=== PATIENT | female | born 1945 | race Caucasian/White ===

== ENCOUNTER 2023-04-06 13:36 | Outpatient (OUT) | payer MEDICARE, SELFPAY ==
--- NOTE | 2023-04-06 13:41 | MM_ITS ---
Patient: NAT REYNAGA Exam Date: 04/06/2023 : 1945 Gender:F Ordering : DR IMER ALVAREZ Admission #: [id number] Family : Order #: [id number] CLICK HERE TO VIEW EXAM RADIOLOGY REPORT PROCEDURE: MM TOMOSYNTHESIS SCREENING BI COMPARISON: MG MAMM SCREEN 3D RUPAL CAD, 03/27/2022. INDICATIONS: Screening mammogram Z12.31 Calculator Name NCI Breast Cancer Risk Assessment Tool 5 Year Breast Cancer Risk 1.60% Lifetime Breast Cancer Risk 3.10% Personal Breast Cancer No Personal Ovarian Cancer No Treatments None Family Cancers None LOCATION: [facility] BREAST COMPOSITION: Almost entirely fatty. FINDINGS: DIAGNOSTIC CATEGORY 1--NEGATIVE. RIGHT BREAST: No significant suspicious finding. No significant change has occurred. LEFT BREAST: No significant suspicious finding. No significant change has occurred. RECOMMENDATIONS: ROUTINE MAMMOGRAM AND CLINICAL EVALUATION IN 12 MONTHS. PLEASE NOTE: A NORMAL MAMMOGRAM DOES NOT EXCLUDE THE POSSIBILITY OF BREAST CANCER. A CLINICALLY SUSPICIOUS PALPABLE LUMP SHOULD BE BIOPSIED. Dictated by: Hiro Tran M.D. on 04/06/2023 at 15:37 Approved by: Hiro Tran M.D. on 04/06/2023 at 15:39
== END 2023-04-06 13:37 ==
LOC: MAMMO 13:36
PROVIDERS: PCP Internal Medicine; Visit Provider Internal Medicine
DX: Z12.31 Encounter for screening mammogram for malignant neoplasm of breast (principal)
CPT/HCPCS: 77063; 77067

== ENCOUNTER 2023-05-25 16:37 | Outpatient (OUT) | payer MEDICARE, SELFPAY ==
[2023-05-25 17:03] LABS: Bilirubin Urine NEGATIVE (NEGATIVE); Blood Urine TRACE-I (NEGATIVE); Clarity Urine CLEAR (CLEAR); Color Urine LT. YELLOW (YELLOW); Glucose Urine UA NEGATIVE (NEGATIVE); Ketones Urine NEGATIVE (NEGATIVE); Leukocyte Esterase Urine NEGATIVE (NEGATIVE); Nitrite Urine NEGATIVE (NEGATIVE); Protein Urine NEGATIVE (NEG/TRACE); Specific Gravity Urine 1.015 (1.005-1.025); Urobilinogen Urine 0.2 EU/dL (0.2-1.0); pH Urine 5.5 (5.0-9.0)
[2023-05-25 17:10] LABS: RBC Urine 0-2 #/HPF (0-2); WBC Urine NONE SEEN #/HPF (NONE SEEN)
[2023-05-25 17:11] LABS: Bacteria Urine TRACE #/HPF (NONE SEEN); Cast Seen? NONE SEEN #/LPF (NONE SEEN); Crystals Seen? None Seen #/HPF (None Seen); Mucus Urine NONE SEEN (NONE SEEN); Squamous Epithelial Cell Urine FEW #/LPF (NONE/RARE)
== END 2023-05-25 16:38 | disposition home or self-care (01) ==
LOC: LAB 16:37
PROVIDERS: PCP Internal Medicine
DX: R35.0 Frequency of micturition (principal)
CPT/HCPCS: 81001; 87086

== ENCOUNTER 2023-08-27 11:55 | Emergency (ER) | payer MEDICARE, SELFPAY ==
[2023-08-27 12:07] VITALS: BP 131/80; PULSE 56; RESP 16; TEMP 36.8; O2SAT 99; BMI 26.0
--- NOTE | 2023-08-27 12:12 | XR_ITS ---
The [address] [address] Patient Name: NAT REYNAGA MRN: [id number] date: 1945 Sex: F Assigned Patient Location: ED.MAIN Current Patient Location: ER Accession/Order Number: [id number] Exam Date: 08/27/2023 12:25 Report Date: 08/27/2023 12:45 At the request of: IMER OCHOA Procedure: XR wrist LT min 3V PROCEDURE: XR wrist LT min 3V HISTORY: fall wrist pain COMPARISON: None. FINDINGS: BONES:Nondisplaced fracture of the radial ulnar styloid process with extension into the articular surface. Unremarkable ulna and ulnar styloid process. Intact appearance of the carpal bones and radiocarpal joint. SOFT TISSUES:No visible soft tissue swelling. EFFUSION:None visible. OTHER: Negative. XR/XR wrist LT min 3V IMPRESSION: 1. Acute, nondisplaced fracture of the radial styloid process. Electronically authenticated by: JOSE ALLEN Date: 08/27/2023 12:45
--- NOTE | 2023-08-27 13:00 | PC.NURSE ---
pt has visible swelling noted to left wrist, pt c/o pain but does not give pain describing number associated.
[2023-08-27 13:14] VITALS: BP 136/88; PULSE 60; RESP 16; O2SAT 98
--- NOTE | 2023-08-27 13:27 | ED_ITS ---
Documented by User: SPIKE Dewitt 08/27/23 14:06 HPI - Extremity Injury (Upper) General Chief Complaint: Fall Stated Complaint: UPPER EXTREMITY INJURY TO LEFT WRIST Time Seen by Provider: 08/27/23 13:10 Source: patient and family Mode of arrival: walk-in Limitations: no limitations History of Present Illness HPI narrative: patient is a 78-year-old female presents the emergency department with her family member for the evaluation of left wrist pain after a fall. Patient has a history of brain injury/dementia and her daughter cares for her. Patient was attempting to walk to her daughter's home in between a car and the garage and fell, injuring her left wrist. Family member states that she watched the camera footage outside the home showing that the patient fell with an outstretched left wrist, possibly against the vehicle and possibly on the ground, she did not appear to have a head injury and definitely had no loss of consciousness. She is ambulating without difficulty. Family member has not noticed any evidence of head injury, patient is on Plavix, there have been no areas of bleeding. Patient has not complained of pain anywhere else. No medications given prior to arrival other than regular Tylenol. Patient is right-hand dominant. Related Data Previous Rx's Medication Instructions Recorded tramadol 50 mg tablet 50 mg PO Q4H PRN pain #15 tabs 08/27/23 Allergies Allergy/AdvReac Type Severity Reaction Status Date / Time codeine Allergy Unknown Verified 08/27/23 12:11 Sulfa (Sulfonamide Allergy Verified 08/27/23 12:11 Antibiotics) Review of Systems ROS Constitutional Denies: fever or chills Ears, nose, mouth, and throat Denies: dry mouth Cardiovascular Denies: chest pain Respiratory Denies: shortness of breath Gastrointestinal Denies: nausea or vomiting Musculoskeletal Reports: extremity pain; Denies: back pain or neck pain Neurological Denies: headache Hematologic/Lymphatic Reports: easy bruising and easy bleeding PFSH PFSH Social History Smoking status: Former smoker Exam Narrative Exam Narrative: Gen.: Awake, alert, in no distress; sitting comfortably in a bedside chair with left arm propped on a pillow Head: Normocephalic, atraumatic ENT: Moist mucous membranes; no evidence of head or facial injury, C-spine is nontender Respiratory: No respiratory distress, lungs clear bilaterally Cardio: Regular rate and rhythm Gastrointestinal: pelvis is stable, hips nontender Back: No bony tenderness of the T-spine or L-spine Extremities: left wrist is mildly edematous, limited flexion and extension at the left wrist, no obvious deformity. 2+ left radial pulse. Psych: Normal mood and affect Neuro: at mental baseline Skin: Warm, dry, intact Constitutional Vital Signs, click to edit/add: Last Vital Signs Temp 98.2 F 08/27/23 12:07 Pulse 60 08/27/23 13:14 Resp 16 08/27/23 13:14 BP 136/88 08/27/23 13:14 Pulse Ox 98 08/27/23 13:14 O2 Del Method Room Air 08/27/23 13:14 Course Vital Signs Vital signs: Vital Signs Temperature 98.2 F 08/27/23 12:07 Pulse Rate 56 L 08/27/23 12:07 Respiratory Rate 16 08/27/23 12:07 Blood Pressure 131/80 08/27/23 12:07 Pulse Oximetry 99 08/27/23 12:07 Oxygen Delivery Method Room Air 08/27/23 12:07 Temperature 98.2 F 08/27/23 12:07 Pulse Rate 60 08/27/23 13:14 Respiratory Rate 16 08/27/23 13:14 Blood Pressure 136/88 08/27/23 13:14 Pulse Oximetry 98 08/27/23 13:14 Oxygen Delivery Method Room Air 08/27/23 13:14 MDM - Extremity Injury (Upper) MDM Narrative Medical decision making narrative: x-rays with nondisplaced radial styloid fracture. Patient's family member requested that due to her functioning and need for care in the home, the patient be placed only in a Velcro wrist splint. She will follow closely with orthopedics, patient has a previous wrist fracture and family member states that she was treated conservatively with a Velcro wrist splint and did very well. She did not tolerate a cast/OCL splint. As the fracture is nondisplaced, this is appropriate and a Velcro wrist and was placed at her request. Patient was provided with copies of her x-rays as well as a dictated report. Follow-up with orthopedics and return to the Emergency Room if symptoms change or worsen. Prescription of tramadol was given for home if needed, although daughter states that typically the patient tolerates Tylenol without difficulty. She is neurovascularly intact at discharge. Medical Records Attestation: I reviewed the patient's medical records. Imaging Data XR wrist: Attestation: I have reviewed the pertinent imaging results. Radiologist's impression: Procedure: XR wrist LT min 3V PROCEDURE: XR wrist LT min 3V HISTORY: fall wrist pain COMPARISON: None. FINDINGS: BONES:Nondisplaced fracture of the radial ulnar styloid process with extension into the articular surface. Unremarkable ulna and ulnar styloid process. Intact appearance of the carpal bones and radiocarpal joint. SOFT TISSUES:No visible soft tissue swelling. EFFUSION:None visible. OTHER: Negative. IMPRESSION: 1. Acute, nondisplaced fracture of the radial styloid process. Electronically authenticated by: HIRO ALLEN Date: 08/27/2023 12:45 Discharge Plan Discharge Chief Complaint: Fall Clinical Impression: Closed fracture of radial styloid Patient Disposition: Home, Self-Care Time of Disposition Decision: 13:24 Condition: Good Prescriptions / Home Meds: New tramadol 50 mg tablet 50 mg PO Q4H PRN (Reason: pain) Qty: 15 0RF Rx Instructions: DX: M25.532 Instructions: Wrist Fracture in Adults (ED) Stand Alone Forms: Portal Instructions Referrals: IMER ALVAREZ [Primary Care Provider] - 1 week Hiro Ruiz MD [Physician] - 1 week Discharge Date/Time: 08/27/23 13:39 Documented by User: Imer Luna MD 08/27/23 16:14 HPI - Extremity Injury (Upper) General Chief Complaint: Fall Stated Complaint: UPPER EXTREMITY INJURY TO LEFT WRIST Time Seen by Provider: 08/27/23 13:10 Related Data Previous Rx's Medication Instructions Recorded tramadol 50 mg tablet 50 mg PO Q4H PRN pain #15 tabs 08/27/23 Allergies Allergy/AdvReac Type Severity Reaction Status Date / Time codeine Allergy Unknown Verified 08/27/23 12:11 Sulfa (Sulfonamide Allergy Verified 08/27/23 12:11 Antibiotics) PFSH PFS Social History Smoking status: Former smoker Exam Constitutional Vital Signs, click to edit/add: Last Vital Signs Temp 98.2 F 08/27/23 12:07 Pulse 60 08/27/23 13:14 Resp 16 08/27/23 13:14 BP 136/88 08/27/23 13:14 Pulse Ox 98 08/27/23 13:14 O2 Del Method Room Air 08/27/23 13:14 Course Vital Signs Vital signs: Vital Signs Temperature 98.2 F 08/27/23 12:07 Pulse Rate 56 L 08/27/23 12:07 Respiratory Rate 16 08/27/23 12:07 Blood Pressure 131/80 08/27/23 12:07 Pulse Oximetry 99 08/27/23 12:07 Oxygen Delivery Method Room Air 08/27/23 12:07 Temperature 98.2 F 08/27/23 12:07 Pulse Rate 60 08/27/23 13:14 Respiratory Rate 16 08/27/23 13:14 Blood Pressure 136/88 08/27/23 13:14 Pulse Oximetry 98 08/27/23 13:14 Oxygen Delivery Method Room Air 08/27/23 13:14 MDM - Extremity Injury (Upper) MDM Narrative Medical decision making narrative: x-rays with nondisplaced radial styloid fracture. Patient's family member requested that due to her functioning and need for care in the home, the patient be placed only in a Velcro wrist splint. She will follow closely with orthopedics, patient has a previous wrist fracture and family member states that she was treated conservatively with a Velcro wrist splint and did very well Patient would like to see Dr. Montes in the past, name and number are provided.. She did not tolerate a cast/OCL splint. As the fracture is nondisplaced, this is appropriate and a Velcro wrist and was placed at her reque st. Patient was provided with copies of her x-rays as well as a dictated report. Follow-up with orthopedics and return to the Emergency Room if symptoms change or worsen. Prescription of tramadol was given for home if needed, although daughter states that typically the patient tolerates Tylenol without difficulty. She is neurovascularly intact at discharge. I, Dr Luna, have reviewed the above progress note and course of action in the ER; agree with the above. I have personally seen and evaluated this patient, gone over history and physical, and discussed disposition and treatment plan with the patient. Discharge Plan Discharge Chief Complaint: Fall Clinical Impression: Closed fracture of radial styloid Patient Disposition: Home, Self-Care Time of Disposition Decision: 13:24 Condition: Good Prescriptions / Home Meds: New tramadol 50 mg tablet 50 mg PO Q4H PRN (Reason: pain) Qty: 15 0RF Rx Instructions: DX: M25.532 Instructions: Wrist Fracture in Adults (ED) Stand Alone Forms: Portal Instructions Referrals: IMER ALVAREZ [Primary Care Provider] - 1 week Hiro Ruiz MD [Physician] - 1 week Discharge Date/Time: 08/27/23 13:39
== END 2023-08-27 13:39 | disposition home or self-care (01) ==
PROVIDERS: Emergency Provider Emergency Medicine; PCP Internal Medicine
DX: S52.515A Nondisplaced fracture of left radial styloid process, initial encounter for closed fracture (principal); W19.XXXA Unspecified fall, initial encounter; F03.90 Unspecified dementia, unspecified severity, without behavioral disturbance, psychotic disturbance, mood disturbance, and anxiety; Z79.02 Long term (current) use of antithrombotics/antiplatelets; Z87.891 Personal history of nicotine dependence
CPT/HCPCS: 73110; 99283

== ENCOUNTER 2023-08-28 14:56 | Outpatient (OUT) | payer MEDICARE, SELFPAY ==
[2023-08-28 16:05] LABS: Free T4 0.81 ng/dL (0.76-1.46)
[2023-08-28 16:06] LABS: Free T3 1.61 pg/mL (2.18-3.98); Thyroid Stimulating Hormone 1.001 uIU/mL (0.358-3.740)
== END 2023-08-28 14:57 | disposition home or self-care (01) ==
LOC: LAB 14:56
PROVIDERS: PCP Internal Medicine
DX: E03.9 Hypothyroidism, unspecified (principal)
CPT/HCPCS: 36415; 84439; 84443; 84481

== ENCOUNTER 2024-02-22 18:01 | Inpatient (IN) | payer MEDICARE, SELFPAY ==
[2024-02-22] VITALS (19 sets, daily range): BP systolic 129–144; BP diastolic 59–71; PULSE 70–94; TEMP 36.3–36.7; O2SAT 92–99; BMI 32.1; BMI 33.2
--- NOTE | 2024-02-22 18:18 | ECG_ITS ---
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
--- OUTSIDE RECORDS SUMMARY | 2024-02-22 18:21 | XMS_ITS | CCD ---
Author Organization [facility] Care Team Providers Care Program Development Specialist Name Role Phone Jamal Alvarez Unavailable Unavailable Unavailable Ash Vance DO Primary Care Provider Ash Vance DO Primary Care Provider DO Jamal Alvarez Primary Care Provider DO Hermes Kennedy Attending Provider [phone] DIAB ., BRUCE Admitting Unavailable DIAB ., BRUCE Attending Unavailable DR JAMAL ALVAREZ Primary Care Unavailable DIAB ., BRUCE Consulting Unavailable ANTONIO, DR WILLAMS Admitting Unavailable DR JAMAL ALVAREZ Attending Unavailable QUINTIN LEROY Primary Care Unavail able DR JEANETH CHRISTIANSON V Consulting Unavailable DR JAMAL ALVAREZ Consulting Unavailable DR JAMAL ALVAREZ Admitting Unavailable DR JAMAL ALVAREZ Attending Unavailable QUINTIN LEROY Primary Care Unavail able DR JAMAL LAVAREZ Consulting Unavailable DO Jamal Alvarez Primary Care Provider MD Valdez Castro Attending Provider DO Jamal Alvarez Attending Provider Jamal Alvarez DO Primary Care Provider DO Jamal Alvarez Primary Care Provider DO Jamal Alvarez Attending Provider CORNELIUS Pearce Attending Provider JAMAL ALVAREZ Attending Unavailable JAMAL ALVAREZ Referring Unavailable IRVING DUVALL Attending Unavailable EMMA MELISSA Referring Unavailable JESUS ROBERSON Attending Unavailable JESUS ROBERSON Referring Unavailable JAMAL ALVAREZ Referring Unavailable Jamal Alvarez Primary Care Unavailable Moosa, Valdez F Admitting Unavailable Moosa, Valdez F Attending Unavailable Jamal Alvarez Primary Care Unavailable Jamal Alvarez Attending Unavailable Jamal Alvarez Admitting Unavailable Jamal Alvarez Primary Care Unavailable Jamal Alvarez Attending Unavailable Jamal Alvarez Admitting Unavailable Nallely Pearce Admitting Unavailable Nallely Pearce Attending Unavailable Jamal Alvarez Primary Care Unavailable Moosa, Valdez F Admitting Unavailable Moosa, Valdez F Attending Unavailable Jamal Alvarez Primary Care Unavailable UBALDO HDZ Attending Unavailable JAMAL ALVAREZ Primary Care Unavailabl e GLENNIE, DEE Referring Unavailable JAMAL ALVAREZ Primary Care Unavailabl e GLENNIE, DEE Referring Unavailable BUNTING, ASH RAY Primary Care Unavailable KAYCEE, DEE Referring Unavailable BUNTING, AHS RAY Primary Care Unavailable DO Jamal Alvarez Primary Care Provider [phone] DO Jamal Alvarez Attending Provider Allergies Allergy Classification Reported Allergen(s) Allergy Type Date of Onset Reaction(s) Facility (10 sources) Codeine; Translations: [codeine] Drug Allergy 3 Unknown Reaction [facility] (4 sources) Penicillins; Translations: [Penicillins] Allergy to drug (finding) 9 [facility] (7 sources) Propoxyphene; Translations: [propoxyphene] Drug Allergy 3 Other: See Comments [facility] (3 sources) Sulfamethoxazole ; Translations: [sulfa] Drug Allergy [facility] DO Work Phone: (10 sources) Latex; Translations: [LATEX] Propensity to adverse reactions [address] [facility] (1 source) Penicillins Propensity to adverse reactions [address] [facility] (10 sources) [place]; Translations: [STRAWBERRIES] Propensity to adverse reactions [address] [facility] (17 sources) Sulfonamides (Antibiotic); Translations: [SULFA (SULFONAMIDE ANTIBIOTICS)] Propensity to adverse reactions 9 Rash [facility] (10 sources) Propoxyphene N-Acetaminophen; Translations: [PROPOXYPHENE N-ACETAMINOPHEN] Drug Allergy 0 Rash [facility] (8 sources) Penicillins Propensity to adverse reactions 9 Rash [facility] (7 sources) strawberry allergenic extract Drug Allergy 3 Nausea [facility] (1 source) Penicillins Drug allergy (disorder) [facility] (1 source) Sulfonamides (Antibiotic) Drug allergy (disorder) [facility] (10 sources) Midazolam Drug Allergy 3 Mental Status Change [facility] (6 sources) opiates Propensity to adverse reactions 3 Confusion [facility] (4 sources) Morphinan opioid Drug Allergy 3 Mental Status Change, Unknown [facility] Medications Current Medications Medication Drug Class(es) Dates Sig (Normalized) Sig (Original) cholecalciferol 0.05 mg oral capsule (14 sources) Vitamin D Start: 10-17-2021 take 1 capsule by mouth once daily Cholecalciferol (Vitamin D3) (Vitamin D3) 50 mcg (2,000 unit) Capsule Active 50 MCG PO Daily October 17, 2021 1:00am Comment on above: Daily clopidogrel 75 mg oral tablet (19 sources) P2Y12 Platelet Inhibitor Start: 06-29-2009 take 75 mg by mouth once daily Clopidogrel Active 75 MG PO Daily October 17, 2021 1:00am Comment on above: Take one(1) tablet d aily. desmopressin acetate 0.2 mg oral tablet (1 source) Vasopressin Analog, Factor VIII Activator Start: 02-21-2024 take 0.2 mg by mouth once daily at bedtime Desmopressin Active 0.2 MG PO Daily at bedtime February 21, 2024 12:00am estradiol 0.1 mg/ml vaginal cream (14 sources) Estrogen Start: 12-26-2022 Estradiol Active 1 APPLICATOR VAGINAL Daily December 26, 2022 1:00am Start: 06-11-2020 End: 05-16-2024 estradiol (ESTRACE) 0.01 % ( 0.1 mg/gram) vaginal cream Use 1 g vaginally. 0 06/11/2020 05/16/2024 Active Start: 06-11-2020 Estradiol 0.1 MG/GM Vaginal Cream USE DIRECTED. Quantity: 0 Refills: 0 Ordered: 27-Oct-2020 DO Start : 11-Jun-2020 Active Comment on above: Use 1 g vaginally. ibandronic acid 150 mg oral tablet (14 sources) Bisphosphonate Start: 11-05-2019 take 1 tablet by mouth every 30 days Ibandronate (Boniva) 150 mg Tablet Active 150 MG PO Q30D October 17, 2021 1:00am on of each month Start: 11-05-2019 take 1 tablet by marilyn th every month Ibandronate Sodium 150 MG Oral Tablet TAKE 1 TABLET BY MOUTH ONCE A MONTH Quantity: 3 Refills: 0 Ordered: 09-Aug-2021 DO Start : 16-Feb-2021 Active Comment on above: Take 1 tablet by marilyn th. levothyroxine sodium 0.075 mg oral tablet (19 sources) l-Thyroxine Start: 1 take 75 ug by mouth once daily in the morning Levothyroxine Active 75 MCG PO Every morning October 17, 2021 1:00am Start: 05-23-2020 levothyroxine (SYNTHROID) 50 mcg tablet 50 mcg. 0 05/23/2020 Active Comment on above: 50 mcg. loperamide hydrochloride 2 mg oral capsule (12 sources) Opioid Agonist Start: 1 End: 4 take 2 mg by mouth once daily in the morning Loperamide Active 2 MG PO Every morning February 21, 2024 10:47am Comment on above: Every morning Nebulizer and Compressor For Neb (2 sources) Start: 4 End: 4 Nebulizer and Compressor For Neb 1 Each as needed for up to 1 day. Use as directed. 1 Each 0 02/15/2024 02/16/2024 Active Comment on above: 1 Each as needed for up to 1 day. Use as directed. 24 hr oxybutynin chloride 10 mg extended release oral tablet (19 sources) Cholinergic Muscarinic Antagonist Start: 1 take 1 tablet by mouth once daily at bedtime Oxybutynin Chloride (Ditropan Xl) 10 mg Tablet Extended Release 24hr Active 10 MG PO Daily at bedtime October 17, 2021 1:00am Start: 01-31-2021 take 1 tablet by marilyn th every twenty-four hours at bedtime Oxybutynin Chloride ER 10 MG Oral Tablet Extended Release 24 Hour TAKE 1 TABLET BY MOUTH AT BEDTIME Quantity: 90 Refills: 0 Ordered: 01-Aug-2021 DO Start : 31-Jan-2021 Active Start: 06-29-2009 OXYBUTYNIN CHL ORIDE 5 MG/5 ML SYRUP Take one(1) tablet two(2) times daily. 0 06/29/2009 Active Comment on above: Take one(1) tablet t wo(2) times daily. Completed/Discontinued Medications Medication Drug Class(es) Dates Sig (Normalized) Sig (Original) sensor 200 actuat albuterol 0.09 mg/actuat dry powder inhaler (9 sources) beta2-Adrenergic Agonist End: 12-28-2023 albuterol sulfate 90 mcg/actuation aebs Inhale as instructed. 0 12/28/2023 Discontinued Ventolin HFA 108 (90 Base) MCG/ACT Inhalation Aerosol Solution As directed. Quantity: 0 Refills: 0 Ordered: 21-Oct-2021 DO Active Comment on above: Inhale as instructed . albuterol 0.833 mg/ml / ipratropium bromide 0.167 mg/ml inhalation solution (9 sources) Anticholinergic, beta2-Adrenergic Agonist Start: 06-29-20 End: 12-28-19 24 take 3 mL by inhalation every six hours as needed ipratropium-albutero l (DUONEB) 0.5 mg-3 mg(2.5 mg base)/3 mL nebu Inhale 3 mL as instructed every 6 hours as needed. 90 Vial 5 06/29/2020 12/28/2023 Discontinued Start: 06-29-2020 Ipratropium-Al buterol 0.5-2.5 (3) MG/3ML Inhalation Solution As directed. Quantity: 0 Refills: 0 Ordered: 27-Oct-2020 DO Start : 29-Jun-2020 Active Comment on above: Inhale 3 mL as instr ucted every 6 hours as needed. Calcium (9 sources) Phosphate Binder, Calcium Start: 06-29-20 CALCIUM 500 MG TAB Take one(1) tablet twice daily. 0 06/29/2009 Active Comment on above: Take one(1) tablet t wice daily. calcium carbonate 1250 mg / cholecalciferol 125 unt oral tablet (7 sources) Vitamin D Start: 10-17-20 End: 01-10-20 take 1 tablet by mouth once daily Calcium Carbonate-Vitamin D3 Discontinued 1 TAB PO Daily October 17, 2021 1:00am January 09, 2023 11:55am cephalexin 500 mg oral capsule (7 sources) Cephalosporin Antibacterial Start: 10-25-20 End: 12-26-19 take 500 mg by mouth twice daily Cephalexin Discontinued 500 MG PO Twice daily 14 October 25, 2021 1:00am December 26, 2022 3:00pm diphenoxylate HCl/atropine (LOMOTIL ORAL) (6 sources) End: 12-28-19 diphenoxylate HCl/atropine (LOMOTIL ORAL) Take by mouth. 0 12/28/2023 Discontinued diphenoxylate HC l/atropine (LOMOTIL ORAL) Take by mouth. 0 Active Comment on above: Take by mouth. docusate sodium 100 mg oral capsule (6 sources) Start: 06-29-20 End: 12-28-19 docusate sodium(COLACE 100 MG CAP) Take one(1) tablet daily 0 06/29/2009 12/28/2023 Discontinued Comment on above: Take one(1) tablet d aily escitalopram 20 mg oral tablet (6 sources) Serotonin Reuptake Inhibitor Start: 06-29-20 End: 12-28-19 escitalopram oxalate(LEXAPRO 20 MG TAB) Take one(1) tablet daily. 0 06/29/2009 12/28/2023 Discontinued Comment on above: Take one(1) tablet d aily. fexofenadine hydrochloride 180 mg oral tablet (7 sources) Histamine-1 Receptor Antagonist Start: 10-17-20 End: 12-26-19 take 180 mg by mouth once daily Fexofenadine Discontinued 180 MG PO Daily October 17, 2021 1:00am December 26, 2022 3:01pm fluconazole 150 mg oral tablet (3 sources) Azole Antifungal Start: 07-17-20 take 1 tablet by mouth once daily Fluconazole 150 MG Oral Tablet TAKE 1 TABLET DAILY DIRECTED. Quantity: 0 Refills: 0 Ordered: 17-Jul-2021 DO Start : 17-Jul-2021 Active hydrOXYzine hydrochloride 25 mg oral tablet (10 sources) Antihistamine Start: 08-16-20 End: 02-21-20 take 25 mg by mouth every eight hours Hydroxyzine Hcl Discontinued 25 MG PO Q8H October 17, 2021 1:00am February 21, 2024 10:47am liothyronine sodium 0.005 mg oral tablet (11 sources) l-Triiodothyronine Start: 10-25-20 take 1 tablet by mouth every twelve hours liothyronine (CYTOMEL) 5 mcg tablet Take 1 tablet by mouth every 12 hours. 0 10/25/2023 Active Start: 12-26-2022 take 5 ug by mouth twice daily Liothyronine Active 5 MCG PO Twice daily December 26, 2022 1:00am Comment on above: Take 1 tablet by marilyn th every 12 hours. LORazepam 1 mg oral tablet (6 sources) Benzodiazepine Start: 06-29-20 End: 12-28-19 lorazepam(ATIVAN 1 MG TAB) Take one(1) tablet daily at hs. 0 06/29/2009 12/28/2023 Discontinued Comment on above: Take one(1) tablet d aily at hs. lovastatin 40 mg oral tablet (6 sources) HMG-CoA Reductase Inhibitor Start: 06-29-20 End: 12-28-19 lovastatin(MEVACOR 40 MG TAB) Take one(1) tablet daily at bedtime. 0 06/29/2009 12/28/2023 Discontinued Comment on above: Take one(1) tablet d aily at bedtime. Multi Vitamin TABS (3 sources) Multi Vitamin TA BS TAKE 1 TABLET DAILY. Quantity: 0 Refills: 0 Ordered: 21-Oct-2021 DO Active Multivitamin preparation (7 sources) Start: 10-17-20 End: 12-26-19 take 1 tablet by mouth once daily Multivitamin Discontinued 1 TAB PO Daily October 17, 2021 1:00am December 26, 2022 3:02pm Start: 10-17-2021 End: 12-26-2022 take 1 tablet by mouth once daily Multivitamin Discontinued 1 TAB PO Daily October 17, 2021 12:00am December 26, 2022 2:02pm MULTIVITAMIN TAB (9 sources) Start: 06-29-2009 MULTIVITAMIN T AB Take one(1) tablet daily. 0 06/29/2009 Active Comment on above: Take one(1) tablet d aily. omeprazole 40 mg delayed release oral capsule (14 sources) Proton Pump Inhibitor Start: 08-09-2021 End: 12-26-2022 take 40 mg by mouth once daily Omeprazole Discontinued 40 MG PO Daily October 17, 2021 1:00am December 26, 2022 3:02pm Comment on above: Take by mouth at bed time as needed. simvastatin 20 mg oral tablet (16 sources) HMG-CoA Reductase Inhibitor Start: 02-16-2021 End: 02-21-2024 take 20 mg by mouth once daily at bedtime Simvastatin Discontinued 20 MG PO Daily at bedtime October 17, 2021 1:00am February 21, 2024 10:48am Start: 05-23-2020 End: 12-28-2023 take 1 tablet by mouth once daily at bedtime simvastatin (ZOCOR) 40 mg tablet Take 40 mg by mouth daily at bedtime. 0 05/23/2020 12/28/2023 Discontinued Comment on above: Take 40 mg by mouth daily at bedtime. sodium chloride 30 mg/ml inhalation solution (2 sources) Start: 02-15-2024 sodium chloride (NEBUSAL) 3 % nebulizer solution Use 2 mL via nebulizer two times a day. 360 mL 3 02/15/2024 Active Comment on above: Use 2 mL via nebuliz er two times a day. thymol/chlorophyllin (CHLOROPHYLL ORAL) (6 sources) End: 12-28-2023 thymol/chlorophyllin (CHLOROPHYLL ORAL) Take by mouth. 0 12/28/2023 Discontinued thymol/chlorophy llin (CHLOROPHYLL ORAL) Take by mouth. 0 Active Comment on above: Take by mouth. tiZANidine 4 mg oral tablet (13 sources) Central alpha-2 Adrenergic Agonist Start: End: take 1 tablet by mouth twice daily Tizanidine (Zanaflex) 4 mg Tablet Discontinued 4 MG PO Twice daily October 17, 2021 1:00am February 21, 2024 10:48am Start: 04-11-2020 End: 12-28-2023 tiZANidine HCl 4 mg capsule Take 4 mg by mouth. 0 04/11/2020 12/28/2023 Discontinued Comment on above: Take 4 mg by mouth. traMADol hydrochloride 50 mg oral tablet (7 sources) Opioid Agonist Start: 10-25-2021 End: 12-26-2022 take 50 mg by mouth every six hours Tramadol Discontinued 50 MG PO Q6H 8 2 October 25, 2021 1:00am December 26, 2022 3:02pm Problems Active Problems Problem Classification Problem Date Documented Da te Episodic/Chronic Aspiration pneumonitis; food/vomitus (1 source) Aspiration pneumonitis; Translations: [Pneumonitis due to inhalation of food and vomit] 12-28-2023 Episodic Cardiac dysrhythmias (3 sources) Sinus bradycardia; Translations: [Other specified cardiac dysrhythmias] Episodic Chronic obstructive pulmonary disease and bronchiectasis (2 sources) Bronchiectasis; Translations: [Bronchiectasis, uncomplicated] 12-28-2023 Chronic Chronic obstructive pulmonary disease and bronchiectasis (2 sources) Bronchitis, not specified as acute or chronic; Translations: [Bronchitis, not specified as acute or chronic] 02-13-2024 Episodic Diabetes mellitus with complications (2 sources) Disorder of nervous system due to type 2 diabetes mellitus; 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] Chronic Disorders of lipid metabolism (1 source) Mixed hyperlipidemia; Translations: [Mixed hyperlipidemia] Chronic Esophageal disorders (2 sources) Gastroesophageal reflux disease; Translations: [Gastro-esophageal reflux disease without esophagitis] 02-21-2024 Chronic Intracranial injury (1 source) Traumatic brain injury with loss of consciousness; Translations: [Unspecified intracranial injury with loss of consciousness of unspecified duration, sequela] 12-28-2023 Episodic Menopausal disorders (1 source) Hormone replacement therapy; Translations: [HORMONE REPLACEMENT THERAPY] Onset: 3 Episodic Mycoses (2 sources) Onychomycosis due to dermatophyte ; Translations: [Tinea unguium] Episodic Other aftercare (1 source) Other oil heaterman (current) drug therapy; Translations: [OTH FOOTWEAR MACHINERY INSTRUCTOR CURRENT DRUG THERAPY] Onset: 3 Episodic Other gastrointestinal disorders (4 sources) Constipation, unspecified; Translations: [CONSTIPATION UNSPECIFIED] Onset: 3 Episodic Other gastrointestinal disorders (1 source) Dysphagia; Translations: [Dysphagia, unspecified] 02-21-2024 Episodic Other gastrointestinal disorders (1 source) Dysphagia, unspecified; Translations: [Dysphagia, unspecified] 02-21-2024 Episodic Other lower respiratory disease (2 sources) Interstitial lung disease; Translations: [Interstitial pulmonary disease, unspecified] 12-25-2023 Chronic Other lower respiratory disease (2 sources) Interstitial pulmonary disease, unspecified; Translations: [Interstitial pulmonary disease (HCC)] Onset: 4 Chronic Other lower respiratory disease (2 sources) Dyspnea; Translations: [Shortness of breath] 12-25-2023 Episodic Other lower respiratory disease (1 source) Shortness of breath; Translations: [Shortness of breath] Onset: 4 Episodic Other nervous system disorders (7 sources) Acute postoperative pain; Translations: [Other acute postprocedural pain] 10-25-2021 Episodic Other nutritional; endocrine; and metabolic disorders (3 sources) Obesity; Translations: [Obesity, unspecified] Chronic Other upper respiratory disease (2 sources) Feeling of lump in throat; Translations: [Globus sensation] 02-21-2024 Episodic Screening and history of mental health and substance abuse codes (4 sources) Ex-smoker; Translations: [Personal history of tobacco use] Onset: 3 Episodic Comment on above: Quit 1979; Thyroid disorders (2 sources) Hypothyroidism; Translations: [Hypothyroidism, unspecified] Chronic Unclassified (1 source) Acute cough; Translations: [Acute cough] Onset: 4 Past or Other Problems Problem Classification Problem Date Documented Da te Episodic/Chronic Genitourinary symptoms and ill-defined conditions (5 sources) Frequency of micturition; Translations: [Urgency of urination] Onset: 04-05-2022 Episodic Other lower respiratory disease (9 sources) Cough; Translations: [Cough] Onset: 06-29-2020 06-29-2020 Episodic Other screening for suspected conditions (not mental disorders or infectious disease) (4 sources) Encounter for screening mammogram for malignant neoplasm of breast; Translations: [ENC SCR MAMMO MALIG NEOPLASM BREAST] Onset: 03-27-2022 Episodic Results Test Name Value Interpretation Reference Range Facility XR chest 2V*on 02-13-2024 XR chest 2V* [facility] [place] [address] XRay Report Signed Patient: Karuna Reynaga MR#: [id number] : 1945 Acct:[id number] Age/Sex: 79 / F ADM Date: 02/13/24 [facility] Room: Type: [facility] Attending Dr: Nallely SHIELDS Copies to: CORNELIUS Eagle Ordering Provider: CORNELIUS Eagle Date of Service: 02/13/24 XR/XR chest 2V*: COUGH XR chest 2V* 02/13/2024 6:53 PM SIGNS AND SYMPTOMS: Productive cough PROTOCOL: Frontal and lateral radiographs of the chest COMPARISON: 11/21/2023 FINDINGS: The trachea is midline. The heart and mediastinal structures are within normal limits. Mild chronic-appearing interstitial changes are noted. The lung parenchyma is clear, otherwise. The bony thorax is intact. Degenerative changes are noted in the thoracic spine. Postoperative changes are partly visualized in the left humerus. XR/XR chest 2V* IMPRESSION: Mild chronic-appearing interstitial changes are noted. The lung parenchyma is clear, otherwise. Impression dictated by: Emma Muñoz M.D.02/13/2024 7:24 PM Dictation Location: [facility] [address] Transcribed By: [facility] 02/13/241923 Dictated By: Emma Muñoz II, MD 02/13/241921 Signed By: 02/13/241923 Normal [facility] Juany 01-22-2024 LOPEZ Telephone (DEVON) KARUNA REYNAGA ([id number]) 1945 F Date Time Provider Department 01/22/24 UBALDO HDZ During your visit today, we recorded the following information about you: John Veras 01/22/2024 2:49 PM Signed Imported external notification of equipment delivery from [employer], dated 01/16/2024. Please allow time delay for documents to appear in Epic (Scanned Documents Tab). Images can take up to 24 hours to appear in Epic. Allergies As of Date: 01/22/2024 Noted Allergy Reaction DARVOCET A500 (PROPOXYPHENE N-ROB*06/29/2020 2 - Rash LATEX 06/29/2009 2 - Rash MIDAZOLAM 01/09/2023 1 - Mental Status Change OPIOIDS - MORPHINE ANALOGUES 12/26/2022 1 - Mental Status Change 16 - Unknown Comments: Other Reaction(s): unknown PENICILLINS 06/29/2009 2 - Rash PROPOXYPHENE 08/21/2023 14 - Other: See Comments Comments: Other Reaction(s): unknown STRAWBERRIES 06/29/2009 2 - Rash SULFA (SULFONAMIDE ANTIBIOTICS) 06/29/2009 2 - Rash Date Reviewed: 12/28/2023 Reviewed by: Millie London MA - Fully Assessed Reason for Visit: Received Outside Medical Records [[id number]] Prescriptions as of 01/23/2024 - Cholecalciferol, Vitamin D3, 50 mcg (2,000 unit) cap Daily - estradiol (ESTRACE) 0.01 % (0.1 mg/gram) vaginal cream Use 1 g vaginally. - Ibandronate 150 mg tablet Take 1 tablet by mouth. - TRUEPLUS LANCETS 33 gauge USE TO TEST ONCE DAILY EVERY MORNING. - liothyronine (CYTOMEL) 5 mcg tablet Take 1 tablet by mouth every 12 hours. - loperamide (IMODIUM) 2 mg cap(s) Every morning - omeprazole (PRILOSEC) 40 mg capsule Take by mouth at bedtime as needed. - levothyroxine (SYNTHROID) 50 mcg tablet 50 mcg. - clopidogrel bisulfate(PLAVIX 75 MG TAB) Take one(1) tablet daily. - OXYBUTYNIN CHLORIDE 5 MG/5 ML SYRUP Take one(1) tablet two(2) times daily. - CALCIUM 500 MG TAB Take one(1) tablet twice daily. - MULTIVITAMIN TAB Take one(1) tablet daily. Problem List As Of Date 01/22/2024 Noted Resolved Cough [R05.9] 06/29/2020 Encounter Status:Closed by JOHN VERAS on 01/23/24 [facility] CNOVon 12-28-2023 CNOV Office Visit (PULMMN) KARUNA REYNAGA ([id number]) 1945 F Date Time Provider Department 12/28/23 1:30 PM UBALDO HDZ PULMMN During your visit today, we recorded the following information about you: Temperature Pulse Respiration Blood pressure 97.6 degrees 67/minute 16/minute 137/65 Weight 79.4 kg Ubaldo Hdz MD 2024 1:33 PM [facility] [place] Karuna Reynaga is a 78 year old female here for evaluation by the [facility] Interstitial Lung Disease Team. Consultation requested by self for an opinion regarding ILD and my final recommendations will be communicated back to the requesting physician by way of shared Medical record or letter via US mail. Referring diagnosis: Undetermined HISTORY OF PRESENT ILLNESS: Initially saw Dr. Alcala in 2019 for evaluation of ILD. She had a cough and dyspnea on exertion. She had dysphagia and there was concern for aspiration-related injury. She had a 10 pk yr history of smoking but quit in 1979. Her PFTs were not valid due to technique. Her CT from 2013 showed emphysematous changes and post-inflammatory changes in the right apex and this was unchanged on a repeat CT in 2019. There was minimal interstitial changes in the superior segment of the RLL. There was discussion of bronchoscopy and workup for aspiration but this was deferred. She was started on nebulizer therapy due to inability to use an inhaler. She did really well for a while. For the past 6 months her cough has gotten worse and it seems more productive. She normally has crackles in just one lung but now she has them on both sides. She is no longer using the nebulizer machine. She has been taking PPI and allergy medicine with no improvement. Past ILD History: Date of symptom onset: 2018 Date of Diagnosis: Pending/unconfirmed Diagnosis confirmed by: Provisional diagnosis Immediate relative with ILD: None Pulmonary hypertension: No suspicion Past ILD Therapies: Current ILD medications: No medication Past ILD medications: No medication CHIEF COMPLIANT: Patient presents with: New REVIEW OF SYSTEMS: All other ROS: negative As noted in HPI No past medical history on file. Allergic rhinitis due to pollen Asthma (CMS/HCC) Asthma (CMS/HCC) Brain injury (CMS/HCC) NEC Combined hyperlipidemia (CMS/HCC) Depressive disorder (CMS/HCC) Endometrial thickening on ultrasound Fall 08/2018 Fell and clean fracture of 2 bones in left forearm. Female stress incontinence Hallux valgus (acquired), left foot Hallux valgus (acquired), right foot Hypothyroidism (CMS/HCC) Intestinal disaccharidase deficiencies and disaccharide malabsorption Memory loss Memory loss Obesity (BMI 35.0-39.9 without comorbidity) Overactive bladder Senile osteoporosis (CMS/HCC) Transient cerebral ischemia, unspecified type Type 2 diabetes mellitus without complication (CMS/HCC) No past surgical history on file. 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 SOCIAL HISTORY Social History Tobacco Use Smoking status: Former Packs/day: 1.00 Years: 10.00 Additional pack years: 0.00 Total pack years: 10.00 Types: Cigarettes Quit date: 11/05/1979 Years since quittin.1 Smokeless tobacco: Never Alcohol Use: No Drug Use: No FAMILY HISTORY Problem Relation Age of Onset Thyroid Daughter hypothyroidism Coronary Artery Disease Brother Stroke Sister Stroke Mother Cancer Sister cervical ALLERGIES Allergen Reactions Darvocet A500 [Prop* Rash Latex Rash Penicillins Rash Strawberries Rash Sulfa (Sulfonamide * Rash CURRENT MEDICATIONS: Cholecalciferol, Vitamin D3, 50 mcg (2,000 unit) cap Daily estradiol (ESTRACE) 0.01 % (0.1 mg/gram) vaginal cream Use 1 g vaginally. Ibandronate 150 mg tablet Take 1 tablet by mouth. TRUEPLUS LANCETS 33 gauge USE TO TEST ONCE DAILY EVERY MORNING. liothyronine (CYTOMEL) 5 mcg tablet Take 1 tablet by mouth every 12 hours. loperamide (IMODIUM) 2 mg cap(s) Every morning omeprazole (PRILOSEC) 40 mg capsule Take by mouth at bedtime as needed. levothyroxine (SYNTHROID) 50 mcg tablet 50 mcg. clopidogrel bisulfate(PLAVIX 75 MG TAB) Take one(1) tablet daily. OXYBUTYNIN CHLORIDE 5 MG/5 ML SYRUP Take one(1) tablet two(2) times daily. CALCIUM 500 MG TAB Take one(1) tablet twice daily. MULTIVITAMIN TAB Take one(1) tablet daily. PHYSICAL EXAM: BP 137/65 Pulse 67 Temp (Src) 97.6 (Temporal) Resp 16 Wt 175 lb (79.4kg) SpO2 97% GENERAL APPEARANCE: Well appearing, alert, in no acute distr (more content not included)... Normal [facility] CT CHEST WO IVCONon 12-27-19 CT CHEST WO IVCON * * *Final Report* * * DATE OF EXAM: Dec 27 2023 1:09PM [facility] [place] 0541 - CT CHEST WO IVCON / PROCEDURE REASON: Interstitial pulmonary disease (HCC) * * * * Physician Interpretation * * * * RESULT: EXAMINATION: CHEST CT WITHOUT CONTRAST CLINICAL HISTORY: 78-year-old female. Assess for interstitial lung disease. Technique: Spiral CT acquisition of the chest from the thoracic inlet to the upper abdomen without contrast. Free breathing images were also obtained. MQ: [id number] CT Radiation dose: Integrated Dose-length product (DLP) for this visit = 258 mGy*cm CT Dose Reduction Employed: Automated exposure control (AEC) Comparison: Chest CT dated 04/23/2020 RESULT: Limitations: None. Lines, tubes, and devices: None. Lung parenchyma and airways: There is mosaic attenuation of the lung parenchyma. Scattered reticular opacities are present primarily in the upper lobes. There is also mild reticulation at the lung bases. Subpleural cystic change along the periphery of the right upper lobe, image 62 is suggestive of paraseptal emphysema. There is mild bronchiectasis in the left upper lobe, image 84. No honeycombing. No definite ground-glass opacities. No honeycombing. No suspicious pulmonary nodule. No focal consolidation. No pulmonary edema. The central airways are patent without suspicious endobronchial lesion. The free breathing images, there are suspected air trapping bilaterally. No evidence of excessive dynamic airway collapse. Pleural space: No pleural effusion, pleural thickening, or pneumothorax. Lower neck, lymph nodes, and mediastinum: The thyroid gland is not visualized and may be atrophied or absent. No supraclavicular or axillary lymphadenopathy. No enlarged mediastinal or hilar lymph nodes within the limitations of noncontrast exam. A lower right paratracheal lymph node, image 59 measuring 0.9 cm in short axis is stable in size. The esophagus is nondilated. Heart, pericardium, and thoracic vessels: Minimal atherosclerosis is present within the thoracic aorta which is normal in caliber measuring 2.9 cm in the mid ascending segment. The main pulmonary artery is borderline enlarged measuring 2.9 cm in diameter, finding associated with pulmonary hypertension. There is mild left-sided coronary artery atherosclerotic ossification, however, this exam is not optimized for coronary artery assessment. Heart size is normal. No pericardial effusion. Bones and soft tissues: Partially imaged metallic plate and screws transfixes the left humeral diaphysis. There is adjacent callus, suggesting a healed fracture in this region. There is a healed medial left clavicle fracture, unchanged. Multilevel degenerative changes are present throughout the imaged spine. No destructive lytic or blastic bone lesion. Upper abdomen: No abnormality identified within the imaged solid abdominal organs on this noncontrast exam. A calcified gallstone is noted in the gallbladder. Special Education Educational Assistant (topogram) images: No additional findings. IMPRESSION: 1. There are scattered reticular opacities bilaterally without a definite apical basilar gradient. There is mild bronchiectasis in the left upper lobe as well as mosaic attenuation with associated air trapping on the free breathing images. These findings are nonspecific although may be due to chronic hypersensitivity pneumonitis or possibly smoking-related interstitial lung disease (if the patient has a history of smoking) given findings of suspected paraseptal emphysema in the upper lobes. The imaging findings are not typical of UIP. 2. Borderline dilated main pulmonary artery, which may be due to pulmonary hypertension. 3. No suspicious pulmonary nodule or thoracic lymphadenopathy. 4. Cholelithiasis. Transcribe Date/Time: Dec 28 2023 9:11A Dictated by: FRANKIE WOODSON MD This examination was interpreted and the report reviewed and electronically signed by: FRANKIE WOODSON MD on Dec 28 2023 9:30AM EST Thank you for allowing us to participate in the care of your patient. Should there be any questions regarding this interpretation, please call [phone]. If you are unable to reach us at the number above, please feel free to contact [facility] at [phone]. [id number] CN Normal [facility] LUNG DIFFUSION CAPACITY (SHANKAR O)on 12-25-2023 [facility] SPIROMETRY WITH DILATOR IF O BSTRUCTEDon 12-25-2023 DLCO (ml/min/mmHg) 9.76 ml/min/mmHg [facility] DLCO/VA (ml/min/mmHg/L) 4.48 ml/min/mmHg/L [facility] [id number]% PRE (L/S) 1.32 L/S [facility] FEV1 PRE (L) 1.05 L [facility] FEV1/FVC PRE (%) 89 % [facility] FVC PRE (L) 1.19 L [facility] PEF PRE (L/S) 1.90 L/S [facility] VA (L) 2.18 L [facility] CNPNon 11-28-2023 [facility] Telephone (DEVON) KARUNA REYNAGA ([id number]) 1945 F Date Time Provider Department 11/28/23 BARON ALCALA During your visit today, we recorded the following information about you: Stephanie Lopez Shuhei 11/28/2023 9:25 AM Signed Admin spoke with pt who stated she was calling to ask questions: -Does Dr. Alcala do virtual visits? -What locations does Dr. Alcala see pt's at? -Pt stated she would like to take the next available with Dr. Alcala depending on availability Emmy Sarmiento 11/29/2023 9:07 AM Signed Patient's daughter called with concerns with her mom since the patient had a chest xray showing ILD and patient is having crackling noises in her chest. Please call daughter to let her know if patient can have a sooner appointment. Red Anderson RN 11/29/2023 11:08 AM Signed Patient is a former patient of Dr Alcala needs to be treated as a new patient because has not been seen by a provider in our office in 4yrs. Current appointment scheduled with Dr Cornejo needs to be canceled and rescheduled as a new in person visit with testing per our policy. TEAGAN Bonds Jodie C, RN 12/11/2023 7:23 AM Signed Addended by: RED ANDERSON on: 12/11/2023 07:23 AM Modules accepted: Orders Allergies As of Date: 11/28/2023 Noted Allergy Reaction DARVOCET A500 (PROPOXYPHENE N-ROB*06/29/2020 2 - Rash LATEX 06/29/2009 2 - Rash PENICILLINS 06/29/2009 2 - Rash STRAWBERRIES 06/29/2009 2 - Rash SULFA (SULFONAMIDE ANTIBIOTICS) 06/29/2009 2 - Rash Date Reviewed: 06/29/2020 Reviewed by: Jannie Baptiste (Rn), RN - Fully Assessed Reason for Visit: Patient Question [1477] Primary Visit Diagnosis:ILD (interstitial lung disease) (HCC) [J84.9] Other Visit Diagnoses:Shortness of breath [R06.02] Interstitial pulmonary disease (HCC) [J84.9] Order(s):SPIROMETRY WITH DILATOR IF OBSTRUCTED [6410957] Order #: [id number]: 1 FUTURE LUNG DIFFUSION CAPACITY (DLCO) [[id number]] Order #: [id number]: [address] CHEST WO IVCON [[id number]] Order #: [id number] FUTURE Prescriptions as of 12/11/2023 - levothyroxine (SYNTHROID) 50 mcg tablet 50 mcg. - simvastatin (ZOCOR) 40 mg tablet Take 40 mg by mouth daily at bedtime. - tiZANidine HCl 4 mg capsule Take 4 mg by mouth. - diphenoxylate HCl/atropine (LOMOTIL ORAL) Take by mouth. - albuterol sulfate 90 mcg/actuation aebs Inhale as instructed. - thymol/chlorophyllin (CHLOROPHYLL ORAL) Take by mouth. - ipratropium-albutero l (DUONEB) 0.5 mg-3 mg(2.5 mg base)/3 mL nebu Inhale 3 mL as instructed every 6 hours as needed. - clopidogrel bisulfate(PLAVIX 75 MG TAB) Take one(1) tablet daily. - lovastatin(MEVACOR 40 MG TAB) Take one(1) tablet daily at bedtime. - OXYBUTYNIN CHLORIDE 5 MG/5 ML SYRUP Take one(1) tablet two(2) times daily. - CALCIUM 500 MG TAB Take one(1) tablet twice daily. - escitalopram oxalate(LEXAPRO 20 MG TAB) Take one(1) tablet daily. - MULTIVITAMIN TAB Take one(1) tablet daily. - lorazepam(ATIVAN 1 MG TAB) Take one(1) tablet daily at hs. - docusate sodium(COLACE 100 MG CAP) Take one(1) tablet daily Problem List As Of Date 11/28/2023 Noted Resolved Cough [R05.9] 06/29/2020 Encounter Status:Closed by RED ANDERSON on 11/29/23 Normal [facility] XR chest 2V*on 11-21-2023 XR chest 2V* [facility] [place] [address] [place] [address] XRay Report Signed Patient: Karuna Reynaga MR#: [id number] : 1945 Acct:[id number] Age/Sex: 78 / F ADM Date: 11/21/23 Loc: XD Room: Type: [facility] Attending Dr: Jamal Alvarez DO Copies to: Jamal Alvarez DO Ordering Provider: Jamal Alvarez DO Date of Service: 11/21/23 XR/XR chest 2V*: cough Chest 2 views CLINICAL HISTORY: Productive cough. COMPARISON: None FINDINGS: Heart appears normal in size. Presumed chronic interstitial changes. No consolidation pneumothorax pleural effusion or free air. XR/XR chest 2V* IMPRESSION: PRESUMED CHRONIC INTERSTITIAL CHANGES. NO CONSOLIDATION TO SUGGEST PNEUMONIA. Impression dictated by: Frankie Jorge Jr., D.OMonica11/21/2023 7:04 PM Dictation Location: [place] [address] Transcribed By: BERTA 11/21/231903 Dictated By: Frankie Jorge Jr, 11/21/231903 Signed By: 11/21/231903 Normal [facility] DEXA BONE DENSITYon 10-26-20 23 DEXA BONE DENSITY CLINICAL HISTORY: osteoporosis. COMPARISON: 10/20/2021. TECHNIQUE: The lumbar spine and both hips were scanned. FINDINGS: The mean bone mineral density from L1 through L4 is 1.065, and the T-score is 0.2, which is the standard deviation above the standard reference value for young adult. Bone mineral density of the left femoral neck is 0.682, and the T-score is -1.5, which is the standard deviation below the standard reference value for young adult. Bone mineral density of the right femoral neck is 0.697, and the T-score is -1.4, which is the standard deviation below the standard reference value for young adult. These values meet WHO criteria for osteopenia. Compared to prior study, 2.3% increase in BMD of the lumbar spine and 1.0% decrease in BMD of the hips. 10 year probability (FRAX) of major osteoporotic fracture is not reported since treated for osteoporosis. IMPRESSION: OSTEOPENIA. ELECTRONICALLY SIGNED BY: Baron Montenegro MD Normal Not Available Free T4 (Free Thyroxine)on 1 12-17-2022 Free T4 [Mass/Vol] 0.74 ng/dL Normal 0.61-1.12 [facility] Comment on above: Performed By: #### T 3F, T4F, TSH3 #### [address] Thyroid Stimulating Hormoneo n 10-16-2023 TSH Qn 0.51 m[IU]/L Normal 0.45-5.33 [facility] Comment on above: Result Comment: PERF ORMED BY: [place] [address] PATHOLOGIST BOX LOADER EDMOND NORTH M.D. Performed By: #### T 3F, T4F, TSH3 #### [address] Thyrotropin [Units/volume] i n Serum or PlasmaOrdered By: Valdez Castro on 10-16-2023 TSH Qn 0.51 m[IU]/L 0.45-5.33 [facility] Thyroxine (T4) free [Mass/vo lume] in Serum or PlasmaOrdered By: Valdez Castro on 10-16-2023 Free T4 [Mass/Vol] 0.74 ng/dL 0.61-1.12 [facility] Triiodothyronine (T3) Freeon 10-16-2023 Triiodothyronine (T3) Free 3.08 pg/mL Normal 2.50-3.90 [facility] Comment on above: Result Comment: PERF ORMED BY: [place] [address] PATHOLOGIST BOX LOADER EDMOND NORTH M.D. Performed By: #### T 3F, T4F, TSH3 #### [address] Triiodothyronine (T3) Free [ Mass/volume] in Serum or PlasmaOrdered By: Valdez Castro on 10-16-2023 Free T3 [Mass/Vol] 3.08 pg/mL 2.50-3.90 [facility] Free T4 (Free Thyroxine)on 0 07-16-2023 Free T4 [Mass/Vol] 0.75 ng/dL Normal 0.61-1.12 [facility] Comment on above: Performed By: #### T 3F, T4F, TSH3 #### [place] [id number] [place] Thyroid Stimulating Hormoneo n 07-16-2023 TSH Qn 0.07 m[IU]/L Low 0.45-5.33 [facility] Comment on above: Result Comment: PERF ORMED BY: [place] [id number] PATHOLOGIST BOX LOADER EDMOND NORTH M.D. Performed By: #### T 3F, T4F, TSH3 #### [address] [address] [facility] Triiodothyronine (T3) Freeon 07-16-2023 Triiodothyronine (T3) Free 2.81 pg/mL Normal 2.50-3.90 [facility] Comment on above: Result Comment: PERF ORMED BY: [facility] [address] [place] [address] PATHOLOGIST BOX LOADER EDMOND NORTH M.D. Performed By: #### T 3F, T4F, TSH3 #### [address] Basophils Auto (Bld) [#/Vol] Ordered By: Hermes Kennedy on 12-26-2022 Basophils (Bld) [#/Vol] 0.0 10*3/uL 0.0-0.2 [facility] Basophils/100 WBC Auto (Bld) Ordered By: Hermes Kennedy on 12-26-2022 Basophils/100 WBC (Bld) 0.5 % . F [facility] Creatinine and Glomerular fi ltration rate.predicted panel (S/P/Bld)Ordered By: Hermes Kennedy on 12-26-2022 Creatinine [Mass/Vol] 0.61 mg/dL 0.44-1.03 [facility] Eosinophils Auto (Bld) [#/Vo l]Ordered By: Hermes Kennedy on 12-26-2022 Eosinophils (Bld) [#/Vol] 0.1 10*3/uL 0.0-0.45 [facility] Eosinophils/100 WBC Auto (Bl d)Ordered By: Hermes Kennedy on 12-26-2022 Eosinophils/100 WBC (Bld) 2.3 % . [facility] Erythrocyte distribution wid th Auto (RBC) [Ratio]Ordered By: Hermes Kennedy on 12-26-2022 Erythrocyte distribution width (RBC) [Ratio] 13.2 % 11.9-15.3 [facility] Estimated glomerular filtrat ion rate (GFR) non- AmericanOrdered By: Hermes Kennedy on 12-26-2022 GFR/1.73 sq M.predicted among non-blacks MDRD (S/P/Bld) [Vol rate/Area] > 60 mL/Min [facility] Hematocrit Auto (Bld) [Volum e fraction]Ordered By: Hermes Kennedy on 12-26-2022 Hematocrit (Bld) [Volume fraction] 38.3 % 34.0-46.4 [facility] Hemoglobin [Mass/volume] in BloodOrdered By: Hermes Kennedy on 12-26-2022 Hemoglobin (Bld) [Mass/Vol] 12.4 g/dL 11.8-15.4 [facility] Leukocytes [#/volume] correc rob for nucleated erythrocytes in Blood by Automated counOrdered By: Hermes Kennedy on 12-26-2022 WBC corrected for nucl RBC Auto (Bld) [#/Vol] 6.4 10*3/uL 3.8-11.6 [facility] Lymphocytes Auto (Bld) [#/Vo l]Ordered By: Hermes Kennedy on 12-26-2022 Lymphocytes (Bld) [#/Vol] 2.2 10*3/uL 1.00-4.8 [facility] Lymphocytes/100 WBC Auto (Bl d)Ordered By: Hermes Kennedy on 12-26-2022 Lymphocytes/100 WBC (Bld) 34.9 % . [facility] MCH Auto (RBC) [Entitic mass ]Ordered By: Hermes Kennedy on 12-26-2022 MCH (RBC) [Entitic mass] 29.5 pg 24.7-34.3 [facility] MCHC Auto (RBC) [Mass/Vol]Or dered By: Hermes Kennedy on 12-26-2022 MCHC (RBC) [Mass/Vol] 32.3 g/dL 32.0-35.0 [facility] MCV Auto (RBC) [Entitic vol] Ordered By: Hermes Kennedy on 12-26-2022 MCV (RBC) [Entitic vol] 91.2 fL 80-100 F [facility] Monocytes Auto (Bld) [#/Vol] Ordered By: Hermes Kennedy on 12-26-2022 Monocytes (Bld) [#/Vol] 0.5 10*3/uL 0.0-0.8 [facility] Monocytes/100 WBC Auto (Bld) Ordered By: Hermes Kennedy on 12-26-2022 Monocytes/100 WBC (Bld) 8.3 % . F [facility] Neutrophils Auto (Bld) [#/Vo l]Ordered By: Hermes Kennedy on 12-26-2022 Neutrophils (Bld) [#/Vol] 3.5 10*3/uL 1.8-7.7 [facility] Neutrophils/100 WBC Auto (Bl d)Ordered By: Hermes Kennedy on 12-26-2022 Neutrophils/100 WBC (Bld) 54.0 % . [facility] No Panel InformationOrdered By: Hermes Kennedy on 12-26-2022 Estimated GFR () > 60 mL/Min [facility] Comment on above: GFR estimated refere nce range: According to KDOQI guidelines, <60 ml/min/1.73m2 is sufficient to diagnose a patient with chronic kidney disease. Pharmacy Creatinine Clearance (Chem N/A [facility] Nucleated erythrocytes [Pres ence] in Blood by Automated countOrdered By: Hermes Kennedy on 12-26-2022 Nucleated RBC Auto Ql (Bld) 0.2 /100{WBC} 0-0.5 [facility] Platelet mean volume Auto (B ld) [Entitic vol]Ordered By: Hermes Kennedy on 12-26-2022 Platelet mean volume (Bld) [Entitic vol] 8.5 fL 6.3-10.7 [facility] Platelets Auto (Bld) [#/Vol] Ordered By: Hermes Kennedy on 12-26-2022 Platelets (Bld) [#/Vol] 218 10*3/uL 150-450 [facility] RBC Auto (Bld) [#/Vol]Ordere d By: Hermes Kennedy on 12-26-2022 RBC (Bld) [#/Vol] 4.20 10*6/uL 3.60-5.00 [facility] Serum or plasma anion gap de terminationOrdered By: Hermes Kennedy on 12-26-2022 Anion gap [Moles/Vol] 10.0 mmol/L 6.0-15.0 [facility] Serum or plasma calcium marce urement (mass/volume)Ordered By: Hermes Kennedy on 12-26-2022 Calcium [Mass/Vol] 9.1 mg/dL 8.2-10.2 [facility] Serum or plasma chloride william surement (moles/volume)Ordered By: Hermes Kennedy on 02-21-2023 Chloride [Moles/Vol] 104 mmol/L 95-114 [facility] Serum or plasma glucose marce urement (mass/volume)Ordered By: Hermes Kennedy on 12-26-2022 Glucose [Mass/Vol] 80 mg/dL 70-100 [facility] Comment on above: ADA recommended refe rence rangeRandom Glucose Reference Range is dependent on time and content of last meal. Glucose of more than 200 mg/dL in a nonstressed, ambulatory subject supports the diagnosis of Diabetes Mellitus. Serum or plasma potassium me asurement (moles/volume)Ordered By: Hermes Kennedy on 12-26-2022 Potassium [Moles/Vol] 4.3 mmol/L 3.5-5.1 [facility] Serum or plasma sodium measu rement (moles/volume)Ordered By: Hermes Kennedy on 12-26-2022 Sodium [Moles/Vol] 139 mmol/L 136-146 [facility] Serum or plasma total carbon dioxide measurement (moles/volume)Ordered By: Hermes Kennedy on 12-26-2022 CO2 [Moles/Vol] 29.3 mmol/L 22.0-30.0 [facility] Serum or plasma urea nitroge n measurement (mass/volume)Ordered By: Hermes Kennedy on 12-26-2022 Urea nitrogen [Mass/Vol] 21 mg/dL 9-23 [facility] WBC Auto (Bld) [#/Vol]Ordere d By: Hermes Kennedy on 12-26-2022 WBC (Bld) [#/Vol] 6.4 10*3/uL 3.8-11.6 [facility] CULTURE URINEon 04-05-2022 CULTURE URINE Culture Observations: NO GROWTH. Normal [facility] Comment on above: Performed By: #### U RCX #### [facility] [address] [place] [address] [address] Mojgan Daily UA RANDOM W/MICROSCOPICon BACTERIA NONE SEEN Normal NONE SEEN [facility] Comment on above: Performed By: #### U AMIC #### [facility] [address] [place] [id number] Mojgan Daily Bilirubin Ql (U) Negative Normal NEGATIVE [facility] Comment on above: Performed By: #### U AMIC #### [facility] [address] [place] [address] [address] Mojgan Daily CA OX CRYSTALS FEW Normal [facility] Comment on above: Performed By: #### U AMIC #### [facility] [address] [place] [address] [address] Mojgan Daily CAST NONE SEEN Normal NONE SEEN [facility] Comment on above: Performed By: #### U AMIC #### [facility] [address] [place] [address] [address] Mojgan Daily Clarity (U) CLEAR Normal CLEAR [facility] Comment on above: Performed By: #### U AMIC #### [facility] [address] [place] [address] [address] Mojgan Daily Color (U) LT. YELLOW Normal YELLOW [facility] Comment on above: Performed By: #### U AMIC #### [facility] [address] [place] [address] [address] Mojgan Daily Crystals LM Nom (Urine sed) SEEN Abnormal NONE SEEN [facility] Comment on above: Performed By: #### U AMIC #### [facility] [address] [place] [address] [address] Mojgan Daily Epithelial cells LM Ql (Urine sed) NONE SEEN Normal NONE SEEN /RARE [facility] Comment on above: Performed By: #### U AMIC #### [facility] [address] [place] [address] [address] Mojgan Daily Glucose Ql (U) Negative Normal NEGATIVE [facility] Comment on above: Performed By: #### U AMIC #### [facility] [address] [place] [address] [address] Mojgan Daily Hemoglobin Ql (U) Negative Normal NEGATIVE The [facility] Comment on above: Performed By: #### U AMIC #### [facility] [address] [place] [address] [address] Mojgan Daily Ketones Ql (U) Negative Normal NEGATIVE [facility] Comment on above: Performed By: #### U AMIC #### [facility] [address] [place] [address] [address] Mojgan Daily LEUKOCYTES SMALL Abnormal NEGATIVE [facility] Comment on above: Performed By: #### U AMIC #### [facility] [address] [place] [address] [address] Mojgan Daily MUCOUS NONE SEEN Normal NONE SEEN [facility] Comment on above: Performed By: #### U AMIC #### [facility] [address] [place] [address] [address] Mojgan Daily Nitrite Ql (U) Negative Normal NEGATIVE [facility] Comment on above: Performed By: #### U AMIC #### [facility] [address] [place] [address] [address] Mojgan Daily pH (U) 5.0 [pH] Normal 5-9 [facility] Comment on above: Performed By: #### U AMIC #### [facility] [address] [place] [address] [address] Mojgan Daily RBC NONE SEEN Abnormal 0-2 [facility] Comment on above: Performed By: #### U AMIC #### [facility] [address] [place] [address] Dr. Mojgan Daily SPEC GRAVITY 1.025 Normal 1.005-<=1.025 [facility] Comment on above: Performed By: #### U AMIC #### [facility] [address] [place] [address] Dr. Mojgan Daily UA PROTEIN Negative Normal NEGATIVE/ TRACE [facility] Comment on above: Performed By: #### U AMIC #### [facility] [address] [place] [address] [address] Mojgan Daily URIC ACID CRYSTALS RARE Normal The [facility] Comment on above: Performed By: #### U AMIC #### [facility] [address] [place] [address] Dr. Mojgan Daily Urobilinogen Qn (U) 0.2 {Amanuel'U}/dL Normal 0.2 - 1. 0 [facility] Comment on above: Performed By: #### U AMIC #### [facility] [address] [place], [place] [id number] Dr. Mojgan Daily WBC 2-5 Abnormal NONE SEEN [facility] Comment on above: Performed By: #### U [facility] #### [facility] [address] [place], [place] [id number] Dr. Mojgan Daily MG MAMM SCREEN 3D RUPAL CADon 03-27-2022 MG MAMM SCREEN 3D RUPAL CAD Patient: KARUNA REYNAGA Exam Date: 03/27/2022 : 1945 Gender:F Ordering : DR JAMAL ALVAREZ Admission #: [id number] Family : Order #: [id number] CLICK HERE TO VIEW EXAM RADIOLOGY REPORT PROCEDURE: MAMMOGRAM SCREENING 3D BILATERAL CAD COMPARISON: MG MAMM SCREEN RUPAL W CAD, 03/25/2021. MG MAMM SCREEN RUPAL W CAD, 01/13/2020. INDICATIONS: Screening mammography Calculator Name NCI Breast Cancer Risk Assessment Tool 5 Year Breast Cancer Risk 1.60% Lifetime Breast Cancer Risk 3.40% Personal Breast Cancer No Personal Ovarian Cancer No Treatments None Family Cancers None LOCATION: [facility] BREAST COMPOSITION: Almost entirely fatty. FINDINGS: DIAGNOSTIC CATEGORY 1--NEGATIVE. NO CHANGE FROM COMPARISON ASSESSMENT. Scattered benign-appearing calcifications are present. Scattered benign-appearing lymph nodes are present. RIGHT BREAST: No significant suspicious finding. LEFT BREAST: No significant suspicious finding. RECOMMENDATIONS: ROUTINE MAMMOGRAM AND CLINICAL EVALUATION IN 12 MONTHS. PLEASE NOTE: A NORMAL MAMMOGRAM DOES NOT EXCLUDE THE POSSIBILITY OF BREAST CANCER. A CLINICALLY SUSPICIOUS PALPABLE LUMP SHOULD BE BIOPSIED. Dictated by: Jeaneth Christianson MD on 03/27/2022 at 14:09 Approved by: Jeaneth Christianson MD on 03/27/2022 at 14:10 Normal [facility] Comprehensive metabolic 2000 panelon 02-03-2022 Albumin [Mass/Vol] 4.0 g/dL 3.9 - 4.9 g/dL [facility] ALP [Catalytic activity/Vol] 55 U/L 34 - 123 U/L [facility] ALT [Catalytic activity/Vol] 16 U/L 7 - 38 U/L [facility] Anion gap [Moles/Vol] 10 mmol/L 9 - 18 mmol/L [facility] AST [Catalytic activity/Vol] 16 U/L 13 - 35 U/L [facility] Bilirubin [Mass/Vol] 0.3 mg/dL 0.2 - 1 .3 mg/dL [facility] Calcium [Mass/Vol] 9.4 mg/dL 8.5 - 10. 2 mg/dL [facility] Chloride [Moles/Vol] 107 mmol/L High 97 - 10 5 mmol/L [facility] CO2 [Moles/Vol] 28 mmol/L 22 - 30 mmol/L [facility] Creatinine [Mass/Vol] 0.81 mg/dL 0.58 - 0.96 mg/dL [facility] Estimated Glomerular Filtration Rate 75 mL/min/1.73m >=60 mL/min/1.73m [facility] Glucose [Mass/Vol] 102 mg/dL High 74 - 99 mg/dL [facility] Potassium [Moles/Vol] 4.5 mmol/L 3.7 - 5.1 mmol/L [facility] Protein [Mass/Vol] 6.7 g/dL 6.3 - 8.0 g/dL [facility] Sodium [Moles/Vol] 145 mmol/L High 136 - 144 mmol/L [facility] Urea nitrogen [Mass/Vol] 22 mg/dL High 7 - 21 mg/d L [facility] Office Visit (Cardiology)on 10-21-2021 Follow-up visit Diagnoses/Problems Assessed Pre-operative cardiovascular examination (V72.81) (Z01.810) Sinus bradycardia (427.89) (R00.1) Class 1 obesity with body mass index (BMI) of 30.0 to 30.9 in adult (278.00,V85.30) (E66.9,Z68.30) Former smoker (V15.82) (Z87.891) Quit 1980 Orders Class 1 obesity with body mass index (BMI) of 30.0 to 30.9 in adult Healthy Weight Tips; Status:Complete - Retrospective Authorization; Done: [id number] Pre-operative cardiovascular examination IO EKG Electrocardiogram- 12 Lead; Status:Complete; Done: [id number] SocHx: Former smoker Tobacco Use Screening; Status:Complete; Done: [id number] Patient Instructions Follow up as needed only Patient may proceed with surgery Dr. Kennedy By signing my name below, I, Kalia Davenport LPN ,Scribe, attest that this documentation has been prepared under the direction and in the presence of Dr. Albert Walton DO. All medical record entries made by the Scribe were at my direction and personally dictated by me. I have reviewed the chart and agree that the record accurately reflects my personal performance of the history, physical exam, discussion and plan. Chief Complaint BARBIE REYNAGA is being seen for a consultation for pre-operative clearance. History of Present Illness Mrs. Reynaga is a 76-year-old female who is seen today at the request of Dr. Kennedy for preoperative clearance for a bladder stimulator. The patient has no cardiac history. She was already cleared for surgery by Dr. Alvarez who is her regular doctor. Apparently there was considered to be a problem with her EKG. EKG demonstrates sinus rhythm. There is some poor R wave progression but this is not clinically significant. She has had prior stress tests and echocardiograms done several years ago that were unremarkable. She has no anginal symptoms and no history of coronary disease and she is physically active and able to walk reasonably long distances without anginal symptoms. Past medical history and review of systems as per office record. Physical exam: HEENT: No carotid bruits are heard Neck: No lymphadenopathy Lungs: Clear Heart: Regular rate and rhythm without murmurs or extra sounds Abdomen: Soft nontender Extremities: No significant edema Neurologic: Intact and nonfocal Skin: No significant lesion Impression and plan: 1) 76-year-old female who is to undergo relatively minor surgical procedure and who has no cardiac history. Her EKG is unremarkable. There is no cardiac contraindication for her to proceed with her surgical procedure. A letter will be sent to Dr. Kennedy. 2) she is on chronic clopidogrel due to a prior TIA. No cardiac history or indication for this. Continued follow-up with Dr. Alvarez. Surgical History Problems History of Complete colonoscopy 01/30/2007 History of Percutaneous insertion of neurostimulator electrode into sacral nerve Current Meds Medication NameInstruction Clopidogrel Bisulfate 75 MG Oral TabletTAKE 1 TABLET DAILY. Estradiol 0.1 MG/GM Vaginal CreamUSE DIRECTED. Fluconazole 150 MG Oral TabletTAKE 1 TABLET DAILY DIRECTED. hydrOXYzine HCl - 25 MG Oral TabletTAKE 1 TABLET BY MOUTH EVERY EIGHT HOURS NEEDED Ibandronate Sodium 150 MG Oral TabletTAKE 1 TABLET BY MOUTH ONCE A MONTH Ipratropium-Albutero l 0.5-2.5 (3) MG/3ML Inhalation SolutionAs directed. Levothyroxine Sodium 75 MCG Oral TabletTAKE 1 TABLET DAILY DIRECTED. Multi Vitamin TABSTAKE 1 TABLET DAILY. Omeprazole 40 MG Oral Capsule Delayed ReleaseTAKE 1 CAPSULE BY MOUTH EVERY DAY 30 minutes before morning meal Oxybutynin Chloride ER 10 MG Oral Tablet Extended Release 24 HourTAKE 1 TABLET BY MOUTH AT BEDTIME Simvastatin 20 MG Oral TabletTAKE 1 TABLET BY MOUTH AT BEDTIME Ventolin HFA 108 (90 Base) MCG/ACT Inhalation Aerosol SolutionAs directed. Vitamin D3 50 MCG (2000 UT) Oral CapsuleTAKE 1 CAPSULE Daily Allergies Medication codeine Recorded By: Jaida Forbes; 10/21/2021 11:07:03 AM Penicillins Recorded By: Jaida Forbes; 10/21/2021 11:07:03 AM propoxyphene Recorded By: Jaida Forbes; 10/21/2021 11:07:03 AM sulfa Recorded By: Jaida Forbes; 10/21/2021 11:07:03 AM Social History Problems Former smoker (V15.82) (Z87.891) Quit 1979 No alcohol use No caffeine use No illicit drug use Review of Systems Constitutional: not feeling tired. Cardiovascular: chest pain, but no intermittent leg claudication and as noted in HPI. Respiratory: shortness of breath during exertion, but no cough and no shortness of breath. Gastrointestinal: no change in bowel habits and no blood in stools. Integumentary: no skin rashes. Neurological: no seizures and no frequent falls. All other systems have been reviewed and are negative for complaint. Vitals Vital Signs Recorded: [id number] 11:08AMRecorded: [id number] 11:07AM Lokiwdts619, LUE, Rtlanbx282, LUE, Sitting Kpfxdjieo73, LUE, Smuusnx78, LUE, Sitting Heart Rate58, Apical Height4 ft 10 in Iccktw527 lb BMI (more content not included)... Normal [facility] Tobacco Screening.on 021 Fall risk assessment a) No falls within the last year [facility] [employer] 250 DO Work Phone: Tobacco use status CP b) No M [facility] [employer] 250 DO Work Phone: XR Chest 2 Views*on 10-13-20 21 XR Chest 2 Views* CLINICAL HISTORY: Preop imaging. Abnormal breath sounds right lung COMPARISONS: April 09, 2020 FINDINGS: The heart, mediastinum and pulmonary vasculature are within normal limits. Stable of mild interstitial coarsening consistent with nonspecific fibrosis.. Bones unremarkable IMPRESSION: No active lung disease Report reported and signed by Kole Nino on 10/13/2021 1530 Normal [facility] Specialist Vital Signs Date Time Vital Sign Value Performing Clinician Facility 02-21-2024 10:45-0400 Body height 142.24 cm DO Jamal Alvarez Work Phone: [facility] 02-21-2024 10:45-0400 Body mass index (BMI) [Ratio] 33.8 kg/m2 DO Jamal Antonio Work Phone: [facility] 02-21-2024 10:45-0400 Body weight 68.49 kg DO Jamal Antonio Work Phone: [facility] 02-21-2024 10:45-0400 Diastolic blood pressure 79 mm[Hg] DO Jamal Antonio Work Phone: [facility] 02-21-2024 10:45-0400 Heart rate 65 /min DO Jamal Antonio Work Phone: [facility] 02-21-2024 10:45-0400 Systolic blood pressure 131 mm[Hg] DO Jamal Antonio Work Phone: [facility] 02-13-2024 18:46-0400 Body height 142.24 cm DO Jamal Antonio Work Phone: [facility] 02-13-2024 18:46-0400 Body mass index (BMI) [Ratio] 33.9 kg/m2 DO Jamal Antonio Work Phone: [facility] 02-13-2024 18:46-0400 Body temperature 97.1 [degF] DO Jamal Antonio Work Phone: [facility] 02-13-2024 18:46-0400 Body weight 68.6 kg DO Jamal Antonio Work Phone: [facility] 02-13-2024 18:46-0400 Diastolic blood pressure 80 mm[Hg] DO Jamal Alvarez Work Phone: [facility] 02-13-2024 18:46-0400 Heart rate 74 /min DO Jamal Alvarez Work Phone: [facility] 02-13-2024 18:46-0400 Respiratory rate 18 /min DO Jamal Alvarez Work Phone: [facility] 02-13-2024 18:46-0400 SaO2% (BldA) [Mass fraction] 94 % DO Jamal Alvarez Work Phone: [facility] 02-13-2024 18:46-0400 Systolic blood pressure 110 mm[Hg] DO Jamal Alvarez Work Phone: [facility] 12-28-2023 13:29-0500 Body temperature 97.59 [degF] Ubaldo Hdz MD Work Phone: [facility] 12-28-2023 13:29-0500 Body weight 79.38 kg Ubaldo Hdz MD Work Phone: [facility] 12-28-2023 13:29-0500 Diastolic blood pressure 65 mm[Hg] Ubaldo Hdz MD Work Phone: [facility] 12-28-2023 13:29-0500 Heart rate 67 /min Ubaldo Hdz MD Work Phone: [facility] 12-28-2023 13:29-0500 Respiratory rate 16 /min Ubaldo Hdz MD Work Phone: [facility] 12-28-2023 13:29-0500 SaO2% (BldA) [Mass fraction] 97 % Ubaldo Hdz MD Work Phone: [facility] 12-28-2023 13:29-0500 Systolic blood pressure 137 mm[Hg] Ubaldo Hdz MD Work Phone: [facility] 10-21-2021 11:08-0500 Diastolic blood pressure 70 mm[Hg] Jamal Alvarez Work Phone: [facility] 250 DO Work Phone: 10-21-2021 11:08-0500 Systolic blood pressure 132 mm[Hg] Jamal Alvarez Work Phone: [facility] 250 DO Work Phone: 10-21-2021 11:07-0500 Body height 147.32 cm Jamal Alvarez Work Phone: [facility] 250 DO Work Phone: 10-21-2021 11:07-0500 Body mass index (BMI) [Ratio] 30.31 kg/m2 Jamal Alvarez Work Phone: [facility] 250 DO Work Phone: 10-21-2021 11:07-0500 Body surface area Derived from formula 1.59 m2 Jamal Alvarez Work Phone: [facility] 250 DO Work Phone: 10-21-2021 11:07-0500 Body weight 65.77 kg Jamal Alvarez Work Phone: [facility] 250 DO Work Phone: 10-21-2021 11:07-0500 Diastolic blood pressure 70 mm[Hg] Jamal Alvarez Work Phone: [facility] 250 DO Work Phone: 10-21-2021 11:07-0500 Heart rate 58 /min Jamal Alvarez Work Phone: [facility] 250 DO Work Phone: 10-21-2021 11:07-0500 Systolic blood pressure 132 mm[Hg] Jamal Alvarez Work Phone: [facility] 250 DO Work Phone: Encounters Encounter Date Encounter Type Care Provider Facility Start: 02-21-2024 End: 02-21-2024 ambulatory DO Jamla Alvarez Work Phone: [facility] Work Phone: Start: 02-21-2024 End: 02-21-2024 Patient encounter procedure DO Jamal Alvarez Work Phone: [facility] Gastroenterology Work Phone: Start: 02-19-2024 Registered Recurring DO Shelby Alvarez Work Phone: [facility] Start: 02-15-2024 Orders Only Ubaldo Peres rn, MD Work Phone: Pulmonary Medicine Comment on above: Bronchiectasis witho ut complication (HCC) (Primary Dx) Start: 02-13-2024 End: 02-13-2024 ambulatory Nallely Pearce Facility:[facility] Start: 02-13-2024 End: 02-13-2024 ambulatory DO Jamal Alvarez Work Phone: [facility] Work Phone: Start: 02-13-2024 End: 02-13-2024 Patient encounter procedure DO Jamal Alvarez Work Phone: [facility] [place] Work Phone: Start: 02-13-2024 End: 02-13-2024 ambulatory IRVING DUVALL Not Available Start: 02-12-2024 Registered Recurring DO Shelby Alvarez Work Phone: [facility] Start: 01-23-2024 End: 01-23-2024 ambulatory Jamal Alvarez Facility:[facility] Start: 01-23-2024 End: 01-23-2024 ambulatory DO Jamal Alvarez Work Phone: [facility] Work Phone: Start: 01-23-2024 End: 01-23-2024 Patient encounter procedure DO Jamal Alvarez Work Phone: [facility] Work Phone: Start: 01-22-2024 Telephone encounter Ubaldo dawn MD Work Phone: Pulmonary Medicine Comment on above: Received Outside Med ical Records Start: 01-14-2024 Registered Recurring DO Shelby Alvarez Work Phone: [facility] Start: 12-28-2023 End: 12-28-2023 ambulatory UBALDO HDZ Facility:[facility] Start: 12-28-2023 End: 12-28-2023 Patient encounter procedure Ubaldo Hdz MD Work Phone: Pulmonary Medicine Comment on above: Bronchiectasis witho ut complication (HCC) (Primary Dx); Aspiration pneumonitis (HCC); Traumatic brain injury with loss of consciousness, sequela (HCC) Start: 12-27-2023 End: 12-27-2023 ambulatory DEEURBAN ROPERIE Facility:[facility] Start: 12-25-2023 End: 12-[facility] Comment on above: Spirometry Start: 12-25-2023 End: 12-25-2023 Patient encounter procedure Pulm Lab Nikhil Work Phone: [facility] Start: 12-05-2023 End: 12-05-2023 ambulatory JAMAL ALVAREZ Not Available Start: 11-21-2023 End: 11-21-2023 ambulatory Jamal Alvarez Facility:[facility] Start: 11-21-2023 End: 11-21-2023 ambulatory DO Jamal Alvarez Work Phone: [facility] Work Phone: Start: 11-21-2023 End: 11-21-2023 Patient encounter procedure DO Jamal Alvarez Work Phone: [facility] Work Phone: Start: 10-26-2023 End: 10-27-2023 ambulatory JAMAL ALVAREZ Not Available Start: 10-16-2023 End: 10-17-2023 ambulatory JESUS ROBERSON Not Available Start: 10-16-2023 End: 10-16-2023 ambulatory Jamal Alvarez Facility:[facility] Start: 10-16-2023 End: 10-16-2023 ambulatory DO Jamal Alvarez Work Phone: [facility] Work Phone: Start: 10-16-2023 End: 10-16-2023 Patient encounter procedure DO Jamal Alvarez Work Phone: [facility] [place] Work Phone: Start: 07-16-2023 End: 07-16-2023 ambulatory Valdez Castro Facility:[facility] Start: 02-10-2023 End: 02-10-2023 ambulatory BRUCE DIAB . Facility:[facility] Start: 12-26-2022 End: 12-26-2022 ambulatory DO Jamal Alvarez Work Phone: [facility] Work Phone: Start: 12-26-2022 End: 12-26-2022 Patient encounter procedure DO Jamal Alvarez Work Phone: [facility] [employer] Work Phone: Start: 07-26-2022 Orders Only Everton Cummings cortney Work Phone: Hematology/Oncology Comment on above: Dermatophytosis of n ail (Primary Dx); Well controlled type 2 diabetes mellitus with neurological manifestations (HCC); Unspecified hypothyroidism Dermatophytosis of n ail (Primary Dx) Start: 04-05-2022 End: 04-05-[address] JAMAL ALVAREZ Facility:[facility] Start: 03-27-2022 End: 03-28-[address] JAMAL ALVAREZ Facility:[facility] Start: 02-03-2022 Orders Only Joanne Aleah RN Nick tology/Oncology Comment on above: Hypothyroidism, adul t (Primary Dx); 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); Mixed hyperlipidemia Start: 10-21-2021 Office consultation new/estab patient 60 min Jamal Alvarez Work Phone: [facility] 250 DO Work Phone: Start: 10-21-2021 Office outpatient ne w 45 minutes [facility] Work Phone: Patient encounter status Jamal Alvarez Work Phone: [facility] 250 DO Work Phone: Procedures Date Procedure Procedure Detail Performing Clinician Start: 02-13-2024 Plain chest X-ray DO Noe Alvarez Work Phone: Start: 12-25-2023 Brncdilat rspse spmt ry pre&post-brncdilat admn Red Anderson RN Start: 11-21-2023 Plain chest X-ray DO Noe Alvarez Work Phone: Implantation of sacr al nerve stimulator Jamal Alvarez Work Phone: Total colonoscopy Jamal Alvarez Work Phone: Comment on above: 01/30/2007; Plan of Treatment Date Care Activity Detail Author Start: 07-28-2025 Diabetes Screening Diabetes Screenin g [facility] Start: 02-03-2025 DIABETES SCREEN DIABETES SCREEN [facility] Start: 11-05-2023 Advance Directive Discussion Advance Directive Discussion [facility] Start: 11-05-2023 Behavioral Health Screening Behavioral Health Screening [facility] Start: 11-05-2023 Depression Assessment Depression Ass essment [facility] Start: 07-06-2023 Covid-19 Vaccine () Covid-19 Vaccine () [facility] Start: 07-26-2022 End: 09-25-2022 CBC W Auto Differential panel - Blood CBC + DIFF Lab Routine Well controlled type 2 diabetes mellitus with neurological manifestations (HCC) Unspecified hypothyroidism Expected: 07/26/2022, Expires: 09/25/2022 [facility] Work Phone: Comment on above: Expected: 07/26/2022 , Expires: 09/25/2022 Start: 07-26-2022 End: 09-25-2022 Comprehensive metabolic 2000 panel - Serum or Plasma COMP METABOLIC PANEL Lab Routine Well controlled type 2 diabetes mellitus with neurological manifestations (HCC) Unspecified hypothyroidism Expected: 07/26/2022, Expires: 09/25/2022 [facility] Work Phone: Comment on above: Expected: 07/26/2022 , Expires: 09/25/2022 Start: 07-26-2022 End: 09-25-2022 Hepatic function 2000 panel - Serum or Plasma HEPATIC FUNCTION PNL Lab Routine Dermatophytosis of nail Expected: 07/26/2022, Expires: 09/25/2022 [facility] Work Phone: Comment on above: Expected: 07/26/2022 , Expires: 09/25/2022 Start: 07-26-2022 End: 09-25-2022 Lipid 1996 panel - Serum or Plasma LIPID PANEL BASIC Lab Routine Well controlled type 2 diabetes mellitus with neurological manifestations (HCC) Unspecified hypothyroidism Expected: 07/26/2022, Expires: 09/25/2022 [facility] Work Phone: Comment on above: Expected: 07/26/2022 , Expires: 09/25/2022 Start: 07-26-2022 End: 09-25-2022 Thyrotropin [Units/volume] in Serum or Plasma TSH BLD Lab Routine Well controlled type 2 diabetes mellitus with neurological manifestations (HCC) Unspecified hypothyroidism Expected: 07/26/2022, Expires: 09/25/2022 [facility] Work Phone: Comment on above: Expected: 07/26/2022 , Expires: 09/25/2022 Start: 07-06-2022 Influenza vaccination INFLUENZA (#1) [facility] Start: 02-03-2022 End: 04-05-2022 ALBUMIN/CREAT RATIO RND UR [facility] Work Phone: Comment on above: Expected: 02/03/2022 , Expires: 04/05/2022 Start: 02-03-2022 End: 04-05-2022 LIPID PANEL BASIC [facility] Work Phone: Comment on above: Expected: 02/03/2022 , Expires: 04/05/2022 Start: 02-03-2022 End: 04-05-2022 Thyrotropin [Units/volume] in Serum or Plasma [facility] Work Phone: Comment on above: Expected: 02/03/2022 , Expires: 04/05/2022 Start: 02-03-2022 End: 04-05-2022 Urinalysis complete panel - Urine [facility] Work Phone: Comment on above: Expected: 02/03/2022 , Expires: 04/05/2022 Start: 11-05-2021 ADVANCE DIRECTIVE DISCUSSION ADVANCE DIRECTIVE DISCUSSION [facility] Start: 11-05-2021 COVID-19 VACCINE (4 - Booster for Moderna series) COVID-19 VACCINE (4 - Booster for Moderna series) [facility] Start: 08-04-2021 Pneumococcal Vaccine : 65+ (2 of 2 - PCV) Pneumococcal Vaccine: 65+ (2 of 2 - PCV) [facility] Start: 2011 BONE DENSITY BONE DENSITY [facility] Start: 2011 PNEUMOCOCCAL: 65+ (1 - PCV) PNEUMOCOCCAL: 65+ (1 - PCV) [facility] Start: 2011 PNEUMOVAX AGE 65 AND OVER WITH 5YR LOOKBACK (#1) PNEUMOVAX AGE 65 AND OVER WITH 5YR LOOKBACK (#1) [facility] Start: 2006 RSV Vaccine (1 - 1-d ose 60+ series) RSV Vaccine (1 - 1-dose 60+ series) [facility] Start: 1996 SHINGRIX VACCINE (1 of 2) SHINGRIX VACCINE (1 of 2) [facility] Start: 1965 Urine microalbumin profile [facility] Start: 1964 HEPATITIS C SCREENING HEPATITIS C [facility] Start: 1964 Hepatitis C screening Hepatitis C Or bud [facility] Start: 1958 Adult depression screening assessment DEPRESSION SCREENING [facility] End: 01-26-2025 LUNG DIFFUSION CAPACITY (DLCO) LUNG DIFFUSION CAPACITY (DLCO) PFT Routine Bronchiectasis without complication (HCC) 1 Occurrences starting 12/28/2023 until 01/26/2025 [facility] Work Phone: Comment on above: 1 Occurrences starti ng 12/28/2023 until 01/26/2025 End: 01-26-2025 SPIROMETRY BASELINE ONLY SPIROMETRY BASELINE ONLY PFT Routine Bronchiectasis without complication (HCC) 1 Occurrences starting 12/28/2023 until 01/26/2025 [facility] Work Phone: Comment on above: 1 Occurrences starti ng 12/28/2023 until 01/26/2025 URINE MICROALBUMIN B/O URINE ABAD ROALBUMIN B/O Lab Routine Hypothyroidism, adult 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) Mixed hyperlipidemia Ordered: 02/03/2022 [facility] Work Phone: Comment on above: Ordered: 02/03/2022 XR Chest 2 Views [facility] Immun[facility] Immunization Date Immunization Notes Care Provider Darwin tyler 08-23-2023 influenza (aIIV4) vaccine, age 65+ yr, quadrivalent, PF (FLUAD QUAD) Ubaldo Hdz MD Work Phone: [facility] 11-10-2022 COVID-19 mRNA Bivale nt Booster (Moderna) DO Jamal Alvarez Work Phone: [facility] 08-17-2022 influenza, high dose seasonal, preservative-free Ubaldo Hdz MD Work Phone: [facility] 05-30-2022 zoster vaccine recombinant Ubaldo Hdz MD Work Phone: [facility] 02-28-2022 zoster vaccine recombinant Ubaldo Hdz MD Work Phone: [facility] 08-16-2021 influenza, high dose seasonal, preservative-free Jamal Alvarez Work Phone: [facility] 07-06-2021 Moderna COVID-19 Vac cine 100 MCG/0.5ML Intramuscular Suspension Jamal Alvarez Work Phone: [facility] 02-03-2021 Moderna COVID-19 Vac cine 100 MCG/0.5ML Intramuscular Suspension Jamal Alvarez Work Phone: [facility] 01-06-2021 Moderna COVID-19 Vac cine 100 MCG/0.5ML Intramuscular Suspension Jamal Alvarez Work Phone: [facility] 08-04-2020 pneumococcal polysaccharide vaccine, 23 valent Jamal Alvarez Work Phone: [facility] 07-15-2020 AS03 adjuvant Ubaldo Hdz MD Work Phone: [facility] 07-15-2020 Seasonal trivalent influenza vaccine, adjuvanted, preservative free Jamal Alvarez Work Phone: [facility] 09-10-2019 AS03 adjuvant Ubaldo Hdz MD Work Phone: [facility] System 09-10-2019 Seasonal trivalent influenza vaccine, adjuvanted, preservative free Jamal Alvarez Work Phone: [facility] 07-25-2018 AS03 adjuvant Ubaldo Hdz MD Work Phone: [facility] 07-25-2018 Seasonal trivalent influenza vaccine, adjuvanted, preservative free Jamal Alvarez Work Phone: [facility] 10-22-2017 influenza, injectabl e, quadrivalent, preservative free Jamal Alvarez Work Phone: [facility] 08-17-2016 influenza, high dose seasonal, preservative-free Jamal Alvarez Work Phone: [facility] Payers Date Payer Category Payer Medicare AETNA MEDICARE A ETNA MEDICARE PPO [id number] 2021-Present [phone] [address] [place] [address] PPO [id number] 2021 Medicare [id number] 1959 Medicare [id number] 1959 Private Health Insurance [id number] 1945 Unknown [id number] 93 1946 Unknown [id number] 93 1946 Unknown [id number] 93 1946 Unknown [id number] 259 1946 Unknown [id number] 259 1946 Unknown [id number] 259 1946 Unknown [id number] 259 1946 Unknown [id number] 259 Medicaid [id number] Medicare [id number] Medicare Medicare [id number] Private Health Insurance [facility] [id number] Private Health Insurance Aetna MCR PFFS M [id number] Self-pay Self Pay [id number] Unknown [id number] Unknown [id number] Unknown AETNA Unknown HCAP/HFA/FAP Active [id number] Social History Date Type Detail Facility Tobacco smoking stat [facility] Unknown if ever smoked [facility] Start: 1945 Sex Assigned At Female F [facility] Start: 06-29-2020 End: 12-28-2023 No caffeine use No caffeine use [facility] [employer] DO Work Phone: Comment on above: Quit 1979; Start: 06-29-2020 End: 01-09-2023 Tobacco smoking status ALIS Ex-smoker [facility] End: 11-05-1979 History of tobacco use Current smoker [facility] End: 11-05-1979 History of tobacco use Cigarette Smoker [facility] Start: 06-29-2020 End: 12-28-2023 Alcohol intake Current non-drinker of alcohol (finding) [facility] Start: 1945 Sex Assigned At Not on file [facility] Start: 06-29-2020 End: 12-28-2023 Tobacco use and exposure Smokeless tobacco non-user [facility] Start: 06-29-2020 End: 12-28-2023 Tobacco use panel [facility] National Score (1-100), lower number is lower risk Not on file [facility] Medical Equipment Procedure Code Equipment Code Equipment Origin al Text Equipment Identifier Dates Implantable incontinence-contro l electrical stimulation system [id number] FDA Start: 10-25-2021 [id number] FDA Start: 10-25-2021 USE TO TEST ONCE DAILY EVERY MORNING. Start: 10-14-2023 Comment on above: USE TO TEST ONCE PIERRE LY EVERY MORNING. Clinical Notes 10-20-2021 to 02-15-2024 Darrel Champagne RRT - 02/15/2024 5:00 PM EDTTelephone Encounter - John Veras - 01/22/2024 2:46 PM EDTPatient Ubaldo Beasley MD - 12/28/2023 1:30 PM EST Note Date & Type Note Facility 02-15-2024 Note HNO ID: [id number] Author: DARREL CHAMPAGNE RRT Service: ? Author Type: Registered Resp Therapist Type: Progress Notes Filed: 02/15/2024 17:02 Note Text: Faxed nebulizer rx to [facility] in [place] [phone], fax [phone] Darrel Champagne RRT [facility] 02-15-2024 History of Presen t illness Narrative Faxed nebulizer rx to [facility] in [place] ph [phone], fax [phone] Darrel Champagne RRT documented in this encounter [facility] 01-22-2024 Miscellaneous Notes Images from the original note were not included. Imported external notification of equipment delivery from [employer], dated 01/16/2024. Please allow time delay for documents to appear in Epic (Scanned Documents Tab). Images can take up to 24 hours to appear in Epic. documented in this encounter [facility] 12-28-2023 Note HNO ID: [id number] Author: UBALDO HDZ MD Service: ? Author Type: Physician Type: Progress Notes Filed: 2024 13:33 Note Text: [facility] [place] Karuna Reynaga is a 78 year old female here for evaluation by the [facility] Interstitial Lung Disease Team. Consultation requested by self for an opinion regarding ILD and my final recommendations will be communicated back to the requesting physician by way of shared Medical record or letter via US mail. Referring diagnosis: Undetermined HISTORY OF PRESENT ILLNESS: Initially saw Dr. Alcala in 2019 for evaluation of ILD. She had a cough and dyspnea on exertion. She had dysphagia and there was concern for aspiration-related injury. She had a 10 pk yr history of smoking but quit in 1979. Her PFTs were not valid due to technique. Her CT from 2013 showed emphysematous changes and post-inflammatory changes in the right apex and this was unchanged on a repeat CT in 2019. There was minimal interstitial changes in the superior segment of the RLL. There was discussion of bronchoscopy and workup for aspiration but this was deferred. She was started on nebulizer therapy due to inability to use an inhaler. She did really well for a while. For the past 6 months her cough has gotten worse and it seems more productive. She normally has crackles in just one lung but now she has them on both sides. She is no longer using the nebulizer machine. She has been taking PPI and allergy medicine with no improvement. Past ILD History: Date of symptom onset: 2018 Date of Diagnosis: Pending/unconfirmed Diagnosis confirmed by: Provisional diagnosis Immediate relative with ILD: None Pulmonary hypertension: No suspicion Past ILD Therapies: Current ILD medications: No medication Past ILD medications: No medication CHIEF COMPLIANT: Patient presents with: New REVIEW OF SYSTEMS: All other ROS: negative As noted in HPI No past medical history on file. Allergic rhinitis due to pollen Asthma (CMS/HCC) Asthma (CMS/HCC) Brain injury (CMS/HCC) NEC Combined hyperlipidemia (CMS/HCC) Depressive disorder (CMS/HCC) Endometrial thickening on ultrasound Fall 08/2018 Fell and clean fracture of 2 bones in left forearm. Female stress incontinence Hallux valgus (acquired), left foot Hallux valgus (acquired), right foot Hypothyroidism (CMS/HCC) Intestinal disaccharidase deficiencies and disaccharide malabsorption Memory loss Memory loss Obesity (BMI 35.0-39.9 without comorbidity) Overactive bladder Senile osteoporosis (CMS/HCC) Transient cerebral ischemia, unspecified type Type 2 diabetes mellitus without complication (CMS/HCC) No past surgical history on file. 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 SOCIAL HISTORY Social History Tobacco Use Smoking status: Former Packs/day: 1.00 Years: 10.00 Additional pack years: 0.00 Total pack years: 10.00 Types: Cigarettes Quit date: 11/05/1979 Years since quittin.1 Smokeless tobacco: Never Alcohol Use: No Drug Use: No FAMILY HISTORY Problem Relation Age of Onset Thyroid Daughter hypothyroidism Coronary Artery Disease Brother Stroke Sister Stroke Mother Cancer Sister cervical ALLERGIES Allergen Reactions Darvocet A500 [Prop* Rash Latex Rash Penicillins Rash Strawberries Rash Sulfa (Sulfonamide * Rash CURRENT MEDICATIONS: Cholecalciferol, Vitamin D3, 50 mcg (2,000 unit) cap Daily estradiol (ESTRACE) 0.01 % (0.1 mg/gram) vaginal cream Use 1 g vaginally. Ibandronate 150 mg tablet Take 1 tablet by mouth. TRUEPLUS LANCETS 33 gauge USE TO TEST ONCE DAILY EVERY MORNING. liothyronine (CYTOMEL) 5 mcg tablet Take 1 tablet by mouth every 12 hours. loperamide (IMODIUM) 2 mg cap(s) Every morning omeprazole (PRILOSEC) 40 mg capsule Take by mouth at bedtime as needed. levothyroxine (SYNTHROID) 50 mcg tablet 50 mcg. clopidogrel bisulfate(PLAVIX 75 MG TAB) Take one(1) tablet daily. OXYBUTYNIN CHLORIDE 5 MG/5 ML SYRUP Take one(1) tablet two(2) times daily. CALCIUM 500 MG TAB Take one(1) tablet twice daily. MULTIVITAMIN TAB Take one(1) tablet daily. PHYSICAL EXAM: BP 137/65 Pulse 67 Temp (Src) 97.6 (Temporal) Resp 16 Wt 175 lb (79.4kg) SpO2 97% GENERAL APPEARANCE: Well appearing, alert, in no acute distress, well-hydrated. INTEGUMENTARY: Skin color, texture, turgor normal, no rashes or lesions. No sclerodactyly. EYES: Anicteric sclera. Pupils are equally round and reactive to light. Extraocular movements are intact. ENT: Nares patent. Oropharynx clear. HEME/LYMPH: Supple neck. No adenopathy. Thy (more content not included)... [facility] 12-28-2023 Instructions Ubaldo Hdz MD - 12/28/2023 2:11 PM EST It was a pleasure to see you today. Thank you for allowing me to be involved in your care. Based on your exam, imaging, and other results the most likely diagnosis is scarring related to microaspiration and bronchiectasis. Based on your pulmonary functions tests you have moderate restriction of the lungs and moderate impairment of gas exchange in the lungs. My recommendations from this visit are: Start acapella therapy and martel coughing every morning Start VEST therapy every day (I will send a prescription to a [facility]) How to Use the Acapella Assure proper setting of the dial on the end of the Acapella. This is the end opposite the mouthpiece. Your health care provider will set the dial when you get your Acapella. Rotate the end toward the + (plus) to increase resistance. Rotate the end toward - (minus) to decrease resistance. Sit up with good posture to use the Acapella. Take in a fairly deep breath and hold it for about [address] Acapella mouthpiece in your mouth. Seal your lips tightly around the mouthpiece. Exhale as much as possible (but not to forcefully) through the mouthpiece. Keep your cheeks as firm as possible when you exhale. Try not to inhale through the device. Repeat this maneuver for 10 breaths. Try to resist coughing during this phase. After these 10 blows, perform 3 huffs, then a big cough to bring the sputum up and out. Try not to swallow the mucus. Huffing is not as forceful as a cough, but it can work better and be less tiring. Remember, a martel cough is like exhaling onto a mirror to steam it up. The Martel Coughing Technique: Sit up straight with chin tilted slightly up and mouth open. Take a slow deep breath to fill lungs about three quarters full. Hold breath for two or three seconds. Exhale forcefully, but slowly, in a continuous exhalation to move mucus from the smaller to the larger airways. Repeat this maneuver two more times and then follow with one strong cough to clear mucus from the larger airways. Do a cycle of four to five martel coughs as part of your airway clearance. How to Clean and Care for the Acapella (green or blue) Wash your hands. Clean the Acapella every day. Take the mouthpiece off the Acapella body. The mouthpiece and body need to be washed. Daily - Clean the mouthpiece and body of the Acapella daily with liquid dish detergent - Rinse with water. Disinfect Weekly - Clean the mouthpiece and body with alcohol - soak both parts in 70 percent isopropyl alcohol for 5 minutes. OR Clean mouthpiece and body with hydrogen peroxide - soak both parts in 3 percent hydrogen peroxide for 30 minutes. Note: The Acapella should not be placed in the automatic carbonizer, boiled or bleached. 4. Rinse in clean water. 5. Shake off excess water. 6. Drain dry the device. Place each piece downward or rest the unit on its side. 7. Replace the mouthpiece when the unit is completely dry and ready for use. documented in this encounter [facility] 12-28-2023 History of Presen t illness Narrative Images from the original note were not included. [facility] [place] Karuna Reynaga is a 78 year old female here for evaluation by the [facility] Interstitial Lung Disease Team. Consultation requested by self for an opinion regarding ILD and my final recommendations will be communicated back to the requesting physician by way of shared Medical record or letter via [place] mail. Referring diagnosis: Undetermined HISTORY OF PRESENT ILLNESS: Initially saw Dr. Alcala in 2019 for evaluation of ILD. She had a cough and dyspnea on exertion. She had dysphagia and there was concern for aspiration-related injury. She had a 10 pk yr history of smoking but quit in 1979. Her PFTs were not valid due to technique. Her CT from 2013 showed emphysematous changes and post-inflammatory changes in the right apex and this was unchanged on a repeat CT in 2019. There was minimal interstitial changes in the superior segment of the RLL. There was discussion of bronchoscopy and workup for aspiration but this was deferred. She was started on nebulizer therapy due to inability to use an inhaler. She did really well for a while. For the past 6 months her cough has gotten worse and it seems more productive. She normally has crackles in just one lung but now she has them on both sides. She is no longer using the nebulizer machine. She has been taking PPI and allergy medicine with no improvement. Past ILD History: Date of symptom onset: 2018 Date of Diagnosis: Pending/unconfirmed Diagnosis confirmed by: Provisional diagnosis Immediate relative with ILD: None Pulmonary hypertension: No suspicion Past ILD Therapies: Current ILD medications: No medication Past ILD medications: No medication CHIEF COMPLIANT: Patient presents with: New REVIEW OF SYSTEMS: All other ROS: negative As noted in HPI No past medical history on file. Allergic rhinitis due to pollen Asthma (CMS/HCC) Asthma (CMS/HCC) Brain injury (CMS/HCC) NEC Combined hyperlipidemia (CMS/HCC) Depressive disorder (CMS/HCC) Endometrial thickening on ultrasound Fall 08/2018 Fell and clean fracture of 2 bones in left forearm. Female stress incontinence Hallux valgus (acquired), left foot Hallux valgus (acquired), right foot Hypothyroidism (CMS/HCC) Intestinal disaccharidase deficiencies and disaccharide malabsorption Memory loss Memory loss Obesity (BMI 35.0-39.9 without comorbidity) Overactive bladder Senile osteoporosis (CMS/HCC) Transient cerebral ischemia, unspecified type Type 2 diabetes mellitus without complication (CMS/HCC) No past surgical history on file. 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 SOCIAL HISTORY Social History Tobacco Use Smoking status: Former Packs/day: 1.00 Years: 10.00 Additional pack years: 0.00 Total pack years: 10.00 Types: Cigarettes Quit date: 11/05/1979 Years since quittin.1 Smokeless tobacco: Never Alcohol Use: No Drug Use: No FAMILY HISTORY Problem Relation Age of Onset Thyroid Daughter hypothyroidism Coronary Artery Disease Brother Stroke Sister Stroke Mother Cancer Sister cervical ALLERGIES Allergen Reactions Darvocet A500 [Prop* Rash Latex Rash Penicillins Rash Strawberries Rash Sulfa (Sulfonamide * Rash CURRENT MEDICATIONS: Cholecalciferol, Vitamin D3, 50 mcg (2,000 unit) cap Daily estradiol (ESTRACE) 0.01 % (0.1 mg/gram) vaginal cream Use 1 g vaginally. Ibandronate 150 mg tablet Take 1 tablet by mouth. TRUEPLUS LANCETS 33 gauge USE TO TEST ONCE DAILY EVERY MORNING. liothyronine (CYTOMEL) 5 mcg tablet Take 1 tablet by mouth every 12 hours. loperamide (IMODIUM) 2 mg cap(s) Every morning omeprazole (PRILOSEC) 40 mg capsule Take by mouth at bedtime as needed. levothyroxine (SYNTHROID) 50 mcg tablet 50 mcg. clopidogrel bisulfate(PLAVIX 75 MG TAB) Take one(1) tablet daily. OXYBUTYNIN CHLORIDE 5 MG/5 ML SYRUP Take one(1) tablet two(2) times daily. CALCIUM 500 MG TAB Take one(1) tablet twice daily. MULTIVITAMIN TAB Take one(1) tablet daily. PHYSICAL EXAM: BP 137/65 Pulse 67 Temp (Src) 97.6 (Temporal) Resp 16 Wt 175 lb (79.4kg) SpO2 97% GENERAL APPEARANCE: Well appearing, alert, in no acute distress, well-hydrated. INTEGUMENTARY: Skin color, texture, turgor normal, no rashes or lesions. No sclerodactyly. EYES: Anicteric sclera. Pupils are equally round and reactive to light. Extraocular movements are intact. ENT: Nares patent. Oropharynx clear. HEME/LYMPH: Supple neck. No adenopathy. Thyroid symmetric, normal size, no bruits. RESPIRATORY: Bibasilar inspiratory rales CARDIOVASCULAR: No edema. RRR without murmur, gallop, or rubs. No ectopy. GI: Normal abdominal exam. Abdomen soft, non-tender. Bowel sounds normal. No masses, organomegaly. MUSCULOSKELETAL: No clubbing. No arthritis. No deformities or cyanosis. Gait normal. PSYCH: No signs of depression or anxiety. NEURO: Non-focal. Sensation grossly intact. DATA REVIEWED (independently reviewed by myself) Laboratory Data Laboratory data reviewed in [facility] Everywhere. Pulmonary Function Data PFT available: Yes. PFT results see below. Date FEV1/FVC FEV1 (L,%) FVC (L,%) DLCO, % TLC (L,%) Other 06/29/20 89 1.24/73.1 1.39/64.2 8.56/48.5 Poor technique 12/25/23 89 1.05/69 1.19/61 9.76/57 Poor technique Six minute walk Six minute walk available: No Radiology Is a CT scan available?: Standard CT available CT Chest 12/27/23 Mild emphysema in the upper lobes. Bronchiectasis and reticular changes in the dependent regions of both lower lobes. Mostly unchanged from previous CT in 2020. ASSESSMENT Karuna Reynaga is a 78 year old female with a history of recurrent microaspiration presenting for evaluation of worsening of cough over the past 6 months. Her imaging is consistent with bronchiectasis and mild pulmonary fibrosis in the dependent regions of the lungs consistent with recurrent microaspiration. I provided her with an acapella device and instructed her how to use it but her [id number] states that she will likely not be compliant with this due to her traumatic brain injury. I recommended nebulizer therapy as well but they do not think she will be able to be compliant with this. One option that she could be compliant with is daily vest percussion therapy so I am recommending that. It is difficult to determine what her pulmonary function truly is due to her inability to perform the test properly. PLAN Treating diagnosis: Chronic aspiration pneumonitis ILD medications at end of visit: No medication Provided acapella with instructions on how to use, along with martel coughing (family will try to help with this) She cannot correctly use nebulizer machine because of her traumatic brain injury Vest percussion therapy daily Return in 4 months with repeat pulmonary function testing ILD CHECKLIST Is the patient being treated with oxygen therapy?: No Is the patient being referred for transplantation?: No Ubaldo Hdz MD December 28, 2023 5:04 PM CC: documented in this encounter [facility] 12-27-2023 Note HNO ID: [id number] Author: DAMASO GUTHRIE RT(R) Service: ? Author Type: Technologist Type: Procedures Filed: 12/27/2023 13:10 Note Text: Radiology Service Progress Note PATIENT NAME: Karuna Reynaga DATE OF SERVICE: December 27, 2023 TIME: 1:09 PM PATIENT IDENTITY VERIFICATION COMPLETED USING TWO (2) IDENTIFIERS: Name and Date of confirmed by patient verbally. FALL SCREENING: Has the patient had 2 falls in the last year or 1 fall with injury or currently using an Ambulatory Assistive Device (Walker, Cane, Wheelchair, Crutches, etc.)? No PATIENT GENDER DATA: Female. status: : No status: NO. PATIENT RELEVANT IMPLANT DATA REVIEWED: Not Applicable PATIENT PRESENTS WITH AN IMPLANTABLE OR ATTACHED NUCLEAR UNIT OPERATOR: No RADIOLOGY DEPARTMENT: CT; Exam(s) Completed: Chest PERIPHERAL IV DATA: Not applicable SIGNED BY: RT Reginald(R) December 27, 2023 1:09 PM [facility] 12-25-2023 Note HNO ID: [id number] Author: YAMINI LAN RRT Service: ? Author Type: Registered Resp Therapist Type: Progress Notes Filed: 12/25/2023 15:11 Note Text: Pulmonary Function Test [facility] 12-25-2023 Note HNO ID: [id number] Author: YAMINI LAN RRT Service: ? Author Type: Registered Resp Therapist Type: Progress Notes Filed: 12/25/2023 15:00 Note Text: PULM FUNCTION SMARTBLOCK: Provider: Ubaldo Hdz MD Spirometry: 1 DLCO: 1 [facility] 12-25-2023 History of Presen t illness Narrative Pulmonary Function Test documented in this encounter [facility] 12-25-2023 History of Presen t illness Narrative PULM FUNCTION SMARTBLOCK: Provider: Ubaldo Hdz MD Spirometry: 1 DLCO: 1 documented in this encounter [facility] 02-20-2023 Evaluation note Authored February 21, 2024 11:21am 79-year-old female referred to the gastroenterology clinic for evaluation of heartburn. Patient patient was accompanied by her daughter who helped with history intake because patient has memory loss Patient was on Prilosec for many years for acid reflux. Prilosec was stopped a year ago. However it is unclear if patient have recurrent acid reflux because patient has memory loss. Patient reports intermittent dysphagia and recurrent cough. -Arrange for EGD to assess for Mendes's and to evaluate dysphagia then determine the need for PPI [facility] Work Phone: [phone] 648-177712-16-2021 NoteHISTORY: Bone density screening. COMPARISON: None available. PROCEDURE: Imaging of the lumbar spine and bilateral hips was obtained for bone density evaluation. FINDINGS: REGION BMD (g/cm??) YOUNG ADULT T-SCORE AGE-MATCHED Z-SCORE LEFT NECK 0.688 -1.5 0.7 RIGHT NECK 0.641 -1.9 0.2 LUMBAR 1.041 -0.1 2.4 The mean BMD and corresponding T-score listed above indicate: Osteopenia and places the patient at a mild to moderate increased risk for fracture. There may be a future risk of developing osteoporosis. Recommend follow-up exam in 1 year, sooner as clinically necessary. Comment: The T-score is the primary focus of the interpretation of a patient???s bone mineral density measurement. The T-score is the number of standard deviations and individual is above or below the mean value for a young female having normal bone mass. The WHO defines osteoporosis based on the T-score value: +1.0 to -0.9 : Normal bone mass -1.0 to -2.5 : Osteopenia and thus may be at future risk of fracture. -2.6 to -5.0 : Osteoporosis and at significantly increased risk of fracture. 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) Mixed hyperlipidemia [facility] Diagnosis Dermatophytosis of nail- Primary Well controlled type 2 diabetes mellitus with neurological manifestations (HCC) Type II or unspecified type diabetes mellitus with neurological manifestations, not stated as uncontrolled Unspecified hypothyroidism [facility] Diagnosis Dermatophytosis of nail- Primary [facility] note* Diagnosis ILD (interstitial lung disease) (HCC)- Primary Postinflammatory pulmonary fibrosis Shortness of breath [facility] Diagnosis Bronchiectasis without complication (HCC)- Primary Bronchiectasis without acute exacerbation Aspiration pneumonitis (HCC) Pneumonitis due to inhalation of food or vomitus Traumatic brain injury with loss of consciousness, sequela (HCC) [facility] Diagnosis Onset Date Resolution Status Bronchitis noneactive [facility] Work Phone: Evaluation note* Diagnosis Bronchiectasis without complication (HCC)- Primary Bronchiectasis without acute exacerbation [facility] Outpatient Procedure (Routine) - Authorized Specialty Diagnoses / Procedures Referred By Marie duff Referred To [facility] Diagnoses Bronchiectasis without complication (HCC) Procedures LUNG DIFFUSION CAPACITY (DLCO) DIFFUSING CAPACITY Ubaldo Hdz MD [address] [place] [address] [facility] [place] [address] [place] [id number] Referral ID Status Reason Start Date Expiration Date Visits Requested Visits Authorized [id number] Authorized Auto-Generat ed Referral 12/28/2023 01/26/2025 1 1 * Outpatient Procedure (Routine) - Authorized Specialty Diagnoses / Procedures Referred By Marie duff Referred To [facility] Diagnoses Bronchiectasis without complication (HCC) Procedures SPIROMETRY BASELINE ONLY SPMTRY W/VC EXPIRATORY MIRIAM W/WO MXML VOL VNTJ Ubaldo Hdz MD [address] [place] [address] [address] Referral ID Status Reason Start Date Expiration Date Visits Requested Visits Authorized [id number] Authorized Auto-Generat ed Referral 12/28/2023 01/26/2025 1 1 [facility] Family History Unknown Family Member Name Dates Details Family history of myocardial infarction: Brother(V17.3, Z82.49) Status:Active Relationship Condition Age at Onset Recorded Date/T everette Not Specified Alzheimer's disease Unknown Cerebrovascular accident (CVA) Unknown Diabetes mellitus Unknown father Diabetes mellitus Unknown brother Diabetes mellitus Unknown Heart disease Unknown sister Cerebrovascular accident (CVA) Unknown Summary Purpose Advance Directives Advance Directive Response Recorded Date/ Time Advance Directives Yes December 12:34pm Advance Directive Response Recorded Date/ Time Advance Directives Yes December 1:34pm Chief Complaint and Reason for Visit Chief Complaint Thickened Endometriu m, Presence of Interstim Chief Complaint E03.9 r05.1 Chief Complaint r05.1 dysphagia- vital stim Dysphagia Chief Complaint r05.1 Dysphagia dysphagia- vital stim Cough Chief Complaint r05.1 Dysphagia dysphagia- vital stim Cough Reason for Visit Bronchitis Chief Complaint Dysphagia Cough R06.00 dysphagia- vital stim Acid reflux Reason for Visit Bronchitis Dysphagia GERD (gastroesophageal reflux disease) Globus sensation Additional Source Comments Goals (unrecognized section and content) Goals may be documented in a n alternate sectionGoals may be documented in an alternate sectionGoals may be documented in an alternate sectionGoals may be documented in an alternate sectionGoals may be documented in an alternate sectionGoals may be documented in an alternate sectionGoals may be documented in an alternate sectionGoals may be documented in an alternate section INFORMATION SOURCE (unrecogn ized section and content) DATE CREATED AUTHOR 10/21/2021 [facility] dical Specialist DATE CREATED AUTHOR AUTHOR'S ORGANIZ ATION 10/22/2021 [employer] DATE CREATED AUTHOR AUTHOR'S ORGANIZ ATION 02/12/2023 [facility] DATE CREATED AUTHOR AUTHOR'S ORGANIZ ATION 02/14/2024 [facility] dical Specialists EPIC DATE CREATED AUTHOR AUTHOR'S ORGANIZ ATION 02/15/2024 [facility] DATE CREATED AUTHOR AUTHOR'S ORGANIZ ATION 02/17/2024 [facility] Source Comments (unrecognize d section and content) In the event this informatio n is protected by the Federal Confidentiality of Alcohol and Drug Abuse Patient Records regulations: The Federal rules restrict any use of the information to criminally investigate or prosecute any alcohol or drug abuse patient.[facility] the event this information is protected by the Federal Confidentiality of Alcohol and Drug Abuse Patient Records regulations: The Federal rules restrict any use of the information to criminally investigate or prosecute any alcohol or drug abuse patient.[facility] the event this information is protected by the Federal Confidentiality of Alcohol and Drug Abuse Patient Records regulations: The Federal rules restrict any use of the information to criminally investigate or prosecute any alcohol or drug abuse patient.[facility] the event this information is protected by the Federal Confidentiality of Alcohol and Drug Abuse Patient Records regulations: The Federal rules restrict any use of the information to criminally investigate or prosecute any alcohol or drug abuse patient.[facility] the event this information is protected by the Federal Confidentiality of Alcohol and Drug Abuse Patient Records regulations: The Federal rules restrict any use of the information to criminally investigate or prosecute any alcohol or drug abuse patient.[facility] System[facility] the event this information is protected by the Federal Confidentiality of Alcohol and Drug Abuse Patient Records regulations: The Federal rules restrict any use of the information to criminally investigate or prosecute any alcohol or drug abuse patient.[facility] System[facility] the event this information is protected by the Federal Confidentiality of Alcohol and Drug Abuse Patient Records regulations: The Federal rules restrict any use of the information to criminally investigate or prosecute any alcohol or drug abuse patient.[facility] System[facility] the event this information is protected by the Federal Confidentiality of Alcohol and Drug Abuse Patient Records regulations: The Federal rules restrict any use of the information to criminally investigate or prosecute any alcohol or drug abuse patient.[facility] System[facility] the event this information is protected by the Federal Confidentiality of Alcohol and Drug Abuse Patient Records regulations: The Federal rules restrict any use of the information to criminally investigate or prosecute any alcohol or drug abuse patient.[facility] Care Teams (unrecognized sec tion and content) Program Development Specialist Relationship Specialty Start Date End Date Ash Vance, DO [address] [place] [address] PCP General 05/25/09 Program Development Specialist Relationship Specialty Start Date End Date Ash Vance, DO [address] [place] [address] PCP - General 05/25/09 Program Development Specialist Relationship Specialty Start Date End Date Ash Vance, DO [address] [place] [address] PCP - General 05/25/09 Team Status: Inactive Member Role Status Dates Jamal Alvarez DO Primary Care Provider Active Hermes Kennedy DO Attending Provider Active Team Status: Active Member Role Status Dates Jamal Alvarez DO Primary Care Provider Active Team Status: Inactive Member Role Status Dates Jamal Alvarez DO Primary Care Provider Active Valdez Castro MD Attending Provider Active Team Status: Inactive Member Role Status Dates Jamal Alvarez DO Primary Care Provider Active Start: October 16, 2023 End: October 16, 2023 Valdez Castro MD Attending Provider Active S tart: October 16, 2023 End: October 16, 2023 Team Status: Inactive Member Role Status Dates Jamal Alvarez DO Primary Care Provide r, Attending Provider Active Start: November 21, 2023 End: November 21, 2023 Program Development Specialist Relationship Specialty Start Date End Date Jamal Alvarez DO [address] [address] PCP - General Internal Medicine 12/25/23 Program Development Specialist Relationship Specialty Start Date End Date AntonioJamal [address] [place] [address] PCP - General Internal Medicine 12/25/23 Program Development Specialist Relationship Specialty Start Date End Date AntonioJamalDO breezy [address] [place] [address] PCP - General Internal Medicine 12/25/23 Team Status: Active Member Role Status Dates Jamal Alvarez DO Primary Care Provide r, Attending Provider Active Start: January 14, 2024 Team Status: Inactive Member Role Status Dates Jamal Alvarez DO Primary Care Provide r, Attending Provider Active Start: January 23, 2024 End: January 23, 2024 Team Status: Active Member Role Status Dates Jamal Alvarez DO Primary Care Provide r, Attending Provider Active Start: February 12, 2024 Team Status: Inactive Member Role Status Dates Jamal Alvarez DO Primary Care Provider Active Start: February 13, 2024 End: February 13, 2024 CORNELIUS Torres Attending Provider Active S tart: February 13, 2024 End: February 13, 2024 Team Status: Active Member Role Status Dates Jamal Alvarez DO Primary Care Provider Active Start: February 13, 2024 CORNELIUS Torres Attending Provider Active S tart: February 13, 2024 Program Development Specialist Relationship Specialty Start Date End Date AntonioJamal DO [address] [place] [address] PCP - General Internal Medicine 12/25/23 Team Status: Active Member Role Status Dates Jamal Alvarez DO Primary Care Provide r, Attending Provider Active Start: February 19, 2024 Team Status: Inactive Member Role Status Dates Jamal Alvarez DO Primary Care Provider Active Start: February 21, 2024 End: February 21, 2024 Flex Ramos MD Attending Provider Active Start: February 21, 2024 End: February 21, 2024 Reason for Visit (unrecogniz ed section and content) Reason Comments Spirometry Specialty Diagnoses / Procedures Referred By Contac t Referred To Contact [facility] Diagnoses ILD (interstitial lung disease) (HCC) Shortness of breath Procedures SPIROMETRY WITH DILATOR IF OBSTRUCTED BRNCDILAT RSPSE SPMTRY PRE&POST-BRNCDILAT ADMN Dee Leal, PARTNER INTEGRATION PLANNER.AUTOMATION MANAGER [address] [place] [id number] [facility] [place] [address] [place] [phone] Referral ID Status Reason Start Date Expiration Date V isits Requested Visits Authorized [id number] Closed Auto-Generate d Referral 12/11/2023 01/09/2025 1 1 Specialty Diagnoses / Procedures Referred By Contac t Referred To Contact [facility] Diagnoses ILD (interstitial lung disease) (HCC) Shortness of breath Procedures LUNG DIFFUSION CAPACITY (DLCO) DIFFUSING CAPACITY Dee Leal, PARTNER INTEGRATION PLANNER.AUTOMATION MANAGER [address] [place] [id number] [place] [id number] Referral ID Status Reason Start Date Expiration Date V isits Requested Visits Authorized [id number] Closed Auto-Generate d Referral 12/11/2023 01/09/2025 1 1 Reason Comments New Reason Comments Received Outside Medical Records FOR RECORDS PERTAINING TO PATIENTS WHO ARE OR HAVE BEEN ENROLLED IN A CHEMICAL DEPENDENCY/SUBSTANCEABUSE PROGRAM, SOME INFORMATION MAY BE OMITTED. This clinical summary was aggregated from multiple sources. Caution should be exercised in using it in the provision of clinical care. This summary normalizes information from multiple sources, and as a consequence, information in this document may materially change the coding, format and clinical context of patient data. In addition, data may be omitted in some cases. CLINICAL DECISIONS SHOULD BE BASED ON THE PRIMARY CLINICAL RECORDS. [employer] [facility]. provides no warranty or guarantee of the accuracy or completeness of information in this document.
--- NOTE | 2024-02-22 18:22 | ED_ITS ---
HPI HPI - General Adult General Chief complaint: Shortness of Breath/Dyspnea Stated complaint: dx pneumonia, spasms, pain Time Seen by Provider: 02/22/24 18:08 Source: family Mode of arrival: walk-in Limitations: altered mental status Limitations comment: Daughter states patient is unable to answer questions appropriately due to brain injury in the past. Patient answering questions appropriately. 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 Lives with her daughter who is present at bedside. Daughter states her Chief concern is that she may be having electrolyte imbalance, patient developed upper respiratory symptoms on Sunday, was seen same day at [facility] with negative swabs, she did follow-up today with her family doctor and was diagnosed with pneumonia had an outpatient chest x-ray and took her first dose of Zithromax today. The patient herself at bedside has no complaints, daughter states she is short of breath with activity and coughs. The patient reports she is having no pain or discomfort. She appears in no distress. Daughter producing lab results from a screen shot without a date showing hyponatremia, who patient did have lab work ordered by her PCP that was performed today but results are not yet back on her patient portal/cell phone bedside. Daughter states the patient has complained of right hip pain in the past, also had outpatient x-ray showing arthritis and has noted spasms in her arms and legs as her main concern for the electrolyte imbalance, patient has no complaints or tenderness at this time. Onset (ago): day(s) (5) Treatments prior to arrival: Reports other (zithromax) Related Data Home Medications ?Medication ?Instructions ?Recorded ?Confirmed clopidogrel 75 mg tablet 75 mg PO DAILY 02/22/24 02/22/24 desmopressin 0.2 mg tablet 0.2 mg PO BEDTIME 02/22/24 02/22/24 ibandronate 150 mg tablet 150 mg PO .monthly 02/22/24 02/22/24 levothyroxine 50 mcg tablet 50 mcg PO DAILY 02/22/24 02/22/24 liothyronine 5 mcg tablet 5 mcg PO BID 02/22/24 02/22/24 oxybutynin chloride 5 mg 5 mg PO BEDTIME 04/19/24 04/19/24 tablet,extended release 24 hr simvastatin 20 mg tablet 20 mg PO DAILY 02/22/24 02/22/24 Allergies Allergy/AdvReac Type Severity Reaction Status Date / Time codeine Allergy Unknown Verified 08/27/23 12:11 Sulfa (Sulfonamide Allergy Verified 08/27/23 12:11 Antibiotics) Opioid HPI Opioid Management Most Recent Opioid Data: No Data to Display Review of Systems ROS Narrative Daughter on patient's symptoms, patient has no complaints Constitutional Denies: fever or chills Cardiovascular Denies: chest pain, palpitations or edema Respiratory Reports: shortness of breath and cough; Denies: wheezing, stridor or pain on inspiration Gastrointestinal Denies: abdominal pain or nausea Genitourinary Denies: painful urination Musculoskeletal Denies: back pain or neck pain Integumentary/Breast Denies: rash Neurological Denies: headache Psychiatric Denies: anxiety Endocrine Denies: excessive urination Allergic/Immunologic Denies: hives PFSH PFSH Social History Smoking status: Former smoker Exam Narrative Exam Narrative: Nurses notes and vital signs reviewed and patient is not hypoxic. General: The patient appears well and in no apparent distress. Patient is resting comfortably on cart. Skin: Warm, dry, no pallor noted. Head: Normocephalic, + bruise forehead midline at hair line. Neck: Supple, trachea mid-line, no tenderness, no lymphadenopathy Eye: Pupils are equal, round and reactive to light, EOMI Ears, Nose, Mouth, and Throat: TM are clear, normal light reflex, oral mucosa is moist,dentures present,no posterior oropharynx erythema or hypertrophy, uvula is mid-line Cardiovascular: Regular Rate and Rhythm Respiratory: Patient is in no distress, no accessory muscle use, lungs are clear to auscultation, no wheezing, rales or rhonchi. Chest Wall: no tenderness Back: non-tender, no CVA tenderness Musculoskeletal: normal ROM, no tenderness, no swelling GI: Normal bowel sounds, no tenderness to palpation, no masses appreciated. No rebound, guarding, or rigidity noted. Neurological: A&O to Person, place, daughter at bedside. Psychiatric: Cooperative Constitutional Vital Signs, click to edit/add: Last Vital Signs Temp 98.0 F 02/22/24 18:08 Pulse 71 02/22/24 18:08 Resp 16 02/22/24 18:08 BP 141/59 02/22/24 18:08 Pulse Ox 96 02/22/24 18:08 O2 Del Method Room Air 02/22/24 18:08 Course Vital Signs Vital signs: Vital Signs Temperature 98.0 F 02/22/24 18:08 Pulse Rate 71 02/22/24 18:08 Respiratory Rate 16 02/22/24 18:08 Blood Pressure 141/59 02/22/24 18:08 Pulse Oximetry 96 02/22/24 18:08 Oxygen Delivery Method Room Air 02/22/24 18:08 Temperature 98.0 F 02/22/24 18:08 Pulse Rate 71 02/22/24 18:08 Respiratory Rate 16 02/22/24 18:08 Blood Pressure 141/59 02/22/24 18:08 Pulse Oximetry 96 02/22/24 18:08 Oxygen Delivery Method Room Air 02/22/24 18:08 Medical Decision Making MDM Narrative Medical decision making narrative: [facility] contacted for chest x-ray report, images to get pushed to PACS for review, lab work will be checked, patient's daughter at bedside with [facility] autumn, not able to show me recent labs showing concern of hyponatremia, labs done today with no results noted in previous studies from a year ago. Pt Ambulated to the bathroom and appears in no distress. ecorted by RN. Vitals stable. Daughter denies fall, Discussed Bruise to head, daughters concern of increased confusion and possibility of unwitnessed fall as she lives in a house behind hers by herself..Daughter did not appreciate bruise to head until looking at her in bed with lighting.. I feel like it is spreading as we sit her. Pt denies hitting her head in ER or at home, RN noted bruise at triage, but pt/ family denied recent injury only reporting memory loss from prior head injury .....agreeable to CT Head. -Labs noting possible UTI, hyponatremia, outpatient chest x-ray was asked to be pushed to the PACS with concerning of interstitial pneumonia. Patient be given Rocephin 1 g IV. Patient does not appear septic. Likely more metabolic cause for her confusion from baseline per daughter. Case discussed with Kathrin the hospitalist, she is agreeable to admission, recommends MedSurg, with patient's hyponatremia, confusion will place inpatient. Medical Records Medical records reviewed: Yes I reviewed the patient's medical records Medical records narrative: Chest x-ray from 02/22/2024 [facility] imaging shows possible interstitial pneumonia, increased interstitial markings throughout both lungs greatest within the right upper lobe. Lingula and both posterior basilar regions. No pulmonary edema or effusions. No hilar lymphadenopathy. Right medial hemidiaphragm eventration noted.X-ray of the Left hip shows mild arthritis no acute fractures Lab Data Lab results reviewed: Yes I reviewed the patient's lab results Labs: Lab Results 02/22/24 02/22/24 Range/Units 18:25 18:38 WBC 8.0 (4.0-11.0) 10^3/uL RBC 4.09 L (4.20-5.40) 10^6/uL Hgb 12.5 (12.0-16.0) g/dL Hct 35.7 L (36.0-48.0) % MCV 87.3 (81.0-99.0) fL MCH 30.6 (26.7-34.0) pg MCHC 35.0 (29.9-35.2) g/dL RDW 11.9 (11.0-15.0) % Plt Count 300 (150-450) 10^3/uL MPV 9.3 L (9.5-13.5) fL Neut % (Auto) 57.0 (43.0-75.0) % Lymph % (Auto) 30.4 (20.5-60.0) % [place] % (Auto) 8.8 (1.7-12.0) % Eos % (Auto) 2.5 (0.9-7.0) % Baso % (Auto) 1.0 (0.2-2.0) % Neut # (Auto) 4.5 (1.4-6.5) 10^3/uL Lymph # (Auto) 2.4 (1.2-3.8) 10^3/uL [place] # (Auto) 0.7 (0.3-0.8) 10^3/uL Eos # (Auto) 0.2 (0.0-0.7) 10^3/uL Baso # (Auto) 0.1 (0.0-0.1) 10^3/uL Abs Immat Gran (auto) 0.02 (0.00-0.03) 10^3/uL Imm/Tot Granulo (auto) 0.3 (0.0-0.5) % PT 10.1 (9.0-11.6) sec INR 0.95 APTT 31.2 (22.3-36.2) sec Sodium 124 L* (136-145) mmol/L Potassium 4.5 (3.5-5.1) mmol/L Chloride 89 L (98-107) mmol/L Carbon Dioxide 27.1 (21.0-32.0) mmol/L Anion Gap 12.4 BUN 19.0 H (7.0-18.0) mg/dL Creatinine 0.73 (0.55-1.02) mg/dL Est GFR ( Amer) >60 (>=60) Est GFR (Non-Af Amer) >60 (>=60) BUN/Creatinine Ratio 26.0 Glucose 95 (74-106) mg/dL Calcium 8.8 (8.5-10.1) mg/dL Total Bilirubin 0.3 (0.2-1.0) mg/dL AST 19 (15-37) U/L ALT 21 (14-59) U/L Alkaline Phosphatase 57 (46-116) U/L Troponin I High Sens 4.5 (4.0-51.3) pg/mL NT-Pro-B Natriuret Pep 176.0 (<=1800.0) pg/mL Total Protein 6.9 (6.4-8.2) g/dL Albumin 3.3 L (3.4-5.0) g/dL Globulin 3.6 g/dL Albumin/Globulin Ratio 0.9 Urine Color Lt. yellow (YELLOW) Urine Clarity Clear (CLEAR) Urine pH 7.0 (5.0-9.0) Ur Specific [place] 1.015 (1.005-1.025) Urine Protein Negative (NEG/TRACE) mg/dL Urine Glucose (UA) Negative (NEGATIVE) mg/dL Urine Ketones Negative (NEGATIVE) mg/dL Urine Occult Blood Trace-i (NEGATIVE) Urine Nitrite Positive A (NEGATIVE) Urine Bilirubin Negative (NEGATIVE) Urine Urobilinogen 0.2 (0.2-1.0) EU/dL Ur Leukocyte Esterase Trace A (NEGATIVE) Urine RBC 0-2 (0-2) #/HPF Urine WBC 2-5 A (NONE SEEN) #/HPF Ur Squamous Epith Cells Rare (NONE/RARE) #/LPF Urine Crystals None seen (None Seen) #/HPF Urine Bacteria Moderate A (NONE SEEN) #/HPF Urine Casts None seen (NONE SEEN) #/LPF Urine Mucus None seen (NONE SEEN) Ur Culture Indicated? Yes Imaging Data CT scan - head: Radiologist's impression: ITS Impressions Head CT 02/22/24 18:50 IMPRESSION: 1. No acute intracranial abnormality demonstrated. 2. Marked bilateral anterior frontal lobe white matter hypoattenuation. Differential includes sequela of prior trauma, radiation, and atypical remote infarct. Correlate with patient history and consider MRI of the brain with and without contrast if this finding is unexpected or noncongruent with the patient's history. Electronically authenticated by: ISELA DICKEY Date: 02/22/2024 20:04 ECG Data Attestation: I personally reviewed and interpreted this ECG as follows: Interpretation: EKG interpretation: Emergency Department physician interpretation, normal sinus rhythm, mild artifact, normal axis. No st elevation Discharge Plan Discharge Chief Complaint: Shortness of Breath/Dyspnea Clinical Impression: UTI (urinary tract infection), Altered mental status, Pneumonia, Acute hyponatremia Patient Disposition: Admitted As Inpatient Time of Disposition Decision: 20:28 Condition: Good Prescriptions / Home Meds: No Action clopidogrel 75 mg tablet 75 mg PO DAILY desmopressin 0.2 mg tablet 0.2 mg PO BEDTIME ibandronate 150 mg tablet 150 mg PO .monthly levothyroxine 50 mcg tablet 50 mcg PO DAILY liothyronine 5 mcg tablet 5 mcg PO BID oxybutynin chloride 5 mg tablet extended release 24hr 5 mg PO BEDTIME simvastatin 20 mg tablet 20 mg PO DAILY Print Language: Maldivian Referrals: IMER ALVAREZ [Primary Care Provider] - 1 week
[2024-02-22 18:37] LABS: Bilirubin Urine NEGATIVE (NEGATIVE); Blood Urine TRACE-I (NEGATIVE); Clarity Urine CLEAR (CLEAR); Color Urine LT. YELLOW (YELLOW); Glucose Urine UA NEGATIVE (NEGATIVE); Ketones Urine NEGATIVE (NEGATIVE); Leukocyte Esterase Urine TRACE (NEGATIVE); Nitrite Urine POSITIVE (NEGATIVE); Protein Urine NEGATIVE (NEG/TRACE); Specific Gravity Urine 1.015 (1.005-1.025); Urine Microscopic Indicated YES; Urobilinogen Urine 0.2 EU/dL (0.2-1.0)
[2024-02-22 18:44] LABS: Bacteria Urine MODERATE #/HPF (NONE SEEN); Cast Seen? NONE SEEN #/LPF (NONE SEEN); Crystals Seen? None Seen #/HPF (None Seen); Mucus Urine NONE SEEN (NONE SEEN); RBC Urine 0-2 #/HPF (0-2); Squamous Epithelial Cell Urine RARE #/LPF (NONE/RARE); Urine Culture Indicated YES
[2024-02-22 18:48] LABS: Basophils Absolute Auto 0.1 10^3/uL (0.0-0.1); Eosinophils Absolute Auto 0.2 10^3/uL (0.0-0.7); Eosinophils Percent Auto 2.5 % (0.9-7.0); Hematocrit 35.7 % (36.0-48.0); Hemoglobin 12.5 g/dL (12.0-16.0); Immature Granulocytes Abs Auto 0.02 10^3/uL (0.00-0.03); Immature Granulocytes Pct Auto 0.3 % (0.0-0.5); Lymphocytes Absolute Auto 2.4 10^3/uL (1.2-3.8); Lymphocytes Percent Auto 30.4 % (20.5-60.0); Mean Corpuscular Hemoglobin 30.6 pg (26.7-34.0); Mean Corpuscular Volume 87.3 fL (81.0-99.0); Mean Platelet Volume 9.3 fL (9.5-13.5); Monocytes Absolute Auto 0.7 10^3/uL (0.3-0.8); Monocytes Percent Auto 8.8 % (1.7-12.0); Neutrophils Absolute Auto 4.5 10^3/uL (1.4-6.5); Platelet Count 300 10^3/uL (150-450); Red Blood Count 4.09 10^6/uL (4.20-5.40); Red Cell Distribution Width 11.9 % (11.0-15.0)
--- NOTE | 2024-02-22 18:50 | CT_ITS ---
The [address] [address] Patient Name: NAT REYNAGA MRN: [facility]:[id number] date: 1945 Sex: F Assigned Patient Location: ER Current Patient Location: Accession/Order Number: [id number] Exam Date: 02/22/2024 19:40 Report Date: 02/22/2024 20:04 At the request of: HARSHA ACSAS Procedure: CT head/brain wo con EXAM: CT head/brain wo con; [id number] REASON FOR EXAM: head injury/ confusion COMPARISON: None. TECHNIQUE: Axial CT images of the head obtained without contrast. Multiplanar reformats generated at the scanner. Dose reduction technique used: Automated exposure control and/or adjustment of the mA and/or kV according to patient size and/or use of iterative reconstruction technique. FINDINGS: Parenchyma: -Mild generalized cerebral volume loss. -No midline shift or mass effect. Basilar cisterns are patent. -No acute intracranial hemorrhage. -No loss of cortical ventura-white differentiation to indicate acute cortical infarct. -Marked subcortical white matter hypoattenuation in the bilateral anterior frontal lobes with mild associated encephalomalacia. -There are 2 punctate peripheral calcifications in the right frontal lobe (for example series 6 image 18). Extra-axial spaces: No extra-axial fluid collection or hemorrhage. Ventricles: Normal in size and symmetric. Paranasal sinuses: Visualized paranasal sinuses are clear. Mastoid air cells: Visualized mastoids are clear. Orbits: No acute abnormality. Osseous: No acute findings. Hyperostosis from talus interna. Soft tissues: No acute abnormality. CT/CT head/brain wo con IMPRESSION: 1. No acute intracranial abnormality demonstrated. 2. Marked bilateral anterior frontal lobe white matter hypoattenuation. Differential includes sequela of prior trauma, radiation, and atypical remote infarct. Correlate with patient history and consider MRI of the brain with and without contrast if this finding is unexpected or noncongruent with the patient's history. Electronically authenticated by: ISELA DICKEY Date: 02/22/2024 20:04
[2024-02-22 19:04] LABS: Alanine Aminotransferase 21 U/L (14-59); Albumin Globulin Ratio 0.9; Albumin Level 3.3 g/dL (3.4-5.0); Alkaline Phosphatase 57 U/L (46-116); Anion Gap 12.4; Aspartate Amino Transferase 19 U/L (15-37); Bilirubin Total 0.3 mg/dL (0.2-1.0); Calcium 8.8 mg/dL (8.5-10.1); Carbon Dioxide 27.1 mmol/L (21.0-32.0); Chloride 89 mmol/L (98-107); Estimated GFR (African America >60 (>=60); Estimated GFR (Non-African Ame >60 (>=60); Globulin 3.6 g/dL; Glucose 95 mg/dL (74-106); Potassium 4.5 mmol/L (3.5-5.1); Total Protein 6.9 g/dL (6.4-8.2); Troponin I High Sensitivity 4.5 pg/mL (4.0-51.3)
[2024-02-22 19:08] LABS: Sodium 124 mmol/L (136-145)
[2024-02-22 19:26] LABS: INR 0.95; Partial Thromboplastin Time 31.2 sec (22.3-36.2); Prothrombin Time 10.1 sec (9.0-11.6)
[2024-02-22 20:05] LABS: Adenovirus NOT DETECTED (NOT DETECTE); Bordetella parapertussis NOT DETECTED (NOT DETECTE); Coronavirus 229E NOT DETECTED (NOT DETECTE); Coronavirus HKU1 NOT DETECTED (NOT DETECTE); Coronavirus NL63 NOT DETECTED (NOT DETECTE); Coronavirus OC43 NOT DETECTED (NOT DETECTE); Human Metapneumovirus NOT DETECTED (NOT DETECTE); Human Rhinovirus/Enterovirus NOT DETECTED (NOT DETECTE); Influenza A NOT DETECTED (NOT DETECTE); Influenza B NOT DETECTED (NOT DETECTE); Mycoplasma pneumoniae NOT DETECTED (NOT DETECTE); Parainfluenza Virus 1 NOT DETECTED (NOT DETECTE); Parainfluenza Virus 2 NOT DETECTED (NOT DETECTE); Parainfluenza Virus 3 NOT DETECTED (NOT DETECTE); Parainfluenza Virus 4 NOT DETECTED (NOT DETECTE); Respiratory Syncytial Virus NOT DETECTED (NOT DETECTE); SARS-CoV-2 NOT DETECTED (NOT DETECTE)
[2024-02-22] MEDS: CEFTRIAXONE 1,000 MG in 0.9 % SODIUM CHLORIDE 50 ML 100 MG IV (20:22)
[2024-02-22] MEDS: 0.9 % SODIUM CHLORIDE 1,000 ML 500 ML IV (20:22)
--- NOTE | 2024-02-22 21:15 | PC.NURSE ---
Patient's daughter states that she is not able to go home, that she needs to be able to stay the night with her mother because her mother needs literal 24 hour constant supervision . I told her that she would be able to accompany her mother upstairs for the admission process and to verify information, but that she would need to go home for the night after that, and she again states that there is no way our hospital nursing staff can provide enough supervision for her mother to keep her safe. I told her that I would ask the housekeeper supervisor to come speak to her. Wire Splicer Rosenda CANDELARIA is updated about the situation and is going to speak to the patient's daughter.
--- OUTSIDE RECORDS SUMMARY | 2024-02-22 22:04 | XMS_ITS | CCD ---
Author Organization [facility] Care Team Providers Care Ground Operations [employer] Member Name Role Phone Jamal Alvarez Unavailable Unavailable Unavailable Ash Vance DO Primary Care Provider Ash Vance DO Primary Care Provider DO Jamal Alvarez Primary Care Provider DO Hermes Kennedy Attending Provider [phone] DIAB ., BRUCE Admitting Unavailable DIAB ., [...] LEROY Primary Care Unavail able DR JAMAL ALVAREZ Consulting Unavailable DO Jamal Alvarez Primary Care Provider [phone] MD Valdez Castro Attending Provider DO Jamal Alvarez Attending Provider [phone] Jamal Alvarez DO Primary Care Provider DO Jamal Alvarez Primary Care Provider [phone] DO Jamal Alvarez Attending Provider CORNELIUS Pearce Attending Provider JAMAL ALVAREZ Attending Unavailable JAMAL ALVAREZ Referring Unavailable IRIVNG DUVALL Attending Unavailable EMMA MELISSA Referring Unavailable [...] Care Unavailable KAYCEE, DEE Referring Unavailable BUNTING, ASH RAY Primary Care Unavailable DO Jamal Alvarez Primary Care Provider DO Jamal Alvarez Attending Provider [phone] Allergies Allergy Classification Reported Allergen(s) Allergy Type Date of Onset Reaction(s) Facility (10 sources) Codeine; Translations: [codeine] Drug Allergy [address] [facility] (4 sources) Penicillins; Translations: [Penicillins] Allergy to drug (finding) 9 [facility] Repository (7 sources) Propoxyphene; Translations: [propoxyphene] Drug Allergy 3 Other: See Comments [facility] (3 sources) Sulfamethoxazole ; Translations: [sulfa] Drug Allergy [facility] [address] DO Work Phone: (10 sources) Latex; Translations: [LATEX] Propensity to adverse reactions 9 [facility] (1 source) Penicillins Propensity to adverse reactions 9 [facility] (10 sources) [place]; Translations: [STRAWBERRIES] Propensity to adverse reactions 9 [facility] (17 sources) Sulfonamides (Antibiotic); Translations: [SULFA (SULFONAMIDE ANTIBIOTICS)] Propensity to adverse reactions 9 [facility] (10 sources) Propoxyphene N-Acetaminophen; Translations: [PROPOXYPHENE N-ACETAMINOPHEN] Drug Allergy 0 [facility] (8 sources) Penicillins Propensity to adverse reactions 9 [facility] (7 sources) strawberry allergenic extract Drug Allergy [address] [facility] (1 source) Penicillins Drug allergy (disorder) [facility] Repository (1 source) Sulfonamides (Antibiotic) Drug allergy (disorder) [facility] Repository (10 sources) Midazolam Drug Allergy [address] [facility] (6 sources) opiates Propensity to adverse reactions [address] 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 CURRENT DRUG THERAPY] Onset: 3 Episodic Other [...] XR chest 2V*on 02-13-2024 XR chest 2V* [place] [address] XRay Report Signed Patient: Karuna Reynaga MR#: [id number] 289 : 1945 Acct:[id number] Age/Sex: 79 / F ADM Date: 02/13/24 [facility]: Type[facility] Attending Dr: Nallely SHIELDS Copies to: [...] Emma Muñoz M.D.02/13/2024 7:24 PM Dictation Location: [facility] Transcribed By: [facility] 02/13/241923 Dictated By: Emma Muñoz II, MD 02/13/241921 Signed By: 02/13/241923 Normal [facility] Juany 01-22-2024 LOPEZ Telephone (DEVON) KARUNA REYNAGA ([id number]) 1945 F Date Time Provider Department 01/22/24 [...] Encounter Status:Closed by JOHN VERAS on 01/23/24 [facility] CNOVon 12-28-2023 CNOV Office Visit (PULMMN) KARUNA REYNAGA ([id number]) 1945 F Date Time Provider Department 12/28/23 1:30 PM UBALDO HDZ PULMMN During your visit today, we recorded the following information about you: Temperature Pulse Respiration Blood pressure 97.6 degrees 67/minute 16/minute 137/65 Weight 79.4 kg Ubaldo Hdz MD 2024 1:33 PM [facility] [place] Karuna Reynaga is a 78 year old female here for evaluation by the [facility] Interstitial Lung Disease Team. 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 SOCIAL HISTORY Social History Tobacco Use Smoking [...] acute distr (more content not included)... Normal [facility] CT CHEST WO IVCONon 12-27-19 CT CHEST WO IVCON * * *Final Report* * * DATE OF EXAM: Dec 27 2023 1:09PM [facility] 0541 - CT CHEST WO IVCON / [...] calcified gallstone is noted in the gallbladder. Wire Wheeler (topogram) images: No additional findings. IMPRESSION: 1. [...] any questions regarding this interpretation, please call [phone]. If you are unable to reach us at the number above, please feel free to contact [facility] eRadiology at [phone]. [id number] CN Normal [facility] LUNG DIFFUSION CAPACITY (SHANKAR O)on 12-25-2023 [facility] SPIROMETRY WITH DILATOR IF O BSTRUCTEDon 12-25-2023 DLCO (ml/min/mmHg) 9.76 ml/min/mmHg [facility] DLCO/VA (ml/min/mmHg/L) 4.48 ml/min/mmHg/L [facility] FEK06-58% PRE (L/S) 1.32 L/S [facility] FEV1 PRE (L) 1.05 L [facility] FEV1/FVC PRE (%) 89 % [facility] FVC PRE (L) 1.19 L [facility] PEF PRE (L/S) 1.90 L/S [facility] VA (L) 2.18 L [facility] CNPNon 11-28-2023 [facility]OPE[facility] Telephone (DEVON) KARUNA REYNAGA ([id number]) 1945 F Date Time Provider Department 11/28/23 [...] (HCC) [J84.9] Order(s):SPIROMETRY WITH DILATOR IF OBSTRUCTED [3190637] Order #: [id number]: 1 FUTURE LUNG DIFFUSION CAPACITY (DLCO) [4866203] Order #: [id number]: [address] CHEST WO IVCON [[id number]] Order #: [id number] FUTURE Prescriptions as of 12/11/2023 - levothyroxine [...] Status:Closed by RED ANDERSON on 11/29/23 Normal [facility] XR chest 2V*on 11-21-2023 XR chest 2V* [facility] [place] [address] [place] [address] XRay Report Signed Patient: Karuna Reynaga MR#: [id number] 289 : 1945 Acct:[id number] Age/Sex: 78 / F ADM Date: 11/21/23 Loc: XD Room: Type: [facility] Attending Dr: Jamal Alvarez DO Copies [...] Jorge Jr., D.OMonica11/21/2023 7:04 PM Dictation Location: [place] [address] Transcribed By: BERTA 11/21/231903 Dictated By: Frankie Jorge Jr, 11/21/231903 Signed By: 11/21/231903 Normal [facility] DEXA BONE DENSITYon 10-26-20 23 [...] T4 [Mass/Vol] 0.74 ng/dL Normal 0.61-1.12 [facility] Comment on above: Performed By: #### T 3F, T4F, TSH3 #### [address] Thyroid Stimulating Hormoneo n 10-16-2023 TSH Qn 0.51 m[IU]/L Normal 0.45-5.33 [facility] Comment on above: Result Comment: PERF ORMED BY: [place] [address] PATHOLOGIST DELIVERY ROOM SUPERVISOR EDMOND NORTH M.D. Performed By: #### T 3F, T4F, TSH3 #### [address] Thyrotropin [Units/volume] i n Serum or PlasmaOrdered By: Valdez Castro on 10-16-2023 TSH Qn 0.51 m[IU]/L 0.45-5.33 [facility] Thyroxine (T4) free [Mass/vo lume] in Serum or PlasmaOrdered By: Valdez Castro on 10-16-2023 Free T4 [Mass/Vol] 0.74 ng/dL 0.61-1.12 [facility] Triiodothyronine (T3) Freeon 10-16-2023 Triiodothyronine (T3) Free 3.08 pg/mL Normal 2.50-3.90 [facility] Comment on above: Result Comment: PERF ORMED BY: [place] [address] PATHOLOGIST DELIVERY ROOM SUPERVISOR EDMOND NORTH M.D. Performed By: #### T 3F, T4F, TSH3 #### [address] Triiodothyronine (T3) Free [ Mass/volume] in Serum or PlasmaOrdered By: Valdez Castro on 10-16-2023 Free T3 [Mass/Vol] 3.08 pg/mL 2.50-3.90 [facility] Free T4 (Free Thyroxine)on 0 07-16-2023 Free T4 [Mass/Vol] 0.75 ng/dL Normal 0.61-1.12 [facility] Comment on above: Performed By: #### T 3F, T4F, TSH3 #### [place] [id number] [place] Thyroid Stimulating Hormoneo n 07-16-2023 TSH Qn 0.07 m[IU]/L Low 0.45-5.33 [facility] Comment on above: Result Comment: PERF ORMED BY: [place] [id number] PATHOLOGIST DELIVERY ROOM SUPERVISOR EDMOND NORTH M.D. Performed By: #### T 3F, T4F, TSH3 #### [address] [address] [facility] Triiodothyronine (T3) Freeon 07-16-2023 Triiodothyronine (T3) Free 2.81 pg/mL Normal 2.50-3.90 [facility] Comment on above: Result Comment: PERF ORMED BY: [facility] [address] [place] [address] PATHOLOGIST DELIVERY ROOM SUPERVISOR EDMOND NORTH M.D. Performed By: #### T 3F, T4F, TSH3 #### [address] Basophils Auto (Bld) [#/Vol] Ordered By: Hermes Kennedy on 12-26-2022 Basophils (Bld) [#/Vol] 0.0 10*3/uL 0.0-0.2 [facility] Basophils/100 WBC Auto (Bld) Ordered By: Hermes Kennedy on 12-26-2022 Basophils/100 WBC (Bld) 0.5 % . [facility] Creatinine and Glomerular fi ltration rate.predicted panel (S/P/Bld)Ordered By: Hermes Kennedy on 12-26-2022 Creatinine [Mass/Vol] 0.61 mg/dL 0.44-1.03 [facility] Eosinophils Auto (Bld) [#/Vo l]Ordered By: Hermes Kennedy on 12-26-2022 Eosinophils (Bld) [#/Vol] 0.1 10*3/uL 0.0-0.45 [facility] Eosinophils/100 WBC Auto (Bl d)Ordered By: Hermes Kennedy on 12-26-2022 Eosinophils/100 WBC (Bld) 2.3 % . [facility] Erythrocyte distribution wid th Auto (RBC) [Ratio]Ordered By: Hermes Kennedy on 12-26-2022 Erythrocyte distribution width (RBC) [Ratio] 13.2 % 11.9-15.3 [facility] Estimated glomerular filtrat ion rate (GFR) non- AmericanOrdered By: Hermes Kennedy on 12-26-2022 GFR/1.73 sq M.predicted among non-blacks MDRD (S/P/Bld) [Vol rate/Area] > 60 mL/Min [facility] Hematocrit Auto (Bld) [Volum e fraction]Ordered By: Hermes Kennedy on 12-26-2022 Hematocrit (Bld) [Volume fraction] 38.3 % 34.0-46.4 [facility] Hemoglobin [Mass/volume] in BloodOrdered By: Hermes Kennedy on 12-26-2022 Hemoglobin (Bld) [Mass/Vol] 12.4 g/dL 11.8-15.4 [facility] Leukocytes [#/volume] correc rob for nucleated erythrocytes in Blood by Automated counOrdered By: Hermes Kennedy on 12-26-2022 WBC corrected for nucl RBC Auto (Bld) [#/Vol] 6.4 10*3/uL 3.8-11.6 [facility] Lymphocytes Auto (Bld) [#/Vo l]Ordered By: Hermes Kennedy on 12-26-2022 Lymphocytes (Bld) [#/Vol] 2.2 10*3/uL 1.00-4.8 [facility] Lymphocytes/100 WBC Auto (Bl d)Ordered By: Hermes Kennedy on 12-26-2022 Lymphocytes/100 WBC (Bld) 34.9 % . [facility] MCH Auto (RBC) [Entitic mass ]Ordered By: Hermes Kennedy on 12-26-2022 MCH (RBC) [Entitic mass] 29.5 pg 24.7-34.3 [facility] MCHC Auto (RBC) [Mass/Vol]Or dered By: Hermes Kennedy on 12-26-2022 MCHC (RBC) [Mass/Vol] 32.3 g/dL 32.0-35.0 [facility]ir [facility] MCV Auto (RBC) [Entitic vol] Ordered By: Hermes Kennedy on 12-26-2022 MCV (RBC) [Entitic vol] 91.2 fL 80-100 F [facility] Monocytes Auto (Bld) [#/Vol] Ordered By: Hermes Kennedy on 12-26-2022 Monocytes (Bld) [#/Vol] 0.5 10*3/uL 0.0-0.8 [facility] Monocytes/100 WBC Auto (Bld) Ordered By: Hermes Kennedy on 12-26-2022 Monocytes/100 WBC (Bld) 8.3 % . [facility] Neutrophils Auto (Bld) [#/Vo l]Ordered By: Hermes Kennedy on 12-26-2022 Neutrophils (Bld) [#/Vol] 3.5 10*3/uL 1.8-7.7 [facility] Neutrophils/100 WBC Auto (Bl d)Ordered By: Hermes Kennedy on 12-26-2022 Neutrophils/100 WBC (Bld) 54.0 % . [facility] No Panel InformationOrdered By: Hermes Kennedy on 12-26-2022 Estimated GFR () > 60 mL/Min [facility] Comment on above: GFR estimated refere nce range: According to KDOQI guidelines, <60 ml/min/1.73m2 is sufficient to diagnose a patient with chronic kidney disease. Pharmacy Creatinine Clearance (Chem N/A [facility] Nucleated erythrocytes [Pres ence] in Blood by Automated countOrdered By: Hermes Kennedy on 12-26-2022 Nucleated RBC Auto Ql (Bld) 0.2 /100{WBC} 0-0.5 [facility] Platelet mean volume Auto (B ld) [Entitic vol]Ordered By: Hermes Kennedy on 12-26-2022 Platelet mean volume (Bld) [Entitic vol] 8.5 fL 6.3-10.7 [facility] Platelets Auto (Bld) [#/Vol] Ordered By: Hermes Kennedy on 12-26-2022 Platelets (Bld) [#/Vol] 218 10*3/uL 150-450 [facility] RBC Auto (Bld) [#/Vol]Ordere d By: Hermes Kennedy on 12-26-2022 RBC (Bld) [#/Vol] 4.20 10*6/uL 3.60-5.00 [facility] Serum or plasma anion gap de terminationOrdered By: Hermes Kennedy on 12-26-2022 Anion gap [Moles/Vol] 10.0 mmol/L 6.0-15.0 [facility] Serum or plasma calcium marce urement (mass/volume)Ordered By: Hermes Kennedy on 12-26-2022 Calcium [Mass/Vol] 9.1 mg/dL 8.2-10.2 [facility] Serum or plasma chloride william surement (moles/volume)Ordered By: Hermes Kennedy on 02-21-2023 Chloride [Moles/Vol] 104 mmol/L 95-114 [facility] Serum or plasma glucose marce urement (mass/volume)Ordered By: Hermes Kennedy on 12-26-2022 Glucose [Mass/Vol] 80 mg/dL 70-100 [facility] Comment on above: ADA recommended refe rence rangeRandom Glucose Reference Range is dependent on time and content of last meal. Glucose of more than 200 mg/dL in a nonstressed, ambulatory subject supports the diagnosis of Diabetes Mellitus. Serum or plasma potassium me asurement (moles/volume)Ordered By: Hermes Kennedy on 12-26-2022 Potassium [Moles/Vol] 4.3 mmol/L 3.5-5.1 [facility] Serum or plasma sodium measu rement (moles/volume)Ordered By: Hermes Kennedy on 12-26-2022 Sodium [Moles/Vol] 139 mmol/L 136-146 [facility] Serum or plasma total carbon dioxide measurement (moles/volume)Ordered By: Hermes Kennedy on 12-26-2022 CO2 [Moles/Vol] 29.3 mmol/L 22.0-30.0 [facility] Serum or plasma urea nitroge n measurement (mass/volume)Ordered By: Hermes Kennedy on 12-26-2022 Urea nitrogen [Mass/Vol] 21 mg/dL 9-23 [facility] WBC Auto (Bld) [#/Vol]Ordere d By: Hermes Kennedy on 12-26-2022 WBC (Bld) [#/Vol] 6.4 10*3/uL 3.8-11.6 [facility] CULTURE URINEon 04-05-2022 CULTURE URINE Culture Observations: NO GROWTH. Normal [facility] Comment on above: Performed By: #### U RCX #### [facility] [address] [place] [address] [address] Mojgan Daily UA RANDOM W/MICROSCOPICon BACTERIA NONE SEEN Normal NONE SEEN [facility] Comment on above: Performed By: #### U AMIC #### [facility] [address] [place] [id number] Mojgan Daily Bilirubin Ql (U) Negative Normal NEGATIVE [facility] Comment on above: Performed By: #### U AMIC #### [facility] [address] [place] [address] [address] Mojgan Daily CA OX CRYSTALS FEW Normal [facility] Comment on above: Performed By: #### U AMIC #### [facility] [address] [place] [address] [address] Mojgan Daily CAST NONE SEEN Normal NONE SEEN [facility] Comment on above: Performed By: #### U AMIC #### [facility] [address] [place] [address] [address] Mojgan Daily Clarity (U) CLEAR Normal CLEAR [facility] Comment on above: Performed By: #### U AMIC #### [facility] [address] [place] [address] [address] Mojgan Daily Color (U) LT. YELLOW Normal YELLOW [facility] Comment on above: Performed By: #### U AMIC #### [facility] [address] [place] [address] [address] Mojgan Daily Crystals LM Nom (Urine sed) SEEN Abnormal NONE SEEN [facility] Comment on above: Performed By: #### U AMIC #### [facility] [address] [place] [address] [address] Mojgan Daily Epithelial cells LM Ql (Urine sed) NONE SEEN Normal NONE SEEN /RARE [facility] Comment on above: Performed By: #### U AMIC #### [facility] [address] [place] [address] [address] Mojgan Daily Glucose Ql (U) Negative Normal NEGATIVE [facility] Comment on above: Performed By: #### U AMIC #### [facility] [address] [place] [address] [address] Mojgan Daily Hemoglobin Ql (U) Negative Normal NEGATIVE [facility] Comment on above: Performed By: #### U AMIC #### [facility] [address] [place] [address] [address] Mojgan Daily Ketones Ql (U) Negative Normal NEGATIVE [facility] Comment on above: Performed By: #### U AMIC #### [facility] [address] [place] [address] [address] Mojgan Daily LEUKOCYTES SMALL Abnormal NEGATIVE [facility] Comment on above: Performed By: #### U AMIC #### [facility] [address] [place] [address] [address] Mojgan Daily MUCOUS NONE SEEN Normal NONE SEEN [facility] Comment on above: Performed By: #### U AMIC #### [facility] [address] [place] [address] [address] Mojgan Daily Nitrite Ql (U) Negative Normal NEGATIVE [facility] Comment on above: Performed By: #### U AMIC #### [facility] [address] [place] [address] [address] Mojgan Daily pH (U) 5.0 [pH] Normal 5-9 [facility] Comment on above: Performed By: #### U AMIC #### [facility] [address] [address] [address] Mojgan Daily RBC NONE SEEN Abnormal 0-2 [facility] Comment on above: Performed By: #### U AMIC #### [facility] [address] [place] [address] Dr. Mojgan Daily SPEC GRAVITY 1.025 Normal 1.005-<=1.025 [facility] Comment on above: Performed By: #### U AMIC #### [facility] [address] [place] [address] Dr. Mojgan Daily UA PROTEIN Negative Normal NEGATIVE/ TRACE [facility] Comment on above: Performed By: #### U AMIC #### [facility] [address] [place] [address] [address] Mojgan Daily URIC ACID CRYSTALS RARE Normal [facility] Comment on above: Performed By: #### U AMIC #### [facility] [address] [place] [address] Dr. Mojgan Daily Urobilinogen Qn (U) 0.2 {Amanuel'U}/dL Normal 0.2 - 1. 0 [facility] Comment on above: Performed By: #### U AMIC #### [facility] [address] [place], [place] [id number] Dr. Mojgan Daily WBC 2-5 Abnormal NONE SEEN [facility] Comment on above: Performed By: #### U [facility] #### [facility] [address] [place], [place] [id number] Dr. Mojgan Daily MG MAMM SCREEN 3D RUPAL CADon 03-27-2022 MG MAMM SCREEN 3D RUPAL CAD Patient: KARUNA REYNAGA Exam Date: 03/27/2022 : 1945 Gender:F Ordering : DR JAMAL ALVAREZ Admission #: [id number] Family : Order #: [id number] CLICK HERE TO VIEW EXAM RADIOLOGY REPORT [...] Family Cancers None LOCATION: [facility] BREAST COMPOSITION: Almost entirely fatty. FINDINGS: DIAGNOSTIC [...] 03/27/2022 at 14:10 Normal [facility] Comprehensive metabolic 2000 panelon 02-03-2022 Albumin [Mass/Vol] 4.0 g/dL 3.9 - 4.9 g/dL [facility] ALP [Catalytic activity/Vol] 55 U/L 34 - 123 U/L [facility] ALT [Catalytic activity/Vol] 16 U/L 7 - 38 U/L [facility] Anion gap [Moles/Vol] 10 mmol/L 9 - 18 mmol/L [facility] AST [Catalytic activity/Vol] 16 U/L 13 - 35 U/L [facility] Bilirubin [Mass/Vol] 0.3 mg/dL 0.2 - 1 .3 mg/dL [facility] Calcium [Mass/Vol] 9.4 mg/dL 8.5 - 10. 2 mg/dL [facility] Chloride [Moles/Vol] 107 mmol/L High 97 - 10 5 mmol/L [facility] CO2 [Moles/Vol] 28 mmol/L 22 - 30 mmol/L [facility] Creatinine [Mass/Vol] 0.81 mg/dL 0.58 - 0.96 mg/dL [facility] Estimated Glomerular Filtration Rate 75 mL/min/1.73m >=60 mL/min/1.73m [facility] Glucose [Mass/Vol] 102 mg/dL High 74 - 99 mg/dL [facility] Potassium [Moles/Vol] 4.5 mmol/L 3.7 - 5.1 mmol/L [facility] Protein [Mass/Vol] 6.7 g/dL 6.3 - 8.0 g/dL [facility] Sodium [Moles/Vol] 145 mmol/L High 136 - 144 mmol/L [facility] Urea nitrogen [Mass/Vol] 22 mg/dL High 7 - 21 mg/d L [facility] Office Visit (Cardiology)on 10-21-2021 Follow-up visit Diagnoses/Problems Assessed Pre-operative cardiovascular examination (V72.81) (Z01.810) Sinus bradycardia (427.89) (R00.1) Class 1 obesity with body mass index (BMI) of 30.0 to 30.9 in adult (278.00,V85.30) (E66.9,Z68.30) Former smoker (V15.82) (Z87.891) Quit 1980 Orders Class 1 obesity with body mass index (BMI) of 30.0 to 30.9 in adult Healthy Weight Tips; Status:Complete - Retrospective Authorization; Done: [id number] Pre-operative cardiovascular examination IO EKG Electrocardiogram- 12 Lead; Status:Complete; Done: [id number] SocHx: Former smoker Tobacco Use Screening; Status:Complete; Done: [id number] Patient Instructions Follow up as needed only [...] negative for complaint. Vitals Vital Signs Recorded: [id number] 11:08AMRecorded: [id number] 11:07AM Deplrhdi595, LUE, Grppnem436, LUE, Sitting Cslmmdvrv49, LUE, Vhbstpm57, LUE, Sitting Heart Rate58, Apical Height4 ft 10 in Mrjbij321 lb BMI (more content not included)... Normal incuBET Tobacco Screening.on 021 Fall risk assessment a) No falls within the last year [facility] Adly y 250 DO Work Phone: Tobacco use status CP b) No M [facility] Adly y 250 DO Work Phone: XR Chest [...] by Kole Nino on 10/13/2021 1530 Normal [facility] Specialist Vital Signs Date Time Vital Sign Value Performing Clinician Facility 02-21-2024 10:45-0400 Body height 142.24 cm DO Jamal Alvarez Work Phone: [facility] 02-21-2024 10:45-0400 Body mass index (BMI) [Ratio] 33.8 kg/m2 DO Jamal Antonio Work Phone: [facility] 02-21-2024 10:45-0400 Body weight 68.49 kg DO Jamal Antonio Work Phone: [facility] 02-21-2024 10:45-0400 Diastolic blood pressure 79 mm[Hg] DO Jamal Antonio Work Phone: [facility] 02-21-2024 10:45-0400 Heart rate 65 /min DO Jamal Antonio Work Phone: [facility] 02-21-2024 10:45-0400 Systolic blood pressure 131 mm[Hg] DO Jamal Antonio Work Phone: [facility] 02-13-2024 18:46-0400 Body height 142.24 cm DO Jamal Antonio Work Phone: [facility] 02-13-2024 18:46-0400 Body mass index (BMI) [Ratio] 33.9 kg/m2 DO Jamal Antonio Work Phone: [facility] 02-13-2024 18:46-0400 Body temperature 97.1 [degF] DO Jamal Antonio Work Phone: [facility] 02-13-2024 18:46-0400 Body weight 68.6 kg DO Jamal Antonio Work Phone: [facility] 02-13-2024 18:46-0400 Diastolic blood pressure 80 mm[Hg] DO Jamal Alvarez Work Phone: [facility] 02-13-2024 18:46-0400 Heart rate 74 /min DO Jamal Alvarez Work Phone: [facility] 02-13-2024 18:46-0400 Respiratory rate 18 /min DO Jamal Alvarez Work Phone: [facility] 02-13-2024 18:46-0400 SaO2% (BldA) [Mass fraction] 94 % DO Jamal Alvarez Work Phone: [facility] 02-13-2024 18:46-0400 Systolic blood pressure 110 mm[Hg] DO Jamal Alvarez Work Phone: [facility] 12-28-2023 13:29-0500 Body temperature 97.59 [degF] Ubaldo Hdz MD Work Phone: [facility] 12-28-2023 13:29-0500 Body weight 79.38 kg Ubaldo Hdz MD Work Phone: [facility] 12-28-2023 13:29-0500 Diastolic blood pressure 65 mm[Hg] Ubaldo Hdz MD Work Phone: [facility] 12-28-2023 13:29-0500 Heart rate 67 /min Ubaldo Hdz MD Work Phone: [facility] 12-28-2023 13:29-0500 Respiratory rate 16 /min Ubaldo Hdz MD Work Phone: [facility] 12-28-2023 13:29-0500 SaO2% (BldA) [Mass fraction] 97 % Ubaldo Hdz MD Work Phone: [facility] 12-28-2023 13:29-0500 Systolic blood pressure 137 mm[Hg] Ubaldo Hdz MD Work Phone: [facility] 10-21-2021 11:08-0500 Diastolic blood pressure 70 mm[Hg] Jamal Alvarez Work Phone: [facility] 250 DO Work Phone: 10-21-2021 11:08-0500 Systolic blood pressure 132 mm[Hg] Jamal Alvarez Work Phone: [facility] 250 DO Work Phone: 10-21-2021 11:07-0500 Body height 147.32 cm Jamal Alvarez Work Phone: [facility] 250 DO Work Phone: 10-21-2021 11:07-0500 Body mass index (BMI) [Ratio] 30.31 kg/m2 Jamal Alvarez Work Phone: [facility] 250 DO Work Phone: 10-21-2021 11:07-0500 Body surface area Derived from formula 1.59 m2 Jamal Alvarez Work Phone: [facility] 250 DO Work Phone: 10-21-2021 11:07-0500 Body weight 65.77 kg Jamal Alvarez Work Phone: [facility] 250 DO Work Phone: 10-21-2021 11:07-0500 Diastolic blood pressure 70 mm[Hg] Jamal Alvarez Work Phone: [facility] 250 DO Work Phone: 10-21-2021 11:07-0500 Heart rate 58 /min Jamal Alvarez Work Phone: [facility] 250 DO Work Phone: 10-21-2021 11:07-0500 Systolic blood pressure 132 mm[Hg] Jamal Alvarez Work Phone: [facility] [facility] DO Work Phone: Encounters Encounter Date Encounter Type Care Provider Facility Start: 02-21-2024 End: 02-21-2024 ambulatory DO Jamal Alvarez Work Phone: [facility] Work Phone: Start: 02-21-2024 End: 02-21-2024 Patient encounter procedure DO Jamal Alvarez Work Phone: [facility] Gastroenterology Work Phone: Start: 02-19-2024 Registered Recurring DO Shelby Alvarez Work Phone: [facility] Start: 02-15-2024 Orders Only Ubaldo Peres rn, MD Work Phone: Pulmonary Medicine Comment on above: Bronchiectasis witho ut complication (HCC) (Primary Dx) Start: 02-13-2024 End: 02-13-2024 ambulatory Nallely Pearce Facility:[facility] Start: 02-13-2024 End: 02-13-2024 ambulatory DO Jamal Alvarez Work Phone: [facility] Work Phone: Start: 02-13-2024 End: 02-13-2024 Patient encounter procedure DO Jamal Alvarez Work Phone: [facility] [place] Work Phone: Start: 02-13-2024 End: 02-13-2024 ambulatory IRVING DUVALL Not Available Start: 02-12-2024 Registered Recurring DO Shelby Alvarez Work Phone: [facility] Start: 01-23-2024 End: 01-23-2024 ambulatory Jamal Alvarez Facility:[facility] Start: 01-23-2024 End: 01-23-2024 ambulatory DO Jamal Alvarez Work Phone: [facility] Work Phone: Start: 01-23-2024 End: 01-23-2024 Patient encounter procedure DO Jamal Alvarez Work Phone: [facility] Work Phone: Start: 01-22-2024 Telephone encounter Ubaldo dawn MD Work Phone: Pulmonary Medicine Comment on above: Received Outside Med ical Records Start: 01-14-2024 Registered Recurring DO Shelby Alvarez Work Phone: [facility] Start: 12-28-2023 End: 12-28-2023 ambulatory UBALDO HDZ Facility:[facility] Start: 12-28-2023 End: 12-28-2023 Patient encounter procedure Ubaldo Hdz MD Work Phone: Pulmonary Medicine Comment on above: Bronchiectasis witho ut complication (HCC) (Primary Dx); Aspiration pneumonitis (HCC); Traumatic brain injury with loss of consciousness, sequela (HCC) Start: 12-27-2023 End: 12-27-2023 ambulatory DEEURBAN ROPERIE Facility:[facility] Start: 12-25-2023 End: 12-25-2023 [facility] Comment on above: Spirometry Start: 12-25-2023 End: 12-25-2023 Patient encounter procedure Pulm Lab Nikhil Work Phone: [facility] Start: 12-05-2023 End: 12-05-2023 ambulatory JAMAL ALVAREZ Not Available Start: 11-21-2023 End: 11-21-2023 ambulatory Jamal Alvarez Facility:[facility] Start: 11-21-2023 End: 11-21-2023 ambulatory DO Jamal Alvarez Work Phone: [facility] Work Phone: Start: 11-21-2023 End: 11-21-2023 Patient encounter procedure DO Jamal Alvarez Work Phone: [facility] Work Phone: Start: 10-26-2023 End: 10-27-2023 ambulatory JAMAL ALVAREZ Not Available Start: 10-16-2023 End: 10-17-2023 ambulatory JESUS ROBERSON Not Available Start: 10-16-2023 End: 10-16-2023 ambulatory Jamal Alvarez Facility:[facility] Start: 10-16-2023 End: 10-16-2023 ambulatory DO Jamal Alvarez Work Phone: [facility] Work Phone: Start: 10-16-2023 End: 10-16-2023 Patient encounter procedure DO Jamal Alvarez Work Phone: [facility] [place] Work Phone: Start: 07-16-2023 End: 07-16-2023 ambulatory Valdez Castro Facility:[facility] Start: 02-10-2023 End: 02-10-2023 ambulatory BRUCE DIAB . Facility:[facility] Start: 12-26-2022 End: 12-26-2022 ambulatory DO Jamal Alvarez Work Phone: [facility] Work Phone: Start: 12-26-2022 End: 12-26-2022 Patient encounter procedure DO Jamal Alvarez Work Phone: [facility] Work Phone: Start: 07-26-2022 Orders Only [...] patient 60 min Jamal Alvarez Work Phone: [facility] 250 DO Work Phone: Start: 10-21-2021 Office outpatient ne w 45 minutes [facility]al [facility] Work Phone: Patient encounter status Jamal Alvarez Work Phone: [facility] 250 DO Work Phone: Procedures Date Procedure [...] Start: 07-28-2025 Diabetes Screening Diabetes Screenin g [facility] Start: 02-03-2025 DIABETES SCREEN DIABETES SCREEN [facility] Start: 11-05-2023 Advance Directive Discussion Advance Directive Discussion [facility] Start: 11-05-2023 Behavioral Health Screening Behavioral Health Screening [facility] Start: 11-05-2023 Depression Assessment Depression Ass essment [facility] Start: 07-06-2023 Covid-19 Vaccine () Covid-19 Vaccine () [facility] Start: 07-26-2022 End: 09-25-2022 CBC W Auto Differential panel - Blood CBC + DIFF Lab Routine Well controlled type 2 diabetes mellitus with neurological manifestations (HCC) Unspecified hypothyroidism Expected: 07/26/2022, Expires: 09/25/2022 [facility] Work Phone: Comment on above: Expected: 07/26/2022 , Expires: 09/25/2022 Start: 07-26-2022 End: 09-25-2022 Comprehensive metabolic 2000 panel - Serum or Plasma COMP METABOLIC PANEL Lab Routine Well controlled type 2 diabetes mellitus with neurological manifestations (HCC) Unspecified hypothyroidism Expected: 07/26/2022, Expires: 09/25/2022 [facility] Work Phone: Comment on above: Expected: 07/26/2022 , Expires: 09/25/2022 Start: 07-26-2022 End: 09-25-2022 Hepatic function 2000 panel - Serum or Plasma HEPATIC FUNCTION PNL Lab Routine Dermatophytosis of nail Expected: 07/26/2022, Expires: 09/25/2022 [facility] Work Phone: Comment on above: Expected: 07/26/2022 , Expires: 09/25/2022 Start: 07-26-2022 End: 09-25-2022 Lipid 1996 panel - Serum or Plasma LIPID PANEL BASIC Lab Routine Well controlled type 2 diabetes mellitus with neurological manifestations (HCC) Unspecified hypothyroidism Expected: 07/26/2022, Expires: 09/25/2022 [facility] Work Phone: Comment on above: Expected: 07/26/2022 , Expires: 09/25/2022 Start: 07-26-2022 End: 09-25-2022 Thyrotropin [Units/volume] in Serum or Plasma TSH BLD Lab Routine Well controlled type 2 diabetes mellitus with neurological manifestations (HCC) Unspecified hypothyroidism Expected: 07/26/2022, Expires: 09/25/2022 [facility] Work Phone: Comment on above: Expected: 07/26/2022 , Expires: 09/25/2022 Start: 07-06-2022 Influenza vaccination INFLUENZA (#1) [facility] Start: 02-03-2022 End: 04-05-2022 ALBUMIN/CREAT RATIO RND UR [facility] Work Phone: Comment on above: Expected: 02/03/2022 , Expires: 04/05/2022 Start: 02-03-2022 End: 04-05-2022 LIPID PANEL BASIC [facility] Work Phone: Comment on above: Expected: 02/03/2022 , Expires: 04/05/2022 Start: 02-03-2022 End: 04-05-2022 Thyrotropin [Units/volume] in Serum or Plasma [facility] Work Phone: Comment on above: Expected: 02/03/2022 , Expires: 04/05/2022 Start: 02-03-2022 End: 04-05-2022 Urinalysis complete panel - Urine [facility] Work Phone: Comment on above: Expected: 02/03/2022 , Expires: 04/05/2022 Start: 11-05-2021 ADVANCE DIRECTIVE DISCUSSION ADVANCE DIRECTIVE DISCUSSION [facility] Start: 11-05-2021 COVID-19 VACCINE (4 - Booster for Moderna series) COVID-19 VACCINE (4 - Booster for Moderna series) [facility] Start: 08-04-2021 Pneumococcal Vaccine : 65+ (2 of 2 - PCV) Pneumococcal Vaccine: 65+ (2 of 2 - PCV) [facility] Start: 2011 BONE DENSITY BONE DENSITY [facility] Start: 2011 PNEUMOCOCCAL: 65+ (1 - PCV) PNEUMOCOCCAL: 65+ (1 - PCV) [facility] Start: 2011 PNEUMOVAX AGE 65 AND OVER WITH 5YR LOOKBACK (#1) PNEUMOVAX AGE 65 AND OVER WITH 5YR LOOKBACK (#1) [facility] Start: 2006 RSV Vaccine (1 - 1-d ose 60+ series) RSV Vaccine (1 - 1-dose 60+ series) [facility] Start: 1996 SHINGRIX VACCINE (1 of 2) SHINGRIX VACCINE (1 of 2) [facility] Start: 1965 Urine microalbumin profile [facility] Start: 1964 HEPATITIS C SCREENING HEPATITIS C [facility] Start: 1964 Hepatitis C screening Hepatitis C Al bud [facility] Start: 1958 Adult depression screening assessment DEPRESSION SCREENING [facility] End: 01-26-2025 LUNG DIFFUSION CAPACITY (DLCO) LUNG DIFFUSION CAPACITY (DLCO) PFT Routine Bronchiectasis without complication (HCC) 1 Occurrences starting 12/28/2023 until 01/26/2025 [facility] Work Phone: Comment on above: 1 Occurrences starti ng 12/28/2023 until 01/26/2025 End: 01-26-2025 SPIROMETRY BASELINE ONLY SPIROMETRY BASELINE ONLY PFT Routine Bronchiectasis without complication (HCC) 1 Occurrences starting 12/28/2023 until 01/26/2025 [facility] Work Phone: Comment on above: 1 Occurrences starti ng 12/28/2023 until 01/26/2025 URINE MICROALBUMIN B/O URINE ABAD ROALBUMIN B/O Lab Routine Hypothyroidism, adult 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) Mixed hyperlipidemia Ordered: 02/03/2022 [facility] Work Phone: Comment on above: Ordered: 02/03/2022 XR Chest 2 Views [facility] Immunizations Immunization Date Immunization Notes Care Provider Darwin tyler 08-23-2023 influenza (aIIV4) vaccine, age 65+ yr, quadrivalent, PF (FLUAD QUAD) Ubaldo Hdz MD Work Phone: [facility] 11-10-2022 COVID-19 mRNA Bivale nt Booster (Moderna) DO Jamal Alvarez Work Phone: [facility] 08-17-2022 influenza, high dose seasonal, preservative-free Ubaldo Hdz MD Work Phone: [facility] 05-30-2022 zoster vaccine recombinant Ubaldo Hdz MD Work Phone: [facility] 02-28-2022 zoster vaccine recombinant Ubaldo Hdz MD Work Phone: [facility] 08-16-2021 influenza, high dose seasonal, preservative-free Jamal Alvarez Work Phone: [facility] 07-06-2021 Moderna COVID-19 Vac cine 100 MCG/0.5ML Intramuscular Suspension Jamal Alvarez Work Phone: [facility] 02-03-2021 Moderna COVID-19 Vac cine 100 MCG/0.5ML Intramuscular Suspension Jamal Alvarez Work Phone: [facility] 01-06-2021 Moderna COVID-19 Vac cine 100 MCG/0.5ML Intramuscular Suspension Jamal Alvarez Work Phone: [facility] 08-04-2020 pneumococcal polysaccharide vaccine, 23 valent Jamal Alvarez Work Phone: [facility] 07-15-2020 AS03 adjuvant Ubaldo Hdz MD Work Phone: [facility] 07-15-2020 Seasonal trivalent influenza vaccine, adjuvanted, preservative free Jamal Alvarez Work Phone: [facility] 09-10-2019 AS03 adjuvant Ubaldo Hdz MD Work Phone: [facility] 09-10-2019 Seasonal trivalent influenza vaccine, adjuvanted, preservative free Jamal Alvarez Work Phone: [facility] 07-25-2018 AS03 adjuvant Ubaldo Hdz MD Work Phone: [facility] 07-25-2018 Seasonal trivalent influenza vaccine, adjuvanted, preservative free Jamal Alvarez Work Phone: [facility] 10-22-2017 influenza, injectabl e, quadrivalent, preservative free Jamal Alvarez Work Phone: [facility] 08-17-2016 influenza, high dose seasonal, preservative-free Jamal Alvarez Work Phone: [facility] Payers Date Payer Category Payer Medicare AETNA MEDICARE A ETNA MEDICARE PPO [id number] 2021-Present [phone] [address] [place] [address] PPO [id number] 2021 Medicare [id number] 1959 Medicare [id number] 1959 Private Health Insurance [id number] 1945 Unknown [id number] 93 1946 Unknown [id number] 93 1946 Unknown [id number] 93 1946 Unknown [id number] 259 1946 Unknown [id number] 259 1946 Unknown [id number] 259 1946 Unknown [id number] 259 1946 Unknown [id number] 259 Medicaid [id number] Medicare [id number] Medicare Medicare [id number] Private Health Insurance [facility] [id number] Private Health Insurance Aetna MCR PFFS M [id number] Self-pay Self Pay [id number] Unknown [id number] Unknown [id number] Unknown AETNA Unknown HCAP/HFA/FAP Active [id number] Social History Date Type Detail Facility Tobacco smoking stat [facility] Unknown if ever smoked [facility] Start: 1945 Sex Assigned At Female F [facility] Start: 06-29-2020 End: 12-28-2023 No caffeine use No caffeine use [facility] 250 DO Work Phone: Comment on above: Quit 1979; Start: 06-29-2020 End: 01-09-2023 Tobacco smoking status SDIS Ex-smoker [facility] End: 11-05-1979 History of tobacco use Current smoker [facility] End: 11-05-1979 History of tobacco use Cigarette Smoker [facility] Start: 06-29-2020 End: 12-28-2023 Alcohol intake Current non-drinker of alcohol (finding) [facility] Start: 1945 Sex Assigned At Not on file [facility] Start: 06-29-2020 End: 12-28-2023 Tobacco use and exposure Smokeless tobacco non-user [facility] Start: 06-29-2020 End: 12-28-2023 Tobacco use panel [facility] National Score (1-100), lower number is lower risk Not on file [facility] Medical Equipment Procedure Code Equipment Code Equipment Origin al Text Equipment Identifier Dates Implantable incontinence-contro l electrical stimulation system [id number] FDA Start: 10-25-2021 [id number] FDA Start: 10-25-2021 USE TO TEST [...] Type Note Facility 02-15-2024 Note HNO ID: [id number] Author: DARREL CHAMPAGNE RRT Service: ? Author Type: Registered Resp Therapist Type: Progress Notes Filed: 02/15/2024 17:02 Note Text: [facility] [place] [phone], fax [phone] Darrel Champagne RRT [facility] 02-15-2024 History of Presen t illness Narrative Faxed nebulizer rx to [facility] in [place] ph [phone], fax [phone] Darrel Champagne RRT documented in this encounter [facility] 01-22-2024 Miscellaneous Notes Images from the original note were not included. Imported external notification of equipment delivery from [employer], dated 01/16/2024. Please allow time delay for documents to appear in Epic (Scanned Documents Tab). Images can take up to 24 hours to appear in Epic. documented in this encounter [facility] 12-28-2023 Note HNO ID: [id number] Author: UBALDO HDZ MD Service: ? Author Type: Physician Type: Progress Notes Filed: 2024 13:33 Note Text: [facility] [place] Karuna Reynaga is a 78 year old female here for evaluation by the [facility] Interstitial Lung Disease Team. 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 SOCIAL HISTORY Social History Tobacco Use Smoking [...] No adenopathy. Thy (more content not included)... [facility] 12-28-2023 Instructions Ubaldo Hdz MD - [...] (I will send a prescription to a [facility]) How to Use the Acapella Assure proper [...] should not be placed in the automatic stamp mounter, boiled or bleached. 4. Rinse in clean water. 5. Shake off excess water. 6. Drain dry the device. Place each piece downward or rest the unit on its side. 7. Replace the mouthpiece when the unit is completely dry and ready for use. documented in this encounter [facility] 12-28-2023 History of Presen t illness Narrative Images from the original note were not included. [facility] [place] Karuna Reynaga is a 78 year old female here for evaluation by the [facility] Interstitial Lung Disease Team. 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 SOCIAL HISTORY Social History Tobacco Use Smoking [...] myself) Laboratory Data Laboratory data reviewed in [facility] Care Everywhere. Pulmonary Function Data PFT [...] unchanged from previous CT in 2020. ASSESSMENT aKruna Reynaga is a 78 year old female with a history of recurrent microaspiration presenting for evaluation of worsening of cough over the past 6 months. Her imaging is consistent with bronchiectasis and mild pulmonary fibrosis in the dependent regions of the lungs consistent with recurrent microaspiration. I provided her with an acapella device and instructed her how to use it but her [id number] states that she will likely not be [...] 5:04 PM CC: documented in this encounter [facility] 12-27-2023 Note HNO ID: [id number] Author: DAMASO GUTHRIE RT(R) Service: ? Author [...] PATIENT PRESENTS WITH AN IMPLANTABLE OR ATTACHED OSTOMY CARE NURSE: No RADIOLOGY DEPARTMENT: CT; Exam(s) Completed: Chest PERIPHERAL IV DATA: Not applicable SIGNED BY: RT Reginald(R) December 27, 2023 1:09 PM [facility] 12-25-2023 Note HNO ID: [id number] Author: YAMINI LAN RRT Service: ? Author Type: Registered Resp Therapist Type: Progress Notes Filed: 12/25/2023 15:11 Note Text: Pulmonary Function Test [facility] 12-25-2023 Note HNO ID: [id number] Author: YAMINI LAN RRT Service: ? Author Type: Registered Resp Therapist Type: Progress Notes Filed: 12/25/2023 15:00 Note Text: PULM FUNCTION SMARTBLOCK: Provider: Ubaldo Hdz MD Spirometry: 1 DLCO: 1 [facility] 12-25-2023 History of Presen t illness Narrative Pulmonary Function Test documented in this encounter [facility] 12-25-2023 History of Presen t illness Narrative PULM FUNCTION SMARTBLOCK: Provider: Ubaldo Hdz MD Spirometry: 1 DLCO: 1 documented in this encounter [facility] 02-20-2023 Evaluation note Authored February 21, 2024 [...] dysphagia then determine the need for PPI [facility] Work Phone: 1(226) 652-904212-16-2021 NoteHISTORY: Bone density screening. COMPARISON: None available. [...] signed by Gildardo Ernst on 10/20/2021 1621[facility] SpecialistEvaluation noteNo assessment information availableSouthern [facility]tr[facility]* Diagnosis Hypothyroidism, adult- Primary Other specified acquired hypothyroidism 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) Mixed hyperlipidemia [facility] Diagnosis Dermatophytosis of nail- Primary Well controlled type 2 diabetes mellitus with neurological manifestations (HCC) Type II or unspecified type diabetes mellitus with neurological manifestations, not stated as uncontrolled Unspecified hypothyroidism [facility] Diagnosis Dermatophytosis of nail- Primary [facility]* Diagnosis ILD (interstitial lung disease) (HCC)- Primary Postinflammatory pulmonary fibrosis Shortness of breath [facility]* Diagnosis Bronchiectasis without complication (HCC)- Primary Bronchiectasis without acute exacerbation Aspiration pneumonitis (HCC) Pneumonitis due to inhalation of food or vomitus Traumatic brain injury with loss of consciousness, sequela (HCC) [facility]* Diagnosis Onset Date Resolution Status Bronchitis noneactive [facility] Work Phone: Evaluation note* Diagnosis Bronchiectasis without complication (HCC)- Primary Bronchiectasis without acute exacerbation [facility] Outpatient Procedure (Routine) - Authorized Specialty Diagnoses / Procedures Referred By Marie duff Referred To [facility] Diagnoses Bronchiectasis without complication (HCC) Procedures LUNG DIFFUSION CAPACITY (DLCO) DIFFUSING CAPACITY Ubaldo Hdz MD [address] [place] [address] [facility] [place] [address] [place] [id number] Referral ID Status Reason Start Date Expiration Date Visits Requested Visits Authorized [id number] Authorized Auto-Generat ed Referral 12/28/2023 01/26/2025 1 1 * Outpatient Procedure (Routine) - Authorized Specialty Diagnoses / Procedures Referred By Marie duff Referred To [facility] Diagnoses Bronchiectasis without complication (HCC) Procedures SPIROMETRY BASELINE ONLY SPMTRY W/VC EXPIRATORY MIRIAM W/WO MXML VOL VNTJ Ubaldo Hdz MD [address] [place] [address] [address] Referral ID Status Reason Start Date Expiration Date Visits Requested Visits Authorized [id number] Authorized Auto-Generat ed Referral 12/28/2023 01/26/2025 1 1 [facility] Family History Unknown Family Member Name Dates [...] section and content) DATE CREATED AUTHOR 10/21/2021 [facility] dical Specialist DATE CREATED AUTHOR AUTHOR'S ORGANIZ ATION 10/22/2021 [employer] DATE CREATED AUTHOR AUTHOR'S ORGANIZ ATION 02/12/2023 [facility] DATE CREATED AUTHOR AUTHOR'S ORGANIZ ATION 02/14/2024 [facility] dical Specialists EPIC DATE CREATED AUTHOR AUTHOR'S ORGANIZ ATION 02/15/2024 [facility] DATE CREATED AUTHOR AUTHOR'S ORGANIZ ATION 02/17/2024 [facility] Source Comments (unrecognize d section and content) In the event this informatio n is protected by the Federal Confidentiality of Alcohol and Drug Abuse Patient Records regulations: The Federal rules restrict any use of the information to criminally investigate or prosecute any alcohol or drug abuse patient.[facility] Center[facility] the event this information is protected by the Federal Confidentiality of Alcohol and Drug Abuse Patient Records regulations: The Federal rules restrict any use of the information to criminally investigate or prosecute any alcohol or drug abuse patient.[facility] CenterIn the event this information is protected by the Federal Confidentiality of Alcohol and Drug Abuse Patient Records regulations: The Federal rules restrict any use of the information to criminally investigate or prosecute any alcohol or drug abuse patient.[facility] CenterIn the event this information is protected by the Federal Confidentiality of Alcohol and Drug Abuse Patient Records regulations: The Federal rules restrict any use of the information to criminally investigate or prosecute any alcohol or drug abuse patient.[facility] CenterIn the event this information is protected by the Federal Confidentiality of Alcohol and Drug Abuse Patient Records regulations: The Federal rules restrict any use of the information to criminally investigate or prosecute any alcohol or drug abuse patient.[facility] CenterIn the event this information is protected by the Federal Confidentiality of Alcohol and Drug Abuse Patient Records regulations: The Federal rules restrict any use of the information to criminally investigate or prosecute any alcohol or drug abuse patient.[facility] CenterIn the event this information is protected by the Federal Confidentiality of Alcohol and Drug Abuse Patient Records regulations: The Federal rules restrict any use of the information to criminally investigate or prosecute any alcohol or drug abuse patient.[facility] CenterIn the event this information is protected by the Federal Confidentiality of Alcohol and Drug Abuse Patient Records regulations: The Federal rules restrict any use of the information to criminally investigate or prosecute any alcohol or drug abuse patient.[facility] CenterIn the event this information is protected by the Federal Confidentiality of Alcohol and Drug Abuse Patient Records regulations: The Federal rules restrict any use of the information to criminally investigate or prosecute any alcohol or drug abuse patient.[facility] Care Teams (unrecognized sec tion and content) Ground Operations Crew Member Relationship Specialty Start Date End Date Ash Vance, DO [address] [place] [address] PCP General 05/25/09 Ground Operations Crew Member Relationship Specialty Start Date End Date Ash Vance, DO [address] [place] [address] PCP - General 05/25/09 Ground Operations Crew Member Relationship Specialty Start Date End Date Ash Vance, DO [address] [place] [address] PCP - General 05/25/09 Team Status: Inactive [...] November 21, 2023 End: November 21, 2023 Ground Operations Crew Member Relationship Specialty Start Date End Date Jamal Alvarez DO [address] [address] PCP - General Internal Medicine 12/25/23 Ground Operations Crew Member Relationship Specialty Start Date End Date AntonioJamal [address] [place] [address] PCP - General Internal Medicine 12/25/23 Ground Operations Crew Member Relationship Specialty Start Date End Date AntonioJamalDO breezy [address] [place] [address] PCP - General Internal Medicine 12/25/23 Team [...] Provider Active S tart: February 13, 2024 Ground Operations Crew Member Relationship Specialty Start Date End Date AntonioJamal DO [address] [place] [address] PCP - General Internal Medicine 12/25/23 Team [...] BRNCDILAT RSPSE SPMTRY PRE&POST-BRNCDILAT ADMN Dee Leal, CEMENTING BULK MATERIAL OPERATOR.BLUNGER [address] [place] [id number] Respiratory [place] [address] [place] [place] [id number] Referral ID Status Reason Start Date Expiration Date V isits Requested Visits Authorized [id number] Closed Auto-Generate d Referral 12/11/2023 01/09/2025 1 1 Specialty Diagnoses / Procedures Referred By Contac t Referred To Contact [facility] Diagnoses ILD (interstitial lung disease) (HCC) Shortness of breath Procedures LUNG DIFFUSION CAPACITY (DLCO) DIFFUSING CAPACITY Dee Leal, CEMENTING BULK MATERIAL OPERATOR.BLUNGER [address] [place] [id number] [place] [id number] Referral ID Status Reason Start Date Expiration Date V isits Requested Visits Authorized [id number] Closed Auto-Generate d Referral 12/11/2023 01/09/2025 1 [...] BE BASED ON THE PRIMARY CLINICAL RECORDS. [employer] [facility]. provides no warranty or guarantee of the accuracy or completeness of information in this document.
[2024-02-22 23:19] LABS: PROCALCITONIN <0.05 ng/mL (0.00-0.50)
[2024-02-22] MEDS: 0.9 % SODIUM CHLORIDE 1,000 ML 125 ML IV (23:39)
[2024-02-23] VITALS (7 sets, daily range): BP systolic 112–133; BP diastolic 62–74; PULSE 73–100; TEMP 36.4–37.2; O2SAT 92–98
[2024-02-23 04:38] LABS: Basophils Absolute Auto 0.1 10^3/uL (0.0-0.1); Basophils Percent Auto 0.7 % (0.2-2.0); Eosinophils Absolute Auto 0.1 10^3/uL (0.0-0.7); Eosinophils Percent Auto 1.1 % (0.9-7.0); Hematocrit 33.7 % (36.0-48.0); Hemoglobin 11.2 g/dL (12.0-16.0); Immature Granulocytes Abs Auto 0.02 10^3/uL (0.00-0.03); Immature Granulocytes Pct Auto 0.3 % (0.0-0.5); Lymphocytes Absolute Auto 1.8 10^3/uL (1.2-3.8); Lymphocytes Percent Auto 24.8 % (20.5-60.0); Mean Corpuscular HGB Conc 33.2 g/dL (29.9-35.2); Mean Corpuscular Hemoglobin 29.3 pg (26.7-34.0); Mean Corpuscular Volume 88.2 fL (81.0-99.0); Mean Platelet Volume 9.6 fL (9.5-13.5); Monocytes Absolute Auto 0.6 10^3/uL (0.3-0.8); Monocytes Percent Auto 7.5 % (1.7-12.0); Neutrophils Absolute Auto 4.8 10^3/uL (1.4-6.5); Neutrophils Percent Auto 65.6 % (43.0-75.0); Platelet Count 259 10^3/uL (150-450); Red Blood Count 3.82 10^6/uL (4.20-5.40); Red Cell Distribution Width 11.9 % (11.0-15.0); White Blood Count 7.4 10^3/uL (4.0-11.0)
[2024-02-23 04:55] LABS: Alanine Aminotransferase 15 U/L (14-59); Albumin Globulin Ratio 0.9; Albumin Level 2.8 g/dL (3.4-5.0); Alkaline Phosphatase 48 U/L (46-116); Anion Gap 11.4; Aspartate Amino Transferase 17 U/L (15-37); BUN Creatinine Ratio 25.9; Bilirubin Total 0.3 mg/dL (0.2-1.0); Calcium 8.2 mg/dL (8.5-10.1); Carbon Dioxide 25.8 mmol/L (21.0-32.0); Chloride 97 mmol/L (98-107); Estimated GFR (African America >60 (>=60); Estimated GFR (Non-African Ame >60 (>=60); Globulin 3.1 g/dL; Glucose 101 mg/dL (74-106); Potassium 4.2 mmol/L (3.5-5.1); Sodium 130 mmol/L (136-145); Total Protein 5.9 g/dL (6.4-8.2)
[2024-02-23] MEDS: 0.9 % SODIUM CHLORIDE 1,000 ML 125 ML IV (06:50)
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
--- NOTE | 2024-02-23 07:28 | XR_ITS ---
The [address] [address] Patient Name: NAT REYNAGA MRN: [id number] date: 1945 Sex: F Assigned Patient Location: [place] Current Patient Location: [place] Accession/Order Number: [id number] Exam Date: 02/23/2024 08:50 Report Date: 02/23/2024 09:29 At the request of: JOSE JOSEPH Procedure: XR chest 1V EXAM: XR chest 1V HISTORY: shortness of breath COMPARISON: 02/22/2024 FINDINGS/IMPRESSION: 1. Lungs are clear 2. No pneumothorax. No pleural effusion. 3. Heart size and mediastinal contours are normal 4. No acute osseous abnormality left humerus plate and screw fixation. 5. Upper abdominal bowel gas pattern is nonspecific. Diffuse idiopathic skeletal hyperostosis of the thoracic spine. Electronically authenticated by: JOSEF ARCINIEGA Date: 02/23/2024 09:29
[2024-02-23] MEDS: OMEPRAZOLE 40 MG CAPSULE.DR PO (08:54)
[2024-02-23] MEDS: CLOPIDOGREL BISULFATE 75 MG TABLET PO (08:54)
[2024-02-23] MEDS: ATORVASTATIN CALCIUM 10 MG TABLET PO (08:54)
[2024-02-23] MEDS: LIOTHYRONINE SODIUM 5 MCG TABLET PO ×2 (08:54→20:21)
[2024-02-23] MEDS: CALCIUM CARBONATE 600 MG/VITAMIN D3 400 IU TABLET 1 TAB PO (08:54)
[2024-02-23] MEDS: ENOXAPARIN SODIUM 30 MG/0.3 ML SYRINGE SUBQ (08:55)
[2024-02-23] MEDS: ACETAMINOPHEN 325 MG TABLET 650 MG PO (14:47)
[2024-02-23] MEDS: OXYBUTYNIN CHLORIDE 5 MG TAB XL PO (20:21)
[2024-02-23] MEDS: CEFTRIAXONE 1,000 MG in 0.9 % SODIUM CHLORIDE 50 ML 100 MG IV (20:23)
[2024-02-23] MEDS: AZITHROMYCIN 500 MG in 0.9 % SODIUM CHLORIDE 250 ML 250 MG IV (21:07)
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
[2024-02-23] MEDS: LORAZEPAM 2 MG/ML VIAL 0.5 MG IV (22:58)
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
[2024-02-24 06:47] LABS: Basophils Absolute Auto 0.1 10^3/uL (0.0-0.1); Basophils Percent Auto 0.9 % (0.2-2.0); Eosinophils Absolute Auto 0.2 10^3/uL (0.0-0.7); Eosinophils Percent Auto 2.1 % (0.9-7.0); Hematocrit 35.2 % (36.0-48.0); Hemoglobin 11.4 g/dL (12.0-16.0); Immature Granulocytes Abs Auto 0.02 10^3/uL (0.00-0.03); Immature Granulocytes Pct Auto 0.2 % (0.0-0.5); Lymphocytes Absolute Auto 2.5 10^3/uL (1.2-3.8); Mean Corpuscular HGB Conc 32.4 g/dL (29.9-35.2); Mean Corpuscular Hemoglobin 29.2 pg (26.7-34.0); Mean Platelet Volume 9.3 fL (9.5-13.5); Monocytes Absolute Auto 0.9 10^3/uL (0.3-0.8); Monocytes Percent Auto 10.1 % (1.7-12.0); Neutrophils Percent Auto 57.7 % (43.0-75.0); Platelet Count 273 10^3/uL (150-450); Red Blood Count 3.91 10^6/uL (4.20-5.40); Red Cell Distribution Width 12.4 % (11.0-15.0); White Blood Count 8.7 10^3/uL (4.0-11.0)
[2024-02-24 06:57] LABS: Alanine Aminotransferase 22 U/L (14-59); Albumin Globulin Ratio 0.8; Albumin Level 2.9 g/dL (3.4-5.0); Alkaline Phosphatase 50 U/L (46-116); Aspartate Amino Transferase 22 U/L (15-37); BUN Creatinine Ratio 20.6; Bilirubin Total 0.3 mg/dL (0.2-1.0); Calcium 8.3 mg/dL (8.5-10.1); Carbon Dioxide 27.1 mmol/L (21.0-32.0); Chloride 105 mmol/L (98-107); Estimated GFR (African America >60 (>=60); Estimated GFR (Non-African Ame >60 (>=60); Globulin 3.6 g/dL; Glucose 90 mg/dL (74-106); Potassium 4.1 mmol/L (3.5-5.1); Sodium 140 mmol/L (136-145); Total Protein 6.5 g/dL (6.4-8.2)
[2024-02-24 07:39] VITALS: BP 132/80; PULSE 79; TEMP 36.7; O2SAT 94
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
[2024-02-24] MEDS: ATORVASTATIN CALCIUM 10 MG TABLET PO (08:47)
[2024-02-24] MEDS: ENOXAPARIN SODIUM 30 MG/0.3 ML SYRINGE SUBQ (08:48)
[2024-02-24] MEDS: CALCIUM CARBONATE 600 MG/VITAMIN D3 400 IU TABLET 1 TAB PO (08:48)
[2024-02-24] MEDS: CLOPIDOGREL BISULFATE 75 MG TABLET PO (08:48)
[2024-02-24] MEDS: LIOTHYRONINE SODIUM 5 MCG TABLET PO (08:48)
[2024-02-24] MEDS: OMEPRAZOLE 40 MG CAPSULE.DR PO (08:49)
[2024-02-24] MEDS: LEVOFLOXACIN 500 MG TABLET PO (13:25)
--- NOTE | 2024-02-29 14:29 | CM.DCFOLLOWU ---
Person spoke with: Daughter How are you feeling? She is getting better everyday How is your pain? No pain Did you understand your discharge instructions? Yes Do you have any questions about your discharge instructions? No Were you given any prescriptions at discharge? Yes Were you able to get your prescriptions filled? Yes Do you understand how to take your medications as ordered? Yes Do you have any questions about your follow up appointment and do you plan to keep your follow up appointment? No she has already seen her PCP Is there anything else that you would like to discuss? No Questions/Comments/Concerns/Other:
== END 2024-02-24 16:09 | disposition home or self-care (01) | DRG 640 ==
LOC: ER 21:56 → MS 22:01
PROVIDERS: Personal Emergency Response Attendant; Registered Nurse; Admitting Provider Internal Medicine; Emergency Provider Emergency Medicine; PCP Internal Medicine; Visit Provider Family Medicine
DX: E87.1 Hypo-osmolality and hyponatremia (principal); J18.9 Pneumonia, unspecified organism; N30.00 Acute cystitis without hematuria; R41.82 Altered mental status, unspecified; K21.9 Gastro-esophageal reflux disease without esophagitis; M81.0 Age-related osteoporosis without current pathological fracture; E03.9 Hypothyroidism, unspecified; F06.8 Other specified mental disorders due to known physiological condition; Z87.820 Personal history of traumatic brain injury; Z79.899 Other long term (current) drug therapy; Z79.890 Hormone replacement therapy; B96.20 Unspecified Escherichia coli [E. coli] as the cause of diseases classified elsewhere
CPT/HCPCS: 0202U; 36415; 70450; 71045; 80053; 81001; 83880; 84145; 84484; 85025; 85610; 85730; 87040; 87086; 87150; 87186; 93005; 96361; 96365; 96366; 96367; 96375; 99285; J0456

== ENCOUNTER 2024-03-03 13:17 | Outpatient (OUT) | payer MEDICARE, SELFPAY | END 2024-03-03 13:18 | disposition home or self-care (01) | LOC: PST 13:17 | PROVIDERS: PCP Internal Medicine; Visit Provider Ophthalmology | DX: Z01.818 Encounter for other preprocedural examination (principal); H25.812 Combined forms of age-related cataract, left eye ==

== ENCOUNTER 2024-03-06 07:37 | Day surgery (SDC) | payer MEDICARE, SELFPAY ==
--- NOTE | 2024-03-06 07:37 | HP_ITS ---
PREOPERATIVE HISTORY AND PHYSICAL Date:? 03/05/2024 HISTORY:? The patient is a 79-year-old white female with complaints of declining vision out of her left eye.? The onset of this has been gradual over the last 2- 3 years.? It had been noted by her claims collector, but she had also noted having difficulty at distance, as well as near.? She no longer feels comfortable watching television, and feels that reading and working on adult coloring books has become more challenging because of the decline in her vision. PAST OCULAR HISTORY:? Denies. PAST MEDICAL HISTORY:? Asthma, traumatic brain injury, hyperlipidemia, depression, hypothyroidism, memory loss, osteoporosis, transient cerebral ischemia, type 2 diabetes.? Adenoidectomy, tonsillectomy SOCIAL HISTORY:? Denies tobacco, alcohol or recreational drug abuse. SYSTEMIC MEDICATIONS:? Include liothyronine, albuterol, loperamide, omeprazole, estradiol, clopidogrel, simvastatin, ibandronate, oxybutynin, desmopressin.? ALLERGIES TO MEDICATIONS:? Include codeine, propoxyphene, penicillin, sulfa, midazolam and latex. REVIEW OF SYSTEMS:? No pertinent positives, other than loss of short term memory. PHYSICAL EXAM: GENERAL:? In general, she is awake, alert and oriented x3, well developed, well nourished, in no acute distress.? HEART:? Regular rate and rhythm. LUNGS:? Clear bilaterally. ABDOMEN:? Soft, non-tender, non-distended. EXTREMITIES:? No pitting edema. OPHTHALMIC EXAM:? Revealed a visual acuity of 20/100 in the right and 20/100 in the left, both glaring to 20/400 bilaterally.? Pupils motility, muscle balance and confrontational visual galindo within normal limits bilaterally.? Pressures are measured at 16 bilaterally.? Slit lamp exam revealed blepharitis with a severe decrease in tear film bilaterally.? Conjunctiva, cornea, anterior chamber and iris were within normal limits bilaterally.? Lens status demonstrated 3+ nuclear sclerosis with vacuoles bilaterally. FUNDUS EXAM:? Revealed good view with good dilation bilaterally.? Optic discs, macula, vessels, periphery and vitreous were within normal limits bilaterally.? ASSESSMENT AND PLAN:? Visually significant cataract, left eye.? After the risks, benefits, and alternatives as well as expectations were delivered to the patient, she elected to go forward with cataract removal.? She understands those risks to include but not limited to infection, bleeding, loss of vision or loss of the eye itself.? Secondly, she understands that postoperatively she is likely to require spectacle correction for her best visual acuity.? Finally, a complete ophthalmic exam was performed and there was not determined to be any other source of vision decline other than that of cataract.? After understanding all risks as well as expectations, she elected to go forward with the procedure as listed above and will be doing so in the near future. YISSEL
--- NOTE | 2024-03-06 07:37 | OP_ITS ---
OPERATION DATE: ??03/06/2024 SURGEON:? Saul Abdalla M.D. PREOPERATIVE DIAGNOSIS:? Nuclear sclerotic cataract left eye. POSTOPERATIVE DIAGNOSIS:? Nuclear sclerotic cataract left eye. PROCEDURE:? Cataract extraction with intraocular lens placed for the left eye. ANESTHESIA:? Topical. ESTIMATED BLOOD LOSS:? Zero. COMPLICATIONS:? None. PROCEDURE:? The patient was brought to the Operating Room in supine position.? After proper identification, the left eye was prepped and draped in a sterile ophthalmic fashion.? A paracentesis was created at the 5 o'clock position.? Approximately 1 cc of unpreserved Xylocaine was injected into the anterior chamber followed by Amvisc Plus.? Using a 2.6 mm Keratome blade, a clear corneal incision was created at the 2 o'clock limbus.? A cystotome was then used to begin a curvilinear capsulorrhexis that was continued for 360 degrees with the Utrata forceps.? BSS on a 26 gauge cannula was injected beneath the anterior capsule to hydrodissect as well as hydrodelineate the lens.? After ensuring mobility, phacoemulsification was performed in a [id number]-type fashion.? After all nuclear material had been removed from the eye, IA was introduced and all residual cortical material was cleaned up.? Additional Amvisc Plus was injected into the posterior bag and a lens model MX60, 22.5 diopters was injected and dialed into position.? After ensuring centration, IA was re- introduced into the anterior chamber and all residual Amvisc Plus was removed from the eye.? BSS on a 30 gauge cannula was then injected into the stroma of both the clear corneal incision as well as paracentesis to hydrate the wounds.? Additional BSS was injected into the anterior chamber to pressurize the eye at approximately 20 to 22 mmHg by finger tension.? 0.1 cc of antibiotic was injected into the anterior chamber and Weck-Taya sponges were used to check the wounds to be watertight.? One drop of apraclonidine and one drop of prednisolone acetate were placed into the eye and a shield was placed over top. The patient was sent to the postoperative area in satisfactory condition to follow up the following day for postoperative care. YISSEL
--- OUTSIDE RECORDS SUMMARY | 2024-03-06 07:39 | XMS_ITS | CCD ---
Author Organization [facility] Care Team Providers Care Bank Representative Name Role Phone Jamal Alvarez Unavailable Unavailable Unavailable Ash Vance DO Primary Care Provider Ash Vance DO Primary Care Provider DO Jamal Alvarez Primary Care Provider [phone] DO Hermes Kennedy Attending Provider DIAB ., BRUCE Admitting Unavailable DIAB ., BRUCE Attending Unavailable DR JAMAL ALVAREZ Primary Care Unavailable DIAB ., BRUCE Consulting Unavailable ANTONIO, DR WILLAMS Admitting Unavailable DR JAMAL ALVAREZ Attending Unavailable QUINTIN LEROY Primary Care Unavail able DR JEANETH ECHOLS V Consulting Unavailable DR JAMAL ALVAREZ Consulting Unavailable ANTONIO, DR WILLAMS Admitting Unavailable DR JAMAL ALVAREZ Attending Unavailable QUINTIN LEROY Primary Care Unavail able DR JAMAL ALVAREZ Consulting Unavailable DO Jamal Alvarez Primary Care Provider [phone] MD Valdez Castro Attending Provider DO Jamal Alvarez Attending Provider Jamal Alvarez DO Primary Care Provider DO Jamal Alvarez Primary Care Provider DO Jamal Alvarez Attending Provider [phone] CORNELIUS Pearce Attending Provider [phone] DO Jamal Alvarez Primary Care Provider [phone] DO Jamal Alvarez Attending Provider TEAGAN Lockhart Attending Provider [phone] JAMAL ALVAREZ Attending Unavailable JAMAL ALVAREZ Referring Unavailable IRVING DUVALL Attending Unavailable EMMA MELISSA Referring Unavailable ALICE FROST Referring Unavailable JAMAL ALVAREZ Attending Unavailable JAMAL ALVAREZ Referring Unavailable JESUS ROBERSON Attending Unavailable JESUS ROBERSON Referring Unavailable JAMAL ALVAREZ Referring Unavailable Nallely Pearce Admitting Unavailable Nallely Pearce Attending Unavailable Jamal Alvarez Primary Care Unavailable Jamal Alvarez Primary Care Unavailable Moosa, Valdez F Admitting Unavailable Moosa, Valdez F Attending Unavailable Jamal Alvarez Primary Care Unavailable Moosa, Valdez F Admitting Unavailable Moosa, Valdez F Attending Unavailable Jamal Alvarez Primary Care Unavailable Jamal Alvarez Attending Unavailable Jamal Alvarez Admitting Unavailable Jamal Alvarez Attending Unavailable Jamal Alvarez Admitting Unavailable Jamal Alvarez Primary Care Unavailable Jose Luis Lockhart Admitting Unavailable Jose Luis Lockhart Attending Unavailable Jamal Alvarez Primary Care Unavailable Jamal Alvarez DO Primary Care Provider Ubaldo Dubose Attending Unavailable JAMAL ALVAREZ Primary Care Unavailabl e GLENNIE, DEE Referring Unavailable BUNTING, ASH RAY Primary Care Unavailable GLENNIE, DEE Referring Unavailable BUNTING, ASH RAY Primary Care Unavailable KAYCEE, DEE Referring Unavailable JAMAL ALVAREZ Primary Care Unavailabl e Ubaldo Dubose Attending Unavailable JAMAL ALVAREZ Primary Care Unavailabl e Allergies Allergy Classification Reported Allergen(s) Allergy Type Date of Onset Reaction(s) Facility (11 sources) Codeine; Translations: [codeine] Drug Allergy 3 Unknown Reaction [facility] (4 sources) Penicillins; Translations: [Penicillins] Allergy to drug (finding) 9 [facility] Repository (12 sources) Propoxyphene; Translations: [propoxyphene] Drug Allergy 3 Other: See Comments [facility] (3 sources) Sulfamethoxazole ; Translations: [sulfa] Drug Allergy [facility] y 250 DO Work Phone: (14 sources) Latex; Translations: [LATEX] Propensity to adverse reactions 9 [facility] (1 source) Penicillins Propensity to adverse reactions 9 [facility] (14 sources) [facility]; Translations: [STRAWBERRIES] Propensity to adverse reactions 9 [facility] (20 sources) Sulfonamides (Antibiotic); Translations: [SULFA (SULFONAMIDE ANTIBIOTICS)] Propensity to adverse reactions 9 [facility] (14 sources) Propoxyphene N-Acetaminophen; Translations: [PROPOXYPHENE N-ACETAMINOPHEN] Drug Allergy 0 [facility] (12 sources) Penicillins Propensity to adverse reactions 9 [facility] (8 sources) strawberry allergenic extract Drug Allergy 3 Nausea [facility] (1 source) Penicillins Drug allergy (disorder) [facility] Repository (1 source) Sulfonamides (Antibiotic) Drug allergy (disorder) [facility] Repository (16 sources) Midazolam; Translations: [MIDAZOLAM] Drug Allergy 3 Mental Status Change [facility] (7 sources) opiates Propensity to adverse reactions 3 Confusion [facility] (9 sources) Morphinan opioid; Translations: [OPIOIDS - MORPHINE ANALOGUES] Drug Allergy 3 Mental Status Change, Unknown [facility] Medications Current Medications Medication Drug Class(es) Dates Sig (Normalized) Sig (Original) Calcium (13 sources) Phosphate Binder, Calcium Start: 06-29-2009 CALCIUM 500 MG TAB Take one(1) tablet twice daily. 0 06/29/2009 Active Comment on above: Take one(1) tablet t wice daily. cholecalciferol 0.05 mg oral capsule (19 sources) Vitamin D Start: 10-17-2021 Cholecalciferol, Vitamin D3, 50 mcg (2,000 unit) cap Daily 0 10/17/2021 Active Comment on above: Daily clopidogrel 75 mg oral tablet (20 sources) P2Y12 Platelet Inhibitor Start: 06-29-2009 clopidogrel bisulfate(PLAVIX 75 MG TAB) Take one(1) tablet daily. 0 06/29/2009 Active Comment on above: Take one(1) tablet d aily. desmopressin acetate 0.2 mg oral tablet (2 sources) Vasopressin Analog, Factor VIII Activator Start: 02-21-2024 take 0.2 mg by mouth once daily at bedtime Desmopressin Active 0.2 MG PO Daily at bedtime February 21, 2024 12:00am estradiol 0.1 mg/ml vaginal cream (19 sources) Estrogen Start: 12-26-2022 Estradiol Active 1 [...] vaginally. ibandronic acid 150 mg oral tablet (19 sources) Bisphosphonate Start: 11-05-2019 Ibandronate 150 mg tablet Take 1 tablet by mouth. 0 11/05/2019 Active Start: 11-05-2019 take 1 tablet by marilyn th every month Ibandronate Sodium 150 MG Oral Tablet TAKE 1 TABLET BY MOUTH ONCE A MONTH Quantity: 3 Refills: 0 Ordered: 09-Aug-2021 DO Start : 16-Feb-2021 Active Comment on above: Take 1 tablet by marilyn th. liothyronine sodium 0.005 mg oral tablet (16 sources) l-Triiodothyroni ne Start: 10-25-2023 take 1 tablet by mouth every twelve hours liothyronine (CYTOMEL) 5 mcg tablet Take 1 tablet by mouth every 12 hours. 0 10/25/2023 Active Start: 12-26-2022 take 5 ug by mouth twice daily Liothyronine Active 5 MCG PO Twice daily December 26, 2022 1:00am Comment on above: Take 1 tablet by marilyn th every 12 hours. MULTIVITAMIN TAB (13 sources) Start: 9 MULTIVITAMIN TAB Take one(1) tablet daily. 0 06/29/2009 Active Comment on above: Take one(1) tablet d aily. Nebulizer and Compressor For Neb (2 sources) Start: End: Nebulizer and Compressor For Neb 1 Each as needed for up to 1 day. Use as directed. 1 Each 0 02/15/2024 02/16/2024 Active Comment on above: 1 Each as needed for up to 1 day. Use as directed. 24 hr oxybutynin chloride 5 mg extended release oral tablet (20 sources) Cholinergic Muscarinic Antagonist Start: take 5 mg by mouth once daily at bedtime Oxybutynin Chloride Active 5 MG PO Daily at bedtime February 22, 2024 12:00am Start: 10-17-2021 End: 02-22-2024 take 1 tablet by mouth once daily at bedtime Oxybutynin Chloride (Ditropan Xl) 10 mg Tablet Extended Release 24hr Discontinued 10 MG PO Daily at bedtime October 17, 2021 1:00am February 22, 2024 9:16am Start: 01-31-2021 take 1 tablet by marilyn th every twenty-four hours at bedtime Oxybutynin Chloride ER 10 MG Oral Tablet Extended Release 24 Hour TAKE 1 TABLET BY MOUTH AT BEDTIME Quantity: 90 Refills: 0 Ordered: 01-Aug-2021 DO Start : 31-Jan-2021 Active Start: 06-29-2009 End: 03-03-2024 OXYBUTYNIN CHLORIDE 5 MG/5 M L SYRUP Take one(1) tablet two(2) times daily. 0 06/29/2009 03/03/2024 Discontinued Comment on above: Take one(1) tablet t wo(2) times daily. sodium chloride 30 mg/ml inhalation solution (6 sources) Start: 02-15-2024 sodium chloride (NEBUSAL) 3 % nebulizer solution Use 2 mL via nebulizer two times a day. 360 mL 3 02/15/2024 Active Comment on above: Use 2 mL via nebuliz er two times a day. Completed/Discontinued Medications Medication Drug Class(es) Dates Sig [...] instr ucted every 6 hours as needed. calcium carbonate 1250 mg / cholecalciferol 125 unt oral tablet (8 sources) Vitamin D Start: 10-17-20 End: 01-10-20 take 1 tablet by mouth once daily Calcium Carbonate-Vitamin D3 Discontinued 1 TAB PO Daily October 17, 2021 1:00am January 09, 2023 11:55am cephalexin 500 mg oral capsule (8 sources) Cephalosporin Antibacterial Start: 10-25-20 End: 12-26-19 take 500 mg by mouth twice daily Cephalexin Discontinued 500 MG PO Twice daily 14 7 October 25, 2021 1:00am December 26, 2022 3:00pm diphenoxylate HCl/atropine (LOMOTIL ORAL) (6 sources) End: 12-28-19 24 diphenoxylate HCl/atropine (LOMOTIL ORAL) Take by mouth. 0 12/28/2023 Discontinued diphenoxylate HC l/atropine (LOMOTIL ORAL) Take by mouth. 0 Active Comment on above: Take by mouth. docusate sodium 100 mg oral capsule (6 sources) Start: 06-29-20 09 End: 12-28-19 24 docusate sodium(COLACE 100 MG CAP) Take one(1) tablet daily 0 06/29/2009 12/28/2023 Discontinued Comment on above: Take one(1) tablet d aily escitalopram 20 mg oral tablet (6 sources) Serotonin Reuptake Inhibitor Start: 06-29-20 End: 12-28-19 escitalopram oxalate(LEXAPRO 20 MG TAB) Take one(1) tablet daily. 0 06/29/2009 12/28/2023 Discontinued Comment on above: Take one(1) tablet d aily. fexofenadine hydrochloride 180 mg oral tablet (8 sources) Histamine-1 Receptor Antagonist Start: 10-17-20 End: [...] Active hydrOXYzine hydrochloride 25 mg oral tablet (11 sources) Antihistamine Start: 08-16-20 End: 02-21-20 take 25 mg by mouth every eight hours Hydroxyzine Hcl Discontinued 25 MG PO Q8H October 17, 2021 1:00am February 21, 2024 10:47am levothyroxine sodium 0.075 mg oral tablet (20 sources) l-Thyroxine Start: 05-10-20 End: 02-22-20 take 75 ug by mouth once daily in the morning Levothyroxine Discontinued 75 MCG PO Every morning October 17, 2021 1:00am February 22, 2024 9:14am Start: 05-23-2020 levothyroxine (SYNTHROID) 50 mcg tablet 50 mcg. 0 05/23/2020 Active Comment on above: 50 mcg. loperamide hydrochloride 2 mg oral capsule (18 sources) Opioid Agonist Start: 10-17-20 End: 03-03-20 loperamide (IMODIUM) 2 mg cap(s) Every morning 0 10/17/2021 03/03/2024 Discontinued Comment on above: Every morning LORazepam 1 mg oral tablet (6 sources) [...] 0 Ordered: 21-Oct-2021 DO Active Multivitamin preparation (8 sources) Start: 10-17-20 End: 12-26-19 take 1 tablet by mouth once daily Multivitamin Discontinued 1 TAB PO Daily October 17, 2021 1:00am December 26, 2022 3:02pm Start: 10-17-2021 End: 12-26-2022 take 1 tablet by mouth once daily Multivitamin Discontinued 1 TAB PO Daily October 17, 2021 12:00am December 26, 2022 2:02pm omeprazole 40 mg delayed release oral capsule (19 sources) Proton Pump Inhibitor Start: 08-09-2021 End: 03-03-2024 take 40 mg by mouth once daily Omeprazole Discontinued 40 MG PO Daily October 17, 2021 1:00am December 26, 2022 3:02pm Comment on above: Take by mouth at bed time as needed. simvastatin 20 mg oral tablet (17 sources) HMG-CoA Reductase Inhibitor Start: 02-16-2021 End: [...] 40 mg by mouth daily at bedtime. thymol/chlorophyllin (CHLOROPHYLL ORAL) (6 sources) End: 12-28-2023 thymol/chlorophyllin (CHLOROPHYLL ORAL) Take by mouth. 0 12/28/2023 Discontinued thymol/chlorophy llin (CHLOROPHYLL ORAL) Take by mouth. 0 Active Comment on above: Take by mouth. tiZANidine 4 mg oral tablet (14 sources) Central alpha-2 Adrenergic Agonist Start: End: [...] mouth. traMADol hydrochloride 50 mg oral tablet (8 sources) Opioid Agonist Start: 10-25-2021 End: 12-26-2022 take 50 mg by mouth every six hours Tramadol Discontinued 50 MG PO Q6H 8 2 October 25, 2021 1:00am December 26, 2022 3:02pm Problems Active Problems Problem Classification Problem Date Documented Da te Episodic/Chronic Aspiration pneumonitis; food/vomitus (2 sources) Aspiration pneumonitis; Translations: [Pneumonitis due to inhalation of food and vomit] 12-28-2023 Episodic Cardiac dysrhythmias (3 sources) Sinus bradycardia; Translations: [Other specified cardiac dysrhythmias] Episodic Chronic obstructive pulmonary disease and bronchiectasis (4 sources) Bronchiectasis; Translations: [Bronchiectasis, uncomplicated] 12-28-2023 Chronic Chronic obstructive pulmonary disease and bronchiectasis (3 sources) Bronchitis, not specified as acute or chronic; Translations: [Bronchitis, not specified as acute or chronic] 02-13-2024 Episodic Diabetes mellitus with complications (2 sources) Disorder of nervous system due to type 2 diabetes mellitus; 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] Chronic Disorders of lipid metabolism (1 source) Mixed hyperlipidemia; Translations: [Mixed hyperlipidemia] Chronic Esophageal disorders (4 sources) Gastroesophageal reflux disease; Translations: [Gastro-esophageal reflux disease without esophagitis] 02-21-2024 Chronic Intracranial injury (2 sources) Traumatic brain injury with loss of consciousness; Translations: [Unspecified intracranial injury with loss of consciousness of unspecified duration, sequela] 12-28-2023 Episodic Menopausal disorders (1 source) Hormone replacement therapy; Translations: [HORMONE REPLACEMENT THERAPY] Onset: 3 Episodic Mycoses (2 sources) Onychomycosis due to dermatophyte ; Translations: [Tinea unguium] Episodic Other aftercare (1 source) Other longterm (current) drug therapy; Translations: [OTH GLOVE BOARDER CURRENT DRUG THERAPY] Onset: 3 Episodic Other gastrointestinal disorders (4 sources) Constipation, unspecified; Translations: [CONSTIPATION UNSPECIFIED] Onset: 3 Episodic Other gastrointestinal disorders (2 sources) Dysphagia; Translations: [Dysphagia, unspecified] 02-21-2024 Episodic Other gastrointestinal disorders (2 sources) Dysphagia, unspecified; Translations: [Dysphagia, unspecified] 02-21-2024 Episodic [...] Onset: 4 Episodic Other nervous system disorders (8 sources) Acute postoperative pain; Translations: [Other acute postprocedural pain] 10-25-2021 Episodic Other nutritional; endocrine; and metabolic disorders (3 sources) Obesity; Translations: [Obesity, unspecified] Chronic Other upper respiratory disease (4 sources) Feeling of lump in throat; Translations: [...] Onset: 04-05-2022 Episodic Other lower respiratory disease (13 sources) Cough; Translations: [Cough] Onset: 06-29-2020 06-29-2020 Episodic Other screening for suspected conditions (not mental disorders or infectious disease) (4 sources) Encounter for screening mammogram for malignant neoplasm of breast; Translations: [ENC SCR MAMMO MALIG NEOPLASM BREAST] Onset: 03-27-2022 Episodic Results Test Name Value Interpretation Reference Range Facility [facility] KARUNA REYNAGA ([id number]) 1945 F Date Time Provider Department 02/26/24 UBALDO DUBOSE [facility] During your visit today, we recorded the following information about you: Eileen Lucas, RN 02/26/2024 4:05 PM Signed Received outside imaging reports via electronic fax. Uploaded to scanned documents for provider to review. John Madison 02/27/2024 8:44 AM Signed Imported external imaging report from [facility], dated 02/22/2024. Please allow time delay for documents to appear in velingo (Scanned Documents Tab). Images can take up to 24 hours to appear in Epic. John Madison 02/27/2024 8:59 AM Signed Imported external CT report from [facility], dated 02/25/2024. Please allow time delay for documents to appear in velingo (Scanned Documents Tab). Images can take up to 24 hours to appear in Epic. Allergies As of Date: 02/26/2024 Noted Allergy Reaction DARVOCET A500 (PROPOXYPHENE N-ROB*06/29/2020 [...] Outside Medical Records [[id number]] Prescriptions as of 02/27/2024 - sodium chloride (NEBUSAL) 3 % nebulizer solution Use 2 mL via nebulizer two times a day. - Cholecalciferol, Vitamin D3, 50 mcg (2,000 [...] tablet daily. Problem List As Of Date 02/26/2024 Noted Resolved Cough [R05.9] 06/29/2020 Encounter Status:Closed by EILEEN LUCAS on 02/26/24 [facility] Telephone ([facility]) KARUNA REYNAGA ([id number]) 1945 F Date Time Provider Department 02/26/24 UBALDO DUBOSE During your visit today, we recorded the following information about you: Kortney Linn PSS 02/26/2024 12:14 PM Signed Called patient to offer virtual appointment with Dr. Dubose on 03/03/2024 at 12:30pm. No answer, unable to leave voicemail. Kortney Linn PSS 02/26/2024 1:53 PM Signed Patient is scheduled on 03/03/2024 at 12:30pm. Allergies As of Date: 02/26/2024 Noted Allergy Reaction DARVOCET A500 (PROPOXYPHENE N-ROB*06/29/2020 [...] MA - Fully Assessed Reason for Visit: Appointment [186] Prescriptions as of 02/26/2024 - sodium chloride (NEBUSAL) 3 % nebulizer solution Use 2 mL via nebulizer two times a day. - Cholecalciferol, Vitamin D3, 50 mcg (2,000 [...] tablet daily. Problem List As Of Date 02/26/2024 Noted Resolved Cough [R05.9] 06/29/2020 Encounter Status:Closed by KORTNEY LINN on 02/26/24 Normal [facility] CT angio chest PE protocolon 02-25-2024 CT angio chest PE protocol [facility] [address] [place] [address] CT Scan Report Signed Patient: Karuna Reynaga MR#: [id number] 289 : 1945 Acct:[id number] Age/Sex: 79 / F ADM Date: 02/25/24 Loc: CT Room: Type: [facility] Attending Dr: Jose Luis Lockhart RN, MSN, ANP-C Copies to: JOSE LUIS LOCKHART RN, MSN Ordering Provider: JOSE LUIS LOCKHART RN, MSN Date of Service: 02/25/24 CT/CT angio chest PE protocol: J84.89, I26.99, J84.10 CTA Chest with PE protocol TECHNIQUE: Axial imaging with 2-D and 3-D reconstruction. 68cc of Isovue-[address] exam was performed using one or more the following dose reduction techniques: Automated exposure control, adjustment of the MA and/or Kv according to patient size, or use of the iterative reconstruction technique. History: Shortness of breath. Chest pain for 5 days. Reformed smoker. History of fibrosis and interstitial lung disease. History of prior pulmonary emboli. COMPARISON: None THYROID: Unremarkable TRACHEA AND BRONCHI: Patent ESOPHAGUS: Unremarkable. HEART: Within normal limits PERICARDIAL EFFUSION: None CORONARY ARTERY CALCIFICATION: None MEDIASTINUM: No adenopathy. No pneumoperitoneum. No mediastinal hematoma. PULMONARY CHARLOTTE: No hilar mass or adenopathy is seen. THORACIC AORTA Unremarkable PULMONARY EMBOLUS: None LUNG NODULE None LUNGS: Diffuse groundglass interstitial prominence. The basilar atelectasis/scarring . PLEURAL EFFUSION: None PNEUMOTHORAX: No pneumothorax seen. CHEST WALL: No abnormality AXILLA: Unremarkable BONY STRUCTURES Intact UPPER ABDOMEN: Cholelithiasis. CT/CT angio chest PE protocol IMPRESSION: No acute pulmonary embolus. Diffuse groundglass basilar parenchymal density which may be related to interstitial lung disease.. Basilar linear atelectasis/scarring . Impression dictated by: Jamal Bird M.D.02/25/2024 2:40 PM Dictation Location: [place] [address] Transcribed By: [facility] 02/25/24 1440 Dictated By: Jamal Bird DO 02/25/24 1429 Signed By: 02/25/24 1440 Normal [facility] Creatinine (Bld) [Mass/Vol]O rdered By: JOSE LUIS LOCKHART on 02-25-2024 Creatinine [Mass/Vol] 0.7 mg/dL 0.6-1.3 [facility] Comment on above: ER/ESD physician is notified/shown all ISTAT results.Critical values may be confirmed by laboratory testing ifdeemed necessary by ER attending doctor. ISTAT XRay CREon 02-25-2024 Creatinine [Mass/Vol] 0.7 mg/dL Normal 0.6-1.3 [facility] Comment on above: Result Comment: ER/E SD physician is notified/shown all ISTAT results. Critical values may be confirmed by laboratory testing if deemed necessary by ER attending doctor. Performed By: #### I SCRE #### [facility] [address] [place] [address] ISTAT GFR > 60.0 Normal [facility] Comment on above: Result Comment: PERF ORMED BY: [place] [address] PATHOLOGIST DRUM PULLER EDMOND NORTH M.D. Performed By: #### I SCRE #### [facility] [address] [place] [address] No Panel InformationOrdered By: JOSE LUIS LOCKHART on 02-25-2024 Bedside Estimated GFR (eGFR) > 60.0 [facility] XR CHEST 2 VIEWSon XR CHEST 2 VIEWS Comparison October 13, 2021 Increased interstitial markings throughout both lungs, greatest within right upper lobe, lingula and both posterior basilar regions. No pulm edema or pleural effusion. No mediastinal or hilar lymphadenopathy. Persistent right medial hemidiaphragm eventration IMPRESSION: Impression: Interstitial pneumonia. ELECTRONICALLY SIGNED BY: Frankie Plummer MD Normal Not Available XR HIP 2 OR 3 VW LEFTon 02-03 XR HIP 2 OR 3 VW LEFT Minimal superior h ip joint space loss. Small left pincer deformity. No CAM deformities. No fracture. Lumbosacral arthritis. IMPRESSION: Impression: mild hip arthritis, no fracture ELECTRONICALLY SIGNED BY: Frankie Plummer MD Normal Not Available XR chest 2V*on 02-13-2024 XR chest 2V* [facility] [address] [place] [address] XRay Report Signed Patient: Karuna Reynaga MR#: [id number] 289 : 1945 Acct:[id number] Age/Sex: 79 / F ADM Date: 02/13/24 Loc: XDUCLY Room: Type: [facility] Attending Dr: Nallely SHIELDS Copies to: [...] Emma Muñoz M.D.02/13/2024 7:24 PM Dictation Location: [place] [address] Transcribed By: [facility] 02/13/241923 Dictated By: Emma Muñoz II, MD 02/13/241921 Signed By: 02/13/241923 Normal [facility] CNPNon 01-22-2024 [facility] Telephone ([facility]) KARUNA REYNAGA ([id number]) 1945 F Date Time Provider Department 01/22/24 UBALDO DUBOSE During your visit today, we recorded the following information about you: John Madison 01/22/2024 2:49 PM Signed Imported external notification of equipment delivery from [employer], dated 01/16/2024. Please allow time delay for documents to appear in velingo (Scanned Documents Tab). Images can take up to 24 hours to appear in velingo. Allergies As of Date: 01/22/2024 Noted Allergy [...] Reason for Visit: Received Outside Medical Records [[id number]] Prescriptions as of 01/23/2024 - Cholecalciferol, Vitamin [...] Cough [R05.9] 06/29/2020 Encounter Status:Closed by JOHN MADISON on 01/23/24 Normal [facility] CNOVon 12-28-2023 CNOV Office Visit ([facility]) KARUNA REYNAGA ([id number]) 1945 F Date Time Provider Department 12/28/23 1:30 PM UBALDO DUBOSE During your visit today, we recorded the following information about you: Temperature Pulse Respiration Blood pressure 97.6 degrees 67/minute 16/minute 137/65 Weight 79.4 kg Ubaldo Dubose MD 2024 1:33 PM Addendum Respiratory Chauncey Karuna Reynaga is a 78 year old female here for evaluation by the [facility] Interstitial Lung Disease Team. Consultation requested by [...] acute distr (more content not included)... Normal [facility] CT CHEST WO IVCONon 12-27-19 CT CHEST WO IVCON * * *Final Report* * * DATE OF EXAM: Dec 27 2023 1:09PM [facility] 0541 - CT CHEST WO IVCON / [...] calcified gallstone is noted in the gallbladder. Eyeglass Lens Cutter (topogram) images: No additional findings. IMPRESSION: 1. [...] any questions regarding this interpretation, please call [phone]. If you are unable to reach us at the number above, please feel free to contact [facility] eRadiology at [phone]. [id number] CN Normal [facility] LUNG DIFFUSION CAPACITY (SHANKAR O)on 12-25-2023 [facility] SPIROMETRY WITH DILATOR IF O BSTRUCTEDon 12-25-2023 DLCO (ml/min/mmHg) 9.76 ml/min/mmHg [facility] DLCO/VA (ml/min/mmHg/L) 4.48 ml/min/mmHg/L [facility] NEB63-67% PRE (L/S) 1.32 L/S [facility] FEV1 PRE (L) 1.05 L [facility] FEV1/FVC PRE (%) 89 % [facility] FVC PRE (L) 1.19 L [facility] PEF PRE (L/S) 1.90 L/S [facility] VA (L) 2.18 L [facility] CNPNon 11-28-2023 CNPN Telephone (PULN) KARUNA REYNAGA ([id number]) 1945 F Date Time Provider Department 11/28/23 BARON ALCALA During your visit today, we recorded the following information about you: Rachelle Fulton 11/28/2023 9:25 AM Signed Admin spoke with pt who stated she was calling to ask questions: -Does Dr. Alcala do virtual visits? -What locations does Dr. Alcala see pt's at? -Pt stated she would like to take the next available with Dr. Alcala depending on availability Guillermina Emmy 11/29/2023 9:07 AM Signed Patient's daughter called with concerns with her mom since the patient had a chest xray showing ILD and patient is having crackling noises in her chest. Please call daughter to let her know if patient can have a sooner appointment. Red Anderson, RN 11/29/2023 11:08 AM Signed Patient is a former patient of Dr Alcala needs to be treated as a new patient because has not been seen by a provider in our office in 4yrs. Current appointment scheduled with Dr Cornejo needs to be canceled and rescheduled as a new in person visit with testing per our policy. TEAGAN Bonds Jodie C RN 12/11/2023 7:23 AM Signed Addended by: [...] (HCC) [J84.9] Order(s):SPIROMETRY WITH DILATOR IF OBSTRUCTED [9111076] Order #: [id number]: 1 FUTURE LUNG DIFFUSION CAPACITY (DLCO) [[id number]] Order #: [id number]: [address] CHEST WO IVCON [[id number]] Order #: [id number] FUTURE Prescriptions as of 12/11/2023 - levothyroxine [...] Status:Closed by RED ANDERSON on 11/29/23 Normal [facility] XR chest 2V*on 11-21-2023 XR chest 2V* [facility] Main [address] [address] XRay Report Signed Patient: Karuna Reynaga MR#: [id number] : 1945 Acct:[id number] Age/Sex: 78 / F ADM Date: 11/21/23 Loc: XD Room: Type: [facility] Attending Dr: Jamal Alvarez DO Copies [...] PNEUMONIA. Impression dictated by: Frankie Jorge Jr., D.O.11/21/2023 7:04 PM Dictation Location: [place] [address] Transcribed By: [facility] 11/21/231903 Dictated By: Frankie Jorge Jr, DO 11/21/231903 Signed By: 11/21/231903 Normal [facility] DEXA BONE DENSITYon 10-26-20 DEXA BONE DENSITY CLINICAL HISTORY: osteoporosis. COMPARISON: [...] Normal Not Available Free T4 (Free Thyroxine)on 12-17-2022 Free T4 [Mass/Vol] 0.74 ng/dL Normal 0.61-1.12 [facility] Comment on above: Performed By: #### T 3F, T4F, TSH3 #### [facility] [address] [place] [address] [place] Thyroid Stimulating Hormoneo n 10-16-2023 TSH Qn 0.51 m[IU]/L Normal 0.45-5.[address] [facility] Comment on above: Result Comment: PERF ORMED BY: [place] [address] PATHOLOGIST DRUM PULLER EDMOND NORTH M.D. Performed By: #### T 3F, T4F, TSH3 #### [place] [address] [place] Thyrotropin [Units/volume] i n Serum or PlasmaOrdered By: Valdez Castro on 10-16-2023 TSH Qn 0.51 m[IU]/L 0.45-5.33 [facility] Thyroxine (T4) free [Mass/vo lume] in Serum or PlasmaOrdered By: Valdez Castro on 10-16-2023 Free T4 [Mass/Vol] 0.74 ng/dL 0.61-1.12 [facility] Triiodothyronine (T3) Freeon 10-16-2023 Triiodothyronine (T3) Free 3.08 pg/mL Normal 2.50-3.90 [facility] Comment on above: Result Comment: PERF ORMED BY: [place] [address] PATHOLOGIST DRUM PULLER EDMOND NORTH M.D. Performed By: #### T 3F, T4F, TSH3 #### [place] [id number] [facility] Triiodothyronine (T3) Free [ Mass/volume] in Serum or PlasmaOrdered By: Valdez Castro on 10-16-2023 Free T3 [Mass/Vol] 3.08 pg/mL 2.50-3.90 [facility] Free T4 (Free Thyroxine)on 0 07-16-2023 Free T4 [Mass/Vol] 0.75 ng/dL Normal 0.61-1.12 [facility] Comment on above: Performed By: #### T 3F, T4F, TSH3 #### [facility] [address] Thyroid Stimulating Hormoneo n 07-16-2023 TSH Qn 0.07 m[IU]/L Low 0.45-5.[address] [facility] Comment on above: Result Comment: PERF ORMED BY: [place] [address] PATHOLOGIST DRUM PULLER EDMOND NORTH M.D. Performed By: #### T 3F, T4F, TSH3 #### [address] Triiodothyronine (T3) Freeon 07-16-2023 Triiodothyronine (T3) Free 2.81 pg/mL Normal 2.50-3.90 [facility] Comment on above: Result Comment: PERF ORMED BY: [place] [address] PATHOLOGIST DRUM PULLER EDMOND NORTH M.D. Performed By: #### T 3F, T4F, TSH3 #### [address] Basophils Auto (Bld) [#/Vol] Ordered By: Hermes Kennedy on 12-26-2022 Basophils (Bld) [#/Vol] 0.0 10*3/uL 0.0-0.2 [facility] Basophils/100 WBC Auto (Bld) Ordered By: Hermes Kennedy on 12-26-2022 Basophils/100 WBC (Bld) 0.5 % . [facility] Creatinine and Glomerular fi ltration rate.predicted panel (S/P/Bld)Ordered By: Hermes Kennedy on 12-26-2022 Creatinine [Mass/Vol] 0.61 mg/dL 0.44-1.03 [facility] Eosinophils Auto (Bld) [#/Vo l]Ordered By: Hermes Kennedy on 12-26-2022 Eosinophils (Bld) [#/Vol] 0.1 10*3/uL 0.0-0.45 [facility] Eosinophils/100 WBC Auto (Bl d)Ordered By: Hermes Kennedy on 12-26-2022 Eosinophils/100 WBC (Bld) 2.3 % . [facility] Erythrocyte distribution wid th Auto (RBC) [Ratio]Ordered By: Hermes Kennedy on 12-26-2022 Erythrocyte distribution width (RBC) [Ratio] 13.2 % 11.9-15.3 [facility] Estimated glomerular filtrat ion rate (GFR) non- AmericanOrdered By: Hermes Kennedy on 12-26-2022 GFR/1.73 sq M.predicted among non-blacks MDRD (S/P/Bld) [Vol rate/Area] > 60 mL/Min [facility] Hematocrit Auto (Bld) [Volum e fraction]Ordered By: Hermes Kennedy on 12-26-2022 Hematocrit (Bld) [Volume fraction] 38.3 % 34.0-46.4 [facility] Hemoglobin [Mass/volume] in BloodOrdered By: Hermes Kennedy on 12-26-2022 Hemoglobin (Bld) [Mass/Vol] 12.4 g/dL 11.8-15.4 [facility] Leukocytes [#/volume] correc rob for nucleated erythrocytes in Blood by Automated counOrdered By: Hermes Kennedy on 12-26-2022 WBC corrected for nucl RBC Auto (Bld) [#/Vol] 6.4 10*3/uL 3.8-11.6 [facility] Lymphocytes Auto (Bld) [#/Vo l]Ordered By: Hermes Kennedy on 12-26-2022 Lymphocytes (Bld) [#/Vol] 2.2 10*3/uL 1.00-4.8 [facility] Lymphocytes/100 WBC Auto (Bl d)Ordered By: Hermes Kennedy on 12-26-2022 Lymphocytes/100 WBC (Bld) 34.9 % . [facility] MCH Auto (RBC) [Entitic mass ]Ordered By: Hermes Kennedy on 12-26-2022 MCH (RBC) [Entitic mass] 29.5 pg 24.7-34.3 [facility] MCHC Auto (RBC) [Mass/Vol]Or dered By: Hermes Kennedy on 12-26-2022 MCHC (RBC) [Mass/Vol] 32.3 g/dL 32.0-35.0 [facility] MCV Auto (RBC) [Entitic vol] Ordered By: Hermes Kennedy on 12-26-2022 MCV (RBC) [Entitic vol] 91.2 fL 80-100 [facility] Monocytes Auto (Bld) [#/Vol] Ordered By: Hermes Kennedy on 12-26-2022 Monocytes (Bld) [#/Vol] 0.5 10*3/uL 0.0-0.8 [facility] Monocytes/100 WBC Auto (Bld) Ordered By: Hermes Kennedy on 12-26-2022 Monocytes/100 WBC (Bld) 8.3 % . [facility] Neutrophils Auto (Bld) [#/Vo l]Ordered By: Hermes Kennedy on 12-26-2022 Neutrophils (Bld) [#/Vol] 3.5 10*3/uL 1.8-7.7 [facility] Neutrophils/100 WBC Auto (Bl d)Ordered By: Hermes Kennedy on 12-26-2022 Neutrophils/100 WBC (Bld) 54.0 % . [facility] No Panel InformationOrdered By: Hermes Kenndey on 12-26-2022 Estimated GFR () > 60 mL/Min [facility] Comment on above: GFR estimated refere nce range: According to KDOQI guidelines, <60 ml/min/1.73m2 is sufficient to diagnose a patient with chronic kidney disease. Pharmacy Creatinine Clearance (Chem N/A [facility] Nucleated erythrocytes [Pres ence] in Blood by Automated countOrdered By: Hermes Kennedy on 12-26-2022 Nucleated RBC Auto Ql (Bld) 0.2 /100{WBC} 0-0.5 [facility] Platelet mean volume Auto (B ld) [Entitic vol]Ordered By: Hermes Kennedy on 12-26-2022 Platelet mean volume (Bld) [Entitic vol] 8.5 fL 6.3-10.7 [facility] Platelets Auto (Bld) [#/Vol] Ordered By: Hermes Kennedy on 12-26-2022 Platelets (Bld) [#/Vol] 218 10*3/uL 150-450 [facility] RBC Auto (Bld) [#/Vol]Ordere d By: Hermes Kennedy on 12-26-2022 RBC (Bld) [#/Vol] 4.20 10*6/uL 3.60-5.00 [facility] Serum or plasma anion gap de terminationOrdered By: Hermes Kennedy on 12-26-2022 Anion gap [Moles/Vol] 10.0 mmol/L 6.0-15.0 [facility] Serum or plasma calcium marce urement (mass/volume)Ordered By: Hermes Kennedy on 12-26-2022 Calcium [Mass/Vol] 9.1 mg/dL 8.2-10.2 [facility] Serum or plasma chloride william surement (moles/volume)Ordered By: Hermes Kennedy on 12-26-2022 Chloride [Moles/Vol] 104 mmol/L 95-114 [facility] Serum or plasma glucose marce urement (mass/volume)Ordered By: Hermes Kennedy on 12-26-2022 Glucose [Mass/Vol] 80 mg/dL 70-100 [facility] Comment on above: ADA recommended refe rence rangeRandom Glucose Reference Range is dependent on time and content of last meal. Glucose of more than 200 mg/dL in a nonstressed, ambulatory subject supports the diagnosis of Diabetes Mellitus. Serum or plasma potassium me asurement (moles/volume)Ordered By: Hermes Kennedy on 12-26-2022 Potassium [Moles/Vol] 4.3 mmol/L 3.5-5.1 [facility] Serum or plasma sodium measu rement (moles/volume)Ordered By: Hermes Kennedy on 12-26-2022 Sodium [Moles/Vol] 139 mmol/L 136-146 [facility] Serum or plasma total carbon dioxide measurement (moles/volume)Ordered By: Hermes Kennedy on 12-26-2022 CO2 [Moles/Vol] 29.3 mmol/L 22.0-30.0 [facility] Serum or plasma urea nitroge n measurement (mass/volume)Ordered By: Hermes Kennedy on 12-26-2022 Urea nitrogen [Mass/Vol] 21 mg/dL 9-23 [facility] WBC Auto (Bld) [#/Vol]Ordere d By: Hermes Dennyi on 12-26-2022 WBC (Bld) [#/Vol] 6.4 10*3/uL 3.8-11.6 [facility] CULTURE URINEon 04-05-2022 CULTURE URINE Culture Observations: NO GROWTH. Normal [facility] Comment on above: Performed By: #### U RCX #### [facility] [address] [place] [address] [address] Mojgan Daily UA RANDOM W/MICROSCOPICon BACTERIA NONE SEEN Normal NONE SEEN [facility] Comment on above: Performed By: #### U AMIC #### [facility] [address] [place] [address] Dr. Mojgan Daily Bilirubin Ql (U) Negative Normal NEGATIVE [facility] Comment on above: Performed By: #### U AMIC #### [facility] [address] [place] [address] Dr. Mojgan Daily CA OX CRYSTALS FEW Normal [facility] Comment on above: Performed By: #### U AMIC #### [facility] [address] [place] [address] Dr. Mojgan Daily CAST NONE SEEN Normal NONE SEEN [facility] Comment on above: Performed By: #### U AMIC #### [facility] [address] [place] [address] Dr. Mojgan Daily Clarity (U) CLEAR Normal CLEAR [facility] Comment on above: Performed By: #### U AMIC #### [facility] [address] [place] [address] [address] Mojgan Daily Color (U) LT. YELLOW Normal YELLOW [facility] Comment on above: Performed By: #### U AMIC #### [facility] [address] [place] [address] Dr. Mojgan Daily Crystals LM Nom (Urine sed) SEEN Abnormal NONE SEEN [facility] Comment on above: Performed By: #### U AMIC #### [facility] [address] [place] [address] Dr. Mojgan Daily Epithelial cells LM Ql (Urine sed) NONE SEEN Normal NONE SEEN /RARE [facility] Comment on above: Performed By: #### U AMIC #### [facility] [address] [place] [address] [address] Mojgan Daily Glucose Ql (U) Negative Normal NEGATIVE [facility] Comment on above: Performed By: #### U AMIC #### [facility] [address] [place] [address] [address] Mojgan Daily Hemoglobin Ql (U) Negative Normal NEGATIVE [facility] Comment on above: Performed By: #### U AMIC #### [facility] [address] [place] [address] [address] Mojgan Daily Ketones Ql (U) Negative Normal NEGATIVE [facility] Comment on above: Performed By: #### U AMIC #### [facility] [address] [place] [address] [address] Mojgan Daily LEUKOCYTES SMALL Abnormal NEGATIVE [facility] Comment on above: Performed By: #### U AMIC #### [facility] [address] [place] [address] [address] Mojgan Daily MUCOUS NONE SEEN Normal NONE SEEN [facility] Comment on above: Performed By: #### U AMIC #### [facility] [address] [place] [address] [address] Mojgan Daily Nitrite Ql (U) Negative Normal NEGATIVE [facility] Comment on above: Performed By: #### U AMIC #### [facility] [address] [place] [address] [address] Mojgan Daily pH (U) 5.0 [pH] Normal 5-9 [facility] Comment on above: Performed By: #### U AMIC #### [facility] [address] [place] [address] [address] Mojgan Daily RBC NONE SEEN Abnormal 0-2 [facility] Comment on above: Performed By: #### U AMIC #### [facility] [address] [place] [address] [address] Mojgan Daily SPEC GRAVITY 1.025 Normal 1.005-<=1.025 [facility] Comment on above: Performed By: #### U AMIC #### [facility] [address] [place] [address] [address] Mojgan Daily UA PROTEIN Negative Normal NEGATIVE/ TRACE [facility] Comment on above: Performed By: #### U AMIC #### [facility] [address] [place] [address] [address] Mojgan Daily URIC ACID CRYSTALS RARE Normal [facility] Comment on above: Performed By: #### U AMIC #### [facility] [address] [place] [address] [address] Mojgan Daily Urobilinogen Qn (U) 0.2 {Amanuel'U}/dL Normal 0.2 - 1. 0 [facility] Comment on above: Performed By: #### U AMIC #### [facility] [address] [place] [address] [address] Mojgan Daily WBC 2-5 Abnormal NONE SEEN [facility] Comment on above: Performed By: #### U AMIC #### [facility] [address] [place] [address] [address] Mojgan Daily MG MAMM SCREEN 3D RUPAL CADon 03-27-2022 MG MAMM SCREEN 3D RUPAL CAD Patient: KARUNA REYNAGA Exam Date: 03/27/2022 : 1945 Gender:F Ordering : DR JAMAL ALVAREZ Admission #: [id number] Family : Order #: [id number] CLICK HERE TO VIEW EXAM RADIOLOGY REPORT [...] Treatments None Family Cancers None LOCATION: [facility] BREAST COMPOSITION: Almost entirely fatty. FINDINGS: DIAGNOSTIC [...] LUMP SHOULD BE BIOPSIED. Dictated by: Jeaneth Echols MD on 03/27/2022 at 14:09 Approved by: Jeaneth Echols MD on 03/27/2022 at 14:10 Normal [facility] Comprehensive metabolic 2000 panelon 02-03-2022 Albumin [Mass/Vol] 4.0 g/dL 3.9 - 4.9 g/dL [facility] ALP [Catalytic activity/Vol] 55 U/L 34 - 123 U/L [facility] ALT [Catalytic activity/Vol] 16 U/L 7 - 38 U/L [facility] Anion gap [Moles/Vol] 10 mmol/L 9 - 18 mmol/L [facility] AST [Catalytic activity/Vol] 16 U/L 13 - 35 U/L [facility] Bilirubin [Mass/Vol] 0.3 mg/dL 0.2 - 1 .3 mg/dL [facility] Calcium [Mass/Vol] 9.4 mg/dL 8.5 - 10. 2 mg/dL [facility] Chloride [Moles/Vol] 107 mmol/L High 97 - 10 5 mmol/L [facility] CO2 [Moles/Vol] 28 mmol/L 22 - 30 mmol/L [facility] Creatinine [Mass/Vol] 0.81 mg/dL 0.58 - 0.96 mg/dL [facility] Estimated Glomerular Filtration Rate 75 mL/min/1.73m >=60 mL/min/1.73m [facility] Glucose [Mass/Vol] 102 mg/dL High 74 - 99 mg/dL [facility] Potassium [Moles/Vol] 4.5 mmol/L 3.7 - 5.1 mmol/L [facility] Protein [Mass/Vol] 6.7 g/dL 6.3 - 8.0 g/dL [facility] Sodium [Moles/Vol] 145 mmol/L High 136 - 144 mmol/L [facility] Urea nitrogen [Mass/Vol] 22 mg/dL High 7 - 21 mg/d L [facility] Office Visit (Cardiology)on 10-21-2021 Follow-up visit Diagnoses/Problems Assessed Pre-operative cardiovascular examination (V72.81) (Z01.810) Sinus bradycardia (427.89) (R00.1) Class 1 obesity with body mass index (BMI) of 30.0 to 30.9 in adult (278.00,V85.30) (E66.9,Z68.30) Former smoker (V15.82) (Z87.891) Quit 1980 Orders Class 1 obesity with body mass index (BMI) of 30.0 to 30.9 in adult Healthy Weight Tips; Status:Complete - Retrospective Authorization; Done: [id number] Pre-operative cardiovascular examination IO EKG Electrocardiogram- 12 Lead; Status:Complete; Done: [id number] SocHx: Former smoker Tobacco Use Screening; Status:Complete; Done: [id number] Patient Instructions Follow up as needed only [...] negative for complaint. Vitals Vital Signs Recorded: [id number] 11:08AMRecorded: 16Nle0490 11:07AM [id number], LUE, Wuhoigo616, LUE, Sitting Cekrgupek81, LUE, Afpbbxk80, LUE, Sitting Heart Rate58, Apical Height4 ft 10 in [id number] lb BMI (more content not included)... Normal [employer] Tobacco Screening.on 021 Fall risk assessment a) No falls within the last year [facility] [address] DO Work Phone: Tobacco use status [facility]PH[facility] b) No M [facility] DO Work Phone: XR Chest [...] by Kole Nino on 10/13/2021 1530 Normal [facility] [place] [facility] Vital Signs Date Time Vital Sign Value Performing Clinician Facility 02-21-2024 10:45-0400 Body height 142.24 cm DO Jamal Alvarez Work Phone: [facility] 02-21-2024 10:45-0400 Body mass index (BMI) [Ratio] 33.8 kg/m2 DO Jamal Alvarez Work Phone: [facility] 02-21-2024 10:45-0400 Body weight 68.49 kg DO Jamal Alvarez Work Phone: [facility] 02-21-2024 10:45-0400 Diastolic blood pressure 79 mm[Hg] DO Jamal Alvarez Work Phone: [facility] 02-21-2024 10:45-0400 Heart rate 65 /min DO Jamal Alvarez Work Phone: [facility] 02-21-2024 10:45-0400 Systolic blood pressure 131 mm[Hg] DO Jamal Alvarez Work Phone: [facility] 02-13-2024 18:46-0400 Body height 142.24 cm DO Jamal Alvarez Work Phone: [facility] 02-13-2024 18:46-0400 Body mass index (BMI) [Ratio] 33.9 kg/m2 DO Jamal Alvarez Work Phone: [facility] 02-13-2024 18:46-0400 Body temperature 97.1 [degF] DO Jamal Alvarez Work Phone: [facility] 02-13-2024 18:46-0400 Body weight 68.6 kg DO Jamal Alvarez Work Phone: [facility] 02-13-2024 18:46-0400 Diastolic blood pressure 80 mm[Hg] DO Jamal Alvarez Work Phone: [facility] 02-13-2024 18:46-0400 Heart rate 74 /min DO Jamal Alvarez Work Phone: [facility] 02-13-2024 18:46-0400 Respiratory rate 18 /min DO Jamal Alvarez Work Phone: [facility] 02-13-2024 18:46-0400 SaO2% (BldA) [Mass fraction] 94 % DO Jamal Alvarez Work Phone: [facility] 02-13-2024 18:46-0400 Systolic blood pressure 110 mm[Hg] DO Jamal Alvarez Work Phone: [facility] 12-28-2023 13:29-0500 Body temperature 97.59 [degF] Ubaldo Dubose MD Work Phone: [facility] 12-28-2023 13:29-0500 Body weight 79.38 kg Ubaldo Dubose MD Work Phone: [facility] 12-28-2023 13:29-0500 Diastolic blood pressure 65 mm[Hg] Ubaldo Dubose MD Work Phone: [facility] 12-28-2023 13:29-0500 Heart rate 67 /min Ubaldo Dubose MD Work Phone: [facility] 12-28-2023 13:29-0500 Respiratory rate 16 /min Ubaldo Dubose MD Work Phone: [facility] 12-28-2023 13:29-0500 SaO2% (BldA) [Mass fraction] 97 % Ubaldo Dubose MD Work Phone: [facility] 12-28-2023 13:29-0500 Systolic blood pressure 137 mm[Hg] Ubaldo Dubose MD Work Phone: [facility] 10-21-2021 11:08-0500 Diastolic blood pressure 70 mm[Hg] Jamal Alvarez Work Phone: [facility] 250 DO Work Phone: 10-21-2021 11:08-0500 Systolic blood pressure 132 mm[Hg] Jamal Alvarez Work Phone: [facility] [address] DO Work Phone: 10-21-2021 11:07-0500 Body height 147.32 cm Jamal Alvarez Work Phone: [facility] 250 DO Work Phone: 10-21-2021 11:07-0500 Body mass index (BMI) [Ratio] 30.31 kg/m2 Jamal Alvarez Work Phone: [facility] 250 DO Work Phone: 10-21-2021 11:07-0500 Body surface area Derived from formula 1.59 m2 Jamal Alvarez Work Phone: [facility] DO Work Phone: 10-21-2021 11:07-0500 Body weight 65.77 kg Jamal Alvarez Work Phone: [facility] 250 DO Work Phone: 10-21-2021 11:07-0500 Diastolic blood pressure 70 mm[Hg] Jamal Alvarez Work Phone: [facility] DO Work Phone: 10-21-2021 11:07-0500 Heart rate 58 /min Jamal Alvarez Work Phone: [facility] DO Work Phone: 10-21-2021 11:07-0500 Systolic blood pressure 132 mm[Hg] Jamal Alvarez Work Phone: [facility] DO Work Phone: Encounters Encounter Date Encounter Type Care Provider Facility Start: 03-03-2024 End: 03-03-2024 ambulatory Ubaldo Dubose Facility:[facility] Start: 03-03-2024 End: 03-03-2024 ambulatory [facility]ose [facility] Comment on above: Bronchiectasis witho ut complication (HCC) (Primary Dx); Aspiration pneumonitis (HCC); Traumatic brain injury with loss of consciousness, sequela (HCC) Start: 03-03-2024 End: 03-03-2024 Telemedicine consultation with patient Ubaldo Dubose MD [facility] Start: 02-26-2024 Telephone encounter Ubaldo dawn MD Work Phone: [facility] Comment on above: Appointment Received [facility] Start: 02-25-2024 End: 02-25-2024 ambulatory Jose Luis Lockhart Facility:[facility] Start: 02-25-2024 End: 02-25-2024 Patient encounter procedure DO Jamal Alvarez Work Phone: [facility] [place] Work Phone: Start: 02-25-2024 End: 02-25-2024 ambulatory DO Jamal Antonio Work Phone: [facility] Work Phone: Start: 02-22-2024 End: 02-23-2024 ambulatory ALICE Mckinley RUMADILIABRIGHT Not Available Start: 02-22-2024 End: 02-22-2024 ambulatory JAMAL ALVAREZ Not Available Start: 02-22-2024 Chart abstracting Yuridia Bourgeois [facility] Comment on above: Home nebulizer order Start: 02-21-2024 Registered Recurring DO Shelby Alvarez Work Phone: [facility] Start: 02-21-2024 End: 02-21-2024 ambulatory DO Jamal Antonio Work Phone: [facility] Work Phone: Start: 02-21-2024 End: 02-21-2024 Patient encounter procedure DO Jamal Mylesman Work Phone: [facility] Work Phone: Start: 02-19-2024 Registered Recurring DO Shelby Mylesman Work Phone: [place] [facility] Start: 02-15-2024 Orders Only Ubaldo Peres rn, MD Work Phone: Pulmonary Medicine Comment on above: Bronchiectasis witho ut complication (HCC) (Primary Dx) Start: 02-13-2024 End: 02-13-2024 ambulatory Nallely Pearce Facility:[facility] Start: 02-13-2024 End: 02-13-2024 ambulatory DO Jamal Alvarez Work Phone: [facility] Work Phone: Start: 02-13-2024 End: 02-13-2024 Patient encounter procedure DO Jamal Alvarez Work Phone: [facility] Work Phone: Start: 02-13-2024 End: 02-13-2024 ambulatory IRVING DUVALL Not Available Start: 02-12-2024 Registered Recurring DO Shelby Mylesman Work Phone: [facility] Start: 01-23-2024 End: 01-23-2024 ambulatory Jamal Alvarez Facility:[facility] Start: 01-23-2024 End: 01-23-2024 ambulatory DO Jamal Alvarez Work Phone: [facility] Work Phone: Start: 01-23-2024 End: 01-23-2024 Patient encounter procedure DO Jamal Alvarez Work Phone: [facility] Work Phone: Start: 01-22-2024 Telephone encounter Ubaldo dawn MD Work Phone: Pulmonary Medicine Comment on above: Received Outside Med ical Records Start: 01-14-2024 Registered Recurring DO Shelby baker Antonio Work Phone: [facility] Start: 12-28-2023 End: 12-28-2023 ambulatory Ubaldo Dubose Facility:[facility] Start: 12-28-2023 End: 12-28-2023 Patient encounter procedure Ubaldo Dubose MD Work Phone: Pulmonary Medicine Comment on above: Bronchiectasis witho ut complication (HCC) (Primary Dx); Aspiration pneumonitis (HCC); Traumatic brain injury with loss of consciousness, sequela (HCC) Start: 12-27-2023 End: 12-27-2023 ambulatory DEE LEAL Facility:[facility] Start: 12-25-2023 End: 12-25-2023 ambulatory DEE GLEMARIANN Pulmonary Lab Comment on above: Spirometry Start: 12-25-2023 End: 12-25-2023 Patient encounter procedure Pulm Lab Nikhil Work Phone: [facility] Start: 12-05-2023 End: 12-05-2023 ambulatory JAMAL Campbell ANTONIO Not Available Start: 11-21-2023 End: 11-21-2023 ambulatory Jamal Antonio Facility:[facility] Start: 11-21-2023 End: 11-21-2023 ambulatory DO Jamaltaya Alvarez Work Phone: [facility] Work Phone: Start: 11-21-2023 End: 11-21-2023 Patient encounter procedure DO Jamal Alvarez Work Phone: [facility] Work Phone: Start: 10-26-2023 End: 10-27-2023 ambulatory JAMAL ALVAREZ Not Available Start: 10-16-2023 End: 10-17-2023 ambulatory JESUS Noam ROBERSON Not Available Start: 10-16-2023 End: 10-16-2023 ambulatory Jamal Alvarez Facility:[facility] Start: 10-16-2023 End: 10-16-2023 ambulatory DO Jamal Alvarez Work Phone: [facility] Work Phone: Start: 10-16-2023 End: 10-16-2023 Patient encounter procedure DO Jamal Alvarez Work Phone: [facility] [place] Work Phone: Start: 07-16-2023 End: 07-16-2023 ambulatory Jamal Alvarez Facility:[facility] Start: 02-10-2023 End: 02-10-2023 ambulatory BRUCE GIRON . Facility:[facility] Start: 12-26-2022 End: 12-26-2022 ambulatory DO Jamaltaya Alvarez Work Phone: [facility] Work Phone: Start: 12-26-2022 End: 12-26-2022 Patient encounter procedure DO Jamaltaya Alvarez Work Phone: [facility] Work Phone: Start: 07-26-2022 Orders Only Everton Aranab cortney Work Phone: Hematology/Oncology Comment on above: Dermatophytosis of n ail (Primary Dx); Well controlled type 2 diabetes mellitus with neurological manifestations (HCC); Unspecified hypothyroidism Dermatophytosis of n ail (Primary Dx) Start: 04-05-2022 End: 04-05-[address] JAMAL ALVAREZ Facility:[facility] Start: 03-27-2022 End: 03-28-[address] JAMAL ALVAREZ Facility:[facility] Start: 02-03-2022 Orders Only Joanne Bullard RN Nick tology/Oncology Comment on above: Hypothyroidism, adul t (Primary Dx); 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); Mixed hyperlipidemia Start: 10-21-2021 Office consultation new/estab patient 60 min Jamal [facility]varez [facility] Work Phone: Start: 10-21-2021 Office outpatient ne w 45 minutes Jamal Alvarez [facility] Work Phone: Patient encounter status Jamal Alvarez Work Phone: [facility] Work Phone: Procedures Date Procedure Procedure Detail Performing Clinician Start: 02-25-2024 CT angiography of thorax DO Jamal Alvarez Work Phone: Start: 02-13-2024 Plain chest X-ray DO Noe Alvarez Work Phone: Start: 12-25-2023 Brncdilat rspse spmt ry pre&post-brncdilat admn Red Anderson RN Start: 11-21-2023 Plain chest X-ray DO Noe Alvarez Work Phone: Implantation of sacr al nerve stimulator Jamal Alvarez Work Phone: Total colonoscopy Jamal Alvarez Work Phone: Comment on above: 01/30/2007; Plan of Treatment Date Care Activity Detail Author Start: 02-19-2027 Diabetes Screening Diabetes Screengonzález brown [facility] Start: 07-28-2025 Diabetes Screening Diabetes Screengonzález g [facility] Start: 02-03-2025 DIABETES SCREEN DIABETES SCREEN [facility] Start: 05-05-2024 End: 05-05-2024 Patient encounter procedure 05/05/2024 3:30 PM EDT Office Visit Pulmonology [facility] [address] [place] [address] Ubaldo Dubose MD [address] [place] [address] Est pt scheduled per Dr. Dubose 4mo fu pft's Pulmonology [facility] Comment on above: Est pt scheduled per Dr. Dubose 4mo fu pft's Start: 04-30-2024 End: 04-30-2024 ambulatory Pulmonary Lab Comment on above: Est pt scheduled per Dr. Dubose 4mo fu pft's Start: 03-03-2024 End: 03-03-2024 Follow-up encounter 03/03/2024 12:30 PM EDT [facility] Pulmonology [facility] [address] [place] [address] Ubaldo Dubose MD [address] [place] [address] follow up Pulmonology [facility] Comment on above: follow up Start: 11-05-2023 Advance Directive Discussion Advance Directive Discussion [facility] Start: 11-05-2023 Behavioral Health Screening Behavioral Health Screening [facility] Start: 11-05-2023 Depression Assessment Depression Ass essment [facility] Start: 07-06-2023 Covid-19 Vaccine () Covid-19 Vaccine () [facility] Start: 07-26-2022 End: 09-25-2022 CBC W Auto Differential panel - Blood CBC + DIFF Lab Routine Well controlled type 2 diabetes mellitus with neurological manifestations (HCC) Unspecified hypothyroidism Expected: 07/26/2022, Expires: 09/25/2022 [facility] Work Phone: Comment on above: Expected: 07/26/2022 , Expires: 09/25/2022 Start: 07-26-2022 End: 09-25-2022 Comprehensive metabolic 2000 panel - Serum or Plasma COMP METABOLIC PANEL Lab Routine Well controlled type 2 diabetes mellitus with neurological manifestations (HCC) Unspecified hypothyroidism Expected: 07/26/2022, Expires: 09/25/2022 [facility] Work Phone: Comment on above: Expected: 07/26/2022 , Expires: 09/25/2022 Start: 07-26-2022 End: 09-25-2022 Hepatic function 2000 panel - Serum or Plasma HEPATIC FUNCTION PNL Lab Routine Dermatophytosis of nail Expected: 07/26/2022, Expires: 09/25/2022 [facility] Work Phone: Comment on above: Expected: 07/26/2022 , Expires: 09/25/2022 Start: 07-26-2022 End: 09-25-2022 Lipid 1996 panel - Serum or Plasma LIPID PANEL BASIC Lab Routine Well controlled type 2 diabetes mellitus with neurological manifestations (HCC) Unspecified hypothyroidism Expected: 07/26/2022, Expires: 09/25/2022 [facility] Work Phone: Comment on above: Expected: 07/26/2022 , Expires: 09/25/2022 Start: 07-26-2022 End: 09-25-2022 Thyrotropin [Units/volume] in Serum or Plasma TSH BLD Lab Routine Well controlled type 2 diabetes mellitus with neurological manifestations (HCC) Unspecified hypothyroidism Expected: 07/26/2022, Expires: 09/25/2022 [facility] Work Phone: Comment on above: Expected: 07/26/2022 , Expires: 09/25/2022 Start: 07-06-2022 Influenza vaccination INFLUENZA (#1) [facility] Start: 02-03-2022 End: 04-05-2022 ALBUMIN/CREAT RATIO RND UR [facility] Work Phone: Comment on above: Expected: 02/03/2022 , Expires: 04/05/2022 Start: 02-03-2022 End: 04-05-2022 LIPID PANEL BASIC [facility] Work Phone: Comment on above: Expected: 02/03/2022 , Expires: 04/05/2022 Start: 02-03-2022 End: 04-05-2022 Thyrotropin [Units/volume] in Serum or Plasma [facility] Work Phone: Comment on above: Expected: 02/03/2022 , Expires: 04/05/2022 Start: 02-03-2022 End: 04-05-2022 Urinalysis complete panel - Urine [facility] Work Phone: Comment on above: Expected: 02/03/2022 , Expires: 04/05/2022 Start: 11-05-2021 ADVANCE DIRECTIVE DISCUSSION ADVANCE DIRECTIVE DISCUSSION [facility] Start: 11-05-2021 COVID-19 VACCINE (4 - Booster for Moderna series) COVID-19 VACCINE (4 - Booster for Moderna series) [facility] Start: 08-04-2021 Pneumococcal Vaccine : 65+ (2 of 2 - PCV) Pneumococcal Vaccine: 65+ (2 of 2 - PCV) [facility] Start: 2011 BONE DENSITY BONE DENSITY [facility] Start: 2011 PNEUMOCOCCAL: 65+ (1 - PCV) PNEUMOCOCCAL: 65+ (1 - PCV) [facility] Start: 2011 PNEUMOVAX AGE 65 AND OVER WITH 5YR LOOKBACK (#1) PNEUMOVAX AGE 65 AND OVER WITH 5YR LOOKBACK (#1) [facility] Start: 2006 RSV Vaccine (1 - 1-d ose 60+ series) RSV Vaccine (1 - 1-dose 60+ series) [facility] Start: 1996 SHINGRIX VACCINE (1 of 2) SHINGRIX VACCINE (1 of 2) [facility] Start: 1965 Urine microalbumin profile [facility] Start: 1964 HEPATITIS C SCREENING HEPATITIS C [facility] Start: 1964 Hepatitis C screening Hepatitis C [facility] Start: 1958 Adult depression screening assessment DEPRESSION SCREENING [facility] End: 01-26-2025 LUNG DIFFUSION CAPACITY (DLCO) LUNG DIFFUSION CAPACITY (DLCO) PFT Routine Bronchiectasis without complication (HCC) 1 Occurrences starting 12/28/2023 until 01/26/2025 [facility] Work Phone: Comment on above: 1 Occurrences starti ng 12/28/2023 until 01/26/2025 End: 01-26-2025 SPIROMETRY BASELINE ONLY SPIROMETRY BASELINE ONLY PFT Routine Bronchiectasis without complication (HCC) 1 Occurrences starting 12/28/2023 until 01/26/2025 [facility] Work Phone: Comment on above: 1 Occurrences starti ng 12/28/2023 until 01/26/2025 URINE MICROALBUMIN B/O URINE ABAD ROALBUMIN B/O Lab Routine Hypothyroidism, adult 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) Mixed hyperlipidemia Ordered: 02/03/2022 [facility] Work Phone: Comment on above: Ordered: 02/03/2022 [facility]R [facility] Immunizations Immunization Date Immunization Notes Care Provider [facility] 08-23-2023 influenza (aIIV4) vaccine, age 65+ yr, quadrivalent, PF (FLUAD QUAD) Ubaldo Dubose MD Work Phone: [facility] 11-10-2022 COVID-19 mRNA Bivale nt Booster (Moderna) DO Jamal Alvarez Work Phone: [facility] 08-17-2022 influenza, high dose seasonal, preservative-free Ubaldo Dubose MD Work Phone: [facility] 05-30-2022 zoster vaccine recombinant Ubaldo Dubose MD Work Phone: [facility] 02-28-2022 zoster vaccine recombinant Ubaldo Dubose MD Work Phone: [facility] 08-16-2021 influenza, high dose seasonal, preservative-free Jamal Alvarez Work Phone: [facility] 07-06-2021 Moderna COVID-19 Vac cine 100 MCG/0.5ML Intramuscular Suspension Jamal Alvarez Work Phone: [facility] 02-03-2021 Moderna COVID-19 Vac cine 100 MCG/0.5ML Intramuscular Suspension Jamal Alvarez Work Phone: [facility] 01-06-2021 Moderna COVID-19 Vac cine 100 MCG/0.5ML Intramuscular Suspension Jamal Alvarez Work Phone: [facility] 08-04-2020 pneumococcal polysaccharide vaccine, 23 valent Jamal Alvarez Work Phone: [facility] 07-15-2020 AS03 adjuvant Ubaldo Dubose MD Work Phone: [facility] 07-15-2020 Seasonal trivalent influenza vaccine, adjuvanted, preservative free Jamal Alvarez Work Phone: [facility] 09-10-2019 AS03 adjuvant Ubaldo Dubose MD Work Phone: [facility] 09-10-2019 Seasonal trivalent influenza vaccine, adjuvanted, preservative free Jamal Alvarez Work Phone: [facility] 07-25-2018 AS03 adjuvant Ubaldo Dubose MD Work Phone: [facility] 07-25-2018 Seasonal trivalent influenza vaccine, adjuvanted, preservative free Jamal Alvarez Work Phone: [facility] 10-22-2017 influenza, injectabl e, quadrivalent, preservative free Jamal Alvarez Work Phone: [facility] 08-17-2016 influenza, high dose seasonal, preservative-free Jamal Alvarez Work Phone: [facility] Payers Date Payer Category Payer Medicare AETNA MEDICARE A ETNA MEDICARE PPO [id number] 2021-Present [phone] [address] [place] [address] PPO [id number] 2021 Medicare [id number] 1959 Medicare [id number] 1959 Private Health Insurance [id number] 1946 Unknown [id number] 93 1946 Unknown [id number] 93 1946 Unknown [id number] 93 1946 Unknown [id number] 259 1946 Unknown [id number] 259 1946 Unknown [id number] 259 1946 Unknown [id number] 259 1946 Unknown [id number] 259 1946 Unknown [id number] [id number] 259 1946 Unknown [id number] 259 1946 Unknown [id number] 259 Medicaid [id number] Medicare [id number] Medicare Medicare [id number] Private Health Insurance [id number] Private Health Insurance Aetna MCR PFFS M [id number] Self-pay Self Pay [id number] Unknown [id number] Unknown [id number] Unknown AETNA Unknown HCAP/HFA/FAP Active [id number] Social History Date Type Detail Facility Tobacco smoking stat [facility] Unknown if ever smoked [facility] Start: 1945 Sex Assigned At Female F [facility] Start: 06-29-2020 End: 12-28-2023 No caffeine use No caffeine use [facility] [address] DO Work Phone: Comment on above: Quit 1979; Start: 06-29-2020 End: 12-28-2023 Tobacco smoking status NHIS Ex-smoker [facility] End: 11-05-1979 History of tobacco use Current smoker [facility] End: 11-05-1979 History of tobacco use Cigarette Smoker [facility] Start: 06-29-2020 End: 12-28-2023 Alcohol intake Current non-drinker of alcohol (finding) [facility] Start: 1945 Sex Assigned At Not on file [facility] Start: 06-29-2020 End: 12-28-2023 Tobacco use and exposure Smokeless tobacco non-user [facility] Start: 06-29-2020 End: 12-28-2023 Tobacco use panel [facility] National Score (1-100), lower number is lower risk Not on file [facility] Medical Equipment Procedure Code Equipment Code Equipment Origin al Text Equipment Identifier Dates Implantable incontinence-contro l electrical stimulation system [id number] FDA Start: 10-25-2021 [id number] FDA Start: 10-25-2021 USE TO TEST ONCE DAILY EVERY MORNING. [id number] Start: 10-14-2023 Comment on above: USE TO TEST ONCE PIERRE LY EVERY MORNING. Clinical Notes 10-20-2021 to 03-03-2024 Ubaldo Dubose MD - 03/03/2024 12:30 PM EDTTelephone Encounter - Eileen Lucas RN - 02/26/2024 3:57 PM EDTTelephone Encounter - Eileen Lucas RN - 02/26/2024 3:57 PM EDT Note Date & Type Note Facility 03-03-2024 Note HNO ID: [id number] Author: UBALDO DUBOSE MD Service: ? Author Type: Physician Type: Progress Notes Filed: 03/03/2024 13:19 Note Text: VIRTUAL VISIT PROGRESS NOTE This is a virtual visit using [employer] Video Visit. It required patient-provider interaction for the medical decision making as documented below. I have communicated my name and active licensure. The patient's identity and physical location were verified at the time of this visit. Either the patient or their legal health and safety representative has been informed of the risks and benefits of -- and alternatives to -- treatment through a remote evaluation and consents to proceed with the evaluation remotely. Chief complaint: No chief complaint on file. History of Present Illness Initially seen by me in Dec 2023. Initially saw Dr. Alcala in 2019 for [...] PPI and allergy medicine with no improvement. At the first visit in Dec 2023, her PFTs showed evidence of moderate restriction and mild-moderately decreased DLCO. Her CT showed emphysema and bronchiectasis. Provided acapella and recommended vest therapy. Interval History She was unable to use the flutter device. I recommended nebulized hypertonic saline along with her vest therapy. She was in the hospital for pneumonia had a CT done which looked similar to previous except for some volume overload. She also had hyponatremia so it was likely that she was hypervolemic. Since discharge she has been doing much better. She is back to her normal volume status. She just received the hypertonic saline and has started using that. She has been using the vest. Review of Systems All other ROS: negative As noted in [...] (CMS/HCC) No past surgical history on file. Current Outpatient Medications Medication Sig sodium chloride (NEBUSAL) 3 % nebulizer solution Use 2 mL via nebulizer two times a day. Cholecalciferol, Vitamin D3, 50 mcg (2,000 unit) [...] daily. MULTIVITAMIN TAB Take one(1) tablet daily. No current facility-administered medications for this visit. ALLERGIES Allergen Reactions Darvocet A500 [Prop* Rash Latex Rash Midazolam Mental Status Change Opioids - Morphine * Mental Status Change, Unknown Other Reaction(s): unknown Penicillins Rash Propoxyphene Other: See Comments Other Reaction(s): unknown Strawberries Rash Sulfa (Sulfonamide * Rash FAMILY HISTORY Problem Relation Age of Onset Thyroid Daughter hypothyroidism Coronary Artery Disease Brother Stroke Sister Stroke Mother Cancer Sister cervical Social History Tobacco Use Smoking status: Former Packs/day: 1.00 Years: 10.00 Additional pack years: 0.00 Total pack years: 10.00 Types: Cigarettes Quit date: (more content not included)... [facility] 03-03-2024 History of Presen t illness Narrative VIRTUAL VISIT PROGRESS NOTE This is a virtual visit using [employer] Video Visit. It required patient-provider interaction for the medical decision making as documented below. I have communicated my name and active licensure. The patient's identity and physical location were verified at the time of this visit. Either the patient or their legal health and safety representative has been informed of the risks and benefits of -- and alternatives to -- treatment through a remote evaluation and consents to proceed with the evaluation remotely. Chief complaint: No chief complaint on file. History of Present Illness Initially seen by me in Dec 2023. Initially saw Dr. Alcala in 2019 for [...] PPI and allergy medicine with no improvement. At the first visit in Dec 2023, her PFTs showed evidence of moderate restriction and mild-moderately decreased DLCO. Her CT showed emphysema and bronchiectasis. Provided acapella and recommended vest therapy. Interval History She was unable to use the flutter device. I recommended nebulized hypertonic saline along with her vest therapy. She was in the hospital for pneumonia had a CT done which looked similar to previous except for some volume overload. She also had hyponatremia so it was likely that she was hypervolemic. Since discharge she has been doing much better. She is back to her normal volume status. She just received the hypertonic saline and has started using that. She has been using the vest. Review of Systems All other ROS: negative As noted in [...] (CMS/HCC) No past surgical history on file. Current Outpatient Medications Medication Sig sodium chloride (NEBUSAL) 3 % nebulizer solution Use 2 mL via nebulizer two times a day. Cholecalciferol, Vitamin D3, 50 mcg (2,000 unit) [...] daily. MULTIVITAMIN TAB Take one(1) tablet daily. No current facility-administered medications for this visit. ALLERGIES Allergen Reactions Darvocet A500 [Prop* Rash Latex Rash Midazolam Mental Status Change Opioids - Morphine * Mental Status Change, Unknown Other Reaction(s): unknown Penicillins Rash Propoxyphene Other: See Comments Other Reaction(s): unknown Strawberries Rash Sulfa (Sulfonamide * Rash FAMILY HISTORY Problem Relation Age of Onset Thyroid Daughter hypothyroidism Coronary Artery Disease Brother Stroke Sister Stroke Mother Cancer Sister cervical Social History Tobacco Use Smoking status: Former Packs/day: 1.00 Years: 10.00 Additional pack years: 0.00 Total pack years: 10.00 Types: Cigarettes Quit date: 11/05/1979 Years since quittin.3 Smokeless tobacco: Never Vaping Use Vaping Use: Never used Substance Use Topics Alcohol use: No Drug use: No Physical Exam General: Well developed, well nourished in no apparent distress. Speaking in full sentences No coughing during interview Facial skin and mucous membranes with normal coloring. Diagnostic Data Imaging and PFT results were reviewed and the results were confirmed by me Date FEV1/FVC FEV1 (L,%) FVC (L,%) DLCO, % TLC (L,%) Other 06/29/20 89 1.24/73.1 1.39/64.2 8.56/48.5 Poor technique 12/25/23 89 1.05/69 1.19/61 9.76/[address] Chest 02/25/24 Diffuse ground glass interstitial prominence. Bibasilar atelectasis/scarring. Impression/Recommendations Karuna Reynaga is a 79 year old female with bronchiectasis secondary to recurrent microaspiration presenting for follow-up. She recently had a hospitalization for volume overload but has recovered from that. She is currently doing well with her bronchiectasis treatments. 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 Uploaded to scanned documents for provider to review. [facility] 02-26-2024 Miscellaneous Notes Received outside imaging reports via electronic fax. Uploaded to scanned documents for provider to review. documented in this encounter [facility] 02-26-2024 Telephone encounter Note Patient is scheduled on 03/03/2024 at 12:30pm. [facility] 02-26-2024 Miscellaneous Notes Patient is scheduled on 03/03/2024 at 12:30pm. Called patient to offer virtual appointment with Dr. Dubose on 03/03/2024 at 12:30pm. No answer, unable to leave voicemail. documented in this encounter [facility] 02-26-2024 Telephone encounter Note Called patient to offer virtual appointment with Dr. Dubose on 03/03/2024 at 12:30pm. No answer, unable to leave voicemail. [facility] 02-22-2024 Note HNO ID: [id number] Author: YURIDIA BOURGEOIS RRT Service: ? Author Type: Registered Resp Therapist Type: Progress Notes Filed: 02/22/2024 13:48 Note Text: [facility] unable to provide nebulizer. Order and office notes faxed to [employer] [phone], ph [phone]. Yuridia Bourgeois RRT [facility] 02-22-2024 History of Presen t illness Narrative [facility] unable to provide nebulizer. Order and office notes faxed to [employer] [phone], ph [phone]. Yuridia Bourgeois BARTACKER documented in this encounter [facility] 02-21-2024 Evaluation note Authored February 21, 2024 11:21am [...] then determine the need for PPI [facility] Work Phone: 1(489) 570-576004-12-2024 NoteHNO ID: [id number] Author: DARREL CARRANZA RRT Service: ? Author Type: Registered Resp Therapist Type: Progress Notes Filed: 02/15/2024 17:02 Note Text: Faxed nebulizer rx to [facility] in [place] ph [phone], fax [phone] Darrel Carranza [facility] History of Present illness Narrative* Darrel Carranza RRT - 02/15/2024 5:00 PM EDT Faxed nebulizer rx to [facility] in [place] ph [phone], fax [phone] Darrel Carranza RRT [facility] Miscellaneous Notes* Telephone Encounter - John Madison - 01/22/2024 2:46 PM EDT Images from the original note were not included. Imported external notification of equipment delivery from [employer], dated 01/16/2024. Please allow time delay for documents to appear in velingo (Scanned Documents Tab). Images can take up to 24 hours to appear in velingo. documented in this encounterK[facility]-2024 NoteHNO ID: [id number] Author: UBALDO DUBOSE MD Service: ? Author Type: Physician Type: Progress Notes Filed: 2024 13:33 Note Text: Respiratory Chauncey Karuna Reynaga is a 78 year old female here for evaluation by the [facility] Interstitial Lung Disease Team. Consultation requested by [...] No adenopathy. Thy (more content not included)... [facility]02-23-2024 Instructions* Patient Instructions* Ubaldo Dubose MD - 12/28/2023 2:11 PM EST It [...] (I will send a prescription to a [employer] company) How to Use the Acapella Assure proper [...] through the mouthpiece. Keep your cheeks as firmas possible when you exhale. Try not to [...] - soak both parts in 3 percent hydrogenperoxide for 30 minutes. Note: The Acapella should not be placed in the automatic assembler latches and springs, boiled or bleached. 4. Rinse in clean water. 5. Shake off excess water. 6. Drain dry the device. Place each piece downward or rest the unit on its side. 7. Replace the mouthpiece when the unit is completely dry and ready for use. documented in this encounterK[facility]02-[facility]24 History of Present illness Narrative* Ubaldo Dubose MD - 12/28/2023 1:30 PM EST Images from the original note were not included. Respiratory Chauncey Karuna Reynaga is a 78 year old female here for evaluation by the [facility] Interstitial Lung Disease Team. Consultation requested by self for an opinion regarding ILD and my final recommendations will be communicated back to the requesting physician by way of shared Medical record or letter via US mail. Referring diagnosis: Undetermined HISTORY OF PRESENT ILLNESS: Initially saw Dr. Alcala in 2019 for evaluation of ILD. She had a coughand dyspnea on exertion. She had dysphagia and there was concern for aspiration-related injury. Shehad a 10 pk yr history of smoking [...] workup for aspiration but this was deferred. Shewas started on nebulizer therapy due to inability [...] myself) Laboratory Data Laboratory data reviewed in [facility] Everywhere. Pulmonary Function Data [...] and reticular changes in the dependent regions ofboth lower lobes. Mostly unchanged from previous CT in 2019. ASSESSMENT Karuna Reynaga is a 78 year old female with a history of recurrent microaspiration presenting for evaluation of worsening of cough over the past 6 months. Her imaging is consistent with bronchiectasis and mild pulmonary fibrosis in the dependent regions of the lungs consistent with recurrent microa spiration. I provided her with an acapella device and instructed her how to use it but her pxtfgrvj-pk-gde states that she will likely not be [...] patient being referred for transplantation?: No Ubaldo Dubose MD December 28, 2023 5:04 PM CC: documented in this encounterK[facility]02-22-2024 NoteHNO ID: [id number] Author: DAMASO GUTHRIE RT(Elías) Service: ? Author Type: Technologist Type: Procedures [...] PATIENT PRESENTS WITH AN IMPLANTABLE OR ATTACHED FRENCH COMBER: No RADIOLOGY DEPARTMENT: CT; Exam(s) Completed: Chest PERIPHERAL IV DATA: Not applicable SIGNED BY: Damaso Guthrie, RT(R) December 27, 2023 1:09 [facility]02-20-2024 NoteHNO ID: [id number] Author: YAMINI LAN RRT Service: ? Author Type: Registered Resp Therapist Type: Progress Notes Filed: 12/25/2023 15:11 Note Text: [facility]24 NoteHNO ID: [id number] Author: YAMINI LAN RRT Service: ? Author Type: Registered Resp Therapist Type: Progress Notes Filed: 12/25/2023 15:00 Note Text: PULM FUNCTION SMARTBLOCK: Provider: Ubaldo Dubose MD Spirometry: 1 [facility] History of Present illness Narrative * Yamini Lan RRT - 12/25/2023 3:10 PM EST Pulmonary Function Test documented in this encounterK[facility]24 History of Present illness Narrative* Yamini Lan RRT - 12/25/2023 2:58 PM EST PULM FUNCTION SMARTBLOCK: Provider: Ubaldo Dubose MD Spirometry: 1 DLCO: 1 documented in this encounterK[facility]04-18-2023 Evaluation note* Author [facility] Authored February 21, 2024 11: 21am 79-year-old female referred to the gastroenterology clinic [...] dysphagia then determine the need for PPI [facility] Work Phone: 1(101) 202-613312-16-2021 NoteHISTORY: Bone density screening. COMPARISON: None available. 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) Type II or unspecified type diabetes mellitus with neurological manifestations, not stated as uncontrolled Unspecified hypothyroidism [facility]* Diagnosis Dermatophytosis of nail- Primary [facility]* Diagnosis ILD (interstitial lung disease) ([facility])- Primary Postinflammatory pulmonary fibrosis Shortness of breath [facility]* Diagnosis Bronchiectasis without complication ([facility])- Primary Bronchiectasis without acute exacerbation Aspiration pneumonitis (HCC) Pneumonitis due to inhalation of food or vomitus Traumatic brain injury with loss of consciousness, sequela ([facility]) documented in this encounter [facility] note* Diagnosis Onset Date Resolution Status Bronchitis noneactive [facility] Work Phone: Evaluation note* Diagnosis Bronchiectasis without complication (HCC)- Primary Bronchiectasis without acute exacerbation documented in this encounter [facility] note* Diagnosis Bronchiectasis without complication (HCC)- Primary Bronchiectasis without acute exacerbation documented in this encounter [facility] note* Diagnosis Bronchiectasis without complication (HCC)- Primary Bronchiectasis without acute exacerbation Aspiration pneumonitis (HCC) Pneumonitis due to inhalation of food or vomitus Traumatic brain injury with loss of consciousness, sequela (HCC) [facility] Outpatient Procedure (Routine) - Authorized Specialty Diagnoses / Procedures Referred By Marie duff Referred To [facility] Diagnoses Bronchiectasis without complication (HCC) Procedures LUNG DIFFUSION CAPACITY (DLCO) DIFFUSING CAPACITY Ubaldo Dubose MD [address] [place] [address] [address] Referral ID Status Reason Start Date Expiration Date Visits Requested Visits Authorized [id number] Authorized Auto-Generat ed Referral 12/28/2023 01/26/2025 1 1 * Outpatient Procedure (Routine) - Authorized Specialty Diagnoses / Procedures Referred By Marie duff Referred To [facility] [place] Diagnoses Bronchiectasis without complication (HCC) Procedures SPIROMETRY BASELINE ONLY SPMTRY W/VC EXPIRATORY MIRIAM W/WO MXML VOL VNTJ Ubaldo Dubose MD [address] [place] [address] [address] Referral ID Status Reason Start Date Expiration Date Visits Requested Visits Authorized [id number] Authorized Auto-Generat ed Referral 12/28/2023 01/26/2025 1 1 [facility] Family History No Family History Records FoundUnknown Family Member Name Dates Details Family history of myocardial infarction: Brother(V17.3, Z82.49) Status:Active Relationship Condition Age at Onset Recorded Date/T everette Not Specified Alzheimer's disease Unknown Cerebrovascular accident (CVA) Unknown Diabetes mellitus Unknown father Diabetes mellitus Unknown brother Diabetes mellitus Unknown Heart disease Unknown sister Cerebrovascular accident (CVA) Unknown Summary Purpose Advance Directives No Advanced Directives Records Found Advance Directive Response Recorded Date/ Time Advance [...] Dysphagia GERD (gastroesophageal reflux disease) Globus sensation Chief Complaint Dysphagia Cough R06.00 Acid reflux dysphagia- vital stim J84.89/J84.10/I26.99 Reason for Visit Bronchitis Dysphagia GERD (gastroesophageal [...] section and content) DATE CREATED AUTHOR 10/21/2021 [facility] dical Specialist DATE CREATED AUTHOR AUTHOR'S ORGANIZ ATION 10/22/2021 [employer] DATE CREATED AUTHOR AUTHOR'S ORGANIZ ATION 02/12/2023 [facility] DATE CREATED AUTHOR AUTHOR'S ORGANIZ ATION 02/26/2024 [facility] dical Specialists EPIC DATE CREATED AUTHOR AUTHOR'S ORGANIZ ATION 02/26/2024 [facility] DATE CREATED AUTHOR AUTHOR'S ORGANIZ ATION 03/04/2024 [facility] Source Comments (unrecognize d section and content) In the event this informatio n is protected by the Federal Confidentiality of Alcohol and Drug Abuse Patient Records regulations: The Federal rules restrict any use of the information to criminally investigate or prosecute any alcohol or drug abuse patient.[facility] the event this information is protected by the Federal Confidentiality of Alcohol and Drug Abuse Patient Records regulations: The Federal rules restrict any use of the information to criminally investigate or prosecute any alcohol or drug abuse patient.[facility] the event this information is protected by the Federal Confidentiality of Alcohol and Drug Abuse Patient Records regulations: The Federal rules restrict any use of the information to criminally investigate or prosecute any alcohol or drug abuse patient.[facility] Township[facility] the event this information is protected by the Federal Confidentiality of Alcohol and Drug Abuse Patient Records regulations: The Federal rules restrict any use of the information to criminally investigate or prosecute any alcohol or drug abuse patient.[facility] Township[facility] the event this information is protected by the Federal Confidentiality of Alcohol and Drug Abuse Patient Records regulations: The Federal rules restrict any use of the information to criminally investigate or prosecute any alcohol or drug abuse patient.[facility] Township[facility] the event this information is protected by the Federal Confidentiality of Alcohol and Drug Abuse Patient Records regulations: The Federal rules restrict any use of the information to criminally investigate or prosecute any alcohol or drug abuse patient.[facility] Township[facility] the event this information is protected by the Federal Confidentiality of Alcohol and Drug Abuse Patient Records regulations: The Federal rules restrict any use of the information to criminally investigate or prosecute any alcohol or drug abuse patient.[facility] Township[facility] the event this information is protected by the Federal Confidentiality of Alcohol and Drug Abuse Patient Records regulations: The Federal rules restrict any use of the information to criminally investigate or prosecute any alcohol or drug abuse patient.[facility] Township[facility] the event this information is protected by the Federal Confidentiality of Alcohol and Drug Abuse Patient Records regulations: The Federal rules restrict any use of the information to criminally investigate or prosecute any alcohol or drug abuse patient.[facility] TownshipIn the event this information is protected by the Federal Confidentiality of Alcohol and Drug Abuse Patient Records regulations: The Federal rules restrict any use of the information to criminally investigate or prosecute any alcohol or drug abuse patient.[facility] TownshipIn the event this information is protected by the Federal Confidentiality of Alcohol and Drug Abuse Patient Records regulations: The Federal rules restrict any use of the information to criminally investigate or prosecute any alcohol or drug abuse patient.[facility] Township[facility] the event this information is protected by the Federal Confidentiality of Alcohol and Drug Abuse Patient Records regulations: The Federal rules restrict any use of the information to criminally investigate or prosecute any alcohol or drug abuse patient.[facility] TownshipIn the event this information is protected by the Federal Confidentiality of Alcohol and Drug Abuse Patient Records regulations: The Federal rules restrict any use of the information to criminally investigate or prosecute any alcohol or drug abuse patient.[facility] Care Teams (unrecognized sec tion and content) Bank Representative Relationship Specialty Start Date End Date Ash Vance, DO [address] [place] [address] [facility] General 05/25/09 Bank Representative Relationship Specialty Start Date End Date Ash Vance, DO [address] [place] [address] [facility] General 05/25/09 Bank Representative Relationship Specialty Start Date End Date Ash Vance, DO [address] [place] [address] [facility] General 05/25/09 Team Status: Inactive Member Role [...] November 21, 2023 End: November 21, 2023 Bank Representative Relationship Specialty Start Date End Date AntonioJamal DO [address] [place] [address] PCP - General Internal Medicine 12/25/23 Bank Representative Relationship Specialty Start Date End Date AntonioJamal DO [address] [place] [address] PCP - General Internal Medicine 12/25/23 Bank Representative Relationship Specialty Start Date End Date Jamal Alvarez DO [address] [place] [address] PCP - General Internal Medicine 12/25/23 Team [...] Provider Active S tart: February 13, 2024 Bank Representative Relationship Specialty Start Date End Date Jamal Alvarez DO [address] [place] [address] PCP - General Internal Medicine 12/25/23 Team Status: Active Member Role Status Dates Jamal Alvarez DO Primary Care Provide r, Attending Provider Active Start: February 19, 2024 Team Status: Inactive Member Role Status Dates Jamal Alvarez DO Primary Care Provider Active Start: February 21, 2024 End: February 21, 2024 Flex Ramos MD Attending Provider Active Start: February 21, 2024 End: February 21, 2024 Bank Representative Relationship Specialty Start Date End Date Jamal Alvarez DO [address] [facility] [address] [place] [address] PCP - General Internal Medicine 12/25/23 Team Status: Active Member Role Status Dates Jamal Alvarez DO Primary Care Provide r, Attending Provider Active Start: February 21, 2024 Team Status: Inactive Member Role Status Dates Jamal Alvarez DO Primary Care Provider Active Start: February 25, 2024 End: February 25, 2024 Jose Luis Lockhart RN MSN ANP-C Attending Provider Act darrin Start: February 25, 2024 End: February 25, 2024 Bank Representative Relationship Specialty Start Date End Date Jamal Alvarez DO [address] [facility] [address] [place] [address] PCP - General Internal Medicine 12/25/23 Bank Representative Relationship Specialty Start Date End Date Jamal Alvarez DO [address] [facility] [address] [place] [address] PCP - General Internal Medicine 12/25/23 Bank Representative Relationship Specialty Start Date End Date Jamal Alvarez DO [address] [facility] [address] [place] [address] PCP - General Internal Medicine 12/25/23 Reason for Visit (unrecogniz ed section and content) Reason Comments Spirometry Specialty Diagnoses / Procedures Referred By Contac t Referred To Contact [facility] Diagnoses ILD (interstitial lung disease) (HCC) Shortness of breath Procedures SPIROMETRY WITH DILATOR IF OBSTRUCTED BRNCDILAT RSPSE SPMTRY PRE&POST-BRNCDILAT ADMN Dee Leal, ROSELYN.BUSINESS MANAGEMENT SPECIALIST [address] [phone] Respiratory Chauncey [address] [place] [address] Referral ID Status Reason Start Date Expiration Date V isits Requested Visits Authorized [id number] Closed Auto-Generate d Referral 12/11/2023 01/09/2025 1 1 Specialty Diagnoses / Procedures Referred By Contac t Referred To Contact [facility] Diagnoses ILD (interstitial lung disease) (HCC) Shortness of breath Procedures LUNG DIFFUSION CAPACITY (DLCO) DIFFUSING CAPACITY Dee Leal, ROSELYN.BUSINESS MANAGEMENT SPECIALIST [address] [phone] [place] [id number] Referral ID Status Reason Start Date Expiration Date V isits Requested Visits Authorized [id number] Closed Auto-Generate d Referral 12/11/2023 01/09/2025 1 1 Reason Comments New Reason Comments Received Outside Medical Records Reason Comments Home nebulizer order Reason Comments Appointment Reason Comments Follow Up FOR RECORDS PERTAINING TO PATIENTS WHO ARE [...] BE BASED ON THE PRIMARY CLINICAL RECORDS. [employer] provides no warranty or guarantee of the accuracy or completeness of information in this document.
[2024-03-06 07:45] VITALS: BP 125/71; PULSE 71; TEMP 36.1; O2SAT 95
[2024-03-06] MEDS: TROPICAMIDE 1% OP SOL 300 DROP/15 ML BOTTLE OP ×4 (07:58→08:35)
[2024-03-06] MEDS: DIAZEPAM 5 MG TABLET PO (07:58)
[2024-03-06] MEDS: PHENYLEPHRINE HCL 2.5% OP SOL 40 DROP/2 ML BOTTLE OP ×4 (07:58→08:35)
[2024-03-06] MEDS: BESIFLOXACIN HCL 100 DROP DROPS.SUSP OP ×4 (07:59→08:35)
[2024-03-06] MEDS: PROPARACAINE HCL 0.5% 300 DROP/15 ML BOTTLE OP (08:50)
[2024-03-06 08:59] VITALS: BP 132/66; PULSE 63; O2SAT 100
[2024-03-06] MEDS: HYALURONATE SODIUM 16 MG/ML SYRINGE OP (09:02)
[2024-03-06] MEDS: LIDOCAINE 2% JELLY 10 ML TOPICAL (09:02)
[2024-03-06] MEDS: APRACLONIDINE HCL 0.5% SOL 100 DROP/5 ML BOTTLE OP (09:02)
[2024-03-06] MEDS: BETADINE POVIDONE-IODINE 5% OP SOL 30 ML BOTTLE OP (09:03)
[2024-03-06] MEDS: LIDOCAINE HCL 1% PF 20 MG/2 ML VIAL INJ (09:03)
[2024-03-06] MEDS: PREDNISOLONE ACETATE OP 1% SUSP 100 DROPS/5 ML 1 DROP OP (09:03)
[2024-03-06] MEDS: PHENYLEPHRINE/KETOROLAC 1-0.3% ML VIAL 4 ML IRR (09:03)
[2024-03-06] MEDS: TETRACAINE HCL 0.5% OP SOL 80 DROP/4 ML BOTTLE OP (09:04)
[2024-03-06 09:12] VITALS: BP 141/72; PULSE 62; O2SAT 100
== END 2024-03-06 09:35 | disposition home or self-care (01) ==
LOC: SURGOUT 07:38
PROVIDERS: PCP Internal Medicine; Visit Provider Ophthalmology
PROC: (CPT 66984; principal; 2024-03-06 08:40)
DX: H25.12 Age-related nuclear cataract, left eye (principal); J45.909 Unspecified asthma, uncomplicated; Z87.820 Personal history of traumatic brain injury; E78.5 Hyperlipidemia, unspecified; F32.A Depression, unspecified; E03.9 Hypothyroidism, unspecified; M81.0 Age-related osteoporosis without current pathological fracture; E11.9 Type 2 diabetes mellitus without complications
CPT/HCPCS: 66984; V2630

== ENCOUNTER 2024-03-07 15:25 | Outpatient (OUT) | payer MEDICARE, SELFPAY ==
[2024-03-07 15:44] LABS: Basophils Percent Auto 0.5 % (0.2-2.0); Eosinophils Absolute Auto 0.2 10^3/uL (0.0-0.7); Eosinophils Percent Auto 2.9 % (0.9-7.0); Hemoglobin 12.5 g/dL (12.0-16.0); Immature Granulocytes Abs Auto 0.02 10^3/uL (0.00-0.03); Immature Granulocytes Pct Auto 0.2 % (0.0-0.5); Lymphocytes Absolute Auto 2.4 10^3/uL (1.2-3.8); Lymphocytes Percent Auto 29.8 % (20.5-60.0); Mean Corpuscular HGB Conc 31.3 g/dL (29.9-35.2); Mean Corpuscular Hemoglobin 28.7 pg (26.7-34.0); Mean Corpuscular Volume 91.7 fL (81.0-99.0); Mean Platelet Volume 9.3 fL (9.5-13.5); Monocytes Absolute Auto 0.7 10^3/uL (0.3-0.8); Monocytes Percent Auto 8.1 % (1.7-12.0); Neutrophils Absolute Auto 4.7 10^3/uL (1.4-6.5); Neutrophils Percent Auto 58.5 % (43.0-75.0); Platelet Count 279 10^3/uL (150-450); Red Blood Count 4.36 10^6/uL (4.20-5.40); Red Cell Distribution Width 12.4 % (11.0-15.0)
[2024-03-07 16:45] LABS: Anion Gap 10.9; BUN Creatinine Ratio 31.7; Calcium 9.3 mg/dL (8.5-10.1); Carbon Dioxide 30.6 mmol/L (21.0-32.0); Chloride 104 mmol/L (98-107); Estimated GFR (African America >60 (>=60); Estimated GFR (Non-African Ame >60 (>=60); Glucose 87 mg/dL (74-106); Potassium 4.5 mmol/L (3.5-5.1); Sodium 141 mmol/L (136-145)
== END 2024-03-07 15:26 | disposition home or self-care (01) ==
LOC: LAB 15:26
PROVIDERS: PCP Internal Medicine; Visit Provider Nurse Practitioner Adult Health
DX: J84.89 Other specified interstitial pulmonary diseases (principal); E87.1 Hypo-osmolality and hyponatremia
CPT/HCPCS: 36415; 80048; 85025

== ENCOUNTER 2024-04-10 08:15 | Day surgery (SDC) | payer MEDICARE, SELFPAY ==
--- NOTE | 2024-04-09 | HP_ITS ---
PREOPERATIVE HISTORY AND PHYSICAL Date:? 04/09/2024 HISTORY:? The patient is a 79-year-old white female with complaints of declining vision out of her right eye.? The gradual onset of this has been over the last several years.? At this time, she states having difficulty seeing at a distance, such as a television or road signs.? Additionally, she states having difficulty near with her reading and working on the computer.? PAST OCULAR HISTORY / PAST MEDICAL HISTORY / SOCIAL HISTORY / MEDICATIONS / ALLERGIES TO MEDICATIONS / REVIEW OF SYSTEMS / PHYSICAL EXAM:? Unchanged from previously dictated. ASSESSMENT / PLAN:? Visually significant cataract right eye.? After risks, benefits, alternatives, as well as expectations were delivered to the patient, she elected to go forward with cataract removal.? She understands the risks include but not limited to infection, bleeding, loss of vision, loss of the eye itself.? Secondly, she understands that postoperatively she is likely required to require spectacle correction for her best visual acuity.? Finally, a complete ophthalmic exam was performed.? There is not determined to be any other source of visual decline other than that of the cataract. After understanding all the risks as well as expectations, she elected to go forward with cataract removal and will be doing so in the near future. YISSEL
--- NOTE | 2024-04-10 | OP_ITS ---
OP Note OPERATION DATE: ??04/10/2024 SURGEON:? Saul Abdalla M.D. PREOPERATIVE DIAGNOSIS:? Nuclear sclerotic cataract right eye. POSTOPERATIVE DIAGNOSIS:? Nuclear sclerotic cataract right eye. PROCEDURE NAME:? Cataract extraction with intraocular lens placement for the right eye. ANESTHESIA:? Topical. ESTIMATED BLOOD LOSS:? Zero. COMPLICATIONS:? None. PROCEDURE:? The patient was brought to the Operating Room in supine position.? After proper identification, the right eye was prepped and draped in a sterile ophthalmic fashion.? A paracentesis created at the 11 o'clock position.? Approximately 1 cc of unpreserved Xylocaine was injected into the anterior chamber followed by Amvisc Plus.? Using a 2.6 mm Keratome blade, a clear corneal incision was created at the 9 o'clock limbus.? A cystotome was then used to begin a curvilinear capsulorrhexis that was continued for 360 degrees with the Utrata forceps.? BSS on a 26 gauge cannula was injected beneath the anterior capsule to hydrodissect as well as hydrodelineate the lens.? After ensuring mobility, phacoemulsification was performed in a ftuuucl-hrs-epsyft-type fashion.? After all nuclear material had been removed from the eye, IA was introduced and all residual cortical material was cleaned up.? Additional Amvisc Plus was injected into the posterior bag and a lens model MX60, 19.0 diopters was injected and dialed into position.? After ensuring centration, IA was re- introduced into the anterior chamber and all residual Amvisc Plus removed from the eye.? BSS on a 30 gauge cannula was injected into the stroma of both the clear corneal incision as well as paracentesis to hydrate the wounds.? Additional BSS was injected into the anterior chamber to pressurize the eye at approximately 20 to 22 mmHg by finger tension.? 0.1 cc of antibiotic was used to wash out the anterior chamber maintaining the pressures above.? Weck-Taya sponges were used to check the wounds to be watertight.? One drop of apraclonidine and one drop of prednisolone acetate were placed into the eye and a shield was placed over top. The patient was sent to the postoperative area in satisfactory condition to follow up the following day for postoperative care. YISSEL
[2024-04-10 08:24] VITALS: BP 141/69; PULSE 66; TEMP 36.2; O2SAT 97
--- OUTSIDE RECORDS SUMMARY | 2024-04-10 08:25 | XMS_ITS | CCD ---
Author Organization [facility] Care Team Providers Care Patient Centered Care Specialist Name Role Phone Jamal Alvarez Unavailable Unavailable Unavailable Ash Vance DO Primary Care Provider Ash Vance DO Primary Care Provider [phone] DO Jamal Alvarez Primary Care Provider DO Hermes Kennedy Attending Provider DIAB ., BRUCE Admitting Unavailable MACK ., BRUCE Attending Unavailable DR JAMAL ALVAREZ [...] Care Provider DO Jamal Alvarez Attending Provider [phone] CORNELIUS Pearce Attending Provider [phone] DO Jamal Alvarez Primary Care Provider DO Jamal Alvarez Attending Provider TEAGAN Lockhart Attending Provider [phone] Nallely Pearce Admitting Unavailable Nallely Pearce Attending Unavailable Jamal Alvarez Primary Care Unavailable Jamal Alvarez Primary Care Unavailable Moosa, Valdez F Admitting Unavailable Moosa, Valdez F Attending Unavailable Jamal Alvarez Primary Care Unavailable Moosa, Valdez F Admitting Unavailable Moosa, Valdez F Attending Unavailable Jamal Alvarez Primary Care Unavailable Jamal Alvarez Attending Unavailable Jamal Alvarez Admitting Unavailable Jamal Alvarez Attending Unavailable Antonio, Jamal Admitting Unavailable Antonio, Jamal Primary Care Unavailable Jose Luis Lockhart Admitting Unavailable Jose Luis Lockhart Attending Unavailable Jamal Alvarez Primary Care Unavailable Jamal Alvarez DO Primary Care Provider Ubaldo Dubose Attending Unavailable JAMAL ALVAREZ Primary Care Unavailabl e PAZNNIE DEE Referring Unavailable BUNTING, ASH RAY Primary Care Unavailable PAZNNIEMCKAYDEE Referring Unavailable BUNTING, ASH RAY Primary Care Unavailable MCKAY LEALSSICA Referring Unavailable JAMAL ALVAREZ Primary Care Unavailabl e Ubaldo Dubose Attending Unavailable JAMAL ALVAREZ Primary Care Unavailabl e Jamal Alvarez DO Primary Care Provider [phone] JAMAL ALVAREZ Attending Unavailable JAMAL ALVAREZ Referring Unavailable IRVING DUVALL Attending Unavailable EMMA MELISSA Referring Unavailable ALICE FROST Referring Unavailable JAMAL ALVAREZ Attending Unavailable JAMAL ALVAREZ Referring Unavailable JAMAL ALVAREZ Attending Unavailable JAMAL ALVAREZ Referring Unavailable JESUS ROBERSON Attending Unavailable JESSU ROBERSON Referring Unavailable JAMAL ALVAREZ Referring Unavailable JUDIT LORA Attending Unavailable JAMAL ALVAREZ Primary Care Unavailable Allergies Allergy Classification Reported Allergen(s) Allergy Type Date of Onset Reaction(s) Facility (11 sources) Codeine; Translations: [codeine] Drug Allergy 12-26-19 23 Unknown Reaction [facility] (5 sources) Penicillins; Translations: [Penicillins] Allergy to drug (finding) 06-29-20 [facility] Repository (12 sources) Propoxyphene; Translations: [propoxyphene] Drug Allergy 08-21-20 Other: See Comments [facility] (3 sources) Sulfamethoxazole ; Translations: [sulfa] Drug Allergy -[facility] [facility] DO Work Phone: (16 sources) Latex; Translations: [LATEX] Propensity to adverse reactions 06-29-20 09 [facility] (1 source) Penicillins Propensity to adverse reactions 06-29-20 09 [facility] (14 sources) [place]; Translations: [STRAWBERRIES] Propensity to adverse reactions 06-29-20 09 [facility] (20 sources) Sulfonamides (Antibiotic); Translations: [SULFA (SULFONAMIDE ANTIBIOTICS)] Propensity to adverse reactions 06-29-20 09 [facility] (16 sources) Propoxyphene N-Acetaminophen; Translations: [PROPOXYPHENE N-ACETAMINOPHEN] Drug Allergy 06-29-20 [facility] (13 sources) Penicillins Propensity to adverse reactions 06-29-20 09 [facility] (8 sources) strawberry allergenic extract Drug Allergy 12-26-19 Nausea [facility] (1 source) Penicillins Drug allergy (disorder) [facility] Repository (1 source) Sulfonamides (Antibiotic) Drug allergy (disorder) [facility] Repository (18 sources) Midazolam; Translations: [MIDAZOLAM] Drug Allergy 01-10-20 Mental Status Change, Hallucinations [facility] (7 sources) opiates Propensity to adverse reactions 01-10-20 Confusion [facility] (11 sources) Morphinan opioid; Translations: [OPIOIDS - MORPHINE ANALOGUES] Drug Allergy 12-26-19 Mental Status Change, Unknown, Hallucinations [facility] Medications Current Medications Medication Drug Class(es) Dates Sig (Normalized) Sig (Original) [id number] 200 actuat albuterol 0.09 mg/actuat metered dose inhaler (10 sources) beta2-Adrenergic Agonist take 2 puff(s) by inhalation every four hours as needed albuterol 90 mcg/actuation inhaler 2 puffs Inhalation every 4 hrs as needed for 30 days Active End: 12-28-2023 albuterol sulfate 90 mcg/act uation aebs Inhale as instructed. 0 12/28/2023 Discontinued Ventolin HFA 108 (90 Base) MCG/ACT Inhalation Aerosol Solution As directed. Quantity: 0 Refills: 0 Ordered: 21-Oct-2021 DO Active Comment on above: Inhale as instructed . Calcium (13 sources) Phosphate Binder, Calcium Start: 06-29-20 09 CALCIUM 500 MG TAB Take one(1) tablet twice daily. 0 06/29/2009 Active Comment on above: Take one(1) tablet t wice daily. cholecalciferol 0.05 mg oral capsule (20 sources) Vitamin D Start: 10-17-20 21 Cholecalciferol, Vitamin D3, 50 mcg (2,000 unit) cap Daily 0 10/17/2021 Active Comment on above: Daily clopidogrel 75 mg oral tablet (20 sources) P2Y12 Platelet Inhibitor Start: 06-29-20 take 1 tablet by mouth once daily clopidogrel (Plavix) 75 mg tablet Take 1 tablet (75 mg) by mouth once daily. 05/10/2021 Active Comment on above: Take one(1) tablet d aily. desmopressin acetate 0.2 mg oral tablet (2 sources) Vasopressin Analog, Factor VIII Activator Start: 02-21-20 take 0.2 mg by mouth once daily at bedtime Desmopressin Active 0.2 MG PO Daily at bedtime February 21, 2024 12:00am estradiol 0.1 mg/ml vaginal cream (20 sources) Estrogen Start: 12-26-19 Estradiol Active 1 APPLICATOR VAGINAL Daily December 26, 2022 1:00am Start: 06-11-2020 End: 05-16-2024 estradiol (Estrace) 0.01 % ( 0.1 mg/gram) vaginal cream Insert 0.25 Applicatorfuls (1 g) into the vagina 2 times a week. 06/11/2020 05/16/2024 Active Start: 06-11-2020 End: 05-16-2024 estradiol (ESTRACE) 0.01 % ( 0.1 mg/gram) vaginal cream Use 1 g vaginally. 0 06/11/2020 05/16/2024 Active Start: 06-11-2020 Estradiol 0.1 MG/GM Vaginal Cream USE DIRECTED. Quantity: 0 Refills: 0 Ordered: 27-Oct-2020 DO Start : 11-Jun-2020 Active Comment on above: Use 1 g vaginally. furosemide 20 mg oral tablet (1 source) Loop Diuretic Start: 4 End: 5 take 0.5 tablet by mouth once daily furosemide (Lasix) 20 mg tablet Indications: Shortness of breath , Cough, unspecified type Take 0.5 tablets (10 mg) by mouth once daily. 45 tablet 3 03/10/2024 03/10/2025 Active hydrOXYzine hydrochloride 25 mg oral tablet (12 sources) Antihistamine Start: 1 take 1 tablet by mouth once hydrOXYzine HCL (Atarax) 25 mg tablet Take 1 tablet (25 mg) by mouth 1 time. 08/16/2021 Active Start: 08-16-2021 End: 02-21-2024 take 25 mg by mouth every eight hours Hydroxyzine Hcl Discontinued 25 MG PO Q8H October 17, 2021 1:00am February 21, 2024 10:47am ibandronic acid 150 mg oral tablet (20 sources) Bisphosphonate Start: 11-05-2019 take 1 tablet by mouth every 30 days ibandronate (Boniva) 150 mg tablet Take 1 tablet (150 mg) by mouth every 30 (thirty) days. 02/16/2021 Active Start: 11-05-2019 take 1 tablet by marilyn th every month Ibandronate Sodium 150 MG Oral Tablet TAKE 1 TABLET BY MOUTH ONCE A MONTH Quantity: 3 Refills: 0 Ordered: 09-Aug-2021 DO Start : 16-Feb-2021 Active Comment on above: Take 1 tablet by marilyn th. ketorolac tromethamine 5 mg/ml ophthalmic solution (1 source) Nonsteroidal Anti-inflammatory Drug, Cyclooxygenase Inhibitor Start: 02-13-20 24 End: 03-14-20 24 take 1 drop(s) into the eye(s) twice daily ketorolac (Acular) 0.5 % ophthalmic solution Administer 1 drop into affected eye(s) twice a day. 02/13/2024 03/14/2024 Active liothyronine sodium 0.005 mg oral tablet (17 sources) l-Triiodothyronine Start: 10-25-20 23 take 1 tablet by mouth every twelve hours liothyronine (CYTOMEL) 5 mcg tablet Take 1 tablet by mouth every 12 hours. 0 10/25/2023 Active Start: 12-26-2022 take 5 ug by mouth twice daily Liothyronine Active 5 MCG PO Twice daily December 26, 2022 1:00am Comment on above: Take 1 tablet by marilyn th every 12 hours. MULTIVITAMIN TAB (13 sources) Start: 06-29-20 MULTIVITAMIN TAB Take one(1) tablet daily. 0 06/29/2009 Active Comment on above: Take one(1) tablet d aily. Nebulizer and Compressor For Neb (2 sources) Start: 02-15-20 End: 02-16-20 Nebulizer and Compressor For Neb 1 Each as needed for up to 1 day. Use as directed. 1 Each 0 02/15/2024 02/16/2024 Active Comment on above: 1 Each as needed for up to 1 day. Use as directed. ofloxacin 3 mg/ml ophthalmic solution (1 source) Quinolone Antimicrobial Start: 02-13-20 take 1 drop(s) into the eye(s) five times daily ofloxacin (Ocuflox) 0.3 % ophthalmic solution Administer 1 drop into the right eye five times a day for 1 day Starting 1 day before surgery, continue after surgery as directed 02/13/2024 Active omeprazole 40 mg delayed release oral capsule (20 sources) Proton Pump Inhibitor Start: 08-09-20 End: 02-25-20 omeprazole (PriLOSEC) [address] capsule Take 1 capsule (40 mg) by mouth. 08/09/2021 02/24/2025 Active Comment on above: Take by mouth at bed time as needed. 24 hr oxybutynin chloride 5 mg extended release oral tablet (20 sources) Cholinergic Muscarinic Antagonist Start: 01-03-20 take 5 mg by mouth once daily [...] Take one(1) tablet t wo(2) times daily. simvastatin 20 mg oral tablet (18 sources) HMG-CoA Reductase Inhibitor Start: End: take 1 tablet by mouth once daily at bedtime simvastatin (Zocor) 20 mg tablet Take 1 tablet (20 mg) by mouth once daily at bedtime. 02/16/2021 Active Start: 05-23-2020 End: 12-28-2023 take 1 tablet by mouth once daily at bedtime simvastatin (ZOCOR) 40 mg tablet Take 40 mg by mouth daily at bedtime. 0 05/23/2020 12/28/2023 Discontinued Comment on above: Take 40 mg by mouth daily at bedtime. sodium chloride 30 mg/ml inhalation solution (7 sources) Start: 02-15-2024 sodium chloride (NEBUSAL) 3 % nebulizer solution Use 2 mL via nebulizer two times a day. 360 mL 3 02/15/2024 Active sodium chloride 3 % nebulizer solution INHALE CONTENTS OF 1 VIAL (2MLS) VIA NEBULIZATION 2 TIMES A DAY Active Comment on above: Use 2 mL via nebuliz er two times a day. Completed/Discontinued Medications Medication Drug Class(es) Dates Sig (Normalized) Sig (Original) albuterol 0.833 mg/ml / ipratropium bromide 0.167 mg/ml inhalation solution (9 sources) Anticholinergic, beta2-Adrenergic Agonist Start: 06-29-2020 End: 12-28-2023 take 3 mL by inhalation every six hours as needed ipratropium-albuter ol (DUONEB) 0.5 mg-3 mg(2.5 mg base)/3 mL [...] Cephalexin Discontinued 500 MG PO Twice daily 18 05October 25, 2021 1:00am December 26, 2022 3:00pm diphenoxylate HCl/atropine (LOMOTIL ORAL) (6 sources) End: 12-28-19 diphenoxylate HCl/atropine (LOMOTIL ORAL) Take by mouth. 0 12/28/2023 Discontinued diphenoxylate HC l/atropine (LOMOTIL ORAL) Take by mouth. 0 Active Comment on above: Take by mouth. docusate sodium 100 mg oral capsule (6 sources) Start: 06-29-20 End: 12-28-19 24 docusate sodium(COLACE 100 MG [...] Ordered: 17-Jul-2021 DO Start : 17-Jul-2021 Active levothyroxine sodium 0.075 mg oral tablet (20 [...] (6 sources) Benzodiazepine Start: 06-29-20 End: 12-28-19 24 lorazepam(ATIVAN 1 MG TAB) Take one(1) tablet [...] 17, 2021 12:00am December 26, 2022 2:02pm thymol/chlorophyllin (CHLOROPHYLL ORAL) (6 sources) End: 12-28-2023 [...] food and vomit] 12-28-2023 Episodic Cardiac dysrhythmias (4 sources) Sinus bradycardia; Translations: [Other specified cardiac dysrhythmias] Onset: 4 03-10-2024 Episodic Chronic obstructive pulmonary disease and bronchiectasis (8 sources) Bronchiectasis; Translations: [Bronchiectasis, uncomplicated] Onset: 4 12-28-2023 Chronic Chronic obstructive pulmonary disease and bronchiectasis (3 sources) Bronchitis, not specified as acute or chronic; Translations: [Bronchitis, not specified as acute or chronic] 02-13-2024 Episodic Diabetes mellitus with complications (2 sources) Disorder of nervous system due to type 2 diabetes mellitus; 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] Chronic Diabetes mellitus without complication (4 sources) Type 2 diabetes mellitus; Translations: [Type 2 diabetes mellitus without complications] Onset: 4 03-10-2024 Chronic Disorders of lipid metabolism (5 sources) Mixed hyperlipidemia; Translations: [Mixed hyperlipidemia] Onset: 4 Chronic Esophageal disorders (4 sources) Gastroesophageal reflux disease; Translations: [Gastro-esophageal reflux disease without esophagitis] 02-21-2024 Chronic Intracranial injury (7 sources) Traumatic brain injury with loss of consciousness; Translations: [Unspecified intracranial injury with loss of consciousness of unspecified duration, sequela] Onset: 4 12-28-2023 Episodic Menopausal disorders (1 source) Hormone replacement therapy; Translations: [HORMONE REPLACEMENT THERAPY] Onset: 3 Episodic Mycoses (2 sources) Onychomycosis due to dermatophyte ; Translations: [Tinea unguium] Episodic Other aftercare (3 sources) Other intermediate project manager (current) drug therapy; Translations: [OTH SEWER SEPARATION DESIGNER CURRENT DRUG THERAPY] Onset: 3 Episodic Other aftercare (1 source) Treatment changed; Translations: [Other intermediate project manager (current) drug therapy] 03-10-2024 Episodic Other circulatory disease (2 sources) Abnormal chest sounds; Translations: [Other specified symptoms and signs involving the circulatory and respiratory systems] Onset: 4 03-10-2024 Episodic Other circulatory disease (2 sources) Other specified symptoms and signs involving the circulatory and respiratory systems; Translations: [Other specified symptoms and signs involving the circulatory and respiratory systems] Onset: 4 Episodic Other gastrointestinal disorders (4 sources) Constipation, [...] Onset: 4 Chronic Other lower respiratory disease (15 sources) Cough; Translations: [Cough] Onset: 0 06-29-2020 Episodic Other lower respiratory disease (5 sources) Dyspnea; Translations: [Shortness of breath] Onset: 4 12-25-2023 Episodic Other lower respiratory disease (2 sources) Shortness of breath; Translations: [Shortness of breath] Onset: 4 Episodic Other nervous system disorders (8 sources) Acute postoperative pain; Translations: [Other acute postprocedural pain] 10-25-2021 Episodic Other nervous system disorders (3 sources) Dysphasia; Translations: [Dysphasia] Onset: 4 03-10-2024 Episodic Other nervous system disorders (1 source) Dysphasia; Translations: [Dysphasia] Onset: 4 Episodic Other nutritional; endocrine; and metabolic disorders (3 sources) Obesity; Translations: [Obesity, unspecified] Chronic Other nutritional; endocrine; and metabolic disorders (2 sources) Body mass index 30+ - obesity; Translations: [Body mass index (BMI) 32.0-32.9, adult] Onset: 4 03-10-2024 Chronic Other nutritional; endocrine; and metabolic disorders (2 sources) Body mass index (BMI) 32.0-32.9, adult; Translations: [Body mass index (BMI) 32.0-32.9, adult] Onset: 4 Chronic Other upper respiratory disease (4 sources) Feeling of lump in throat; Translations: [Globus sensation] 02-21-2024 Episodic Screening and history of mental health and substance abuse codes (8 sources) Ex-smoker; Translations: [Personal history of tobacco use] Onset: 3 03-10-2024 Episodic Comment on above: Quit 1979; Thyroid disorders (2 sources) Hypothyroidism; Translations: [Hypothyroidism, unspecified] Chronic Unclassified (1 source) Acute cough; Translations: [Acute cough] Onset: 4 Unclassified (1 source) Unspecified intracranial injury with loss of consciousness status unknown, sequela ([facility]-HCC); Translations: [Unspecified intracranial injury with loss of consciousness status unknown, sequela ([facility]-HCC)] Onset: 4 Unclassified (1 source) Cough, unspecified; Translations: [Cough, unspecified] Onset: Past or Other Problems Problem Classification Problem Date Documented Date Episodic/Chronic Genitourinary symptoms and ill-defined conditions (5 sources) Frequency of micturition; Translations: [Urgency of urination] Onset: 04-05-2022 Episodic Other screening for suspected conditions (not mental disorders or infectious disease) (4 sources) Encounter for screening mammogram for malignant neoplasm of breast; Translations: [ENC SCR MAMMO MALIG NEOPLASM BREAST] Onset: 03-27-2022 Episodic Unclassified (1 source) Onset: 03-10-2024 03-10-2024 Unclassified (1 source) Unspecified intracranial injury with loss of consciousness status unknown, sequela (CMS-HCC); Translations: [Unspecified intracranial injury with loss of consciousness status unknown, sequela (CMS-HCC)] Onset: 03-10-2024 Unclassified (1 source) Cough, unspecified; Translations: [Cough, unspecified] Onset: 03-10-2024 Results Test Name Value Interpretation Reference Range Facility ECG 12 [place] 03-10-2024 [facility] Work Phone: Normal sinus rhythm cannot exclude pattern of septal myocardial infarction no acute abnormalities [facility] Work Phone: Juany 02-26-2024 [facility] Telephone ([facility]) KRAUNA REYNAGA ([id number]) 1945 F Date Time Provider Department 02/26/24 [facility] today, we recorded the following information about you: Eileen Lucas, RN 02/26/2024 4:05 PM Signed Received outside imaging reports via electronic fax. Uploaded to scanned documents for provider to review. John Madison 02/27/2024 8:44 AM Signed Imported external imaging report from [facility], dated 02/22/2024. Please allow time delay for documents to appear in Epic (Scanned Documents Tab). Images can take up to 24 hours to appear in Epic. John Madison 02/27/2024 8:59 AM Signed Imported external CT report from [facility], dated 02/25/2024. Please allow time delay for [...] Encounter Status:Closed by E[facility] LUCAS [facility] KARU[facility] REYNA[facility] ([id number]) 1945 F Date Time Provider Department 02/26/24 UBALDO DUBOSE [facility] During your visit today, we recorded [...] Status:Closed by KORTNEY LINN on 02/26/24 Normal [facility] CT angio chest PE protocolon 02-25-2024 CT angio chest PE protocol [place] [address] CT Scan Report Signed Patient: Karuna Reynaga MR#: [id number] : 1945 Acct:[id number] Age/Sex: 79 / F ADM Date: 02/25/24 Loc: CT Room: Type: [facility] [address] Attending Dr: Jose Luis Lockhart RN, MSN, [...] Jamal Bird M.D.02/25/2024 2:40 PM Dictation Location: [place] [address] Transcribed By: [facility] 02/25/24 1440 Dictated By: Jamal Bird DO 02/25/24 1429 Signed By: 02/25/24 1440 Normal [facility] Creatinine (Bld) [Mass/Vol]O rdered By: JOSE LUIS LOCKHART on 02-25-2024 Creatinine [Mass/Vol] 0.7 mg/dL 0.6-1.3 [facility] Comment on above: ER/ESD physician is notified/shown all ISTAT results.Critical values may be confirmed by laboratory testing ifdeemed necessary by ER attending doctor. ISTAT XRay CREon 02-25-2024 Creatinine [Mass/Vol] 0.7 mg/dL Normal 0.6-1.3 [facility] Comment on above: Result Comment: ER/E [place] physician is notified/shown all ISTAT results. Critical values may be confirmed by laboratory testing if deemed necessary by ER attending doctor. Performed By: #### I SCRE #### [address] [place] [address] [place] ISTAT GFR > 60.0 Normal [facility] Comment on above: Result Comment: PERF ORMED BY: [place] [address] PATHOLOGIST RESIDENTIAL BUILDING INSPECTOR EDMOND NORTH M.D. Performed By: #### I SCRE #### [facility] [address] [place] [address] No Panel InformationOrdered By: JOSE LUIS LOCKHART on 02-25-2024 Bedside Estimated GFR (eGFR) > 60.0 [facility] XR CHEST 2 VIEWSon XR CHEST 2 [...] XR chest 2V*on 02-13-2024 XR chest 2V* [facility] [place] [address] [place] [address] XRay Report Signed Patient: Karuna Reynaga MR#: [id number] : 1945 Acct:[id number] Age/Sex: 79 / F ADM Date: 02/13/24 Loc: XDUCLY Room: Type: [facility] Attending Dr: Nallely SHIELDS Copies to: CORNELIUS [...] Emma Muñoz M.D.02/13/2024 7:24 PM Dictation Location: [id number]-13 Transcribed By: BERTA 02/13/241923 Dictated By: Emma Muñoz II, MD 02/13/241921 Signed By: 02/13/241923 Normal [facility] Juany 01-22-2024 CNPN Telephone ([facility]) KARUNA REYNAGA ([id number]) 1945 F Date Time Provider Department 01/22/24 UBALDO DUBOSE During your visit today, we recorded the following information about you: John Madison 01/22/2024 2:49 PM Signed Imported external notification of equipment delivery from [employer], dated 01/16/2024. Please allow time delay for documents to appear in Boxer (Scanned Documents Tab). Images can take up to 24 hours to appear in Boxer. Allergies As of Date: 01/22/2024 Noted Allergy [...] Encounter Status:Closed by JOHN MADISON on 01/23/24 [facility] Juan 12-28-2023 CNOV Office Visit (DEVON) KARUNA REYNAGA ([id number]) 1945 F Date Time Provider Department 12/28/23 1:30 PM UBALDO DUBOSE During your visit today, we recorded the following information about you: Temperature Pulse Respiration Blood pressure 97.6 degrees 67/minute 16/minute 137/65 Weight 79.4 kg Ubaldo Dubose MD 2024 1:33 PM Addend Respiratory [place] Karuna Reynaga is a 78 year old female here for evaluation by the [facility] Interstitial Lung Disease Team. 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 SOCIAL HISTORY Social History Tobacco Use Smoking [...] acute distr (more content not included)... Normal [facility] CT CHEST WO IVCONon 12-27-19 CT CHEST WO IVCON * * *Final Report* * * DATE OF EXAM: Dec 27 2023 1:09PM [facility] 0541 - CT CHEST WO IVCON [...] calcified gallstone is noted in the gallbladder. Business And Services Instructor (topogram) images: No additional findings. IMPRESSION: 1. [...] any questions regarding this interpretation, please call [phone]. If you are unable to reach us at the number above, please feel free to contact [facility] eRadiology at [phone]. [id number] CN Normal [facility] LUNG DIFFUSION CAPACITY (SHANKAR O)on 12-25-2023 [facility] SPIROMETRY WITH DILATOR IF O BSTRUCTEDon 12-25-2023 DLCO (ml/min/mmHg) 9.76 ml/min/mmHg [facility] DLCO/VA (ml/min/mmHg/L) 4.48 ml/min/mmHg/L [facility] BDQ77-26% PRE (L/S) 1.32 L/S [facility] FEV1 PRE (L) 1.05 L [facility] FEV1/FVC PRE (%) 89 % [facility] FVC PRE (L) 1.19 L [facility] PEF PRE (L/S) 1.90 L/S [facility] VA (L) 2.18 L [facility] CNPNon 11-28-2023 CNPN Telephone (PULMMN) KARUNA REYNAGA ([id number]) 1945 F Date Time Provider Department 11/28/23 [...] [1477] Primary Visit Diagnosis:ILD (interstitial lung disease) ([facility]) [J84.9] Other Visit Diagnoses:Shortness of breath [R06.02] Interstitial pulmonary disease (HCC) [J84.9] Order(s):SPIROMETRY WITH DILATOR IF OBSTRUCTED [6552287] Order #: [id number]: 1 FUTURE LUNG DIFFUSION CAPACITY (DLCO) [8183903] Order #: [id number]: [address] CHEST WO IVCON [[id number]] Order #: [id number] FUTURE Prescriptions as of 12/11/2023 - levothyroxine [...] Status:Closed by RED ANDERSON on 11/29/23 Normal [facility] XR chest 2V*on 11-21-2023 XR chest 2V* [facility] [address] [place] [address] XRay Report Signed Patient: Karuna Reynaga MR#: [id number] : 1945 Acct:[id number] Age/Sex: 78 / F ADM Date: 11/21/23 Loc: XD Room: Type: [facility] [address] Attending Dr: Jamal Alvarez DO Copies to: [...] Jorge Jr., D.O.11/21/2023 7:04 PM Dictation Location: [place] [address] Transcribed By: [facility] 11/21/231903 Dictated By: Frankie Jorge Jr, DO 11/21/231903 Signed By: 11/21/231903 Normal [facility] DEXA BONE DENSITYon 10-26-20 DEXA [...] T4 [Mass/Vol] 0.74 ng/dL Normal 0.61-1.12 [facility] Comment on above: Performed By: #### T 3F, T4F, TSH3 #### [address] Thyroid Stimulating Hormoneo n 10-16-2023 TSH Qn 0.51 m[IU]/L Normal 0.45-5.33 The [facility] Comment on above: Result Comment: PERF ORMED BY: [place] [address] PATHOLOGIST RESIDENTIAL BUILDING INSPECTOR EDMOND NORTH M.D. Performed By: #### T 3F, T4F, TSH3 #### [address] Thyrotropin [Units/volume] i n Serum or PlasmaOrdered By: Valdez Castro on 10-16-2023 TSH Qn 0.51 m[IU]/L 0.45-5.33 [facility] Thyroxine (T4) free [Mass/vo lume] in Serum or PlasmaOrdered By: Valdez Castro on 10-16-2023 Free T4 [Mass/Vol] 0.74 ng/dL 0.61-1.12 [facility] Triiodothyronine (T3) Freeon 10-16-2023 Triiodothyronine (T3) Free 3.08 pg/mL Normal 2.50-3.90 [facility] Comment on above: Result Comment: PERF ORMED BY: [place] [address] PATHOLOGIST RESIDENTIAL BUILDING INSPECTOR EDMOND NORTH M.D. Performed By: #### T 3F, T4F, TSH3 #### [address] Triiodothyronine (T3) Free [ Mass/volume] in Serum or PlasmaOrdered By: Valdez Castro on 10-16-2023 Free T3 [Mass/Vol] 3.08 pg/mL 2.50-3.90 [facility] Free T4 (Free Thyroxine)on 0 07-16-2023 Free T4 [Mass/Vol] 0.75 ng/dL Normal 0.61-1.12 The [facility] Comment on above: Performed By: #### T 3F, T4F, TSH3 #### [address] Thyroid Stimulating Hormoneo n 07-16-2023 TSH Qn 0.07 m[IU]/L Low 0.45-5.33 The [facility] Comment on above: Result Comment: PERF ORMED BY: [place] [address] PATHOLOGIST RESIDENTIAL BUILDING INSPECTOR EDMOND NORTH M.D. Performed By: #### T 3F, T4F, TSH3 #### [address] Triiodothyronine (T3) Freeon 07-16-2023 Triiodothyronine (T3) Free 2.81 pg/mL Normal 2.50-3.90 [facility] Comment on above: Result Comment: PERF ORMED BY: [place] [address] PATHOLOGIST RESIDENTIAL BUILDING INSPECTOR EDMOND NORTH M.D. Performed By: #### T 3F, T4F, TSH3 #### [address] Basophils Auto (Bld) [#/Vol] Ordered By: Hermes Kennedy on 12-26-2022 Basophils (Bld) [#/Vol] 0.0 10*3/uL 0.0-0.2 [facility] Basophils/100 WBC Auto (Bld) Ordered By: Hermes Kennedy on 12-26-2022 Basophils/100 WBC (Bld) 0.5 % . [facility] Creatinine and Glomerular fi ltration rate.predicted panel (S/P/Bld)Ordered By: Hermes Kennedy on 12-26-2022 Creatinine [Mass/Vol] 0.61 mg/dL 0.44-1.03 [facility] Eosinophils Auto (Bld) [#/Vo l]Ordered By: Hermes Kennedy on 12-26-2022 Eosinophils (Bld) [#/Vol] 0.1 10*3/uL 0.0-0.45 [facility] Eosinophils/100 WBC Auto (Bl d)Ordered By: Hermes Kennedy on 12-26-2022 Eosinophils/100 WBC (Bld) 2.3 % . [facility] Erythrocyte distribution wid th Auto (RBC) [Ratio]Ordered By: Hermes Kennedy on 12-26-2022 Erythrocyte distribution width (RBC) [Ratio] 13.2 % 11.9-15.3 [facility] Estimated glomerular filtrat ion rate (GFR) non- AmericanOrdered By: Hermes Kennedy on 12-26-2022 GFR/1.73 sq M.predicted among non-blacks MDRD (S/P/Bld) [Vol rate/Area] > 60 mL/Min [facility] Hematocrit Auto (Bld) [Volum e fraction]Ordered By: Hermes Kennedy on 12-26-2022 Hematocrit (Bld) [Volume fraction] 38.3 % 34.0-46.4 [facility] Hemoglobin [Mass/volume] in BloodOrdered By: Hermes Kennedy on 12-26-2022 Hemoglobin (Bld) [Mass/Vol] 12.4 g/dL 11.8-15.4 [facility] Leukocytes [#/volume] correc rob for nucleated erythrocytes in Blood by Automated counOrdered By: Hermes Kennedy on 12-26-2022 WBC corrected for nucl RBC Auto (Bld) [#/Vol] 6.4 10*3/uL 3.8-11.6 [facility] Lymphocytes Auto (Bld) [#/Vo l]Ordered By: Hermes Kennedy on 12-26-2022 Lymphocytes (Bld) [#/Vol] 2.2 10*3/uL 1.00-4.8 [facility] Lymphocytes/100 WBC Auto (Bl d)Ordered By: Hermes Kennedy on 12-26-2022 Lymphocytes/100 WBC (Bld) 34.9 % . [facility] MCH Auto (RBC) [Entitic mass ]Ordered By: Hermes Kennedy on 12-26-2022 MCH (RBC) [Entitic mass] 29.5 pg 24.7-34.3 [facility] MCHC Auto (RBC) [Mass/Vol]Or dered By: Hermes Kennedy on 12-26-2022 MCHC (RBC) [Mass/Vol] 32.3 g/dL 32.0-35.0 [facility] MCV Auto (RBC) [Entitic vol] Ordered By: Hermes Kennedy on 12-26-2022 MCV (RBC) [Entitic vol] 91.2 fL 80-100 [facility] Monocytes Auto (Bld) [#/Vol] Ordered By: Hermes Kennedy on 12-26-2022 Monocytes (Bld) [#/Vol] 0.5 10*3/uL 0.0-0.8 [facility] Monocytes/100 WBC Auto (Bld) Ordered By: Hermes Kennedy on 12-26-2022 Monocytes/100 WBC (Bld) 8.3 % . [facility] Neutrophils Auto (Bld) [#/Vo l]Ordered By: Hermes Kennedy on 12-26-2022 Neutrophils (Bld) [#/Vol] 3.5 10*3/uL 1.8-7.7 [facility] Neutrophils/100 WBC Auto (Bl d)Ordered By: Hermes Kennedy on 12-26-2022 Neutrophils/100 WBC (Bld) 54.0 % . [facility] No Panel InformationOrdered By: Hermes Kennedy on 12-26-2022 Estimated GFR () > 60 mL/Min [facility] Comment on above: GFR estimated refere nce range: According to KDOQI guidelines, <60 ml/min/1.73m2 is sufficient to diagnose a patient with chronic kidney disease. Pharmacy Creatinine Clearance (Chem N/A [facility] Nucleated erythrocytes [Pres ence] in Blood by Automated countOrdered By: Hermes Kennedy on 12-26-2022 Nucleated RBC Auto Ql (Bld) 0.2 /100{WBC} 0-0.5 [facility] Platelet mean volume Auto (B ld) [Entitic vol]Ordered By: Hermes Kennedy on 12-26-2022 Platelet mean volume (Bld) [Entitic vol] 8.5 fL 6.3-10.7 [facility] Platelets Auto (Bld) [#/Vol] Ordered By: Hermes Kennedy on 12-26-2022 Platelets (Bld) [#/Vol] 218 10*3/uL 150-450 [facility] RBC Auto (Bld) [#/Vol]Ordere d By: Hermes Kennedy on 12-26-2022 RBC (Bld) [#/Vol] 4.20 10*6/uL 3.60-5.00 [facility] Serum or plasma anion gap de terminationOrdered By: Hermes Kennedy on 12-26-2022 Anion gap [Moles/Vol] 10.0 mmol/L 6.0-15.0 [facility] Serum or plasma calcium marce urement (mass/volume)Ordered By: Hermes Kennedy on 12-26-2022 Calcium [Mass/Vol] 9.1 mg/dL 8.2-10.2 [facility] Serum or plasma chloride william surement (moles/volume)Ordered By: Hermes Kennedy on 12-26-2022 Chloride [Moles/Vol] 104 mmol/L 95-114 [facility] Serum or plasma glucose marce urement (mass/volume)Ordered By: Hermes Kennedy on 12-26-2022 Glucose [Mass/Vol] 80 mg/dL 70-100 [facility] Comment on above: ADA recommended refe rence rangeRandom Glucose Reference Range is dependent on time and content of last meal. Glucose of more than 200 mg/dL in a nonstressed, ambulatory subject supports the diagnosis of Diabetes Mellitus. Serum or plasma potassium me asurement (moles/volume)Ordered By: Hermes Kennedy on 12-26-2022 Potassium [Moles/Vol] 4.3 mmol/L 3.5-5.1 [facility] Serum or plasma sodium measu rement (moles/volume)Ordered By: Hermes Kennedy on 12-26-2022 Sodium [Moles/Vol] 139 mmol/L 136-146 [facility] Serum or plasma total carbon dioxide measurement (moles/volume)Ordered By: Hermes Kennedy on 12-26-2022 CO2 [Moles/Vol] 29.3 mmol/L 22.0-30.0 [facility] Serum or plasma urea nitroge n measurement (mass/volume)Ordered By: Hermes Kennedy on 12-26-2022 Urea nitrogen [Mass/Vol] 21 mg/dL 9-23 [facility] WBC Auto (Bld) [#/Vol]Ordere d By: Hermes Kennedy on 12-26-2022 WBC (Bld) [#/Vol] 6.4 10*3/uL 3.8-11.6 [facility] CULTURE URINEon 04-05-2022 CULTURE URINE Culture Observations: NO GROWTH. Normal [facility] Comment on above: Performed By: #### U RCX #### [facility] [address] [place] [address] Dr. Mojgan Daily UA RANDOM W/MICROSCOPICon BACTERIA NONE SEEN Normal NONE SEEN [facility] Comment on above: Performed By: #### U AMIC #### [facility] [address] [place] [address] [address] Mojgan Daily Bilirubin Ql (U) Negative Normal NEGATIVE The [facility] Comment on above: Performed By: #### U AMIC #### [facility] [address] [place] [address] [address] Mojgan Daily CA OX CRYSTALS FEW Normal The [facility] Comment on above: Performed By: #### U AMIC #### [facility] [address] [place] [address] [address] Mojgan Daily CAST NONE SEEN Normal NONE SEEN [facility] Comment on above: Performed By: #### U AMIC #### [facility] [address] [place] [address] [address] Mojgan Daily Clarity (U) CLEAR Normal CLEAR [facility] Comment on above: Performed By: #### U AMIC #### [facility] [address] [place] [address] [address] Mojgan Daily Color (U) LT. YELLOW Normal YELLOW [facility] Comment on above: Performed By: #### U AMIC #### [facility] [address] [place] [address] [address] Mojgan Daily Crystals LM Nom (Urine sed) SEEN Abnormal NONE SEEN [facility] Comment on above: Performed By: #### U AMIC #### [facility] [address] [place] [address] [address] Mojgan Daily Epithelial cells LM Ql (Urine sed) NONE SEEN Normal NONE SEEN /RARE [facility] Comment on above: Performed By: #### U AMIC #### [facility] [address] [place] [address] [address] Mojgan Daily Glucose Ql (U) Negative Normal NEGATIVE [facility] Comment on above: Performed By: #### U AMIC #### [facility] [address] [place] [address] [address] Mojgan Daily Hemoglobin Ql (U) Negative Normal NEGATIVE [facility] Comment on above: Performed By: #### U AMIC #### [facility] [address] [place] [address] [address] Mojgan Daily Ketones Ql (U) Negative Normal NEGATIVE [facility] Comment on above: Performed By: #### U AMIC #### [facility] [address] [place] [address] [address] Mojgan Daily LEUKOCYTES SMALL Abnormal NEGATIVE [facility] Comment on above: Performed By: #### U AMIC #### [facility] [address] [place] [address] [address] Mojgan Daily MUCOUS NONE SEEN Normal NONE SEEN [facility] Comment on above: Performed By: #### U AMIC #### [facility] [address] [place] [address] [address] Mojgan Daily Nitrite Ql (U) Negative Normal NEGATIVE [facility] Comment on above: Performed By: #### U AMIC #### [facility] [address] [place] [address] [address] Mojgan Daily pH (U) 5.0 [pH] Normal 5-9 [facility] Comment on above: Performed By: #### U AMIC #### [facility] [address] [place] [address] [address] Mojgan Daily RBC NONE SEEN Abnormal 0-2 [facility] Comment on above: Performed By: #### U AMIC #### [facility] [address] [place] [address] [address] Mojgan Daily SPEC GRAVITY 1.025 Normal 1.005-<=1.025 The [facility] Comment on above: Performed By: #### U AMIC #### [facility] [address] [place] [address] Dr. Mojgan Daily UA PROTEIN Negative Normal NEGATIVE/ TRACE [facility] Comment on above: Performed By: #### U AMIC #### [facility] [address] [place] [address] [address] Mojgan Daily URIC ACID CRYSTALS RARE Normal The [facility] Comment on above: Performed By: #### U AMIC #### [facility] [address] [place] [address] [address] Mojgan Daily Urobilinogen Qn (U) 0.2 {Amanuel'U}/dL Normal 0.2 - 1. 0 [facility] Comment on above: Performed By: #### U AMIC #### [facility] [address] [place] [address] Dr. Mojgan Daily WBC 2-5 Abnormal NONE SEEN [facility] Comment on above: Performed By: #### U AMIC #### [facility] [address] [place] [address] Dr. Mojgan Daily MG MAMM SCREEN 3D RUPAL CADon 03-27-2022 MG MAMM SCREEN 3D RUPAL CAD Patient: KARUNA REYNAGA Exam Date: 03/27/2022 : 1945 Gender:F Ordering : DR JAMAL ALVAREZ Admission #: [id number] Family : Order #: [id number] CLICK HERE TO VIEW EXAM RADIOLOGY REPORT [...] Treatments None Family Cancers None LOCATION: [facility] BREAST COMPOSITION: Almost entirely fatty. FINDINGS: DIAGNOSTIC [...] Echols MD on 03/27/2022 at 14:10 Normal [facility] Comprehensive metabolic 2000 panelon 02-03-2022 Albumin [Mass/Vol] 4.0 g/dL 3.9 - 4.9 g/dL [facility] ALP [Catalytic activity/Vol] 55 U/L 34 - 123 U/L [facility] ALT [Catalytic activity/Vol] 16 U/L 7 - 38 U/L [facility] Anion gap [Moles/Vol] 10 mmol/L 9 - 18 mmol/L [facility] AST [Catalytic activity/Vol] 16 U/L 13 - 35 U/L [facility] Bilirubin [Mass/Vol] 0.3 mg/dL 0.2 - 1 .3 mg/dL [facility] Calcium [Mass/Vol] 9.4 mg/dL 8.5 - 10. 2 mg/dL [facility] Chloride [Moles/Vol] 107 mmol/L High 97 - 10 5 mmol/L [facility] CO2 [Moles/Vol] 28 mmol/L 22 - 30 mmol/L [facility] Creatinine [Mass/Vol] 0.81 mg/dL 0.58 - 0.96 mg/dL [facility] Estimated Glomerular Filtration Rate 75 mL/min/1.73m >=60 mL/min/1.73m [facility] Glucose [Mass/Vol] 102 mg/dL High 74 - 99 mg/dL [facility] Potassium [Moles/Vol] 4.5 mmol/L 3.7 - 5.1 mmol/L [facility] Protein [Mass/Vol] 6.7 g/dL 6.3 - 8.0 g/dL [facility] Sodium [Moles/Vol] 145 mmol/L High 136 - 144 mmol/L [facility] Urea nitrogen [Mass/Vol] 22 mg/dL High 7 - 21 mg/d L [facility] Office Visit (Cardiology)on 10-21-2021 [...] Weight Tips; Status:Complete - Retrospective Authorization; Done: [id number] Pre-operative cardiovascular examination IO EKG Electrocardiogram- 12 Lead; Status:Complete; Done: [id number] SocHx: Former smoker Tobacco Use Screening; Status:Complete; Done: [id number] Patient Instructions Follow up as needed only Patient may proceed with surgery Dr. Kennedy By signing my name below, I, Jennifer Ball LPNibe, attest that this documentation has been prepared under the direction and in the presence of Dr. Albert Walton DO. All medical record entries made by the Scribe were at my direction and personally dictated by me. I have reviewed the chart and agree that the record accurately reflects my personal performance of the history, physical exam, discussion and plan. Chief Complaint EMILEE REYNAGA is being seen for a consultation [...] Aerosol SolutionAs directed. Vitamin D3 50 MCG (1999) Oral CapsuleTAKE 1 CAPSULE Daily Allergies Medication [...] negative for complaint. Vitals Vital Signs Recorded: 21Oct2021 11:08AMRecorded: [id number] 11:07AM Blhdbivs306, LUE, Grmsdpj387, LUE, Sitting Mvzwpcuhd86, LUE, Twwdtob66, LUE, Sitting Heart Rate58, Apical Height4 ft 10 in Jozwmm356 lb BMI (more content not included)... Normal apstrata Tobacco Screening.on 021 Fall risk assessment a) No falls within the last year [facility] [employer] y 250 DO Work Phone: Tobacco use status CPHS b) No M [facility] [employer] [place] y 250 DO Work Phone: XR Chest [...] by Kole Nino on 10/13/2021 1530 Normal [facility] [place] Vital Signs Date Time Vital Sign Value Performing Clinician Facility 03-10-2024 13:13 Body height 143.5 cm Judit Lora MD Work Phone: [facility] 03-10-2024 13:130400 Body mass index (BMI) [Ratio] 32.2 kg/m2 Judit Lora MD Work Phone: [facility] 03-10-2024 13:130400 Body weight 66.32 kg Judit Lora MD Work Phone: [facility] 03-10-2024 13:13-0400 Diastolic blood pressure 78 mm[Hg] Judit Lora MD Work Phone: [facility] 03-10-2024 13:13-0400 Heart rate 74 /min Jduit Lora MD Work Phone: [facility] 03-10-2024 13:13-0400 Systolic blood pressure 118 mm[Hg] Judit Lora MD Work Phone: [facility] 02-21-2024 10:45-0400 Body height 142.24 cm DO Jamal Alvarez Work Phone: [facility] 02-21-2024 10:45-0400 Body mass index (BMI) [Ratio] 33.8 kg/m2 DO Jamaltaya Alvarez Work Phone: [facility] 02-21-2024 10:45-0400 Body weight 68.49 kg DO Jamal Antonio Work Phone: [facility] 02-21-2024 10:45-0400 Diastolic blood pressure 79 mm[Hg] DO Jamal Antonio Work Phone: [facility] 02-21-2024 10:45-0400 Heart rate 65 /min DO Jamal Antonio Work Phone: [facility] 02-21-2024 10:45-0400 Systolic blood pressure 131 mm[Hg] DO Jamal Antonio Work Phone: [facility] 02-13-2024 18:46-0400 Body height 142.24 cm DO Jamal Antonio Work Phone: [facility] 02-13-2024 18:46-0400 Body mass index (BMI) [Ratio] 33.9 kg/m2 DO Jamal Alvarez Work Phone: [facility] 02-13-2024 18:46-0400 Body temperature 97.1 [degF] DO Jamal Alvarez Work Phone: [facility] 02-13-2024 18:46-0400 Body weight 68.6 kg DO Jamal Alvarez Work Phone: [facility] 02-13-2024 18:46-0400 Diastolic blood pressure 80 mm[Hg] DO Jamal Alvarez Work Phone: [facility] 02-13-2024 18:46-0400 Heart rate 74 /min DO Jamal Alvarez Work Phone: [facility] 02-13-2024 18:46-0400 Respiratory rate 18 /min DO Jamal Alvarez Work Phone: [facility] 02-13-2024 18:46-0400 SaO2% (BldA) [Mass fraction] 94 % DO Jamal Alvarez Work Phone: [facility] 02-13-2024 18:46-0400 Systolic blood pressure 110 mm[Hg] DO Jamal Alvarez Work Phone: [facility] 12-28-2023 13:29-0500 Body temperature 97.59 [degF] Ubaldo Dubose MD Work Phone: [facility] 12-28-2023 13:29-0500 Body weight 79.38 kg Ubaldo Dubose MD Work Phone: [facility] 12-28-2023 13:29-0500 Diastolic blood pressure 65 mm[Hg] Ubaldo Dubose MD Work Phone: [facility] 12-28-2023 13:29-0500 Heart rate 67 /min Ubaldo Dubose MD Work Phone: [facility] 12-28-2023 13:29-0500 Respiratory rate 16 /min Ubaldo Dubose MD Work Phone: [facility] 12-28-2023 13:29-0500 SaO2% (BldA) [Mass fraction] 97 % Ubaldo Dubose MD Work Phone: [facility] 12-28-2023 13:29-0500 Systolic blood pressure 137 mm[Hg] Ubaldo Dubose MD Work Phone: [facility] 10-21-2021 11:08-0500 Diastolic blood pressure 70 mm[Hg] Jamal Alvarez Work Phone: [facility] [employer] 250 DO Work Phone: 10-21-2021 11:08-0500 Systolic blood pressure 132 mm[Hg] Jamal Alvarez Work Phone: [facility] [employer] 250 DO Work Phone: 10-21-2021 11:07-0500 Body height 147.32 cm Jamal Alvarez Work Phone: [facility] 250 DO Work Phone: 10-21-2021 11:07-0500 Body mass index (BMI) [Ratio] 30.31 kg/m2 Jamal Alvarez Work Phone: [facility] [employer] 250 DO Work Phone: 10-21-2021 11:07-0500 Body surface area Derived from formula 1.59 m2 Jamal Alvarez Work Phone: [facility] 250 DO Work Phone: 10-21-2021 11:07-0500 Body weight 65.77 kg Jamal Alvarez Work Phone: [facility] 250 DO Work Phone: 10-21-2021 11:07-0500 Diastolic blood pressure 70 mm[Hg] Jamal Alvarez Work Phone: [facility] 250 DO Work Phone: 10-21-2021 11:07-0500 Heart rate 58 /min Jamal Alvarez Work Phone: [facility] 250 DO Work Phone: 10-21-2021 11:07-0500 Systolic blood pressure 132 mm[Hg] Jamal Alvarez Work Phone: [facility] 250 DO Work Phone: Encounters Encounter Date Encounter Type Care Provider Facility Start: 03-10-2024 End: 03-10-2024 ambulatory JAMAL ALVAREZ Not Available Start: 03-10-2024 End: 03-10-2024 ambulatory [facility] Start: 03-10-2024 End: 03-10-2024 Office consultation new/estab patient 60 min Judit Lora MD Work Phone: [facility] Comment on above: Shortness of breath; Hyperlipidemia, unspecified hyperlipidemia type; Traumatic brain injury, with unknown loss of consciousness status, sequela ([facility]-H[facility]); BMI 32.0-32.9,adult; Former smoker; History of traumatic brain injury; Cough, unspecified type; Diabetes mellitus type II, non insulin dependent (Multi); Dysphasia; Abnormal lung sounds; Bronchiectasis without complication (Multi); Medication course changed Start: 03-03-2024 End: 03-03-2024 ambulatory Ubaldo Dubose Facility:[facility] Start: 03-03-2024 End: 03-03-2024 ambulatory Ubaldo Dubose MD Work Phone: [facility] Comment on above: Bronchiectasis witho ut complication (HCC) (Primary Dx); Aspiration pneumonitis (HCC); Traumatic brain injury with loss of consciousness, sequela (HCC) Start: 03-03-2024 End: 03-03-2024 Telemedicine consultation with patient Uabldo Dubose MD Work Phone: [facility] Start: 02-26-2024 Telephone encounter Ubaldo dawn MD Work Phone: [facility] Comment on above: Appointment Received Outside Med ical Records Start: 02-25-2024 End: 02-25-2024 ambulatory Jose Luis Lockhart Facility:[facility] Start: 02-25-2024 End: 02-25-2024 Patient encounter procedure DO Jamaltaya Alvarez Work Phone: [facility] [address] [place] Work Phone: Start: 02-25-2024 End: 02-25-2024 ambulatory DO Jamal Alvarez Work Phone: [facility] Work Phone: Start: 02-22-2024 End: 02-23-2024 ambulatory ALICE FROST Not Available Start: 02-22-2024 End: 02-22-2024 ambulatory JAMAL ALVAREZ Not Available Start: 02-22-2024 Chart abstracting Yuridia Bourgeois [facility] Comment on above: Home nebulizer order Start: 02-21-2024 Registered Recurring DO Shelby Alvarez Work Phone: [facility] [facility] Start: 02-21-2024 End: 02-21-2024 ambulatory DO Jamaltaya Alvarez Work Phone: [facility] Work Phone: Start: 02-21-2024 End: 02-21-2024 Patient encounter procedure DO Jamal Alvarez Work Phone: [facility] Gastroenterology Work Phone: Start: 02-19-2024 Registered Recurring DO Shelby Alvarez Work Phone: [facility] [facility] Start: 02-15-2024 Orders Only Ubaldo Peres rn, MD Work Phone: Pulmonary Medicine Comment on above: Bronchiectasis witho ut complication (HCC) (Primary Dx) Start: 02-13-2024 End: 02-13-2024 ambulatory Nallely Pearce Facility:[facility] Start: 02-13-2024 End: 02-13-2024 ambulatory DO Jamal Alvarez Work Phone: [facility] Work Phone: Start: 02-13-2024 End: 02-13-2024 Patient encounter procedure DO Jamal Alvarez Work Phone: [facility] Urgent [facility] [place] Work Phone: Start: 02-13-2024 End: 02-13-2024 ambulatory IRVING DUVALL Not Available Start: 02-12-2024 Registered Recurring DO Shelby Alvarez Work Phone: [facility] Start: 01-23-2024 End: 01-23-2024 ambulatory Jamal Antonio Facility:[facility] Start: 01-23-2024 End: 01-23-2024 ambulatory DO Jamal Alvarez Work Phone: [facility] Work Phone: Start: 01-23-2024 End: 01-23-2024 Patient encounter procedure DO Jamal Alvarez Work Phone: [facility] Work Phone: Start: 01-22-2024 Telephone encounter Ubaldo dawn MD Work Phone: Pulmonary Medicine Comment on above: [facility] Start: 01-14-2024 Registered Recurring DO Shelby Alvarez Work Phone: [facility] Start: 12-28-2023 End: 12-28-2023 ambulatory Ubaldo Dubose Facility:[facility] Start: 12-28-2023 End: 12-28-2023 Patient encounter procedure Ubaldo Dubose MD Work Phone: Pulmonary Medicine Comment on above: Bronchiectasis witho ut complication (HCC) (Primary Dx); Aspiration pneumonitis (HCC); Traumatic brain injury with loss of consciousness, sequela (HCC) Start: 12-27-2023 End: 12-27-2023 ambulatory DEE LEAL Facility:[facility] Start: 12-25-2023 End: 12-25-2023 ambulatory DEE KAYCEE Pulmonary Lab Comment on above: Spirometry Start: 12-25-2023 End: 12-25-2023 Patient encounter procedure Pulm Lab Nikhil Work Phone: [facility] Start: 12-05-2023 End: 12-05-2023 ambulatory JAMAL ALVAREZ Not Available Start: 11-21-2023 End: 11-21-2023 ambulatory Jamal Alvarez Facility:[facility] Start: 11-21-2023 End: 11-21-2023 ambulatory DO Jamal Alvarez Work Phone: [facility] Work Phone: Start: 11-21-2023 End: 11-21-2023 Patient encounter procedure DO Jamal Alvarez Work Phone: [facility] Work Phone: Start: 10-26-2023 End: 10-27-2023 ambulatory JAMAL ALVAREZ Not Available Start: 10-16-2023 End: 10-17-2023 ambulatory JESUS ROBERSON Not Available Start: 10-16-2023 End: 10-16-2023 ambulatory Jamal Alvarez Facility:[facility] Start: 10-16-2023 End: 10-16-2023 ambulatory DO Jamal Alvarez Work Phone: [facility] Work Phone: Start: 10-16-2023 End: 10-16-2023 Patient encounter procedure DO Jamal Alvarez Work Phone: [facility] Work Phone: Start: 07-16-2023 End: 07-16-2023 ambulatory Jamal Alvarez Facility:[facility] Start: 02-10-2023 End: 02-10-2023 ambulatory BRUCE DIAB . Facility: Start: 12-26-2022 End: 12-26-2022 ambulatory DO Jamal Alvarez Work Phone: [facility] Work Phone: Start: 12-26-2022 End: 12-26-2022 Patient encounter procedure DO Jamal Alvarez Work Phone: [facility] Work Phone: Start: 07-26-2022 Orders Only Everton Gallego Zoila cortney Work Phone: Hematology/Oncology Comment on above: [...] patient 60 min Jamal Alvarez Work Phone: [facility] 250 DO Work Phone: Start: 10-21-2021 Office outpatient ne w 45 minutes Jamal Alvarez Work Phone: [facility] 600 DO Work Phone: Patient encounter status Jamal Alvarez Work Phone: [facility] 250 DO Work Phone: Procedures Date Procedure Procedure Detail Performing Clinician Start: 03-10-2024 ECG 12-LEAD JUDIT GARCAI Start: 03-10-2024 Ecg routine ecg w/le ast 12 lds w/i&r Judit Lora MD Work Phone: Start: 02-25-2024 CT angiography of thorax DO Jamal Alvarez Work Phone: Start: 02-22-2024 Thyrotropin [Units/v olume] in Serum or Plasma Judit Lora MD Work Phone: Start: 02-20-2024 Lipid 1996 panel - S sun or Plasma Judit Lora MD Work Phone: Start: 02-13-2024 Plain chest X-ray DO Mckay bass Antonio Work Phone: Start: 12-25-2023 Brncdilat rspse spmt ry pre&post-brncdilat admn Red Anderson RN Start: 11-21-2023 Plain chest X-ray DO Mckay kali Alvarez Work Phone: Implantation of sacr al nerve stimulator Jamal Alvarez Work Phone: Total colonoscopy Jamal Alvarez Work Phone: Comment on above: 01/30/2007; Plan of Treatment Date Care Activity Detail Author Start: 02-19-2027 Diabetes Screening Diabetes Screenin [facility] Start: 10-26-2025 Screening for osteoporosis Bone Density Scan [facility] Start: 07-28-2025 Diabetes Screening Diabetes Screenin [facility] Start: 02-21-2025 Thyroid stimulating hormone measurement TSH Level [facility] Start: 02-19-2025 Lipid panel Lipid Panel [facility] Start: 02-03-2025 DIABETES SCREEN DIABETES SCREEN [facility] Start: 06-12-2024 End: 06-12-2024 Patient encounter procedure 06/12/2024 2:45 PM EDT Office Visit [facility] [address] [facility] [address] [place] [address] Judit Lora MD [address] [facility] [address] [place], [place] [id number] [facility] Start: 05-05-2024 End: 05-05-2024 Patient encounter procedure 05/05/2024 3:30 PM EDT Office Visit Pulmonology [facility] [address] [address] Ubaldo Dubose MD [address] [place] [address] Est pt scheduled per Dr. Dubose 4mo fu pft's Pulmonology [facility] Comment on above: Est pt scheduled per Dr. Dubose 4mo fu pft's Start: 04-30-2024 End: 04-30-2024 ambulatory Pulmonary Lab Comment on above: Est pt scheduled per Dr. Dubose 4mo fu pft's Start: 04-16-2024 End: 04-16-2024 Patient encounter procedure 04/16/2024 12:30 PM EDT Appointment [facility] [address] [address] [facility] Start: 03-17-2024 End: 03-10-2025 Basic metabolic 2000 panel - Serum or Plasma Basic Metabolic Panel Lab Routine Shortness of breath Medication course changed Expected: 03/17/2024 (Approximate), Expires: 03/10/2025 [facility] Work Phone: Comment on above: Expected: 03/17/2024 (Approximate), Expires: 03/10/2025 Start: 03-10-2024 End: 03-10-2025 Natriuretic peptide B [Mass/volume] in Blood B-Type Natriuretic Peptide Lab Routine Shortness of breath Cough, unspecified type Abnormal lung sounds Expected: 03/10/2024 (Approximate), Expires: 03/10/2025 [facility] Work Phone: Comment on above: Expected: 03/10/2024 (Approximate), Expires: 03/10/2025 Start: 03-10-2024 End: 03-10-2026 US Heart Transthoracic Transthoracic Echo Complete Echocardiography Routine Shortness of breath Cough, unspecified type Abnormal lung sounds Expected: 03/10/2024 (Approximate), Expires: 03/10/2026 [facility] Service Area Work Phone: Comment on above: Expected: 03/10/2024 (Approximate), Expires: 03/10/2026 Start: 03-03-2024 End: 03-03-2024 Follow-up encounter 03/03/2024 12:30 PM EDT [facility] Pulmonology [facility] [address] [place] [address] Ubaldo Dubose MD [address] [place] [address] follow up Pulmonology [facility] Comment on above: follow up Start: 11-05-2023 Advance Directive Discussion Advance Directive Discussion [facility] Start: 11-05-2023 Behavioral Health Screening Behavioral Health Screening [facility] Start: 11-05-2023 Depression Assessment Depression Ass essment [facility] Start: 07-06-2023 COVID-19 Vaccine () COVID-19 Vaccine () [facility] Start: 07-06-2023 Covid-19 Vaccine () Covid-19 Vaccine () [facility] Start: 10-27-2022 Hemoglobin A1c measurement Diabetes: Hemoglobin A1C [facility] Start: 07-26-2022 End: 09-25-2022 CBC W Auto Differential panel - Blood CBC + DIFF Lab Routine Well controlled type 2 diabetes mellitus with neurological manifestations (HCC) Unspecified hypothyroidism Expected: 07/26/2022, Expires: 09/25/2022 [facility] Work Phone: Comment on above: Expected: 07/26/2022 , Expires: 09/25/2022 Start: 07-26-2022 End: 09-25-2022 Comprehensive metabolic 2000 panel - Serum or Plasma COMP METABOLIC PANEL Lab Routine Well controlled type 2 diabetes mellitus with neurological manifestations (HCC) Unspecified hypothyroidism Expected: 07/26/2022, Expires: 09/25/2022 [facility] Work Phone: Comment on above: Expected: 07/26/2022 , Expires: 09/25/2022 Start: 07-26-2022 End: 09-25-2022 Hepatic function 2000 panel - Serum or Plasma HEPATIC FUNCTION PNL Lab Routine Dermatophytosis of nail Expected: 07/26/2022, Expires: 09/25/2022 [facility] Work Phone: Comment on above: Expected: 07/26/2022 , Expires: 09/25/2022 Start: 07-26-2022 End: 09-25-2022 Lipid 1996 panel - Serum or Plasma LIPID PANEL BASIC Lab Routine Well controlled type 2 diabetes mellitus with neurological manifestations (HCC) Unspecified hypothyroidism Expected: 07/26/2022, Expires: 09/25/2022 [facility] Work Phone: Comment on above: Expected: 07/26/2022 , Expires: 09/25/2022 Start: 07-26-2022 End: 09-25-2022 Thyrotropin [Units/volume] in Serum or Plasma TSH BLD Lab Routine Well controlled type 2 diabetes mellitus with neurological manifestations (HCC) Unspecified hypothyroidism Expected: 07/26/2022, Expires: 09/25/2022 [facility] Work Phone: Comment on above: Expected: 07/26/2022 , Expires: 09/25/2022 Start: 07-06-2022 Influenza vaccination INFLUENZA (#1) [facility] Start: 02-03-2022 End: 04-05-2022 ALBUMIN/CREAT RATIO RND UR [facility] Work Phone: Comment on above: Expected: 02/03/2022 , Expires: 04/05/2022 Start: 02-03-2022 End: 04-05-2022 LIPID PANEL BASIC [facility] Work Phone: Comment on above: Expected: 02/03/2022 , Expires: 04/05/2022 Start: 02-03-2022 End: 04-05-2022 Thyrotropin [Units/volume] in Serum or Plasma [facility] Work Phone: Comment on above: Expected: 02/03/2022 , Expires: 04/05/2022 Start: 02-03-2022 End: 04-05-2022 Urinalysis complete panel - Urine [facility] Work Phone: Comment on above: Expected: 02/03/2022 , Expires: 04/05/2022 Start: 11-05-2021 ADVANCE DIRECTIVE DISCUSSION ADVANCE DIRECTIVE DISCUSSION [facility] Start: 11-05-2021 COVID-19 VACCINE (4 - Booster for Moderna series) COVID-19 VACCINE (4 - Booster for Moderna series) [facility] Start: 08-04-2021 Pneumococcal Vaccine : 65+ (2 of 2 - PCV) Pneumococcal Vaccine: 65+ (2 of 2 - PCV) [facility] Start: 2011 BONE DENSITY BONE DENSITY [facility] Start: 2011 PNEUMOCOCCAL: 65+ (1 - PCV) PNEUMOCOCCAL: 65+ (1 - PCV) [facility] Start: 2011 PNEUMOVAX AGE 65 AND OVER WITH 5YR LOOKBACK (#1) PNEUMOVAX AGE 65 AND OVER WITH 5YR LOOKBACK (#1) [facility] Start: 2006 RSV patient s and/or patients aged 60+ years (1 - 1-dose 60+ series) RSV patients and/or patients aged 60+ years (1 - 1-dose 60+ series) [facility] Start: 2006 RSV Vaccine (1 - 1-d ose 60+ series) RSV Vaccine (1 - 1-dose 60+ series) [facility] Start: 1996 SHINGRIX VACCINE (1 of 2) SHINGRIX VACCINE (1 of 2) [facility] Start: 1968 DTaP/Tdap/Td Vaccine s (1 - Tdap) DTaP/Tdap/Td Vaccines (1 - Tdap) [facility] Start: 1965 Urine microalbumin profile [facility] Start: 1965 Urine screening for protein Diabetes: Urine Protein Screening [facility] Start: 1964 HEPATITIS C SCREENING HEPATITIS C [facility] Start: 1964 Hepatitis C screening Hepatitis C [facility] Start: 1958 Adult depression screening assessment DEPRESSION SCREENING [facility] Start: 1956 Diabetic foot examination Diabetes: Foot Exam [facility] Start: 1956 Glaucoma screening Diabetes: R etinopathy Screening [facility] Start: 1946 Medicare Annual Wellness Visit Medicare Annual Wellness Visit (AWV) [facility] End: 01-26-2025 LUNG DIFFUSION CAPACITY (DLCO) LUNG DIFFUSION CAPACITY (DLCO) PFT Routine Bronchiectasis without complication (HCC) 1 Occurrences starting 12/28/2023 until 01/26/2025 [facility] Work Phone: Comment on above: 1 Occurrences starti ng 12/28/2023 until 01/26/2025 End: 01-26-2025 SPIROMETRY BASELINE ONLY SPIROMETRY BASELINE ONLY PFT Routine Bronchiectasis without complication (HCC) 1 Occurrences starting 12/28/2023 until 01/26/2025 [facility] Work Phone: Comment on above: 1 Occurrences starti ng 12/28/2023 until 01/26/2025 URINE MICROALBUMIN B/O URINE ABAD ROALBUMIN B/O Lab Routine Hypothyroidism, adult 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) Mixed hyperlipidemia Ordered: 02/03/2022 [facility] Work Phone: Comment on above: Ordered: 02/03/2022 XR Chest 2 Views [facility] Immunizations Immunization Date Immunization Notes Care Provider Darwin crawford 08-23-2023 influenza (aIIV4) vaccine, age 65+ yr, quadrivalent, PF (FLUAD QUAD) Ubaldo Dubose MD Work Phone: [facility] 11-10-2022 COVID-19 mRNA Bivale nt Booster (Moderna) DO Jamal Alvarez Work Phone: [facility] 08-17-2022 influenza, high dose seasonal, preservative-free Ubaldo Dubose MD Work Phone: [facility] 05-30-2022 zoster vaccine recombinant Ubaldo Dubose MD Work Phone: [facility] 02-28-2022 zoster vaccine recombinant Ubaldo Dubose MD Work Phone: [facility] 08-16-2021 influenza, high dose seasonal, preservative-free Jamal Alvarez Work Phone: [facility] 07-06-2021 Moderna COVID-19 Vac cine 100 MCG/0.5ML Intramuscular Suspension Jamal Alvarez Work Phone: [facility] 02-03-2021 Moderna COVID-19 Vac cine 100 MCG/0.5ML Intramuscular Suspension Jamal Mylesman Work Phone: [facility] 01-06-2021 Moderna COVID-19 Vac cine 100 MCG/0.5ML Intramuscular Suspension Jamal Adrian MylesAntonio Work Phone: [facility] 08-04-2020 pneumococcal polysaccharide vaccine, 23 valent Jamal Alvarez Work Phone: [facility] 07-15-2020 AS03 adjuvant Ubaldo Dubose MD Work Phone: [facility] 07-15-2020 Seasonal trivalent influenza vaccine, adjuvanted, preservative free Jamal Alvarez Work Phone: [facility] 09-10-2019 AS03 adjuvant Ubaldo Dubose MD Work Phone: [facility] 09-10-2019 Seasonal trivalent influenza vaccine, adjuvanted, preservative free Jamal Alvarez Work Phone: [facility] 07-25-2018 AS03 adjuvant Ubaldo Dubose MD Work Phone: [facility] 07-25-2018 Seasonal trivalent influenza vaccine, adjuvanted, preservative free Jamal Alvarez Work Phone: [facility] 10-22-2017 influenza, injectabl e, quadrivalent, preservative free Jamal Alvarez Work Phone: [facility] 08-17-2016 influenza, high dose seasonal, preservative-free Jamal Alvarez Work Phone: [facility] 11-20-2014 pneumococcal conjuga te vaccine, 13 valent Judit Lora MD Work Phone: [facility] Work Phone: Payers Date Payer Category Payer Medicare AETNA MEDICARE A ETNA MEDICARE PPO [id number] 2021-Present [phone] [address] [place] [address] PPO [id number] 2021 Medicare [id number] 1959 Medicare [id number] 1959 Private Health Insurance [id number] 1946 Unknown [id number] 93 1946 Unknown [id number] 93 1946 Unknown [id number] 93 1946 Unknown [id number] 259 1946 Unknown [id number] [id number] 259 1946 Unknown [id number] 2.16.840.1.250631.3.579.2.1 259 1946 Unknown [id number] [id number] 259 1946 Unknown [id number] 2.16.840.1.454264.3.579.2.1 259 1946 Unknown [id number] [id number] 259 1946 Unknown [id number] 2.16.840.1.909210.3.579.2.1 259 1946 Unknown [id number] 2.16.840.1.135849.3.579.2.1 259 1946 Unknown [id number] 2.16.840.1.591887.3.579.2.1 259 1946 Unknown [id number] 244 Medicaid [id number] Medicare [id number] Medicare Medicare [id number] Private Health Insurance [id number] Private Health Insurance Aetna MCR PFFS M [id number] Self-pay Self Pay [id number] Unknown [id number] Unknown [id number] Unknown AET[employer] Unknown HCAP/HFA/FAP Active [id number] Social History Date Type Detail Facility Tobacco smoking stat [facility] Unknown if ever smoked [facility] Start: 1945 Sex Assigned At Female F [facility] Start: 06-29-2020 End: 03-10-2024 No caffeine use No caffeine use [facility] 250 DO Work Phone: Comment on above: Quit 1979; Start: 06-29-2020 End: 03-10-2024 Tobacco smoking status NHIS Ex-smoker [facility] End: 11-05-1979 History of tobacco use Current smoker [facility] End: 11-05-1979 History of tobacco use Cigarette Smoker [facility] Start: 06-29-2020 End: 12-28-2023 Alcohol intake Current non-drinker of alcohol (finding) [facility] Start: 1945 Sex Assigned At Not on file [facility] Start: 06-29-2020 End: 03-10-2024 Tobacco use and exposure Smokeless tobacco non-user [facility] Start: 06-29-2020 End: 03-10-2024 Tobacco use panel [facility] National Score (1-100), lower number is lower risk Not on file [facility] Start: 03-10-2024 Alcoholic beverage intake Lifetime non-drinker (finding) [facility] Work Phone: Start: 02-29-2024 End: 03-10-2024 Exposure to SARS-CoV-2 (event) Not sure [facility] Medical Equipment Procedure Code Equipment Code Equipment Origin al Text Equipment Identifier Dates Implantable incontinence-contro l electrical stimulation system [id number] FDA Start: 10-25-2021 [id number] [facility] Start: 10-25-2021 USE TO TEST ONCE DAILY EVERY MORNING. [id number] Start: 10-14-2023 Comment on above: USE TO TEST ONCE PIERRE LY EVERY MORNING. Clinical Notes 10-20-2021 to 03-10-2024 Judit Lora MD - 03/10/2024 12:45 PM EDTPatient InstructionsSoUbaldo dawn MD - 03/03/2024 12:30 PM EDTTelephone Encounter - Eileen Lucas RN - 02/26/2024 3:57 PM EDT Note Date & Type Note Facility 03-10-2024 History of Presen t illness Narrative Referred by Dr. Multani ref. provider found for Establish Care (Sob, fatigue,weakness) History Of Present Illness: Emilee Reynaga is a 79 y.o. female presenting with her daughter who identifies herself as Nadira Reynaga. Patient is here and daughters request, because of worsening shortness of breath cough and fluid retention. Recently at pulmonology visit, the possibility of congestive heart failure was raised. Patient has history of traumatic brain injury. Daughter is the medical power of immigration attorney. Patient is a full code at this time. Primary is Jamal Alvarez. Patient has mild dysphagia. She apparently has microaspiration. There is also diagnosis of bronchiectasis. I have reviewed pulmonary notes. In the office patient appears very comfortable. She does not report a history of chest discomfort pressure tightness heaviness or palpitations. This information is through patient's daughter. Patient's daughter is noticing that there is a change in her symptomatology. Previously she would have a dry cough, now she has a moist cough. She sounds congested. She was apparently hospitalized with a diagnosis of pneumonia not too long ago, but really had fluid overload, hypotension natremia, and had a weight gain at that time. Had 1 mechanical fall last year Review of systems is negative or noncontributory except as noted above. Past Surgical History: She has a past surgical history that includes Other surgical history (10/21/2021); Other surgical history (10/21/2021); Cataract extraction (Left); Humerus surgery (Left); Tubal ligation; and Tracheal surgery. Social History: She reports that she has quit smoking. Her smoking use included cigarettes. She has never used smokeless tobacco. She reports that she does not drink alcohol and does not use drugs. Family History: Family History Problem Relation Name Age of Onset Diabetes type I Mother Stroke Mother Alzheimer's disease Mother Hypertension Father Stroke Sister Diabetes type I Brother Heart attack Brother Allergies: Midazolam, Opioids - morphine analogues, Latex, Penicillins, Propoxyphene n-acetaminophen, and Sulfa (sulfonamide antibiotics) Outpatient Medications: Current Outpatient Medications Medication Instructions albuterol 90 mcg/actuation inhaler 2 puffs Inhalation every 4 hrs as needed for 30 days cholecalciferol (Vitamin D-3) 50 mcg (2,000 unit) capsule 1 capsule, oral, Daily clopidogrel (Plavix) 75 mg tablet 1 tablet, oral, Daily estradiol (ESTRACE) 1 g, vaginal, 2 times weekly hydrOXYzine HCL (ATARAX) 25 mg, oral, Once ibandronate (Boniva) 150 mg tablet 1 tablet, oral, Every 30 days ketorolac (Acular) 0.5 % ophthalmic solution 1 drop, ophthalmic (eye), 2 times daily levothyroxine (SYNTHROID, LEVOXYL) 50 mcg, oral, Daily before breakfast liothyronine (CYTOMEL) 5 mcg, oral, 2 times daily ofloxacin (Ocuflox) 0.3 % ophthalmic solution Administer 1 drop into the right eye five times a day for 1 day Starting 1 day before surgery, continue after surgery as directed omeprazole (PRILOSEC) 40 mg, oral oxybutynin XL (DITROPAN-XL) 5 mg, oral, Nightly simvastatin (Zocor) 20 mg tablet 1 tablet, oral, Nightly sodium chloride 3 % nebulizer solution INHALE CONTENTS OF 1 VIAL (2MLS) VIA NEBULIZATION 2 TIMES A DAY TRUEplus Lancets [facility] USE TO TEST ONCE DAILY EVERY MORNING. Last Recorded Vitals: Vitals: 03/10/24 1313 BP: 118/78 BP Location: Right arm Patient Position: Sitting Pulse: 74 Weight: 66.3 kg (146 lb 3.2 oz) Height: 1.435 m (4' 8.5 ) Physical Exam: GENERAL APPEARANCE: Well developed, well nourished, in no acute distress. CHEST: Symmetric and non-tender. INTEGUMENT: Skin warm and dry, without gross excoriationis or lesions. HEENT: No gross abnormalities, no jugular venous distention no carotid bruit or scleral icterus NECK: Supple, no JVD, no bruit. Thyroid not palpable. Carotid upstrokes normal. NEURO/PSHCY: Alert , follows commands, no gross cranial nerve deficits, no gross motor weakness, has short-term memory impairment LUNGS: Fine crepitations throughout both posterior lung galindo suggestive of interstitial lung disease more than congestive heart failure. Could also be consistent with bronchiectasis, but the crepitations are much finer to the ER HEART: Rate and rhythm regular with no evident murmur; no gallop appreciated. There are no rubs, clicks or heaves. ABDOMEN: Soft, nontender, no masses or bruits. MUSCULOSKELETAL: No obvious deformity identified EXTREMITIES: Warm There is no edema noted. PERIPHERAL VASCULAR: Pulses present and equally palpable; 2+ throughout. Labs reviewed today : Reviewed hemoglobin A1c CBC lipid profile comprehensive profile July 2022. Reviewed chest x-ray report February 2024 unable to pull up the chest x-ray for review Basic metabolic profile 03/07/2024 sodium 141 potassium 4.5 GFR greater than 60, hemoglobin 12.5 hematocrit 40 platelets [id number] Assessment/Plan Diagnoses and all orders for this visit: Shortness of breath - Follow Up In Cardiology; Future - ECG 12 Lead - Transthoracic Echo Complete; Future - Basic Metabolic Panel; Future - furosemide (Lasix) 20 mg tablet; Take 0.5 tablets (10 mg) by mouth once daily. - B-Type Natriuretic Peptide; Future Hyperlipidemia, unspecified hyperlipidemia type Traumatic brain injury, with unknown loss of consciousness status, sequela ([facility]) BMI 32.0-32.9,adult Former smoker History of traumatic brain injury Cough, unspecified type - Transthoracic Echo Complete; Future - furosemide (Lasix) 20 mg tablet; Take 0.5 tablets (10 mg) by mouth once daily. - B-Type Natriuretic Peptide; Future Diabetes mellitus type II, non insulin dependent (Multi) Dysphasia Abnormal lung sounds - Transthoracic Echo Complete; Future - B-Type Natriuretic Peptide; Future Bronchiectasis without complication (Multi) Medication course changed - Basic Metabolic Panel; Future Neurostimulator in place Chest x-ray February 2024-increased interstitial markings throughout both lungs greatest within the right upper lobe lingula and both posterior basilar regions no pulmonary edema or pleural effusion persistent right medial hemidiaphragm event duration Chest CT February 2024-diffuse groundglass interstitial prominence basilar atelectasis/scarring [id number]-rdrt history of smoking quit 1979 PFTs not valid because of technique Clinical decision making: This patient has chronic lung disease. She is diagnosed to have bronchiectasis based on pulmonary notes . Apparently of late there has been some weight gain, moist cough and shortness of breath. EKG shows pattern of septal myocardial infarction which is unchanged compared to prior EKGs patient has traumatic brain injury and hence is not a great historian there is history of microaspiration which I confirmed on the basis of history, patient says that she has to chew her food very well otherwise she will choke. We will proceed with an echocardiogram, initiate Lasix 10 mg daily, basic metabolic profile in 1 week, and follow-up after testing. If she has cyclic systolic dysfunction, additional testing may be warranted, will discuss at that time. I was subsequently able to review a note from Dr. Walton from October 2021. Provider Attestation - Scribe documentation All medical record entries made by the Scribe were at my direction and personally dictated by me. I have reviewed the chart and agree that the record accurately reflects my personal performance of the history, physical exam, discussion and plan. documented in this encounter [facility] Work Phone: 03-10-2024 Instructions Raulito Draper MA - 03/10/2024 12:45 PM EDT Please bring all medicines, vitamins, and herbal supplements with you when you come to the office. Prescriptions will not be filled unless you are compliant with your follow up appointments or have a follow up appointment scheduled as per instruction of your physician. Refills should be requested at the time of your visit. documented in this encounter [facility] Work Phone: 03-03-2024 Note HNO ID: [id number] Author: UBALDO DUBOSE MD Service: ? Author Type: Physician Type: Progress Notes Filed: 03/03/2024 13:19 Note Text: VIRTUAL VISIT PROGRESS NOTE This is a virtual visit using Kyoger[employer] Video Visit. It required patient-provider interaction for the medical decision making as documented below. I have communicated my name and active licensure. The patient's identity and physical location were verified at the time of this visit. Either the patient or their legal premium representative has been informed of the risks [...] Cigarettes Quit date: (more content not included)... [facility] 03-03-2024 History of Presen t illness Narrative VIRTUAL VISIT PROGRESS NOTE This is a virtual visit using Ludia Zoom Video Visit. It required patient-provider interaction for the medical decision making as documented below. I have communicated my name and active licensure. The patient's identity and physical location were verified at the time of this visit. Either the patient or their legal premium representative has been informed of the risks [...] in 3 months Ubaldo Dubose MD Pager: [phone] March 02, 2024 12:06 PM documented in this encounter [facility] 02-26-2024 Telephone encounter Note Received outside imaging reports via electronic fax. Uploaded to scanned documents for provider to review. [facility] 02-26-2024 Miscellaneous Notes Received outside imaging reports via electronic fax. Uploaded to scanned documents for provider to review. documented in this encounter [facility] 02-26-2024 Telephone encounter Note Patient is scheduled on 03/03/2024 at 12:30pm. [facility] 02-26-2024 Miscellaneous Notes Patient is scheduled on 03/03/2024 at 12:30pm. Called patient to offer virtual appointment with Dr. Dubose on 03/03/2024 at 12:30pm. No answer, unable to leave voicemail. documented in this encounter [facility] 02-26-2024 Telephone encounter Note Called patient to offer virtual appointment with Dr. Dubose on 03/03/2024 at 12:30pm. No answer, unable to leave voicemail. [facility] 02-22-2024 Note HNO ID: [id number] Author: YURIDIA BOURGEOIS RRT Service: ? Author Type: Registered Resp Therapist Type: Progress Notes Filed: 02/22/2024 13:48 Note Text: [facility] unable to provide nebulizer. Order and office notes faxed to [employer] [phone], ph [phone]. Yuridia Bourgeois RRT [facility] 02-22-2024 History of Presen t illness Narrative Jail[facility] unable to provide nebulizer. Order and office notes faxed to [employer] [phone], ph [phone]. Yuridia Bourgeois CORE PASTER documented in this encounter [facility] 02-21-2024 Evaluation note Authored February 21, 2024 [...] dysphagia then determine the need for PPI [facility] Work Phone: 1(641) 571-445404-12-2024 NoteHNO ID: [id number] Author: DARREL CARRANZA RRT Service: ? Author Type: Registered Resp Therapist Type: Progress Notes Filed: 02/15/2024 17:02 Note Text: Faxed nebulizer rx to [facility] in [place] ph [phone], fax [phone] [facility]ranza [facility] History of Present illness Narrative* Darrel Carranza RRT - 02/15/2024 5:00 PM EDT Faxed nebulizer rx to [facility] in [place] ph [phone], fax [phone] Darrel Carranza RRT documented [facility] Miscellaneous Notes* Telephone Encounter - John Madison - 01/22/2024 2:46 PM EDT Images from the original note were not included. Imported external notification of equipment delivery from [employer], dated 01/16/2024. Please allow time delay for documents to appear in [employer]er (Scanned Documents Tab). Images can take up to 24 hours to appear in [employer]er. documented in this [facility]-2024 NoteHNO ID: [id number] Author: UBALDO DUBOSE MD Service: ? Author Type: Physician Type: Progress Notes Filed: 2024 13:33 Note Text: [facility] Karuna Reynaga is a 78 year old female here for evaluation by the [facility] Interstitial Lung Disease Team. 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 SOCIAL HISTORY Social History Tobacco Use Smoking [...] No adenopathy. Thy (more content not included)... [facility]02-23-2024 Instructions* Patient Instructions* Ubaldo Dubose MD - [...] (I will send a prescription to a [employer] company) How to Use the Acapella Assure [...] should not be placed in the automatic millwright helper, boiled or bleached. 4. Rinse in clean water. 5. Shake off excess water. 6. Drain dry the device. Place each piece downward or rest the unit on its side. 7. Replace the mouthpiece when the unit is completely dry and ready for use. documented in this [facility]24 History of Present illness Narrative* Ubaldo Dubose MD - 12/28/2023 1:30 PM EST Images from the original note were not included. [facility] Karuna Reynaga is a 78 year old female here for evaluation by the [facility] Interstitial Lung Disease Team. 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 SOCIAL HISTORY Social History Tobacco Use Smoking [...] myself) Laboratory Data Laboratory data reviewed in [facility] Everywhere. Pulmonary Function Data [...] her how to use it but her [id number]-oj-ysk states that she will likely not be [...] 2023 5:04 PM CC: documented in this [facility]02-[facility]-2024 NoteHNO ID: [id number] Author: DAMASO GUTHRIE RT(Elías) Service: ? Author [...] PATIENT PRESENTS WITH AN IMPLANTABLE OR ATTACHED ARCH SUPPORT TECHNICIAN: No RADIOLOGY DEPARTMENT: CT; Exam(s) Completed: Chest PERIPHERAL IV DATA: Not applicable SIGNED BY: Damaso Guthrie, RT(R) December 27, 2023 1:09 [facility]02-20-2024 NoteHNO ID: [id number] Author: YAMINI LAN RRT Service: ? Author Type: Registered Resp Therapist Type: Progress Notes Filed: 12/25/2023 15:11 Note Text: [facility]-2024 NoteHNO ID: [id number] Author: YAMINI LAN RRT Service: ? Author Type: Registered Resp Therapist Type: Progress Notes Filed: 12/25/2023 15:00 Note Text: PULM FUNCTION SMARTBLOCK: Provider: Ubaldo Dubose MD Spirometry: 1 [facility] History of Present illness Narrative * Yamini Lan RRT - 12/25/2023 3:10 PM EST Pulmonary Function Test documented in this encounter[facility]24 History of Present illness Narrative* Yamini Lan RRT - 12/25/2023 2:58 PM EST PULM FUNCTION SMARTBLOCK: Provider: Ubaldo Dubose MD Spirometry: 1 DLCO: 1 documented in this encounter[facility]04-18-2023 Evaluation note* Author [facility] Authored February 21, 2024 11: 21am 79-year-old [...] dysphagia then determine the need for PPI [facility] Work Phone: 1(484) 913-301112-16-2021 NoteHISTORY: Bone density screening. COMPARISON: None available. 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) Mixed hyperlipidemia [facility]* Diagnosis Dermatophytosis of nail- Primary Well controlled type 2 diabetes mellitus with neurological manifestations (HCC) Type II or unspecified type diabetes mellitus with neurological manifestations, not stated as uncontrolled Unspecified hypothyroidism [facility]* Diagnosis Dermatophytosis of nail- Primary [facility]* Diagnosis ILD (interstitial lung disease) ([facility] Primary Postinflammatory pulmonary fibrosis Shortness of breath [facility]* Diagnosis Bronchiectasis without complication ([facility])- Primary Bronchiectasis without acute exacerbation Aspiration pneumonitis (HCC) Pneumonitis due to inhalation of food or vomitus Traumatic brain injury with loss of consciousness, sequela (HCC) documented in this encounter [facility] [place] [facility]* Diagnosis Onset Date Resolution Status Bronchitis noneactive [facility] Work Phone: Evaluation note* Diagnosis Bronchiectasis without complication (HCC)- Primary Bronchiectasis without acute exacerbation documented in this encounter [facility] note* Diagnosis Bronchiectasis without complication (HCC)- Primary Bronchiectasis without acute exacerbation documented in this encounter [facility] note* Diagnosis Bronchiectasis without complication (HCC)- Primary Bronchiectasis without acute exacerbation Aspiration pneumonitis (HCC) Pneumonitis due to inhalation of food or vomitus Traumatic brain injury with loss of consciousness, sequela (HCC) documented in this encounter [facility] [place] [facility]* Diagnosis Shortness of breath Hyperlipidemia, unspecified hyperlipidemia type Traumatic brain injury, with unknown loss of consciousness status, sequela (CMS-HCC) BMI 32.0-32.9,adult Former smoker Personal history of tobacco use, presenting hazards to health History of traumatic brain injury Personal history of traumatic brain injury Cough, unspecified type Diabetes mellitus type II, non insulin dependent (Multi) Type II or unspecified type diabetes mellitus without mention of complication, not stated as uncontrolled Dysphasia Other speech disturbance Abnormal lung sounds Abnormal chest sounds Bronchiectasis without complication (Multi) Medication course changed documented in this encounter [facility] Work Phone: Reason for referral (narrative)* Outpatient Procedure (Routine) - Authorized Specialty Diagnoses / Procedures Referred By Contac t Referred To [facility] Diagnoses Bronchiectasis without complication (HCC) Procedures LUNG DIFFUSION CAPACITY (DLCO) DIFFUSING CAPACITY Ubaldo Dubose MD [address] [place] [address] [facility] [address] [place] [address] Referral ID Status Reason Start Date Expiration Date Visits Requested Visits Authorized [id number] Authorized Auto-Generat ed Referral 12/28/2023 01/26/2025 1 1 * Outpatient Procedure (Routine) - Authorized Specialty Diagnoses / Procedures Referred By Contac t Referred To [facility] Diagnoses Bronchiectasis without complication (HCC) Procedures SPIROMETRY BASELINE ONLY SPMTRY W/VC EXPIRATORY MIRIAM W/WO MXML VOL VNTJ Ubaldo Dubose MD [address] [place] [address] [facility] [address] [place] [address] Referral ID Status Reason Start Date Expiration Date Visits Requested Visits Authorized [id number] Authorized Auto-Generat ed Referral 12/28/2023 01/26/2025 1 1 [facility] Family History No Family History Records FoundUnknown [...] Dysphagia GERD (gastroesophageal reflux disease) Globus sensation Reason for Referral Specialty Diagnoses / Procedures Referred By Marie duff Referred To Contact Cardiology Diagnoses Shortness of breath Cough, unspecified type Abnormal lung sounds Procedures Transthoracic Echo Complete ME ECHO TTHRC R-T 2D W/WOM-MODE COMPL SPEC&COLR D Judit Lora MD [address] [facility] [address] [place] [address] Referral ID Status Reason Start Date Expiration Date Visits Requested Visits Authorized [id number] Pending Review Perform Procedure 03/10/2024 03/10/2025 1 1 Specialty Diagnoses / Procedures Referred By Contac t Referred To Contact Diagnoses Shortness of breath Procedures ECG 12 Lead Judit Lora MD [address] [place] [address] Referral ID Status Reason Start Date Expiration Date V isits Requested Visits Authorized [id number] Authorized 03/10/2024 03/10/2025 1 1 Specialty Diagnoses / Procedures Referred By Contac t Referred To Contact Cardiology Diagnoses Shortness of breath Procedures Follow Up In Cardiology Judit Lora MD [address] [place] [address] Judit Lora MD [address] [facility] [address] [place] [address] Referral ID Status Reason Start Date Expiration Date V isits Requested Visits Authorized [id number] Authorized 03/10/2024 03/10/2025 1 1 Additional Source Comments Goals (unrecognized section and [...] section and content) DATE CREATED AUTHOR 10/21/2021 [facility] dical Specialist DATE CREATED AUTHOR AUTHOR'S ORGANIZ ATION 10/22/2021 [employer] DATE CREATED AUTHOR AUTHOR'S ORGANIZ ATION 02/12/2023 [facility] DATE CREATED AUTHOR AUTHOR'S ORGANIZ ATION 02/26/2024 [facility] y[facility] DATE CREATED AUTHOR AUTHOR'S ORGANIZ ATION 03/04/2024 [facility] DATE CREATED AUTHOR AUTHOR'S ORGANIZ ATION 03/11/2024 [facility] dical Specialists [facility] DATE CREATED AUTHOR AUTHOR'S ORGANIZ ATION 03/26/2024 [facility] Comments (unrecognize d section and content) In the event this informatio n is protected by the Federal Confidentiality of Alcohol and Drug Abuse Patient Records regulations: The Federal rules restrict any use of the information to criminally investigate or prosecute any alcohol or drug abuse patient.[facility] CenterIn the event this information is protected by the Federal Confidentiality of Alcohol and Drug Abuse Patient Records regulations: The Federal rules restrict any use of the information to criminally investigate or prosecute any alcohol or drug abuse patient.[facility] CenterIn the event this information is protected by the Federal Confidentiality of Alcohol and Drug Abuse Patient Records regulations: The Federal rules restrict any use of the information to criminally investigate or prosecute any alcohol or drug abuse patient.[facility] CenterIn the event this information is protected by the Federal Confidentiality of Alcohol and Drug Abuse Patient Records regulations: The Federal rules restrict any use of the information to criminally investigate or prosecute any alcohol or drug abuse patient.[facility] CenterIn the event this information is protected by the Federal Confidentiality of Alcohol and Drug Abuse Patient Records regulations: The Federal rules restrict any use of the information to criminally investigate or prosecute any alcohol or drug abuse patient.[facility] CenterIn the event this information is protected by the Federal Confidentiality of Alcohol and Drug Abuse Patient Records regulations: The Federal rules restrict any use of the information to criminally investigate or prosecute any alcohol or drug abuse patient.[facility] CenterIn the event this information is protected by the Federal Confidentiality of Alcohol and Drug Abuse Patient Records regulations: The Federal rules restrict any use of the information to criminally investigate or prosecute any alcohol or drug abuse patient.[facility] CenterIn the event this information is protected by the Federal Confidentiality of Alcohol and Drug Abuse Patient Records regulations: The Federal rules restrict any use of the information to criminally investigate or prosecute any alcohol or drug abuse patient.[facility] CenterIn the event this information is protected by the Federal Confidentiality of Alcohol and Drug Abuse Patient Records regulations: The Federal rules restrict any use of the information to criminally investigate or prosecute any alcohol or drug abuse patient.[facility] CenterIn the event this information is protected by the Federal Confidentiality of Alcohol and Drug Abuse Patient Records regulations: The Federal rules restrict any use of the information to criminally investigate or prosecute any alcohol or drug abuse patient.[facility] CenterIn the event this information is protected by the Federal Confidentiality of Alcohol and Drug Abuse Patient Records regulations: The Federal rules restrict any use of the information to criminally investigate or prosecute any alcohol or drug abuse patient.[facility] CenterIn the event this information is protected by the Federal Confidentiality of Alcohol and Drug Abuse Patient Records regulations: The Federal rules restrict any use of the information to criminally investigate or prosecute any alcohol or drug abuse patient.[facility] CenterIn the event this information is protected by the Federal Confidentiality of Alcohol and Drug Abuse Patient Records regulations: The Federal rules restrict any use of the information to criminally investigate or prosecute any alcohol or drug abuse patient.[facility] Care Teams (unrecognized sec tion and content) Patient Centered Care Specialist Relationship Specialty Start Date End Date Ash Vance, DO [address] [phone] PCP - General 05/25/09 Patient Centered Care Specialist Relationship Specialty Start Date End Date Ash Vance, DO [address] [place] [address] PCP - General 05/25/09 Patient Centered Care Specialist Relationship Specialty Start Date End Date Ash Vance, DO [address] [place] [address] PCP General 05/25/09 Team Status: Inactive Member Role [...] October 16, 2023 End: October 16, 2023 Valedz Castro MD Attending Provider Active S tart: October 16, 2023 End: October 16, 2023 Team Status: Inactive Member Role Status Dates Jamal Alvarez DO Primary Care Provide r, Attending Provider Active Start: November 21, 2023 End: November 21, 2023 Patient Centered Care Specialist Relationship Specialty Start Date End Date Jamal Alvarez DO [address] [place] [address] PCP - General Internal Medicine 12/25/23 Patient Centered Care Specialist Relationship Specialty Start Date End Date Jamal Alvarez DO [address] [place] [address] PCP - General Internal Medicine 12/25/23 Patient Centered Care Specialist Relationship Specialty Start Date End Date Jamal Alvarez DO [address] [place] [address] PCP - General Internal Medicine 12/25/23 Team [...] Provider Active S tart: February 13, 2024 Patient Centered Care Specialist Relationship Specialty Start Date End Date Jamal Alvarez DO [address] [place] [address] PCP - General Internal Medicine 12/25/23 Team Status: Active Member Role Status Dates Jamal Alvarez DO Primary Care Provide r, Attending Provider Active Start: February 19, 2024 Team Status: Inactive Member Role Status Dates Jamal Alvarez DO Primary Care Provider Active Start: February 21, 2024 End: February 21, 2024 Flex Ramos MD Attending Provider Active Start: February 21, 2024 End: February 21, 2024 Patient Centered Care Specialist Relationship Specialty Start Date End Date Jamal Alvarez DO [address] [place] [address] PCP - General Internal Medicine 12/25/23 Team Status: Active Member Role Status Dates Jamal Alvarez DO Primary Care Provide r, Attending Provider Active Start: February 21, 2024 Team Status: Inactive Member Role Status Dates Jaaml Alvarez DO Primary Care Provider Active Start: February 25, 2024 End: February 25, 2024 Jose Luis Lockhart RN MSN ANP-C Attending Provider Act darrin Start: February 25, 2024 End: February 25, 2024 Patient Centered Care Specialist Relationship Specialty Start Date End Date Jamal Alvarez DO [address] [facility] [facility] [address] [place] [address] PCP - General Internal Medicine 12/25/23 Patient Centered Care Specialist Relationship Specialty Start Date End Date Jamal Alvarez DO [address] [place] [address] PCP - General Internal Medicine 12/25/23 Patient Centered Care Specialist Relationship Specialty Start Date End Date Jamal Alvarez DO [address] [place] [address] PCP - General Internal Medicine 12/25/23 Patient Centered Care Specialist Relationship Specialty Start Date End Date Jamal Alvarez [address] [place] [address] PCP - General 11/05/99 Reason for Visit (unrecogniz ed section and content) Reason Comments Spirometry Specialty Diagnoses / Procedures Referred By Contac t Referred To Contact [facility] Diagnoses ILD (interstitial lung disease) (HCC) Shortness of breath Procedures SPIROMETRY WITH DILATOR IF OBSTRUCTED BRNCDILAT RSPSE SPMTRY PRE&POST-BRNCDILAT ADMN Dee Leal, COURTESY CLERK.PAPER COATER [address] [address] Referral ID Status Reason Start Date Expiration Date V isits Requested Visits Authorized [id number] Closed Auto-Generate d Referral 12/11/2023 01/09/2025 1 1 Specialty Diagnoses / Procedures Referred By Contac t Referred To Contact [facility] Diagnoses ILD (interstitial lung disease) (HCC) Shortness of breath Procedures LUNG DIFFUSION CAPACITY (DLCO) DIFFUSING CAPACITY Dee Leal, COURTESY CLERK.PAPER COATER [address] [address] Referral ID Status Reason Start Date Expiration Date V isits Requested Visits Authorized [id number] Closed Auto-Generate d Referral 12/11/2023 01/09/2025 1 1 Reason Comments New Reason Comments Received Outside Medical Records Reason Comments Home nebulizer order Reason Comments Appointment Reason Comments Follow Up Reason Comments Establish Care Sob, fatigue,weaknes s Specialty Diagnoses / Procedures Referred By Contac t Referred To Contact Diagnoses Shortness of breath Procedures ECG 12 Lead Judit Lora MD [address] [facility] [address] [place] [address] Referral ID Status Reason Start Date Expiration Date V isits Requested Visits Authorized [id number] Authorized 03/10/2024 03/10/2025 1 1 FOR RECORDS PERTAINING TO PATIENTS WHO ARE [...] BE BASED ON THE PRIMARY CLINICAL RECORDS. [facility] provides no warranty or guarantee of the accuracy or completeness of information in this document.
[2024-04-10] MEDS: TROPICAMIDE 1% OP SOL 300 DROP/15 ML BOTTLE OP ×4 (08:27→08:58)
[2024-04-10] MEDS: DIAZEPAM 5 MG TABLET PO (08:27)
[2024-04-10] MEDS: CYCLOPENTOLATE HCL 1% OP SOL 40 DROP/2 ML BOTTLE OP ×4 (08:28→08:59)
[2024-04-10] MEDS: PHENYLEPHRINE HCL 2.5% OP SOL 40 DROP/2 ML BOTTLE OP ×4 (08:28→08:58)
[2024-04-10] MEDS: BESIFLOXACIN HCL 100 DROP DROPS.SUSP OP ×4 (08:29→08:59)
[2024-04-10] MEDS: PROPARACAINE HCL 0.5% 300 DROP/15 ML BOTTLE OP (09:17)
[2024-04-10 09:23] VITALS: BP 127/61; PULSE 70; O2SAT 97
[2024-04-10] MEDS: APRACLONIDINE HCL 0.5% SOL 100 DROP/5 ML BOTTLE OP (09:24)
[2024-04-10] MEDS: LIDOCAINE 2% JELLY 10 ML TOPICAL (09:25)
[2024-04-10] MEDS: LIDOCAINE HCL 1% PF 20 MG/2 ML VIAL INJ (09:25)
[2024-04-10] MEDS: PHENYLEPHRINE/KETOROLAC 1-0.3% ML VIAL 4 ML IRR (09:25)
[2024-04-10] MEDS: HYALURONATE SODIUM 16 MG/ML SYRINGE OP (09:25)
[2024-04-10] MEDS: BETADINE POVIDONE-IODINE 5% OP SOL 30 ML BOTTLE OP (09:26)
[2024-04-10] MEDS: PREDNISOLONE ACETATE OP 1% SUSP 100 DROPS/5 ML 1 DROP OP (09:26)
[2024-04-10] MEDS: TETRACAINE HCL 0.5% OP SOL 80 DROP/4 ML BOTTLE OP (09:26)
[2024-04-10 09:32] VITALS: BP 118/59; PULSE 67; O2SAT 97
== END 2024-04-10 09:55 | disposition home or self-care (01) ==
LOC: SURGOUT 08:16
PROVIDERS: PCP Internal Medicine; Visit Provider Ophthalmology
PROC: (CPT 66984; principal; 2024-04-10 09:10)
DX: H25.11 Age-related nuclear cataract, right eye (principal)
CPT/HCPCS: 66984; V2630

== ENCOUNTER 2024-04-11 13:32 | Outpatient (OUT) | payer MEDICARE, SELFPAY ==
--- NOTE | 2024-04-11 13:35 | MM_ITS ---
Patient Name: NAT REYNAGA MR#: [id number] : 1945 Exam Date: 04/11/2024 Ordering Doctor: DR DAYNE BOSE RADIOLOGY REPORT PROCEDURE: MM TOMOSYNTHESIS SCREENING BI COMPARISON: MM TOMOSYNTHESIS SCREENING BI, 04/06/2023. MG MAMM SCREEN 3D RUPAL CAD, 03/27/2022. MG MAMM SCREEN RUPAL W CAD, 03/25/2021. MG MAMM SCREEN RUPAL W CAD, 09/06/2015. INDICATIONS: Screening Calculator Name NCI Breast Cancer Risk Assessment Tool 5 Year Breast Cancer Risk 1.60% Lifetime Breast Cancer Risk 2.90% Personal Breast Cancer No Personal Ovarian Cancer No Treatments None Family Cancers None LOCATION: [facility] BREAST COMPOSITION: The breasts are almost entirely fatty. FINDINGS: DIAGNOSTIC CATEGORY 1--NEGATIVE. RIGHT BREAST: No significant suspicious finding. No significant change has occurred. LEFT BREAST: No significant suspicious finding. No significant change has occurred. RECOMMENDATIONS: ROUTINE MAMMOGRAM AND CLINICAL EVALUATION IN 12 MONTHS. PLEASE NOTE: A NORMAL MAMMOGRAM DOES NOT EXCLUDE THE POSSIBILITY OF BREAST CANCER. A CLINICALLY SUSPICIOUS PALPABLE LUMP SHOULD BE BIOPSIED. Dictated by: Hiro Tran M.D. on 04/11/2024 at 15:58 Approved by: Hiro Tran M.D. on 04/11/2024 at 16:00
--- OUTSIDE RECORDS SUMMARY | 2024-04-11 13:38 | XMS_ITS | CCD ---
Author Organization [facility] Care Team Providers Care Color Checker Roving Or Yarn Name Role Phone Jamal Alvarez Unavailable Unavailable [...] Attending Provider DO Jamal Alvarez Attending Provider [phone] Jamal Alvarez DO Primary Care Provider DO Jamal Alvarez Primary Care Provider DO Jamal Alvarez Attending Provider CORNELIUS Pearce Attending Provider DO Jamal Alvarez Primary Care Provider DO Jamal Alvarez Attending Provider TEAGAN Lockhart Attending Provider [phone] Nallely Pearce Admitting Unavailable Nallely Pearce Attending Unavailable Jamal Alvarez Primary Care Unavailable Jamal Alvarez Primary Care Unavailable Moosa, Valdez F Admitting Unavailable Moosa, Valdez F Attending Unavailable Jamal Alvarez Primary Care Unavailable Moosa, Valdez F Admitting Unavailable Moosa, Valdez F Attending Unavailable Jamal Alvarez Primary Care Unavailable Jamal Alvarez Attending Unavailable Jamal Alvarez Admitting Unavailable Jamal Alvarez Attending Unavailable Antoino, Jamal Admitting Unavailable Antonio, Jamal Primary Care [...] e Jamal Alvarez DO Primary Care Provider [phone] JAMAL ALVAREZ Attending Unavailable JAMAL ALVAREZ Referring [...] [codeine] Drug Allergy 12-26-19 23 Unknown Reaction [facility] (5 sources) Penicillins; Translations: [Penicillins] Allergy to drug (finding) 06-29-20 [facility] Repository (12 sources) Propoxyphene; Translations: [propoxyphene] Drug Allergy 08-21-20 Other: See Comments [facility] (3 sources) Sulfamethoxazole ; Translations: [sulfa] Drug Allergy -[facility] y [facility] DO Work Phone: (16 sources) Latex; Translations: [LATEX] Propensity to adverse reactions 06-29-20 09 [facility] (1 source) Penicillins Propensity to adverse reactions 06-29-20 09 [facility] (14 sources) Hurley; Translations: [STRAWBERRIES] Propensity to adverse reactions 06-29-20 09 [facility] (20 sources) Sulfonamides (Antibiotic); Translations: [SULFA (SULFONAMIDE ANTIBIOTICS)] Propensity to adverse reactions 06-29-20 09 [facility] (16 sources) Propoxyphene N-Acetaminophen; Translations: [PROPOXYPHENE N-ACETAMINOPHEN] Drug Allergy 06-29-20 [facility] (13 sources) Penicillins Propensity to adverse reactions 06-29-20 09 [facility] (8 sources) strawberry allergenic extract Drug Allergy 12-26-19 Nausea [facility] (1 source) Penicillins Drug allergy (disorder) [facility] Repository (1 source) Sulfonamides (Antibiotic) Drug allergy (disorder) [facility] Repository (18 sources) Midazolam; Translations: [MIDAZOLAM] Drug Allergy 01-10-20 Mental Status Change, Hallucinations [facility] (7 sources) opiates Propensity to adverse reactions 01-10-20 Confusion [facility] (11 sources) Morphinan opioid; Translations: [OPIOIDS - MORPHINE ANALOGUES] Drug Allergy 12-26-19 Mental Status Change, Unknown, Hallucinations [facility] Medications Current Medications Medication Drug Class(es) Dates Sig (Normalized) Sig (Original) [id number] 200 actuat albuterol 0.09 mg/actuat metered dose [...] unguium] Episodic Other aftercare (3 sources) 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; Translations: [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] Onset: 3 Episodic Other aftercare (1 source) Treatment changed; Translations: [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] 03-10-2024 Episodic Other circulatory [...] with loss of consciousness status unknown, sequela ([facility]); Translations: [Unspecified intracranial injury with loss of consciousness status unknown, sequela ([facility])] Onset: 4 Unclassified (1 source) Cough, unspecified; [...] Reference Range Facility ECG 12 Leadon 03-10-2024 [facility] Work Phone: Normal sinus rhythm cannot exclude pattern of septal myocardial infarction no acute abnormalities [facility] Work Phone: Juany 02-26-2024 [facility] Telephone ([facility]) KARUNA REYNAGA ([id number]) 1945 F Date Time Provider Department 02/26/24 [facility] During your visit today, we recorded the following information about you: Eileen Lucas, RN 02/26/2024 4:05 PM Signed Received outside imaging reports via electronic fax. Uploaded to scanned documents for provider to review. John Madison 02/27/2024 8:44 AM Signed Imported external imaging report from [facility], dated 02/22/2024. Please allow time delay for documents to appear in Epic (Scanned Documents Tab). Images can take up to 24 hours to appear in Epic. John Madison 02/27/2024 8:59 AM Signed Imported external CT report from [facility], dated 02/25/2024. Please allow time delay for [...] Encounter Status:Closed by [facility] LUCAS [facility] KARU[facility] REY[facility] ([id number]) 1945 F Date Time Provider Department 02/26/24 UBALDO DUBOSE [facility] During your visit today, we recorded the [...] Status:Closed by KORTNEY LINN on 02/26/24 Normal [facility] CT angio chest PE protocolon 02-25-2024 CT angio chest PE protocol [facility] [place] [address] CT Scan Report Signed Patient: Karuna Reynaga MR#: [id number] : 1945 Acct:[id number] Age/Sex: 79 / F ADM Date: 02/25/24 Loc: CT Room: Type: [facility] Attending Dr: Jose Luis Lockhart RN, MSN, [...] Jamal Bird M.D.02/25/2024 2:40 PM Dictation Location: [place] [address] Transcribed By: [facility] 02/25/24 1440 Dictated By: Jmaal Bird DO 02/25/24 1429 Signed By: 02/25/24 1440 Normal [facility] Creatinine (Bld) [Mass/Vol]O rdered By: JOSE LUIS LOCKHART on 02-25-2024 Creatinine [Mass/Vol] 0.7 mg/dL 0.6-1.3 [facility] Comment on above: ER/ESD physician is notified/shown all ISTAT results.Critical values may be confirmed by laboratory testing ifdeemed necessary by ER attending doctor. ISTAT XRay CREon 02-25-2024 Creatinine [Mass/Vol] 0.7 mg/dL Normal 0.6-1.3 [facility] Comment on above: Result Comment: ER/E SD physician is notified/shown all ISTAT results. Critical values may be confirmed by laboratory testing if deemed necessary by ER attending doctor. Performed By: #### I SCRE #### [address] [place] [address] [place] ISTAT GFR > 60.0 Normal [facility] Comment on above: Result Comment: PERF ORMED BY: [place] [address] PATHOLOGIST MANAGER PHOTO EDMOND NORTH M.D. Performed By: #### I SCRE #### [facility] [address] [place] [address] No Panel InformationOrdered By: JOSE LUIS LOCKHART on 02-25-2024 Bedside Estimated GFR (eGFR) > 60.0 [facility] XR CHEST 2 VIEWSon XR CHEST 2 [...] XR chest 2V*on 02-13-2024 XR chest 2V* [facility] [place] [address] [place] [address] XRay Report Signed Patient: Karuna Reynaga MR#: [id number] : 1945 Acct:[id number] Age/Sex: 79 / F ADM Date: 02/13/24 Loc: XDUCLY Room: Type: [facility] Attending Dr: Nallely SHIELDS Copies to: CORNELIUS [...] MD 02/13/241921 Signed By: 02/13/241923 Normal [facility] Juany 01-22-2024 CNPN Telephone (PULMMN) KARUNA REYNAGA ([id number]) 1945 F Date Time Provider Department 01/22/24 UBALDO DUBOSE During your visit today, we recorded the following information about you: John Madison 01/22/2024 2:49 PM Signed Imported external notification of equipment delivery from [employer], dated 01/16/2024. Please allow time delay for documents to appear in Flipora (Scanned Documents Tab). Images can take up to 24 hours to appear in Flipora. Allergies As of Date: 01/22/2024 Noted Allergy [...] Encounter Status:Closed by JOHN MADISON on 01/23/[address] [facility] Juan 12-28-2023 CNOV Office Visit (DEVON) KARUNA REYNAGA ([id number]) 1945 F Date Time Provider Department 12/28/23 1:30 PM UBALDO DUBOSE During your visit today, we recorded the following information about you: Temperature Pulse Respiration Blood pressure 97.6 degrees 67/minute 16/minute 137/65 Weight 79.4 kg Ubaldo Dubose MD 2024 1:33 PM Addend Respiratory Mallory Karuna Reynaga is a 78 year old female here for evaluation by the [facility] Interstitial Lung Disease Team. Consultation [...] acute distr (more content not included)... Normal [facility] CT CHEST WO IVCONon 12-27-19 CT CHEST WO IVCON * * *Final Report* * * DATE OF EXAM: Dec 27 2023 1:09PM [facility] 0541 - CT CHEST WO IVCON [...] calcified gallstone is noted in the gallbladder. Legal Researcher (topogram) images: No additional findings. IMPRESSION: 1. [...] any questions regarding this interpretation, please call [phone]. If you are unable to reach us at the number above, please feel free to contact [facility] eRadiology at [phone]. [id number] CN Normal [facility] LUNG DIFFUSION CAPACITY (SHANKAR O)on 12-25-2023 [facility] SPIROMETRY WITH DILATOR IF O BSTRUCTEDon 12-25-2023 DLCO (ml/min/mmHg) 9.76 ml/min/mmHg [facility] DLCO/VA (ml/min/mmHg/L) 4.48 ml/min/mmHg/L [facility] EGF85-04% PRE (L/S) 1.32 L/S [facility] FEV1 PRE (L) 1.05 L [facility] FEV1/FVC PRE (%) 89 % [facility] FVC PRE (L) 1.19 L [facility] PEF PRE (L/S) 1.90 L/S [facility] VA (L) 2.18 L [facility] CNPNon 11-28-2023 CNPN Telephone (PULMMN) KARUNA REYNAGA ([id number]) 1945 F Date Time Provider Department 11/28/23 [...] [1477] Primary Visit Diagnosis:ILD (interstitial lung disease) ([facility]) [J84.9] Other Visit Diagnoses:Shortness of breath [R06.02] Interstitial pulmonary disease (HCC) [J84.9] Order(s):SPIROMETRY WITH DILATOR IF OBSTRUCTED [6021909] Order #: [id number]: 1 FUTURE LUNG DIFFUSION CAPACITY (DLCO) [0617053] Order #: [id number]: [address] CHEST WO IVCON [3883670] Order #: [id number] FUTURE Prescriptions as of 12/11/2023 - levothyroxine [...] Status:Closed by RED ANDERSON on 11/29/23 Normal [facility] XR chest 2V*on 11-21-2023 XR chest 2V* [facility] [place] [address] [place] [address] XRay Report Signed Patient: Karuna Reynaga MR#: [id number] 289 : 1945 Acct:[id number] Age/Sex: 78 / F ADM Date: 11/21/23 Loc: XD Room: Type: [facility] Attending Dr: Jamal Alvarez DO Copies to: [...] Jorge Jr., D.O.11/21/2023 7:04 PM Dictation Location: [place] [address] Transcribed By: [facility] 11/21/231903 Dictated By: Frankie Jorge Jr, DO 11/21/231903 Signed By: 11/21/231903 Normal [facility] DEXA BONE DENSITYon 10-26-20 DEXA [...] T4 [Mass/Vol] 0.74 ng/dL Normal 0.61-1.12 [facility] Comment on above: Performed By: #### T 3F, T4F, TSH3 #### [address] Thyroid Stimulating Hormoneo n 10-16-2023 TSH Qn 0.51 m[IU]/L Normal 0.45-5.33 [facility] Comment on above: Result Comment: PERF ORMED BY: [place] [address] PATHOLOGIST MANAGER PHOTO EDMOND NORTH M.D. Performed By: #### T 3F, T4F, TSH3 #### [address] Thyrotropin [Units/volume] i n Serum or PlasmaOrdered By: Valdez Castro on 10-16-2023 TSH Qn 0.51 m[IU]/L 0.45-5.33 [facility] Thyroxine (T4) free [Mass/vo lume] in Serum or PlasmaOrdered By: Valdez Castro on 10-16-2023 Free T4 [Mass/Vol] 0.74 ng/dL 0.61-1.12 [facility] Triiodothyronine (T3) Freeon 10-16-2023 Triiodothyronine (T3) Free 3.08 pg/mL Normal 2.50-3.90 [facility] Comment on above: Result Comment: PERF ORMED BY: [place] [address] PATHOLOGIST MANAGER PHOTO EDMOND NORTH M.D. Performed By: #### T 3F, T4F, TSH3 #### [address] Triiodothyronine (T3) Free [ Mass/volume] in Serum or PlasmaOrdered By: Valdez Castro on 10-16-2023 Free T3 [Mass/Vol] 3.08 pg/mL 2.50-3.90 [facility] Free T4 (Free Thyroxine)on 0 07-16-2023 Free T4 [Mass/Vol] 0.75 ng/dL Normal 0.61-1.12 [facility] Comment on above: Performed By: #### T 3F, T4F, TSH3 #### [address] Thyroid Stimulating Hormoneo n 07-16-2023 TSH Qn 0.07 m[IU]/L Low 0.45-5.33 [facility] Comment on above: Result Comment: PERF ORMED BY: [place] [address] PATHOLOGIST MANAGER PHOTO EDMOND NORTH M.D. Performed By: #### T 3F, T4F, TSH3 #### [address] Triiodothyronine (T3) Freeon 07-16-2023 Triiodothyronine (T3) Free 2.81 pg/mL Normal 2.50-3.90 [facility] Comment on above: Result Comment: PERF ORMED BY: [place] [address] PATHOLOGIST MANAGER PHOTO EDMOND NORTH M.D. Performed By: #### T 3F, T4F, TSH3 #### [address] Basophils Auto (Bld) [#/Vol] Ordered By: Hermes Kennedy on 12-26-2022 Basophils (Bld) [#/Vol] 0.0 10*3/uL 0.0-0.2 [facility] Basophils/100 WBC Auto (Bld) Ordered By: Hermes Kennedy on 12-26-2022 Basophils/100 WBC (Bld) 0.5 % . [facility] Creatinine and Glomerular fi ltration rate.predicted panel (S/P/Bld)Ordered By: Hermes Kennedy on 12-26-2022 Creatinine [Mass/Vol] 0.61 mg/dL 0.44-1.03 [facility] Eosinophils Auto (Bld) [#/Vo l]Ordered By: Hermes Kennedy on 12-26-2022 Eosinophils (Bld) [#/Vol] 0.1 10*3/uL 0.0-0.45 [facility] Eosinophils/100 WBC Auto (Bl d)Ordered By: Hermes Kennedy on 12-26-2022 Eosinophils/100 WBC (Bld) 2.3 % . [facility] Erythrocyte distribution wid th Auto (RBC) [Ratio]Ordered By: Hermes Kennedy on 12-26-2022 Erythrocyte distribution width (RBC) [Ratio] 13.2 % 11.9-15.3 [facility] Estimated glomerular filtrat ion rate (GFR) non- AmericanOrdered By: Hermes Kennedy on 12-26-2022 GFR/1.73 sq M.predicted among non-blacks MDRD (S/P/Bld) [Vol rate/Area] > 60 mL/Min [facility] Hematocrit Auto (Bld) [Volum e fraction]Ordered By: Hermes Kennedy on 12-26-2022 Hematocrit (Bld) [Volume fraction] 38.3 % 34.0-46.4 [facility] Hemoglobin [Mass/volume] in BloodOrdered By: Hermes Kennedy on 12-26-2022 Hemoglobin (Bld) [Mass/Vol] 12.4 g/dL 11.8-15.4 [facility] Leukocytes [#/volume] correc rob for nucleated erythrocytes in Blood by Automated counOrdered By: Hermes Kennedy on 12-26-2022 WBC corrected for nucl RBC Auto (Bld) [#/Vol] 6.4 10*3/uL 3.8-11.6 [facility] Lymphocytes Auto (Bld) [#/Vo l]Ordered By: Hermes Kennedy on 12-26-2022 Lymphocytes (Bld) [#/Vol] 2.2 10*3/uL 1.00-4.8 [facility] Lymphocytes/100 WBC Auto (Bl d)Ordered By: Hermes Kennedy on 12-26-2022 Lymphocytes/100 WBC (Bld) 34.9 % . [facility] MCH Auto (RBC) [Entitic mass ]Ordered By: Hermes Kennedy on 12-26-2022 MCH (RBC) [Entitic mass] 29.5 pg 24.7-34.3 [facility] MCHC Auto (RBC) [Mass/Vol]Or dered By: Hermes Kennedy on 12-26-2022 MCHC (RBC) [Mass/Vol] 32.3 g/dL 32.0-35.0 Fir [facility] MCV Auto (RBC) [Entitic vol] Ordered By: Hermes Kennedy on 12-26-2022 MCV (RBC) [Entitic vol] 91.2 fL 80-100 [facility] Monocytes Auto (Bld) [#/Vol] Ordered By: Hermes Kennedy on 12-26-2022 Monocytes (Bld) [#/Vol] 0.5 10*3/uL 0.0-0.8 [facility] Monocytes/100 WBC Auto (Bld) Ordered By: Hermes Kennedy on 12-26-2022 Monocytes/100 WBC (Bld) 8.3 % . [facility] Neutrophils Auto (Bld) [#/Vo l]Ordered By: Hermes Kennedy on 12-26-2022 Neutrophils (Bld) [#/Vol] 3.5 10*3/uL 1.8-7.7 [facility] Neutrophils/100 WBC Auto (Bl d)Ordered By: Hermes Kennedy on 12-26-2022 Neutrophils/100 WBC (Bld) 54.0 % . [facility] No Panel InformationOrdered By: Hermes Kennedy on 12-26-2022 Estimated GFR () > 60 mL/Min [facility] Comment on above: GFR estimated refere nce range: According to KDOQI guidelines, <60 ml/min/1.73m2 is sufficient to diagnose a patient with chronic kidney disease. Pharmacy Creatinine Clearance (Chem N/A [facility] Nucleated erythrocytes [Pres ence] in Blood by Automated countOrdered By: Hermes Kennedy on 12-26-2022 Nucleated RBC Auto Ql (Bld) 0.2 /100{WBC} 0-0.5 [facility] Platelet mean volume Auto (B ld) [Entitic vol]Ordered By: Hermes Kennedy on 12-26-2022 Platelet mean volume (Bld) [Entitic vol] 8.5 fL 6.3-10.7 [facility] Platelets Auto (Bld) [#/Vol] Ordered By: Hermes Kennedy on 12-26-2022 Platelets (Bld) [#/Vol] 218 10*3/uL 150-450 [facility] RBC Auto (Bld) [#/Vol]Ordere d By: Hermes Kennedy on 12-26-2022 RBC (Bld) [#/Vol] 4.20 10*6/uL 3.60-5.00 [facility] Serum or plasma anion gap de terminationOrdered By: Hermes Kennedy on 12-26-2022 Anion gap [Moles/Vol] 10.0 mmol/L 6.0-15.0 [facility] Serum or plasma calcium marce urement (mass/volume)Ordered By: Hermes Kennedy on 12-26-2022 Calcium [Mass/Vol] 9.1 mg/dL 8.2-10.2 [facility] Serum or plasma chloride william surement (moles/volume)Ordered By: Hermes Kennedy on 12-26-2022 Chloride [Moles/Vol] 104 mmol/L 95-114 [facility] Serum or plasma glucose marce urement (mass/volume)Ordered By: Hermes Kennedy on 12-26-2022 Glucose [Mass/Vol] 80 mg/dL 70-100 [facility] Comment on above: ADA recommended refe rence rangeRandom Glucose Reference Range is dependent on time and content of last meal. Glucose of more than 200 mg/dL in a nonstressed, ambulatory subject supports the diagnosis of Diabetes Mellitus. Serum or plasma potassium me asurement (moles/volume)Ordered By: Hermes Kennedy on 12-26-2022 Potassium [Moles/Vol] 4.3 mmol/L 3.5-5.1 [facility] Serum or plasma sodium measu rement (moles/volume)Ordered By: Hermes Kennedy on 12-26-2022 Sodium [Moles/Vol] 139 mmol/L 136-146 [facility] Serum or plasma total carbon dioxide measurement (moles/volume)Ordered By: Hermes Kennedy on 12-26-2022 CO2 [Moles/Vol] 29.3 mmol/L 22.0-30.0 [facility] Serum or plasma urea nitroge n measurement (mass/volume)Ordered By: Hermes Kennedy on 12-26-2022 Urea nitrogen [Mass/Vol] 21 mg/dL 9-23 [facility] WBC Auto (Bld) [#/Vol]Ordere d By: Hermes Kennedy on 12-26-2022 WBC (Bld) [#/Vol] 6.4 10*3/uL 3.8-11.6 [facility] CULTURE URINEon 04-05-2022 CULTURE URINE Culture Observations: NO GROWTH. Normal [facility] Comment on above: Performed By: #### U RCX #### [facility] [address] [place] [address] Dr. Mojgan Daily UA RANDOM W/MICROSCOPICon BACTERIA NONE SEEN Normal NONE SEEN [facility] Comment on above: Performed By: #### U AMIC #### [facility] [address] [place] [address] [address] Mojgan Daily Bilirubin Ql (U) Negative Normal NEGATIVE [facility] Comment on above: Performed By: #### U AMIC #### [facility] [address] [place] [address] [address] Mojgan Daily CA OX CRYSTALS FEW Normal [facility] Comment on above: Performed By: #### U AMIC #### [facility] [address] [place] [address] [address] Mojgan Daily CAST NONE SEEN Normal NONE SEEN [facility] Comment on above: Performed By: #### U AMIC #### [facility] [address] [place] [address] [address] Mojgan Daily Clarity (U) CLEAR Normal CLEAR [facility] Comment on above: Performed By: #### U AMIC #### [facility] [address] [place] [address] [address] Mojgan Daily Color (U) LT. YELLOW Normal YELLOW [facility] Comment on above: Performed By: #### U AMIC #### [facility] [address] [place] [address] [address] Mojgan Daily Crystals LM Nom (Urine sed) SEEN Abnormal NONE SEEN [facility] Comment on above: Performed By: #### U AMIC #### [facility] [address] [place] [address] [address] Mojgan Daily Epithelial cells LM Ql (Urine sed) NONE SEEN Normal NONE SEEN /RARE [facility] Comment on above: Performed By: #### U AMIC #### [facility] [address] [place] [address] [address] Mojgan Daily Glucose Ql (U) Negative Normal NEGATIVE [facility] Comment on above: Performed By: #### U AMIC #### [facility] [address] [place] [address] [address] Mojgan Daily Hemoglobin Ql (U) Negative Normal NEGATIVE [facility] Comment on above: Performed By: #### U AMIC #### [facility] [address] [place] [address] [address] Mojgan Daily Ketones Ql (U) Negative Normal NEGATIVE [facility] Comment on above: Performed By: #### U AMIC #### [facility] [address] [place] [address] [address] Mojgan Daily LEUKOCYTES SMALL Abnormal NEGATIVE [facility] Comment on above: Performed By: #### U AMIC #### [facility] [address] [place] [address] [address] Mojgan Daily MUCOUS NONE SEEN Normal NONE SEEN [facility] Comment on above: Performed By: #### U AMIC #### [facility] [address] [place] [address] [address] Mojgan Daily Nitrite Ql (U) Negative Normal NEGATIVE [facility] Comment on above: Performed By: #### U AMIC #### [facility] [address] [place] [address] [address] Mojgan Daily pH (U) 5.0 [pH] Normal 5-9 [facility] Comment on above: Performed By: #### U AMIC #### [facility] [address] [place] [address] [address] Mojgan Daily RBC NONE SEEN Abnormal 0-2 [facility] Comment on above: Performed By: #### U AMIC #### [facility] [address] [place] [address] [address] Mojgan Daily SPEC GRAVITY 1.025 Normal 1.005-<=1.[address] [facility] Comment on above: Performed By: #### U AMIC #### [facility] [address] [place] [address] Dr. Mojgan Daily UA PROTEIN Negative Normal NEGATIVE/ TRACE [facility] Comment on above: Performed By: #### U AMIC #### [facility] [address] [place] [address] [address] Mojgan Daily URIC ACID CRYSTALS RARE Normal [facility] Comment on above: Performed By: #### U AMIC #### [facility] [address] [place] [address] [address] Mojgan Daily Urobilinogen Qn (U) 0.2 {Amanuel'U}/dL Normal 0.2 - 1. 0 [facility] Comment on above: Performed By: #### U AMIC #### [facility] [address] [place] [address] Dr. Mojgan Daily WBC 2-5 Abnormal NONE SEEN [facility] Comment on above: Performed By: #### U AMIC #### [facility] [address] [place] [address] Dr. Mojgan Daily MG MAMM SCREEN 3D RUPAL CADon 03-27-2022 MG MAMM SCREEN 3D RUPAL CAD Patient: KARUNA REYNAGA Exam Date: 03/27/2022 : 1945 Gender:F Ordering : DR JAMAL ALVAREZ Admission #: [id number] Family : Order #: [id number] CLICK HERE TO VIEW EXAM RADIOLOGY REPORT [...] Treatments None Family Cancers None LOCATION: [facility] BREAST COMPOSITION: Almost entirely fatty. FINDINGS: DIAGNOSTIC [...] MD on 03/27/2022 at 14:10 Normal [facility] Comprehensive metabolic 2000 panelon 02-03-2022 Albumin [Mass/Vol] 4.0 g/dL 3.9 - 4.9 g/dL [facility] ALP [Catalytic activity/Vol] 55 U/L 34 - 123 U/L [facility] ALT [Catalytic activity/Vol] 16 U/L 7 - 38 U/L [facility] Anion gap [Moles/Vol] 10 mmol/L 9 - 18 mmol/L [facility] AST [Catalytic activity/Vol] 16 U/L 13 - 35 U/L [facility] Bilirubin [Mass/Vol] 0.3 mg/dL 0.2 - 1 .3 mg/dL [facility] Calcium [Mass/Vol] 9.4 mg/dL 8.5 - 10. 2 mg/dL [facility] Chloride [Moles/Vol] 107 mmol/L High 97 - 10 5 mmol/L [facility] CO2 [Moles/Vol] 28 mmol/L 22 - 30 mmol/L [facility] Creatinine [Mass/Vol] 0.81 mg/dL 0.58 - 0.96 mg/dL [facility] Estimated Glomerular Filtration Rate 75 mL/min/1.73m >=60 mL/min/1.73m [facility] Glucose [Mass/Vol] 102 mg/dL High 74 - 99 mg/dL [facility] Potassium [Moles/Vol] 4.5 mmol/L 3.7 - 5.1 mmol/L [facility] Protein [Mass/Vol] 6.7 g/dL 6.3 - 8.0 g/dL [facility] Sodium [Moles/Vol] 145 mmol/L High 136 - 144 mmol/L [facility] Urea nitrogen [Mass/Vol] 22 mg/dL High 7 - 21 mg/d L [facility] Office Visit (Cardiology)on 10-21-2021 Follow-up [...] Weight Tips; Status:Complete - Retrospective Authorization; Done: [id number] Pre-operative cardiovascular examination IO EKG Electrocardiogram- 12 Lead; Status:Complete; Done: [id number] SocHx: Former smoker Tobacco Use Screening; Status:Complete; Done: [id number] Patient Instructions Follow up as needed only [...] complaint. Vitals Vital Signs Recorded: 21Oct2021 11:08AMRecorded: [id number] 11:07AM Teefohqf626, LUE, Pwbhqar113, LUE, Sitting [id number], LUE, Zzzbxct49, LUE, Sitting Heart Rate58, Apical Height4 ft 10 in Poruui206 lb BMI (more content not included)... Normal [employer] Tobacco Screening.on 021 Fall risk assessment a) No falls within the last year [facility] [employer] 250 DO Work Phone: Tobacco use status [facility] b) No [facility] [employer] 250 DO Work Phone: XR Chest [...] by Kole Nino on 10/13/2021 1530 Normal [facility] [employer] Vital Signs Date Time Vital Sign Value Performing Clinician Facility 03-10-2024 13:13 Body height 143.5 cm Judit Lora MD Work Phone: [facility] 03-10-2024 13:130400 Body mass index (BMI) [Ratio] 32.2 kg/m2 Judit Lora MD Work Phone: [facility] 03-10-2024 13:130400 Body weight 66.32 kg Judit Lora MD Work Phone: [facility] 03-10-2024 13:13-0400 Diastolic blood pressure 78 mm[Hg] Judit Lora MD Work Phone: [facility] 03-10-2024 13:13-0400 Heart rate 74 /min Judit Lora MD Work Phone: [facility] 03-10-2024 13:13-0400 Systolic blood pressure 118 mm[Hg] Judit Lora MD Work Phone: [facility] 02-21-2024 10:45-0400 Body height 142.24 cm DO Jamal Alvarez Work Phone: [facility] 02-21-2024 10:45-0400 Body mass index (BMI) [Ratio] 33.8 kg/m2 DO Jamaltaya Alvarez Work Phone: [facility] 02-21-2024 10:45-0400 Body weight 68.49 kg DO Jamal Antonio Work Phone: [facility] 02-21-2024 10:45-0400 Diastolic blood pressure 79 mm[Hg] DO Jamal Antonio Work Phone: [facility] 02-21-2024 10:45-0400 Heart rate 65 /min DO Jamal Antonio Work Phone: [facility] 02-21-2024 10:45-0400 Systolic blood pressure 131 mm[Hg] DO Jamal Antonio Work Phone: [facility] 02-13-2024 18:46-0400 Body height 142.24 cm DO Jamal Antonio Work Phone: [facility] 02-13-2024 18:46-0400 Body mass index (BMI) [Ratio] 33.9 kg/m2 DO Jamal Alvarez Work Phone: [facility] 02-13-2024 18:46-0400 Body temperature 97.1 [degF] DO Jamal Alvarez Work Phone: [facility] 02-13-2024 18:46-0400 Body weight 68.6 kg DO Jamal Alvarez Work Phone: [facility] 02-13-2024 18:46-0400 Diastolic blood pressure 80 mm[Hg] DO Jamal Alvarez Work Phone: [facility] 02-13-2024 18:46-0400 Heart rate 74 /min DO Jamal Alvarez Work Phone: [facility] 02-13-2024 18:46-0400 Respiratory rate 18 /min DO Jamal Alvarez Work Phone: [facility] 02-13-2024 18:46-0400 SaO2% (BldA) [Mass fraction] 94 % DO Jamal Alvarez Work Phone: [facility] 02-13-2024 18:46-0400 Systolic blood pressure 110 mm[Hg] DO Jamal Alvarez Work Phone: [facility] 12-28-2023 13:29-0500 Body temperature 97.59 [degF] Ubaldo Dubose MD Work Phone: [facility] 12-28-2023 13:29-0500 Body weight 79.38 kg Ubaldo Dubose MD Work Phone: [facility] 12-28-2023 13:29-0500 Diastolic blood pressure 65 mm[Hg] Ubaldo Dubose MD Work Phone: [facility] 12-28-2023 13:29-0500 Heart rate 67 /min Ubaldo Dubose MD Work Phone: [facility] 12-28-2023 13:29-0500 Respiratory rate 16 /min Ubaldo Dubose MD Work Phone: [facility] 12-28-2023 13:29-0500 SaO2% (BldA) [Mass fraction] 97 % Ubaldo Dubose MD Work Phone: [facility] 12-28-2023 13:29-0500 Systolic blood pressure 137 mm[Hg] Ubaldo Dubose MD Work Phone: [facility] 10-21-2021 11:08-0500 Diastolic blood pressure 70 mm[Hg] Jamal Alvarez Work Phone: [facility] [place] 250 DO Work Phone: 10-21-2021 11:08-0500 Systolic blood pressure 132 mm[Hg] Jamal Alvarez Work Phone: [facility] [place] 250 DO Work Phone: 10-21-2021 11:07-0500 Body height 147.32 cm Jamal Alvarez Work Phone: [facility] 250 DO Work Phone: 10-21-2021 11:07-0500 Body mass index (BMI) [Ratio] 30.31 kg/m2 Jamal Alvarez Work Phone: [facility] [place] 250 DO Work Phone: 10-21-2021 11:07-0500 Body surface area Derived from formula 1.59 m2 Jamal Alvarez Work Phone: [facility] 250 DO Work Phone: 10-21-2021 11:07-0500 Body weight 65.77 kg Jamal Alvarez Work Phone: [facility] 250 DO Work Phone: 10-21-2021 11:07-0500 Diastolic blood pressure 70 mm[Hg] Jamal Alvarez Work Phone: [facility] 250 DO Work Phone: 10-21-2021 11:07-0500 Heart rate 58 /min Jamal Alvarez Work Phone: [facility] 250 DO Work Phone: 10-21-2021 11:07-0500 Systolic blood pressure 132 mm[Hg] Jamal Alvarez Work Phone: [facility] 250 DO Work Phone: Encounters Encounter Date Encounter Type Care Provider Facility Start: 03-10-2024 End: 03-10-2024 ambulatory JAMAL ALVAREZ Not Available Start: 03-10-2024 End: 03-10-2024 ambulatory [facility] Ambulatory Start: 03-10-2024 End: 03-10-2024 Office consultation new/estab patient 60 min Judit Lora MD Work Phone: [facility] Comment on above: Shortness of breath; Hyperlipidemia, unspecified hyperlipidemia type; Traumatic brain injury, with unknown loss of consciousness status, sequela ([facility]-HCC); BMI 32.0-32.9,adult; Former smoker; History of traumatic brain injury; Cough, unspecified type; Diabetes mellitus type II, non insulin dependent (Multi); Dysphasia; Abnormal lung sounds; Bronchiectasis without complication (Multi); Medication course changed Start: 03-03-2024 End: 03-03-2024 ambulatory Ubaldo Dubose Facility:[facility] Start: 03-03-2024 End: 03-03-2024 ambulatory Ubaldo Dubose MD Work Phone: Pulmonology [facility] Comment on above: Bronchiectasis witho ut complication (HCC) (Primary Dx); Aspiration pneumonitis (HCC); Traumatic brain injury with loss of consciousness, sequela (HCC) Start: 03-03-2024 End: 03-03-2024 Telemedicine consultation with patient Ubaldo Dubose MD Work Phone: [facility] Start: 02-26-2024 Telephone encounter Ubaldo dawn MD Work Phone: [facility] Comment on above: Appointment Received Outside Med ical Records Start: 02-25-2024 End: 02-25-2024 ambulatory Jose Luis Lockhart Facility:[facility] Start: 02-25-2024 End: 02-25-2024 Patient encounter procedure DO Jamaltaya Alvarez Work Phone: [facility] [place] Work Phone: Start: 02-25-2024 End: 02-25-2024 ambulatory DO Jamal Alvarez Work Phone: [facility] Work Phone: Start: 02-22-2024 End: 02-23-2024 ambulatory ALICE FROST Not Available Start: 02-22-2024 End: 02-22-2024 ambulatory JAMAL ALVAREZ Not Available Start: 02-22-2024 Chart abstracting Yuridia Bourgeois [facility] Comment on above: Home nebulizer order Start: 02-21-2024 Registered Recurring DO Shelby Alvarez Work Phone: [facility] Start: 02-21-2024 End: 02-21-2024 ambulatory DO Jamaltaya Alvarez Work Phone: [facility] Work Phone: Start: 02-21-2024 End: 02-21-2024 Patient encounter procedure DO Jamal Alvarez Work Phone: [facility] Gastroenterology Work Phone: Start: 02-19-2024 Registered Recurring DO Shelby Alvarez Work Phone: [facility] Start: 02-15-2024 Orders Only Ubaldo Peres rn, MD Work Phone: Pulmonary Medicine Comment on above: Bronchiectasis witho ut complication (HCC) (Primary Dx) Start: 02-13-2024 End: 02-13-2024 ambulatory Nallely Pearce Facility:[facility] Start: 02-13-2024 End: 02-13-2024 ambulatory DO Jamal Alvarez Work Phone: [facility] Work Phone: Start: 02-13-2024 End: 02-13-2024 Patient encounter procedure DO Jamal Alvarez Work Phone: [facility] [place] Work Phone: Start: 02-13-2024 End: 02-13-2024 ambulatory IRVING DUVALL Not Available Start: 02-12-2024 Registered Recurring DO Shelby Alvarez Work Phone: [facility] Start: 01-23-2024 End: 01-23-2024 ambulatory Jamal Antonio Facility:[facility] Start: 01-23-2024 End: 01-23-2024 ambulatory DO Jamal Alvarez Work Phone: [facility] Work Phone: Start: 01-23-2024 End: 01-23-2024 Patient encounter procedure DO Jamal Alvarez Work Phone: [facility] Work Phone: Start: 01-22-2024 Telephone encounter Ubaldo dawn MD Work Phone: Pulmonary Medicine Comment on above: [facility] Start: 01-14-2024 Registered Recurring DO Shelby Alvarez Work Phone: [facility] Start: 12-28-2023 End: 12-28-2023 ambulatory Ubaldo Dubose Facility:[facility] Start: 12-28-2023 End: 12-28-2023 Patient encounter procedure Ubaldo Dubose MD Work Phone: Pulmonary Medicine Comment on above: Bronchiectasis witho ut complication (HCC) (Primary Dx); Aspiration pneumonitis (HCC); Traumatic brain injury with loss of consciousness, sequela (HCC) Start: 12-27-2023 End: 12-27-2023 ambulatory DEE LEAL Facility:[facility] Start: 12-25-2023 End: 12-25-2023 ambulatory DEE KAYCEE Pul[facility] Lab Comment on above: Spirometry Start: 12-25-2023 End: 12-25-2023 Patient encounter procedure Pulm Lab Nikhil Work Phone: [facility] Start: 12-05-2023 End: 12-05-2023 ambulatory JAMAL ALVAREZ Not Available Start: 11-21-2023 End: 11-21-2023 ambulatory Jamal Alvarez Facility:[facility] Start: 11-21-2023 End: 11-21-2023 ambulatory DO Jamal Alvarez Work Phone: [facility] Work Phone: Start: 11-21-2023 End: 11-21-2023 Patient encounter procedure DO Jamal Alvarez Work Phone: [facility]-XRay [facility] Work Phone: Start: 10-26-2023 End: 10-27-2023 ambulatory JAMAL ALVAREZ Not Available Start: 10-16-2023 End: 10-17-2023 ambulatory JESUS ROBERSON Not Available Start: 10-16-2023 End: 10-16-2023 ambulatory Jamal Alvarez Facility:[facility] Start: 10-16-2023 End: 10-16-2023 ambulatory DO Jamal Alvarez Work Phone: [facility] Work Phone: Start: 10-16-2023 End: 10-16-2023 Patient encounter procedure DO Jamal Alvarez Work Phone: [facility] [place] Work Phone: Start: 07-16-2023 End: 07-16-2023 ambulatory Jamal Alvarez Facility:[facility] Start: 02-10-2023 End: 02-10-2023 ambulatory BRUCE DIAB . Facility: Start: 12-26-2022 End: 12-26-2022 ambulatory DO Jamal Alvarez Work Phone: [facility] Work Phone: Start: 12-26-2022 End: 12-26-2022 Patient encounter procedure DO Jamal Alvarez Work Phone: [facility] Work Phone: Start: 07-26-2022 Orders Only [...] patient 60 min Jamal Alvarez Work Phone: [facility] 250 DO Work Phone: Start: 10-21-2021 Office outpatient ne w 45 minutes Jamal Alvarez Work Phone: [facility] 600 DO Work Phone: Patient encounter status Jamal Alvarez Work Phone: [facility] 250 DO Work Phone: Procedures Date Procedure Procedure Detail Performing Clinician Start: 03-10-2024 ECG 12-LEAD JUDIT GARCIA Start: 03-10-2024 Ecg routine ecg w/le ast [...] Author Start: 02-19-2027 Diabetes Screening Diabetes Screenin [facility] Start: 10-26-2025 Screening for osteoporosis Bone Density Scan [facility] Start: 07-28-2025 Diabetes Screening Diabetes Screenin [facility] Start: 02-21-2025 Thyroid stimulating hormone measurement TSH Level [facility] Start: 02-19-2025 Lipid panel Lipid Panel [facility] Start: 02-03-2025 DIABETES SCREEN DIABETES SCREEN [facility] Start: 06-12-2024 End: 06-12-2024 Patient encounter procedure 06/12/2024 2:45 PM EDT Office Visit [facility] [address] [facility] [address] [place] [address] Judit Lora MD [address] [facility] [address] [place], [place] [id number] [facility] Start: 05-05-2024 End: 05-05-2024 Patient encounter procedure 05/05/2024 3:30 PM EDT Office Visit Pulmonology [facility] [address] [address] Ubaldo Dubose MD [address] [place] [address] Est pt scheduled per Dr. Dubose 4mo fu pft's Pulmonology [facility] Comment on above: Est pt scheduled per Dr. Dubose 4mo fu pft's Start: 04-30-2024 End: 04-30-2024 ambulatory Pulmonary Lab Comment on above: Est pt scheduled per Dr. Dubose 4mo fu pft's Start: 04-16-2024 End: 04-16-2024 Patient encounter procedure 04/16/2024 12:30 PM EDT Appointment [facility] [address] [address] [facility] Start: 03-17-2024 End: 03-10-2025 Basic metabolic 2000 panel - Serum or Plasma Basic Metabolic Panel Lab Routine Shortness of breath Medication course changed Expected: 03/17/2024 (Approximate), Expires: 03/10/2025 [facility] Work Phone: Comment on above: Expected: 03/17/2024 (Approximate), Expires: 03/10/2025 Start: 03-10-2024 End: 03-10-2025 Natriuretic peptide B [Mass/volume] in Blood B-Type Natriuretic Peptide Lab Routine Shortness of breath Cough, unspecified type Abnormal lung sounds Expected: 03/10/2024 (Approximate), Expires: 03/10/2025 [facility] Work Phone: Comment on above: Expected: 03/10/2024 (Approximate), Expires: 03/10/2025 Start: 03-10-2024 End: 03-10-2026 US Heart Transthoracic Transthoracic Echo Complete Echocardiography Routine Shortness of breath Cough, unspecified type Abnormal lung sounds Expected: 03/10/2024 (Approximate), Expires: 03/10/2026 [facility] Work Phone: Comment on above: Expected: 03/10/2024 (Approximate), Expires: 03/10/2026 Start: 03-03-2024 End: 03-03-2024 Follow-up encounter 03/03/2024 12:30 PM EDT [facility] Pulmon[facility] [address] [place] [address] Ubaldo Dubose MD [address] [place] [address] follow up Pulmonology [facility] Comment on above: follow up Start: 11-05-2023 Advance Directive Discussion Advance Directive Discussion [facility] Start: 11-05-2023 Behavioral Health Screening Behavioral Health Screening [facility] Start: 11-05-2023 Depression Assessment Depression Ass essment [facility] Start: 07-06-2023 COVID-19 Vaccine () COVID-19 Vaccine () [facility] Start: 07-06-2023 Covid-19 Vaccine () Covid-19 Vaccine () [facility] Start: 10-27-2022 Hemoglobin A1c measurement Diabetes: Hemoglobin A1C [facility] Start: 07-26-2022 End: 09-25-2022 CBC W Auto Differential panel - Blood CBC + DIFF Lab Routine Well controlled type 2 diabetes mellitus with neurological manifestations (HCC) Unspecified hypothyroidism Expected: 07/26/2022, Expires: 09/25/2022 [facility] Work Phone: Comment on above: Expected: 07/26/2022 , Expires: 09/25/2022 Start: 07-26-2022 End: 09-25-2022 Comprehensive metabolic 2000 panel - Serum or Plasma COMP METABOLIC PANEL Lab Routine Well controlled type 2 diabetes mellitus with neurological manifestations (HCC) Unspecified hypothyroidism Expected: 07/26/2022, Expires: 09/25/2022 [facility] Work Phone: Comment on above: Expected: 07/26/2022 , Expires: 09/25/2022 Start: 07-26-2022 End: 09-25-2022 Hepatic function 2000 panel - Serum or Plasma HEPATIC FUNCTION PNL Lab Routine Dermatophytosis of nail Expected: 07/26/2022, Expires: 09/25/2022 [facility] Work Phone: Comment on above: Expected: 07/26/2022 , Expires: 09/25/2022 Start: 07-26-2022 End: 09-25-2022 Lipid 1996 panel - Serum or Plasma LIPID PANEL BASIC Lab Routine Well controlled type 2 diabetes mellitus with neurological manifestations (HCC) Unspecified hypothyroidism Expected: 07/26/2022, Expires: 09/25/2022 [facility] Work Phone: Comment on above: Expected: 07/26/2022 , Expires: 09/25/2022 Start: 07-26-2022 End: 09-25-2022 Thyrotropin [Units/volume] in Serum or Plasma TSH BLD Lab Routine Well controlled type 2 diabetes mellitus with neurological manifestations (HCC) Unspecified hypothyroidism Expected: 07/26/2022, Expires: 09/25/2022 [facility] Work Phone: Comment on above: Expected: 07/26/2022 , Expires: 09/25/2022 Start: 07-06-2022 Influenza vaccination INFLUENZA (#1) [facility] Start: 02-03-2022 End: 04-05-2022 ALBUMIN/CREAT RATIO RND UR [facility] Work Phone: Comment on above: Expected: 02/03/2022 , Expires: 04/05/2022 Start: 02-03-2022 End: 04-05-2022 LIPID PANEL BASIC [facility] Work Phone: Comment on above: Expected: 02/03/2022 , Expires: 04/05/2022 Start: 02-03-2022 End: 04-05-2022 Thyrotropin [Units/volume] in Serum or Plasma [facility] Work Phone: Comment on above: Expected: 02/03/2022 , Expires: 04/05/2022 Start: 02-03-2022 End: 04-05-2022 Urinalysis complete panel - Urine [facility] Work Phone: Comment on above: Expected: 02/03/2022 , Expires: 04/05/2022 Start: 11-05-2021 ADVANCE DIRECTIVE DISCUSSION ADVANCE DIRECTIVE DISCUSSION [facility] Start: 11-05-2021 COVID-19 VACCINE (4 - Booster for Moderna series) COVID-19 VACCINE (4 - Booster for Moderna series) [facility] Start: 08-04-2021 Pneumococcal Vaccine : 65+ (2 of 2 - PCV) Pneumococcal Vaccine: 65+ (2 of 2 - PCV) [facility] Start: 2011 BONE DENSITY BONE DENSITY [facility] Start: 2011 PNEUMOCOCCAL: 65+ (1 - PCV) PNEUMOCOCCAL: 65+ (1 - PCV) [facility] Start: 2011 PNEUMOVAX AGE 65 AND OVER WITH 5YR LOOKBACK (#1) PNEUMOVAX AGE 65 AND OVER WITH 5YR LOOKBACK (#1) [facility] Start: 2006 RSV patient s and/or patients aged 60+ years (1 - 1-dose 60+ series) RSV patients and/or patients aged 60+ years (1 - 1-dose 60+ series) [facility] Start: 2006 RSV Vaccine (1 - 1-d ose 60+ series) RSV Vaccine (1 - 1-dose 60+ series) [facility] Start: 1996 SHINGRIX VACCINE (1 of 2) SHINGRIX VACCINE (1 of 2) [facility] Start: 1968 DTaP/Tdap/Td Vaccine s (1 - Tdap) DTaP/Tdap/Td Vaccines (1 - Tdap) [facility] Start: 1965 Urine microalbumin profile [facility] Start: 1965 Urine screening for protein Diabetes: Urine Protein Screening [facility] Start: 1964 HEPATITIS C SCREENING HEPATITIS C [facility] Start: 1964 Hepatitis C screening Hepatitis C [facility] Start: 1958 Adult depression screening assessment DEPRESSION SCREENING [facility] Start: 1956 Diabetic foot examination Diabetes: Foot Exam [facility] Start: 1956 Glaucoma screening Diabetes: R etinopathy Screening [facility] Start: 1946 Medicare Annual Wellness Visit Medicare Annual Wellness Visit (AWV) [facility] End: 01-26-2025 LUNG DIFFUSION CAPACITY (DLCO) LUNG DIFFUSION CAPACITY (DLCO) PFT Routine Bronchiectasis without complication (HCC) 1 Occurrences starting 12/28/2023 until 01/26/2025 [facility] Work Phone: Comment on above: 1 Occurrences starti ng 12/28/2023 until 01/26/2025 End: 01-26-2025 SPIROMETRY BASELINE ONLY SPIROMETRY BASELINE ONLY PFT Routine Bronchiectasis without complication (HCC) 1 Occurrences starting 12/28/2023 until 01/26/2025 [facility] Work Phone: Comment on above: 1 Occurrences starti ng 12/28/2023 until 01/26/2025 URINE MICROALBUMIN B/O URINE ABAD ROALBUMIN B/O Lab Routine Hypothyroidism, adult 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) Mixed hyperlipidemia Ordered: 02/03/2022 [facility] Work Phone: Comment on above: Ordered: 02/03/2022 XR Chest 2 Views [facility] Immunizations Immunization Date Immunization Notes Care Provider Darwin crawford 08-23-2023 influenza (aIIV4) vaccine, age 65+ yr, quadrivalent, PF (FLUAD QUAD) Ubaldo Dubose MD Work Phone: [facility] 11-10-2022 COVID-19 mRNA Bivale nt Booster (Moderna) DO Jamal Alvarez Work Phone: [facility] 08-17-2022 influenza, high dose seasonal, preservative-free Ubaldo Dubose MD Work Phone: [facility] 05-30-2022 zoster vaccine recombinant Ubaldo Dubose MD Work Phone: [facility] 02-28-2022 zoster vaccine recombinant Ubaldo uDbose MD Work Phone: [facility] 08-16-2021 influenza, high dose seasonal, preservative-free Jamal Alvarez Work Phone: [facility] 07-06-2021 Moderna COVID-19 Vac cine 100 MCG/0.5ML Intramuscular Suspension Jamal Alvarez Work Phone: [facility] 02-03-2021 Moderna COVID-19 Vac cine 100 MCG/0.5ML Intramuscular Suspension Jamal Mylesman Work Phone: [facility] 01-06-2021 Moderna COVID-19 Vac cine 100 MCG/0.5ML Intramuscular Suspension Jamal Adrian MylesAntonio Work Phone: [facility] 08-04-2020 pneumococcal polysaccharide vaccine, 23 valent Jamal Alvarez Work Phone: [facility] 07-15-2020 AS03 adjuvant Ubaldo Dubose MD Work Phone: [facility] 07-15-2020 Seasonal trivalent influenza vaccine, adjuvanted, preservative free Jamal Alvarez Work Phone: [facility] 09-10-2019 AS03 adjuvant Ubaldo Dubose MD Work Phone: [facility] 09-10-2019 Seasonal trivalent influenza vaccine, adjuvanted, preservative free Jamal Alvarez Work Phone: [facility] 07-25-2018 AS03 adjuvant Ubaldo Dubose MD Work Phone: [facility] 07-25-2018 Seasonal trivalent influenza vaccine, adjuvanted, preservative free Jamal Alvarez Work Phone: [facility] 10-22-2017 influenza, injectabl e, quadrivalent, preservative free Jamal Alvarez Work Phone: [facility] 08-17-2016 influenza, high dose seasonal, preservative-free Jamal Alvarez Work Phone: [facility] 11-20-2014 pneumococcal conjuga te vaccine, 13 valent Judit Lora MD Work Phone: [facility] Work Phone: Payers Date Payer Category Payer Medicare AETNA MEDICARE A ETNA MEDICARE PPO [id number] 2021-Present [phone] [address] [place] [address] PPO [id number] 2021 Medicare [id number] 1959 Medicare [id number] 1959 Private Health Insurance [id number] 1945 Unknown [id number] 2.16.840.1.953750.3.579.2.5 93 1946 Unknown [id number] 2.16.840.1.221081.3.579.2.5 93 1946 Unknown [id number] 2.16.840.1.244803.3.579.2.5 93 1946 Unknown [id number] 2.16.840.1.576291.3.579.2.1 259 1946 Unknown [id number] 2.16.840.1.733860.3.579.2.1 259 1946 Unknown [id number] 2.16.840.1.619184.3.579.2.1 259 1946 Unknown [id number] 2.16.840.1.164084.3.579.2.1 259 1946 Unknown [id number] 2.16.840.1.426701.3.579.2.1 259 1946 Unknown [id number] 2.16.840.1.499570.3.579.2.1 259 1946 Unknown [id number] 2.16.840.1.945089.3.579.2.1 259 1946 Unknown [id number] 2.16.840.1.314930.3.579.2.1 259 1946 Unknown [id number] 2.16.840.1.744552.3.579.2.1 259 1946 Unknown [id number] 2.16.840.1.573889.3.579.2.1 244 Medicaid [id number] Medicare [id number] Medicare Medicare [id number] Private Health Insurance [id number] Private Health Insurance Aetna MCR PFFS M EBVPLKX [id number] Self-pay Self Pay [id number] Unknown [id number] Unknown [id number] Unknown AETNA Unknown HCAP/HFA/FAP Active [id number] Social History Date Type Detail Facility Tobacco smoking stat [facility] Unknown if ever smoked [facility] Start: 1945 Sex Assigned At Female [facility] Start: 06-29-2020 End: 03-10-2024 No caffeine use No caffeine use [facility] DO Work Phone: Comment on above: Quit 1979; Start: 06-29-2020 End: 03-10-2024 Tobacco smoking status NHIS Ex-smoker [facility] End: 11-05-1979 History of tobacco use Current smoker [facility] End: 11-05-1979 History of tobacco use Cigarette Smoker [facility] Start: 06-29-2020 End: 12-28-2023 Alcohol intake Current non-drinker of alcohol (finding) [facility] Start: 1945 Sex Assigned At Not on file [facility] Start: 06-29-2020 End: 03-10-2024 Tobacco use and exposure Smokeless tobacco non-user [facility] Start: 06-29-2020 End: 03-10-2024 Tobacco use panel [facility] National Score (1-100), lower number is lower risk Not on file [facility] Start: 03-10-2024 Alcoholic beverage intake Lifetime non-drinker (finding) [facility] Work Phone: Start: 02-29-2024 End: 03-10-2024 Exposure to SARS-CoV-2 (event) Not sure [facility] Medical Equipment Procedure Code Equipment Code Equipment Origin al Text Equipment Identifier Dates Implantable incontinence-contro l electrical stimulation system [id number] FDA Start: 10-25-2021 [id number] [facility] Start: 10-25-2021 USE TO TEST ONCE DAILY EVERY MORNING. [id number] Start: 10-14-2023 Comment on above: USE TO [...] injury. Daughter is the medical power of private equity associate. Patient is a full code at this [...] TIMES A DAY TRUEplus Lancets 33 gauge [facility] USE TO TEST ONCE DAILY EVERY MORNING. [...] than 60, hemoglobin 12.5 hematocrit 40 platelets [id number] Assessment/Plan Diagnoses and all orders for this [...] with unknown loss of consciousness status, sequela ([facility]) BMI 32.0-32.9,adult Former smoker History of traumatic [...] February 2024-diffuse groundglass interstitial prominence basilar atelectasis/scarring 34-ygox-rcfa history of smoking quit 1979 PFTs not [...] discussion and plan. documented in this encounter [facility] Work Phone: 03-10-2024 Instructions Raulito Draper [...] of your visit. documented in this encounter [facility] Work Phone: 03-03-2024 Note HNO ID: [id number] Author: UBALDO DUBOSE MD Service: ? Author Type: Physician Type: Progress Notes Filed: 03/03/2024 13:19 Note Text: VIRTUAL VISIT PROGRESS NOTE This is a virtual visit using T[employer] Video Visit. It required patient-provider interaction for the medical decision making as documented below. I have communicated my name and active licensure. The patient's identity and physical location were verified at the time of this visit. Either the patient or their legal branch customer service representative has been informed of the risks [...] Cigarettes Quit date: (more content not included)... [facility] 03-03-2024 History of Presen t illness Narrative VIRTUAL VISIT PROGRESS NOTE This is a virtual visit using [employer] Zoom Video Visit. It required patient-provider interaction for the medical decision making as documented below. I have communicated my name and active licensure. The patient's identity and physical location were verified at the time of this visit. Either the patient or their legal branch customer service representative has been informed of the risks [...] in 3 months Ubaldo Dubose MD Pager: [phone] March 02, 2024 12:06 PM documented in this encounter [facility] 02-26-2024 Telephone encounter Note Received outside imaging reports via electronic fax. Uploaded to scanned documents for provider to review. [facility] 02-26-2024 Miscellaneous Notes Received outside imaging reports via electronic fax. Uploaded to scanned documents for provider to review. documented in this encounter [facility] 02-26-2024 Telephone encounter Note Patient is scheduled on 03/03/2024 at 12:30pm. [facility] 02-26-2024 Miscellaneous Notes Patient is scheduled on 03/03/2024 at 12:30pm. Called patient to offer virtual appointment with Dr. Dubose on 03/03/2024 at 12:30pm. No answer, unable to leave voicemail. documented in this encounter [facility] 02-26-2024 Telephone encounter Note Called patient to offer virtual appointment with Dr. Dubose on 03/03/2024 at 12:30pm. No answer, unable to leave voicemail. [facility] 02-22-2024 Note HNO ID: [id number] Author: YURIDIA BOURGEOIS RRT Service: ? Author Type: Registered Resp Therapist Type: Progress Notes Filed: 02/22/2024 13:48 Note Text: [facility] unable to provide nebulizer. Order and office notes faxed to [facility] [employer] [phone], ph [phone]. Yuridia Bourgeois RRT [facility] 02-22-2024 History of Presen t illness Narrative [facility] unable to provide nebulizer. Order and office notes faxed to [employer] [phone], ph [phone]. Yuridia Bourgeois GAS COMBUSTION ENGINEER documented in this encounter [facility] 02-21-2024 Evaluation note Authored February [...] dysphagia then determine the need for PPI [facility] Work Phone: 1(194) 608-904804-12-2024 NoteHNO ID: [id number] Author: DARREL CARRANZA RRT Service: ? Author Type: Registered Resp Therapist Type: Progress Notes Filed: 02/15/2024 17:02 Note Text: Faxed nebulizer rx [facility] in [place] ph [phone], fax [phone] [facility] History of Present illness Narrative* Darrel Carranza RRT - 02/15/2024 5:00 PM EDT Faxed nebulizer rx to [facility] in [place] ph [phone], fax [phone] Darrel Carranza RRT documented in [facility] encounter[facility] Miscellaneous Notes* Telephone Encounter - John Madison - 01/22/2024 2:46 PM EDT Images from the original note were not included. Imported external notification of equipment delivery from [employer], dated 01/16/2024. Please allow time delay for documents to appear in [employer] (Scanned Documents Tab). Images can take up to 24 hours to appear in [employer]. documented in this encounter[facility]02-[facility]-2024 NoteHNO ID: [id number] Author: UBALDO DUBOSE MD Service: ? Author Type: Physician Type: Progress Notes Filed: 2024 13:33 Note Text: Respiratory Mallory Karuna Reynaga is a 78 year old female here for evaluation by the [facility] Interstitial Lung Disease Team. Consultation [...] No adenopathy. Thy (more content not included)... [facility]02-23-2024 Instructions* Patient Instructions* Ubaldo Dubose MD [...] (I will send a prescription to a [employer] company) How to Use the Acapella Assure [...] should not be placed in the automatic fish bait processing supervisor, boiled or bleached. 4. Rinse in clean water. 5. Shake off excess water. 6. Drain dry the device. Place each piece downward or rest the unit on its side. 7. Replace the mouthpiece when the unit is completely dry and ready for use. documented in this encounterAs[facility]02-23-2024 History of Present illness Narrative* Ubaldo Dubose MD - 12/28/2023 1:30 PM EST Images from the original note were not included. Respiratory Mallory Karuna Reynaga is a 78 year old female here for evaluation by the [facility] Interstitial Lung Disease Team. Consultation [...] myself) Laboratory Data Laboratory data reviewed in [facility] Everywhere. Pulmonary Function Data [...] her how to use it but her dskuotrx-pq-[id number] states that she will likely not be [...] 2023 5:04 PM CC: documented in this encounterAshtabula [facility]02-22-2024 NoteHNO ID: [id number] Author: DAMASO GUTHRIE RT(Elías) Service: ? Author [...] PATIENT PRESENTS WITH AN IMPLANTABLE OR ATTACHED DRAWING KILN OPERATOR: No RADIOLOGY DEPARTMENT: CT; Exam(s) Completed: Chest PERIPHERAL IV DATA: Not applicable SIGNED BY: Damaso Guthrie, RT(R) December 27, 2023 1:09 [facility]02-20-2024 NoteHNO ID: [id number] Author: YAMINI LAN RRT Service: ? Author Type: Registered Resp Therapist Type: Progress Notes Filed: 12/25/2023 15:11 Note Text: [facility]2024 NoteHNO ID: [id number] Author: YAMINI LAN RRT Service: ? Author Type: Registered Resp Therapist Type: Progress Notes Filed: 12/25/2023 15:00 Note Text: PULM FUNCTION SMARTBLOCK: Provider: Ubaldo Dubose MD Spirometry: 1 [facility] History of Present illness Narrative * Yamini Lan RRT - 12/25/2023 3:10 PM EST Pulmonary Function Test documented in this encounterAsht[facility]02-20-2024 History of Present illness Narrative* Yamini Lan RRT - 12/25/2023 2:58 PM EST PULM FUNCTION SMARTBLOCK: Provider: Ubaldo Dubose MD Spirometry: 1 DLCO: 1 documented in this encounterAshtabula [facility] Center04-18-2023 Evaluation note* Author Flex [facility] Authored February 21, 2024 11: 21am [...] determine the need for PPI [facility] Work Phone: 1(915) 857-777612-16-2021 NoteHISTORY: Bone density screening. COMPARISON: None available. 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) Mixed hyperlipidemia [facility] this encounter [facility]* Diagnosis Dermatophytosis of nail- Primary Well controlled type 2 diabetes mellitus with neurological manifestations (HCC) Type II or unspecified type diabetes mellitus with neurological manifestations, not stated as uncontrolled Unspecified hypothyroidism [facility]* Diagnosis Dermatophytosis of nail- Primary documented in this encounter [facility]* Diagnosis ILD (interstitial lung disease) ([facility])- Primary Postinflammatory pulmonary fibrosis Shortness of breath documented [facility] encounter [facility]* Diagnosis Bronchiectasis without complication ([facility])- Primary Bronchiectasis without acute exacerbation Aspiration pneumonitis (HCC) Pneumonitis due to inhalation of food or vomitus Traumatic brain injury with loss of consciousness, sequela (HCC) documented in this encounter [facility] [place] [facility]* Diagnosis Onset Date Resolution Status Bronchitis noneactive [facility] Work Phone: Evaluation note* Diagnosis Bronchiectasis without complication (HCC)- Primary Bronchiectasis without acute exacerbation documented in this encounter [facility] note* Diagnosis Bronchiectasis without complication (HCC)- Primary Bronchiectasis without acute exacerbation documented in this encounter [facility] note* Diagnosis Bronchiectasis without complication (HCC)- Primary Bronchiectasis without acute exacerbation Aspiration pneumonitis (HCC) Pneumonitis due to inhalation of food or vomitus Traumatic brain injury with loss of consciousness, sequela (HCC) documented in this encounter [facility] [place] [facility]* Diagnosis [...] Medication course changed documented in this encounter [facility] Work Phone: Reason for referral (narrative)* Outpatient Procedure (Routine) - Authorized Specialty Diagnoses / Procedures Referred By Contac t Referred To [facility] Diagnoses Bronchiectasis without complication (HCC) Procedures LUNG DIFFUSION CAPACITY (DLCO) DIFFUSING CAPACITY Ubaldo Dubose MD [address] [place] [address] Respiratory Mallory [address] [place] [address] Referral ID Status Reason Start Date Expiration Date Visits Requested Visits Authorized [id number] Authorized Auto-Generat ed Referral 12/28/2023 01/26/2025 1 1 * Outpatient Procedure (Routine) - Authorized Specialty Diagnoses / Procedures Referred By Contac t Referred To [facility] Diagnoses Bronchiectasis without complication (HCC) Procedures SPIROMETRY BASELINE ONLY SPMTRY W/VC EXPIRATORY MIRIAM W/WO MXML VOL VNTJ Ubaldo Dubose MD [address] [place] [address] Respiratory Mallory [address] [place] [address] Referral ID Status Reason Start Date Expiration Date Visits Requested Visits Authorized [id number] Authorized Auto-Generat ed Referral 12/28/2023 01/26/2025 1 1 [facility] Family History No Family History Records FoundUnknown [...] Abnormal lung sounds Procedures Transthoracic Echo Complete MA ECHO TTHRC R-T 2D W/WOM-MODE COMPL SPEC&COLR D Judit Lora MD [address] [facility] [address] [place] [address] Referral ID Status Reason Start Date Expiration Date Visits Requested Visits Authorized [id number] Pending Review Perform Procedure 03/10/2024 03/10/2025 1 1 Specialty Diagnoses / Procedures Referred By Contac t Referred To Contact Diagnoses Shortness of breath Procedures ECG 12 Lead Judit Lora MD [address] [place] [address] Referral ID Status Reason Start Date Expiration Date V isits Requested Visits Authorized [id number] Authorized 03/10/2024 03/10/2025 1 1 Specialty Diagnoses / Procedures Referred By Contac t Referred To Contact Cardiology Diagnoses Shortness of breath Procedures Follow Up In Cardiology Judit Lora MD [address] [place] [address] Judit Lora MD [address] [facility] [address] [place] [address] Referral ID Status Reason Start Date Expiration Date V isits Requested Visits Authorized [id number] Authorized 03/10/2024 03/10/2025 1 1 Additional Source [...] section and content) DATE CREATED AUTHOR 10/21/2021 [facility] dical Specialist DATE CREATED AUTHOR AUTHOR'S ORGANIZ ATION 10/22/2021 [facility] DATE CREATED AUTHOR AUTHOR'S ORGANIZ ATION 02/12/2023 [facility] DATE CREATED AUTHOR AUTHOR'S ORGANIZ ATION 02/26/2024 [facility] DATE CREATED AUTHOR AUTHOR'S ORGANIZ ATION 03/04/2024 [facility] DATE CREATED AUTHOR AUTHOR'S ORGANIZ ATION 03/11/2024 [facility] dical Specialists [facility] DATE CREATED AUTHOR AUTHOR'S ORGANIZ ATION 03/26/2024 [facility] Amb[facility] Source Comments (unrecognize d section and content) In the event this informatio n is protected by the Federal Confidentiality of Alcohol and Drug Abuse Patient Records regulations: The Federal rules restrict any use of the information to criminally investigate or prosecute any alcohol or drug abuse patient.[facility] CenterIn the event this information is protected by the Federal Confidentiality of Alcohol and Drug Abuse Patient Records regulations: The Federal rules restrict any use of the information to criminally investigate or prosecute any alcohol or drug abuse patient.[facility] CenterIn the event this information is protected by the Federal Confidentiality of Alcohol and Drug Abuse Patient Records regulations: The Federal rules restrict any use of the information to criminally investigate or prosecute any alcohol or drug abuse patient.[facility] CenterIn the event this information is protected by the Federal Confidentiality of Alcohol and Drug Abuse Patient Records regulations: The Federal rules restrict any use of the information to criminally investigate or prosecute any alcohol or drug abuse patient.[facility] CenterIn the event this information is protected by the Federal Confidentiality of Alcohol and Drug Abuse Patient Records regulations: The Federal rules restrict any use of the information to criminally investigate or prosecute any alcohol or drug abuse patient.[facility] CenterIn the event this information is protected by the Federal Confidentiality of Alcohol and Drug Abuse Patient Records regulations: The Federal rules restrict any use of the information to criminally investigate or prosecute any alcohol or drug abuse patient.[facility] CenterIn the event this information is protected by the Federal Confidentiality of Alcohol and Drug Abuse Patient Records regulations: The Federal rules restrict any use of the information to criminally investigate or prosecute any alcohol or drug abuse patient.[facility] CenterIn the event this information is protected by the Federal Confidentiality of Alcohol and Drug Abuse Patient Records regulations: The Federal rules restrict any use of the information to criminally investigate or prosecute any alcohol or drug abuse patient.[facility] CenterIn the event this information is protected by the Federal Confidentiality of Alcohol and Drug Abuse Patient Records regulations: The Federal rules restrict any use of the information to criminally investigate or prosecute any alcohol or drug abuse patient.[facility] CenterIn the event this information is protected by the Federal Confidentiality of Alcohol and Drug Abuse Patient Records regulations: The Federal rules restrict any use of the information to criminally investigate or prosecute any alcohol or drug abuse patient.[facility] CenterIn the event this information is protected by the Federal Confidentiality of Alcohol and Drug Abuse Patient Records regulations: The Federal rules restrict any use of the information to criminally investigate or prosecute any alcohol or drug abuse patient.[facility] CenterIn the event this information is protected by the Federal Confidentiality of Alcohol and Drug Abuse Patient Records regulations: The Federal rules restrict any use of the information to criminally investigate or prosecute any alcohol or drug abuse patient.[facility] CenterIn the event this information is protected by the Federal Confidentiality of Alcohol and Drug Abuse Patient Records regulations: The Federal rules restrict any use of the information to criminally investigate or prosecute any alcohol or drug abuse patient.[facility] Care Teams (unrecognized sec tion and content) Color Checker Roving Or Yarn Relationship Specialty Start Date End Date Ash Vance, DO [address] [id number] PCP - General 05/25/09 Color Checker Roving Or Yarn Relationship Specialty Start Date End Date Ash Vance, DO [address] [place] [address] PCP - General 05/25/09 Color Checker Roving Or Yarn Relationship Specialty Start Date End Date Ash Vance, DO [address] [place] [address] PCP General 05/25/09 Team Status: Inactive Member [...] November 21, 2023 End: November 21, 2023 Color Checker Roving Or Yarn Relationship Specialty Start Date End Date Jamal Alvarez DO [address] [place] [address] PCP - General Internal Medicine 12/25/23 Color Checker Roving Or Yarn Relationship Specialty Start Date End Date Jamal Alvarez DO [address] [place] [address] PCP - General Internal Medicine 12/25/23 Color Checker Roving Or Yarn Relationship Specialty Start Date End Date Jamal Alvarez DO [address] [place] [address] PCP - General Internal Medicine 12/25/23 Team [...] Provider Active S tart: February 13, 2024 Color Checker Roving Or Yarn Relationship Specialty Start Date End Date Jamal Alvarez DO [address] [place] [id number] PCP - General Internal Medicine 12/25/23 Team Status: Active Member Role Status Dates Jamal Alvarez DO Primary Care Provide r, Attending Provider Active Start: February 19, 2024 Team Status: Inactive Member Role Status Dates Jamal Alvarez DO Primary Care Provider Active Start: February 21, 2024 End: February 21, 2024 Flex Ramos MD Attending Provider Active Start: February 21, 2024 End: February 21, 2024 Color Checker Roving Or Yarn Relationship Specialty Start Date End Date Jamal Alvarez DO [address] [place] [id number] PCP - General Internal Medicine 12/25/23 Team [...] February 25, 2024 End: February 25, 2024 Color Checker Roving Or Yarn Relationship Specialty Start Date End Date Jamal Alvarez DO [address] [facility] [address] [place] [id number] PCP - General Internal Medicine 12/25/23 Color Checker Roving Or Yarn Relationship Specialty Start Date End Date Jamal Alvarez DO [address] [place] [id number] PCP - General Internal Medicine 12/25/23 Color Checker Roving Or Yarn Relationship Specialty Start Date End Date Jamal Alvarez DO [address] [place] [id number] PCP - General Internal Medicine 12/25/23 Color Checker Roving Or Yarn Relationship Specialty Start Date End Date Jamal Alvarez [address] [place] [address] PCP - General 11/05/99 Reason for Visit (unrecogniz ed section and content) Reason Comments Spirometry Specialty Diagnoses / Procedures Referred By Contac t Referred To Contact [facility] Diagnoses ILD (interstitial lung disease) (HCC) Shortness of breath Procedures SPIROMETRY WITH DILATOR IF OBSTRUCTED BRNCDILAT RSPSE SPMTRY PRE&POST-BRNCDILAT ADMN Dee Leal, TRACER LATHE SET UP OPERATOR.SILO PAINTER [address] [address] [address] Referral ID Status Reason Start Date Expiration Date V isits Requested Visits Authorized [id number] Closed Auto-Generate d Referral 12/11/2023 01/09/2025 1 1 Specialty Diagnoses / Procedures Referred By Contac t Referred To Contact [facility] Diagnoses ILD (interstitial lung disease) (HCC) Shortness of breath Procedures LUNG DIFFUSION CAPACITY (DLCO) DIFFUSING CAPACITY Dee Leal, TRACER LATHE SET UP OPERATOR.SILO PAINTER [address] [address] Referral ID Status Reason Start Date Expiration Date V isits Requested Visits Authorized [id number] Closed Auto-Generate d Referral 12/11/2023 01/09/2025 1 1 Reason Comments New Reason Comments Received Outside Medical Records Reason Comments Home nebulizer order Reason Comments Appointment Reason Comments Follow Up Reason Comments Establish Care Sob, fatigue,weaknes s Specialty Diagnoses / Procedures Referred By Contac t Referred To Contact Diagnoses Shortness of breath Procedures ECG 12 Lead Judit Lora MD [address] [facility] [address] [place] [address] Referral ID Status Reason Start Date Expiration Date V isits Requested Visits Authorized [id number] Authorized 03/10/2024 03/10/2025 1 1 FOR RECORDS [...] BE BASED ON THE PRIMARY CLINICAL RECORDS. [facility] provides no warranty or guarantee of the accuracy or completeness of information in this document.
== END 2024-04-11 13:33 | disposition home or self-care (01) ==
LOC: MAMMO 13:32
PROVIDERS: PCP Internal Medicine; Visit Provider Specialist
DX: Z12.31 Encounter for screening mammogram for malignant neoplasm of breast (principal)
CPT/HCPCS: 77063; 77067

== ENCOUNTER 2024-08-08 11:59 | Outpatient (OUT) | payer MEDICARE, SELFPAY ==
--- OUTSIDE RECORDS SUMMARY | 2024-08-08 12:09 | XMS_ITS | CCD ---
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 Role Phone Jamal Alvarez Unavailable Unavailable Unavailable Ash Vance DO Primary Care Provider Ash Vance DO Primary Care Provider DO Jamal Alvarez Primary Care Provider DO Hermes Kennedy Attending Provider DIAB ., BRUCE Admitting Unavailable DIAB ., BRUCE Attending Unavailable ANTONIO, DR WILLAMS Primary Care Unavailable DIAB ., BRUCE Consulting Unavailable ANTONIO, DR WILLAMS Admitting Unavailable ANTONIO, DR WILLAMS Attending Unavailable QUINITN LEROY Primary Care Unavail able WEST, DR JEANETH Mata Consulting Unavailable ANTONIO, DR WILLAMS Consulting Unavailable ANTONIO, DR WILLAMS Admitting Unavailable ANTONIO, DR WILLAMS Attending Unavailable QUINTIN LEROY Primary Care Unavail able ANTONIO, DR WILLAMS Consulting Unavailable DO Jamal Alvarez Primary Care Provider [phone] MD Vladez Castro Attending Provider DO Jamal Alvarez Attending Provider [phone] Jamal Alvarez DO Primary Care Provider DO Jamal Alvarez Primary Care Provider [phone] DO Jamal Alvarez Attending Provider [phone] CORNELIUS Pearce Attending Provider DO Jamal Alvarez Primary Care Provider [phone] DO Jamal Alvarez Attending Provider [phone] TEAGAN Lockhart Attending Provider [phone] Jamal Alvarez DO Primary Care Provider Jamal Alvarez DO Primary Care Provider [phone] MD Simone Navarro Emergency Provider [phone] DO Albert Palacio Admit Provider DO Albert Palacio Attending Provider [phone] MD Renan Murguia Attending Provider TEAGAN Fereman Other Provider Unavailable DO Vic Hess Other Provider MD Gilbert Torre Other Provider [phone] MD Malik Luu Other Provider MD Sukhwinder Luu Other Provider MD Oleg Milton Other Provider ROSELYN Navarro Other Provider MD Judit Lora Other Provider MD Joe Jorgeammwoodrow Ricci Other Provider MD Anthony Riddle Other Provider Chris [facility] Emilee Tineo Other Provider DO Andry Nugent Other Provider MD Flex Ramos Attending Provider DO Jamal Alvarez Primary Care Provider [phone] DO Jamal Alvarez Attending Provider MD Valdez Castro Attending Provider JAMAL ALVAREZ Attending Unavailable JAMAL ALVAREZ Referring Unavailable IRVING DUVALL Attending Unavailable EMMA MELISSA Referring Unavailable ALICE FROST Referring Unavailable JAMAL ALVAREZ Attending Unavailable JAMAL ALVAREZ Referring Unavailable JAMAL ALVAREZ Attending Unavailable JAMAL ALVAREZ Referring Unavailable JESUS ROBERSON Attending Unavailable JESUS ROBERSON Referring Unavailable JAMAL ALVAREZ Referring Unavailable JAMAL ALVAREZ Attending Unavailable GILBERT LOVETT Attending Unavailable Antonio, Jamal Primary Care Unavailable Moosa, Valdez F Attending Unavailable Moosa, Valdez F Admitting Unavailable Antonio, Jamal Primary Care Unavailable Moosa, Valdez F Admitting Unavailable Moosa, Valdez F Attending Unavailable Wilner Alvarezrey Attending Unavailable Antonio, Jamal Admitting Unavailable Antonio, Jamal Primary Care Unavailable Renan Murguia Attending Unavailable Albert Palacio Admitting Unavailable Shahnaz Freeman Consulting Unavailable Antonio, Jamal Primary Care Unavailable Vic Hess Consulting Unavailable Gilbert Torre Consulting Unavailable Malik Luu Consulting Unavail able Sukhwinder Luu Consulting Unavailable Oleg Milton Consulting Unavailab Adilene Vidal Consulting Unavailable Judit Lora Consulting Unavailable Mireille Jorge Consulting Unavailab Anthony Chahal Consulting Unavailable Emilee Perez Consulting Unavailable Andry Nugent Consulting Unavailable Antonio, Jamal Primary Care Unavailable Jamal Alvarez Attending Unavailable Antonio, Jamal Admitting Unavailable Antonio, Jamal Primary Care Unavailable Jamal Alvarez Attending Unavailable Antonio, Jamal Admitting Unavailable Jose Luis Lockhart Attending Unavailable Jose Luis Lockhart Admitting Unavailable Antonio, Jamal Primary Care Unavailable Asaad, Imad Attending Unavailable Asaad, Imad Admitting Unavailable Antonio, Jamal Primary Care Unavailable Nallely Pearce Attending Unavailable Nallely Pearce Admitting Unavailable Antonio, Jamal Primary Care Unavailable Moosa, Valdez F Attending Unavailable Moosa, Valdez F Admitting Unavailable Antonio, Jamal Primary Care Unavailable REECE LORAA Attending Unavailable JAMAL ALVAREZ A Primary Care Unavailable REECE LORAA Attending Unavailable DEMARCO JUDIT Referring Unavailable JAMAL ALVAREZ Primary Care Unavailable JAMAL ALVAREZ Primary Care UnavailUBALDO Tucker Attending Unavailable JAMAL ALVAREZ Primary Care Unavailabl e GLENNIE, DEE Referring Unavailable BUNTING, ASH RAY Primary Care Unavailable GLENNIE, DEE Referring Unavailable BUNTING, ASH RAY Primary Care Unavailable GLENNIE, DEE Referring Unavailable JAMAL ALVAREZ Primary Care Unavailabl e UBALDO DUBOSE Attending Unavailable JAMAL ALVAREZ Primary Care Unavailabl UBALDO Thorpe Referring Unavailable JAMAL ALVAREZ Primary Care UnavailUBALDO Tucker Referring Unavailable JAMAL ALVAREZ Primary Care UnavailUBALDO Tucker Attending Unavailable Allergies Allergy Classification Reported Allergen(s) Allergy Type Date of Onset Reaction(s) Facility Benzodiazepines (2 sources) Midazolam Drug Allergy 01-10-20 Mental Status Change [facility] Berries (1 source) Lookout Food Allergy 06-29-20 09 [facility] Latex (1 source) Latex Substance Allergy 06-29-20 09 [facility] Opioid Agonists (2 sources) Codeine Drug Allergy 08-21-20 Other: See Comments [facility] Penicillins (antibiotic) (1 source) Penicillins Drug Allergy 06-29-20 09 [facility] strawberry allergenic extract (1 source) strawberry allergenic extract Drug Allergy 04-13-20 Nausea [facility] Sulfonamides (antibiotic) (2 sources) Sulfonamides (Antibiotic) Drug Allergy 06-29-20 09 [facility] (15 sources) Codeine; Translations: [codeine] Drug Allergy 12-26-19 Unknown Reaction [facility] (5 sources) Penicillins; Translations: [Penicillins] Allergy to drug (finding) 06-29-20 09 [facility] 3 Repository (18 sources) Propoxyphene; Translations: [propoxyphene] Drug Allergy 08-21-20 Other: See Comments [facility] (3 sources) Sulfamethoxazol e; Translations: [sulfa] Drug Allergy [facility] y 250 DO Work Phone: (20 sources) Latex; Translations: [LATEX] Propensity to adverse reactions 06-29-20 [facility] (1 source) Penicillins Propensity to adverse reactions 06-29-20 [facility] (20 sources) Lookout; Translations: [STRAWBERRIES] Propensity to adverse reactions 06-29-20 [facility] (20 sources) Sulfonamides (Antibiotic); Translations: [SULFA (SULFONAMIDE ANTIBIOTICS)] Propensity to adverse reactions 06-29-20 [facility] (20 sources) Propoxyphene N-Acetaminophen ; Translations: [PROPOXYPHENE N-ACETAMINOPHEN ] Drug Allergy 06-29-20 Rash [facility] (20 sources) Penicillins Propensity to adverse reactions 06-29-20 Rash [facility] (12 sources) strawberry allergenic extract Drug Allergy 12-26-19 Nausea [facility] (1 source) Penicillins Drug allergy (disorder) [facility] Repository (1 source) Sulfonamides (Antibiotic) Drug allergy (disorder) [facility] Rep[facility] (20 sources) Midazolam; Translations: [MIDAZOLAM] Drug Allergy 01-10-20 Mental Status Change, Hallucinations [facility] (12 sources) opiates Propensity to adverse reactions 01-10-20 Confusion [facility] (18 sources) Morphinan opioid; Translations: [OPIOIDS - MORPHINE ANALOGUES] Drug Allergy 12-26-19 Mental Status Change, Unknown, Hallucinations [facility] Medications Current Medications Medication Drug Class(es) Dates Sig (Normalized) Sig (Original) albuterol 0.833 mg/ml / ipratropium bromide 0.167 mg/ml inhalation solution (13 sources) Anticholinergic, beta2-Adrenergic Agonist Start: 05-05-2024 take 3 mL by inhalation every four hours as needed ipratropium-albut fantasma (DUONEB) 0.5 mg-3 mg(2.5 mg base)/3 mL nebu Inhale 3 mL as instructed every 4 hours as needed for wheezing/shortnes s of breath. 360 mL 2 05/05/2024 Active Start: 06-29-2020 End: 12-28-2023 take 3 mL by inhalation every six hours as needed ipratropium-albuterol (DUONEB) 0.5 mg-3 mg(2.5 mg base)/3 mL nebu Inhale 3 mL as instructed every 6 hours as needed. 90 Vial 5 06/29/2020 12/28/2023 Discontinued Start: 06-29-2020 Ipratropium-Al buterol 0.5-2.5 (3) MG/3ML Inhalation Solution As directed. Quantity: 0 Refills: 0 Ordered: 27-Oct-2020 DO Start : 29-Jun-2020 Active Comment on above: Inhale 3 mL as instr ucted every 6 hours as needed. azithromycin 250 mg oral tablet (3 sources) Macrolide Antimicrobial Start: take 1 tablet by mouth once azithromycin (ZITHROMAX) 250 mg tablet Indications: Bronchiectasis without complication (HCC) Take 1 tablet by mouth every Sunday, Sunday, and Sunday. 30 tablet 1 05/05/2024 Active 24 hr buPROPion hydrochloride 150 mg extended release oral tablet (5 sources) Aminoketone Start: take 1 tablet by mouth once daily Bupropion Hcl (Wellbutrin Xl) 150 mg tablet extended release 24 hr Active 150 MG PO Daily April 13, 2024 12:00am Calcium (20 sources) Phosphate Binder, Calcium Start: CALCIUM 500 MG TAB Take one(1) tablet twice daily. 0 06/29/2009 Active Comment on above: Take one(1) tablet t wice daily. Carboxymethylcell-Glyce rin(Pf) (Refresh Relieva Pf) 0.5-1 % dropperette (5 sources) Start: Carboxymethylcell-Gly cerin(Pf) (Refresh Relieva Pf) 0.5-1 % dropperette Active 1 DROPS EYE-BOTH Three times daily April 13, 2024 12:00am cholecalciferol 0.05 mg oral capsule (20 sources) Vitamin D Start: Cholecalciferol, Vitamin D3, 50 mcg (2,000 unit) cap Daily 10/17/2021 Active Comment on above: Daily clopidogrel 75 mg oral tablet (20 sources) [id number] Platelet Inhibitor Start: clopidogrel bisulfate(PLAVIX 75 MG TAB) Take one(1) tablet daily. 0 06/29/2009 Active Comment on above: Take one(1) tablet d aily. fluconazole 150 mg oral tablet (4 sources) Azole Antifungal Start: End: take 1 tablet by mouth once fluconazole (DIFLUCAN) 150 mg tablet Indications: Yeast infection Take 1 tablet by mouth one time only for 1 dose. 1 tablet 0 05/05/2024 05/05/2024 Active Start: 07-17-2021 take 1 tablet by marilyn th once daily Fluconazole 150 MG Oral Tablet TAKE 1 TABLET DAILY DIRECTED. Quantity: 0 Refills: 0 Ordered: 17-Jul-2021 DO Start : 17-Jul-2021 Active furosemide 20 mg oral tablet (6 sources) Loop Diuretic Start: 04-13-2024 take 10 mg by mouth once daily Furosemide (Lasix) 20 mg tablet Active 10 MG PO Daily April 13, 2024 12:00am Start: 03-10-2024 End: 03-10-2025 take 0.5 tablet by mouth once daily furosemide (Lasix) 20 mg tablet Indications: Shortness of breath , Cough, unspecified type Take 0.5 tablets (10 mg) by mouth once daily. 45 tablet 3 03/10/2024 03/10/2025 Active ibandronic acid 150 mg oral tablet (20 sources) Bisphosphonate Start: 11-05-2019 Ibandronate 15 0 mg tablet Take 1 tablet by mouth. 11/05/2019 Active Start: 11-05-2019 take 1 tablet by marilyn th every month Ibandronate Sodium 150 MG Oral Tablet TAKE 1 TABLET BY MOUTH ONCE A MONTH Quantity: 3 Refills: 0 Ordered: 09-Aug-2021 DO Start : 16-Feb-2021 Active Comment on above: Take 1 tablet by marilyn th. ketorolac tromethamine 5 mg/ml ophthalmic solution (6 sources) Nonsteroidal Anti-inflammatory Drug, Cyclooxygenase Inhibitor Start: take 1 drop(s) into the eye(s) three times daily Ketorolac Active 1 DROPS EYE-RIGHT Three times daily April 13, 2024 12:00am Start: 02-13-2024 End: 03-14-2024 take 1 drop(s) into the eye(s) twice daily ketorolac (Acular) 0.5 % ophthalmic solution Administer 1 drop into affected eye(s) twice a day. 02/13/2024 03/14/2024 Active levETIRAcetam 250 mg oral tablet (4 sources) Start: 04-16-2024 take 250 mg by mouth twice daily Levetiracetam Active 250 MG PO Twice daily 180 90 April 16, 2024 12:00am liothyronine sodium 0.005 mg oral tablet (20 sources) l-Triiodo thyronine Start: 10-25-2023 take 1 tablet by mouth every twelve hours liothyronine (CYTOMEL) 5 mcg tablet Take 1 tablet by mouth every 12 hours. 10/25/2023 Active Start: 12-26-2022 take 5 ug by mouth twice daily Liothyronine Active 5 MCG PO Twice daily December 26, 2022 1:00am Comment on above: Take 1 tablet by marilyn th every 12 hours. loperamide hydrochloride 2 mg oral capsule (20 sources) Opioid Agonist Start: 10-17-20 End: 03-03-20 take 2 mg by mouth once daily in the morning Loperamide Active 2 MG PO Every morning February 21, 2024 10:47am Comment on above: Every morning MULTIVITAMIN TAB (20 sources) Start: 06-29-20 MULTIVITAMIN TAB Take one(1) [...] as directed. ofloxacin 3 mg/ml ophthalmic solution (6 sources) Quinolone Antimicrobial Start: 04-13-20 take 1 drop(s) into the eye(s) twice daily Ofloxacin Active 1 DROPS EYE-RIGHT Twice daily April 13, 2024 12:00am Start: 02-13-2024 take 1 drop(s) into the eye(s) five times daily ofloxacin (Ocuflox) 0.3 % ophthalmic solution Administer 1 drop into the right eye five times a day for 1 day Starting 1 day before surgery, continue after surgery as directed 02/13/2024 Active 24 hr oxybutynin chloride 5 mg extended release oral tablet (20 sources) Cholinergic Muscarinic Antagonist Start: 01-03-2024 Oxybutynin Chloride Active 5 MG PO .5pm February 22, 2024 12:00am Start: 10-17-2021 End: 02-22-2024 take 1 tablet by mouth once daily at bedtime Oxybutynin Chloride (Ditropan Xl) 10 mg Tablet Extended Release 24hr Discontinued 10 MG PO Daily at bedtime October 17, 2021 1:00am February 22, 2024 9:16am Start: 03-29-2021 take 1 tablet by marilyn th every [...] Take one(1) tablet t wo(2) times daily. prednisoLONE acetate 10 mg/ml ophthalmic suspension (5 sources) Corticosteroid Start: 04-13-20 take 1 drop(s) into the eye(s) three times daily Prednisolone Acetate (Pred Forte) 1 % drops,suspension Active 1 DROPS EYE-RIGHT Three times daily April 13, 2024 12:00am sodium chloride 30 mg/ml inhalation solution (14 sources) Start: 02-15-20 sodium chloride (NEBUSAL) 3 % nebulizer solution [...] actuat albuterol 0.09 mg/actuat dry powder inhaler (11 sources) beta2-Adrenergic Agonist End: 12-28-2023 albuterol sulfate 90 mcg/actuation aebs Inhale as instructed. 12/28/2023 Discontinued take 2 puff(s) by in halation every four hours as needed albuterol 90 mcg/actuation inhaler 2 puf fs Inhalation every 4 hrs as needed for 30 days Active Ventolin HFA 108 (90 Base) MCG/ACT Inhalation Aerosol Solution As directed. Quantity: 0 Refills: 0 Ordered: 21-Oct-2021 DO Active Comment on above: Inhale as instructed . calcium carbonate 1250 mg / cholecalciferol 125 unt oral tablet (13 sources) Vitamin D Start: 021 End: 023 take 1 tablet by mouth once daily Calcium Carbonate-Vitamin D3 Discontinued 1 TAB PO Daily October 17, 2021 1:00am January 09, 2023 11:55am cephalexin 500 mg oral capsule (13 sources) Cephalosporin Antibacterial Start: End: take 500 mg by mouth twice daily Cephalexin Discontinued 500 MG PO Twice daily 14 October 25, 2021 1:00am December 26, 2022 3:00pm desmopressin acetate 0.2 mg oral tablet (7 sources) Vasopressin Analog, Factor VIII Activator Start: End: take 0.2 mg by mouth once daily at bedtime Desmopressin Discontinued 0.2 MG PO Daily at bedtime February 21, 2024 12:00am April 13, 2024 5:20pm diphenoxylate HCl/atropine (LOMOTIL ORAL) (7 sources) End: diphenoxylate HCl/atropine (LOMOTIL ORAL) Take by mouth. 12/28/2023 Discontinued End: 12-28-2023 diphenoxylate HCl/atropine ( LOMOTIL ORAL) Take by mouth. 0 12/28/2023 Discontinued diphenoxylate HC l/atropine (LOMOTIL ORAL) Take by mouth. 0 Active Comment on above: Take by mouth. docusate sodium 100 mg oral capsule (7 sources) Start: 06-29-2009 End: 12-28-2023 docusate sodium(COLACE 100 MG CAP) Take one(1) tablet daily 0 06/29/2009 12/28/2023 Discontinued Comment on above: Take one(1) tablet d aily escitalopram 20 mg oral tablet (7 sources) Serotonin Reuptake Inhibitor Start: 06-29-2009 End: 12-28-2023 escitalopram oxalate(LEXAPRO 20 MG TAB) Take one(1) tablet daily. 0 06/29/2009 12/28/2023 Discontinued Comment on above: Take one(1) tablet d aily. estradiol 0.1 mg/ml vaginal cream (20 sources) Estrogen Start: 12-26-2022 End: 04-13-2024 Estradiol Discontinued 1 APPLICATOR VAGINAL Daily December 26, 2022 1:00am April 13, 2024 5:20pm Start: 06-11-2020 End: 05-16-2024 estradiol (ESTRACE) 0.01 % ( 0.1 mg/gram) vaginal cream Use 1 g vaginally. 06/11/2020 Active Start: 06-11-2020 End: 05-16-2024 estradiol (Estrace) 0.01 % ( 0.1 mg/gram) vaginal cream Insert 0.25 Applicatorfuls (1 g) into the vagina 2 times a week. 06/11/2020 05/16/2024 Active Start: 06-11-2020 Estradiol 0.1 MG/GM Vaginal Cream USE DIRECTED. Quantity: 0 Refills: 0 Ordered: 27-Oct-2020 DO Start : 11-Jun-2020 Active Comment on above: Use 1 g vaginally. fexofenadine hydrochloride 180 mg oral tablet (13 sources) Histamine-1 Receptor Antagonist Start: 10-17-20 End: 12-26-19 take 180 mg by mouth once daily Fexofenadine Discontinued 180 MG PO Daily October 17, 2021 1:00am December 26, 2022 3:01pm hydrOXYzine hydrochloride 25 mg oral tablet (17 sources) Antihistamine Start: 08-16-20 End: 02-21-20 take 25 mg by mouth every eight hours Hydroxyzine Hcl Discontinued 25 MG PO Q8H October 17, 2021 1:00am February 21, 2024 10:47am Start: 08-16-2021 take 1 tablet by mouth once hy drOXYzine HCL (Atarax) 25 mg tablet Take 1 tablet (25 mg) by mouth 1 time. 08/16/2021 Active levothyroxine sodium 0.075 mg oral tablet (20 sources) l-Thyroxine Start: 05-10-2021 End: 02-22-2024 take 75 ug by mouth once daily in the morning Levothyroxine Discontinued 75 MCG PO Every morning October 17, 2021 1:00am February 22, 2024 9:14am Start: 05-23-2020 levothyroxine (SYNTHROID) 50 mcg tablet 50 mcg. 05/23/2020 Active Comment on above: 50 mcg. LORazepam 1 mg oral tablet (7 sources) Benzodiazepine Start: 06-29-20 End: 12-28-19 lorazepam(ATIVAN 1 MG TAB) Take one(1) tablet daily at hs. 0 06/29/2009 12/28/2023 Discontinued Comment on above: Take one(1) tablet d aily at hs. lovastatin 40 mg oral tablet (7 sources) HMG-CoA Reductase Inhibitor Start: 06-29-20 End: 12-28-19 lovastatin(MEVACOR 40 MG TAB) Take one(1) tablet daily at bedtime. 0 06/29/2009 12/28/2023 Discontinued Comment on above: Take one(1) tablet d aily at bedtime. Multi Vitamin TABS (3 sources) Multi Vitamin TA BS TAKE 1 TABLET DAILY. Quantity: 0 Refills: 0 Ordered: 21-Oct-2021 DO Active Multivitamin preparation (13 sources) Start: 10-17-20 End: 12-26-19 take 1 [...] capsule (20 sources) Proton Pump Inhibitor Start: 08-09-2021 End: 02-24-2025 take 40 mg by mouth once daily Omeprazole Discontinued 40 MG PO Daily October 17, 2021 1:00am December 26, 2022 3:02pm Comment on above: Take by mouth at bed time as needed. simvastatin 20 mg oral tablet (20 sources) HMG-CoA Reductase Inhibitor Start: 02-16-2021 End: 02-21-2024 take 20 mg by mouth once daily at bedtime Simvastatin Discontinued 20 MG PO Daily at bedtime October 17, 2021 1:00am February 21, 2024 10:48am Start: 05-23-2020 End: 12-28-2023 take 1 tablet by mouth once daily at bedtime simvastatin (ZOCOR) 40 mg tablet Take 40 mg by mouth daily at bedtime. 05/23/2020 12/28/2023 Discontinued Comment on above: Take 40 mg by mouth daily at bedtime. thymol/chlorophyllin (CHLOROPHYLL ORAL) (7 sources) End: 12-28-2023 thymol/chlorophyllin (CHLOROPHYLL ORAL) Take by mouth. 12/28/2023 Discontinued End: 12-28-2023 thymol/chlorophyllin (CHLORO PHYLL ORAL) Take by mouth. 0 12/28/2023 Discontinued thymol/chlorophy llin (CHLOROPHYLL ORAL) Take by mouth. 0 Active Comment on above: Take by mouth. tiZANidine 4 mg oral tablet (20 sources) Central alpha-2 Adrenergic Agonist Start: End: take 1 tablet by mouth twice daily Tizanidine (Zanaflex) 4 mg Tablet Discontinued 4 MG PO Twice daily October 17, 2021 1:00am February 21, 2024 10:48am Start: 04-11-2020 End: 12-28-2023 tiZANidine HCl 4 mg capsule Take 4 mg by mouth. 04/11/2020 12/28/2023 Discontinued Comment on above: Take 4 mg by mouth. traMADol hydrochloride 50 mg oral tablet (13 sources) Opioid Agonist Start: 10-25-2021 End: 12-26-2022 take 50 mg by mouth every six hours Tramadol Discontinued 50 MG PO Q6H 8 2 October 25, 2021 1:00am December 26, 2022 3:02pm Problems Active Problems Problem Classification Problem Date Documented Da te Episodic/Chronic Acute myocardial infarction (9 sources) Myocardial infarction; Translations: [Non-ST elevation (NSTEMI) myocardial infarction] Onset: 4 04-14-2024 Chronic Administrative/social admission (2 sources) Person consulting for explanation of examination or test findings; Translations: [Person consulting for explanation of examination or test findings] Onset: Episodic Aspiration pneumonitis; food/vomitus (2 sources) Aspiration pneumonitis; Translations: [Pneumonitis due to inhalation of food and vomit] 12-28-2023 Episodic Cardiac dysrhythmias (4 sources) Sinus bradycardia; Translations: [Other specified cardiac dysrhythmias] Onset: 4 03-10-2024 Episodic Chronic obstructive pulmonary disease and bronchiectasis (12 sources) Bronchiectasis; Translations: [Bronchiectasis, uncomplicated] Onset: 4 12-28-2023 Chronic Chronic obstructive pulmonary disease and bronchiectasis (8 sources) Bronchitis, not specified as acute or chronic; Translations: [Bronchitis, not specified as acute or chronic] 02-13-2024 Episodic Coronary atherosclerosis and other heart disease (10 sources) Acute coronary syndrome; Translations: [Acute ischemic heart disease, unspecified] 04-13-2024 Chronic Diabetes mellitus with complications (2 sources) Disorder of nervous system due to type 2 diabetes mellitus; 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] Chronic Diabetes mellitus without complication (4 sources) Type 2 diabetes mellitus; Translations: [Type 2 diabetes mellitus without complications] Onset: 4 03-10-2024 Chronic Disorders of lipid metabolism (14 sources) Mixed hyperlipidemia; Translations: [Mixed hyperlipidemia] Onset: 4 Chronic Epilepsy; convulsions (2 sources) Seizure; Translations: [Unspecified convulsions] 04-22-2024 Episodic Esophageal disorders (14 sources) Gastroesophageal reflux disease; Translations: [Gastro-esophageal reflux disease without esophagitis] 02-21-2024 Chronic Menopausal disorders (1 source) Hormone replacement therapy; Translations: [HORMONE REPLACEMENT THERAPY] Onset: 3 Episodic Mycoses (3 sources) Onychomycosis due to dermatophyte ; Translations: [Tinea unguium] Episodic Other aftercare (1 source) Treatment changed; Translations: [Other snf (current) drug therapy] 03-10-2024 Episodic Other circulatory disease (2 sources) Abnormal chest sounds; Translations: [Other specified symptoms and signs involving the circulatory and respiratory systems] Onset: 4 03-10-2024 Episodic Other gastrointestinal disorders (4 sources) Constipation, unspecified; Translations: [CONSTIPATION UNSPECIFIED] Onset: 3 Episodic Other gastrointestinal disorders (7 sources) Dysphagia; Translations: [Dysphagia, unspecified] 02-21-2024 Episodic Other gastrointestinal disorders (7 sources) Dysphagia, unspecified; Translations: [Dysphagia, unspecified] 02-21-2024 Episodic Other gastrointestinal disorders (1 source) Dysphagia, oral phase; Translations: [Dysphagia, oral phase] Onset: 4 Episodic Other lower respiratory disease (3 sources) Interstitial lung disease; Translations: [Interstitial pulmonary disease, unspecified] 12-25-2023 Chronic Other lower respiratory disease (2 sources) Interstitial pulmonary disease, unspecified; Translations: [Interstitial pulmonary disease (HCC)] Onset: 4 Chronic Other nervous system disorders (13 sources) Acute postoperative pain; Translations: [Other acute [...] Onset: 4 Chronic Other upper respiratory disease (14 sources) Feeling of lump in throat; Translations: [Globus sensation] 02-21-2024 Episodic Pulmonary heart disease (2 sources) Pulmonary hypertension, unspecified; Translations: [Pulmonary hypertension, unspecified (Multi)] Onset: 4 Chronic Syncope (11 sources) Syncope; Translations: [Syncope and collapse] Onset: 4 04-13-2024 Episodic Thyroid disorders (2 sources) Hypothyroidism; Translations: [Hypothyroidism, unspecified] Chronic Unclassified (1 source) Acute cough; Translations: [Acute cough] Onset: 4 Unclassified (1 source) Unspecified intracranial injury with loss of consciousness status unknown, sequela ([facility]); Translations: [Unspecified intracranial injury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 by: Inocencio Mg M.D.04/16/2024 4:10 PM Dictation Location: [place] [address] Transcribed By: [facility] 04/16/24 1610 Dictated By: Inocencio Mg MD 04/16/24 1609 Signed By: 04/16/24 1610 Normal [facility] Neutrophils [#/volume] in Bl ood by Automated countOrdered By: Albert Palacio on 04-16-2024 Neutrophils (Bld) [#/Vol] 5.0 10*3/uL Normal 1.8-7.7 [facility] Comment on above: Order Comment: DRAW AT 0730 PER TEAGAN CASTRO. B 0450. TEAGAN CASTRO IS AWARE Performed By: #### C BC, BMP #### [address] No Panel InformationOrdered By: Albert Palacio on 04-16-2024 Estimated GFR (CKD-EPI) > 60.0 mL/Min [facility] Creatinine Clearance (Chem 40.49 [facility] Nucleated erythrocytes [Pres ence] in Blood by Automated countOrdered By: Albert Palacio on 04-16-2024 Nucleated RBC Auto Ql (Bld) 0.0 /100{WBC} 0-0.5 [facility] Platelet mean volume [Entiti c volume] in Blood by Automated countOrdered By: Albert Palacio on 04-16-2024 Platelet mean volume (Bld) [Entitic vol] 8.0 fL Normal 6.3-10.7 [facility] Comment on above: Order Comment: DRAW AT 0730 PER RN MATTHEW. SMB 0450. RN MATTHEW IS AWARE Performed By: #### C PENNY, BMP #### [facility] [address] [place] [address] Platelets [#/volume] in Bloo d by Automated countOrdered By: Albert Palacio on 04-16-2024 Platelets (Bld) [#/Vol] 222 10*3/uL Normal 150-450 [facility] Comment on above: Order Comment: DRAW AT 0730 PER RN MATTHEW. SMB 0450. RN MATTHEW IS AWARE Performed By: #### C BC, BMP #### [facility] [address] [place] [address] Potassium [Moles/volume] in Serum or PlasmaOrdered By: Albert Palacio on 04-16-2024 Potassium [Moles/Vol] 4.9 mmol/L Normal 3.5-5.1 [facility] Comment on above: Order Comment: DRAW AT 0730 PER RN MATTHEW. SMB 0450. RN MATTHEW IS AWARE Performed By: #### C BC, BMP #### [facility] [address] Serum or plasma anion gap de terminationOrdered By: Albert Palacio on 04-16-2024 Anion gap [Moles/Vol] 13.5 mmol/L Normal 6.0-15.0 [facility] Comment on above: Order Comment: DRAW AT 0730 PER RN MATTHEW. SMB 0450. RN MATTHEW IS AWARE Performed By: #### C BC, BMP #### [facility] [address] Sodium [Moles/volume] in Ser um or PlasmaOrdered By: Albert Palacio on 04-16-2024 Sodium [Moles/Vol] 138 mmol/L Normal 136-145 [facility] Comment on above: Order Comment: DRAW AT 0730 PER RN MATTHEW. SMB 0450. RN MATTHEW IS AWARE Performed By: #### C PENNY, BMP #### [facility] [address] Urea nitrogen [Mass/volume] in Serum or PlasmaOrdered By: Albert Palacio on 04-16-2024 Urea nitrogen [Mass/Vol] 31 mg/dL High 7-25 [facility] Comment on above: Order Comment: DRAW AT 0730 PER RN MATTHEW. SMB 0450. RN MATTHEW IS AWARE Performed By: #### C PENNY, BMP #### [facility] [address] Basic Metabolic Panelon 04-05 Anion gap [Moles/Vol] 9.9 mmol/L Normal 6.0-15.0 [facility] Comment on above: Performed By: #### B MP, CBC #### [place] [address] [place] Calcium [Mass/Vol] 8.6 mg/dL Normal 8.6-10.3 [facility] Comment on above: Performed By: #### B MP, CBC #### [place] [address] [place] Chloride [Moles/Vol] 107 mmol/L Normal 98-107 [facility] Comment on above: Performed By: #### B MP, CBC #### [place] [address] [place] CO2 [Moles/Vol] 26.4 mmol/L Normal 21.0-31.0 [facility] Comment on above: Performed By: #### B MP, CBC #### [facility] [address] [place] [address] [place] Creatinine [Mass/Vol] 0.81 mg/dL Normal 0.60-1.20 [facility] Comment on above: Performed By: #### B MP, CBC #### [address] Creatinine Clr Calc Pharmacy 47.30 Normal [facility] Comment on above: Result Comment: PERF ORMED BY: [place] [address] PATHOLOGIST SUPPLY AIDE EDMOND NORTH M.D. Performed By: #### B MP, CBC #### [place] [address] [place] GFR/1.73 sq M.predicted MDRD (S/P/Bld) [Vol rate/Area] mL/min/{1.73_m2} Normal [facility] Comment on above: Performed By: #### B MP, CBC #### [address] Glucose [Mass/Vol] 91 mg/dL Normal 70-100 [facility] Comment on above: Result Comment: [place] Glucose Reference Range is dependent on time and content of last meal. Glucose of more than 200 mg/dL in a nonstressed, ambulatory subject supports the diagnosis of Diabetes Mellitus. ADA recommended reference range Performed By: #### B MP, CBC #### [address] Potassium [Moles/Vol] 4.3 mmol/L Normal 3.5-5.1 [facility] Comment on above: Performed By: #### B MP, CBC #### [place] [address] [place] Sodium [Moles/Vol] 139 mmol/L Normal 136-145 [facility] Comment on above: Performed By: #### B MP, CBC #### [place] [address] [place] Urea nitrogen [Mass/Vol] 27 mg/dL High 7-25 [facility] Comment on above: Performed By: #### B MP, CBC #### [place] [address] [place] Complete Blood Count Auto Di ffon 04-15-2024 Basophils (Bld) [#/Vol] 0.0 10*3/uL Normal 0.0-0.2 [facility] Comment on above: Result Comment: PERF ORMED BY: [place] [address] PATHOLOGIST SUPPLY AIDE EDMOND NORTH M.D. Performed By: #### B MP, CBC #### [address] Basophils/100 WBC (Bld) 0.8 % Normal . [facility] Comment on above: Performed By: #### B MP, CBC #### [address] Eosinophils (Bld) [#/Vol] 0.4 10*3/uL Normal 0.0-0.45 [facility] Comment on above: Performed By: #### B MP, CBC #### [address] Eosinophils/100 WBC (Bld) 6.8 % Normal . [facility] Comment on above: Performed By: #### B MP, CBC #### [address] Erythrocyte distribution width (RBC) [Ratio] 13.1 % Normal 11.9-15.3 [facility] Comment on above: Performed By: #### B MP, CBC #### [address] Hematocrit (Bld) [Volume fraction] 38.1 % Normal 34.0-46.4 [facility] Comment on above: Performed By: #### B MP, CBC #### [address] Hemoglobin (Bld) [Mass/Vol] 12.5 g/dL Normal 11.8-15.4 [facility] Comment on above: Performed By: #### B MP, CBC #### [address] Lymphocytes (Bld) [#/Vol] 2.0 10*3/uL Normal 1.00-4.8 [facility] Comment on above: Performed By: #### B MP, CBC #### [address] Lymphocytes/100 WBC (Bld) 36.1 % Normal . [facility] Comment on above: Performed By: #### B MP, CBC #### [address] MCH (RBC) [Entitic mass] 29.3 pg Normal 24.7-34.3 [facility] Comment on above: Performed By: #### B MP, CBC #### [address] MCV (RBC) [Entitic vol] 89.5 fL Normal 80-100 [facility] Comment on above: Performed By: #### B MP, CBC #### [address] Mean Corpuscular HGB Conc 32.8 g/dL Normal 32.0-35.0 [facility] Comment on above: Performed By: #### B MP, CBC #### [place] [address] [place] Monocytes (Bld) [#/Vol] 0.6 10*3/uL Normal 0.0-0.8 [facility] Comment on above: Performed By: #### B MP, CBC #### [place] [address] [place] Monocytes/100 WBC (Bld) 9.8 % Normal . [facility] Comment on above: Performed By: #### B MP, CBC #### [address] Neutrophils (Bld) [#/Vol] 2.6 10*3/uL Normal 1.8-7.7 [facility] Comment on above: Performed By: #### B MP, CBC #### [address] Neutrophils/100 WBC (Bld) 46.5 % Normal . [facility] Comment on above: Performed By: #### B MP, CBC #### [address] NRBC% 0.2 /100{WBC} Normal 0-0.5 [facility] Comment on above: Performed By: #### B MP, CBC #### [address] Platelet mean volume (Bld) [Entitic vol] 8.0 fL Normal 6.3-10.7 [facility] Comment on above: Performed By: #### B MP, CBC #### [address] Platelets (Bld) [#/Vol] 193 10*3/uL Normal 150-450 [facility] Comment on above: Performed By: #### B MP, CBC #### [address] RBC (Bld) [#/Vol] 4.25 10*6/uL Normal 3.60-5.00 [facility] Comment on above: Performed By: #### B MP, CBC #### [address] WBC (Bld) [#/Vol] 5.6 10*3/uL Normal 3.8-11.6 [facility] Comment on above: Performed By: #### B MP, CBC #### [address] MR head/brain wo [facility] 04-15 MR head/brain wo [facility] [place] [address] MRI Report Signed Patient: Karuna Reynaga MR#: [id number] 289 : 1945 Acct:[id number] Age/Sex: 79 / F ADM Date: 04/13/24 Loc: Room: [address] [place] [address] Type: ADM IN Attending Dr: Renan Murguia MD Copies to: DO Renan Jurado MD Ordering Provider: Andry Nugent DO Date of Service: 04/15/24 MR/MR head/brain wo con: syncope, dysarthria EXAMINATION: MRI OF THE BRAIN WITHOUT CONTRAST CLINICAL HISTORY: Mental status and slurred speech. Syncopal episode. COMPARISON: CT 04/13/2024 TECHNIQUE: Multiecho, multiplanar imaging of the brain was performed without enhancement. There is generalized atrophy. The ventricles are normal in size and position. There is moderate periventricular and subcortical increased T2 and FLAIR signal and mild at the harsh. This is likely chronic microvascular disease. There is bilateral frontal lobe encephalomalacia. There are no additional areas of abnormal signal intensity within the supra- or infratentorial brain. No restricted diffusion is identified to suggest a recent ischemic event. There are no extra-axial collections or mass effect. The imaged paranasal sinuses and mastoid air cells are clear. MR/MR head/brain wo con IMPRESSION: ATROPHY AND CHRONIC ISCHEMIC CHANGES. NO ACUTE INTRACRANIAL FINDINGS. Impression dictated by: Elizabeth Hoskins M.D.04/15/2024 8:11 PM Dictation Location: [place] [address] Transcribed By: [facility] 04/15/242010 Dictated By: Elizabeth Hoskins MD 04/15/242006 Signed By: 04/15/242010 Normal [facility] Activated partial thrombopla stin time (aPTT) in platelet poor plasma by coagulation aOrdered By: Albert Palacio on 04-14-2024 aPTT Coag (PPP) [Time] 77.1 s High 25.1-36.5 [facility] Comment on above: A hematocrit value g reater than 55% may lead to inaccurate results in coagulation testing. Patients having hematocrit values >55% require a special collection tube for coagulation studies. Please contact the laboratory at [phone] for redraw instructions. Basic Metabolic Panelon 04-05 Anion gap [Moles/Vol] 10.1 mmol/L Normal 6.0-15.0 [facility] Comment on above: Performed By: #### T 4F, TSH3, T3F #### [address] Calcium [Mass/Vol] 8.8 mg/dL Normal 8.6-10.3 [facility] Comment on above: Performed By: #### T 4F, TSH3, T3F #### [facility] [address] [place] [address] [place] Chloride [Moles/Vol] 108 mmol/L High 98-107 [facility] Comment on above: Performed By: #### T 4F, TSH3, T3F #### [facility] [address] [place] [address] [place] CO2 [Moles/Vol] 25.6 mmol/L Normal 21.0-31.0 [facility] Comment on above: Performed By: #### T 4F, TSH3, T3F #### [facility] [address] [place] [address] [place] Creatinine [Mass/Vol] 0.70 mg/dL Normal 0.60-1.20 [facility] Comment on above: Performed By: #### T 4F, TSH3, T3F #### [facility] [address] [place] [address] [place] Creatinine Clr Calc Pharmacy 48.69 Normal [facility] Comment on above: Performed By: #### T 4F, TSH3, T3F #### [facility] [address] [place] [address] [place] GFR/1.73 sq M.predicted MDRD (S/P/Bld) [Vol rate/Area] mL/min/{1.73_m2} Normal [facility] Comment on above: Performed By: #### T 4F, TSH3, T3F #### [facility] [address] [place] [address] [place] Glucose [Mass/Vol] 102 mg/dL High 70-100 [facility] Comment on above: Result Comment: [place] Glucose Reference Range is dependent on time and content of last meal. Glucose of more than 200 mg/dL in a nonstressed, ambulatory subject supports the diagnosis of Diabetes Mellitus. ADA recommended reference range Performed By: #### T 4F, TSH3, T3F #### [facility] [address] [place] [address] [facility] Potassium [Moles/Vol] 3.7 mmol/L Normal 3.5-5.1 [facility] Comment on above: Performed By: #### T 4F, TSH3, T3F #### [facility] [address] [place] [address] [place] Sodium [Moles/Vol] 140 mmol/L Normal 136-145 [facility] Comment on above: Performed By: #### T 4F, TSH3, T3F #### [facility] [address] [place] [address] [facility] Urea nitrogen [Mass/Vol] 20 mg/dL Normal 7-25 [facility] Comment on above: Performed By: #### T 4F, TSH3, T3F #### [facility] [address] [place] [address] [facility] Bilirubin Test strip Ql (U)O rdered By: Ashley Dickerson on 04-14-2024 Bilirubin Ql (U) Negative Negative [facility] Cholesterol [Mass/volume] in Serum or PlasmaOrdered By: Albert Palacio on 04-14-2024 Cholesterol [Mass/Vol] 154 mg/dL Normal 140-200 [facility] Comment on above: Chol less than 200 m g/dl low riskChol 201-239 mg/dl borderline riskChol 240 mg/dl and greater high risk Result Comment: Chol less than 200 mg/dl low risk Chol 201-239 mg/dl borderline risk Chol 240 mg/dl and greater high risk Performed By: #### T 4F, TSH3, T3F #### [facility] [address] [place] [address] [facility] Cholesterol in LDL Calc [Mas s/Vol]Ordered By: Albert Palacio on 04-14-2024 Cholesterol in LDL [Mass/Vol] 82 mg/dL 0-100 [facility] Comment on above: LDL ATP III CLASSIFI CATIONLDL less than 100 mg/dL OptimalLDL 100-129 mg/dL Near or above optimalLDL 130-159 mg/dL Borderline highLDL 160-189 mg/dL HighLDL greater than 189 mg/dL Very high Cholesterol in VLDL Calc [Ma ss/Vol]Ordered By: Albert Palacio on 04-14-2024 Cholesterol in VLDL [Mass/Vol] 12 mg/dL [facility] Color of Urine by AutoOrdere d By: Ashley Dickerson on 04-14-2024 Color (U) Colorless Normal Yellow [facility] Comment on above: Order Comment: Name Collection Type:: Clean-Voided Midstream Performed By: #### T 4F, TSH, T3F #### [address] Complete Blood Count Auto Di ffon 04-14-2024 Basophils (Bld) [#/Vol] 0.0 10*3/uL Normal 0.0-0.2 [facility] Comment on above: Result Comment: PERF ORMED BY: [place] [address] PATHOLOGIST SUPPLY AIDE EDMOND NORTH M.D. Performed By: #### T 4F, , T3F #### [address] Basophils/100 WBC (Bld) 0.7 % Normal . [facility] Comment on above: Performed By: #### T 4F, , T3F #### [address] Eosinophils (Bld) [#/Vol] 0.4 10*3/uL Normal 0.0-0.45 [facility] Comment on above: Performed By: #### T 4F, , T3F #### [address] Eosinophils/100 WBC (Bld) 5.2 % Normal . [facility] Comment on above: Performed By: #### T 4F, TSH, T3F #### [address] Erythrocyte distribution width (RBC) [Ratio] 12.8 % Normal 11.9-15.3 [facility] Comment on above: Performed By: #### T 4F, TSH, T3F #### [address] Hematocrit (Bld) [Volume fraction] 37.4 % Normal 34.0-46.4 [facility] Comment on above: Performed By: #### T 4F, TSH, T3F #### [address] Hemoglobin (Bld) [Mass/Vol] 12.4 g/dL Normal 11.8-15.4 [facility] Comment on above: Performed By: #### T 4F, TSH3, T3F #### [address] Lymphocytes (Bld) [#/Vol] 2.3 10*3/uL Normal 1.00-4.8 [facility] Comment on above: Performed By: #### T 4F, TSH3, T3F #### [address] Lymphocytes/100 WBC (Bld) 32.0 % Normal . [facility] Comment on above: Performed By: #### T 4F, TSH3, T3F #### [address] MCH (RBC) [Entitic mass] 29.4 pg Normal 24.7-34.3 [facility] Comment on above: Performed By: #### T 4F, TSH3, T3F #### [address] MCV (RBC) [Entitic vol] 88.8 fL Normal 80-100 [facility] Comment on above: Performed By: #### T 4F, TSH3, T3F #### [address] Mean Corpuscular HGB Conc 33.1 g/dL Normal 32.0-35.0 [facility] Comment on above: Performed By: #### T 4F, TSH3, T3F #### [place] [address] [place] Monocytes (Bld) [#/Vol] 0.5 10*3/uL Normal 0.0-0.8 [facility] Comment on above: Performed By: #### T 4F, TSH3, T3F #### [place] [address] [place] Monocytes/100 WBC (Bld) 6.8 % Normal . [facility] Comment on above: Performed By: #### T 4F, TSH3, T3F #### [address] Neutrophils (Bld) [#/Vol] 3.9 10*3/uL Normal 1.8-7.7 [facility] Comment on above: Performed By: #### T 4F, TSH3, T3F #### [address] Neutrophils/100 WBC (Bld) 55.3 % Normal . [facility] Comment on above: Performed By: #### T 4F, TSH3, T3F #### [address] NRBC% 0.1 /100{WBC} Normal 0-0.5 [facility] Comment on above: Performed By: #### T 4F, TSH3, T3F #### [address] Platelet mean volume (Bld) [Entitic vol] 8.3 fL Normal 6.3-10.7 [facility] Comment on above: Performed By: #### T 4F, TSH3, T3F #### [address] Platelets (Bld) [#/Vol] 208 10*3/uL Normal 150-450 [facility] Comment on above: Performed By: #### T 4F, TSH3, T3F #### [address] RBC (Bld) [#/Vol] 4.22 10*6/uL Normal 3.60-5.00 [facility] Comment on above: Performed By: #### T 4F, TSH3, T3F #### [address] WBC (Bld) [#/Vol] 7.1 10*3/uL Normal 3.8-11.6 [facility] Comment on above: Performed By: #### T 4F, TSH3, T3F #### [place] [id number] [facility] echo transthoracicon [facility] echo transthoracic [facility] Main [place] [address] [place] [id number] Echocardiogram Signed Patient: Karuna Reynaga MR#: [id number] 289 : 1945 Acct:[id number] Age/Sex: 79 / F ADM Date: 04/13/24 Loc: Room: [address] [place] [address] Type: ADM IN Attending Dr: Renan Murguia MD Ordering Provider: Albert Palacio DO Date of Service: 04/13/2407/29/1913 [facility] transt[facility]: troponin elevation Copies to: MD Albert Booth DO BSA: 1.5 m2 BP: 122/75 mmHg HR: 65 Reason For Study: troponin elevation History: HLD. GERD. TIA. COPD. DM. Former Smoker. Interpretation Summary Ejection Fraction = 55-60%. The left ventricular wall motion is normal. The right ventricle is moderately dilated. The right ventricular systolic function is normal. Mild aortic regurgitation. There is trace tricuspid regurgitation. Right ventricular systolic pressure is consistent with mild pulmonary hypertension. Compared to previous study, RV is now moderately dilated with evidence of mild pulmonary hypertension. Procedure/Quality: A two-dimensional transthoracic echocardiogram with color flow, Doppler and injection of contrast agent Definity was performed. The study was technically good in quality. Left Ventricle: The left ventricular size is normal. The left ventricular thickness is normal. Ejection Fraction = 55-60%. The left ventricular wall motion is normal. Left Atrium: The left atrium appears normal in size. Right Atrium: The right atrium appears normal in size. Right Ventricle: The right ventricle is moderately dilated. The right ventricular systolic function is normal. Aortic Valve: The aortic valve is trileaflet. The aortic valve is normal in structure. No hemodynamically significant valvular aortic stenosis. Mild aortic regurgitation. Mitral Valve: The mitral valve is normal in structure. No significant mitral valve stenosis. There is no mitral regurgitation noted. Tricuspid Valve: The tricuspid valve is normal in structure. There is trace tricuspid regurgitation. Right ventricular systolic pressure is consistent with mild pulmonary hypertension. Pulmonic Valve: The pulmonic valve is not well visualized. No significant pulmonic regurgitation. Arteries: The aortic root is normal size. Pericardium/Pleura: No pericardial effusion seen. There is no pleural effusion. IVC/Hepatic Veins: The inferior vena cava is normal in size, with a normal collapsibility index. Measurements with Normals IVSd: 1.1 cm (0.7-1.1 cm)LVIDd: 3.0 cm (3.7-5.4 cm) LVPWd: 1.1 cm (0.7-1.1 cm)LVIDs: 1.9 cm (2.3-3.6 cm) LA dimension: 3.3 cm (2.3-4.0 cm)Ao root diam: 2.7 cm(2.0-3.6 cm) asc Aorta Diam: 3.1 cm(2.1-3.4cm) Doppler with Normals RVSP(TR): 38.7 mmHg (18-35mmHg) LV V1 max: 95.5 cm/sec (0.7-1.7m/s)MV E max haydee: 67.7 cm/sec(0.8-1.3m/s) MV A max haydee: 63.4 cm/sec(0.0-0.0m/s) MV E/A: 1.1 (<1.5) MMode/2D Measurements Calculations RVDd: 3.2 cm FS: 38.3 % Ao root area: LVOT diam: 2.0 cm TAPSE: 1.9 cm EDV(Teich): 5.9 cm2 LVOT area: 3.1 cm2 RV S Haydee: 36.3 ml 10.3 cm/sec ESV(Teich): 10.9 ml EF(Teich): 70.0 % __ LVLd ap4: 6.4 cm SV(MOD-sp4): LAV(MOD-sp4): LA A2 area: 12.0 cm2 EDV(MOD-sp4): 38.1 ml 25.5 ml 68.7 ml LAV(MOD-sp2): LA A4 area: 11.6 cm2 LVLs ap4: 5.2 cm 26.2 ml LA length (vol): ESV(MOD-sp4): 4.0 cm 30.6 ml LA vol: 29.3 ml EF(MOD-sp4): 55.5 % LA vol index: 19.2 ml/m2 Doppler Measurements Calculations MV dec time: MV V2 max: E/E' lat: 8.0 MV dec slope: 0.15 sec 75.3 cm/sec E/E' med: 10.7 MV max P.3 mmHg 442.0 cm/sec2 MV V2 mean: 47.9 cm/sec MV mean P.0 mmHg MV V2 VTI: 20.5 cm MVA(VTI): 3.0 cm2 __ Ao V2 max: AI max haydee: LV V1 max PG: TV max P.0 mmHg 108.6 cm/sec 346.7 cm/sec 3.7 mmHg Ao max PG: AI max P.1 mmHg LV V1 mean P.7 mmHg AI dec slope: 1.8 mmHg Ao mean PG: LV V1 mean: 2.9 mmHg 173.2 cm/sec2 61.9 cm/sec Ao V2 mean: AI P1/2t: 586.4 msec LV V1 VTI: 81.5 cm/sec 20.3 cm Ao V2 VTI: 25.6 cm WEST(I,D): 2.4 cm2 WEST(V,D): 2.7 cm2 __ TR max haydee: 298.6 cm/sec TR max P.7 mmHg RAP systole: 3.0 mmHg Transcribed By: JENS Performed At: 04/14/24 0939 Signed By: Praveena Garcia MD 04/14/24 1440 Normal [facility] Glucose [Mass/volume] in Uri ne by Test stripOrdered By: Ashley Dickerson on 04-14-2024 Glucose Test strip (U) [Mass/Vol] Normal mg/dL Normal [facility] Hemoglobin Test strip Ql (U) Ordered By: Ashley Dickerson on 04-14-2024 Hemoglobin Ql (U) Negative Negative [facility] Ketones [Presence] in Urine by Test stripOrdered By: Ashley Dickerson on 04-14-2024 Ketones Ql (U) Negative Normal Negative [facility] Comment on above: Order Comment: Name Collection Type:: Clean-Voided Midstream Performed By: #### T 4F, TSH3, T3F #### [facility] [address] [place] [id number] [facility] Leukocyte esterase [Presence ] in Urine by Test stripOrdered By: Ashley Dickerson on 04-14-2024 Leukocyte esterase Test strip Ql (U) Negative Normal Negative [facility] Comment on above: Order Comment: Name Collection Type:: Clean-Voided Midstream Performed By: #### T 4F, TSH3, T3F #### [facility] [address] Lipid Panelon 04-14-2024 LDL Cholesterol,Calculated 82 mg/dL Normal 0-100 [facility] Comment on above: Result Comment: LDL ATP III CLASSIFICATION LDL less than 100 mg/dL Optimal LDL 100-129 mg/dL Near or above optimal LDL 130-159 mg/dL Borderline high LDL 160-189 mg/dL High LDL greater than 189 mg/dL Very high Performed By: #### T 4F, TSH3, T3F #### [facility] [address] Triglyceride w/Reflex 64 mg/dL Normal 0-149 [facility] Comment on above: Result Comment: TRIG ATP III CLASSIFICATION TRIG less than 150 mg/dL Normal TRIG 150-199 mg/dL Borderline high TRIG 200-500 mg/dL High TRIG greater than 500 mg/dL Very high Standard traceable to the Center for Disease Conrtrol and Prevention (CDC) test method. Performed By: #### T 4F, TSH3, T3F #### [facility] [address] [address] [facility] VLDL CHOLESTEROL 12 mg/dL Normal [facility] Comment on above: Performed By: #### T 4F, TSH3, T3F #### [facility] [address] [place] [address] [facility] Magnesium [Mass/volume] in S sun or PlasmaOrdered By: Albert Palacio on 04-14-2024 Magnesium [Mass/Vol] 1.9 mg/dL Normal 1.9-2.7 [facility] Comment on above: Performed By: #### T 4F, TSH3, T3F #### [facility] [address] [address] [facility] Nitrite Test strip Ql (U)Ord ered By: Ashley Dickerson on 04-14-2024 Nitrite Ql (U) Negative Negative [facility] Partial Thromboplastin Timeo n 04-14-2024 aPTT Coag (Bld) [Time] 77.1 s High 25.1-36.5 [facility] Comment on above: Order Comment: List the anticoagulant: HEPARIN, UNFRACTIONATED Result Comment: A he matocrit value greater than 55% may lead to inaccurate results in coagulation testing. Patients having hematocrit values >55% require a special collection tube for coagulation studies. Please contact the laboratory at [phone] for redraw instructions. PERFORMED BY: [place] [address] PATHOLOGIST SUPPLY AIDE EDMOND NORTH M.D. Performed By: #### T 4F, T3F, TSH3 #### [place] [id number] [facility] aPTT Coag (Bld) [Time] 141.3 s Off scale high 25.1-36.5 [facility] Comment on above: Result Comment: Crit ical value result called at 0922 on 04/14/24 A hematocrit value greater than 55% may lead to inaccurate results in coagulation testing. Patients having hematocrit values >55% require a special collection tube for coagulation studies. Please contact the laboratory at [phone] for redraw instructions. PERFORMED BY: [address] [place] [address] PATHOLOGIST SUPPLY AIDE EDMOND NORTH M.D. Performed By: #### T 4F, TSH3, T3F #### [facility] [address] [place] [address] [facility] aPTT Coag (Bld) [Time] 50.2 s High 25.1-36.5 [facility] Comment on above: Result Comment: A he matocrit value greater than 55% may lead to inaccurate results in coagulation testing. Patients having hematocrit values >55% require a special collection tube for coagulation studies. Please contact the laboratory at [phone] for redraw instructions. PERFORMED BY: [address] [address] PATHOLOGIST SUPPLY AIDE EDMOND NORTH M.D. Performed By: #### T 4F, T3F, TSH3 #### [facility] [address] [place], [place] [id number] [facility] Protein Test strip (U) [Mass /Vol]Ordered By: Ashley Dickerson on 04-14-2024 Protein (U) [Mass/Vol] Negative Negative [facility] Serum or plasma high density lipoprotein (HDL) cholesterol measurementOrdered By: Albert Palacio on 04-14-2024 Cholesterol in HDL [Mass/Vol] 59 mg/dL Normal 23-92 [facility] Comment on above: HDL CHOL ATP-III CLA SSIFICATION Cardiovascular RiskHDL > or equal to 60 mg/dL LOWHDL < 40 mg/dL HIGH Result Comment: HDL CHOL ATP-III CLASSIFICATION Cardiovascular Risk HDL > or equal to 60 mg/dL LOW HDL < 40 mg/dL HIGH Performed By: #### T 4F, TSH3, T3F #### [facility] [address] [place], [place] [id number] [facility] Serum or plasma total choles terol/high density lipoprotein (HDL) cholesterol mass ratOrdered By: Albert Palacio on 04-14-2024 Cholesterol.total/Chol esterol in HDL [Mass ratio] 2.6 {ratio} Normal <5.0 [facility] Comment on above: Result Comment: PERF ORMED BY: [address] [address] PATHOLOGIST SUPPLY AIDE EDMOND NORTH M.D. Performed By: #### T 4F, TSH3, T3F #### [facility] [address] [place] [address] [facility] Specific gravity Test strip (U) [Rel density]Ordered By: Ashley Dickerson on 04-14-2024 Specific gravity (U) [Rel density] 1.011 1.001-1.030 [facility] Triglyceride [Mass/volume] i n Serum or PlasmaOrdered By: Albert Palacio on 04-14-2024 Triglyceride [Mass/Vol] 64 mg/dL 0-149 [facility] Comment on above: TRIG ATP III CLASSIF ICATIONTRIG less than 150 mg/dL NormalTRIG 150-199 mg/dL Borderline highTRIG 200-500 mg/dL High TRIG greater than 500 mg/dL Very highStandard traceable to the Center for Disease Conrtrol and Prevention (CDC) test method. Troponin I High Sensitivityo n 04-14-2024 Troponin I High Sensitivity 436.4 pg/mL Off scale high 0.0-15.0 [facility] Comment on above: Result Comment: Crit ical Result : Called to and read back by: BRET HARKINS at: 04/14/2024 06:14:01 by:SOUMYA PERFORMED BY: [place] [address] PATHOLOGIST SUPPLY AIDE EDMOND NORTH M.D. Performed By: #### T 4F, TSH3, T3F #### [facility] [address] Troponin I.cardiac [Mass/vol ume] in Serum or Plasma by Detection limit <= 0.01 ng/Ordered By: Albert Palacio on 04-14-2024 Troponin I.cardiac DL <= 0.01 ng/mL [Mass/Vol] 436.4 pg/mL High 0.0-15.0 [facility] Comment on above: Critical Result : Ca lled to and read back by: BRET HARKINS at: 04/14/2024 06:14:01 by:SOUMYA Urinalysison 04-14-2024 Bilirubin,Urine Negative Normal Negative [facility] Comment on above: Order Comment: Name Collection Type:: Clean-Voided Midstream Performed By: #### T 4F, TSH3, T3F #### [facility] [address] [place] [address] [place] Glucose Ql (U) Normal Normal Normal [facility] Comment on above: Order Comment: Name Collection Type:: Clean-Voided Midstream Performed By: #### T 4F, TSH3, T3F #### [facility] [address] [place], [place] [id number] [place] Nitrite,Urine Negative Normal Negative [facility] Comment on above: Order Comment: Name Collection Type:: Clean-Voided Midstream Performed By: #### T 4F, TSH3, T3F #### [facility] [address] [place], [place] [id number] [place] Occult Blood,Urine Negative Normal Negative [facility] Comment on above: Order Comment: Name Collection Type:: Clean-Voided Midstream Result Comment: PERF ORMED BY: [place] [address] PATHOLOGIST SUPPLY AIDE EDMOND NORTH M.D. Performed By: #### T 4F, TSH3, T3F #### [place] [address] [place] Protein,Urine Negative Normal Negative [facility] Comment on above: Order Comment: Name Collection Type:: Clean-Voided Midstream Performed By: #### T 4F, TSH3, T3F #### [place] [id number] [place] Specificy [place],Urine 1.011 Normal 1.001-1.030 [facility] Comment on above: Order Comment: Name Collection Type:: Clean-Voided Midstream Performed By: #### T 4F, TSH3, T3F #### [place] [address] [place] Urobilinogen,Urine Normal Normal Normal [facility] Comment on above: Order Comment: Name Collection Type:: Clean-Voided Midstream Performed By: #### T 4F, TSH3, T3F #### [place] [id number] [facility] Urine appearanceOrdered By: Ashley Dickerson on 04-14-2024 Appearance (U) Clear Normal Clear [facility] Comment on above: Order Comment: Name Collection Type:: Clean-Voided Midstream Performed By: #### T 4F, TSH3, T3F #### [place] [address] [place] Urobilinogen Test strip (U) [Mass/Vol]Ordered By: Ashley Dickerson on 04-14-2024 Urobilinogen (U) [Mass/Vol] Normal mg/dL Normal [facility] XR pre/post mri xrayon 04-14 XR pre/post mri xray [facility] [place] [address] [place] [address] XRay Report Signed Patient: Karuna Reynaga MR#: [id number] 289 : 1945 Acct:[id number] Age/Sex: 79 / F ADM Date: 04/13/24 Loc: Room: [address] [place] [address] Type: ADM IN Attending Dr: Renan Murguia MD Copies to: Renan Murguia MD Ordering Provider: Renan Murguia MD Date of Service: 04/14/24 XR/XR pre/post mri xray: pelvis including sacrum for IVC filter check Single view pelvis HISTORY: Assessment for removal of InterStim device. No residual metal identified. XR/XR pre/post mri xray IMPRESSION: No residual metal. Impression dictated by: Jamal Bird M.D.04/14/2024 8:55 PM Dictation Location: [place] [address] Transcribed By: [facility] 04/14/242054 Dictated By: Jamal Bird DO 04/14/242053 Signed By: 04/14/242054 Normal [facility] pH of Urine by Test stripOrd ered By: Ashley Dickerson on 04-14-2024 pH (U) 6.0 [pH] Normal 5.0-9.0 [facility] Comment on above: Order Comment: Name Collection Type:: Clean-Voided Midstream Performed By: #### T 4F, TSH3, T3F #### [address] Activated partial thrombopla stin time (aPTT) in platelet poor plasma by coagulation aOrdered By: Ashley Dickerson on 04-13-2024 aPTT Coag (PPP) [Time] 28.3 s 25.1-36.5 [facility] Comment on above: A hematocrit value g reater than 55% may lead to inaccurate results in coagulation testing. Patients having hematocrit values >55% require a special collection tube for coagulation studies. Please contact the laboratory at [phone] for redraw instructions. Alanine aminotransferase [En zymatic activity/volume] in Serum or PlasmaOrdered By: Ashley Dickerson on 04-13-2024 ALT [Catalytic activity/Vol] 19 U/L Normal 7-52 [facility] Comment on above: Performed By: #### T 4F, TSH3, T3F #### [facility] [address] [place] [address] [place] Albumin [Mass/volume] in Ser um or Plasma by Bromocresol green (BCG) dye binding methoOrdered By: Ashley Dickerson on 04-13-2024 Albumin BCG dye [Mass/Vol] 3.6 g/dL 3.5-5.7 [facility] Alkaline phosphatase [Enzyma tic activity/volume] in Serum or PlasmaOrdered By: Ashley Dickerson on 04-13-2024 ALP [Catalytic activity/Vol] 48 U/L Normal 34-104 [facility] Comment on above: Performed By: #### T 4F, TSH, T3F #### [facility] [address] [place] [address] [place] Aspartate aminotransferase [ Enzymatic activity/volume] in Serum or PlasmaOrdered By: Ashley Dickerson on 04-13-2024 AST [Catalytic activity/Vol] 19 U/L Normal 13-39 [facility] Comment on above: Performed By: #### T 4F, TSH3, T3F #### [facility] [address] [place] [address] [facility] Automated basophil %Ordered By: Ashley Dickerson on 04-13-2024 Basophils/100 WBC (Bld) 0.8 % Normal . [facility] Comment on above: Performed By: #### T 4F, TSH3, T3F #### [facility] [address] [place], [place] [id number] [place] Automated basophil countOrde red By: Ashley Dickerson on 04-13-2024 Basophils (Bld) [#/Vol] 0.1 10*3/uL Normal 0.0-0.2 [facility] Comment on above: Result Comment: PERF ORMED BY: [place] [address] PATHOLOGIST SUPPLY AIDE EDMOND NORTH M.D. Performed By: #### T 4F, TSH3, T3F #### [facility] [address] [place] [address] Automated blood monocyte cou ntOrdered By: Ashley Dickerson on 04-13-2024 Monocytes (Bld) [#/Vol] 0.5 10*3/uL Normal 0.0-0.8 [facility] Comment on above: Performed By: #### T 4F, TSH3, T3F #### [address] Automated eosinophil %Ordere d By: Ashley Germaine on 04-13-2024 Eosinophils/100 WBC (Bld) 4.3 % Normal . [facility] Comment on above: Performed By: #### T 4F, TSH3, T3F #### [address] Automated eosinophil countOr dered By: Ashley Dickerson on 04-13-2024 Eosinophils (Bld) [#/Vol] 0.3 10*3/uL Normal 0.0-0.45 [facility] Comment on above: Performed By: #### T 4F, TSH3, T3F #### [address] Automated monocyte %Ordered By: Ashley Dickerson on 04-13-2024 Monocytes/100 WBC (Bld) 7.4 % Normal . [facility] Comment on above: Performed By: #### T 4F, TSH3, T3F #### [address] Automated neutrophil %Ordere d By: Ashley Saffle on 04-13-2024 Neutrophils/100 WBC (Bld) 58.0 % Normal . [facility] Comment on above: Performed By: #### T 4F, TSH3, T3F #### [facility] [address] [place] [address] BNP ser/plasOrdered By: Howard Palacio on 04-13-2024 Natriuretic peptide B (Bld) [Mass/Vol] 12.0 pg/mL Normal 5-100 [facility] Comment on above: Order Comment: Comme nt add on to ER labs Result Comment: PERF ORMED BY: [place] [address] PATHOLOGIST SUPPLY AIDE EDMOND NORTH M.D. Performed By: #### T 4F, TSH3, T3F #### [facility] [address] [place] [address] Bilirubin.total [Mass/volume ] in Serum or PlasmaOrdered By: Ashley Dickerson on 04-13-2024 Bilirubin [Mass/Vol] 0.4 mg/dL Normal 0.3-1.0 [facility] Comment on above: Performed By: #### T 4F, TSH3, T3F #### [address] angio neckon 04-13-[address] [place] [address] CT Scan Report Signed Patient: Karuna Reynaga MR#: [id number] 289 : 1945 Acct:[id number] Age/Sex: 79 / F ADM Date: 04/13/24 Loc: ER Room: Type: PRE ER Attending Dr: Copies to: Ashley Dickerson APRN Ordering Provider: Ashley Dickerson APRN Date of Service: 04/13/24 CT/CT angio head: acute stroke/neuro deficits ([id number]) CT/CT angio neck: acute stroke/neuro deficits CTA Head and Neck TECHNIQUE: Axial imaging of the head and neck with 2-D and 3-D reconstruction. 90cc of Isovue-[id number]. The CT exam was performed using one or more the following dose reduction techniques: Automated exposure control, adjustment of the MA and/or Kv according to patient size, or use of the iterative reconstruction technique. Stenoses were measured using the NASCET criteria. COMPARISON: None HISTORY: Syncopal episode The visualized aortic arch and great vessels are unremarkable. Subclavian arteries are patent No carotid dissection, critical stenosis or occlusion identified. No vertebral dissection, occlusion or abrupt cut off identified. The carotid siphons and vertebral basilar systems are patent. No intracranial aneurysm, dissection, abrupt cut off or critical stenosis identified.. . CT/CT angio head IMPRESSION: No occlusion, critical stenosis or dissection of the extracranial or intracranial circulation. Impression dictated by: Jamal Bird M.D.04/13/2024 4:31 PM Dictation Location: [place] [address] Transcribed By: [facility] 04/13/24 1631 Dictated By: Jamal Bird DO 04/13/24 1626 Signed By: 04/13/24 1631 Normal [facility] CT head stroke alert wo tejal n 04-13-2024 CT head stroke alert wo [facility] [place] [address] [place] [address] CT Scan Report Signed Patient: Karuna Reynaga MR#: [id number] 289 : 1945 Acct:[id number] Age/Sex: 79 / F ADM Date: 04/13/24 Loc: ER Room: Type: PRE ER Attending Dr: Copies to: Ashley Dickerson APRN Ordering Provider: Ashley Dickerson APRN Date of Service: 04/13/24 CT/CT head stroke alert wo con: acute stroke/neuro deficits Unenhanced head CTstroke alert TECHNIQUE: Contiguous axial imaging of the head. The CT exam was performed using one or more the following dose reduction techniques: Automated exposure control, adjustment of the MA and/or Kv according to patient size, or use of the iterative reconstruction technique. COMPARISON: None HISTORY: Slurred speech. Altered mental status. Syncopal episode. VENTRICLES: Within normal limits ATROPHY: Diffuse atrophy BRAIN PARENCHYMA: Decreased density of the white matter is most consistent with chronic small vessel disease. Bilateral frontal regions of gliosis/encephalomalacia. HEMORRHAGE: None HERNIATION: No mass effect or herniation INFARCTION: No recent vascular distribution infarction is seen. EXTRA-AXIAL FLUID COLLECTIONS None MIDBRAIN: Unremarkable HARSH: Unremarkable MEDULLA: Unremarkable SINUSES: Unremarkable ORBITS: Grossly unremarkable MASTOIDS: Unremarkable BONY STRUCTURES Intact ADDITIONAL FINDINGS: CT/CT head stroke alert wo con IMPRESSION: No acute findings. 4:05 PM 04/13/24 Impression dictated by: Jamal Bird M.D.04/13/2024 4:11 PM Dictation Location: [place] [address] Transcribed By: [facility] 04/13/24 1611 Dictated By: Jamal Bird DO 04/13/24 1607 Signed By: 04/13/24 1611 Normal [facility] Calcium [Mass/volume] in Ser um or PlasmaOrdered By: Ashley Dickerson on 04-13-2024 Calcium [Mass/Vol] 8.7 mg/dL Normal 8.6-10.3 [facility] Comment on above: Performed By: #### T 4F, TSH3, T3F #### [facility] [address] Capillary blood glucose marce urement by glucometer (mass/volume)Ordered By: Ashley Dickerson on 04-13-2024 Glucose [Mass/Vol] 167 mg/dL Normal [facility] Comment on above: Random Glucose Refer ence Range is dependent on time and content of last meal. Glucose of more than 200 mg/dL in a nonstressed, ambulatory subject supports the diagnosis of Diabetes Mellitus. Result Comment: [place] Glucose Reference Range is dependent on time and content of last meal. Glucose of more than 200 mg/dL in a nonstressed, ambulatory subject supports the diagnosis of Diabetes Mellitus. Performed By: #### T 4F, T3F, TSH3 #### [facility] [address] [place] [address] [place] Carbon dioxide, total [Moles /volume] in Serum or PlasmaOrdered By: Ashley Dickerson on 04-13-2024 CO2 [Moles/Vol] 28.0 mmol/L Normal 21.0-31.0 [facility] Comment on above: Performed By: #### T 4F, TSH3, T3F #### [facility] [address] [place] [address] [place] Chloride [Moles/volume] in S sun or PlasmaOrdered By: Ashley Dickerson on 04-13-2024 Chloride [Moles/Vol] 105 mmol/L Normal 98-107 [facility] Comment on above: Performed By: #### T 4F, TSH3, T3F #### [address] Complete Blood Count Auto Di ffon 04-13-2024 Mean Corpuscular HGB Conc 32.8 g/dL Normal 32.0-35.0 [facility] Comment on above: Performed By: #### T 4F, TSH3, T3F #### [address] Monocytes/100 WBC (Bld) 18.47 % Normal 0.00-20.00 [facility] Comment on above: Performed By: #### T 4F, TSH3, T3F #### [address] NRBC% 0.1 /100{WBC} Normal 0-0.5 [facility] Comment on above: Performed By: #### T 4F, TSH3, T3F #### [facility] [address] [place] [address] Comprehensive Metabolic Pane geovanny 04-13-2024 Albumin [Mass/Vol] 3.6 g/dL Normal 3.5-5.7 [facility] Comment on above: Performed By: #### T 4F, TSH3, T3F #### [place] [address] [place] Creatinine Clr Calc Pharmacy 42.88 Normal [facility] Comment on above: Result Comment: PERF ORMED BY: [place] [address] PATHOLOGIST SUPPLY AIDE EDMOND NORTH M.D. Performed By: #### T 4F, TSH3, T3F #### [address] [address] GFR/1.73 sq M.predicted MDRD (S/P/Bld) [Vol rate/Area] mL/min/{1.73_m2} Normal [facility] Comment on above: Performed By: #### T 4F, TSH3, T3F #### [facility] [address] [place] [address] [place] Creatine Kinaseon 04-13-2024 CK [Catalytic activity/Vol] 51 U/L Normal 30-223 [facility] Comment on above: Performed By: #### T 4F, TSH3, T3F #### [facility] [address] [place] [address] [place] Creatine kinase [Enzymatic a ctivity/volume] in Serum or PlasmaOrdered By: Albert Palacio on 04-13-2024 CK [Catalytic activity/Vol] 56 U/L Normal 30-223 [facility] Comment on above: Performed By: #### T 4F, T3F, TSH3 #### [facility] [address] [place] [address] [place] Creatinine [Mass/volume] in Serum or PlasmaOrdered By: Ashley Dickerson on 04-13-2024 Creatinine [Mass/Vol] 0.92 mg/dL Normal 0.60-1.20 [facility] Comment on above: Performed By: #### T 4F, TSH3, T3F #### [place] [id number] [facility] ECG 12 lead ECGon 04-13-2024 [address] [place] [address] Electrocardiograph Report Signed Patient: Karuna Reynaga MR#: [id number] 289 : 1945 Acct:[id number] Age/Sex: 79 / F ADM Date: 04/13/24 Loc: Room: [address] [place] [address] Type: DIS IN Attending Dr: Renan Murguia MD Ordering Provider: Renan Murguia MD Date of Service: 04/13/2407/29/2214 ECG/ECG 12 lead ECG: routine Copies to: Test Reason : Blood Pressure : / mmHG Vent. Rate : 073 BPM Atrial Rate : 073 BPM P-R Int : 186 ms QRS Dur : 092 ms QT Int : 390 ms P-R-T Axes : 057 018 040 degrees QTc Int : 429 ms Normal sinus rhythm Incomplete right bundle branch block Borderline ECG No previous ECGs available Confirmed by NICHO IVY [facility], [place]ERT ([id number]) on 04/19/2024 2:11:00 PM Referred By: Electronically Signed By:GILBERT TORRE MD [facility] Transcribed By: MUS Signed By Gilbert Torre MD, [facility] 04/19/24 1411 Normal [facility] ECG [address] [facility] [place] [address] [place] [address] Electrocardiograph Report Signed Patient: Karuna Reynaga MR#: [id number] 289 : 1945 Acct:[id number] Age/Sex: 79 / F ADM Date: 04/13/24 Loc: Room: [address] [place] [address] Type: ADM IN Attending Dr: Albert Palacio DO Ordering Provider: Ashley Dickerson APRN Date of Service: 04/13/2407/29/1553 ECG/ECG 12 lead ECG: Syncope Copies to: Test Reason : Blood Pressure : 127/061 mmHG Vent. Rate : 073 BPM Atrial Rate : 073 BPM P-R Int : 156 ms QRS Dur : 088 ms QT Int : 386 ms P-R-T Axes : 066 116 014 degrees QTc Int : 425 ms Normal sinus rhythm Right axis deviation Possible Right ventricular hypertrophy Abnormal ECG When compared with ECG of 26-DEC-2022 13:42, Criteria for Anterior infarct are no longer present Confirmed by SIMONE NAVARRO MD ([id number]) on 04/14/2024 12:23:47 AM Referred By: Electronically Signed By:SIMONE NAVARRO MD Transcribed By: MUS Signed By Simone Navarro MD 04/14/24 0024 Normal [facility] Erythrocyte distribution wid th [Ratio] by Automated countOrdered By: Ashley Dickerson on 04-13-2024 Erythrocyte distribution width (RBC) [Ratio] 12.7 % Normal 11.9-15.3 [facility] Comment on above: Performed By: #### T 4F, TSH3, T3F #### [place] [address] [place] Erythrocytes [#/volume] in B lood by Automated countOrdered By: Ashley Dickerson on 04-13-2024 RBC (Bld) [#/Vol] 4.32 10*6/uL Normal 3.60-5.00 [facility] Comment on above: Performed By: #### T 4F, TSH3, T3F #### [facility] [address] [place] [address] [facility] Glucose Poct Glucometerson 0 04-13-2024 Commemt1 Glu2: Cleaned Meter Normal [facility] Comment on above: Result Comment: PERF ORMED BY: [facility] [address] [place] [address] PATHOLOGIST SUPPLY AIDE EDMOND NORTH M.D. Performed By: #### T 4F, T3F, TSH3 #### [place] [address] [place] Glucose [Mass/volume] in Ser um or PlasmaOrdered By: Ashley Dickerson on 04-13-2024 Glucose [Mass/Vol] 173 mg/dL High 70-100 [facility] Comment on above: ADA recommended refe rence rangeRandom Glucose Reference Range is dependent on time and content of last meal. Glucose of more than 200 mg/dL in a nonstressed, ambulatory subject supports the diagnosis of Diabetes Mellitus. Result Comment: [place] Glucose Reference Range is dependent on time and content of last meal. Glucose of more than 200 mg/dL in a nonstressed, ambulatory subject supports the diagnosis of Diabetes Mellitus. ADA recommended reference range Performed By: #### T 4F, TSH3, T3F #### [facility] [address] [place] [address] [place] Hematocrit [Volume Fraction] of Blood by Automated countOrdered By: Ashley Dickerson on 04-13-2024 Hematocrit (Bld) [Volume fraction] 38.7 % Normal 34.0-46.4 [facility] Comment on above: Performed By: #### T 4F, TSH3, T3F #### [place] [id number] [place] Hemoglobin [Mass/volume] in BloodOrdered By: Ashley Dickerson on 04-13-2024 Hemoglobin (Bld) [Mass/Vol] 12.7 g/dL Normal 11.8-15.4 [facility] Comment on above: Performed By: #### T 4F, TSH3, T3F #### [facility] [address] [place] [address] INR in Platelet poor plasma by Coagulation assayOrdered By: Ashley Dickerson on 04-13-2024 INR Coag (PPP) [Relative time] 1.1 {INR} Normal [facility] Comment on above: INR Therapeutic Rang e A) Pre- and Peroperative OAT started two weeks before surgery. NOT HIP SURGERY: 1.5 - 2.5 HIP SURGERY: 2 - 3B) Primary and secondary prevention of venous THROMBOSIS: 2 - 3C) Active venous thrombosis, pulmonary embolismand prevention of recurrent venous thrombosis: 2 - 3D) Prevention of arterial thromboembolismincluding patients with mechanical heart valves: 3 - 4.5 Result Comment: INR Therapeutic Range A) Pre- and Peroperative OAT started two weeks before surgery. NOT HIP SURGERY: 1.5 - 2.5 HIP SURGERY: 2 - 3 B) Primary and secondary prevention of venous THROMBOSIS: 2 - 3 C) Active venous thrombosis, pulmonary embolism and prevention of recurrent venous thrombosis: 2 - 3 D) Prevention of arterial thromboembolism including patients with mechanical heart valves: 3 - 4.5 Performed By: #### T 4F, TSH3, T3F #### [facility] [address] [place] [address] [place] ISTAT XRay CREon 04-13-2024 ISTAT GFR 51.432 Normal [facility] Comment on above: Result Comment: PERF ORMED BY: [place] [address] PATHOLOGIST SUPPLY AIDE EDMOND NORTH M.D. Performed By: #### T 4F, T3F, TSH3 #### [facility] [address] [place] [address] Leukocytes [#/volume] correc rob for nucleated erythrocytes in Blood by Automated counOrdered By: Ashley Dickerson on 04-13-2024 WBC corrected for nucl RBC Auto (Bld) [#/Vol] 6.3 10*3/uL 3.8-11.6 [facility] Leukocytes [#/volume] in Blo od by Automated countOrdered By: Ashley Dickerson on 04-13-2024 WBC (Bld) [#/Vol] 6.3 10*3/uL Normal 3.8-11.6 [facility] Comment on above: Performed By: #### T 4F, TSH3, T3F #### [facility] [address] Lymphocytes [#/volume] in Bl ood by Automated countOrdered By: Ashley Dickerson on 04-13-2024 Lymphocytes (Bld) [#/Vol] 1.8 10*3/uL Normal 1.00-4.8 [facility] Comment on above: Performed By: #### T 4F, TSH, T3F #### [facility] [address] [place] [address] Lymphocytes/100 leukocytes i n Blood by Automated countOrdered By: Ashley Dickerson on 04-13-2024 Lymphocytes/100 WBC (Bld) 29.5 % Normal . [facility] Comment on above: Performed By: #### T 4F, TSH, T3F #### [facility] [address] [place] [address] MCH [Entitic mass] by Automa rob countOrdered By: Ashley Dickerson on 04-13-2024 MCH (RBC) [Entitic mass] 29.4 pg Normal 24.7-34.3 [facility] Comment on above: Performed By: #### T 4F, TSH3, T3F #### [facility] [address] [place] [address] MCHC Auto (RBC) [Mass/Vol]Or dered By: Ashley Dickerson on 04-13-2024 MCHC (RBC) [Mass/Vol] 32.8 g/dL 32.0-35.0 [facility] MCV [Entitic volume] by Auto mated countOrdered By: Ashley Dickerson on 04-13-2024 MCV (RBC) [Entitic vol] 89.6 fL Normal 80-100 [facility] Comment on above: Performed By: #### T 4F, TSH3, T3F #### [facility] [address] [place] [address] [place] Monocyte distribution width [Entitic volume] in Blood by AutomatedOrdered By: Ashley Dickerson on 04-13-2024 Monocyte distribution width Auto (Bld) [Entitic vol] 18.47 % 0.00-20.00 [facility] Neutrophils [#/volume] in Bl ood by Automated countOrdered By: Ashley Dickerson on 04-13-2024 Neutrophils (Bld) [#/Vol] 3.6 10*3/uL Normal 1.8-7.7 [facility] Comment on above: Performed By: #### T 4F, , T3F #### [facility] [address] [place] [address] No Panel InformationOrdered By: Ashley Dickerson on 04-13-2024 Bedside Estimated GFR (eGFR) 51.432 [facility] Bedside Glucose Comment Glu2: cleaned meter [facility] Estimated GFR (CKD-EPI) > 60.0 mL/Min [facility] Creatinine Clearance (Chem 42.88 [facility] Nucleated erythrocytes [Pres ence] in Blood by Automated countOrdered By: Ashley Dickerson on 04-13-2024 Nucleated RBC Auto Ql (Bld) 0.1 /100{WBC} 0-0.5 [facility] Partial Thromboplastin Timeo n 04-13-2024 aPTT Coag (Bld) [Time] 28.3 s Normal 25.1-36.5 [facility] Comment on above: Result Comment: A he matocrit value greater than 55% may lead to inaccurate results in coagulation testing. Patients having hematocrit values >55% require a special collection tube for coagulation studies. Please contact the laboratory at [phone] for redraw instructions. PERFORMED BY: [place] [address] PATHOLOGIST SUPPLY AIDE EDMOND NORTH M.D. Performed By: #### T 4F, TSH, T3F #### [facility] [address] [place], [place] [id number] [facility] Platelet mean volume [Entiti c volume] in Blood by Automated countOrdered By: Ashley Dickerson on 04-13-2024 Platelet mean volume (Bld) [Entitic vol] 7.8 fL Normal 6.3-10.7 [facility] Comment on above: Performed By: #### T 4F, TSH3, T3F #### [facility] [address] [place] [address] [facility] Platelets [#/volume] in Bloo d by Automated countOrdered By: Ashley Dickerson on 04-13-2024 Platelets (Bld) [#/Vol] 221 10*3/uL Normal 150-450 [facility] Comment on above: Performed By: #### T 4F, TSH3, T3F #### [facility] [address] Potassium [Moles/volume] in Serum or PlasmaOrdered By: Ashley Dickerson on 04-13-2024 Potassium [Moles/Vol] 4.1 mmol/L Normal 3.5-5.1 [facility] Comment on above: Performed By: #### T 4F, TSH3, T3F #### [facility] [address] [place], [place] [address] [facility] Protein [Mass/volume] in Ser um or PlasmaOrdered By: Ashley Dickesron on 04-13-2024 Protein [Mass/Vol] 6.6 g/dL Normal 6.4-8.9 [facility] Comment on above: Performed By: #### T 4F, TSH3, T3F #### [facility] [address] [place], [place] [address] [facility] Prothrombin time (PT)Ordered By: sAhley Dickerson on 04-13-2024 PT Coag (PPP) [Time] 12.5 s Normal 9.0-12.9 [facility] Comment on above: A hematocrit value g reater than 55% may lead to inaccurate results in coagulation testing. Patients having hematocrit values >55% require a special collection tube for coagulation studies. Please contact the laboratory at [phone] for redraw instructions. Result Comment: A he matocrit value greater than 55% may lead to inaccurate results in coagulation testing. Patients having hematocrit values >55% require a special collection tube for coagulation studies. Please contact the laboratory at [phone] for redraw instructions. Performed By: #### T 4F, TSH3, T3F #### [address] Serum globulin measurement b y calculation (mass/volume)Ordered By: Ashley Dickerson on 04-13-2024 Globulin (S) [Mass/Vol] 3.0 g/dL [facility] Comment on above: Performed By: #### T 4F, TSH3, T3F #### [address] Serum or plasma albumin/glob ulin mass ratioOrdered By: Ashley Dickerson on 04-13-2024 Albumin/Globulin [Mass ratio] 1.2 {ratio} [facility] Comment on above: Performed By: #### T 4F, TSH3, T3F #### [address] Serum or plasma anion gap de terminationOrdered By: Ashley Dickerson on 04-13-2024 Anion gap [Moles/Vol] 9.1 mmol/L Normal 6.0-15.0 [facility] Comment on above: Performed By: #### T 4F, TSH3, T3F #### [address] Sodium [Moles/volume] in Ser um or PlasmaOrdered By: Ashley Dickerson on 04-13-2024 Sodium [Moles/Vol] 138 mmol/L Normal 136-145 [facility] Comment on above: Performed By: #### T 4F, TSH3, T3F #### [address] Troponin I High Sensitivityo n 04-13-2024 Troponin I High Sensitivity 454.0 pg/mL Off scale high 0.0-15.0 [facility] Comment on above: Result Comment: Crit ical Result : Called to and read back by: HUGH BRUMFIELD at: 04/13/2024 19:01:57 by:[id number] PERFORMED BY: [place] [address] PATHOLOGIST SUPPLY AIDE EDMOND NORTH M.D. Performed By: #### T 4F, T3F, TSH3 #### [facility] [address] [place], [place] [address] [facility] Troponin I High Sensitivity 482.4 pg/mL Off scale high 0.0-15.0 [facility] Comment on above: Result Comment: Crit ical Result : Called to and read back by: SOREN BURDEN at: 04/13/2024 17:12:51 by:[id number] PERFORMED BY: [place] [address] PATHOLOGIST SUPPLY AIDE EDMOND NORTH M.D. Performed By: #### T 4F, TSH3, T3F #### [address] [address] [facility] Troponin I.cardiac [Mass/vol ume] in Serum or Plasma by Detection limit <= 0.01 ng/Ordered By: Albert Palacio on 04-13-2024 Troponin I.cardiac DL <= 0.01 ng/mL [Mass/Vol] 454.0 pg/mL 0.0-15.0 [facility] Comment on above: Critical Result : Ca lled to and read back by: HUGH BRUMFIELD at: 04/13/2024 19:01:57 by:[id number] Urea nitrogen [Mass/volume] in Serum or PlasmaOrdered By: Ashley Dickerson on 04-13-2024 Urea nitrogen [Mass/Vol] 19 mg/dL Normal 7-25 [facility] Comment on above: Performed By: #### T 4F, TSH3, T3F #### [facility] [address] [place], [place] [address] [facility] Whole blood creatinine measu rementOrdered By: Ashley Dickerson on 04-13-2024 Creatinine [Mass/Vol] 1.1 mg/dL Normal 0.6-1.3 [facility] Comment on above: ER/ESD physician is notified/shown all ISTAT results.Critical values may be confirmed by laboratory testing ifdeemed necessary by ER attending doctor. Result Comment: ER/E SD physician is notified/shown all ISTAT results. Critical values may be confirmed by laboratory testing if deemed necessary by ER attending doctor. Performed By: #### T 4F, T3F, TSH3 #### [place] [id number] [facility] XR chest 1V portableon 04-13 XR chest 1V portable [facility] [place] [address] [place] [address] XRay Report Signed Patient: Karuna Reynaga MR#: [id number] 289 : 1945 Acct:[id number] Age/Sex: 79 / F ADM Date: 04/13/24 Loc: ER Room: Type: PRE ER Attending Dr: Copies to: Ashley Dickerson APRN Ordering Provider: Ashley Dickerson APRN Date of Service: 04/13/24 XR/XR chest 1V portable: Syncope Plain film chest Single view HISTORY: Syncopal episode COMPARISON: 02/13/24 FINDINGS: SUPPORT DEVICES: None POSTSURGICAL CHANGES: LEFT shoulder fixation HEART: Within normal limits PULMONARY [place]: Within normal limits MEDIASTINUM: Unremarkable LUNGS AND PLEURA: No acute lung process, pleural effusion or pneumothorax identified. Similar interstitial prominence. Similar mild RIGHT hemidiaphragm elevation BONY STRUCTURES: Intact ADDITIONAL FINDINGS None XR/XR chest 1V portable IMPRESSION: No acute process. Impression dictated by: Jamal Bird M.D.04/13/2024 4:26 PM Dictation Location: [place] [address] Transcribed By: [facility] 04/13/24 1626 Dictated By: Jamal Bird DO 04/13/24 1624 Signed By: 04/13/24 1626 Normal [facility] ECG 12 Leadon 03-10-2024 [facility] Work Phone: Normal sinus rhythm cannot exclude pattern of septal myocardial infarction no acute abnormalities [facility] Work Phone: CNPNon 02-26-2024 [facility] Telephone ([facility]) -- KARUNA REYNAGA ([id number]) 1945 F Date Time Provider Department 02/26/24 [...] Encounter Status:Closed by KORTNEY LINN on 02/26/24 [facility] Telephone ([facility]) -- KARUNA REYNAGA ([id number]) 1945 F Date Time Provider Department 02/26/24 UBALDO DUBOSE [facility] During your visit today, we recorded the following information about you: Eileen Lucas, TEAGAN 02/26/2024 4:05 PM Signed Received outside imaging reports via electronic fax. Uploaded to scanned documents for provider to review. John Madison 02/27/2024 8:44 AM Signed Imported external imaging report from [employer], dated 02/22/2024. Please allow time delay for documents to appear in Epic (Scanned Documents Tab). Images can take up to 24 hours to appear in Epic. John Madison 02/27/2024 8:59 AM Signed Imported external CT report from [facility], dated 02/25/2024. Please allow time delay for [...] Encounter Status:Closed by EILEEN LUCAS on 02/26/24 Normal [facility] CT angio chest PE protocolon 02-25-2024 CT angio chest PE protocol [facility] [place] [address] CT Scan Report Signed Patient: Karuna Reynaga MR#: [id number] 289 : 1945 Acct:[id number] Age/Sex: 79 / F ADM Date: 02/25/24 Loc: CT Room: Type: [facility] Attending Dr: Jose Luis Lockhart RN, [...] LUNGS: Diffuse groundglass interstitial prominence. The basilar atelectasis/scarring. PLEURAL EFFUSION: None PNEUMOTHORAX: No pneumothorax seen. CHEST WALL: No abnormality AXILLA: Unremarkable BONY STRUCTURES Intact UPPER ABDOMEN: Cholelithiasis. CT/CT angio chest PE protocol IMPRESSION: No acute pulmonary embolus. Diffuse groundglass basilar parenchymal density which may be related to interstitial lung disease.. Basilar linear atelectasis/scarring. Impression dictated by: Jamal Bird M.D.02/25/2024 2:40 PM Dictation Location: [place] [address] Transcribed By: [facility] 02/25/24 1440 Dictated By: Jamal Bird DO 02/25/24 1429 Signed By: 02/25/24 1440 Normal [facility] ISTAT XRay CREon 02-25-2024 ISTAT GFR > 60.0 Normal [facility] Comment on above: Result Comment: PERF ORMED BY: [place] [address] PATHOLOGIST SUPPLY AIDE EDMOND NORTH M.D. Performed By: #### T 4F, T3F, TSH3 #### [facility] [address] No Panel InformationOrdered By: JOSE LUIS LOCKHART on 02-25-2024 Bedside Estimated GFR (eGFR) > 60.0 [facility] Whole blood creatinine measu rementOrdered By: JOSE LUIS LOCKHART on 02-25-2024 Creatinine [Mass/Vol] 0.7 mg/dL Normal 0.6-1.3 [facility] Comment on above: ER/ESD physician is notified/shown all ISTAT results.Critical values may be confirmed by laboratory testing ifdeemed necessary by ER attending doctor. Result Comment: ER/E SD physician is notified/shown all ISTAT results. Critical values may be confirmed by laboratory testing if deemed necessary by ER attending doctor. Performed By: #### T 4F, T3F, TSH3 #### [facility] [address] XR CHEST 2 VIEWSon XR CHEST 2 [...] XR chest 2V*on 02-13-2024 XR chest 2V* [facility] [place] [address] [place] [address] XRay Report Signed Patient: Karuna Renyaga MR#: [id number] 289 : 1945 Acct:[id number] Age/Sex: 79 / F ADM Date: 02/13/24 [facility] Type: [facility] Attending Dr: Nallely SHIELDS Copies to: [...] Emma Muñoz M.D.02/13/2024 7:24 PM Dictation Location: [facility] Transcribed By: [facility] 02/13/241923 Dictated By: Emma Muñoz II, MD 02/13/241921 Signed By: 02/13/241923 Normal [facility] Juany 01-22-2024 [facility] Telephone ([facility]) -- KARUNA REYNAGA ([id number]) 1945 F Date Time Provider Department 01/22/24 UBALDO DUBOSE During your visit today, we recorded the following information about you: John Madison 01/22/2024 2:49 PM Signed Imported external notification of equipment delivery from [email or web address], dated 01/16/2024. Please allow time delay for [...] Encounter Status:Closed by JOHN MADISON on 01/23/24 [facility] CNOVon 12-28-2023 CNOV Office Visit ([facility] ) -- KARUNA REYNAGA ([id number]) 1945 F Date Time Provider Department 12/28/23 1:30 PM UBALDO DUBOSE [facility] During your visit today, we recorded the following information about you: Temperature Pulse Respiration Blood pressure 97.6 degrees 67/minute 16/minute 137/65 Weight 79.4 kg Ubaldo Dubose MD 2024 1:33 PM [facility] [place] Karuna Reynaga is a 78 year old female here for evaluation by the [facility] Interstitial Lung Disease Team. 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 SOCIAL HISTORY Social History Tobacco Use Smoking [...] acute distr (more content not included)... Normal [facility] CT Chest WO contraston 12-28 IMPRESSION: 1. There are scattered reticular opacities [...] any questions regarding this interpretation, please call [phone]. If you are unable to reach us at the number above, please feel free to contact [facility] eRadiology at [phone]. DIVISION OF RADIOLOGY * * *Final Report* * * DATE OF EXAM: Dec 27 2023 1:09PM [facility] 0541 - CT CHEST WO IVCON / [...] calcified gallstone is noted in the gallbladder. Supervisor Heat Treating (topogram) images: No additional findings. DIVISION OF RADIOLOGY Provider, Dee Zaida [facility] - 12/28/2023 * * *Final Report* * * DATE OF EXAM: Dec 27 2023 1:09PM [facility] 0541 - CT CHEST WO IVCON / [...] calcified gallstone is noted in the gallbladder. Supervisor Heat Treating (topogram) images: No additional findings. IMPRESSION IMPRESSION: 1. There are scattered reticular opacities [...] any questions regarding this interpretation, please call [phone]. If you are unable to reach us at the number above, please feel free to contact [facility] eRadiology at [phone]. [facility] CT Chest WO contrastOrdered By: Ccf Provider on 12-28-2023 [facility] [address] CHEST WO IVCONon 12-27-19 CT CHEST WO IVCON * * *Final Report* * * DATE OF EXAM: Dec 27 2023 1:09PM [facility] 0541 - CT CHEST WO IVCON / [...] calcified gallstone is noted in the gallbladder. Supervisor Heat Treating (topogram) images: No additional findings. IMPRESSION: 1. [...] any questions regarding this interpretation, please call [phone]. If you are unable to reach us at the number above, please feel free to contact [facility] eRadiology at [phone]. [id number] Normal [facility] CT Chest WO contraston 12-27 Radiology Study observation (narrative) [facility] LUNG DIFFUSION CAPACITY (SHANKAR O)on 12-25-2023 [facility] SPIROMETRY WITH DILATOR IF O BSTRUCTEDon 12-25-2023 DLCO (ml/min/mmHg) 9.76 ml/min/mmHg [facility] DLCO/VA (ml/min/mmHg/L) 4.48 ml/min/mmHg/L [facility] RBR57-06% PRE (L/S) 1.32 L/S [facility] FEV1 PRE (L) 1.05 L [facility] FEV1/FVC PRE (%) 89 % [facility] FVC PRE (L) 1.19 L [facility] PEF PRE (L/S) 1.90 L/S [facility] VA (L) 2.18 L [facility] CNPNon 11-28-2023 CNPN Telephone (PULMMN) -- KARUNA REYNAGA ([id number]) 1945 F Date Time Provider Department 11/28/23 [...] Fully Assessed Reason for Visit: Patient Question [9637] Primary Visit Diagnosis:ILD (interstitial lung disease) (HCC) [J84.9] Other Visit Diagnoses:Shortness of breath [R06.02] Interstitial pulmonary disease (HCC) [J84.9] Order(s):SPIROMETRY WITH DILATOR IF OBSTRUCTED [2374951] Order #: [id number]: 1 FUTURE LUNG DIFFUSION CAPACITY (DLCO) [5255802] Order #: [id number]: [address] CHEST WO IVCON [8645533] Order #: [id number] FUTURE Prescriptions as of 12/11/2023 - levothyroxine (SYNTHROID) 50 mcg tablet 50 mcg. - simvastatin (ZOCOR) 40 mg tablet Take 40 mg by mouth daily at bedtime. - tiZANidine HCl 4 mg capsule Take 4 mg by mouth. - diphenoxylate HCl/atropine (LOMOTIL ORAL) Take by mouth. - albuterol sulfate 90 mcg/actuation aebs Inhale as instructed. - thymol/chlorophyllin (CHLOROPHYLL ORAL) Take by mouth. - ipratropium-albuterol (DUONEB) 0.5 mg-3 mg(2.5 mg base)/3 mL [...] Status:Closed by RED ANDERSON on 11/29/23 Normal [facility] XR chest 2V*on 11-21-2023 XR chest 2V* [facility] [place] [address] [place], [place] [id number] XRay Report Signed Patient: Karuna Reynaga MR#: [id number] : 1945 Acct:[id number] Age/Sex: 78 / F ADM Date: 11/21/23 Loc: XD Room: Type: [facility] Attending Dr: Jamal Alvarez DO Copies [...] Jorge Jr., D.O.11/21/2023 7:04 PM Dictation Location: [place] [address] Transcribed By: [facility] 11/21/231903 Dictated By: Frankie Jorge Jr, DO 11/21/231903 Signed By: 11/21/231903 Normal [facility] DEXA BONE DENSITYon 10-26-20 DEXA [...] BY: Baron Montenegro MD Normal Not Available Thyrotropin [Units/volume] i n Serum or PlasmaOrdered By: Valdez Castro on 10-16-2023 TSH Qn 0.51 m[IU]/L Normal 0.45-5.33 [facility] Comment on above: Result Comment: PERF ORMED BY: [place] [address] PATHOLOGIST SUPPLY AIDE EDMOND NORTH M.D. Performed By: #### T 4F, TSH3, T3F #### [facility] [address] [place] [address] Thyroxine (T4) free [Mass/vo lume] in Serum or PlasmaOrdered By: Valdez Castro on 10-16-2023 Free T4 [Mass/Vol] 0.74 ng/dL Normal 0.61-1.12 [facility] Comment on above: Performed By: #### T 4F, TSH3, T3F #### [facility] [address] [place] [address] [place] Triiodothyronine (T3) Freeon 10-16-2023 Triiodothyronine (T3) Free 3.08 pg/mL Normal 2.50-3.90 [facility] Comment on above: Result Comment: PERF ORMED BY: [place] [address] PATHOLOGIST SUPPLY AIDE EDMOND NORTH M.D. Performed By: #### T 4F, TSH3, T3F #### [facility] [address] [place], [place] [address] [place] Triiodothyronine (T3) Free [ Mass/volume] in Serum or PlasmaOrdered By: Valdez Castro on 10-16-2023 Free T3 [Mass/Vol] 3.08 pg/mL 2.50-3.90 [facility] Free T4 (Free Thyroxine)on 0 07-16-2023 Free T4 [Mass/Vol] 0.75 ng/dL Normal 0.61-1.12 [facility] Comment on above: Performed By: #### T 4F, T3F, TSH3 #### [address] Thyroid Stimulating Hormoneo n 07-16-2023 TSH Qn 0.07 m[IU]/L Low 0.45-5.33 [facility] Comment on above: Result Comment: PERF ORMED BY: [place] [address] PATHOLOGIST SUPPLY AIDE EDMOND NORTH M.D. Performed By: #### T 4F, T3F, TSH3 #### [address] Triiodothyronine (T3) Freeon 07-16-2023 Triiodothyronine (T3) Free 2.81 pg/mL Normal 2.50-3.90 [facility] Comment on above: Result Comment: PERF ORMED BY: [place] [address] PATHOLOGIST SUPPLY AIDE EDMOND NORTH M.D. Performed By: #### T 4F, T3F, TSH3 #### [address] Basophils Auto (Bld) [#/Vol] Ordered By: Hermes Kennedy on 12-26-2022 Basophils (Bld) [#/Vol] 0.0 10*3/uL 0.0-0.2 [facility] Basophils/100 WBC Auto (Bld) Ordered By: Hermes Kennedy on 12-26-2022 Basophils/100 WBC (Bld) 0.5 % . [facility] Creatinine and Glomerular fi ltration rate.predicted panel (S/P/Bld)Ordered By: Hermes Kennedy on 12-26-2022 Creatinine [Mass/Vol] 0.61 mg/dL 0.44-1.03 [facility] Eosinophils Auto (Bld) [#/Vo l]Ordered By: Hermes Kennedy on 12-26-2022 Eosinophils (Bld) [#/Vol] 0.1 10*3/uL 0.0-0.45 [facility] Eosinophils/100 WBC Auto (Bl d)Ordered By: Hermes Kennedy on 12-26-2022 Eosinophils/100 WBC (Bld) 2.3 % . [facility] Erythrocyte distribution wid th Auto (RBC) [Ratio]Ordered By: Hermes Kennedy on 12-26-2022 Erythrocyte distribution width (RBC) [Ratio] 13.2 % 11.9-15.3 [facility] Estimated glomerular filtrat ion rate (GFR) non- AmericanOrdered By: Hermes Kennedy on 12-26-2022 GFR/1.73 sq M.predicted among non-blacks MDRD (S/P/Bld) [Vol rate/Area] > 60 mL/Min [facility] Hematocrit Auto (Bld) [Volum e fraction]Ordered By: Hermes Kennedy on 12-26-2022 Hematocrit (Bld) [Volume fraction] 38.3 % 34.0-46.4 [facility] Hemoglobin [Mass/volume] in BloodOrdered By: Hermes Kennedy on 12-26-2022 Hemoglobin (Bld) [Mass/Vol] 12.4 g/dL 11.8-15.4 [facility] Leukocytes [#/volume] correc rob for nucleated erythrocytes in Blood by Automated counOrdered By: Hermes Kennedy on 12-26-2022 WBC corrected for nucl RBC Auto (Bld) [#/Vol] 6.4 10*3/uL 3.8-11.6 [facility] Lymphocytes Auto (Bld) [#/Vo l]Ordered By: Hermes Kennedy on 12-26-2022 Lymphocytes (Bld) [#/Vol] 2.2 10*3/uL 1.00-4.8 [facility] Lymphocytes/100 WBC Auto (Bl d)Ordered By: Hermes Kennedy on 12-26-2022 Lymphocytes/100 WBC (Bld) 34.9 % . [facility] MCH Auto (RBC) [Entitic mass ]Ordered By: Hermes Kennedy on 12-26-2022 MCH (RBC) [Entitic mass] 29.5 pg 24.7-34.3 [facility] MCHC Auto (RBC) [Mass/Vol]Or dered By: Hermes Kenendy on 12-26-2022 MCHC (RBC) [Mass/Vol] 32.3 g/dL 32.0-35.0 [facility] MCV Auto (RBC) [Entitic vol] Ordered By: Hermes Kennedy on 12-26-2022 MCV (RBC) [Entitic vol] 91.2 fL 80-100 [facility] Monocytes Auto (Bld) [#/Vol] Ordered By: Hermes Kennedy on 12-26-2022 Monocytes (Bld) [#/Vol] 0.5 10*3/uL 0.0-0.8 [facility] Monocytes/100 WBC Auto (Bld) Ordered By: Hermes Kennedy on 12-26-2022 Monocytes/100 WBC (Bld) 8.3 % . [facility] Neutrophils Auto (Bld) [#/Vo l]Ordered By: Hermes Kennedy on 12-26-2022 Neutrophils (Bld) [#/Vol] 3.5 10*3/uL 1.8-7.7 [facility] Neutrophils/100 WBC Auto (Bl d)Ordered By: Hermes Kennedy on 12-26-2022 Neutrophils/100 WBC (Bld) 54.0 % . [facility] No Panel InformationOrdered By: Hermes Kennedy on 12-26-2022 Estimated GFR () > 60 mL/Min [facility] Comment on above: GFR estimated refere nce range: According to KDOQI guidelines, <60 ml/min/1.73m2 is sufficient to diagnose a patient with chronic kidney disease. Pharmacy Creatinine Clearance (Chem N/A [facility] Nucleated erythrocytes [Pres ence] in Blood by Automated countOrdered By: Hermes Kennedy on 12-26-2022 Nucleated RBC Auto Ql (Bld) 0.2 /100{WBC} 0-0.5 [facility] Platelet mean volume Auto (B ld) [Entitic vol]Ordered By: Hermes Kennedy on 12-26-2022 Platelet mean volume (Bld) [Entitic vol] 8.5 fL 6.3-10.7 [facility] Platelets Auto (Bld) [#/Vol] Ordered By: Hermes Kennedy on 02-21-2023 Platelets (Bld) [#/Vol] 218 10*3/uL 150-450 [facility] RBC Auto (Bld) [#/Vol]Ordere d By: Hermes Kennedy on 12-26-2022 RBC (Bld) [#/Vol] 4.20 10*6/uL 3.60-5.00 [facility] Serum or plasma anion gap de terminationOrdered By: Hermes Kennedy on 12-26-2022 Anion gap [Moles/Vol] 10.0 mmol/L 6.0-15.0 [facility] Serum or plasma calcium marce urement (mass/volume)Ordered By: Hermes Kennedy on 12-26-2022 Calcium [Mass/Vol] 9.1 mg/dL 8.2-10.2 [facility] Serum or plasma chloride william surement (moles/volume)Ordered By: Hermes Kennedy on 12-26-2022 Chloride [Moles/Vol] 104 mmol/L 95-114 [facility] Serum or plasma glucose marce urement (mass/volume)Ordered By: Hermes Kennedy on 12-26-2022 Glucose [Mass/Vol] 80 mg/dL 70-100 [facility] Comment on above: ADA recommended refe rence rangeRandom Glucose Reference Range is dependent on time and content of last meal. Glucose of more than 200 mg/dL in a nonstressed, ambulatory subject supports the diagnosis of Diabetes Mellitus. Serum or plasma potassium me asurement (moles/volume)Ordered By: Hermes Kennedy on 12-26-2022 Potassium [Moles/Vol] 4.3 mmol/L 3.5-5.1 [facility] Serum or plasma sodium measu rement (moles/volume)Ordered By: Hermes Kennedy on 12-26-2022 Sodium [Moles/Vol] 139 mmol/L 136-146 [facility] Serum or plasma total carbon dioxide measurement (moles/volume)Ordered By: Hermes Kennedy on 12-26-2022 CO2 [Moles/Vol] 29.3 mmol/L 22.0-30.0 [facility] Serum or plasma urea nitroge n measurement (mass/volume)Ordered By: Hermes Kennedy on 02-21-2023 Urea nitrogen [Mass/Vol] 21 mg/dL 07-28 [facility] WBC Auto (Bld) [#/Vol]Ordere d By: Hermes Kennedy on 12-26-2022 WBC (Bld) [#/Vol] 6.4 10*3/uL 3.8-11.6 [facility] CULTURE URINEon 04-05-2022 CULTURE URINE Culture Observations : NO GROWTH. Normal [facility] Comment on above: Performed By: #### U RCX #### [facility] [address] [place] [address] Dr. Mojgan Daily UA RANDOM W/MICROSCOPICon BACTERIA NONE SEEN Normal NONE SEEN [facility] Comment on above: Performed By: #### U AMIC #### [facility] [address] [place] [address] Dr. Mojgan Daily Bilirubin Ql (U) Negative Normal NEGATIVE [facility] Comment on above: Performed By: #### U AMIC #### [facility] [address] [place] [address] Dr. Mojgan Daily CA OX CRYSTALS FEW Normal [facility] Comment on above: Performed By: #### U AMIC #### [facility] [address] [place] [address] Dr. Mojgan Daily CAST NONE SEEN Normal NONE SEEN [facility] Comment on above: Performed By: #### U AMIC #### [facility] [address] [place] [address] Dr. Mojgan Daily Clarity (U) CLEAR Normal CLEAR [facility] Comment on above: Performed By: #### U AMIC #### [facility] [address] [place] [address] Dr. Mojgan Daily Color (U) LT. YELLOW Normal YELLOW [facility] Comment on above: Performed By: #### U AMIC #### [facility] [address] [place] [address] Dr. Mojgan Daily Crystals LM Nom (Urine sed) SEEN Abnormal NONE SEEN [facility] Comment on above: Performed By: #### U AMIC #### [facility] [address] [place] [address] Dr. Mojgan Daily Epithelial cells LM Ql (Urine sed) NONE SEEN Normal NONE SEEN /RARE [facility] Comment on above: Performed By: #### U AMIC #### [facility] [address] [place] [address] [address] Mojgan Daily Glucose Ql (U) Negative Normal NEGATIVE [facility] Comment on above: Performed By: #### U AMIC #### [facility] [address] [place] [address] Dr. Mojgan Daily Hemoglobin Ql (U) Negative Normal NEGATIVE [facility] Comment on above: Performed By: #### U AMIC #### [facility] [address] [place] [address] [address] Mojgan Daily Ketones Ql (U) Negative Normal NEGATIVE [facility] Comment on above: Performed By: #### U AMIC #### [facility] [address] [place] [address] Dr. Mojgan Daily LEUKOCYTES SMALL Abnormal NEGATIVE [facility] Comment on above: Performed By: #### U AMIC #### [facility] [address] [place] [address] Dr. Mojgan Daily MUCOUS NONE SEEN Normal NONE SEEN [facility] Comment on above: Performed By: #### U AMIC #### [facility] [address] [place] [address] Dr. Mojgan Daily Nitrite Ql (U) Negative Normal NEGATIVE [facility] Comment on above: Performed By: #### U AMIC #### [facility] [address] [place] [address] [address] Mojgan Daily pH (U) 5.0 [pH] Normal 5-9 [facility] Comment on above: Performed By: #### U AMIC #### [facility] [address] [place] [address] Dr. Mojgan Daily RBC NONE SEEN Abnormal 0-2 [facility] Comment on above: Performed By: #### U AMIC #### [facility] [address] [place] [address] Dr. Mojgan Daily SPEC GRAVITY 1.025 Normal 1.005-<=1.0 25 [facility] Comment on above: Performed By: #### U AMIC #### [facility] [address] [place] [address] [address] Mojgan Daily UA PROTEIN Negative Normal NEGATIVE/ TRACE [facility] Comment on above: Performed By: #### U AMIC #### [facility] [address] [place] [address] [address] Mojgan Daily URIC ACID CRYSTALS RARE Normal [facility] Comment on above: Performed By: #### U AMIC #### [facility] [address] [place] [address] [address] Mojgan Daily Urobilinogen Qn (U) 0.2 {Amanuel'U}/dL Normal 0.2 - 1. 0 [facility] Comment on above: Performed By: #### U AMIC #### [facility] [address] [place] [address] [address] Mojgan Daily WBC 2-5 Abnormal NONE SEEN [facility] Comment on above: Performed By: #### U AMIC #### [facility] [address] [place] [address] [address] Mojgan Daily MG MAMM SCREEN 3D RUPAL CADon 03-27-2022 MG MAMM SCREEN 3D RUPAL CAD Patient: KARUNA REYNAGA Exam Date: 03/27/2022 : 1945 Gender:F Ordering : DR JAMAL ALVAREZ Admission #: [id number] Family : Order #: [id number] CLICK HERE TO VIEW EXAM RADIOLOGY REPORT [...] Treatments None Family Cancers None LOCATION: [facility] BREAST COMPOSITION: Almost entirely fatty. FINDINGS: DIAGNOSTIC [...] Echols MD on 03/27/2022 at 14:10 Normal [facility] Comprehensive metabolic 2000 panelon 02-03-2022 Albumin [Mass/Vol] 4.0 g/dL 3.9 - 4.9 g/dL [facility] ALP [Catalytic activity/Vol] 55 U/L 34 - 123 U/L [facility] ALT [Catalytic activity/Vol] 16 U/L 7 - 38 U/L [facility] Anion gap [Moles/Vol] 10 mmol/L 9 - 18 mmol/L [facility] AST [Catalytic activity/Vol] 16 U/L 13 - 35 U/L [facility] Bilirubin [Mass/Vol] 0.3 mg/dL 0.2 - 1 .3 mg/dL [facility] Calcium [Mass/Vol] 9.4 mg/dL 8.5 - 10. 2 mg/dL [facility] Chloride [Moles/Vol] 107 mmol/L High 97 - 10 5 mmol/L [facility] CO2 [Moles/Vol] 28 mmol/L 22 - 30 mmol/L [facility] Creatinine [Mass/Vol] 0.81 mg/dL 0.58 - 0.96 mg/dL [facility] Estimated Glomerular Filtration Rate 75 mL/min/1.73m >=60 mL/min/1.73 m [facility] Glucose [Mass/Vol] 102 mg/dL High 74 - 99 mg/dL [facility] Potassium [Moles/Vol] 4.5 mmol/L 3.7 - 5.1 mmol/L [facility] Protein [Mass/Vol] 6.7 g/dL 6.3 - 8.0 g/dL [facility] Sodium [Moles/Vol] 145 mmol/L High 136 - 144 mmol/[facility] Urea nitrogen [Mass/Vol] 22 mg/dL High 7 - 21 mg/dL [facility] Office Visit (Cardiology)on 10-21-2021 Follow-up visit Diagnoses/Problems Assessed Pre-operative cardiovascular examination (V72.81) (Z01.810) Sinus bradycardia (427.89) (R00.1) Class 1 obesity with body mass index (BMI) of 30.0 to 30.9 in adult (278.00,V85.30) (E66.9,Z68.30) Former smoker (V15.82) (Z87.891) Quit 1980 Orders Class 1 obesity with body mass index (BMI) of 30.0 to 30.9 in adult Healthy Weight Tips; Status:Complete - Retrospective Authorization; Done: [id number] Pre-operative cardiovascular examination IO EKG Electrocardiogram- 12 Lead; Status:Complete; Done: [id number] SocHx: Former smoker Tobacco Use Screening; Status:Complete; Done: [id number] Patient Instructions Follow up as needed only [...] 1 TABLET BY MOUTH ONCE A MONTH Ipratropium-Albuterol 0.5-2.5 (3) MG/3ML Inhalation SolutionAs directed. Levothyroxine [...] AM Social History Problems Former smoker (V15.82) (Z87.821) Quit 1979 No alcohol use No caffeine [...] negative for complaint. Vitals Vital Signs Recorded: [id number] 11:08AMRecorded: 53Lmq2515 11:07AM Uthkbjtl417, LUE, Iteixwc687, LUE, Sitting Gzzdxqawa35, LUE, Fkddjhb80, LUE, Sitting Heart Rate58, Apical Height4 ft 10 in Iqgxzv341 lb BMI (more content not included)... Normal [employer] Tobacco Screening.on 021 Fall risk assessment a) No falls within the last year [facility] 250 DO Work Phone: Tobacco use status [facility] b) No [facility] 250 DO Work Phone: XR Chest 2 Views*on 10-13-20 21 XR Chest 2 Views* CLINICAL HISTORY: Pr eop imaging. Abnormal breath sounds right lung COMPARISONS: April 09, 2020 FINDINGS: The heart, mediastinum and pulmonary vasculature are within normal limits. Stable of mild interstitial coarsening consistent with nonspecific fibrosis.. Bones unremarkable IMPRESSION: No active lung disease Report reported and signed by Kole Nino on 10/13/2021 1530 Normal [facility] Risk Analyst Vital Signs Date Time Vital Sign Value Performing Clinician Facility 04-16-2024 16:24-0400 Diastolic blood pressure 66 mm[Hg] DO Jamal Alvarez Work Phone: [facility] 04-16-2024 16:24-0400 Heart rate 91 /min DO Jamal Alvarez Work Phone: [facility] 04-16-2024 16:24-0400 Systolic blood pressure 133 mm[Hg] DO Jamal Alvarez Work Phone: [facility] 04-16-2024 16:00-0400 Body temperature 97.5 [degF] DO Jamal Alvarez Work Phone: [facility] 04-16-2024 16:00-0400 Respiratory rate 16 /min DO Jamal Alvarez Work Phone: [facility] 04-16-2024 16:00-0400 SaO2% (BldA) [Mass fraction] 98 % DO Jamal Alvarez Work Phone: [facility] 04-16-2024 06:00-0400 Body weight 64.5 kg DO Jamal Alvarez Work Phone: [facility] 04-15-2024 14:38-0400 Body height 144.78 cm DO Jamal Alvarez Work Phone: [facility] 04-13-2024 20:50-0400 Diastolic blood pressure 88 mm[Hg] DO Jamal Alvarez Work Phone: [facility] 04-13-2024 20:50-0400 Heart rate 74 /min DO Jamal Alvarez Work Phone: [facility] 04-13-2024 20:50-0400 Respiratory rate 18 /min DO Jamal Alvarez Work Phone: [facility] 04-13-2024 20:50-0400 SaO2% (BldA) [Mass fraction] 92 % DO Jamal Alvarez Work Phone: [facility] 04-13-2024 20:50-0400 Systolic blood pressure 131 mm[Hg] DO Jamal Alvarez Work Phone: [facility] 04-13-2024 15:54-0400 Body height 149.86 cm DO Jamal Alvarez Work Phone: [facility] 04-13-2024 15:54-0400 Body temperature 97.9 [degF] DO Jamal Alvarez Work Phone: [facility] 04-13-2024 15:54-0400 Body weight 66.5 kg DO Jamal Alvarez Work Phone: [facility] 03-10-2024 13:13-0400 Body height 143.5 cm Judit Lora MD Work Phone: [facility] 03-10-2024 13:13-0400 Body mass index (BMI) [Ratio] 32.2 kg/m2 Judit Lora MD Work Phone: [facility] 03-10-2024 13:13-0400 Body weight 66.32 kg Judit Lora MD Work Phone: [facility] 03-10-2024 13:13-0400 Diastolic blood pressure 78 mm[Hg] Judit Lora MD Work Phone: [facility] 03-10-2024 13:13-0400 Heart rate 74 /min Judit Lora MD Work Phone: [facility] 03-10-2024 13:130400 Systolic blood pressure 118 mm[Hg] Judit Lora MD Work Phone: [facility] 02-22-2024 09:21-0400 Body height 142.24 cm DO Jamal Alvarez Work Phone: [facility] 02-22-2024 09:21-0400 Body weight 65.77 kg DO Jamal Alvarez Work Phone: [facility] 02-21-2024 10:45-0400 Body height 142.24 cm DO Jamal Alvarez Work Phone: [facility] 02-21-2024 10:45-0400 Body mass index (BMI) [Ratio] 33.8 kg/m2 DO Jamal Alvarez Work Phone: [facility] 02-21-2024 10:45-0400 Body weight 68.49 kg DO Jamal Alvarez Work Phone: [facility] 02-21-2024 10:45-0400 Diastolic blood pressure 79 mm[Hg] DO Jamal Alvarez Work Phone: [facility] 02-21-2024 10:45-0400 Heart rate 65 /min DO Jamal Alavrez Work Phone: [facility] 02-21-2024 10:45-0400 Systolic blood pressure 131 mm[Hg] DO Jamal Alvarez Work Phone: [facility] 02-13-2024 18:46-0400 Body height 142.24 cm DO Jamal Alvarez Work Phone: [facility] 02-13-2024 18:46-0400 Body mass index (BMI) [Ratio] 33.9 kg/m2 DO Jamal Alvarez Work Phone: [facility] 02-13-2024 18:46-0400 Body temperature 97.1 [degF] DO Jamal Alvarez Work Phone: [facility] 02-13-2024 18:46-0400 Body weight 68.6 kg DO Jamal Alvarez Work Phone: [facility] 02-13-2024 18:46-0400 Diastolic blood pressure 80 mm[Hg] DO Jamal Alvarez Work Phone: [facility] 02-13-2024 18:46-0400 Heart rate 74 /min DO Jamal Alvarez Work Phone: [facility] 02-13-2024 18:46-0400 Respiratory rate 18 /min DO Jamal Alvarez Work Phone: [facility] 02-13-2024 18:46-0400 SaO2% (BldA) [Mass fraction] 94 % DO Jamal Alvarez Work Phone: [facility] 02-13-2024 18:46-0400 Systolic blood pressure 110 mm[Hg] DO Jamal Alvarez Work Phone: [facility] 12-28-2023 13:29-0500 Body temperature 97.59 [degF] Ubaldo Dubose MD Work Phone: [facility] 12-28-2023 13:29-0500 Body weight 79.38 kg Ubaldo Dubose MD Work Phone: [facility] 12-28-2023 13:29-0500 Diastolic blood pressure 65 mm[Hg] Ubaldo Dubose MD Work Phone: [facility] 12-28-2023 13:29-0500 Heart rate 67 /min Ubaldo Dubose MD Work Phone: [facility] 12-28-2023 13:29-0500 Respiratory rate 16 /min Ubaldo Dubose MD Work Phone: [facility] 12-28-2023 13:29-0500 SaO2% (BldA) [Mass fraction] 97 % Ubaldo Dubose MD Work Phone: [facility] 12-28-2023 13:29-0500 Systolic blood pressure 137 mm[Hg] Ubaldo Dubose MD Work Phone: [facility] 10-21-2021 11:08-0500 Diastolic blood pressure 70 mm[Hg] Jamal Alvarez Work Phone: [facility] 250 DO Work Phone: 10-21-2021 11:08-0500 Systolic blood pressure 132 mm[Hg] Jamal Alvarez Work Phone: [facility] 250 DO Work Phone: 10-21-2021 11:07-0500 Body height 147.32 cm Jamal Alvarez Work Phone: [facility] 250 DO Work Phone: 10-21-2021 11:07-0500 Body mass index (BMI) [Ratio] 30.31 kg/m2 Jamal Alvarez Work Phone: [facility] 250 DO Work Phone: 10-21-2021 11:07-0500 Body surface area Derived from formula 1.59 m2 Jamal Alvarez Work Phone: [facility] 250 DO Work Phone: 10-21-2021 11:07-0500 Body weight 65.77 kg Jamal Mylesman Work Phone: [facility] 250 DO Work Phone: 10-21-2021 11:07-0500 Diastolic blood pressure 70 mm[Hg] Jamal Adrian MylesAntonio Work Phone: [facility] 250 DO Work Phone: 10-21-2021 11:07-0500 Heart rate 58 /min Jamal Campbell Antonio Work Phone: [facility] 250 DO Work Phone: 10-21-2021 11:07-0500 Systolic blood pressure 132 mm[Hg] Jamal Alvarez Work Phone: [facility] 250 DO Work Phone: Encounters Encounter Date Encounter Type Care Provider Facility Start: 07-30-2024 End: 08-01-2024 Telephone encounter Lisa William MD, PhD Work Phone: Neurology Comment on above: Orders Start: 06-12-2024 End: 06-12-2024 ambulatory [facility] Start: 06-05-2024 Telephone encounter Ubaldo dawn MD Work Phone: Pulmonary Medicine Comment on above: Certifcate of Medica l Necessity Start: 05-05-2024 End: 05-05-2024 ambulatory Ubaldo Dubose MD Work Phone: Pulmonology [facility] Comment on above: Bronchiectasis witho ut complication (HCC) (Primary Dx); Yeast infection Start: 05-05-2024 End: 05-05-2024 Telemedicine consultation with patient Ubaldo Dubose MD Work Phone: Pulmonology [facility] Start: 04-30-2024 End: 04-30-2024 ambulatory JAMAL ALVAREZ Pulmonary Lab Comment on above: Spirometry Start: 04-30-2024 End: 04-30-2024 Patient encounter procedure [facility] [place] Work Phone: Pulmonary Lab Start: 04-24-2024 End: 04-24-2024 ambulatory GILBERT LOVETT Not Available Start: 04-22-2024 End: 04-22-2024 ambulatory JAMAL ALVAREZ Not Available Start: 04-22-2024 End: 04-22-2024 Patient encounter procedure Flex Juarez MD Work Phone: Neurosurgery Comment on above: Convulsions, unspeci fied convulsion type (HCC) (Primary Dx) Start: 04-22-2024 End: 04-22-2024 ambulatory DO Jamal Alvarez Work Phone: [facility] Work Phone: Start: 04-21-2024 Telephone encounter Flex Juarez MD Work Phone: Neurology Comment on above: Future Appointment ( NEW PT, [place], ANY (STOJIC? - PT PREF [place])) Start: 04-16-2024 End: 04-16-2024 Non-patient / Non-visit DO Jamal Alvarez Work Phone: [facility] Cardiology Work Phone: Start: 04-13-2024 End: 04-16-2024 Evaluation and management of inpatient DO Jamal Alvarez Work Phone: [facility] [place] [facility] Work Phone: Start: 03-10-2024 End: 03-10-2024 ambulatory JAMAL ALVAREZ Not Available Start: 03-10-2024 End: 03-10-2024 ambulatory [facility] Start: 03-10-2024 End: 03-10-2024 Office consultation new/estab patient 60 min Judit Lora MD Work Phone: [facility] Comment on above: Shortness of breath; Hyperlipidemia, unspecified hyperlipidemia type; Traumatic brain injury, with unknown loss of consciousness status, sequela (CMS-HCC); BMI 32.0-32.9,adult; Former smoker; History of traumatic brain injury; Cough, unspecified type; Diabetes mellitus type II, non insulin dependent (Multi); Dysphasia; Abnormal lung sounds; Bronchiectasis without complication (Multi); Medication course changed Start: 03-03-2024 End: 03-03-2024 ambulatory [facility]baldo Dubose MD [facility] Comment on above: Bronchiectasis witho ut complication (HCC) (Primary Dx); Aspiration pneumonitis (HCC); Traumatic brain injury with loss of consciousness, sequela (HCC) Start: 03-03-2024 End: 03-03-2024 Telemedicine consultation with patient Ubaldo Dubose MD [facility] Start: 02-26-2024 Telephone encounter [facility]do dawn [facility] Comment on above: [facility]ment [facility] Start: 02-25-2024 End: 02-25-2024 Patient encounter procedure DO Jamal Alvarez Work Phone: [facility]CT Scan [facility] [place] Work Phone: Start: 02-25-2024 End: 02-25-2024 ambulatory DO Jamal Alvarez Work Phone: [facility] Work Phone: Start: 02-25-2024 End: 02-25-2024 ambulatory JAMAL ALVAREZ Not Available Start: 02-22-2024 Chart abstracting [facility] Medicine Comment on above: Home nebulizer order Start: 02-22-2024 End: 02-22-2024 ambulatory DO Jamal Alvarez Work Phone: [facility] Work Phone: Start: 02-22-2024 End: 02-22-2024 Departed Referred DO Jamal Alvarez Work Phone: [facility] Work Phone: Start: 02-21-2024 End: 02-21-2024 ambulatory DO Jamal Alvarez Work Phone: [facility] Work Phone: Start: 02-21-2024 End: 02-21-2024 Discharged Recurring DO Jamal Alvarez Work Phone: [facility] Start: 02-21-2024 Registered Recurring DO Shelby Alvarez Work Phone: [facility] Start: 02-21-2024 End: 02-21-2024 ambulatory DO Jamal Alvarez Work Phone: [facility] Work Phone: Start: 02-21-2024 End: 02-21-2024 Patient encounter procedure DO Jamal Alvarez Work Phone: [facility] Gastroenterology Work Phone: Start: 02-19-2024 Registered Recurring DO Shelby Alvarez Work Phone: [facility] Start: 02-15-2024 Orders Only Ubaldo Peres rn, MD Work Phone: Pulmonary Medicine Comment on above: Bronchiectasis witho ut complication (HCC) (Primary Dx) Start: 02-13-2024 End: 02-13-2024 ambulatory DO Jamal Alvarez Work Phone: [facility] Work Phone: Start: 02-13-2024 End: 02-13-2024 Patient encounter procedure DO Jamal Alvarez Work Phone: [facility] [place] Work Phone: Start: 02-13-2024 End: 02-13-2024 ambulatory IRVING DUVALL Not Available Start: 02-12-2024 Registered Recurring DO Shelby Alvarez Work Phone: [facility] Start: 01-23-2024 End: 01-23-2024 Patient encounter procedure DO Jamal Alvarez Work Phone: [facility] Work Phone: Start: 01-23-2024 End: 01-23-2024 ambulatory DO Jamal Alvarez Work Phone: [facility] Work Phone: Start: 01-22-2024 Telephone encounter Ubaldo dawn MD Work Phone: Pulmonary Medicine Comment on above: Received Outside Med ical Records Start: 01-14-2024 Registered Recurring DO Shelby baker Antonio Work Phone: [facility] Start: 12-28-2023 End: 12-28-2023 ambulatory JAMAL ALVAREZ Facility:[facility] Start: 12-28-2023 End: 12-28-2023 Patient encounter procedure Ubaldo Dubose MD Work Phone: Pulmonary Medicine Comment on above: Bronchiectasis witho ut complication (HCC) (Primary Dx); Aspiration pneumonitis (HCC); Traumatic brain injury with loss of consciousness, sequela (HCC) Start: 12-27-2023 End: 12-27-2023 ambulatory JAMAL ALVAREZ Facility:[facility] Start: 12-27-2023 End: 12-27-2023 Subsequent hospital visit by physician Arrival Time Radiology Work Phone: Radiology [facility] Comment on above: Interstitial pulmona ry disease (HCC) [J84.9] Start: 12-25-2023 End: 12-25-2023 ambulatory ASH RAY BUNTING Pulmonary Lab Comment on above: Spirometry Start: 12-25-2023 End: 12-25-2023 Patient encounter procedure [facility] [place] Work Phone: [facility] Start: 12-05-2023 End: 12-05-2023 ambulatory JAMAL ALVAREZ Not Available Start: 11-21-2023 End: 11-21-2023 Patient encounter procedure DO Jamal Alvarez Work Phone: [facility] Work Phone: Start: 11-21-2023 End: 11-21-2023 ambulatory DO Jamal Alvarez Work Phone: [facility] Work Phone: Start: 10-26-2023 End: 10-26-2023 ambulatory JAMAL ALVAREZ Not Available Start: 10-16-2023 End: 10-16-2023 ambulatory JESUS ROBERSON Not Available Start: 10-16-2023 End: 10-16-2023 Patient encounter procedure DO Jamal Alvarez Work Phone: [facility] [place] Work Phone: Start: 10-16-2023 End: 10-16-2023 ambulatory DO Jamal Alvarez Work Phone: [facility] Work Phone: Start: 07-16-2023 End: 07-16-2023 ambulatory Jamal Alvarez Facility:[facility] Start: 02-10-2023 End: 02-10-2023 ambulatory BRUCE GIRON . Facility:[facility] Start: 12-26-2022 End: 12-26-2022 ambulatory DO Jamal Alvarez Work Phone: [facility] Work Phone: Start: 12-26-2022 End: 12-26-2022 Patient encounter procedure DO Jamal Alvarez Work Phone: [facility] Work Phone: Start: 07-26-2022 Orders Only Everton Hymansamuel Cummings cortney Work Phone: Hematology/Oncology Comment on [...] patient 60 min Jamal Alvarez Work Phone: [facility] 250 DO Work Phone: Start: 10-21-2021 Office outpatient ne w 45 minutes Jamal Campbell Antonio [facility] Work Phone: Patient encounter status Jamal Mylesman Work Phone: [facility] 250 DO Work Phone: Procedures Date Procedure Procedure Detail Performing Clinician Start: 04-30-2024 Spmtry w/vc expirato ry miriam w/wo mxml vol vntj Ubaldo Dubose MD Work Phone: Start: 04-16-2024 Radionuclide myocard ial perfusion stress study DO Jamal Alvarez Work Phone: Start: 04-15-2024 MRI of head DO Jamal Alvarez Work Phone: Start: 04-14-2024 XR pre/post mri xray DO Jamal Antonio Work Phone: Start: 04-13-2024 CT angiography of head DO Jamal Alvarez Work Phone: Start: 04-13-2024 CT angiography of ne ck vessels DO Jamal Antonio Work Phone: Start: 04-13-2024 CT of head without contrast DO Jamal Alvarez Work Phone: Start: 04-13-2024 Plain chest X-ray DO Noe Alvarez Work Phone: Start: 03-10-2024 ECG 12-LEAD JUDIT MOH AN Start: 03-10-2024 Ecg routine ecg w/le ast 12 lds w/i&r Judit Lora MD Work Phone: Start: 02-25-2024 CT angiography of thorax DO Jamla Alvarez Work Phone: Start: 02-22-2024 Thyrotropin [Units/v olume] in Serum or Plasma Judit Lora MD Work Phone: Start: 02-20-2024 Lipid 1996 panel - S sun or Plasma Judit Lora MD Work Phone: Start: 02-13-2024 Plain chest X-ray DO Noe kali Alvarez Work Phone: Start: 12-27-2023 Ct thorax w/o contra st material Red Anderson RN Start: 12-25-2023 Brncdilat rspse spmt ry pre&post-brncdilat admn Red Anderson RN Start: 11-21-2023 Plain chest X-ray DO Noe kali Alvarez Work Phone: Implantation of sacr al nerve stimulator Jamal Alvarez Work Phone: Total colonoscopy Jamal Alvarez Work Phone: Comment on above: 01/30/2007; Plan of Treatment Date Care Activity Detail Author Start: 02-19-2027 Diabetes Screening Diabetes Screening [facility] Start: 10-26-2025 Screening for osteoporosis Bone Density Scan [facility] Start: 07-28-2025 Diabetes Screening Diabetes Screening [facility] Start: 02-21-2025 Thyroid stimulating hormone measurement TSH Level [facility] Start: 02-19-2025 Lipid panel Lipid Panel [facility] Start: 02-03-2025 DIABETES SCREEN DIABETES SCREEN [facility] Start: 10-08-2024 End: 10-08-2024 Patient encounter procedure 10/08/2024 2:00 PM [facility] Neurology [address] [place] [address] Lisa William MD, PhD [address] [place] [address] New Consult Neurology Comment on above: New Consult Start: 09-08-2024 End: 09-08-2024 ambulatory 09/08/2024 12:30 PM EST Distance [facility] Pulmonology [facility] [address] [place] [address] Ubaldo Dubose MD [address] [place], [place] [id number] MYC VV Pulmonology [facility] Comment on above: MYC VV Start: 07-06-2024 Covid-19 Vaccine () Covid-19 Vaccine () [facility] Start: 07-06-2024 Covid-19 Vaccine () Covid-19 Vaccine () [facility] Start: 07-06-2024 Influenza vaccination Influenza Vaccine (#1) [facility] Start: 06-12-2024 End: 06-12-2024 Patient encounter procedure 06/12/2024 2:45 PM EDT Office Visit [facility] [address] [facility] [address] [place] [address] Judit Lora MD [address] [facility] [address] [place] [address] [facility] Start: 05-05-2024 End: 05-05-2024 ambulatory 05/05/2024 3:30 PM EDT [facility] Pulmonology [facility] [address] [place] [address] Ubaldo Dubose MD [address] [place] [address] MYC VV Pulmonology [facility] Comment on above: MYC VV Start: 05-05-2024 End: 05-05-2024 Patient encounter procedure 05/05/2024 3:30 PM EDT Office Visit Pulmonology [facility] [address] [place] [address] Ubaldo Dubose MD [address] [place] [address] Est pt scheduled per Dr. Dubose 4mo fu pft's Pulmonology [facility] Comment on above: Est pt scheduled per Dr. Dubose 4mo fu pft's Start: 04-30-2024 End: 04-30-2024 ambulatory Pulmonary Lab Comment on above: Est pt scheduled per Dr. Dubose 4mo fu pft's [employer] Start: 04-16-2024 End: 04-16-2024 Patient encounter procedure 04/16/2024 12:30 PM EDT Appointment [facility] [address] [address] [facility] Start: 04-16-2024 End: 04-16-2024 [facility] Start: 04-15-2024 [facility] Start: 04-14-2024 End: 04-14-2024 [facility] Start: 04-14-2024 [facility] Start: 04-13-2024 Referral to neurologist [facility] Start: 04-13-2024 Referral to sales applications engineer [facility] Start: 04-13-2024 Hospital admission [facility] Start: 04-13-2024 [facility] Start: 04-13-2024 Telemedicine consultation with patient [facility] Start: 04-13-2024 [facility] Start: 03-17-2024 End: 03-10-2025 Basic metabolic 2000 panel - Serum or Plasma Basic Metabolic Panel Lab Routine Shortness of breath Medication course changed Expected: 03/17/2024 (Approximate), Expires: 03/10/2025 [facility] Work Phone: Comment on above: Expected: 03/17/2024 (Approximate), Expi res: 03/10/2025 Start: 03-13-2024 Esophagogastroduodenoscopy DH EGD (Not Applicable) [facility] Start: 03-10-2024 End: 03-10-2025 Natriuretic peptide B [Mass/volume] in Blood B-Type Natriuretic Peptide Lab Routine Shortness of breath Cough, unspecified type Abnormal lung sounds Expected: 03/10/2024 (Approximate), Expires: 03/10/2025 [facility] Work Phone: Comment on above: Expected: 03/10/2024 (Approximate), Expi res: 03/10/2025 Start: 03-10-2024 End: 03-10-2026 US Heart Transthoracic Transthoracic Echo Complete Echocardiography Routine Shortness of breath Cough, unspecified type Abnormal lung sounds Expected: 03/10/2024 (Approximate), Expires: 03/10/2026 [facility] Service Area Work Phone: Comment on above: Expected: 03/10/2024 (Approximate), Expi res: 03/10/2026 Start: 03-03-2024 End: 03-03-2024 Follow-up encounter 03/03/2024 12:30 PM EDT [facility] Pulmonology [facility] [address] [place] [address] Ubaldo Dubose MD [address] [place] [address] follow up Pulmonology [facility] Comment on above: follow up Start: 11-05-2023 Advance Directive Discussion Advance Directive Discussion [facility] Start: 11-05-2023 Behavioral Health Screening Behavioral Health Screening [facility] Start: 11-05-2023 Depression Assessment Depression Assessment [facility] Start: 07-06-2023 COVID-19 Vaccine () COVID-19 Vaccine () [facility] Start: 07-06-2023 Covid-19 Vaccine () Covid-19 Vaccine () [facility] Start: 10-27-2022 Hemoglobin A1c measurement Diabetes: Hemoglobin A1C [facility] Start: 07-26-2022 End: 09-25-2022 CBC W Auto Differential panel - Blood CBC + DIFF Lab Routine Well controlled type 2 diabetes mellitus with neurological manifestations (HCC) Unspecified hypothyroidism Expected: 07/26/2022, Expires: 09/25/2022 [facility] Work Phone: Comment on above: Expected: 07/26/2022, Expires: 2 Start: 07-26-2022 End: 09-25-2022 Comprehensive metabolic 2000 panel - Serum or Plasma COMP METABOLIC PANEL Lab Routine Well controlled type 2 diabetes mellitus with neurological manifestations (HCC) Unspecified hypothyroidism Expected: 07/26/2022, Expires: 09/25/2022 [facility] Work Phone: Comment on above: Expected: 07/26/2022, Expires: 2 Start: 07-26-2022 End: 09-25-2022 Hepatic function 2000 panel - Serum or Plasma HEPATIC FUNCTION PNL Lab Routine Dermatophytosis of nail Expected: 07/26/2022, Expires: 09/25/2022 [facility] Work Phone: Comment on above: Expected: 07/26/2022, Expires: 2 Start: 07-26-2022 End: 09-25-2022 Lipid 1996 panel - Serum or Plasma LIPID PANEL BASIC Lab Routine Well controlled type 2 diabetes mellitus with neurological manifestations (HCC) Unspecified hypothyroidism Expected: 07/26/2022, Expires: 09/25/2022 [facility] Work Phone: Comment on above: Expected: 07/26/2022, Expires: 2 Start: 07-26-2022 End: 09-25-2022 Thyrotropin [Units/volume] in Serum or Plasma TSH BLD Lab Routine Well controlled type 2 diabetes mellitus with neurological manifestations (HCC) Unspecified hypothyroidism Expected: 07/26/2022, Expires: 09/25/2022 [facility] Work Phone: Comment on above: Expected: 07/26/2022, Expires: 2 Start: 07-06-2022 Influenza vaccination INFLUENZA (#1) [facility] Start: 02-03-2022 End: 04-05-2022 ALBUMIN/CREAT RATIO RND UR [facility] Work Phone: Comment on above: Expected: 02/03/2022, Expires: 2 Start: 02-03-2022 End: 04-05-2022 LIPID PANEL BASIC [facility] Work Phone: Comment on above: Expected: 02/03/2022, Expires: 2 Start: 02-03-2022 End: 04-05-2022 Thyrotropin [Units/volume] in Serum or Plasma [facility] Work Phone: Comment on above: Expected: 02/03/2022, Expires: 2 Start: 02-03-2022 End: 04-05-2022 Urinalysis complete panel - Urine [facility] Work Phone: Comment on above: Expected: 02/03/2022, Expires: 2 Start: 11-05-2021 ADVANCE DIRECTIVE DISCUSSION ADVANCE DIRECTIVE DISCUSSION [facility] Start: 11-05-2021 COVID-19 VACCINE (4 - Booster for Moderna series) COVID-19 VACCINE (4 - Booster for Moderna series) [facility] Start: 08-04-2021 Pneumococcal Vaccine: 65+ (2 of 2 - PCV) Pneumococcal Vaccine: 65+ (2 of 2 - PCV) [facility] Start: 2021 RSV Vaccine (1 - 1-dose 75+ series) RSV Vaccine (1 - 1-dose 75+ series) [facility] Start: 2011 BONE DENSITY BONE DENSITY [facility] Start: 2011 PNEUMOCOCCAL: 65+ (1 - PCV) PNEUMOCOCCAL: 65+ (1 - PCV) [facility] Start: 2011 PNEUMOVAX AGE 65 AND OVER WITH 5YR LOOKBACK (#1) PNEUMOVAX AGE 65 AND OVER WITH 5YR LOOKBACK (#1) [facility] Start: 2006 RSV patients and/or patients aged 60+ years (1 - 1-dose 60+ series) RSV patients and/or patients aged 60+ years (1 - 1-dose 60+ series) [facility] Start: 2006 RSV Vaccine (1 - 1-dose 60+ series) RSV Vaccine (1 - 1-dose 60+ series) [facility] Start: 1996 SHINGRIX VACCINE (1 of 2) SHINGRIX VACCINE (1 of 2) [facility] Start: 1968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 Albert Palacio DO 04/13/24 19 03 Signed By: <Electronically signed by Albert Palacio DO> 04/13/24 [address] [facility] Work Phone: 1(271) 178-849405-06-2024 History of Present illness Narrative* Judit Lora MD - 03/10/2024 12:45 PM EDT Referred by No ref. provider found for Establish Care (Sob, [...] injury. Daughter is the medical power of state attorney. Patient toma full code at this time. Primary is [...] congested. She was apparently hospitalized with a diag nosis of pneumonia not too long ago, but really had fluid overload, hypotension natremia, and had aweight gain at that time. Had 1 mechanical [...] Opioids - morphine analogues, Latex, Penicillins, Propoxyphene n- acetaminophen, and Sulfa (sulfonamide antibiotics) Outpatient Medications: Current [...] into the right eye five times a dayfor 1 day Starting 1 day before surgery, continue after surgery as directed omeprazole (PRILOSEC) 40 mg, oral oxybutynin XL (DITROPAN-XL) 5 mg, oral, Nightly simvastatin (Zocor) 20 mg tablet 1 tablet, oral, Nightly sodium chloride 3 % nebulizer solution INHALE CONTENTS OF 1 VIAL (2MLS) VIA NEBULIZATION 2 TIMES A DAY TRUEplus Lancets 33 gauge misc USE TO TEST ONCE DAILY EVERY MORNING. [...] than 60, hemoglobin 12.5 hematocrit 40 platelets [id number] Assessment/Plan Diagnoses and all orders for this [...] unknown loss of consciousness status, sequela ([facility]) BMI 32.0-32.9,adult Former smoker History of traumatic [...] February 2024-diffuse groundglass interstitial prominence basilar atelectasis/scarring 12-kvjl-abwt history of smoking quit 1979 PFTs not [...] my direction and personally dictated by me. Peter reviewed the chart and agree that the record accurately reflects my personal performance of the history, physical exam, discussion and plan. [facility] Work Phone: 1(504) 968-842905-06-2024 Instructions* Patient Instructions* Raulito Draper MA - 03/10/2024 12:45 PM [...] time of your visit. documented in this encounterC[facility] Work Phone: 1(525) 814-994804-29-2024 History of Present illness Narrative* Ubaldo Dubose MD - 03/03/2024 12:30 PM EDT VIRTUAL VISIT PROGRESS NOTE This is a virtual visit using [employer] Zoom Video Visit. It required patient- provider interaction for the medical decision making as documented below. I have communicated my name and active licensure. The patient's identity and physical location wereverified at the time of this visit. Either the patient or their legal tax compliance representative has been informed of the risks and benefits of -- and alternatives to -- treatment through a remote evaluation andconsents to proceed with the evaluation remotely. Chief complaint: No chief complaint on file. History of Present Illness Initially seen by me in Dec 2023. Initially saw Dr. Alcala in 2019 for evaluation of ILD. She had acough and dyspnea on exertion. She had dysphagia and there was concern for aspiration-related injury. She had a 10 pk yr history of smoking but quit in 1979. Her PFTs were not valid due to technique.Her CT from 2013 showed emphysematous changes and [...] worse and it seems more productive. She normallyhas crackles in just one lung but now she has them on both sides. She is no longer using the nebulizer machine. She has been taking PPI and allergy medicine with no improvement. At the first visit in Dec 2023, her PFTs showed evidence of moderate restriction and mild-moderately decreased DLCO. Her CT showed emphysema and bronchiectasis. Provided acapella and recommended vesttherapy. Interval History She was unable to use [...] in 3 months Ubaldo Dubose MD Pager: [phone] March 02, 2024 12:06 PM documented in this encounterOhio[facility]04-29-2024 NoteHNO ID: [id number] Author: UBALDO DUBOSE MD Service: ? Author Type: Physician Type: Progress Notes Filed: 03/03/2024 13:19 Note Text: VIRTUAL VISIT PROGRESS NOTE This is a virtual visit using [employer] Zoom Video Visit. It required patient-provider interaction for the medical decision making as documented below. I have communicated my name and active licensure. The patient's identity and physical location were verified at the time of this visit. Either the patient or their legal tax compliance representative has been informed of the risks [...] Types: Cigarettes Quit date: (more content not included)...[facility] 02-26-2024 Telephone encounter Note* Telephone Encounter - Eileen Lucas RN - 02/26/2024 3:57 PM EDT Received outside imaging reports via electronic fax. Uploaded to scanned documents for provider to review. [facility]04-23-2024 Miscellaneous Notes* Telephone Encounter - Eileen Lucas RN - 02/26/2024 3:57 PM EDT Received outside imaging reports via electronic fax. Uploaded to scanned documents for provider to review. documented in this encounterOhiohealth [facility] City [facility]04-23-2024 Telephone encounter Note * Telephone Encounter - Kortney Linn PSS - 02/26/2024 1:53 PM EDT Patient is scheduled on 03/03/2024 at 12:30pm. [facility]04-23-2024 Miscellaneous Notes* Telephone Encounter - Kortney Linn PSS - 02/26/2024 1:53 PM EDT Patient is scheduled on 03/03/2024 at 12:30pm. * Telephone Encounter - Kortney Linn PSS - 02/26/2024 12:13 PM EDT Called patient to offer virtual appointment with Dr. Dubose on 03/03/2024 at 12:30pm. No answer, unable to leave voicemail. documented in this encounterOhiohealth [facility]04-23-2024 Telephone encounter Note * Telephone Encounter - Kortney Linn PSS - 02/26/2024 12:13 PM EDT Called patient to offer virtual appointment with Dr. Dubose on 03/03/2024 at 12:30pm. No answer, unable to leave voicemail. [facility]04-19-2024 NoteHNO ID: [id number] Author: YURIDIA BOURGEOIS RRT Service: ? Author Type: Registered Resp Therapist Type: Progress Notes Filed: 02/22/2024 13:48 Note Text: [facility] unable to provide nebulizer. Order and office notes faxed to [facility] [phone], ph [phone]. [facility]uridia Bourgeois RRTMorrow [facility] Hospital04-19-2024 History of Present illness Narrative* Yuridia Bourgeois RRT - 02/22/2024 1:47 PM EDT [facility] unable to provide nebulizer. Order and office notes faxed to [facility] [phone], ph [phone]. 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 Author Type: Registered Resp Therapist Type: Progress Notes Filed: 02/15/2024 17:02 Note Text: Faxed nebulizer rx to [facility] [place] in [place] ph [phone], fax [phone] Darrel Carranza RRTMorrow County Hospital04-12-2024 History of Present illness Narrative* Darrel Carranza RRT - 02/15/2024 5:00 PM EDT Faxed nebulizer rx to [facility] in [facility] ph [phone], fax [phone] Darrel Carranza RRT documented in this encounterOhiohealth Grove City [facility]03-19-2024 Miscellaneous Notes* Telephone Encounter - John Madison - 01/22/2024 2:46 PM EDT Images from the original note were not included. Imported external notification of equipment delivery from [email or web address], dated 01/16/2024. Please allow time delay for documents to appear in Epic (Scanned Documents Tab). Images can take up to 24 hours to appear in Epic. documented in this encounterOhiohealth Grove City [facility] Hospital02-23-2024 Instructions* Patient Instructions* Ubaldo Dubose MD [...] (I will send a prescription to a [facility]) How to Use the Acapella Assure proper [...] should not be placed in the automatic bisque grader, boiled or bleached. 4. Rinse in clean water. 5. Shake off excess water. 6. Drain dry the device. Place each piece downward or rest the unit on its side. 7. Replace the mouthpiece when the unit is completely dry and ready for use. documented in this encounterOhiohealth Grove City [facility]02-23-2024 History of Present illness Narrative* Ubaldo Dubose MD - 12/28/2023 1:30 PM EST Images from the original note were not included. [facility] [place] Karuna Reynaga is a 78 year old female here for evaluation by the [facility] Interstitial Lung Disease Team. 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 SOCIAL HISTORY Social History Tobacco Use Smoking [...] myself) Laboratory Data Laboratory data [facility] Everywhere. Pulmonary Function Data PFT available: Yes. PFT results see below. Date FEV1/FVC FEV1 (L,%) FVC (L,%) DLCO, % TLC (L,%) Other 06/29/20 89 1.24/73.1 1.39/64.2 8.56/48.5 Poor technique 2/20/24 89 1.05/69 1.19/61 9.76/57 Poor technique Six [...] her how to use it but her visduztn-vf-iac states that she will likely not be [...] 2023 5:04 PM CC: documented in this encounterOhiohealth Grove City [facility]02-23-2024 NoteHNO ID: [id number] Author: UBALDO DUBOSE MD Service: ? Author Type: Physician Type: Progress Notes Filed: 2024 13:33 Note Text: [facility] [place] Karuna Reynaga is a 78 year old female here for evaluation by the [facility] Interstitial Lung Disease [facility]. 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 SOCIAL HISTORY Social History Tobacco Use Smoking [...] No adenopathy. Thy (more content not included)... [facility]02-22-2024 NoteHNO ID: [id number] Author: DAMASO GUTHRIE RT(Elías) Service: ? Author [...] PATIENT PRESENTS WITH AN IMPLANTABLE OR ATTACHED HAND FABRIC CUTTER: No RADIOLOGY DEPARTMENT: CT; Exam(s) Completed: Chest PERIPHERAL IV DATA: Not applicable SIGNED BY: RT Reginald(R) December 27, 2023 1:09 [facility]02-22-2024 Procedure note* Dmaaso Guthrie RT(R) - 12/27/2023 12:45 PM EST Radiology Service Progress Note PATIENT NAME: Karuna Reynaga DATE OF SERVICE: December 27, 2023 TIME: 1:09 PM PATIENT IDENTITY VERIFICATION COMPLETED USING TWO (2) IDENTIFIERS: Name and Date of confirmedby patient verbally. FALL SCREENING: Has the patient had 2 falls in the last year or 1 fall with injury or currently using an Ambulatory Assistive Device (Walker, Cane, Wheelchair, Crutches, etc.)? No PATIENT GENDER DATA: Female. status: : No status: NO. PATIENT RELEVANT IMPLANT DATA REVIEWED: Not Applicable PATIENT PRESENTS WITH AN IMPLANTABLE OR ATTACHED HAND FABRIC CUTTER: No RADIOLOGY DEPARTMENT: CT; Exam(s) Completed: Chest PERIPHERAL IV DATA: Not applicable SIGNED BY: RT Reginald(R) December 27, 2023 1:09 PM [facility]02-22-2024 Procedure note* Damaso Guthrie RT(R) - 12/27/2023 12:45 PM EST Radiology Service Progress Note PATIENT NAME: Karuna Reynaga DATE OF SERVICE: December 27, 2023 TIME: 1:09 PM PATIENT IDENTITY VERIFICATION COMPLETED USING TWO (2) IDENTIFIERS: Name and Date of confirmedby patient verbally. FALL SCREENING: Has the patient had 2 falls in the last year or 1 fall with injury or currently using an Ambulatory Assistive Device (Walker, Cane, Wheelchair, Crutches, etc.)? No PATIENT GENDER DATA: Female. status: : No status: NO. PATIENT RELEVANT IMPLANT DATA REVIEWED: Not Applicable PATIENT PRESENTS WITH AN IMPLANTABLE OR ATTACHED HAND FABRIC CUTTER: No RADIOLOGY DEPARTMENT: CT; Exam(s) Completed: Chest PERIPHERAL IV DATA: Not applicable SIGNED BY: RT Reginald(R) December 27, 2023 1:09 PM documented in this encounterOhiohealth [facility] City [facility]02-20-2024 NoteHNO ID: [id number] Author: YAMINI LAN RRT Service: ? Author Type: Registered Resp Therapist Type: Progress Notes Filed: 12/25/2023 15:11 Note Text: [facility] History of Present illness Narrative* Yamini Lan RRT - 12/25/2023 3:10 PM EST Pulmonary Function Test documented in this encounterOhiohealth [facility] City [facility]02-20-2024 NoteHNO ID: [id number] Author: YAMINI LAN RRT Service: ? Author Type: Registered Resp Therapist Type: Progress Notes Filed: 12/25/2023 15:00 Note Text: PULM FUNCTION SMARTBLOCK: Provider: Ubaldo Dubose MD Spirometry: 1 DLCO[facility] History of Present illness Narrative * Yamini Lan RRT - 12/25/2023 2:58 PM EST PULM FUNCTION SMARTBLOCK: Provider: Ubaldo Dubose MD Spirometry: 1 DLCO: 1 documented in this encounterOhiohealth [facility]04-18-2023 Evaluation note* Author Flex Ramos [facility] Authored February 21, 2024 11: 21am 79-year-old [...] dysphagia then determine the need for PPI [facility] Work Phone: 1(531) 516-359112-16-2021 NoteHISTORY: Bone density screening. COMPARISON: None available. 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) Mixed hyperlipidemia documented in this encounter [facility] note* Diagnosis Dermatophytosis of nail- Primary Well controlled type 2 diabetes mellitus with neurological manifestations (HCC) Type II or unspecified type diabetes mellitus with neurological manifestations, not stated as uncontrolled Unspecified hypothyroidism [facility]* Diagnosis Dermatophytosis of nail- Primary documented in this encounter [facility] note* Diagnosis ILD (interstitial lung disease) (HCC)- Primary Postinflammatory pulmonary fibrosis Shortness of breath documented in this encounter [facility] note* Diagnosis Bronchiectasis without complication (HCC)- Primary Bronchiectasis without acute exacerbation Aspiration pneumonitis (HCC) Pneumonitis due to inhalation of food or vomitus Traumatic brain injury with loss of consciousness, sequela (HCC) documented in this encounter [facility]* Diagnosis Onset Date Resolution Status Bronchitis noneactive [facility] Work Phone: Evaluation note* Diagnosis Bronchiectasis without complication (HCC)- Primary Bronchiectasis without acute exacerbation documented in this encounter [facility] note* Diagnosis Bronchiectasis without complication (HCC)- Primary Bronchiectasis without acute exacerbation documented in this encounter [facility] note* Diagnosis Bronchiectasis without complication (HCC)- Primary Bronchiectasis without acute exacerbation Aspiration pneumonitis (HCC) Pneumonitis due to inhalation of food or vomitus Traumatic brain injury with loss of consciousness, sequela (HCC) documented in this encounter [facility] note* Diagnosis Shortness of breath Hyperlipidemia, unspecified hyperlipidemia type Traumatic brain injury, with unknown loss of consciousness status, sequela ([facility]) BMI 32.0-32.9,adult Former smoker Personal history of [...] Medication course changed documented in this encounter [facility] Work Phone: Evaluation note* Diagnosis Convulsions, unspecified convulsion type (HCC)- Primary documented in this encounter [facility]* Diagnosis Bronchiectasis without complication (HCC) Bronchiectasis without acute exacerbation documented in this encounter [facility]* Diagnosis Bronchiectasis without complication (HCC)- Primary Bronchiectasis without acute exacerbation documented in this encounter [facility]* Diagnosis Bronchiectasis without complication (HCC)- Primary Bronchiectasis without acute exacerbation Yeast infection Candidiasis of unspecified site documented in this encounter [facility]* Diagnosis Interstitial pulmonary disease (HCC) Postinflammatory pulmonary fibrosis documented in this encounter [facility]* Diagnosis Convulsions, unspecified convulsion type (HCC)- Primary documented in this encounter [facility] note Author [facility] April 16, 2024 6:05pm Note Date/Time April 16, 2024 6:05 pm [facility] [address] [place] [address] Cardiology Progress Note Signed Patient: Karuna Reynaga MR#: [id number] : 1945 Acct:[id number] Age/Sex: 79 / F Adm Date: 4 Loc: Room: [address] [place] [address] Type: ADM IN Attending Dr: Renan Murguia MD Copies to: ~ Date of Service: 04/16/2024 Subjective Principal diagnosis: Near syncopal episode; troponin elevation Interval history: Ms. Reynaga is a 79 year old female that was seen in cardiology consultation at the request of the hospitalist and in conjunction with second-year medical review specialist Dr. Hernandez for elevated troponin levels. Patient is seen and evaluated with the medical review specialist, I agree with her evaluation and note, case discussed with family members. 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 Patient had a syncopal episode on 04/13 witnessed by her daughters. Her family states she was staring offand eyes were open and she was completely unresponsive to stimuli. When the patient came to, she had some slurred speech. They state she had a prior syncopal episode years ago but since everything was normal on exam done by EMS they did not seek medical attention. Patient denies lightheadedness, palpitations, SOB, or chest pains. She was started on Lasix one month ago by her sales applications engineer, Dr. Lora, for possible heart failure. Her breathing has improved with the medication and she was scheduled to get an outpatient echocardiogram today. No known cardiac disease. Her initial troponin was elevated at 482 and trended down to 436. Her EKG does not show signs of ST-T changes. Patient was started on a heparin drip. Echocardiogram with eject fraction 55-60% and mild pulmonary hypertension. LV function is normal, cardiac troponins are flat, stable without chest discomfort clinically, ECG is nonischemic. Appears this is possible seizure episode at least clinically. I would recommend stopping heparin, proceeding with neurologic workup, no indication clinically at the moment for invasive assessment. We can proceed with noninvasive stress imaging during this hospitalization later Interim evaluation 04/15/2024: Patient stable without evidence of true ACS, chestpain, heart failure or arrhythmias. EEG report and neurology note reviewed. EEG negative for epileptiform activity, other than slowing in the frontal lobes from TBI. Will proceed with ischemic evaluation by means of Lexiscan stress imaging tomorrow, case discussed with patient and family members. Interim evaluation 04/16/2024: Patient is doing well, sitting in chair, dressed, ready for discharge. No evidence of heart failure, arrhythmia or ACS or chest discomfort. She does have fine crackles on exam that daughter is previously noted this likely represents some form of pulmonary fibrosis and not pulmonary edema. Stress perfusion imaging performed earlier today is completely normal. Patient's cleared from cardiology standpoint for discharge Exam Physical Exam Vital Signs: Temp Pulse Resp BP Pulse Ox O2 Del Method 97.5 F L 91 16 115/69 98 Room Air 04/16/24 16:00 04/16/24 16:24 04/16/24 16:00 04/16/24 16:24 04/16/24 16:00 04/16/24 16:00 Objective Labs 04/16/24 10:02 04/16/24 10:02 Labs: Laboratory Results - last 24 hr 04/16/24 10:02 Corrected WBC 7.5 Uncorrected WBC Count 7.5 RBC 4.70 Hgb 13.7 Hct 42.1 MCV 89.5 MCH 29.2 MCHC 32.7 RDW 13.0 Plt Count 222 MPV 8.0 Neut % (Auto) 66.9 Lymph % (Auto) 22.3 [place] % (Auto) 6.4 Eos % (Auto) 3.6 Baso % (Auto) 0.8 Nucleat RBC Rel Count 0.0 Neut # (Auto) 5.0 Lymph # (Auto) 1.7 [place] # (Auto) 0.5 Eos # (Auto) 0.3 Baso # (Auto) 0.1 PHA Creatinine Clear 40.49 Sodium 138 Potassium 4.9 Chloride 105 Carbon Dioxide 24.4 Anion Gap 13.5 BUN 31 H Creatinine 0.96 Est GFR (CKD-EPI) > 60.0 Glucose 112 H Calcium 9.6 A&P - Cardiology (1) NSTEMI (non-ST elevated myocardial infarction): Code(s): I21.4 - Non-ST elevation (NSTEMI) myocardial infarction (2) Syncope: Qualifiers: Syncope type: unspecified Qualified Code(s): R55 - Syncope and collapse Code(s): R55 - Syncope and collapse (3) Hyperlipidemia: Code(s): E78.5 - Hyperlipidemia, unspecified Plan Low suspicion for ACS or that her episode was secondary to cardiac etiology. Continue neurologic workup Documented By: Vic Hess DO 04/16/241803 Signed By: <Electronically signed by Vic Hess DO> 04/16/241804 [facility] Work Phone: Reason for referral (narrative)* Outpatient Procedure (Routine) - Authorized Specialty Diagnoses / Procedures Referred By Marie t Referred To [facility] [place] Diagnoses Bronchiectasis without complication (HCC) Procedures LUNG DIFFUSION CAPACITY (DLCO) DIFFUSING CAPACITY Ubaldo Dubose MD [address] [place] [address] [facility] [place] [place] [address] [place] [id number] Referral ID Status Reason Start Date Expiration Date Visits Requested Visits Authorized [id number] Authorized Auto-Generat ed Referral 12/28/2023 01/26/2025 1 1 * Outpatient Procedure (Routine) - Authorized Specialty Diagnoses / Procedures Referred By Contac t Referred To [facility] [place] Diagnoses Bronchiectasis without complication (HCC) Procedures SPIROMETRY BASELINE ONLY SPMTRY W/VC EXPIRATORY MIRIAM W/WO MXML VOL VNTJ Ubaldo Dubose MD [address] [place] [address] [facility] [place] [place] [address] [place] [address] Referral ID Status Reason Start Date Expiration Date Visits Requested Visits Authorized [id number] Authorized Auto-Generat ed Referral 12/28/2023 01/26/2025 1 1 [facility] for referral (narrative)* Outpatient Procedure (Routine) - Pending Review Specialty Diagnoses / Procedures Referred By Contac t Referred To [facility] Diagnoses Convulsions, unspecified convulsion type (HCC) Procedures EPIL EEG LONG EEG EXTENDED MONITORING 61-119 MINUTES ELECTROENCEPHALOGRAM REC COMA/SLEEP ONLY Charito Crow APRN.CNP [address] [place] [address] [address] Referral ID Status Reason Start Date Expiration Date Visits Requested Visits Authorized [id number] Pending Review Auto-Generat ed Referral 04/22/2024 04/22/2025 1 1 [facility] for referral (narrative)* Outpatient Procedure (Routine) - New Request Specialty Diagnoses / Procedures Referred By Contac t Referred To [facility] Diagnoses Convulsions, unspecified convulsion type (HCC) Procedures EPIL EEG LONG EPIL EEG LONG EEG EXTENDED MONITORING 61-119 MINUTES ELECTROENCEPHALOGRAM REC COMA/SLEEP ONLY Melvi García PA-C [address] [place] [address] [facility] [address] [place] [address] Referral ID Status Reason Start Date Expiration Date Visits Requested Visits Authorized [id number] New Request Auto-Generat ed Referral 07/30/2024 07/30/2025 1 1 [facility] Family History No Family History Records FoundUnknown Family Member Name Dates Details Family history of myocardial infarction: Brother(V17.3, Z82.49) Status:Active Relationship Condition Age at Onset Recorded Date/T everette Not Specified Alzheimer's disease Unknown Cerebrovascular accident (CVA) Unknown Diabetes mellitus Unknown father Diabetes mellitus Unknown brother Diabetes mellitus Unknown Heart disease Unknown sister Cerebrovascular accident (CVA) Unknown Relationship Condition Age at Onset Recorded Date/T everette mother Alzheimer's disease Unknown Cerebrovascular accident (CVA) Unknown [...] R06.00 Acid reflux dysphagia- vital stim J84.89/J84.10/I26.99 Syncope Reason for Visit Bronchitis Dysphagia GERD (gastroesophageal reflux disease) Globus sensation ACS (acute coronary syndrome) Syncope Chief Complaint Dysphagia Cough R06.00 Acid reflux dysphagia- vital stim J84.89/J84.10/I26.99 Syncope Syncope Reason for Visit Bronchitis Dysphagia GERD (gastroesophageal reflux disease) Globus sensation ACS (acute coronary syndrome) Hyperlipidemia NSTEMI (non-ST elevated myocardial infarction) Syncope Chief Complaint Dysphagia Cough R06.00 Acid reflux dysphagia- vital stim gerd,dysphagia,globus sensation J84.89/J84.10/I26.99 Syncope Syncope Reason for Visit Bronchitis Dysphagia GERD (gastroesophageal reflux disease) Globus sensation ACS (acute coronary syndrome) Hyperlipidemia NSTEMI (non-ST elevated myocardial infarction) Syncope Chief Complaint Cough R06.00 Acid reflux dysphagia- vital stim gerd,dysphagia,globus sensation J84.89/J84.10/I26.99 Syncope Syncope Reason for Visit Bronchitis Dysphagia GERD (gastroesophageal reflux disease) Globus sensation ACS (acute coronary syndrome) Hyperlipidemia NSTEMI (non-ST elevated myocardial infarction) Syncope Chief Complaint Cough R06.00 Acid reflux dysphagia- vital stim gerd,dysphagia,globus sensation J84.89/J84.10/I26.99 Syncope Syncope E03.9 Reason for Visit Bronchitis Dysphagia GERD (gastroesophageal reflux disease) Globus sensation ACS (acute coronary syndrome) Hyperlipidemia NSTEMI (non-ST elevated myocardial infarction) Syncope Reason for Referral Specialty Diagnoses / Procedures Referred By Marie t Referred To Contact Cardiology Diagnoses Shortness of breath Cough, unspecified type Abnormal lung sounds Procedures Transthoracic Echo Complete WI ECHO TTHRC R-T 2D W/WOM-MODE COMPL SPEC&COLR D Judit Lora MD [address] [place] [address] Referral ID Status Reason Start Date Expiration Date Visits Requested Visits Authorized [id number] Pending Review Perform Procedure 03/10/2024 03/10/2025 1 1 Specialty Diagnoses / Procedures Referred By Marie duff Referred To Contact Diagnoses Shortness of breath Procedures ECG 12 Lead Judit Lora MD [address] [place] [address] Referral ID Status Reason Start Date Expiration Date V isits Requested Visits Authorized [id number] Authorized 03/10/2024 03/10/2025 1 1 Specialty Diagnoses / Procedures Referred By Marie t Referred To Contact Cardiology Diagnoses Shortness of breath Procedures Follow Up In Cardiology Judit Lora MD [address] [place] [address] Judit Lora MD [address] [place] [address] Referral ID Status Reason Start Date Expiration Date V isits Requested Visits Authorized [id number] Authorized 03/10/2024 03/10/2025 1 1 Specialty Diagnoses / Procedures Referred By Marie t Referred To Contact CT IMAGING Diagnoses Interstitial pulmonary disease (HCC) Procedures CT CHEST WO IVCON DIAGNOSTIC COMPUTED TOMOGRAPHY THORAX W/O CNTRST ElvisDee, SHOT COAT TENDER.SHOT COAT TENDER [address] [place] [address] [facility] [address] [address] Referral ID Status Reason Start Date Expiration Date V isits Requested Visits Authorized [id number] Closed Auto-Generate d Referral 12/11/2023 01/09/2025 1 1 Additional Source Comments Goals (unrecognized [...] section and content) DATE CREATED AUTHOR 10/21/2021 [facility] dical Specialist DATE CREATED AUTHOR AUTHOR'S ORGANIZ ATION 10/22/2021 [employer] DATE CREATED AUTHOR AUTHOR'S ORGANIZ ATION 02/12/2023 [facility] DATE CREATED AUTHOR AUTHOR'S ORGANIZ ATION 04/26/2024 [facility] dical Specialists EPIC DATE CREATED AUTHOR AUTHOR'S ORGANIZ ATION 05/20/2024 [facility] DATE CREATED AUTHOR AUTHOR'S ORGANIZ ATION 06/15/2024 [facility] DATE CREATED AUTHOR AUTHOR'S ORGANIZ ATION 08/02/2024 [facility] Source Comments (unrecognize d section and content) In the event this informatio n is protected by the Federal Confidentiality of Alcohol and Drug Abuse Patient Records regulations: The Federal rules restrict any use of the information to criminally investigate or prosecute any alcohol or drug abuse patient.[facility] the event this information is protected by the Federal Confidentiality of Alcohol and Drug Abuse Patient Records regulations: The Federal rules restrict any use of the information to criminally investigate or prosecute any alcohol or drug abuse patient.[facility] the event this information is protected by the Federal Confidentiality of Alcohol and Drug Abuse Patient Records regulations: The Federal rules restrict any use of the information to criminally investigate or prosecute any alcohol or drug abuse patient.[facility] the event this information is protected by the Federal Confidentiality of Alcohol and Drug Abuse Patient Records regulations: The Federal rules restrict any use of the information to criminally investigate or prosecute any alcohol or drug abuse patient.[facility] the event this information is protected by the Federal Confidentiality of Alcohol and Drug Abuse Patient Records regulations: The Federal rules restrict any use of the information to criminally investigate or prosecute any alcohol or drug abuse patient.[facility] the event this information is protected by the Federal Confidentiality of Alcohol and Drug Abuse Patient Records regulations: The Federal rules restrict any use of the information to criminally investigate or prosecute any alcohol or drug abuse patient.[facility] the event this information is protected by the Federal Confidentiality of Alcohol and Drug Abuse Patient Records regulations: The Federal rules restrict any use of the information to criminally investigate or prosecute any alcohol or drug abuse patient.[facility] the event this information is protected by the Federal Confidentiality of Alcohol and Drug Abuse Patient Records regulations: The Federal rules restrict any use of the information to criminally investigate or prosecute any alcohol or drug abuse patient.[facility] the event this information is protected by the Federal Confidentiality of Alcohol and Drug Abuse Patient Records regulations: The Federal rules restrict any use of the information to criminally investigate or prosecute any alcohol or drug abuse patient.[facility] the event this information is protected by the Federal Confidentiality of Alcohol and Drug Abuse Patient Records regulations: The Federal rules restrict any use of the information to criminally investigate or prosecute any alcohol or drug abuse patient.[facility] the event this information is protected by the Federal Confidentiality of Alcohol and Drug Abuse Patient Records regulations: The Federal rules restrict any use of the information to criminally investigate or prosecute any alcohol or drug abuse patient.[facility] the event this information is protected by the Federal Confidentiality of Alcohol and Drug Abuse Patient Records regulations: The Federal rules restrict any use of the information to criminally investigate or prosecute any alcohol or drug abuse patient.[facility] the event this information is protected by the Federal Confidentiality of Alcohol and Drug Abuse Patient Records regulations: The Federal rules restrict any use of the information to criminally investigate or prosecute any alcohol or drug abuse patient.[facility] the event this information is protected by the Federal Confidentiality of Alcohol and Drug Abuse Patient Records regulations: The Federal rules restrict any use of the information to criminally investigate or prosecute any alcohol or drug abuse patient.[facility] the event this information is protected by the Federal Confidentiality of Alcohol and Drug Abuse Patient Records regulations: The Federal rules restrict any use of the information to criminally investigate or prosecute any alcohol or drug abuse patient.[facility] Hospital[facility] the event this information is protected by the Federal Confidentiality of Alcohol and Drug Abuse Patient Records regulations: The Federal rules restrict any use of the information to criminally investigate or prosecute any alcohol or drug abuse patient.[facility] Hospital[facility] the event this information is protected by the Federal Confidentiality of Alcohol and Drug Abuse Patient Records regulations: The Federal rules restrict any use of the information to criminally investigate or prosecute any alcohol or drug abuse patient.[facility] Hospital[facility] the event this information is protected by the Federal Confidentiality of Alcohol and Drug Abuse Patient Records regulations: The Federal rules restrict any use of the information to criminally investigate or prosecute any alcohol or drug abuse patient.[facility] Hospital[facility] the event this information is protected by the Federal Confidentiality of Alcohol and Drug Abuse Patient Records regulations: The Federal rules restrict any use of the information to criminally investigate or prosecute any alcohol or drug abuse patient.[facility] Hospital[facility] the event this information is protected by the Federal Confidentiality of Alcohol and Drug Abuse Patient Records regulations: The Federal rules restrict any use of the information to criminally investigate or prosecute any alcohol or drug abuse patient.[facility] Hospital[facility] the event this information is protected by the Federal Confidentiality of Alcohol and Drug Abuse Patient Records regulations: The Federal rules restrict any use of the information to criminally investigate or prosecute any alcohol or drug abuse patient.[facility] Care Teams (unrecognized sec tion and content) Roller Skate Assembler Relationship Specialty Start Date End Date Ash Vance, DO [address] [place] [address] PCP - General 05/25/09 Roller Skate Assembler Relationship Specialty Start Date End Date Ash Vance, DO [address] [place] [address] PCP - General 05/25/09 Roller Skate Assembler Relationship Specialty Start Date End Date sAh Vance, DO [address] [place] [address] PCP - General 05/25/09 Team Status: Inactive [...] November 21, 2023 End: November 21, 2023 Roller Skate Assembler Relationship Specialty Start Date End Date Jamal Alvarez DO [address] [place] [address] PCP - General Internal Medicine 12/25/23 Roller Skate Assembler Relationship Specialty Start Date End Date Jamal Alvarez DO [address] [place] [address] PCP - General Internal Medicine 12/25/23 Roller Skate Assembler Relationship Specialty Start Date End Date Jamal Alvarez DO [address] [place] [address] PCP - General Internal Medicine 12/25/23 Team [...] Provider Active S tart: February 13, 2024 Roller Skate Assembler Relationship Specialty Start Date End Date Jamal Alvarez DO [address] [place] [address] PCP - General Internal Medicine 12/25/23 Team Status: Active Member Role Status Dates Jamal Alvarez DO Primary Care Provide r, Attending Provider Active Start: February 19, 2024 Team Status: Inactive Member Role Status Dates Jamal Alvarez DO Primary Care Provider Active Start: February 21, 2024 End: February 21, 2024 Flex Ramos MD Attending Provider Active Start: February 21, 2024 End: February 21, 2024 Roller Skate Assembler Relationship Specialty Start Date End Date Jamal Alvarez DO [address] [place] [address] PCP - General Internal Medicine 12/25/23 Team [...] February 25, 2024 End: February 25, 2024 Roller Skate Assembler Relationship Specialty Start Date End Date Jamal Alvarez DO [address] [place] [address] PCP - General Internal Medicine 12/25/23 Roller Skate Assembler Relationship Specialty Start Date End Date Jamal Alvarez DO [address] [place] [address] PCP - General Internal Medicine 12/25/23 Roller Skate Assembler Relationship Specialty Start Date End Date Jamal Alvarez DO [address] [place] [address] PCP - General Internal Medicine 12/25/23 Roller Skate Assembler Relationship Specialty Start Date End Date Jamal Alvarez DO [address] [place] [address] PCP - General 11/05/99 Team Status: Active Member Role Status Dates Jamal Alvarez DO Primary Care Provider Active Start: April 13, 2024 Simone Navarro MD Emergency Provider Active Star t: April 13, 2024 Albert Palacio DO Admit Provider, Attending Provider Active Start: April 13, 2024 Team Status: Inactive Member Role Status Dates Jamal Alvarez DO Primary Care Provider Active Start: April 13, 2024 End: April 16, 2024 Simone Navarro MD Emergency Provider Active Star t: April 13, 2024 End: April 16, 2024 Albert Palacio DO Admit Provider Active Start: April 13, 2024 End: April 16, 2024 Renan Murguia MD Attending Provider Active St art: April 13, 2024 End: April 16, 2024 Shahnaz Freeman RN Other Provider Active Star t: April 13, 2024 End: April 16, 2024 Vic Hess DO Other Provider Active Start : April 13, 2024 End: April 16, 2024 Gilbert Torre MD Other Provider Active Start: April 13, 2024 End: April 16, 2024 Malik Luu MD Other Provider Active Start: April 13, 2024 End: April 16, 2024 Sukhwinder Luu MD Other Provider Active St art: April 13, 2024 End: April 16, 2024 Oleg Milton MD Other Provider Active Start: April 13, 2024 End: April 16, 2024 Adilene Navarro APRN Other Provider Active Start : April 13, 2024 End: April 16, 2024 Judit Lora MD Other Provider Active Start: J une 2023 End: April 16, 2024 Mireille Jorge MD Other Provider Active Start: April 13, 2024 End: April 16, 2024 Anthony Riddle MD Other Provider Active Start: J une 2023 End: April 16, 2024 Emilee Perez , [facility]- Other Provider Active Sta rt: April 13, 2024 End: April 16, 2024 Andry Nugent DO Other Provider Active Start: April 13, 2024 End: April 16, 2024 Team Status: Active Member Role Status Dates Jamal Alvarez DO Primary Care Provider Active Start: April 16, 2024 Simone Navarro MD Emergency Provider Active Star t: April 16, 2024 Albert Palacio DO Admit Provider Active Start: April 16, 2024 Renan Murguia MD Other Provider Active Start: April 16, 2024 Shahnaz Freeman RN Other Provider Active Star t: April 16, 2024 Vic Hess DO Other Provider Active Start : April 16, 2024 Gilbert Torre MD Other Provider Active Start: April 16, 2024 Malik Luu MD Other Provider Active Start: April 16, 2024 Sukhwinder Luu MD Other Provider Active St art: April 16, 2024 Oleg Milton MD Other Provider Active Start: April 16, 2024 Adilene Navarro APRN Other Provider Active Start : April 16, 2024 Judit Lora MD Other Provider Active Start: J une 2023 Mireille Jorge MD Other Provider Active Start: April 16, 2024 Anthony Riddle MD Other Provider Active Start: J une 2023 Emilee Perez , [facility] Other Provider Active Sta rt: April 16, 2024 Andry Nugent DO Other Provider Active Start: April 16, 2024 Inocencio Mg MD Attending Provider Activ e Start: April 16, 2024 Team Status: Inactive Member Role Status Dates Jamal Alvarez DO Primary Care Provider Active Start: February 22, 2024 End: February 22, 2024 Flex Ramos MD Attending Provider Active Start: February 22, 2024 End: February 22, 2024 Roller Skate Assembler Relationship Specialty Start Date End Date Jmaal Alvarez DO [address] [place] [address] PCP - General Internal Medicine 12/25/23 Team Status: Inactive Member Role Status Dates Jamal Alvarez DO Primary Care Provider Active Start: April 22, 2024 End: April 22, 2024 Valdez Castro MD Attending Provider Active S tart: April 22, 2024 End: April 22, 2024 Roller Skate Assembler Relationship Specialty Start Date End Date Jamal Alvarez DO [address] [place] [address] PCP - General Internal Medicine 12/25/23 Team Status: Inactive Member Role Status Dates Jamal Alvarez DO Primary Care Provide r, Attending Provider Active Start: February 21, 2024 End: February 21, 2024 Team Status: Inactive Member Role Status Dates Jamal Alvarez DO Primary Care Provider Active Start: April 13, 2024 End: April 16, 2024 Simone Navarro MD Emergency Provider Active Star t: April 13, 2024 End: April 16, 2024 Albert Palacio DO Admit Provider Active Start: April 13, 2024 End: April 16, 2024 Renan Murguia MD Attending Provider Active St art: April 13, 2024 End: April 16, 2024 Andry Nugent DO Other Provider Active Start: April 13, 2024 End: April 16, 2024 Shahnaz Freeman RN Other Provider Active Star t: April 13, 2024 End: April 16, 2024 Vic Hess DO Other Provider Active Start : April 13, 2024 End: April 16, 2024 Gilbert Torre MD Other Provider Active Start: April 13, 2024 End: April 16, 2024 Malik Luu MD Other Provider Active Start: April 13, 2024 End: April 16, 2024 Sukhwinder Luu MD Other Provider Active St art: April 13, 2024 End: April 16, 2024 Oleg Milton MD Other Provider Active Start: April 13, 2024 End: April 16, 2024 Adilene Navarro APRN Other Provider Active Start : April 13, 2024 End: April 16, 2024 Judit Lora MD Other Provider Active Start: J tim 2023 End: April 16, 2024 Mireille Jorge MD Other Provider Active Start: April 13, 2024 End: April 16, 2024 Anthony Riddle MD Other Provider Active Start: J une 2023 End: April 16, 2024 Emilee Perez [facility] Other Provider Active Sta rt: April 13, 2024 End: April 16, 2024 Team Status: Active Member Role Status Dates Jamal Alvarez DO Primary Care Provider Active Start: April 16, 2024 End: April 16, 2024 Simone Navarro MD Emergency Provider Active Star t: April 16, 2024 End: April 16, 2024 Albert Palacio DO Admit Provider Active Start: April 16, 2024 End: April 16, 2024 Renan Murguia MD Other Provider Active Start: April 16, 2024 End: April 16, 2024 Shahnaz Freeman RN Other Provider Active Star t: April 16, 2024 End: April 16, 2024 Vic Hess DO Other Provider Active Start : April 16, 2024 End: April 16, 2024 Gilbert Torre MD Other Provider Active Start: April 16, 2024 End: April 16, 2024 Malik Luu MD Other Provider Active Start: April 16, 2024 End: April 16, 2024 Sukhwinder Luu MD Other Provider Active St art: April 16, 2024 End: April 16, 2024 Oleg Milton MD Other Provider Active Start: April 16, 2024 End: April 16, 2024 Adilene Navarro APRN Other Provider Active Start : April 16, 2024 End: April 16, 2024 Judit Lora MD Other Provider Active Start: J 2023 End: April 16, 2024 Mireille Jorge MD Other Provider Active Start: April 16, 2024 End: April 16, 2024 Anthony Riddle MD Other Provider Active Start: J 2023 End: April 16, 2024 Emilee Perez [facility] Other Provider Active Sta rt: April 16, 2024 End: April 16, 2024 Andry Nugent DO Other Provider Active Start: April 16, 2024 End: April 16, 2024 Inocencio Mg MD Attending Provider Activ e Start: April 16, 2024 End: April 16, 2024 Roller Skate Assembler Relationship Specialty Start Date End Date Jamal Alvarez DO [address] [place] [address] PCP - General Internal Medicine 12/25/23 Roller Skate Assembler Relationship Specialty Start Date End Date Antonio Jamal YogeshDO [address] [place] [address] PCP - General Internal Medicine 12/25/23 Reason for Visit (unrecogniz ed section and content) Reason Comments Spirometry Specialty Diagnoses / Procedures Referred By Contac t Referred To Contact [facility] Diagnoses ILD (interstitial lung disease) (HCC) Shortness of breath Procedures SPIROMETRY WITH DILATOR IF OBSTRUCTED BRNCDILAT RSPSE SPMTRY PRE&POST-BRNCDILAT ADMN Dee Leal, SHOT COAT TENDER.SHOT COAT TENDER [address] [address] [address] [place] [address] Referral ID Status Reason Start Date Expiration Date V isits Requested Visits Authorized [id number] Closed Auto-Generate d Referral 12/11/2023 01/09/2025 1 1 Specialty Diagnoses / Procedures Referred By Contac t Referred To Contact [facility] Diagnoses ILD (interstitial lung disease) (HCC) Shortness of breath Procedures LUNG DIFFUSION CAPACITY (DLCO) DIFFUSING CAPACITY Dee Leal, SHOT COAT TENDER.SHOT COAT TENDER [address] [address] [address] [place] [address] Referral ID Status Reason Start Date Expiration Date V isits Requested Visits Authorized [id number] Closed Auto-Generate d Referral 12/11/2023 01/09/2025 1 1 Reason Comments New Reason Comments Received Outside Medical Records Reason Comments Home nebulizer order Reason Comments Appointment Reason Comments Follow Up Reason Comments Establish Care Sob, fatigue,weaknes s Specialty Diagnoses / Procedures Referred By Contac t Referred To Contact Diagnoses Shortness of breath Procedures ECG 12 Lead Judit Lora MD [address] [facility] [address] [place] [address] Referral ID Status Reason Start Date Expiration Date V isits Requested Visits Authorized [id number] Authorized 03/10/2024 03/10/2025 1 1 Reason Comments Future Appointment [place], [place], ANY ([facility]? - PT PREF [place]) Specialty Diagnoses / Procedures Referred By Contac t Referred To Contact [facility] Diagnoses Bronchiectasis without complication (HCC) Procedures SPIROMETRY BASELINE ONLY SPMTRY W/VC EXPIRATORY MIRIAM W/WO MXML VOL VNTJ Ubaldo Dubose MD [address] [place] [address] [address] [place] [address] [place] [address] Referral ID Status Reason Start Date Expiration Date V isits Requested Visits Authorized [id number] Closed Auto-Generate d Referral 12/28/2023 01/26/2025 1 1 Specialty Diagnoses / Procedures Referred By Contac t Referred To Contact [facility] Diagnoses Bronchiectasis without complication (HCC) Procedures LUNG DIFFUSION CAPACITY (DLCO) DIFFUSING CAPACITY Ubaldo Dubose MD [address] [place] [address] Res[facility] [place] [address] [place] [address] Referral ID Status Reason Start Date Expiration Date V isits Requested Visits Authorized [id number] Closed Auto-Generate d Referral 12/28/2023 01/26/2025 1 1 Reason Comments Cough Reason Comments Certifcate of Medical Necessity Reason Comments Radiology NM Specialty Diagnoses / Procedures Referred By Contac t Referred To Contact CT IMAGING Diagnoses Interstitial pulmonary disease (HCC) Procedures CT CHEST WO IVCON DIAGNOSTIC COMPUTED TOMOGRAPHY THORAX W/O CNTRST Dee Leal, SHOT COAT TENDER.SH[employer] TENDER [address] [address] [place] [address] Referral ID Status Reason Start Date Expiration Date V isits Requested Visits Authorized [id number] Closed Auto-Generate d Referral 12/11/2023 01/09/2025 1 1 Reason Comments Orders FOR RECORDS PERTAINING TO PATIENTS WHO ARE [...] BE BASED ON THE PRIMARY CLINICAL RECORDS. [facility] [employer] [facility]. provides no warranty or guarantee of the accuracy or completeness of information in this document.
[2024-08-08 12:34] LABS: Creatinine Urine Random <13.00 mg/dL (20.00-300.00); Microalbumin Urine Random <1.3 mg/dL (<=30.0)
[2024-08-08 12:36] LABS: Basophils Absolute Auto 0.1 10^3/uL (0.0-0.1); Basophils Percent Auto 0.8 % (0.2-2.0); Eosinophils Absolute Auto 0.3 10^3/uL (0.0-0.7); Eosinophils Percent Auto 4.2 % (0.9-7.0); Hematocrit 40.9 % (36.0-48.0); Immature Granulocytes Abs Auto 0.01 10^3/uL (0.00-0.03); Immature Granulocytes Pct Auto 0.1 % (0.0-0.5); Lymphocytes Absolute Auto 2.3 10^3/uL (1.2-3.8); Lymphocytes Percent Auto 32.7 % (20.5-60.0); Mean Corpuscular HGB Conc 31.8 g/dL (29.9-35.2); Mean Corpuscular Hemoglobin 29.5 pg (26.7-34.0); Mean Corpuscular Volume 92.7 fL (81.0-99.0); Mean Platelet Volume 10.2 fL (9.5-13.5); Monocytes Absolute Auto 0.4 10^3/uL (0.3-0.8); Monocytes Percent Auto 5.5 % (1.7-12.0); Neutrophils Percent Auto 56.7 % (43.0-75.0); Platelet Count 262 10^3/uL (150-450); Red Blood Count 4.41 10^6/uL (4.20-5.40); Red Cell Distribution Width 12.5 % (11.0-15.0); White Blood Count 7.1 10^3/uL (4.0-11.0)
[2024-08-08 13:20] LABS: Alanine Aminotransferase 18 U/L (14-59); Albumin Globulin Ratio 0.9; Albumin Level 3.5 g/dL (3.4-5.0); Alkaline Phosphatase 48 U/L (46-116); Anion Gap 10.4; Aspartate Amino Transferase 13 U/L (15-37); BUN Creatinine Ratio 25.3; Bilirubin Total 0.4 mg/dL (0.2-1.0); Calcium 9.2 mg/dL (8.5-10.1); Carbon Dioxide 29.5 mmol/L (21.0-32.0); Chloride 102 mmol/L (98-107); Chol HDL Ratio 2.2; Cholesterol 145 mg/dL (<=200); Estimated GFR (African America >60 (>=60 mL/min/1.73m^2); Estimated GFR (Non-African Ame >60 (>=60 mL/min/1.73m^2); Globulin 3.7 g/dL; Glucose 102 mg/dL (74-106); HDL Cholesterol 65 mg/dL (40-60); Potassium 3.9 mmol/L (3.5-5.1); Sodium 138 mmol/L (136-145); Total Protein 7.2 g/dL (6.4-8.2); Triglycerides 68 mg/dL (<=150); VLDL CHOLESTEROL 13.6 mg/dL
== END 2024-08-08 12:00 | disposition home or self-care (01) ==
PROVIDERS: PCP Internal Medicine; Visit Provider Internal Medicine
DX: J84.10 Pulmonary fibrosis, unspecified (principal); E11.42 Type 2 diabetes mellitus with diabetic polyneuropathy; F02.80 Dementia in other diseases classified elsewhere, unspecified severity, without behavioral disturbance, psychotic disturbance, mood disturbance, and anxiety; R45.86 Emotional lability; S06.9X9S Unspecified intracranial injury with loss of consciousness of unspecified duration, sequela
CPT/HCPCS: 36415; 80053; 80061; 82043; 82570; 85025

== ENCOUNTER 2024-08-24 18:00 | Outpatient (OUT) | payer MEDICARE, SELFPAY ==
--- OUTSIDE RECORDS SUMMARY | 2024-08-24 18:04 | XMS_ITS | CCD ---
Author Organization [facility] Care Team Providers Care Hand Quilter Name Role Phone Jamal Alvarez Unavailable Unavailable Unavailable Ash Hemphill DO Primary Care Provider Ash Hemphill DO Primary Care Provider DO Jamal Alvarez Primary Care Provider DO Hermes Kennedy Attending Provider DIAB ., BRUCE Admitting Unavailable DIAB ., BRUCE Attending Unavailable ANTONIO, DR WILLAMS Primary Care Unavailable DIAB ., BRUCE Consulting Unavailable ANTONIO, DR WILLAMS Admitting Unavailable ANTONIO, DR WILLAMS Attending Unavailable QUINTIN LEROY Primary Care Unavail able WEST, DR JEANETH Mata Consulting Unavailable ANTONIO, DR WILLAMS Consulting Unavailable ANTONIO, DR WILLAMS Admitting Unavailable ANTONIO, DR WILLAMS Attending Unavailable QUINTIN LEROY Primary Care Unavail able ANTONIO, DR WILLAMS Consulting Unavailable DO Jamal Alvarez Primary Care Provider MD Valdez Castro Attending Provider [phone] DO Jamal Alvarez Attending Provider Jamal Alvarez DO Primary Care Provider DO Jamal Alvarez Primary Care Provider [phone] DO Jamal Alvarez Attending Provider [phone] CORNELIUS Pearce Attending Provider [phone] DO Jamal Alvarez Primary Care Provider DO Jamal Alvarez Attending Provider [phone] TEAGAN Lockhart Attending Provider Jamal Alvarez DO Primary Care Provider Jamal Alvarez DO Primary Care Provider MD Simone Navarro Emergency Provider DO Albert Palacio Admit Provider DO Albert Palacio Attending Provider MD Renan Murguia Attending Provider TEAGAN Freeman Other Provider Unavailable DO Vic Hess Other Provider MD Gilbert Torre Other Provider [phone] MD Malik Luu Other Provider MD Sukhwinder Luu Other Provider MD Oleg Milton Other Provider ROSELYN Navarro Other Provider MD Judit Lora Other Provider MD Joe Jorgeammwoodrow Ricci Other Provider MD Anthony Riddle Other Provider Chris [facility] Emilee Tineo Other Provider DO Andry Nugent Other Provider MD Flex Ramos Attending Provider DO Jamal Alvarez Primary Care Provider DO Jamal Alvarez Attending Provider [phone] MD Valdez Castro Attending Provider JAMAL ALVAREZ Attending Unavailable JAMAL ALVAREZ Referring Unavailable IRVING DUVALL Attending Unavailable EMMA MELISSA Referring Unavailable ALICE FROST Referring Unavailable JAMAL ALVAREZ Attending Unavailable JAMAL ALVAREZ Referring Unavailable JAMAL ALVAREZ Attending Unavailable JAMAL ALVAREZ Referring Unavailable JESUS ROBERSON Attending Unavailable JESUS ROBERSON Referring Unavailable JAMAL ALVAREZ Referring Unavailable JAMAL ALVAREZ Attending Unavailable GILBERT LOVETT Attending Unavailable Antonio Jamal Primary Care Unavailable Moosa, Valdez F Attending Unavailable Moosa, Valdez F Admitting Unavailable Antonio, Jamal Primary Care Unavailable Moosa, Valdez F Admitting Unavailable Moosa, Valdez F Attending Unavailable Jamal Alvarez Attending Unavailable Antonio, Jamal [...] Perez Consulting Unavailable Andry Nugent Consulting Unavailable Jamal Alvarez Primary Care Unavailable Jamal Alvarez Attending Unavailable Antonio, Jamal Admitting Unavailable Antonio, Jamal Primary Care Unavailable Jamal Alvarez Attending Unavailable Antonio, Jamal Admitting Unavailable Jose Luis Lockhart Attending Unavailable Jose Luis Lockhart Admitting Unavailable Antonio Jamal Primary Care Unavailable Asaad, Imad Attending Unavailable Asaad, Imad Admitting Unavailable Antonio Jamal Primary Care Unavailable Nallely Pearec Attending Unavailable Portia Nallely Admitting Unavailable Antonio Jamal Primary Care Unavailable Moosa, Valdez F Attending Unavailable Moosa, Valdez F Admitting Unavailable Antonio Jamal Primary Care Unavailable REECE LORAA Attending Unavailable JAMAL ALVAREZ A Primary Care Unavailable REECE LORAA Attending Unavailable DEMARCO, JUDIT Referring Unavailable JAMAL ALVAREZ Primary Care Unavailable JAMAL ALVAREZ Primary Care UnavailUBALDO Tucker Attending Unavailable JAMAL ALVAREZ Primary Care Unavailabl e KAYCEE, DEE Referring Unavailable BUNTING, ASH RAY Primary Care Unavailable GLENNIE, DEE Referring Unavailable BUNTING, ASH RAY Primary Care Unavailable PAZNNIE, DEE Referring Unavailable JAMAL ALVAREZ Primary Care Unavailabl LISA Koroma Attending Unavailable JAMAL ALVAREZ Primary Care Unavailabl e UBALDO DUBOSE Attending Unavailable JAMAL ALVAREZ Primary Care Unavailabl UBALDO Thorpe Referring Unavailable JAMAL ALVAREZ Primary Care Unavailabl e UBALDO DUBOSE Referring Unavailable JAMAL ALVAREZ Primary Care Unavailabl e UBALDO DUBOSE Attending Unavailable Jamal Alvarez DO Primary Care Provider Irving Duvall DO Unavailable Ubaldo Dubose MD Unavailable Matthew IVY, Valdez Unavailable Rachel IVY, Flex Unavailable Judit Lora MD Unavailable Allergies Allergy Classification Reported Allergen(s) Allergy Type Date of Onset Reaction(s) Facility Benzodiazepines (2 sources) Midazolam Drug Allergy 01-10-20 23 Mental Status Change [facility] Berries (1 source) [place] Food Allergy 06-29-20 09 Rash [facility] Latex (1 source) Latex Substance Allergy 06-29-20 09 [facility] Opioid Agonists (2 sources) Codeine Drug Allergy 08-21-20 23 Other: See Comments [facility] Penicillins (antibiotic) (1 source) Penicillins Drug Allergy 06-29-20 09 [facility] strawberry allergenic extract (1 source) strawberry allergenic extract Drug Allergy 04-13-20 24 Nausea [facility] Sulfonamides (antibiotic) (2 sources) Sulfonamides (Antibiotic) Drug Allergy 06-29-20 09 Rash [facility] (16 sources) Codeine; Translations: [codeine] Drug Allergy 12-26-19 23 Unknown Reaction [facility] (5 sources) Penicillins; Translations: [Penicillins] Allergy to drug (finding) 06-29-20 09 [facility] 3 [facility] (20 sources) Propoxyphene; Translations: [propoxyphene] Drug Allergy 08-21-20 Other: See Comments [facility] (3 sources) Sulfamethoxazol e; Translations: [sulfa] Drug Allergy -[facility] y 250 DO Work Phone: (20 sources) Latex; Translations: [LATEX] Propensity to adverse reactions 06-29-20 [facility] (1 source) Penicillins Propensity to adverse reactions 06-29-20 [facility] (20 sources) [place]; Translations: [STRAWBERRIES] Propensity to adverse reactions 06-29-20 [facility] (20 sources) Sulfonamides (Antibiotic); Translations: [SULFA (SULFONAMIDE ANTIBIOTICS)] Propensity to adverse reactions 06-29-20 [facility] (20 sources) Propoxyphene N-Acetaminophen ; Translations: [PROPOXYPHENE N-ACETAMINOPHEN ] Drug Allergy 06-29-20 [facility] (20 sources) Penicillins Propensity to adverse reactions 06-29-20 [facility] (12 sources) strawberry allergenic extract Drug Allergy 12-26-19 Nausea [facility] (1 source) Penicillins Drug allergy (disorder) [facility] (1 source) Sulfonamides (Antibiotic) Drug allergy (disorder) [facility] (20 sources) Midazolam; Translations: [MIDAZOLAM] Drug Allergy 01-10-20 Mental Status Change, Hallucinations [facility] (12 sources) opiates Propensity to adverse reactions 01-10-20 Confusion [facility] (19 sources) Morphinan opioid; Translations: [OPIOIDS - MORPHINE ANALOGUES] Drug Allergy 12-26-19 Mental Status Change, Unknown, Hallucinations [facility] (1 source) Latex Propensity to adverse reactions 06-29-20 [facility] (1 source) Penicillins Drug Allergy 06-29-20 [facility] (1 source) Other Allergy to substance 08-21-20 [facility] Medications Current Medications Medication Drug Class(es) Dates Sig (Normalized) Sig (Original) [id number] 200 actuat albuterol 0.09 mg/actuat metered dose inhaler (12 sources) beta2-Adrenergic Agonist Start: 03-10-2024 take 2 puff(s) by inhalation every four hours as needed albuterol HFA (Ventolin HFA) 90 mcg/act inhaler Indications: Pulmonary fibrosis (CMS/HCC) 2 puffs Inhalation every 4 hrs as needed for 30 days 18 g 3 03/10/2024 Active End: 12-28-2023 albuterol sulfate 90 mcg/act uation aebs Inhale as instructed. 12/28/2023 Discontinued take [...] / ipratropium bromide 0.167 mg/ml inhalation solution (14 sources) Anticholinergic, beta2-Adrenergic Agonist Start: 4 take 3 mL by inhalation every four hours as needed ipratropium-albute rol (DUONEB) 0.5 mg-3 mg(2.5 mg base)/3 mL nebu Inhale 3 mL as instructed every 4 hours as needed for wheezing/shortness of breath. 360 mL 2 05/05/2024 Active [...] as needed. azithromycin 250 mg oral tablet (4 sources) Macrolide Antimicrobial Start: take 1 tablet [...] Start: 07-17-2021 take 1 tablet by marilyn once daily Fluconazole 150 MG Oral Tablet TAKE 1 TABLET DAILY DIRECTED. Quantity: 0 Refills: 0 Ordered: 17-Jul-2021 DO Start : 17-Jul-2021 Active furosemide 20 mg oral tablet (7 sources) Loop Diuretic Start: 03-10-2024 take 10 mg by mouth once daily [...] 1 tablet by mouth every 30 days in the morning ibandronate (Boniva) 150 MG tablet Indications: Senile osteoporosis (CMS/HCC) Take 1 tablet (150 mg) by mouth every 30 (thirty) days Take in morning with full glass of water on an empty stomach. No food, drink, meds, or lying down for 60 minutes after. 3 tablet 3 08/06/2024 Active Start: 11-05-2019 take 1 tablet by marilyn th every month Ibandronate Sodium 150 MG Oral Tablet TAKE 1 TABLET BY MOUTH ONCE A MONTH Quantity: 3 Refills: 0 Ordered: 09-Aug-2021 DO Start : 16-Feb-2021 Active Comment on above: Take 1 tablet by marilyn th. ketorolac tromethamine 5 mg/ml ophthalmic solution (7 sources) Nonsteroidal Anti-inflammatory Drug, Cyclooxygenase Inhibitor Start: 04-13-2024 ketorolac (Acular) 0.5 % ophthalmic solution Three times daily 04/13/2024 Active Start: 04-13-2024 take 1 drop(s) into the eye(s) three times daily Ketorolac Active 1 DROPS EYE-RIGHT Three times daily April 13, 2024 12:00am Start: 02-13-2024 End: 03-14-2024 take 1 drop(s) into the eye(s) twice daily ketorolac (Acular) 0.5 % ophthalmic solution Administer 1 drop into affected eye(s) twice a day. 02/13/2024 03/14/2024 Active lamoTRIgine 25 mg oral tablet (1 source) Mood Stabilizer, Anti-epileptic Agent Start: 08-13-2024 lamoTRIgine (LAMICTAL) 25 mg tablet take 1 qhs for 2 weeks, then 1 pill bid for two weeks, then 1 pill in AM, 2pill in PM for week, then 2 pills bid for 1 week, then 2 pill in AM, 3 pill in PM for week, then 3 pills bid and stay at that dose. 180 tablet 2 08/13/2024 Active levETIRAcetam 250 mg oral tablet (4 sources) Start: 04-16-2024 take 250 mg by mouth twice daily Levetiracetam Active 250 MG PO Twice daily 180 90 April 16, 2024 12:00am levoFLOXacin 500 mg oral tablet (1 source) Quinolone Antimicrobial Start: 02-24-2024 take 1 tablet by mouth once daily levoFLOXacin (Levaquin) 500 MG tablet Take 500 mg by mouth Daily 02/24/2024 Active liothyronine sodium 0.005 mg oral tablet (20 sources) l-Triiodothyronine Start: 10-25-2023 take 1 tablet by mouth [...] oral capsule (20 sources) Opioid Agonist Start: 10-17-2021 End: 03-03-2024 take 2 mg by mouth once daily in the morning Loperamide Active 2 MG PO Every morning February 21, 2024 10:47am LOPERAMIDE HCL P O Daily as needed. Active Comment on above: Every morning MULTIVITAMIN TAB [...] up to 1 day. Use as directed. nitrofurantoin, macrocrystals 25 mg / nitrofurantoin, monohydrate 75 mg oral capsule (1 source) Nitrofuran Antibacterial Start: 04-22-20 take 1 capsule by mouth in the morning nitrofurantoin, macrocrystal-monohyd rate, (Macrobid) 100 MG capsule Indications: Urinary tract infection without hematuria, site unspecified Take 1 capsule (100 mg) by mouth in the morning and 1 capsule (100 mg) before bedtime. 10 capsule 3 04/22/2024 Active ofloxacin 3 mg/ml ophthalmic solution (7 sources) Quinolone Antimicrobial Start: 04-13-20 take 1 drop(s) into the eye(s) twice daily Ofloxacin Active 1 DROPS EYE-RIGHT Twice daily April 13, 2024 12:00am Start: 02-13-2024 take 1 drop(s) into the eye(s) five times daily ofloxacin (Ocuflox) 0.3 % ophthalmic solution Administer 1 drop into the right eye 5 (five) times a day 02/13/2024 Active Start: 02-13-2024 take 1 drop(s) into the eye(s) five times daily ofloxacin (Ocuflox) 0.3 % ophthalmic solution Administer 1 drop into the right eye five times a day for 1 day Starting 1 day before surgery, continue after surgery as directed 02/13/2024 Active omeprazole 40 mg delayed release oral capsule (20 sources) Proton Pump Inhibitor Start: 08-09-2021 End: 02-24-2025 take 1 capsule by mouth before mealtime omeprazole (PriLOSEC) [address] capsule Indications: Gastroesophageal reflux disease without esophagitis Take 1 capsule (40 mg) by mouth in the morning. Take before meals. Do not crush or chew.. 30 capsule 02/25/2024 02/24/2025 Active Comment on above: Take by mouth at bedtime as needed. 24 hr oxybutynin chloride 5 mg extended release oral tablet (20 sources) Cholinergic Muscarinic Antagonist Start: 05-15-2024 take 1 tablet by mouth every twenty-four hours at bedtime oxybutynin XL (Ditropan-XL) 5 MG 24 hr tablet Indications: OAB (overactive bladder) Take 1 tablet (5 mg) by mouth at bedtime 30 tablet 3 05/15/2024 Active Start: 01-03-2024 Oxybutynin Chl oride Active 5 MG PO .5pm February 22, [...] daily. prednisoLONE acetate 10 mg/ml ophthalmic suspension (6 sources) Corticosteroid Start: 04-13-2024 prednisoLONE acetate (Pred-Forte) 1 % ophthalmic suspension Three times daily 04/13/2024 Active Start: 04-13-2024 take 1 drop(s) into the eye(s) three times daily Prednisolone Acetate (Pred Forte) 1 % drops,suspension Active 1 DROPS EYE-RIGHT Three times daily April 13, 2024 12:00am pregabalin 75 mg oral capsule (1 source) Start: 04-21-2024 take 1 capsule by mouth in the morning pregabalin (Lyrica) 75 MG capsule Indications: Seizure (CMS/HCC) Take 1 capsule (75 mg) by mouth in the morning and 1 capsule (75 mg) before bedtime. 60 capsule 2 04/21/2024 Active semaglutide (Ozempic) 4 MG/3ML solution pen-injector (1 source) Start: 04-22-2024 inject 1 mg by subcutaneous injection every week semaglutide (Ozempic) 4 MG/3ML solution pen-injector Indications: Type 2 diabetes mellitus with other specified complication, without long-term current use of insulin (CMS/HCC) Inject 1 mg under the skin 1 (one) time per week 3 mL 5 04/22/2024 Active simvastatin 20 mg oral tablet (20 sources) HMG-CoA Reductase Inhibitor Start: 05-15-2024 take 1 tablet by mouth at bedtime simvastatin (Zocor) 20 MG tablet Indications: Mixed hyperlipidemia (CMS/HCC) Take 1 tablet (20 mg) by mouth at bedtime 90 tablet 3 08/06/2024 Active Start: 02-16-2021 End: 02-21-2024 take 20 mg [...] bedtime. sodium chloride 30 mg/ml inhalation solution (16 sources) Start: 04-21-2024 sodium chloride 3 % nebulizer solution 04/21/2024 Active Start: 02-15-2024 sodium chlorid e (NEBUSAL) 3 % nebulizer solution Use 2 mL via nebulizer two times a day. 360 mL 3 02/15/2024 Active sodium chloride 3 % nebulizer solution INHALE CONTENTS OF 1 VIAL (2MLS) VIA NEBULIZATION 2 TIMES A DAY Active Comment on above: Use 2 mL via nebuliz er two times a day. Completed/Discontinued Medications Medication Drug Class(es) Dates Sig (Normalized) Sig (Original) calcium carbonate 1250 mg / cholecalciferol 125 unt oral tablet (13 sources) Vitamin D Start: 10-17-2021 End: 01-09-2023 take 1 tablet by mouth once daily Calcium Carbonate-Vitamin D3 Discontinued 1 TAB PO Daily October 17, 2021 1:00am January 09, 2023 11:55am cephalexin 500 mg oral capsule (13 sources) Cephalosporin Antibacterial Start: 10-25-2021 End: 12-26-2022 take 500 mg by mouth twice daily Cephalexin Discontinued 500 MG PO Twice daily 18 05October 25, 2021 1:00am December 26, 2022 3:00pm desmopressin acetate 0.2 mg oral tablet (7 sources) Vasopressin Analog, Factor VIII Activator Start: 02-21-2024 End: 04-13-2024 take 0.2 mg by mouth once daily at bedtime Desmopressin Discontinued 0.2 MG PO Daily at bedtime February 21, 2024 12:00am April 13, 2024 5:20pm diphenoxylate HCl/atropine (LOMOTIL ORAL) (7 sources) End: 12-28-2023 diphenoxylate HCl/atropine (LOMOTIL ORAL) Take by mouth. [...] December 26, 2022 2:02pm thymol/chlorophyllin (CHLOROPHYLL ORAL) (7 sources) End: 12-28-2023 thymol/chlorophyllin (CHLOROPHYLL ORAL) Take by mouth. 12/28/2023 Discontinued End: 12-28-2023 thymol/chlorophyllin (CHLORO PHYLL ORAL) Take by mouth. 0 12/28/2023 Discontinued thymol/chlorophy llin (CHLOROPHYLL ORAL) Take by mouth. 0 Active Comment on above: Take by mouth. tiZANidine 4 mg oral tablet (20 sources) Central alpha-2 Adrenergic Agonist Start: End: 4 take 1 tablet by mouth twice daily [...] explanation of examination or test findings] Onset: 4 Episodic Aspiration pneumonitis; food/vomitus (2 sources) Aspiration pneumonitis; Translations: [Pneumonitis due to inhalation of food and vomit] 12-28-2023 Episodic Asthma (1 source) Moderate asthma; Translations: [Unspecified asthma, uncomplicated] Onset: 3 08-20-2023 Chronic Cardiac dysrhythmias (4 sources) Sinus bradycardia; Translations: [Other specified cardiac dysrhythmias] Onset: 4 03-10-2024 Episodic Cataract (1 source) Bilateral age-related nuclear cataracts; Translations: [Age-related nuclear cataract, bilateral] Onset: 4 02-13-2024 Chronic Chronic obstructive pulmonary disease and bronchiectasis (12 sources) Bronchiectasis; Translations: [Bronchiectasis, uncomplicated] Onset: 4 12-28-2023 Chronic Chronic obstructive pulmonary disease and bronchiectasis (8 sources) Bronchitis, not specified as acute or chronic; Translations: [Bronchitis, not specified as acute or chronic] 02-13-2024 Episodic Coronary atherosclerosis and other heart disease (10 sources) Acute coronary syndrome; Translations: [Acute ischemic heart disease, unspecified] 04-13-2024 Chronic Delirium, dementia, and amnestic and other cognitive disorders (1 source) Dementia associated with another disease; Translations: [Dementia in other diseases classified elsewhere without behavioral disturbance] Onset: 3 08-20-2023 Chronic Diabetes mellitus with complications (3 sources) Disorder of nervous system due to type 2 diabetes mellitus; 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] Onset: 3 Chronic Diabetes mellitus without complication (4 sources) Type 2 diabetes mellitus; Translations: [Type 2 diabetes mellitus without complications] Onset: 4 03-10-2024 Chronic Disorders of lipid metabolism (15 sources) Mixed hyperlipidemia; Translations: [Mixed hyperlipidemia] Onset: 3 Chronic Epilepsy; convulsions (1 source) Epilepsy; Translations: [Localization-related (focal) (partial) symptomatic epilepsy and epileptic syndromes with complex partial seizures, intractable, without status epilepticus] 08-13-2024 Chronic Esophageal disorders (15 sources) Gastroesophageal reflux disease; Translations: [Gastro-esophageal reflux disease without esophagitis] Onset: 3 02-21-2024 Chronic Genitourinary symptoms and ill-defined conditions (1 source) Urinary incontinence; Translations: [Unspecified urinary incontinence] Onset: 3 08-20-2023 Chronic Menopausal disorders (1 source) Hormone replacement therapy; Translations: [HORMONE REPLACEMENT THERAPY] Onset: 3 Episodic Mycoses (3 sources) Onychomycosis due to dermatophyte ; Translations: [Tinea unguium] Episodic Osteoporosis (1 source) Osteoporosis; Translations: [Age-related osteoporosis without current pathological fracture] Onset: 3 08-20-2023 Chronic Other aftercare (1 source) Treatment changed; Translations: [Other nursing home (current) drug therapy] 03-10-2024 Episodic Other circulatory [...] Onset: 4 Chronic Other lower respiratory disease (1 source) Fibrosis of lung; Translations: [Pulmonary fibrosis, unspecified] Onset: 3 08-20-2023 Chronic Other lower respiratory disease (1 source) Nonspecific interstitial pneumonia; Translations: [Other specified interstitial pulmonary diseases] Onset: 4 02-25-2024 Chronic Other nervous system disorders (13 sources) [...] Onset: 4 Chronic Other upper respiratory disease (1 source) Vasomotor rhinitis; Translations: [Vasomotor rhinitis] Onset: 4 12-05-2023 Chronic Other upper respiratory disease (14 sources) Feeling of lump in throat; Translations: [Globus sensation] 02-21-2024 Episodic Pulmonary heart disease (2 sources) Pulmonary hypertension, unspecified; Translations: [Pulmonary hypertension, unspecified (Multi)] Onset: 4 Chronic Spondylosis; intervertebral disc disorders; other back problems (1 source) Disseminated idiopathic skeletal hyperostosis; Translations: [Ankylosing hyperostosis [[place]], site unspecified] Onset: 02-25-2024 Chronic Syncope (11 sources) Syncope; Translations: [Syncope and collapse] Onset: 4 04-13-2024 Episodic Thyroid disorders (3 sources) Hypothyroidism; Translations: [Hypothyroidism, unspecified] Onset: 3 Chronic Unclassified (1 source) Acute cough; Translations: [Acute cough] Onset: 4 Unclassified (1 source) Unspecified intracranial injury with loss of consciousness status unknown, sequela ([facility]); Translations: [Unspecified intracranial injury with loss of consciousness status unknown, sequela ([facility])] Onset: 4 Unclassified (1 source) Cough, unspecified; Translations: [Cough, unspecified] Onset: 4 Past or Other Problems Problem Classification Problem Date Documented Date Episodic/Chronic Epilepsy; convulsions (3 sources) Seizure; Translations: [Unspecified convulsions] Onset: 04-24-2024 04-22-2024 Episodic Genitourinary symptoms and ill-defined conditions (5 sources) Frequency of micturition; Translations: [Urgency of urination] Onset: 04-05-2022 Episodic Immunizations and screening for infectious disease (1 source) Needs influenza immunization; Translations: [Encounter for immunization] Onset: 08-23-2023 08-23-2023 Episodic Intracranial injury (8 sources) Traumatic brain injury with loss of consciousness; Translations: [Unspecified intracranial injury with loss of consciousness of unspecified duration, sequela] Onset: 03-10-2024 12-28-2023 Episodic Mood disorders (1 source) Mood disorders Onset: 02-22-2024 02-22-2024 Other aftercare (3 sources) Other nursing home (current) drug therapy; Translations: [[facility] CUR[facility]ERAPY] Onset: 02-12-2023 Episodic Other circulatory disease (2 sources) Other specified symptoms and signs involving the circulatory and respiratory systems; Translations: [Other specified symptoms and signs involving the circulatory and respiratory systems] Onset: 03-10-2024 Episodic Other circulatory disease (1 source) Pulmonary congestion ; Translations: [Other specified symptoms and signs involving the circulatory and respiratory systems] Onset: 12-05-2023 12-05-2023 Episodic Other lower respiratory disease (20 sources) Cough; Translations: [Cough] Onset: 06-29-2020 06-29-2020 Episodic Other lower respiratory disease (6 sources) Dyspnea; Translations: [Shortness of breath] Onset: 02-25-2024 12-25-2023 Episodic Other lower respiratory disease (2 sources) Shortness of breath; Translations: [Shortness of breath] Onset: 12-25-2023 Episodic Other lower respiratory disease (1 source) Chronic cough; Translations: [Chronic cough] Onset: 12-05-2023 12-05-2023 Episodic Other nervous system disorders (3 sources) [...] with loss of consciousness status unknown, sequela ([facility]); Translations: [Unspecified intracranial injury with loss of consciousness status unknown, sequela ([facility])] Onset: 03-10-2024 Unclassified (1 source) Cough, unspecified; Translations: [Cough, unspecified] Onset: 03-10-2024 Results Test Name Value Interpretation Reference Range Facility ALL CBC WITH AUTO DIFFon BASOPHILS ABSOLUTE AUTO 0.1 [facility] Basophils/100 WBC (Bld) 0.8 % 0.2 - 2.0 % [facility] Eosinophils/100 WBC (Bld) 4.2 % 0.9 - 7.0 % [facility] Erythrocyte distribution width (RBC) [Ratio] 12.5 % 11.0 - 15.0 % [facility] Hematocrit (Bld) [Volume fraction] 40.9 % 36.0 - 48.0 % [facility] Hemoglobin (Bld) [Mass/Vol] 13.0 g/dL 12.0 - 16.0 g/dL [facility] IMMATURE GRANULOCYTES ABS AUTO 0.01 [facility] Immature granulocytes/100 WBC (Bld) 0.1 % 0.0 - 0.5 % [facility] LYMPHOCYTES ABSOLUTE AUTO 2.3 [facility] Lymphocytes/100 WBC (Bld) 32.7 % 20.5 - 60.0 % [facility] MCH (RBC) [Entitic mass] 29.5 pg 26.7 - 34.0 pg [facility] MCHC (RBC) [Mass/Vol] 31.8 g/dL 29.9 - 35.2 g/dL [facility] MCV (RBC) [Entitic vol] 92.7 fL 81.0 - 99.0 fL [facility] MONOCYTES ABSOLUTE AUTO 0.4 [facility] Monocytes/100 WBC (Bld) 5.5 % 1.7 - 12.0 % [facility] NEUTROPHILS ABSOLUTE AUTO 4.0 [facility] Neutrophils/100 WBC (Bld) 56.7 % 43.0 - 75.0 % [facility] Platelet mean volume (Bld) [Entitic vol] 10.2 fL 9.5 - 13.5 fL [facility] TBH EO # 0.3 [facility] TB PLT 262 [facility] RBC 4.41 [facility] WBC 7.1 [facility] CLINISYNC [facility] CNPNon 07-30-2024 CNP Telephone (NEURAV) -- JUHIKARUNA Wylie ([id number]) 1945 F Date Time Provider Department 07/30/24 LISA WILLIAM During your visit today, we recorded the following information about you: Yanick Douglass 07/30/2024 1:42 PM Signed Nadira is calling Lisa William MD, PhD today to request the order for the EEG to be mailed to the home address. They need to get this done at a location closer to home. Patient has been identified by name and birthdate. Duration of symptoms: N/A Person calling: daughter: Nadira Call patient at: on cell [phone] (home) [phone] (cell) Was an appointment scheduled: No Closing statement: Results or non-symptom based questions: Thank you for calling [facility], your call will be returned within the next business day. Yanick Douglass Yaa Russell 07/30/2024 2:05 PM Signed Patient called back today, and indicated that she's going to have this done at [facility] and they need the order to specifically state how long you want them to do the test for, so please include a time frame on the order. Then fax over to [facility] at: [phone] Sowmya Gresham RN 07/30/2024 2:54 PM Signed 04/22/[address] Juarez ======= routed to REJI 1 to see if long EEG order can be placed or will visit with Dr. William need to be completed first. TEAGAN Landa Alena, PA-C 07/30/2024 3:00 PM Signed EEG long can be done first. Order placed. MelviCODY Recinos Kimberly L, RN 07/31/2024 1:49 PM Addendum Spoke with Karuna States that [facility] needs the order to specify what [...] 2:18 PM Addendum EEG order faxed to [facility] via [employer] request to fax report to [phone] send EEG tracings to [facility] Sowmya Gresham RN Allergies As of Date: [...] convulsion type (HCC) [R56.9] Order(s):EPIL EEG LONG [[id number]] Order #: [id number]: 1 FUTURE Prescriptions as of 08/01/2024 - [...] Encounter Status:Closed by SOWMYA GRESHAM on 08/01/24 [facility] Juany 06-05-2024 [facility]UL[facility] -- KARUNA REYNGAA ([id number]) 1945 F Date Time Provider Department 06/05/24 UBALDO DUBOSE During your visit today, we recorded the following information about you: John Madison 06/05/2024 4:52 PM Signed Fax received on 06/05/2024 from [employer], regarding CMN. Fax placed on provider desk for review/signature. Unsigned copy scanned into patient chart. John Madison 06/06/2024 7:47 AM Signed Admin faxed over certificate of medical necessity to [employer], signed by Dr. Ubaldo Dubose MD. Admin [...] Encounter Status:Closed by JOHN MADISON on 06/05/24 [facility] Consults (NEUSES) -- KARUNA REYNAGA ([id number]) 1945 F Date Time Provider Department 04/22/24 FLEX JUAREZ During your visit today, we recorded the following information about you: Charito Crow APRN.MANUFACTURING TECHNOLOGIST 04/22/2024 10:10 AM Signed [facility] Review of Records Patient: Karuna Reynaga Address: [address] [place] [address] Impression: Review of records for Karuna Reynaga, [...] ASMs PRIOR EVALUATIONS: CT Brain WO 04/15/2024 ([facility]) IMPRESSION: ATROPHY AND CHRONIC ISCHEMIC CHANGES. NO ACUTE INTRACRANIAL FINDINGS EEG Routine 04/15/2024 ([facility]) Routine EEG showed bifrontal slowing but no epileptiform discharges or seizures MRI Brain 04/15/2024 ([facility]) MRI brain April 15, 2024 without contrast shows bilateral frontal lobe encephalomalacia, some other generalized atrophy, no acute intracranial findings REJI Recommendations: - EEG long - Visit with epileptologist - Additional testing to be considered by epilepsy clinicians Signed: Charito Crow APRN.MANUFACTURING TECHNOLOGIST April 22, [address] Juarez for review and recommendations. Recommendations (as discussed with Dr. Juarez): - [...] Assessed Primary Visit Diagnosis:Convulsions, unspecified convulsion type (HCC) [R56.9] Order(s):EPIL EEG LONG [[id number]] Order #: [id number]: 1 FUTURE Prescriptions as of 04/22/2024 - [...] Status:Closed by CHARITO CROW on 04/22/[address] [facility] Thyrotropin [Units/volume] i n Serum or PlasmaOrdered By: Valdez Castro on 04-22-2024 TSH Qn 1.42 m[IU]/L Normal 0.45-5.33 [facility] Comment on above: Result Comment: PERF ORMED BY: [address] [place] [address] PATHOLOGIST BOILERMAKER HELPER EDMOND NORTH M.D. Performed By: #### T 4F, T3F, TSH3 #### [facility] [address] [place] [address] Thyroxine (T4) free [Mass/vo lume] in Serum or PlasmaOrdered By: Valdez Castro on 04-22-2024 Free T4 [Mass/Vol] 0.64 ng/dL Normal 0.61-1.12 [facility] Comment on above: Performed By: #### T 4F, T3F, TSH3 #### [facility] [address] [place] [address] Triiodothyronine (T3) Freeon 04-22-2024 Triiodothyronine (T3) Free 2.84 pg/mL Normal 2.50-3.90 [facility] Comment on above: Result Comment: PERF ORMED BY: [facility] [address] [facility] [place] [address] PATHOLOGIST BOILERMAKER HELPER EDMOND NORTH M.D. Performed By: #### T 4F, T3F, TSH3 #### [facility] [address] Triiodothyronine (T3) Free [ Mass/volume] in Serum or PlasmaOrdered By: Valdez Castro on 04-22-2024 Free T3 [Mass/Vol] 2.84 pg/mL 2.50-3.90 [facility] CNPNon 04-21-2024 BEAT[facility]ZN Telephone (NE50MN) -- KARUNA REYNAGA ([id number]) 1945 F Date Time Provider Department 04/21/24 FLEX JUAREZ NE50MN During your visit today, we recorded the following information about you: Gwen De Souza 04/21/2024 4:18 PM Signed [facility] Initial Intake Interview April 21, 2024 4:05 PM Caller: Nadira Relationship to pt: Daughter Patient name: Karuna Reynaga Age: [age] year old Address: [address] [place] [phone] (home) Insurance: Payor: [facility] MEDICARE / Plan: [facility] MEDICARE ADVANTAGE PPO / Product Type: PPO / Referred by: Self (word of mouth) Referring to: Any Reason for Evaluation: further evaluation and treatment Previously evaluated at: [place], [place] Tel: N/A Fax: N/A Age AND [...] or No Date Facility EEG Yes 04/2024 [place], [place]) Video EEG No MRI brain Yes 04/2024 [place], [place]) CT brain Yes 04/2024 [place], [place]) fMRI brain No PET No Ictal [...] has imaging been requested? No Signed: Gwen FarleyMeadeGwen Morrow 04/21/2024 4:20 PM Signed [facility] imaging/records received: April 21, 2024 -OFFICE NOTES -EEG -MRI BRAIN -CT BRAIN -CARE EVERYWHERE ([place], [place]) Gwen De Souza April 21, 2024 [...] by GWEN DE SOUZA on 04/21/[address] [facility] Automated basophil %Ordered By: Albert Palacio on 04-16-2024 Basophils/100 WBC (Bld) 0.8 % Normal . [facility] Comment on above: Order Comment: DRAW AT 0730 PER RN MATTHEW. SMB 0450. RN MATTHEW IS AWARE Performed By: #### C BC, BMP #### [facility] [address] Automated basophil countOrde red By: Albert Palacio on 04-16-2024 Basophils (Bld) [#/Vol] 0.1 10*3/uL Normal 0.0-0.2 [facility] Comment on above: Order Comment: DRAW AT 0730 PER RN MATTHEW. SMB 0450. RN MATTHEW IS AWARE Result Comment: PERF ORMED BY: [place] [address] PATHOLOGIST BOILERMAKER HELPER EDMOND NORTH M.D. Performed By: #### C BC, BMP #### [address] Automated blood monocyte cou ntOrdered By: Albert Palacio on 04-16-2024 Monocytes (Bld) [#/Vol] 0.5 10*3/uL Normal 0.0-0.8 [facility] Comment on above: Order Comment: DRAW AT 0730 PER RN MATTHEW. SMB 0450. RN MATTHEW IS AWARE Performed By: #### C BC, BMP #### [address] Automated eosinophil %Ordere d By: Albert Palacio on 04-16-2024 Eosinophils/100 WBC (Bld) 3.6 % Normal . [facility] Comment on above: Order Comment: DRAW AT 0730 PER RN MATTHEW. SMB 0450. RN MATTHEW IS AWARE Performed By: #### C BC, BMP #### [address] Automated eosinophil countOr dered By: Albert Palacio on 04-16-2024 Eosinophils (Bld) [#/Vol] 0.3 10*3/uL Normal 0.0-0.45 [facility] Comment on above: Order Comment: DRAW AT 0730 PER RN MATTHEW. SMB 0450. RN MATTHEW IS AWARE Performed By: #### C BC, BMP #### [address] Automated monocyte %Ordered By: Albert Palacio on 04-16-2024 Monocytes/100 WBC (Bld) 6.4 % Normal . [facility] Comment on above: Order Comment: DRAW AT 0730 PER RN MATTHEW. SMB 0450. RN MATTHEW IS AWARE Performed By: #### C BC, BMP #### [address] Automated neutrophil %Ordere d By: Albert Palacio on 04-16-2024 Neutrophils/100 WBC (Bld) 66.9 % Normal . [facility] Comment on above: Order Comment: DRAW AT 0730 PER RN MATTHEW. SMB 0450. RN MATTHEW IS AWARE Performed By: #### C BC, BMP #### [address] Basic Metabolic Panelon 04-05 Creatinine Clr Calc Pharmacy 40.49 Normal [facility] Comment on above: Order Comment: DRAW AT 0730 PER RN MATTHEW. SMB 0450. RN MATTHEW IS AWARE Result Comment: PERF ORMED BY: [place] [address] PATHOLOGIST BOILERMAKER HELPER EDMOND NORTH M.D. Performed By: #### C BC, BMP #### [address] GFR/1.73 sq M.predicted MDRD (S/P/Bld) [Vol rate/Area] mL/min/{1.73_m2} Normal [facility] Comment on above: Order Comment: DRAW AT 0730 PER RN MATTHEW. SMB 0450. RN MATTHEW IS AWARE Performed By: #### C BC, BMP #### [facility] [address] Calcium [Mass/volume] in Ser um or PlasmaOrdered By: Albert Palacio on 04-16-2024 Calcium [Mass/Vol] 9.6 mg/dL Normal 8.6-10.3 [facility] Comment on above: Order Comment: DRAW AT 0730 PER RN MATTHEW. SMB 0450. RN MATTHEW IS AWARE Performed By: #### C BC, BMP #### [address] Carbon dioxide, total [Moles /volume] in Serum or PlasmaOrdered By: Albert Palacio on 04-16-2024 CO2 [Moles/Vol] 24.4 mmol/L Normal 21.0-31.0 [facility] Comment on above: Order Comment: DRAW AT 0730 PER RN MATTHEW. SMB 0450. RN MATTHEW IS AWARE Performed By: #### C BC, BMP #### [address] Chloride [Moles/volume] in S sun or PlasmaOrdered By: Albert Palacio on 04-16-2024 Chloride [Moles/Vol] 105 mmol/L Normal 98-107 [facility] Comment on above: Order Comment: DRAW AT 0730 PER RN MATTHEW. SMB 0450. RN MATTHEW IS AWARE Performed By: #### C BC, BMP #### [address] Complete Blood Count Auto Di ffon 04-16-2024 Mean Corpuscular HGB Conc 32.7 g/dL Normal 32.0-35.0 [facility] Comment on above: Order Comment: DRAW AT 0730 PER RN MATTHEW. SMB 0450. RN MATTHEW IS AWARE Performed By: #### C BC, BMP #### [facility] [address] [place] [address] NRBC% 0.0 /100{WBC} Normal 0-0.5 [facility] Comment on above: Order Comment: DRAW AT 0730 PER RN MATTHEW. SMB 0450. RN MATTHEW IS AWARE Performed By: #### C BC, BMP #### [facility] [address] Creatinine [Mass/volume] in Serum or PlasmaOrdered By: Albert Palacio on 04-16-2024 Creatinine [Mass/Vol] 0.96 mg/dL Normal 0.60-1.20 [facility] Comment on above: Order Comment: DRAW AT 0730 PER RN MATTHEW. SMB 0450. RN MATTHEW IS AWARE Performed By: #### C BC, BMP #### [facility] [address] Erythrocyte distribution wid th [Ratio] by Automated countOrdered By: Albert Palacio on 04-16-2024 Erythrocyte distribution width (RBC) [Ratio] 13.0 % Normal 11.9-15.3 [facility] Comment on above: Order Comment: DRAW AT 0730 PER RN MATTHEW. SMB 0450. RN MATTHEW IS AWARE Performed By: #### C PENNY, BMP #### [address] Erythrocytes [#/volume] in B lood by Automated countOrdered By: Albert Palacio on 04-16-2024 RBC (Bld) [#/Vol] 4.70 10*6/uL Normal 3.60-5.00 [facility] Comment on above: Order Comment: DRAW AT 0730 PER RN MATTHEW. SMB 0450. RN MATTHEW IS AWARE Performed By: #### C PENNY, BMP #### [facility] [address] Glucose [Mass/volume] in Ser um or PlasmaOrdered By: Albert Palacio on 04-16-2024 Glucose [Mass/Vol] 112 mg/dL High 70-100 [facility] Comment on above: ADA recommended refe rence rangeRandom Glucose Reference Range is dependent on time and content of last meal. Glucose of more than 200 mg/dL in a nonstressed, ambulatory subject supports the diagnosis of Diabetes Mellitus. Order Comment: DRAW AT 0730 PER RN MATTHEW. SMB 0450. RN MATTHEW IS AWARE Result Comment: [place] om Glucose Reference Range is dependent on time and content of last meal. Glucose of more than 200 mg/dL in a nonstressed, ambulatory subject supports the diagnosis of Diabetes Mellitus. ADA recommended reference range Performed By: #### C BC, BMP #### [address] Hematocrit [Volume Fraction] of Blood by Automated countOrdered By: Albert Palacio on 04-16-2024 Hematocrit (Bld) [Volume fraction] 42.1 % Normal 34.0-46.4 [facility] Comment on above: Order Comment: DRAW AT 0730 PER RN MATTHEW. SMB 0450. RN MATTHEW IS AWARE Performed By: #### C PENNY, BMP #### [place] [address] [place] Hemoglobin [Mass/volume] in BloodOrdered By: Albert Palacio on 04-16-2024 Hemoglobin (Bld) [Mass/Vol] 13.7 g/dL Normal 11.8-15.4 [facility] Comment on above: Order Comment: DRAW AT 0730 PER RN MATTHEW. SMB 0450. RN MATTHEW IS AWARE Performed By: #### C PENNY, BMP #### [address] Leukocytes [#/volume] correc rob for nucleated erythrocytes in Blood by Automated counOrdered By: Albert Palacio on 04-16-2024 WBC corrected for nucl RBC Auto (Bld) [#/Vol] 7.5 10*3/uL 3.8-11.6 [facility] Leukocytes [#/volume] in Blo od by Automated countOrdered By: Albert Palacio on 04-16-2024 WBC (Bld) [#/Vol] 7.5 10*3/uL Normal 3.8-11.6 [facility] Comment on above: Order Comment: DRAW AT 0730 PER RN MATTHEW. SMB 0450. RN MATTHEW IS AWARE Performed By: #### C BC, BMP #### [place] [address] [place] Lymphocytes [#/volume] in Bl ood by Automated countOrdered By: Albert Palacio on 04-16-2024 Lymphocytes (Bld) [#/Vol] 1.7 10*3/uL Normal 1.00-4.8 [facility] Comment on above: Order Comment: DRAW AT 0730 PER RN MATTHEW. SMB 0450. RN MATTHEW IS AWARE Performed By: #### C BC, BMP #### [facility] [address] Lymphocytes/100 leukocytes i n Blood by Automated countOrdered By: Albert Palacio on 04-16-2024 Lymphocytes/100 WBC (Bld) 22.3 % Normal . [facility] Comment on above: Order Comment: DRAW AT 0730 PER RN MATTHEW. SMB 0450. RN MATTHEW IS AWARE Performed By: #### C BC, BMP #### [address] MCH [Entitic mass] by Automa rob countOrdered By: Albert Palacio on 04-16-2024 MCH (RBC) [Entitic mass] 29.2 pg Normal 24.7-34.3 [facility] Comment on above: Order Comment: DRAW AT 0730 PER RN MATTHEW. SMB 0450. RN MATTHEW IS AWARE Performed By: #### C BC, BMP #### [address] MCHC Auto (RBC) [Mass/Vol]Or dered By: Albert Palacio on 04-16-2024 MCHC (RBC) [Mass/Vol] 32.7 g/dL 32.0-35.0 [facility] MCV [Entitic volume] by Auto mated countOrdered By: Albert Palacio on 04-16-2024 MCV (RBC) [Entitic vol] 89.5 fL Normal 80-100 [facility] Comment on above: Order Comment: DRAW AT 0730 PER RN MATTHEW. SMB 0450. RN MATTHEW IS AWARE Performed By: #### C BC, BMP #### [place] [address] [place] NM chaitanya perf SPECT rest stron 04-16-2024 NM chaitanya perf SPECT rest str [facility] [place] [address] Nuclear Medicine Report Signed Patient: Karuna Reynaga MR#: [id number] : 1945 Acct:[id number] Age/Sex: 79 / F ADM Date: 04/13/24 Loc: Room: [address] [place] [address] Type: ADM IN Attending Dr: Renan Murguia MD Copies to: MD Inocencio Lanier MD W Scott Sheldon, DO Ordering Provider: Vic Hess DO Date of Service: 04/16/24 NM/NM chaitanya perf SPECT rest str: chest pain *DOSE ORDERED* NUCLEAR MYOCARDIAL PERFUSION DATE OF PROCEDURE: 04/16/2024 ATTENDING PLATE FILLER: Dr. Inocencio Mg REQUESTING PHYSICIAN: Dr. Hess [...] Inocencio Mg M.D.04/16/2024 4:10 PM Dictation Location: [place] [address] Transcribed By: [facility] 04/16/24 1610 Dictated By: Inocencio Mg MD 04/16/24 1609 Signed By: 04/16/24 1610 Normal [facility] Neutrophils [#/volume] in Bl ood by Automated countOrdered By: Albert Palacio on 04-16-2024 Neutrophils (Bld) [#/Vol] 5.0 10*3/uL Normal 1.8-7.7 [facility] Comment on above: Order Comment: DRAW AT 0730 PER RN MATTHEW. SMB 0450. RN MATTHEW IS AWARE Performed By: #### C PENNY, BMP #### [address] No Panel InformationOrdered By: Albert Palacio on 04-16-2024 Estimated GFR (CKD-EPI) > 60.0 mL/Min [facility]acy Creatinine Clearance (Chem 40.49 [facility] Nucleated erythrocytes [Pres ence] in Blood by Automated countOrdered By: Albert Palacio on 04-16-2024 Nucleated RBC Auto Ql (Bld) 0.0 /100{WBC} 0-0.5 [facility] Platelet mean volume [Entiti c volume] in Blood by Automated countOrdered By: Albert Palacio on 04-16-2024 Platelet mean volume (Bld) [Entitic vol] 8.0 fL Normal 6.3-10.7 [facility] Comment on above: Order Comment: DRAW AT 0730 PER RN MATTHEW. SMB 0450. RN MATTHEW IS AWARE Performed By: #### C PENNY, BMP #### [address] Platelets [#/volume] in Bloo d by Automated countOrdered By: Albert Palacio on 04-16-2024 Platelets (Bld) [#/Vol] 222 10*3/uL Normal 150-450 [facility] Comment on above: Order Comment: DRAW AT 0730 PER RN MATTHEW. SMB 0450. RN MATTHEW IS AWARE Performed By: #### C PENNY, BMP #### [address] Potassium [Moles/volume] in Serum or PlasmaOrdered By: Albert Palacio on 04-16-2024 Potassium [Moles/Vol] 4.9 mmol/L Normal 3.5-5.1 [facility] Comment on above: Order Comment: DRAW AT 0730 PER RN MATTHEW. SMB 0450. RN MATTHEW IS AWARE Performed By: #### C PENNY, BMP #### [address] Serum or plasma anion gap de terminationOrdered By: Albert Palacio on 04-16-2024 Anion gap [Moles/Vol] 13.5 mmol/L Normal 6.0-15.0 [facility] Comment on above: Order Comment: DRAW AT 0730 PER RN MATTHEW. SMB 0450. RN MATTHEW IS AWARE Performed By: #### C BC, BMP #### [facility] [address] [place] [address] [place] Sodium [Moles/volume] in Ser um or PlasmaOrdered By: Albert Palacio on 04-16-2024 Sodium [Moles/Vol] 138 mmol/L Normal 136-145 [facility] Comment on above: Order Comment: DRAW AT 0730 PER RN MATTHEW. SMB 0450. RN MATTHEW IS AWARE Performed By: #### C BC, BMP #### [address] Urea nitrogen [Mass/volume] in Serum or PlasmaOrdered By: Albert Palacio on 04-16-2024 Urea nitrogen [Mass/Vol] 31 mg/dL High 7-25 [facility] Comment on above: Order Comment: DRAW AT 0730 PER RN MATTHEW. SMB 0450. RN MATTHEW IS AWARE Performed By: #### C BC, BMP #### [address] Basic Metabolic Panelon 06 Anion gap [Moles/Vol] 9.9 mmol/L Normal 6.0-15.0 [facility] Comment on above: Performed By: #### B MP, CBC #### [place] [address] [place] Calcium [Mass/Vol] 8.6 mg/dL Normal 8.6-10.3 [facility] Comment on above: Performed By: #### B MP, CBC #### [place] [address] [place] Chloride [Moles/Vol] 107 mmol/L Normal 98-107 [facility] Comment on above: Performed By: #### B MP, CBC #### [address] [place] [address] [place] CO2 [Moles/Vol] 26.4 mmol/L Normal 21.0-31.0 [facility] Comment on above: Performed By: #### B MP, CBC #### [address] Creatinine [Mass/Vol] 0.81 mg/dL Normal 0.60-1.20 [facility] Comment on above: Performed By: #### B MP, CBC #### [address] Creatinine Clr Calc Pharmacy 47.30 Normal [facility] Comment on above: Result Comment: PERF ORMED BY: [place] [address] PATHOLOGIST BOILERMAKER HELPER EDMOND NORTH M.D. Performed By: #### B MP, CBC #### [address] GFR/1.73 sq M.predicted MDRD (S/P/Bld) [Vol rate/Area] mL/min/{1.73_m2} Normal [facility] Comment on above: Performed By: #### B MP, CBC #### [address] Glucose [Mass/Vol] 91 mg/dL Normal 70-100 [facility] Comment on above: Result Comment: [place] Glucose Reference Range is dependent on time and content of last meal. Glucose of more than 200 mg/dL in a nonstressed, ambulatory subject supports the diagnosis of Diabetes Mellitus. ADA recommended reference range Performed By: #### B MP, CBC #### [address] Potassium [Moles/Vol] 4.3 mmol/L Normal 3.5-5.1 [facility] Comment on above: Performed By: #### B MP, CBC #### [address] Sodium [Moles/Vol] 139 mmol/L Normal 136-145 [facility] Comment on above: Performed By: #### B MP, CBC #### [address] Urea nitrogen [Mass/Vol] 27 mg/dL High 7-25 [facility] Comment on above: Performed By: #### B MP, CBC #### [address] Complete Blood Count Auto Di ffon 04-15-2024 Basophils (Bld) [#/Vol] 0.0 10*3/uL Normal 0.0-0.2 [facility] Comment on above: Result Comment: PERF ORMED BY: [place] [address] PATHOLOGIST BOILERMAKER HELPER EDMOND NORTH M.D. Performed By: #### B MP, CBC #### [address] Basophils/100 WBC (Bld) 0.8 % Normal . [facility] Comment on above: Performed By: #### B MP, CBC #### [address] Eosinophils (Bld) [#/Vol] 0.4 10*3/uL Normal 0.0-0.45 [facility] Comment on above: Performed By: #### B MP, CBC #### [address] Eosinophils/100 WBC (Bld) 6.8 % Normal . [facility] Comment on above: Performed By: #### B MP, CBC #### [address] Erythrocyte distribution width (RBC) [Ratio] 13.1 % Normal 11.9-15.3 [facility] Comment on above: Performed By: #### B MP, CBC #### [address] Hematocrit (Bld) [Volume fraction] 38.1 % Normal 34.0-46.4 [facility] Comment on above: Performed By: #### B MP, CBC #### [address] Hemoglobin (Bld) [Mass/Vol] 12.5 g/dL Normal 11.8-15.4 [facility] Comment on above: Performed By: #### B MP, CBC #### [address] Lymphocytes (Bld) [#/Vol] 2.0 10*3/uL Normal 1.00-4.8 [facility] Comment on above: Performed By: #### B MP, CBC #### [address] Lymphocytes/100 WBC (Bld) 36.1 % Normal . [facility] Comment on above: Performed By: #### B MP, CBC #### [address] MCH (RBC) [Entitic mass] 29.3 pg Normal 24.7-34.3 [facility] Comment on above: Performed By: #### B MP, CBC #### [address] MCV (RBC) [Entitic vol] 89.5 fL Normal 80-100 [facility] Comment on above: Performed By: #### B MP, CBC #### [address] Mean Corpuscular HGB Conc 32.8 g/dL Normal 32.0-35.0 [facility] Comment on above: Performed By: #### B MP, CBC #### [address] Monocytes (Bld) [#/Vol] 0.6 10*3/uL Normal 0.0-0.8 [facility] Comment on above: Performed By: #### B MP, CBC #### [address] Monocytes/100 WBC (Bld) 9.8 % Normal . [facility] Comment on above: Performed By: #### B MP, CBC #### [address] Neutrophils (Bld) [#/Vol] 2.6 10*3/uL Normal 1.8-7.7 [facility] Comment on above: Performed By: #### B MP, CBC #### [address] Neutrophils/100 WBC (Bld) 46.5 % Normal . [facility] Comment on above: Performed By: #### B MP, CBC #### [address] NRBC% 0.2 /100{WBC} Normal 0-0.5 [facility] Comment on above: Performed By: #### B MP, CBC #### [address] Platelet mean volume (Bld) [Entitic vol] 8.0 fL Normal 6.3-10.7 [facility] Comment on above: Performed By: #### B MP, CBC #### [address] Platelets (Bld) [#/Vol] 193 10*3/uL Normal 150-450 [facility] Comment on above: Performed By: #### B MP, CBC #### [address] RBC (Bld) [#/Vol] 4.25 10*6/uL Normal 3.60-5.00 [facility] Comment on above: Performed By: #### B MP, CBC #### [address] WBC (Bld) [#/Vol] 5.6 10*3/uL Normal 3.8-11.6 [facility] Comment on above: Performed By: #### B MP, CBC #### [address] MR head/brain wo sheila 04-15 MR head/brain wo [facility] [place] [address] MRI Report Signed Patient: Karuna Reynaga MR#: [id number] 289 : 1945 Acct:[id number] Age/Sex: 79 / F ADM Date: 04/13/24 Loc: Room: [address] [place] [address] Type: ADM IN Attending Dr: Renan Murguia [...] Elizabeth Hoskins M.D.04/15/2024 8:11 PM Dictation Location: [place] [address] Transcribed By: [facility] 04/15/242010 Dictated By: Elizabeth Hoskins MD 04/15/242006 Signed By: 04/15/242010 Normal [facility] Activated partial thrombopla stin time (aPTT) in platelet poor plasma by coagulation aOrdered By: Albert Palacio on 04-14-2024 aPTT Coag (PPP) [Time] 77.1 s High 25.1-36.5 [facility] Comment on above: A hematocrit value g reater than 55% may lead to inaccurate results in coagulation testing. Patients having hematocrit values >55% require a special collection tube for coagulation studies. Please contact the laboratory at [phone] for redraw instructions. Basic Metabolic Panelon 04-05 Anion gap [Moles/Vol] 10.1 mmol/L Normal 6.0-15.0 Th e [facility] Comment on above: Performed By: #### T 4F, TSH, T3F #### [address] Calcium [Mass/Vol] 8.8 mg/dL Normal 8.6-10.3 [facility] Comment on above: Performed By: #### T 4F, TSH, T3F #### [address] Chloride [Moles/Vol] 108 mmol/L High 98-107 [facility] Comment on above: Performed By: #### T 4F, TSH, T3F #### [address] CO2 [Moles/Vol] 25.6 mmol/L Normal 21.0-31.0 [facility] Comment on above: Performed By: #### T 4F, TSH, T3F #### [address] Creatinine [Mass/Vol] 0.70 mg/dL Normal 0.60-1.20 [facility] Comment on above: Performed By: #### T , , T3F #### [address] Creatinine Clr Calc Pharmacy 48.69 Normal [facility] Comment on above: Performed By: #### T 4F, TSH, T3F #### [address] GFR/1.73 sq M.predicted MDRD (S/P/Bld) [Vol rate/Area] mL/min/{1.73_m2} Normal [facility] Comment on above: Performed By: #### T 4F, TSH, T3F #### [address] Glucose [Mass/Vol] 102 mg/dL High 70-100 [facility] Comment on above: Result Comment: [place] Glucose Reference Range is dependent on time and content of last meal. Glucose of more than 200 mg/dL in a nonstressed, ambulatory subject supports the diagnosis of Diabetes Mellitus. ADA recommended reference range Performed By: #### T 4F, TSH3, T3F #### [facility] [address] Potassium [Moles/Vol] 3.7 mmol/L Normal 3.5-5.1 [facility] Comment on above: Performed By: #### T 4F, TSH3, T3F #### [facility] [address] Sodium [Moles/Vol] 140 mmol/L Normal 136-145 [facility] Comment on above: Performed By: #### T 4F, TSH3, T3F #### [facility] [address] Urea nitrogen [Mass/Vol] 20 mg/dL Normal 7-25 [facility] Comment on above: Performed By: #### T 4F, TSH3, T3F #### [facility] [address] Bilirubin Test strip Ql (U)O rdered By: Ashley Dickerson on 04-14-2024 Bilirubin Ql (U) Negative Negative [facility] Cholesterol [Mass/volume] in Serum or PlasmaOrdered By: Albert Palacio on 04-14-2024 Cholesterol [Mass/Vol] 154 mg/dL Normal 140-200 [facility] Comment on above: Chol less than 200 m g/dl low riskChol 201-239 mg/dl borderline riskChol 240 mg/dl and greater high risk Result Comment: Chol less than 200 mg/dl low risk Chol 201-239 mg/dl borderline risk Chol 240 mg/dl and greater high risk Performed By: #### T 4F, TSH3, T3F #### [facility] [address] Cholesterol in LDL Calc [Mas s/Vol]Ordered By: Albert Palacio on 04-14-2024 Cholesterol in LDL [Mass/Vol] 82 mg/dL 0-100 [facility] Comment on above: LDL ATP III CLASSIFI CATIONLDL less than 100 mg/dL OptimalLDL 100-129 mg/dL Near or above optimalLDL 130-159 mg/dL Borderline highLDL 160-189 mg/dL HighLDL greater than 189 mg/dL Very high Cholesterol in VLDL Calc [Ma ss/Vol]Ordered By: Albert Palacio on 04-14-2024 Cholesterol in VLDL [Mass/Vol] 12 mg/dL [facility] Color of Urine by AutoOrdere d By: Ashley Dickerson on 04-14-2024 Color (U) Colorless Normal Yellow [facility] Comment on above: Order Comment: Name Collection Type:: Clean-Voided Midstream Performed By: #### T 4F, TSH3, T3F #### [facility] [address] Complete Blood Count Auto Di ffon 04-14-2024 Basophils (Bld) [#/Vol] 0.0 10*3/uL Normal 0.0-0.2 [facility] Comment on above: Result Comment: PERF ORMED BY: [place] [address] PATHOLOGIST [employer] HEL[employer] EDMOND NORTH M.D. Performed By: #### T 4F, TSH3, T3F #### [address] Basophils/100 WBC (Bld) 0.7 % Normal . [facility] Comment on above: Performed By: #### T 4F, TSH3, T3F #### [address] Eosinophils (Bld) [#/Vol] 0.4 10*3/uL Normal 0.0-0.45 [facility] Comment on above: Performed By: #### T 4F, TSH3, T3F #### [place] [address] [place] Eosinophils/100 WBC (Bld) 5.2 % Normal . [facility] Comment on above: Performed By: #### T 4F, TSH3, T3F #### [address] Erythrocyte distribution width (RBC) [Ratio] 12.8 % Normal 11.9-15.3 [facility] Comment on above: Performed By: #### T 4F, TSH3, T3F #### [address] Hematocrit (Bld) [Volume fraction] 37.4 % Normal 34.0-46.4 [facility] Comment on above: Performed By: #### T 4F, TSH3, T3F #### [address] Hemoglobin (Bld) [Mass/Vol] 12.4 g/dL Normal 11.8-15.4 [facility] Comment on above: Performed By: #### T 4F, TSH3, T3F #### [address] Lymphocytes (Bld) [#/Vol] 2.3 10*3/uL Normal 1.00-4.8 [facility] Comment on above: Performed By: #### T 4F, TSH3, T3F #### [address] Lymphocytes/100 WBC (Bld) 32.0 % Normal . [facility] Comment on above: Performed By: #### T 4F, TSH3, T3F #### [address] MCH (RBC) [Entitic mass] 29.4 pg Normal 24.7-34.3 [facility] Comment on above: Performed By: #### T 4F, TSH3, T3F #### [address] MCV (RBC) [Entitic vol] 88.8 fL Normal 80-100 [facility] Comment on above: Performed By: #### T 4F, TSH3, T3F #### [address] Mean Corpuscular HGB Conc 33.1 g/dL Normal 32.0-35.0 [facility] Comment on above: Performed By: #### T 4F, TSH3, T3F #### [address] Monocytes (Bld) [#/Vol] 0.5 10*3/uL Normal 0.0-0.8 [facility] Comment on above: Performed By: #### T 4F, TSH, T3F #### [address] Monocytes/100 WBC (Bld) 6.8 % Normal . [facility] Comment on above: Performed By: #### T 4F, TSH, T3F #### [address] Neutrophils (Bld) [#/Vol] 3.9 10*3/uL Normal 1.8-7.7 [facility] Comment on above: Performed By: #### T 4F, , T3F #### [address] Neutrophils/100 WBC (Bld) 55.3 % Normal . [facility] Comment on above: Performed By: #### T 4F, , T3F #### [address] NRBC% 0.1 /100{WBC} Normal 0-0.5 [facility] Comment on above: Performed By: #### T 4F, , T3F #### [address] Platelet mean volume (Bld) [Entitic vol] 8.3 fL Normal 6.3-10.7 [facility] Comment on above: Performed By: #### T 4F, TSH, T3F #### [place] [address] [place] Platelets (Bld) [#/Vol] 208 10*3/uL Normal 150-450 [facility] Comment on above: Performed By: #### T 4F, TSH, T3F #### [address] RBC (Bld) [#/Vol] 4.22 10*6/uL Normal 3.60-5.00 [facility] Comment on above: Performed By: #### T 4F, TSH, T3F #### [facility] [address] WBC (Bld) [#/Vol] 7.1 10*3/uL Normal 3.8-11.6 [facility] Comment on above: Performed By: #### T 4F, TSH3, T3F #### [facility] [address] [place] [id number] [facility] echo transthoracicon [facility] echo transthoracic [facility] [place] [address] [place] [address] Echocardiogram Signed Patient: Karuna Reynaga MR#: [id number] 289 : 1945 Acct:[id number] Age/Sex: 79 / F ADM Date: 04/13/24 Loc: Room: [address] [place] [address] Type: ADM IN Attending Dr: Renan Murguia MD Ordering Provider: Albert Palacio DO Date of Service: 04/13/2407/29/1913 [facility] echo transthoracic: troponin elevation Copies to: MD [...] mmHg RAP systole: 3.0 mmHg Transcribed By: SCV Performed At: 04/14/24 0900 Signed By: Praveena Garcia MD 04/14/24 1440 Normal [facility] Glucose [Mass/volume] in Uri ne by Test stripOrdered By: Ashley Dickerson on 04-14-2024 Glucose Test strip (U) [Mass/Vol] Normal mg/dL Normal [facility] Hemoglobin Test strip Ql (U) Ordered By: Ashley Dickerson on 04-14-2024 Hemoglobin Ql (U) Negative Negative [facility] Ketones [Presence] in Urine by Test stripOrdered By: Ashley Dickerson on 04-14-2024 Ketones Ql (U) Negative Normal Negative [facility] Comment on above: Order Comment: Name Collection Type:: Clean-Voided Midstream Performed By: #### T 4F, TSH3, T3F #### [facility] [address] Leukocyte esterase [Presence ] in Urine by Test stripOrdered By: Ashley Dickerson on 04-14-2024 Leukocyte esterase Test strip Ql (U) Negative Normal Negative [facility] Comment on above: Order Comment: Name Collection Type:: Clean-Voided Midstream Performed By: #### T 4F, TSH3, T3F #### [facility] [address] Lipid Panelon 04-14-2024 LDL Cholesterol,Calculated 82 mg/dL Normal 0-100 [facility] Comment on above: Result Comment: LDL ATP III CLASSIFICATION LDL less than 100 mg/dL Optimal LDL 100-129 mg/dL Near or above optimal LDL 130-159 mg/dL Borderline high LDL 160-189 mg/dL High LDL greater than 189 mg/dL Very high Performed By: #### T 4F, TSH3, T3F #### [facility] [address] [place] [address] [place] Triglyceride w/Reflex 64 mg/dL Normal 0-149 [facility] Comment on above: Result Comment: TRIG ATP III CLASSIFICATION TRIG less than 150 mg/dL Normal TRIG 150-199 mg/dL Borderline high TRIG 200-500 mg/dL High TRIG greater than 500 mg/dL Very high Standard traceable to the Center for Disease Conrtrol and Prevention (CDC) test method. Performed By: #### T 4F, TSH3, T3F #### [address] VLDL CHOLESTEROL 12 mg/dL Normal [facility] Comment on above: Performed By: #### T 4F, TSH3, T3F #### [facility] [address] [place] [id number] [facility] Magnesium [Mass/volume] in S sun or PlasmaOrdered By: Albert Palacio on 04-14-2024 Magnesium [Mass/Vol] 1.9 mg/dL Normal 1.9-2.7 [facility] Comment on above: Performed By: #### T 4F, TSH3, T3F #### [address] Nitrite Test strip Ql (U)Ord ered By: Ashley Dickerson on 04-14-2024 Nitrite Ql (U) Negative Negative [facility] Partial Thromboplastin Timeo n 04-14-2024 aPTT Coag (Bld) [Time] 77.1 s High 25.1-36.5 Th e [facility] Comment on above: Order Comment: List the anticoagulant: HEPARIN, UNFRACTIONATED Result Comment: A he matocrit value greater than 55% may lead to inaccurate results in coagulation testing. Patients having hematocrit values >55% require a special collection tube for coagulation studies. Please contact the laboratory at [phone] for redraw instructions. PERFORMED BY: [place] [address] PATHOLOGIST [employer] HELPER EDMOND NORTH M.D. Performed By: #### T 4F, T3F, TSH3 #### [place] [id number] [facility] aPTT Coag (Bld) [Time] 141.3 s Off scale high 25.1-36.5 [facility] Comment on above: Result Comment: Crit ical value result called at 0922 on 04/14/24 A hematocrit value greater than 55% may lead to inaccurate results in coagulation testing. Patients having hematocrit values >55% require a special collection tube for coagulation studies. Please contact the laboratory at [phone] for redraw instructions. PERFORMED BY: [address] [place] [address] PATHOLOGIST [employer] HELPER EDMOND NORTH M.D. Performed By: #### T 4F, TSH3, T3F #### [facility] [address] [place] [address] [facility] aPTT Coag (Bld) [Time] 50.2 s High 25.1-36.5 Th e [facility] Comment on above: Result Comment: A he matocrit value greater than 55% may lead to inaccurate results in coagulation testing. Patients having hematocrit values >55% require a special collection tube for coagulation studies. Please contact the laboratory at [phone] for redraw instructions. PERFORMED BY: [address] [place] [address] PATHOLOGIST [employer] HELPER EDMOND NORTH M.D. Performed By: #### T 4F, T3F, TSH3 #### [facility] [address] [place] [id number] [facility] Protein Test strip (U) [Mass /Vol]Ordered By: Ashley Dickerson on 04-14-2024 Protein (U) [Mass/Vol] Negative Negative [facility] Serum or plasma high density lipoprotein (HDL) cholesterol measurementOrdered By: Albert Palacio on 04-14-2024 Cholesterol in HDL [Mass/Vol] 59 mg/dL Normal 23-92 [facility] Comment on above: HDL CHOL ATP-III CLA SSIFICATION Cardiovascular RiskHDL > or equal to 60 mg/dL LOWHDL < 40 mg/dL HIGH Result Comment: HDL CHOL ATP-III CLASSIFICATION Cardiovascular Risk HDL > or equal to 60 mg/dL LOW HDL < 40 mg/dL HIGH Performed By: #### T 4F, TSH3, T3F #### [facility] [address] [place] [id number] [facility] Serum or plasma total choles terol/high density lipoprotein (HDL) cholesterol mass ratOrdered By: Albert Palacio on 04-14-2024 Cholesterol.total/Chol esterol in HDL [Mass ratio] 2.6 {ratio} Normal <5.0 [facility] Comment on above: Result Comment: PERF ORMED BY: [address] [id number] PATHOLOGIST BOILER[employer] HELPER EDMOND NORTH M.D. Performed By: #### T 4F, TSH3, T3F #### [place] [id number] [facility] Specific gravity Test strip (U) [Rel density]Ordered By: Ashlye Dickerson on 04-14-2024 Specific gravity (U) [Rel density] 1.011 1.001-1.030 [facility] Triglyceride [Mass/volume] i n Serum or PlasmaOrdered By: Albert Palacio on 04-14-2024 Triglyceride [Mass/Vol] 64 mg/dL 0-149 [facility] Comment on above: TRIG ATP III CLASSIF ICATIONTRIG less than 150 mg/dL NormalTRIG 150-199 mg/dL Borderline highTRIG 200-500 mg/dL High TRIG greater than 500 mg/dL Very highStandard traceable to the Center for Disease Conrtrol and Prevention (CDC) test method. Troponin I High Sensitivityo n 04-14-2024 Troponin I High Sensitivity 436.4 pg/mL Off scale high 0.0-15.0 [facility] Comment on above: Result Comment: Crit ical Result : Called to and read back by: BRET HARKINS at: 04/14/2024 06:14:01 by:SOUMYA PERFORMED BY: [place] [address] PATHOLOGIST [employer] HELPER EDMOND NORTH M.D. Performed By: #### T 4F, TSH3, T3F #### [place] [id number] [facility] Troponin I.cardiac [Mass/vol ume] in Serum or Plasma by Detection limit <= 0.01 ng/Ordered By: Albert Palacio on 04-14-2024 Troponin I.cardiac DL <= 0.01 ng/mL [Mass/Vol] 436.4 pg/mL High 0.0-15.0 [facility] Comment on above: Critical Result : Ca lled to and read back by: BRET HARKINS at: 04/14/2024 06:14:01 by:SOUMYA Urinalysison 04-14-2024 Bilirubin,Urine Negative Normal Negative [facility] Comment on above: Order Comment: Name Collection Type:: Clean-Voided Midstream Performed By: #### T 4F, TSH3, T3F #### [address] Glucose Ql (U) Normal Normal Normal [facility] Comment on above: Order Comment: Name Collection Type:: Clean-Voided Midstream Performed By: #### T 4F, TSH3, T3F #### [address] Nitrite,Urine Negative Normal Negative [facility] Comment on above: Order Comment: Name Collection Type:: Clean-Voided Midstream Performed By: #### T 4F, TSH3, T3F #### [address] Occult Blood,Urine Negative Normal Negative [facility] Comment on above: Order Comment: Name Collection Type:: Clean-Voided Midstream Result Comment: PERF ORMED BY: [place] [address] PATHOLOGIST BO[employer] HELPER EDMOND NORTH M.D. Performed By: #### T 4F, TSH3, T3F #### [address] Protein,Urine Negative Normal Negative [facility] Comment on above: Order Comment: Name Collection Type:: Clean-Voided Midstream Performed By: #### T 4F, TSH3, T3F #### [address] Specificy [place],Urine 1.011 Normal 1.001-1.030 [facility] Comment on above: Order Comment: Name Collection Type:: Clean-Voided Midstream Performed By: #### T 4F, TSH3, T3F #### [address] Urobilinogen,Urine Normal Normal Normal [facility] Comment on above: Order Comment: Name Collection Type:: Clean-Voided Midstream Performed By: #### T 4F, TSH3, T3F #### [place] [address] [place] Urine appearanceOrdered By: Ashley Dickerson on 04-14-2024 Appearance (U) Clear Normal Clear [facility] Comment on above: Order Comment: Name Collection Type:: Clean-Voided Midstream Performed By: #### T 4F, TSH3, T3F #### [address] Urobilinogen Test strip (U) [Mass/Vol]Ordered By: Ashley Dickerson on 04-14-2024 Urobilinogen (U) [Mass/Vol] Normal mg/dL Normal [facility] XR pre/post mri xrayon 04-14 XR pre/post mri xray [facility] Main [place] [address] [place] [address] XRay Report Signed Patient: Karuna Reynaga MR#: [id number] 289 : 1945 Acct:[id number] Age/Sex: 79 / F ADM Date: 04/13/24 Loc: Room: [address] [place] [address] Type: ADM IN Attending Dr: Renan Murguia [...] Jamal Bird M.D.04/14/2024 8:55 PM Dictation Location: [place] [address] Transcribed By: [facility] 04/14/242054 Dictated By: Jamal Bird DO 04/14/242053 Signed By: 04/14/242054 Catarina [facility] pH of Urine by Test stripOrd ered By: Ashley Dickerson on 04-14-2024 pH (U) 6.0 [pH] Normal 5.0-9.0 [facility] Comment on above: Order Comment: Name Collection Type:: Clean-Voided Midstream Performed By: #### T 4F, TSH3, T3F #### [facility] [address] [place] [address] [place] Activated partial thrombopla stin time (aPTT) in platelet poor plasma by coagulation aOrdered By: Ashley Dickerson on 04-13-2024 aPTT Coag (PPP) [Time] 28.3 s 25.1-36.5 [facility] Comment on above: A hematocrit value g reater than 55% may lead to inaccurate results in coagulation testing. Patients having hematocrit values >55% require a special collection tube for coagulation studies. Please contact the laboratory at [phone] for redraw instructions. Alanine aminotransferase [En zymatic activity/volume] in Serum or PlasmaOrdered By: Ashley Dickerson on 04-13-2024 ALT [Catalytic activity/Vol] 19 U/L Normal 7-52 [facility] Comment on above: Performed By: #### T 4F, TSH, T3F #### [place] [address] [place] Albumin [Mass/volume] in Ser um or Plasma by Bromocresol green (BCG) dye binding methoOrdered By: Ashley Dickerson on 04-13-2024 Albumin BCG dye [Mass/Vol] 3.6 g/dL 3.5-5.7 [facility] Alkaline phosphatase [Enzyma tic activity/volume] in Serum or PlasmaOrdered By: Ashley Dickerson on 04-13-2024 ALP [Catalytic activity/Vol] 48 U/L Normal 34-104 [facility] Comment on above: Performed By: #### T 4F, TSH, T3F #### [facility] [id number] [facility] Aspartate aminotransferase [ Enzymatic activity/volume] in Serum or PlasmaOrdered By: Ashley Dickerson on 04-13-2024 AST [Catalytic activity/Vol] 19 U/L Normal 13-39 [facility] Comment on above: Performed By: #### T 4F, TSH3, T3F #### [facility] [address] [place], [place] [id number] [place] Automated basophil %Ordered By: Ashley Dickerson on 04-13-2024 Basophils/100 WBC (Bld) 0.8 % Normal . [facility] Comment on above: Performed By: #### T 4F, TSH3, T3F #### [address] Automated basophil countOrde red By: Ashley Dickerson on 04-13-2024 Basophils (Bld) [#/Vol] 0.1 10*3/uL Normal 0.0-0.2 [facility] Comment on above: Result Comment: PERF ORMED BY: [place] [address] PATHOLOGIST [employer]IL[employer] HELPER EDMOND NORTH M.D. Performed By: #### T 4F, TSH, T3F #### [address] Automated blood monocyte cou ntOrdered By: Ashley Dickerson on 04-13-2024 Monocytes (Bld) [#/Vol] 0.5 10*3/uL Normal 0.0-0.8 [facility] Comment on above: Performed By: #### T 4F, TSH, T3F #### [address] Automated eosinophil %Ordere d By: Ashley Dickerson on 04-13-2024 Eosinophils/100 WBC (Bld) 4.3 % Normal . [facility] Comment on above: Performed By: #### T 4F, TSH, T3F #### [address] Automated eosinophil countOr dered By: Ashley Dickerson on 04-13-2024 Eosinophils (Bld) [#/Vol] 0.3 10*3/uL Normal 0.0-0.45 [facility] Comment on above: Performed By: #### T 4F, TSH3, T3F #### [address] Automated monocyte %Ordered By: Ashley Dickerson on 04-13-2024 Monocytes/100 WBC (Bld) 7.4 % Normal . [facility] Comment on above: Performed By: #### T 4F, TSH3, T3F #### [facility] [address] [place] [address] Automated neutrophil %Ordere d By: Ashley Dickerson on 04-13-2024 Neutrophils/100 WBC (Bld) 58.0 % Normal . [facility] Comment on above: Performed By: #### T 4F, TSH3, T3F #### [address] BNP ser/plasOrdered By: Howard Palacio on 04-13-2024 Natriuretic peptide B (Bld) [Mass/Vol] 12.0 pg/mL Normal 5-100 [facility] Comment on above: Order Comment: Comme nt add on to ER labs Result Comment: PERF ORMED BY: [place] [address] PATHOLOGIST [employer]ER[employer] HELPER EDMOND NORTH M.D. Performed By: #### T 4F, TSH3, T3F #### [address] Bilirubin.total [Mass/volume ] in Serum or PlasmaOrdered By: Ashley Dickerson on 04-13-2024 Bilirubin [Mass/Vol] 0.4 mg/dL Normal 0.3-1.0 [facility] Comment on above: Performed By: #### T 4F, TSH3, T3F #### [address] angio neckon 04-13-[address] [facility] [place] [address] CT Scan Report Signed Patient: Karuna Reynaga MR#: [id number] 289 : 1945 Acct:[id number] Age/Sex: 79 / F ADM Date: 04/13/24 Loc: ER Room: Type: PRE ER Attending Dr: Copies to: Ashley Dickerson APRN Ordering Provider: Ashley Dickerson APRN Date of Service: 04/13/24 CT/CT angio head: acute stroke/neuro deficits ([id number]) CT/CT angio neck: acute stroke/neuro deficits CTA [...] Jamal Bird M.D.04/13/2024 4:31 PM Dictation Location: [place] [address] Transcribed By: [facility] 04/13/24 1631 Dictated By: Jamal Bird DO 04/13/24 1626 Signed By: 04/13/24 1631 Normal [facility] CT head stroke alert dannielle rainey 04-13-2024 CT head stroke alert wo nicolle [facility] [place] [address] CT Scan Report Signed Patient: Karuna Reynaga MR#: [id number] 289 : 1945 Acct:[id number] Age/Sex: 79 / F ADM Date: 04/13/24 [...] Jamal Bird M.D.04/13/2024 4:11 PM Dictation Location: [place] [address] Transcribed By: BERTA 04/13/24 1611 Dictated By: Jamal Bird DO 04/13/24 1607 Signed By: 04/13/24 1611 Normal [facility] Calcium [Mass/volume] in Ser um or PlasmaOrdered By: Ashley Dickerson on 04-13-2024 Calcium [Mass/Vol] 8.7 mg/dL Normal 8.6-10.3 [facility] Comment on above: Performed By: #### T 4F, TSH3, T3F #### [address] Capillary blood glucose marce urement by glucometer (mass/volume)Ordered By: Ashley Dickerson on 04-13-2024 Glucose [Mass/Vol] 167 mg/dL Normal [facility] Comment on above: Random Glucose Refer ence Range is dependent on time and content of last meal. Glucose of more than 200 mg/dL in a nonstressed, ambulatory subject supports the diagnosis of Diabetes Mellitus. Result Comment: [place] om Glucose Reference Range is dependent on time and content of last meal. Glucose of more than 200 mg/dL in a nonstressed, ambulatory subject supports the diagnosis of Diabetes Mellitus. Performed By: #### T 4F, T3F, TSH3 #### [facility] [address] [place] [address] [place] Carbon dioxide, total [Moles /volume] in Serum or PlasmaOrdered By: Ashley Dickerson on 04-13-2024 CO2 [Moles/Vol] 28.0 mmol/L Normal 21.0-31.0 [facility] Comment on above: Performed By: #### T 4F, TSH3, T3F #### [address] Chloride [Moles/volume] in S sun or PlasmaOrdered By: Ashley Dickerson on 04-13-2024 Chloride [Moles/Vol] 105 mmol/L Normal 98-107 [facility] Comment on above: Performed By: #### T 4F, TSH3, T3F #### [address] Complete Blood Count Auto Di ffon 04-13-2024 Mean Corpuscular HGB Conc 32.8 g/dL Normal 32.0-35.0 [facility] Comment on above: Performed By: #### T 4F, TSH3, T3F #### [address] Monocytes/100 WBC (Bld) 18.47 % Normal 0.00-20.00 [facility] Comment on above: Performed By: #### T 4F, TSH3, T3F #### [address] NRBC% 0.1 /100{WBC} Normal 0-0.5 [facility] Comment on above: Performed By: #### T 4F, TSH3, T3F #### [address] Comprehensive Metabolic Pane geovanny 04-13-2024 Albumin [Mass/Vol] 3.6 g/dL Normal 3.5-5.7 [facility] Comment on above: Performed By: #### T 4F, TSH3, T3F #### [address] Creatinine Clr Calc Pharmacy 42.88 Normal [facility] Comment on above: Result Comment: PERF ORMED BY: [place] [address] PATHOLOGIST [employer] HELPER EDMOND NORTH M.D. Performed By: #### T 4F, TSH3, T3F #### [place] [address] [place] GFR/1.73 sq M.predicted MDRD (S/P/Bld) [Vol rate/Area] mL/min/{1.73_m2} Normal [facility] Comment on above: Performed By: #### T 4F, TSH3, T3F #### [place] [id number] [place] Creatine Kinaseon 04-13-2024 CK [Catalytic activity/Vol] 51 U/L Normal 30-223 [facility] Comment on above: Performed By: #### T 4F, TSH3, T3F #### [place] [id number] [facility] Creatine kinase [Enzymatic a ctivity/volume] in Serum or PlasmaOrdered By: Albert Palacio on 04-13-2024 CK [Catalytic activity/Vol] 56 U/L Normal 30-223 [facility] Comment on above: Performed By: #### T 4F, T3F, TSH3 #### [place] [address] [place] Creatinine [Mass/volume] in Serum or PlasmaOrdered By: Ashley Dickerson on 04-13-2024 Creatinine [Mass/Vol] 0.92 mg/dL Normal 0.60-1.20 [facility] Comment on above: Performed By: #### T 4F, TSH3, T3F #### [place] [id number] [place] ECG 12 lead ECGon 04-13-[address] [facility] [place] [address] [place] [address] Electrocardiograph Report Signed Patient: Karuna Reynaga MR#: [id number] 289 : 1945 Acct:[id number] Age/Sex: 79 / F ADM Date: 04/13/24 Loc: Room: [address] [place] [address] Type: DIS IN Attending Dr: Renan Murguia [...] previous ECGs available Confirmed by [facility] Bull[facility] ([id number]) on 04/19/2024 2:11:00 PM Referred By: Electronically Signed By:GILBERT TORRE MD [facility] Transcribed By: MUS Signed By Gilbert Torre MD, [facility] 04/19/24 1411 Normal [facility] ECG [address] [facility] [place] [address] Electrocardiograph Report Signed Patient: Karuna Reynaga MR#: [id number] 289 : 1945 Acct:[id number] Age/Sex: 79 / F ADM Date: 04/13/24 Loc: Room: [address] [place] [address] Type: ADM IN Attending Dr: Albert Palacio [...] Simone Navarro MD 04/14/24 0024 Normal [facility] Erythrocyte distribution wid th [Ratio] by Automated countOrdered By: Ashley Dickerson on 04-13-2024 Erythrocyte distribution width (RBC) [Ratio] 12.7 % Normal 11.9-15.3 [facility] Comment on above: Performed By: #### T 4F, TSH3, T3F #### [facility] [address] Erythrocytes [#/volume] in B lood by Automated countOrdered By: Ashley Dickesron on 04-13-2024 RBC (Bld) [#/Vol] 4.32 10*6/uL Normal 3.60-5.00 [facility] Comment on above: Performed By: #### T 4F, TSH3, T3F #### [facility] [address] Glucose Poct Glucometerson 0 04-13-2024 Commemt1 Glu2: Cleaned Meter Normal [facility] Comment on above: Result Comment: PERF ORMED BY: [place] [address] PATHOLOGIST BO[employer]ER[employer] HELPER EDMOND NORTH M.D. Performed By: #### T 4F, T3F, TSH3 #### [facility] [address] Glucose [Mass/volume] in Ser um or PlasmaOrdered By: Ashley Dickerson on 04-13-2024 Glucose [Mass/Vol] 173 mg/dL High 70-100 [facility] Comment on above: ADA recommended refe rence rangeRandom Glucose Reference Range is dependent on time and content of last meal. Glucose of more than 200 mg/dL in a nonstressed, ambulatory subject supports the diagnosis of Diabetes Mellitus. Result Comment: [place] om Glucose Reference Range is dependent on time and content of last meal. Glucose of more than 200 mg/dL in a nonstressed, ambulatory subject supports the diagnosis of Diabetes Mellitus. ADA recommended reference range Performed By: #### T 4F, TSH3, T3F #### [facility] [address] Hematocrit [Volume Fraction] of Blood by Automated countOrdered By: Ashley Dickerson on 04-13-2024 Hematocrit (Bld) [Volume fraction] 38.7 % Normal 34.0-46.4 [facility] Comment on above: Performed By: #### T 4F, TSH3, T3F #### [facility] [address] Hemoglobin [Mass/volume] in BloodOrdered By: Ashley Dickerson on 04-13-2024 Hemoglobin (Bld) [Mass/Vol] 12.7 g/dL Normal 11.8-15.4 [facility] Comment on above: Performed By: #### T 4F, TSH3, T3F #### [facility] [address] INR in Platelet poor plasma by Coagulation assayOrdered By: Ashley Dickerson on 04-13-2024 INR Coag (PPP) [Relative time] 1.1 {INR} Normal [facility] Comment on above: INR Therapeutic Rang e [...] T 4F, TSH3, T3F #### [facility] [address] [place] [address] [place] ISTAT XRay CREon 04-13-2024 ISTAT GFR 51.432 Normal [facility] Comment on above: Result Comment: PERF ORMED BY: [place] [address] PATHOLOGIST BOILER[employer] HELPER EDMOND NORTH M.D. Performed By: #### T 4F, T3F, TSH3 #### [facility] [address] [place] [address] Leukocytes [#/volume] correc rob for nucleated erythrocytes in Blood by Automated counOrdered By: Ashley Dickerson on 04-13-2024 WBC corrected for nucl RBC Auto (Bld) [#/Vol] 6.3 10*3/uL 3.8-11.6 [facility] Leukocytes [#/volume] in Blo od by Automated countOrdered By: Ashley Dickerson on 04-13-2024 WBC (Bld) [#/Vol] 6.3 10*3/uL Normal 3.8-11.6 [facility] Comment on above: Performed By: #### T 4F, TSH3, T3F #### [facility] [address] [place] [address] Lymphocytes [#/volume] in Bl ood by Automated countOrdered By: Ashley Dickerson on 04-13-2024 Lymphocytes (Bld) [#/Vol] 1.8 10*3/uL Normal 1.00-4.8 [facility] Comment on above: Performed By: #### T 4F, TSH3, T3F #### [facility] [address] [place] [address] Lymphocytes/100 leukocytes i n Blood by Automated countOrdered By: Ashley Dickerson on 04-13-2024 Lymphocytes/100 WBC (Bld) 29.5 % Normal . [facility] Comment on above: Performed By: #### T 4F, TSH3, T3F #### [facility] [address] [place] [address] MCH [Entitic mass] by Automa rob countOrdered By: Ashley Dickerson on 04-13-2024 MCH (RBC) [Entitic mass] 29.4 pg Normal 24.7-34.3 [facility] Comment on above: Performed By: #### T 4F, TSH3, T3F #### [facility] [address] [place] [address] MCHC Auto (RBC) [Mass/Vol]Or dered By: Ashley Dickerson on 04-13-2024 MCHC (RBC) [Mass/Vol] 32.8 g/dL 32.0-35.0 [facility] MCV [Entitic volume] by Auto mated countOrdered By: Ashley Dickerson on 04-13-2024 MCV (RBC) [Entitic vol] 89.6 fL Normal 80-100 [facility] Comment on above: Performed By: #### T 4F, TSH3, T3F #### [facility] [address] Monocyte distribution width [Entitic volume] in Blood by AutomatedOrdered By: Ashley Dickerson on 04-13-2024 Monocyte distribution width Auto (Bld) [Entitic vol] 18.47 % 0.00-20.00 [facility] Neutrophils [#/volume] in Bl ood by Automated countOrdered By: Ashley Dickerson on 04-13-2024 Neutrophils (Bld) [#/Vol] 3.6 10*3/uL Normal 1.8-7.7 [facility] Comment on above: Performed By: #### T 4F, TSH3, T3F #### [facility] [address] No Panel InformationOrdered By: Ashley Dickerson on 04-13-2024 Bedside Estimated GFR (eGFR) 51.432 [facility] Bedside Glucose Comment Glu2: cleaned meter [facility] Estimated GFR (CKD-EPI) > 60.0 mL/Min [facility] Pharmacy Creatinine Clearance (Chem 42.88 [facility] Nucleated erythrocytes [Pres ence] in Blood by Automated countOrdered By: Ashley Dickerson on 04-13-2024 Nucleated RBC Auto Ql (Bld) 0.1 /100{WBC} 0-0.5 [facility] Partial Thromboplastin Timeo n 04-13-2024 aPTT Coag (Bld) [Time] 28.3 s Normal 25.1-36.5 Th e [facility] Comment on above: Result Comment: A he matocrit value greater than 55% may lead to inaccurate results in coagulation testing. Patients having hematocrit values >55% require a special collection tube for coagulation studies. Please contact the laboratory at [phone] for redraw instructions. PERFORMED BY: [place] [address] PATHOLOGIST BOILERMAK[employer] HELPER EDMOND NORTH M.D. Performed By: #### T 4F, TSH3, T3F #### [place] [address] [place] Platelet mean volume [Entiti c volume] in Blood by Automated countOrdered By: Ashley Dickerson on 04-13-2024 Platelet mean volume (Bld) [Entitic vol] 7.8 fL Normal 6.3-10.7 [facility] Comment on above: Performed By: #### T 4F, TSH3, T3F #### [place] [address] [place] Platelets [#/volume] in Bloo d by Automated countOrdered By: Ashley Dickerson on 04-13-2024 Platelets (Bld) [#/Vol] 221 10*3/uL Normal 150-450 [facility] Comment on above: Performed By: #### T 4F, TSH3, T3F #### [place] [address] [place] Potassium [Moles/volume] in Serum or PlasmaOrdered By: Ashley Dickerson on 04-13-2024 Potassium [Moles/Vol] 4.1 mmol/L Normal 3.5-5.1 [facility] Comment on above: Performed By: #### T 4F, TSH3, T3F #### [facility] [address] [place] [address] [place] Protein [Mass/volume] in Ser um or PlasmaOrdered By: Ashley Dickerson on 04-13-2024 Protein [Mass/Vol] 6.6 g/dL Normal 6.4-8.9 [facility] Comment on above: Performed By: #### T 4F, TSH3, T3F #### [address] Prothrombin time (PT)Ordered By: Ashley Dickerson on 04-13-2024 PT Coag (PPP) [Time] 12.5 s Normal 9.0-12.9 [facility] Comment on above: A hematocrit value g reater than 55% may lead to inaccurate results in coagulation testing. Patients having hematocrit values >55% require a special collection tube for coagulation studies. Please contact the laboratory at [phone] for redraw instructions. Result Comment: A he matocrit value greater than 55% may lead to inaccurate results in coagulation testing. Patients having hematocrit values >55% require a special collection tube for coagulation studies. Please contact the laboratory at [phone] for redraw instructions. Performed By: #### T 4F, TSH3, T3F #### [facility] [address] [place] [address] Serum globulin measurement b y calculation (mass/volume)Ordered By: Ashley Dickerson on 04-13-2024 Globulin (S) [Mass/Vol] 3.0 g/dL [facility] Comment on above: Performed By: #### T 4F, TSH3, T3F #### [facility] [address] [place] [address] Serum or plasma albumin/glob ulin mass ratioOrdered By: Ashley Dickerson on 04-13-2024 Albumin/Globulin [Mass ratio] 1.2 {ratio} [facility] Comment on above: Performed By: #### T 4F, TSH3, T3F #### [facility] [address] [place] [address] Serum or plasma anion gap de terminationOrdered By: Ashley Dickerson on 04-13-2024 Anion gap [Moles/Vol] 9.1 mmol/L Normal 6.0-15.0 [facility] Comment on above: Performed By: #### T 4F, TSH3, T3F #### [facility] [address] [place] [address] Sodium [Moles/volume] in Ser um or PlasmaOrdered By: Ashley Dickerson on 04-13-2024 Sodium [Moles/Vol] 138 mmol/L Normal 136-145 [facility] Comment on above: Performed By: #### T 4F, TSH3, T3F #### [facility] [address] [place] [address] Troponin I High Sensitivityo n 04-13-2024 Troponin I High Sensitivity 454.0 pg/mL Off scale high 0.0-15.0 [facility] Comment on above: Result Comment: Crit ical Result : Called to and read back by: HUGH BRUMFIELD at: 04/13/2024 19:01:57 by:[id number] PERFORMED BY: [place] [address] PATHOLOGIST BOILER[employer] HELPER EDMOND NORTH M.D. Performed By: #### T 4F, T3F, TSH3 #### [facility] [address] [place] [address] Troponin I High Sensitivity 482.4 pg/mL Off scale high 0.0-15.0 [facility] Comment on above: Result Comment: Crit ical Result : Called to and read back by: SOREN BURDEN at: 04/13/2024 17:12:51 by:[id number] PERFORMED BY: [place] [address] PATHOLOGIST BOIL[employer] HELPER EDMOND NORTH M.D. Performed By: #### T 4F, TSH3, T3F #### [facility] [address] [place] [address] Troponin I.cardiac [Mass/vol ume] in Serum or Plasma by Detection limit <= 0.01 ng/Ordered By: Albert Palacio on 04-13-2024 Troponin I.cardiac DL <= 0.01 ng/mL [Mass/Vol] 454.0 pg/mL 0.0-15.0 [facility] Comment on above: Critical Result : Ca lled to and read back by: HUGH BRUMFIELD at: 04/13/2024 19:01:57 by:[id number] Urea nitrogen [Mass/volume] in Serum or PlasmaOrdered By: Ashley Dickerson on 04-13-2024 Urea nitrogen [Mass/Vol] 19 mg/dL Normal 7-25 [facility] Comment on above: Performed By: #### T 4F, TSH3, T3F #### [facility] [address] [place] [address] Whole blood creatinine measu rementOrdered By: Ashley Dickerson on 04-13-2024 Creatinine [Mass/Vol] 1.1 mg/dL Normal 0.6-1.3 [facility] Comment on above: ER/ESD physician is notified/shown all ISTAT results.Critical values may be confirmed by laboratory testing ifdeemed necessary by ER attending doctor. Result Comment: ER/E SD physician is notified/shown all ISTAT results. Critical values may be confirmed by laboratory testing if deemed necessary by ER attending doctor. Performed By: #### T 4F, T3F, TSH3 #### [address] XR chest 1V portableon 04-13 XR chest 1V portable [facility] [place] [address] [place] [address] XRay Report Signed Patient: Karuna Reynaga MR#: [id number] 289 : 1945 Acct:[id number] Age/Sex: 79 / F ADM Date: 04/13/24 [...] Jamal Bird M.D.04/13/2024 4:26 PM Dictation Location: [place] [address] Transcribed By: [facility] 04/13/24 162 Dictated By: Jamal Bird DO 04/13/241623 Signed By: 04/13/241625 Normal [facility] ECG 12 Leadon 03-10-2024 [facility] Work Phone: Normal sinus rhythm cannot exclude pattern of septal myocardial infarction no acute abnormalities [facility] Work Phone: Juany 02-26-2024 CNPN Telephone ([facility]) -- KARUNA REYNAGA ([id number]) 1945 F Date Time Provider Department 02/26/24 UBALDO DUBOSE [facility] During your visit today, we recorded the [...] Encounter Status:Closed by [facility] -- KARUNA REYNAGA ([id number]) 1945 F Date Time Provider Department 02/26/24 UBADLO DUBOSE [facility] During your visit today, we recorded the following information about you: Eileen Lucas, TEAGAN 02/26/2024 4:05 PM Signed Received outside imaging reports via electronic fax. Uploaded to scanned documents for provider to review. John [place] 02/27/2024 8:44 AM Signed Imported external imaging report from [facility] [employer], dated 02/22/2024. Please allow time delay for documents to appear in [facility] (Scanned Documents Tab). Images can take up to 24 hours to appear in [employer]. John [place] 02/27/2024 8:59 AM Signed Imported external CT report from [facility], dated 02/25/2024. Please allow time delay for documents to appear in [facility] (Scanned Documents Tab). Images can take up to 24 hours to appear in [facility]. Allergies As of Date: 02/26/2024 Noted Allergy [...] Status:Closed by EILEEN LUCAS on 02/26/[address] [facility] CT angio chest PE protocolon 02-25-2024 CT angio chest PE protocol [facility] [place] [address] [place] [address] CT Scan Report Signed Patient: Karuna Reynaga MR#: [id number] 289 : 1945 Acct:[id number] Age/Sex: 79 / F ADM Date: 02/25/24 Loc: CT Room: [facility] Attending Dr: Jose Luis Lockhart RN, [...] Jamal Bird M.D.02/25/2024 2:40 PM Dictation Location: [place] [address] Transcribed By: [facility] 02/25/24 1440 Dictated By: Jamal Bird DO 02/25/24 1429 Signed By: 02/25/24 1440 Normal [facility] [facility] ISTAT XRay CREon 02-25-2024 ISTAT GFR > 60.0 Normal [facility] Comment on above: Result Comment: PERF ORMED BY: [place] [address] PATHOLOGIST BOILERMAKER HELPER EDMOND NORTH M.D. Performed By: #### T 4F, T3F, TSH3 #### [address] No Panel InformationOrdered By: JOSE LUIS LOCKHART on 02-25-2024 Bedside Estimated GFR (eGFR) > 60.0 [facility] Whole blood creatinine measu rementOrdered By: JOSE LUIS LOCKHART on 02-25-2024 Creatinine [Mass/Vol] 0.7 mg/dL Normal 0.6-1.3 [facility] Comment on above: ER/ESD physician is notified/shown all ISTAT results.Critical values may be confirmed by laboratory testing ifdeemed necessary by ER attending doctor. Result Comment: ER/E SD physician is notified/shown all ISTAT results. Critical values may be confirmed by laboratory testing if deemed necessary by ER attending doctor. Performed By: #### T 4F, T3F, TSH3 #### [facility] [address] [place] [address] XR CHEST 2 VIEWSon XR CHEST 2 [...] XR chest 2V* [facility] [place] [id number] XRay Report Signed Patient: Karuna Reynaga MR#: [id number] 289 : 1945 Acct:[id number] Age/Sex: 79 / F ADM Date: 02/13/24 Loc: XDUCLY Room: [facility] Attending Dr: Nallely SHIELDS Copies to: [...] Emma Muñoz M.D.02/13/2024 7:24 PM Dictation Location: [facility]13 Transcribed By: [facility] 02/13/241923 Dictated By: Emma Muñoz II, MD 02/13/241921 Signed By: 02/13/241923 Catarina [facility] Juany 01-22-2024 LOPEZ Telephone (MARIONN) -- JUHIKARUNA ([id number]) 1945 F Date Time Provider Department 01/22/24 UBALDO DUBOSE During your visit today, we recorded the following information about you: John [place] 01/22/2024 2:49 PM Signed Imported external notification of equipment delivery from [employer], dated 01/16/2024. Please allow time delay for documents to appear in nVoq (Scanned Documents Tab). Images can take up to 24 hours to appear in nVoq. Allergies As of Date: 01/22/2024 Noted Allergy [...] Reason for Visit: Received Outside Medical Records [[id number]] Prescriptions as of 01/23/2024 - Cholecalciferol, Vitamin [...] Status:Closed by JOHN MADISON on 01/23/[address] [facility] CNOVon 12-28-2023 CNOV Office Visit (PULMMN ) -- JUHIKARUNA Wylie ([id number]) 1945 F Date Time Provider Department 12/28/23 1:30 PM UBALDO DUBOSE During your visit today, we recorded the following information about you: Temperature Pulse Respiration Blood pressure 97.6 degrees 67/minute 16/minute 137/65 Weight 79.4 kg Ubaldo Dubose MD 2024 1:33 PM Addendum Respiratory [place] Karuna E Juhi is a 78 year old female here for evaluation by the [facility] Interstitial Lung Disease Team. Consultation requested [...] (more content not included)... Normal [facility] CT Chest WO contraston 12-28 IMPRESSION: [...] any questions regarding this interpretation, please call [phone]. If you are unable to reach us at the number above, please feel free to contact [facility] at [phone]. DIVISION OF RADIOLOGY * * *Final Report* * * DATE OF EXAM: Dec 27 2023 1:09PM [facility] 0541 - CT CHEST WO [...] calcified gallstone is noted in the gallbladder. Motor Vehicle Examiner (topogram) images: No additional findings. DIVISION OF RADIOLOGY Provider, [facility] - 12/28/2023 * * *Final Report* * * DATE OF EXAM: Dec 27 2023 1:09PM [facility] 0541 - CT CHEST WO [...] calcified gallstone is noted in the gallbladder. Motor Vehicle Examiner (topogram) images: No additional findings. IMPRESSION IMPRESSION: [...] any questions regarding this interpretation, please call [phone]. If you are unable to reach us at the number above, please feel free to contact [facility] at [phone]. [facility] CT Chest WO contrastOrdered By: Ccf Provider on 12-28-[address] [facility] [address] CHEST WO IVCONon 12-27-19 CT CHEST WO IVCON * * *Final Report* * * DATE OF EXAM: Dec 27 2023 1:09PM [facility] 0541 - CT CHEST WO [...] calcified gallstone is noted in the gallbladder. Motor Vehicle Examiner (topogram) images: No additional findings. IMPRESSION: 1. [...] any questions regarding this interpretation, please call [phone]. If you are unable to reach us at the number above, please feel free to contact [facility] eRadiology at [phone]. [id number] Normal [facility] CT Chest WO contraston 12-27 Radiology Study observation (narrative) [facility] LUNG DIFFUSION CAPACITY (SHANKAR O)on 12-25-2023 [facility] SPIROMETRY WITH DILATOR IF O BSTRUCTEDon 12-25-2023 DLCO (ml/min/mmHg) 9.76 ml/min/mmHg [facility] DLCO/VA (ml/min/mmHg/L) 4.48 ml/min/mmHg/L [facility] CGC79-60% PRE (L/S) 1.32 L/S [facility] FEV1 PRE (L) 1.05 L [facility] FEV1/FVC PRE (%) 89 % [facility] FVC PRE (L) 1.19 L [facility] PEF PRE (L/S) 1.90 L/S [facility] VA (L) 2.18 L [facility] CNPNon 11-28-2023 BEATRIZN Telephone (DEVON) -- KARUNA REYNAGA ([id number]) 1945 F Date Time Provider Department 11/28/23 [...] [1477] Primary Visit Diagnosis:ILD (interstitial lung disease) ([facility]) [J84.9] Other Visit Diagnoses:Shortness of breath [R06.02] Interstitial pulmonary disease (HCC) [J84.9] Order(s):SPIROMETRY WITH DILATOR IF OBSTRUCTED [4463589] Order #: [id number]: 1 FUTURE LUNG DIFFUSION CAPACITY (DLCO) [6252603] Order #: [id number]: [address] CHEST WO IVCON [4115853] Order #: [id number] FUTURE Prescriptions as of 12/11/2023 - levothyroxine [...] RED ANDERSON on 11/29/[address] [facility] XR chest 2V*on 11-21-2023 XR chest 2V* [facility] [address] [place] [address] [place] [address] XRay Report Signed Patient: Karuna Reynaga MR#: [id number] : 1945 Acct:[id number] Age/Sex: 78 / F ADM Date: 11/21/23 Loc: XD Room: [facility] Attending Dr: Jamal Alvarez DO Copies [...] Jorge Jr., D.O.11/21/2023 7:04 PM Dictation Location: [place] [address] Transcribed By: [facility] 11/21/231903 Dictated By: Frankie Jorge Jr, DO 11/21/231903 Signed By: 11/21/231903 Normal [facility] DEXA BONE DENSITYon 10-26-20 [...] 10-16-2023 TSH Qn 0.51 m[IU]/L Normal 0.45-5.33 [facility] Comment on above: Result Comment: PERF ORMED BY: [place] [address] PATHOLOGIST BOILERMAKER HELPER EDMOND NORTH M.D. Performed By: #### T 4F, TSH3, T3F #### [facility] [address] [place] [address] Thyroxine (T4) free [Mass/vo lume] in Serum or PlasmaOrdered By: Valdez Castro on 10-16-2023 Free T4 [Mass/Vol] 0.74 ng/dL Normal 0.61-1.12 [facility] Comment on above: Performed By: #### T 4F, TSH3, T3F #### [facility] [address] [place] [address] [place] Triiodothyronine (T3) Freeon 10-16-2023 Triiodothyronine (T3) Free 3.08 pg/mL Normal 2.50-3.90 [facility] Comment on above: Result Comment: PERF ORMED BY: [place] [address] PATHOLOGIST BOILERMAKER HELPER EDMOND NORTH M.D. Performed By: #### T 4F, TSH3, T3F #### [facility] [address] [place] [id number] [facility] Triiodothyronine (T3) Free [ Mass/volume] in Serum or PlasmaOrdered By: Valdez Castro on 10-16-2023 Free T3 [Mass/Vol] 3.08 pg/mL 2.50-3.90 [facility] Free T4 (Free Thyroxine)on 0 07-16-2023 Free T4 [Mass/Vol] 0.75 ng/dL Normal 0.61-1.12 [facility] Comment on above: Performed By: #### T 4F, T3F, TSH3 #### [facility] [address] Thyroid Stimulating Hormoneo n 07-16-2023 TSH Qn 0.07 m[IU]/L Low 0.45-5.33 [facility] Comment on above: Result Comment: PERF ORMED BY: [place] [address] PATHOLOGIST BOILERMAKER HELPER EDMOND NORTH M.D. Performed By: #### T 4F, T3F, TSH3 #### [facility] [address] [place] [id number] [facility] Triiodothyronine (T3) Freeon 07-16-2023 Triiodothyronine (T3) Free 2.81 pg/mL Normal 2.50-3.90 [facility] Comment on above: Result Comment: PERF ORMED BY: [place] [address] PATHOLOGIST BOILERMAKER HELPER EDMOND NORTH M.D. Performed By: #### T 4F, T3F, TSH3 #### [facility] [address] [place] [id number] [place] Basophils Auto (Bld) [#/Vol] Ordered By: Hermes Kennedy on 12-26-2022 Basophils (Bld) [#/Vol] 0.0 10*3/uL 0.0-0.2 [facility] Basophils/100 WBC Auto (Bld) Ordered By: Hermes Kennedy on 12-26-2022 Basophils/100 WBC (Bld) 0.5 % . [facility] Creatinine and Glomerular fi ltration rate.predicted panel (S/P/Bld)Ordered By: Hermes Kennedy on 12-26-2022 Creatinine [Mass/Vol] 0.61 mg/dL 0.44-1.03 [facility] Eosinophils Auto (Bld) [#/Vo l]Ordered By: Hermes Kennedy on 12-26-2022 Eosinophils (Bld) [#/Vol] 0.1 10*3/uL 0.0-0.45 [facility] Eosinophils/100 WBC Auto (Bl d)Ordered By: Hermes Kennedy on 12-26-2022 Eosinophils/100 WBC (Bld) 2.3 % . [facility] Erythrocyte distribution wid th Auto (RBC) [Ratio]Ordered By: Hermes Kennedy on 12-26-2022 Erythrocyte distribution width (RBC) [Ratio] 13.2 % 11.9-15.3 [facility] Estimated glomerular filtrat ion rate (GFR) non- AmericanOrdered By: Hermes Kennedy on 12-26-2022 GFR/1.73 sq M.predicted among non-blacks MDRD (S/P/Bld) [Vol rate/Area] > 60 mL/Min [facility] Hematocrit Auto (Bld) [Volum e fraction]Ordered By: Hermes Kennedy on 12-26-2022 Hematocrit (Bld) [Volume fraction] 38.3 % 34.0-46.4 [facility] Hemoglobin [Mass/volume] in BloodOrdered By: Hermes Kennedy on 12-26-2022 Hemoglobin (Bld) [Mass/Vol] 12.4 g/dL 11.8-15.4 [facility] Leukocytes [#/volume] correc rob for nucleated erythrocytes in Blood by Automated counOrdered By: Hermes Kennedy on 12-26-2022 WBC corrected for nucl RBC Auto (Bld) [#/Vol] 6.4 10*3/uL 3.8-11.6 [facility] Lymphocytes Auto (Bld) [#/Vo l]Ordered By: Hermes Kennedy on 12-26-2022 Lymphocytes (Bld) [#/Vol] 2.2 10*3/uL 1.00-4.8 [facility] Lymphocytes/100 WBC Auto (Bl d)Ordered By: Hermes Kennedy on 12-26-2022 Lymphocytes/100 WBC (Bld) 34.9 % . [facility] MCH Auto (RBC) [Entitic mass ]Ordered By: Hermes Kennedy on 12-26-2022 MCH (RBC) [Entitic mass] 29.5 pg 24.7-34.3 [facility] MCHC Auto (RBC) [Mass/Vol]Or dered By: Hermes Kennedy on 12-26-2022 MCHC (RBC) [Mass/Vol] 32.3 g/dL 32.0-35.0 [facility] MCV Auto (RBC) [Entitic vol] Ordered By: Hermes Kennedy on 12-26-2022 MCV (RBC) [Entitic vol] 91.2 fL 80-100 [facility] Monocytes Auto (Bld) [#/Vol] Ordered By: Hermes Kennedy on 12-26-2022 Monocytes (Bld) [#/Vol] 0.5 10*3/uL 0.0-0.8 [facility] Monocytes/100 WBC Auto (Bld) Ordered By: Hermes Kennedy on 12-26-2022 Monocytes/100 WBC (Bld) 8.3 % . [facility] Neutrophils Auto (Bld) [#/Vo l]Ordered By: Hermes Kennedy on 12-26-2022 Neutrophils (Bld) [#/Vol] 3.5 10*3/uL 1.8-7.7 [facility] Neutrophils/100 WBC Auto (Bl d)Ordered By: Hermes Kennedy on 12-26-2022 Neutrophils/100 WBC (Bld) 54.0 % . [facility] No Panel InformationOrdered By: Hermes Kennedy on 12-26-2022 Estimated GFR () > 60 mL/Min [facility] Comment on above: GFR estimated refere nce range: According to KDOQI guidelines, <60 ml/min/1.73m2 is sufficient to diagnose a patient with chronic kidney disease. Pharmacy Creatinine Clearance (Chem N/A [facility] Nucleated erythrocytes [Pres ence] in Blood by Automated countOrdered By: Hermes Kennedy on 12-26-2022 Nucleated RBC Auto Ql (Bld) 0.2 /100{WBC} 0-0.5 [facility] Platelet mean volume Auto (B ld) [Entitic vol]Ordered By: Hermes Kennedy on 12-26-2022 Platelet mean volume (Bld) [Entitic vol] 8.5 fL 6.3-10.7 [facility] Platelets Auto (Bld) [#/Vol] Ordered By: Hermes Kennedy on 12-26-2022 Platelets (Bld) [#/Vol] 218 10*3/uL 150-450 [facility] RBC Auto (Bld) [#/Vol]Ordere d By: Hermes Kennedy on 12-26-2022 RBC (Bld) [#/Vol] 4.20 10*6/uL 3.60-5.00 [facility] Serum or plasma anion gap de terminationOrdered By: Hermes Kennedy on 12-26-2022 Anion gap [Moles/Vol] 10.0 mmol/L 6.0-15.0 [facility] Serum or plasma calcium marce urement (mass/volume)Ordered By: Hermes Kennedy on 12-26-2022 Calcium [Mass/Vol] 9.1 mg/dL 8.2-10.2 [facility] Serum or plasma chloride william surement (moles/volume)Ordered By: Hermes Kennedy on 12-26-2022 Chloride [Moles/Vol] 104 mmol/L 95-114 [facility] Serum or plasma glucose marce urement (mass/volume)Ordered By: Hermes Kennedy on 12-26-2022 Glucose [Mass/Vol] 80 mg/dL 70-100 [facility] Comment on above: ADA recommended refe rence rangeRandom Glucose Reference Range is dependent on time and content of last meal. Glucose of more than 200 mg/dL in a nonstressed, ambulatory subject supports the diagnosis of Diabetes Mellitus. Serum or plasma potassium me asurement (moles/volume)Ordered By: Hermes Kennedy on 12-26-2022 Potassium [Moles/Vol] 4.3 mmol/L 3.5-5.1 [facility] Serum or plasma sodium measu rement (moles/volume)Ordered By: Hermes Kennedy on 12-26-2022 Sodium [Moles/Vol] 139 mmol/L 136-146 [facility] Serum or plasma total carbon dioxide measurement (moles/volume)Ordered By: Hermes Kennedy on 12-26-2022 CO2 [Moles/Vol] 29.3 mmol/L 22.0-30.0 [facility] Serum or plasma urea nitroge n measurement (mass/volume)Ordered By: Hermes Kennedy on 12-26-2022 Urea nitrogen [Mass/Vol] 21 mg/dL 9-23 [facility] WBC Auto (Bld) [#/Vol]Ordere d By: Hermes Kennedy on 12-26-2022 WBC (Bld) [#/Vol] 6.4 10*3/uL 3.8-11.6 [facility] CULTURE URINEon 04-05-2022 CULTURE URINE Culture Observations : NO GROWTH. Normal [facility] Comment on above: Performed By: #### U RCX #### [facility] [address] [place] [address] Dr. Mojgan Daily UA RANDOM W/MICROSCOPICon BACTERIA NONE SEEN Normal NONE SEEN [facility] Comment on above: Performed By: #### U AMIC #### [facility] [address] [place] [address] Dr. Mojgan Daily Bilirubin Ql (U) Negative Normal NEGATIVE [facility] Comment on above: Performed By: #### U AMIC #### [facility] [address] [place] [address] Dr. Mojgan Daily CA OX CRYSTALS FEW Normal [facility] Comment on above: Performed By: #### U AMIC #### [facility] [address] [place] [address] Dr. Mojgan Daily CAST NONE SEEN Normal NONE SEEN [facility] Comment on above: Performed By: #### U AMIC #### [facility] [address] [place] [address] Dr. Mojgan Daily Clarity (U) CLEAR Normal CLEAR [facility] Comment on above: Performed By: #### U AMIC #### [facility] [address] [place] [address] Dr. Mojgan Daily Color (U) LT. YELLOW Normal YELLOW [facility] Comment on above: Performed By: #### U AMIC #### [facility] [address] [place] [address] [address] Mojgan Daily Crystals LM Nom (Urine sed) SEEN Abnormal NONE SEEN [facility] Comment on above: Performed By: #### U AMIC #### [facility] [address] [place] [address] [address] Mojgan Daily Epithelial cells LM Ql (Urine sed) NONE SEEN Normal NONE SEEN /RARE [facility] Comment on above: Performed By: #### U AMIC #### [facility] [address] [place] [address] [address] Mojgan Daily Glucose Ql (U) Negative Normal NEGATIVE [facility] Comment on above: Performed By: #### U AMIC #### [facility] [address] [place] [address] [address] Mojgan Daily Hemoglobin Ql (U) Negative Normal NEGATIVE [facility] Comment on above: Performed By: #### U AMIC #### [facility] [address] [place] [address] [address] Mojgan Daily Ketones Ql (U) Negative Normal NEGATIVE [facility] Comment on above: Performed By: #### U AMIC #### [facility] [address] [place] [address] [address] Mojgan Daily LEUKOCYTES SMALL Abnormal NEGATIVE [facility] Comment on above: Performed By: #### U AMIC #### [facility] [address] [place] [address] [address] Mojgan Daily MUCOUS NONE SEEN Normal NONE SEEN [facility] Comment on above: Performed By: #### U AMIC #### [facility] [address] [place] [address] [address] Mojgan Daily Nitrite Ql (U) Negative Normal NEGATIVE [facility] Comment on above: Performed By: #### U AMIC #### [facility] [address] [place] [address] [address] Mojgan Daily pH (U) 5.0 [pH] Normal 5-9 [facility] Comment on above: Performed By: #### U AMIC #### [facility] [address] [place] [address] [address] Mojgan Daily RBC NONE SEEN Abnormal 0-2 [facility] Comment on above: Performed By: #### U AMIC #### [facility] [address] [place] [address] [address] Mojgan Daily SPEC GRAVITY 1.025 Normal 1.005-<=1.0 25 [facility] Comment on above: Performed By: #### U AMIC #### [facility] [address] [place] [address] [address] Mojgan Daily UA PROTEIN Negative Normal NEGATIVE/ TRACE [facility] Comment on above: Performed By: #### U AMIC #### [facility] [address] [place] [address] [address] Mojgan Daily URIC ACID CRYSTALS RARE Normal [facility] Comment on above: Performed By: #### U AMIC #### [facility] [address] [place] [address] Dr. oMjgan Daily Urobilinogen Qn (U) 0.2 {Amanuel'U}/dL Normal 0.2 - 1. 0 [facility] Comment on above: Performed By: #### U AMIC #### [facility] [address] [place] [address] Dr. Mojgan Daily WBC 2-5 Abnormal NONE SEEN [facility] Comment on above: Performed By: #### U AMIC #### [facility] [address] [place] [address] Dr. Mojgan Daily MG MAMM SCREEN 3D RUPAL CADon 03-27-2022 MG MAMM SCREEN 3D RUPAL CAD Patient: KARUNA REYNAGA Exam Date: 03/27/2022 : 1945 Gender:F Ordering : DR JAMAL ALVAREZ Admission #: [id number] Family : Order #: [id number] CLICK HERE TO VIEW EXAM RADIOLOGY REPORT [...] Treatments None Family Cancers None LOCATION: [facility] BREAST COMPOSITION: Almost entirely fatty. [...] MD on 03/27/2022 at 14:10 Normal [facility] Comprehensive metabolic 2000 panelon 02-03-2022 Albumin [Mass/Vol] 4.0 g/dL 3.9 - 4.9 g/dL [facility] ALP [Catalytic activity/Vol] 55 U/L 34 - 123 U/L [facility] ALT [Catalytic activity/Vol] 16 U/L 7 - 38 U/L [facility] Anion gap [Moles/Vol] 10 mmol/L 9 - 18 mmol/L [facility] AST [Catalytic activity/Vol] 16 U/L 13 - 35 U/L [facility] Bilirubin [Mass/Vol] 0.3 mg/dL 0.2 - 1 .3 mg/dL [facility] Calcium [Mass/Vol] 9.4 mg/dL 8.5 - 10. 2 mg/dL [facility] Chloride [Moles/Vol] 107 mmol/L High 97 - 10 5 mmol/L [facility] CO2 [Moles/Vol] 28 mmol/L 22 - 30 mmol/L [facility] Creatinine [Mass/Vol] 0.81 mg/dL 0.58 - 0.96 mg/dL [facility] Estimated Glomerular Filtration Rate 75 mL/min/1.73m >=60 mL/min/1.73 [facility] Glucose [Mass/Vol] 102 mg/dL High 74 - 99 mg/dL [facility] Potassium [Moles/Vol] 4.5 mmol/L 3.7 - 5.1 mmol/L [facility] Protein [Mass/Vol] 6.7 g/dL 6.3 - 8.0 g/dL [facility] Sodium [Moles/Vol] 145 mmol/L High 136 - 144 mmol/L [facility] Urea nitrogen [Mass/Vol] 22 mg/dL High 7 - 21 mg/dL [facility] Office Visit (Cardiology)on 10-21-2021 Follow-up visit Diagnoses/Problems Assessed Pre-operative cardiovascular examination (V72.81) (Z01.810) Sinus bradycardia (427.89) (R00.1) Class 1 obesity with body mass index (BMI) of 30.0 to 30.9 in adult (278.00,V85.30) (E66.9,Z68.30) Former smoker (V15.82) (Z87.891) Quit 1980 Orders Class 1 obesity with body mass index (BMI) of 30.0 to 30.9 in adult Healthy Weight Tips; Status:Complete - Retrospective Authorization; Done: [id number] Pre-operative cardiovascular examination IO EKG Electrocardiogram- 12 Lead; Status:Complete; Done: [id number] SocHx: Former smoker Tobacco Use Screening; Status:Complete; Done: [id number] Patient Instructions Follow up as needed only Patient may proceed with surgery Dr. Kennedy By signing my name below, I, Kalia Davenport LPNScribe, attest that this documentation has been prepared [...] negative for complaint. Vitals Vital Signs Recorded: [id number] 11:08AMRecorded: 61Vkq1182 11:07AM Ydnhfjvu919, LUE, Viqkyqy636, LUE, Sitting Wrmqawvyc55, LUE, Dgoacpf90, LUE, Sitting Heart Rate58, Apical Height4 ft 10 in Dmxrqu222 lb BMI (more content not included)... Normal [employer] Tobacco Screening.on 021 Fall risk assessment a) No falls within the last year [facility] [employer] [place] 250 DO Work Phone: Tobacco use status CP b) No [facility] [employer] 250 DO Work Phone: XR Chest 2 [...] by Kole Nino on 10/13/2021 1530 Normal [facility] Specialist Vital Signs Date Time Vital Sign Value Performing Clinician Facility 04-16-2024 16:24-0400 Diastolic blood pressure 66 mm[Hg] DO Jamal Alvarez Work Phone: [facility] 04-16-2024 16:24-0400 Heart rate 91 /min DO Jamal Antonio Work Phone: [facility] 04-16-2024 16:24-0400 Systolic blood pressure 133 mm[Hg] DO Jamal Alvarez Work Phone: [facility] 04-16-2024 16:00-0400 Body temperature 97.5 [degF] DO Jamal Alvarez Work Phone: [facility] 04-16-2024 16:00-0400 Respiratory rate 16 /min DO Jamal lAvarez Work Phone: [facility] 04-16-2024 16:00-0400 SaO2% (BldA) [Mass fraction] 98 % DO Jamal Alvarez Work Phone: [facility] 04-16-2024 06:00-0400 Body weight 64.5 kg DO Jamal Alvarez Work Phone: [facility] 04-15-2024 14:38-0400 Body height 144.78 cm DO Jamal Alvarez Work Phone: [facility] 04-13-2024 20:50-0400 Diastolic blood pressure 88 mm[Hg] DO Jamal Alvarez Work Phone: [facility] 04-13-2024 20:50-0400 Heart rate 74 /min DO Jamal Alvarez Work Phone: [facility] 04-13-2024 20:50-0400 Respiratory rate 18 /min DO Jamal Alvarez Work Phone: [facility] 04-13-2024 20:50-0400 SaO2% (BldA) [Mass fraction] 92 % DO Jamal Alvarez Work Phone: [facility] 04-13-2024 20:50-0400 Systolic blood pressure 131 mm[Hg] DO Jamal Alvarez Work Phone: [facility] 04-13-2024 15:54-0400 Body height 149.86 cm DO Jamal Alvarez Work Phone: [facility] 04-13-2024 15:54-0400 Body temperature 97.9 [degF] DO Jamal Alvarez Work Phone: [facility] 04-13-2024 15:54-0400 Body weight 66.5 kg DO Jamal Alvarez Work Phone: [facility] 03-10-2024 13:13-0400 Body height 143.5 cm Judit Lora MD Work Phone: [facility] 03-10-2024 13:13-0400 Body mass index (BMI) [Ratio] 32.2 kg/m2 Judit Lora MD Work Phone: [facility] 03-10-2024 13:130400 Body weight 66.32 kg Judit Lora MD Work Phone: [facility] 03-10-2024 13:13-0400 Diastolic blood pressure 78 mm[Hg] Judit Lora MD Work Phone: [facility] 03-10-2024 13:13-0400 Heart rate 74 /min Judit Lora MD Work Phone: [facility] 03-10-2024 13:13-0400 Systolic blood pressure 118 mm[Hg] Judit Lora MD Work Phone: [facility] 02-22-2024 09:21-0400 Body height 142.24 cm DO Jamal Alvarez Work Phone: [facility] 02-22-2024 09:21-0400 Body weight 65.77 kg DO Jamal Alvarez Work Phone: [facility] 02-21-2024 10:45-0400 Body height 142.24 cm DO Jamal Alvarez Work Phone: [facility] 02-21-2024 10:45-0400 Body mass index (BMI) [Ratio] 33.8 kg/m2 DO Jamal Alvarez Work Phone: [facility] 02-21-2024 10:45-0400 Body weight 68.49 kg DO Jamal Alvarez Work Phone: [facility] 02-21-2024 10:45-0400 Diastolic blood pressure 79 mm[Hg] DO Jamal Antonio Work Phone: [facility] 02-21-2024 10:45-0400 Heart rate 65 /min DO Jamal Antonio Work Phone: [facility] 02-21-2024 10:45-0400 Systolic blood pressure 131 mm[Hg] DO Jamal Antonio Work Phone: [facility] 02-13-2024 18:46-0400 Body height 142.24 cm DO Jamal Alvarez Work Phone: [facility] 02-13-2024 18:46-0400 Body mass index (BMI) [Ratio] 33.9 kg/m2 DO Jamal Alvarez Work Phone: [facility] 02-13-2024 18:46-0400 Body temperature 97.1 [degF] DO Jamal Alvarez Work Phone: [facility] 02-13-2024 18:46-0400 Body weight 68.6 kg DO Jamal Alvarez Work Phone: [facility] 02-13-2024 18:46-0400 Diastolic blood pressure 80 mm[Hg] DO Jamal Alvarez Work Phone: [facility] 02-13-2024 18:46-0400 Heart rate 74 /min DO Jamal Alvarez Work Phone: [facility] 02-13-2024 18:46-0400 Respiratory rate 18 /min DO Jamal Alvarez Work Phone: [facility] 02-13-2024 18:46-0400 SaO2% (BldA) [Mass fraction] 94 % DO Jamal Antonio Work Phone: [facility] 02-13-2024 18:46-0400 Systolic blood pressure 110 mm[Hg] DO Jamal Antonoi Work Phone: [facility] 12-28-2023 13:29-0500 Body temperature 97.59 [degF] Ubaldo Dubose MD Work Phone: [facility] 12-28-2023 13:29-0500 Body weight 79.38 kg Ubaldo Dubose MD Work Phone: [facility] 12-28-2023 13:29-0500 Diastolic blood pressure 65 mm[Hg] Ubaldo Dubose MD Work Phone: [facility] 12-28-2023 13:29-0500 Heart rate 67 /min Ubaldo Dubose MD Work Phone: [facility] 12-28-2023 13:29-0500 Respiratory rate 16 /min Ubaldo Dubose MD Work Phone: [facility] 12-28-2023 13:29-0500 SaO2% (BldA) [Mass fraction] 97 % Ubaldo Dubose MD Work Phone: [facility] 12-28-2023 13:29-0500 Systolic blood pressure 137 mm[Hg] Ubaldo Dubose MD Work Phone: [facility] 10-21-2021 11:08-0500 Diastolic blood pressure 70 mm[Hg] Jamal Alvarez Work Phone: [facility] [employer] 250 DO Work Phone: 10-21-2021 11:08-0500 Systolic blood pressure 132 mm[Hg] Jamal Alvarez Work Phone: [facility] 250 DO Work Phone: 10-21-2021 11:07-0500 Body height 147.32 cm Jamal Alvarez Work Phone: [facility] 250 DO Work Phone: 10-21-2021 11:07-0500 Body mass index (BMI) [Ratio] 30.31 kg/m2 Jamal Alvarez Work Phone: [facility] [place] [facility] 250 DO Work Phone: 10-21-2021 11:07-0500 Body surface area Derived from formula 1.59 m2 Jamal Alvarez Work Phone: [facility] 250 DO Work Phone: 10-21-2021 11:07-0500 Body weight 65.77 kg Jamal Alvarez Work Phone: [facility] 250 DO Work Phone: 10-21-2021 11:07-0500 Diastolic blood pressure 70 mm[Hg] Jamal Alvarez Work Phone: [facility] [address] DO Work Phone: 10-21-2021 11:07-0500 Heart rate 58 /min Jamal Alvarez Work Phone: [facility] 250 DO Work Phone: 10-21-2021 11:07-0500 Systolic blood pressure 132 mm[Hg] Jamal Alvarez Work Phone: [facility] 250 DO Work Phone: Encounters Encounter Date Encounter Type Care Provider Facility Start: 08-13-2024 End: 08-13-2024 ambulatory JAMAL ALVAREZ Facility:[facility] Start: 08-13-2024 End: 08-13-2024 Patient encounter procedure Lisa William MD, PhD Work Phone: Neurology Comment on above: Focal epilepsy with impairment of consciousness, intractable (HCC) (Primary Dx) Start: 08-13-2024 End: 08-13-2024 Telemedicine consultation with patient Lisa William MD, PhD Work Phone: Neurology Start: 08-08-2024 End: 08-08-2024 Clinisync Result Encounter Jamal Alvarez DO Work Phone: [facility] Unsolicited Start: 08-08-2024 End: 08-08-2024 Clinisync Result Encounter Jamal Alvarez DO Work Phone: [facility] Unsolicited Start: 07-30-2024 End: 08-01-2024 Telephone encounter Lisa William MD, PhD Work Phone: Neurology Comment on above: Orders Start: 06-12-2024 End: 06-12-2024 ambulatory [facility] Start: 06-05-2024 Telephone encounter Ubaldo dawn MD Work Phone: Pulmonary Medicine Comment on above: Certifcate of Medica l Necessity Start: 05-05-2024 End: 05-05-2024 ambulatory Ubaldo Dubose MD Work Phone: [facility] Comment on above: Bronchiectasis witho ut complication (HCC) (Primary Dx); Yeast infection Start: 05-05-2024 End: 05-05-2024 Telemedicine consultation with patient Ubaldo Dubose MD Work Phone: [facility] Start: 04-30-2024 End: 04-30-2024 ambulatory JAMAL ALVAREZ Pulmonary Lab Comment on above: Spirometry Start: 04-30-2024 End: 04-30-2024 Patient encounter procedure [facility] [place] Work Phone: Pulmonary Lab Start: 04-24-2024 End: 04-24-2024 ambulatory GILBERT LOVETT Not Available Start: 04-22-2024 End: 04-22-2024 ambulatory JAMAL ALVAREZ Not Available Start: 04-22-2024 End: 04-22-2024 Patient encounter procedure Flex Juarez MD Work Phone: Neurosurgery Comment on above: Convulsions, unspeci fied convulsion type (HCC) (Primary Dx) Start: 04-22-2024 End: 04-22-2024 ambulatory DO Jamal Alvarez Work Phone: [facility] Work Phone: Start: 04-21-2024 Telephone encounter Flex Juarez MD Work Phone: Neurology Comment on above: Future Appointment ( NEW PT, [place], ANY (STOJIC? - PT PREF SUNIL/NIKHIL)) Start: 04-16-2024 End: 04-16-2024 Non-patient / Non-visit DO Jamal Alvarez Work Phone: [facility] Card[facility] Work Phone: Start: 04-13-2024 End: 04-16-2024 Evaluation and management of inpatient DO Jamal Alvarez Work Phone: [facility] [place] [facility] Work Phone: Start: 03-10-2024 End: 03-10-2024 ambulatory JAMALSHABBIR ALVAREZ Not Available Start: 03-10-2024 End: 03-10-2024 ambulatory [facility] Start: 03-10-2024 End: 03-10-2024 Office consultation new/estab patient 60 min Judit Lora MD Work Phone: [facility] Comment on above: Shortness of breath; Hyperlipidemia, unspecified hyperlipidemia type; Traumatic brain injury, with unknown loss of consciousness status, sequela ([facility]-HCC); BMI 32.0-32.9,adult; Former smoker; History of traumatic brain injury; Cough, unspecified type; Diabetes mellitus type II, non insulin dependent (Multi); Dysphasia; Abnormal lung sounds; Bronchiectasis without complication (Multi); Medication course changed Start: 03-03-2024 End: 03-03-2024 ambulatory Ubaldo Dubose MD Work Phone: [facility] Comment on above: Bronchiectasis witho ut complication (HCC) (Primary Dx); Aspiration pneumonitis (HCC); Traumatic brain injury with loss of consciousness, sequela (HCC) Start: 03-03-2024 End: 03-03-2024 Telemedicine consultation with patient Ubaldo Dubose MD Work Phone: [facility] Start: 02-26-2024 Telephone encounter Ubaldo dawn MD Work Phone: [facility] Comment on above: Appointment Received Outside Med ical Records Start: 02-25-2024 End: 02-25-2024 Patient encounter procedure DO Jamal Alvarez Work Phone: [facility]CT Scan [facility] [place] Work Phone: Start: 02-25-2024 End: 02-25-2024 ambulatory DO Jamal Alvarez Work Phone: [facility] Work Phone: Start: 02-25-2024 End: 02-25-2024 ambulatory JAMAL ALVAREZ Not Available Start: 02-22-2024 Chart abstracting Yuridia Bourgeois [facility] Comment on above: Home nebulizer order Start: 02-22-2024 End: 02-22-2024 ambulatory DO Jamal Alvarez Work Phone: [facility] Work Phone: Start: 02-22-2024 End: 02-22-2024 Departed Referred DO Jamal Alvarez Work Phone: [facility] Work Phone: Start: 02-21-2024 End: 02-21-2024 ambulatory DO Jamal Alvarez Work Phone: [facility] Work Phone: Start: 02-21-2024 End: 02-21-2024 Discharged Recurring DO Jamal Alvarez Work Phone: [facility] [facility] Start: 02-21-2024 Registered Recurring DO Shelby Alvarez Work Phone: [facility] [facility] Start: 02-21-2024 End: 02-21-2024 ambulatory DO Jamal Alvarez Work Phone: [facility] Work Phone: Start: 02-21-2024 End: 02-21-2024 Patient encounter procedure DO Jamal Alvarez Work Phone: [facility] Gastroenterology Work Phone: Start: 02-19-2024 Registered Recurring DO Shelby Alvarez Work Phone: [facility] Start: 02-15-2024 Orders Only Ubaldo Peres rn, MD Work Phone: Pulmonary Medicine Comment on above: Bronchiectasis witho ut complication (HCC) (Primary Dx) Start: 02-13-2024 End: 02-13-2024 ambulatory DO Jamal Alvarez Work Phone: [facility] Work Phone: Start: 02-13-2024 End: 02-13-2024 Patient encounter procedure DO Jamal Alvarez Work Phone: [facility] Physician [facility] [place] Work Phone: Start: 02-13-2024 End: 02-13-2024 ambulatory IRVING DUVALL Not Available Start: 02-12-2024 Registered Recurring DO Shelby Alvarez Work Phone: [facility] Start: 01-23-2024 End: 01-23-2024 Patient encounter procedure DO Jamal Alvarez Work Phone: [facility] Work Phone: Start: 01-23-2024 End: 01-23-2024 ambulatory DO Jamal Alvarez Work Phone: [facility] Work Phone: Start: 01-22-2024 Telephone encounter Ubaldo dawn MD Work Phone: Pulmonary Medicine Comment on above: Received Outside Med [facility] Records Start: 01-14-2024 Registered Recurring DO Shelby Alvarez Work Phone: [facility] Start: 12-28-2023 End: 12-28-2023 ambulatory JAMAL ALVAREZ Facility:[facility] Start: 12-28-2023 End: 12-28-2023 Patient encounter procedure Ubaldo Dubose MD Work Phone: Pulmonary Medicine Comment on above: Bronchiectasis witho ut complication (HCC) (Primary Dx); Aspiration pneumonitis (HCC); Traumatic brain injury with loss of consciousness, sequela (HCC) Start: 12-27-2023 End: 12-27-2023 ambulatory JAMAL ALVAREZ Facility:[facility] Start: 12-27-2023 End: 12-27-2023 Subsequent hospital visit by physician Arrival Time Radiology Work Phone: Radiology [facility] Comment on above: Interstitial pulmona ry disease (HCC) [J84.9] Start: 12-25-2023 End: 12-25-2023 ambulatory ASH HEMPHILL Pulmonary Lab Comment on above: Spirometry Start: 12-25-2023 End: 12-25-2023 Patient encounter procedure [facility] [place] Work Phone: [facility] Start: 12-05-2023 End: 12-05-2023 ambulatory JAMAL ALVAREZ Not Available Start: 11-21-2023 End: 11-21-2023 Patient encounter procedure DO Jamal Alvarez Work Phone: [facility]-XRay [facility] Work Phone: Start: 11-21-2023 End: 11-21-2023 ambulatory DO Jamal Alvarez Work Phone: [facility] Work Phone: Start: 10-26-2023 End: 10-26-2023 ambulatory JAMAL ALVAREZ Not Available Start: 10-16-2023 End: 10-16-2023 ambulatory JESUS ROBERSON Not Available Start: 10-16-2023 End: 10-16-2023 Patient encounter procedure DO Jamal Alvarez Work Phone: [facility]Lab [place] Work Phone: Start: 10-16-2023 End: 12-12-2023 ambulatory DO Jamal Alvarez Work Phone: [facility] Work Phone: Start: 07-16-2023 End: 07-16-2023 ambulatory Jamal Alvarez Facility:[facility] Start: 02-10-2023 End: 02-10-2023 ambulatory BRUCE MACK . Facility:[facility] Start: 12-26-2022 End: 12-26-2022 ambulatory DO Jamal Alvarez Work Phone: [facility] Work Phone: Start: 12-26-2022 End: 12-26-2022 Patient encounter procedure DO Jamal Avlarez Work Phone: [facility] Work Phone: Start: 07-26-2022 Orders Only Everton Cummings cortney Work Phone: Hematology/Oncology Comment on above: Dermatophytosis of n ail (Primary Dx); Well controlled type 2 diabetes mellitus with neurological manifestations (HCC); Unspecified hypothyroidism Dermatophytosis of n ail (Primary Dx) Start: 04-05-2022 End: 04-05-[address] JAMAL ALVAREZ Facility: Start: 03-27-2022 End: 03-28-[address] JAMAL ALVAREZ Facility: Start: 02-03-2022 Orders Only Joanne Bullard RN Nick tology/Oncology Comment on above: Hypothyroidism, adul t (Primary Dx); 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); Mixed hyperlipidemia Start: 10-21-2021 Office consultation new/estab patient 60 min Jamal Alvarez Work Phone: [facility] 250 DO Work Phone: Start: 10-21-2021 Office outpatient ne w 45 minutes Jamal Alvarez Work Phone: [facility] 600 DO Work Phone: Patient encounter status Jamal Alvarez Work Phone: [facility] 250 DO Work Phone: Procedures Date Procedure Procedure Detail Performing Clinician Start: 08-08-2024 ALL CBC WITH AUTO DIFF Jamal Alvarez DO Work Phone: Start: 04-30-2024 Spmtry w/vc expirato ry miriam w/wo mxml vol vntj Ubaldo Dubose MD Work Phone: Start: 04-16-2024 Radionuclide myocard ial perfusion stress study DO Jamal Alvarez Work Phone: Start: 04-15-2024 MRI of head DO Jamal Alvarez Work Phone: Start: 04-14-2024 XR pre/post mri xray DO Jamal Alvarez Work Phone: Start: 04-13-2024 CT angiography of head DO Jamal Alvarez Work Phone: Start: 04-13-2024 CT angiography of ne ck vessels DO Jamal Alvarez Work Phone: Start: 04-13-2024 CT of head without contrast DO Jamal Alvarez Work Phone: Start: 04-13-2024 Plain chest X-ray DO Noe Alvarez Work Phone: Start: 03-10-2024 ECG 12-LEAD JUDIT GARCIA Start: [...] X-ray DO Noe Alvarez Work Phone: Start: 12-27-2023 Ct thorax [...] Author Start: 02-19-2027 Diabetes Screening Diabetes Screening [facility] Start: 02-12-2026 Glaucoma screening Diabetes: Retinopathy Screening [facility] Start: 10-26-2025 Screening for osteoporosis Bone Density Scan [facility] Start: 07-28-2025 Diabetes Screening Diabetes Screening [facility] Start: 02-21-2025 Thyroid stimulating hormone measurement TSH Level [facility] Start: 02-21-2025 Urine screening for protein Diabetes: Urine Protein Screening [facility] Start: 02-19-2025 Lipid panel Lipid Panel [facility] Start: 02-03-2025 DIABETES SCREEN DIABETES SCREEN [facility] Start: 10-08-2024 End: 10-08-2024 Patient encounter procedure 10/08/2024 2:00 PM [facility] Neurology [address] [place] [id number] Lisa William MD, PhD [address] [place] [address] New Consult Neurology Comment on above: New Consult Start: 09-08-2024 End: 09-08-2024 ambulatory 09/08/2024 12:30 PM [facility] [address] [place] [address] Ubaldo Dubose MD [address] [place] [address] [facility] Pul[facility] Comment on above: MYC VV Start: 08-25-2024 End: 08-25-2024 Patient encounter procedure 08/25/2024 3:15 PM EDT Office Visit [facility] [address] [place] [phone] Jamal Alvarez DO [address] [place] [address] [facility] Start: 07-06-2024 Covid-19 Vaccine ( season) Covid-19 Vaccine ( season) [facility] Start: 07-06-2024 Covid-19 Vaccine () Covid-19 Vaccine () [facility] Start: 07-06-2024 Influenza vaccination Influenza Vaccine (#1) [facility] Start: 06-12-2024 End: 06-12-2024 Patient encounter procedure 06/12/2024 2:45 PM EDT Office Visit [facility] [address] [facility] [address] [place] [address] Judit Lora MD [address] [facility] [address] [place] [address] [facility] Start: 05-21-2024 Hemoglobin A1c measurement Diabetes: Hemoglobin A1C [facility] Start: 05-05-2024 End: 05-05-2024 ambulatory 05/05/2024 3:30 PM EDT [facility] Pulmonology [facility] [address] [place] [address] Ubaldo Dubose MD [address] [place] [address] [facility] Comment on above: MYC VV Start: 05-05-2024 End: 05-05-2024 Patient encounter procedure 05/05/2024 3:30 PM EDT Office Visit [facility] [address] [place] [address] Ubaldo Dbuose MD [address] [place] [address] Est pt scheduled per Dr. Dubose 4mo fu pft's [facility] Comment on above: Est pt scheduled per Dr. Dubose 4mo fu pft's Start: 04-30-2024 End: 04-30-2024 ambulatory Pulmonary Lab Comment on above: Est pt scheduled per Dr. Dubose 4mo fu pft's [employer] Start: 04-16-2024 End: 04-16-2024 Patient encounter procedure 04/16/2024 12:30 PM EDT Appointment [facility] [address] [phone] [facility] Start: 04-16-2024 End: 04-16-2024 [facility] Start: 04-15-2024 [facility] Start: 04-14-2024 End: 04-14-2024 [facility] Start: 04-14-2024 [facility] Start: 04-13-2024 Referral to neurologist [facility] Start: 04-13-2024 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 [facility] Start: 04-13-2024 Hospital admission [facility] Start: 04-13-2024 [facility] Start: 04-13-2024 Telemedicine consultation with patient [facility] Start: 04-13-2024 [facility] Start: 03-17-2024 End: 03-10-2025 Basic metabolic 2000 panel - Serum or Plasma Basic Metabolic Panel Lab Routine Shortness of breath Medication course changed Expected: 03/17/2024 (Approximate), Expires: 03/10/2025 [facility] Work Phone: Comment on above: Expected: 03/17/2024 (Approximate), Expi res: 03/10/2025 Start: 03-13-2024 Esophagogastroduodenoscopy DH EGD (Not Applicable) [facility] Start: 03-10-2024 End: 03-10-2025 Natriuretic peptide B [Mass/volume] in Blood B-Type Natriuretic Peptide Lab Routine Shortness of breath Cough, unspecified type Abnormal lung sounds Expected: 03/10/2024 (Approximate), Expires: 03/10/2025 [facility] Work Phone: Comment on above: Expected: 03/10/2024 (Approximate), Expi res: 03/10/2025 Start: 03-10-2024 End: 03-10-2026 US Heart Transthoracic Transthoracic Echo Complete Echocardiography Routine Shortness of breath Cough, unspecified type Abnormal lung sounds Expected: 03/10/2024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 García PA-C [facility] 07-30-2024 Telephone encounter Note 04/22/[address] Juarez ======= routed to REJI 1 to see if long EEG order can be placed or will visit with Dr. William need to be completed first. Sowmya Gresham RN [facility] 07-30-2024 Telephone encounter Note Patient called back today, and indicated that she's going to have this done at [facility] and they need the order to specifically state how long you want them to do the test for, so please include a time frame on the order. Then fax over to [facility] at: [phone] [facility] 07-30-2024 Telephone encounter Note Nadira is calling Lisa William MD, PhD today to request the order for the EEG to be mailed to the home address. They need to get this done at a location closer to home. Patient has been identified by name and birthdate. Duration of symptoms: N/A Person calling: daughter: Nadira Call patient at: on cell [phone] (home) [phone] (cell) Was an appointment scheduled: No Closing statement: Results or non-symptom based questions: Thank you for calling [facility], your call will be returned within the next business day. Yanick Douglass [facility] 06-05-2024 Telephone encounter Note Fax received on 06/05/2024 from [employer], regarding CMN. Fax placed on provider desk for review/signature. Unsigned copy scanned into patient chart. [facility] 06-05-2024 Miscellaneous Notes Fax received on 06/05/2024 from [employer], regarding CMN. Fax placed on provider desk for review/signature. Unsigned copy scanned into patient chart. documented in this encounter [facility] 05-05-2024 History of Presen t illness Narrative Images from the original note were not included. VIRTUAL VISIT PROGRESS NOTE This is a virtual visit using Check-Cap Zoom Video Visit. It required patient-provider interaction for the medical decision making as documented below. I have communicated my name and active licensure. The patient's identity and physical location were verified at the time of this visit. Either the patient or their legal pharmaceutical sales representative has been informed of the risks and benefits of -- and alternatives to -- treatment through a remote evaluation and consents to proceed with the evaluation remotely. Respiratory [place] Karuna Reynaga is a 79 year old female here for a follow up with the [facility] Interstitial Lung Disease Team for bronchiectasis [...] 35.0-39.9 without comorbidity) Overactive bladder Senile osteoporosis ([facility]) Transient cerebral ischemia, unspecified type Type 2 diabetes mellitus without complication ([facility]) No past surgical history on file. SOCIAL [...] myself) Laboratory Data Laboratory data reviewed in [facility] Everywhere. Pulmonary Function Data PFT available since [...] May 05, 2024) documented in this encounter [facility] 05-05-2024 Note HNO ID: [id number] Author: UBALDO DUBOSE MD Service: ? Author Type: Physician Type: Progress Notes Filed: 05/05/2024 16:40 Note Text: VIRTUAL VISIT PROGRESS NOTE This is a virtual visit using OpenDNSom Video Visit. It required patient-provider interaction for the medical decision making as documented below. I have communicated my name and active licensure. The patient's identity and physical location were verified at the time of this visit. Either the patient or their legal pharmaceutical sales representative has been informed of the risks and benefits of -- and alternatives to -- treatment through a remote evaluation and consents to proceed with the evaluation remotely. Respiratory [place] Karuna Reynaga is a 79 year old female here for a follow up with the [facility] Interstitial Lung Disease Team for bronchiectasis [...] mouth every 12 (more content not included)... [facility] 04-30-2024 Note HNO ID: [id number] Author: YAMINI LAN RRT Service: ? Author Type: Registered Resp Therapist Type: Progress Notes Filed: 04/30/2024 13:18 Note Text: PULM FUNCTION: Provider: Ubaldo Dubose MD Spirometry: 1 DLCO: [address] [facility] 04-30-2024 History of Presen t illness Narrative PULM FUNCTION: Provider: Ubaldo Dubose MD Spirometry: 1 DLCO: 1 documented in this encounter [facility] 04-22-2024 Note HNO ID: [id number] Author: CHARITO CROW APRN.MANUFACTURING TECHNOLOGIST Service: ? Author Type: Nurse Practitioner Type: Progress Notes Filed: 04/22/2024 10:10 Note Text: [facility] Review of Records Patient: Karuna Reynaga Address: [address] [place] [address] Impression: Review of records for Karuna Reynaga, [...] ASMs PRIOR EVALUATIONS: CT Brain WO 04/15/2024 ([facility]) IMPRESSION: ATROPHY AND CHRONIC ISCHEMIC CHANGES. NO ACUTE INTRACRANIAL FINDINGS EEG Routine 04/15/2024 ([facility]) Routine EEG showed bifrontal slowing but no epileptiform discharges or seizures MRI Brain 04/15/2024 ([facility]) MRI brain April 15, 2024 without contrast shows bilateral frontal lobe encephalomalacia, some other generalized atrophy, no acute intracranial findings REJI Recommendations: - EEG long - Visit with epileptologist - Additional testing to be considered by epilepsy clinicians Signed: Charito Crow APRN.MANUFACTURING TECHNOLOGIST April 22, [address] Juarez for review and recommendations. --------- Recommendations (as discussed with Dr. Juarez): - agree with reccomendations [facility] 04-22-2024 History of Presen t illness Narrative [facility] Review of Records Patient: Karuna Reynaga Address: [address] [place] [id number] Impression: Review of records for Karuna Reynaga, [...] ASMs PRIOR EVALUATIONS: CT Brain WO 04/15/2024 ([facility]) IMPRESSION: ATROPHY AND CHRONIC ISCHEMIC CHANGES. NO ACUTE INTRACRANIAL FINDINGS EEG Routine 04/15/2024 ([facility]) Routine EEG showed bifrontal slowing but no epileptiform discharges or seizures MRI Brain 04/15/2024 ([facility]) MRI brain April 15, 2024 without contrast shows bilateral frontal lobe encephalomalacia, some other generalized atrophy, no acute intracranial findings REJI Recommendations: - EEG long - Visit with epileptologist - Additional testing to be considered by epilepsy clinicians Signed: Charito Crow APRN.CNP April 22, [address] Juarez for review and recommendations. --------- MD Recommendations (as discussed with Dr. uJarez): - agree with reccomendations documented in this encounter [facility] 04-21-2024 Telephone encounter Note OSH imaging/records received: April 21, 2024 -OFFICE NOTES -EEG -MRI BRAIN -CT BRAIN -CARE EVERYWHERE ([place], [place]) Gwen De Souza April 21, 2024 4:19 PM [facility] 04-21-2024 Miscellaneous Notes OSH imaging/records received: April 21, 2024 -OFFICE NOTES -EEG -MRI BRAIN -CT BRAIN -CARE EVERYWHERE ([place], [place]) Gwen De Souza April 21, 2024 4:19 PM [facility] Initial Intake Interview April 21, 2024 4:05 PM Caller: Nadira Relationship to pt: Daughter Patient name: Karuna Reynaga Age: [age] year old Address: [address] [place] [address] (home) Insurance: Payor: [facility] MEDICARE / Plan: [facility] MEDICARE ADVANTAGE PPO / Product Type: PPO / Referred by: Self (word of mouth) Referring to: Any Reason for Evaluation: further evaluation and treatment Previously evaluated at: [facility] [place] [place] Tel: N/A Fax: N/A Age & [...] or No Date Facility EEG Yes 04/2024 [place], [place]) Video EEG No MRI brain Yes 04/2024 [place], [place]) CT brain Yes 04/2024 [place]) fMRI brain No PET No Ictal [...] Gwen De Souza documented in this encounter [facility] 04-21-2024 Telephone encounter Note [facility] Initial Intake Interview April 21, 2024 4:05 PM Caller: Nadira Relationship to pt: Daughter Patient name: Karuna Reynaga Age: [age] year old Address: [address] [place] [address] (home) Insurance: Payor: [facility] MEDICARE / Plan: [facility] MEDICARE ADVANTAGE PPO / Product Type: PPO / Referred by: Self (word of mouth) Referring to: Any Reason for Evaluation: further evaluation and treatment Previously evaluated at: [place], [place] Tel: N/A Fax: N/A Age & [...] or No Date Facility EEG Yes 04/2024 [place], [place]) Video EEG No MRI brain Yes 04/2024 [place], [place]) CT brain Yes 04/2024 [place]) fMRI brain No PET No Ictal [...] been requested? No Signed: Gwen De Souza [facility] 04-16-2024 Procedure note [facility] 04-16-2024 Progress note Note Date/Time April 16, 2024 1:04pm [facility] [address] [place] [address] Neurology Progress Note Signed Patient: Karuna Reynaga MR#: [id number] : 1945 Acct:[id number] Age/Sex: 79 / F Adm Date: 4 Loc: 4P Room: [address] [place] [address] Type: ADM IN Attending Dr: Renan Murguia [...] Recommendations: ST Recommendations ST Recommended Services at [facility] Discharge Assessment/Plan (1) Syncope: Qualifiers: Syncope type: [...] <Electronically signed by Andry Nugent DO> 04/16/24 5418 [facility] Work Phone: 1(671) 695-417106-11-2024 Progress note Author W Deshawn [facility] April 15, 2024 4:44pm Note Date/Time April 15, 2024 4:44 pm [facility] [address] [place] [address] Cardiology Progress Note Signed Patient: Karuna Reynaga MR#: [id number] : 1945 Acct:[id number] Age/Sex: 79 / F Adm Date: 4 Loc: Room: [address] [place] [address] Type: ADM IN Attending Dr: Renan Murguia MD Copies to: ~ Date of Service: 04/15/2024 Subjective Principal diagnosis: Near syncopal episode; troponin elevation Interval history: Ms. Reynaga is a 79 year old female that was seen in cardiology consultation at the request of the hospitalist and in conjunction with second-year medical claims specialist Dr. Hernandez for elevated troponin levels. Patient is seen and evaluated with the medical claims specialist, I agree with her evaluation and [...] on Lasix one month ago by her splicing machine operator automatic, Dr. Lora, for possible heart failure. Her [...] % (Auto) 46.5 Lymph % (Auto) 36.1 Stephens % (Auto) 9.8 Eos % (Auto) 6.8 Baso % (Auto) 0.8 Nucleat RBC Rel Count 0.2 Neut # (Auto) 2.6 Lymph # (Auto) 2.0 Stephens # (Auto) 0.6 Eos # (Auto) 0.4 [...] neurologic workup Documented By: Vic Hess DO 04/15/241642 Signed By: <Electronically signed by Vic Hess DO> 04/15/241643 [facility] Work Phone: 1(972) 796-121306-11-2024 Progress note Author Andry Nugent [facility] April 15, 2024 4:01pm Note Date/Time April 15, 2024 4:01 pm [facility] [address] [place] [address] Neurology Progress Note Signed Patient: Karuna Reynaga MR#: [id number] : 1945 Acct:[id number] Age/Sex: 79 / F Adm Date: 4 Loc: 4 Room: [address] [place] [address] Type: ADM IN Attending Dr: Renan Murguia [...] Recommendations: ST Recommendations ST Recommended Services at [facility] Discharge Assessment/Plan (1) Syncope: Qualifiers: Syncope type: unspecified Qualified Code(s): R55 - Syncope and collapse Plan CONSULT REASON: Syncope SUBJECTIVE: Doing about the same as yesterday. No recurrence of any syncopal event. Her daughter says that she is typically pretty tangential at baseline and talks about some fairly fsm-jau-dubf things, and sometimes does not even remember [...] follow Documented By: Andry Nugent DO 04/15/24 1556 Signed By: <Electronically signed by Andry Nugent DO> 04/15/24 1606 [facility] Work Phone: 1(342) 721-133606-11-2024 Progress note Author Renan Murguia [facility] April 15, 2024 1:13pm Note Date/Time April 15, 2024 1:14 pm [facility] [address] [place] [address] Hospitalist Progress Note Signed Patient: Karuna Reynaga MR#: [id number] : 1945 Acct:[id number] Age/Sex: 79 / F Adm Date: 4 Loc: Room: [address] [place] [address] Type: ADM IN Attending Dr: Renan Murguia [...] 04/14/24 09:00 04/15/24 09:10 Pantoprazole 40 Mg Tablet.Dr PO 04/14/25 08:59 40 mg BID MIRYAM [...] As above Documented By: Renan Murguia MD 04/15/24 1312 Signed By: <Electronically signed by Renan Murguia MD> 04/15/24 1313 [facility] Work Phone: 1(618) 397-565206-10-2024 Consult note Author Andry Nugent [facility] April 14, 2024 5:14pm Note Date/Time April 14, 2024 1:15 pm [facility] [address] [place] [address] Neurology Consult Note Signed Patient: Karuna Reynaga MR#: [id number] : 1945 Acct:[id number] Age/Sex: 79 / F Adm Date: 4 Loc: Room: [address] [place] [address] Type: ADM IN Attending Dr: Renan Murguia MD Copies to: DO Renan Jurado MD Jeffrey A Garman, DO~ HPI Consult Date: 04/14/24 Shuttle Bus Driver: Andry Nugent DO [facility] Medical History (Updated 04/14/24 @ 17:14 [...] Jamal Bird M.D.04/13/2024 4:26 PM Dictation Location: [facility]- Head CT 04/13/24 15:53 IMPRESSION: No acute findings. 4:05 PM 04/13/24 Impression dictated by: Jamal Bird M.D.04/13/2024 4:11 PM Dictation Location: [facility]- Head CTA 04/13/24 15:53 IMPRESSION: No occlusion, critical stenosis or dissection of the extracranial orintracranial circulation. Impression dictated by: Jamal Bird M.D.04/13/2024 4:31 PM Dictation Location: [place] [address] Therapy Recommendations Therapy Recommendations: ST Recommendations ST Recommended Services at [facility] Discharge Assessment/Plan (1) Syncope: Qualifiers: Syncope type: [...] follow Documented By: Andry Nugent DO 04/14/24 1957 Signed By: <Electronically signed by Andry Nugent DO> 04/14/24 8284 [facility] Work Phone: [phone]) 745-327906-10-2024 Consult note Author W Deshawn [facility] April 14, 2024 4:31pm Note Date/Time April 14, 2024 3:25 pm [facility] [address] [place] [address] Cardiology Consult Note Signed Patient: Karuna Reynaga MR#: [id number] : 1945 Acct:[id number] Age/Sex: 79 / F Adm Date: 4 Loc: Room: [address] [place] [address] Type: ADM IN Attending Dr: Renan Murguia MD Copies to: MD Jamal Lanier DO Samantha Mason, DO, RES Vic Hess DO~ Cardiology HPI History of Present Illness Consult Date: 04/14/24 Reason for Consult: NSTEMI HPI: Ms. Reynaga is a 79 year old female that was seen in cardiology consultation at the request of the hospitalist and in conjunction with second-year medical claims specialist Dr. Hernandez for elevated troponin levels. Patient is seen and evaluated with the medical claims specialist, I agree with her evaluation and [...] on Lasix one month ago by her splicing machine operator automatic, Dr. Lora, for possible heart failure. Her [...] negative unless noted below or in HPI [facility] Medical History (Updated 04/14/24 @ 15:22 [...] Lymph # (Auto) 1.8 2.3 (1.00-4.8) x10E3/uL Stephens # (Auto) 0.5 0.5 (0.0-0.8) x10E3/uL Eos [...] ml @ 999 mls/hr IV .Q1H1M ONE Rx#:[id number] Oral 240 / 240 Output: Urine 150 [...] DO> 04/14/24 1631 <Electronically signed by DO JAUN Hernandez> 04/14/24 1525 [facility] Work Phone: [phone]) 848-688806-10-2024 Progress note Author Renan Murguia [facility] April 14, 2024 1:29pm Note Date/Time April 14, 2024 1:29 pm [facility] [address] [place] [address] Hospitalist Progress Note Signed Patient: Karuna Reynaga MR#: [id number] : 1945 Acct:[id number] Age/Sex: 79 / F Adm Date: 4 Loc: Room: [address] [place] [address] Type: ADM IN Attending Dr: Renan Murguia [...] Dose Route Start Last Admin Trade Name Ionq PRN Reason Stop Dose Admin Bupropion HCl [...] 04/14/24 09:00 04/14/24 11:51 Pantoprazole 40 Mg Tablet.Dr PO 04/14/25 08:59 Not Given BID MIRYAM [...] As above Documented By: Renan Murguia MD 04/14/24 1327 Signed By: <Electronically signed by Renan Murguia MD> 04/14/24 1329 [facility] Work Phone: 1(722) 371-489506-10-2024 History and physical note Author Albert Palacio [facility] April 13, 2024 11:03pm Note Date/Time April 13, 2024 7:12p m [facility] [address] [place] [address] Hospitalist H&P Signed Patient: Karuna Reynaga MR#: [id number] : 1945 Acct:[id number] Age/Sex: 79 / F Adm Date: 4 Loc: Room: [address] [place] [address] Type: ADM IN Attending Dr: Albert Palacio DO Copies to: DO Albert Ayers DO~ HPI DATE OF EXAMINATION: 04/13/24 CHIEF COMPLAINT: [...] episode and possible NSTEMI. Arrival to the MedSur floor the patient is alert and pleasant [...] although there are fewprior EKGs to compare. [facility] Medical History (Updated 04/13/24 @ 17:47 [...] % (Auto) 29.5 % (.) 04/13/24 15:55 Stephens % (Auto) 7.4 % (.) 04/13/24 15:55 Eos % (Auto) 4.3 % (.) 04/13/24 15:55 Baso % (Auto) 0.8 % (.) 04/13/24 15:55 Nucleat RBC Rel Count 0.1 /100 WBC (0-0.5) 04/13/24 15:55 Neut # (Auto) 3.6 x10E3/uL (1.8-7.7) 04/13/24 15:55 Lymph # (Auto) 1.8 x10E3/uL (1.00-4.8) 04/13/24 15:55 Stephens # (Auto) 0.5 x10E3/uL (0.0-0.8) 04/13/24 15:55 [...] <Electronically signed by Albert Palacio DO> 04/13/24 6530 [facility] Work Phone: [phone]) 647-628705-06-2024 History of Present illness Narrative* Judit Lora MD - 03/10/2024 12:45 PM EDT Referred by Dr. Multani ref. provider found [...] injury. Daughter is the medical power of insurance defense attorney. Patient toma full code at this [...] TIMES A DAY TRUEplus Lancets 33 gauge [facility] USE TO TEST ONCE DAILY EVERY MORNING. [...] than 60, hemoglobin 12.5 hematocrit 40 platelets [id number] Assessment/Plan Diagnoses and all orders for this [...] with unknown loss of consciousness status, sequela ([facility]) BMI 32.0-32.9,adult Former smoker History of traumatic [...] February 2024-diffuse groundglass interstitial prominence basilar atelectasis/scarring 80-kqli-qbga history of smoking quit 1979 PFTs not [...] my direction and personally dictated by me. Ihave reviewed the chart and agree that the record accurately reflects my personal performance of the history, physical exam, discussion and plan. [facility] Work Phone: 1([phone]) 787-904705-06-2024 Instructions* Patient Instructions* Raulito Draper MA - [...] time of your visit. documented [facility] Work Phone: 1(547) 449-217104-29-2024 History of Present illness Narrative* Ubaldo Dubose MD - 03/03/2024 12:30 PM EDT VIRTUAL VISIT PROGRESS NOTE This is a virtual visit using OpenDNSom Video Visit. It required patient- provider interaction for the medical decision making as documented below. I have communicated my name and active licensure. The patient's identity and physical location wereverified at the time of this visit. Either the patient or their legal pharmaceutical sales representative has been informed of the risks [...] 35.0-39.9 without comorbidity) Overactive bladder Senile osteoporosis ([facility]) Transient cerebral ischemia, unspecified type Type 2 diabetes mellitus without complication ([facility]) No past surgical history on file. Current [...] in 3 months Ubaldo Dubose MD Pager: [phone] March 02, 2024 12:06 PM [facility] NoteHNO ID: [id number] Author: UBALDO DUBOSE MD Service: ? Author Type: Physician Type: Progress Notes Filed: 03/03/2024 13:19 Note Text: VIRTUAL VISIT PROGRESS NOTE This is a virtual visit using Hello Inct Zoom Video Visit. It required patient-provider interaction for the medical decision making as documented below. I have communicated my name and active licensure. The patient's identity and physical location were verified at the time of this visit. Either the patient or their legal pharmaceutical sales representative has been informed of the risks [...] type Type 2 diabetes mellitus without complication ([facility]) No past surgical history on file. Current [...] Types: Cigarettes Quit date: (more content not included)...[facility] 02-26-2024 Telephone encounter Note* Telephone Encounter - Eileen Lucas RN - 02/26/2024 3:57 PM EDT Received outside imaging reports via electronic fax. Uploaded to scanned documents for provider to review. [facility]04-23-2024 Miscellaneous Notes* Telephone Encounter - Eileen Lucas RN - 02/26/2024 3:57 PM EDT Received outside imaging reports via electronic fax. Uploaded to scanned documents for provider to review. documented in this encounterBar[facility]24 Telephone encounter Note * Telephone Encounter - Kortney Linn PSS - 02/26/2024 1:53 PM EDT Patient is scheduled on 03/03/2024 at 12:30pm. [facility]04-23-2024 Miscellaneous Notes* Telephone Encounter - Kortney Linn PSS - 02/26/2024 1:53 PM EDT Patient is scheduled on 03/03/2024 at 12:30pm. * Telephone Encounter - Kortney Linn PSS - 02/26/2024 12:13 PM EDT Called patient to offer virtual appointment with Dr. Dubose on 03/03/2024 at 12:30pm. No answer, unable to leave voicemail. documented in this encounterBarber[facility]04-[facility]24 Telephone encounter Note * Telephone Encounter - Kortney Linn PSS - 02/26/2024 12:13 PM EDT Called patient to offer virtual appointment with Dr. Dubose on 03/03/2024 at 12:30pm. No answer, unable to leave voicemail. [facility]04-19-2024 NoteHNO ID: [id number] Author: YURIDIA BOURGEOIS RRT Service: ? Author Type: Registered Resp Therapist Type: Progress Notes Filed: 02/22/2024 13:48 Note Text: [facility] unable to provide nebulizer. Order and office notes faxed to [employer] [phone], ph [phone]. Yuridia Bourgeois [facility]RT[facility] History of Present illness Narrative* Yuridia Bourgeois RRT - 02/22/2024 1:47 PM EDT [facility] unable to provide nebulizer. Order and office notes faxed to [employer] [phone], ph [phone]. Yuridia Bourgeois PERFORMANCE TEST ARCHITECT documented in this encounterBarberton [facility] Hospital04-18-2024 Evaluation note* Author Flex [facility] Authored February 21, 2024 11: 21am 79-year-old [...] dysphagia then determine the need for PPI [facility] Work Phone: 1([phone]) 221-795904-12-2024 NoteHNO ID: [id number] Author: DARREL CARRANZA RRT Service: ? Author Type: Registered Resp Therapist Type: Progress Notes Filed: 02/15/2024 17:02 Note Text: Faxed nebulizer rx to [facility] in [place] ph [phone], fax [phone] [address] [facility] [facility] History of Present illness Narrative* Darrel Carranza RRT - 02/15/2024 5:00 PM EDT Faxed nebulizer rx to [facility] in [place] ph [phone], fax [phone] Darrel Carranza RRT documented in this encounterBarberton [facility] Hospital03-19-2024 Miscellaneous Notes* Telephone Encounter - John Madison - 01/22/2024 2:46 PM EDT Images from the original note were not included. Imported external notification of equipment delivery from [employer], dated 01/16/2024. Please allow time delay for documents to appear in nVoq (Scanned Documents Tab). Images can take up to 24 hours to appear in Epic. documented [facility] Instructions* Patient Instructions* Ubaldo Dubose MD [...] (I will send a prescription to a [employer] company) How to Use the Acapella Assure [...] should not be placed in the automatic quality intern, boiled or bleached. 4. Rinse in clean water. 5. Shake off excess water. 6. Drain dry the device. Place each piece downward or rest the unit on its side. 7. Replace the mouthpiece when the unit is completely dry and ready for use. documented in this encounter[facility] History of Present illness Narrative* Ubaldo Dubose MD - 12/28/2023 1:30 PM EST Images from the original note were not included. Respiratory [place] Karuna Reynaga is a 78 year old female here for evaluation by the [facility] Interstitial Lung Disease Team. Consultation requested [...] myself) Laboratory Data Laboratory data reviewed in [facility] Everywhere. Pulmonary Function Data [...] her how to use it but her dzkrwelq-jc-ehd states that she will likely not be [...] 2023 5:04 PM CC: documented in this encounterBarberton [facility] Hospital02-23-2024 NoteHNO ID: [id number] Author: UBALDO DUBOSE MD Service: ? Author Type: Physician Type: Progress Notes Filed: 2024 13:33 Note Text: Respiratory [place] Karuna Reynaga is a 78 year old female here for evaluation by the [facility] Interstitial Lung Disease Team. Consultation requested [...] Thy (more content not included)... [facility]02-22-2024 NoteHNO ID: [id number] Author: DAMASO GUTHRIE RT(R) Service: ? Author [...] PATIENT PRESENTS WITH AN IMPLANTABLE OR ATTACHED IRONER OR PRESSER: No RADIOLOGY DEPARTMENT: CT; Exam(s) Completed: Chest PERIPHERAL IV DATA: Not applicable SIGNED BY: RT Reginald(R) December 27, 2023 1:09 [facility]02-22-2024 Procedure note* Damaso Guthrie RT(R) - [...] PATIENT PRESENTS WITH AN IMPLANTABLE OR ATTACHED IRONER OR PRESSER: No RADIOLOGY DEPARTMENT: CT; Exam(s) Completed: Chest PERIPHERAL IV DATA: Not applicable SIGNED BY: RT Reginald(R) December 27, 2023 1:09 PM [facility]02-22-[facility] Procedure note* Damaso Guthrie RT(R) - [...] PATIENT PRESENTS WITH AN IMPLANTABLE OR ATTACHED IRONER OR PRESSER: No RADIOLOGY DEPARTMENT: CT; Exam(s) Completed: Chest PERIPHERAL IV DATA: Not applicable SIGNED BY: RT Reginald(R) December 27, 2023 1:09 PM documented in this encounterBarberton [facility]02-20-2024 NoteHNO ID: [id number] Author: YAMINI LAN RRT Service: ? Author Type: Registered Resp Therapist Type: Progress Notes Filed: 12/25/2023 15:11 Note Text: Pulmonary Function [facility] History of Present illness Narrative* Yamini Lan RRT - 12/25/2023 3:10 PM EST Pulmonary Function Test documented in this encounterBarberton [facility] Hospital02-20-2024 NoteHNO ID: [id number] Author: YAMINI LAN RRT Service: ? Author Type: Registered Resp Therapist Type: Progress Notes Filed: 12/25/2023 15:00 Note Text: PULM FUNCTION SMARTBLOCK: Provider: Ubaldo Dubose MD Spirometry: 1 DLCO: [facility] History of Present illness Narrative * Yamini Lan RRT - 12/25/2023 2:58 PM EST PULM FUNCTION SMARTBLOCK: Provider: Ubaldo Dubose MD Spirometry: 1 DLCO: 1 documented in this encounterBarberton [facility] Hospital04-18-2023 Evaluation note* Author Flex [facility] Authored February 21, 2024 11: 21am 79-year-old [...] dysphagia then determine the need for PPI [facility] Work Phone: [phone] NoteHISTORY: Bone density screening. COMPARISON: None available. 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) Mixed hyperlipidemia documented in this encounter [facility]* Diagnosis Dermatophytosis of nail- Primary Well controlled type 2 diabetes mellitus with neurological manifestations (HCC) Type II or unspecified type diabetes mellitus with neurological manifestations, not stated as uncontrolled Unspecified hypothyroidism documented in this encounter [facility]* Diagnosis Dermatophytosis of nail- Primary documented in this encounter [facility]* Diagnosis ILD (interstitial lung disease) (HCC)- Primary Postinflammatory pulmonary fibrosis Shortness of breath documented in this encounter [facility]* Diagnosis Bronchiectasis without complication (HCC)- Primary Bronchiectasis without acute exacerbation Aspiration pneumonitis (HCC) Pneumonitis due to inhalation of food or vomitus Traumatic brain injury with loss of consciousness, sequela (HCC) documented in this encounter [facility]* Diagnosis Onset Date Resolution Status Bronchitis noneactive [facility] Work Phone: Evaluation note* Diagnosis Bronchiectasis without complication (HCC)- Primary Bronchiectasis without acute exacerbation documented in this encounter [facility]* Diagnosis Bronchiectasis without complication (HCC)- Primary Bronchiectasis without acute exacerbation [facility]* Diagnosis Bronchiectasis without complication (HCC)- Primary Bronchiectasis without acute exacerbation Aspiration pneumonitis (HCC) Pneumonitis due to inhalation of food or vomitus Traumatic brain injury with loss of consciousness, sequela (HCC) documented in this encounter [facility]* Diagnosis Shortness of breath Hyperlipidemia, unspecified [...] Medication course changed documented in this encounter [facility] Work Phone: Evaluation note* Diagnosis Convulsions, unspecified convulsion type (HCC)- Primary documented in this encounter [facility]* Diagnosis Bronchiectasis without complication (HCC) Bronchiectasis without acute exacerbation documented [facility]* Diagnosis Bronchiectasis without complication (HCC)- Primary Bronchiectasis without acute exacerbation documented [facility] this encounter [facility]* Diagnosis Bronchiectasis without complication (HCC)- Primary Bronchiectasis without acute exacerbation Yeast infection Candidiasis of unspecified site documented in this encounter [facility] note* Diagnosis Interstitial pulmonary disease (HCC) Postinflammatory pulmonary fibrosis documented in this encounter [facility] note* Diagnosis Convulsions, unspecified convulsion type (HCC)- Primary documented in this encounter [facility]* Diagnosis Focal epilepsy with impairment of consciousness, intractable (HCC)- Primary Localization-related (focal) (partial) 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, with intractable epilepsy documented in this encounter [facility] Author Vic Hess [facility] April 16, 2024 6:05pm Note Date/Time April 16, 2024 6:05 pm [facility] [address] [place] [address] Cardiology Progress Note Signed Patient: Karuna Reynaga MR#: [id number] : 1945 Acct:[id number] Age/Sex: 79 / F Adm Date: 4 Loc: 4 Room: 9D8884-5 Type: ADM IN Attending Dr: Renan Murguia MD Copies to: ~ Date of Service: 04/16/2024 Subjective Principal diagnosis: Near syncopal episode; troponin elevation Interval history: Ms. Reynaga is a 79 year old female that was seen in cardiology consultation at the request of the hospitalist and in conjunction with second-year medical claims specialist Dr. Hernandez for elevated troponin levels. Patient is seen and evaluated with the medical claims specialist, I agree with her evaluation and [...] on Lasix one month ago by her splicing machine operator automatic, Dr. Lora, for possible heart failure. Her [...] % (Auto) 66.9 Lymph % (Auto) 22.3 Stephens % (Auto) 6.4 Eos % (Auto) 3.6 Baso % (Auto) 0.8 Nucleat RBC Rel Count 0.0 Neut # (Auto) 5.0 Lymph # (Auto) 1.7 Stephens # (Auto) 0.5 Eos # (Auto) 0.3 [...] <Electronically signed by Vic Hess DO> 04/16/241804 [facility] Work Phone: Reason for referral (narrative)* Outpatient Procedure (Routine) - Authorized Specialty Diagnoses / Procedures Referred By Contac t Referred To Contact [facility] Diagnoses Bronchiectasis without complication (HCC) Procedures LUNG DIFFUSION CAPACITY (DLCO) DIFFUSING CAPACITY Ubaldo Dubose MD [address] [place] [address] [address] Referral ID Status Reason Start Date Expiration Date Visits Requested Visits Authorized [id number] Authorized Auto-Generat ed Referral 12/28/2023 01/26/2025 1 1 * Outpatient Procedure (Routine) - Authorized Specialty Diagnoses / Procedures Referred By Carlitoac t Referred To Contact [facility] Diagnoses Bronchiectasis without complication (HCC) Procedures SPIROMETRY BASELINE ONLY SPMTRY W/VC EXPIRATORY MIRIAM W/WO MXML VOL VNTJ Ubaldo Dubose MD [address] [place] [address] [address] Referral ID Status Reason Start Date Expiration Date Visits Requested Visits Authorized [id number] Authorized Auto-Generat ed Referral 12/28/2023 01/26/2025 1 1 [facility] for referral (narrative)* Outpatient Procedure (Routine) - Pending Review Specialty Diagnoses / Procedures Referred By Contac t Referred To Contact [facility] Diagnoses Convulsions, unspecified convulsion type (HCC) Procedures EPIL EEG LONG EEG EXTENDED MONITORING 61-119 MINUTES ELECTROENCEPHALOGRAM REC COMA/SLEEP ONLY Charito Crow, RN HEART.MANUFACTURING TECHNOLOGIST [address] [place] [address] [place] [address] Referral ID Status Reason Start Date Expiration Date Visits Requested Visits Authorized [id number] Pending Review Auto-Generat ed Referral 04/22/2024 04/22/2025 1 1 [facility] ([facility]ative)* Outpatient Procedure (Routine) - New Request Specialty Diagnoses / Procedures Referred By Marie t Referred To Contact [facility] Diagnoses Convulsions, unspecified convulsion type (HCC) Procedures EPIL EEG LONG EPIL EEG LONG EEG EXTENDED MONITORING 61-119 MINUTES ELECTROENCEPHALOGRAM REC COMA/SLEEP ONLY Melvi García PA-C [address] [facility] [address] [place] [address] [place] [address] Referral ID Status Reason Start Date Expiration Date Visits Requested Visits Authorized [id number] New Request Auto-Generat ed Referral 07/30/2024 07/30/2025 1 1 T [facility] Family History Unknown Family Member Name Dates [...] Referral Specialty Diagnoses / Procedures Referred By Contac t Referred To Contact Cardiology Diagnoses Shortness of breath Cough, unspecified type Abnormal lung sounds Procedures Transthoracic Echo Complete MS ECHO TTHRC R-T 2D W/WOM-MODE COMPL SPEC&COLR D Judit Lora MD [address] [facility] [address] [place] [address] Referral ID Status Reason Start Date Expiration Date Visits Requested Visits Authorized [id number] Pending Review Perform Procedure 03/10/2024 03/10/2025 1 1 Specialty Diagnoses / Procedures Referred By Contac t Referred To Contact Diagnoses Shortness of breath Procedures ECG 12 Lead Judit Lora MD [address] [address] Referral ID Status Reason Start Date Expiration Date V isits Requested Visits Authorized [id number] Authorized 03/10/2024 03/10/2025 1 1 Specialty Diagnoses / Procedures Referred By Contac t Referred To Contact Cardiology Diagnoses Shortness of breath Procedures Follow Up In Cardiology Judit Lora MD [address] [facility] [address] [place] [address] Judit Lora MD [address] [address] Referral ID Status Reason Start Date Expiration Date V isits Requested Visits Authorized [id number] Authorized 03/10/2024 03/10/2025 1 1 Specialty Diagnoses / Procedures Referred By Contac t Referred To Contact CT IMAGING Diagnoses Interstitial pulmonary disease (HCC) Procedures CT CHEST WO IVCON DIAGNOSTIC COMPUTED TOMOGRAPHY THORAX W/O NICHOLERST Dee Leal, RN HEART.MANUFACTURING TECHNOLOGIST [address] [place] [address] [place] [address] Referral ID Status Reason Start Date Expiration Date V isits Requested Visits Authorized [id number] Closed Auto-Generate d Referral 12/11/2023 01/09/2025 1 [...] section and content) DATE CREATED AUTHOR 10/21/2021 [facility] dical Specialist DATE CREATED AUTHOR AUTHOR'S ORGANIZ ATION 10/22/2021 [facility] DATE CREATED AUTHOR AUTHOR'S ORGANIZ ATION 02/12/2023 [facility] DATE CREATED AUTHOR AUTHOR'S ORGANIZ ATION 04/26/2024 [facility] dical Specialists EPIC DATE CREATED AUTHOR AUTHOR'S ORGANIZ ATION 05/20/2024 [facility] ysician Group DATE CREATED AUTHOR AUTHOR'S ORGANIZ ATION [facility] DATE CREATED AUTHOR AUTHOR'S ORGANIZ ATION 08/15/[address] [facility] Source Comments (unrecognize d section and content) In the event this informatio n is protected by the Federal Confidentiality of Alcohol and Drug Abuse Patient Records regulations: The Federal rules restrict any use of the information to criminally investigate or prosecute any alcohol or drug abuse patient.[facility] HospitalIn the event this information is protected by the Federal Confidentiality of Alcohol and Drug Abuse Patient Records regulations: The Federal rules restrict any use of the information to criminally investigate or prosecute any alcohol or drug abuse patient.[facility] HospitalIn the event this information is protected by the Federal Confidentiality of Alcohol and Drug Abuse Patient Records regulations: The Federal rules restrict any use of the information to criminally investigate or prosecute any alcohol or drug abuse patient.[facility] HospitalIn the event this information is protected by the Federal Confidentiality of Alcohol and Drug Abuse Patient Records regulations: The Federal rules restrict any use of the information to criminally investigate or prosecute any alcohol or drug abuse patient.[facility] HospitalIn the event this information is protected by the Federal Confidentiality of Alcohol and Drug Abuse Patient Records regulations: The Federal rules restrict any use of the information to criminally investigate or prosecute any alcohol or drug abuse patient.[facility] HospitalIn the event this information is protected by the Federal Confidentiality of Alcohol and Drug Abuse Patient Records regulations: The Federal rules restrict any use of the information to criminally investigate or prosecute any alcohol or drug abuse patient.[facility] HospitalIn the event this information is protected by the Federal Confidentiality of Alcohol and Drug Abuse Patient Records regulations: The Federal rules restrict any use of the information to criminally investigate or prosecute any alcohol or drug abuse patient.[facility] HospitalIn the event this information is protected by the Federal Confidentiality of Alcohol and Drug Abuse Patient Records regulations: The Federal rules restrict any use of the information to criminally investigate or prosecute any alcohol or drug abuse patient.[facility] HospitalIn the event this information is protected by the Federal Confidentiality of Alcohol and Drug Abuse Patient Records regulations: The Federal rules restrict any use of the information to criminally investigate or prosecute any alcohol or drug abuse patient.[facility] HospitalIn the event this information is protected by the Federal Confidentiality of Alcohol and Drug Abuse Patient Records regulations: The Federal rules restrict any use of the information to criminally investigate or prosecute any alcohol or drug abuse patient.[facility] HospitalIn the event this information is protected by the Federal Confidentiality of Alcohol and Drug Abuse Patient Records regulations: The Federal rules restrict any use of the information to criminally investigate or prosecute any alcohol or drug abuse patient.[facility] HospitalIn the event this information is protected by the Federal Confidentiality of Alcohol and Drug Abuse Patient Records regulations: The Federal rules restrict any use of the information to criminally investigate or prosecute any alcohol or drug abuse patient.[facility] HospitalIn the event this information is protected by the Federal Confidentiality of Alcohol and Drug Abuse Patient Records regulations: The Federal rules restrict any use of the information to criminally investigate or prosecute any alcohol or drug abuse patient.[facility] HospitalIn the event this information is protected by the Federal Confidentiality of Alcohol and Drug Abuse Patient Records regulations: The Federal rules restrict any use of the information to criminally investigate or prosecute any alcohol or drug abuse patient.[facility] HospitalIn the event this information is protected by the Federal Confidentiality of Alcohol and Drug Abuse Patient Records regulations: The Federal rules restrict any use of the information to criminally investigate or prosecute any alcohol or drug abuse patient.[facility] HospitalIn the event this information is protected by the Federal Confidentiality of Alcohol and Drug Abuse Patient Records regulations: The Federal rules restrict any use of the information to criminally investigate or prosecute any alcohol or drug abuse patient.[facility] HospitalIn the event this information is protected by the Federal Confidentiality of Alcohol and Drug Abuse Patient Records regulations: The Federal rules restrict any use of the information to criminally investigate or prosecute any alcohol or drug abuse patient.[facility] HospitalIn the event this information is protected by the Federal Confidentiality of Alcohol and Drug Abuse Patient Records regulations: The Federal rules restrict any use of the information to criminally investigate or prosecute any alcohol or drug abuse patient.[facility] HospitalIn the event this information is protected by the Federal Confidentiality of Alcohol and Drug Abuse Patient Records regulations: The Federal rules restrict any use of the information to criminally investigate or prosecute any alcohol or drug abuse patient.[facility] HospitalIn the event this information is protected by the Federal Confidentiality of Alcohol and Drug Abuse Patient Records regulations: The Federal rules restrict any use of the information to criminally investigate or prosecute any alcohol or drug abuse patient.[facility] HospitalIn the event this information is protected by the Federal Confidentiality of Alcohol and Drug Abuse Patient Records regulations: The Federal rules restrict any use of the information to criminally investigate or prosecute any alcohol or drug abuse patient.[facility] HospitalIn the event this information is protected by the Federal Confidentiality of Alcohol and Drug Abuse Patient Records regulations: The Federal rules restrict any use of the information to criminally investigate or prosecute any alcohol or drug abuse patient.[facility] Care Teams (unrecognized sec tion and content) Hand Quilter Relationship Specialty Start Date End Date Ash Hemphill, DO [address] [place] [address] PCP - General 05/25/09 Hand Quilter Relationship Specialty Start Date End Date Ash Hemphill, DO [address] [place] [address] PCP - General 05/25/09 Hand Quilter Relationship Specialty Start Date End Date Ash Hemphill, DO [address] [place] [address] PCP - General 05/25/09 Team Status: Inactive [...] November 21, 2023 End: November 21, 2023 Hand Quilter Relationship Specialty Start Date End Date Jamal Alvarez DO [address] [facility] [place] [address] PCP - General Internal Medicine 12/25/23 Hand Quilter Relationship Specialty Start Date End Date Jamal Alvarez DO [address] [place] [address] PCP - General Internal Medicine 12/25/23 Hand Quilter Relationship Specialty Start Date End Date Jamal Alvarez DO [address] [place] [address] PCP - General Internal Medicine 12/25/23 Team [...] Provider Active S tart: February 13, 2024 Hand Quilter Relationship Specialty Start Date End Date Jamal Alvarez DO [address] [place] [address] PCP - General Internal Medicine 12/25/23 Team Status: Active Member Role Status Dates Jamal Alvarez DO Primary Care Provide r, Attending Provider Active Start: February 19, 2024 Team Status: Inactive Member Role Status Dates Jamal Alvarez DO Primary Care Provider Active Start: February 21, 2024 End: February 21, 2024 Flex Ramos MD Attending Provider Active Start: February 21, 2024 End: February 21, 2024 Hand Quilter Relationship Specialty Start Date End Date Jamal Alvarez DO [address] [place] [address] PCP - General Internal Medicine 12/25/23 Team Status: Active Member Role Status Dates Jamal Alvaerz DO Primary Care Provide r, Attending Provider Active Start: February 21, 2024 Team Status: Inactive Member Role Status Dates Jaaml Alvarez DO Primary Care Provider Active Start: February 25, 2024 End: February 25, 2024 Jose Luis Lockhart , TEAGAN MSN ANP-C Attending Provider Act darrin Start: February 25, 2024 End: February 25, 2024 Hand Quilter Relationship Specialty Start Date End Date Jamal Alvarez DO [address] [facility] [address] [place] [address] PCP - General Internal Medicine 12/25/23 Hand Quilter Relationship Specialty Start Date End Date Jamal Alvarez DO [address] [facility] [address] [place] [address] PCP - General Internal Medicine 12/25/23 Hand Quilter Relationship Specialty Start Date End Date Jamal Alvarez DO [address] [facility] [address] [place] [address] PCP - General Internal Medicine 12/25/23 Hand Quilter Relationship Specialty Start Date End Date Jamal Alvarez DO [address] [facility] [address] [place] [address] PCP - General 11/05/99 Team Status: Active [...] 2023 End: April 16, 2024 Emilee Perez [facility] Other Provider Active Sta rt: April 13, [...] Other Provider Active Start: April 16, 2024 Suhkwinder Luu MD Other Provider Active St art: April 16, 2024 Oleg Milton MD Other Provider Active Start: April 16, 2024 Adilene Navarro , RN HEART Other Provider Active Start : April 16, 2024 Judit Lora MD Other Provider Active Start: J une 2023 Mireille Jorge MD Other Provider Active Start: April 16, 2024 Anthony Riddle MD Other Provider Active Start: J une 2023 Emilee Perez , PAN RECLAIM PROCESSOR- Other Provider Active Sta rt: April 16, [...] February 22, 2024 End: February 22, 2024 Hand Quilter Relationship Specialty Start Date End Date Jamal Alvarez DO [address] [place] [address] PCP - General Internal Medicine 12/25/23 Team Status: Inactive Member Role Status Dates Jamal Alvarez DO Primary Care Provider Active Start: April 22, 2024 End: April 22, 2024 Valdez Castro MD Attending Provider Active S tart: April 22, 2024 End: April 22, 2024 Hand Quilter Relationship Specialty Start Date End Date Jamal Alvarez DO [address] [place] [address] PCP - General Internal Medicine 12/25/23 Team [...] 2023 End: April 16, 2024 Emilee Perez [facility] [facility]- Other Provider Active Sta rt: April 13, [...] 16, 2024 End: April 16, 2024 Vic eHss DO Other Provider Active Start : April [...] End: April 16, 2024 Emilee Perez , [facility]- Other Provider Active Sta rt: April 16, 2024 End: April 16, 2024 Andry Nugent DO Other Provider Active Start: April 16, 2024 End: April 16, 2024 Inocencio Mg MD Attending Provider Activ e Start: April 16, 2024 End: April 16, 2024 Hand Quilter Relationship Specialty Start Date End Date Jamal Alvarez DO [address] [place] [address] PCP - General Internal Medicine 12/25/23 Hand Quilter Relationship Specialty Start Date End Date Jamal Alvarez DO [address] [place] [address] PCP - General Internal Medicine 12/25/23 Hand Quilter Relationship Specialty Start Date End Date Jamal Alvarez DO [address] [facility] [address] [place] [address] PCP - General Internal Medicine 03/13/23 Irving Duvall DO [address] [place] [address] Referring Physician Ophthalmology 02/22/24 Ubaldo Dubose MD [address] [place] [address] Referring Physician Pulmonary Disease 02/22/24 Valdez Castro MD [address] [facility] [address] [place] [address] Referring Physician Pediatric Pulmonology 02/22/24 Flex Ramos MD [address] [place] [address] [address] [place] [address] Referring Physician Gastroenterology 02/22/24 Judit Lora MD [address] [facility], [address] [place] [address] Referring Physician Cardiology 02/22/24 Reason for Visit (unrecogniz ed section and content) Reason Comments Spirometry Specialty Diagnoses / Procedures Referred By Contac t Referred To Contact [facility] Diagnoses ILD (interstitial lung disease) (HCC) Shortness of breath Procedures SPIROMETRY WITH DILATOR IF OBSTRUCTED BRNCDILAT RSPSE SPMTRY PRE&POST-BRNCDILAT ADMN Dee Leal, RN HEART.MANUFACTURING TECHNOLOGIST [address] [facility] [address] [place] [address] Respiratory [place] [address] [place] [address] Referral ID Status Reason Start Date Expiration Date V isits Requested Visits Authorized [id number] Closed Auto-Generate d Referral 12/11/2023 01/09/2025 1 1 Specialty Diagnoses / Procedures Referred By Contac t Referred To Contact [facility] Diagnoses ILD (interstitial lung disease) (HCC) Shortness of breath Procedures LUNG DIFFUSION CAPACITY (DLCO) DIFFUSING CAPACITY Dee Leal APRN.MANUFACTURING TECHNOLOGIST [address] [facility] [address] [place] [address] Respiratory [place] [address] [place] [address] Referral ID Status Reason Start Date Expiration Date V isits Requested Visits Authorized [id number] Closed Auto-Generate d Referral 12/11/2023 01/09/2025 1 1 Reason Comments New Reason Comments Received Outside Medical Records Reason Comments Home nebulizer order Reason Comments Appointment Reason Comments Follow Up Reason Comments Establish Care Sob, fatigue,weaknes s Specialty Diagnoses / Procedures Referred By Contac t Referred To Contact Diagnoses Shortness of breath Procedures ECG 12 Lead Judit Lora MD [address] [facility] [address] [place] [address] Referral ID Status Reason Start Date Expiration Date V isits Requested Visits Authorized [id number] Authorized 03/10/2024 03/10/2025 1 1 Reason Comments Future Appointment [place], [place], ANY ([facility]? - PT PREF [place]) Specialty Diagnoses / Procedures Referred By Contac t Referred To Contact [facility] Diagnoses Bronchiectasis without complication (HCC) Procedures SPIROMETRY BASELINE ONLY SPMTRY W/VC EXPIRATORY MIRIAM W/WO MXML VOL VNTJ Ubaldo Dubose MD [address] [place] [address] [address] Referral ID Status Reason Start Date Expiration Date V isits Requested Visits Authorized [id number] Closed Auto-Generate d Referral 12/28/2023 01/26/2025 1 1 Specialty Diagnoses / Procedures Referred By Contac t Referred To Contact [facility] Diagnoses Bronchiectasis without complication (HCC) Procedures LUNG DIFFUSION CAPACITY (DLCO) DIFFUSING CAPACITY Ubaldo Dubose MD [address] [place] [address] Respiratory [place] [address] [place] [address] Referral ID Status Reason Start Date Expiration Date V isits Requested Visits Authorized [id number] Closed Auto-Generate d Referral 12/28/2023 01/26/2025 1 1 Reason Comments Cough Reason Comments Certifcate of Medical Necessity Reason Comments Radiology NM Specialty Diagnoses / Procedures Referred By Contac t Referred To Contact CT IMAGING Diagnoses Interstitial pulmonary disease (HCC) Procedures CT CHEST WO IVCON DIAGNOSTIC COMPUTED TOMOGRAPHY THORAX W/O CNTRST Dee Leal, RN HEART.MANUFACTURING TECHNOLOGIST [address] [place] [id number] [place] [address] Referral ID Status Reason Start Date Expiration Date V isits Requested Visits Authorized [id number] Closed Auto-Generate d Referral 12/11/2023 01/09/2025 1 1 Reason Comments Orders Reason Comments New Patient Epilepsy FOR RECORDS PERTAINING TO PATIENTS WHO ARE [...] BE BASED ON THE PRIMARY CLINICAL RECORDS. [employer] [facility]. provides no warranty or guarantee of the accuracy or completeness of information in this document.
[2024-08-24 18:25] LABS: Estimated Average Glucose 114 mg/dL; Glycohemoglobin A1C 5.6 % (4.5-6.2)
== END 2024-08-24 18:01 | disposition home or self-care (01) ==
LOC: LAB 18:01
PROVIDERS: PCP Internal Medicine; Visit Provider Internal Medicine
DX: E11.42 Type 2 diabetes mellitus with diabetic polyneuropathy (principal)
CPT/HCPCS: 36415; 83036

== ENCOUNTER 2025-02-25 16:08 | Outpatient (REF) | payer MEDICARE, SELFPAY ==
[2025-02-25 16:42] LABS: Bilirubin Urine NEGATIVE (NEGATIVE); Blood Urine NEGATIVE (NEGATIVE); Clarity Urine CLEAR (CLEAR); Color Urine LT. YELLOW (YELLOW); Glucose Urine UA NEGATIVE (NEGATIVE); Ketones Urine NEGATIVE (NEGATIVE); Leukocyte Esterase Urine NEGATIVE (NEGATIVE); Nitrite Urine NEGATIVE (NEGATIVE); Protein Urine NEGATIVE (NEG/TRACE); Specific Gravity Urine <=1.005 (1.005-1.025); Urobilinogen Urine 0.2 EU/dL (0.2-1.0)
[2025-02-25 16:49] LABS: Urine Microscopic Indicated NO
== END 2025-02-25 16:09 | disposition home or self-care (01) ==
LOC: LAB 16:08
PROVIDERS: PCP Internal Medicine; Visit Provider Internal Medicine
DX: R41.0 Disorientation, unspecified (principal)
CPT/HCPCS: 81003; 87086

== ENCOUNTER 2025-05-03 22:18 | Emergency (ER) | payer MEDICARE, SELFPAY ==
--- OUTSIDE RECORDS SUMMARY | 2020-04-09 13:30 | XMS_ITS | Continuity of Care Document ---
Author Organization [facility] Address [address] [place] [address] Phone Care Team Providers Care Aids Nurse Name Role Phone Brent Hermes RAMIREZ DO Unavailable Unavailable Procedures Procedure Date Covid Testing [facility] Results Test Name Date and Time Measure Units Reference Range Abnormal Flag Status Comments Panel Description: SARS-CoV-2, JAYRO Final SARS-CoV- 2, JAYRO 020 01:31:00 Not Detected Not Detected Final Testing was per formed using the Aptima SARS-CoV-2 assay.This test was developed and its performance characteristics determinedby [employer]. This test has not been FDA cleared orapproved. This test has been authorized by FDA under an Emergency UseAuthorization (EUA). This test is only authorized for the duration oftime the declaration that circumstances exist justifying theauthorization of the emergency use of in vitro diagnostic tests fordetection of SARS-CoV-2 virus and/or diagnosis of COVID-19 infectionunder section 564(b)(1) of the Act, 21 U.S.C. 360bbb-3(b)(1), unlessthe authorization is terminated or revoked sooner.When diagnostic testing is negative, the possibility of a falsenegative result should be considered in the context of a patient'srecent exposures and the presence of clinical signs and symptomsconsistent with COVID-19. An individual without symptoms of COVID-19and who is not shedding SARS-CoV-2 virus would expect to have anegative (not detected) result in this assay.Performed by:[employer] (=Ag) Panel Description: SARS-CoV-2 Antibody, IgM [facility] SARS-CoV- 2 Antibody, IgM 020 05:18:00 Negative Negative Final This sample do es not contain detectable SARS-CoV-2 IgM antibodies.This negative result does not rule out SARS-CoV-2 infection.Correlation with epidemiologic risk factors and other clinical andlaboratory findings is recommended. Serologic results should not beused as the sole basis to diagnose or exclude recent [id number].P erformed by:Jann Luis (=G) Panel Description: SARS-CoV-2 Antibody, IgG Fin al SARS-CoV- 2 Antibody, IgG 020 05:16:00 Negative Negative Final This sample do es not contain detectable SARS-CoV-2 IgG antibodies.This negative result does not rule out SARS-CoV-2 infection.Correlation with epidemiologic risk factors and other clinical andlaboratory findings is recommended. Serologic results should not beused as the sole basis to diagnose or exclude recent [id number] his assay was performed using the [employer] SARS-CoV-2 IgG assay.Performed by:Jann Luis (=G) Advance Directives Directive Yes / No Effective Date File Name No Information Encounters Encounter Description Practice Location Reason(s) For Visit Diagnoses Date Provider Providers Copied on Encounter [facility], [address], [place], [id number], [place] tel:[phone] COVID [facility] Encounter for screening for other viral diseases Brent Mcfarlane. [address], [place], [id number], [place]. tel:[phone] Family History Family Member Type Diagnosis Age At Onset No Information Payers Payer name Insurance type Covered constitution party ID Authoriza tion(s) No Information Social History Type Description Quantity Date Captured Comments Alcohol Use Details Unknown Caffeine Use Details Unknown Tobacco Use Status No Information Smoking Status No Information Sex Male Sexual Orientation Straight or heterosexual Gender Identity Male Chief Complaint And Reason For Visit No Information Reason For Referral Reason For Referral No Information History Of Present Illness Encounter Date Complaint History Of Prese nt Illness No Information Functional Status Date Functional Assessmen t No Information Instructions Date Instruction Additional Infor mation No Information Assessments Type Assessment Date assessment Encounter for screening for othe r viral diseases Patient Care Teams Name Effective Dates (start - stop) Status Members No Information
--- OUTSIDE RECORDS SUMMARY | 2025-05-03 22:24 | XMS_ITS | Encounter Summary ---
Author Organization [facility] Address [address] [place] [address] Care Team Providers Care Olive Brine Tester Name Role Phone Jamal Jay Adrian DO Primary Care Provider [phone] Saul Abdalla DO Unavailable Ubaldo Dubose MD Unavailable Valdez Castro MD Unavailable [phone] Flex Ramos MD Unavailable Judit Lora MD Unavailable Encounter Details Date Type Department Care Team (Late st Contact Info) Description 02/25/2024 External Result Encounter [facility] External Department Unsolicited Courtney Montes, SIGNALS OFFICER [address] [facility] [address] [place] [address] Social History Tobacco Use Types Packs/Day Years Used Date Smoking Tobacco: Former Cigarettes Q uit: 11/05/1979 Passive Smoke Exposure: Past Smokeless Tobacco: Never Alcohol Use Standard Drinks/Week Comments Never 0 (1 standard drink = 0.6 oz pur e alcohol) caffeine: 1-2 cups per day tea AUDIT-C Answer Date Recorded Q1: How often do you have a drink containing alcohol? Never 02/25/2024 Q2: How many drinks containi ng alcohol do you have on a typical day when you are drinking? Patient does not drink Q3: How often do you have si x or more drinks on one occasion? Never 02/25/2024 PHQ-2 Answer Date Recorded Patient Health Questionnaire-2 Score 0 02/22/2024 Comments Unknown Sex and Gender Information Value Date Recorded Sex Assigned at Not on file Legal Sex Female 6:36 PM EDT Gender Identity Not on file Sexual Orientation Not on file documented as of this encounter Functional Status * Audit-C Score Answer Date of Assessment Author 0 02/25/2024 11:21 AM EDT Fernando Meehan MA * Question Answer Date of Assessment Author Q1: How often do you have a drink containing alcohol? Never 02/25/2024 11:21 AM EDT Elvira Meehan M A Q2: How many drinks containing alcohol do you have on a typical day when you are drinking? Patient does not drink 02/25/2024 11:21 AM EDT Elvira Meehan MA Q3: How often do you have six or more drinks on one occasion? Never 02/25/2024 11:21 AM EDT Elvira Meehan M A documented as of this encounter Plan of Treatment Upcoming Encounters Date Type Department Care Team (Late st Contact Info) Description 06/25/2025 2:00 PM EDT Office Visit [facility] [address] [place] [address] Jamal Jay, DO [address] [place] [address] 09/10/2025 3:00 PM EST Office Visit [facility] [address] [place] [address] Jamal Jay, [address] [place] [address] documented as of this encounter Procedures Procedure Name Priority Date/Time Associated Diagnosis Comments CT CHEST ANGIO W AND WO IV CONTRAST 02/25/2024 2:29 PM EDT documented in this encounter Results * CT chest angio w and wo IV contrast (02/25/2024 2:29 PM EDT) Anatomical Region Laterality Modality Body Computed Tomogra phy 02/25/2024 2:29 PM EDT Impressions 02/25/2024 2:42 PM EDT No acute pulmonary embolus. Diffuse groundglass basilar parenchymal density which may be related to interstitial lung disease.. Basilar linear atelectasis/scarring. Impression dictated by: Jamal Bird M.D.02/25/2024 2:40 PM Dictation Location: [facility]01 Transcribed By: PWS 02/25/24 1440 Dictated By: Jamal Bird DO 02/25/24 1429 Signed By: <Electronically signed by Jamal Bird DO in OV> 02/25/24 1440 Narrative 02/25/2024 2:42 PM EDT [facility] [place] [address] [place] [address] CT Scan Report Signed Patient: Karuna Garcia MR#: [id number] : 1945 Acct:[id number] Age/Sex: 79 / F ADM Date: 02/25/24 Loc: CT Room: Type: [facility] Attending Dr: Courtney Montes RN, MSN, ANP-C Copies to: COURTNEY MONTES RN, MSN Ordering Provider: COURTNEY MONTES RN, MSN Date of Service: 02/25/24 CT/CT [...] ABDOMEN: Cholelithiasis. CT/CT angio chest PE protocol Procedure Note Radiology, Radiologist, - 02/25/2024 [facility] [place] [address] [place] [address] CT Scan Report Signed Patient: Karuna Garcia EMR#: [id number] : 6Acct:[id number] Age/Sex: 79 / FADM Date: 02/25/24 Loc: CT Room:Type: [facility] Attending Dr: Courtney Montes RN, MSN, ANP-C Copies to: COURTNEY MONTES RN, MSN Ordering Provider: COURTNEY MONTES RN, MSN Date of Service: 02/25/24 CT/CT angio chest PE protocol: J84.89, I26.99,J84.10 CTA Chest with PE protocol TECHNIQUE: Axial imaging with 2-D and 3-D reconstruction. 68cc ofIsovue-[address] exam was performed using one or more the following dose reductiontechniques: Automated exposure control, adjustment of the MA and/or Kv according to patient size, or useof the iterative reconstruction technique. History: Shortness of breath. Chest pain for 5 days. Reformed smoker.History of fibrosis and interstitial lung disease. History of prior pulmonary emboli. COMPARISON: None THYROID: Unremarkable TRACHEA AND BRONCHI: Patent ESOPHAGUS: Unremarkable. HEART: Within normal limits PERICARDIAL EFFUSION: None CORONARY ARTERY CALCIFICATION: None MEDIASTINUM: No adenopathy. No pneumoperitoneum. No mediastinalhematoma. PULMONARY CHARLOTTE: No hilar mass or adenopathy is seen. THORACIC AORTA Unremarkable PULMONARY EMBOLUS: None LUNG NODULE None LUNGS: Diffuse groundglass interstitial prominence. The basilaratelectasis/scarring. PLEURAL EFFUSION: None PNEUMOTHORAX: No pneumothorax seen. CHEST WALL: No abnormality AXILLA: Unremarkable BONY STRUCTURES Intact UPPER ABDOMEN: Cholelithiasis. CT/CT angio chest PE protocol IMPRESSION: No acute pulmonary embolus. Diffuse groundglass basilar parenchymaldensity which may be related to interstitial lung disease.. Basilar linearatelectasis/scarring. Impression dictated by: Jamal Bird M.D.02/25/2024 2:40 PM Dictation Location: [place] [address] Transcribed By: [facility] 02/25/24 1440 Dictated By: Jamal Bird DO 02/25/24 1429 Signed By: <Electronically signed by Jamal Bird DO in OV> 02/25/24 1440 us Courtney Montes SIGNALS OFFICER IMG CT PROCEDURES Final Resu lt documented in this encounter Visit Diagnoses Not on filedocumented in this encounter Additional Health Concerns Assessment Noted Time PHQ-9 Depression Total Score: 3 02/22/20 24 2:00 PM EDT documented as of this encounter Care Teams Olive Brine Tester Relationship Specialty Start Date End Date Jamal Jay DO [address] [place] [address] PCP - General Internal Medicine 03/13/23 Saul Abdalla DO [address] [place] [address] Referring Physician Ophthalmology 02/22/24 Ubaldo Dubose MD [address] [place] [address] Referring Physician Pulmonary Disease 02/22/24 Valdez Castro MD [address] [place] [address] Referring Physician Pediatric Pulmonology 02/22/24 Flex Ramos MD [address] [place] [address] Referring Physician Gastroenterology 02/22/24 Judit Lora MD [address] [facility], [address] [place] [address] Referring Physician Cardiology 02/22/24 documented as of this encounter
--- OUTSIDE RECORDS SUMMARY | 2025-05-03 22:24 | XMS_ITS | Encounter Summary ---
Author Organization [facility] Address [address] [place] [address] Care Team Providers Care Manager Product Marketing Name Role Phone Jamal Jay Adrian DO Primary Care Provider [phone] Saul Abdalla DO Unavailable Ubaldo Dubose MD Unavailable Valdez Castro MD Unavailable [phone] Flex Ramos MD Unavailable Judit Lora MD Unavailable Reason for Visit * Reason Onset Date Comments On-Call. 05/03/2025 Encounter Details Date Type Department Care Team (Late st Contact Info) Description 05/03/2025 Telephone [facility] [address] [facility] [address] [place] [address] Susanna Kapadia, [address] [facility] [address] [place] [address] On-Call. Social History Tobacco Use Types Packs/Day Years Used Date Smoking Tobacco: Former Cigarettes Q uit: 11/05/1979 Passive Smoke Exposure: Past Smokeless Tobacco: Never Alcohol Use Standard Drinks/Week Comments Never 0 (1 standard drink = 0.6 oz pur e alcohol) caffeine: 1-2 cups per day tea AUDIT-C Answer Date Recorded Q1: How often do you have a drink containing alcohol? Never 04/22/2024 Q2: How many drinks containi ng alcohol do you have on a typical day when you are drinking? Patient does not drink Q3: How often do you have si x or more drinks on one occasion? Never 04/22/2024 PHQ-2 Answer Date Recorded Patient Health Questionnaire-2 Score 0 02/22/2024 Comments Unknown Sex and Gender Information Value Date Recorded Sex Assigned at Not on file Legal Sex Female 6:36 PM EDT Gender Identity Not on file Sexual Orientation Not on file documented as of this encounter Miscellaneous Notes * Telephone Encounter - Sujatha Botello - 05/03/2025 8:44 PM EDT Daughter Nadira called OA concerning Pt is having a change in hearing loss, confusion, fatigued andtired. All started within the last couple of days. Pt has EGD scheduled for tomorrow and has been off her Plavix for 5 days to prepare for procedure. Nadira is concerned about blood clots d/t her mother's symptoms. Or maybe the heat is affecting her. She is wondering if she should start Plavix again or take her to ER. Would like On-call advice. Sent secure chat to On-Call Dr. Kapadia. documented in this encounter Plan of Treatment Upcoming Encounters Date Type Department Care Team (Late st Contact Info) Description 06/25/2025 2:00 PM EDT Office Visit [facility] [address] [place] [address] Jamal Jay, [address] [place] [address] 09/10/2025 3:00 PM EST Office Visit [facility] [address] [place] [address] Jamal Jay DO [address] [place] [address] documented as of this encounter Visit Diagnoses Not on filedocumented in this encounter Additional Health Concerns Assessment Noted Time PHQ-9 Depression Total Score: 3 02/22/20 24 2:00 PM EDT documented as of this encounter Care Teams Manager Product Marketing Relationship Specialty Start Date End Date Jamal Jay DO [address] [place] [address] PCP - General Internal Medicine 03/13/23 Saul Abdalla DO [address] [place] [address] Referring Physician Ophthalmology 02/22/24 Ubaldo Dubose MD [address] [place] [address] Referring Physician Pulmonary Disease 02/22/24 Valdez Castro MD [address] [place] [address] Referring Physician Pediatric Pulmonology 02/22/24 Flex Ramos MD [address] [place] [address] Referring Physician Gastroenterology 02/22/24 Judit Lora MD [address] [facility], [address] [place] [address] Referring Physician Cardiology 02/22/24 documented as of this encounter
--- OUTSIDE RECORDS SUMMARY | 2025-05-03 22:24 | XMS_ITS | Encounter Summary ---
Author Organization [facility] Address [address] [place] [address] Care Team Providers Care Inorganic Chemical Technician Name Role Phone Jamal Jay DO Primary Care Provider + Source Comments In the event this information is protected by the Federal Confidentiality of Alcohol and Drug AbusePatient Records regulations: The Federal rules restrict any use of the information to criminally investigate or prosecute any alcohol or drug abuse patient.[facility] Encounter Details Date Type Department Care Team (Late st Contact Info) Description 02/26/2024 Patient Msg Orthopaedic Surgery [facility] [address] [place], [place] [id number] Provider, Ccf Please call to schedule appointment Social History Tobacco Use Types Packs/Day Years Used Date Smoking Tobacco: Former Cigarettes 1 10 0 11/05/1969 - 11/05/1979 Smokeless Tobacco: Never Alcohol Use Standard Drinks/Week Comments No 0 (1 standard drink = 0.6 oz pur e alcohol) Area Deprivation Index Answer Date Ruel rded National Score (1-100), lower number is lower ri sk 73 12/28/2023 State Score (1-10), lower number is lower risk 6 12/28/2023 Data from: https://www.neighborhoodatlas.medicine.[facility].edu/. Last address used for calculation [address] [place] [address] 12/28/2023 Comments No Sex and Gender Information Value Date Recorded Sex Assigned at Not on file Legal Sex Female 9:56 AM EST Gender Identity Not on file Sexual Orientation Not on file documented as of this encounter Plan of Treatment Upcoming Encounters Date Type Department Care Team (Latest Contact Info) Description 06/24/2025 3:00 PM EDT [facility] Neurology [address] [place] [address] Sohail William MD, PhD [address] [place] [address] 6 months follow up-Focal epilepsy documented as of this encounter Visit Diagnoses Not on filedocumented in this encounter Care Teams Inorganic Chemical Technician Relationship Specialty Start Date End Date Jamal Jay DO [address] [facility] [address] [place] [address] PCP - General Internal Medicine 12/25/23 documented as of this encounter
--- OUTSIDE RECORDS SUMMARY | 2025-05-03 22:24 | XMS_ITS | Encounter Summary ---
Author Organization [facility] Address [address] [place] [address] Care Team Providers Care Sole Ruffer Name Role Phone Jamal Jay DO Primary Care Provider [phone] Saul Abdalla DO Unavailable [phone] Ubaldo Dubose MD Unavailable Valdez Castro MD Unavailable [phone] Flex Ramos MD Unavailable Judit Lora MD Unavailable Encounter Details Date Type Department Care Team (Late st Contact Info) Description 04/09/2023 Abstract [facility] [address] [facility] [address] [place] [address] Jamal Jay DO [address] [facility] [address] [place], [place] [phone] Social History Tobacco Use Types Packs/Day Years Used Date Smoking Tobacco: Never Assessed Comments Unknown Sex and Gender Information Value Date Recorded Sex Assigned at Not on file Legal Sex Female 6:36 PM EDT Gender Identity Not on file Sexual Orientation Not on file documented as of this encounter Plan of Treatment Upcoming Encounters Date Type Department Care Team (Late st Contact Info) Description 06/25/2025 2:00 PM EDT Office Visit [facility] [address] [facility] [address] [place] [address] Jamal Jay DO [address] [place] [address] 09/10/2025 3:00 PM EST Office Visit [facility] [address] [place] [address] Jamal Jay DO [address] [place] [address] documented as of this encounter Visit Diagnoses Not on filedocumented in this encounter Care Teams Sole Ruffer Relationship Specialty Start Date End Date Jamal Jay DO [address] [place] [address] PCP - General Internal Medicine 03/13/23 Saul Abdalla DO [address] [place] [address] [address] [place] [address] Referring Physician Ophthalmology 02/22/24 Ubaldo Dubose MD [address] [place] [address] Referring Physician Pulmonary Disease 02/22/24 Valdez Castro MD [address] [place] [address] Referring Physician Pediatric Pulmonology 02/22/24 Flex Ramos MD [address] [place], [place] [address] Referring Physician Gastroenterology 02/22/24 Judit Lora MD [address] [facility] [address], [address] [place] [address] Referring Physician Cardiology 02/22/24 documented as of this encounter
--- OUTSIDE RECORDS SUMMARY | 2025-05-03 22:24 | XMS_ITS | Encounter Summary ---
Author Organization [facility] Address [address] [facility] [place] [address] Care Team Providers Care Automotive Sales Specialist Name Role Phone Jamal Jay Adrian DO Primary Care Provider Saul Abdalla DO Unavailable [phone] Ubaldo Dubose MD Unavailable Valdez Castro MD Unavailable [phone] Flex Ramos MD Unavailable Judit Lora MD Unavailable Encounter Details Date Type Department Care Team (Late st Contact Info) Description 08/28/2023 Orders Only [facility] [address] [facility] [address] [place] [address] A, Unknown Practice [address] [place], [place] [phone] Social History Tobacco Use Types Packs/Day Years Used Date Smoking Tobacco: Former Cigarettes Q uit: 11/05/1979 Smokeless Tobacco: Never Alcohol Use Standard Drinks/Week Comments Never 0 (1 standard drink = 0.6 oz pur e alcohol) caffeine: 1-2 cups per day tea Comments Unknown Sex and Gender Information Value Date Recorded Sex Assigned at Not on file Legal Sex Female 6:36 PM EDT Gender Identity Not on file Sexual Orientation Not on file documented as of this encounter Plan of Treatment Upcoming Encounters Date Type Department Care Team (Late st Contact Info) Description 06/25/2025 2:00 PM EDT Office Visit [facility] [address] [place] [address] Jamal Jay, [address] [facility] [facility] [address] [address] [place] [address] 09/10/2025 3:00 PM EST Office Visit [facility] [address] [place] [address] Jamal Jay, DO [address] [place] [address] documented as of this encounter Procedures Procedure Name Priority Date/Time Associated Diagnosis Comments XR WRIST 3+ VIEWS LEFT Routine 09/11/2023 1:01 PM EST documented in this encounter Results * XR wrist 3+ views left (09/11/2023 1:01 PM EST) Anatomical Region Laterality Modality Upper Extremities, Wrist Left Radiogr aphic Imaging us Unknown Practice A IMG XR PROCEDURES Final Resul t documented in this encounter Visit Diagnoses Not on filedocumented in this encounter Care Teams Automotive Sales Specialist Relationship Specialty Start Date End Date Jamal Jay DO [address] [place] [address] PCP - General Internal Medicine 03/13/23 Saul Abdalla DO [address] [facility] [address] [place] [address] Referring Physician Ophthalmology 02/22/24 Ubaldo Dubose MD [address] [place] [address] Referring Physician Pulmonary Disease 02/22/24 Valdez Castro MD [address] [facility] [address] [place] [address] Referring Physician Pediatric Pulmonology 02/22/24 Flex Ramos MD [address] [place] [address] Referring Physician Gastroenterology 02/22/24 Judit Lora MD 703 [facility] 2, [address] [address] Referring Physician Cardiology 02/22/24 documented as of this encounter
--- OUTSIDE RECORDS SUMMARY | 2025-05-03 22:24 | XMS_ITS | Encounter Summary ---
Author Organization [facility] Address [address] [facility] [place] [address] Care Team Providers Care Wool Shearing Supervisor Name Role Phone Jamal Jay DO Primary Care Provider [phone] Saul Abdalla DO Unavailable Ubaldo Dubose MD Unavailable Valdez Castro MD Unavailable [phone] Flex Ramos MD Unavailable Judit Lora MD Unavailable Encounter Details Date Type Department Care Team (Late st Contact Info) Description 04/27/2023 Orders Only [facility] IM [address] [place] [address] Provider, MD Cindy [address] [place] [address] Social History Tobacco Use Types Packs/Day Years [...] IM [address] [place] [address] Jamal Jay DO [address] [place] [address] 09/10/2025 3:00 PM EST Office Visit [facility] [address] [place] [phone] Jamal Jay DO [address] [place] [address] documented as of this encounter Procedures Procedure Name Priority Date/Time Associated Diagnosis Comments DIABETES EYE EXAM Routine 04/26/2023 9:44 AM EDT documented in this encounter Results * Diabetes Eye Exam (04/26/2023 9:44 AM EDT) us Historical Provider [facility] Edited Result - Final documented in this encounter Visit Diagnoses Not on filedocumented in this encounter Care Teams Wool Shearing Supervisor Relationship Specialty Start Date End Date Jamal Jay DO [address] [facility] [address] [facility] [address] [place] [address] PCP - General Internal Medicine 03/13/23 Saul Abdalla DO [address] [place] [address] [address] [place] [address] Referring Physician Ophthalmology 02/22/24 Ubaldo Dubose MD [address] [place] [address] Referring Physician Pulmonary Disease 02/22/24 Valdez Castro MD [address] [place] [address] Referring Physician Pediatric Pulmonology 02/22/24 Flex Ramos MD [address] [place] [address] Referring Physician Gastroenterology 02/22/24 Judit Lora MD [address] [facility] 2, [place] [address] Referring Physician Cardiology 02/22/24 documented as of this encounter
--- OUTSIDE RECORDS SUMMARY | 2025-05-03 22:24 | XMS_ITS | Encounter Summary ---
Author Organization [facility] Address [address] [facility] [place] [address] Care Team Providers Care Animal Hospital Clerk Name Role Phone Jamal Jay Adrian DO Primary Care Provider Saul Abdalla DO Unavailable Ubaldo Dubose MD Unavailable Valdez Castro MD Unavailable [phone] Flex Ramos MD Unavailable Judit Lora MD Unavailable Encounter Details Date Type Department Care Team (Late st Contact Info) Description 01/23/2024 Orders Only [facility] [address] [facility] [email or web address] [address] [place] [address] A, Unknown Practice [address] [place], [place] [address] Social History Tobacco Use Types Packs/Day Years [...] IM [address] [place] [address] Jamal Jay, [address] [place] [address] 09/10/2025 3:00 PM EST Office Visit [facility] IM [address] [place] [phone] Jamal Jay, DO [address] [facility] [address] [place] [address] documented as of this encounter Procedures Procedure Name Priority Date/Time Associated Diagnosis Comments XR SWALLOW FUNCTION STUDY Routine 01/23/2024 4:21 PM EDT documented in this encounter Results * XR SWALLOW FUNCTION STUDY (01/23/2024 4:21 PM EDT) Anatomical Region Laterality Modality Radiographic Kelly ging us Unknown Practice A IMG XR PROCEDURES Final Resul t documented in this encounter Visit Diagnoses Not on filedocumented in this encounter Care Teams Animal Hospital Clerk Relationship Specialty Start Date End Date Jamal Jay DO [address] [place] [address] PCP - General Internal Medicine 03/13/23 Saul Abdalla DO [address] [facility] [address] [place] [address] Referring Physician Ophthalmology 02/22/24 Ubaldo Dubose MD [address] [place] [address] Referring Physician Pulmonary Disease 02/22/24 Valdez Castro MD [address] [facility] [address] [place] [address] Referring Physician Pediatric Pulmonology 02/22/24 Flex Ramos MD [address] [facility] [address] [place] [address] Referring Physician Gastroenterology 02/22/24 Judit Lora MD [address]03 [facility] 2, [place] [id number] Referring Physician Cardiology 02/22/24 documented as of this encounter
--- OUTSIDE RECORDS SUMMARY | 2025-05-03 22:24 | XMS_ITS | Encounter Summary ---
Author Organization [facility] Address [address] [place] [address] Care Team Providers Care Oxygraph Operator Name Role Phone NaunKostas villa Lopez DO Primary Care Provider [phone] Jamal Jay DO Primary Care Provider + Source Comments In the event this information is protected by the Federal Confidentiality of Alcohol and Drug AbusePatient Records regulations: The Federal rules restrict any use of the information to criminally investigate or prosecute any alcohol or drug abuse patient.[facility] Encounter Details Date Type Department Care Team (Late st Contact Info) Description 02/06/2022 Patient Msg Pulmonary Medicine [address] [place] [address] Provider, Ccf Dr. Sherman Social History Tobacco Use Types Packs/Day Years Used Date Smoking Tobacco: Former Cigarettes 1 10 0 11/05/1969 - 11/05/1979 Smokeless Tobacco: Never Alcohol Use Standard Drinks/Week Comments No 0 (1 standard drink = 0.6 oz pur e alcohol) Area Deprivation Index Answer Date Ruel rded National Score (1-100), lower number is lower ri sk Not on file 10/13/2020 State Score (1-10), lower number is lower risk N ot on file 10/13/2020 Data from: https://www.neighborhoodatlas.medicine.[facility].edu/. Last address used for calculation Not on file 10/13/2020 Comments No Sex and Gender Information Value Date Recorded Sex Assigned at Not on file Legal Sex Female 9:56 AM EST Gender Identity Not on file Sexual Orientation Not on file documented as of this encounter Plan of Treatment Upcoming Encounters Date Type Department Care Team (Latest Contact Info) Description 06/24/2025 3:00 PM EDT [facility] Neurology [address] [place] [address] Sohail William MD, PhD [address] [place] [address] 6 months follow up-Focal epilepsy documented as of this encounter Visit Diagnoses Not on filedocumented in this encounter Care Teams Oxygraph Operator Relationship Specialty Start Date End Date Kostas Vance DO [address] [facility] [place] [address] PCP - General 05/25/09 12/24/23 Jamal Jay DO [address] [address] PCP - General Internal Medicine 12/25/23 documented as of this encounter
--- OUTSIDE RECORDS SUMMARY | 2025-05-03 22:24 | XMS_ITS | Encounter Summary ---
Author Organization [facility] Address [address] [facility] [place] [address] Care Team Providers Care Practice Manager Name Role Phone Misty Jamal A DO Primary Care Provider Saul Abdalla DO Unavailable Ubaldo Dubose MD Unavailable Valdez Castro MD Unavailable [phone] Flex Ramso MD Unavailable Judit Lora MD Unavailable Encounter Details Date Type Department Care Team (Late st Contact Info) Description 02/25/2024 Orders Only [facility] [address] [facility] [address] [place] [phone] Anil Kwok PA [address] [facility] [address] [place] [address] DISH (diffuse idiopathic skeletal hyperostosis) (Primary Dx) Social History Tobacco Use Types Packs/Day Years [...] [address] [place] [address] Jamal Jay DO [address] [place] [address] 09/10/2025 3:00 PM EST Office Visit [facility] [address] [place] [address] Jamal Jay DO [address] [place] [address] documented as of this encounter Procedures Procedure Name Priority Date/Time Associated Diagnosis Comments XR CHEST 1 VIEW Routine 02/22/2024 10:[address] HEAD FOR BRAINLAB W/O CONTRAST Routine 02/22/2024 9:58 AM EDT documented in this encounter Results * XR chest 1 view (02/22/2024 10:05 AM EDT) Anatomical Region Laterality Modality Chest Radiographic Kelly ging Unknown Practice A IMG XR PROCEDURES Final Resul t * CT HEAD FOR BRAINLAB W/O CONTRAST (02/22/2024 9:58 AM EDT) Anatomical Region Laterality Modality Radiographic Kelly ging us Anil LALA IMG XR PROCEDURES Final Resul t documented in this encounter Visit Diagnoses Diagnosis DISH (diffuse idiopathic skeletal hyperostosis)- Primary Ankylosing vertebral hyperostosis documented in this encounter Additional Health Concerns Assessment Noted Time PHQ-9 Depression Total Score: 3 02/22/20 24 2:00 PM EDT documented as of this encounter Care Teams Practice Manager Relationship Specialty Start Date End Date Jamal Jay DO [address] [place] [address] PCP - General Internal Medicine 03/13/23 Saul Abdalla DO [address] [facility] [address] [place] [address] Referring Physician Ophthalmology 02/22/24 Ubaldo Dubose MD [address] [place] [address] Referring Physician Pulmonary Disease 02/22/24 Valdez Castro MD [address] [place] [address] Referring Physician Pediatric Pulmonology 02/22/24 Flex Ramos MD [address] [place] [address] Referring Physician Gastroenterology 02/22/24 Judit Lora MD 703 [facility] 2, [facility] [address] [place] [phone] Referring Physician Cardiology 02/22/24 documented as of this encounter
--- OUTSIDE RECORDS SUMMARY | 2025-05-03 22:24 | XMS_ITS | Encounter Summary ---
Author Organization [facility] Address [address] [place] [address] Care Team Providers Care Hospital Educator Name Role Phone MistyImer DO Primary Care Provider [phone] Saul Abdalla DO Unavailable [phone] Ubaldo Dubose MD Unavailable [phone] Valdez Castro MD Unavailable [phone] Flex Ramos MD Unavailable Judit Lora MD Unavailable Encounter Details Date Type Department Care Team (Late st Contact Info) Description 04/11/2024 Clinisync Result Encounter [facility] External Department Unsolicited Provider, Generic External Data Social History Tobacco Use Types Packs/Day Years Used Date Smoking Tobacco: Former Cigarettes Q uit: 11/05/1979 Passive Smoke Exposure: Past Smokeless Tobacco: Never Alcohol Use Standard Drinks/Week Comments Never 0 (1 standard drink = 0.6 oz pur e alcohol) caffeine: 1-2 cups per day tea AUDIT-C Answer Date Recorded Q1: How often do you have a drink containing alcohol? Never 03/10/2024 Q2: How many drinks containi ng alcohol do you have on a typical day when you are drinking? Patient does not drink Q3: How often do you have si x or more drinks on one occasion? Never 03/10/2024 PHQ-2 Answer Date Recorded Patient Health Questionnaire-2 [...] [address] [place] [address] Imer Jay, DO [address] [place] [address] 09/10/2025 3:00 PM EST Office Visit [facility] [address] [place] [address] Imer Jay, DO [address] [place] [address] documented as of this encounter Procedures Procedure Name Priority Date/Time Associated Diagnosis Comments MM TOMOSYNTHESIS SCREENING BI 04/11/2024 4:00 PM EDT documented in this encounter Results * MM TOMOSYNTHESIS SCREENING BI (04/11/2024 4:00 PM EDT) Anatomical Region Laterality Modality Other 04/11/2024 4:00 PM EDT Narrative 04/11/2024 4:01 PM EDT The [place] [id number] Mammography Report Signed Patient: KARUNA REYNAGA MR#: [id number] : 1945 Acct:[id number] Age/Sex: 79 / F ADM Date: 04/11/24 Loc: MAMMO Attending Dr: DAYNE BOSE Ordering Physician: DAYNE BOSE Results: Date of Service: 04/11/24 Follow Up: Procedure(s): MM tomosynthesis screening BI Accession Number(s): [id number] cc: IMER JAY ; DAYNE BOSE Patient Name: KARUNA REYNAGA MR#: [id number] : 1945 Exam Date: 04/11/2024 Ordering Doctor: DR DAYNE BOSE RADIOLOGY REPORT PROCEDURE: MM TOMOSYNTHESIS SCREENING BI COMPARISON: MM TOMOSYNTHESIS SCREENING BI, 04/06/2023. MG MAMM SCREEN 3D RUPAL CAD, 03/27/2022. MG MAMM SCREEN RUPAL W CAD, 03/25/2021. MG MAMM SCREEN RUPAL W CAD, 09/06/2015. INDICATIONS: Screening Calculator Name NCI Breast Cancer Risk Assessment Tool 5 Year Breast Cancer Risk 1.60% Lifetime Breast Cancer Risk 2.90% Personal Breast Cancer No Personal Ovarian Cancer No Treatments None Family Cancers None LOCATION: The [facility] [place] [facility] BREAST COMPOSITION: The breasts are almost entirely fatty. FINDINGS: DIAGNOSTIC CATEGORY 1--NEGATIVE. RIGHT BREAST: No significant suspicious finding. No significant change has occurred. LEFT BREAST: No significant suspicious finding. No significant change has occurred. RECOMMENDATIONS: ROUTINE MAMMOGRAM AND CLINICAL EVALUATION IN 12 MONTHS. PLEASE NOTE: A NORMAL MAMMOGRAM DOES NOT EXCLUDE THE POSSIBILITY OF BREAST CANCER. A CLINICALLY SUSPICIOUS PALPABLE LUMP SHOULD BE BIOPSIED. Dictated by: Hiro Tran M.D. on 04/11/2024 at 15:58 Approved by: Hiro Tran M.D. on 04/11/2024 at 16:00 Dictated By: Hiro Tran M.D. Signed By: 04/11/24 1601 DD/ 1600 TD/TT: Retail Center Receptionist: Procedure Note Radiology, Radiologist, - 04/11/2024 [place] [address] Mammography Report Signed Patient: KARUNA REYNAGA EMR#: [id number] : 1945cct:[id number] Age/Sex: 79 / FADM Date: 04/11/24 Loc: MAMMO Attending Dr: DAYNE BOSE Ordering Physician: Sara BOSEults: Date of Service: 04/11/24Follow Up: Procedure(s): MM tomosynthesis screening BI Accession Number(s): [id number] cc: IMER JAY ; DAYNE BOSE Patient Name: KARUNA REYNAGA MR#: [id number] : 1945 Exam Date: 04/11/2024 Ordering Doctor: DR DAYNE BOSE RADIOLOGY REPORT PROCEDURE: MM TOMOSYNTHESIS SCREENING BI COMPARISON: MM TOMOSYNTHESIS SCREENING BI, 04/06/2023. MG MAMM [id number] RUPAL CAD, 03/27/2022. MG MAMM SCREEN RUPAL W CAD, 03/25/2021. MG MAMM SCREENBIL W CAD, 09/06/2015. INDICATIONS: Screening Calculator Name NCI Breast Cancer Risk Assessment Tool 5 Year Breast Cancer Risk 1.60% Lifetime Breast Cancer Risk 2.90% Personal Breast Cancer No Personal Ovarian Cancer No Treatments None Family Cancers None LOCATION: The [facility] [place] [facility] BREAST COMPOSITION: The breasts are almost entirely fatty. FINDINGS: DIAGNOSTIC CATEGORY 1--NEGATIVE. RIGHT BREAST: No significant suspicious finding. No significant changehas occurred. LEFT BREAST: No significant suspicious finding. No significant changehas occurred. RECOMMENDATIONS: ROUTINE MAMMOGRAM AND CLINICAL EVALUATION IN 12 MONTHS. PLEASE NOTE: A NORMAL MAMMOGRAM DOES NOT EXCLUDE THE POSSIBILITY OFBREAST CANCER. A CLINICALLY SUSPICIOUS PALPABLE LUMP SHOULD BE BIOPSIED. Dictated by: Hiro Tran M.D. on 04/11/2024 at 15:58 Approved by: Hiro Tran M.D. on 04/11/2024 at 16:00 Dictated By: Hiro Tran M.D. Signed By:04/11/24 1601 DD/ 1600 TD/TT: Retail Center Receptionist: us Generic External Data Provider [facility] Final Result documented in this encounter Visit Diagnoses Not on filedocumented in this encounter Additional Health Concerns Assessment Noted Time PHQ-9 Depression Total Score: 3 02/22/20 24 2:00 PM EDT documented as of this encounter Care Teams Hospital Educator Relationship Specialty Start Date End Date Imer Jay DO [address] [place] [address] PCP - General Internal Medicine 03/13/23 Saul Abdalla DO [address] [place] [address] Ave [address] [place] [address] Referring Physician Ophthalmology 02/22/24 Ubaldo Dubose MD [address] [place] [address] Referring Physician Pulmonary Disease 02/22/24 Valdez Castro MD [address] [place] [address] Referring Physician Pediatric Pulmonology 02/22/24 Flex Ramos MD [address] [place], [place] [address] Referring Physician Gastroenterology 02/22/24 Judit Lora MD 703 [facility] 2, [address] [place] [address] Referring Physician Cardiology 02/22/24 documented as of this encounter
--- OUTSIDE RECORDS SUMMARY | 2025-05-03 22:24 | XMS_ITS | Encounter Summary ---
Author Organization [facility] Address [address] [facility] [place] [address] Care Team Providers Care Credit Reporting Clerk Name Role Phone Jamal Jay Adrian DO Primary Care Provider [phone] Saul Abdalla DO Unavailable Ublado Dubose MD Unavailable [phone] Valdez Castro MD Unavailable [phone] Flex Ramos MD Unavailable Judit Lora MD Unavailable Encounter Details Date Type Department Care Team (Late st Contact Info) Description 02/26/2024 Orders Only [facility] [address] [facility] [address] [place] [phone] Dee Watson MD [address] [place] [address] Social History Tobacco Use Types Packs/Day Years [...] [address] [place] [address] Jamal Jay DO [address] [place] [address] 09/10/2025 3:00 PM EST Office Visit [facility] [address] [place] [phone] Jamal Jay DO [address] [place] [address] documented as of this encounter Procedures Procedure Name Priority Date/Time Associated Diagnosis Comments SCANNED LABS Routine 02/24/2024 1:37 PM EDT XR CHEST 1 VIEW Routine 02/22/2024 10:01 AM EDT documented in this encounter Results * SCANNED LABS (02/24/2024 1:37 PM EDT) us Unknown Practice A LAB CHG PERFORMABLES Final Re sult * XR chest 1 view (02/22/2024 10:01 AM EDT) Anatomical Region Laterality Modality Chest Radiographic Kelly ging us Dee Watson MD IMG XR PROCEDURES Final Result documented in this encounter Visit Diagnoses Not on filedocumented in this encounter Additional Health Concerns Assessment Noted Time PHQ-9 Depression Total Score: 3 02/22/20 24 2:00 PM EDT documented as of this encounter Care Teams Credit Reporting Clerk Relationship Specialty Start Date End Date Jamal Jay DO [address] [place] [address] PCP - General Internal Medicine 03/13/23 Saul Abdalla DO [address] [place] [address] Referring Physician Ophthalmology 02/22/24 bUaldo Dubose MD [address] [place] [address] Referring Physician Pulmonary Disease 02/22/24 Valdez Castro MD [address] [place] [address] [address] [place] [address] Referring Physician Pediatric Pulmonology 02/22/24 Flex Ramos MD [address] [place] [address] [address] [place] [address] Referring Physician Gastroenterology 02/22/24 Judit Lora MD 703 [facility] 2, [address] [place] [address] Referring Physician Cardiology 02/22/24 documented as of this encounter
--- OUTSIDE RECORDS SUMMARY | 2025-05-03 22:24 | XMS_ITS | Encounter Summary ---
Author Organization [facility] Address [address] [facility] [place] [address] Care Team Providers Care Renderer Name Role Phone Misty Jamal A DO Primary Care Provider Saul Abdalla DO Unavailable [phone] Ubaldo Dubose MD Unavailable [phone] Valdez Castro MD Unavailable [phone] Flex Ramos MD Unavailable Judit Lora MD Unavailable Encounter Details Date Type Department Care Team (Late st Contact Info) Description 08/25/2024 Orders Only [facility] [address] [facility] [address] [place] [address] A, Unknown Practice [address] [place], [place] [phone] Social History Tobacco Use Types Packs/Day Years [...] 06/25/2025 2:00 PM EDT Office Visit [facility] IM [address] [place] [address] Jamal Jay DO [address] [place] [address] 09/10/2025 3:00 PM EST Office Visit [facility] IM [address] [place] [address] Jamal Jay DO [address] [place] [address] documented as of this encounter Procedures Procedure Name Priority Date/Time Associated Diagnosis Comments HEMOGLOBIN A1C Routine 08/24/2024 11:50 AM EDT documented in this encounter Results * Hemoglobin A1c (08/24/2024 11:50 AM EDT) Blood Venous blood specimen / Unknown us Unknown Practice A LAB BLOOD ORDERABLES Final Re sult documented in this encounter Visit Diagnoses Not on filedocumented in this encounter Additional Health Concerns Assessment Noted Time PHQ-9 Depression Total Score: 3 02/22/20 24 2:00 PM EDT documented as of this encounter Care Teams Renderer Relationship Specialty Start Date End Date Jamal Jay DO [address] [place] [address] PCP - General Internal Medicine 03/13/23 Saul Abdalla DO [address] [place] [address] Referring Physician Ophthalmology 02/22/24 Ubaldo Dubose MD [address] [place] [address] Referring Physician Pulmonary Disease 02/22/24 Valdez Castro MD [address] [place] [address] Referring Physician Pediatric Pulmonology 02/22/24 Flex Ramos MD [address] [place] [address] [address] [place] [address] Referring Physician Gastroenterology 02/22/24 Judit Lora MD 703 [facility] 2, [address] [place] [address] Referring Physician Cardiology 02/22/24 documented as of this encounter
--- OUTSIDE RECORDS SUMMARY | 2025-05-03 22:24 | XMS_ITS | Encounter Summary ---
Author Organization [facility] Address [address] [place] [address] Care Team Providers Care Tube Operator Name Role Phone MistyJamal ortiz Primary Care Provider + Source Comments In the event this information is protected by the Federal Confidentiality of Alcohol and Drug AbusePatient Records regulations: The Federal rules restrict any use of the information to criminally investigate or prosecute any alcohol or drug abuse patient.[facility] Encounter Details Date Type Department Care Team (Late st Contact Info) Description 02/25/2024 Patient Msg Pulmonology [facility] [address] [place] [address] Ubaldo Dubose MD [address] [place], [place] [phone] Appointment Request Social History Tobacco Use Types Packs/Day Years [...] is lower risk 6 12/28/2023 Data from: https://www.neighborhoodatlas.medicine.[facility].edu/. Last address used for calculation [address] [place] [address] [address] 12/28/2023 Comments No Sex and Gender Information Value Date Recorded Sex Assigned at Not on file Legal Sex Female 9:56 AM EST Gender Identity Not on file Sexual Orientation Not on file documented as of this encounter Plan of Treatment Upcoming Encounters Date Type Department Care Team (Latest Contact Info) Description 06/24/2025 3:00 PM EDT [facility] Neurology [address] [place] [phone] Sohail William MD, PhD [address] [place] [address] 6 months follow up-Focal epilepsy documented as of this encounter Visit Diagnoses Not on filedocumented in this encounter Care Teams Tube Operator Relationship Specialty Start Date End Date Jamal Jay DO [address] [place] [address] PCP - General Internal Medicine 12/25/23 documented as of this encounter
--- OUTSIDE RECORDS SUMMARY | 2025-05-03 22:24 | XMS_ITS | Encounter Summary ---
Author Organization [facility] Address [address] [facility] [place] [address] Care Team Providers Care Linux Kernel Engineer Name Role Phone Misty Jamal A DO Primary Care Provider [phone] Saul Abdalla DO Unavailable Ubaldo Dubose MD Unavailable [phone] Valdez Castro MD Unavailable [phone] Flex Ramos MD Unavailable Judit Lora MD Unavailable Encounter Details Date Type Department Care Team (Late st Contact Info) Description 04/22/2024 Orders Only [facility] [address] [facility] [address] [place] [address] A, Unknown Practice [address] [place], [place] [address] Social History Tobacco Use Types Packs/Day Years [...] Score Answer Date of Assessment Author 0 04/22/2024 2:52 PM EDT Aylin Coleman MA * Question Answer Date of Assessment Author Q1: How often do you have a drink containing alcohol? Never 04/22/2024 2:52 PM EDT Aylin Coleman MA Q2: How many drinks containing alcohol do you have on a typical day when you are drinking? Patient does not drink 04/22/2024 2:52 PM EDT Aylin Coleman MA Q3: How often do you have six or more drinks on one occasion? Never 04/22/2024 2:52 PM EDT Aylin Coleman MA documented as of this encounter Plan of Treatment Upcoming Encounters Date Type Department Care Team (Late st Contact Info) Description 06/25/2025 2:00 PM EDT Office Visit [facility] [address] [place] [address] Jamal Jay DO [address] [place] [address] 09/10/2025 3:00 PM EST Office Visit [facility] IM [address] [place] [address] Jamal Jay DO [address] [place] [address] documented as of this encounter Procedures Procedure Name Priority Date/Time Associated Diagnosis Comments TRANSTHORACIC ECHO (TTE) COMPLETE Routine 04/22/2024 3:40 PM EDT MRA HEAD/BRAIN WO Routine 04/22/2024 3:3 9 PM EDT ECG 12-LEAD Routine 04/22/2024 3:[address] ANGIO HEAD NECK Routine 04/22/2024 3: [address] HEAD WO IV CONTRAST Routine 3:35 PM EDT documented in this encounter Results * Transthoracic echo (TTE) complete (04/22/2024 3:40 PM EDT) Anatomical Region Laterality Modality Heart Ultrasound us Unknown Practice A CV ECHO PROCEDURES Final Resu lt * MRA HEAD/BRAIN WO (04/22/2024 3:39 PM EDT) Anatomical Region Laterality Modality Radiographic Kelly ging us Unknown Practice A IMG XR PROCEDURES Final Resul t * ECG 12 lead (04/22/2024 3:38 PM EDT) us Unknown Practice A ECG ORDERABLES Final Result * CT angiogram head and neck (04/22/2024 3:37 PM EDT) Anatomical Region Laterality Modality Head, Neck Computed Tomogra phy us Unknown Practice A IMG CT PROCEDURES Final Resul t * CT head wo IV contrast (04/22/2024 3:35 PM EDT) Anatomical Region Laterality Modality Head, Neck Computed Tomogra phy us Unknown Practice A IMG CT PROCEDURES Final Resul t documented in this encounter Visit Diagnoses Not on filedocumented in this encounter Additional Health Concerns Assessment Noted Time PHQ-9 Depression Total Score: 3 02/22/20 24 2:00 PM EDT documented as of this encounter Care Teams Linux Kernel Engineer Relationship Specialty Start Date End Date Jamal Jay DO [address] [place] [address] PCP - General Internal Medicine 03/13/23 Saul Abdalla DO [address] [facility] [address] [place] [address] Referring Physician Ophthalmology 02/22/24 Ubaldo Dubose MD [address] [place] [address] Referring Physician Pulmonary Disease 02/22/24 Valdez Castro MD [address] [place] [address] Referring Physician Pediatric Pulmonology 02/22/24 Flex Ramos MD [address] [place] [address] Referring Physician Gastroenterology 02/22/24 Judit Lora MD 3 [facility] 2, [address] [address] Referring Physician Cardiology 02/22/24 documented as of this encounter
--- OUTSIDE RECORDS SUMMARY | 2025-05-03 22:24 | XMS_ITS | Encounter Summary ---
Author Organization [facility] Address [address] [place] [address] Care Team Providers Care Wine Pasteurizer Name Role Phone MistyJamal DO Primary Care Provider [phone] Saul Abdalla DO Unavailable Ubaldo Dubose MD Unavailable Valdez Castro MD Unavailable [phone] Flex Ramos MD Unavailable Judit Lora MD Unavailable Encounter Details Date Type Department Care Team (Late st Contact Info) Description 02/22/2024 Clinisync Result Encounter [facility] External Department Unsolicited Anil Kwok PA [address] [facility] [address] [place] [address] Social History Tobacco Use Types Packs/Day Years [...] 11:21 AM EDT Elvira Meehan M A * Over the past 2 weeks, how often have you been bothered by any of the following problems? Question Answer Date of Assessment Author Little interest or pleasure in doing things Not at all 02/22/2024 2:00 PM EDT Licha Welch LPN Feeling down, depressed, or hopeless Not at all 02/22/2024 2:00 PM EDT Licha Welch LPN Patient Health Questionnaire -2 Score 0 02/22/2024 2:00 PM EDT Licha Welch LPN * Question Answer Date of Assessment Author Trouble falling or staying asleep, or sleeping too much Not at all 02/22/2024 2:00 PM EDT Licha Welch LPN Feeling tired or having little energy Nearly every day 02/22/2024 2:00 PM EDT Licha Welch LPN Poor appetite or overeating Not at all 02/22/2024 2: 00 PM EDT Licha Welch LPN Feeling bad about yourself - or that you are a failure or have let yourself or your family down Not at all 02/22/2024 2:00 PM EDT Licha Welch LPN Trouble concentrating on things, such as reading the newspaper or watching television Not at all 02/22/2024 2:00 PM EDT Licha Welch LPN Moving or speaking so slowly that other people could have noticed? Or the opposite - being so fidgety or restless that you have been moving around a lot more than usual. Not at all 02/22/2024 2:00 PM EDT Licha Welch LPN Thoughts that you would be better off or hurting yourself in some way Not at all 02/22/2024 2:00 PM EDT Licha Welch LP N Patient Health Questionnaire-9 Score 3 02/22/2024 2:00 PM EDT Licha Welch L PN documented as of this encounter Plan of Treatment Upcoming Encounters Date Type Department Care Team (Late st Contact Info) Description 06/25/2025 2:00 PM EDT Office Visit [facility] IM [address] [place] [phone] Jamal Jay, DO [address] [place] [address] 09/10/2025 3:00 PM EST Office Visit [facility] [address] [place] [address] Jamal Jay, DO [address] [place] [address] documented as of this encounter Procedures Procedure Name Priority Date/Time Associated Diagnosis Comments BLOOD CULTURE 2 Routine 02/22/2024 11:11 PM EDT BLOOD CULTURE 1 Routine 02/22/2024 11:00 PM EDT ECG 12-LEAD 02/22/2024 6:40 PM EDT TBH CULTURE URINE Routine 02/22/2024 6:2 5 PM EDT documented in this encounter Results * BLOOD CULTURE 2 (02/22/2024 11:11 PM EDT) BLOOD CULTURE 2 Blood Culture 2 NG5D NO GROWTH AT 5 DAYS.^NO GROWTH AT 5 DAYS. [facility] 02/22/2024 11:1 1 PM EDT 02/22/2024 11:15 PM EDT Narrative [facility] - 02/28/2024 5:23 PM EDT Generic External Data Provider LAB BLOOD ORDERAB LES Final Result Performing Organization Address [facility] de Phone Number [facility] * BLOOD CULTURE 1 (02/22/2024 11:00 PM EDT) BLOOD CULTURE 1 Blood Culture 1 NG5D NO GROWTH AT 5 DAYS.^NO GROWTH AT 5 DAYS. [facility] 02/22/2024 11:0 0 PM EDT 02/22/2024 11:16 PM EDT Narrative [facility] - 02/28/2024 5:23 PM EDT Generic External Data Provider LAB BLOOD ORDERAB LES Final Result Performing Organization Address [facility] Phone Number [facility] * ECG 12-LEAD (02/22/2024 6:40 PM EDT) Anatomical Region Laterality Modality Other 02/22/2024 6:40 PM EDT Narrative 02/24/2024 7:25 [place] [address] Electrocardiograph Report Signed Patient: KARUNA REYNAGA MR#: [id number] : 1945 Acct:[id number] Age/Sex: 79 / F ADM Date: 02/22/24 Loc: MS 216-[address]: Dee Watson D.O. Ordering Physician: Anil Kwok Date of Service: 02/22/24 Procedure(s): ECG 12 lead Accession Number(s): [id number] cc: [facility] Test Date: 2024-02-22 Pat Name: KARUNA REYNAGA Department: Room: - Gender: Female Tin Pot Operator: : 1945 Requested By: Order Number: [id number] Reading MD: NEWTON MELENDEZ Measurements Intervals [place] Rate: 77 P: 18 ND: 164 QRS: 73 QRSD: 100 T: 16 QT: 376 QTc: 407 Interpretive Statements 1100 Sinus rhythm 2420 RSR (QR) in lead V1/V2, consistent with right ventricular conduction delay 8102 Low QRS voltage in chest leads 0102 ARTIFACT PRESENT 9130 borderline ECG Compared to ECG 08/27/2018 22:16:11 No significant changes Electronically Signed On 02-24-2024 7:25:01 EDT by NEWTON MELENDEZ Dictated By: Newton Melendez D.O. Signed By: 02/24/24724 DD/ 184 TD/TT: Brazer Helper Induction: Procedure Note Radiology, Radiologist, MD - 02/24/2024 [place] [address] Electrocardiograph Report Signed Patient: KARUNA REYNAGA EMR#: [id number] : 1945cct:[id number] Age/Sex: 79 / FADM Date: 02/22/24 Loc: MS 216-[address]: Dee Watson D.O. Ordering Physician: Anil Kwok Date of Service: 02/22/24 Procedure(s): ECG 12 lead Accession Number(s): [id number] cc: [facility] Test Date: 2024-02-22 Pat Name: KARUNA REYNAGA Department: Room: - Gender: Female Tin Pot Operator: : 1945 Requested By: Order Number: [id number] Reading MD: NEWTON MELENDEZ Measurements Intervals [place]enton Rate: 77 P: 18 ND: 164 QRS: 73 QRSD: 100 T: 16 QT: 376 QTc: 407 Interpretive Statements 1100 Sinus rhythm 2420 RSR (QR) in lead V1/V2, consistent with right ventricular conduction delay 8102 Low QRS voltage in chest leads 0102 ARTIFACT PRESENT 9130 borderline ECG Compared to ECG 08/27/2018 22:16:11 No significant changes Electronically Signed On 02-24-2024 7:25:01 EDT by NEWTON MELENDEZ Dictated By: Newton Melendez D.O. Signed By:02/24/24 0725 DD/ 184 TD/TT: Brazer Helper Induction: us Anil LALA [facility] Final Resul t * (ABNORMAL) TB CULTURE URINE (02/22/2024 6:25 PM EDT) TB CULTURE URINE O:ESCCOL Isolated TBH TBH CULTURE URINE Urine Culture [place] Count TBH TBH CULTURE URINE >100,000 CFU/ml TB TB CULTURE URINE Organism: 1.1 Antibiotic Interpretation ABAD Status TB TBH CULTURE URINE Amikacin S <=2 F(S) TBH TBH CULTURE URINE Ampicillin S 8 F(S) TBH TBH CULTURE URINE Ampicillin/Sulbact am S <=2 F(S) TBH TBH CULTURE URINE Cefazolin S <=4 F(S) TBH TBH CULTURE URINE Ceftazidime S <=1 F(S) TBH TBH CULTURE URINE Ceftriaxone S <=1 F(S) TBH TBH CULTURE URINE Ciprofloxacin S <=0.25 F(S) TBH TBH CULTURE URINE Ertapenem S <=0.5 F(S) TBH TBH CULTURE URINE Gentamicin S <=1 F(S) TBH TBH CULTURE URINE Imipenem S <=0.25 F(S) TBH TBH CULTURE URINE Levofloxacin S <=0.12 F(S) TBH TBH CULTURE URINE Nitrofurantoin S <=16 F(S) TBH TBH CULTURE URINE Tobramycin S <=1 F(S) TBH TBH CULTURE URINE Trimethoprim/Sulfa methoxazole S <=20 F(S) TBH TBH CULTURE URINE Piperacillin/Tazob actam S <=4 F(S) TBH 02/22/2024 6:25 PM EDT 02/22/2024 6:28 PM EDT Narrative [facility] - 02/25/2024 7:51 AM EDT us Anil [facility] Final [facility] documented in this encounter Visit Diagnoses Not on filedocumented in this encounter Additional Health Concerns Assessment Noted Time PHQ-9 Depression Total Score: 3 02/22/20 24 2:00 PM EDT documented as of this encounter Care Teams Wine Pasteurizer Relationship Specialty Start Date End Date aJmal Jay DO [address] [place] [address] PCP - General Internal Medicine 03/13/23 Saul Abdalla DO [address] [place] [address] Referring Physician Ophthalmology 02/22/24 Ubaldo Dubose MD [address] [place] [address] Referring Physician Pulmonary Disease 02/22/24 Valdez Castro MD [address] [place] [address] Referring Physician Pediatric Pulmonology 02/22/24 Flex Ramos MD [address] [place] [address] Referring Physician Gastroenterology 02/22/24 Judit Lora MD [address] [facility] 2, [address] [place] [address] Referring Physician Cardiology 02/22/24 documented as of this encounter
--- OUTSIDE RECORDS SUMMARY | 2025-05-03 22:24 | XMS_ITS | Encounter Summary ---
Author Organization [facility] Address [address] [facility] [place] [address] Care Team Providers Care Route Sales Delivery Drivers Supervisor Name Role Phone Misty Jamal Adrian DO Primary Care Provider Saul Abdalla DO Unavailable Ubaldo Dubose MD Unavailable Valdez Castro MD Unavailable [phone] Flex Ramos MD Unavailable Judit Lora MD Unavailable Encounter Details Date Type Department Care Team (Late st Contact Info) Description 04/14/2024 Orders Only [facility] [address] [facility] [address] [place] [address] A, Unknown Practice [address] [place], [place] [address] Social History Tobacco Use Types Packs/Day Years [...] 06/25/2025 2:00 PM EDT Office Visit [facility] IM [address] [place] [address] Jamal Jay DO [address] [place] [address] 09/10/2025 3:00 PM EST Office Visit [facility] IM [address] [place] [address] Jamal Jay DO [address] [place] [address] documented as of this encounter Procedures Procedure Name Priority Date/Time Associated Diagnosis Comments MAMMOGRAM* Routine 04/14/2024 8:50 AM EDT documented in this encounter Results * MAMMOGRAM* (04/14/2024 8:50 AM EDT) Anatomical Region Laterality Modality Radiographic Eklly ging us Unknown Practice A IMG XR PROCEDURES Final Resul t documented in this encounter Visit Diagnoses Not on filedocumented in this encounter Additional Health Concerns Assessment Noted Time PHQ-9 Depression Total Score: 3 02/22/20 24 2:00 PM EDT documented as of this encounter Care Teams Route Sales Delivery Drivers Supervisor Relationship Specialty Start Date End Date Jamal Jay DO [address] [place] [address] PCP - General Internal Medicine 03/13/23 Saul Abdalla DO [address] [place] [address] Referring Physician Ophthalmology 02/22/24 Ubaldo Dubose MD [address] [place] [address] Referring Physician Pulmonary Disease 02/22/24 Valdez Castro MD [address] [place] [address] [address] [place] [address] Referring Physician Pediatric Pulmonology 02/22/24 Flex Ramos MD [address] [place] [address] [address] [place] [address] Referring Physician Gastroenterology 02/22/24 Judit Lora MD [address] [facility] [address], [address] [place] [address] Referring Physician Cardiology 02/22/24 documented as of this encounter
--- OUTSIDE RECORDS SUMMARY | 2025-05-03 22:24 | XMS_ITS | Encounter Summary ---
Author Organization [facility] Address [address] [place] [address] Care Team Providers Care Pbx Repairer Name Role Phone Jamal Jay DO Primary Care Provider Saul Abdalla DO Unavailable [phone] Ubaldo Dubose MD Unavailable [phone] Valdez Castro MD Unavailable [phone] Flex Ramos MD Unavailable Judit Lora MD Unavailable Reason for Visit * Reason Comments Med Refill Encounter Details Date Type Department Care Team (Late st Contact Info) Description 05/21/2023 Refill [facility] [address] [facility] [address] [place] [phone] Jamal Jay DO [address] [facility] [address] [place] [address] Senile osteoporosis Social History Tobacco Use Types Packs/Day Years Used Date Smoking Tobacco: Never Assessed Comments Unknown Sex and Gender Information Value Date Recorded Sex Assigned at Not on file Legal Sex Female 6:36 PM EDT Gender Identity Not on file Sexual Orientation Not on file documented as of this encounter Miscellaneous Notes * Telephone Encounter - Digna Sharma LPN - 05/22/2023 7:49 AM EDT Approving, but needs appt for additional refills. documented in this encounter Plan of Treatment Upcoming Encounters Date Type Department Care Team (Late st Contact Info) Description 06/25/2025 2:00 PM EDT Office Visit [facility] IM [address] [place] [address] Jamal Jay, [address] [place] [address] 09/10/2025 3:00 PM EST Office Visit [facility] IM [address] [place] [address] Jamal Jay DO [address] [place] [address] documented as of this encounter Visit Diagnoses Diagnosis Senile osteoporosis Senile osteoporosis documented in this encounter Care Teams Pbx Repairer Relationship Specialty Start Date End Date Jamal Jay DO [address] [place] [address] PCP - General Internal Medicine 03/13/23 Saul Abdalla DO [address] [place] [address] Referring Physician Ophthalmology 02/22/24 Ubaldo Dubose MD [address] [place] [address] Referring Physician Pulmonary Disease 02/22/24 Valdez Castro MD [address] [facility] [address] [place] [address] Referring Physician Pediatric Pulmonology 02/22/24 Flex Ramos MD [address] [facility] [address] [place] [address] Referring Physician Gastroenterology 02/22/24 Judit Lora MD [address] [facility] 2, [facility] [address] [place] [address] Referring Physician Cardiology 02/22/24 documented as of this encounter
--- OUTSIDE RECORDS SUMMARY | 2025-05-03 22:24 | XMS_ITS | Encounter Summary ---
Author Organization [facility] Address [address] [place] [address] Care Team Providers Care Optical Store Manager Name Role Phone Jamal Jay Primary Care Provider + Source Comments In the event this information is protected by the Federal Confidentiality of Alcohol and Drug AbusePatient Records regulations: The Federal rules restrict any use of the information to criminally investigate or prosecute any alcohol or drug abuse patient.[facility] Encounter Details Date Type Department Care Team (Late st Contact Info) Description 12/29/2023 Get Medical Advice Pulmonary Medicine [address] [address] Ubaldo Dubose MD [address] [place] [address] Fyi, update on flutter device Social History Tobacco Use Types Packs/Day Years [...] risk 6 12/28/2023 Data from: https://www.neighborhoodatlas.medicine.[facility].edu/. Last address used for calculation [address] [place] [address] [address] 12/28/2023 Comments No Sex and Gender Information Value Date Recorded Sex Assigned at Not on file Legal Sex Female 9:56 AM EST Gender Identity Not on file Sexual Orientation Not on file documented as of this encounter Plan of Treatment Upcoming Encounters Date Type Department Care Team (Latest Contact Info) Description 06/24/2025 3:00 PM EDT [facility] Neurology [address] [place] [phone] Sohail William MD, PhD [address] [place] [address] 6 months follow up-Focal epilepsy documented as of this encounter Visit Diagnoses Not on filedocumented in this encounter Care Teams Optical Store Manager Relationship Specialty Start Date End Date Jamal Jay DO [address] [place] [address] PCP - General Internal Medicine 12/25/23 documented as of this encounter
--- OUTSIDE RECORDS SUMMARY | 2025-05-03 22:24 | XMS_ITS | Encounter Summary ---
Author Organization [facility] Address [address] [place] [address] Care Team Providers Care Insurance Administrator Name Role Phone Jamal Jay DO Primary Care Provider [phone] Saul Abdalla DO Unavailable Ubaldo Dubose MD Unavailable [phone] Valdez Castro MD Unavailable [phone] Flex Ramos MD Unavailable Judit Lora MD Unavailable Encounter Details Date Type Department Care Team (Late st Contact Info) Description 12/27/2023 Clinisync Result Encounter [facility] External Department Unsolicited [...] Office Visit [facility] [address] [facility] [address] [place] [phone] Jamal Jay DO [address] [facility] [address] [place] [address] 09/10/2025 3:00 PM EST Office Visit [facility] [address] [place] [address] MistyJamal, DO [address] [place] [address] documented as of this encounter Procedures Procedure Name Priority Date/Time Associated Diagnosis Comments CT CHEST WO IV CONTRAST 12/27/2023 1:09 PM EST documented in this encounter Results * CT chest wo IV contrast (12/27/2023 1:09 PM EST) Anatomical Region Laterality Modality Body, Chest Computed Tomogra phy 12/27/2023 1:09 PM EST Narrative 12/28/2023 9:32 AM EST * * *Final Report* * * DATE OF EXAM: Dec 27 2023 1:09PM [facility] 0541 - CT CHEST WO [...] calcified gallstone is noted in the gallbladder. Cloud Systems Architect (topogram) images: No additional findings. IMPRESSION: 1. [...] Date/Time: Dec 28 2023 9:11A Dictated by: NERI WOODSON MD This examination was interpreted and the report reviewed and electronically signed by: NERI WOODSON MD on Dec 28 2023 9:30AM EST Thank you for allowing us to participate in the care of your patient. Should there be any questions regarding this interpretation, please call [phone]. If you are unable to reach us at the number above, please feel free to contact [facility] at [phone]. [id number]^[email or web address]^ACN Procedure Note Radiology, Radiologist, - 12/28/2023 * * *Final Report* * * DATE OF EXAM: Dec 27 2023 1:09PM [facility] 0541 - CT CHEST WO [...] Pleural space: No pleural effusion, pleural thickening, orpneumothorax. Lower neck, lymph nodes, and mediastinum: The [...] calcified gallstone is noted in the gallbladder. Cloud Systems Architect (topogram) images: No additional findings. IMPRESSION: 1. [...] Date/Time: Dec 28 2023 9:11A Dictated by: NERI WOODSON MD This examination was interpreted and the report reviewed and electronically signed by: NERI WOODSON MD on Dec 28 2023 9:30AM EST Thank you for allowing us to participate in the care of your patient. Should there be any questions regarding this interpretation, please call [phone]. If you are unable to reach us at the number above, please feel free to contact [facility] at [phone]. [id number]^[email or web address]^ACN us Generic External Data Provider IMG CT PROCEDURES Final Result documented in this encounter Visit Diagnoses Not on filedocumented in this encounter Care Teams Insurance Administrator Relationship Specialty Start Date End Date Jamal Jay DO [address] [place] [address] PCP - General Internal Medicine 03/13/23 Saul Abdalla DO [address] [place] [address] Referring Physician Ophthalmology 02/22/24 Ubaldo Dubose MD [address] [place] [address] Referring Physician Pulmonary Disease 02/22/24 Valdez Castro MD [address] [place] [address] Referring Physician Pediatric Pulmonology 02/22/24 Flex Ramos MD [address] [place], [place] [address] Referring Physician Gastroenterology 02/22/24 Judit Lora MD [address] [facility] 2, [address] [place] [address] Referring Physician Cardiology 02/22/24 documented as of this encounter
--- OUTSIDE RECORDS SUMMARY | 2025-05-03 22:24 | XMS_ITS | Encounter Summary ---
Author Organization [facility] Address [address] [place] [address] Care Team Providers Care Electrical Accessories I Assembler Name Role Phone NaunKostas villa Lopez DO Primary Care Provider [phone] Jamal Jay DO Primary Care Provider + Source Comments In the event this information is protected by the Federal Confidentiality of Alcohol and Drug AbusePatient Records regulations: The Federal rules restrict any use of the information to criminally investigate or prosecute any alcohol or drug abuse patient.[facility] Encounter Details Date Type Department Care Team (Late st Contact Info) Description 12/11/2023 Patient Msg Respiratory [place] [address] [place] [address] Provider, [facility]cf Appointment with Social History Tobacco Use Types Packs/Day Years [...] N ot on file 10/13/2020 Data from: https://www.neighborhoodatlas.medicine.[facility].edu/. Last address used for calculation Not on file 10/13/2020 Comments No Sex and Gender Information Value Date Recorded Sex Assigned at Not on file Legal Sex Female 9:56 AM EST Gender Identity Not on file Sexual Orientation Not on file documented as of this encounter Plan of Treatment Upcoming Encounters Date Type Department Care Team (Latest Contact Info) Description 06/24/2025 3:00 PM EDT [facility] Neurology [address] [place] [phone] Sohail William MD, PhD [address] [place] [address] 6 months follow up-Focal epilepsy documented as of this encounter Visit Diagnoses Not on filedocumented in this encounter Care Teams Electrical Accessories I Assembler Relationship Specialty Start Date End Date Kostas Vance DO [address] [facility] [place] [address] PCP - General 05/25/09 12/24/23 Jamal Jay DO [address] [address] PCP - General Internal Medicine 12/25/23 documented as of this encounter
--- OUTSIDE RECORDS SUMMARY | 2025-05-03 22:24 | XMS_ITS | Encounter Summary ---
Author Organization [facility] Address [address] [place] [address] Care Team Providers Care Casting Machine Operator Automatic Name Role Phone Jamal Jay Primary Care Provider + Source Comments In the event this information is protected by the Federal Confidentiality of Alcohol and Drug AbusePatient Records regulations: The Federal rules restrict any use of the information to criminally investigate or prosecute any alcohol or drug abuse patient.[facility] Encounter Details Date Type Department Care Team (Late st Contact Info) Description 02/13/2024 Get Medical Advice Pulmonary Medicine [address] [address] Ubaldo Dubose MD [address] [place] [address] Questions regarding moist cough post appt Social History Tobacco Use Types Packs/Day Years [...] is lower risk 6 12/28/2023 Data from: https://www.neighborhoodatlas.medicine.[facility].edu/. Last address used for calculation [address] [place] [address] [address] 12/28/2023 Comments No Sex and Gender Information Value Date Recorded Sex Assigned at Not on file Legal Sex Female 9:56 AM EST Gender Identity Not on file Sexual Orientation Not on file documented as of this encounter Plan of Treatment Upcoming Encounters Date Type Department Care Team (Latest Contact Info) Description 06/24/2025 3:00 PM EDT [facility] Neurology [address] [place] [phone] Sohail William MD, PhD [address] [place] [address] 6 months follow up-Focal epilepsy documented as of this encounter Visit Diagnoses Not on filedocumented in this encounter Care Teams Casting Machine Operator Automatic Relationship Specialty Start Date End Date Jamal Jay DO [address] [place] [address] PCP - General Internal Medicine 12/25/23 documented as of this encounter
[2025-05-03 22:25] VITALS: BP 142/95; PULSE 69; TEMP 36.8; O2SAT 95; BMI 27.7
--- OUTSIDE RECORDS SUMMARY | 2025-05-03 22:25 | XMS_ITS | Clinical Summary ---
Author Organization [facility] Address [address] [place] [address] Care Team Providers Care Social Psychologist Name Role Phone Jamal Jay DO Primary Care Provider + Allergies Active Allergy Reactions Criticality Noted Date Comments Propoxyphene N-Acetaminophen Rash 06/29/2020 Latex Rash 06/29/2009 Midazolam Mental Status Change 01/09/2023 Opioids - Morphine Analogues Mental Status Change,Unknown 12/26/2022 Other Reaction(s): unknown Penicillins Rash 06/29/2009 Propoxyphene Other: See Comments 08/21/2023 Other Reaction(s): unknown Strawberries Rash 06/29/2009 Sulfa (Sulfonamide Antibiotics) Rash 06/29/2009 Medications clopidogrel bisulfate(PLAVIX 75 MG TAB) Take one(1) tablet daily. 0 9 Active CALCIUM 500 MG TAB Take one(1) tablet twice daily. 0 9 Active MULTIVITAMIN TAB Take one(1) tablet daily. 0 9 Active levothyroxine (SYNTHROID) 50 mcg tablet 50 mcg. 0 Active Cholecalciferol, Vitamin D3, 50 mcg (2,000 unit) cap Daily 1 Active estradiol (ESTRACE) 0.01 % (0.1 mg/gram) vaginal cream Use 1 g vaginally. 0 Active Ibandronate 150 mg tablet Take 1 tablet by mouth. 0 Active TRUEPLUS LANCETS 33 gauge USE TO TEST ONCE DAILY EVERY MORNING. 3 Active liothyronine (CYTOMEL) 5 mcg tablet Take 1 tablet by mouth every 12 hours. 3 Active sodium chloride (NEBUSAL) 3 % nebulizer solution Use 2 mL via nebulizer two times a day. 360 mL 3 4 Active lamoTRIgine (LAMICTAL) 25 mg tablet take 1 qhs for 2 weeks, then 1 pill bid for two weeks, then 1 pill in AM, 2pill in PM for week, then 2 pills bid for 1 week, then 2 pill in AM, 3 pill in PM for week, then 3 pills bid and stay at that dose. 180 tablet 2 4 Active azithromycin (ZITHROMAX) 250 mg tabletIndications :Bronchiectasis without complication (HCC) Take 1 tablet by mouth every Sunday, Sunday, and Sunday. 30 tablet 1 5 Active ipratropium-albut fantasma (DUONEB) 0.5 mg-3 mg(2.5 mg base)/3 mL nebu Inhale contents of 1 vial via nebulizer as instructed every 4 hours as needed for wheezing/short ness of breath. 360 mL 5 Active cannabidiol (EPIDIOLEX) 100 mg/mL oral liquid Take 2 mL by mouth two times a day for 180 days. 360 mL 1 5 09/20/20 25 Active Active Problems Problem Noted Date Diagnosed Date Cough 06/29/2020 Encounters Date Type Department Care Team Description 03/24/2025 Telephone Pulmonary Medicine [address] [address] Ubaldo Dubose MD Received Outside Medical Records 03/24/2025 Refill Neurology [address] [place] [address] Sohail William MD, PhD Refill Request 03/20/2025 Refill Neurology [address] [place] [address] Sohail William MD, PhD 03/18/2025 Abstract Pulmonary Medicine [address] [address] Ubaldo Dubose MD 03/17/2025 Refill Pulmonology [facility] [address] [place] [address] Ubaldo Dubose MD Refill Request 03/17/2025 Refill Pulmonology [facility] [address] [place] [address] Ubaldo Dubose MD Refill Request 03/16/2025 Get Medical Advice Pulmonology [facility] [address] [place] [address] Ubaldo Dubose MD Smart vest from Last 3 Months Immunizations Immunization Administration Dates Next Due AS03 adjuvant 07/15/2020,09/10/2019,07/25/2018 influenza (HD-IIV3) vaccine, age 65+ yr, high dose, trivalent, PF (FLUZONE HIGH-DOSE) 08/17/2022,08/16/2021,08/17/2016 influenza (IIV4) vaccine, ag e 6 mo - 64 yr, quadrivalent, PF (AFLURIA, FLUARIX, FLULAVAL, FLUZONE) 10/22/2017 influenza (aIIV3) vaccine, a ge 65+ yr, trivalent, PF (FLUAD) 07/15/2020,09/10/2019,07/25/2018 influenza (aIIV4) vaccine, a ge 65+ yr, quadrivalent, PF (FLUAD QUAD) 08/23/2023 pneumococcal polysaccharide (PPV23) vaccine, 23 valent (PNEUMOVAX 23) 08/04/2020 zoster (RZV) vaccine, recomb inant (SHINGRIX) 05/30/2022,02/28/2022 Family History Medical History Relation Comments Coronary Artery Disease Brother Thyroid Daughter hypothyroidism Stroke Mother Cancer Sister cervical Stroke Sister Relation Status Comments Brother Daughter Mother Sister Social History Tobacco Use Types Packs/Day Years Used Date Smoking Tobacco: Former Cigarettes 1 10 0 11/05/1969 - 11/05/1979 Smokeless Tobacco: Never Tobacco Cessation:Counseling Given: Not Answered Alcohol Use Standard Drinks/Week Comments No 0 (1 standard drink = 0.6 oz pur e alcohol) Area Deprivation Index Answer Date Ruel rded National Score (1-100), lower number is lower ri sk 73 12/28/2023 State Score (1-10), lower number is lower risk 6 12/28/2023 Data from: https://www.neighborhoodatlas.medicine.[facility].edu/. Last address used for calculation [address] 12/28/2023 Comments No Sex and Gender Information Value Date Recorded Sex Assigned at Not on file Legal Sex Female 9:56 AM EST Gender Identity Not on file Sexual Orientation Not on file Last Filed Vital Signs Vital Sign Reading Time Taken Comments Blood Pressure 137/65 12/28/2023 1:29 PM EST Pulse 67 12/28/2023 1:29 PM EST Temperature 36.4 C (97.6 F) 12/28/2023 1:29 PM EST Respiratory Rate 16 12/28/2023 1:29 PM EST Oxygen Saturation 97% 12/28/2023 1:29 PM EST Inhaled Oxygen Concentration - - Weight 79.4 kg (175 lb) 12/28/2023 1:29 PM EST Height 146.5 cm (4' 9.68 ) 06/29/2009 11:16 AM E DT Body Mass Index - - Plan of Treatment Upcoming Encounters Date Type Department Care Team (Latest Contact Info) Description 06/24/2025 3:00 PM EDT [facility] Neurology [address] [place] [address] Sohail William MD, PhD [address] [place] [address] 6 months follow up-Focal epilepsy Health Maintenance Due Date Last Done Comments Anxiety Screening 1963 Depression Screening 1963 DTaP,Tdap,Td Vaccine (1 - Tdap) 1965 RSV Vaccine (1 - 1-dose 75+ series) 2021 Covid-19 Vaccine (5 - 2023-2 5 season) 2024 11/10/2022, 07/06/2021, 02/03/2021, Additional history exists Advance Directive Discussion 11/05/2024 Medicare Advantage Annual Wellness Visit 11/05/2024 Diabetes Screening 08/24/2027 08/24/2024, 0 02/20/2024, 07/28/2022, Additional history exists Pneumococcal Vaccine: 50+ Completed 08/04/2020, Shingrix Vaccine Completed 05/30/2022, 02/28/2022 Mammogram Screening Discontinued 10/18/2022, 03/27/2022, 03/25/2021, Additional history exists Cologuard (FIT-DNA) Discontinued 11/21/2022, 9 Colorectal Cancer Screening Discontinued Bone Density Screening Completed , 10/20/2021, 12/24/2018 Influenza Vaccine Completed 08/25/2024, , 08/17/2022, Additional history exists CT Colonography Discontinued Colonoscopy Discontinued Fecal Occult Blood Discontinued Sigmoidoscopy Discontinued Procedures Procedure Name Priority Date/Time Associated Diagnosis Comments EXTERNAL IMAGING 03/24/2025 1:[address] OUTSIDE CD DICOM IMPORT 03/14/2025 COMPREHENSIVE METABOLIC PANEL Routine 07/28/2022 11:07 AM EDT Well controlled type 2 diabetes mellitus with neurological manifestations (HCC) Unspecified hypothyroidism from Last 3 Months or Most Recently Relevant to Health Maintenance Results * EXTERNAL IMAGING (03/24/2025 1:44 PM EDT) Anatomical Region Laterality Modality Other External Provider PA-C RADIOLOGY Final Res ult * CT-CT angio chest PE protocol IMPORT (03/14/2025) Anatomical Region Laterality Modality Other 03/14/2025 Narrative 03/25/2025 2:57 AM EDT Images were obtained outside of [facility] Procedure Note Provider, [facility] [place] - 03/25/2025 Images were obtained outside of [facility] us Ccf Provider RADIOLOGY Final Result * (ABNORMAL) COMP METABOLIC PANEL (07/28/2022 11:07 AM EDT) Protein, Total 6.9 6.3 - 8.0 g/dL 07/28/2022 11:37 AM EDT [facility] Albumin 4.2 3.9 - 4.9 g/dL 07/28/2022 11:37 AM EDT [facility] Calcium, Total 9.7 8.5 - 10.2 mg/dL 07/28/2022 11:37 AM [facility] Bilirubin, Total 0.3 0.2 - 1.3 mg/dL 07/28/2022 11:37 AM [facility] Alkaline Phosphatase 54 34 - 123 U/L 07/28/2022 11:37 AM [facility] AST 12(L) 13 - 35 U/L 07/28/2022 11:37 AM T [facility] ALT 10 7 - 38 U/L 07/28/2022 11:37 AM [facility] Glucose 95 74 - 99 mg/dL 07/28/2022 11:37 AM [facility] Comment: The [place] [employer] (ADA) provides guidance for cutoff values for fasting glucose and random glucose. The ADA defines fasting as no caloric intake for at least 8 hours. Fasting plasma glucose results between 100 to 125 mg/dL indicate increased risk for diabetes (prediabetes). Fasting plasma glucose results greater than or equal to 126 mg/dL meet the criteria for diagnosis of diabetes. In the absence of unequivocal hyperglycemia, results should be confirmed by repeat testing. In a patient with classic symptoms of hyperglycemia or hyperglycemic crisis, random plasma glucose results greater than or equal to 200 mg/dL meet the criteria for diagnosis of diabetes. Reference: Standards of Medical Care in Diabetes 2016, [place] [employer]. Diabetes Care. 2016.39(Suppl 1). BUN 22(H) 7 - 21 mg/dL 07/28/2022 11:37 AM [facility] Creatinine 0.74 0.58 - 0.96 mg/dL 07/28/2022 11:37 AM [facility] Sodium 140 136 - 144 mmol/L 07/28/2022 11:37 AM [facility] Potassium 4.4 3.7 - 5.1 mmol/L 07/28/2022 11:37 AM [facility] Chloride 102 97 - 105 mmol/L 07/28/2022 11:37 AM EDT [facility] CO2 29 22 - 30 mmol/L 07/28/2022 11:37 AM EDT [facility] Anion Gap 9 9 - 18 mmol/L 07/28/2022 11:37 AM EDT [facility] Estimated Glomerular Filtration Rate 84 >=60 mL/min/1.7 3m 07/28/2022 11:37 AM EDT [facility] Comment:Estimated Glomerular Filtration Rate (eGFR) is calculated using the 2020 CKD-EPI creatinine equation. This equation utilizes serum creatinine, sex, and age as parameters. The creatinine assay has traceable calibration to isotope dilution- mass spectrometry. Refer to KDIGO guidelines for clinical interpretation. In patients with unstable renal function, e.g. those with acute kidney injury, the eGFR may not accurately reflect actual GFR. Blood BLOOD SPECIMEN / Unknown Venipuncture / Unknown 07/28/2022 11:07 AM EDT 07/28/2022 11:07 AM EDT Baron Sherman DO LABORATORY Final Result [facility] [address] [place] [address] from Last 3 Months or Most Recently Relevant to Health Maintenance Insurance [address] [place] [address] [facility] MEDICARE ADVANTAGE PPO Care Teams Social Psychologist Relationship Specialty Start Date End Date Jamal Jay DO [address] [place] [address] PCP - General Internal Medicine 12/25/23
--- OUTSIDE RECORDS SUMMARY | 2025-05-03 22:25 | XMS_ITS | Encounter Summary ---
Author Organization [facility] Address [address] [place] [address] Phone Care Team Providers Care Stoker Installation Mechanic Name Role Phone Jamal Jay DO Primary Care Provider [phone] Encounter Details Date Type Department Care Team (Late st Contact Info) Description 04/14/2024 Scanned Document [facility] [address] [place] [phone] Scanning, Generic Provider Social History Tobacco Use Types Packs/Day Years Used Date Smoking Tobacco: Former Cigarettes Smokeless Tobacco: Never Alcohol Use Standard Drinks/Week Comments Never 0 (1 standard drink = 0.6 oz pur e alcohol) Comments Unknown Sex and Gender Information Value Date Recorded Sex Assigned at Not on file Legal Sex Female 9:21 PM EST Gender Identity Not on file Sexual Orientation Not on file documented as of this encounter Plan of Treatment Not on file documented as of this encounter Visit Diagnoses Not on filedocumented in this encounter Additional Health Concerns Assessment Noted Time A fall risk assessment has been complete d for the patient 03/10/2024 1:13 PM EDT documented as of this encounter Care Teams Stoker Installation Mechanic Relationship Specialty Start Date End Date Jamal Jay DO [address] [place] [address] PCP - General 11/05/99 documented as of this encounter
--- OUTSIDE RECORDS SUMMARY | 2025-05-03 22:25 | XMS_ITS | Clinical Summary ---
Author Organization [facility] Address [address] [place] [address] Care Team Providers Care Fleet Director Name Role Phone Jamal Jay DO Primary Care Provider Saul Abdalla DO Unavailable [phone] Ubaldo Dubose MD Unavailable [phone] Valdez Castro MD Unavailable [phone] Flex Ramos MD Unavailable Judit Lora MD Unavailable Allergies Active Allergy Reactions Criticality Noted Date Comments Codeine 08/21/2023 Other Reaction(s): unknown Latex Rash Low 06/29/2009 Midazolam Hallucinations 01/09/2023 Other Reaction(s): Confusion, Mental Status Change Other Rash Low 08/21/2023 Penicillins Rash Low 06/29/2009 Other Reaction(s): unknown Propoxyphene 08/21/2023 Other Reaction(s): unknown Sulfa Antibiotics Rash Low 06/29/2009 Other Reaction(s): unknown Medications levothyroxine (Synthroid, Levoxyl) 50 MCG tablet Take 50 mcg by mouth in the morning. Take before meals. Active LOPERAMIDE HCL PO Daily as needed. Active liothyronine (Cytomel) 5 MCG tablet Take 5 mcg by mouth in the morning and 5 mcg before bedtime. Active sodium chloride 3 % nebulizer solution 04/21/20 24 Active clopidogrel (Plavix) 75 MG tabletIndications :Brain injury with open intracranial wound and no loss of consciousness, subsequent encounter Take 1 tablet (75 mg) by mouth Daily 90 tablet 3 06/12/20 24 Active ibandronate (Boniva) 150 MG tabletIndications :Senile osteoporosis Take 1 tablet (150 mg) by mouth every 30 (thirty) days Take in morning with full glass of water on an empty stomach. No food, drink, meds, or lying down for 60 minutes after. 3 tablet 3 08/06/20 24 Active simvastatin (Zocor) 20 MG tabletIndications :Mixed hyperlipidemia Take 1 tablet (20 mg) by mouth at bedtime 90 tablet 3 08/06/20 24 Active TRUEplus Lancets 33G miscIndications:T ype II or unspecified type diabetes mellitus with neurological manifestations, not stated as uncontrolled(250. 60) ([facility]) USE TO TEST ONCE DAILY EVERY MORNING. 100 each 3 08/14/20 24 Active azithromycin (Zithromax) 250 MG tablet Take 250 mg by mouth Daily Active estradiol (Estrace) 0.1 MG/GM vaginal creamIndications: Atrophic vaginitis Insert 1 g into the vagina 2 (two) times a week 42.5 g 3 09/01/20 24 Active semaglutide (Ozempic, 1 MG/DOSE,) 4 MG/3ML solution pen-injectorIndic ations:Type 2 diabetes mellitus with other specified complication, without long-term current use of insulin ([facility]) INJECT 1 MG SUBCUTANEOUSLY ONCE A WEEK 9 mL 3 09/26/20 24 Active glucose blood (True Metrix Blood Glucose Test) test stripIndications: Type 2 diabetes mellitus with peripheral neuropathy ([facility]) USE TO TEST BLOOD GLUCOSE ONCE DAILY DIRECTED 100 strip 3 12/09/19 25 Active furosemide (Lasix) 20 MG tabletIndications :Edema, unspecified type Take 0.5 tablets (10 mg) by mouth Daily 90 tablet 1 03/05/20 25 Active Epidiolex 100 MG/ML solution Take 2 mL by mouth two times a day. 01/17/20 25 Active ipratropium-albut fantasma (Duo-Neb) 0.5-2.5 mg/3 mL nebulizer solution Take 3 mL by nebulization every 6 (six) hours if needed for wheezing or shortness of breath Active omeprazole (PriLOSEC) [address] capsuleIndication s:Gastroesophagea l reflux disease without esophagitis Take 1 capsule (40 mg) by mouth in the morning. Take before meals. Do not crush or chew. 90 capsule 3 04/02/20 25 026 Active oxybutynin XL (Ditropan-XL) 5 MG 24 hr tabletIndications :OAB (overactive bladder) Take 1 tablet (5 mg) by mouth at bedtime 90 tablet 3 04/02/20 25 Active nitrofurantoin, macrocrystal-mono hydrate, (Macrobid) 100 MG capsuleIndication s:Urinary tract infection without hematuria, site unspecified Take 1 capsule (100 mg) by mouth every other day And PRN as needed 60 capsule 3 04/21/20 25 Active nitrofurantoin, macrocrystal-mono hydrate, (Macrobid) 100 MG capsuleIndication s:Recurrent UTI Take 1 capsule (100 mg) by mouth every other day And twice a day for 5 days as directed 90 capsule 1 04/23/20 25 Active albuterol HFA 90 mcg/act inhalerIndication s:Pulmonary fibrosis (HCC) Inhale 2 puffs every 4 (four) hours if needed for wheezing or shortness of breath 18 g 3 04/30/20 25 Active nitrofurantoin, macrocrystal-mono hydrate, (Macrobid) 100 MG capsuleIndication s:Urinary tract infection without hematuria, site unspecified Take 1 capsule (100 mg) by mouth in the morning and 1 capsule (100 mg) before bedtime. 10 capsule 3 04/22/20 24 025 Disconti nued(Reo rder) nitrofurantoin, macrocrystal-mono hydrate, (Macrobid) 100 MG capsuleIndication s:Recurrent UTI Take 1 capsule (100 mg) by mouth every other day 90 capsule 1 03/05/20 25 025 Disconti nued(Reo rder) albuterol HFA 90 mcg/act inhalerIndication s:Pulmonary fibrosis (HCC) INHALE 2 PUFFS BY MOUTH EVERY 4 HOURS NEEDED 8.5 g 03/17/20 25 025 Disconti nued(Reo rder) Active Problems Problem Noted Date Diagnosed Date Ankylosing spondylitis lumbar region 04/08/2025 Bronchiectasis with acute lower respiratory infe ction 08/25/2024 Recurrent UTI 08/25/2024 Seizure 04/24/2024 Traumatic brain injury with loss of consciousnes s 04/24/2024 DISH (diffuse idiopathic skeletal hyperostosis) 02/25/2024 Age-related nuclear cataract of both eyes 2023 Combined hyperlipidemia 08/20/2023 Dementia associated with oth er underlying disease without behavioral disturbance 08/20/2023 Type 2 diabetes mellitus with peripheral neuropa thy 08/20/2023 Gastroesophageal reflux disease without esophagi tis 08/20/2023 Hypothyroidism 08/20/2023 Osteoporosis 08/20/2023 Urinary incontinence 08/20/2023 Resolved Problems Problem Noted Date Diagnosed Date Resolved Date NSIP (nonspecific interstitial pneumonia) 02/25/2024 08/25/2024 Shortness of breath 02/25/2024 08/25/20 Chronic cough 12/05/2023 08/25/2024 Chest congestion 12/05/2023 08/25/2024 Chronic vasomotor rhinitis 12/05/2023 1 Need for immunization against influenza 08/23/2023 08/25/2024 Moderate asthma without complication 08/20/2023 08/25/2024 Pulmonary fibrosis 08/20/2023 Encounters Date Type Department Care Team Description 05/03/2025 Telephone [facility] [address] [place] [address] Susanna Kapadia, DO On-Call. 04/30/2025 Refill [facility] [address] [place] [address] Jamal Jay, DO Pulmonary fibrosis (HCC) 04/23/2025 Telephone [facility] [address] [place] [address] Ermias Khan MA 04/21/2025 Refill [facility] [address] [place] [address] Aixa Ferrell LPN Urinary tract infection without hematuria, site unspecified 04/08/2025 Results Follow-Up [facility] [address] [place] [phone] Jamal Jay DO Ankylosing spondylitis lumbar region (HCC) (Primary Dx) 04/07/2025 2:00 PM EDT Ancillary Procedure [facility] [address] [facility] [place] [address] Coccyx pain; Pain in sacrum 04/07/2025 Travel 04/06/2025 Telephone [facility] [address] [place] [phone] [place] Kh[place], [place] Tailbone Pain 04/02/2025 Refill [facility] [address] [place] [address] Jamal Jay DO OAB (overactive bladder) 04/02/2025 Refill [facility] [address] [place] [address] Jose Luis Montes, MARIAN Gastroesophageal reflux disease without esophagitis 03/25/2025 2:30 PM EDT Office Visit [facility] [address] [place] [phone] Jamal Jay DO Bronchiectasis with acute lower respiratory infection (HCC) (Primary Dx); Pneumonia due to human metapneumovirus; Hilar adenopathy; Severe persistent reactive airway disease with acute exacerbation (HCC); Pulmonary hypertension, unspecified (HCC); Chronic reflux esophagitis; Traumatic brain injury with loss of consciousness, subsequent encounter; 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 (HCC); Type 2 diabetes mellitus with peripheral neuropathy (HCC); Hypothyroidism, unspecified type ; Medication management 03/25/2025 Bamboo flowsheet [facility] [address] [place] [phone] Jamal Jay DO 03/25/2025 Travel 03/17/2025 Patient Outreach [facility] [place] [employer] [facility] [place] [phone] Cathy Isaacs LPN 03/17/2025 Refill [facility] [address] [place] [address] Jamal Jay DO Pulmonary fibrosis (HCC) 03/17/2025 Telephone [facility] [address] [place] [address] PortolaAixa jansen, SHAAN patient refuses Home Health PT 03/05/2025 3:00 PM EDT Office Visit [facility] [address] [place] [address] Jamal Jay DO Bronchiectasis without complication (HCC) (Primary Dx); Edema, unspecified type; Recurrent UTI; Seizure (HCC); Traumatic brain injury with loss of consciousness, subsequent encounter; DISH (diffuse idiopathic skeletal hyperostosis); Hypothyroidism, unspecified type ; Combined hyperlipidemia ; Medicare annual wellness visit, subsequent; Advance care planning; Type 2 diabetes mellitus with peripheral neuropathy (HCC) 03/05/2025 Travel 03/02/2025 Results Follow-Up [facility] [address] [place] [address] Aixa Ferrell LPN 02/25/2025 External Result Encounter [facility] External Department Unsolicited Jamal Jay DO 02/25/2025 Clinisync Result Encounter [facility] External Department Unsolicited Jamal Jay, 02/25/2025 Telephone [facility] [address] [place] [address] Ermias Khan, [place] 02/06/2025 External Result Encounter [facility] External Department Unsolicited Jose Luis Montes NP 02/06/2025 External Result Encounter [facility] External Department Unsolicited Jamal Jay, 02/06/2025 External Result Encounter [facility] External Department Unsolicited Jamal Jay, 02/06/2025 External Result Encounter [facility] External Department Unsolicited Jamal Jay, from Last 3 Months Immunizations Immunization Administration Dates Next Due Influenza, Seasonal, Quadrivalent, Adjuvanted Influenza, trivalent, adjuvanted 08/25/2024 Pneumococcal Conjugate PCV 13 11/20/2014 Pneumococcal Polysaccharide PPSV23 08/04/2020 Zoster, Recombinant 05/30/2022,02/28/2022 Family History Medical History Relation Name Comments heart concerns Brother Heart disease Father Schizophrenia Mother Stroke Sister Relation Name Status Comments Brother Daughter 1 Alive Daughter 2 Alive Father Mother Sister Son Alive Social History Tobacco Use Types Packs/Day Years Used Date Smoking Tobacco: Former Cigarettes Q uit: 11/05/1979 Passive Smoke Exposure: Past Smokeless Tobacco: Never Tobacco Cessation:Counseling Given: Not Answered Alcohol Use Standard Drinks/Week Comments Never 0 [...] Sign Reading Time Taken Comments Blood Pressure 108/58 03/25/2025 2:50 PM EDT Pulse 68 03/25/2025 2:50 PM EDT Temperature - - Respiratory Rate - - Oxygen Saturation 98% 03/25/2025 2:50 PM EDT Inhaled Oxygen Concentration - - Weight 58.4 kg (128 lb 11.2 oz) 03/25/2025 2:50 PM EDT Height 144.8 cm (4' 9 ) 03/25/2025 2:50 PM EDT Body Mass Index 27.85 03/25/2025 2:50 PM EDT Plan of Treatment Upcoming Encounters Date Type Department Care Team (Late st Contact Info) Description 06/25/2025 2:00 PM EDT Office Visit [facility] [address] [place] [address] Jamal Jay DO [address] [place] [address] 09/10/2025 3:00 PM EST Office Visit [facility] [address] [place] [phone] Jamal Jay DO [address] [place] [address] Health Maintenance Due Date Last Done Comments Diabetes: Hemoglobin A1C 05/08/2025 025, 08/24/2024, 02/20/2024, Additional history exists Diabetes: Urine Protein Screening 02/06/2026 02/06/2025, 02/19/2023, 02/03/2022, Additional history exists Diabetes: Retinopathy Screening 02/12/2026 02/13/2024, 02/13/2024, 02/13/2024, Additional history exists Medicare Annual Wellness (AWV) 03/05/2026 03/05/2025 Pneumococcal Vaccine: 65+ Years Completed , 11/20/2014 Influenza Vaccine Completed 08/25/2024, 08/23/2023 Procedures Procedure Name Priority Date/Time Associated Diagnosis Comments XR SACRUM COCCYX 2+ VIEWS Routine 04/07/2025 4:50 PM EDT Coccyx pain Pain in sacrum [facility] UA (CLEAN/CATCH) MICROSCOPIC IF INDICATE Routine 02/25/2025 3:30 PM EDT [place] [facility] Routine 02/25/2025 3:30 PM EDT CULTURE, URINE, ROUTINE Routine 02/25/2025 3:30 PM EDT HEMOGLOBIN A1C WITH EAG Routine 02/06/2025 2:10 PM EDT MICROALBUMIN / CREATININE URINE RATIO Routine 02/06/2025 2:10 PM EDT LIPID PANEL Routine 02/06/2025 2:10 PM EDT COMPREHENSIVE METABOLIC PANEL Routine 02/06/2025 2:10 PM EDT CBC WITH AUTO DIFFERENTIAL Routine 02/06/2025 2:10 PM EDT COLOR FUNDUS PHOTOGRAPHY - OU - BOTH EYES Routine 03/22/2022 12:00 PM EDT from Last 3 Months or Most Recently Relevant to Health Maintenance Results * XR sacrum coccyx 2+ views (04/07/2025 4:50 PM EDT) Anatomical Region Laterality Modality Sacrum, Coccyx Radiographic Kelly ging Specimen from uterine cervix / Unknown 04/07/2025 6:07 PM EDT Narrative 04/07/2025 6:07 PM EDT Exam: XR SACRUM COCCYX 2+ VIEWS Reason for exam: Sacral pain, no injury Prior comparative studies: None Findings: Sacral ala are symmetric. No fracture is visualized. There is advanced degenerative change in the lower lumbar spine and lumbosacral region. There may be intervertebral ankylosis at the L3-4 level. Moderate degenerative change of both hips is present. IMPRESSION: 1. No acute abnormality or definite fracture identified. 2. Advanced degenerative change of the lumbar spine and moderate degenerative change of the hips. 3. Possible intervertebral ankylosis in the lumbar spine. Either prior procedure or inflammatory axial arthropathy ( etc.) could produce this appearance. Dictated on: 04/07/2025 3:55 PM This report has been electronically signed and approved by the interpreting radiologist. Procedure Note Seth Latham MD - 04/07/2025 Exam: XR SACRUM COCCYX 2+ VIEWS Reason for exam: Sacral pain, no injury Prior comparative studies: None Findings: Sacral ala are symmetric. No fracture is visualized. There isadvanced degenerative change in the lower lumbar spine and lumbosacralregion. There may be intervertebral ankylosis at the L3-4 level. Moderatedegenerative change of both hips is present. IMPRESSION: 1. No acute abnormality or definite fracture identified. 2. Advanced degenerative change of the lumbar spine and moderatedegenerative change of the hips. 3. Possible intervertebral ankylosis in the lumbar spine. Either priorprocedure or inflammatory axial arthropathy ( etc.) could produce thisappearance. Dictated on: 04/07/2025 3:55 PM This report has been electronically signed and approved by theinterpreting radiologist. us Jamal Jay DO IMG XR PROCEDURES Final Resu lt * [place] [place] [facility] (02/25/2025 3:30 PM EDT) [place] [place] [place] [facility] Urine Culture - [facility] 10,000 colonies/ml mixed [facility] URINE CULTURE - [facility] bacterial skin contaminants [facility] URINE CULTURE - [facility] 2 Days [facility] URINE CULTURE - [facility]INE [facility] - [facility] [place] [facility] Testing performed at [facility] [place]INE [place]URE [place] [facility] [address] [place] [address] TB 02/25/2025 3:30 PM EDT 02/25/2025 4:09 PM EDT Narrative CLINISYNC - 03/01/2025 4:57 PM EDT Jamal Jay DO LAB BLOOD ORDERABLES Final R esult [facility] TB * (ABNORMAL) [facility] UA (CLEAN/CATCH) MICROSCOPIC IF INDICATE (02/25/2025 3:30 PM EDT) COLOR URINE LT. YELLOW YELLOW TBH CLARITY URINE CLEAR CLEAR [facility] SPECIFIC GRAVITY URINE <=1.005(A) 1.005 - 1.025 [facility] PH URINE 6.0 5.0 - 9.0 [facility] PROTEIN URINE NEGATIVE NEG/TRACE mg/dL [facility] GLUCOSE URINE UA NEGATIVE NEGATIVE mg/dL [facility] BILIRUBIN URINE NEGATIVE NEGATIVE TBH KETONES URINE NEGATIVE NEGATIVE mg/dL [facility] BLOOD URINE NEGATIVE NEGATIVE TBH NITRITE URINE NEGATIVE NEGATIVE [facility] UROBILINOGEN URINE 0.2 0.2 - 1.0 EU/dL [facility] LEUKOCYTE ESTERASE URINE NEGATIVE NEGATIVE TB[facility] URINE MICROSCOPIC INDICATED NO [facility] 02/25/2025 3:30 PM EDT 02/25/2025 4:09 PM EDT Narrative CLINISYNC - 02/25/2025 4:49 PM EDT us Jamal Jay DO CLINISYNC Final Result Performing Organization Address City/[facility] Co de Phone Number CLINISYNC [facility] * Urine culture (02/25/2025 3:30 PM EDT) Pathologist [facility] NOTE 10,000 colonies/ml mixed bacterial skin contaminants 2 Days 02/28/2025 10:30 AM EDT [facility] Urine Urine specimen obtained by clean catch procedure / Unknown 02/25/2025 3:30 PM EDT 02/26/2025 2:15 PM EDT us Jamal Jay DO LAB MICROBIOLOGY - GENERAL O RDERABLES Final Result Performing Organization Address [facility] [[email or web address]] de Phone Number [address] [address], [address] [address] * (ABNORMAL) Hemoglobin a1c with eag (02/06/2025 2:10 PM EDT) [facility] HEMOGLOBIN A1C 6.0(H) 4.3 - 5.6 % 02/07/2025 8:19 AM EDT [facility] Comment: Increased risk for diabetes: 5.7 - 6.4 diabetes: >6.4 glycemic control for adults with diabetes: <7.0 ESTIMATED AVERAGE GLUCOSE 126 mg/dL 02/07/2025 8:19 AM EDT [facility] Blood (Blood) 02/06/2025 2:1 0 PM EDT 02/06/2025 2:10 PM EDT us Jose Luis Montes STEMMING MACHINE OPERATOR LAB BLOOD ORDERABLES Final R esult Performing Organization Address City/[facility] Co de Phone Number [address] [address], [facility] [address] [place] [address] * CBC auto differential (02/06/2025 2:10 PM EDT) WBC 6.3 3.8 - 11.6 10*3/uL 02/06/2025 8:51 PM EDT [facility] UNCORRECTED WHITE BLOOD COUNT 6.3 3.8 - 11.6 10*3/uL 02/06/2025 8:51 PM EDT [facility] RBC 4.48 3.60 - 5.00 10*6/uL 02/06/2025 8:51 PM EDT [facility] HEMOGLOBIN 13.4 11.8 - 15.4 g/dL 02/06/2025 8:51 PM EDT [facility] HEMATOCRIT 40.2 34.0 - 46.4 % 02/06/2025 8:51 PM EDT [facility] MCV 89.7 80 - 100 fL 02/06/2025 8:51 PM EDT [facility] MCH 29.9 24.7 - 34.3 pg 02/06/2025 8:51 PM EDT [facility] MCHC 33.4 32.0 - 35.0 g/dL 02/06/2025 8:51 PM EDT [facility] RED CELL DISTRIBUTION WIDTH, RDW 13.2 11.9 - 15.3 % 02/06/2025 8:51 PM EDT [facility] PLATELET COUNT 264 150 - 450 10*3/uL 02/06/2025 8:51 PM EDT [facility] MEAN PLATELET VOLUME, MPV 8.6 6.3 - 10.7 fL 02/06/2025 8:51 PM EDT [facility] NEUTROPHILS, % 60.7 . % 02/06/2025 8:51 PM EDT [facility] LYMPHOCYTES, % 29.1 . % 02/06/2025 8:51 PM EDT [facility] MONOCYTE/MACROPHA GE, % 4.9 . % 02/06/2025 8:51 PM EDT [facility] EOSINOPHILS, % 4.4 . % 02/06/2025 8:51 PM EDT [facility] BASOPHILS, % 0.9 . % 02/06/2025 8:51 PM EDT [facility] NRBC 0.1 0 - 0.5 /100{WBC} 02/06/2025 8:51 PM EDT [facility] NEUTROPHILS 3.8 1.8 - 7.7 10*3/uL 02/06/2025 8:51 PM EDT [facility] LYMPHOCYTES 1.8 1.00 - 4.8 10*3/uL 02/06/2025 8:51 PM EDT [facility] MONOCYTES 0.3 0.0 - 0.8 10*3/uL 02/06/2025 8:51 PM EDT [facility] EOSINOPHILS 0.3 0.0 - 0.45 10*3/uL 02/06/2025 8:51 PM EDT [facility] BASOPHILS 0.1 0.0 - 0.2 10*3/uL 02/06/2025 8:51 PM EDT [facility] Blood (Blood) 02/06/2025 2:1 0 PM EDT 02/06/2025 2:10 PM EDT Jamal Jay DO LAB BLOOD ORDERABLES Final R esult Performing Organization Address [facility] [[email or web address]] de Phone Number [facility] [address] [place] [address], [facility] [address] [place] [address] * Microalbumin / creatinine urine ratio (02/06/2025 2:10 PM EDT) MICROALBUMIN, URINE <0.7 0.0 - 1.8 mg/dL 02/06/2025 9:21 PM EDT [facility] CREATININE, URINE (RANDOM) 52.00 mg/dL 02/06/2025 9:21 PM EDT [facility] Comment:No reference range e stablished MICROALBUMIN/CR EATININE RATIO Test not performed 0.0 - 30.0 02/06/2025 9:21 PM EDT [facility] Other 02/06/2025 2:10 PM EDT 02/06/2025 2:10 PM EDT us Jamal Jay DO LAB URINE ORDERABLES Final R esult Performing Organization Address City/[facility] Co de Phone Number [facility] [address] [place] [address], [facility] [address] [place] [address] * Lipid panel (02/06/2025 2:10 PM EDT) CHOLESTEROL 175 140 - 200 mg/dL 02/06/2025 8:57 PM EDT [facility] Comment: Chol less than 200 mg/dl low risk Chol 201-239 mg/dl borderline risk Chol 240 mg/dl and greater high risk HDL CHOLESTEROL 72 23 - 92 mg/dL 02/06/2025 8:57 PM EDT [facility] Comment: HDL CHOL ATP-III CLASSIFICATION Cardiovascular Risk HDL > or equal to 60 mg/dL LOW HDL < 40 mg/dL HIGH TRIGLYCERIDE W/REFLEX 94 0 - 149 mg/dL 02/06/2025 8:57 PM EDT [facility] Comment: TRIG ATP III CLASSIFICATION TRIG less than 150 mg/dL Normal TRIG 150-199 mg/dL Borderline high TRIG 200-500 mg/dL High TRIG greater than 500 mg/dL Very high Standard traceable to the Center for Disease Conrtrol and Prevention (CDC) test method. LDL CHOLESTEROL,CALCULA KARUNA 84 0 - 100 mg/dL 02/06/2025 8:57 PM EDT [facility] Comment: LDL ATP III CLASSIFICATION LDL less than 100 mg/dL Optimal LDL 100-129 mg/dL Near or above optimal LDL 130-159 mg/dL Borderline high LDL 160-189 mg/dL High LDL greater than 189 mg/dL Very high VLDL CHOLESTEROL 18 mg/dL 02/07/20 25 8:57 PM EDT [facility] CHOL/HDL RATIO 2.4 <5.0 02/06/2025 8:57 PM EDT [facility] Other Topography unknown / Unknown 02/06/2025 2:10 PM EDT 02/06/2025 2:10 PM EDT Jamal Jay DO LAB BLOOD ORDERABLES Final R esult [facility] [address] [place] [address], [facility] [address] [place] [address] * Comprehensive metabolic panel (02/06/2025 2:10 PM EDT) Glucose 96 70 - 100 mg/dL 02/06/2025 8:57 PM EDT [facility] Comment: Random Glucose Reference Range is dependent on time and content of last meal. Glucose of more than 200 mg/dL in a nonstressed, ambulatory subject supports the diagnosis of Diabetes Mellitus. ADA recommended reference range BUN 17 7 - 25 mg/dL 02/06/2025 8:57 PM EDT [facility] CREATININE 0.67 0.60 - 1.20 mg/dL 02/06/2025 8:57 PM EDT [facility] ESTIMATED GFR >60.0 mL/Min 02/06/2025 8:57 PM EDT [facility] Sodium 140 136 - 145 mmol/L 02/06/2025 8:57 PM EDT [facility] Potassium, Bld 4.3 3.5 - 5.1 mmol/L 02/06/2025 8:57 PM EDT [facility] Chloride 103 98 - 107 mmol/L 02/06/2025 8:57 PM EDT [facility] Carbon Dioxide 30.4 21.0 - 31.0 mmol/L 02/06/2025 8:57 PM EDT [facility] Anion Gap 10.9 6.0 - 15.0 meq/L 02/06/2025 8:57 PM EDT [facility] Calcium 9.3 8.6 - 10.3 mg/dL 02/06/2025 8:57 PM EDT [facility] TOTAL PROTEIN 7.1 6.4 - 8.9 g/dL 02/06/2025 8:57 PM EDT [facility] ALBUMIN LEVEL 4.2 3.5 - 5.7 g/dL 02/06/2025 8:57 PM EDT [facility] GLOBULIN 2.9 g/dL 02/06/2025 8:57 PM EDT [facility] ALBUMIN/GLOBULIN RATIO 1.4 02/06/2025 8:57 PM EDT [facility] BILIRUBIN,TOTAL 0.4 0.3 - 1.0 mg/dL 02/06/2025 8:57 PM EDT [facility] ASPARTATE AMINO TRANSFERASE 16 13 - 39 U/L 02/06/2025 8:57 PM EDT [facility] ALANINE AMINOTRANSFERASE 15 7 - 52 U/L 02/06/2025 8:57 PM EDT [facility] ALKALINE PHOSPHATASE 64 34 - 104 U/L 02/06/2025 8:57 PM EDT [facility] Other Topography unknown / Unknown 02/06/2025 2:10 PM EDT 02/06/2025 2:10 PM EDT Jamal Jay DO LAB BLOOD ORDERABLES Final R esult [facility] [address] [place] [address], [facility] [address] [place] [address] * Color Fundus Photography - OU - Both Eyes (03/22/2022 12:00 PM EDT) Anatomical Region Laterality Modality Head Fundus Photograp hy 03/22/2022 12:0 0 PM EDT Narrative 03/21/2022 12:00 PM EDT PERFORMED AT [facility] LOCATION:[id number] no retinopathy Procedure Note CONVERSION, GENERIC - 03/21/2023 PERFORMED AT [facility] LOCATION:[id number] no retinopathy Jamal Jay DO OPHTH PHOTOGRAPHY Final Resu lt from Last 3 Months or Most Recently Relevant to Health Maintenance Insurance [employer] MEDICARE Care Teams Fleet Director Relationship Specialty Start Date End Date Jamal Jay DO [address] [place] [address] PCP - General Internal Medicine 03/13/23 Saul Abdalla DO [address] [place] [address] Referring Physician Ophthalmology 02/22/24 Ubaldo Dubose MD [address] [place], [place] [address] Referring Physician Pulmonary Disease 02/22/24 Vladez Castro MD [address] [place] [address] Referring Physician Pediatric Pulmonology 02/22/24 Flex Ramos MD [address] [place] [address] Referring Physician Gastroenterology 02/22/24 Judit Lora MD 703 [facility] 2, [address] [place] [address] Referring Physician Cardiology 02/22/24
--- OUTSIDE RECORDS SUMMARY | 2025-05-03 22:25 | XMS_ITS | Encounter Summary ---
Author Organization [facility] Address [address] [place] [address] Phone Care Team Providers Care Linux Admin Engineer Name Role Phone Jamal Jay Adrian RAMIREZ Primary Care Provider + [phone] Reason for Visit * Reason Comments Med Refill Encounter Details Date Type Department Care Team ([facility] st Contact Info) Description 01/06/2025 Refill [facility] [address] [facility] [address] [place] [address] Judit Lora MD 917 [facility] [address] [place] [address] Shortness of breath; Cough, unspecified type Social History Tobacco Use Types Packs/Day Years [...] encounter Miscellaneous Notes * Telephone Encounter - Judit Lora MD - 01/07/2025 3:18 PM EST Medication refused due to failing protocol. Requested Prescriptions Pending Prescriptions Disp Refills furosemide (Lasix) 20 mg tablet [Pharmacy Med Name: Furosemide Oral Tablet 20 MG] 45 tablet 0 Sig: TAKE 1/2 TABLET BY MOUTH EVERY DAY Diuretics Protocol Failed - 01/07/2025 3:18 PM Failed - Normal serum potassium in past 12 months No results found for: POTASSIUM , POCT POTASSIUM Failed - Normal serum sodium in past 12 months No results found for: SODIUM , POCT SODIUM Failed - Normal serum creatinine in past 12 months No results found for: CREATININE , POCT CREATININE Failed - Weight on record in past 6 months Failed - Blood pressure on record BP Readings from Last 3 Encounters: 06/12/24 120/70 03/10/24 118/78 10/21/21 132/70 Passed - No active on record Passed - No test in the past 12 months or most recent test was negative Passed - Visit with relevant provider in past 12 months or upcoming 90 days Recent Visits Date Type Provider Dept 06/12/24 Office Visit Judit Lora MD Do [id number] Card1 03/10/24 Office Visit Judit Lora MD Do [id number] Card1 Showing recent visits within past 365 days and meeting all other requirements Future Appointments No visits were found meeting these conditions. Showing future appointments within next 90 days and meeting all other requirements Passed - Medication not refilled in past 45 days (1.5 months) No matching medication orders between 11/23/2024 3:18 PM and 01/07/2025 3:18 PM documented in this encounter Plan of Treatment Not on file documented as of this encounter Visit Diagnoses Diagnosis Shortness of breath Cough, unspecified type documented in this encounter Additional Health Concerns Assessment Noted Time A fall risk assessment has been complete d for the patient 03/10/2024 1:13 PM EDT documented as of this encounter Care Teams Linux Admin Engineer Relationship Specialty Start Date End Date Jamal Jay DO [address] [address] PCP - General 11/05/99 documented as of this encounter
--- OUTSIDE RECORDS SUMMARY | 2025-05-03 22:25 | XMS_ITS | Encounter Summary ---
Author Organization [facility] Address [address] [place] [address] Care Team Providers Care Adult Education Instructor Name Role Phone MistyJamal DO Primary Care Provider Saul Abdalla DO Unavailable Ubaldo Dubose MD Unavailable [phone] Valdez Castro MD Unavailable [phone] Flex Ramos MD Unavailable Judit Lora MD Unavailable Encounter Details Date Type Department Care Team (Late st Contact Info) Description 04/23/2025 Telephone [facility] [address] [facility] [address] [place] [phone] [place], [place] Social History Tobacco Use Types Packs/Day Years [...] encounter Miscellaneous Notes * Telephone Encounter - Ermias Khan MA - 04/23/2025 1:59 PM EDT Alisha called requesting clarification for the patient's Macrobid. I called Nadira and she said thepatient takes 1 capsule every other day, but then she takes 2 capsules twice a day for 5 days when she gets agitated or has increased incontinence. Nadira said if it is written that way it should be fine. Rx sent. documented in this encounter Plan of Treatment Upcoming Encounters Date Type Department Care Team (Late st Contact Info) Description 06/25/2025 2:00 PM EDT Office Visit [facility] [address] [place] [phone] Jamal Jay DO [address] [place] [address] 09/10/2025 3:00 PM EST Office Visit [facility] [address] [place] [phone] Jamal Jay DO [address] [place] [address] documented as of this encounter Visit Diagnoses Diagnosis Recurrent UTI Urinary tract infection, site not specified documented in this encounter Additional Health Concerns Assessment Noted Time PHQ-9 Depression Total Score: 3 02/22/20 24 2:00 PM EDT documented as of this encounter Care Teams Adult Education Instructor Relationship Specialty Start Date End Date Jamal Jay DO [address] [place] [address] PCP - General Internal Medicine 03/13/23 Saul Abdalla DO [address] [place] [address] Referring Physician Ophthalmology 02/22/24 Ubaldo Dubose MD [address] [place] [address] Referring Physician Pulmonary Disease 02/22/24 Valdez Castro MD [address] [place] [address] Referring Physician Pediatric Pulmonology 02/22/24 Flex Ramos MD [address] [place] [address] Referring Physician Gastroenterology 02/22/24 Judit Lora MD 703 [facility] 2, [address] [place] [address] Referring Physician Cardiology 02/22/24 documented as of this encounter
--- OUTSIDE RECORDS SUMMARY | 2025-05-03 22:25 | XMS_ITS | Encounter Summary ---
Author Organization [facility] Address [address] [place] [address] Care Team Providers Care Web Services Manager Name Role Phone Misty Jamal A DO Primary Care Provider [phone] Saul Abdalla DO Unavailable Ubaldo Dubose MD Unavailable [phone] Valdez Castro MD Unavailable [phone] Flex Ramos MD Unavailable Judit Lora MD Unavailable Reason for Visit * Reason Onset Date Comments Med Refill 04/21/2025 Encounter Details Date Type Department Care Team (Late st Contact Info) Description 04/21/2025 Refill [facility] IM [address] [facility] [address] [place] [phone] Aixa Ferrell LPN Urinary tract infection without hematuria, site unspecified Social History Tobacco Use Types Packs/Day Years [...] 06/25/2025 2:00 PM EDT Office Visit [facility] IM [address] [place] [phone] Jamal Jay DO [address] [place] [address] 09/10/2025 3:00 PM EST Office Visit [facility] IM [address] [place] [phone] Jamal Jay DO [address] [place] [address] documented as of this encounter Visit Diagnoses Diagnosis Urinary tract infection without hematuria, site unspecified documented in this encounter Additional Health Concerns Assessment Noted Time PHQ-9 Depression Total Score: 3 02/22/20 24 2:00 PM EDT documented as of this encounter Care Teams Web Services Manager Relationship Specialty Start Date End Date Jamal Jay DO [address] [place] [address] PCP - General Internal Medicine 03/13/23 Saul Abdalla DO [address] [place] [address] Referring Physician Ophthalmology 02/22/24 Ubaldo Duboes MD [address] [place], [place] [address] Referring Physician Pulmonary Disease 02/22/24 Valdez Castro MD [address] [place] [address] Referring Physician Pediatric Pulmonology 02/22/24 Flex Ramos MD [address] [place] [address] Referring Physician Gastroenterology 02/22/24 Judit Lora MD 703 [facility] 2, [facility] [address] [place] [address] Referring Physician Cardiology 02/22/24 documented as of this encounter
--- OUTSIDE RECORDS SUMMARY | 2025-05-03 22:25 | XMS_ITS | Encounter Summary ---
Author Organization [facility] Address [address] [place] [address] Phone Care Team Providers Care Telecommunication Systems Designer Name Role Phone Jamal Jay DO Primary Care Provider [phone] Encounter Details Date Type Department Care Team (Late st Contact Info) Description 04/16/2024 Scanned Document [facility] [address] [place] [phone] Scanning, Generic Provider Social History Tobacco Use [...] documented as of this encounter Care Teams Telecommunication Systems Designer Relationship Specialty Start Date End Date Jamal Jay DO [address] [place] [address] PCP - General 11/05/99 documented as of this encounter
--- OUTSIDE RECORDS SUMMARY | 2025-05-03 22:25 | XMS_ITS | Encounter Summary ---
Author Organization [facility] Address [address] [place] [address] Care Team Providers Care Principal Biostatistician Name Role Phone Jamal Jay DO Primary Care Provider [phone] Saul Abdalla DO Unavailable Ubaldo Dubose MD Unavailable [phone] Valdez Castro MD Unavailable [phone] Flex Ramos MD Unavailable Judit Lora MD Unavailable Reason for Visit * Reason Onset Date Comments Med Refill 04/30/2025 Encounter Details Date Type Department Care Team (Late st Contact Info) Description 04/30/2025 Refill [facility] [address] [facility] [address] [place] [address] Jamal Jay DO [address] [facility] [address] [place] [address] Pulmonary fibrosis (HCC) Social History Tobacco Use Types Packs/Day Years [...] 06/25/2025 2:00 PM EDT Office Visit [facility] IM [address] [place] [phone] Jamal Jay DO [address] [place] [address] 09/10/2025 3:00 PM EST Office Visit [facility] IM [address] [place] [phone] Jamal Jay DO [address] [place] [address] documented as of this encounter Visit Diagnoses Diagnosis Pulmonary fibrosis (HCC) Postinflammatory pulmonary fibrosis documented in this encounter Additional Health Concerns Assessment Noted Time PHQ-9 Depression Total Score: 3 02/22/20 24 2:00 PM EDT documented as of this encounter Care Teams Principal Biostatistician Relationship Specialty Start Date End Date Jamal Jay DO [address] [place] [address] PCP - General Internal Medicine 03/13/23 Saul Abdalla DO [address] [facility] [address] [place] [address] Referring Physician Ophthalmology 02/22/24 Ubaldo Dubose MD [address] [place] [address] Referring Physician Pulmonary Disease 02/22/24 Valdez Castro MD [address] [place] [address] Referring Physician Pediatric Pulmonology 02/22/24 Flex Ramos MD [address] [place] [address] Referring Physician Gastroenterology 02/22/24 Judit Lora MD 703 [facility] 2, [address] [address] Referring Physician Cardiology 02/22/24 documented as of this encounter
--- OUTSIDE RECORDS SUMMARY | 2025-05-03 22:25 | XMS_ITS | Encounter Summary ---
Author Organization [facility] Address [address] [place] [address] Care Team Providers Care Aerospace Project Engineer Name Role Phone MistyJamal ortiz Primary Care Provider + Source Comments In the event this information is protected by the Federal Confidentiality of Alcohol and Drug AbusePatient Records regulations: The Federal rules restrict any use of the information to criminally investigate or prosecute any alcohol or drug abuse patient.[facility] Encounter Details Date Type Department Care Team (Late st Contact Info) Description 03/16/2025 Get Medical Advice Pulmonology [facility] [address] [place] [address] Ubaldo Dubose MD [address] [place], [place] [phone] Smart Mister Bellt Social History Tobacco Use Types Packs/Day Years [...] is lower risk 6 12/28/2023 Data from: https://www.neighborhoodatlas.medicine.[facility].edu/. Last address used for calculation [address] [place] [address] [address] 12/28/2023 Comments No Sex and Gender Information Value Date Recorded Sex Assigned at Not on file Legal Sex Female 9:56 AM EST Gender Identity Not on file Sexual Orientation Not on file documented as of this encounter Plan of Treatment Upcoming Encounters Date Type Department Care Team (Latest Contact Info) Description 06/24/2025 3:00 PM EDT [facility] Neurology [address] [place] [phone] Sohail William MD, PhD [address] [place] [address] 6 months follow up-Focal epilepsy documented as of this encounter Visit Diagnoses Not on filedocumented in this encounter Care Teams Aerospace Project Engineer Relationship Specialty Start Date End Date Jamal Jay DO [address] [place] [address] PCP - General Internal Medicine 12/25/23 documented as of this encounter
--- OUTSIDE RECORDS SUMMARY | 2025-05-03 22:25 | XMS_ITS | Encounter Summary ---
Author Organization [facility] Address [address] [place] [address] Phone Care Team Providers Care Hr Assistant Name Role Phone Jamal Jay Primary Care Provider + [phone] Encounter Details Date Type Department Care Team (Late st Contact Info) Description 04/13/2024 Scanned Document [facility] [address] [place] [phone] Scanning, Generic Provider Social History Tobacco Use [...] on file documented as of this encounter Procedures Procedure Name Priority Date/Time Associated Diagnosis Comments OUTSIDE IMAGING SCAN 04/13/2024 ECHOCARDIOGRAM 04/13/2024 documented in this encounter Results * Echocardiogram (04/13/2024) Narrative 04/13/2024 Ordered by an unspecified provider. us Generic Provider Scanning CV ECHO PROCEDURES Fin al Result * OUTSIDE IMAGING SCAN (04/13/2024) Anatomical Region Laterality Modality Other Narrative 04/13/2024 Ordered by an unspecified provider. us Generic Provider Scanning OUTSIDE SCAN Final Result documented in this encounter Visit Diagnoses Not on filedocumented in this encounter Additional Health Concerns Assessment Noted Time A fall risk assessment has been complete d for the patient 03/10/2024 1:13 PM EDT documented as of this encounter Care Teams Hr Assistant Relationship Specialty Start Date End Date Jamal Jay DO [address] [place] [address] PCP - General 11/05/99 documented as of this encounter
--- OUTSIDE RECORDS SUMMARY | 2025-05-03 22:25 | XMS_ITS | Encounter Summary ---
Author Organization [facility] Address [address] [place] [address] Care Team Providers Care Grounds Person Name Role Phone MistyJamal ortiz Primary Care Provider + Source Comments In the event this information is protected by the Federal Confidentiality of Alcohol and Drug AbusePatient Records regulations: The Federal rules restrict any use of the information to criminally investigate or prosecute any alcohol or drug abuse patient.[facility] Encounter Details Date Type Department Care Team (Late st Contact Info) Description 12/24/2024 Patient Msg Neurology [address] [place] [address] [place] [address] [place], [place] [phone] contact Social History Tobacco Use Types Packs/Day Years [...] is lower risk 6 12/28/2023 Data from: https://www.neighborhoodatlas.medicine.[facility].edu/. Last address used for calculation [address] [place] [address] [address] 12/28/2023 Comments No Sex and Gender Information Value Date Recorded Sex Assigned at Not on file Legal Sex Female 9:56 AM EST Gender Identity Not on file Sexual Orientation Not on file documented as of this encounter Plan of Treatment Upcoming Encounters Date Type Department Care Team (Latest Contact Info) Description 06/24/2025 3:[address] PM [address] [facility] Neurology [address] [place] [phone] Sohail William MD, PhD [address] [place] [address] 6 months follow up-Focal epilepsy documented as of this encounter Visit Diagnoses Not on filedocumented in this encounter Care Teams Grounds Person Relationship Specialty Start Date End Date Jamal Jay DO [address] [place] [address] PCP - General Internal Medicine 12/25/23 documented as of this encounter
--- OUTSIDE RECORDS SUMMARY | 2025-05-03 22:25 | XMS_ITS | Encounter Summary ---
Author Organization [facility] Address [address] [place] [address] Care Team Providers Care Road Crossing Guard Name Role Phone MistyJamal ortiz Primary Care Provider + Source Comments In the event this information is protected by the Federal Confidentiality of Alcohol and Drug AbusePatient Records regulations: The Federal rules restrict any use of the information to criminally investigate or prosecute any alcohol or drug abuse patient.[facility] Encounter Details Date Type Department Care Team (Late st Contact Info) Description 12/15/2024 Patient Msg Pulmonology [facility] [address] [place] [address] Ubaldo Dubose MD [address] [place], [place] [phone] Appointment Request Social History Tobacco Use Types [...] is lower risk 6 12/28/2023 Data from: https://www.neighborhoodatlas.medicine.[facility].edu/. Last address used for calculation [address] [place] [address] [address] 12/28/2023 Comments No Sex and Gender Information Value Date Recorded Sex Assigned at Not on file Legal Sex Female 9:56 AM EST Gender Identity Not on file Sexual Orientation Not on file documented as of this encounter Plan of Treatment Upcoming Encounters Date Type Department Care Team (Latest Contact Info) Description 06/24/2025 3:00 PM EDT [facility] Neurology [address] [place] [phone] Sohail William MD, PhD [address] [place] [address] 6 months follow up-Focal epilepsy documented as of this encounter Visit Diagnoses Not on filedocumented in this encounter Care Teams Road Crossing Guard Relationship Specialty Start Date End Date Jamal Jay DO [address] [place] [address] PCP - General Internal Medicine 12/25/23 documented as of this encounter
--- OUTSIDE RECORDS SUMMARY | 2025-05-03 22:25 | XMS_ITS | Encounter Summary ---
Author Organization [facility] Address [address] [place] [address] Care Team Providers Care Senior Publications Specialist Name Role Phone Misty Jamal Zuñiga DO Primary Care Provider + Source Comments In the event this information is protected by the Federal Confidentiality of Alcohol and Drug AbusePatient Records regulations: The Federal rules restrict any use of the information to criminally investigate or prosecute any alcohol or drug abuse patient.[facility] Encounter Details Date Type Department Care Team (Late st Contact Info) Description 08/14/2024 Patient Msg Neurosurgery [address] [place] [address] Provider, [facility] Letter from Dr. William Social History Tobacco Use Types Packs/Day Years [...] is lower risk 6 12/28/2023 Data from: https://www.neighborhoodatlas.medicine.[facility].edu/. Last address used for calculation [address] [place] [address] 12/28/2023 Comments No Sex and Gender Information Value Date Recorded Sex Assigned at Not on file Legal Sex Female 9:56 AM EST Gender Identity Not on file Sexual Orientation Not on file documented as of this encounter Plan of Treatment Upcoming Encounters Date Type Department Care Team (Latest Contact Info) Description 06/24/2025 3:00 PM EDT [facility] Neurology [address] [place] [address] Sohail William MD, PhD [address] [place] [address] 6 months follow up-Focal epilepsy documented as of this encounter Visit Diagnoses Not on filedocumented in this encounter Care Teams Senior Publications Specialist Relationship Specialty Start Date End Date Jamal Jay DO [address] [place] [address] PCP - General Internal Medicine 12/25/23 documented as of this encounter
--- OUTSIDE RECORDS SUMMARY | 2025-05-03 22:25 | XMS_ITS | Encounter Summary ---
Author Organization [facility] Address [address] [place] [address] Phone Care Team Providers Care Statistical Machine Servicer Name Role Phone Jamal Jay DO Primary Care Provider [phone] Encounter Details Date Type Department Care Team (Late st Contact Info) Description 10/17/2021 Orders Only [facility] LE[facility] [address] [place] [address] Conversion, Onbase Social History Tobacco Use Types Packs/Day Years Used Date Smoking Tobacco: Never Assessed Comments Unknown Sex and Gender Information Value Date Recorded Sex Assigned at Not on file Legal Sex Female 9:21 PM EST Gender Identity Not on file Sexual Orientation Not on file documented as of this encounter Plan of Treatment Scheduled Orders Name Type Priority Associated Diagnoses Orde r Schedule OUTSIDE LAB SCAN Lab Ordered: 10/17/2021 OUTSIDE LAB SCAN Lab Ordered: 10/17/2021 documented as of this encounter Visit Diagnoses Not on filedocumented in this encounter Care Teams Statistical Machine Servicer Relationship Specialty Start Date End Date Jamal Jay DO [address] [place] [address] PCP - General 11/05/99 documented as of this encounter
--- OUTSIDE RECORDS SUMMARY | 2025-05-03 22:25 | XMS_ITS | Clinical Summary ---
Author Organization [facility] Address [address] [place] [address] Phone Care Team Providers Care Frame Wirer Name Role Phone Misty, Jamal Campbell DO Primary Care Provider Allergies Active Allergy Reactions Criticality Noted Date Comments Latex Rash Low 06/29/2009 Midazolam Hallucinations 01/09/2023 Other Reaction(s): Confusion, Mental Status Change Opioids - Morphine Analogues Hallucinations,Unknown 12/26/2022 Other Reaction(s): unknown Penicillins Rash Low 06/29/2009 Other Reaction(s): unknown Propoxyphene N-Acetaminophen Rash Low 06/29/2020 Sulfa (Sulfonamide Antibiotics) Rash Low 06/29/2009 Other Reaction(s): unknown Medications simvastatin (Zocor) 20 mg tablet Take 1 tablet (20 mg) by mouth once daily at bedtime. 02/17/20 21 Active albuterol 90 mcg/actuation inhaler 2 puffs Inhalation every 4 hrs as needed for 30 days Active ibandronate (Boniva) 150 mg tablet Take 1 tablet (150 mg) by mouth every 30 (thirty) days. 02/17/20 21 Active TRUEplus Lancets 33 gauge misc USE TO TEST ONCE DAILY EVERY MORNING. 02/26/20 24 Active sodium chloride 3 % nebulizer solution INHALE CONTENTS OF 1 VIAL (2MLS) VIA NEBULIZATION 2 TIMES A DAY Active ofloxacin (Ocuflox) 0.3 % ophthalmic solution Administer 1 drop into the right eye five times a day for 1 day Starting 1 day before surgery, continue after surgery as directed 02/13/20 24 Active clopidogrel (Plavix) 75 mg tablet Take 1 tablet (75 mg) by mouth once daily. 05/10/20 Active omeprazole (PriLOSEC) [address] capsule Take 1 capsule (40 mg) by mouth. 08/09/20 Active levothyroxine (Synthroid, Levoxyl) 50 mcg tablet Take 1 tablet (50 mcg) by mouth once daily in the morning. Take before meals. Active liothyronine (Cytomel) 5 mcg tablet Take 1 tablet (5 mcg) by mouth twice a day. Active oxybutynin XL (Ditropan-XL) 5 mg 24 hr tablet Take 1 tablet (5 mg) by mouth once daily at bedtime. 01/03/20 24 Active estradiol (Estrace) 0.01 % (0.1 mg/gram) vaginal cream Insert 0.25 Applicatorfuls (1 g) into the vagina 2 times a week. 06/11/20 Active cholecalciferol (Vitamin D-3) 50 mcg (2,000 unit) capsule Take 1 capsule (50 mcg) by mouth once daily. Active furosemide (Lasix) 20 mg tabletIndicatio ns:Shortness of breath,Cough, unspecified type Take 0.5 tablets (10 mg) by mouth once daily. 45 tablet 3 03/10/20 24 Active Ozempic 1 mg/dose (4 mg/3 mL) pen injector Inject 1 mg under the skin 1 (one) time per week. 04/22/20 24 Active azithromycin (Zithromax) 250 mg tablet Take 1 tablet (250 mg) by mouth once a day on Sunday, Sunday, and Sunday. 05/05/20 Active Active Problems Problem Noted Date Diagnosed Date Encounter to discuss test results 06/12/2024 Pulmonary hypertension (Multi) 06/12/2024 Sinus bradycardia 03/10/2024 BMI 32.0-32.9,adult 03/10/2024 Former smoker 03/10/2024 Hyperlipidemia 03/10/2024 History of traumatic brain injury 03/10/2024 Cough 03/10/2024 Diabetes mellitus type II, non insulin dependent (Multi) 03/10/2024 Dysphasia 03/10/2024 Abnormal lung sounds 03/10/2024 Bronchiectasis 03/10/2024 Shortness of breath 02/25/2024 Resolved Problems Problem Noted Date Diagnosed Date Resolved Date Pulmonary hyperinflation 06/12/202406/2024 Encounters Date Type Department Care Team Description 03/01/2025 Refill [place] [id number] [facility] [address] [place] [phone] Judit Lora MD Shortness of breath; Cough, unspecified type 02/25/2025 Refill [facility] [address] [facility] [address] [place] [phone] Judit Lora MD Shortness of breath; Cough, unspecified type from Last 3 Months Immunizations Immunization Administration Dates Next Due AS03 Adjuvant 07/15/2020,09/10/2019,07/25/2018 Flu vaccine, trivalent, pres ervative free, HIGH-DOSE, age 65y+ (Fluzone) 08/17/2022,08/16/2021,08/17/2016 Influenza, Seasonal, Quadriv alent, Adjuvanted 08/23/2023 Influenza, trivalent, adjuvanted 07/15/2020,04/2019,07/25/2018 Moderna COVID-19 vaccine, bi valent, blue cap/ventura label *Check age/dose* 11/10/2022 Pneumococcal conjugate vacci ne, 13-valent (PREVNAR 13) 11/20/2014 Pneumococcal polysaccharide vaccine, 23-valent, age 2 years and older (PNEUMOVAX 23) 08/04/2020 Family History Medical History Relation Name Comments Diabetes type I Brother Heart attack Brother Hypertension Father Alzheimer's disease Mother Diabetes type I Mother Stroke Mother Stroke Sister Relation Name Status Comments Brother Father Mother Sister Social History Tobacco Use Types Packs/Day Years Used Date Smoking Tobacco: Former Cigarettes Smokeless Tobacco: Never Tobacco Cessation:Counseling Given: Not [...] Sign Reading Time Taken Comments Blood Pressure 120/70 06/12/2024 2:51 PM EDT Pulse 84 06/12/2024 2:51 PM EDT Temperature - - Respiratory Rate - - Oxygen Saturation - - Inhaled Oxygen Concentration - - Weight 64.2 kg (141 lb 9.6 oz) 06/12/2024 2:51 P M EDT Height 144.8 cm (4' 9 ) 06/12/2024 2:51 PM EDT Body Mass Index 30.64 06/12/2024 2:51 PM EDT Plan of Treatment Health Maintenance Due Date Last Done Comments Medicare Annual Wellness Visit (AWV) 1945 Diabetes: Retinopathy Screening 1956 Hepatitis C Screening 1964 DTaP/Tdap/Td Vaccines (1 - Tdap) 1968 RSV High Risk: (Elderly (60+) or Population) (1 - 1-dose 75+ series) 2021 Diabetes: Hemoglobin A1C 10/27/2022 07/28/2022 Diabetes: Urine Protein Screening 02/20/2024 02/19/2023 COVID-19 Vaccine ( season) 2024 11/10/2022, 07/06/2021, 02/03/2021, Additional history exists Lipid Panel 02/19/2025 02/20/2024 TSH Level 02/21/2025 02/22/2024, 02/20/2024 Influenza Vaccine (Season Ended) 2025 08/23/2023, 08/17/2022, 08/16/2021, Additional history exists Bone Density Scan 10/26/2025 10/26/2023, 10/20/2021 Pneumococcal Vaccine Completed 08/04/2020, 11/20/19 15 Zoster Vaccines Completed 05/30/2022, 02/28/2022 HIB Vaccines Aged Out No longer eligi ble based on patient's age to complete this topic HPV Vaccines (No Doses Required) Completed Hepatitis A Vaccines Aged Out No long er eligible based on patient's age to complete this topic Hepatitis B Vaccines Aged Out No long er eligible based on patient's age to complete this topic IPV Vaccines Aged Out No longer eligi ble based on patient's age to complete this topic Meningococcal Vaccine Aged Out No geovanny agata eligible based on patient's age to complete this topic Rotavirus Vaccines Aged Out No longer eligible based on patient's age to complete this topic Insurance DUAL COMPLETE DUAL COMPLETE Care Teams Frame Wirer Relationship Specialty Start Date End Date Jamal Jay DO [address] [facility] [address] [place] [address] PCP - General 11/05/99
--- OUTSIDE RECORDS SUMMARY | 2025-05-03 22:25 | XMS_ITS | Encounter Summary ---
Author Organization [facility] Address [address] [place] [id number] Care Team Providers Care Electrotype Finisher Name Role Phone MistyJamal ortiz Primary Care Provider + Source Comments In the event this information is protected by the Federal Confidentiality of Alcohol and Drug AbusePatient Records regulations: The Federal rules restrict any use of the information to criminally investigate or prosecute any alcohol or drug abuse patient.[facility] Reason for Visit * Reason Onset Date Comments Refill Request 03/17/2025 Encounter Details Date Type Department Care Team (Late st Contact Info) Description 03/17/2025 Refill Pulmonology [facility] [address] [place] [address] Ubaldo Dubose MD [address] [place] [address] Refill Request Social History Tobacco Use Types Packs/Day Years Used Date Smoking Tobacco: Former Cigarettes 1 10 0 11/05/1969 - 11/05/1979 Smokeless Tobacco: Never Alcohol Use Standard Drinks/Week Comments No 0 (1 standard drink = 0.6 oz pur e alcohol) Area Deprivation Index Answer Date Ruel rded National Score (1-100), lower number is lower ri 73 12/28/2023 State Score (1-10), lower number is lower risk 6 12/28/2023 Data from: https://www.neighborhoodatlas.medicine.[facility].edu/. Last address used for calculation [address] [place] [address] [address] 12/28/2023 Comments No Sex and Gender Information Value Date Recorded Sex Assigned at Not on file Legal Sex Female 9:56 AM EST Gender Identity Not on file Sexual Orientation Not on file documented as of this encounter Plan of Treatment Upcoming Encounters Date Type Department Care Team (Latest Contact Info) Description 06/24/2025 3:00 PM EDT [facility] [address] [place] [phone] Sohail William MD, PhD [address] [place] [address] 6 months follow up-Focal epilepsy documented as of this encounter Visit Diagnoses Diagnosis Bronchiectasis without complication (HCC) Bronchiectasis without acute exacerbation documented in this encounter Care Teams Electrotype Finisher Relationship Specialty Start Date End Date Jamal Jay DO [address] [place] [address] PCP - General Internal Medicine 12/25/23 documented as of this encounter
--- OUTSIDE RECORDS SUMMARY | 2025-05-03 22:26 | XMS_ITS | CCD ---
Author Organization [facility] ion Partnership [facility] Care Team Providers Care Facility Administrator Name Role Phone Jamal Alvarez Unavailable Unavailable Unavailable Kostas Vance DO Primary Care Provider Kostas Vance DO Primary Care Provider DO Jamal [...] Unavailable DO Jamal Alvarez Primary Care Provider [phone] MD Valdez Castro Attending Provider DO Jamal Alvarez Attending Provider Jamal Alvarez DO Primary Care Provider DO Jamal Alvarez Primary Care Provider DO Jamal Alvarez Attending Provider CORNELIUS Pearce Attending Provider DO Jamal Alvarez Primary Care Provider DO Jamal Alvarez Attending Provider TEAGAN Lockhart Attending Provider Jamal Alvarez DO Primary Care Provider Jamal Alvarez DO Primary Care Provider MD Simone Navarro Emergency Provider DO Albert Palacio Admit Provider DO Albert Palacio Attending Provider [phone] MD Renan Murguia Attending Provider TEAGAN Freeman Other Provider Unavailable DO Vic Hess Other Provider MD Gilbert Torre Other Provider MD Malik Luu Other Provider MD Sukhwinder Luu Other Provider [phone] MD Oleg Milton Other Provider ROSELYN Navarro Other Provider MD Judit Lora Other Provider MD Mireille Jorge Other Provider MD Anthony Riddle Other Provider Chris [facility] Emilee Tineo Other Provider [phone] DO Andry Nugent Other Provider MD Flex Ramos Attending Provider DO Jamal Alvarez Primary Care Provider [phone] DO Jamal Alvarez Attending Provider MD Vladez Castro Attending Provider Jamal Alvarez DO Primary Care Provider [phone] Saul Abdalla DO Unavailable Ubaldo Dubose MD Unavailable Valdez Castro MD Unavailable Flex Ramos MD Unavailable Judit Lroa MD Unavailable Jamal Alvarez DO Primary Care Provider Valdez Castro MD Attending Provider [phone] JUDIT LORA Attending Unavailable JAMAL ALVAREZ Primary Care Unavailable JUDIT LORA Attending Unavailable JUDIT LORA Referring Unavailable JAMAL ALVAREZ Primary Care Unavailable Judit Lora MD Unavailable Jamal Alvarez DO Primary Care Provider Valdez Castro MD Attending Provider Jamal Alvarez DO Attending Provider Valdez Castro MD Other Provider [phone] Rachel IVY, Imad Unavailable Jamal Alvarez DO Primary Care Provider Valdez Castro Attending Unavailable Jamal Alvarez Primary Care Unavailable Moosa, Valdez F Admitting Unavailable Moarmando Valdez F Attending Unavailable Jamal Alvarez Primary Care Unavailable Moarmando, Valdez F Admitting Unavailable Jamal Alvarez Primary Care Unavailable Jamal Alvarez Attending Unavailable Jamal Alvarez Admitting Unavailable Moosa, Valdez F Consulting Unavailable Albert Palacio Admitting Unavailable Shahnaz Freeman Consulting Unavailable Renan Murguia Attending Unavailable Jamal Alvarez Primary Care Unavailable Vic Hess Consulting Unavailable Gilbert Torre Consulting Unavailable Malik Luu Consulting Unavail able Sukhwinder Luu Consulting Unavailable Oleg Milton Consulting Unavailab Adilene Vidal Consulting Unavailable Judit Lora Consulting Unavailable Mireille Jorge Consulting Unavailab Anthony Chahal Consulting Unavailable Emilee Perez Consulting Unavailable Andry Nugent Consulting Unavailable Matias Valdez Admitting Unavailable Renan Murguia Attending Unavailable Jamal Alvarez Primary Care Unavailable Jamal Alvarez Attending Unavailable Jamal Alvarez Admitting Unavailable Alessio IVY, Loraine Mckinley Emergency Provider Matias Valdez DO Admit Provider [phone] Matias Valdez DO Attending Provider Renan Murguia MD Attending Provider UBALDO DUBOSE Referring Unavailable JAMAL ALVAREZ Primary [facility] Unavailabl e LISA WILLIAM Attending Unavailable SELF Referring Unavailable JAMAL ALVAREZ Primary Care Unavailabl e LISA WILLIAM Attending Unavailable JAMAL ALVAREZ Primary Care Unavailabl e UBALDO DUBOSE Attending Unavailable JAMAL ALVAREZ Primary Care Unavailabl UBALDO Thorpe Referring Unavailable JAMAL ALVAREZ Primary [facility] UnavailJAMAL Chamorro Attending Unavailable JAMAL ALVAREZ Attending Unavailable JAMAL ALVAREZ Referring Unavailable JAMAL ALVAREZ Attending Unavailable GILBERT LOVETT Attending Unavailable JAMAL ALVAREZ Referring Unavailable JOSE LUIS LOCKHART Attending Unavailable Allergies Allergy Classification Reported Allergen(s) Allergy Type Date of Onset Reaction(s) Facility Benzodiazepines (2 sources) Midazolam Drug Allergy 01-10-20 23 Mental Status Change [facility] Berries (1 source) [place] Food Allergy 06-29-20 09 [facility] Latex (1 source) Latex Substance Allergy 06-29-20 09 [facility] Opioid Agonists (2 sources) Codeine Drug Allergy 08-21-20 23 Other: See Comments [facility] Penicillins (antibiotic) (1 source) Penicillins Drug Allergy 06-29-20 09 [facility] strawberry allergenic extract (1 source) strawberry allergenic extract Drug Allergy 04-13-20 24 Nausea [facility] Sulfonamides (antibiotic) (2 sources) Sulfonamides (Antibiotic) Drug Allergy 06-29-20 09 [facility] (20 sources) Codeine; Translations: [codeine] Drug Allergy 12-26-19 23 Unknown Reaction [facility] (6 sources) Penicillins; Translations: [Penicillins] Allergy to drug (finding) 06-29-20 09 [facility] 3 Repository (20 sources) Propoxyphene; Translations: [propoxyphene] Drug Allergy 08-21-20 23 Other: See Comments [facility] (3 sources) Sulfamethoxazol e; Translations: [sulfa] Drug Allergy [facility] DO Work Phone: (20 sources) Latex; Translations: [LATEX] Propensity to adverse reactions 06-29-20 [facility] (1 source) Penicillins Propensity to adverse reactions 06-29-20 [facility] (20 sources) [place]; Translations: [STRAWBERRIES] Propensity to adverse reactions 06-29-20 [facility] (20 sources) Sulfonamides (Antibiotic); Translations: [SULFA (SULFONAMIDE ANTIBIOTICS)] Propensity to adverse reactions 06-29-20 [facility] (20 sources) Propoxyphene N-Acetaminophen ; Translations: [PROPOXYPHENE N-ACETAMINOPHEN ] Drug Allergy 06-29-20 [facility] (20 sources) Penicillins Propensity to adverse reactions 06-29-20 [facility] (17 sources) strawberry allergenic extract Drug Allergy 12-26-19 Nausea [facility] (1 source) Penicillins Drug allergy (disorder) [facility] (1 source) Sulfonamides (Antibiotic) Drug allergy (disorder) [facility] (20 sources) Midazolam; Translations: [MIDAZOLAM] Drug Allergy 01-10-20 Mental Status Change, Hallucinations [facility] (17 sources) opiates Propensity to adverse reactions 01-10-20 Confusion [facility] (20 sources) Morphinan opioid; Translations: [OPIOIDS - MORPHINE ANALOGUES] Drug Allergy 12-26-19 Mental Status Change, Unknown, Hallucinations [facility] (16 sources) Latex Propensity to adverse reactions 06-29-20 [facility] (16 sources) Penicillins Drug Allergy 06-29-20 [facility] (16 sources) Other Allergy to substance 08-21-20 [facility] (3 sources) Penicillins Propensity to adverse reactions 06-29-20 [facility] Medications Current Medications Medication Drug Class(es) Dates Sig (Normalized) Sig (Original) [id number] 200 actuat albuterol 0.09 mg/actuat metered dose inhaler (20 sources) beta2-Adrenergic Agonist Start: 03-17-2025 take 2 puff(s) by mouth every four hours as needed albuterol HFA 90 mcg/act inhaler Indications: Pulmonary fibrosis (CMS/HCC) INHALE 2 PUFFS BY MOUTH EVERY 4 HOURS NEEDED 8.5 g 03/17/2025 Active Start: 03-10-2024 take 2 puff(s) by in halation every four hours as needed albuterol HFA [...] / ipratropium bromide 0.167 mg/ml inhalation solution (20 sources) Anticholinergic, beta2-Adrenergic Agonist Start: take 1 dose by inhalation every four hours as needed for wheezing ipratropium-albute rol (DUONEB) 0.5 mg-3 mg(2.5 mg base)/3 mL nebu Inhale contents of 1 vial via nebulizer as instructed every 4 hours as needed for wheezing/shortness of breath. 360 mL 03/18/2025 Active Start: 05-05-2024 End: 03-18-2025 take 3 mL by inhalation every four hours as needed ipratropium-albuterol (DUONEB) 0.5 mg-3 mg(2.5 mg base)/3 mL nebu Inhale 3 mL as instructed every 4 hours as needed for wheezing/shortness of breath. 360 mL 2 05/05/2024 03/18/2025 Discontinued Start: 06-29-2020 End: 12-28-2023 take 3 mL by inhalation every six hours as needed ipratropium-albuterol (DUONEB) 0.5 mg-3 mg(2.5 mg base)/3 mL nebu Inhale 3 mL as instructed every 6 hours as needed. 90 Vial 5 06/29/2020 12/28/2023 Discontinued Start: 06-29-2020 Ipratropium-Al buterol 0.5-2.5 (3) MG/3ML Inhalation Solution As directed. Quantity: 0 Refills: 0 Ordered: 27-Oct-2020 DO Start : 29-Jun-2020 Active ipratropium-albu terol (Duo-Neb) 0.5-2.5 mg/3 mL nebulizer solution Take 3 mL by nebulization every 6 (six) hours if needed for wheezing or shortness of breath Active Comment on above: Inhale 3 mL as instr ucted every 6 hours as needed. azithromycin 250 mg oral tablet (20 sources) Macrolide Antimicrobial Start: 03-14-2025 Azithromycin 250 mg tablet Active 250 MG PO March 14, 2025 12:00am Start: 09-01-2024 End: 12-12-2024 take 1 tablet by mouth once azithromycin (ZITHROMAX) 2 50 mg tablet Indications: Bronchiectasis without complication (HCC) Take 1 tablet by mouth every Sunday, Sunday, and Sunday. 30 tablet 1 12/12/2024 Active Start: 05-05-2024 End: 08-30-2024 take 1 tablet by mouth once azithromycin (ZITHROMAX) 2 50 mg tablet Indications: Bronchiectasis without complication (HCC) Take 1 tablet by mouth every Sunday, Sunday, and Sunday. 30 tablet 1 05/05/2024 08/30/2024 Discontinued Calcium (20 sources) Phosphate Binder, Calcium Start: 06-29-2009 CALCIUM 500 MG TAB Take one(1) tablet twice daily. 0 06/29/2009 Active Comment on above: Take one(1) tablet t wice daily. cannabidiol 100 mg/ml oral solution (10 sources) Start: 12-24-2024 End: 03-20-2025 take 2 mL by mouth twice daily Epidiolex 100 MG/ML solution Take 2 mL by mouth two times a day. 01/16/2025 Active cefpodoxime 200 mg oral tablet (1 source) Cephalosporin Antibacterial Start: 03-15-2025 take 1 tablet by mouth twice daily at mealtime Cefpodoxime 200 mg tablet Active 200 MG PO Twice daily 08 09March 15, 2025 12:00am must administer with a meal/food; start 03/16/25 evening cholecalciferol 0.05 mg oral capsule (20 sources) Vitamin D Start: 10-17-2021 Cholecalciferol, Vitamin D3, 50 mcg (2,000 unit) cap Daily 10/17/2021 Active Comment on above: Daily clopidogrel 75 mg oral tablet (20 sources) [id number] Platelet Inhibitor Start: 06-29-2009 take 1 tablet by mouth once daily clopidogrel (Plavix) 75 MG tablet Indications: 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 estradiol 0.1 mg/ml vaginal cream (20 sources) Estrogen Start: 09-01-2024 estradiol (Estrace) 0.1 MG/GM vaginal cream Indications: Atrophic vaginitis Insert 1 g into the vagina 2 (two) times a week 42.5 g 3 09/01/2024 Active Start: 12-26-2022 End: 04-13-2024 Estradiol 0.01 % (0.1 mg/gra m) cream Discontinued 1 APPLICATOR VAGINAL Daily December 26, [...] Comment on above: Use 1 g vaginally. fluconazole 150 mg oral tablet (4 sources) Azole Antifungal Start: 05-05-2024 End: 05-05-2024 take 1 tablet by mouth once fluconazole [...] 17-Jul-2021 Active furosemide 20 mg oral tablet (20 sources) Loop Diuretic Start: 03-10-2024 End: 03-10-2025 take 0.5 tablet by mouth once daily furosemide (Lasix) 20 MG tablet Indications: Edema, unspecified type Take 0.5 tablets (10 mg) by mouth Daily 90 tablet 1 03/05/2025 Active Start: 03-10-2024 End: 03-05-2025 take 10 mg by mouth once daily Furosemide (Lasix) 20 m g tablet Active 10 MG PO Daily April 13, 2024 12:00am ibandronic acid 150 mg oral tablet (20 [...] on above: Take 1 tablet by marilyn . lamoTRIgine 25 mg oral tablet (20 sources) Mood Stabilizer, Anti-epileptic Agent Start: 08-13-2024 End: 03-05-2025 lamoTRIgine (LAMICTAL) 25 mg tablet take 1 qhs for 2 weeks, then 1 pill bid for two weeks, then 1 pill in AM, 2pill in PM for week, then 2 pills bid for 1 week, then 2 pill in AM, 3 pill in PM for week, then 3 pills bid and stay at that dose. 180 tablet 2 08/13/2024 Active liothyronine sodium 0.005 mg oral tablet (20 sources) l-Triiodothyroni ne Start: 10-25-2023 take 1 tablet by mouth every twelve hours liothyronine (CYTOMEL) 5 mcg tablet Take 1 tablet by mouth every 12 hours. 10/25/2023 Active Start: 12-26-2022 take 1 tablet by marilyn once daily in the morning Liothyronine 5 mcg tablet Active 5 MCG PO Every morning December 26, 2022 1:00am Start: 12-26-2022 take 1 tablet by marilyn th twice daily Liothyronine 5 mcg tablet Active 5 MCG PO Twice daily December 26, 2022 1:00am Comment on above: Take 1 tablet by marilyn th every 12 hours. loperamide hydrochloride 2 mg oral capsule (20 sources) Opioid Agonist Start: 10-17-2021 End: 03-03-2024 take 1 capsule by mouth once daily in the morning as needed Loperamide 2 mg capsule Active 2 MG PO Every morning as needed for loose stool February 21, 2024 10:47am LOPERAMIDE HCL P O Daily as needed. Active Comment on above: Every morning MULTIVITAMIN TAB (20 sources) Start: MULTIVITAMIN TAB Take one(1) tablet daily. 0 [...] / nitrofurantoin, monohydrate 75 mg oral capsule (20 sources) Nitrofuran Antibacterial Start: End: take 1 capsule by mouth every other day nitrofurantoin, macrocrystal-monohydrat e, (Macrobid) 100 MG capsule Indications: Recurrent UTI Take 1 capsule (100 mg) by mouth every other day 90 capsule 1 03/05/2025 Active omeprazole 40 mg delayed release oral capsule (20 sources) Proton Pump Inhibitor Start: 025 End: 026 take 1 capsule by mouth before mealtime omeprazole (PriLOSEC) [address] capsule Indications: Gastroesophageal reflux disease without esophagitis Take 1 capsule (40 mg) by mouth in the morning. Take before meals. Do not crush or chew. 90 capsule 3 04/02/2025 04/02/2026 Active Start: 08-09-2021 End: 02-24-2025 take 1 capsule by mouth before mealtime omeprazole (PriLOSEC) [address] capsule Indications: Gastroesophageal reflux disease without esophagitis Take 1 capsule (40 mg) by mouth in the morning. Take before meals. Do not crush or chew.. 30 capsule 11 02/25/2024 Active Comment on above: Take by mouth at bed time as needed. 24 hr oxybutynin chloride 5 mg extended release oral tablet (20 sources) Cholinergic Muscarinic Antagonist Start: take 1 tablet by mouth every twenty-four hours at bedtime oxybutynin XL (Ditropan-XL) 5 MG 24 hr tablet Indications: OAB (overactive bladder) Take 1 tablet (5 mg) by mouth at bedtime 90 tablet 3 04/02/2025 Active Start: 02-22-2024 End: 08-25-2024 take 1 tablet by mouth every twenty-four hours at bedtime oxybutynin XL (Ditropan-XL) 5 MG 24 hr tablet Indications: OAB (overactive bladder) TAKE 1 TABLET BY MOUTH AT BEDTIME 30 tablet 05/15/2024 Active Start: 01-03-2024 take 1 tablet by marilyn th once daily at bedtime Oxybutynin Chloride 5 mg tablet extended release 24hr Active 5 MG PO Daily at bedtime [...] Take one(1) tablet t wo(2) times daily. semaglutide (Ozempic) 4 MG/3ML solution pen-injector (4 sources) Start: 04-22-20 inject 1 mg by subcutaneous injection every week semaglutide (Ozempic) 4 MG/3ML solution pen-injector Indications: Type 2 diabetes mellitus with other specified complication, without long-term current use of insulin (CMS/HCC) Inject 1 mg under the skin 1 (one) time per week 3 mL 5 04/22/2024 Active semaglutide (Ozempic, 1 MG/DOSE,) 4 MG/3ML solution pen-injector (12 sources) Start: 09-26-20 inject 1 mg by subcutaneous injection every week semaglutide (Ozempic, 1 MG/DOSE,) 4 MG/3ML solution pen-injector Indications: Type 2 diabetes mellitus with other specified complication, without long-term current use of insulin INJECT 1 MG SUBCUTANEOUSLY ONCE A WEEK 9 mL 3 09/26/2024 Active simvastatin 20 mg oral tablet (20 sources) HMG-CoA Reductase Inhibitor Start: 05-15-20 End: 08-25-20 take 1 tablet by mouth at bedtime simvastatin (Zocor) 20 MG tablet Indications: Mixed hyperlipidemia (CMS/HCC) Take 1 tablet (20 mg) by mouth at bedtime 90 tablet 3 08/06/2024 Active Start: 02-16-2021 End: 02-21-2024 take 1 tablet by mouth once daily at bedtime Simvastatin 20 mg tablet Discontinued 20 MG PO Daily at bedtime October 17, 2021 1:00am February 21, 2024 10:48am Start: 05-23-2020 End: 12-28-2023 take 1 tablet by mouth once daily at bedtime simvastatin (ZOCOR) 40 mg tablet Take 40 mg by mouth daily at bedtime. 05/23/2020 12/28/2023 Discontinued Comment on above: Take 40 mg by mouth daily at bedtime. sodium chloride 30 mg/ml inhalation solution (20 sources) Start: 04-21-2024 sodium chloride 3 % [...] Drug Class(es) Dates Sig (Normalized) Sig (Original) 24 hr buPROPion hydrochloride 150 mg extended release oral tablet (10 sources) Aminoketone Start: 04-13-2024 End: 03-14-2025 take 1 tablet by mouth once daily Bupropion Hcl (Wellbutrin Xl) 150 mg tablet extended release 24 hr Discontinued 150 MG PO Daily April 13, 2024 12:00am March 14, 2025 1:41am calcium carbonate 1250 mg / cholecalciferol 125 unt oral tablet (18 sources) Vitamin D Start: 10-17-2021 End: 01-09-2023 take 1 tablet by mouth once daily as needed Calcium Carbonate-Vitamin D3 500 mg-3.125 mcg (125 unit) Tablet Discontinued 1 TAB PO Daily as needed for low milk intake October 17, 2021 1:00am January 09, 2023 11:55am Carboxymethylcell-Glyc lindsay(Pf) (Refresh Relieva Pf) 0.5-1 % dropperette (10 sources) Start: 04-13-2024 End: 03-14-2025 Carboxymethylcell- Glycerin(Pf) (Refresh Relieva Pf) 0.5-1 % dropperette Discontinued 1 DROPS EYE-BOTH Three times daily April 13, 2024 12:00am March 14, 2025 1:42am Start: 04-13-2024 Carboxymethylc ell-Glycerin(Pf) (Refresh Relieva Pf) 0.5-1 % dropperette Active 1 DROPS EYE-BOTH Three times daily April 12, 2024 11:00pm Start: 04-13-2024 Carboxymethylc ell-Glycerin(Pf) (Refresh Relieva Pf) 0.5-1 % dropperette Active 1 DROPS EYE-BOTH Three times daily April 13, 2024 12:00am cephalexin 500 mg oral capsule (18 sources) Cephalosporin Antibacterial Start: 10-25-2021 End: 12-26-2022 take 1 capsule by mouth twice daily Cephalexin 500 mg capsule Discontinued 500 MG PO Twice daily 14 October 25, 2021 1:00am December 26, 2022 3:00pm desmopressin acetate 0.2 mg oral tablet (12 sources) Vasopressin Analog, Factor VIII Activator Start: 02-21-2024 End: 04-13-2024 take 1 tablet by mouth once daily at bedtime Desmopressin 0.2 mg tablet Discontinued 0.2 MG PO Daily at bedtime [...] 100 mg oral capsule (7 sources) Start: 06-29-20 End: 12-28-19 24 docusate sodium(COLACE 100 MG CAP) Take one(1) tablet daily 0 06/29/2009 12/28/2023 Discontinued Comment on above: Take one(1) tablet d aily escitalopram 20 mg oral tablet (7 sources) Serotonin Reuptake Inhibitor Start: 06-29-20 End: 12-28-19 escitalopram oxalate(LEXAPRO 20 MG TAB) Take one(1) tablet daily. 0 06/29/2009 12/28/2023 Discontinued Comment on above: Take one(1) tablet d aily. fexofenadine hydrochloride 180 mg oral tablet (18 sources) Histamine-1 Receptor Antagonist Start: 10-17-20 End: 12-26-19 take 1 tablet by mouth once daily Fexofenadine 180 mg Tablet Discontinued 180 MG PO Daily October 17, 2021 1:00am December 26, 2022 3:01pm hydrOXYzine hydrochloride 25 mg oral tablet (20 sources) Antihistamine Start: 08-16-20 End: 02-21-20 take 1 tablet by mouth every eight hours as needed Hydroxyzine Hcl 25 mg tablet Discontinued 25 MG PO Q8H as needed for Agitation October 17, 2021 1:00am February 21, 2024 10:47am Start: 08-16-2021 take 1 tablet by mouth once hy drOXYzine HCL (Atarax) 25 mg tablet Take 1 tablet (25 mg) by mouth 1 time. 08/16/2021 Active ketorolac tromethamine 5 mg/ml ophthalmic solution (15 sources) Nonsteroidal Anti-inflammatory Drug, Cyclooxygenase Inhibitor Start: 04-13-2024 End: 08-25-2024 ketorolac (Acular) 0.5 % ophthalmic solution Three times daily 04/13/2024 08/25/2024 Discontinued (Therapy completed) Start: 04-13-2024 End: 03-14-2025 take 1 drop(s) into the eye(s) three times daily Ketorolac 0.5 % drops Discontinued 1 DROPS EYE-RIGHT Three times daily April 13, 2024 12:00am March 14, 2025 1:42am Start: 04-13-2024 take 1 drop(s) into the eye(s) three times daily Ketorolac Active 1 DROPS EYE-RIGHT Three times daily April 13, 2024 12:00am Start: 02-13-2024 End: 03-14-2024 take 1 drop(s) into the eye(s) twice daily ketorolac (Acular) 0.5 % ophthalmic solution Administer 1 drop into affected eye(s) twice a day. 02/13/2024 03/14/2024 Active levETIRAcetam 250 mg oral tablet (9 sources) Start: 04-16-2024 End: 03-14-2025 take 1 tablet by mouth twice daily Levetiracetam 250 mg Tablet Discontinued 250 MG PO Twice daily 180 90 April 16, 2024 12:00am March 14, 2025 1:42am levoFLOXacin 500 mg oral tablet (4 sources) Quinolone Antimicrobial Start: 02-24-2024 End: 08-25-2024 take 1 tablet by mouth once daily levoFLOXacin (Levaquin) 500 MG tablet Take 500 mg by mouth Daily 02/24/2024 08/25/2024 Discontinued (Therapy completed) levothyroxine sodium 0.075 mg oral tablet (20 sources) l-Thyroxine Start: 05-10-2021 End: 02-22-2024 take 1 tablet by mouth once daily in the morning Levothyroxine 75 mcg tablet Discontinued 75 MCG PO Every morning October 17, 2021 1:00am February 22, 2024 9:14am Start: 05-23-2020 take 1 tablet by marilyn th once daily in the morning Levothyroxine 50 mcg tablet Active 50 MCG PO Every morning February 22, 2024 12:00am daily except for sunday Comment on above: 50 mcg. LORazepam 1 mg oral tablet (7 sources) Benzodiazepine Start: 06-29-20 09 End: 12-28-19 24 lorazepam(ATIVAN 1 MG TAB) Take one(1) tablet daily at hs. 0 06/29/2009 12/28/2023 Discontinued Comment on above: Take one(1) tablet d aily at hs. lovastatin 40 mg oral tablet (7 sources) HMG-CoA Reductase Inhibitor Start: 06-29-20 End: 12-28-19 24 lovastatin(MEVACOR 40 MG TAB) Take one(1) tablet [...] 17, 2021 12:00am December 26, 2022 2:02pm Multivitamin Tablet (5 sources) Start: 10-17-2021 End: 12-26-2022 take 1 tablet by mouth once daily Multivitamin Tablet Discontinued 1 TAB PO Daily October 17, 2021 1:00am December 26, 2022 3:02pm Start: 10-17-2021 End: 12-26-2022 take 1 tablet by mouth once daily Multivitamin Tablet Discontinued 1 TAB PO Daily October 17, 2021 12:00am December 26, 2022 2:02pm ofloxacin 3 mg/ml ophthalmic solution (15 sources) Quinolone Antimicrobial Start: 04-13-2024 End: 03-14-2025 take 0.3 drop(s) into the eye(s) twice daily Ofloxacin 0.3 % drops Discontinued 1 DROPS EYE-RIGHT Twice daily April 13, 2024 12:00am March 14, 2025 1:43am Start: 04-13-2024 take 1 drop(s) into the eye(s) twice daily Ofloxacin Active 1 DROPS EYE-RIGHT Twice daily April 13, 2024 12:00am Start: 02-13-2024 End: 08-25-2024 take 1 drop(s) into the eye(s) five times daily ofloxacin (Ocuflox) 0.3 % ophthalmic solution Administer 1 drop into the right eye 5 (five) times a day 02/13/2024 08/25/2024 Discontinued (Therapy completed) Start: 02-13-2024 take 1 drop(s) into the eye(s) five times daily ofloxacin (Ocuflox) 0.3 % ophthalmic solution Administer 1 drop into the right eye five times a day for 1 day Starting 1 day before surgery, continue after surgery as directed 02/13/2024 Active prednisoLONE acetate 10 mg/ml ophthalmic suspension (14 sources) Corticosteroid Start: 04-13-2024 End: 08-25-2024 prednisoLONE acetate (Pred-Forte) 1 % ophthalmic suspension Three times daily 04/13/2024 08/25/2024 Discontinued Start: 04-13-2024 End: 03-14-2025 take 1 drop(s) into the eye(s) three times daily Prednisolone Acetate (Pred Forte) 1 % drops,suspension Discontinued 1 DROPS EYE-RIGHT Three times daily April 13, 2024 12:00am March 14, 2025 1:44am pregabalin 75 mg oral capsule (10 sources) Start: 04-21-2024 End: 03-05-2025 take 1 capsule by mouth in the morning pregabalin (Lyrica) 75 MG capsule Indications: Seizure (CMS/HCC) Take 1 capsule (75 mg) by mouth in the morning and 1 capsule (75 mg) before bedtime. 60 capsule 2 04/21/2024 03/05/2025 Discontinued (Therapy completed) thymol/chlorophyllin (CHLOROPHYLL ORAL) (7 sources) End: 12-28-2023 thymol/chlorophyllin (CHLOROPHYLL ORAL) Take by mouth. 12/28/2023 Discontinued End: 12-28-2023 thymol/chlorophyllin (CHLORO PHYLL ORAL) Take by mouth. 0 12/28/2023 Discontinued thymol/chlorophy llin (CHLOROPHYLL ORAL) Take by mouth. 0 Active Comment on above: Take by mouth. tiZANidine 4 mg oral tablet (20 sources) Central alpha-2 Adrenergic Agonist Start: 1 End: 4 take 1 tablet by mouth twice daily as needed for muscle spasms Tizanidine (Zanaflex) 4 mg Tablet Discontinued 4 MG PO Twice daily as needed for muscle spasms October 17, 2021 1:00am February 21, 2024 10:48am Start: 04-11-2020 End: 12-28-2023 tiZANidine HCl 4 mg capsule Take 4 mg by mouth. 04/11/2020 12/28/2023 Discontinued Comment on above: Take 4 mg by mouth. traMADol hydrochloride 50 mg oral tablet (18 sources) Opioid Agonist Start: 1 End: 3 take 1 tablet by mouth every six hours as needed for pain Tramadol 50 mg tablet Discontinued 50 MG PO Q6H as needed for pain 8 2 October 25, 2021 1:00am December 26, 2022 3:02pm Problems Active Problems Problem Classification Problem Date Documented Da te Episodic/Chronic Acute myocardial infarction (14 sources) Myocardial infarction; Translations: [Non-ST elevation (NSTEMI) myocardial infarction] Onset: 4 04-14-2024 Chronic Aspiration pneumonitis; food/vomitus (2 sources) Aspiration pneumonitis; Translations: [Pneumonitis due to inhalation of food and vomit] 12-28-2023 Episodic Cardiac dysrhythmias (4 sources) Sinus bradycardia; Translations: [Other specified cardiac dysrhythmias] Onset: 4 03-10-2024 Episodic Cataract (16 sources) Bilateral age-related nuclear cataracts; Translations: [Age-related nuclear cataract, bilateral] Onset: 4 02-13-2024 Chronic Chronic obstructive pulmonary disease and bronchiectasis (20 sources) Bronchiectasis; Translations: [Bronchiectasis, uncomplicated] Onset: 4 12-28-2023 Chronic Chronic obstructive pulmonary disease and bronchiectasis (8 sources) Bronchitis, not specified as acute or chronic; Translations: [Bronchitis, not specified as acute or chronic] 02-13-2024 Episodic Coronary atherosclerosis and other heart disease (15 sources) Acute coronary syndrome; Translations: [Acute ischemic heart disease, unspecified] 04-13-2024 Chronic Delirium, dementia, and amnestic and other cognitive disorders (20 sources) Dementia associated with another disease; Translations: [Dementia in other diseases classified elsewhere without behavioral disturbance] Onset: 3 08-20-2023 Chronic Diabetes mellitus with complications (20 sources) Disorder of nervous system due to type 2 diabetes mellitus; 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] Onset: 3 Chronic Diabetes mellitus without complication (4 sources) Type 2 diabetes mellitus; Translations: [Type 2 diabetes mellitus without complications] Onset: 4 03-10-2024 Chronic Disorders of lipid metabolism (20 sources) Mixed hyperlipidemia; Translations: [Mixed hyperlipidemia] Onset: 3 Chronic Epilepsy; convulsions (2 sources) Epilepsy; Translations: [Localization-related (focal) (partial) symptomatic epilepsy and epileptic syndromes with complex partial seizures, intractable, without status epilepticus] 08-13-2024 Chronic Esophageal disorders (20 sources) Gastroesophageal reflux disease; Translations: [Gastro-esophageal reflux disease without esophagitis] Onset: 3 02-21-2024 Chronic Genitourinary symptoms and ill-defined conditions (18 sources) Urinary incontinence; Translations: [Unspecified urinary incontinence] Onset: 3 08-20-2023 Chronic Lymphadenitis (2 sources) Hilar lymphadenopathy ; Translations: [Localized enlarged lymph nodes] 03-25-2025 Episodic Malaise and fatigue (5 sources) Weakness; Translations: [Asthenia] Onset: 5 03-14-2025 Episodic Menopausal disorders (1 source) Hormone replacement therapy; Translations: [HORMONE REPLACEMENT THERAPY] Onset: 3 Episodic Mycoses (3 sources) Onychomycosis due to dermatophyte ; Translations: [Tinea unguium] Episodic Osteoporosis (18 sources) Osteoporosis; Translations: [Age-related osteoporosis without current pathological fracture] Onset: 3 08-20-2023 Chronic Other aftercare (1 source) Treatment changed; Translations: [Other nursing home (current) drug therapy] 03-10-2024 Episodic Other aftercare (4 sources) Patient encounter status; Translations: [Other terminal system operator (current) drug therapy] 08-25-2024 Episodic Other circulatory disease (2 sources) Abnormal chest sounds; Translations: [Other specified symptoms and signs involving the circulatory and respiratory systems] Onset: 4 03-10-2024 Episodic Other gastrointestinal disorders (4 sources) Constipation, unspecified; Translations: [CONSTIPATION UNSPECIFIED] Onset: 3 Episodic Other gastrointestinal disorders (12 sources) Dysphagia; Translations: [Dysphagia, unspecified] 02-21-2024 Episodic Comment on above: mild Other gastrointestinal disorders (7 sources) Dysphagia, unspecified; Translations: [Dysphagia, unspecified] 02-21-2024 Episodic Other lower respiratory disease (3 sources) Interstitial lung disease; Translations: [Interstitial pulmonary disease, unspecified] 12-25-2023 Chronic Other nervous system disorders (18 sources) Acute postoperative pain; Translations: [Other acute [...] (BMI) 32.0-32.9, adult] Onset: 4 Chronic Other screening for suspected conditions (not mental disorders or infectious disease) (9 sources) Encounter for screening mammogram for malignant neoplasm of breast; Translations: [Other specified abnormal findings of blood chemistry] Onset: 2 Episodic Other upper respiratory disease (16 sources) Vasomotor rhinitis; Translations: [Vasomotor rhinitis] Onset: 4 Resolved: 4 12-05-2023 Chronic Other upper respiratory disease (19 sources) Feeling of lump in throat; Translations: [Globus sensation] 02-21-2024 Episodic Peripheral and visceral atherosclerosis (2 sources) Atherosclerosis of aorta; Translations: [Atherosclerosis of aorta] 08-25-2024 Chronic Pneumonia (except that caused by tuberculosis or sexually transmitted disease) (12 sources) Human metapneumovirus pneumonia; Translations: [Pneumonia, unspecified organism] Onset: 5 03-14-2025 Episodic Pulmonary heart disease (4 sources) Pulmonary hypertension, unspecified; Translations: [Pulmonary hypertension] Onset: 4 Chronic Residual codes; unclassified (2 sources) Edema; Translations: [Edema, unspecified] 03-05-2025 Episodic Residual codes; unclassified (2 sources) Acute confusion; Translations: [Disorientation, unspecified] 03-14-2025 Episodic Residual codes; unclassified (2 sources) Disorientation, unspecified; Translations: [Delirium due to conditions classified elsewhere] 03-14-2025 Episodic Respiratory failure; insufficiency; arrest (adult) (5 sources) Acute respiratory failure with hypoxia; Translations: [Acute respiratory failure] Onset: 5 03-14-2025 Episodic Rheumatoid arthritis and related disease (2 sources) Ankylosing spondylitis; Translations: [Ankylosing spondylitis lumbar region] Onset: 5 04-08-2025 Chronic Spondylosis; intervertebral disc disorders; other back problems (18 sources) Disseminated idiopathic skeletal hyperostosis; Translations: [Ankylosing hyperostosis [[place]], site unspecified] Onset: 4 02-25-2024 Chronic Thyroid disorders (20 sources) Hypothyroidism; Translations: [Hypothyroidism, unspecified] Onset: 3 Chronic Unclassified (1 source) Unspecified intracranial injury with loss of consciousness status unknown, sequela ([facility]); Translations: [Unspecified intracranial injury with loss of consciousness status unknown, sequela ([facility])] Onset: 4 Unclassified (1 source) Cough, unspecified; Translations: [Cough, unspecified] Onset: 4 Unclassified (1 source) A [facility] screening has identified you as FRAIL or AT RISK FOR FRAILTY. This puts you at a higher risk for infection, illness, falls, and other injuries. Here are four ways to help you reduce your risk of frailty: 1. IDENTIFY EARLY SIGNS OF FRAILTY Discuss contributing factors and concerns with your doctor 2. BE ACTIVE Walking and light strengthening exercises will help reduce weakness 3. EAT WELL Aim for three healthy meals a day that are high in protein 4. THINK POSITIVE Keep your mind active by being sociable and continuing to learn References: Stay Strong: Four Ways to Beat the Frailty Risk [email or web address]-ioq-asbpibvckk/sta q-oysboq-sgpr-ways-to- dtdu-bsr-doi ilty-risk 03-15-2025 Past or Other Problems Problem Classification Problem Date Documented Date Episodic/Chronic Administrative/social admission (2 sources) Person consulting for explanation of examination or test findings; Translations: [Person consulting for explanation of examination or test findings] Onset: 06-12-2024 Episodic Asthma (20 sources) Moderate asthma; Translations: [Unspecified asthma, uncomplicated] Onset: 08-20-2023 Resolved: 08-25-2024 08-20-2023 Chronic Epilepsy; convulsions (20 sources) Seizure; Translations: [Unspecified convulsions] Onset: 04-24-2024 04-22-2024 Episodic Genitourinary symptoms and ill-defined conditions (5 sources) Frequency of micturition; Translations: [Urgency of urination] Onset: 04-05-2022 Episodic Immunizations and screening for infectious disease (18 sources) Needs influenza immunization; Translations: [Encounter for immunization] Onset: 08-23-2023 Resolved: 08-25-2024 08-23-2023 Episodic Intracranial injury (20 sources) Traumatic brain injury with loss of consciousness; Translations: [Unspecified intracranial injury with loss of consciousness of unspecified duration, sequela] Onset: 03-10-2024 12-28-2023 Episodic Mood disorders (16 sources) Mood disorders Onset: 02-22-2024 02-22-2024 Other aftercare (3 sources) Other nursing home (current) drug therapy; Translations: [OTH [facility] CURRENT DRUG THERAPY] Onset: 02-12-2023 Episodic Other circulatory disease (16 sources) Pulmonary congestion ; Translations: [Other specified symptoms and signs involving the circulatory and respiratory systems] Onset: 12-05-2023 Resolved: 08-25-2024 12-05-2023 Episodic Other circulatory disease (2 sources) Other specified symptoms and signs involving the circulatory and respiratory systems; Translations: [Other specified symptoms and signs involving the circulatory and respiratory systems] Onset: 03-10-2024 Episodic Other lower respiratory disease (16 sources) Fibrosis of lung; Translations: [Pulmonary fibrosis, unspecified] Onset: 08-20-2023 Resolved: 08-25-2024 08-20-2023 Chronic Other lower respiratory disease (16 sources) Nonspecific interstitial pneumonia; Translations: [Other specified interstitial pulmonary diseases] Onset: 02-25-2024 Resolved: 08-25-2024 02-25-2024 Chronic Other lower respiratory disease (20 sources) Cough; Translations: [Cough] Onset: 06-29-2020 06-29-2020 Episodic Other lower respiratory disease (20 sources) Dyspnea; Translations: [Shortness of breath] Onset: 02-25-2024 Resolved: 08-25-2024 12-25-2023 Episodic Other lower respiratory disease (16 sources) Chronic cough; Translations: [Chronic cough] Onset: 12-05-2023 Resolved: 08-25-2024 12-05-2023 Episodic Other lower respiratory disease (1 source) Shortness of breath; Translations: [Shortness of breath] Onset: 03-10-2024 Episodic Other nervous system disorders (3 sources) Dysphasia; Translations: [Dysphasia] Onset: 03-10-2024 03-10-2024 Episodic Other nervous system disorders (1 source) Dysphasia; Translations: [Dysphasia] Onset: 03-10-2024 Episodic Screening and history of mental health and substance abuse codes (8 sources) Ex-smoker; Translations: [Personal history of tobacco use] Onset: 02-12-2023 03-10-2024 Episodic Comment on above: Quit 1980; Syncope (16 sources) Syncope; Translations: [Syncope and collapse] Onset: 04-13-2024 04-13-2024 Episodic Unclassified (1 source) Onset: 03-10-2024 03-10-2024 Unclassified (1 source) Unspecified intracranial injury with loss of consciousness status unknown, sequela ([facility]); Translations: [Unspecified intracranial injury with loss of consciousness status unknown, sequela ([facility])] Onset: 03-10-2024 Unclassified (1 source) Cough, unspecified; Translations: [Cough, unspecified] Onset: 03-10-2024 Urinary tract infections (18 sources) Recurrent urinary tract infection; Translations: [Urinary tract infection, site not specified] Onset: 08-25-2024 08-25-2024 Episodic Results Test Name Value Interpretation Reference Range Facility XR SACRUM COCCYX 2+ VIEWSon 04-07-2025 XR SACRUM COCCYX 2+ VIEWS Exam: XR SACRUM COCCYX 2+ VIEWS Reason [...] signed and approved by the interpreting radiologist. Normal Not Available Juany 03-24-2025 [facility] Telephone ([facility]) -- KARUNA REYNAGA ([id number]) 1945 F Date Time Provider Department 03/24/25 UBALDO DUBOSE During your visit today, we recorded the following information about you: John Madison 03/24/2025 2:13 PM Signed Uploaded external CT report from [facility], dated 03/13/2025. Please allow time delay for documents to appear in [facility] (Scanned Documents Tab). Images can take up to 24 hours to appear in Epic. Allergies As of Date: 03/24/2025 Noted Allergy Reaction DARVOCET A500 (PROPOXYPHENE N-ROB*06/29/2020 [...] ANTIBIOTICS) 06/29/2009 2 - Rash Date Reviewed: 12/24/2024 Reviewed by: Lisa William MD, PhD - Fully Assessed Reason for Visit: Received Outside Medical Records [[id number]] Prescriptions as of 03/24/2025 - cannabidiol (EPIDIOLEX) 100 mg/mL oral liquid Take 2 mL by mouth two times a day for 180 days. - ipratropium-albuterol (DUONEB) 0.5 mg-3 mg(2.5 mg base)/3 mL nebu Inhale contents of 1 vial via nebulizer as instructed every 4 hours as needed for wheezing/shortness of breath. - azithromycin (ZITHROMAX) 250 mg tablet Take 1 tablet by mouth every Sunday, Sunday, and Sunday. - lamoTRIgine (LAMICTAL) 25 mg tablet take 1 qhs for 2 weeks, then 1 pill bid for two weeks, then 1 pill in AM, 2pill in PM for week, then 2 pills bid for 1 week, then 2 pill in AM, 3 pill in PM for week, then 3 pills bid and stay at that dose. - sodium chloride (NEBUSAL) 3 % nebulizer [...] tablet daily. Problem List As Of Date 03/24/2025 Noted Resolved Cough [R05.9] 06/29/2020 Encounter Status:Closed by JOHN MADISON on 03/24/25 Normal [facility] Basophils Auto (Bld) [#/Vol] Ordered By: Magda Navarro on 03-14-2025 Basophils (Bld) [#/Vol] Automated basophil count 0.0-0.2 [facility] Basophils/100 WBC Auto (Bld) Ordered By: Magda Navarro on 03-14-2025 Basophils/100 WBC (Bld) Automated basophil % . [facility] Blood Cultureon 03-14-2025 Bacteria identified Cx Nom (Bld) NO GROWTH 5 DAYS PERFORMED BY: [place] [address] PATHOLOGIST MACHINE SPECIALIST ROZ MAE M.D. Normal [facility] Comment on above: Performed By: #### C MP, PTT, CBC, PT, HS TROP, CK #### [facility] [address] [place] [id number] [facility] Bacteria identified Cx Nom (Bld) NO GROWTH 5 DAYS PERFORMED BY: [place] [address] PATHOLOGIST MACHINE SPECIALIST ROZ MAE M.D. Normal [facility] Comment on above: Performed By: #### C MP, PTT, CBC, PT, HS TROP, CK #### [facility] [address] [place] [id number] [facility] CT angio chest PE protocolon 03-14-2025 CT angio chest PE protocol [facility] Main [place] [id number] Scan Report Signed Patient: Karuna Reynaga MR#: [id number] : 1945 Acct:[id number] Age/Sex: 80 / F ADM Date: 03/14/25 Loc: Room: [address] [place] [address] Type: ADM IN Attending Dr: Renan Murguia MD Copies to: MD Loraine Lanier MD Ordering Provider: Loraine Mccallum MD Date of Service: 03/13/25 CT/CT angio chest PE protocol: r/o pe, tachy, elevated trop CT angio chest PE protocol 03/13/2025 11:58 PM SIGN AND SYMPTOMS: r/o pe, tachy, elevated trop CONTRAST: 70 mL of intravenous Isovue-370 TECHNIQUE: Multidetector CT axial slices of the chest were obtained with IV contrast. Multiplanar reformats were performed and viewed on a separate workstation and reviewed to further define anatomy and possible pathology. CT was performed with one or more of the following dose reduction techniques: Automated exposure control, adjustment of the mA and/or kV according to patient size, or use of iterative reconstruction technique. COMPARISON: None. FINDINGS: Lower neck: The thyroid tissue is atrophic or previously removed. Vessels: Atherosclerotic changes are noted in the thoracic aorta and coronary arteries. There is no evidence of pulmonary embolism. Mediastinum and Barbara: There is mild soft tissue prominence in the right hilum which may represent reactive lymphadenopathy. Malignancy is not excluded however. This is worse when compared to the prior exam with the largest lymph node measuring 1 cm in short axis. Heart: Normal size. No pericardial effusion. Airways: Within normal limits Lungs: Worsening airspace opacity is noted in the right perihilar region Pleura: Within normal limits. Chest Wall: Within normal limits. Upper Abdomen: There is a stone within the gallbladder lumen. Bones: Degenerative changes are noted in the thoracic spine and cervical spine. Postsurgical changes are noted along the left humerus. CT/CT angio chest PE protocol IMPRESSION: There is no pulmonary embolism. Right perihilar airspace opacity is noted predominantly affecting the right upper lobe. This may be infectious in nature. Mildly prominent right hilar lymph nodes are noted, slightly larger compared to the prior exam. These may be reactive in nature. Impression dictated by: Jose Muñoz M.D. 03/14/2025 8:40 AM Dictation Location: [facility]17 Transcribed By: [facility] 03/14/25 0840 Dictated By: Jose Muñoz II, MD 03/14/25829 Signed By: 03/14/25 0840 Normal [facility] Complete Blood Count Auto Di ffon 03-14-2025 Basophils (Bld) [#/Vol] 0.0 10*3/uL Normal 0.0-0.2 [facility] Comment on above: Order Comment: PER R N PARDEEP AND FAMILY REQUEST PT IS AGGRESSIVE Result Comment: PERF ORMED BY: [place] [address] PATHOLOGIST MACHINE SPECIALIST ROZ MAE M.D. Performed By: #### C MP, PTT, CBC, PT, HS TROP, CK #### [address] Basophils/100 WBC (Bld) 0.7 % Normal . [facility] Comment on above: Order Comment: PER R N PARDEEP AND FAMILY REQUEST PT IS AGGRESSIVE Performed By: #### C MP, PTT, CBC, PT, HS TROP, CK #### [place] [address] [place] Eosinophils (Bld) [#/Vol] 0.1 10*3/uL Normal 0.0-0.45 [facility] Comment on above: Order Comment: PER R N PARDEEP AND FAMILY REQUEST PT IS AGGRESSIVE Performed By: #### C MP, PTT, CBC, PT, HS TROP, CK #### [address] Eosinophils/100 WBC (Bld) 1.0 % Normal . [facility] Comment on above: Order Comment: PER R N PARDEEP AND FAMILY REQUEST PT IS AGGRESSIVE Performed By: #### C MP, PTT, CBC, PT, HS TROP, CK #### [address] Erythrocyte distribution width (RBC) [Ratio] 13.6 % Normal 11.9-15.3 [facility] Comment on above: Order Comment: PER R N PARDEEP AND FAMILY REQUEST PT IS AGGRESSIVE Performed By: #### C MP, PTT, CBC, PT, HS TROP, CK #### [address] Hematocrit (Bld) [Volume fraction] 38.5 % Normal 34.0-46.4 [facility] Comment on above: Order Comment: PER R N PARDEEP AND FAMILY REQUEST PT IS AGGRESSIVE Performed By: #### C MP, PTT, CBC, PT, HS TROP, CK #### [address] Hemoglobin (Bld) [Mass/Vol] 12.7 g/dL Normal 11.8-15.4 [facility] Comment on above: Order Comment: PER R N PARDEEP AND FAMILY REQUEST PT IS AGGRESSIVE Performed By: #### C MP, PTT, CBC, PT, HS TROP, CK #### [address] Lymphocytes (Bld) [#/Vol] 1.2 10*3/uL Normal 1.00-4.8 [facility] Comment on above: Order Comment: PER R N PARDEEP AND FAMILY REQUEST PT IS AGGRESSIVE Performed By: #### C MP, PTT, CBC, PT, HS TROP, CK #### [address] Lymphocytes/100 WBC (Bld) 16.8 % Normal . [facility] Comment on above: Order Comment: PER R N PARDEEP AND FAMILY REQUEST PT IS AGGRESSIVE Performed By: #### C MP, PTT, CBC, PT, HS TROP, CK #### [address] MCH (RBC) [Entitic mass] 29.7 pg Normal 24.7-34.3 [facility] Comment on above: Order Comment: PER R N PARDEEP AND FAMILY REQUEST PT IS AGGRESSIVE Performed By: #### C MP, PTT, CBC, PT, HS TROP, CK #### [address] MCV (RBC) [Entitic vol] 90.2 fL Normal 80-100 [facility] Comment on above: Order Comment: PER R N PARDEEP AND FAMILY REQUEST PT IS AGGRESSIVE Performed By: #### C MP, PTT, CBC, PT, HS TROP, CK #### [address] Mean Corpuscular HGB Conc 32.9 g/dL Normal 32.0-35.0 [facility] Comment on above: Order Comment: PER R N PARDEEP AND FAMILY REQUEST PT IS AGGRESSIVE Performed By: #### C MP, PTT, CBC, PT, HS TROP, CK #### [address] Monocytes (Bld) [#/Vol] 0.6 10*3/uL Normal 0.0-0.8 [facility] Comment on above: Order Comment: PER R N PARDEEP AND FAMILY REQUEST PT IS AGGRESSIVE Performed By: #### C MP, PTT, CBC, PT, HS TROP, CK #### [address] Monocytes/100 WBC (Bld) 24.48 % High 0.00-20.00 [facility] Comment on above: Order Comment: PER R N PARDEEP AND FAMILY REQUEST PT IS AGGRESSIVE Result Comment: For adults in ED, MDW > 20.0 may be associated with a higher risk of sepsis during the first 12 hrs of hospital admission Performed By: #### C MP, PTT, CBC, PT, HS TROP, CK #### [address] Monocytes/100 WBC (Bld) 8.7 % Normal . [facility] Comment on above: Order Comment: PER R N PARDEEP AND FAMILY REQUEST PT IS AGGRESSIVE Performed By: #### C MP, PTT, CBC, PT, HS TROP, CK #### [address] Neutrophils (Bld) [#/Vol] 5.0 10*3/uL Normal 1.8-7.7 [facility] Comment on above: Order Comment: PER R N PARDEEP AND FAMILY REQUEST PT IS AGGRESSIVE Performed By: #### C MP, PTT, CBC, PT, HS TROP, CK #### [address] Neutrophils/100 WBC (Bld) 72.8 % Normal . [facility] Comment on above: Order Comment: PER R N PARDEEP AND FAMILY REQUEST PT IS AGGRESSIVE Performed By: #### C MP, PTT, CBC, PT, HS TROP, CK #### [address] NRBC% 0.1 /100{WBC} Normal 0-0.5 [facility] Comment on above: Order Comment: PER R N PARDEEP AND FAMILY REQUEST PT IS AGGRESSIVE Performed By: #### C MP, PTT, CBC, PT, HS TROP, CK #### [address] Platelet mean volume (Bld) [Entitic vol] 8.3 fL Normal 6.3-10.7 [facility] Comment on above: Order Comment: PER R N PARDEEP AND FAMILY REQUEST PT IS AGGRESSIVE Performed By: #### C MP, PTT, CBC, PT, HS TROP, CK #### [address] Platelets (Bld) [#/Vol] 169 10*3/uL Normal 150-450 [facility] Comment on above: Order Comment: PER R N PARDEEP AND FAMILY REQUEST PT IS AGGRESSIVE Performed By: #### C MP, PTT, CBC, PT, HS TROP, CK #### [address] RBC (Bld) [#/Vol] 4.27 10*6/uL Normal 3.60-5.00 [facility] Comment on above: Order Comment: PER R N PARDEEP AND FAMILY REQUEST PT IS AGGRESSIVE Performed By: #### C MP, PTT, CBC, PT, HS TROP, CK #### [address] WBC (Bld) [#/Vol] 6.9 10*3/uL Normal 3.8-11.6 [facility] Comment on above: Order Comment: PER R N PARDEEP AND FAMILY REQUEST PT IS AGGRESSIVE Performed By: #### C MP, PTT, CBC, PT, HS TROP, CK #### [facility] [address] [place] [address] ECG 12 lead ECGon 03-14-2025 ECG 12 lead ECG [place] [address] Electrocardiograph Report Signed Patient: Karuna Reynaga MR#: [id number] 289 : 1945 Acct:[id number] Age/Sex: 80 / F ADM Date: 03/14/25 Loc: Room: [address] [place] [address] Type: ADM IN Attending Dr: Renan Murguia MD Ordering Provider: Loraine Mccallum MD Date of Service: 03/13/2507/30/2143 ECG/ECG 12 lead ECG: Upper Respiratory Infection Copies to: Test Reason : Blood Pressure : 139/58 mmHG Vent. Rate : 101 BPM Atrial Rate : 101 BPM P-R Int : 170 ms QRS Dur : 92 ms QT Int : 348 ms P-R-T Axes : 56 97 43 degrees QTcB Int : 451 ms Sinus tachycardia Rightward axis Confirmed by Alessio IVY, Loraine ([id number]) on 03/14/2025 9:20:47 AM Referred By: Electronically Signed By: Loraine Mccallum MD Transcribed By: MUS Signed By Loraine Mccallum MD 03/05 0920 Normal [facility] ECH echo limitedon ECH echo limited [place] [address] Echocardiogram Signed Patient: Karuna Reynaga MR#: [id number] : 1945 Acct:[id number] Age/Sex: 80 / F ADM Date: 03/14/25 Loc: Room: [address] [place] [address] Type: ADM IN Attending Dr: Renan Murguia MD Ordering Provider: Praveena Garcia MD Date of Service: 03/14/2508/29/1323 ECH/ECH echo limited: Assess EF and wall motion Copies to: Praveena Garcia MD Karuna Wylie PM Patient Location: : 1945 Gender: Female (MM/DD/YYYY) Age: 80 Years Ordering Physician: Praveena Garcia Height: 56.69 in Weight: 130.752 lb Performed By: Nkechi Allison RDCS BSA: 1.50 m2 BP: 106 / 71 mmHg HR: 94 bpm Reason For Study: Assess EF and wall motion History: : HLD. GERD. TIA. COPD. DM. Former Smoker. + + Interpretation Summary Ejection Fraction = 60-65%. The left ventricular size and thickness are normal. The left ventricular wall motion is normal. A variety of Doppler measurements indicate impaired left ventricular relaxation, which is associated with grade I/IV or mild diastolic dysfunction. Limited views were obtained. Procedure/Quality: A limited two-dimensional transthoracic echocardiogram with injection of contrast agent Definity was performed. Left Ventricle: The left ventricular size and thickness are normal. Ejection Fraction = 60-65%. A variety of Doppler measurements indicate impaired left ventricular relaxation, which is associated with grade I/IV or mild diastolic dysfunction. The left ventricular wall motion is normal. Right Atrium: The right atrium appears normal in size. Right Ventricle: The right ventricle is normal in size and function. Aortic Valve: The aortic valve is mildly sclerotic. No hemodynamically significant valvular aortic stenosis. No aortic regurgitation is present. Tricuspid Valve: The tricuspid valve is normal in structure. Arteries: The aortic root is normal size. Pericardium/Pleura: No pericardial effusion seen. IVC/Hepatic Veins: The inferior vena cava is normal in size, with a normal collapsibility index. MMode/2D Measurements Calculations IVSd (0.7-1.1 cm): 0.59 cm LVIDd (3.7-5.4 cm): 4.3 cm LVPWd (0.7-1.1 cm): 0.61 cm LVIDs (2.3-3.6 cm): 2.49 cm LA dimension (2.3-4.0 cm): 3.0 Ao root diam (2.0-3.2 cm): 2.6 cm cm FS: 42.6 % Ao root area: 5.4 cm2 EDV(Teich): 84.6 ml LVOT diam: 2.03 cm ESV(Teich): 22.1 ml LVOT area: 3.2 cm2 EF(Teich): 73.9 % LAV(MOD-sp2): 26.8 ml LAV(MOD-sp4): 37.0 ml LA A2 area: 12.6 cm2 LA A4 area: 15.5 cm2 LA length (vol): 5.0 cm LA vol: 32.9 ml LA vol index: 22.0 ml/m2 Doppler Measurements Calculations MV E max haydee: 76.4 cm/sec Ao V2 max: 167.4 cm/sec MV A max haydee: 96.0 cm/sec Ao max P.2 mmHg MV dec time: 0.16 sec Ao mean P.2 mmHg MV dec slope: 474.1 cm/sec?? Ao V2 mean: 117.4 cm/sec E/E' lat: 6.1 Ao V2 VTI: 30.7 cm E/E' med: 10.5 WEST(I,D): 1.82 cm2 WEST(V,D): 2.04 cm2 RAP systole: 3.0 mmHg LV V1 max: 105.1 cm/sec LV V1 max P.4 mmHg LV V1 mean: 74.2 cm/sec LV V1 mean P.45 mmHg LV V1 VTI: 17.2 cm + + + + + -+ + : Electronically : : signed by: Praveena : : : : Radha : : : : on: 03/14/2025, : : : : 2:49 PM : + -+ + Transcribed By: SCAdolfo Performed At: 03/14/25 1328 Signed By: Praveena Garcia MD 03/14/25 0239 Normal [facility] Eosinophils Auto (Bld) [#/Vo l]Ordered By: Magda Navarro on 03-14-2025 Eosinophils (Bld) [#/Vol] Automated eosinophil count 0.0-0.45 [facility] Eosinophils/100 WBC Auto (Bl d)Ordered By: Magda Navarro on 03-14-2025 Eosinophils/100 WBC (Bld) Automated eosinophil % . [facility] Erythrocyte distribution wid th Auto (RBC) [Ratio]Ordered By: Magda Navarro on 03-14-2025 Erythrocyte distribution width (RBC) [Ratio] Erythrocyte distribution width [Ratio] by Automated count 11.9-15.3 [facility] Hematocrit Auto (Bld) [Volum e fraction]Ordered By: Magda Navarro on 03-14-2025 Hematocrit (Bld) [Volume fraction] Hematocrit [Volume Fraction] of Blood by Automated count 34.0-46.4 [facility] Hemoglobin [Mass/volume] in BloodOrdered By: Magda Navarro on 03-14-2025 Hemoglobin (Bld) [Mass/Vol] Hemoglobin [Mass/volume] in Blood 11.8-15.4 [facility] Lactate [Moles/volume] in Se rum or PlasmaOrdered By: Loraine Mccallum on 03-14-2025 Lactate [Moles/Vol] Lactate [Moles/volum e] in Serum or Plasma 0.5-1.9 [facility] Comment on above: Lactic Acid referenc e range has been updated to 0.5 1.9 mmol/L and the critical range of 2.0 or greater. Lactic Acidon 03-14-2025 Lactate [Moles/Vol] 1.3 mmol/L Normal 0.5-1.9 [facility] Comment on above: Result Comment: Lact ic Acid reference range has been updated to 0.5 ? 1.9 mmol/L and the critical range of 2.0 or greater. PERFORMED BY: [place] [address] PATHOLOGIST MACHINE SPECIALIST ROZ MAE M.D. Performed By: #### C MP, PTT, CBC, PT, HS TROP, CK #### [place] [id number] [facility] Leukocytes [#/volume] correc rob for nucleated erythrocytes in Blood by Automated counOrdered By: Magda Navarro on 03-14-2025 WBC corrected for nucl RBC Auto (Bld) [#/Vol] Leukocytes [#/volume] corrected for nucleated erythrocytes in Blood by Automated coun 3.8-11.6 [facility] Lymphocytes Auto (Bld) [#/Vo l]Ordered By: Magda Navarro on 03-14-2025 Lymphocytes (Bld) [#/Vol] Lymphocytes [#/volume] in Blood by Automated count 1.00-4.8 [facility] Lymphocytes/100 WBC Auto (Bl d)Ordered By: Magda Navarro on 03-14-2025 Lymphocytes/100 WBC (Bld) Lymphocytes/100 leukocytes in Blood by Automated count . [facility] MCH Auto (RBC) [Entitic mass ]Ordered By: Magda Navarro on 03-14-2025 MCH (RBC) [Entitic mass] MCH [Entitic mass] by Automated count 24.7-34.3 [facility] MCHC Auto (RBC) [Mass/Vol]Or dered By: Magda Navarro on 03-14-2025 MCHC (RBC) [Mass/Vol] MCHC [Mass/volume] by Automated count 32.0-35.0 [facility] MCV Auto (RBC) [Entitic vol] Ordered By: Magda Navarro on 03-14-2025 MCV (RBC) [Entitic vol] MCV [Entitic volume] by Automated count 80-100 [facility] Magnesiumon 03-14-2025 Magnesium [Mass/Vol] 1.9 mg/dL Normal 1.9-2.7 [facility] Comment on above: Order Comment: PER R N PARDEEP AND FAMILY REQUEST PT IS AGGRESSIVE Result Comment: PERF ORMED BY: [facility] [address] [place] [address] PATHOLOGIST MACHINE SPECIALIST ROZ MAE M.D. Performed By: #### C MP, PTT, CBC, PT, HS TROP, CK #### [facility] [address] Magnesium [Mass/volume] in S sun or PlasmaOrdered By: Magda Navarro on 03-14-2025 Magnesium [Mass/Vol] Magnesium [Mass/vol ume] in Serum or Plasma 1.9-2.7 [facility] Monocyte distribution width [Entitic volume] in Blood by AutomatedOrdered By: Magda Navarro on 03-14-2025 Monocyte distribution width Auto (Bld) [Entitic vol] Monocyte distribution width [Entitic volume] in Blood by Automated High 0.00-20.00 [facility] Comment on above: For adults in ED, MD W > 20.0 may be associated with a higher risk of sepsis during the first 12 hrs of hospital admission Monocytes Auto (Bld) [#/Vol] Ordered By: Magda Navarro on 03-14-2025 Monocytes (Bld) [#/Vol] Automated blood monocyte count 0.0-0.8 [facility] Monocytes/100 WBC Auto (Bld) Ordered By: Magda Navarro on 03-14-2025 Monocytes/100 WBC (Bld) Automated monocyte % . [facility] Neutrophils Auto (Bld) [#/Vo l]Ordered By: Magda Navarro on 03-14-2025 Neutrophils (Bld) [#/Vol] Neutrophils [#/volume] in Blood by Automated count 1.8-7.7 [facility] Neutrophils/100 WBC Auto (Bl d)Ordered By: Magda Navarro on 03-14-2025 Neutrophils/100 WBC (Bld) Automated neutrophil % . [facility] Nucleated erythrocytes [Pres ence] in Blood by Automated countOrdered By: Magda Navarro on 03-14-2025 Nucleated RBC Auto Ql (Bld) Nucleated erythrocytes [Presence] in Blood by Automated count 0-0.5 [facility] Platelet mean volume Auto (B ld) [Entitic vol]Ordered By: Magda Navarro on 03-14-2025 Platelet mean volume (Bld) [Entitic vol] Platelet mean volume [Entitic volume] in Blood by Automated count 6.3-10.7 [facility] Platelets Auto (Bld) [#/Vol] Ordered By: Magda Navarro on 03-14-2025 Platelets (Bld) [#/Vol] Platelets [#/volume] in Blood by Automated count 150-450 [facility] RBC Auto (Bld) [#/Vol]Ordere d By: Magda Navarro on 03-14-2025 RBC (Bld) [#/Vol] Erythrocytes [#/volu me] in Blood by Automated count 3.60-5.00 [facility] Troponin I High Sensitivityo n 03-14-2025 Troponin I High Sensitivity 397 Off scale high 0-15 [facility] Comment on above: Order Comment: PER R N PARDEEP AND FAMILY REQUEST PT IS AGGRESSIVE Result Comment: Crit ical Result : Called to and read back by: MAGDA BANUELOS/Yemi at: 03/14/2025 12:01:03 by:[id number] The Troponin units of report have been changed to meet the Chest Pain Accreditation requirement, element EC5.M1l2. Troponin units are changed from pg/ml to ng/L. Also, the decimal is removed and results are in whole numbers. PERFORMED BY: [place] [address] PATHOLOGIST MACHINE SPECIALIST ROZ MAE M.D. Performed By: #### C MP, PTT, CBC, PT, HS TROP, CK #### [address] Troponin I High Sensitivity 403 Off scale high 0-15 [facility] Comment on above: Result Comment: Crit ical Result : Called to and read back by: BEVERLY GOMEZ at: 03/14/2025 01:01:41 by:[id number] The Troponin units of report have been changed to meet the Chest Pain Accreditation requirement, element EC5.M1l2. Troponin units are changed from pg/ml to ng/L. Also, the decimal is removed and results are in whole numbers. PERFORMED BY: [place] [address] PATHOLOGIST MACHINE SPECIALIST ROZ MAE M.D. Performed By: #### C MP, PTT, CBC, PT, HS TROP, CK #### [facility] [address] Troponin I.cardiac [Mass/vol ume] in Serum or Plasma by Detection limit <= 0.01 ng/Ordered By: Magda Navarro on 03-14-2025 Troponin I.cardiac DL <= 0.01 ng/mL [Mass/Vol] Troponin I.cardiac [Mass/volume] in Serum or Plasma by Detection limit <= 0.01 ng/ Critically high [address] [place] [address] Comment on above: Critical Result : Ca lled to and read back by: MAGDA BANUELOS/3T at: 03/14/2025 12:01:03 by:[id number] Troponin units of report have been changed to meet the Chest Pain Accreditation requirement, element EC5.M1l2. Troponin units are changed from pg/ml to ng/L. Also, the decimal is removed and results are in whole numbers. Troponin I.cardiac [Mass/vol ume] in Serum or Plasma by Detection limit <= 0.01 ng/Ordered By: Loraine Mccallum on 03-14-2025 Troponin I.cardiac DL <= 0.01 ng/mL [Mass/Vol] Troponin I.cardiac [Mass/volume] in Serum or Plasma by Detection limit <= 0.01 ng/ Critically high [address] [place] [address] Comment on above: Critical Result : Ca lled to and read back by: BEVERLY GOMEZ at: 03/14/2025 01:01:41 by:[id number] Troponin units of report have been changed to meet the Chest Pain Accreditation requirement, element EC5.M1l2. Troponin units are changed from pg/ml to ng/L. Also, the decimal is removed and results are in whole numbers. WBC Auto (Bld) [#/Vol]Ordere d By: Magda Navarro on 03-14-2025 WBC (Bld) [#/Vol] Leukocytes [#/volume ] in Blood by Automated count 3.8-11.6 [facility] Appearance of UrineOrdered B y: Loraine Mccallum on 03-13-2025 Appearance (U) Urine appearance Clear [facility] B-Type Natriuretic Peptideon 03-13-2025 Natriuretic peptide B (Bld) [Mass/Vol] 28.0 pg/mL Normal 5-100 [facility] Comment on above: Result Comment: PERF ORMED BY: [place] [address] PATHOLOGIST MACHINE SPECIALIST ROZ MAE M.D. Performed By: #### C MP, PTT, CBC, PT, HS TROP, CK #### [place] [address] [place] Bacteria [Presence] in Urine by AutomatedOrdered By: Loraine Mccallum on 03-13-2025 Bacteria Auto Ql (U) Bacteria [Presence] in Urine by Automated None Seen [facility] Basic Metabolic Panelon Anion gap [Moles/Vol] 11.2 mmol/L Normal 6.0-15.0 [facility] Comment on above: Performed By: #### C MP, PTT, CBC, PT, HS TROP, CK #### [place] [address] [place] Calcium [Mass/Vol] 9.6 mg/dL Normal 8.6-10.3 [facility] Comment on above: Performed By: #### C MP, PTT, CBC, PT, HS TROP, CK #### [place] [address] [place] Chloride [Moles/Vol] 102 mmol/L Normal 98-107 [facility] Comment on above: Performed By: #### C MP, PTT, CBC, PT, HS TROP, CK #### [place] [address] [place] CO2 [Moles/Vol] 28.5 mmol/L Normal 21.0-31.0 [facility] Comment on above: Performed By: #### C MP, PTT, CBC, PT, HS TROP, CK #### [address] Creatinine [Mass/Vol] 0.74 mg/dL Normal 0.60-1.20 [facility] Comment on above: Performed By: #### C MP, PTT, CBC, PT, HS TROP, CK #### [address] Creatinine Clr Calc Pharmacy 46.20 Normal [facility] Comment on above: Result Comment: PERF ORMED BY: [place] [address] PATHOLOGIST MACHINE SPECIALIST ROZ MAE M.D. Performed By: #### C MP, PTT, CBC, PT, HS TROP, CK #### [address] GFR/1.73 sq M.predicted MDRD (S/P/Bld) [Vol rate/Area] mL/min/{1.73_m2} Normal [facility] Comment on above: Performed By: #### C MP, PTT, CBC, PT, HS TROP, CK #### [address] Glucose [Mass/Vol] 116 mg/dL High 70-100 [facility] Comment on above: Result Comment: [place] Glucose Reference Range is dependent on time and content of last meal. Glucose of more than 200 mg/dL in a nonstressed, ambulatory subject supports the diagnosis of Diabetes Mellitus. ADA recommended reference range Performed By: #### C MP, PTT, CBC, PT, HS TROP, CK #### [address] Potassium [Moles/Vol] 3.7 mmol/L Normal 3.5-5.1 [facility] Comment on above: Performed By: #### C MP, PTT, CBC, PT, HS TROP, CK #### [address] Sodium [Moles/Vol] 138 mmol/L Normal 136-145 [facility] Comment on above: Performed By: #### C MP, PTT, CBC, PT, HS TROP, CK #### [address] Urea nitrogen [Mass/Vol] 26 mg/dL High 7-25 [facility] Comment on above: Performed By: #### C MP, PTT, CBC, PT, HS TROP, CK #### [address] Basophils Auto (Bld) [#/Vol] Ordered By: Loraine Mccallum on 03-13-2025 Basophils (Bld) [#/Vol] Automated basophil count 0.0-0.2 [facility] Basophils/100 WBC Auto (Bld) Ordered By: Loraine Mccallum on 03-13-2025 Basophils/100 WBC (Bld) Automated basophil % . [facility] Bilirubin Test strip Ql (U)O rdered By: Loraine Mccallum on 03-13-2025 Bilirubin Ql (U) Bilirubin.total [Pre sence] in Urine by Test strip Negative [facility] BioFire Not Detectedon 03-13 BioFire Not Detected Not detected Normal Not Detecte [facility] Comment on above: Result Comment: This is a duplicate RP2.1 COVID (PCR) result to be used for statistical tracking purpose only. PERFORMED BY: [place] [address] PATHOLOGIST MACHINE SPECIALIST ROZ MAE M.D. Performed By: #### C MP, PTT, CBC, PT, HS TROP, CK #### [address] COVID-19 Detected/Not Detect edOrdered By: Loraine Mccallum on 03-13-2025 SARS-CoV-2 (COVID-19) RNA JAYRO+non-probe Ql (Nph) Not detected Not Detecte [facility] Comment on above: This is a duplicate RP2.1 COVID (PCR) result to be used for statistical tracking purpose only. CT head/brain wo conon 03-13 CT head/brain wo con [facility] [place] [address] [place] [address] CT Scan Report Signed Patient: Karuna Reynaga MR#: [id number] 289 : 1945 Acct:[id number] Age/Sex: 80 / F ADM Date: 03/13/25 Loc: ER Room: Type: PRE ER Attending Dr: Copies to: Loraine Mccallum MD Ordering Provider: Loraine Mccallum MD Date of Service: 03/13/25 CT/CT head/brain wo con: increased confusion from baseline CT head/brain wo con 03/13/2025 9:54 PM SIGNS AND SYMPTOMS: increased confusion from baseline TECHNIQUE:Multi-detector CT axial slices of the brain were obtained without IV contrast. CT was performed with one or more of the following dose reduction techniques: Automated exposure control, adjustment of the mA and/or kV according to patient size, or use of iterative reconstruction technique. COMPARISON: 04/15/2024 FINDINGS: There is no shift of the midline structures, acute intracranial bleeding, mass effects, or evidence of acute ischemia. Gliosis and encephalomalacia is noted in the bilateral frontal lobes similar to the prior exam. Periventricular white matter hypoattenuation is also noted along with mild age-related cortical atrophy. Atherosclerotic changes are noted in the intracranial segments of the internal carotid arteries. The ventricular system is normal in size. The brainstem and the cerebellum are unremarkable. The visualized intraorbital contents, the visualized paranasal sinuses, and the infratemporal soft tissues show no acute abnormality. The osseous structures in the skull base and the calvarium show no abnormality. CT/CT head/brain wo con IMPRESSION: No acute intracranial pathology. Chronic changes are redemonstrated similar to that seen on the prior exam. Impression dictated by: Jose Muñoz M.D. 03/13/2025 10:19 PM Dictation Location: [place] [address] Transcribed By: [facility] 03/13/252218 Dictated By: Jose Muñoz II, MD 03/13/252212 Signed By: 03/13/252218 Normal [facility] Calcium [Mass/volume] in Ser um or PlasmaOrdered By: Loraine Mccallum on 03-13-2025 Calcium [Mass/Vol] Calcium [Mass/volume ] in Serum or Plasma 8.6-10.3 [facility] Carbon dioxide, total [Moles /volume] in Serum or PlasmaOrdered By: Loraine Mccallum on 03-13-2025 CO2 [Moles/Vol] Carbon dioxide, tota l [Moles/volume] in Serum or Plasma 21.0-31.0 [facility] Chloride [Moles/volume] in S sun or PlasmaOrdered By: Loraine Mccallum on 03-13-2025 Chloride [Moles/Vol] Chloride [Moles/vol ume] in Serum or Plasma 98-107 [facility] Color Auto (U)Ordered By: Josh Mccallum on 03-13-2025 Color (U) Color of Urine by Auto [facility] Complete Blood Count Auto Di ffon 03-13-2025 Basophils (Bld) [#/Vol] 0.0 10*3/uL Normal 0.0-0.2 [facility] Comment on above: Result Comment: PERF ORMED BY: [place] [address] PATHOLOGIST MACHINE SPECIALIST ROZ MAE M.D. Performed By: #### C MP, PTT, CBC, PT, HS TROP, CK #### [facility] [address] Basophils/100 WBC (Bld) 0.7 % Normal . [facility] Comment on above: Performed By: #### C MP, PTT, CBC, PT, HS TROP, CK #### [facility] [address] [place] [address] [place] Eosinophils (Bld) [#/Vol] 0.1 10*3/uL Normal 0.0-0.45 [facility] Comment on above: Performed By: #### C MP, PTT, CBC, PT, HS TROP, CK #### [facility] [address] [place] [address] [place] Eosinophils/100 WBC (Bld) 1.1 % Normal . [facility] Comment on above: Performed By: #### C MP, PTT, CBC, PT, HS TROP, CK #### [address] Erythrocyte distribution width (RBC) [Ratio] 13.6 % Normal 11.9-15.3 [facility] Comment on above: Performed By: #### C MP, PTT, CBC, PT, HS TROP, CK #### [address] Hematocrit (Bld) [Volume fraction] 40.5 % Normal 34.0-46.4 [facility] Comment on above: Performed By: #### C MP, PTT, CBC, PT, HS TROP, CK #### [address] Hemoglobin (Bld) [Mass/Vol] 13.5 g/dL Normal 11.8-15.4 [facility] Comment on above: Performed By: #### C MP, PTT, CBC, PT, HS TROP, CK #### [address] Lymphocytes (Bld) [#/Vol] 1.3 10*3/uL Normal 1.00-4.8 [facility] Comment on above: Performed By: #### C MP, PTT, CBC, PT, HS TROP, CK #### [address] Lymphocytes/100 WBC (Bld) 23.1 % Normal . [facility] Comment on above: Performed By: #### C MP, PTT, CBC, PT, HS TROP, CK #### [address] MCH (RBC) [Entitic mass] 29.9 pg Normal 24.7-34.3 [facility] Comment on above: Performed By: #### C MP, PTT, CBC, PT, HS TROP, CK #### [address] MCV (RBC) [Entitic vol] 89.5 fL Normal 80-100 [facility] Comment on above: Performed By: #### C MP, PTT, CBC, PT, HS TROP, CK #### [facility] [address] Mean Corpuscular HGB Conc 33.5 g/dL Normal 32.0-35.0 [facility] Comment on above: Performed By: #### C MP, PTT, CBC, PT, HS TROP, CK #### [facility] [address] [place] [address] [place] Monocytes (Bld) [#/Vol] 0.5 10*3/uL Normal 0.0-0.8 [facility] Comment on above: Performed By: #### C MP, PTT, CBC, PT, HS TROP, CK #### [address] Monocytes/100 WBC (Bld) 22.62 % High 0.00-20.00 [facility] Comment on above: Result Comment: For adults in ED, MDW > 20.0 may be associated with a higher risk of sepsis during the first 12 hrs of hospital admission Performed By: #### C MP, PTT, CBC, PT, HS TROP, CK #### [address] Monocytes/100 WBC (Bld) 9.3 % Normal . [facility] Comment on above: Performed By: #### C MP, PTT, CBC, PT, HS TROP, CK #### [address] Neutrophils (Bld) [#/Vol] 3.7 10*3/uL Normal 1.8-7.7 [facility] Comment on above: Performed By: #### C MP, PTT, CBC, PT, HS TROP, CK #### [facility] [address] [place] [address] [place] Neutrophils/100 WBC (Bld) 65.8 % Normal . [facility] Comment on above: Performed By: #### C MP, PTT, CBC, PT, HS TROP, CK #### [address] NRBC% 0.1 /100{WBC} Normal 0-0.5 [facility] Comment on above: Performed By: #### C MP, PTT, CBC, PT, HS TROP, CK #### [address] Platelet mean volume (Bld) [Entitic vol] 8.2 fL Normal 6.3-10.7 [facility] Comment on above: Performed By: #### C MP, PTT, CBC, PT, HS TROP, CK #### [address] Platelets (Bld) [#/Vol] 206 10*3/uL Normal 150-450 [facility] Comment on above: Performed By: #### C MP, PTT, CBC, PT, HS TROP, CK #### [address] RBC (Bld) [#/Vol] 4.52 10*6/uL Normal 3.60-5.00 [facility] Comment on above: Performed By: #### C MP, PTT, CBC, PT, HS TROP, CK #### [address] WBC (Bld) [#/Vol] 5.6 10*3/uL Normal 3.8-11.6 [facility] Comment on above: Performed By: #### C MP, PTT, CBC, PT, HS TROP, CK #### [address] Creatinine [Mass/volume] in Serum or PlasmaOrdered By: Loraine Mccallum on 03-13-2025 Creatinine [Mass/Vol] Creatinine [Mass/v olume] in Serum or Plasma 0.60-1.20 [facility] Crystals [Presence] in Urine by AutomatedOrdered By: Loraine Mccallum on 03-13-2025 Crystals Auto Ql (U) Crystals [Presence] in Urine by Automated [facility] D-Dimer High Sensitivityon 0 03-13-2025 D-Dimer High Sensitivity <200 Normal 0-243 [facility] Comment on above: Result Comment: The reference range for D-dimer is <243 ng/mL D-dimer units. D-dimer results must be used in conjunction with a clinical pretest probability (PTP) assessment model for deep vein thrombosis (DVT) and pulmonary embolism (PE). Results <230 ng/mL d-dimer units can be used as a negative predictor in patients with low or moderate probability for DVT/PE. Results above the exclusion threshold of 230 ng/ml D-dimer units for DVT/PE may indicate the need for further diagnostic testing. D-Dimer can be increased in hospitalized patients due to co-morbid conditions. A hematocrit value greater than 55% may lead to inaccurate results in coagulation testing. Patients having hematocrit values >55% require a special collection tube for coagulation studies. Please contact the laboratory at [phone] for redraw instructions. PERFORMED BY: [place] [address] PATHOLOGIST MACHINE SPECIALIST ROZ MAE M.D. Performed By: #### D DIMER #### [address] Dipstick and Microscopicon 0 03-13-2025 Appearance (U) Clear Normal Clear [facility] Comment on above: Order Comment: Name Collection Type:: Clean-Voided Midstream Performed By: #### C UU, ADDONUAPLUS ####[address] Bacteria,Urine None Seen Normal None Seen [facility] Comment on above: Order Comment: Name Collection Type:: Clean-Voided Midstream Performed By: #### C UU, ADDONUAPLUS ####[address] Bilirubin,Urine Negative Normal Negative [facility] Comment on above: Order Comment: Name Collection Type:: Clean-Voided Midstream Performed By: #### C UU, ADDONUAPLUS ####[address] Color (U) Yellow Normal Yellow [facility] Comment on above: Order Comment: Name Collection Type:: Clean-Voided Midstream Performed By: #### C UU, ADDONUAPLUS ####[address] [place] [address] [facility] Glucose Ql (U) Normal Normal Normal [facility] Comment on above: Order Comment: Name Collection Type:: Clean-Voided Midstream Performed By: #### C UU, ADDONUAPLUS ####[address] [address] [facility] Hyaline Casts,Urine None Normal 0-8 [facility] Comment on above: Order Comment: Name Collection Type:: Clean-Voided Midstream Performed By: #### C UU, ADDONUAPLUS ####[address] [address] [facility] Ketones Ql (U) Negative Normal Negative [facility] Comment on above: Order Comment: Name Collection Type:: Clean-Voided Midstream Performed By: #### C UU, ADDONUAPLUS ####[address] [address] [facility] Leukocyte esterase Test strip Ql (U) Negative Normal Negative [facility] Comment on above: Order Comment: Name Collection Type:: Clean-Voided Midstream Performed By: #### C UU, ADDONUAPLUS ####[address] [address] [place] Mucus,Urine Rare Normal [facility] Comment on above: Order Comment: Name Collection Type:: Clean-Voided Midstream Result Comment: PERF ORMED BY: [facility] [address] [place] [id number] PATHOLOGIST MACHINE SPECIALIST ROZ MAE M.D. Performed By: #### C UU, ADDONUAPLUS ####[address] [address] [facility] Nitrite,Urine Negative Normal Negative [facility] Comment on above: Order Comment: Name Collection Type:: Clean-Voided Midstream Performed By: #### C UU, ADDONUAPLUS ####[address] [address] [facility] Occult Blood,Urine Trace High Negative [facility] Comment on above: Order Comment: Name Collection Type:: Clean-Voided Midstream Result Comment: PERF ORMED BY: [facility] [address] [place] [address] PATHOLOGIST MACHINE SPECIALIST ROZ MAE M.D. Performed By: #### C UU, ADDONUAPLUS ####[place] [id number] [facility] Othe Crystals,Urine 2+ Normal [facility] Comment on above: Order Comment: Name Collection Type:: Clean-Voided Midstream Performed By: #### C UU, ADDONUAPLUS ####[place] [id number] [facility] pH (U) 5.5 [pH] Normal 5.0-9.0 [facility] Comment on above: Order Comment: Name Collection Type:: Clean-Voided Midstream Performed By: #### C UU, ADDONUAPLUS ####[address] Protein (U) [Mass/Vol] 30 mg/dL High Negative Th e [facility] Comment on above: Order Comment: Name Collection Type:: Clean-Voided Midstream Performed By: #### C UU, ADDONUAPLUS ####[address] RBC,Urine 5-9 High 0-4 [facility] Comment on above: Order Comment: Name Collection Type:: Clean-Voided Midstream Performed By: #### C UU, ADDONUAPLUS ####[place] [id number] [facility] Specificy [place],Urine 1.032 High 1.001-1.03 0 [facility] Comment on above: Order Comment: Name Collection Type:: Clean-Voided Midstream Performed By: #### C UU, ADDONUAPLUS ####[address] Squamous Epithelial Cell,Urine 1-2 Normal 0-2 [facility] Comment on above: Order Comment: Name Collection Type:: Clean-Voided Midstream Performed By: #### C UU, ADDONUAPLUS ####[facility] [id number] [place] [id number] [facility] Urobilinogen,Urine Normal Normal Normal [facility] Comment on above: Order Comment: Name Collection Type:: Clean-Voided Midstream Performed By: #### C UU, ADDONUAPLUS ####[facility] [address] [place] [address] [facility] WBC,Urine 1-2 Normal 0-4 [facility] Comment on above: Order Comment: Name Collection Type:: Clean-Voided Midstream Performed By: #### C UU, ADDONUAPLUS ####[place] [id number] [place] [id number] [facility] ECG 12 lead ECGon 03-13-2025 ECG 12 lead ECG [facility] [place] [address] [place] [address] Electrocardiograph Report Signed Patient: Karuna Reynaga MR#: [id number] : 1945 Acct:[id number] Age/Sex: 80 / F ADM Date: 03/13/25 Loc: ER Room: Type: PRE ER Attending Dr: Ordering Provider: Ed Canales PA-C Date of Service: 03/13/2507/30/1715 ECG/ECG 12 lead ECG: Upper Respiratory Infection Copies to: Test Reason : Blood Pressure : 122/62 mmHG Vent. Rate : 86 BPM Atrial Rate : 86 BPM P-R Int : 158 ms QRS Dur : 82 ms QT Int : 358 ms P-R-T Axes : 57 53 48 degrees QTcB Int : 428 ms Normal sinus rhythm Confirmed by Loraine Mccallum MD ([id number]) on 03/13/2025 9:36:55 PM Referred By: Electronically Signed By: Loraine Mccallum MD Transcribed By: MUS Signed By Loraine Mccallum MD 07/30 Normal [facility] Eosinophils Auto (Bld) [#/Vo l]Ordered By: Loraine Mccallum on 03-13-2025 Eosinophils (Bld) [#/Vol] Automated eosinophil count 0.0-0.45 [facility] Eosinophils/100 WBC Auto (Bl d)Ordered By: Loraine Mccallum on 03-13-2025 Eosinophils/100 WBC (Bld) Automated eosinophil % . [facility] Epithelial cells.squamous [# /area] in Urine sediment by Automated countOrdered By: Loraine Mccallum on 03-13-2025 Epithelial cells.squamous Auto (Urine sed) [#/Area] Epithelial cells.squamous [#/area] in Urine sediment by Automated count 0-2 [facility] Erythrocyte distribution wid th Auto (RBC) [Ratio]Ordered By: Loraine Mccallum on 03-13-2025 Erythrocyte distribution width (RBC) [Ratio] Erythrocyte distribution width [Ratio] by Automated count 11.9-15.3 [facility] Erythrocytes [#/area] in Uri ne sediment by Automated countOrdered By: Loraine Mccallum on 03-13-2025 RBC Auto (Urine sed) [#/Area] Erythrocytes [#/area] in Urine sediment by Automated count High 0-4 [facility] Fibrin D-dimer [Presence] in Platelet poor plasma by Latex agglutinationOrdered By: Loraine Mccallum on 03-13-2025 Fibrin D-dimer LA Ql (PPP) Fibrin D-dimer [Presence] in Platelet poor plasma by Latex agglutination 0-243 [facility] Comment on above: The reference range for D-dimer is <243 ng/mL D-dimer units.D-dimer results must be used in conjunction with a clinicalpretest probability (PTP) assessment model for deep veinthrombosis (DVT) and pulmonary embolism (PE). Results <230ng/mL d-dimer units can be used as a negative predictor inpatients with low or moderate probability for DVT/PE.Results above the exclusion threshold of 230 ng/ml D-dimerunits for DVT/PE may indicate the need for furtherdiagnostic testing.D-Dimer can be increased in hospitalized patients due toco-morbid conditions.A hematocrit value greater than 55% may lead to inaccurate results in coagulation testing. Patients having hematocrit values >55% require a special collection tube for coagulation studies. Please contact the laboratory at [phone] for redraw instructions. Glucose [Mass/volume] in Ser um or PlasmaOrdered By: Loraine Mccallum on 03-13-2025 Glucose [Mass/Vol] Glucose [Mass/volume ] in Serum or Plasma High 70-100 [facility] Comment on above: ADA recommended refe rence rangeRandom Glucose Reference Range is dependent on time and content of last meal. Glucose of more than 200 mg/dL in a nonstressed, ambulatory subject supports the diagnosis of Diabetes Mellitus. Glucose [Mass/volume] in Uri ne by Test stripOrdered By: Loraine Mccallum on 03-13-2025 Glucose Test strip (U) [Mass/Vol] Glucose [Mass/volume] in Urine by Test strip Normal [facility] Hematocrit Auto (Bld) [Volum e fraction]Ordered By: Loraine Mccallum on 03-13-2025 Hematocrit (Bld) [Volume fraction] Hematocrit [Volume Fraction] of Blood by Automated count 34.0-46.4 [facility] Hemoglobin Test strip Ql (U) Ordered By: Loraine Mccallum on 03-13-2025 Hemoglobin Ql (U) Hemoglobin [Presence ] in Urine by Test strip High Negative [facility] Hemoglobin [Mass/volume] in BloodOrdered By: Loraine Mccallum on 03-13-2025 Hemoglobin (Bld) [Mass/Vol] Hemoglobin [Mass/volume] in Blood 11.8-15.4 [facility] Hyaline casts [#/area] in Ur ine sediment by Automated countOrdered By: Loraine Mccallum on 03-13-2025 Hyaline casts Auto (Urine sed) [#/Area] Hyaline casts [#/area] in Urine sediment by Automated count 0-8 [facility] Ketones Test strip Ql (U)Ord ered By: Loraine Mccallum on 03-13-2025 Ketones Ql (U) Ketones [Presence] i n Urine by Test strip Negative [facility] Leukocyte esterase [Presence ] in Urine by Test stripOrdered By: Loraine Mccallum on 03-13-2025 Leukocyte esterase Test strip Ql (U) Leukocyte esterase [Presence] in Urine by Test strip Negative [facility] Leukocytes [#/area] in Urine sediment by Automated countOrdered By: Loraine Mccallum on 03-13-2025 WBC Auto (Urine sed) [#/Area] Leukocytes [#/area] in Urine sediment by Automated count 0-4 [facility] Leukocytes [#/volume] correc rob for nucleated erythrocytes in Blood by Automated counOrdered By: Loraine Mccallum on 03-13-2025 WBC corrected for nucl RBC Auto (Bld) [#/Vol] Leukocytes [#/volume] corrected for nucleated erythrocytes in Blood by Automated coun 3.8-11.6 [facility] Lymphocytes Auto (Bld) [#/Vo l]Ordered By: Loraine Mccallum on 03-13-2025 Lymphocytes (Bld) [#/Vol] Lymphocytes [#/volume] in Blood by Automated count 1.00-4.8 [facility] Lymphocytes/100 WBC Auto (Bl d)Ordered By: Loraine Mccallum on 03-13-2025 Lymphocytes/100 WBC (Bld) Lymphocytes/100 leukocytes in Blood by Automated count . [facility] MCH Auto (RBC) [Entitic mass ]Ordered By: Loraine Mccallum on 03-13-2025 MCH (RBC) [Entitic mass] MCH [Entitic mass] by Automated count 24.7-34.3 [facility] MCHC Auto (RBC) [Mass/Vol]Or dered By: Loraine Mccallum on 03-13-2025 MCHC (RBC) [Mass/Vol] MCHC [Mass/volume] by Automated count 32.0-35.0 [facility] MCV Auto (RBC) [Entitic vol] Ordered By: Loraine Mccallum on 03-13-2025 MCV (RBC) [Entitic vol] MCV [Entitic volume] by Automated count 80-100 [facility] Monocyte distribution width [Entitic volume] in Blood by AutomatedOrdered By: Loraine Mccallum on 03-13-2025 Monocyte distribution width Auto (Bld) [Entitic vol] Monocyte distribution width [Entitic volume] in Blood by Automated High 0.00-20.00 [facility] Comment on above: For adults in ED, MD W > 20.0 may be associated with a higher risk of sepsis during the first 12 hrs of hospital admission Monocytes Auto (Bld) [#/Vol] Ordered By: Loraine Mccallum on 03-13-2025 Monocytes (Bld) [#/Vol] Automated blood monocyte count 0.0-0.8 [facility] Monocytes/100 WBC Auto (Bld) Ordered By: Loraine Mccallum on 03-13-2025 Monocytes/100 WBC (Bld) Automated monocyte % . [facility] Mucus [Presence] in Urine by AutomatedOrdered By: Loraine Mccallum on 03-13-2025 Mucus Auto Ql (U) Mucus [Presence] in Urine by Automated [facility] Natriuretic peptide B [Mass/ Vol]Ordered By: Loraine Mccallum on 03-13-2025 Natriuretic peptide B (Bld) [Mass/Vol] BNP ser/plas 5-100 [facility] Neutrophils Auto (Bld) [#/Vo l]Ordered By: Loraine Mccallum on 03-13-2025 Neutrophils (Bld) [#/Vol] Neutrophils [#/volume] in Blood by Automated count 1.8-7.7 [facility] Neutrophils/100 WBC Auto (Bl d)Ordered By: Loraine Mccallum on 03-13-2025 Neutrophils/100 WBC (Bld) Automated neutrophil % . [facility] Nitrite Test strip Ql (U)Ord ered By: Loraine Mccallum on 03-13-2025 Nitrite Ql (U) Nitrite [Presence] i n Urine by Test strip Negative [facility] No Panel InformationOrdered By: Loraine Mccallum on 03-13-2025 Estimated GFR (CKD-EPI) > 60.0 mL/Min [facility] Creatinine Clearance (Chem 46.20 [facility] Nucleated erythrocytes [Pres ence] in Blood by Automated countOrdered By: Loraine Mccallum on 03-13-2025 Nucleated RBC Auto Ql (Bld) Nucleated erythrocytes [Presence] in Blood by Automated count 0-0.5 [facility] Platelet mean volume Auto (B ld) [Entitic vol]Ordered By: Loraine Mccallum on 03-13-2025 Platelet mean volume (Bld) [Entitic vol] Platelet mean volume [Entitic volume] in Blood by Automated count 6.3-10.7 [facility] Platelets Auto (Bld) [#/Vol] Ordered By: Loraine Mccallum on 03-13-2025 Platelets (Bld) [#/Vol] Platelets [#/volume] in Blood by Automated count 150-450 [facility] Potassium [Moles/volume] in Serum or PlasmaOrdered By: Loraine Mccallum on 03-13-2025 Potassium [Moles/Vol] Potassium [Moles/v olume] in Serum or Plasma 3.5-5.1 [facility] Protein Test strip (U) [Mass /Vol]Ordered By: Loraine Mccallum on 03-13-2025 Protein (U) [Mass/Vol] Protein [Mass/vol ume] in Urine by Test strip High Negative [facility] RBC Auto (Bld) [#/Vol]Ordere d By: Loraine Mccallum on 03-13-2025 RBC (Bld) [#/Vol] Erythrocytes [#/volu me] in Blood by Automated count 3.60-5.00 [facility] Respiratory (Upper) Panel, P CRon 03-13-2025 Respiratory (Upper) Panel, PCR Adenovirus Not detected Bordetella parapertussis Not detected Chlamydia pneumoniae Not detected Coronavirus 229E Not detected Coronavirus HKU1 Not detected Coronavirus NL63 Not detected Coronavirus OC43 Not detected Influenza A Not detected Influenza B Not detected Human Metapneumovirus Detected Mycoplasma pneumoniae Not detected Parainfluenza Virus 1 Not detected Parainfluenza Virus 2 Not detected Parainfluenza Virus 3 Not detected Parainfluenza Virus 4 Not detected Bordetella pertussis-ptxP Not detected Human Rhino/Enterovirus Not detected Resp. Syncytial Virus Not detected COVID-19 Detected/Not Detected Not detected Blank Space -- FLUA TEST INCLUDES Influenza A tests for the following clinically FLUA TEST INCLUDES significant subtypes: FLUA TEST INCLUDES - Influenza A FLUA TEST INCLUDES - Influenza A H1 FLUA TEST INCLUDES - Influenza A H1 2009 FLUA TEST INCLUDES - Influenza A H3 Blank Space -- PERFORMED BY: [facility] [address] [facility] [place] [address] PATHOLOGIST MACHINE SPECIALIST ROZ MAE M.D. Normal [facility] Comment on above: Performed By: #### C MP, PTT, CBC, PT, HS TROP, CK #### [facility] [address] Respiratory pathogens DNA an d RNA panel - Nasopharynx by JAYRO with non-probe detectionOrdered By: Loraine Mccallum on 03-13-2025 Respiratory pathogens DNA and RNA panel JAYRO+non-probe (Nph) Respiratory pathogens DNA and RNA panel - Nasopharynx by JAYRO with non-probe detection [facility] Serum or plasma anion gap de terminationOrdered By: Loraine Mccallum on 03-13-2025 Anion gap [Moles/Vol] Serum or plasma an ion gap determination 6.0-15.0 [facility] Sodium [Moles/volume] in Ser um or PlasmaOrdered By: Loraine Mccallum on 03-13-2025 Sodium [Moles/Vol] Sodium [Moles/volume ] in Serum or Plasma 136-145 [facility] Specific gravity Test strip (U) [Rel density]Ordered By: Loraine Mccallum on 03-13-2025 Specific gravity (U) [Rel density] Specific gravity of Urine by Test strip High 1.001-1.03 0 [facility] Troponin I High Sensitivityo n 03-13-2025 Troponin I High Sensitivity 437 Off scale high 0-15 [facility] Comment on above: Result Comment: Crit ical Result : Called to and read back by: ULI LOPES at: 03/13/2025 23:56:50 by:[id number] The Troponin units of report have been changed to meet the Chest Pain Accreditation requirement, element EC5.M1l2. Troponin units are changed from pg/ml to ng/L. Also, the decimal is removed and results are in whole numbers. PERFORMED BY: [address] [place] [address] PATHOLOGIST MACHINE SPECIALIST ROZ MAE M.D. Performed By: #### C MP, PTT, CBC, PT, HS TROP, CK #### [address] Urea nitrogen [Mass/volume] in Serum or PlasmaOrdered By: Loraine Mccallum on 03-13-2025 Urea nitrogen [Mass/Vol] Urea nitrogen [Mass/volume] in Serum or Plasma High 7-25 [facility] Urine Cultureon 03-13-2025 Bacteria identified Cx Nom (U) >100,000 colonies/ml mixed bacterial skin contaminants 2 Days PERFORMED BY: [place] [address] PATHOLOGIST MACHINE SPECIALIST ROZ MAE M.D. Normal [facility] Comment on above: Performed By: #### C UU, ADDONUAPLUS ####[facility] [id number] Urobilinogen Test strip (U) [Mass/Vol]Ordered By: Loraine Mccallum on 03-13-2025 Urobilinogen (U) [Mass/Vol] Urobilinogen [Mass/volume] in Urine by Test strip Normal [facility] WBC Auto (Bld) [#/Vol]Ordere d By: Loraine Mccallum on 03-13-2025 WBC (Bld) [#/Vol] Leukocytes [#/volume ] in Blood by Automated count 3.8-11.6 [facility] X-ray reportOrdered By: Jose Muñoz on 03-13-2025 Study report [place] [address] XRay Report Signed Patient: Karuna Reynaga MR#: [id number] : 1945 Acct:[id number] Age/Sex: 80 / F ADM Date: 5 Loc: ER Room: Type: PRE ER Attending Dr: Copies to: Ed Canales PA-C [facility], PROVIDER~ Ordering Provider: Ed Canales PA-C Date of Service: 03/13/25 XR/XR chest 2V*: Upper Respiratory Infection XR chest 2V* 03/13/2025 5:16 PM SIGNS AND SYMPTOMS: Cough, fever PROTOCOL: Frontal and lateral radiograph of the chest COMPARISON: 04/13/2024 FINDINGS: The trachea is midline. The heart and mediastinal structures are within normal limits. Chronic-appearing interstitial changes are noted. This is similar to the prior exam. The lung parenchyma is clear, otherwise. The bony thorax is intact. There is evidence of prior hardware fixation of the left humerus. Degenerative changes are noted throughout the thoracic spine. XR/XR chest 2V* IMPRESSION: No acute cardiopulmonary pathology. Impression dictated by: Jose Muñoz M.D. 03/13/2025 7:19 PM Dictation Location: RADIO--17 Transcribed By: BERTA 03/13/251918 Dictated By: Jose Muñoz II, MD 03/13/251917 Signed By: 03/13/251918 [facility] Work Phone: XR chest 2V*on 03-13-2025 XR chest 2V* [facility] [place] [address] [place] [address] XRay Report Signed Patient: Karuna Reynaga MR#: [id number] : 1945 Acct:[id number] Age/Sex: 80 / F ADM Date: 03/13/25 Loc: ER Room: Type: PRE ER Attending Dr: Copies to: Ed Canales PA-C [facility], PROVIDER Ordering Provider: Ed Canales PA-C Date of Service: 03/13/25 XR/XR chest 2V*: Upper Respiratory Infection XR chest 2V* 03/13/2025 5:16 PM SIGNS AND SYMPTOMS: Cough, fever PROTOCOL: Frontal and lateral radiograph of the chest COMPARISON: 04/13/2024 FINDINGS: The trachea is midline. The heart and mediastinal structures are within normal limits. Chronic- appearing interstitial changes are noted. This is similar to the prior exam. The lung parenchyma is clear, otherwise. The bony thorax is intact. There is evidence of prior hardware fixation of the left humerus. Degenerative changes are noted throughout the thoracic spine. XR/XR chest 2V* IMPRESSION: No acute cardiopulmonary pathology. Impression dictated by: Jose Muñoz M.D. 03/13/2025 7:19 PM Dictation Location: [facility] Transcribed By: BERTA 03/13/251918 Dictated By: Jose Muñoz II, MD 03/13/251917 Signed By: 03/13/251918 Normal [facility] pH Test strip (U)Ordered By: Loraine Mccallum on 03-13-2025 pH (U) pH of Urine by Test strip 5.0-9.0 [facility] Urine Cultureon 02-25-2025 Bacteria identified Cx Nom (U) 10,000 colonies/ml mixed bacterial skin contaminants 2 Days PERFORMED BY: [place] [address] PATHOLOGIST MACHINE SPECIALIST ROZ MAE M.D. Normal [facility] Comment on above: Performed By: #### C UU ####[place] [id number] [address] Urine cultureOrdered By: Shahzad Alvarez on 02-25-2025 Bacteria identified Cx Nom (U) Urine culture [facility] Hemoglobin a1c with eagon Glucose [Mass/Vol] 126 mg/dL [facility] HbA1c (Bld) [Mass fraction] 6 % High 4.3 - 5.6 % [facility] Comment on above: Increased risk for d iabetes: 5.7 - 6.4 diabetes: >6.4 glycemic control for adults with diabetes: <7.0 Interpretation and review of laboratory results Abnormal [facility] A1C with Estimated Average G luon 02-06-2025 Glucose [Mass/Vol] 126 mg/dL Normal [facility] Comment on above: Result Comment: PERF ORMED BY: [place] [address] PATHOLOGIST MACHINE SPECIALIST ROZ MAE M.D. Performed By: #### C MP, PTT, CBC, PT, HS TROP, CK #### [place] [id number] [facility] HbA1c (Bld) [Mass fraction] 6.0 % High 4.3-5.6 [facility] Comment on above: Result Comment: Incr eased risk for diabetes: 5.7 - 6.4 diabetes: >6.4 glycemic control for adults with diabetes: <7.0 Performed By: #### C MP, PTT, CBC, PT, HS TROP, CK #### [address] Alanine aminotransferase [En zymatic activity/volume] in Serum or PlasmaOrdered By: Jamal Alvarez on 02-06-2025 ALT [Catalytic activity/Vol] Alanine aminotransferase [Enzymatic activity/volume] in Serum or Plasma 7-52 [facility] Albumin [Mass/volume] in Ser um or Plasma by Bromocresol green (BCG) dye binding methoOrdered By: Jamal Alvarez on 02-06-2025 Albumin BCG dye [Mass/Vol] Albumin [Mass/volume] in Serum or Plasma by Bromocresol green (BCG) dye binding metho 3.5-5.7 [facility] Alkaline phosphatase [Enzyma tic activity/volume] in Serum or PlasmaOrdered By: Jamal Alvarez on 02-06-2025 ALP [Catalytic activity/Vol] Alkaline phosphatase [Enzymatic activity/volume] in Serum or Plasma 34-104 [facility] Aspartate aminotransferase [ Enzymatic activity/volume] in Serum or PlasmaOrdered By: Jamal Alvarez on 02-06-2025 AST [Catalytic activity/Vol] Aspartate aminotransferase [Enzymatic activity/volume] in Serum or Plasma 13-39 [facility] Basophils Auto (Bld) [#/Vol] Ordered By: Jamal Alvarez on 02-06-2025 Basophils (Bld) [#/Vol] Automated basophil count 0.0-0.2 [facility] Basophils/100 WBC Auto (Bld) Ordered By: Jamal Alvarez on 02-06-2025 Basophils/100 WBC (Bld) Automated basophil % . [facility] Bilirubin.total [Mass/volume ] in Serum or PlasmaOrdered By: Jamal Alvarez on 02-06-2025 Bilirubin [Mass/Vol] Bilirubin.total [Mass/volume] in Serum or Plasma 0.3-1.0 [facility] Blood estimated average gluc ose determination by estimation from glycated hemoglobinOrdered By: JOSE LUIS LOCKHART on 02-06-2025 Average glucose Estimated from glycated hemoglobin (Bld) [Mass/Vol] Glucose mean value [Mass/volume] in Blood Estimated from glycated hemoglobin [facility] CBC W Auto Differential pane l (Bld)on 02-06-2025 Basophils (Bld) [#/Vol] 0.1 10*3/uL 0.0 - 0.2 10*3/uL [facility] Basophils/100 WBC Manual cnt (Syn fld) 0.9 % . [facility] Eosinophils (Bld) [#/Vol] 0.3 10*3/uL 0.0 - 0.45 10*3/uL [facility] Eosinophils/100 WBC Manual cnt (Syn fld) 4.4 % . [facility] Erythrocyte distribution width (RBC) [Ratio] 13.2 % 11.9 - 15.3 % [facility] Hematocrit (Bld) [Volume fraction] 40.2 % 34.0 - 46.4 % [facility] Hemoglobin (Bld) [Mass/Vol] 13.4 g/dL 11.8 - 15.4 g/dL [facility] Lymphocytes (Bld) [#/Vol] 1.8 10*3/uL 1.00 - 4.8 10*3/uL [facility] Lymphocytes/100 WBC Manual cnt (Syn fld) 29.1 % . [facility] MCH (RBC) [Entitic mass] 29.9 pg 24.7 - 34.3 pg [facility] MCHC (RBC) [Mass/Vol] 33.4 g/dL 32.0 - 35.0 g/dL [facility] MCV (RBC) [Entitic vol] 89.7 fL 80 - 100 fL [facility] Monocytes (Bld) [#/Vol] 0.3 10*3/uL 0.0 - 0.8 10*3/uL [facility] Monocytes+Macrophages/ 100 WBC Manual cnt (Syn fld) 4.9 % . [facility] Neutrophils (Bld) [#/Vol] 3.8 10*3/uL 1.8 - 7.7 10*3/uL [facility] Neutrophils/100 WBC Manual cnt (Syn fld) 60.7 % . [facility] NRBC 0.1 /100{WBC} 0 - 0.5 /100{WBC} [facility] Platelet mean volume (Bld) [Entitic vol] 8.6 fL 6.3 - 10.7 fL [facility] Platelets (Bld) [#/Vol] 264 10*3/uL 150 - 450 10*3/uL [facility] RBC LM.HPF (Urine sed) [#/Area] 4.48 10*6/uL 3.60 - 5.00 10*6/uL [facility] WBC (Bld) [#/Vol] 6.3 10*3/uL 3.8 - 11.6 10*3/uL [facility] WBC LM.HPF (Urine sed) [#/Area] 6.3 10*3/uL 3.8 - 11.6 10*3/uL [facility] Calcium [Mass/volume] in Ser um or PlasmaOrdered By: Jamal Alvarez on 02-06-2025 Calcium [Mass/Vol] Calcium [Mass/volume ] in Serum or Plasma 8.6-10.3 [facility] Carbon dioxide, total [Moles /volume] in Serum or PlasmaOrdered By: Jamal Alvarez on 02-06-2025 CO2 [Moles/Vol] Carbon dioxide, tota l [Moles/volume] in Serum or Plasma 21.0-31.0 [facility] Chloride [Moles/volume] in S sun or PlasmaOrdered By: Jamal Alvarez on 02-06-2025 Chloride [Moles/Vol] Chloride [Moles/vol ume] in Serum or Plasma 98-107 [facility] Cholesterol [Mass/volume] in Serum or PlasmaOrdered By: Jamal Alvarez on 02-06-2025 Cholesterol [Mass/Vol] Cholesterol [Mass /volume] in Serum or Plasma 140-200 [facility] Comment on above: Chol less than 200 m g/dl low riskChol 201-239 mg/dl borderline riskChol 240 mg/dl and greater high risk Cholesterol in HDL [Mass/vol ume] in Serum or PlasmaOrdered By: Jamal Alvarez on 02-06-2025 Cholesterol in HDL [Mass/Vol] Serum or plasma high density lipoprotein (HDL) cholesterol measurement 23-92 [facility] Comment on above: HDL CHOL ATP-III CLA SSIFICATION Cardiovascular RiskHDL > or equal to 60 mg/dL LOWHDL < 40 mg/dL HIGH Cholesterol in LDL Calc [Mas s/Vol]Ordered By: Jamal Alvarez on 02-06-2025 Cholesterol in LDL [Mass/Vol] Cholesterol in LDL [Mass/volume] in Serum or Plasma by calculation 0-100 [facility] Comment on above: LDL ATP III CLASSIFI CATIONLDL less than 100 mg/dL OptimalLDL 100-129 mg/dL Near or above optimalLDL 130-159 mg/dL Borderline highLDL 160-189 mg/dL HighLDL greater than 189 mg/dL Very high Cholesterol in VLDL Calc [Ma ss/Vol]Ordered By: Jamal Alvarez on 02-06-2025 Cholesterol in VLDL [Mass/Vol] Cholesterol in VLDL [Mass/volume] in Serum or Plasma by calculation [facility] Complete Blood Count Auto Di ffon 02-06-2025 Basophils (Bld) [#/Vol] 0.1 10*3/uL Normal 0.0-0.2 [facility] Comment on above: Result Comment: PERF ORMED BY: [facility] [address] [place] [address] PATHOLOGIST MACHINE SPECIALIST ROZ MAE M.D. Performed By: #### U RMACRERAT, LIPID, CBC, CMP ####[address] Basophils/100 WBC (Bld) 0.9 % Normal . [facility] Comment on above: Performed By: #### U RMACRERAT, LIPID, CBC, CMP ####[address] Eosinophils (Bld) [#/Vol] 0.3 10*3/uL Normal 0.0-0.45 [facility] Comment on above: Performed By: #### U RMACRERAT, LIPID, CBC, CMP ####[address] Eosinophils/100 WBC (Bld) 4.4 % Normal . [facility] Comment on above: Performed By: #### U RMACRERAT, LIPID, CBC, CMP ####[address] Erythrocyte distribution width (RBC) [Ratio] 13.2 % Normal 11.9-15.3 [facility] Comment on above: Performed By: #### U RMACRERAT, LIPID, CBC, CMP ####[place] [id number] [facility] Hematocrit (Bld) [Volume fraction] 40.2 % Normal 34.0-46.4 [facility] Comment on above: Performed By: #### U RMACRERAT, LIPID, CBC, CMP ####[address] Hemoglobin (Bld) [Mass/Vol] 13.4 g/dL Normal 11.8-15.4 [facility] Comment on above: Performed By: #### U RMACRERAT, LIPID, CBC, CMP ####[address] Lymphocytes (Bld) [#/Vol] 1.8 10*3/uL Normal 1.00-4.8 [facility] Comment on above: Performed By: #### U RMACRERAT, LIPID, CBC, CMP ####[address] Lymphocytes/100 WBC (Bld) 29.1 % Normal . [facility] Comment on above: Performed By: #### U RMACRERAT, LIPID, CBC, CMP ####[address] MCH (RBC) [Entitic mass] 29.9 pg Normal 24.7-34.3 [facility] Comment on above: Performed By: #### U RMACRERAT, LIPID, CBC, CMP ####[address] MCV (RBC) [Entitic vol] 89.7 fL Normal 80-100 [facility] Comment on above: Performed By: #### U RMACRERAT, LIPID, CBC, CMP ####[address] Mean Corpuscular HGB Conc 33.4 g/dL Normal 32.0-35.0 [facility] Comment on above: Performed By: #### U RMACRERAT, LIPID, CBC, CMP ####[address] Monocytes (Bld) [#/Vol] 0.3 10*3/uL Normal 0.0-0.8 [facility] Comment on above: Performed By: #### U RMACRERAT, LIPID, CBC, CMP ####[address] Monocytes/100 WBC (Bld) 4.9 % Normal . [facility] Comment on above: Performed By: #### U RMACRERAT, LIPID, CBC, CMP ####[address] Neutrophils (Bld) [#/Vol] 3.8 10*3/uL Normal 1.8-7.7 [facility] Comment on above: Performed By: #### U RMACRERAT, LIPID, CBC, CMP ####[address] Neutrophils/100 WBC (Bld) 60.7 % Normal . [facility] Comment on above: Performed By: #### U RMACRERAT, LIPID, CBC, CMP ####[address] NRBC% 0.1 /100{WBC} Normal 0-0.5 [facility] Comment on above: Performed By: #### U RMACRERAT, LIPID, CBC, CMP ####[address] Platelet mean volume (Bld) [Entitic vol] 8.6 fL Normal 6.3-10.7 [facility] Comment on above: Performed By: #### U RMACRERAT, LIPID, CBC, CMP ####[address] Platelets (Bld) [#/Vol] 264 10*3/uL Normal 150-450 [facility] Comment on above: Performed By: #### U RMACRERAT, LIPID, CBC, CMP ####[address] RBC (Bld) [#/Vol] 4.48 10*6/uL Normal 3.60-5.00 [facility] Comment on above: Performed By: #### U RMACRERAT, LIPID, CBC, CMP ####[address] WBC (Bld) [#/Vol] 6.3 10*3/uL Normal 3.8-11.6 [facility] Comment on above: Performed By: #### U RMACRERAT, LIPID, CBC, CMP ####[address] Comprehensive Metabolic Pane geovanny 02-06-2025 Albumin [Mass/Vol] 4.2 g/dL Normal 3.5-5.7 [facility] Comment on above: Performed By: #### U RMACRERAT, LIPID, CBC, CMP ####[address] Albumin/Globulin [Mass ratio] 1.4 {ratio} Normal [facility] Comment on above: Performed By: #### U RMACRERAT, LIPID, CBC, CMP ####[address] ALP [Catalytic activity/Vol] 64 U/L Normal 34-104 [facility] Comment on above: Performed By: #### U RMACRERAT, LIPID, CBC, CMP ####[address] ALT [Catalytic activity/Vol] 15 U/L Normal 7-52 [facility] Comment on above: Performed By: #### U RMACRERAT, LIPID, CBC, CMP ####[address] Anion gap [Moles/Vol] 10.9 mmol/L Normal 6.0-15.0 [facility] Comment on above: Performed By: #### U RMACRERAT, LIPID, CBC, CMP ####[address] AST [Catalytic activity/Vol] 16 U/L Normal 13-39 [facility] Comment on above: Performed By: #### U RMACRERAT, LIPID, CBC, CMP ####[address] Bilirubin [Mass/Vol] 0.4 mg/dL Normal 0.3-1.0 [facility] Comment on above: Performed By: #### U RMACRERAT, LIPID, CBC, CMP ####[address] Calcium [Mass/Vol] 9.3 mg/dL Normal 8.6-10.3 [facility] Comment on above: Performed By: #### U RMACRERAT, LIPID, CBC, CMP ####[address] Chloride [Moles/Vol] 103 mmol/L Normal 98-107 [facility] Comment on above: Performed By: #### U RMACRERAT, LIPID, CBC, CMP ####[address] CO2 [Moles/Vol] 30.4 mmol/L Normal 21.0-31.0 [facility] Comment on above: Performed By: #### U RMACRERAT, LIPID, CBC, CMP ####[address] Creatinine [Mass/Vol] 0.67 mg/dL Normal 0.60-1.20 [facility] Comment on above: Performed By: #### U RMACRERAT, LIPID, CBC, CMP ####[address] GFR/1.73 sq M.predicted MDRD (S/P/Bld) [Vol rate/Area] mL/min/{1.73_m2} Normal [facility] Comment on above: Performed By: #### U RMACRERAT, LIPID, CBC, CMP ####[address] Globulin (S) [Mass/Vol] 2.9 g/dL Normal [facility] Comment on above: Performed By: #### U RMACRERAT, LIPID, CBC, CMP ####[address] Glucose [Mass/Vol] 96 mg/dL Normal 70-100 [facility] Comment on above: Result Comment: [facility] Glucose Reference Range is dependent on time and content of last meal. Glucose of more than 200 mg/dL in a nonstressed, ambulatory subject supports the diagnosis of Diabetes Mellitus. ADA recommended reference range Performed By: #### U RMACRERAT, LIPID, CBC, CMP ####[address] Potassium [Moles/Vol] 4.3 mmol/L Normal 3.5-5.1 [facility] Comment on above: Performed By: #### U RMACRERAT, LIPID, CBC, CMP ####[address] Protein [Mass/Vol] 7.1 g/dL Normal 6.4-8.9 [facility] Comment on above: Performed By: #### U RMACRERAT, LIPID, CBC, CMP ####[address] Sodium [Moles/Vol] 140 mmol/L Normal 136-145 [facility] Comment on above: Performed By: #### U RMACRERAT, LIPID, CBC, CMP ####[address] Urea nitrogen [Mass/Vol] 17 mg/dL Normal 7-25 [facility] Comment on above: Performed By: #### U RMACRERAT, LIPID, CBC, CMP ####[address] Comprehensive metabolic pane geovanny 02-06-2025 Albumin [Mass/Vol] 4.2 g/dL 3.5 - 5.7 g/dL [facility] Albumin/Globulin [Mass ratio] 1.4 {ratio} [facility] ALP [Catalytic activity/Vol] 64 U/L 34 - 104 U/L [facility] ALT [Catalytic activity/Vol] 15 U/L 7 - 52 U/L [facility] Anion gap [Moles/Vol] 10.9 mmol/L 6.0 - 15.0 meq/L [facility] AST [Catalytic activity/Vol] 16 U/L 13 - 39 U/L [facility] Bilirubin [Mass/Vol] 0.4 mg/dL 0.3 - 1 .0 mg/dL [facility] Calcium [Mass/Vol] 9.3 mg/dL 8.6 - 10. 3 mg/dL [facility] Chloride [Moles/Vol] 103 mmol/L 98 - 10 7 mmol/L [facility] CO2 [Moles/Vol] 30.4 mmol/L 21.0 - 31.0 mmol/L [facility] Creatinine (U) [Mass/Vol] 0.67 mg/dL 0.60 - 1.20 mg/dL [facility] ESTIMATED GFR mL/Min [facility] Globulin (S) [Mass/Vol] 2.9 g/dL [facility] Glucose [Mass/Vol] 96 mg/dL 70 - 100 mg/dL [facility] Comment on above: Random Glucose Refer ence Range is dependent on time and content of last meal. Glucose of more than 200 mg/dL in a nonstressed, ambulatory subject supports the diagnosis of Diabetes Mellitus. ADA recommended reference range Potassium [Moles/Vol] 4.3 mmol/L 3.5 - 5.1 mmol/L [facility] Protein [Mass/Vol] 7.1 g/dL 6.4 - 8.9 g/dL [facility] Sodium [Moles/Vol] 140 mmol/L 136 - 145 mmol/L [facility] Urea nitrogen [Mass/Vol] 17 mg/dL 7 - 25 mg/dL [facility] Creatinine [Mass/volume] in Serum or PlasmaOrdered By: Jamal Alvarez on 02-06-2025 Creatinine [Mass/Vol] Creatinine [Mass/v olume] in Serum or Plasma 0.60-1.20 [facility] Creatinine [Mass/volume] in UrineOrdered By: Jamal Alvarez on 02-06-2025 Creatinine (U) [Mass/Vol] Creatinine [Mass/volume] in Urine [facility] Comment on above: No reference range e stablished Eosinophils Auto (Bld) [#/Vo l]Ordered By: Jamal Alvarez on 02-06-2025 Eosinophils (Bld) [#/Vol] Automated eosinophil count 0.0-0.45 [facility] Eosinophils/100 WBC Auto (Bl d)Ordered By: Jamal Alvarez on 02-06-2025 Eosinophils/100 WBC (Bld) Automated eosinophil % . [facility] Erythrocyte distribution wid th Auto (RBC) [Ratio]Ordered By: Jamal Alvarez on 02-06-2025 Erythrocyte distribution width (RBC) [Ratio] Erythrocyte distribution width [Ratio] by Automated count 11.9-15.3 [facility] Free T4 (Free Thyroxine)on 0 02-06-2025 Free T4 [Mass/Vol] 0.84 ng/dL Normal 0.61-1.12 [facility] Comment on above: Performed By: #### T 4F, TSH3 ####[facility] [id number] [place] [id number] [facility] Globulin Calc (S) [Mass/Vol] Ordered By: Jamal Alvarez on 02-06-2025 Globulin (S) [Mass/Vol] Serum globulin measurement by calculation (mass/volume) [facility] Glucose [Mass/volume] in Ser um or PlasmaOrdered By: Jamal Alvarez on 02-06-2025 Glucose [Mass/Vol] Glucose [Mass/volume ] in Serum or Plasma 70-100 [facility] Comment on above: ADA recommended refe rence rangeRandom Glucose Reference Range is dependent on time and content of last meal. Glucose of more than 200 mg/dL in a nonstressed, ambulatory subject supports the diagnosis of Diabetes Mellitus. Hematocrit Auto (Bld) [Volum e fraction]Ordered By: Jamal Alvarez on 02-06-2025 Hematocrit (Bld) [Volume fraction] Hematocrit [Volume Fraction] of Blood by Automated count 34.0-46.4 [facility] Hemoglobin A1c/Hemoglobin.to maty in BloodOrdered By: JOSE LUIS LOCKHART on 02-06-2025 HbA1c (Bld) [Mass fraction] Hemoglobin A1c percentage High 4.3-5.6 [facility] Comment on above: Increased risk for d iabetes: 5.7 - 6.4diabetes: >6.4glycemic control for adults with diabetes: <7.0 Hemoglobin [Mass/volume] in BloodOrdered By: Jamal Alvarez on 02-06-2025 Hemoglobin (Bld) [Mass/Vol] Hemoglobin [Mass/volume] in Blood 11.8-15.4 [facility] Leukocytes [#/volume] correc rob for nucleated erythrocytes in Blood by Automated counOrdered By: Jamal Alvarez on 02-06-2025 WBC corrected for nucl RBC Auto (Bld) [#/Vol] Leukocytes [#/volume] corrected for nucleated erythrocytes in Blood by Automated coun 3.8-11.6 [facility] Lipid 1996 panelon Cholesterol [Mass/Vol] 175 mg/dL 140 - 200 mg/dL [facility] Comment on above: Chol less than 200 m g/dl low risk Chol 201-239 mg/dl borderline risk Chol 240 mg/dl and greater high risk Cholesterol in HDL [Mass/Vol] 72 mg/dL 23 - 92 mg/dL [facility] Comment on above: HDL CHOL ATP-III CLA SSIFICATION Cardiovascular Risk HDL > or equal to 60 mg/dL LOW HDL < 40 mg/dL HIGH Cholesterol.total/Chol esterol in HDL [Mass ratio] 2.4 {ratio} NINF - 5.0 [facility] LDL CHOLESTEROL,CALCULATED 84 mg/dL 0 - 100 mg/dL [facility] Comment on above: LDL ATP III CLASSIFI CATION LDL less than 100 mg/dL Optimal LDL 100-129 mg/dL Near or above optimal LDL 130-159 mg/dL Borderline high LDL 160-189 mg/dL High LDL greater than 189 mg/dL Very high Magnesium [Mass/Vol] 18 mg/dL [facility] TRIGLYCERIDE W/REFLEX 94 mg/dL 0 - 14 9 mg/dL [facility] Comment on above: TRIG ATP III CLASSIF ICATION TRIG less than 150 mg/dL Normal TRIG 150-199 mg/dL Borderline high TRIG 200-500 mg/dL High TRIG greater than 500 mg/dL Very high Standard traceable to the Center for Disease Conrtrol and Prevention (CDC) test method. Lipid Panelon 02-06-2025 Cholesterol [Mass/Vol] 175 mg/dL Normal 140-200 [facility] Comment on above: Result Comment: Chol less than 200 mg/dl low risk Chol 201-239 mg/dl borderline risk Chol 240 mg/dl and greater high risk Performed By: #### U RMACRERAT, LIPID, CBC, CMP ####[facility] [id number] [place] [address] [facility] Cholesterol in HDL [Mass/Vol] 72 mg/dL Normal 23-92 [facility] Comment on above: Result Comment: HDL CHOL ATP-III CLASSIFICATION Cardiovascular Risk HDL > or equal to 60 mg/dL LOW HDL < 40 mg/dL HIGH Performed By: #### U RMACRERAT, LIPID, CBC, CMP ####[address] Cholesterol.total/Chol esterol in HDL [Mass ratio] 2.4 {ratio} Normal <5.0 [facility] Comment on above: Result Comment: PERF ORMED BY: [facility] [address] [place] [address] PATHOLOGIST MACHINE SPECIALIST ROZ MAE M.D. Performed By: #### U RMACRERAT, LIPID, CBC, CMP ####[address] LDL Cholesterol,Calculated 84 mg/dL Normal 0-100 [facility] Comment on above: Result Comment: LDL ATP III CLASSIFICATION LDL less than 100 mg/dL Optimal LDL 100-129 mg/dL Near or above optimal LDL 130-159 mg/dL Borderline high LDL 160-189 mg/dL High LDL greater than 189 mg/dL Very high Performed By: #### U RMACRERAT, LIPID, CBC, CMP ####[address] Triglyceride w/Reflex 94 mg/dL Normal 0-149 [facility] Comment on above: Result Comment: TRIG ATP III CLASSIFICATION TRIG less than 150 mg/dL Normal TRIG 150-199 mg/dL Borderline high TRIG 200-500 mg/dL High TRIG greater than 500 mg/dL Very high Standard traceable to the Center for Disease Conrtrol and Prevention (CDC) test method. Performed By: #### U RMACRERAT, LIPID, CBC, CMP ####[address] VLDL CHOLESTEROL 18 mg/dL Normal [facility] Comment on above: Performed By: #### U RMACRERAT, LIPID, CBC, CMP ####[address] Lymphocytes Auto (Bld) [#/Vo l]Ordered By: Jamal Alvarez on 02-06-2025 Lymphocytes (Bld) [#/Vol] Lymphocytes [#/volume] in Blood by Automated count 1.00-4.8 [facility] Lymphocytes/100 WBC Auto (Bl d)Ordered By: Jamal Alvarez on 02-06-2025 Lymphocytes/100 WBC (Bld) Lymphocytes/100 leukocytes in Blood by Automated count . [facility] MCH Auto (RBC) [Entitic mass ]Ordered By: Jamal Alvarez on 02-06-2025 MCH (RBC) [Entitic mass] MCH [Entitic mass] by Automated count 24.7-34.3 [facility] MCHC Auto (RBC) [Mass/Vol]Or dered By: Jamal Alvarez on 02-06-2025 MCHC (RBC) [Mass/Vol] MCHC [Mass/volume] by Automated count 32.0-35.0 [facility] MCV Auto (RBC) [Entitic vol] Ordered By: Jamal Alvarez on 02-06-2025 MCV (RBC) [Entitic vol] MCV [Entitic volume] by Automated count 80-100 [facility] MicroAlb Creat Ratio,Uon Albumin DL <= 20 mg/L (U) [Mass/Vol] mg/dL Normal 0.0-1.8 [facility] Comment on above: Performed By: #### U RMACRERAT, LIPID, CBC, CMP ####[place] [id number] [address] Creatinine, Urine (Random) 52.00 mg/dL Normal [facility] Comment on above: Result Comment: No r eference range established Performed By: #### U RMACRERAT, LIPID, CBC, CMP ####[place] [id number] [place] [id number] [facility] Microalbumin/Creatinin e Ratio Not performed Normal 0.0-30.0 [facility] Comment on above: Result Comment: PERF ORMED BY: [facility] [address] [place] [address] PATHOLOGIST MACHINE SPECIALIST ROZ MEA M.D. Performed By: #### U RMACRERAT, LIPID, CBC, CMP ####[facility] [id number] [place] [id number] [facility] Microalbumin [Mass/volume] i n UrineOrdered By: Jamal Alvarez on 02-06-2025 Albumin DL <= 20 mg/L (U) [Mass/Vol] Microalbumin [Mass/volume] in Urine 0.0-1.8 [facility] Microalbumin/Creatinine rati o panel (U)on 02-06-2025 Albumin [Mass/Vol] mg/dL 0.0 - 1.8 mg/dL [facility] Creatinine spec 2 (U) [Mass/Vol] 52 mg/dL [facility] Comment on above: No reference range e stablished MICROALBUMIN/CREATININ E RATIO Not performed 0.0 - 30.0 [facility] Monocytes Auto (Bld) [#/Vol] Ordered By: Jamal Alvarez on 02-06-2025 Monocytes (Bld) [#/Vol] Automated blood monocyte count 0.0-0.8 [facility] Monocytes/100 WBC Auto (Bld) Ordered By: Jamal Alvarez on 02-06-2025 Monocytes/100 WBC (Bld) Automated monocyte % . [facility] Neutrophils Auto (Bld) [#/Vo l]Ordered By: Jamal Alvarez on 02-06-2025 Neutrophils (Bld) [#/Vol] Neutrophils [#/volume] in Blood by Automated count 1.8-7.7 [facility] Neutrophils/100 WBC Auto (Bl d)Ordered By: Jamal Alvarez on 02-06-2025 Neutrophils/100 WBC (Bld) Automated neutrophil % . [facility] No Panel Informationon 02-06 [facility] No Panel InformationOrdered By: Jamal Alvarez on 02-06-2025 Estimated GFR (CKD-EPI) > 60.0 mL/Min [facility] Creatinine Clearance (Chem N/A [facility] Nucleated erythrocytes [Pres ence] in Blood by Automated countOrdered By: Jamal Alvarez on 02-06-2025 Nucleated RBC Auto Ql (Bld) Nucleated erythrocytes [Presence] in Blood by Automated count 0-0.5 [facility] Platelet mean volume Auto (B ld) [Entitic vol]Ordered By: Jamal Alvarez on 02-06-2025 Platelet mean volume (Bld) [Entitic vol] Platelet mean volume [Entitic volume] in Blood by Automated count 6.3-10.7 [facility] Platelets Auto (Bld) [#/Vol] Ordered By: Jamal Alvarez on 02-06-2025 Platelets (Bld) [#/Vol] Platelets [#/volume] in Blood by Automated count 150-450 [facility] Potassium [Moles/volume] in Serum or PlasmaOrdered By: Jamal Alvarez on 02-06-2025 Potassium [Moles/Vol] Potassium [Moles/v olume] in Serum or Plasma 3.5-5.1 [facility] Protein [Mass/volume] in Ser um or PlasmaOrdered By: Jamal Alvarez on 02-06-2025 Protein [Mass/Vol] Protein [Mass/volume ] in Serum or Plasma 6.4-8.9 [facility] RBC Auto (Bld) [#/Vol]Ordere d By: Jamal Alvarez on 02-06-2025 RBC (Bld) [#/Vol] Erythrocytes [#/volu me] in Blood by Automated count 3.60-5.00 [facility] Serum or plasma albumin/glob ulin mass ratioOrdered By: Jamal Alvarez on 02-06-2025 Albumin/Globulin [Mass ratio] Serum or plasma albumin/globulin mass ratio [facility] Serum or plasma anion gap de terminationOrdered By: Jamal Alvarez on 02-06-2025 Anion gap [Moles/Vol] Serum or plasma an ion gap determination 6.0-15.0 [facility] Serum or plasma total choles terol/high density lipoprotein (HDL) cholesterol mass ratOrdered By: Jamal Alvarez on 02-06-2025 Cholesterol.total/Chol esterol in HDL [Mass ratio] Serum or plasma total cholesterol/high density lipoprotein (HDL) cholesterol mass rat <5.0 [facility] Sodium [Moles/volume] in Ser um or PlasmaOrdered By: Jamal Alvarez on 02-06-2025 Sodium [Moles/Vol] Sodium [Moles/volume ] in Serum or Plasma 136-145 [facility] Thyroid Stimulating Hormoneo n 02-06-2025 TSH Qn 1.05 m[IU]/L Normal 0.45-5.33 [facility] Comment on above: Result Comment: PERF ORMED BY: [facility] [address] [place] [address] PATHOLOGIST MACHINE SPECIALIST ROZ MAE M.D. Performed By: #### T 4F, TSH3 ####[facility] [id number] [address] Thyrotropin [Units/volume] i n Serum or PlasmaOrdered By: Valdez Castro on 02-06-2025 TSH Qn Thyrotropin [Units/v olume] in Serum or Plasma 0.45-5.33 [facility] Thyroxine (T4) free [Mass/vo lume] in Serum or PlasmaOrdered By: Valdez Castro on 02-06-2025 Free T4 [Mass/Vol] Thyroxine (T4) free [Mass/volume] in Serum or Plasma 0.61-1.12 [facility] Triglyceride [Mass/volume] i n Serum or PlasmaOrdered By: Jamal Alvarez on 02-06-2025 Triglyceride [Mass/Vol] Triglyceride [Mass/volume] in Serum or Plasma 0-149 [facility] Comment on above: TRIG ATP III CLASSIF ICATIONTRIG less than 150 mg/dL NormalTRIG 150-199 mg/dL Borderline highTRIG 200-500 mg/dL High TRIG greater than 500 mg/dL Very highStandard traceable to the Center for Disease Conrtrol and Prevention (CDC) test method. Triiodothyronine (T3) Freeon 02-06-2025 Triiodothyronine (T3) Free 2.78 pg/mL Normal 2.50-3.90 [facility] Comment on above: Result Comment: PERF ORMED BY: [place] [address] PATHOLOGIST MACHINE SPECIALIST ROZ MAE M.D. Performed By: #### C MP, PTT, CBC, PT, HS TROP, CK #### [facility] [address] [place] [address] [facility] Triiodothyronine (T3) Free [ Mass/volume] in Serum or PlasmaOrdered By: Valdez Castro on 02-06-2025 Free T3 [Mass/Vol] Triiodothyronine (T3 ) Free [Mass/volume] in Serum or Plasma 2.50-3.90 [facility] Urea nitrogen [Mass/volume] in Serum or PlasmaOrdered By: Jamal Alvarez on 02-06-2025 Urea nitrogen [Mass/Vol] Urea nitrogen [Mass/volume] in Serum or Plasma 05-29 [facility] Urine microalbumin/creatinin e mass ratioOrdered By: Jamal Alvarez on 02-06-2025 Albumin/Creatinine DL <= 20 mg/L (U) [Mass ratio] Urine microalbumin/creatinine mass ratio [facility] Comment on above: Test not performed WBC Auto (Bld) [#/Vol]Ordere d By: Jamal Alvarez on 02-06-2025 WBC (Bld) [#/Vol] Leukocytes [#/volume ] in Blood by Automated count 3.8-11.6 [facility] CNPNon 01-12-2025 CNPN Telephone (NEADFV) -- KARUNA REYNAGA ([id number]) 1945 F Date Time Provider Department 01/12/25 LISA WILLIAM NEADFV During your visit today, we recorded the following information about you: Jyoti Silva 01/12/2025 2:27 PM Signed [facility] pharmacy phoned to follow with prior auth for cannabidiol (EPIDIOLEX) 100 mg/mL oral liquid please call and advise [facility] pharmacy ph# [phone] Jennifer Chandler RN 01/13/2025 10:42 AM Signed Urgent PA initiated in [facility] calderon [id number]. TEAGAN Acevedo Jennifer RN 01/13/2025 11:08 AM Signed Additional information submitted in CMM. Jennifer Chandler RN Daniela Givens 01/13/2025 4:14 PM Signed Please call Gayatri at [phone] at [facility] for additional information. She stated this will auto deny at 6am tomorrow. Jennifer Chandler RN 01/13/2025 5:04 PM Signed Returned call ref [id number]. They wanted to know if pt has intractable seizures. Confirmed. They will issue a determination tomorrow. TEAGAN Acevedo Jennifer, RN 01/15/2025 4:11 PM Signed Jennifer Chandler RN 01/15/2025 4:13 PM Signed Jennifer Chandler RN 01/15/2025 4:23 PM Signed Call to [facility] pharmacy, spoke with PharmD. Med was processed and plan paid, pt portion will be $33/month. Pt will need to call to set up delivery. Call to patient, no answer, voicemail message left. TEAGAN Acevedo Jennifer, RN 01/16/2025 10:38 AM Signed Call to patients daughter, advised her of the approval. Given the number to call [facility]. Jennifer Chandler RN Allergies As of Date: 01/12/2025 Noted Allergy Reaction DARVOCET A500 (PROPOXYPHENE N-ROB*06/29/2020 [...] ANTIBIOTICS) 06/29/2009 2 - Rash Date Reviewed: 12/24/2024 Reviewed by: Lisa William MD, PhD - Fully Assessed Reason for Visit: Medication Question [6458] Prescriptions as of 01/16/2025 - cannabidiol (EPIDIOLEX) 100 mg/mL oral liquid Take 2 mL by mouth two times a day. - azithromycin (ZITHROMAX) 250 mg tablet Take 1 tablet by mouth every Sunday, Sunday, and Sunday. - lamoTRIgine (LAMICTAL) 25 mg tablet take 1 qhs for 2 weeks, then 1 pill bid for two weeks, then 1 pill in AM, 2pill in PM for week, then 2 pills bid for 1 week, then 2 pill in AM, 3 pill in PM for week, then 3 pills bid and stay at that dose. - ipratropium-albuterol (DUONEB) 0.5 mg-3 mg(2.5 mg [...] tablet daily. Problem List As Of Date 01/12/2025 Noted Resolved Cough [R05.9] 06/29/2020 Encounter Status:Closed by JENNIFER CHANDLER on 01/13/25 Normal [facility] Free T4 (Free Thyroxine)on 0 11-20-2024 Free T4 [Mass/Vol] 0.88 ng/dL Normal 0.61-1.12 [facility] Comment on above: Performed By: #### T 3F, TSH3, T4F ####[facility] [place] [address] [facility] Thyroid Stimulating Hormoneo n 11-20-2024 TSH Qn 0.18 m[IU]/L Low 0.45-5.33 [facility] Comment on above: Result Comment: PERF ORMED BY: [place] [address] PATHOLOGIST MACHINE SPECIALIST ROZ MAE M.D. Performed By: #### C MP, PTT, CBC, PT, HS TROP, CK #### [facility] [address] Thyrotropin [Units/volume] i n Serum or PlasmaOrdered By: Valdez Castro on 11-20-2024 TSH Qn Thyrotropin [Units/v olume] in Serum or Plasma Low 0.45-5.33 [facility] Thyroxine (T4) free [Mass/vo lume] in Serum or PlasmaOrdered By: Valdez Castro on 11-20-2024 Free T4 [Mass/Vol] Thyroxine (T4) free [Mass/volume] in Serum or Plasma 0.61-1.12 [facility] Triiodothyronine (T3) Freeon 11-20-2024 Triiodothyronine (T3) Free 2.69 pg/mL Normal 2.50-3.90 [facility] Comment on above: Result Comment: PERF ORMED BY: [place] [address] PATHOLOGIST MACHINE SPECIALIST ROZ MAE M.D. Performed By: #### T 3F, TSH3, T4F ####[facility] [id number] Triiodothyronine (T3) Free [ Mass/volume] in Serum or PlasmaOrdered By: Valdez Castro on 11-20-2024 Free T3 [Mass/Vol] Triiodothyronine (T3 ) Free [Mass/volume] in Serum or Plasma 2.50-3.90 [facility] Juany 09-08-2024 LOPEZ Telephone (MARIONN) -- KARUNA REYNAGA ([id number]) 1945 F Date Time Provider Department 09/08/24 UBALDO DUBOSE During your visit today, we recorded the following information about you: Everardo Madisonamauri 09/08/2024 1:16 PM Signed Karuna Reynaga's daughter Nadira called regarding her VV that was scheduled for today. They ran behind at one of her other appointments, and missed the visit. Her daughter is requesting her to be rescheduled, but don't want to wait a long time for a new appointment. Allergies As of Date: 09/08/2024 Noted Allergy Reaction DARVOCET A500 (PROPOXYPHENE N-ROB*06/29/2020 [...] ANTIBIOTICS) 06/29/2009 2 - Rash Date Reviewed: 08/13/2024 Reviewed by: Lisa William MD, PhD - Fully Assessed Reason for Visit: Missed VV [Other] Prescriptions as of 09/08/2024 - azithromycin (ZITHROMAX) 250 mg tablet Take 1 tablet by mouth every Sunday, Sunday, and Sunday. - lamoTRIgine (LAMICTAL) 25 mg tablet take 1 qhs for 2 weeks, then 1 pill bid for two weeks, then 1 pill in AM, 2pill in PM for week, then 2 pills bid for 1 week, then 2 pill in AM, 3 pill in PM for week, then 3 pills bid and stay at that dose. - ipratropium-albuterol (DUONEB) 0.5 mg-3 mg(2.5 mg [...] tablet daily. Problem List As Of Date 09/08/2024 Noted Resolved Cough [R05.9] 06/29/2020 Encounter Status:Closed by JOHN MADISON on 09/08/24 Normal [facility] MLR HEMOGLOBIN A1Con 024 Glucose [Mass/Vol] 114 mg/dL [facility] HbA1c (Bld) [Mass fraction] 5.6 % 4.5 - 6.2 % [facility] Comment on above: ADA RECOMMENDED LIMI T 4.0 - 6.0 ADA THERAPEUTIC TARGET < 7.0 ACTION SUGGESTED > 7.0 [facility] ALL CBC WITH AUTO DIFFon BASOPHILS ABSOLUTE AUTO 0.1 [facility] Basophils/100 WBC (Bld) 0.8 % 0.2 - 2.0 % [facility] Eosinophils/100 WBC (Bld) 4.2 % 0.9 - 7.0 % [facility] Erythrocyte distribution width (RBC) [Ratio] 12.5 % 11.0 - 15.0 % [facility] Hematocrit (Bld) [Volume fraction] 40.9 % 36.0 - 48.0 % [facility] Hemoglobin (Bld) [Mass/Vol] 13.0 g/dL 12.0 - 16.0 g/dL [facility] IMMATURE GRANULOCYTES ABS AUTO 0.01 [facility] Immature granulocytes/100 WBC (Bld) 0.1 % 0.0 - 0.5 % [facility] LYMPHOCYTES ABSOLUTE AUTO 2.3 [facility] Lymphocytes/100 WBC (Bld) 32.7 % 20.5 - 60.0 % [facility] MCH (RBC) [Entitic mass] 29.5 pg 26.7 - 34.0 pg [facility] MCHC (RBC) [Mass/Vol] 31.8 g/dL 29.9 - 35.2 g/dL [facility] MCV (RBC) [Entitic vol] 92.7 fL 81.0 - 99.0 fL [facility] MONOCYTES ABSOLUTE AUTO 0.4 [facility] Monocytes/100 WBC (Bld) 5.5 % 1.7 - 12.0 % [facility] NEUTROPHILS ABSOLUTE AUTO 4.0 [facility] Neutrophils/100 WBC (Bld) 56.7 % 43.0 - 75.0 % [facility] Platelet mean volume (Bld) [Entitic vol] 10.2 fL 9.5 - 13.5 fL [facility] TBH EO # 0.3 [facility] TBH PLT 262 [facility] TB RBC 4.41 [facility] WBC 7.1 [facility]ISYNC [facility] CNPNon 07-30-2024 [facility] Telephone (NEURAV) -- KARUNA REYNAGA ([id number]) 1945 F Date Time Provider Department 07/30/24 [...] daughter: Nadira Call patient at: on cell [phone] (home) [phone] (cell) Was an appointment scheduled: No Closing statement: Results or non-symptom based questions: Thank you for calling [facility], your call will be returned within the next business day. Yanick Douglass Yaa Russell 07/30/2024 2:05 PM Signed Patient called back today, and indicated that she's going to have this done at [facility] and they need the order to specifically state how long you want them to do the test for, so please include a time frame on the order. Then fax over to [facility] at: [phone] Sowmya Gresham RN 07/30/2024 2:54 PM Signed [...] PM Addendum Spoke with Karuna States that [facility] needs the order to specify what is [...] 2:18 PM Addendum EEG order faxed to [facility] via [facility] request to fax report to [phone] send EEG tracings to [facility] Sowmya Gresham [...] convulsion type (HCC) [R56.9] Order(s):EPIL EEG LONG [[id number]] Order #: [id number]: 1 FUTURE Prescriptions as of 08/01/2024 - [...] Encounter Status:Closed by SOWMYA GRESHAM on 08/01/24 [facility] Juany 06-05-2024 [facility] KARUNA REY[facility]GA ([id number]) 1945 F Date Time Provider Department 06/05/24 UBALDO DUBOSE During your visit today, we recorded the following information about you: John Madison 06/05/2024 4:52 PM Signed Fax received on 06/05/2024 from [employer], regarding CMN. Fax placed on provider desk for review/signature. Unsigned copy scanned into patient chart. John Madison 06/06/2024 7:47 AM Signed Admin faxed over certificate of medical necessity to [employer], signed by Dr. Ubaldo Dubose MD. Admin [...] Encounter Status:Closed by JOHN MADISON on 06/05/24 [facility] CNCONon 04-22-2024 CNCON Consults (REBELSES) -- KARUNA REYNAGA ([id number]) 1945 F Date Time Provider Department 04/22/24 FLEX JUAREZ During your visit today, we recorded the following information about you: Charito Crow APRN.ASPHALT SURFACE HEATER OPERATOR 04/22/2024 10:10 AM Signed [facility] Review of Records Patient: Karuna Reynaga Address: [address] [place] [address] Impression: Review of records for Karuna Reynaga, [...] ASMs PRIOR EVALUATIONS: CT Brain WO 04/15/2024 ([facility]) IMPRESSION: ATROPHY AND CHRONIC ISCHEMIC CHANGES. NO ACUTE INTRACRANIAL FINDINGS EEG Routine 04/15/2024 ([facility]) Routine EEG showed bifrontal slowing but no epileptiform discharges or seizures MRI Brain 04/15/2024 ([facility]) MRI brain April 15, 2024 without contrast shows bilateral frontal lobe encephalomalacia, some other generalized atrophy, no acute intracranial findings REJI Recommendations: - EEG long - Visit with epileptologist - Additional testing to be considered by epilepsy clinicians Signed: Charito Crow APRN.ASPHALT SURFACE HEATER OPERATOR April 22, [address] Juarez [...] Visit Diagnosis:Convulsions, unspecified convulsion type (HCC) [R56.9] Order(s):[facility] ADDIS GALLO [[id number]] Order #: [id number]: 1 FUTURE Prescriptions as of 04/22/2024 - [...] Status:Closed by CHARITO CROW on 04/22/24 Normal [facility] Thyrotropin [Units/volume] i n Serum or PlasmaOrdered By: Valdez Castro on 04-22-2024 TSH Qn 1.42 m[IU]/L Normal 0.45-5.33 [facility] Comment on above: Result Comment: PERF ORMED BY: [place] [address] PATHOLOGIST MACHINE SPECIALIST EDMOND NORTH M.D. Performed By: #### C MP, PTT, CBC, PT, HS TROP, CK #### [address] Thyroxine (T4) free [Mass/vo lume] in Serum or PlasmaOrdered By: Valdez Castro on 04-22-2024 Free T4 [Mass/Vol] 0.64 ng/dL Normal 0.61-1.12 [facility] Comment on above: Performed By: #### C MP, PTT, CBC, PT, HS TROP, CK #### [place] [address] [place] Triiodothyronine (T3) Freeon 04-22-2024 Triiodothyronine (T3) Free 2.84 pg/mL Normal 2.50-3.90 [facility] Comment on above: Result Comment: PERF ORMED BY: [place] [address] PATHOLOGIST MACHINE SPECIALIST EDMOND NORTH M.D. Performed By: #### C MP, PTT, CBC, PT, HS TROP, CK #### [address] Triiodothyronine (T3) Free [ Mass/volume] in Serum or PlasmaOrdered By: Valdez Castro on 04-22-2024 Free T3 [Mass/Vol] 2.84 pg/mL 2.50-3.90 [facility] Juany 04-21-2024 BEATRIZN Telephone (NE50MN) -- JUHIKARUNA ([id number]) 1945 F Date Time Provider Department 04/21/24 FLEX JUAREZ NE50MN During your visit today, we recorded the following information about you: Gwen De Souza 04/21/2024 4:18 PM Signed [facility] Initial Intake Interview April 21, 2024 4:05 PM Caller: Nadira Relationship to pt: Daughter Patient name: Karuna Wylie Juhi Age: [age] year old Address: [address] [place], [place] [id number] (home) Insurance: Payor: [facility] MEDICARE / Plan: [facility] MEDICARE ADVANTAGE PPO / Product Type: PPO / Referred by: Self (word of mouth) Referring to: Any Reason for Evaluation: further evaluation and treatment Previously evaluated at: [place], [place] Tel: N/A Fax: N/A Age AND [...] or No Date Facility EEG Yes 04/2024 [place], [place]) Video EEG No MRI brain Yes 04/2024 [place], [place]) CT brain Yes 04/2024 [place], [place]) fMRI brain No PET No Ictal [...] -EEG -MRI BRAIN -CT BRAIN -CARE EVERYWHERE ([place], [place]) Gwen De Souza April 21, 2024 [...] - Rash Date Reviewed: 03/03/2024 Reviewed by: Uabldo Dubose MD - Fully Assessed Reason for [...] by GWEN DE SOUZA on 04/21/24 Normal [facility] Automated basophil %Ordered By: Albert Palacio on 04-16-2024 Basophils/100 WBC (Bld) 0.8 % Normal . [facility] Comment on above: Order Comment: DRAW AT 0730 PER TEAGAN CASTRO. GAVINB 0450. TEAGAN CASTRO IS AWARE Performed By: #### C MP, PTT, CBC, PT, HS TROP, CK #### [facility] [address] Automated basophil countOrde red By: Albert Palacio on 04-16-2024 Basophils (Bld) [#/Vol] 0.1 10*3/uL Normal 0.0-0.2 [facility] Comment on above: Order Comment: DRAW AT 0730 PER TEAGAN CASTRO. SMB 0450. TEAGAN CASTRO IS AWARE Result Comment: PERF ORMED BY: [place] [address] PATHOLOGIST MACHINE SPECIALIST EDMOND NORTH M.D. Performed By: #### C MP, PTT, CBC, PT, HS TROP, CK #### [facility] [address] Automated blood monocyte cou ntOrdered By: Albert Palacio on 04-16-2024 Monocytes (Bld) [#/Vol] 0.5 10*3/uL Normal 0.0-0.8 [facility] Comment on above: Order Comment: DRAW AT 0730 PER RN MATTHEW. SMB 0450. RN MATTHEW IS AWARE Performed By: #### C MP, PTT, CBC, PT, HS TROP, CK #### [address] Automated eosinophil %Ordere d By: Albert Palacio on 04-16-2024 Eosinophils/100 WBC (Bld) 3.6 % Normal . [facility] Comment on above: Order Comment: DRAW AT 0730 PER RN MATTHEW. SMB 0450. RN MATTHEW IS AWARE Performed By: #### C MP, PTT, CBC, PT, HS TROP, CK #### [address] Automated eosinophil countOr dered By: Albert Palacio on 04-16-2024 Eosinophils (Bld) [#/Vol] 0.3 10*3/uL Normal 0.0-0.45 [facility] Comment on above: Order Comment: DRAW AT 0730 PER RN MATTHEW. SMB 0450. RN MATTHEW IS AWARE Performed By: #### C MP, PTT, CBC, PT, HS TROP, CK #### [address] Automated monocyte %Ordered By: Albert Palacio on 04-16-2024 Monocytes/100 WBC (Bld) 6.4 % Normal . [facility] Comment on above: Order Comment: DRAW AT 0730 PER RN MATTHEW. SMB 0450. RN MATTHEW IS AWARE Performed By: #### C MP, PTT, CBC, PT, HS TROP, CK #### [facility] [address] [place] [address] [place] Automated neutrophil %Ordere d By: Albert Palacio on 04-16-2024 Neutrophils/100 WBC (Bld) 66.9 % Normal . [facility] Comment on above: Order Comment: DRAW AT 0730 PER RN MATTHEW. SMB 0450. RN MATTHEW IS AWARE Performed By: #### C MP, PTT, CBC, PT, HS TROP, CK #### [address] Basic Metabolic Panelon 04-05 Creatinine Clr Calc Pharmacy 40.49 Normal [facility] Comment on above: Order Comment: DRAW AT 0730 PER RN MATTHEW. SMB 0450. RN MATTHEW IS AWARE Result Comment: PERF ORMED BY: [place] [address] PATHOLOGIST MACHINE SPECIALIST EDMOND NORTH M.D. Performed By: #### C MP, PTT, CBC, PT, HS TROP, CK #### [place] [address] [place] GFR/1.73 sq M.predicted MDRD (S/P/Bld) [Vol rate/Area] mL/min/{1.73_m2} Normal [facility] Comment on above: Order Comment: DRAW AT 0730 PER RN MATTHEW. SMB 0450. RN MATTHEW IS AWARE Performed By: #### C MP, PTT, CBC, PT, HS TROP, CK #### [place] [address] [place] Calcium [Mass/volume] in Ser um or PlasmaOrdered By: Albert Palacio on 04-16-2024 Calcium [Mass/Vol] 9.6 mg/dL Normal 8.6-10.3 [facility] Comment on above: Order Comment: DRAW AT 0730 PER RN MATTHEW. SMB 0450. RN MATTHEW IS AWARE Performed By: #### C MP, PTT, CBC, PT, HS TROP, CK #### [facility] [address] [place] [id number] [place] Carbon dioxide, total [Moles /volume] in Serum or PlasmaOrdered By: Albert Palacio on 04-16-2024 CO2 [Moles/Vol] 24.4 mmol/L Normal 21.0-31.0 [facility] Comment on above: Order Comment: DRAW AT 0730 PER RN MATTHEW. SMB 0450. RN MATTHEW IS AWARE Performed By: #### C MP, PTT, CBC, PT, HS TROP, CK #### [facility] [address] Chloride [Moles/volume] in S sun or PlasmaOrdered By: Albert Palacio on 04-16-2024 Chloride [Moles/Vol] 105 mmol/L Normal 98-107 [facility] Comment on above: Order Comment: DRAW AT 0730 PER RN MATTHEW. SMB 0450. RN MATTHEW IS AWARE Performed By: #### C MP, PTT, CBC, PT, HS TROP, CK #### [address] Complete Blood Count Auto Di ffon 04-16-2024 Mean Corpuscular HGB Conc 32.7 g/dL Normal 32.0-35.0 [facility] Comment on above: Order Comment: DRAW AT 0730 PER RN MATTHEW. SMB 0450. RN MATTHEW IS AWARE Performed By: #### C MP, PTT, CBC, PT, HS TROP, CK #### [address] NRBC% 0.0 /100{WBC} Normal 0-0.5 [facility] Comment on above: Order Comment: DRAW AT 0730 PER RN MATTHEW. SMB 0450. RN MATTHEW IS AWARE Performed By: #### C MP, PTT, CBC, PT, HS TROP, CK #### [address] Creatinine [Mass/volume] in Serum or PlasmaOrdered By: Albert Palacio on 04-16-2024 Creatinine [Mass/Vol] 0.96 mg/dL Normal 0.60-1.20 [facility] Comment on above: Order Comment: DRAW AT 0730 PER RN MATTHEW. SMB 0450. RN MATTHEW IS AWARE Performed By: #### C MP, PTT, CBC, PT, HS TROP, CK #### [address] [place] [address] [place] Erythrocyte distribution wid th [Ratio] by Automated countOrdered By: Albert Palacio on 04-16-2024 Erythrocyte distribution width (RBC) [Ratio] 13.0 % Normal 11.9-15.3 [facility] Comment on above: Order Comment: DRAW AT 0730 PER RN MATTHEW. SMB 0450. RN MATTHEW IS AWARE Performed By: #### C MP, PTT, CBC, PT, HS TROP, CK #### [facility] [address] Erythrocytes [#/volume] in B lood by Automated countOrdered By: Albert Palacio on 04-16-2024 RBC (Bld) [#/Vol] 4.70 10*6/uL Normal 3.60-5.00 [facility] Comment on above: Order Comment: DRAW AT 0730 PER TEAGAN RIOSSA. SMB 0450. RN MATTHEW IS AWARE Performed By: #### C MP, PTT, CBC, PT, HS TROP, CK #### [facility] [address] [place] [address] [place] Glucose [Mass/volume] in Ser um or PlasmaOrdered By: Albert Palacio on 04-16-2024 Glucose [Mass/Vol] 112 mg/dL High 70-100 [facility] Comment on above: ADA recommended refe rence rangeRandom Glucose Reference Range is dependent on time and content of last meal. Glucose of more than 200 mg/dL in a nonstressed, ambulatory subject supports the diagnosis of Diabetes Mellitus. Order Comment: DRAW AT 0730 PER TEAGAN CASTRO. SMB 0450. RN MATTHEW IS AWARE Result Comment: [place] om Glucose Reference Range is dependent on time and content of last meal. Glucose of more than 200 mg/dL in a nonstressed, ambulatory subject supports the diagnosis of Diabetes Mellitus. ADA recommended reference range Performed By: #### C MP, PTT, CBC, PT, HS TROP, CK #### [facility] [address] Hematocrit [Volume Fraction] of Blood by Automated countOrdered By: Albert Palacio on 04-16-2024 Hematocrit (Bld) [Volume fraction] 42.1 % Normal 34.0-46.4 [facility] Comment on above: Order Comment: DRAW AT 0730 PER RN MATTHEW. SMB 0450. RN MATTHEW IS AWARE Performed By: #### C MP, PTT, CBC, PT, HS TROP, CK #### [facility] [address] [place] [address] [place] Hemoglobin [Mass/volume] in BloodOrdered By: Albert Palacio on 04-16-2024 Hemoglobin (Bld) [Mass/Vol] 13.7 g/dL Normal 11.8-15.4 [facility] Comment on above: Order Comment: DRAW AT 0730 PER RN MATTHEW. SMB 0450. RN MATTHEW IS AWARE Performed By: #### C MP, PTT, CBC, PT, HS TROP, CK #### [facility] [address] Leukocytes [#/volume] correc rob for nucleated erythrocytes in Blood by Automated counOrdered By: Albert Palacio on 04-16-2024 WBC corrected for nucl RBC Auto (Bld) [#/Vol] 7.5 10*3/uL 3.8-11.6 [facility] Leukocytes [#/volume] in Blo od by Automated countOrdered By: Albert Palacio on 04-16-2024 WBC (Bld) [#/Vol] 7.5 10*3/uL Normal 3.8-11.6 [facility] Comment on above: Order Comment: DRAW AT 0730 PER RN MATTHEW. SMB 0450. RN MATTHEW IS AWARE Performed By: #### C MP, PTT, CBC, PT, HS TROP, CK #### [facility] [address] [place] [address] [place] Lymphocytes [#/volume] in Bl ood by Automated countOrdered By: Albert Palacio on 04-16-2024 Lymphocytes (Bld) [#/Vol] 1.7 10*3/uL Normal 1.00-4.8 [facility] Comment on above: Order Comment: DRAW AT 0730 PER RN MATTHEW. SMB 0450. RN MATTHEW IS AWARE Performed By: #### C MP, PTT, CBC, PT, HS TROP, CK #### [facility] [address] [place] [address] [place] Lymphocytes/100 leukocytes i n Blood by Automated countOrdered By: Albert Palacio on 04-16-2024 Lymphocytes/100 WBC (Bld) 22.3 % Normal . [facility] Comment on above: Order Comment: DRAW AT 0730 PER RN MATTHEW. SMB 0450. RN MATTHEW IS AWARE Performed By: #### C MP, PTT, CBC, PT, HS TROP, CK #### [facility] [address] MCH [Entitic mass] by Automa rob countOrdered By: Albert Palacio on 04-16-2024 MCH (RBC) [Entitic mass] 29.2 pg Normal 24.7-34.3 [facility] Comment on above: Order Comment: DRAW AT 0730 PER RN MATTHEW. SMB 0450. RN MATTHEW IS AWARE Performed By: #### C MP, PTT, CBC, PT, HS TROP, CK #### [address] MCHC Auto (RBC) [Mass/Vol]Or dered By: Albert Palacio on 04-16-2024 MCHC (RBC) [Mass/Vol] 32.7 g/dL 32.0-35.0 [facility] MCV [Entitic volume] by Auto mated countOrdered By: Albert Palacio on 04-16-2024 MCV (RBC) [Entitic vol] 89.5 fL Normal 80-100 [facility] Comment on above: Order Comment: DRAW AT 0730 PER RN MATTHEW. SMB 0450. RN MATTHEW IS AWARE Performed By: #### C MP, PTT, CBC, PT, HS TROP, CK #### [facility] [address] [place] [address] NM chaitanya perf SPECT rest stron 04-16-2024 NM chaitanya perf SPECT rest str [facility] Main [place] [address] [place] [address] Nuclear Medicine Report Signed Patient: Karuna Reyanga MR#: [id number] 289 : 1945 Acct:[id number] Age/Sex: 79 / F ADM Date: 04/13/24 Loc: Room: 6Y8683-2 Type: ADM IN Attending Dr: Renan Murguia MD Copies to: MD Inocencio Lanier MD W Scott Sheldon, DO Ordering Provider: Vic Hess DO Date of Service: 04/16/24 NM/NM chaitanya perf SPECT rest str: chest pain *DOSE ORDERED* NUCLEAR MYOCARDIAL PERFUSION DATE OF PROCEDURE: 04/16/2024 ATTENDING HEAD OF SALES: Dr. Inocencio Mg REQUESTING PHYSICIAN: Dr. Hess [...] Inocencio Mg M.D.04/16/2024 4:10 PM Dictation Location: [place] [address] Transcribed By: [facility] 04/16/24 1610 Dictated By: Inocencio Mg MD 04/16/24 1609 Signed By: 04/16/24 1610 Normal [facility] Neutrophils [#/volume] in Bl ood by Automated countOrdered By: Albert Palacio on 04-16-2024 Neutrophils (Bld) [#/Vol] 5.0 10*3/uL Normal 1.8-7.7 [facility] Comment on above: Order Comment: DRAW AT 0730 PER TEAGAN CASTRO. SMB 0450. RN MATTHEW IS AWARE Performed By: #### C MP, PTT, CBC, PT, HS TROP, CK #### [address] No Panel InformationOrdered By: Albert Palacio on 04-16-2024 Estimated GFR (CKD-EPI) > 60.0 mL/Min [facility] Creatinine Clearance (Chem 40.49 [facility] Nucleated erythrocytes [Pres ence] in Blood by Automated countOrdered By: Albert Palacio on 04-16-2024 Nucleated RBC Auto Ql (Bld) 0.0 /100{WBC} 0-0.5 [facility] Platelet mean volume [Entiti c volume] in Blood by Automated countOrdered By: Albert Palacio on 04-16-2024 Platelet mean volume (Bld) [Entitic vol] 8.0 fL Normal 6.3-10.7 [facility] Comment on above: Order Comment: DRAW AT 0730 PER RN MATTHEW. SMB 0450. RN MATTHEW IS AWARE Performed By: #### C MP, PTT, CBC, PT, HS TROP, CK #### [address] Platelets [#/volume] in Bloo d by Automated countOrdered By: Albert Palacio on 04-16-2024 Platelets (Bld) [#/Vol] 222 10*3/uL Normal 150-450 [facility] Comment on above: Order Comment: DRAW AT 0730 PER RN MATTHEW. SMB 0450. RN MATTHEW IS AWARE Performed By: #### C MP, PTT, CBC, PT, HS TROP, CK #### [address] Potassium [Moles/volume] in Serum or PlasmaOrdered By: Albert Palacio on 04-16-2024 Potassium [Moles/Vol] 4.9 mmol/L Normal 3.5-5.1 [facility] Comment on above: Order Comment: DRAW AT 0730 PER RN MATTHEW. SMB 0450. RN MATTHEW IS AWARE Performed By: #### C MP, PTT, CBC, PT, HS TROP, CK #### [address] Serum or plasma anion gap de terminationOrdered By: Albert Palacio on 04-16-2024 Anion gap [Moles/Vol] 13.5 mmol/L Normal 6.0-15.0 [facility] Comment on above: Order Comment: DRAW AT 0730 PER RN AMTTHEW. SMB 0450. RN MATTHEW IS AWARE Performed By: #### C MP, PTT, CBC, PT, HS TROP, CK #### [facility] [address] Sodium [Moles/volume] in Ser um or PlasmaOrdered By: Albert Palacio on 04-16-2024 Sodium [Moles/Vol] 138 mmol/L Normal 136-145 [facility] Comment on above: Order Comment: DRAW AT 0730 PER RN MATTHEW. SMB 0450. RN MATTHEW IS AWARE Performed By: #### C MP, PTT, CBC, PT, HS TROP, CK #### [facility] [address] Urea nitrogen [Mass/volume] in Serum or PlasmaOrdered By: Albert Palacio on 04-16-2024 Urea nitrogen [Mass/Vol] 31 mg/dL High 7-25 [facility] Comment on above: Order Comment: DRAW AT 0730 PER RN MATTHEW. SMB 0450. RN MATTHEW IS AWARE Performed By: #### C MP, PTT, CBC, PT, HS TROP, CK #### [address] Basic Metabolic Panelon 04-05 Anion gap [Moles/Vol] 9.9 mmol/L Normal 6.0-15.0 [facility] Comment on above: Performed By: #### C MP, PTT, CBC, PT, HS TROP, CK #### [facility] [address] [place] [address] [place] Calcium [Mass/Vol] 8.6 mg/dL Normal 8.6-10.3 [facility] Comment on above: Performed By: #### C MP, PTT, CBC, PT, HS TROP, CK #### [place] [address] [place] Chloride [Moles/Vol] 107 mmol/L Normal 98-107 [facility] Comment on above: Performed By: #### C MP, PTT, CBC, PT, HS TROP, CK #### [address] CO2 [Moles/Vol] 26.4 mmol/L Normal 21.0-31.0 [facility] Comment on above: Performed By: #### C MP, PTT, CBC, PT, HS TROP, CK #### [address] Creatinine [Mass/Vol] 0.81 mg/dL Normal 0.60-1.20 [facility] Comment on above: Performed By: #### C MP, PTT, CBC, PT, HS TROP, CK #### [address] Creatinine Clr Calc Pharmacy 47.30 Normal [facility] Comment on above: Result Comment: PERF ORMED BY: [place] [address] PATHOLOGIST MACHINE SPECIALIST EDMOND NORTH M.D. Performed By: #### C MP, PTT, CBC, PT, HS TROP, CK #### [address] GFR/1.73 sq M.predicted MDRD (S/P/Bld) [Vol rate/Area] mL/min/{1.73_m2} Normal [facility] Comment on above: Performed By: #### C MP, PTT, CBC, PT, HS TROP, CK #### [address] Glucose [Mass/Vol] 91 mg/dL Normal 70-100 [facility] Comment on above: Result Comment: [place] Glucose Reference Range is dependent on time and content of last meal. Glucose of more than 200 mg/dL in a nonstressed, ambulatory subject supports the diagnosis of Diabetes Mellitus. ADA recommended reference range Performed By: #### C MP, PTT, CBC, PT, HS TROP, CK #### [address] Potassium [Moles/Vol] 4.3 mmol/L Normal 3.5-5.1 [facility] Comment on above: Performed By: #### C MP, PTT, CBC, PT, HS TROP, CK #### [address] Sodium [Moles/Vol] 139 mmol/L Normal 136-145 [facility] Comment on above: Performed By: #### C MP, PTT, CBC, PT, HS TROP, CK #### [address] Urea nitrogen [Mass/Vol] 27 mg/dL High 7-25 [facility] Comment on above: Performed By: #### C MP, PTT, CBC, PT, HS TROP, CK #### [address] Complete Blood Count Auto Di ffon 04-15-2024 Basophils (Bld) [#/Vol] 0.0 10*3/uL Normal 0.0-0.2 [facility] Comment on above: Result Comment: PERF ORMED BY: [place] [address] PATHOLOGIST MACHINE SPECIALIST EDMOND NORTH M.D. Performed By: #### C MP, PTT, CBC, PT, HS TROP, CK #### [address] Basophils/100 WBC (Bld) 0.8 % Normal . [facility] Comment on above: Performed By: #### C MP, PTT, CBC, PT, HS TROP, CK #### [address] Eosinophils (Bld) [#/Vol] 0.4 10*3/uL Normal 0.0-0.45 [facility] Comment on above: Performed By: #### C MP, PTT, CBC, PT, HS TROP, CK #### [address] Eosinophils/100 WBC (Bld) 6.8 % Normal . [facility] Comment on above: Performed By: #### C MP, PTT, CBC, PT, HS TROP, CK #### [address] Erythrocyte distribution width (RBC) [Ratio] 13.1 % Normal 11.9-15.3 [facility] Comment on above: Performed By: #### C MP, PTT, CBC, PT, HS TROP, CK #### [address] Hematocrit (Bld) [Volume fraction] 38.1 % Normal 34.0-46.4 [facility] Comment on above: Performed By: #### C MP, PTT, CBC, PT, HS TROP, CK #### [address] Hemoglobin (Bld) [Mass/Vol] 12.5 g/dL Normal 11.8-15.4 [facility] Comment on above: Performed By: #### C MP, PTT, CBC, PT, HS TROP, CK #### [address] Lymphocytes (Bld) [#/Vol] 2.0 10*3/uL Normal 1.00-4.8 [facility] Comment on above: Performed By: #### C MP, PTT, CBC, PT, HS TROP, CK #### [address] Lymphocytes/100 WBC (Bld) 36.1 % Normal . [facility] Comment on above: Performed By: #### C MP, PTT, CBC, PT, HS TROP, CK #### [address] MCH (RBC) [Entitic mass] 29.3 pg Normal 24.7-34.3 [facility] Comment on above: Performed By: #### C MP, PTT, CBC, PT, HS TROP, CK #### [address] MCV (RBC) [Entitic vol] 89.5 fL Normal 80-100 [facility] Comment on above: Performed By: #### C MP, PTT, CBC, PT, HS TROP, CK #### [address] Mean Corpuscular HGB Conc 32.8 g/dL Normal 32.0-35.0 [facility] Comment on above: Performed By: #### C MP, PTT, CBC, PT, HS TROP, CK #### [address] Monocytes (Bld) [#/Vol] 0.6 10*3/uL Normal 0.0-0.8 [facility] Comment on above: Performed By: #### C MP, PTT, CBC, PT, HS TROP, CK #### [address] Monocytes/100 WBC (Bld) 9.8 % Normal . [facility] Comment on above: Performed By: #### C MP, PTT, CBC, PT, HS TROP, CK #### [address] Neutrophils (Bld) [#/Vol] 2.6 10*3/uL Normal 1.8-7.7 [facility] Comment on above: Performed By: #### C MP, PTT, CBC, PT, HS TROP, CK #### [address] Neutrophils/100 WBC (Bld) 46.5 % Normal . [facility] Comment on above: Performed By: #### C MP, PTT, CBC, PT, HS TROP, CK #### [address] NRBC% 0.2 /100{WBC} Normal 0-0.5 [facility] Comment on above: Performed By: #### C MP, PTT, CBC, PT, HS TROP, CK #### [address] Platelet mean volume (Bld) [Entitic vol] 8.0 fL Normal 6.3-10.7 [facility] Comment on above: Performed By: #### C MP, PTT, CBC, PT, HS TROP, CK #### [facility] [address] Platelets (Bld) [#/Vol] 193 10*3/uL Normal 150-450 [facility] Comment on above: Performed By: #### C MP, PTT, CBC, PT, HS TROP, CK #### [facility] [address] RBC (Bld) [#/Vol] 4.25 10*6/uL Normal 3.60-5.00 [facility] Comment on above: Performed By: #### C MP, PTT, CBC, PT, HS TROP, CK #### [address] WBC (Bld) [#/Vol] 5.6 10*3/uL Normal 3.8-11.6 [facility] Comment on above: Performed By: #### C MP, PTT, CBC, PT, HS TROP, CK #### [address] MR head/brain wo conon 04-15 MR head/brain wo con [facility] Main [place] [address] [place] [address] MRI Report Signed Patient: Karuna Reynaga MR#: [id number] 289 : 1945 Acct:[id number] Age/Sex: 79 / F ADM Date: 04/13/24 Loc: Room: [address] [place] [address] Type: ADM IN Attending Dr: Renan Murguia [...] Elizabeth Hoskins M.D.04/15/2024 8:11 PM Dictation Location: [place] [address] Transcribed By: [facility] 04/15/242010 Dictated By: Elizabeth Hoskins MD 04/15/242006 Signed By: 04/15/242010 Normal [facility] Activated partial thrombopla stin time (aPTT) in platelet poor plasma by coagulation aOrdered By: Albert Palacio on 04-14-2024 aPTT Coag (PPP) [Time] 77.1 s High 25.1-36.5 [facility] Comment on above: A hematocrit value g reater than 55% may lead to inaccurate results in coagulation testing. Patients having hematocrit values >55% require a special collection tube for coagulation studies. Please contact the laboratory at [phone] for redraw instructions. Basic Metabolic Panelon 04-05 Anion gap [Moles/Vol] 10.1 mmol/L Normal 6.0-15.0 [facility] Comment on above: Performed By: #### C MP, PTT, CBC, PT, HS TROP, CK #### [facility] [address] [place] [id number] [facility] Calcium [Mass/Vol] 8.8 mg/dL Normal 8.6-10.3 [facility] Comment on above: Performed By: #### C MP, PTT, CBC, PT, HS TROP, CK #### [facility] [address] [place] [id number] [place] Chloride [Moles/Vol] 108 mmol/L High 98-107 [facility] Comment on above: Performed By: #### C MP, PTT, CBC, PT, HS TROP, CK #### [facility] [address] [place] [address] [place] CO2 [Moles/Vol] 25.6 mmol/L Normal 21.0-31.0 [facility] Comment on above: Performed By: #### C MP, PTT, CBC, PT, HS TROP, CK #### [facility] [address] [place] [address] [place] Creatinine [Mass/Vol] 0.70 mg/dL Normal 0.60-1.20 [facility] Comment on above: Performed By: #### C MP, PTT, CBC, PT, HS TROP, CK #### [facility] [address] [place] [address] [place] Creatinine Clr Calc Pharmacy 48.69 Normal [facility] Comment on above: Performed By: #### C MP, PTT, CBC, PT, HS TROP, CK #### [facility] [address] [place] [address] [place] GFR/1.73 sq M.predicted MDRD (S/P/Bld) [Vol rate/Area] mL/min/{1.73_m2} Normal [facility] Comment on above: Performed By: #### C MP, PTT, CBC, PT, HS TROP, CK #### [facility] [address] [place] [address] [place] Glucose [Mass/Vol] 102 mg/dL High 70-100 [facility] Comment on above: Result Comment: [place] Glucose Reference Range is dependent on time and content of last meal. Glucose of more than 200 mg/dL in a nonstressed, ambulatory subject supports the diagnosis of Diabetes Mellitus. ADA recommended reference range Performed By: #### C MP, PTT, CBC, PT, HS TROP, CK #### [facility] [address] [place] [address] [place] Potassium [Moles/Vol] 3.7 mmol/L Normal 3.5-5.1 [facility] Comment on above: Performed By: #### C MP, PTT, CBC, PT, HS TROP, CK #### [facility] [address] [place] [address] [place] Sodium [Moles/Vol] 140 mmol/L Normal 136-145 [facility] Comment on above: Performed By: #### C MP, PTT, CBC, PT, HS TROP, CK #### [facility] [address] Urea nitrogen [Mass/Vol] 20 mg/dL Normal 7-25 [facility] Comment on above: Performed By: #### C MP, PTT, CBC, PT, HS TROP, CK #### [facility] [address] Bilirubin Test strip Ql (U)O rdered By: Ashley Dickerson on 04-14-2024 Bilirubin Ql (U) Negative Negative [facility] Cholesterol [Mass/volume] in Serum or PlasmaOrdered By: Albert Palacio on 04-14-2024 Cholesterol [Mass/Vol] 154 mg/dL Normal 140-200 [facility] Comment on above: Chol less than 200 m g/dl low riskChol 201-239 mg/dl borderline riskChol 240 mg/dl and greater high risk Result Comment: Chol less than 200 mg/dl low risk Chol 201-239 mg/dl borderline risk Chol 240 mg/dl and greater high risk Performed By: #### C MP, PTT, CBC, PT, HS TROP, CK #### [facility] [address] Cholesterol in LDL Calc [Mas s/Vol]Ordered By: Albert Palacio on 04-14-2024 Cholesterol in LDL [Mass/Vol] 82 mg/dL 0-100 [facility] Comment on above: LDL ATP III CLASSIFI CATIONLDL less than 100 mg/dL OptimalLDL 100-129 mg/dL Near or above optimalLDL 130-159 mg/dL Borderline highLDL 160-189 mg/dL HighLDL greater than 189 mg/dL Very high Cholesterol in VLDL Calc [Ma ss/Vol]Ordered By: Albert Palacio on 04-14-2024 Cholesterol in VLDL [Mass/Vol] 12 mg/dL [facility] Color of Urine by AutoOrdere d By: Ashley Dickerson on 04-14-2024 Color (U) Colorless Normal Yellow [facility] Comment on above: Order Comment: Name Collection Type:: Clean-Voided Midstream Performed By: #### C MP, PTT, CBC, PT, HS TROP, CK #### [address] Complete Blood Count Auto Di ffon 04-14-2024 Basophils (Bld) [#/Vol] 0.0 10*3/uL Normal 0.0-0.2 [facility] Comment on above: Result Comment: PERF ORMED BY: [place] [address] PATHOLOGIST MACHINE SPECIALIST EDMOND NORTH M.D. Performed By: #### C MP, PTT, CBC, PT, HS TROP, CK #### [address] Basophils/100 WBC (Bld) 0.7 % Normal . [facility] Comment on above: Performed By: #### C MP, PTT, CBC, PT, HS TROP, CK #### [address] Eosinophils (Bld) [#/Vol] 0.4 10*3/uL Normal 0.0-0.45 [facility] Comment on above: Performed By: #### C MP, PTT, CBC, PT, HS TROP, CK #### [address] Eosinophils/100 WBC (Bld) 5.2 % Normal . [facility] Comment on above: Performed By: #### C MP, PTT, CBC, PT, HS TROP, CK #### [address] Erythrocyte distribution width (RBC) [Ratio] 12.8 % Normal 11.9-15.3 [facility] Comment on above: Performed By: #### C MP, PTT, CBC, PT, HS TROP, CK #### [address] Hematocrit (Bld) [Volume fraction] 37.4 % Normal 34.0-46.4 [facility] Comment on above: Performed By: #### C MP, PTT, CBC, PT, HS TROP, CK #### [address] Hemoglobin (Bld) [Mass/Vol] 12.4 g/dL Normal 11.8-15.4 [facility] Comment on above: Performed By: #### C MP, PTT, CBC, PT, HS TROP, CK #### [address] Lymphocytes (Bld) [#/Vol] 2.3 10*3/uL Normal 1.00-4.8 [facility] Comment on above: Performed By: #### C MP, PTT, CBC, PT, HS TROP, CK #### [address] Lymphocytes/100 WBC (Bld) 32.0 % Normal . [facility] Comment on above: Performed By: #### C MP, PTT, CBC, PT, HS TROP, CK #### [address] MCH (RBC) [Entitic mass] 29.4 pg Normal 24.7-34.3 [facility] Comment on above: Performed By: #### C MP, PTT, CBC, PT, HS TROP, CK #### [address] MCV (RBC) [Entitic vol] 88.8 fL Normal 80-100 [facility] Comment on above: Performed By: #### C MP, PTT, CBC, PT, HS TROP, CK #### [address] Mean Corpuscular HGB Conc 33.1 g/dL Normal 32.0-35.0 [facility] Comment on above: Performed By: #### C MP, PTT, CBC, PT, HS TROP, CK #### [address] Monocytes (Bld) [#/Vol] 0.5 10*3/uL Normal 0.0-0.8 [facility] Comment on above: Performed By: #### C MP, PTT, CBC, PT, HS TROP, CK #### [address] Monocytes/100 WBC (Bld) 6.8 % Normal . [facility] Comment on above: Performed By: #### C MP, PTT, CBC, PT, HS TROP, CK #### [address] Neutrophils (Bld) [#/Vol] 3.9 10*3/uL Normal 1.8-7.7 [facility] Comment on above: Performed By: #### C MP, PTT, CBC, PT, HS TROP, CK #### [address] Neutrophils/100 WBC (Bld) 55.3 % Normal . [facility] Comment on above: Performed By: #### C MP, PTT, CBC, PT, HS TROP, CK #### [address] NRBC% 0.1 /100{WBC} Normal 0-0.5 [facility] Comment on above: Performed By: #### C MP, PTT, CBC, PT, HS TROP, CK #### [address] Platelet mean volume (Bld) [Entitic vol] 8.3 fL Normal 6.3-10.7 [facility] Comment on above: Performed By: #### C MP, PTT, CBC, PT, HS TROP, CK #### [place] [address] [place] Platelets (Bld) [#/Vol] 208 10*3/uL Normal 150-450 [facility] Comment on above: Performed By: #### C MP, PTT, CBC, PT, HS TROP, CK #### [address] RBC (Bld) [#/Vol] 4.22 10*6/uL Normal 3.60-5.00 [facility] Comment on above: Performed By: #### C MP, PTT, CBC, PT, HS TROP, CK #### [place] [address] [place] WBC (Bld) [#/Vol] 7.1 10*3/uL Normal 3.8-11.6 [facility] Comment on above: Performed By: #### C MP, PTT, CBC, PT, HS TROP, CK #### [facility] [address] [place] [id number] [facility] echo transthoracicon [facility] echo transthoracic [facility] Main [place] [address] [place] [address] Echocardiogram Signed Patient: Karuna Reynaga MR#: [id number] 289 : 1945 Acct:[id number] Age/Sex: 79 / F ADM Date: 04/13/24 Loc: Room: [address] [place] [address] Type: ADM IN Attending Dr: Renan Murguia MD Ordering Provider: Albert Palacio DO Date of Service: 04/13/2407/29/1913 [facility] echo transthoracic: troponin elevation Copies to: MD [...] mmHg Transcribed By: SCV Performed At: 04/14/24 9490 Signed By: Praveena Garcia MD 04/14/24 7122 Normal [facility] Glucose [Mass/volume] in Uri ne by Test stripOrdered By: Ashley Dickerson on 04-14-2024 Glucose Test strip (U) [Mass/Vol] Normal mg/dL Normal [facility] Hemoglobin Test strip Ql (U) Ordered By: Ashley Dickerson on 04-14-2024 Hemoglobin Ql (U) Negative Negative [facility] Ketones [Presence] in Urine by Test stripOrdered By: Ashley Dickerson on 04-14-2024 Ketones Ql (U) Negative Normal Negative [facility] Comment on above: Order Comment: Name Collection Type:: Clean-Voided Midstream Performed By: #### C MP, PTT, CBC, PT, HS TROP, CK #### [facility] [address] Leukocyte esterase [Presence ] in Urine by Test stripOrdered By: Ashley Dickerson on 04-14-2024 Leukocyte esterase Test strip Ql (U) Negative Normal Negative [facility] Comment on above: Order Comment: Name Collection Type:: Clean-Voided Midstream Performed By: #### C MP, PTT, CBC, PT, HS TROP, CK #### [facility] [address] Lipid Panelon 04-14-2024 LDL Cholesterol,Calculated 82 mg/dL Normal 0-100 [facility] Comment on above: Result Comment: LDL ATP III CLASSIFICATION LDL less than 100 mg/dL Optimal LDL 100-129 mg/dL Near or above optimal LDL 130-159 mg/dL Borderline high LDL 160-189 mg/dL High LDL greater than 189 mg/dL Very high Performed By: #### C MP, PTT, CBC, PT, HS TROP, CK #### [facility] [address] [place] [id number] [place] Triglyceride w/Reflex 64 mg/dL Normal 0-149 [facility] Comment on above: Result Comment: TRIG ATP III CLASSIFICATION TRIG less than 150 mg/dL Normal TRIG 150-199 mg/dL Borderline high TRIG 200-500 mg/dL High TRIG greater than 500 mg/dL Very high Standard traceable to the Center for Disease Conrtrol and Prevention (CDC) test method. Performed By: #### C MP, PTT, CBC, PT, HS TROP, CK #### [facility] [address] VLDL CHOLESTEROL 12 mg/dL Normal [facility] Comment on above: Performed By: #### C MP, PTT, CBC, PT, HS TROP, CK #### [facility] [address] Magnesium [Mass/volume] in S sun or PlasmaOrdered By: Albert Palacio on 04-14-2024 Magnesium [Mass/Vol] 1.9 mg/dL Normal 1.9-2.7 [facility] Comment on above: Performed By: #### C MP, PTT, CBC, PT, HS TROP, CK #### [address] Nitrite Test strip Ql (U)Ord ered By: Ashley Dickerson on 04-14-2024 Nitrite Ql (U) Negative Negative [facility] Partial Thromboplastin Timeo n 04-14-2024 aPTT Coag (Bld) [Time] 77.1 s High 25.1-36.5 [facility] Comment on above: Order Comment: List the anticoagulant: HEPARIN, UNFRACTIONATED Result Comment: A he matocrit value greater than 55% may lead to inaccurate results in coagulation testing. Patients having hematocrit values >55% require a special collection tube for coagulation studies. Please contact the laboratory at [phone] for redraw instructions. PERFORMED BY: [place] [address] PATHOLOGIST MACHINE SPECIALIST EDMOND NORTH M.D. Performed By: #### C MP, PTT, CBC, PT, HS TROP, CK #### [address] aPTT Coag (Bld) [Time] 141.3 s Off scale high 25.1-36.5 [facility] Comment on above: Result Comment: Crit ical value result called at 0922 on 04/14/24 A hematocrit value greater than 55% may lead to inaccurate results in coagulation testing. Patients having hematocrit values >55% require a special collection tube for coagulation studies. Please contact the laboratory at [phone] for redraw instructions. PERFORMED BY: [place] [address] PATHOLOGIST MACHINE SPECIALIST EDMOND NORTH M.D. Performed By: #### C MP, PTT, CBC, PT, HS TROP, CK #### [address] aPTT Coag (Bld) [Time] 50.2 s High 25.1-36.5 [facility] Comment on above: Result Comment: A he matocrit value greater than 55% may lead to inaccurate results in coagulation testing. Patients having hematocrit values >55% require a special collection tube for coagulation studies. Please contact the laboratory at [phone] for redraw instructions. PERFORMED BY: [place] [address] PATHOLOGIST MACHINE SPECIALIST EDMOND NORTH M.D. Performed By: #### C MP, PTT, CBC, PT, HS TROP, CK #### [place] [id number] [facility] Protein Test strip (U) [Mass /Vol]Ordered By: Ashley Dickerson on 04-14-2024 Protein (U) [Mass/Vol] Negative Negative [facility] Serum or plasma high density lipoprotein (HDL) cholesterol measurementOrdered By: Albert Palacio on 04-14-2024 Cholesterol in HDL [Mass/Vol] 59 mg/dL Normal 23-92 [facility] Comment on above: HDL CHOL ATP-III CLA SSIFICATION Cardiovascular RiskHDL > or equal to 60 mg/dL LOWHDL < 40 mg/dL HIGH Result Comment: HDL CHOL ATP-III CLASSIFICATION Cardiovascular Risk HDL > or equal to 60 mg/dL LOW HDL < 40 mg/dL HIGH Performed By: #### C MP, PTT, CBC, PT, HS TROP, CK #### [place] [id number] [facility] Serum or plasma total choles terol/high density lipoprotein (HDL) cholesterol mass ratOrdered By: Albert Palacio on 04-14-2024 Cholesterol.total/Chol esterol in HDL [Mass ratio] 2.6 {ratio} Normal <5.0 [facility] Comment on above: Result Comment: PERF ORMED BY: [place] [address] PATHOLOGIST MACHINE SPECIALIST EDMOND NORTH M.D. Performed By: #### C MP, PTT, CBC, PT, HS TROP, CK #### [facility] [address] [place] [address] [facility] Specific gravity Test strip (U) [Rel density]Ordered By: Ashley Dickerson on 04-14-2024 Specific gravity (U) [Rel density] 1.011 1.001-1.03 0 [facility] Triglyceride [Mass/volume] i n Serum or PlasmaOrdered By: Albert Palacio on 04-14-2024 Triglyceride [Mass/Vol] 64 mg/dL 0-149 [facility] Comment on above: TRIG ATP III CLASSIF ICATIONTRIG less than 150 mg/dL NormalTRIG 150-199 mg/dL Borderline highTRIG 200-500 mg/dL High TRIG greater than 500 mg/dL Very highStandard traceable to the Center for Disease Conrtrol and Prevention (CDC) test method. Troponin I High Sensitivityo n 04-14-2024 Troponin I High Sensitivity 436.4 pg/mL Off scale high 0.0-15.0 [facility] Comment on above: Result Comment: Crit ical Result : Called to and read back by: BRET HARKINS at: 04/14/2024 06:14:01 by:SOUMYA PERFORMED BY: [facility] [address] [facility] [place] [address] PATHOLOGIST MACHINE SPECIALIST EDMOND NORTH M.D. Performed By: #### C MP, PTT, CBC, PT, HS TROP, CK #### [facility] [address] [place] [id number] [facility] Troponin I.cardiac [Mass/vol ume] in Serum or Plasma by Detection limit <= 0.01 ng/Ordered By: Albert Palacio on 04-14-2024 Troponin I.cardiac DL <= 0.01 ng/mL [Mass/Vol] 436.4 pg/mL High 0.0-15.0 [facility] Comment on above: Critical Result : Ca lled to and read back by: BRET HARKINS at: 04/14/2024 06:14:01 by:SOUMYA Urinalysison 04-14-2024 Bilirubin,Urine Negative Normal Negative [facility] Comment on above: Order Comment: Name Collection Type:: Clean-Voided Midstream Performed By: #### C MP, PTT, CBC, PT, HS TROP, CK #### [address] Glucose Ql (U) Normal Normal Normal [facility] Comment on above: Order Comment: Name Collection Type:: Clean-Voided Midstream Performed By: #### C MP, PTT, CBC, PT, HS TROP, CK #### [place] [address] [place] Nitrite,Urine Negative Normal Negative [facility] Comment on above: Order Comment: Name Collection Type:: Clean-Voided Midstream Performed By: #### C MP, PTT, CBC, PT, HS TROP, CK #### [address] Occult Blood,Urine Negative Normal Negative [facility] Comment on above: Order Comment: Name Collection Type:: Clean-Voided Midstream Result Comment: PERF ORMED BY: [place] [address] PATHOLOGIST MACHINE SPECIALIST EDMOND NORTH M.D. Performed By: #### C MP, PTT, CBC, PT, HS TROP, CK #### [address] Protein,Urine Negative Normal Negative [facility] Comment on above: Order Comment: Name Collection Type:: Clean-Voided Midstream Performed By: #### C MP, PTT, CBC, PT, HS TROP, CK #### [place] [address] [place] Specificy [place],Urine 1.011 Normal 1.001-1.03 0 [facility] Comment on above: Order Comment: Name Collection Type:: Clean-Voided Midstream Performed By: #### C MP, PTT, CBC, PT, HS TROP, CK #### [facility] [address] Urobilinogen,Urine Normal Normal Normal [facility] Comment on above: Order Comment: Name Collection Type:: Clean-Voided Midstream Performed By: #### C MP, PTT, CBC, PT, HS TROP, CK #### [facility] [address] Urine appearanceOrdered By: Ashley Dickerson on 04-14-2024 Appearance (U) Clear Normal Clear [facility] Comment on above: Order Comment: Name Collection Type:: Clean-Voided Midstream Performed By: #### C MP, PTT, CBC, PT, HS TROP, CK #### [address] Urobilinogen Test strip (U) [Mass/Vol]Ordered By: Ashley Dickerson on 04-14-2024 Urobilinogen (U) [Mass/Vol] Normal mg/dL Normal [facility] XR pre/post mri xrayon 04-14 XR pre/post mri xray [facility] Main [place] [address] [place] [address] XRay Report Signed Patient: Karuna Reynaga MR#: [id number] 289 : 1945 Acct:[id number] Age/Sex: 79 / F ADM Date: 04/13/24 Loc: Room: [address] [place] [address] Type: ADM IN Attending Dr: Renan Murguia [...] Jamal Bird M.D.04/14/2024 8:55 PM Dictation Location: [place] [address] Transcribed By: [facility] 04/14/242054 Dictated By: Jamal Bird DO 04/14/242053 Signed By: 04/14/242054 Normal [facility] pH of Urine by Test stripOrd ered By: Ashley Dickerson on 04-14-2024 pH (U) 6.0 [pH] Normal 5.0-9.0 [facility] Comment on above: Order Comment: Name Collection Type:: Clean-Voided Midstream Performed By: #### C MP, PTT, CBC, PT, HS TROP, CK #### [facility] [address] Activated partial thrombopla stin time (aPTT) in platelet poor plasma by coagulation aOrdered By: Ashley Dickerson on 04-13-2024 aPTT Coag (PPP) [Time] 28.3 s 25.1-36.5 [facility] Comment on above: A hematocrit value g reater than 55% may lead to inaccurate results in coagulation testing. Patients having hematocrit values >55% require a special collection tube for coagulation studies. Please contact the laboratory at [phone] for redraw instructions. Alanine aminotransferase [En zymatic activity/volume] in Serum or PlasmaOrdered By: Ashley Dickerson on 04-13-2024 ALT [Catalytic activity/Vol] 19 U/L Normal 7-52 [facility] Comment on above: Performed By: #### C MP, PTT, CBC, PT, HS TROP, CK #### [facility] [address] [place] [id number] [place] Albumin [Mass/volume] in Ser um or Plasma by Bromocresol green (BCG) dye binding methoOrdered By: Ashley Dickerson on 04-13-2024 Albumin BCG dye [Mass/Vol] 3.6 g/dL 3.5-5.7 [facility] Alkaline phosphatase [Enzyma tic activity/volume] in Serum or PlasmaOrdered By: Ashley Dickerson on 04-13-2024 ALP [Catalytic activity/Vol] 48 U/L Normal 34-104 [facility] Comment on above: Performed By: #### C MP, PTT, CBC, PT, HS TROP, CK #### [facility] [address] [place] [id number] [place] Aspartate aminotransferase [ Enzymatic activity/volume] in Serum or PlasmaOrdered By: Ashley Dickerson on 04-13-2024 AST [Catalytic activity/Vol] 19 U/L Normal 13-39 [facility] Comment on above: Performed By: #### C MP, PTT, CBC, PT, HS TROP, CK #### [address] Automated basophil %Ordered By: Ashley Dickerson on 04-13-2024 Basophils/100 WBC (Bld) 0.8 % Normal . [facility] Comment on above: Performed By: #### C MP, PTT, CBC, PT, HS TROP, CK #### [address] Automated basophil countOrde red By: Ashley Dickerson on 04-13-2024 Basophils (Bld) [#/Vol] 0.1 10*3/uL Normal 0.0-0.2 [facility] Comment on above: Result Comment: PERF ORMED BY: [place] [address] PATHOLOGIST MACHINE SPECIALIST EDMOND NORTH M.D. Performed By: #### C MP, PTT, CBC, PT, HS TROP, CK #### [address] Automated blood monocyte cou ntOrdered By: Ashley Dickerson on 04-13-2024 Monocytes (Bld) [#/Vol] 0.5 10*3/uL Normal 0.0-0.8 [facility] Comment on above: Performed By: #### C MP, PTT, CBC, PT, HS TROP, CK #### [address] Automated eosinophil %Ordere d By: Ashley Dickerson on 04-13-2024 Eosinophils/100 WBC (Bld) 4.3 % Normal . [facility] Comment on above: Performed By: #### C MP, PTT, CBC, PT, HS TROP, CK #### [address] Automated eosinophil countOr dered By: Ashley Dickerson on 04-13-2024 Eosinophils (Bld) [#/Vol] 0.3 10*3/uL Normal 0.0-0.45 [facility] Comment on above: Performed By: #### C MP, PTT, CBC, PT, HS TROP, CK #### [address] Automated monocyte %Ordered By: Ashley Dickerson on 04-13-2024 Monocytes/100 WBC (Bld) 7.4 % Normal . [facility] Comment on above: Performed By: #### C MP, PTT, CBC, PT, HS TROP, CK #### [address] Automated neutrophil %Ordere d By: Ashley Dickerson on 04-13-2024 Neutrophils/100 WBC (Bld) 58.0 % Normal . [facility] Comment on above: Performed By: #### C MP, PTT, CBC, PT, HS TROP, CK #### [address] BNP ser/plasOrdered By: Howard Palacio on 04-13-2024 Natriuretic peptide B (Bld) [Mass/Vol] 12.0 pg/mL Normal 5-100 [facility] Comment on above: Order Comment: Comme nt add on to ER labs Result Comment: PERF ORMED BY: [place] [address] PATHOLOGIST MACHINE SPECIALIST EDMOND NORTH M.D. Performed By: #### C MP, PTT, CBC, PT, HS TROP, CK #### [address] Bilirubin.total [Mass/volume ] in Serum or PlasmaOrdered By: Ashley Dickerson on 04-13-2024 Bilirubin [Mass/Vol] 0.4 mg/dL Normal 0.3-1.0 [facility] Comment on above: Performed By: #### C MP, PTT, CBC, PT, HS TROP, CK #### [address] angio neckon 04-13-2024 CT angio neck [facility] Main [place] [address] [place] [address] CT Scan Report Signed Patient: Karuna Reynaga MR#: [id number] 289 : 1945 Acct:[id number] Age/Sex: 79 / F ADM Date: 04/13/24 Loc: ER Room: Type: PRE ER Attending Dr: Copies to: Ashley Dickerson APRN Ordering Provider: Ashley Dickerson APRN Date of Service: 04/13/24 CT/CT angio head: acute stroke/neuro deficits ([id number]) CT/CT angio neck: acute stroke/neuro deficits CTA [...] Jamal Bird M.D.04/13/2024 4:31 PM Dictation Location: [place] [address] Transcribed By: [facility] 04/13/24 1631 Dictated By: Jamal Bird DO 04/13/24 1626 Signed By: 04/13/24 1631 Normal [facility] CT head stroke alert wo nicolleo n 04-13-2024 CT head stroke alert wo [facility] Main [place] [address] [place] [address] [address] [address] Scan Report Signed Patient: Karuna Reynaga MR#: [id number] 289 : 1945 Acct:[id number] Age/Sex: 79 / F ADM Date: 04/13/24 [...] Jamal Bird M.D.04/13/2024 4:11 PM Dictation Location: [place] [address] Transcribed By: [facility] 04/13/24 1611 Dictated By: Jamal Bird DO 04/13/24 1607 Signed By: 04/13/24 1611 Normal [facility] Calcium [Mass/volume] in Ser um or PlasmaOrdered By: Ashley Dickerson on 04-13-2024 Calcium [Mass/Vol] 8.7 mg/dL Normal 8.6-10.3 [facility] Comment on above: Performed By: #### C MP, PTT, CBC, PT, HS TROP, CK #### [facility] [address] [place] [address] Capillary blood glucose marce urement by glucometer (mass/volume)Ordered By: Ashley Dickerson on 04-13-2024 Glucose [Mass/Vol] 167 mg/dL Normal [facility] Comment on above: Random Glucose Refer ence Range is dependent on time and content of last meal. Glucose of more than 200 mg/dL in a nonstressed, ambulatory subject supports the diagnosis of Diabetes Mellitus. Result Comment: [place] Glucose Reference Range is dependent on time and content of last meal. Glucose of more than 200 mg/dL in a nonstressed, ambulatory subject supports the diagnosis of Diabetes Mellitus. Performed By: #### C MP, PTT, CBC, PT, HS TROP, CK #### [address] Carbon dioxide, total [Moles /volume] in Serum or PlasmaOrdered By: Ashley Dickerson on 04-13-2024 CO2 [Moles/Vol] 28.0 mmol/L Normal 21.0-31.0 [facility] Comment on above: Performed By: #### C MP, PTT, CBC, PT, HS TROP, CK #### [address] Chloride [Moles/volume] in S sun or PlasmaOrdered By: Ashley Dickerson on 04-13-2024 Chloride [Moles/Vol] 105 mmol/L Normal 98-107 [facility] Comment on above: Performed By: #### C MP, PTT, CBC, PT, HS TROP, CK #### [address] Complete Blood Count Auto Di ffon 04-13-2024 Mean Corpuscular HGB Conc 32.8 g/dL Normal 32.0-35.0 [facility] Comment on above: Performed By: #### C MP, PTT, CBC, PT, HS TROP, CK #### [place] [address] [place] Monocytes/100 WBC (Bld) 18.47 % Normal 0.00-20.00 [facility] Comment on above: Performed By: #### C MP, PTT, CBC, PT, HS TROP, CK #### [place] [address] [place] NRBC% 0.1 /100{WBC} Normal 0-0.5 [facility] Comment on above: Performed By: #### C MP, PTT, CBC, PT, HS TROP, CK #### [address] Comprehensive Metabolic Pane geovanny 04-13-2024 Albumin [Mass/Vol] 3.6 g/dL Normal 3.5-5.7 [facility] Comment on above: Performed By: #### C MP, PTT, CBC, PT, HS TROP, CK #### [address] Creatinine Clr Calc Pharmacy 42.88 Normal [facility] Comment on above: Result Comment: PERF ORMED BY: [place] [address] PATHOLOGIST MACHINE SPECIALIST EDMOND NORTH M.D. Performed By: #### C MP, PTT, CBC, PT, HS TROP, CK #### [address] GFR/1.73 sq M.predicted MDRD (S/P/Bld) [Vol rate/Area] mL/min/{1.73_m2} Normal [facility] Comment on above: Performed By: #### C MP, PTT, CBC, PT, HS TROP, CK #### [address] Creatine Kinaseon 04-13-2024 CK [Catalytic activity/Vol] 51 U/L Normal 30-223 [facility] Comment on above: Performed By: #### C MP, PTT, CBC, PT, HS TROP, CK #### [address] Creatine kinase [Enzymatic a ctivity/volume] in Serum or PlasmaOrdered By: Albert Palacio on 04-13-2024 CK [Catalytic activity/Vol] 56 U/L Normal 30-223 [facility] Comment on above: Performed By: #### C MP, PTT, CBC, PT, HS TROP, CK #### [address] Creatinine [Mass/volume] in Serum or PlasmaOrdered By: Ashley Dickerson on 04-13-2024 Creatinine [Mass/Vol] 0.92 mg/dL Normal 0.60-1.20 [facility] Comment on above: Performed By: #### C MP, PTT, CBC, PT, HS TROP, CK #### [address] [address] [facility] ECG 12 lead ECGon 04-13-2024 ECG 12 lead ECG [facility] Main [place] [id number] Electrocardiograph Report Signed Patient: Karuna Reynaga MR#: [id number] 289 : 1945 Acct:[id number] Age/Sex: 79 / F ADM Date: 04/13/24 Loc: Room: [address] [place] [address] Type: DIS IN Attending Dr: Renan Murguia [...] previous ECGs available Confirmed by NICHO IVY [facility] [place] ([id number]) on 04/19/2024 2:11:00 PM Referred By: Electronically Signed By:GILBERT TORRE MD [facility] Transcribed By: MUS Signed By Gilbert Torre MD, [facility] 04/19/24 1411 Normal [facility] ECG 12 lead ECG [facility] Main [address] [address] Electrocardiograph Report Signed Patient: Karuna Reynaga MR#: [id number] 289 : 1945 Acct:[id number] Age/Sex: 79 / F ADM Date: 04/13/24 Loc: Room: [address] [place] [address] Type: ADM IN Attending Dr: Albert Palacio [...] Simone Navarro MD 04/14/24 0024 Normal [facility] Erythrocyte distribution wid th [Ratio] by Automated countOrdered By: Ashley Dickerson on 04-13-2024 Erythrocyte distribution width (RBC) [Ratio] 12.7 % Normal 11.9-15.3 [facility] Comment on above: Performed By: #### C MP, PTT, CBC, PT, HS TROP, CK #### [facility] [address] [place] [address] Erythrocytes [#/volume] in B lood by Automated countOrdered By: Ashley Dickerson on 04-13-2024 RBC (Bld) [#/Vol] 4.32 10*6/uL Normal 3.60-5.00 [facility] Comment on above: Performed By: #### C MP, PTT, CBC, PT, HS TROP, CK #### [facility] [address] [place] [address] Glucose Poct Glucometerson 0 04-13-2024 Commemt1 Glu2: Cleaned Meter Normal [facility] Comment on above: Result Comment: PERF ORMED BY: [place] [address] PATHOLOGIST MACHINE SPECIALIST EDMOND NORTH M.D. Performed By: #### C MP, PTT, CBC, PT, HS TROP, CK #### [facility] [address] [place] [id number] [place] Glucose [Mass/volume] in Ser um or PlasmaOrdered By: Ashley Dickerson on 04-13-2024 Glucose [Mass/Vol] 173 mg/dL High 70-100 [facility] Comment on above: ADA recommended refe rence rangeRandom Glucose Reference Range is dependent on time and content of last meal. Glucose of more than 200 mg/dL in a nonstressed, ambulatory subject supports the diagnosis of Diabetes Mellitus. Result Comment: [place] om Glucose Reference Range is dependent on time and content of last meal. Glucose of more than 200 mg/dL in a nonstressed, ambulatory subject supports the diagnosis of Diabetes Mellitus. ADA recommended reference range Performed By: #### C MP, PTT, CBC, PT, HS TROP, CK #### [facility] [address] Hematocrit [Volume Fraction] of Blood by Automated countOrdered By: Ashley Dickerson on 04-13-2024 Hematocrit (Bld) [Volume fraction] 38.7 % Normal 34.0-46.4 [facility] Comment on above: Performed By: #### C MP, PTT, CBC, PT, HS TROP, CK #### [facility] [address] Hemoglobin [Mass/volume] in BloodOrdered By: Ashley Dickerson on 04-13-2024 Hemoglobin (Bld) [Mass/Vol] 12.7 g/dL Normal 11.8-15.4 [facility] Comment on above: Performed By: #### C MP, PTT, CBC, PT, HS TROP, CK #### [facility] [address] [place] [address] [place] INR in Platelet poor plasma by Coagulation assayOrdered By: Ashley Dickerson on 04-13-2024 INR Coag (PPP) [Relative time] 1.1 {INR} Normal [facility] Comment on above: INR Therapeutic [...] valves: 3 - 4.5 Performed By: #### C MP, PTT, CBC, PT, HS TROP, CK #### [facility] [address] [place] [address] [place] ISTAT XRay CREon 04-13-2024 ISTAT GFR 51.432 Normal [facility] Comment on above: Result Comment: PERF ORMED BY: [place] [address] PATHOLOGIST MACHINE SPECIALIST EDMOND NORTH M.D. Performed By: #### C MP, PTT, CBC, PT, HS TROP, CK #### [address] Leukocytes [#/volume] correc rob for nucleated erythrocytes in Blood by Automated counOrdered By: Ashley Dickerson on 04-13-2024 WBC corrected for nucl RBC Auto (Bld) [#/Vol] 6.3 10*3/uL 3.8-11.6 [facility] Leukocytes [#/volume] in Blo od by Automated countOrdered By: Ashley Dickerson on 04-13-2024 WBC (Bld) [#/Vol] 6.3 10*3/uL Normal 3.8-11.6 [facility] Comment on above: Performed By: #### C MP, PTT, CBC, PT, HS TROP, CK #### [facility] [address] [place] [address] [place] Lymphocytes [#/volume] in Bl ood by Automated countOrdered By: Ashley Dickerson on 04-13-2024 Lymphocytes (Bld) [#/Vol] 1.8 10*3/uL Normal 1.00-4.8 [facility] Comment on above: Performed By: #### C MP, PTT, CBC, PT, HS TROP, CK #### [address] Lymphocytes/100 leukocytes i n Blood by Automated countOrdered By: Ashley Dickerson on 04-13-2024 Lymphocytes/100 WBC (Bld) 29.5 % Normal . [facility] Comment on above: Performed By: #### C MP, PTT, CBC, PT, HS TROP, CK #### [facility] [address] MCH [Entitic mass] by Automa rob countOrdered By: Ashley Dickerson on 04-13-2024 MCH (RBC) [Entitic mass] 29.4 pg Normal 24.7-34.3 [facility] Comment on above: Performed By: #### C MP, PTT, CBC, PT, HS TROP, CK #### [address] MCHC Auto (RBC) [Mass/Vol]Or dered By: Ashley Dickerson on 04-13-2024 MCHC (RBC) [Mass/Vol] 32.8 g/dL 32.0-35.0 [facility] MCV [Entitic volume] by Auto mated countOrdered By: Ashley Dickerson on 04-13-2024 MCV (RBC) [Entitic vol] 89.6 fL Normal 80-100 [facility] Comment on above: Performed By: #### C MP, PTT, CBC, PT, HS TROP, CK #### [facility] [address] [place] [address] Monocyte distribution width [Entitic volume] in Blood by AutomatedOrdered By: Ashley Dickerson on 04-13-2024 Monocyte distribution width Auto (Bld) [Entitic vol] 18.47 % 0.00-20.00 [facility] Neutrophils [#/volume] in Bl ood by Automated countOrdered By: Ashley Dickerson on 04-13-2024 Neutrophils (Bld) [#/Vol] 3.6 10*3/uL Normal 1.8-7.7 [facility] Comment on above: Performed By: #### C MP, PTT, CBC, PT, HS TROP, CK #### [facility] [address] [place] [address] No Panel InformationOrdered By: Ashley Dickerson on 04-13-2024 Bedside Estimated GFR (eGFR) 51.432 [facility] Bedside Glucose Comment Glu2: cleaned meter [facility] Estimated GFR (CKD-EPI) > 60.0 mL/Min [facility] Creatinine Clearance (Chem 42.88 [facility] Nucleated erythrocytes [Pres ence] in Blood by Automated countOrdered By: Ashley Dickerson on 04-13-2024 Nucleated RBC Auto Ql (Bld) 0.1 /100{WBC} 0-0.5 [facility] Partial Thromboplastin Timeo n 04-13-2024 aPTT Coag (Bld) [Time] 28.3 s Normal 25.1-36.5 [facility] Comment on above: Result Comment: A he matocrit value greater than 55% may lead to inaccurate results in coagulation testing. Patients having hematocrit values >55% require a special collection tube for coagulation studies. Please contact the laboratory at [phone] for redraw instructions. PERFORMED BY: [place] [address] PATHOLOGIST MACHINE SPECIALIST EDMOND NORTH M.D. Performed By: #### C MP, PTT, CBC, PT, HS TROP, CK #### [facility] [address] [place] [address] Platelet mean volume [Entiti c volume] in Blood by Automated countOrdered By: Ashley Dickerson on 04-13-2024 Platelet mean volume (Bld) [Entitic vol] 7.8 fL Normal 6.3-10.7 [facility] Comment on above: Performed By: #### C MP, PTT, CBC, PT, HS TROP, CK #### [address] Platelets [#/volume] in Bloo d by Automated countOrdered By: Ashley Dickerson on 04-13-2024 Platelets (Bld) [#/Vol] 221 10*3/uL Normal 150-450 [facility] Comment on above: Performed By: #### C MP, PTT, CBC, PT, HS TROP, CK #### [facility] [address] Potassium [Moles/volume] in Serum or PlasmaOrdered By: Ashley Dickerson on 04-13-2024 Potassium [Moles/Vol] 4.1 mmol/L Normal 3.5-5.1 [facility] Comment on above: Performed By: #### C MP, PTT, CBC, PT, HS TROP, CK #### [facility] [address] Protein [Mass/volume] in Ser um or PlasmaOrdered By: Ashley Dickerson on 04-13-2024 Protein [Mass/Vol] 6.6 g/dL Normal 6.4-8.9 [facility] Comment on above: Performed By: #### C MP, PTT, CBC, PT, HS TROP, CK #### [address] Prothrombin time (PT)Ordered By: Ashley Dickerson on 04-13-2024 PT Coag (PPP) [Time] 12.5 s Normal 9.0-12.9 [facility] Comment on above: A hematocrit value g reater than 55% may lead to inaccurate results in coagulation testing. Patients having hematocrit values >55% require a special collection tube for coagulation studies. Please contact the laboratory at [phone] for redraw instructions. Result Comment: A he matocrit value greater than 55% may lead to inaccurate results in coagulation testing. Patients having hematocrit values >55% require a special collection tube for coagulation studies. Please contact the laboratory at [phone] for redraw instructions. Performed By: #### C MP, PTT, CBC, PT, HS TROP, CK #### [address] Serum globulin measurement b y calculation (mass/volume)Ordered By: Ashley Dickerson on 06-09-2024 Globulin (S) [Mass/Vol] 3.0 g/dL Normal [facility] Comment on above: Performed By: #### C MP, PTT, CBC, PT, HS TROP, CK #### [address] Serum or plasma albumin/glob ulin mass ratioOrdered By: Ashley Dickerson on 04-13-2024 Albumin/Globulin [Mass ratio] 1.2 {ratio} [facility] Comment on above: Performed By: #### C MP, PTT, CBC, PT, HS TROP, CK #### [address] Serum or plasma anion gap de terminationOrdered By: Ashley Dickerson on 04-13-2024 Anion gap [Moles/Vol] 9.1 mmol/L Normal 6.0-15.0 [facility] Comment on above: Performed By: #### C MP, PTT, CBC, PT, HS TROP, CK #### [address] Sodium [Moles/volume] in Ser um or PlasmaOrdered By: Ashley Dickerson on 04-13-2024 Sodium [Moles/Vol] 138 mmol/L Normal 136-145 [facility] Comment on above: Performed By: #### C MP, PTT, CBC, PT, HS TROP, CK #### [address] Troponin I High Sensitivityo n 04-13-2024 Troponin I High Sensitivity 454.0 pg/mL Off scale high 0.0-15.0 [facility] Comment on above: Result Comment: Crit ical Result : Called to and read back by: HUGH BRUMFIELD at: 04/13/2024 19:01:57 by:[id number] PERFORMED BY: [place] [address] PATHOLOGIST MACHINE SPECIALIST EDMOND NORTH M.D. Performed By: #### C MP, PTT, CBC, PT, HS TROP, CK #### [address] Troponin I High Sensitivity 482.4 pg/mL Off scale high 0.0-15.0 [facility] Comment on above: Result Comment: Crit ical Result : Called to and read back by: SOREN BURDEN at: 04/13/2024 17:12:51 by:[id number] PERFORMED BY: [place] [address] PATHOLOGIST MACHINE SPECIALIST EDMOND NORTH M.D. Performed By: #### C MP, PTT, CBC, PT, HS TROP, CK #### [address] Troponin I.cardiac [Mass/vol ume] in Serum or Plasma by Detection limit <= 0.01 ng/Ordered By: Albert Palacio on 04-13-2024 Troponin I.cardiac DL <= 0.01 ng/mL [Mass/Vol] 454.0 pg/mL 0.0-15.0 [facility] Comment on above: Critical Result : Ca lled to and read back by: HUGH BRUMFIELD at: 04/13/2024 19:01:57 by:[id number] Urea nitrogen [Mass/volume] in Serum or PlasmaOrdered By: Ashley Dickerson on 04-13-2024 Urea nitrogen [Mass/Vol] 19 mg/dL Normal 7-25 [facility] Comment on above: Performed By: #### C MP, PTT, CBC, PT, HS TROP, CK #### [facility] [address] [place] [address] Whole blood creatinine measu rementOrdered By: Ashley Dickerson on 04-13-2024 Creatinine [Mass/Vol] 1.1 mg/dL Normal 0.6-1.3 [facility] Comment on above: ER/ESD physician is notified/shown all ISTAT results.Critical values may be confirmed by laboratory testing ifdeemed necessary by ER attending doctor. Result Comment: ER/E SD physician is notified/shown all ISTAT results. Critical values may be confirmed by laboratory testing if deemed necessary by ER attending doctor. Performed By: #### C MP, PTT, CBC, PT, HS TROP, CK #### [facility] [address] [place] [address] [facility] XR chest 1V portableon 04-13 XR chest 1V portable [facility] Main [place] [address] [place] [id number] XRay Report Signed Patient: Karuna Reynaga MR#: [id number] 289 : 1945 Acct:[id number] Age/Sex: 79 / F ADM Date: 04/13/24 Loc: ER Room: Type: PRE ER Attending Dr: Copies to: Ashley Dickerson APRN Ordering Provider: Ashley Dickerson APRN Date of Service: 04/13/24 XR/XR chest 1V portable: Syncope Plain film chest Single view HISTORY: Syncopal episode COMPARISON: 02/13/24 FINDINGS: SUPPORT DEVICES: None POSTSURGICAL CHANGES: LEFT shoulder fixation HEART: Within normal limits PULMONARY BARBARA: Within normal limits MEDIASTINUM: Unremarkable LUNGS AND PLEURA: No acute lung process, pleural effusion or pneumothorax identified. Similar interstitial prominence. Similar mild RIGHT hemidiaphragm elevation BONY STRUCTURES: Intact ADDITIONAL FINDINGS None XR/XR chest 1V portable IMPRESSION: No acute process. Impression dictated by: Jamal Bird M.D.04/13/2024 4:26 PM Dictation Location: [place] [address] Transcribed By: [facility] 04/13/24 1626 Dictated By: Jamal Bird DO 04/13/24 1624 Signed By: 04/13/24 1626 Normal [facility] ECG 12 [place] 03-10-2024 [facility] Work Phone: Normal sinus rhythm cannot exclude pattern of septal myocardial infarction no acute abnormalities [facility] Work Phone: Creatinine (Bld) [Mass/Vol]O rdered By: JOSE LUIS LOCKHART on 02-25-2024 Creatinine [Mass/Vol] 0.7 mg/dL 0.6-1.3 [facility] Comment on above: ER/ESD physician is notified/shown all ISTAT results.Critical values may be confirmed by laboratory testing ifdeemed necessary by ER attending doctor. No Panel InformationOrdered By: JOSE LUIS LOCKHART on 02-25-2024 Bedside Estimated GFR (eGFR) > 60.0 [facility] CT Chest WO contraston 12-28 IMPRESSION: 1. [...] any questions regarding this interpretation, please call [phone]. If you are unable to reach us at the number above, please feel free to contact [facility] at [phone]. DIVISION OF RADIOLOGY * * *Final Report* * * DATE OF EXAM: Dec 27 2023 1:09PM [facility] 0541 - CT CHEST WO [...] calcified gallstone is noted in the gallbladder. Neuro Intensivist Physician (topogram) images: No additional findings. DIVISION OF RADIOLOGY Provider, [facility] - 12/28/2023 * * *Final Report* * * DATE OF EXAM: Dec 27 2023 1:09PM [facility] 0541 - CT CHEST WO [...] calcified gallstone is noted in the gallbladder. Neuro Intensivist Physician (topogram) images: No additional findings. IMPRESSION IMPRESSION: [...] any questions regarding this interpretation, please call [phone]. If you are unable to reach us at the number above, please feel free to contact [facility] at [phone]. [facility] CT Chest WO contrastOrdered By: [facility] Provider on 12-28-[address] [facility] [address] Chest WO contraston 12-27 Radiology Study observation (narrative) [facility] LUNG DIFFUSION CAPACITY (SHANKAR O)on 12-25-2023 [facility] SPIROMETRY WITH DILATOR IF O BSTRUCTEDon 12-25-2023 DLCO (ml/min/mmHg) 9.76 ml/min/mmHg [facility] DLCO/VA (ml/min/mmHg/L) 4.48 ml/min/mmHg/L [facility] RRR38-89% PRE (L/S) 1.32 L/S [facility] FEV1 PRE (L) 1.05 L [facility] FEV1/FVC PRE (%) 89 % [facility] FVC PRE (L) 1.19 L [facility] PEF PRE (L/S) 1.90 L/S [facility] VA (L) 2.18 L [facility] Thyrotropin [Units/volume] i n Serum or PlasmaOrdered By: Valdez Castro on 10-16-2023 TSH Qn 0.51 m[IU]/L 0.45-5.33 [facility] Thyroxine (T4) free [Mass/vo lume] in Serum or PlasmaOrdered By: Valdez Castro on 10-16-2023 Free T4 [Mass/Vol] 0.74 ng/dL 0.61-1.12 [facility] Triiodothyronine (T3) Free [ Mass/volume] in Serum or PlasmaOrdered By: Valdez Castro on 10-16-2023 Free T3 [Mass/Vol] 3.08 pg/mL 2.50-3.90 [facility] Basophils Auto (Bld) [#/Vol] Ordered By: Hermes Kennedy on 12-26-2022 Basophils (Bld) [#/Vol] 0.0 10*3/uL 0.0-0.2 [facility] Basophils/100 WBC Auto (Bld) Ordered By: Hermes Kennedy on 12-26-2022 Basophils/100 WBC (Bld) 0.5 % . [facility] Creatinine and Glomerular fi ltration rate.predicted panel (S/P/Bld)Ordered By: Hermes Kennedy on 12-26-2022 Creatinine [Mass/Vol] 0.61 mg/dL 0.44-1.03 [facility] Eosinophils Auto (Bld) [#/Vo l]Ordered [...] 12-26-2022 MCHC (RBC) [Mass/Vol] 32.3 g/dL 32.0-35.0 [facility] MCV Auto (RBC) [Entitic vol] Ordered By: Hermes Kennedy on 12-26-2022 MCV (RBC) [Entitic vol] 91.2 fL 80-100 [facility] Monocytes Auto (Bld) [#/Vol] Ordered By: Hermes Kennedy on 12-26-2022 Monocytes (Bld) [#/Vol] 0.5 10*3/uL 0.0-0.8 [facility] Monocytes/100 WBC Auto (Bld) Ordered By: Hermes Kennedy on 12-26-2022 Monocytes/100 WBC (Bld) 8.3 % . [facility] Neutrophils Auto (Bld) [#/Vo l]Ordered [...] 12-26-2022 RBC (Bld) [#/Vol] 4.20 10*6/uL 3.60-5.00 [facility] Serum or plasma anion gap de terminationOrdered By: Hermes Kennedy on 12-26-2022 Anion gap [Moles/Vol] 10.0 mmol/L 6.0-15.0 [facility] Serum or plasma calcium marce urement (mass/volume)Ordered By: Hermes Kennedy on 12-26-2022 Calcium [Mass/Vol] 9.1 mg/dL 8.2-10.2 [facility] Serum or plasma chloride william surement (moles/volume)Ordered By: Hermes Kennedy on 12-26-2022 Chloride [Moles/Vol] 104 mmol/L 95-114 [facility] Serum or plasma glucose marce urement (mass/volume)Ordered By: Hermes Kennedy on 12-26-2022 Glucose [Mass/Vol] 80 mg/dL 70-100 [facility] Comment on above: ADA recommended refe rence rangeRandom Glucose Reference Range is dependent on time and content of last meal. Glucose of more than 200 mg/dL in a nonstressed, ambulatory subject supports the diagnosis of Diabetes Mellitus. Serum or plasma potassium me asurement (moles/volume)Ordered By: Hermes Kennedy on 12-26-2022 Potassium [Moles/Vol] 4.3 mmol/L 3.5-5.1 [facility] Serum or plasma sodium measu rement (moles/volume)Ordered By: Hermes Kennedy on 12-26-2022 Sodium [Moles/Vol] 139 mmol/L 136-146 [facility] Serum or plasma total carbon dioxide measurement (moles/volume)Ordered By: Hermes Kennedy on 12-26-2022 CO2 [Moles/Vol] 29.3 mmol/L 22.0-30.0 [facility] Serum or plasma urea nitroge n measurement (mass/volume)Ordered By: Hermes Kennedy on 12-26-2022 Urea nitrogen [Mass/Vol] 21 mg/dL 9-23 [facility] WBC Auto (Bld) [#/Vol]Ordere d By: Hermes Kennedy on 12-26-2022 WBC (Bld) [#/Vol] 6.4 10*3/uL 3.8-11.6 [facility] CULTURE URINEon 04-05-2022 CULTURE URINE Culture Observations : NO GROWTH. Normal [facility] Comment on above: Performed By: #### U RCX #### [facility] [address] [place] [address] [address] Mojgan Daily UA RANDOM W/MICROSCOPICon BACTERIA NONE SEEN Normal NONE SEEN [facility] Comment on above: Performed By: #### U AMIC #### [facility] [address] [address] [address] Mojgan Daily Bilirubin Ql (U) Negative Normal NEGATIVE [facility] Comment on above: Performed By: #### U AMIC #### [facility] [address] [place] [address] [address] Mojgan Daily CA OX CRYSTALS FEW Normal [facility] Comment on above: Performed By: #### U AMIC #### [facility] [address] [address] [address] Mojgan Daily CAST NONE SEEN Normal NONE SEEN [facility] Comment on above: Performed By: #### U AMIC #### [facility] [address] [address] [address] Mojgan Daily Clarity (U) CLEAR Normal CLEAR [facility] Comment on above: Performed By: #### U AMIC #### [facility] [address] [address] [address] Mojgan Daily Color (U) LT. YELLOW Normal YELLOW [facility] Comment on above: Performed By: #### U AMIC #### [facility] [address] [address] [address] Mojgan Daily Crystals LM Nom (Urine sed) SEEN Abnormal NONE SEEN [facility] Comment on above: Performed By: #### U AMIC #### [facility] [address] [address] [address] Mojgan Daily Epithelial cells LM Ql (Urine sed) NONE SEEN Normal NONE SEEN /RARE [facility] Comment on above: Performed By: #### U AMIC #### [facility] [address] [address] [address] Mojgan Daily Glucose Ql (U) Negative Normal NEGATIVE [facility] Comment on above: Performed By: #### U AMIC #### [facility] [address] [place] [address] Dr. Mojgan Daily Hemoglobin Ql (U) Negative Normal NEGATIVE [facility] Comment on above: Performed By: #### U AMIC #### [facility] [address] [address] [address] Mojgan Daily Ketones Ql (U) Negative Normal NEGATIVE [facility] Comment on above: Performed By: #### U AMIC #### [facility] [address] [place] [address] Dr. Mojgan Daily LEUKOCYTES SMALL Abnormal NEGATIVE [facility] Comment on above: Performed By: #### U AMIC #### [facility] [address] [place] [address] Dr. Mojgan Daily MUCOUS NONE SEEN Normal NONE SEEN [facility] Comment on above: Performed By: #### U AMIC #### [facility] [address] [place] [address] Dr. Mojgan Daily Nitrite Ql (U) Negative Normal NEGATIVE [facility] Comment on above: Performed By: #### U AMIC #### [facility] [address] [place] [address] Dr. Mojgan Daily pH (U) 5.0 [pH] Normal 5-9 [facility] Comment on above: Performed By: #### U AMIC #### [facility] [address] [place] [address] Dr. Mojgan Daily RBC NONE SEEN Abnormal 0-2 [facility] Comment on above: Performed By: #### U AMIC #### [facility] [address] [place] [address] Dr. Mojgan Daily SPEC GRAVITY 1.025 Normal 1.005-<=1. 025 [facility] Comment on above: Performed By: #### U AMIC #### [facility] [address] [place] [address] Dr. Mojgan Daily UA PROTEIN Negative Normal NEGATIVE/ TRACE [facility] Comment on above: Performed By: #### U AMIC #### [facility] [address] [place] [address] Dr. Mojgan Daily URIC ACID CRYSTALS RARE Normal [facility] Comment on above: Performed By: #### U AMIC #### [facility] [address] [place] [address] Dr. Mojgan Daily Urobilinogen Qn (U) 0.2 {Amanuel'U}/dL Normal 0.2 - 1. 0 [facility] Comment on above: Performed By: #### U AMIC #### [facility] [address] [place], [place] [address] Dr. Mojgan Daily WBC 2-5 Abnormal NONE SEEN [facility] Comment on above: Performed By: #### U AMIC #### [facility] [address] [place], [place] [address] Dr. Mojgan Daily MG MAMM SCREEN 3D RUPAL CADon 03-27-2022 MG MAMM SCREEN 3D RUPAL CAD Patient: KARUNA REYNAGA Exam Date: 03/27/2022 : 1945 Gender:F Ordering : DR JAMAL ALVAREZ Admission #: [id number] Family : Order #: [id number] CLICK HERE TO VIEW EXAM RADIOLOGY REPORT [...] Treatments None Family Cancers None LOCATION: [facility] BREAST COMPOSITION: Almost entirely fatty. [...] MD on 03/27/2022 at 14:10 Normal [facility] Comprehensive metabolic 2000 panelon 02-03-2022 Albumin [Mass/Vol] 4.0 g/dL 3.9 - 4.9 g/dL [facility] ALP [Catalytic activity/Vol] 55 U/L 34 - 123 U/L [facility] ALT [Catalytic activity/Vol] 16 U/L 7 - 38 U/L [facility] Anion gap [Moles/Vol] 10 mmol/L 9 - 18 mmol/L [facility] AST [Catalytic activity/Vol] 16 U/L 13 - 35 U/L [facility] Bilirubin [Mass/Vol] 0.3 mg/dL 0.2 - 1 .3 mg/dL [facility] Calcium [Mass/Vol] 9.4 mg/dL 8.5 - 10. 2 mg/dL [facility] Chloride [Moles/Vol] 107 mmol/L High 97 - 10 5 mmol/L [facility] CO2 [Moles/Vol] 28 mmol/L 22 - 30 mmol/L [facility] Creatinine [Mass/Vol] 0.81 mg/dL 0.58 - 0.96 mg/dL [facility] Estimated Glomerular Filtration Rate 75 mL/min/1.73m >=60 mL/min/1.7 3m [facility] Glucose [Mass/Vol] 102 mg/dL High 74 - 99 mg/dL [facility] Potassium [Moles/Vol] 4.5 mmol/L 3.7 - 5.1 mmol/L [facility] Protein [Mass/Vol] 6.7 g/dL 6.3 - 8.0 g/dL [facility] Sodium [Moles/Vol] 145 mmol/L High 136 - 144 mmol/L [facility] Urea nitrogen [Mass/Vol] 22 mg/dL High 7 - 21 mg/dL [facility] Office Visit (Cardiology)on 10-21-2021 Follow-up visit Diagnoses/Problems Assessed Pre-operative cardiovascular examination (V72.81) (Z01.810) Sinus bradycardia (427.89) (R00.1) Class 1 obesity with body mass index (BMI) of 30.0 to 30.9 in adult (278.00,V85.30) (E66.9,Z68.30) Former smoker (V15.82) (Z87.891) Quit 1980 Orders Class 1 obesity with body mass index (BMI) of 30.0 to 30.9 in adult Healthy Weight Tips; Status:Complete - Retrospective Authorization; Done: [id number] Pre-operative cardiovascular examination IO EKG Electrocardiogram- 12 Lead; Status:Complete; Done: [id number] SocHx: Former smoker Tobacco Use Screening; Status:Complete; Done: [id number] Patient Instructions Follow up as needed only Patient may proceed with surgery Dr. Kennedy By signing my name below, I, Katherine Ball LPN, attest that this documentation has been prepared under the direction and in the presence of Dr. Albert Walton DO. All medical record entries made by the Jenniferibe were at my direction and personally dictated [...] Aerosol SolutionAs directed. Vitamin D3 50 MCG (1999 [place]) Oral CapsuleTAKE 1 CAPSULE Daily Allergies Medication codeine Recorded By: Jaida Forbes; 10/21/2021 11:07:03 AM Penicillins Recorded By: Jaida Frobes; 10/21/2021 11:07:03 AM propoxyphene Recorded By: Jaida [...] negative for complaint. Vitals Vital Signs Recorded: [id number] 11:08AMRecorded: [id number] 11:07AM [id number], LUE, Bdpldqb201, LUE, Sitting Ygezugmdj58, LUE, Qkidihj39, LUE, Sitting Heart Rate58, Apical Height4 ft 10 in Lyjqos388 lb BMI (more content not included)... Normal [employer] Tobacco Screening.on 021 Fall risk assessment a) No falls within the last year [facility] [email or web address] 250 DO Work Phone: Tobacco use status [facility] b) No [facility]-Sandu kathryn 250 DO Work Phone: XR Chest 2 Views*on 10-13-20 XR Chest 2 Views* CLINICAL HISTORY: Pr eop imaging. Abnormal breath sounds right lung COMPARISONS: April 09, 2020 FINDINGS: The heart, mediastinum and pulmonary vasculature are within normal limits. Stable of mild interstitial coarsening consistent with nonspecific fibrosis.. Bones unremarkable IMPRESSION: No active lung disease Report reported and signed by Kole Nino on 10/13/2021 1530 Normal [facility] [employer] Vital Signs Date Time Vital Sign Value Performing Clinician Facility 03-25-2025 14:50-0400 Body height 144.8 cm Jamal Alvarez DO Work Phone: [facility] 03-25-2025 14:50-0400 Body mass index (BMI) [Ratio] 27.85 kg/m2 Jamal Alvarez DO Work Phone: [facility] 03-25-2025 14:50-0400 Body weight 58.38 kg Jamal Alvarez DO Work Phone: [facility] 03-25-2025 14:50-0400 Heart rate 68 /min Jamal Alvarez DO Work Phone: [facility] 03-25-2025 14:50-0400 SaO2% (BldA) [Mass fraction] 98 % Jamal Alvarez DO Work Phone: [facility] 03-15-2025 11:24-0400 Heart rate 80 /min Jamal Alvarez DO Work Phone: [facility] 03-15-2025 11:24-0400 Respiratory rate 18 /min Jamal Alvarez DO Work Phone: [facility] 03-15-2025 08:00-0400 Body temperature 97.8 [degF] Jamal Alvarez DO Work Phone: [facility] 03-15-2025 08:00-0400 Diastolic blood pressure 62 mm[Hg] Jamaltaya Alvarez DO Work Phone: [facility] 03-15-2025 08:00-0400 SaO2% (BldA) [Mass fraction] 95 % Jamaltaya Alvarez DO Work Phone: [facility] 03-15-2025 08:00-0400 Systolic blood pressure 96 mm[Hg] Jamaltaya Alvarez DO Work Phone: [facility] 03-15-2025 06:00-0400 Body weight 60.1 kg Jamaltaya Alvarez DO Work Phone: [facility] 03-14-2025 03:38-0400 Body height 144.78 cm Jamaltaya Alvarez DO Work Phone: [facility] 03-14-2025 03:10-0400 Body temperature 98.4 [degF] Jamal Antonio DO Work Phone: [facility] 03-14-2025 03:10-0400 Diastolic blood pressure 56 mm[Hg] Jamal Alvarez DO Work Phone: [facility] 03-14-2025 03:10-0400 Heart rate 83 /min Jamal Antonio DO Work Phone: [facility] 03-14-2025 03:10-0400 Inhaled oxygen flow rate 2 L/min Jamal Antonio DO Work Phone: [facility] 03-14-2025 03:10-0400 Respiratory rate 20 /min Jamal Antonio DO Work Phone: [facility] 03-14-2025 03:10-0400 SaO2% (BldA) [Mass fraction] 96 % Jamaltaya Alvarez DO Work Phone: [facility] 03-14-2025 03:10-0400 Systolic blood pressure 110 mm[Hg] Jamal Alvarez DO Work Phone: [facility] 03-13-2025 17:22-0400 Body height 144.78 cm Jamal Alvarez DO Work Phone: [facility] 03-13-2025 17:22-0400 Body weight 60.05 kg Jamal Alvarez DO Work Phone: [facility] 03-05-2025 15:03-0400 Body mass index (BMI) [Ratio] 28.26 kg/m2 Jamal Alvarez DO Work Phone: [facility] 03-05-2025 15:03-0400 Body weight 59.24 kg Jamal Alvarez DO Work Phone: [facility] 03-05-2025 15:03-0400 SaO2% (BldA) [Mass fraction] 97 % Jamal Alvarez DO Work Phone: [facility] 08-25-2024 16:13-0400 Body height 144.8 cm Jose Luis Lockhart PERSONAL CARE ATTENDANT Work Phone: [facility] 08-25-2024 16:13-0400 Body mass index (BMI) [Ratio] 29.21 kg/m2 Jose Luis Lockhart PERSONAL CARE ATTENDANT Work Phone: [facility] 08-25-2024 16:13-0400 Body weight 61.24 kg Jose Luis Lockhart PERSONAL CARE ATTENDANT Work Phone: [facility] 08-25-2024 16:13-0400 Diastolic blood pressure 70 mm[Hg] Jose Luis Lockhart PERSONAL CARE ATTENDANT Work Phone: [facility] 08-25-2024 16:13-0400 Heart rate 68 /min Jose Luis Lockhart PERSONAL CARE ATTENDANT Work Phone: [facility] 08-25-2024 16:13-0400 SaO2% (BldA) [Mass fraction] 99 % Jose Luis Lockhart PERSONAL CARE ATTENDANT Work Phone: [facility] 08-25-2024 16:13-0400 Systolic blood pressure 130 mm[Hg] Jose Luis Lockhart PERSONAL CARE ATTENDANT Work Phone: [facility] 04-16-2024 16:24-0400 Diastolic blood pressure 66 mm[Hg] DO Jamal Alvarez Work Phone: [facility] 04-16-2024 16:24-0400 Heart rate 91 /min DO Jamal Alvarez Work Phone: [facility] 04-16-2024 16:24-0400 Systolic blood pressure 133 mm[Hg] DO Jamal Alvarez Work Phone: [facility] 04-16-2024 16:00-0400 Body temperature 97.5 [degF] DO Jamal Alvarez Work Phone: [facility] 04-16-2024 16:00-0400 Respiratory rate 16 /min DO Jamal Alvarez Work Phone: [facility] 04-16-2024 16:00-0400 SaO2% (BldA) [Mass fraction] 98 % DO Jamal Alvarez Work Phone: [facility] 04-16-2024 06:00-0400 Body weight 64.5 kg DO Jamal Alvarez Work Phone: [facility] 04-15-2024 14:38-0400 Body height 144.78 cm DO Jamal Alvarez Work Phone: [facility] 04-13-2024 20:50-0400 Diastolic blood pressure 88 mm[Hg] DO Jamal Alvarez Work Phone: [facility] 04-13-2024 20:50-0400 Heart rate 74 /min DO Jamal Alvarez Work Phone: [facility] 04-13-2024 20:50-0400 Respiratory rate 18 /min DO Jamal Alvarez Work Phone: [facility] 04-13-2024 20:50-0400 SaO2% (BldA) [Mass fraction] 92 % DO Jamal Alvarez Work Phone: [facility] 04-13-2024 20:50-0400 Systolic blood pressure 131 mm[Hg] DO Jamal Alvarez Work Phone: [facility] 04-13-2024 15:54-0400 Body height 149.86 cm DO Jamal Alvarez Work Phone: [facility] 04-13-2024 15:54-0400 Body temperature 97.9 [degF] DO Jamal Alvarez Work Phone: [facility] 04-13-2024 15:54-0400 Body weight 66.5 kg DO Jamal Alvarez Work Phone: [facility] 03-10-2024 13:13-0400 Body height 143.5 cm Judit Lora MD Work Phone: [facility] 03-10-2024 13:13-0400 Body mass index (BMI) [Ratio] 32.2 kg/m2 Judit Lora MD Work Phone: [facility] 03-10-2024 13:130400 Body weight 66.32 kg Judit Lora MD Work Phone: [facility] 03-10-2024 13:13-0400 Diastolic blood pressure 78 mm[Hg] Judit Lora MD Work Phone: [facility] 03-10-2024 13:13-0400 Heart rate 74 /min Judit Lora MD Work Phone: [facility] 03-10-2024 13:13-0400 Systolic blood pressure 118 mm[Hg] Judit Lora MD Work Phone: [facility] 02-22-2024 09:21-0400 Body height 142.24 cm DO Jamal Alvarez Work Phone: [facility] 02-22-2024 09:21-0400 Body weight 65.77 kg DO Jamal Alvarez Work Phone: [facility] 02-21-2024 10:45-0400 Body height 142.24 cm DO Jamal Alvarez Work Phone: [facility] 02-21-2024 10:45-0400 Body mass index (BMI) [Ratio] 33.8 kg/m2 DO Jamal Alvarez Work Phone: [facility] 02-21-2024 10:45-0400 Body weight 68.49 kg DO Jamal Alvarez Work Phone: [facility] 02-21-2024 10:45-0400 Diastolic blood pressure 79 mm[Hg] DO Jamaltaya Alvarez Work Phone: [facility] 02-21-2024 10:45-0400 Heart rate 65 /min DO Jamal Alvarez Work Phone: [facility] 02-21-2024 10:45-0400 Systolic blood pressure 131 mm[Hg] DO Jamaltaya Alvarez [facility] [...] 02-13-2024 18:46-0400 Heart rate 74 /min DO Jamaltaya Alvarez [facility] [...] 97.59 [degF] Ubaldo Dubose MD Work Phone: [facility] 12-28-2023 13:29-0500 Body weight 79.38 kg Ubaldo Dubose MD Work Phone: [facility] 12-28-2023 13:29-0500 Diastolic blood pressure 65 mm[Hg] Ubaldo Dubose MD Work Phone: [facility] 12-28-2023 13:29-0500 Heart rate 67 /min Ubaldo Dubose MD Work Phone: [facility] 12-28-2023 13:29-0500 Respiratory rate 16 /min Ubaldo Dubose MD Work Phone: [facility] 12-28-2023 13:29-0500 SaO2% (BldA) [Mass fraction] 97 % Ubaldo Dubose MD Work Phone: [facility] 12-28-2023 13:29-0500 Systolic blood pressure 137 mm[Hg] Ubaldo Dubose MD Work Phone: [facility] 10-21-2021 11:08-0500 Diastolic blood pressure 70 mm[Hg] Jamal Alvarez Work Phone: [facility] DO Work Phone: 10-21-2021 11:08-0500 Systolic blood pressure 132 mm[Hg] Jamal Alvarez Work Phone: [facility] DO Work Phone: 10-21-2021 11:07-0500 Body height 147.32 cm Jamal Alvarez Work Phone: [facility] DO Work Phone: 10-21-2021 11:07-0500 Body mass index (BMI) [Ratio] 30.31 kg/m2 Jamal Mylesman Work Phone: [facility] DO Work Phone: 10-21-2021 11:07-0500 Body surface area Derived from formula 1.59 m2 Jamal Alvarez Work Phone: [facility] DO Work Phone: 10-21-2021 11:07-0500 Body weight 65.77 kg Jamal Alvarez Work Phone: [facility] DO Work Phone: 10-21-2021 11:07-0500 Diastolic blood pressure 70 mm[Hg] Jamal Alvarez Work Phone: [facility] DO Work Phone: 10-21-2021 11:07-0500 Heart rate 58 /min Jamal Alvarez Work Phone: [facility] DO Work Phone: 10-21-2021 11:07-0500 Systolic blood pressure 132 mm[Hg] Jamal Alvarez Work Phone: [facility] DO Work Phone: Encounters Encounter Date Encounter Type Care Provider Facility Start: 04-08-2025 End: 04-08-2025 Follow-up encounter Jamal Alvarez DO Work Phone: [facility] Comment on above: Ankylosing spondylit is lumbar region (CMS/HCC) (Primary Dx) Start: 04-07-2025 End: 04-07-2025 ambulatory JAMAL ALVAREZ Not Available Start: 03-25-2025 End: 03-25-2025 ambulatory JAMAL ALVAREZ Not Available Start: 03-25-2025 End: 03-25-2025 Transitional care manage srvc 14 day discharge Jamal Alvarez DO Work Phone: [facility] Comment on above: Bronchiectasis with acute lower respiratory infection (CMS/HCC) (Primary Dx); Pneumonia due to human metapneumovirus; Hilar adenopathy; Severe persistent reactive airway disease with acute exacerbation (CMS/HCC); Pulmonary hypertension, unspecified (CMS/HCC); Chronic reflux esophagitis; Traumatic brain injury with loss of consciousness, subsequent encounter; 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 (CMS/HCC); 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); Hypothyroidism, unspecified type (CMS/HCC) Start: 03-25-2025 End: 03-25-2025 Bamboo flowsheet Jamal Alvarez DO Work Phone: [facility] Start: 03-25-2025 End: 03-25-2025 Bamboo flowsheet Jamal Alvarez DO Work Phone: [facility] Start: 03-20-2025 End: 03-20-2025 Refill Lisa William MD, PhD Work Phone: Neurology Start: 03-18-2025 End: 03-18-2025 Chart abstracting Ubaldo Dubose MD Work Phone: Pulmonary Medicine Start: 03-17-2025 End: 03-18-2025 Refill Ubaldo Dubose MD Work Phone: Pulmonology [facility] Comment on above: Refill Request Start: 03-14-2025 Non-patient / Non-visit Shelby Alvarez DO Work Phone: [facility] Work Phone: Start: 03-14-2025 End: 03-15-2025 Evaluation and management of inpatient Matias Garibay Valdez Facility:[facility] Start: 03-05-2025 End: 03-05-2025 Office outpatient visit 25 minutes Jamal Alvarez DO Work Phone: [facility] Comment on above: Bronchiectasis witho ut complication ([facility]) (Primary Dx); Edema, unspecified type; Recurrent UTI; Seizure ([facility]); Traumatic brain injury with loss of consciousness, subsequent encounter; DISH (diffuse idiopathic skeletal hyperostosis); Hypothyroidism, unspecified type ([facility]); Combined hyperlipidemia ([facility]); Medicare annual wellness visit, subsequent; Advance care planning Start: 03-05-2025 End: 03-05-2025 Patient encounter procedure Jamal Alvarez DO Work Phone: [facility] Start: 03-05-2025 End: 03-05-2025 ambulatory JAMAL ALVAREZ Not Available Start: 02-25-2025 End: 02-25-2025 ambulatory Jamal Alvarez DO Work Phone: [facility] Work Phone: Start: 02-25-2025 End: 02-25-2025 Departed Referred Jamal Alvarez DO Work Phone: [facility] Start: 02-25-2025 End: 02-25-2025 Clinisync Result Encounter Jamal Alvarez DO Work Phone: [facility] Unsolicited Start: 02-25-2025 End: 02-27-2025 Clinisync Result Encounter Jamal Alvarez DO Work Phone: [facility] Unsolicited Start: 02-25-2025 End: 02-27-2025 External Result Encounter Jamal Alvarez DO Work Phone: [facility] Unsolicited Start: 02-06-2025 End: 02-06-2025 Patient encounter procedure Jamal Alvarez DO Work Phone: [facility] [place] Work Phone: Start: 02-06-2025 End: 02-06-2025 ambulatory Jamal Alvarez DO Work Phone: [facility] Work Phone: Start: 02-06-2025 End: 02-07-2025 External Result Encounter Jamal Campbell Antonio DO Work Phone: [facility] Unsolicited Start: 02-06-2025 End: 02-07-2025 External Result Encounter Jamal Campbell Antonio DO Work Phone: [facility] Unsolicited Start: 01-12-2025 End: 01-13-2025 Telephone encounter Lisa William MD, PhD Work Phone: Neurology Comment on above: Medication Question Start: 12-24-2024 End: 12-24-2024 ambulatory LISA WILLIAM Facility:[facility] Start: 12-24-2024 End: 12-24-2024 Patient encounter procedure Lisa William MD, PhD Work Phone: Neurology Comment on above: Focal epilepsy with impairment of consciousness, intractable (HCC) (Primary Dx) Start: 12-24-2024 End: 12-24-2024 Telemedicine consultation with patient Lisa William MD, PhD Work Phone: Neurology Start: 12-11-2024 End: 12-12-2024 Refill Ubaldo Dubose MD Work Phone: Pulmonology [facility] Comment on above: Refill Request Start: 11-20-2024 End: 11-20-2024 Patient encounter procedure Jamal Antonio DO Work Phone: [facility] [place] Work Phone: Start: 11-20-2024 End: 11-20-2024 ambulatory Jamal Antonio DO Work Phone: [facility] Work Phone: Start: 09-08-2024 End: 09-08-2024 Telephone encounter Ubaldo Dubose MD Work Phone: Pulmonary Medicine Comment on above: Missed VV Start: 08-30-2024 End: 09-01-2024 Refill Ubaldo Dubose MD Work Phone: Pulmonology [facility] Comment on above: Refill Request Start: 08-25-2024 End: 08-25-2024 ambulatory JAMAL ALVAREZ Not Available Start: 08-25-2024 End: 08-25-2024 Office outpatient visit 25 minutes Jose Luis Lockhart NP Work Phone: [facility] Comment on above: Recurrent UTI (Prima ry Dx); Bronchiectasis without complication (CMS/HCC); Atherosclerosis of aorta (CMS/HCC); Combined hyperlipidemia (CMS/HCC); 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 (CMS/HCC); Need for immunization against influenza; 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); Gastroesophageal reflux disease without esophagitis; Hypothyroidism, unspecified type (CMS/HCC); Moderate asthma without complication, unspecified whether persistent (CMS/HCC); Osteoporosis, unspecified osteoporosis type, unspecified pathological fracture presence (CMS/HCC); Urinary incontinence, unspecified type; Seizure (CMS/HCC); Traumatic brain injury with loss of consciousness, subsequent encounter; Medication management Start: 08-24-2024 End: 08-24-2024 Clinisync Result Encounter Jamal Alvarez DO Work Phone: [facility] Unsolicited Start: 08-24-2024 End: 08-24-2024 Clinisync Result Encounter Jamal Alvarez DO Work Phone: [facility] Unsolicited Start: 08-22-2024 End: 08-27-2024 ambulatory Lisa William MD, PhD Work Phone: Neurology Start: 08-22-2024 End: 08-27-2024 Patient encounter procedure Lisa William MD, PhD Work Phone: Neurology Comment on above: New med Lamictal eff ects Start: 08-13-2024 End: 08-13-2024 ambulatory LISA WILLIAM Facility:[facility] Start: 08-13-2024 End: 08-13-2024 Patient encounter procedure Lisa William MD, PhD Work Phone: Neurology Comment on above: Focal epilepsy with impairment of consciousness, intractable (HCC) (Primary Dx) Start: 08-13-2024 End: 08-13-2024 Telemedicine consultation with patient Lisa William MD, PhD Work Phone: Neurology Start: 08-08-2024 End: 08-08-2024 Clinisync Result Encounter Jamal Avlarez DO Work Phone: [facility] Unsolicited Start: 08-08-2024 End: 08-08-2024 Clinisync Result Encounter Jamal Alvarez DO Work Phone: [facility] Unsolicited Start: 07-30-2024 End: 08-01-2024 Telephone encounter Lisa William MD, PhD Work Phone: Neurology Comment on above: Orders Start: 06-12-2024 End: 06-12-2024 ambulatory [facility] Ambulatory Start: 06-05-2024 Telephone encounter Ubaldo dawn MD Work Phone: Pulmonary Medicine Comment on above: Certifcate of Medica l Necessity Start: 05-05-2024 End: 05-05-2024 ambulatory Ubaldo Dubose MD Work Phone: Pulmonology [facility] Comment on above: Bronchiectasis witho ut complication (HCC) (Primary Dx); Yeast infection Start: 05-05-2024 End: 05-05-2024 Telemedicine consultation with patient Ubaldo Dubose MD Work Phone: Pulmonology [facility] Start: 04-30-2024 End: 04-30-2024 ambulatory UBALDO DUBOSE Pulmonary Lab Comment on above: Spirometry Start: 04-30-2024 End: 04-30-2024 Patient encounter procedure [facility] Work Phone: Pulmonary Lab Start: 04-24-2024 End: 04-24-2024 ambulatory GILBERT LOVETT Not Available Start: 04-22-2024 End: 04-22-2024 ambulatory JAMAL ALVAREZ Not Available Start: 04-22-2024 End: 04-22-2024 Patient encounter procedure Flex Juarez MD Work Phone: Neurosurgery Comment on above: Convulsions, unspeci fied convulsion type (HCC) (Primary Dx) Start: 04-22-2024 End: 04-22-2024 ambulatory DO Jamal Alvarez Work Phone: [facility] Work Phone: Start: 04-21-2024 Telephone encounter Flex Juarez MD Work Phone: Neurology Comment on above: Future Appointment ( NEW PT, [place], ANY ([place]OJ[place]? - PT PREF [place])) Start: 04-16-2024 End: 04-16-2024 Non-patient / Non-visit DO Jamal Alvarez Work Phone: [facility] Work Phone: Start: 04-13-2024 End: 04-16-2024 Evaluation and management of inpatient DO Jamal Alvarez Work Phone: [facility] [place] [facility] Work Phone: Start: 03-10-2024 End: 03-10-2024 ambulatory [facility] Ambulatory Start: 03-10-2024 End: 03-10-2024 Office consultation new/estab patient 60 min Judit Lora MD Work Phone: [facility] Comment on above: Shortness of breath; Hyperlipidemia, unspecified hyperlipidemia type; Traumatic brain injury, with unknown loss of consciousness status, sequela ([facility]-HCC); BMI 32.0-32.9,adult; Former smoker; History of traumatic brain injury; Cough, unspecified type; Diabetes mellitus type II, non insulin dependent (Multi); Dysphasia; Abnormal lung sounds; Bronchiectasis without complication (Multi); Medication course changed Start: 03-03-2024 End: 03-03-2024 ambulatory Ubaldo Dubose MD Work Phone: Pulmonology [facility] Comment on above: Bronchiectasis witho ut complication (HCC) (Primary Dx); Aspiration pneumonitis (HCC); Traumatic brain injury with loss of consciousness, sequela (HCC) Start: 03-03-2024 End: 03-03-2024 Telemedicine consultation with patient Ubaldo Dubose MD Work Phone: Pulmonology [facility] Start: 02-26-2024 Telephone encounter Ubaldo dawn MD Work Phone: Pulmonology [facility] Comment on above: Appointment Received Outside Med ical Records Start: 02-25-2024 End: 02-25-2024 ambulatory DO Jamal Alvarez Work Phone: [facility] Work Phone: Start: 02-25-2024 End: 02-25-2024 Patient encounter procedure DO Jamal Alvarez Work Phone: [facility]-CT Scan Main [place] Work Phone: Start: 02-22-2024 Chart abstracting Yuridia Bourgeois FINISHED GOODS STOCK CLERK [facility] Comment on above: Home nebulizer order Start: 02-22-2024 End: 02-22-2024 ambulatory DO Jamal Alvarez Work Phone: [facility] Work Phone: Start: 02-22-2024 End: 02-22-2024 Departed Referred DO Jamal Alvarez Work Phone: [facility] Work Phone: Start: 02-21-2024 End: 02-21-2024 ambulatory DO Jamal Alvarez Work Phone: [facility] Work Phone: Start: 02-21-2024 End: 02-21-2024 Discharged Recurring DO Jamal Alvarez Work Phone: [facility] [facility] Start: 02-21-2024 Registered Recurring DO Shelby Alvarez Work Phone: [facility] [facility] Start: 02-21-2024 End: 02-21-2024 ambulatory DO Jamal Alvarez Work Phone: [facility] Work Phone: Start: 02-21-2024 End: 02-21-2024 Patient encounter procedure DO Jamal Alvarez Work Phone: [facility] Work Phone: Start: 02-19-2024 Registered Recurring DO Shelby Alvarez Work Phone: [facility] Start: 02-15-2024 Orders Only Ubaldo Peres rn, MD Work Phone: Pulmonary Medicine Comment on above: Bronchiectasis witho ut complication (HCC) (Primary Dx) Start: 02-13-2024 End: 02-13-2024 ambulatory DO Jamal Alvarez Work Phone: [facility] Work Phone: Start: 02-13-2024 End: 02-13-2024 Patient encounter procedure DO Jamal Alvarez Work Phone: [facility] [place] Work Phone: Start: 02-12-2024 Registered Recurring DO Shelby Alvarez Work Phone: [facility] Start: 01-23-2024 End: 01-23-2024 ambulatory DO Jamal Alvarez Work Phone: [facility] Work Phone: Start: 01-23-2024 End: 01-23-2024 Patient encounter procedure DO Jamal Alvarez Work Phone: [facility] Work Phone: Start: 01-22-2024 Telephone encounter Ubaldo dawn MD Work Phone: Pulmonary Medicine Comment on above: Received Outside Med [facility] Records Start: 01-14-2024 Registered Recurring DO Shelby Alvarez Work Phone: [facility] Start: 12-28-2023 End: 12-28-2023 Patient encounter procedure Ubaldo Dubose MD Work Phone: Pulmonary Medicine Comment on above: Bronchiectasis witho ut complication (HCC) (Primary Dx); Aspiration pneumonitis (HCC); Traumatic brain injury with loss of consciousness, sequela (HCC) Start: 12-27-2023 End: 12-27-2023 Subsequent hospital visit by physician Arrival Time Radiology Work Phone: Radiology [facility] Comment on above: Interstitial pulmona ry disease (HCC) [J84.9] Start: 12-25-2023 End: 12-25-2023 ambulatory [facility] Work Phone: Pulmonary Lab Comment on above: Spirometry Start: 12-25-2023 End: 12-25-2023 Patient encounter procedure [facility] Work Phone: [facility] [place] [facility] Start: 11-21-2023 End: 11-21-2023 ambulatory DO Jamal Alvarez Work Phone: [facility] Work Phone: Start: 11-21-2023 End: 11-21-2023 Patient encounter procedure DO Jamal Alvarez Work Phone: [facility] Work Phone: Start: 10-16-2023 End: 10-16-2023 ambulatory DO Jamal Alvarez Work Phone: [facility] Work Phone: Start: 10-16-2023 End: 10-16-2023 Patient encounter procedure DO Jamal Alvarez Work Phone: [facility] [place] Work Phone: Start: 02-10-2023 End: 02-10-2023 ambulatory [facility] . Facility: Start: 12-26-2022 End: 12-26-2022 ambulatory DO Jamal Alvarez Work Phone: [facility] Work Phone: Start: 12-26-2022 End: 12-26-2022 Patient encounter procedure DO Jamal Alvarez Work Phone: [id number] Work Phone: Start: 07-26-2022 Orders Only [place] Arananaa cortney Work Phone: Hematology/Oncology Comment on above: [...] 60 min Jamal Alvarez Work Phone: [facility] 250 DO Work Phone: Start: 10-21-2021 Office outpatient ne w 45 minutes [facility] Work Phone: Patient encounter status [facility] Work Phone: Procedures Date Procedure Procedure Detail Performing Clinician Start: 03-13-2025 CT angiography of thorax Jamal Alvarez DO Work Phone: Start: 03-13-2025 CT of head without contrast Jamal Alvarez DO Work Phone: Start: 03-13-2025 Plain chest X-ray Eze Alvarez DO Work Phone: Start: 05-09-2025 Respiratory Panel (PCR) Jamal Alvarez DO Work Phone: Start: 02-25-2025 Culture bacterial quanttative colony count urine Jamal Alvarez DO Work Phone: Start: 02-25-2025 URINE CULTURE - [facility] kali Alvarez DO Work Phone: Start: 02-25-2025 Urine culture Jamal cope DO Work Phone: Start: 02-06-2025 Complete blood count with white cell differential, automated Jamal Alvarez DO Work Phone: Start: 02-06-2025 Comprehensive metabo lic panel Jamal Alvarez DO Work Phone: Start: 02-06-2025 Lipid panel Jamal Alvarez DO Work Phone: Start: 02-06-2025 Urine albumin quantitative Jamal Alvarez DO Work Phone: Start: 08-24-2024 MLR HEMOGLOBIN A1C Wilner Alvarez DO Work Phone: Start: 08-08-2024 ALL CBC WITH AUTO DIFF [...] 12-27-2023 Ct thorax w/o contra st material Leilani Anderson RN Start: 12-25-2023 Brncdilat rspse spmt ry pre&post-brncdilat admn Leilani Anderson RN Start: 11-21-2023 Plain chest X-ray DO Noe bass Antonio Work Phone: Implantation of sacr al nerve stimulator Jamal Alvarez Work Phone: Total colonoscopy Jamal Alvarez Work Phone: Comment on above: 01/30/2007; Plan of Treatment Date Care Activity Detail Author Start: 08-24-2027 Diabetes Screening Diabetes Screening [facility] Start: 02-19-2027 Diabetes Screening Diabetes Screening [facility] Start: 03-05-2026 Medicare Annual Wellness (AWV) Medicare Annual Wellness (AWV) [facility] Start: 02-12-2026 Glaucoma screening Diabetes: Retinopathy Screening [facility] Start: 02-06-2026 Urine screening for protein Diabetes: Urine Protein Screening [facility] Start: 10-26-2025 Screening for osteoporosis Bone Density Scan [facility] Start: 09-10-2025 End: 09-10-2025 Patient encounter procedure 09/10/2025 3:00 PM EST Office Visit [facility] [address] [place] [phone] Jamal Alvarez, DO [address] [place] [address] [facility] Start: 07-28-2025 Diabetes Screening Diabetes Screening [facility] Start: 06-25-2025 End: 06-25-2025 Patient encounter procedure 06/25/2025 2:00 PM EDT Office Visit [facility] [address] [place] [phone] Jamal Alvarez, DO [address] [place] [address] [facility] Start: 06-24-2025 End: 06-24-2025 Follow-up encounter 06/24/2025 3:00 PM EDT [facility] [address] [place] [phone] Lisa William MD, PhD [address] [place] [address] 6 months follow up-Focal epilepsy Neurology Comment on above: 6 months follow up-Focal epilepsy Start: 05-08-2025 Hemoglobin A1c measurement Diabetes: Hemoglobin A1C [facility] Start: 03-15-2025 [facility] Start: 03-14-2025 Bacteria identified in Blood by Culture Blood Culture [facility] Start: 03-14-2025 Microbial culture of sputum [facility] Start: 03-14-2025 Physical therapy procedure [facility] Start: 03-14-2025 Referral to icer air conditioning [facility] Start: 03-14-2025 Referral to occupational therapist [facility] Start: 03-14-2025 End: 03-14-2025 [facility] Start: 03-14-2025 Hospital admission [facility] Start: 03-14-2025 [facility] Start: 03-13-2025 CT angiography of thorax CT angio chest PE protocol [facility] Start: 03-13-2025 CT Chest [facility] Start: 03-13-2025 End: 03-13-2025 Urine culture [facility] Start: 03-13-2025 Bacteria identified in Urine by Culture Urine Culture [facility] Start: 03-05-2025 End: 03-05-2025 Patient encounter procedure 03/05/2025 3:00 PM EDT Office Visit [facility] [address] [place] [phone] Jamal Alvarez, DO [address] [place] [address] [facility] Start: 02-25-2025 Urine culture [facility] Start: 02-25-2025 Bacteria identified in Urine by Culture [facility] Work Phone: Start: 02-23-2025 End: 02-23-2025 Patient encounter procedure 02/23/2025 3:15 PM EDT Office Visit [facility] [address] [place] [phone] Jamal Alvarez, DO [address] [place] [address] [facility] Start: 02-23-2025 End: 08-25-2025 CBC panel - Blood by Automated count CBC Lab Routine Medication management Expected: 02/23/2025, Expires: 08/25/2025 [facility] Comment on above: Expected: 02/23/2025, Expires: Start: 02-23-2025 End: 08-25-2025 Comprehensive metabolic 2000 panel - Serum or Plasma Comprehensive metabolic panel Lab Routine 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) Expected: 02/23/2025, Expires: 08/25/2025 [facility] Work Phone: Comment on above: Expected: 02/23/2025, Expires: Start: 02-23-2025 End: 08-25-2025 Hemoglobin a1c with eag Hemoglobin a1c with eag Lab Routine 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) Expected: 02/23/2025, Expires: 08/25/2025 [facility] Comment on above: Expected: 02/23/2025, Expires: Start: 02-23-2025 End: 08-25-2025 Lipid 1996 panel - Serum or Plasma Lipid panel Lab Routine Combined hyperlipidemia (CMS/HCC) Expected: 02/23/2025, Expires: 08/25/2025 [facility] Comment on above: Expected: 02/23/2025, Expires: Start: 02-23-2025 End: 08-25-2025 Thyrotropin [Units/volume] in Serum or Plasma TSH Lab Routine Hypothyroidism, unspecified type (CMS/HCC) Expected: 02/23/2025, Expires: 08/25/2025 [facility] Comment on above: Expected: 02/23/2025, Expires: Start: 02-21-2025 Medicare Annual Wellness (AWV) Medicare Annual Wellness (AWV) [facility] Start: 02-21-2025 Thyroid stimulating hormone measurement TSH Level [facility] Start: 02-21-2025 Urine screening for protein Diabetes: Urine Protein Screening [facility] Start: 02-19-2025 Lipid panel Lipid Panel [facility] Start: 02-06-2025 [facility] Start: 02-03-2025 DIABETES SCREEN DIABETES SCREEN [facility] Start: 12-24-2024 End: 12-24-2024 Follow-up encounter 12/24/2024 3:00 PM [facility] [address] Neurology [address] [place] [address] Lisa William MD, PhD [address] [place] [address] Epilepsi follow up Neurology Comment on above: Epilepsi follow up Start: 11-24-2024 Hemoglobin A1c measurement Diabetes: Hemoglobin A1C [facility] Start: 11-14-2024 End: 11-14-2024 Patient encounter procedure 11/14/2024 11:40 AM EST [facility]rology [address] [place] [address] Lisa William MD, PhD [address] [place] [address] 3 month virtual visit Neurology Comment on above: 3 month virtual visit Start: 11-05-2024 Advance Directive Discussion Advance Directive Discussion [facility] Start: 10-08-2024 End: 10-08-2024 Patient encounter procedure 10/08/2024 2:00 PM EST [facility]rology [address] [place] [address] Lisa William MD, PhD [address] [place] [address] New Consult Neurology Comment on above: New Consult Start: 09-08-2024 End: 09-08-2024 ambulatory 09/08/2024 12:30 PM EST [facility] Pulmonology [facility] [address] [place] [address] Ubaldo Dubose MD [address] [place] [address] MYC VV Pulmonology [facility] Comment on above: MYC VV Start: 08-25-2024 End: 08-25-2024 Patient encounter procedure [facility] Comment on above: Pulmonary hypertension, unspecified (CMS /HCC); Atherosclerosis of aorta (CMS/HCC) Start: 07-06-2024 Covid-19 Vaccine () Covid-19 Vaccine () [facility] Start: 07-06-2024 Covid-19 Vaccine () Covid-19 Vaccine () [facility] Start: 09-01-2024 Influenza vaccination Influenza Vaccine (#1) [facility] Start: 06-12-2024 End: 06-12-2024 Patient encounter procedure 06/12/2024 2:45 PM EDT Office Visit [facility] [address] [facility] [address] [place] [address] Judit Lora MD [address] [facility] [address] [place] [address] [facility] Start: 05-21-2024 Hemoglobin A1c measurement Diabetes: Hemoglobin A1C [facility] Start: 05-05-2024 End: 05-05-2024 ambulatory 05/05/2024 3:30 PM EDT [facility] Pulmonology [facility] [address] [place] [address] Ubaldo Dubose MD [address] [place], [place] [id number] MYC VV [facility] Comment on above: MYC VV Start: 05-05-2024 End: 05-05-2024 Patient encounter procedure 05/05/2024 3:30 PM EDT Office Visit Pulmonology [facility] [address] [place] [address] Ubaldo Dubose MD [address] [place] [address] Est pt scheduled per Dr. Gracy Morenomo fu pft's Pulmonology [facility] Comment on above: Est pt scheduled per Dr. Gracy Morenomo fu pft's Start: 04-30-2024 End: 04-30-2024 ambulatory Pulmonary Lab Comment on above: Est pt scheduled per Dr. Gracy Morenomo fu pft's [facility] Start: 04-16-2024 End: 04-16-2024 Patient encounter procedure 04/16/2024 12:30 PM EDT Appointment [facility] [address] [facility] [address] [place] [address] [facility] Start: 04-16-2024 End: 04-16-2024 [facility] Start: 04-15-2024 [facility] Start: 04-14-2024 End: 04-14-2024 [facility] Start: 04-14-2024 [facility] Start: 04-13-2024 Referral to neurologist [facility] Start: 04-13-2024 Referral to icer air conditioning [facility] Start: 04-13-2024 Hospital admission [facility] Start: 04-13-2024 [facility] Start: 04-13-2024 Telemedicine consultation with patient [facility] Start: 04-13-2024 [facility] Start: 03-17-2024 End: 03-10-2025 Basic metabolic 2000 panel - Serum or Plasma Basic Metabolic Panel Lab Routine Shortness of breath Medication course changed Expected: 03/17/2024 (Approximate), Expires: 03/10/2025 [facility] Work Phone: Comment on above: Expected: 03/17/2024 (Approximate), Expi res: 03/10/2025 Start: 03-13-2024 Esophagogastroduodenoscopy DH EGD (Not Applicable) [facility] Start: 03-10-2024 End: 03-10-2025 Natriuretic peptide B [Mass/volume] in Blood B-Type Natriuretic Peptide Lab Routine Shortness of breath Cough, unspecified type Abnormal lung sounds Expected: 03/10/2024 (Approximate), Expires: 03/10/2025 [facility] Work Phone: Comment on above: Expected: 03/10/2024 (Approximate), Expi res: 03/10/2025 Start: 03-10-2024 End: 03-10-2026 US Heart Transthoracic Transthoracic Echo Complete Echocardiography Routine Shortness of breath Cough, unspecified type Abnormal lung sounds Expected: 03/10/2024 (Approximate), Expires: 03/10/2026 [facility] Work Phone: Comment on above: Expected: 03/10/2024 (Approximate), Expi res: 03/10/2026 Start: 03-03-2024 End: 03-03-2024 Follow-up encounter 03/03/2024 12:30 PM EDT [facility]mon[facility] [address] [place] [address] Ubaldo Dubose MD [address] [place] [address] follow up Pulmonology [facility] Comment on above: follow up Start: 02-20-2024 Urine screening for protein Diabetes: Urine Protein Screening [facility] Start: 11-05-2023 Advance Directive Discussion Advance Directive Discussion [facility] Start: 11-05-2023 Behavioral Health Screening Behavioral Health Screening [facility] Start: 11-05-2023 Depression Assessment Depression Assessment [facility] Start: 07-06-2023 COVID-19 Vaccine () COVID-19 Vaccine () [facility] Start: 07-06-2023 Covid-19 Vaccine () Covid-19 Vaccine () [facility] Start: 10-27-2022 Hemoglobin A1c measurement Diabetes: Hemoglobin A1C [facility] Start: 07-26-2022 End: 09-25-2022 CBC W Auto Differential panel - Blood CBC + DIFF Lab Routine Well controlled type 2 diabetes mellitus with neurological manifestations (HCC) Unspecified hypothyroidism Expected: 07/26/2022, Expires: 09/25/2022 [facility] Work Phone: Comment on above: Expected: 07/26/2022, Expires: 2 Start: 07-26-2022 End: 09-25-2022 Comprehensive metabolic 2000 panel - Serum or Plasma COMP METABOLIC PANEL Lab Routine Well controlled type 2 diabetes mellitus with neurological manifestations (HCC) Unspecified hypothyroidism Expected: 07/26/2022, Expires: 09/25/2022 [facility] Work Phone: Comment on above: Expected: 07/26/2022, Expires: 2 Start: 07-26-2022 End: 09-25-2022 Hepatic function 2000 panel - Serum or Plasma HEPATIC FUNCTION PNL Lab Routine Dermatophytosis of nail Expected: 07/26/2022, Expires: 09/25/2022 [facility] Work Phone: Comment on above: Expected: 07/26/2022, Expires: 2 Start: 07-26-2022 End: 09-25-2022 Lipid 1996 panel - Serum or Plasma LIPID PANEL BASIC Lab Routine Well controlled type 2 diabetes mellitus with neurological manifestations (HCC) Unspecified hypothyroidism Expected: 07/26/2022, Expires: 09/25/2022 [facility] Work Phone: Comment on above: Expected: 07/26/2022, Expires: 2 Start: 07-26-2022 End: 09-25-2022 Thyrotropin [Units/volume] in Serum or Plasma TSH BLD Lab Routine Well controlled type 2 diabetes mellitus with neurological manifestations (HCC) Unspecified hypothyroidism Expected: 07/26/2022, Expires: 09/25/2022 [facility] Work Phone: Comment on above: Expected: 07/26/2022, Expires: 2 Start: 07-06-2022 Influenza vaccination INFLUENZA (#1) [facility] Start: 02-03-2022 End: 04-05-2022 ALBUMIN/CREAT RATIO RND UR [facility] Work Phone: Comment on above: Expected: 02/03/2022, Expires: 2 Start: 02-03-2022 End: 04-05-2022 LIPID PANEL BASIC [facility] Work Phone: Comment on above: Expected: 02/03/2022, Expires: 2 Start: 02-03-2022 End: 04-05-2022 Thyrotropin [Units/volume] in Serum or Plasma [facility] Work Phone: Comment on above: Expected: 02/03/2022, Expires: 2 Start: 02-03-2022 End: 04-05-2022 Urinalysis complete panel - Urine [facility] Work Phone: Comment on above: Expected: 02/03/2022, Expires: 2 Start: 11-05-2021 ADVANCE DIRECTIVE DISCUSSION ADVANCE DIRECTIVE DISCUSSION [facility] Start: 11-05-2021 COVID-19 VACCINE (4 - Booster for Moderna series) COVID-19 VACCINE (4 - Booster for Moderna series) [facility] Start: 08-04-2021 Pneumococcal Vaccine: 65+ (2 of 2 - PCV) Pneumococcal Vaccine: 65+ (2 of 2 - PCV) [facility] Start: 2021 RSV Vaccine (1 - 1-dose 75+ series) RSV Vaccine (1 - 1-dose 75+ series) [facility] Start: 2011 BONE DENSITY BONE DENSITY [facility] Start: 2011 PNEUMOCOCCAL: 65+ (1 - PCV) PNEUMOCOCCAL: 65+ (1 - PCV) [facility] Start: 2011 PNEUMOVAX AGE 65 AND OVER WITH 5YR LOOKBACK (#1) PNEUMOVAX AGE 65 AND OVER WITH 5YR LOOKBACK (#1) [facility] Start: 2006 RSV patients and/or patients aged 60+ years (1 - 1-dose 60+ series) RSV patients and/or patients aged 60+ years (1 - 1-dose 60+ series) [facility] Start: 2006 RSV Vaccine (1 - 1-dose 60+ series) RSV Vaccine (1 - 1-dose 60+ series) [facility] Start: 1996 SHINGRIX VACCINE (1 of 2) SHINGRIX VACCINE (1 of 2) [facility] Start: 1968 DTaP/Tdap/Td Vaccines (1 - Tdap) DTaP/Tdap/Td Vaccines (1 - Tdap) [facility] Start: 1965 Urine microalbumin profile [facility] Start: 1965 Urine screening for protein Diabetes: Urine Protein Screening [facility] Start: 1964 Anxiety Screening Anxiety Screening [facility] Start: 1964 Depression Screening Depression Screening [facility] Start: 1964 HEPATITIS C SCREENING HEPATITIS C SCREENING [facility] Start: 1964 Hepatitis C screening Hepatitis C Screening [facility] Start: 1958 Adult depression screening assessment DEPRESSION SCREENING [facility] Start: 1956 Diabetic foot examination Diabetes: Foot Exam [facility] Start: 1956 Glaucoma screening Diabetes: Retinopathy Screening [facility] Start: 1946 Medicare Annual Wellness (AWV) Medicare Annual Wellness (AWV) [facility] Start: 1946 Medicare Annual Wellness Visit Medicare Annual Wellness Visit (AWV) [facility] End: 04-22-2025 EPIL EEG LONG EPIL EEG LONG NEUROLOGY Routine Convulsions, unspecified convulsion type (HCC) 1 Occurrences starting 04/22/2024 until 04/22/2025 [facility] Work Phone: Comment on above: 1 Occurrences starting 04/22/2024 until 04/22/2025 End: 07-30-2025 EPIL EEG LONG EPIL EEG LONG NEUROLOGY Routine Convulsions, unspecified convulsion type (HCC) 1 Occurrences starting 07/31/2024 until 07/30/2025 [facility] Work Phone: Comment on above: 1 Occurrences starting 07/31/2024 until 07/30/2025 Glucose measurement estimated from glycated hemoglobin [facility] Hemoglobin A1c/Hemog lobin.total in Blood [facility] End: 01-26-2025 LUNG DIFFUSION CAPACITY (DLCO) LUNG DIFFUSION CAPACITY (DLCO) PFT Routine Bronchiectasis without complication (HCC) 1 Occurrences starting 12/28/2023 until 01/26/2025 [facility] Work Phone: Comment on above: 1 Occurrences starting 12/28/2023 until 01/26/2025 LUNG DIFFUSION CAPACITY (DLCO) L RAMÓN DIFFUSION CAPACITY (DLCO) PFT Routine Bronchiectasis without complication (HCC) 04/30/2024 12:59 PM EDT [facility] Work Phone: Patient Education [facility] Work Phone: Patient referral [facility] Work Phone: End: 01-26-2025 SPIROMETRY BASELINE ONLY SPIROMETRY BASELINE ONLY PFT Routine Bronchiectasis without complication (HCC) 1 Occurrences starting 12/28/2023 until 01/26/2025 [facility] Work Phone: Comment on above: 1 Occurrences starting 12/28/2023 until 01/26/2025 SPIROMETRY BASELINE ONLY SPIROME TRY BASELINE ONLY PFT Routine Bronchiectasis without complication (HCC) 04/30/2024 12:59 PM EDT [facility] Work Phone: URINE CULTURE - [facility] URINE CULTU RE - [facility] Lab Routine 02/25/2025 3:30 PM EDT [facility] Work Phone: URINE MICROALBUMIN B/O URINE ABAD ROALBUMIN B/O Lab Routine Hypothyroidism, adult 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) Mixed hyperlipidemia Ordered: 02/03/2022 [facility] Work Phone: Comment on above: Ordered: 02/03/2022 XR Chest 2 Views [facility] Immunizations Immunization Date Immunization Notes Care Provider Fa [facility] 08-25-2024 Seasonal trivalent influenza vaccine, adjuvanted, preservative free Jose Luis Lockhart PERSONAL CARE ATTENDANT Work Phone: [facility] 08-23-2023 influenza (aIIV4) vaccine, age 65+ yr, quadrivalent, PF (FLUAD QUAD) Ubaldo Dubose MD Work Phone: [facility] 08-23-2023 influenza virus vacc ine, unspecified formulation Ubaldo Dubose MD Work Phone: [facility] 11-10-2022 COVID-19 mRNA Bivale nt Booster (Moderna) DO Jamal Alvarez Work Phone: [facility] 08-17-2022 influenza, high dose seasonal, preservative-free Ubaldo Dubose MD Work Phone: [facility] 05-30-2022 zoster vaccine recombinant Ubaldo Dubose MD Work Phone: [facility] 02-28-2022 zoster vaccine recombinant Ubaldo Dubose MD Work Phone: [facility] 08-16-2021 influenza, high dose seasonal, preservative-free Jamal Alvarez Work Phone: [facility] 07-06-2021 Moderna COVID-19 Vac cine 100 MCG/0.5ML Intramuscular Suspension Jamal Adrian MylesAntonio Work Phone: [facility] 02-03-2021 Moderna COVID-19 Vac cine 100 MCG/0.5ML Intramuscular Suspension Jamal Adrian Antonio Work Phone: [facility] 01-06-2021 Moderna COVID-19 Vac cine 100 MCG/0.5ML Intramuscular Suspension Jamal Adrian Antonio Work Phone: [facility] 08-04-2020 pneumococcal polysaccharide vaccine, 23 valent Jamal Alvarez Work Phone: [facility] 07-15-2020 AS03 adjuvant Ubaldo Dubose MD Work Phone: [facility] 07-15-2020 Seasonal trivalent influenza vaccine, adjuvanted, preservative free Jamal Alvarez Work Phone: [facility] 09-10-2019 AS03 adjuvant Ubaldo Dubose MD Work Phone: [facility] 09-10-2019 Seasonal trivalent influenza vaccine, adjuvanted, preservative free Jamal Alvarez Work Phone: [facility] 07-25-2018 AS03 adjuvant Ubaldo Dubose MD Work Phone: [facility] 07-25-2018 Seasonal trivalent influenza vaccine, adjuvanted, preservative free Jamal Alvarez Work Phone: [facility] 10-22-2017 influenza, injectabl e, quadrivalent, preservative free Jamal Alvarez Work Phone: [facility] 08-17-2016 influenza, high dose seasonal, preservative-free Jamal Alvarez Work Phone: [facility] 11-20-2014 pneumococcal conjuga te vaccine, 13 valent Judit Lora MD Work Phone: [facility] Work Phone: Payers Date Payer Category Payer Medicare (Managed Care) 1.2. [id number] 2021 Medicare [employer] MEDICARE A ETNA MEDICARE PPO [id number] 2021-Present [phone] [address] [place] [address] PPO [id number] 2021 Medicare [id number] 1959 Medicare [id number] 1959 Private Health Insurance [id number] 1946 Unknown [id number] 93 1946 Unknown [id number] 93 1946 Unknown [id number] 93 1946 Unknown [id number] 1946 Unknown [id number] 244 1946 Unknown [id number] 259 1946 Unknown [id number] 259 1946 Unknown [id number] 259 1946 Unknown [id number] 1945 Unknown [id number] 1945 Unknown [id number] Medicaid [id number] Medicare [id number] Medicare Medicare [id number] Private Health Insurance [id number] [id number] Private Health Insurance Aetna MCR PFFS M [id number] Self-pay Self Pay [id number] Unknown [id number] Unknown [id number] Unknown AETNA Unknown HCAP/HFA/FAP Active [id number] Social History Date Type Detail Facility Tobacco smoking stat [facility] Unknown if ever smoked [facility] Start: 1945 Sex Assigned At Female F [facility] Start: 06-29-2020 End: 02-22-2024 No caffeine use No caffeine use [facility] [address] DO Work Phone: Comment on above: Quit 1979; Start: 06-29-2020 End: 02-22-2024 Tobacco smoking status NHIS Ex-smoker [facility] Start: 11-05-1969 End: 11-05-1979 History of tobacco use Current smoker [facility] Start: 11-05-1969 End: 11-05-1979 History of tobacco use Cigarette Smoker [facility] Start: 06-29-2020 End: 08-13-2024 Alcohol intake Current non-drinker of alcohol (finding) [facility] Start: 1945 Sex Assigned At Not on file [facility] Start: 06-29-2020 End: 02-22-2024 Tobacco use and exposure Smokeless tobacco non-user [facility] Start: 06-29-2020 End: 02-22-2024 Tobacco use panel [facility] National Score (1-10 0), lower number is lower risk Not on file [facility] Start: 03-10-2024 End: 03-25-2025 Alcoholic beverage intake Lifetime non-drinker (finding) [facility] Work Phone: Start: 02-29-2024 End: 03-10-2024 Exposure to SARS-CoV-2 (event) Not sure [facility] History of tobacco use Passive smoker [facility] How often to you hav e a drink containing alcohol? Never [facility] Start: 08-13-2023 Alcohol Comment caffeine: 1-2 cups per day tea [facility] Start: 11-21-2024 End: 03-15-2025 Sex Female (finding) [facility] Start: 03-15-2025 SDOH Follow up SDOH Follow up [facility] Work Phone: Medical Equipment Procedure Code Equipment Code Equipment Origin al Text Equipment Identifier Dates Implantable incontinence-contro l electrical stimulation system [id number] FDA Start: 10-25-2021 [id number] FDA Start: 10-25-2021 [id number], [id number], [id number], [id number], [id number] Start: 08-07-2023 Comment on above: USE TO TEST ONCE PIERRE LY EVERY MORNING. Goals Date Patient Goal Desired Activity /State Functional Status Date Assessment Result Facility 03-14-2025 Functional status Patient at Baseline [facility] Work Phone: 04-16-2024 Functional status Patient at Baseline [facility] Work Phone: Mental Status Date Assessment Result Facility 03-14-2025 Cognitive function Cognitive Sta tus Patient at Baseline [facility] Work Phone: 04-16-2024 Cognitive function Cognitive Sta tus Patient at Baseline [facility] Work Phone: Clinical Notes 10-20-2021 to 04-08-2025 Result Encounter Note - Jamal Alvarez DO - 04/08/2025 8:04 AM EDTResult Encounter Note - Jamal Alvarez DO - 04/08/2025 8:04 AM EDTTelephone Encounter - Jyoti Silva - 03/20/2025 1:34 PM EDT Note Date & Type Note Facility 04-08-2025 Progress note Formatting of t his note might be different from the original. Call xray with no frx or tumor seen, jsut advanced DJD. Can make ref to pain mgt if needed. [facility] 04-08-2025 Miscellaneous Notes Call xray with no frx or tumor seen, jsut advanced DJD. Can make ref to pain mgt if needed. documented in this encounter [facility] 03-20-2025 Telephone encounter Note The following approved medication requests have been transmitted electronically. Requested Prescriptions Signed Prescriptions Disp Refills cannabidiol (EPIDIOLEX) 100 mg/mL oral liquid 120 mL 1 Sig: Take 2 mL by mouth two times a day. Authorizing Provider: KAE LUTZ PA-C [facility] 03-20-2025 Miscellaneous Notes The following approved medication requests have been transmitted electronically. Requested Prescriptions Signed Prescriptions Disp Refills cannabidiol (EPIDIOLEX) 100 mg/mL oral liquid 120 mL 1 Sig: Take 2 mL by mouth two times a day. Authorizing Provider: KAE LUTZ PA-C [facility] 12/24/24 [facility] Patient pharmacy requesting refills as follows: Requested Prescriptions Pending Prescriptions Disp Refills cannabidiol (EPIDIOLEX) 100 mg/mL oral liquid 120 mL 1 Sig: Take 2 mL by mouth two times a day. Please review and advise. Jyoti Silva documented in this encounter [facility] 03-20-2025 Telephone encounter Note [facility] 12/24/24 [facility] Patient pharmacy requesting refills as follows: Requested Prescriptions Pending Prescriptions Disp Refills cannabidiol (EPIDIOLEX) 100 mg/mL oral liquid 120 mL 1 Sig: Take 2 mL by mouth two times a day. Please review and advise. Jyoti Silva [facility] 03-18-2025 Note HNO ID: [id number] Author: UBALDO DUBOSE MD Service: ? Author Type: Physician Type: Progress Notes Filed: 03/18/2025 11:20 Note Text: Received message from daughter that Ms. Reynaga was recently diagnosed with pneumonia and is unable to clear her secretions due to a weak cough. She has been using an afflo vest but it is no longer working with her anatomy with straps over shoulder which effects compliance. Patient requires vest therapy due to bronchiectasis as seen on patient's most recent CT scan. Patient tried acapella and nebulized medications but both were unsuccessful in mobilizing secretions. In addition, patient has had a daily productive cough for at least 6 months. I think she would benefit from a smart vest to help mobilize secretions. Ubaldo Dubose MD March 18, 2025 11:18 AM [facility] 03-18-2025 History of Presen t illness Narrative Received message from daughter that Ms. Reynaga was recently diagnosed with pneumonia and is unable to clear her secretions due to a weak cough. She has been using an afflo vest but it is no longer working with her anatomy with straps over shoulder which effects compliance. Patient requires vest therapy due to bronchiectasis as seen on patient's most recent CT scan. Patient tried acapella and nebulized medications but both were unsuccessful in mobilizing secretions. In addition, patient has had a daily productive cough for at least 6 months. I think she would benefit from a smart vest to help mobilize secretions. Ubaldo Dubose MD March 18, 2025 11:18 AM documented in this encounter [facility] 03-15-2025 Discharge summary Note Date/Time March 15, 2025 3:38p m [facility] [address] [place] [address] Discharge Summary Signed Patient: Karuna Reynaga MR#: [id number] : 1945 Acct:[id number] Age/Sex: 80 / F Adm Date: 5 Loc: Room: [address] [place] [address]: Renan Murguia MD Copies to: MD Jamal Lanier,DO~ Providers Date of Discharge: 03/15/25 Discharging Provider: Renan Murguia Primary Care Provider: Jamal Alvarez Consults: 03/14/25 02:00 Consult to Cardiology Routine Comment: Consulting Provider: [facility] - Cardiology Reason For Exam: elevated troponin Has Provider Been Notified: Yes Date of Notification: 03/14/25 Time of Notification: 04:39 Consult to Occupational Therapy Routine Comment: Physician Instructions: Consult to OT for:: Evaluation and Treat Consult to Physical Therapy Routine Comment: Physician Instructions: Consult to PT for:: Evaluation and Treat Discharge Diagnosis Final Diagnosis Final Discharge Diagnosis: Acute bronchiectasis exacerbation due to human metapneumovirus, with possible superimposed bacterial infection Non-STEMI type II in the setting of the above Chronic problems Bronchiectasis Interstitial lung disease Nephrolithiasis Osteopenia Mild dementia IBS Dyslipidemia History of TBI 2003 Diabetes Hypothyroidism Frequent UTI Summary Hospital Course Hospital course: Patient is a pleasant 80-year-old female, with history of bronchiectasis, on chronic therapy with azithromycin. She presents to the Emergency Department on the March 14, complaining of fever productive cough and weakness. Evaluation including CT chest showed findings consistent with acute bronchitis, possible pneumonia. She tested positive for human metapneumovirus infection. She was admitted to the hospital where she continues treatment with azithromycin, ceftriaxone was added. No complications occurred. She briefly needed physical oxygen supplementation but then she was weaned off to room air. Cardiology service was consulted due to abnormal cardiac troponin, but this was considered to be a demand supply mild ischemic event. She was discharged home in stable condition on March 15. She will continue 5 more days of oral cefpodoxime to complete a total 7-day course of cephalosporin. Time Spent with Patient Time spent providing/coordinating discharge services (# min): 40 Discharge Plan Discharge Plan Patient Disposition: Home Health [facility] Activity: No Activity Restriction Diet: Regular Additional Instructions: Home Health to manage care: - Full code - PT eval and treat - Routine vital signs - Medication management and education - Instructions: Cefpodoxime, RSV in adults - Discharge instructions, Know your Meds Prescriptions: New cefpodoxime 200 mg tablet 200 mg PO BID 5 Days Qty: 10 0RF Rx Instructions: must administer with a meal/food; start 03/16/25 evening Continued levothyroxine 50 mcg tablet 50 mcg PO QAM Rx Instructions: daily except for sunday oxybutynin chloride 5 mg tablet extended release 24hr 5 mg PO QHS omeprazole 40 mg capsule,delayed release(DR/EC) 40 mg PO QAM furosemide [Lasix] 20 mg tablet 10 mg PO DAILY clopidogrel 75 mg tablet 75 mg PO QHS Patient Comments: TAKE 1 TABLET BY MOUTH EVERY DAY ibandronate [Boniva] 150 mg Tablet 150 mg PO Q30D Rx Instructions: on the first of every month cholecalciferol (vitamin D3) [Vitamin D3] 50 mcg (2,000 unit) Capsule 50 mcg PO QHS loperamide 2 mg capsule 2 mg PO QAM PRN (Reason: loose stool) liothyronine 5 mcg tablet 5 mcg PO QAM azithromycin 250 mg tablet 250 mg PO MOWEFR nitrofurantoin monohyd/m-cryst 100 mg capsule 100 mg PO .bxgf-qroeo-wku simvastatin 20 mg tablet 20 mg PO QHS Other Ambulatory Orders: Initiate Home Health (Routine) Timeframe: 1 Day Location: Determined by Patient Ordered By: Renan Murguia Follow Up: Jamal Alvarez DO [Primary Care Provider] - (Call office on Sunday to schedulefollow-up with your Primary Care Provider within 3-5 days of discharge. ) Continuity of Care Document Health Concerns: A [facility] screening has identified you as FRAIL or AT RISK FOR FRAILTY. This puts you at a higher risk for infection, illness, falls,and other injuries. Here are four ways to help you reduce your risk of frailty: 1. IDENTIFY EARLY SIGNS OF FRAILTY ? Discuss contributing factors and concerns with your doctor 2. BE ACTIVE ? Walking and light strengthening exercises will help reduce weakness 3. EAT WELL ? Aim for three healthy meals a day that are high in protein 4. THINK POSITIVE ? Keep your mind active by being sociable and continuing to learn References: Stay Strong: Four Ways to Beat the Frailty Risk https://www[facility].org/health/bvazlfkf-sww-k revention/htuy-dcqjbr-hdcw- xfqo-dt-krac-kee-ycgmtly-pkqx Exam Physical Exam Vital Signs: Temp Pulse Resp BP Pulse Ox O2 Del Method O2 Flow Rate 97.8 F 80 18 96/62 L 95 Room Air 2 03/15/25 08:00 03/15/25 11:24 03/15/25 11:24 03/15/25 08:00 03/15/25 08:00 03/15/25 08:00 03/14/25 08:00 Diagnostic Studies Completed and Pending Studies Pending studies at discharge: 03/13/25 23:11 Urine Culture Stat 03/13/25 23:57 ECG 12 lead ECG Stat 03/14/25 00:09 Blood Culture Stat 03/14/25 02:00 Sputum Culture Routine Preliminary micro results at discharge 03/13/25 23:11 Urine Culture - Preliminary Clean Void Midstream <9,000 colonies/ml mixed bacterial skin contaminants 1 Day 03/14/25 00:09 Blood Culture - Preliminary Blood No Growth 1 Day 03/14/25 00:02 Blood Culture - Preliminary Blood - Left Antecubital No Growth 1 Day Documented By: Renan Murguia MD 03/15/25 1343 Signed By: <Electronically signed by Renan Murguia MD> 03/15/25 3227 [facility] Work Phone: 1(957) 880-286705-11-2025 Progress note Author Renan Murguia [facility] Note Date/Time March 15, 2025 1:54p m [facility] [address] [place] [address] Hospitalist Progress Note Signed Patient: Karuna Reynaga MR#: [id number] : 1945 Acct:[id number] Age/Sex: 80 / F Adm Date: 5 Loc: 3T Room: [address] [place] [address] Type: ADM IN Attending Dr: Renan Murguia MD Copies to: ~ Date of Service: 03/15/2025 Subjective Subjective Narrative: Patient is sitting in the chair. She has no complaints. On examination minimal rhonchi bilaterally. No rales or wheezes. Point of ultrasound of the heart is unremarkable. Central venous pressure measured in bilateral jugular veins approximately 5 cm of water. No signs of heart failure. Abdomen soft benign Neurological nonfocal Exam Physical Exam Vital Signs: Temp Pulse Resp BP Pulse Ox O2 Del Method O2 Flow Rate 97.8 F 80 18 96/62 L 95 Room Air 2 03/15/25 08:00 03/15/25 11:24 03/15/25 11:24 03/15/25 08:00 03/15/25 08:00 03/15/25 08:00 03/14/25 08:00 Objective Lab Results 03/14/25 10:35 03/13/25 22:38 Microbiology Results Microbiology 03/13/25 23:11 Clean Void Midstream Urine Culture - Preliminary <9,000 colonies/ml mixed bacterial skin contaminants 1 Day 03/14/25 00:09 Blood Blood Culture - Preliminary No Growth 1 Day 03/14/25 00:02 Blood - Left Antecubital Blood Culture - Preliminary No Growth 1 Day Meds Allergies and Active Meds Allergies codeine Allergy (Verified 03/13/25 17:15) Unknown Reaction strawberry Allergy (Verified 03/13/25 17:15) Nausea midazolam (From Versed) Adverse Reaction (Verified 03/13/25 17:15) Confusion Sulfa (Sulfonamide Antibiotics) Adverse Reaction (Verified 03/13/25 17:15) Rash opiates Adverse Reaction (Uncoded 01/09/23 10:55) Confusion Active Meds: Active Medications Generic Name Dose Route Start Last Admin Trade Name Gustavo PRN Reason Stop Dose Admin Acetaminophen 1,000 mg 03/14/25 02:00 03/14/25 20:45 Acetaminophen 500 Mg Tablet PO 03/14/26 01:59 1,000 mg Q6HR PRN Administration Pain Scale 1 - 3 or fever Albuterol 2.5 mg 03/14/25 02:32 03/15/25 01:23 Albuterol Neb 2.5 Mg/3 Ml Vial.Neb INHALATION 03/14/26 02:31 2.5 mg Q2H PRN Administration Shortness Of Breath Albuterol/Ipratropium 3 ml 03/14/25 08:00 03/15/25 11:22 Ipratropium/Albuterol 0.5-3 Mg 3 Ml Ampul.Neb INHALATION 03/14/26 07:59 3 ml QID.RESP MIRYAM Administration Atorvastatin Calcium 10 mg 03/14/25 21:00 03/14/25 20:44 Atorvastatin 10 Mg Tablet PO 03/14/26 20:59 10 mg QPM MIRYAM Administration Azithromycin 500 mg 03/15/25 09:00 03/15/25 10:33 Azithromycin 250 Mg Tablet PO 500 mg DAILY MIRYAM Administration Clopidogrel Bisulfate 75 mg 03/14/25 22:00 03/14/25 21:22 Clopidogrel Bisulfate 75 Mg Tablet PO 03/14/26 21:59 Not Given QHS MIRYAM Guaifenesin 1,200 mg 03/14/25 21:00 03/15/25 10:33 Guaifenesin 600 Mg Tab.Er.12h PO 03/14/26 20:59 Not Given BID MIRYAM Ceftriaxone Sodium 1 gm in 50 mls @ 100 mls/hr 03/15/25 00:30 03/15/25 00:35 Rocephin IV 100 mls/hr Q24H MIRYAM Administration Levothyroxine Sodium 50 mcg 03/14/25 06:30 03/14/25 06:33 Levothyroxine 50 Mcg Tablet PO 03/14/26 06:29 50 mcg [id number] MIRYAM Administration Liothyronine Sodium 5 mcg 03/14/25 16:30 03/15/25 10:33 Liothyronine 5 Mcg Tablet PO 03/14/26 16:29 5 mcg QAM MIRYAM Administration Loperamide HCl 2 mg 03/14/25 02:06 Loperamide 2 Mg Capsule PO 03/14/26 02:05 QAM PRN loose stool Melatonin 5 mg 03/14/25 02:00 Melatonin 5 Mg Tablet PO 03/14/26 01:59 QHS PRN Insomnia Ondansetron HCl 4 mg 03/14/25 02:00 Ondansetron 4 Mg/2 Ml Vial IV-PUSH 03/14/26 01:59 Q6H PRN Nausea And Vomiting Oxybutynin Chloride 5 mg 03/14/25 21:00 03/14/25 20:44 Oxybutynin Chloride 5 Mg Tab.Er.24 PO 03/14/26 20:59 5 mg QPM MIRYAM Administration Pantoprazole Sodium 40 mg 03/14/25 09:00 03/15/25 10:33 Pantoprazole 40 Mg Tablet. PO 03/14/26 08:59 40 mg BID MIRYAM Administration Rivaroxaban 10 mg 03/15/25 09:00 03/15/25 10:37 Rivaroxaban 10 Mg Tablet PO 03/15/26 08:59 Not Given DAILY MIRYAM Sodium Chloride 0 ml 03/13/25 17:14 Sodium Chloride 0.9 % 10 Ml Syringe IV-PUSH 03/13/26 17:13 PRN PRN Flush A&P - Hospitalist Assessment/Plan (1) Community acquired pneumonia: Plan . Patient is stable to be discharged home. No evidence of heart failure. Appreciate input from cardiology. Documented By: Renan Murguia MD 03/15/25 1335 Signed By: <Electronically signed by Renan Murguia MD> 03/15/25 5800 [facility] Work Phone: [phone]) 101-136505-11-2025 [place] [address] Discharge Summary Signed Patient: Karuna Reynaga MR#: [id number] : 1945 Acct:[id number] Age/Sex: 80 / F Adm Date: 5 Loc: Room: [address] [place] [address]: Renan Murguia MD Copies to: MD Jamal Lanier,DO~ Providers Date of Discharge: 03/15/25 Discharging Provider: Renan Murguia Primary Care Provider: Jamal Alvarez Consults: 03/14/25 02:00 Consult to Cardiology Routine Comment: Consulting Provider: [facility] - Cardiology Reason For Exam: elevated troponin Has Provider Been Notified: Yes Date of Notification: 03/14/25 Time of Notification: 04:39 Consult to Occupational Therapy Routine Comment: Physician Instructions: Consult to OT for:: Evaluation and Treat Consult to Physical Therapy Routine Comment: Physician Instructions: Consult to PT for:: Evaluation and Treat Discharge Diagnosis Final Diagnosis Final Discharge Diagnosis: Acute bronchiectasis exacerbation due to human metapneumovirus, with possible superimposed bacterial infection Non-STEMI type II in the setting of the above Chronic problems Bronchiectasis Interstitial lung disease Nephrolithiasis Osteopenia Mild dementia IBS Dyslipidemia History of TBI 2003 Diabetes Hypothyroidism Frequent UTI Summary Hospital Course Hospital course: Patient is a pleasant 80-year-old female, with history of bronchiectasis, on chronic therapy with azithromycin. She presents to the Emergency Department on the March 14, complaining of fever productivecough and weakness. Evaluation including CT chest showed findings consistent with acute bronchitis,possible pneumonia. She tested positive for human metapneumovirus infection. She was admitted to the hospital where she continues treatment with azithromycin, ceftriaxone was added. No complications occurred. She briefly needed physical oxygen supplementation but then she wasweaned off to room air. Cardiology service was consulted due to abnormal cardiac troponin, but thiswas considered to be a demand supply mild ischemic event. She was discharged home in stable condition on March 15. She will continue 5 more days of oral cefpodoxime to complete a total 7-day course of cephalosporin. Time Spent with Patient Time spent providing/coordinating discharge services (# min): 40 Discharge Plan Discharge Plan Patient Disposition: Home Health [facility] Activity: No Activity Restriction Diet: Regular Additional Instructions: Home Health to manage care: - Full code - PT eval and treat - Routine vital signs - Medication management and education - Instructions: Cefpodoxime, RSV in adults - Discharge instructions, Know your Meds Prescriptions: New cefpodoxime 200 mg tablet 200 mg PO BID 5 Days Qty: 10 0RF Rx Instructions: must administer with a meal/food; start 03/16/25 evening Continued levothyroxine 50 mcg tablet 50 mcg PO QAM Rx Instructions: daily except for sunday oxybutynin chloride 5 mg tablet extended release 24hr 5 mg PO QHS omeprazole 40 mg capsule,delayed release(DR/EC) 40 mg PO QAM furosemide [Lasix] 20 mg tablet 10 mg PO DAILY clopidogrel 75 mg tablet 75 mg PO QHS Patient Comments: TAKE 1 TABLET BY MOUTH EVERY DAY ibandronate [Boniva] 150 mg Tablet 150 mg PO Q30D Rx Instructions: on the first of every month cholecalciferol (vitamin D3) [Vitamin D3] 50 mcg (2,000 unit) Capsule 50 mcg PO QHS loperamide 2 mg capsule 2 mg PO QAM PRN (Reason: loose stool) liothyronine 5 mcg tablet 5 mcg PO QAM azithromycin 250 mg tablet 250 mg PO MOWEFR nitrofurantoin monohyd/m-cryst 100 mg capsule 100 mg PO .bukr-mquiq-zll simvastatin 20 mg tablet 20 mg PO QHS Other Ambulatory Orders: Initiate Home Health (Routine) Timeframe: 1 Day Location: Determined by Patient Ordered By: Renan Murguia Follow Up: Jamal Alvarez DO [Primary Care Provider] - (Call office on Sunday to schedulefollow-up with your Primary Care Provider within 3-5 days of discharge. ) Continuity of Care Document Health Concerns: A [facility] screening has identified you as FRAIL or AT RISK FOR FRAILTY. This puts you at a higher risk for infection, illness, falls,and other injuries. Here are four ways to help you reduce your risk of frailty: 1. IDENTIFY EARLY SIGNS OF FRAILTY ? Discuss contributing factors and concerns with your doctor 2. BE ACTIVE ? Walking and light strengthening exercises will help reduce weakness 3. EAT WELL ? Aim for three healthy meals a day that are high in protein 4. THINKPOSITIVE ? Keep your mind active by being sociable and continuing to learn References: Stay Strong:Four Ways to Beat the Frailty Risk https://www.[facility].org/health/molkwemq-plr-xsbzwjntdc/st yt-tjplcv-gwwk- qfvw-fz-ztrh-ihp-lixtadq-wkcx Exam Physical Exam Vital Signs: Temp Pulse Resp BP Pulse Ox O2 Del Method O2 Flow Rate 97.8 F 80 18 96/62 L 95 Room Air 2 03/15/25 08:00 03/15/25 11:24 03/15/25 11:24 03/15/25 08:00 03/15/25 08:00 03/15/25 08:00 03/14/25 08:00 Diagnostic Studies Completed and Pending Studies Pending studies at discharge: 03/13/25 23:11 Urine Culture Stat 03/13/25 23:57 ECG 12 lead ECG Stat 03/14/25 00:09 Blood Culture Stat 03/14/25 02:00 Sputum Culture Routine Preliminary micro results at discharge 03/13/25 23:11 Urine Culture - Preliminary Clean Void Midstream <9,000 colonies/ml mixed bacterial skin contaminants 1 Day 03/14/25 00:09 Blood Culture - Preliminary Blood No Growth 1 Day 03/14/25 00:02 Blood Culture - Preliminary Blood - Left Antecubital No Growth 1 Day Documented By: Renan Murguia MD 03/15/25 1343 Signed By: 03/15/25 1538 [facility]05-11-2025 [place] [address] Hospitalist Progress Note Signed Patient: Karuna Reynaga MR#: [id number] : 1945 Acct:[id number] Age/Sex: 80 / F Adm Date: 5 Loc: Room: [address] [place] [address] Type: ADM IN Attending Dr: Renan Murguia MD Copies to: ~ Date of Service: 03/15/2025 Subjective Subjective Narrative: Patient is sitting in the chair. She has no complaints. On examination minimal rhonchi bilaterally. No rales or wheezes. Point of ultrasound of the heart is unremarkable. Central venous pressure measured in bilateral jugular veins approximately 5 cm of water. No signs of heart failure. Abdomen soft benign Neurological nonfocal Exam Physical Exam Vital Signs: Temp Pulse Resp BP Pulse Ox O2 Del Method O2 Flow Rate 97.8 F 80 18 96/62 L 95 Room Air 2 03/15/25 08:00 03/15/25 11:24 03/15/25 11:24 03/15/25 08:00 03/15/25 08:00 03/15/25 08:00 03/14/25 08:00 Objective Lab Results 03/14/25 10:35 03/13/25 22:38 Microbiology Results Microbiology 03/13/25 23:11 Clean Void Midstream Urine Culture - Preliminary <9,000 colonies/ml mixed bacterial skin contaminants 1 Day 03/14/25 00:09 Blood Blood Culture - Preliminary No Growth 1 Day 03/14/25 00:02 Blood - Left Antecubital Blood Culture - Preliminary No Growth 1 Day Meds Allergies and Active Meds Allergies codeine Allergy (Verified 03/13/25 17:15) Unknown Reaction strawberry Allergy (Verified 03/13/25 17:15) Nausea midazolam (From Versed) Adverse Reaction (Verified 03/13/25 17:15) Confusion Sulfa (Sulfonamide Antibiotics) Adverse Reaction (Verified 03/13/25 17:15) Rash opiates Adverse Reaction (Uncoded 01/09/23 10:55) Confusion Active Meds: Active Medications Generic Name Dose Route Start Last Admin Trade Name Freq PRN Reason Stop Dose Admin Acetaminophen 1,000 mg 03/14/25 02:00 03/14/25 20:45 Acetaminophen 500 Mg Tablet PO 03/14/26 01:59 1,000 mg Q6HR PRN Administration Pain Scale 1 - 3 or fever Albuterol 2.5 mg 03/14/25 02:32 03/15/25 01:23 Albuterol Neb 2.5 Mg/3 Ml Vial.Neb INHALATION 03/14/26 02:31 2.5 mg Q2H PRN Administration Shortness Of Breath Albuterol/Ipratropium 3 ml 03/14/25 08:00 03/15/25 11:22 Ipratropium/Albuterol 0.5-3 Mg 3 Ml Ampul.Neb INHALATION 03/14/26 07:59 3 ml QID.RESP MIRYAM Administration Atorvastatin Calcium 10 mg 03/14/25 21:00 03/14/25 20:44 Atorvastatin 10 Mg Tablet PO 03/14/26 20:59 10 mg QPM MIRYAM Administration Azithromycin 500 mg 03/15/25 09:00 03/15/25 10:33 Azithromycin 250 Mg Tablet PO 500 mg DAILY MIRYAM Administration Clopidogrel Bisulfate 75 mg 03/14/25 22:00 03/14/25 21:22 Clopidogrel Bisulfate 75 Mg Tablet PO 03/14/26 21:59 Not Given QHS MIRYAM Guaifenesin 1,200 mg 03/14/25 21:00 03/15/25 10:33 Guaifenesin 600 Mg Tab.Er.12h PO 03/14/26 20:59 Not Given BID MIRYAM Ceftriaxone Sodium 1 gm in 50 mls @ 100 mls/hr 03/15/25 00:30 03/15/25 00:35 Rocephin IV 100 mls/hr Q24H MIRYAM Administration Levothyroxine Sodium 50 mcg 03/14/25 06:30 03/14/25 06:33 Levothyroxine 50 Mcg Tablet PO 03/14/26 06:29 50 mcg [id number] MIRYAM Administration Liothyronine Sodium 5 mcg 03/14/25 16:30 03/15/25 10:33 Liothyronine 5 Mcg Tablet PO 03/14/26 16:29 5 mcg QAM MIRYAM Administration Loperamide HCl 2 mg 03/14/25 02:06 Loperamide 2 Mg Capsule PO 03/14/26 02:05 QAM PRN loose stool Melatonin 5 mg 03/14/25 02:00 Melatonin 5 Mg Tablet PO 03/14/26 01:59 QHS PRN Insomnia Ondansetron HCl 4 mg 03/14/25 02:00 Ondansetron 4 Mg/2 Ml Vial IV-PUSH 03/14/26 01:59 Q6H PRN Nausea And Vomiting Oxybutynin Chloride 5 mg 03/14/25 21:00 03/14/25 20:44 Oxybutynin Chloride 5 Mg Tab.Er.24 PO 03/14/26 20:59 5 mg QPM MIRYAM Administration Pantoprazole Sodium 40 mg 03/14/25 09:00 03/15/25 10:33 Pantoprazole 40 Mg Tablet. PO 03/14/26 08:59 40 mg BID MIRYAM Administration Rivaroxaban 10 mg 03/15/25 09:00 03/15/25 10:37 Rivaroxaban 10 Mg Tablet PO 03/15/26 08:59 Not Given DAILY MIRYAM Sodium Chloride 0 ml 03/13/25 17:14 Sodium Chloride 0.9 % 10 Ml Syringe IV-PUSH 03/13/26 17:13 PRN PRN Flush A&P - Hospitalist Assessment/Plan (1) Community acquired pneumonia: Plan . Patient is stable to be discharged home. No evidence of heart failure. Appreciate input from cardiology. Documented By: Renan Murguia MD 03/15/25 9205 Signed By: 03/15/25 1354 [facility]05-10-2025 Consult note Author Praveena Garcia [facility] Note Date/Time March 14, 2025 3:10p m [facility] [address] [place] [address] Cardiology Consult Note Signed Patient: Karuna Reynaga MR#: [id number] : 1945 Acct:[id number] Age/Sex: 80 / F Adm Date: 5 Loc: 3T Room: [address] [place] [address] Type: ADM IN Attending Dr: Renan Murguia MD Copies to: MD Jamal Lanier DO Linda Njoroge, MD~ Cardiology HPI History of Present Illness Consult Date: 03/14/25 Reason for Consult: Elevated troponin HPI: Ms. 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 Labs on presentation were significant for elevated troponin for 37--4 3--397. EKG showed sinus tachycardia with no ischemic changes. Notably she had a similar presentation last year and she underwent Lexiscan stress MPI which was negative for ischemia. Echo at the time showed normal [id number]% with moderately dilated RV and mild pulmonary hypertension. Repeat limited echo today shows normal LV function 60-65% with normal wall motion. Shedenies any chest pain, palpitations, lightheadedness, dizziness, BLE edema, orthopnea or PND. Review of Systems Review of Systems All other systems reviewed & are negative unless noted below or in HPI [facility] Medical History Idiopathic interstitial pulmonary disease Osteopenia Osteoarthritis Eczema [...] Medications and Allergies Allergies codeine Allergy (Verified 03/13/25 17:15) Unknown Reaction strawberry Allergy (Verified 03/13/25 17:15) Nausea midazolam (From Versed) Adverse Reaction (Verified 03/13/25 17:15) Confusion Sulfa (Sulfonamide Antibiotics) Adverse Reaction (Verified 03/13/25 17:15) Rash opiates Adverse Reaction (Uncoded 01/09/23 10:55) Confusion Home Medications cholecalciferol (vitamin D3) 50 mcg (2,000 unit) capsule (Vitamin D3) 50 mcg PO QHS 10/17/21 [History Confirmed 03/14/25] clopidogrel 75 mg tablet 75 mg PO QHS 10/17/21 [History Confirmed 03/14/25] ibandronate 150 mg tablet (Boniva) 150 mg PO Q30D 10/17/21 [History Confirmed 03/14/25] liothyronine 5 mcg tablet 5 mcg PO QAM 12/26/22 [History Confirmed 03/14/25] loperamide 2 mg capsule 2 mg PO QAM PRN loose stool 02/21/24 [History Confirmed 03/14/25] levothyroxine 50 mcg tablet 50 mcg PO QAM 02/22/24 [History Confirmed 03/14/25] oxybutynin chloride 5 mg tablet,extended release 24 hr 5 mg PO QHS 02/22/24 [History Confirmed 03/14/25] furosemide 20 mg tablet (Lasix) 10 mg PO DAILY 04/13/24 [History Confirmed 03/14/25] omeprazole 40 mg capsule,delayed release 40 mg PO QAM 04/13/24 [History Confirmed 03/14/25] azithromycin 250 mg tablet 250 mg PO MOWEFR 03/14/25 [History Confirmed 03/14/25] nitrofurantoin monohydrate/macrocrystals 100 mg capsule 100 mg PO .[id number] 03/14/25 [History Confirmed 03/14/25] simvastatin 20 mg tablet 20 mg PO QHS 03/14/25 [History Confirmed 03/14/25] Exam Physical Exam Vital Signs: Temp Pulse Resp BP Pulse Ox O2 Del Method O2 Flow Rate 98.0 F 20 L 94 H 106/71 95 Room Air 2 03/14/25 11:05 03/14/25 12:27 03/14/25 12:27 03/14/25 11:03/14/25 11:03/14/25 11:03/14/25 04:00 Narrative: GEN: Awake and alert. No acute distress. Neck: No JVD. Lungs: Coarse rhonchi R.L Heart: Regular rate and rhythm. Normal S1 and S2. No murmurs or rubs appreciated. Abdomen: Soft, nontender, nondistended, bowel sounds present. Extremities: No BLE edema. Neuro: No focal deficits. Results - Cardiology Labs 03/14/25 10:35 03/13/25 22:38 Lab results: Cardiac Enzymes 03/13/25 Range/Units 22:38 B-Natriuretic Peptide 28.0 (5-100) pg/mL CBC 03/13/25 03/14/25 Range/Units 22:38 10:35 RBC 4.52 4.27 (3.60-5.00) x10E6/uL Hgb 13.5 12.7 (11.8-15.4) g/dL Hct 40.5 38.5 (34.0-46.4) % Plt Count 206 169 (150-450) x10E3/uL Neut # (Auto) 3.7 5.0 (1.8-7.7) x10E3/uL Lymph # (Auto) 1.3 1.2 (1.00-4.8) x10E3/uL [place] # (Auto) 0.5 0.6 (0.0-0.8) x10E3/uL Eos # (Auto) 0.1 0.1 (0.0-0.45) x10E3/uL Baso # (Auto) 0.0 0.0 (0.0-0.2) x10E3/uL Comprehensive Metabolic Panel 03/13/25 Range/Units 22:38 Sodium 138 (136-145) mmol/L Potassium 3.7 (3.5-5.1) mmol/L Chloride 102 (98-107) mmol/L Carbon Dioxide 28.5 (21.0-31.0) mmol/L BUN 26 H (7-25) mg/dL Creatinine 0.74 (0.60-1.20) mg/dL Glucose 116 H (70-100) mg/dL Calcium 9.6 (8.6-10.3) mg/dL Intake and Output 03/13/25 03/14/25 03/14/25 23:59 07:59 15:59 Intake Total 400 / 400 Balance 400 / 400 Intake: IV 300 / 300 Azithromycin 500Mg-*Ns* 500 mg 250 / 250 In 250 ml @ 250 mls/hr IV ONCE ONE Rx#:[id number] cefTRIAXone 1GM-*NS* 1 gm In 50 50 / 50 ml @ 100 mls/hr IV ONCE ONE Rx #:[id number] Oral 100 / 100 Other: # Voids 1 Weight 60.05 kg 59.3 kg Date of Last Bowel Movement 03/13/25 03/13/25 Patient Weight 03/14/25 23:59 Weight 59.3 kg A&P - Cardiology (1) Elevated troponin: Code(s): R79.89 - Other specified abnormal findings of blood chemistry (2) Acute hypoxic respiratory failure: Code(s): J96.01 - Acute respiratory failure with hypoxia (3) Community acquired pneumonia: Code(s): J18.9 - Pneumonia, unspecified organism (4) Weakness: Code(s): R53.1 - Weakness (5) Human metapneumovirus pneumonia: Code(s): J12.3 - Human metapneumovirus pneumonia Plan Assessment: Type II MA in the setting of community acquired pneumonia Acute hypoxic respiratory failure secondary to CAP and human metapneumovirus HLD Hypothyroidism DM II GERD Hx of TBI with short term memory loss Echo 04/13/2024: LVEF 55-60% with normal wall motion. RV moderately dilated. Mild pulmonary hypertension Lexiscan stress MPI 04/16/2024: Normal perfusion. EF 68% EKG today sinus tachycardia with no ischemic changes Recommendations: - No history of angina. EKG shows no ischemia. Stress MPI 04/2024 negative for ischemia - Elevated troponin is 2/2 hypoxic respiratory failure. No concern for ACS - Repeat ECHO shows preserved LVEF with normal wall motion - No further ischemic work up recommended - Cardiology will sign off. Please call with questions. Documented By: Praveena Garcia MD 03/14/25 1502 Signed By: <Electronically signed by Praveena Garcia MD> 03/14/25 5664 [facility] Work Phone: 1(789) 395-564605-10-2025 Consult [place] [id number] Cardiology Consult Note Signed Patient: Karuna Reynaga MR#: [id number] : 1945 Acct:[id number] Age/Sex: 80 / F Adm Date: 5 Loc: Room: [address] [place] [address] Type: ADM IN Attending Dr: Renan Murguia MD Copies to: MD Jamal Lanier DO Linda Njoroge, MD~ Cardiology HPI History of Present Illness Consult Date: 03/14/25 Reason for Consult: Elevated troponin HPI: Ms. Reynaga is a 80 year old female with past medical history significant for interstitial lung disease, hyperlipidemia, GERD, traumatic brain injury with short-term memory loss, COPD, DM 2, hypothyroidism who presented with cough fever and weakness and was found to have community-acquired pneumoniaand human metapneumovirus. Labs on presentation were significant for elevated troponin for 37--4 3--397. EKG showed sinus tachycardia with no ischemic changes. Notably she had a similar presentation last year and she underwent Lexiscan stress MPI which was negative for ischemia. Echo at the time showed normal FLHS09-22% with moderately dilated RV and mild pulmonary hypertension. Repeat limited echo today shows normal LV function 60-65% with normal wall motion. Shedenies any chest pain, palpitations, lightheadedness, dizziness, BLE edema, orthopnea or PND. Review of Systems Review of Systems All other systems reviewed & are negative unless noted below or in HPI [facility] Medical History Idiopathic interstitial pulmonary disease Osteopenia Osteoarthritis Eczema [...] Medications and Allergies Allergies codeine Allergy (Verified 03/13/25 17:15) Unknown Reaction strawberry Allergy (Verified 03/13/25 17:15) Nausea midazolam (From Versed) Adverse Reaction (Verified 03/13/25 17:15) Confusion Sulfa (Sulfonamide Antibiotics) Adverse Reaction (Verified 03/13/25 17:15) Rash opiates Adverse Reaction (Uncoded 01/09/23 10:55) Confusion Home Medications cholecalciferol (vitamin D3) 50 mcg (2,000 unit) capsule (Vitamin D3) 50 mcg PO QHS 10/17/21 [History Confirmed 03/14/25] clopidogrel 75 mg tablet 75 mg PO QHS 10/17/21 [History Confirmed 03/14/25] ibandronate 150 mg tablet (Boniva) 150 mg PO Q30D 10/17/21 [History Confirmed 03/14/25] liothyronine 5 mcg tablet 5 mcg PO QAM 12/26/22 [History Confirmed 03/14/25] loperamide 2 mg capsule 2 mg PO QAM PRN loose stool 02/21/24 [History Confirmed 03/14/25] levothyroxine 50 mcg tablet 50 mcg PO QAM 02/22/24 [History Confirmed 03/14/25] oxybutynin chloride 5 mg tablet,extended release 24 hr 5 mg PO QHS 02/22/24 [History Confirmed 03/14/25] furosemide 20 mg tablet (Lasix) 10 mg PO DAILY 04/13/24 [History Confirmed 03/14/25] omeprazole 40 mg capsule,delayed release 40 mg PO QAM 04/13/24 [History Confirmed 03/14/25] azithromycin 250 mg tablet 250 mg PO MOWEFR 03/14/25 [History Confirmed 03/14/25] nitrofurantoin monohydrate/macrocrystals 100 mg capsule 100 mg PO .[id number]-guo 03/14/25 [HistoryConfirmed 03/14/25] simvastatin 20 mg tablet 20 mg PO QHS 03/14/25 [History Confirmed 03/14/25] Exam Physical Exam Vital Signs: Temp Pulse Resp BP Pulse Ox O2 Del Method O2 Flow Rate 98.0 F 20 L 94 H 106/71 95 Room Air 2 03/14/25 11:03/14/25 12:27 03/14/25 12:27 03/14/25 11:03/14/25 11:03/14/25 11:03/14/25 04:00 Narrative: GEN: Awake and alert. No acute distress. Neck: No JVD. Lungs: Coarse rhonchi R.L Heart: Regular rate and rhythm. Normal S1 and S2. No murmurs or rubs appreciated. Abdomen: Soft, nontender, nondistended, bowel sounds present. Extremities: No BLE edema. Neuro: No focal deficits. Results - Cardiology Labs 03/14/25 10:35 03/13/25 22:38 Lab results: Cardiac Enzymes 03/13/25 Range/Units 22:38 B-Natriuretic Peptide 28.0 (5-100) pg/mL CBC 03/13/25 03/14/25 Range/Units 22:38 10:35 RBC 4.52 4.27 (3.60-5.00) x10E6/uL Hgb 13.5 12.7 (11.8-15.4) g/dL Hct 40.5 38.5 (34.0-46.4) % Plt Count 206 169 (150-450) x10E3/uL Neut # (Auto) 3.7 5.0 (1.8-7.7) x10E3/uL Lymph # (Auto) 1.3 1.2 (1.00-4.8) x10E3/uL [place] # (Auto) 0.5 0.6 (0.0-0.8) x10E3/uL Eos # (Auto) 0.1 0.1 (0.0-0.45) x10E3/uL Baso # (Auto) 0.0 0.0 (0.0-0.2) x10E3/uL Comprehensive Metabolic Panel 03/13/25 Range/Units 22:38 Sodium 138 (136-145) mmol/L Potassium 3.7 (3.5-5.1) mmol/L Chloride 102 (98-107) mmol/L Carbon Dioxide 28.5 (21.0-31.0) mmol/L BUN 26 H (7-25) mg/dL Creatinine 0.74 (0.60-1.20) mg/dL Glucose 116 H (70-100) mg/dL Calcium 9.6 (8.6-10.3) mg/dL Intake and Output 03/13/25 03/14/25 03/14/25 23:59 07:59 15:59 Intake Total 400 / 400 Balance 400 / 400 Intake: IV 300 / 300 Azithromycin 500Mg-*Ns* 500 mg 250 / 250 In 250 ml @ 250 mls/hr IV ONCE ONE Rx#:[id number] cefTRIAXone 1GM-*NS* 1 gm In 50 50 / 50 ml @ 100 mls/hr IV ONCE ONE Rx #:[id number] Oral 100 / 100 Other: # Voids 1 Weight 60.05 kg 59.3 kg Date of Last Bowel Movement 03/13/25 03/13/25 Patient Weight 03/14/25 23:59 Weight 59.3 kg A&P - Cardiology (1) Elevated troponin: Code(s): R79.89 - Other specified abnormal findings of blood chemistry (2) Acute hypoxic respiratory failure: Code(s): J96.01 - Acute respiratory failure with hypoxia (3) Community acquired pneumonia: Code(s): J18.9 - Pneumonia, unspecified organism (4) Weakness: Code(s): R53.1 - Weakness (5) Human metapneumovirus pneumonia: Code(s): J12.3 - Human metapneumovirus pneumonia Plan Assessment: Type II MA in the setting of community acquired pneumonia Acute hypoxic respiratory failure secondary to CAP and human metapneumovirus HLD Hypothyroidism DM II GERD Hx of TBI with short term memory loss Echo 04/13/2024: LVEF 55-60% with normal wall motion. RV moderately dilated. Mild pulmonary hypertension Lexiscan stress MPI 04/16/2024: Normal perfusion. EF 68% EKG today sinus tachycardia with no ischemic changes Recommendations: - No history of angina. EKG shows no ischemia. Stress MPI 04/2024 negative for ischemia - Elevated troponin is 2/2 hypoxic respiratory failure. No concern for ACS - Repeat ECHO shows preserved LVEF with normal wall motion - No further ischemic work up recommended - Cardiology will sign off. Please call with questions. Documented By: Praveena Garcia MD 03/14/25 1502 Signed By: 03/14/25 1510 [facility]05-10-2025 Progress note Author Renan Murguia [facility] Note Date/Time March 14, 2025 1:01p m [facility] [address] [place] [address] Hospitalist Progress Note Signed Patient: Karuna Reynaga MR#: [id number] : 1945 Acct:[id number] Age/Sex: 80 / F Adm Date: Loc: Room: [address] [place] [address] Type: ADM IN Attending Dr: Renan Murguia MD Copies to: ~ Date of Service: 03/14/2025 Subjective Subjective Narrative: Attending note: I saw the patient personally on the day of encounter. I reviewed the relevant history, and performed the calderon elements of the physical examination. I reviewedthe relevant laboratory workup, radiological studies and the current treatment plan. I formulated the plan of care and confirmed it with the resident/student/PERSONAL CARE ATTENDANT. Patient seen sitting in chair at bedside with daughter Nadira present, who helpsprovide patient history. Patient states she is grateful for our care, but is otherwise only oriented to person, but not place or time. 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 Patient continues to have a cough. Denies fevers,chills, chest pain, abdominal pain, nausea, vomiting, diarrhea, constipation or any other acute symptoms at this time. Exam Physical Exam Vital Signs: Temp Pulse Resp BP Pulse Ox O2 Del Method O2 Flow Rate 98.0 F 78 20 106/67 98 Room Air 2 03/14/25 08:00 03/14/25 09:16 03/14/25 09:16 03/14/25 08:00 03/14/25 08:00 03/14/25 08:00 03/14/25 04:00 Narrative: CONSTITUTIONAL: No apparent distress. Alert, oriented to person only. HEAD: Nasal cannula in place with 2 L of oxygen. Normocephalic, atraumatic. EYES: EOMI. Pupils equal and reactive. Conjunctiva normal. ENT: External auditory canals wnl. No rhinorrhea. No pharyngeal exudates or erythema. NECK: No meningismus. No adenopathy. LUNGS: Lung sounds diminished throughout anterior and posterior listening galindo. Symmetric chest rise. No wheezes, rales or rhonchi. CARDIOVASCULAR: Regular rate and rhythm. No murmurs. Symmetric palpable radial and dorsalis pedis pulses. ABDOMEN: Soft, non-tender, non-distended. Normal bowel sounds. Extremities: No clubbing, cyanosis, or edema. SKIN: Intact. No rash. No trauma. NEUROLOGIC: Cranial nerves grossly intact. No focal neurologic signs. PSYCHIATRIC: Normal affect. Pleasantly demented. Objective Lab Results 03/14/25 10:35 03/13/25 22:38 Microbiology Results Microbiology 03/13/25 22:53 Nasopharyngeal Respiratory Panel (PCR) - Final Meds Allergies and Active Meds Allergies codeine Allergy (Verified 03/13/25 17:15) Unknown Reaction strawberry Allergy (Verified 03/13/25 17:15) Nausea midazolam (From Versed) Adverse Reaction (Verified 03/13/25 17:15) Confusion Sulfa (Sulfonamide Antibiotics) Adverse Reaction (Verified 03/13/25 17:15) Rash opiates Adverse Reaction (Uncoded 01/09/23 10:55) Confusion Active Meds: Active Medications Generic Name Dose Route Start Last Admin Trade Name Freq PRN Reason Stop Dose Admin Acetaminophen 1,000 mg 03/14/25 02:00 Acetaminophen 500 Mg Tablet PO 03/14/26 01:59 Q6HR PRN Pain Scale 1 - 3 or fever Albuterol 2.5 mg 03/14/25 02:32 Albuterol Neb 2.5 Mg/3 Ml Vial.Neb INHALATION 03/14/26 02:31 Q2H PRN Shortness Of Breath Albuterol/Ipratropium 3 ml 03/14/25 08:00 03/14/25 09:05 Ipratropium/Albuterol 0.5-3 Mg 3 Ml Ampul.Neb INHALATION 03/14/26 07:59 3 ml QID.RESP MIRYAM Administration Atorvastatin Calcium 10 mg 03/14/25 22:00 Atorvastatin 10 Mg Tablet PO 03/14/26 21:59 QHS MIRYAM Azithromycin 500 mg 03/15/25 09:00 Azithromycin 250 Mg Tablet PO DAILY MIRYAM Clopidogrel Bisulfate 75 mg 03/14/25 22:00 Clopidogrel Bisulfate 75 Mg Tablet PO 03/14/26 21:59 QHS MIRYAM Guaifenesin 20 ml 03/14/25 02:00 Guaifenesin Syrup 10 Ml Udc PO 03/14/26 01:59 Q6H PRN Cough Lactated Ringer's 1,000 mls @ 50 mls/hr 03/14/25 02:00 03/14/25 03:50 Lactated Ringers IV 03/14/25 17:32 75 mls/hr .Q20H MIRYAM Administration Ceftriaxone Sodium 1 gm in 50 mls @ 100 mls/hr 03/15/25 00:30 Rocephin IV Q24H MIRYAM Levothyroxine Sodium 50 mcg 03/14/25 06:30 03/14/25 06:33 Levothyroxine 50 Mcg Tablet PO 03/14/26 06:29 50 mcg [id number]@0630 MIRYAM Administration Liothyronine Sodium 5 mcg 03/14/25 09:00 Liothyronine 5 Mcg Tablet PO 03/14/26 08:59 QAM MIRYAM Loperamide HCl 2 mg 03/14/25 02:06 Loperamide 2 Mg Capsule PO 03/14/26 02:05 QAM PRN loose stool Melatonin 5 mg 03/14/25 02:00 Melatonin 5 Mg Tablet PO 03/14/26 01:59 QHS PRN Insomnia Ondansetron HCl 4 mg 03/14/25 02:00 Ondansetron 4 Mg/2 Ml Vial IV-PUSH 03/14/26 01:59 Q6H PRN Nausea And Vomiting Oxybutynin Chloride 5 mg 03/14/25 22:00 Oxybutynin Chloride 5 Mg Tab.Er.24 PO 03/14/26 21:59 QHS MIRYAM Pantoprazole Sodium 40 mg 03/14/25 09:00 03/14/25 09:28 Pantoprazole 40 Mg Tablet.Dr PO 03/14/26 08:59 40 mg BID MIRYAM Administration Rivaroxaban 10 mg 03/15/25 09:00 Rivaroxaban 10 Mg Tablet PO 03/15/26 08:59 DAILY MIRYAM Sodium Chloride 0 ml 03/13/25 17:14 Sodium Chloride 0.9 % 10 Ml Syringe IV-PUSH 03/13/26 17:13 PRN PRN Flush A&P - Hospitalist Assessment/Plan (1) Community acquired pneumonia: Plan 1. Community acquired pneumonia complicating Human metapneumovirus infection, patient with chronic bronchiectasis ? Continue oxygen as needed ? Continue azithromycin oral, ceftriaxone day 2 ? DuoNebs 4 times daily, albuterol as needed, Robitussin as needed ? Acetaminophen, Zofran as needed #2 weakness?likely due to pneumonia ? Consult PT/OT #3 Non-STEMI type II - Consult cardiology ?Echocardiogram - No c/o chest pain, no EKG changes Chronic conditions Hypothyroidism?levothyroxine, liothyronine Chronic bronchiectasis Chronic UTIs?hold Macrobid Overactive bladder?oxybutynin HLD?simvastatin TIA?clopidogrel DVT PPx?Xarelto Diet order?regular CODE STATUS?full code Documented By: Renan Murguia MD 03/14/25 1101 Signed By: <Electronically signed by Renan Murguia MD> 03/14/25 1301 <Electronically signed by DO JAUN Hawkins> 03/14/25 [facility] Work Phone: 1(233) 561-118405-10-2025 [place] [address] Hospitalist Progress Note Signed Patient: Karuna Reynaga MR#: [id number] : 1945 Acct:[id number] Age/Sex: 80 / F Adm Date: 5 Loc: Room: [address] [place] [address] Type: ADM IN Attending Dr: Renan Murguia MD Copies to: ~ Date of Service: 03/14/2025 Subjective Subjective Narrative: Attending note: I saw the patient personally on the day of encounter. I reviewed the relevant history, and performed the calderon elements of the physical examination. I reviewedthe relevant laboratory workup, radiological studies and the current treatment plan. I formulated the plan of care and confirmed it with the re sident/student/PERSONAL CARE ATTENDANT. Patient seen sitting in chair at bedside with daughter Nadira present, who helpsprovide patient history. Patient states she is grateful for our care, but is otherwise only oriented to person, but notplace or time. 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 Patient continues to have a cough. Denies fevers,chills, chest pain, abdominal pain, nausea, vomiting, diarrhea, constipation or any other acute symptoms at this time. Exam Physical Exam Vital Signs: Temp Pulse Resp BP Pulse Ox O2 Del Method O2 Flow Rate 98.0 F 78 20 106/67 98 Room Air 2 03/14/25 08:00 03/14/25 09:16 03/14/25 09:16 03/14/25 08:00 03/14/25 08:00 03/14/25 08:00 03/14/25 04:00 Narrative: CONSTITUTIONAL: No apparent distress. Alert, oriented to person only. HEAD: Nasal cannula in place with 2 L of oxygen. Normocephalic, atraumatic. EYES: EOMI. Pupils equal and reactive. Conjunctiva normal. ENT: External auditory canals wnl. No rhinorrhea. No pharyngeal exudates or erythema. NECK: No meningismus. No adenopathy. LUNGS: Lung sounds diminished throughout anterior and posterior listening galindo. Symmetric chest rise. No wheezes, rales or rhonchi. CARDIOVASCULAR: Regular rate and rhythm. No murmurs. Symmetric palpable radial and dorsalis pedis pulses. ABDOMEN: Soft, non-tender, non-distended. Normal bowel sounds. Extremities: No clubbing, cyanosis, or edema. SKIN: Intact. No rash. No trauma. NEUROLOGIC: Cranial nerves grossly intact. No focal neurologic signs. PSYCHIATRIC: Normal affect. Pleasantly demented. Objective Lab Results 03/14/25 10:35 03/13/25 22:38 Microbiology Results Microbiology 03/13/25 22:53 Nasopharyngeal Respiratory Panel (PCR) - Final Meds Allergies and Active Meds Allergies codeine Allergy (Verified 03/13/25 17:15) Unknown Reaction strawberry Allergy (Verified 03/13/25 17:15) Nausea midazolam (From Versed) Adverse Reaction (Verified 03/13/25 17:15) Confusion Sulfa (Sulfonamide Antibiotics) Adverse Reaction (Verified 03/13/25 17:15) Rash opiates Adverse Reaction (Uncoded 01/09/23 10:55) Confusion Active Meds: Active Medications Generic Name Dose Route Start Last Admin Trade Name Freq PRN Reason Stop Dose Admin Acetaminophen 1,000 mg 03/14/25 02:00 Acetaminophen 500 Mg Tablet PO 03/14/26 01:59 Q6HR PRN Pain Scale 1 - 3 or fever Albuterol 2.5 mg 03/14/25 02:32 Albuterol Neb 2.5 Mg/3 Ml Vial.Neb INHALATION 03/14/26 02:31 Q2H PRN Shortness Of Breath Albuterol/Ipratropium 3 ml 03/14/25 08:00 03/14/25 09:05 Ipratropium/Albuterol 0.5-3 Mg 3 Ml Ampul.Neb INHALATION 03/14/26 07:59 3 ml QID.RESP MIRYAM Administration Atorvastatin Calcium 10 mg 03/14/25 22:00 Atorvastatin 10 Mg Tablet PO 03/14/26 21:59 QHS MIRYAM Azithromycin 500 mg 03/15/25 09:00 Azithromycin 250 Mg Tablet PO DAILY MIRYAM Clopidogrel Bisulfate 75 mg 03/14/25 22:00 Clopidogrel Bisulfate 75 Mg Tablet PO 03/14/26 21:59 QHS MIRYAM Guaifenesin 20 ml 03/14/25 02:00 Guaifenesin Syrup 10 Ml Udc PO 03/14/26 01:59 Q6H PRN Cough Lactated Ringer's 1,000 mls @ 50 mls/hr 03/14/25 02:00 03/14/25 03:50 Lactated Ringers IV 03/14/25 17:32 75 mls/hr .Q20H MIRYAM Administration Ceftriaxone Sodium 1 gm in 50 mls @ 100 mls/hr 03/15/25 00:30 Rocephin IV Q24H MIRYAM Levothyroxine Sodium 50 mcg 03/14/25 06:30 03/14/25 06:33 Levothyroxine 50 Mcg Tablet PO 03/14/26 06:29 50 mcg [id number] MIRYAM Administration Liothyronine Sodium 5 mcg 03/14/25 09:00 Liothyronine 5 Mcg Tablet PO 03/14/26 08:59 QAM MIRYAM Loperamide HCl 2 mg 03/14/25 02:06 Loperamide 2 Mg Capsule PO 03/14/26 02:05 QAM PRN loose stool Melatonin 5 mg 03/14/25 02:00 Melatonin 5 Mg Tablet PO 03/14/26 01:59 QHS PRN Insomnia Ondansetron HCl 4 mg 03/14/25 02:00 Ondansetron 4 Mg/2 Ml Vial IV-PUSH 03/14/26 01:59 Q6H PRN Nausea And Vomiting Oxybutynin Chloride 5 mg 03/14/25 22:00 Oxybutynin Chloride 5 Mg Tab.Er.24 PO 03/14/26 21:59 QHS MIRYAM Pantoprazole Sodium 40 mg 03/14/25 09:00 03/14/25 09:28 Pantoprazole 40 Mg Tablet.Dr PO 03/14/26 08:59 40 mg BID MIRYAM Administration Rivaroxaban 10 mg 03/15/25 09:00 Rivaroxaban 10 Mg Tablet PO 03/15/26 08:59 DAILY MIRYAM Sodium Chloride 0 ml 03/13/25 17:14 Sodium Chloride 0.9 % 10 Ml Syringe IV-PUSH 03/13/26 17:13 PRN PRN Flush A&P - Hospitalist Assessment/Plan (1) Community acquired pneumonia: Plan 1. Community acquired pneumonia complicating Human metapneumovirus infection, patient with chronic bronchiectasis ? Continue oxygen as needed ? Continue azithromycin oral, ceftriaxone day 2 ? DuoNebs 4 times daily, albuterol as needed, Robitussin as needed ? Acetaminophen, Zofran as needed #2 weakness?likely due to pneumonia ? Consult PT/OT #3 Non-STEMI type II - Consult cardiology ?Echocardiogram - No c/o chest pain, no EKG changes Chronic conditions Hypothyroidism?levothyroxine, liothyronine Chronic bronchiectasis Chronic UTIs?hold Macrobid Overactive bladder?oxybutynin HLD?simvastatin TIA?clopidogrel DVT PPx?Xarelto Diet order?regular CODE STATUS?full code Documented By: Renan Murguia MD 03/14/25 1101 Signed By: 03/14/25 1301 03/14/25 1213 [facility]05-10-2025 Radiology Diagnostic study note [facility] Main [place] [address] [place] [address] CT Scan Report Signed Patient: Karuna Reynaga MR#: [id number] : 1945 Acct:[id number] Age/Sex: 80 / F ADM Date: 5 Loc: Room: [address] [place] [address] Type: ADM IN Attending Dr: Renan Murguia MD Copies to: MD Loraine Lanier MD~ Ordering Provider: Loraine Mccallum MD Date of Service: 03/13/25 CT/CT angio chest PE protocol: r/o pe, tachy, elevated trop CT angio chest PE protocol 03/13/2025 11:58 PM SIGN AND SYMPTOMS: ^r/o pe, tachy, elevated trop CONTRAST: 70 mL of intravenous Isovue-370 TECHNIQUE: Multidetector CT axial slices of the chest were obtained with IV contrast. Multiplanar reformats were performed and viewed on a separate workstation and reviewed to further define anatomy and possible pathology. CT was performed with one or more of the following dose reduction techniques: Automated exposure control, adjustment of the mA and/or kV according to patient size, or use of iterative reconstruction technique. COMPARISON: None. FINDINGS: Lower neck: The thyroid tissue is atrophic or previously removed. Vessels: Atherosclerotic changes are noted in the thoracic aorta and coronary arteries. There is noevidence of pulmonary embolism. Mediastinum and Barbara: There is mild soft tissue prominence in the right hilum which may represent reactive lymphadenopathy. Malignancy is not excluded however. This is worse when compared to the prior exam with the largest lymph node measuring 1 cm in short axis. Heart: Normal size. No pericardial effusion. Airways: Within normal limits Lungs: Worsening airspace opacity is noted in the right perihilar region Pleura: Within normal limits. Chest Wall: Within normal limits. Upper Abdomen: There is a stone within the gallbladder lumen. Bones: Degenerative changes are noted in the thoracic spine and cervical spine. Postsurgical changes are noted along the left humerus. CT/CT angio chest PE protocol IMPRESSION: There is no pulmonary embolism. Right perihilar airspace opacity is noted predominantly affecting the right upper lobe. This may beinfectious in nature. Mildly prominent right hilar lymph nodes are noted, slightly larger compared to the prior exam. These may be reactive in nature. Impression dictated by: Jose Muñoz M.D. 03/14/2025 8:40 AM Dictation Location: DigitalChalk--Chalkboard Transcribed By: BERTA 03/14/25 0840 Dictated By: Jose Muñoz II, MD 03/14/25 0830 Signed By: 03/14/25 0840 [facility] Work Phone: [phone]) 130-152705-10-2025 History and physical note Author Magda Navarro [facility] Note Date/Time March 14, 2025 4:16a m [facility] [address] [place] [address] Hospitalist H&P Signed Patient: Karuna Reynaga MR#: [id number] : 1945 Acct:[id number] Age/Sex: 80 / F Adm Date: 5 Loc: Room: [address] [place] [address] Type: ADM IN Attending Dr: Matias Valdez DO Copies to: DO Magad Ayers APRN Shawn J Warner, ~ HPI DATE OF EXAMINATION: 03/14/25 CHIEF COMPLAINT: cough, fever, weakness HISTORY OF PRESENT ILLNESS: Ms. Reynaga is a 80-year-old female with a PMH of TBI, TIA, dysphagia, GERD, hypothyroidism, chronic bronchiectasis on 3 times a week azithromycin, chronic UTIs on 3 times a week Macrobid prophylactically, diabetes?diet controlled the presented to the emergency room tonight for complaints of cough, fever, weakness. Patient is resting on cart with eyes closed, easily awakens, alert toself. Daughter, Nadira, at bedside to help provide history. Patient denies pain, shortness of breath. Currently on room air, SpO2 92%, heart rate slightlytachycardic at 102. Daughter reports that patient had a couple of episodes of vomiting and diarrhea earlier in the week, states she woke up projectile vomiting, she believes it was from the lactate that she took because they tried a different brand. Over the last couple of days she has noticed the patient hashad an increasingly moist cough, today she had a fever of 101.4 degrees. She also states that she was very weak and unsteady on her feet. EKG sinus rhythm, repeat EKG sinus tachycardia. CT of the head showed no acute intracranial pathology, chronic changes are redemonstrated?gliosis and encephalomalacia noted in bilateral frontal lobes chest x-ray shows no acute cardiopulmonary pathology. CTA of the chest was negative for PE, groundglass opacities- likely infectious process. CBC is unremarkable. D-dimer less than 200. BMP is unremarkable. Troponin 437, repeat 403. UA with clear, yellow urine with 30 of protein, trace of occult blood, negative for infection. Respiratory panel was positive for human metapneumovirus. She was given a gram of Tylenol, 1 g of ceftriaxone, azithromycin, 325 of aspirin. She will be admitted as inpatient to the [facility] telemetry floor. Review of Systems Review of Systems Unobtainable due to mental condition [facility] Medical History Idiopathic interstitial pulmonary disease Osteopenia Osteoarthritis Eczema [...] Medications and Allergies Allergies codeine Allergy (Verified 03/13/25 17:15) Unknown Reaction strawberry Allergy (Verified 03/13/25 17:15) Nausea midazolam (From Versed) Adverse Reaction (Verified 03/13/25 17:15) Confusion Sulfa (Sulfonamide Antibiotics) Adverse Reaction (Verified 03/13/25 17:15) Rash opiates Adverse Reaction (Uncoded 01/09/23 10:55) Confusion Home Medications cholecalciferol (vitamin D3) 50 mcg (2,000 unit) capsule (Vitamin D3) 50 mcg PO QHS 10/17/21 [History Confirmed 03/14/25] clopidogrel 75 mg tablet 75 mg PO QHS 10/17/21 [History Confirmed 03/14/25] ibandronate 150 mg tablet (Boniva) 150 mg PO Q30D 10/17/21 [History Confirmed 03/14/25] liothyronine 5 mcg tablet 5 mcg PO QAM 12/26/22 [History Confirmed 03/14/25] loperamide 2 mg capsule 2 mg PO QAM PRN loose stool 02/21/24 [History Confirmed 03/14/25] levothyroxine 50 mcg tablet 50 mcg PO QAM 02/22/24 [History Confirmed 03/14/25] oxybutynin chloride 5 mg tablet,extended release 24 hr 5 mg PO QHS 02/22/24 [History Confirmed 03/14/25] furosemide 20 mg tablet (Lasix) 10 mg PO DAILY 04/13/24 [History Confirmed 03/14/25] omeprazole 40 mg capsule,delayed release 40 mg PO QAM 04/13/24 [History Confirmed 03/14/25] azithromycin 250 mg tablet 250 mg PO MOWEFR 03/14/25 [History Confirmed 03/14/25] nitrofurantoin monohydrate/macrocrystals 100 mg capsule 100 mg PO .[id number] 03/14/25 [History Confirmed 03/14/25] simvastatin 20 mg tablet 20 mg PO QHS 03/14/25 [History Confirmed 03/14/25] Exam Physical Exam Vital Signs: Temp Pulse Resp BP Pulse Ox O2 Del Method O2 Flow Rate 100.8 F H 94 22 101/51 L 97 Nasal Cannula 2 03/13/25 22:45 03/14/25 02:00 03/14/25 02:00 03/14/25 02:00 03/14/25 02:00 03/14/25 02:00 03/14/25 02:00 Narrative: CONST- Appears well -developed and well nourished. HEAD - Normocephalic and atraumatic EENT-Sclera nonicteric, conjunctive are non-erythemic, moist oral mucosa, pharynx clear NECK-Supple, no cervical lymphadenopathy CARDIAC-tachycardic, regular rhythm, S1 & S2. PULM-diminished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 (ZITHROMAX) 250 mg tablet Take 1 tablet by mouth every Sunday, Sunday, and Sunday. lamoTRIgine (LAMICTAL) 25 mg tablet take 1 qhs for 2 weeks, then 1 pill bid for two weeks, then 1 pill in AM, 2pill in PM for week, then 2 pills bid for 1 week, then 2 pill in AM, 3 pill in PM for week, then 3 pills bid and stay at that dose. ipratropium-albuterol (DUONEB) 0.5 mg-3 mg(2.5 mg base)/3 mL nebu Inhale 3 mL as instructed every 4hours as needed for wheezing/shortness of breath. sodium [...] Date Stroke (HCC) Traumatic brain injury (HCC) No past surgical history on file. FAMILY HISTORY Problem Relation Age of Onset Thyroid Daughter hypothyroidism Coronary Artery Disease Brother Stroke Sister Stroke Mother Cancer Sister cervical SOCIAL HISTORY: -Lives in [place], [place] Social History Tobacco Use Smoking status: Former Current packs/day: 0.00 Average packs/day: 1 pack/day for 10.0 years (10.0 ttl pk-yrs) Types: Cigarettes Start date: 11/05/1969 Quit date: 11/05/1979 Years since quittin.1 Smokeless tobacco: Never Vaping Use Vaping status: Never Used Substance Use Topics Alcohol use: No Drug use: No Review of Systems All other systems reviewed and are negative. VITAL SIGNS: There were no vitals taken for this visit. General Examination: General Exam Neurological Exam Mental Status Alert, fully oriented, attentive, with normal cognition, memory, speech and affect. Cranial Nerves Extraocular movements normal. No nystagmus, no ptosis, and pupils equal. Face symmetrical. Tongue normal. 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 She has had difficulty tolerating ASM, wanted to explore epidiolex but is not indicated and wouldnot be able to afford. We discussed options of treatment and I would favor trial of lamotrigine Lon discussed and will provide letter to explore medical CBD in accordance with [place] Law. They again had difficulty tolerating lamotrigine, would like to try epidiolex. I discussed difficulty with approval, cost and r/b/a and they want to try. There are other options. The patient's compliance with therapy has been: Excellent PLAN: Data reviewed as above including: electronic medical record Testing Ordered none Education Patient was advised to not drive until released by a physician. Patient was given my clinic contact information. Medical Management Medication changes were discussed. epidiolex as ordered, await prior auth The possibility of serious and adverse reactions were discussed in detail as well as proper use of medication. I discussed that not taking this medication as directed could worsen seizures and can bedangerous. I discussed the risks, benefits and alternatives of the medical plan with the patient. Questions were answered. The patient agreed with the plan as discussed. FOLLOW-UP: Return in about 6 months (around 06/23/2025). I spent a total of 30 minutes on the date of the service which included: preparing to see the patient [id number] patient care completing clinical documentation obtaining and/or reviewing separately obtained history counseling and educating the patient/family/caregiver performing a medically appropriate examination ordering medications, tests, or procedures independently interpreting results (not separately reported) Lisa William MD, PhD cc: Primary Care Physician: Jamal Alvarez, [address] [facility] [address] [facility] [id number] Referring: SELF Phone: N/A Fax: Patient: Ms. Karuna Reynaga [id number] [facility] [address] [facility] [id number] documented in this encounterOhio [facility]02-07-2025 Telephone encounter Note * Telephone Encounter - John Madison - 12/12/2024 7:41 AM EST Prescription Refill Information The last office visit in the department: VV on 05/05/2024 Does the patient have a future office visit with this provider/department: No Requested Prescriptions Pending Prescriptions Disp Refills azithromycin (ZITHROMAX) 250 mg tablet [Pharmacy Med Name: Azithromycin Oral Tablet 250 MG] 30 tablet 0 Sig: Take 1 tablet by mouth every Sunday, Sunday, and Sunday. John Madison December 12, 2024 7:41 AM [facility]02-07-2025 Miscellaneous Notes* Telephone Encounter - John Madison - 12/12/2024 7:41 AM EST Prescription Refill Information The last office visit in the department: VV on 05/05/2024 Does the patient have a future office visit with this provider/department: No Requested Prescriptions Pending Prescriptions Disp Refills azithromycin (ZITHROMAX) 250 mg tablet [Pharmacy Med Name: Azithromycin Oral Tablet 250 MG] 30 tablet 0 Sig: Take 1 tablet by mouth every Sunday, Sunday, and Sunday. John Madison December 12, 2024 7:41 AM documented in this encounterOhio [facility] Hospital11-04-2024 Telephone encounter Note * Telephone Encounter - John Madison - 09/08/2024 1:14 PM EST Karuna Reynaga's daughter Nadira called regarding her VV that was scheduled for today. They ran behind at one of her other appointments, and missed the visit. Her daughter is requesting her to be rescheduled, but don't want to wait a long time for a new appointment. [facility]11-04-2024 Miscellaneous Notes* Telephone Encounter - John Madison - 09/08/2024 1:14 PM EST Karuna Reynaga's daughter Nadira called regarding her VV that was scheduled for today. They ran behind at one of her other appointments, and missed the visit. Her daughter is requesting her to be rescheduled, but don't want to wait a long time for a new appointment. documented in this encounterOhio [facility] Hospital10-21-2024 History of Present illness Narrative* Jose Luis Lockhart PERSONAL CARE ATTENDANT - 08/25/2024 3:15 PM EDT Images from the original note were not included. Karuna Reynaga is a 79 y.o. female presents with chief complaint of 6 mos ov rev lab (Pt here for 6 month visit and review of labs.) HPI: HPI I have reviewed and reconciled the history and medication list with the patient today. Here for routine office visit and review of chronic problems. HISTORIES: PAST MEDICAL HISTORY: Past Medical History: Diagnosis Date Allergic rhinitis due to pollen Asthma (CMS/HCC) [...] Type 2 diabetes mellitus without complication (CMS/HCC) SURGICAL HISTORY: Past Surgical History: Procedure Laterality Date ADENOIDECTOMY COLOGUARD 01/10/2019 negative COLONOSCOPY 01/30/2007 EGD 01/30/2007 HUMERUS FRACTURE SURGERY Left HYSTEROSCOPY W/ POLYPECTOMY 01/09/2023 D & C polypectomy, Interstim explant INTERSTIM PNE 2014 INTERSTIM PNE 10/25/2021 Complete interstim implantation TONSILLECTOMY SOCIAL HISTORY: Social History Tobacco Use Smoking status: Former Current packs/day: 0.00 Types: Cigarettes Quit date: 11/05/1979 Years since quittin.8 Passive exposure: Past Smokeless tobacco: Never Substance Use Topics Alcohol use: Never Comment: caffeine: 1-2 cups per day tea Drug use: Never Depression: Not at risk (02/22/2024) PHQ-2 PHQ-2 Score: 0 FAMILY HISTORY: Family History Problem Relation Name Age of Onset Schizophrenia Mother Heart disease Father Stroke Sister Other (heart concerns) Brother MEDICATIONS: Current Outpatient Medications Medication Instructions albuterol HFA (Ventolin HFA) 90 mcg/act inhaler 2 puffs Inhalation every 4 hrs as needed for 30 days azithromycin (ZITHROMAX) 250 mg, Daily clopidogrel (PLAVIX) 75 mg, Oral, Daily furosemide (LASIX) 10 mg, Daily glucose blood (True Metrix Blood Glucose Test) test strip USE TO TEST BLOOD GLUCOSE ONCE DAILY DIRECTED ibandronate (BONIVA) 150 mg, Oral, Every 30 days, Take in morning with full glass of water on an empty stomach. No food, drink, meds, or lying down for 60 minutes after. lamoTRIgine (LAMICTAL) 25 mg, Daily levothyroxine (SYNTHROID, LEVOXYL) 50 mcg, Daily before breakfast liothyronine (CYTOMEL) 5 mcg, 2 times daily LOPERAMIDE HCL PO Daily PRN nitrofurantoin (macrocrystal-monohydrate) (MACROBID) 100 mg, Oral, 2 times daily omeprazole (PRILOSEC) 40 mg, Oral, Daily before breakfast, Do not crush or chew. oxybutynin XL (DITROPAN-XL) 5 mg, Oral, Nightly pregabalin (LYRICA) 75 mg, Oral, 2 times daily semaglutide (OZEMPIC) 1 mg, Subcutaneous, Weekly simvastatin (ZOCOR) 20 mg, Oral, Nightly sodium chloride 3 % nebulizer solution TRUEplus Lancets 33G [facility] USE TO TEST ONCE DAILY EVERY MORNING. ALLERGIES: Allergies Allergen Reactions Codeine Other Reaction(s): unknown Midazolam Hallucinations Other Reaction(s): Confusion, Mental Status Change Propoxyphene Other Reaction(s): unknown Latex Rash Other Rash Penicillins Rash Other Reaction(s): unknown Sulfa Antibiotics Rash Other Reaction(s): unknown REVIEW OF SYMPTOMS: Review of Systems Constitutional: Negative for chills, diaphoresis, fatigue and fever. HENT: Negative for ear pain, hearing loss, sinus pressure, sore throat and trouble swallowing. Eyes: Negative for pain and discharge. Respiratory: Negative for cough and shortness of breath. Cardiovascular: Negative for chest pain, palpitations and leg swelling. Gastrointestinal: Negative for abdominal pain, blood in stool, constipation and diarrhea. Genitourinary: Negative for difficulty urinating. Incontinent if at home by herself. Musculoskeletal: Negative for arthralgias and gait problem. Skin: Negative for rash. Neurological: Negative for dizziness, light-headedness and headaches. Psychiatric/Behavioral: Negative for sleep disturbance. PHYSICAL EXAM: Visit Vitals BP 130/70 Pulse 68 Ht 4' 9 Wt 135 lb SpO2 99% BMI 29.21 kg/m Smoking Status Former BSA 1.57 m BP Readings from Last 3 Encounters: 08/25/24 130/70 04/24/24 122/74 04/22/24 108/72 Wt Readings from Last 3 Encounters: 08/25/24 135 lb 04/22/24 143 lb 03/10/24 144 lb Physical Exam Constitutional: General: She is not in acute distress. Appearance: Normal appearance. HENT: Head: Normocephalic. Mouth/Throat: Mouth: Mucous membranes are moist. Eyes: Extraocular Movements: Extraocular movements intact. Neck: Vascular: No carotid bruit. Cardiovascular: Rate and Rhythm: Normal rate and regular rhythm. Heart sounds: Normal heart sounds. No murmur heard. Pulmonary: Effort: Pulmonary effort is normal. No respiratory distress. Breath sounds: Normal breath sounds. No wheezing, rhonchi or rales. Abdominal: General: Bowel sounds are normal. Palpations: Abdomen is soft. Tenderness: There is no abdominal tenderness. Musculoskeletal: General: Normal range of motion. Cervical back: Normal range of motion. Skin: General: Skin is warm and dry. Neurological: Mental Status: She is alert and oriented to person, place, and time. Psychiatric: Mood and Affect: Mood normal. Thought Content: Thought content normal. Judgment: Judgment normal. 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 (CMS/HCC) Need for immunization against influenza - Flu vaccine, trivalent, adjuvanted, preservative free 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) - Comprehensive metabolic panel; Future - Hemoglobin a1c with eag; Future Gastroesophageal reflux disease without esophagitis Hypothyroidism, unspecified type (CMS/HCC) - TSH; Future Moderate asthma without complication, unspecified whether persistent (CMS/HCC) Osteoporosis, unspecified osteoporosis type, unspecified pathological fracture presence (CMS/HCC) Urinary incontinence, unspecified type Seizure (CMS/HCC) Traumatic brain injury with loss of consciousness, subsequent encounter Medication management - CBC; Future Dictated, but not read Patient presents today for routine six month office visit and review chronic problems. Overall she s doing well according to her daughter. She is following with Dr. Lisa Calixto, who is a neurologist at the [facility] [place] for her partial seizures. She was on Lyrica and he added Lamictal 25 mg once a day. She was on 50 but her daughter cut it in half because she was starting to wear underwear on her head. She held the Lyrica. They re going to see if the Lamictal will be enough to prevent seizure activity. She also follows with Dr. Chávez for her lung issues and he has her on PRN Zithromax. Since that time she has not had any exacerbations of lung issues. She was diagnosed with bronchiectasis. She also has frequent urinary tract infections. The daughter has spoke with Dr. Alvarez in the past about putting her on prophylactic Macrobid every other day. We will place her on this every third day. She should take a probiotic. I also suggested she take d-mannose, which is over the counter. Lab results are reviewed with the patient. CBC was within normal limits. We are in for micro albumin is negative. Hemoglobin A1c is normal at 5.6. Electrolytes are within normal limits. GFR is greater than 60. Liver functions are within normal limits. LDL cholesterol is at goal on 20 mg of simvastatin. No other changes in any of her medications. Should we turn here in six months or sooner if needed. At that time she ll need a Medicare wellness examination Dr. Alvarez was present in office suite today and is supervising patient care and available for consult. I'm following his plan of care for the above problems. Previous notes and plan were reviewed and followed. Jose Luis Lockhart, MSN, PLEATING MACHINE OPERATOR-ASPHALT SURFACE HEATER OPERATOR documented in this encounterFulton State [id number] Telephone encounter Note* Telephone Encounter - Sowmya Gresham RN - 08/25/2024 11:39 AM EDT 08/13/[address] William started on the LTG titration Sowmya Gresham RN [facility]10-21-2024 Miscellaneous Notes* Telephone Encounter - Sowmya Gresham RN - 08/25/2024 11:39 AM EDT 08/13/[address] William started on the LTG titration Sowmya Gresham RN documented in this encounterOhio [facility] Hospital10-[facility]-2024 Instructions* Patient Instructions* Lisa William MD, PhD - 08/13/2024 4:55 [...] need an alternate medicine. documented in this encounterOhio Valley Hospital10-09-2024 NoteHNO ID: [id number] Author: LISA WILLIAM MD, PhD Service: ? Author Type: Physician Type: Progress Notes Filed: 12/24/2024 15:02 Note Text: [facility] [place] [facility] Patient Name: Karuna GAMINO Date of : 1945 INITIAL EPILEPSY CLINIC NOTE 08/13/2024 2:00 PM CHIEF COMPLAINT: New Patient and Epilepsy Self referred. HISTORY OF PRESENT ILLNESS Ms. Reynaga is a 79 year old female seen in [facility] for initial consultation. We had a visit using: Tripeese I received consent from the patient to perform the visit using this platform. I have communicated my name and active licensure. The patient's identity and physical location were verified at the time of this visit. 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 CT Brain WO 04/15/2024 ([facility]) IMPRESSION: ATROPHY AND CHRONIC ISCHEMIC CHANGES. NO ACUTE INTRACRANIAL FINDINGS ? EEG Routine 04/15/2024 ([facility]) Routine EEG showed bifrontal slowing but no epileptiform discharges or seizures ? MRI Brain 04/15/2024 ([facility]) MRI brain April 15, 2024 without contrast shows bilateral frontal lobe encephalomalacia, some other generalized atrophy, no acute intracranial findings Other caregivers: Primary Care Provider: Jamal A Antonio, DO Current Outpatient Medications Medication Sig azithromycin (ZITHROMAX) 250 mg tablet Take 1 tablet by mouth every Sunday, Sunday, and Sunday. lamoTRIgine (LAMICTAL) 25 mg tablet take 1 qhs for 2 weeks, then 1 pill bid for two weeks, then 1 pill in AM, 2pill in PM for week, then 2 pills bid for 1 week, then 2 pill in AM, 3 pill in PM for week, then 3 pills bid and stay at that dose. ipratropium-albuterol (DUONEB) 0.5 mg-3 mg(2.5 mg base)/3 [...] History reviewed. No pertinent surgical history. FAMILY HIS (more content not included)...[facility]10-09-2024 History of Present illness Narrative* Lisa William MD, PhD - 08/13/2024 2:07 PM EDT [facility] [place] [facility] Patient Name: Karuna GAMINO Date of : 1945 INITIAL EPILEPSY CLINIC NOTE 08/13/2024 2:00 PM CHIEF COMPLAINT: New Patient and Epilepsy Self referred. HISTORY OF PRESENT ILLNESS Ms. Reynaga is a 79 year old female seen in [facility] for initial consultation. We had a visit using: Tripeese I received consent from the patient to perform the visit using this platform. I have communicated my name and active licensure. The patient's identity and physical location wereverified at the time of this visit. 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 NO ACUTE INTRACRANIAL FINDINGS EEG Routine 04/15/2024 ([facility]) Routine EEG showed bifrontal slowing but no epileptiform discharges or seizures MRI Brain 04/15/2024 ([facility]) MRI brain April 15, 2024 without contrast shows bilateral frontal lobe encephalomalacia, some othergeneralized atrophy, no acute intracranial findings Other caregivers: Primary Care Provider: Jamal Alvarez, DO Current Outpatient Medications Medication Sig azithromycin (ZITHROMAX) 250 mg tablet Take 1 tablet by mouth every Sunday, Sunday, and Sunday. ipratropium-albuterol (DUONEB) 0.5 mg-3 mg(2.5 mg base)/3 mL nebu Inhale 3 mL as instructed every 4hours as needed for wheezing/shortness of breath. sodium [...] Cancer Sister cervical SOCIAL HISTORY: -Lives in [place], [place] -Patient lives alone? Social History Tobacco [...] PhD cc: Primary Care Physician: Jamal Alvarez, DO [address] [facility] [address] [facility] [address] Referring: Patient: Ms. Karuna Reynaga [address] [facility] [address] [facility] [address] documented in this encounterOhio Valley Hospital09-26-2024 Telephone encounter Note * Telephone Encounter - Sowmya Gresham RN - 07/31/2024 3:06 PM EDT EEG order faxed to [facility] via [employer] request to fax report to [phone] send EEG tracings to [facility] Sowmya Gresham RN [facility]09-26-2024 Miscellaneous Notes* Telephone Encounter - Sowmya Gresham RN - 07/31/2024 3:06 PM EDT EEG order faxed to [facility] via [employer] request to fax report to [phone] send EEG tracings to [facility] Sowmya Gresham RN * Telephone Encounter - Melvi García PA-C - 07/31/2024 2:03 PM EDT So the long EEG is 2.5 hours long roughly and it is performed the same way as an hour long EEG so Iwrote the time length requested in the comments. What else are they looking for? Melvi García PA-C * Telephone Encounter - Sowmya Gresham RN - 07/31/2024 10:33 AM EDT Spoke with Karuna States that [facility] needs the order to specify what is wanted they only do the hour and 3 days, if different it needs to be requested in the order routed for review Sowmya Gresham RN * Telephone Encounter - Melvi García PA-C - 07/30/2024 2:59 PM EDT EEG long can be done first. Order placed. Melvi García PA-C * Telephone Encounter - Sowmya Gresham RN - 07/30/2024 2:52 PM EDT 04/22/[address] Juarez ======= routed to REJI 1 to see if long EEG order can be placed or will visit with Dr. William need to be completed first. Sowmya Gresham RN * Telephone Encounter - Yaa Russell - 07/30/2024 2:03 PM EDT Patient called back today, and indicated that she's going to have this done at [facility] and they need the order to specifically state how long you want them to do the test for, so please include a time frame on the order. Then fax over to [facility] at: [phone] * Telephone Encounter - Yanick Douglass - 07/30/2024 1:40 PM EDT Nadira is calling Lias William MD, PhD today to request the order for the EEG to be mailed to the home address. They need to get this done at a location closer to home. Patient has been identified by name and birthdate. Duration of symptoms: N/A Person calling: daughter: Nadira Call patient at: on cell [phone] (home) [phone] (cell) Was an appointment scheduled: No Closing statement: Results or non-symptom based questions: Thank you for calling [facility], your call will be returned within the next business day. Yanick Douglass documented in this encounterOhio Valley Hospital09-26-2024 Telephone encounter Note * Telephone Encounter - Melvi García PA-C - 07/31/2024 2:03 PM EDT So the long EEG is 2.5 hours long roughly and it is performed the same way as an hour long EEG so Iwrote the time length requested in the comments. What else are they looking for? Melvi García PA-C [facility]09-26-2024 Telephone encounter Note* Telephone Encounter - Sowmya Gresham RN - 07/31/2024 10:33 AM EDT Spoke with Karuna States that [facility] needs the order to specify what is wanted they only do the hour and 3 days, if different it needs to be requested in the order routed for review Sowmya Gresham RN [facility]09-25-2024 Telephone encounter Note* Telephone Encounter - Melvi García PA-C - 07/30/2024 2:59 PM EDT EEG long can be done first. Order placed. Melvi García PA-C [facility]09-25-2024 Telephone encounter Note* Telephone Encounter - Sowmya Gresham RN - 07/30/2024 2:52 PM EDT 04/22/[address] Juarez ======= routed to REJI 1 to see if long EEG order can be placed or will visit with Dr. William need to be completed first. Sowmya Gresham RN [facility]09-25-2024 Telephone encounter Note* Telephone Encounter - Yaa Russell - 07/30/2024 2:03 PM EDT Patient called back today, and indicated that she's going to have this done at [facility] and they need the order to specifically state how long you want them to do the test for, so please include a time frame on the order. Then fax over to [facility] at: [phone] [facility]09-25-2024 Telephone encounter Note* Telephone Encounter - Yanick Douglass - 07/30/2024 1:40 PM EDT Nadira is calling Lisa William MD, PhD today to request the order for the EEG to be mailed to the home address. They need to get this done at a location closer to home. Patient has been identified by name and birthdate. Duration of symptoms: N/A Person calling: daughter: Nadira Call patient at: on cell [phone] (home) [phone] (cell) Was an appointment scheduled: No Closing statement: Results or non-symptom based questions: Thank you for calling [facility], your call will be returned within the next business day. Yanick Douglass [facility]08-01-2024 Telephone encounter Note* Telephone Encounter - John Madison - 06/05/2024 4:51 PM EDT Fax received on 06/05/2024 from [employer], regarding CMN. Fax placed on provider desk for review/signature. Unsigned copy scanned into patient chart. [facility]08-01-2024 Miscellaneous Notes* Telephone Encounter - John Madison - 06/05/2024 4:51 PM EDT Fax received on 06/05/2024 from [employer], regarding CMN. Fax placed on provider desk for review/signature. Unsigned copy scanned into patient chart. documented in this encounterOhio Valley Hospital07-01-2024 History of Present illness Narrative* Ubaldo Dubose MD - 05/05/2024 3:30 PM EDT Images from the original note were not included. VIRTUAL VISIT PROGRESS NOTE This is a virtual visit using Score[employer]om Video Visit. It required patient- provider interaction for the medical decision making as documented below. I have communicated my name and active licensure. The patient's identity and physical location wereverified at the time of this visit. Either the patient or their legal life assurance representative has been informed of the risks and benefits of -- and alternatives to -- treatment through a remote evaluation andconsents to proceed with the evaluation remotely. [facility] [place] Karuna Reynaga is a 79 year old female here for a follow up with the [facility] InterstitialL[facility] Disease Team for bronchiectasis secondary to chronic microaspiration. CHIEF COMPLAINT: Patient presents with: Cough HISTORY OF PRESENT ILLNESS: Initially seen by me in Dec 2023. Initially saw Dr. Sherman in 2019 for evaluation of ILD. She [...] and bronchiectasis. Provided acapella and recommended vesttherapy. At the last virtual visit in February [...] been using the 3% saline but that didnot seem like it was working. She started [...] today, May 05, 2024) documented in this encounterOhio Valley Hospital07-01-2024 NoteHNO ID: [id number] Author: UBALDO DUBOSE MD Service: ? Author Type: Physician Type: Progress Notes Filed: 05/05/2024 16:40 Note Text: VIRTUAL VISIT PROGRESS NOTE This is a virtual visit using Scoreloopom Video Visit. It required patient-provider interaction for the medical decision making as documented below. I have communicated my name and active licensure. The patient's identity and physical location were verified at the time of this visit. Either the patient or their legal life assurance representative has been informed of the risks and benefits of -- and alternatives to -- treatment through a remote evaluation and consents to proceed with the evaluation remotely. [facility] [place] Karuna Reynaga is a 79 year old female here for a follow up with the [facility] Interstitial Lung Disease Team for bronchiectasis secondary to chronic microaspiration. CHIEF COMPLAINT: Patient presents with: Cough HISTORY OF PRESENT ILLNESS: Initially seen by me in Dec 2023. Initially saw Dr. Sherman in 2019 for evaluation of ILD. She [...] by mouth every 12 (more content not included)...[facility]06-26-2024 NoteHNO ID: [id number] Author: YAMINI LAN, FINISHED GOODS STOCK CLERK Service: ? Author Type: Registered Resp Therapist Type: Progress Notes Filed: 04/30/2024 13:18 Note Text: PULM FUNCTION: Provider: Ubaldo Dubose MD Spirometry: 1 DLCO[facility] History of Present illness Narrative * Yamini Lan RRT - 04/30/2024 1:17 PM EDT PULM FUNCTION: Provider: Ubaldo Dubose MD Spirometry: 1 DLCO: 1 documented in this encounterOhio Valley Hospital06-18-2024 NoteHNO ID: [id number] Author: CHARITO CROW APRN.ASPHALT SURFACE HEATER OPERATOR Service: ? Author Type: Nurse Practitioner Type: Progress Notes Filed: 04/22/2024 10:10 Note Text: [facility] Review of Records Patient: Karuna Reynaga Address: [address] [place] [address] Impression: Review of records for Karuna Reynaga, [...] ASMs PRIOR EVALUATIONS: CT Brain WO 04/15/2024 ([facility]) IMPRESSION: ATROPHY AND CHRONIC ISCHEMIC CHANGES. NO ACUTE INTRACRANIAL FINDINGS EEG Routine 04/15/2024 ([facility]) Routine EEG showed bifrontal slowing but no epileptiform discharges or seizures MRI Brain 04/15/2024 ([facility]) MRI brain April 15, 2024 without contrast shows bilateral frontal lobe encephalomalacia, some other generalized atrophy, no acute intracranial findings REJI Recommendations: - EEG long - Visit with epileptologist - Additional testing to be considered by epilepsy clinicians Signed: Charito Crow APRN.BEATRIZ April 22, [address] Juarez for review and recommendations. MD Recommendations (as discussed with Dr. Juarez): - agree with reccomendationsUniversity [facility] History of Present illness Narrative* Charito Crow APRN.ASPHALT SURFACE HEATER OPERATOR - 04/22/2024 8:15 AM EDT [facility] Review of Records Patient: Karuna Reynaga Address: [address] [place], [place] [id number] Impression: Review of records for Karuna Reynaga, a 79 year old female, being referred by herself to any epileptologist for further evaluation and treatment. Patient has previously diagnosed seizure like events. EEG from 04/15/2024 reported bifrontal slowing and no epileptiform discharges. MRI from 04/15/2024 reported bilateral frontal lobe encephalomalacia. Patient has trialed 1 AEDs. Summar y: Onset: a few years ago Recent Seizure [...] ASMs PRIOR EVALUATIONS: CT Brain WO 04/15/2024 ([facility]) IMPRESSION: ATROPHY AND CHRONIC ISCHEMIC CHANGES. NO ACUTE INTRACRANIAL FINDINGS EEG Routine 04/15/2024 ([facility]) Routine EEG showed bifrontal slowing but no epileptiform discharges or seizures MRI Brain 04/15/2024 ([facility]) MRI brain April 15, 2024 without contrast shows bilateral frontal lobe encephalomalacia, some othergeneralized atrophy, no acute intracranial findings REJI Recommendations: - EEG long - Visit with epileptologist - Additional testing to be considered by epilepsy clinicians Signed: Charito Crow APRN.ASPHALT SURFACE HEATER OPERATOR April 22, [address] Juarez for review and recommendations. Recommendations (as discussed with Dr. Juarez): - agree with reccomendations documented in this encounterOhio Valley Hospital06-17-2024 Telephone encounter Note * Telephone Encounter - Gwen De Souza - 04/21/2024 4:18 PM EDT OSH imaging/records received: April 21, 2024 -OFFICE NOTES -EEG -MRI BRAIN -CT BRAIN -CARE EVERYWHERE ([place], [place]) Gwen De Souza April 21, 2024 4:19 PM [facility]06-17-2024 Miscellaneous Notes* Telephone Encounter - Gwen De Souza - 04/21/2024 4:18 PM EDT OSH imaging/records received: April 21, 2024 -OFFICE NOTES -EEG -MRI BRAIN -CT BRAIN -CARE EVERYWHERE ([place], [place]) Gwen De Souza April 21, 2024 4:19 PM * Telephone Encounter - Gwen De Souza - 04/21/2024 4:04 PM EDT [facility] Initial Intake Interview April 21, 2024 4:05 PM Caller: Nadira Relationship to pt: Daughter Patient name: Karuna Reynaga Age: [age] year old Address: [address] [place] [id number] (home) Insurance: Payor: [facility] MEDICARE / Plan: [employer] [facility] [facility] MEDICARE ADVANTAGE PPO / Product Type: PPO / Referred by: Self (word of mouth) Referring to: Any Reason for Evaluation: further evaluation and treatment Previously evaluated at: [place], [place] Tel: N/A Fax: N/A Age & [...] or No Date Facility EEG Yes 04/2024 [place], [place]) Video EEG No MRI brain Yes 04/2024 [place], [place]) CT brain Yes 04/2024 [place], [place]) fMRI brain No PET No Ictal [...] Signed: Gwen De Souza documented in this encounterOhio Valley Hospital06-17-2024 Telephone encounter Note * Telephone Encounter - Gwen De Souza - 04/21/2024 4:04 PM EDT [facility] Initial Intake Interview April 21, 2024 4:05 PM Caller: Nadira Relationship to pt: Daughter Patient name: Karuna Reynaga Age: [age] year old Address: [address] [place] [address] (home) Insurance: Payor: [facility] MEDICARE / Plan: [facility] [facility] MEDICARE ADVANTAGE PPO / Product Type: PPO / Referred by: Self (word of mouth) Referring to: Any Reason for Evaluation: further evaluation and treatment Previously evaluated at: [place], [place] Tel: N/A Fax: N/A Age & [...] or No Date Facility EEG Yes 04/2024 [place], [place]) Video EEG No MRI brain Yes 04/2024 [place], [place]) CT brain Yes 04/2024 [place], [place]) fMRI brain No PET No Ictal [...] been requested? No Signed: Gwen De Souza [facility]06-12-2024 [facility] Progress note Author Andry Nugent [facility] April 16, 2024 5:40pm Note Date/Time April 16, 2024 1:04 pm [facility] [address] [place] [address] Neurology Progress Note Signed Patient: Karuna Reynaga MR#: [id number] : 1945 Acct:[id number] Age/Sex: 79 / F Adm Date: 4 Loc: 4 Room: [address] [place] [address] Type: ADM IN Attending Dr: Renan Murguia [...] Recommendations: ST Recommendations ST Recommended Services at [facility] Discharge Assessment/Plan (1) Syncope: Qualifiers: Syncope [...] <Electronically signed by Andry Nugent DO> 04/16/24 [address] [facility] Work Phone: 1(292) 536-891906-11-2024 Progress note Author W Deshawn [facility] April 15, 2024 4:44pm Note Date/Time April 15, 2024 4:44 pm [facility] [address] [place] [address] Cardiology Progress Note Signed Patient: Karuna Reynaga MR#: [id number] : 1945 Acct:[id number] Age/Sex: 79 / F Adm Date: 4 Loc: Room: [address] [place] [address] Type: ADM IN Attending Dr: Renan Murguia MD Copies to: ~ Date of Service: 04/15/2024 Subjective Principal diagnosis: Near syncopal episode; troponin elevation Interval history: Ms. Reynaga is a 79 year old female that was seen in cardiology consultation at the request of the hospitalist and in conjunction with second-year bilingual medical assistant Dr. Hernandez for elevated troponin levels. Patient is seen and evaluated with the bilingual medical assistant, I agree with her evaluation and note, [...] on Lasix one month ago by her icer air conditioning, Dr. Lora, for possible heart failure. Her [...] % (Auto) 46.5 Lymph % (Auto) 36.1 [place] % (Auto) 9.8 Eos % (Auto) 6.8 Baso % (Auto) 0.8 Nucleat RBC Rel Count 0.2 Neut # (Auto) 2.6 Lymph # (Auto) 2.0 [place] # (Auto) 0.6 Eos # (Auto) 0.4 [...] <Electronically signed by Vic Hess DO> 04/15/241643 [facility] Work Phone: 1(701) 931-787306-11-2024 Progress note Author Andry Nugent [facility] April 15, 2024 4:01pm Note Date/Time April 15, 2024 4:01 pm [facility] [address] [place] [address] Neurology Progress Note Signed Patient: Karuna Reynaga MR#: [id number] : 1945 Acct:[id number] Age/Sex: 79 / F Adm Date: 4 Loc: Room: [address] [place] [address] Type: ADM IN Attending Dr: Renan Murguia [...] Recommendations: ST Recommendations ST Recommended Services at [facility] Discharge Assessment/Plan (1) Syncope: Qualifiers: Syncope type: unspecified Qualified Code(s): R55 - Syncope and collapse Plan CONSULT REASON: Syncope SUBJECTIVE: Doing about the same as yesterday. No recurrence of any syncopal event. Her daughter says that she is typically pretty tangential at baseline and talks about some fairly [id number] things, and sometimes does not even remember [...] <Electronically signed by Andry Nugent DO> 04/15/24 [address] [facility] Work Phone: 1(369) 162-606406-11-2024 Progress note Author Renan Murguia [facility] April 15, 2024 1:13pm Note Date/Time April 15, 2024 1:14 pm [facility] [address] [place] [address] Hospitalist Progress Note Signed Patient: Karuna Reynaga MR#: [id number] : 1945 Acct:[id number] Age/Sex: 79 / F Adm Date: 4 Loc: Room: [address] [place] [address] Type: ADM IN Attending Dr: Renan Murguia [...] signed by Renan Murguia MD> 04/15/24 [address] [facility] Work Phone: 1(959) 582-174706-10-2024 Consult note Author Andry Nugent [facility] April 14, 2024 5:14pm Note Date/Time April 14, 2024 1:15 pm [facility] [address] [place] [address] Neurology Consult Note Signed Patient: Karuna Reynaga MR#: [id number] : 1945 Acct:[id number] Age/Sex: 79 / F Adm Date: 4 Loc: Room: [address] [place] [address] Type: ADM IN Attending Dr: Renan Murguia MD Copies to: DO Renan Jurado MD Jeffrey A Garman, DO~ HPI Consult Date: 04/14/24 Plant Attendant Or Assistant Operator: Andry Nugent DO [facility] Medical History (Updated 04/14/24 @ 17:14 by [...] Jamal Bird M.D.04/13/2024 4:26 PM Dictation Location: [place] [address] 04/13/24 15:53 IMPRESSION: No acute findings. 4:05 PM 04/13/24 Impression dictated by: Jamal Bird M.D.04/13/2024 4:11 PM Dictation Location: [place] [address] Head CTA 04/13/24 15:53 IMPRESSION: No occlusion, critical stenosis or dissection of the extracranial orintracranial circulation. Impression dictated by: Jamal Bird M.D.04/13/2024 4:31 PM Dictation Location: [place] [address] Therapy Recommendations Therapy Recommendations: ST Recommendations ST Recommended Services at [facility] Discharge Assessment/Plan (1) Syncope: Qualifiers: Syncope [...] follow Documented By: Andry Nugent DO 04/14/24 6763 Signed By: <Electronically signed by Andry Nugent DO> 04/14/24 6561 [facility] Work Phone: 1(809) 871-673006-10-2024 Consult note Author Vic Hess [facility] April 14, 2024 4:31pm Note Date/Time April 14, 2024 3:25 pm [facility] [address] [place] [address] Cardiology Consult Note Signed Patient: Karuna Reynaga MR#: [id number] : 1945 Acct:[id number] Age/Sex: 79 / F Adm Date: 4 Loc: Room: [address] [place] [address] Type: ADM IN Attending Dr: Renan Murguia MD Copies to: Renan MD Jamal Murguia DO Samantha Mason, DO, RES Vic Hess DO~ Cardiology HPI History of Present Illness Consult Date: 04/14/24 Reason for Consult: NSTEMI HPI: Ms. Reynaga is a 79 year old female that was seen in cardiology consultation at the request of the hospitalist and in conjunction with second-year bilingual medical assistant Dr. Hernandez for elevated troponin levels. Patient is seen and evaluated with the bilingual medical assistant, I agree with her evaluation and note, [...] on Lasix one month ago by her icer air conditioning, Dr. Lora, for possible heart failure. Her [...] negative unless noted below or in HPI [facility] Medical History (Updated 04/14/24 @ 15:22 by [...] Lymph # (Auto) 1.8 2.3 (1.00-4.8) x10E3/uL [place] # (Auto) 0.5 0.5 (0.0-0.8) x10E3/uL Eos [...] ml @ 999 mls/hr IV .Q1H1M ONE Rx#:[id number] Oral 240 / 240 Output: Urine 150 [...] signed by DO JAUN Hernandez> 04/14/24 1525 [facility] Work Phone: 1(149) 705-690906-10-2024 Progress note Author Renan Murguia [facility] April 14, 2024 1:29pm Note Date/Time April 14, 2024 1:29 pm [facility] [address] [place] [address] Hospitalist Progress Note Signed Patient: Karuna Reynaga MR#: [id number] : 1945 Acct:[id number] Age/Sex: 79 / F Adm Date: 4 Loc: 4P Room: [address] [place] [address] Type: ADM IN Attending Dr: Renan Murguia [...] above Documented By: Renan Murguia MD 04/14/24 5324 Signed By: <Electronically signed by Renan Murguia MD> 04/14/24 5917 [facility] Work Phone: 1([phone]) 765-602806-10-2024 History and physical note Author Albert Palacio [facility] April 13, 2024 11:03pm Note Date/Time April 13, 2024 7:12p m [facility] [address] [place] [address] Hospitalist H&P Signed Patient: Karuna Reynaga MR#: [id number] : 1945 Acct:[id number] Age/Sex: 79 / F Adm Date: 4 Loc: Room: [address] [place] [address] Type: ADM IN Attending Dr: Albert Palacio [...] episode and possible NSTEMI. Arrival to the MedSurg floor the patient is alert and pleasant [...] although there are fewprior EKGs to compare. [facility] Medical History (Updated 04/13/24 @ 17:47 by [...] % (Auto) 29.5 % (.) 04/13/24 15:55 Renville % (Auto) 7.4 % (.) 04/13/24 15:55 Eos % (Auto) 4.3 % (.) 04/13/24 15:55 Baso % (Auto) 0.8 % (.) 04/13/24 15:55 Nucleat RBC Rel Count 0.1 /100 WBC (0-0.5) 04/13/24 15:55 Neut # (Auto) 3.6 x10E3/uL (1.8-7.7) 04/13/24 15:55 Lymph # (Auto) 1.8 x10E3/uL (1.00-4.8) 04/13/24 15:55 Renville # (Auto) 0.5 x10E3/uL (0.0-0.8) 04/13/24 15:55 [...] stay (# of days): 4 Documented By: Ablert Palacio DO 04/13/24 19 03 Signed By: <Electronically signed by Albert Palacio DO> 04/13/24 2305 [facility] Work Phone: 1([phone]) 875-840305-06-2024 History of Present illness Narrative* Judit Lora [...] injury. Daughter is the medical power of trust and estates attorney. Patient toma full code at this [...] A DAY TRUEplus Lancets [facility] USE TO TEST ONCE DAILY EVERY [...] than 60, hemoglobin 12.5 hematocrit 40 platelets [id number] Assessment/Plan Diagnoses and all orders for this [...] with unknown loss of consciousness status, sequela ([facility] BMI 32.0-32.9,adult Former smoker History of traumatic [...] February 2024-diffuse groundglass interstitial prominence basilar atelectasis/scarring 10-zekp-vfkx history of smoking quit 1979 PFTs not [...] exam, discussion and plan. [facility] Work Phone: 1(999) 455-725805-06-2024 Instructions* Patient Instructions* Raulito Draper MA - [...] time of your visit. [facility] Work Phone: [phone]) 340-584004-29-2024 History of Present illness Narrative* Ubaldo Dubose MD - 03/03/2024 12:30 PM EDT VIRTUAL VISIT PROGRESS NOTE This is a virtual visit using [employer] Video Visit. It required patient- provider interaction for the medical decision making as documented below. I have communicated my name and active licensure. The patient's identity and physical location wereverified at the time of this visit. Either the patient or their legal life assurance representative has been informed of the risks and benefits of -- and alternatives to -- treatment through a remote evaluation andconsents to proceed with the evaluation remotely. Chief complaint: No chief complaint on file. History of Present Illness Initially seen by me in Dec 2023. Initially saw Dr. Sherman in 2019 for evaluation of ILD. She [...] in 3 months Ubaldo Dubose MD Pager: [phone] March 02, 2024 12:06 PM [facility] Telephone encounter Note * Telephone Encounter - Eileen Lucas RN - 02/26/2024 3:57 PM EDT Received outside imaging reports via electronic fax. Uploaded to scanned documents for provider to review. [facility]04-[facility] Miscellaneous Notes* Telephone Encounter - Eileen Lucas RN - 02/26/2024 3:57 PM EDT Received outside imaging reports via electronic fax. Uploaded to scanned documents for provider to review. documented in this [facility]04-23-2024 Telephone encounter Note * Telephone Encounter - Brandon Farris PSS - 02/26/2024 1:53 PM EDT Patient is scheduled on 03/03/2024 at 12:30pm. [facility] Miscellaneous Notes* Telephone Encounter - Brandon Farris PSS - 02/26/2024 1:53 PM EDT Patient is scheduled on 03/03/2024 at 12:30pm. * Telephone Encounter - Brandon Farris PSS - 02/26/2024 12:13 PM EDT Called patient to offer virtual appointment with Dr. Dubose on 03/03/2024 at 12:30pm. No answer, unable to leave voicemail. documented in this [facility]04-[facility] Telephone encounter Note * Telephone Encounter - Brandon Farris PSS - 02/26/2024 12:13 PM EDT Called patient to offer virtual appointment with Dr. Dubose on 03/03/2024 at 12:30pm. No answer, unable to leave voicemail. [facility] History of Present illness Narrative* Yuridia Bourgeois RRT - 02/22/2024 1:47 PM EDT [facility] unable to provide nebulizer. Order and office notes faxed to [employer] [phone], . Yuridia Bourgeois FINISHED GOODS STOCK CLERK documented in this encounterOhio [facility]04-18-2024 Evaluation note* Author Flex Ramos [facility] Authored February 21, 2024 11: [...] then determine the need for PPI [facility] Work Phone: 1([phone]) 484-309804-12-2024 History of Present illness Narrative* Darrel Carranza RRT - 02/15/2024 5:00 PM EDT Faxed nebulizer rx to [facility] in [place] [phone], fax [phone] Darrel Carranza RRT documented in this encounterOhio [facility]03-19-2024 Miscellaneous Notes* Telephone Encounter - John Madison - 01/22/2024 2:46 PM EDT Images from the original note were not included. Imported external notification of equipment delivery from [employer] dated 01/16/2024. Please allow time delay for documents to appear in Epic (Scanned Documents Tab). Images can take up to 24 hours to appear in Epic. documented in this encounterOhio [facility] Hospital02-23-2024 Instructions* Patient Instructions* Ubaldo Dubose [...] (I will send a prescription to a [employer] company) How to Use the Acapella Assure [...] should not be placed in the automatic bath steward/stewardess, boiled or bleached. 4. Rinse in clean water. 5. Shake off excess water. 6. Drain dry the device. Place each piece downward or rest the unit on its side. 7. Replace the mouthpiece when the unit is completely dry and ready for use. documented in this encounterOhio [facility] Hospital02-[facility]24 History of Present illness Narrative* Ubaldo Dubose MD - 12/28/2023 1:30 PM EST Images from the original note were not included. [facility] [place] Karuna Reynaga is a 78 year old female here for evaluation by the [facility] Interstitial Lung Disease Team. Consultation requested by self for an opinion regarding ILD and my final recommendations will be communicated back to the requesting physician by way of shared Medical record or letter via US mail. Referring diagnosis: Undetermined HISTORY OF PRESENT ILLNESS: Initially saw Dr. Sherman in 2019 for evaluation of ILD. 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 SOCIAL HISTORY Social History Tobacco Use Smoking [...] her how to use it but her qbumfogu-cq-tli states that she will likely not be [...] 2023 5:04 PM CC: documented in this encounterOhio [facility] Hospital02-22-2024 Procedure note* Edgar Bryson, RT(R) - 12/27/2023 12:45 PM EST Radiology Service Progress Note PATIENT NAME: Karuan Reynaga DATE OF SERVICE: December 27, 2023 [...] PATIENT PRESENTS WITH AN IMPLANTABLE OR ATTACHED DIGITAL MEDIA ASSOCIATE: No RADIOLOGY DEPARTMENT: CT; Exam(s) Completed: Chest PERIPHERAL IV DATA: Not applicable SIGNED BY: RT Reginald(R) December 27, 2023 1:09 PM [facility]02-22-[facility] Procedure note* Edgar Bryson RT(R) - 12/27/2023 12:45 PM EST Radiology [...] PATIENT PRESENTS WITH AN IMPLANTABLE OR ATTACHED DIGITAL MEDIA ASSOCIATE: No RADIOLOGY DEPARTMENT: CT; Exam(s) Completed: Chest PERIPHERAL IV DATA: Not applicable SIGNED BY: RT Reginald(R) December 27, 2023 1:09 PM documented in this encounterOhio Valley Hospital02-20-2024 History of Present illness Narrative* Yamini Lan RRT - 12/25/2023 3:10 PM EST Pulmonary Function Test documented in this encounterOhio Valley Hospital02-20-2024 History of Present illness Narrative* Yamini Lan RRT - 12/25/2023 2:58 PM EST PULM FUNCTION SMARTBLOCK: Provider: Ubaldo Dubose MD Spirometry: 1 DLCO: 1 documented in this encounterOhio Valley Hospital04-18-2023 Evaluation note* Author Flex Rachel [facility] Authored February 21, 2024 11: [...] dysphagia then determine the need for PPI [facility] Work Phone: [phone]) 857-215812-16-2021 NoteHISTORY: Bone density screening. COMPARISON: None available. [...] and signed by Gildardo Ernst on 10/20/2021 1621[place] Medical SpecialistConsult note Author Praveena Garcia [facility] Note Date/Time March 14, 2025 3:10p m [facility] [address] [place] [address] Cardiology Consult Note Signed Patient: Karuna Reynaga MR#: [id number] : 1945 Acct:[id number] Age/Sex: 80 / F Adm Date: 5 Loc: Room: [address] [place] [address] Type: ADM IN Attending Dr: Renan Murguia MD Copies to: MD Jamal Lanier DO Linda Njoroge, MD~ Cardiology HPI History of Present Illness Consult Date: 03/14/25 Reason for Consult: Elevated troponin HPI: Ms. 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 Labs on presentation were significant for elevated troponin for 37--4 3--397. EKG showed sinus tachycardia with no ischemic changes. Notably she had a similar presentation last year and she underwent Lexiscan stress MPI which was negative for ischemia. Echo at the time showed normal LEVG07-64% with moderately dilated RV and mild pulmonary hypertension. Repeat limited echo today shows normal LV function 60-65% with normal wall motion. Shedenies any chest pain, palpitations, lightheadedness, dizziness, BLE edema, orthopnea or PND. Review of Systems Review of Systems All other systems reviewed & are negative unless noted below or in HPI [facility] Medical History Idiopathic interstitial pulmonary disease Osteopenia Osteoarthritis Eczema [...] Medications and Allergies Allergies codeine Allergy (Verified 03/13/25 17:15) Unknown Reaction strawberry Allergy (Verified 03/13/25 17:15) Nausea midazolam (From Versed) Adverse Reaction (Verified 03/13/25 17:15) Confusion Sulfa (Sulfonamide Antibiotics) Adverse Reaction (Verified 03/13/25 17:15) Rash opiates Adverse Reaction (Uncoded 01/09/23 10:55) Confusion Home Medications cholecalciferol (vitamin D3) 50 mcg (2,000 unit) capsule (Vitamin D3) 50 mcg PO QHS 10/17/21 [History Confirmed 03/14/25] clopidogrel 75 mg tablet 75 mg PO QHS 10/17/21 [History Confirmed 03/14/25] ibandronate 150 mg tablet (Boniva) 150 mg PO Q30D 10/17/21 [History Confirmed 03/14/25] liothyronine 5 mcg tablet 5 mcg PO QAM 12/26/22 [History Confirmed 03/14/25] loperamide 2 mg capsule 2 mg PO QAM PRN loose stool 02/21/24 [History Confirmed 03/14/25] levothyroxine 50 mcg tablet 50 mcg PO QAM 02/22/24 [History Confirmed 03/14/25] oxybutynin chloride 5 mg tablet,extended release 24 hr 5 mg PO QHS 02/22/24 [History Confirmed 03/14/25] furosemide 20 mg tablet (Lasix) 10 mg PO DAILY 04/13/24 [History Confirmed 03/14/25] omeprazole 40 mg capsule,delayed release 40 mg PO QAM 04/13/24 [History Confirmed 03/14/25] azithromycin 250 mg tablet 250 mg PO MOWEFR 03/14/25 [History Confirmed 03/14/25] nitrofurantoin monohydrate/macrocrystals 100 mg capsule 100 mg PO .moml-ukntz-pcm 03/14/25 [History Confirmed 03/14/25] simvastatin 20 mg tablet 20 mg PO QHS 03/14/25 [History Confirmed 03/14/25] Exam Physical Exam Vital Signs: Temp Pulse Resp BP Pulse Ox O2 Del Method O2 Flow Rate 98.0 F 20 L 94 H 106/71 95 Room Air 2 03/14/25 11:05 03/14/25 12:27 03/14/25 12:27 03/14/25 11:03/14/25 11:03/14/25 11:03/14/25 04:00 Narrative: GEN: Awake and alert. No acute distress. Neck: No JVD. Lungs: Coarse rhonchi R.L Heart: Regular rate and rhythm. Normal S1 and S2. No murmurs or rubs appreciated. Abdomen: Soft, nontender, nondistended, bowel sounds present. Extremities: No BLE edema. Neuro: No focal deficits. Results - Cardiology Labs 03/14/25 10:35 03/13/25 22:38 Lab results: Cardiac Enzymes 03/13/25 Range/Units 22:38 B-Natriuretic Peptide 28.0 (5-100) pg/mL CBC 03/13/25 03/14/25 Range/Units 22:38 10:35 RBC 4.52 4.27 (3.60-5.00) x10E6/uL Hgb 13.5 12.7 (11.8-15.4) g/dL Hct 40.5 38.5 (34.0-46.4) % Plt Count 206 169 (150-450) x10E3/uL Neut # (Auto) 3.7 5.0 (1.8-7.7) x10E3/uL Lymph # (Auto) 1.3 1.2 (1.00-4.8) x10E3/uL [place] # (Auto) 0.5 0.6 (0.0-0.8) x10E3/uL Eos # (Auto) 0.1 0.1 (0.0-0.45) x10E3/uL Baso # (Auto) 0.0 0.0 (0.0-0.2) x10E3/uL Comprehensive Metabolic Panel 03/13/25 Range/Units 22:38 Sodium 138 (136-145) mmol/L Potassium 3.7 (3.5-5.1) mmol/L Chloride 102 (98-107) mmol/L Carbon Dioxide 28.5 (21.0-31.0) mmol/L BUN 26 H (7-25) mg/dL Creatinine 0.74 (0.60-1.20) mg/dL Glucose 116 H (70-100) mg/dL Calcium 9.6 (8.6-10.3) mg/dL Intake and Output 03/13/25 03/14/25 03/14/25 23:59 07:59 15:59 Intake Total 400 / 400 Balance 400 / 400 Intake: IV 300 / 300 Azithromycin 500Mg-*Ns* 500 mg 250 / 250 In 250 ml @ 250 mls/hr IV ONCE ONE Rx#:[id number] cefTRIAXone 1GM-*NS* 1 gm In 50 50 / 50 ml @ 100 mls/hr IV ONCE ONE Rx #:[id number] Oral 100 / 100 Other: # Voids 1 Weight 60.05 kg 59.3 kg Date of Last Bowel Movement 03/13/25 03/13/25 Patient Weight 03/14/25 23:59 Weight 59.3 kg A&P - Cardiology (1) Elevated troponin: Code(s): R79.89 - Other specified abnormal findings of blood chemistry (2) Acute hypoxic respiratory failure: Code(s): J96.01 - Acute respiratory failure with hypoxia (3) Community acquired pneumonia: Code(s): J18.9 - Pneumonia, unspecified organism (4) Weakness: Code(s): R53.1 - Weakness (5) Human metapneumovirus pneumonia: Code(s): J12.3 - Human metapneumovirus pneumonia Plan Assessment: Type II MA in the setting of community acquired pneumonia Acute hypoxic respiratory failure secondary to CAP and human metapneumovirus HLD Hypothyroidism DM II GERD Hx of TBI with short term memory loss Echo 04/13/2024: LVEF 55-60% with normal wall motion. RV moderately dilated. Mild pulmonary hypertension Lexiscan stress MPI 04/16/2024: Normal perfusion. EF 68% EKG today sinus tachycardia with no ischemic changes Recommendations: - No history of angina. EKG shows no ischemia. Stress MPI 04/2024 negative for ischemia - Elevated troponin is 2/2 hypoxic respiratory failure. No concern for ACS - Repeat ECHO shows preserved LVEF with normal wall motion - No further ischemic work up recommended - Cardiology will sign off. Please call with questions. Documented By: Praveena Garcia MD 03/14/25 1501 Signed By: <Electronically signed by Praveena Garcia MD> 03/14/25 1510 [facility] Work Phone: Discharge summary Author Renan Murguia [facility] Note Date/Time March 15, 2025 3:38p m [facility] [address] [place], [place] [id number] Discharge Summary Signed Patient: Karuna Reynaga MR#: [id number] : 1945 Acct:[id number] Age/Sex: 80 / F Adm Date: 5 Loc: Room: [address] [place] [address]: Renan Murguia MD Copies to: MD Jamal Lanier,DO~ Providers Date of Discharge: 03/15/25 Discharging Provider: Renan Murguia Primary Care Provider: Jamal Alvarez Consults: 03/14/25 02:00 Consult to Cardiology Routine Comment: Consulting Provider: [facility] - Cardiology Reason For Exam: elevated troponin Has Provider Been Notified: Yes Date of Notification: 03/14/25 Time of Notification: 04:39 Consult to Occupational Therapy Routine Comment: Physician Instructions: Consult to OT for:: Evaluation and Treat Consult to Physical Therapy Routine Comment: Physician Instructions: Consult to PT for:: Evaluation and Treat Discharge Diagnosis Final Diagnosis Final Discharge Diagnosis: Acute bronchiectasis exacerbation due to human metapneumovirus, with possible superimposed bacterial infection Non-STEMI type II in the setting of the above Chronic problems Bronchiectasis Interstitial lung disease Nephrolithiasis Osteopenia Mild dementia IBS Dyslipidemia History of TBI 2002 Diabetes Hypothyroidism Frequent UTI Summary Hospital Course Hospital course: Patient is a pleasant 80-year-old female, with history of bronchiectasis, on chronic therapy with azithromycin. She presents to the Emergency Department on the March 14, complaining of fever productive cough and weakness. Evaluation including CT chest showed findings consistent with acute bronchitis, possible pneumonia. She tested positive for human metapneumovirus infection. She was admitted to the hospital where she continues treatment with azithromycin, ceftriaxone was added. No complications occurred. She briefly needed physical oxygen supplementation but then she was weaned off to room air. Cardiology service was consulted due to abnormal cardiac troponin, but this was considered to be a demand supply mild ischemic event. She was discharged home in stable condition on March 15. She will continue 5 more days of oral cefpodoxime to complete a total 7-day course of cephalosporin. Time Spent with Patient Time spent providing/coordinating discharge services (# min): 40 Discharge Plan Discharge Plan Patient Disposition: Home Health [facility] Activity: No Activity Restriction Diet: Regular Additional Instructions: Home Health to manage care: - Full code - PT eval and treat - Routine vital signs - Medication management and education - Instructions: Cefpodoxime, RSV in adults - Discharge instructions, Know your Meds Prescriptions: New cefpodoxime 200 mg tablet 200 mg PO BID 5 Days Qty: 10 0RF Rx Instructions: must administer with a meal/food; start 03/16/25 evening Continued levothyroxine 50 mcg tablet 50 mcg PO QAM Rx Instructions: daily except for sunday oxybutynin chloride 5 mg tablet extended release 24hr 5 mg PO QHS omeprazole 40 mg capsule,delayed release(DR/EC) 40 mg PO QAM furosemide [Lasix] 20 mg tablet 10 mg PO DAILY clopidogrel 75 mg tablet 75 mg PO QHS Patient Comments: TAKE 1 TABLET BY MOUTH EVERY DAY ibandronate [Boniva] 150 mg Tablet 150 mg PO Q30D Rx Instructions: on the first of every month cholecalciferol (vitamin D3) [Vitamin D3] 50 mcg (2,000 unit) Capsule 50 mcg PO QHS loperamide 2 mg capsule 2 mg PO QAM PRN (Reason: loose stool) liothyronine 5 mcg tablet 5 mcg PO QAM azithromycin 250 mg tablet 250 mg PO MOWEFR nitrofurantoin monohyd/m-cryst 100 mg capsule 100 mg PO .vpuy-serlc-mts simvastatin 20 mg tablet 20 mg PO QHS Other Ambulatory Orders: Initiate Home Health (Routine) Timeframe: 1 Day Location: Determined by Patient Ordered By: Renan Murguia Follow Up: Jamal Alvarez DO [Primary Care Provider] - (Call office on Sunday to schedulefollow-up with your Primary Care Provider within 3-5 days of discharge. ) Continuity of Care Document Health Concerns: A [facility] screening has identified you as FRAIL or AT RISK FOR FRAILTY. This puts you at a higher risk for infection, illness, falls,and other injuries. Here are four ways to help you reduce your risk of frailty: 1. IDENTIFY EARLY SIGNS OF FRAILTY ? Discuss contributing factors and concerns with your doctor 2. BE ACTIVE ? Walking and light strengthening exercises will help reduce weakness 3. EAT WELL ? Aim for three healthy meals a day that are high in protein 4. THINK POSITIVE ? Keep your mind active by being sociable and continuing to learn References: Stay Strong: Four Ways to Beat the Frailty Risk https://www.[facility].org/health/ddbkwobi-vnx-fagvmqhwqj/serv-rwnlgh-dfuh- ncho-jr-ileh-lvp-opwjivl-idia Exam Physical Exam Vital Signs: Temp Pulse Resp BP Pulse Ox O2 Del Method O2 Flow Rate 97.8 F 80 18 96/62 L 95 Room Air 2 03/15/25 08:00 03/15/25 11:24 03/15/25 11:24 03/15/25 08:00 03/15/25 08:00 03/15/25 08:00 03/14/25 08:00 Diagnostic Studies Completed and Pending Studies Pending studies at discharge: 03/13/25 23:11 Urine Culture Stat 03/13/25 23:57 ECG 12 lead ECG Stat 03/14/25 00:09 Blood Culture Stat 03/14/25 02:00 Sputum Culture Routine Preliminary micro results at discharge 03/13/25 23:11 Urine Culture - Preliminary Clean Void Midstream <9,000 colonies/ml mixed bacterial skin contaminants 1 Day 03/14/25 00:09 Blood Culture - Preliminary Blood No Growth 1 Day 03/14/25 00:02 Blood Culture - Preliminary Blood - Left Antecubital No Growth 1 Day Documented By: Renan Murguia MD 03/15/25 1343 Signed By: <Electronically signed by Renan Murguia MD> 03/15/25 1533 [facility] Work Phone: Evaluation noteNo assessment information available [facility] Diagnosis Hypothyroidism, adult- Primary Other specified acquired hypothyroidism 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) Mixed hyperlipidemia [facility]* Diagnosis Dermatophytosis of nail- Primary Well controlled type 2 diabetes mellitus with neurological manifestations (HCC) Type II or unspecified type diabetes mellitus with neurological manifestations, not stated as uncontrolled Unspecified hypothyroidism [facility]* Diagnosis Dermatophytosis of nail- Primary [facility]* Diagnosis ILD (interstitial lung disease) (HCC)- Primary Postinflammatory pulmonary fibrosis Shortness of breath documented in this encounter [facility] [facility] [place] note* Diagnosis Bronchiectasis without complication (HCC)- Primary Bronchiectasis without acute exacerbation Aspiration pneumonitis (HCC) Pneumonitis due to inhalation of food or vomitus Traumatic brain injury with loss of consciousness, sequela (HCC) documented in this encounter [facility] [place] note* Diagnosis Onset Date Resolution Status Bronchitis noneactive [facility] Work Phone: Evaluation note* Diagnosis Bronchiectasis without complication (HCC)- Primary Bronchiectasis without acute exacerbation documented in this encounter [facility] [place] note* Diagnosis Bronchiectasis without complication (HCC)- Primary Bronchiectasis without acute exacerbation documented in this encounter [facility] [place] note* Diagnosis Bronchiectasis without complication (HCC)- Primary Bronchiectasis without acute exacerbation Aspiration pneumonitis (HCC) Pneumonitis due to inhalation of food or vomitus Traumatic brain injury with loss of consciousness, sequela (HCC) documented in this encounter [facility] [place] note* Diagnosis Shortness of breath Hyperlipidemia, unspecified hyperlipidemia type Traumatic brain injury, with unknown loss of consciousness status, sequela ([facility]-HCC) BMI 32.0-32.9,adult Former smoker Personal history of [...] Medication course changed documented in this encounter [facility] Work Phone: Evaluation note* Diagnosis Convulsions, unspecified convulsion type (HCC)- Primary documented in this encounter [facility] [place] note* Diagnosis Bronchiectasis without complication (HCC) Bronchiectasis without acute exacerbation documented in this encounter [facility] [place] note* Diagnosis Bronchiectasis without complication (HCC)- Primary Bronchiectasis without acute exacerbation documented in this encounter [facility] [place] note* Diagnosis Bronchiectasis without complication (HCC)- Primary Bronchiectasis without acute exacerbation Yeast infection Candidiasis of unspecified site documented in this encounter [facility] [place] note* Diagnosis Interstitial pulmonary disease (HCC) Postinflammatory pulmonary fibrosis [facility] Diagnosis Convulsions, unspecified convulsion type (HCC)- Primary [facility] Diagnosis Focal epilepsy with impairment of consciousness, intractable (HCC)- Primary Localization-related (focal) (partial) 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, with intractable epilepsy [facility] Diagnosis Recurrent UTI- Primary Urinary tract infection, site not specified Bronchiectasis without complication (CMS/HCC) Atherosclerosis of aorta (CMS/HCC) Atherosclerosis of aorta Combined hyperlipidemia (CMS/HCC) Other and unspecified hyperlipidemia 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 (CMS/HCC) Need for immunization against influenza Need for prophylactic vaccination and inoculation against influenza Type 2 diabetes mellitus with peripheral neuropathy ([facility]/HCC) Gastroesophageal reflux disease without esophagitis Esophageal reflux Hypothyroidism, unspecified type (CMS/HCC) Moderate asthma without complication, unspecified whether persistent ([facility]) Osteoporosis, unspecified osteoporosis type, unspecified pathological fracture presence ([facility]) Urinary incontinence, unspecified type Seizure ([facility]/HCC) Other convulsions Traumatic brain injury with loss of consciousness, subsequent encounter Medication management documented in this encounter [facility]* Diagnosis Bronchiectasis without complication (HCC) Bronchiectasis without acute exacerbation [facility] Diagnosis Focal epilepsy with impairment of consciousness, intractable (HCC)- Primary Localization-related (focal) (partial) 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, with intractable epilepsy [facility]* Diagnosis Bronchiectasis without complication (CMS/HCC)- Primary Edema, unspecified type Recurrent UTI Urinary tract infection, site not specified Seizure ([facility]/HCC) Other convulsions Traumatic brain injury with loss of consciousness, subsequent encounter DISH (diffuse idiopathic skeletal hyperostosis) Ankylosing vertebral hyperostosis Hypothyroidism, unspecified type (CMS/HCC) Combined hyperlipidemia ([facility]/HCC) Other and unspecified hyperlipidemia Medicare annual wellness visit, subsequent Advance care planning Other specified counseling documented in this encounter [facility] note* Diagnosis Onset Date Resolution Status Admit Date Acute confusion acute March 14, 2025 1:57am Acute hypoxic respiratory failure ac helena March 14, 2025 1:57am Community acquired pneumonia acute March 14, 2025 1:57am Elevated troponin acute March 1:57am Human metapneumovirus pneumonia acut e March 14, 2025 1:57am Weakness acute March 14, 2025 1:57am [facility] Work Phone: Evaluation note* Diagnosis Bronchiectasis with acute lower respiratory infection (CMS/HCC)- Primary Pneumonia due to human metapneumovirus Hilar adenopathy Enlargement of lymph nodes Severe persistent reactive airway disease with acute exacerbation (CMS/HCC) Pulmonary hypertension, unspecified (CMS/HCC) Chronic reflux esophagitis Traumatic brain injury with loss of consciousness, subsequent encounter 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 (CMS/HCC) 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) Hypothyroidism, unspecified type (CMS/HCC) documented [facility]* Diagnosis Ankylosing spondylitis lumbar region (CMS/HCC)- Primary [facility] Author Magda Navarro [facility] Note Date/Time March 14, 2025 4:16a m [facility] [address] [place] [address] Hospitalist H&P Signed Patient: Karuna Reynaga MR#: [id number] : 1945 Acct:[id number] Age/Sex: 80 / F Adm Date: 5 Loc: Room: [address] [place] [address] Type: ADM IN Attending Dr: Matias Valdez DO Copies to: DO Magda Ayers APRN Shawn J Warner, ~ HPI DATE OF EXAMINATION: 03/14/25 CHIEF COMPLAINT: cough, fever, weakness HISTORY OF PRESENT ILLNESS: Ms. Reynaga is a 80-year-old female with a PMH of TBI, TIA, dysphagia, GERD, hypothyroidism, chronic bronchiectasis on 3 times a week azithromycin, chronic UTIs on 3 times a week Macrobid prophylactically, diabetes?diet controlled the presented to the emergency room tonight for complaints of cough, fever, weakness. Patient is resting on cart with eyes closed, easily awakens, alert toself. Daughter, Nadira, at bedside to help provide history. Patient denies pain, shortness of breath. Currently on room air, SpO2 92%, heart rate slightlytachycardic at 102. Daughter reports that patient had a couple of episodes of vomiting and diarrhea earlier in the week, states she woke up projectile vomiting, she believes it was from the lactate that she took because they tried a different brand. Over the last couple of days she has noticed the patient hashad an increasingly moist cough, today she had a fever of 101.4 degrees. She also states that she was very weak and unsteady on her feet. EKG sinus rhythm, repeat EKG sinus tachycardia. CT of the head showed no acute intracranial pathology, chronic changes are redemonstrated?gliosis and encephalomalacia noted in bilateral frontal lobes chest x-ray shows no acute cardiopulmonary pathology. CTA of the chest was negative for PE, groundglass opacities- likely infectious process. CBC is unremarkable. D-dimer less than 200. BMP is unremarkable. Troponin 437, repeat 403. UA with clear, yellow urine with 30 of protein, trace of occult blood, negative for infection. Respiratory panel was positive for human metapneumovirus. She was given a gram of Tylenol, 1 g of ceftriaxone, azithromycin, 325 of aspirin. She will be admitted as inpatient to the [facility] telemetry floor. Review of Systems Review of Systems Unobtainable due to mental condition [facility] Medical History Idiopathic interstitial pulmonary disease Osteopenia Osteoarthritis Eczema [...] Medications and Allergies Allergies codeine Allergy (Verified 03/13/25 17:15) Unknown Reaction strawberry Allergy (Verified 03/13/25 17:15) Nausea midazolam (From Versed) Adverse Reaction (Verified 03/13/25 17:15) Confusion Sulfa (Sulfonamide Antibiotics) Adverse Reaction (Verified 03/13/25 17:15) Rash opiates Adverse Reaction (Uncoded 01/09/23 10:55) Confusion Home Medications cholecalciferol (vitamin D3) 50 mcg (2,000 unit) capsule (Vitamin D3) 50 mcg PO QHS 10/17/21 [History Confirmed 03/14/25] clopidogrel 75 mg tablet 75 mg PO QHS 10/17/21 [History Confirmed 03/14/25] ibandronate 150 mg tablet (Boniva) 150 mg PO Q30D 10/17/21 [History Confirmed 03/14/25] liothyronine 5 mcg tablet 5 mcg PO QAM 12/26/22 [History Confirmed 03/14/25] loperamide 2 mg capsule 2 mg PO QAM PRN loose stool 02/21/24 [History Confirmed 03/14/25] levothyroxine 50 mcg tablet 50 mcg PO QAM 02/22/24 [History Confirmed 03/14/25] oxybutynin chloride 5 mg tablet,extended release 24 hr 5 mg PO QHS 02/22/24 [History Confirmed 03/14/25] furosemide 20 mg tablet (Lasix) 10 mg PO DAILY 04/13/24 [History Confirmed 03/14/25] omeprazole 40 mg capsule,delayed release 40 mg PO QAM 04/13/24 [History Confirmed 03/14/25] azithromycin 250 mg tablet 250 mg PO MOWEFR 03/14/25 [History Confirmed 03/14/25] nitrofurantoin monohydrate/macrocrystals 100 mg capsule 100 mg PO .[id number]-det 03/14/25 [History Confirmed 03/14/25] simvastatin 20 mg tablet 20 mg PO QHS 03/14/25 [History Confirmed 03/14/25] Exam Physical Exam Vital Signs: Temp Pulse Resp BP Pulse Ox O2 Del Method O2 Flow Rate 100.8 F H 94 22 101/51 L 97 Nasal Cannula 2 03/13/25 22:45 03/14/25 02:00 03/14/25 02:00 03/14/25 02:00 03/14/25 02:00 03/14/25 02:00 03/14/25 02:00 Narrative: CONST- Appears well -developed and well nourished. HEAD - Normocephalic and atraumatic EENT-Sclera nonicteric, conjunctive are non-erythemic, moist oral mucosa, pharynx clear NECK-Supple, no cervical lymphadenopathy CARDIAC-tachycardic, regular rhythm, S1 & S2. PULM-diminished without wheeze or rhonchi, RA, no accessory muscle use, moist, nonproductive cough noted ABD - Soft. Bowel sounds are normal. No distention. No tenderness EXTREM-no edema BLE calves, nontender SKIN- W/D good turgor MS- MAEX4 spontaneously with equal with equal strength?generalized weakness NEURO- A&Ox1 speech clear and tongue midline, equal facial symmetry, no focal motor deficits PSYCH-Mood, affect, and behavior appropriate Results - Hospitalist H&P Lab Results Labs: Laboratory Last Values Corrected WBC 5.6 X10E3/uL (3.8-11.6) 03/13/25 22:38 Uncorrected WBC Count 5.6 x10E3/uL (3.8-11.6) 03/13/25 22:38 RBC 4.52 x10E6/uL (3.60-5.00) 03/13/25 22:38 Hgb 13.5 g/dL (11.8-15.4) 03/13/25 22:38 Hct 40.5 % (34.0-46.4) 03/13/25 22:38 MCV 89.5 fl (80-100) 03/13/25 22:38 MCH 29.9 pg (24.7-34.3) 03/13/25 22:38 MCHC 33.5 g/dL (32.0-35.0) 03/13/25 22:38 RDW 13.6 % (11.9-15.3) 03/13/25 22:38 Plt Count 206 x10E3/uL (150-450) 03/13/25 22:38 MPV 8.2 fl (6.3-10.7) 03/13/25 22:38 Neut % (Auto) 65.8 % (.) 03/13/25 22:38 Lymph % (Auto) 23.1 % (.) 03/13/25 22:38 Renville % (Auto) 9.3 % (.) 03/13/25 22:38 Eos % (Auto) 1.1 % (.) 03/13/25 22:38 Baso % (Auto) 0.7 % (.) 03/13/25 22:38 Nucleat RBC Rel Count 0.1 /100 WBC (0-0.5) 03/13/25 22:38 Neut # (Auto) 3.7 x10E3/uL (1.8-7.7) 03/13/25 22:38 Lymph # (Auto) 1.3 x10E3/uL (1.00-4.8) 03/13/25 22:38 Renville # (Auto) 0.5 x10E3/uL (0.0-0.8) 03/13/25 22:38 Eos # (Auto) 0.1 x10E3/uL (0.0-0.45) 03/13/25 22:38 Baso # (Auto) 0.0 x10E3/uL (0.0-0.2) 03/13/25 22:38 Monocyte Dist Width 22.62 % (0.00-20.00) H 03/13/25 22:38 D-Dimer Quant (PE/DVT) < 200 ng/mL (0-243) 03/13/25 22:38 PHA Creatinine Clear 46.20 03/13/25 22:38 Sodium 138 mmol/L (136-145) 03/13/25 22:38 Potassium 3.7 mmol/L (3.5-5.1) 03/13/25 22:38 Chloride 102 mmol/L (98-107) 03/13/25 22:38 Carbon Dioxide 28.5 mmol/L (21.0-31.0) 03/13/25 22:38 Anion Gap 11.2 mEq/L (6.0-15.0) 03/13/25 22:38 BUN 26 mg/dL (7-25) H 03/13/25 22:38 Creatinine 0.74 mg/dL (0.60-1.20) 03/13/25 22:38 Est GFR (CKD-EPI) > 60.0 mL/Min 03/13/25 22:38 Glucose 116 mg/dL (70-100) H 03/13/25 22:38 Lactic Acid 1.3 mmol/L (0.5-1.9) 03/14/25 00:02 Calcium 9.6 mg/dL (8.6-10.3) 03/13/25 22:38 Troponin I High Sens 403 ng/L (0-15) H* 03/14/25 00:09 B-Natriuretic Peptide 28.0 pg/mL (5-100) 03/13/25 22:38 Urine Color Yellow (Yellow) 03/13/25 23:11 Urine Appearance Clear (Clear) 03/13/25 23:11 Urine pH 5.5 (5.0-9.0) 03/13/25 23:11 Ur Specific Granger 1.032 (1.001-1.030) H 03/13/25 23:11 Urine Protein 30 mg/dL (Negative) H 03/13/25 23:11 Urine Glucose (UA) Normal mg/dL (Normal) 03/13/25 23:11 Urine Ketones Negative (Negative) 03/13/25 23:11 Urine Occult Blood Trace (Negative) H 03/13/25 23:11 Urine Nitrite Negative (Negative) 03/13/25 23:11 Urine Bilirubin Negative (Negative) 03/13/25 23:11 Urine Urobilinogen Normal mg/dL (Normal) 03/13/25 23:11 Ur Leukocyte Esterase Negative (Negative) 03/13/25 23:11 Urine RBC 5-9 /HPF (0-4) H 03/13/25 23:11 Urine WBC 1-2 /HPF (0-4) 03/13/25 23:11 Ur Squamous Epith Cells 1-2 /HPF (0-2) 03/13/25 23:11 Other Crystals 2+ /HPF 03/13/25 23:11 Urine Bacteria None seen /HPF (None Seen) 03/13/25 23:11 Hyaline Casts None /LPF (0-8) 03/13/25 23:11 Urine Mucus Rare /LPF 03/13/25 23:11 COVID-19 Clin Com Not detected (Not Detecte) 03/13/25 22:53 Microbiology Results Micro: Microbiology - Results from entire visit 03/13/25 22:53 Nasopharyngeal Respiratory Panel (PCR) - Final Assessment & Plan Assessment/Plan (1) Human metapneumovirus pneumonia: (2) Community acquired pneumonia: (3) Acute hypoxic respiratory failure: (4) Weakness: (5) Elevated troponin: Plan Community acquired pneumonia Human metapneumovirus pneumonia Acute hypoxic respiratory failure likely due to pneumonia ? Continue oxygen as needed, keep SpO2 greater than 90% ? Continue azithromycin oral, ceftriaxone?pharmacy to dose ? DuoNebs 4 times daily, albuterol as needed, Robitussin as needed ? Acetaminophen, Zofran as needed Weakness?likely due to pneumonia ? Consult PT/OT Elevated troponin-437--> 403, have been elevated in the past - Consult cardiology - No c/o chest pain, no EKG changes Chronic conditions Hypothyroidism?levothyroxine, liothyronine Chronic bronchiectasis Chronic UTIs?hold Macrobid Overactive bladder?oxybutynin HLD?simvastatin TIA?clopidogrel DVT PPx?heparin Diet order?regular CODE STATUS?full code I reviewed the history, formulated the plan of care and confirmed the Nurse Practitioner's assessment and plan after discussion with her about the case. - Matias Valdez DO IP vs OBS Justification Based on differential dx, clinical care plan, and risk of adverse events, if untreated, in my clinical judgement this patient requires an acute care setting as: INPATIENT because of an expectation of an over 2 midnight stay. Estimated length of stay (# of days): 3 Documented By: Magda Navarro APRN 03/14/25 0207 Signed By: <Electronically signed by ROSELYN Navarro> 03/14/25 0239 <Electronically signed by Matias Valdez DO> 03/14/25 0416 [facility] Work Phone: Progress note Author W Deshawn [facility] April 16, 2024 6:05pm Note Date/Time April 16, 2024 6:05 pm [facility] [address] [place] [address] Cardiology Progress Note Signed Patient: Karuna Reynaga MR#: [id number] : 1945 Acct:[id number] Age/Sex: 79 / F Adm Date: 4 Loc: Room: [address] [place] [address] Type: ADM IN Attending Dr: Renan Murguia MD Copies to: ~ Date of Service: 04/16/2024 Subjective Principal diagnosis: Near syncopal episode; troponin elevation Interval history: Ms. Reynaga is a 79 year old female that was seen in cardiology consultation at the request of the hospitalist and in conjunction with second-year bilingual medical assistant Dr. Hernandez for elevated troponin levels. Patient is seen and evaluated with the bilingual medical assistant, I agree with her evaluation and note, [...] on Lasix one month ago by her icer air conditioning, Dr. Lora, for possible heart failure. Her [...] % (Auto) 66.9 Lymph % (Auto) 22.3 Renville % (Auto) 6.4 Eos % (Auto) 3.6 Baso % (Auto) 0.8 Nucleat RBC Rel Count 0.0 Neut # (Auto) 5.0 Lymph # (Auto) 1.7 Renville # (Auto) 0.5 Eos # (Auto) 0.3 [...] <Electronically signed by Vic Hess DO> 04/16/241804 [facility] Work Phone: Progress note Author Renan Murguia [facility] Note Date/Time March 14, 2025 1:01p m [facility] [address] [place] [address] Hospitalist Progress Note Signed Patient: Karuna Reynaga MR#: [id number] : 1945 Acct:[id number] Age/Sex: 80 / F Adm Date: Loc: Room: [address] [place] [address] Type: ADM IN Attending Dr: Renan Murguia MD Copies to: ~ Date of Service: 03/14/2025 Subjective Subjective Narrative: Attending note: I saw the patient personally on the day of encounter. I reviewed the relevant history, and performed the calderon elements of the physical examination. I reviewedthe relevant laboratory workup, radiological studies and the current treatment plan. I formulated the plan of care and confirmed it with the resident/student/PERSONAL CARE ATTENDANT. Patient seen sitting in chair at bedside with daughter Nadira present, who helpsprovide patient history. Patient states she is grateful for our care, but is otherwise only oriented to person, but not place or time. 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 Patient continues to have a cough. Denies fevers,chills, chest pain, abdominal pain, nausea, vomiting, diarrhea, constipation or any other acute symptoms at this time. Exam Physical Exam Vital Signs: Temp Pulse Resp BP Pulse Ox O2 Del Method O2 Flow Rate 98.0 F 78 20 106/67 98 Room Air 2 03/14/25 08:00 03/14/25 09:16 03/14/25 09:16 03/14/25 08:00 03/14/25 08:00 03/14/25 08:00 03/14/25 04:00 Narrative: CONSTITUTIONAL: No apparent distress. Alert, oriented to person only. HEAD: Nasal cannula in place with 2 L of oxygen. Normocephalic, atraumatic. EYES: EOMI. Pupils equal and reactive. Conjunctiva normal. ENT: External auditory canals wnl. No rhinorrhea. No pharyngeal exudates or erythema. NECK: No meningismus. No adenopathy. LUNGS: Lung sounds diminished throughout anterior and posterior listening galindo. Symmetric chest rise. No wheezes, rales or rhonchi. CARDIOVASCULAR: Regular rate and rhythm. No murmurs. Symmetric palpable radial and dorsalis pedis pulses. ABDOMEN: Soft, non-tender, non-distended. Normal bowel sounds. Extremities: No clubbing, cyanosis, or edema. SKIN: Intact. No rash. No trauma. NEUROLOGIC: Cranial nerves grossly intact. No focal neurologic signs. PSYCHIATRIC: Normal affect. Pleasantly demented. Objective Lab Results 03/14/25 10:35 03/13/25 22:38 Microbiology Results Microbiology 03/13/25 22:53 Nasopharyngeal Respiratory Panel (PCR) - Final Meds Allergies and Active Meds Allergies codeine Allergy (Verified 03/13/25 17:15) Unknown Reaction strawberry Allergy (Verified 03/13/25 17:15) Nausea midazolam (From Versed) Adverse Reaction (Verified 03/13/25 17:15) Confusion Sulfa (Sulfonamide Antibiotics) Adverse Reaction (Verified 03/13/25 17:15) Rash opiates Adverse Reaction (Uncoded 01/09/23 10:55) Confusion Active Meds: Active Medications Generic Name Dose Route Start Last Admin Trade Name Freq PRN Reason Stop Dose Admin Acetaminophen 1,000 mg 03/14/25 02:00 Acetaminophen 500 Mg Tablet PO 03/14/26 01:59 Q6HR PRN Pain Scale 1 - 3 or fever Albuterol 2.5 mg 03/14/25 02:32 Albuterol Neb 2.5 Mg/3 Ml Vial.Neb INHALATION 03/14/26 02:31 Q2H PRN Shortness Of Breath Albuterol/Ipratropium 3 ml 03/14/25 08:00 03/14/25 09:05 Ipratropium/Albuterol 0.5-3 Mg 3 Ml Ampul.Neb INHALATION 03/14/26 07:59 3 ml QID.RESP MIRYAM Administration Atorvastatin Calcium 10 mg 03/14/25 22:00 Atorvastatin 10 Mg Tablet PO 03/14/26 21:59 QHS MIRYAM Azithromycin 500 mg 03/15/25 09:00 Azithromycin 250 Mg Tablet PO DAILY MIRYAM Clopidogrel Bisulfate 75 mg 03/14/25 22:00 Clopidogrel Bisulfate 75 Mg Tablet PO 03/14/26 21:59 QHS MIRYAM Guaifenesin 20 ml 03/14/25 02:00 Guaifenesin Syrup 10 Ml Udc PO 03/14/26 01:59 Q6H PRN Cough Lactated Ringer's 1,000 mls @ 50 mls/hr 03/14/25 02:00 03/14/25 03:50 Lactated Ringers IV 03/14/25 17:32 75 mls/hr .Q20H MIRYAM Administration Ceftriaxone Sodium 1 gm in 50 mls @ 100 mls/hr 03/15/25 00:30 Rocephin IV Q24H MIRYAM Levothyroxine Sodium 50 mcg 03/14/25 06:30 03/14/25 06:33 Levothyroxine 50 Mcg Tablet PO 03/14/26 06:29 50 mcg [id number] MIRYAM Administration Liothyronine Sodium 5 mcg 03/14/25 09:00 Liothyronine 5 Mcg Tablet PO 03/14/26 08:59 QAM MIRYAM Loperamide HCl 2 mg 03/14/25 02:06 Loperamide 2 Mg Capsule PO 03/14/26 02:05 QAM PRN loose stool Melatonin 5 mg 03/14/25 02:00 Melatonin 5 Mg Tablet PO 03/14/26 01:59 QHS PRN Insomnia Ondansetron HCl 4 mg 03/14/25 02:00 Ondansetron 4 Mg/2 Ml Vial IV-PUSH 03/14/26 01:59 Q6H PRN Nausea And Vomiting Oxybutynin Chloride 5 mg 03/14/25 22:00 Oxybutynin Chloride 5 Mg Tab.Er.24 PO 03/14/26 21:59 QHS MIRYAM Pantoprazole Sodium 40 mg 03/14/25 09:00 03/14/25 09:28 Pantoprazole 40 Mg Tablet.Dr PO 03/14/26 08:59 40 mg BID MIRYAM Administration Rivaroxaban 10 mg 03/15/25 09:00 Rivaroxaban 10 Mg Tablet PO 03/15/26 08:59 DAILY MIRYAM Sodium Chloride 0 ml 03/13/25 17:14 Sodium Chloride 0.9 % 10 Ml Syringe IV-PUSH 03/13/26 17:13 PRN PRN Flush A&P - Hospitalist Assessment/Plan (1) Community acquired pneumonia: Plan 1. Community acquired pneumonia complicating Human metapneumovirus infection, patient with chronic bronchiectasis ? Continue oxygen as needed ? Continue azithromycin oral, ceftriaxone day 2 ? DuoNebs 4 times daily, albuterol as needed, Robitussin as needed ? Acetaminophen, Zofran as needed #2 weakness?likely due to pneumonia ? Consult PT/OT #3 Non-STEMI type II - Consult cardiology ?Echocardiogram - No c/o chest pain, no EKG changes Chronic conditions Hypothyroidism?levothyroxine, liothyronine Chronic bronchiectasis Chronic UTIs?hold Macrobid Overactive bladder?oxybutynin HLD?simvastatin TIA?clopidogrel DVT PPx?Xarelto Diet order?regular CODE STATUS?full code Documented By: Renan Murguia MD 03/14/25 1101 Signed By: <Electronically signed by Renan Murguia MD> 03/14/25 1301 <Electronically signed by DO JAUN Hawkins> 03/14/25 1213 [facility] Work Phone: Progress note Author Renan Murguia [facility] Note Date/Time March 15, 2025 1:54p m [facility] [address] [place] [address] Hospitalist Progress Note Signed Patient: Karuna Reynaga MR#: [id number] : 1945 Acct:[id number] Age/Sex: 80 / F Adm Date: 5 Loc: 3T Room: [address] [place] [address] Type: ADM IN Attending Dr: Renan Murguia MD Copies to: ~ Date of Service: 03/15/2025 Subjective Subjective Narrative: Patient is sitting in the chair. She has no complaints. On examination minimal rhonchi bilaterally. No rales or wheezes. Point of ultrasound of the heart is unremarkable. Central venous pressure measured in bilateral jugular veins approximately 5 cm of water. No signs of heart failure. Abdomen soft benign Neurological nonfocal Exam Physical Exam Vital Signs: Temp Pulse Resp BP Pulse Ox O2 Del Method O2 Flow Rate 97.8 F 80 18 96/62 L 95 Room Air 2 03/15/25 08:00 03/15/25 11:24 03/15/25 11:24 03/15/25 08:00 03/15/25 08:00 03/15/25 08:00 03/14/25 08:00 Objective Lab Results 03/14/25 10:35 03/13/25 22:38 Microbiology Results Microbiology 03/13/25 23:11 Clean Void Midstream Urine Culture - Preliminary <9,000 colonies/ml mixed bacterial skin contaminants 1 Day 03/14/25 00:09 Blood Blood Culture - Preliminary No Growth 1 Day 03/14/25 00:02 Blood - Left Antecubital Blood Culture - Preliminary No Growth 1 Day Meds Allergies and Active Meds Allergies codeine Allergy (Verified 03/13/25 17:15) Unknown Reaction strawberry Allergy (Verified 03/13/25 17:15) Nausea midazolam (From Versed) Adverse Reaction (Verified 03/13/25 17:15) Confusion Sulfa (Sulfonamide Antibiotics) Adverse Reaction (Verified 03/13/25 17:15) Rash opiates Adverse Reaction (Uncoded 01/09/23 10:55) Confusion Active Meds: Active Medications Generic Name Dose Route Start Last Admin Trade Name Freq PRN Reason Stop Dose Admin Acetaminophen 1,000 mg 03/14/25 02:00 03/14/25 20:45 Acetaminophen 500 Mg Tablet PO 03/14/26 01:59 1,000 mg Q6HR PRN Administration Pain Scale 1 - 3 or fever Albuterol 2.5 mg 03/14/25 02:32 03/15/25 01:23 Albuterol Neb 2.5 Mg/3 Ml Vial.Neb INHALATION 03/14/26 02:31 2.5 mg Q2H PRN Administration Shortness Of Breath Albuterol/Ipratropium 3 ml 03/14/25 08:00 03/15/25 11:22 Ipratropium/Albuterol 0.5-3 Mg 3 Ml Ampul.Neb INHALATION 03/14/26 07:59 3 ml QID.RESP MIRYAM Administration Atorvastatin Calcium 10 mg 03/14/25 21:00 03/14/25 20:44 Atorvastatin 10 Mg Tablet PO 03/14/26 20:59 10 mg QPM MIRYAM Administration Azithromycin 500 mg 03/15/25 09:00 03/15/25 10:33 Azithromycin 250 Mg Tablet PO 500 mg DAILY MIRYAM Administration Clopidogrel Bisulfate 75 mg 03/14/25 22:00 03/14/25 21:22 Clopidogrel Bisulfate 75 Mg Tablet PO 03/14/26 21:59 Not Given QHS MIRYAM Guaifenesin 1,200 mg 03/14/25 21:00 03/15/25 10:33 Guaifenesin 600 Mg Tab.Er.12h PO 03/14/26 20:59 Not Given BID MIRYAM Ceftriaxone Sodium 1 gm in 50 mls @ 100 mls/hr 03/15/25 00:30 03/15/25 00:35 Rocephin IV 100 mls/hr Q24H MIRYAM Administration Levothyroxine Sodium 50 mcg 03/14/25 06:30 03/14/25 06:33 Levothyroxine 50 Mcg Tablet PO 03/14/26 06:29 50 mcg [id number]@0630 MIRYAM Administration Liothyronine Sodium 5 mcg 03/14/25 16:30 03/15/25 10:33 Liothyronine 5 Mcg Tablet PO 03/14/26 16:29 5 mcg QAM MIRYAM Administration Loperamide HCl 2 mg 03/14/25 02:06 Loperamide 2 Mg Capsule PO 03/14/26 02:05 QAM PRN loose stool Melatonin 5 mg 03/14/25 02:00 Melatonin 5 Mg Tablet PO 03/14/26 01:59 QHS PRN Insomnia Ondansetron HCl 4 mg 03/14/25 02:00 Ondansetron 4 Mg/2 Ml Vial IV-PUSH 03/14/26 01:59 Q6H PRN Nausea And Vomiting Oxybutynin Chloride 5 mg 03/14/25 21:00 03/14/25 20:44 Oxybutynin Chloride 5 Mg Tab.Er.24 PO 03/14/26 20:59 5 mg QPM MIRYAM Administration Pantoprazole Sodium 40 mg 03/14/25 09:00 03/15/25 10:33 Pantoprazole 40 Mg Tablet.Dr PO 03/14/26 08:59 40 mg BID MIRYAM Administration Rivaroxaban 10 mg 03/15/25 09:00 03/15/25 10:37 Rivaroxaban 10 Mg Tablet PO 03/15/26 08:59 Not Given DAILY MIRYAM Sodium Chloride 0 ml 03/13/25 17:14 Sodium Chloride 0.9 % 10 Ml Syringe IV-PUSH 03/13/26 17:13 PRN PRN Flush A&P - Hospitalist Assessment/Plan (1) Community acquired pneumonia: Plan . Patient is stable to be discharged home. No evidence of heart failure. Appreciate input from cardiology. Documented By: Renan Murguia MD 03/15/25 [id number] Signed By: <Electronically signed by Renan Murguia MD> 03/15/25 [address] [facility] Work Phone: Reason for referral (narrative)* Outpatient Procedure (Routine) - Authorized Specialty Diagnoses / Procedures Referred By Contac t Referred To [facility] Diagnoses Bronchiectasis without complication (HCC) Procedures LUNG DIFFUSION CAPACITY (DLCO) DIFFUSING CAPACITY Ubaldo Dubose MD [address] [place] [address] [address] Referral ID Status Reason Start Date Expiration Date Visits Requested Visits Authorized [id number] Authorized Auto-Generat ed Referral 12/28/2023 01/26/2025 1 1 * Outpatient Procedure (Routine) - Authorized Specialty Diagnoses / Procedures Referred By Contac t Referred To [facility] Diagnoses Bronchiectasis without complication (HCC) Procedures SPIROMETRY BASELINE ONLY SPMTRY W/VC EXPIRATORY MIRIAM W/WO MXML VOL VNTJ Ubaldo Dubose MD [address] [place] [address] [address] Referral ID Status Reason Start Date Expiration Date Visits Requested Visits Authorized [id number] Authorized Auto-Generat ed Referral 12/28/2023 01/26/2025 1 1 [facility] for referral (narrative)* Outpatient Procedure (Routine) - Pending Review Specialty Diagnoses / Procedures Referred By Contac t Referred To Contact [facility] Diagnoses Convulsions, unspecified convulsion type (HCC) Procedures EPIL EEG LONG EEG EXTENDED MONITORING 61-119 MINUTES ELECTROENCEPHALOGRAM REC COMA/SLEEP ONLY Charito Crow APRN.CNP [id number] [place] [address] Referral ID Status Reason Start Date Expiration Date Visits Requested Visits Authorized [id number] Pending Review Auto-Generat ed Referral 04/22/2024 04/22/2025 1 1 [facility] for referral (narrative)* Outpatient Procedure (Routine) - New Request Specialty Diagnoses / Procedures Referred By Contac t Referred To Contact [facility] Diagnoses Convulsions, unspecified convulsion type (HCC) Procedures EPIL EEG LONG EPIL EEG LONG EEG EXTENDED MONITORING 61-119 MINUTES ELECTROENCEPHALOGRAM REC COMA/SLEEP ONLY Melvi García PA-C [address] [address] [facility] [address] [place], [place] [id number] Referral ID Status Reason Start Date Expiration Date Visits Requested Visits Authorized [id number] New Request Auto-Generat ed Referral 07/30/2024 07/30/2025 1 1 [facility] Family History Unknown Family Member Name [...] (non-ST elevated myocardial infarction) Syncope Chief Complaint Admit Date patient has orders November 20, 2024 2 :40pm Chief Complaint Admit Date patient has orders November 20, 2024 2 :40pm See order February 06, 2025 2:09 pm Chief Complaint Admit Date See order February 06, 2025 2:09 pm Unknown February 25, 2025 3:3 0pm Chief Complaint Admit Date See order February 06, 2025 2:09 pm Unknown February 25, 2025 3:3 0pm cough, sob, chest pain March 14, 2025 1: 57am Reason for Visit Admit Date Acute confusion March 14, 2025 1:57a m Acute hypoxic respiratory failure March 142024 1:57am Community acquired pneumonia March 14, 025 1:57am Elevated troponin March 14, 2025 1:57a m Human metapneumovirus pneumonia March 1:57am Weakness March 14, 2025 1:57a m Chief Complaint Admit Date See order February 06, 2025 2:09 pm Unknown February 25, 2025 3:3 0pm cough, sob, chest pain March 14, 2025 1: 57am cough, sob, chest pain March 14, 2025 3: 02pm Reason for Referral Specialty Diagnoses / Procedures Referred By Marie duff Referred To Contact Cardiology Diagnoses Shortness of breath Cough, unspecified type Abnormal lung sounds Procedures Transthoracic Echo Complete UT ECHO TTHRC R-T 2D W/WOM-MODE COMPL SPEC&COLR D Judit Lora MD [address] [address] Referral ID Status Reason Start Date Expiration Date Visits Requested Visits Authorized [id number] Pending Review Perform Procedure 03/10/2024 03/10/2025 1 1 Specialty Diagnoses / Procedures Referred By Marie duff Referred To Contact Diagnoses Shortness of breath Procedures ECG 12 Lead Judit Lora MD 254 [facility] [address] [place] [address] Referral ID Status Reason Start Date Expiration Date V isits Requested Visits Authorized [id number] Authorized 03/10/2024 03/10/2025 1 1 Specialty Diagnoses / Procedures Referred By Contac t Referred To Contact Cardiology Diagnoses Shortness of breath Procedures Follow Up In Cardiology Judit Lora MD 254 [facility] [address] [place] [address] Judit Lora MD [address] [place] [address] Referral ID Status Reason Start Date Expiration Date V isits Requested Visits Authorized [id number] Authorized 03/10/2024 03/10/2025 1 1 Specialty Diagnoses / Procedures Referred By Contac t Referred To Contact CT IMAGING Diagnoses Interstitial pulmonary disease (HCC) Procedures CT CHEST WO IVCON DIAGNOSTIC COMPUTED TOMOGRAPHY THORAX W/O CNTRST Dee Leal, ROSELYN.ASPHALT SURFACE HEATER OPERATOR [address] [place] [address] [place] [address] Referral ID Status Reason Start Date Expiration Date V isits Requested Visits Authorized [id number] Closed Auto-Generate d Referral 12/11/2023 01/09/2025 1 [...] section and content) DATE CREATED AUTHOR 10/21/2021 [facility] dical Specialist DATE CREATED AUTHOR AUTHOR'S ORGANIZ ATION 10/22/2021 [employer] DATE CREATED AUTHOR AUTHOR'S ORGANIZ ATION 02/12/2023 [facility] DATE CREATED AUTHOR AUTHOR'S ORGANIZ ATION 01/09/2025 [facility] DATE CREATED AUTHOR AUTHOR'S ORGANIZ ATION 01/19/2025 [facility] DATE CREATED AUTHOR AUTHOR'S ORGANIZ ATION 03/19/2025 [facility] DATE CREATED AUTHOR AUTHOR'S ORGANIZ ATION 03/26/2025 [facility] DATE CREATED AUTHOR AUTHOR'S ORGANIZ ATION 04/12/2025 [facility] dical Specialists EPIC Source Comments (unrecognize d section and content) In the event this informatio n is protected by the Federal Confidentiality of Alcohol and Drug Abuse Patient Records regulations: The Federal rules restrict any use of the information to criminally investigate or prosecute any alcohol or drug abuse patient.[facility] the event this information is protected by the Federal Confidentiality of Alcohol and Drug Abuse Patient Records regulations: The Federal rules restrict any use of the information to criminally investigate or prosecute any alcohol or drug abuse patient.[facility] the event this information is protected by the Federal Confidentiality of Alcohol and Drug Abuse Patient Records regulations: The Federal rules restrict any use of the information to criminally investigate or prosecute any alcohol or drug abuse patient.[facility] Hospital[facility] the event this information is protected by the Federal Confidentiality of Alcohol and Drug Abuse Patient Records regulations: The Federal rules restrict any use of the information to criminally investigate or prosecute any alcohol or drug abuse patient.[facility] Hospital[facility] the event this information is protected by the Federal Confidentiality of Alcohol and Drug Abuse Patient Records regulations: The Federal rules restrict any use of the information to criminally investigate or prosecute any alcohol or drug abuse patient.[facility] HospitalIn the event this information is protected by the Federal Confidentiality of Alcohol and Drug Abuse Patient Records regulations: The Federal rules restrict any use of the information to criminally investigate or prosecute any alcohol or drug abuse patient.[facility] HospitalIn the event this information is protected by the Federal Confidentiality of Alcohol and Drug Abuse Patient Records regulations: The Federal rules restrict any use of the information to criminally investigate or prosecute any alcohol or drug abuse patient.[facility] Hospital[facility] the event this information is protected by the Federal Confidentiality of Alcohol and Drug Abuse Patient Records regulations: The Federal rules restrict any use of the information to criminally investigate or prosecute any alcohol or drug abuse patient.[facility] Hospital[facility] the event this information is protected by the Federal Confidentiality of Alcohol and Drug Abuse Patient Records regulations: The Federal rules restrict any use of the information to criminally investigate or prosecute any alcohol or drug abuse patient.[facility] Hospital[facility] the event this information is protected by the Federal Confidentiality of Alcohol and Drug Abuse Patient Records regulations: The Federal rules restrict any use of the information to criminally investigate or prosecute any alcohol or drug abuse patient.[facility] Hospital[facility] the event this information is protected by the Federal Confidentiality of Alcohol and Drug Abuse Patient Records regulations: The Federal rules restrict any use of the information to criminally investigate or prosecute any alcohol or drug abuse patient.[facility] Hospital[facility] the event this information is protected by the Federal Confidentiality of Alcohol and Drug Abuse Patient Records regulations: The Federal rules restrict any use of the information to criminally investigate or prosecute any alcohol or drug abuse patient.[facility] Hospital[facility] the event this information is protected by the Federal Confidentiality of Alcohol and Drug Abuse Patient Records regulations: The Federal rules restrict any use of the information to criminally investigate or prosecute any alcohol or drug abuse patient.[facility] Hospital[facility] the event this information is protected by the Federal Confidentiality of Alcohol and Drug Abuse Patient Records regulations: The Federal rules restrict any use of the information to criminally investigate or prosecute any alcohol or drug abuse patient.[facility] HospitalIn the event this information is protected by the Federal Confidentiality of Alcohol and Drug Abuse Patient Records regulations: The Federal rules restrict any use of the information to criminally investigate or prosecute any alcohol or drug abuse patient.[facility] Hospital[facility] the event this information is protected by the Federal Confidentiality of Alcohol and Drug Abuse Patient Records regulations: The Federal rules restrict any use of the information to criminally investigate or prosecute any alcohol or drug abuse patient.[facility] Hospital[facility] the event this information is protected by the Federal Confidentiality of Alcohol and Drug Abuse Patient Records regulations: The Federal rules restrict any use of the information to criminally investigate or prosecute any alcohol or drug abuse patient.[facility] Hospital[facility] the event this information is protected by the Federal Confidentiality of Alcohol and Drug Abuse Patient Records regulations: The Federal rules restrict any use of the information to criminally investigate or prosecute any alcohol or drug abuse patient.[facility] HospitalIn the event this information is protected by the Federal Confidentiality of Alcohol and Drug Abuse Patient Records regulations: The Federal rules restrict any use of the information to criminally investigate or prosecute any alcohol or drug abuse patient.[facility] HospitalIn the event this information is protected by the Federal Confidentiality of Alcohol and Drug Abuse Patient Records regulations: The Federal rules restrict any use of the information to criminally investigate or prosecute any alcohol or drug abuse patient.[facility] HospitalIn the event this information is protected by the Federal Confidentiality of Alcohol and Drug Abuse Patient Records regulations: The Federal rules restrict any use of the information to criminally investigate or prosecute any alcohol or drug abuse patient.[facility] HospitalIn the event this information is protected by the Federal Confidentiality of Alcohol and Drug Abuse Patient Records regulations: The Federal rules restrict any use of the information to criminally investigate or prosecute any alcohol or drug abuse patient.[facility] HospitalIn the event this information is protected by the Federal Confidentiality of Alcohol and Drug Abuse Patient Records regulations: The Federal rules restrict any use of the information to criminally investigate or prosecute any alcohol or drug abuse patient.[facility] HospitalIn the event this information is protected by the Federal Confidentiality of Alcohol and Drug Abuse Patient Records regulations: The Federal rules restrict any use of the information to criminally investigate or prosecute any alcohol or drug abuse patient.[facility] HospitalIn the event this information is protected by the Federal Confidentiality of Alcohol and Drug Abuse Patient Records regulations: The Federal rules restrict any use of the information to criminally investigate or prosecute any alcohol or drug abuse patient.[facility] HospitalIn the event this information is protected by the Federal Confidentiality of Alcohol and Drug Abuse Patient Records regulations: The Federal rules restrict any use of the information to criminally investigate or prosecute any alcohol or drug abuse patient.[facility] HospitalIn the event this information is protected by the Federal Confidentiality of Alcohol and Drug Abuse Patient Records regulations: The Federal rules restrict any use of the information to criminally investigate or prosecute any alcohol or drug abuse patient.[facility] HospitalIn the event this information is protected by the Federal Confidentiality of Alcohol and Drug Abuse Patient Records regulations: The Federal rules restrict any use of the information to criminally investigate or prosecute any alcohol or drug abuse patient.[facility] HospitalIn the event this information is protected by the Federal Confidentiality of Alcohol and Drug Abuse Patient Records regulations: The Federal rules restrict any use of the information to criminally investigate or prosecute any alcohol or drug abuse patient.[facility] HospitalIn the event this information is protected by the Federal Confidentiality of Alcohol and Drug Abuse Patient Records regulations: The Federal rules restrict any use of the information to criminally investigate or prosecute any alcohol or drug abuse patient.[facility] HospitalIn the event this information is protected by the Federal Confidentiality of Alcohol and Drug Abuse Patient Records regulations: The Federal rules restrict any use of the information to criminally investigate or prosecute any alcohol or drug abuse patient.[facility] Care Teams (unrecognized sec tion and content) Facility Administrator Relationship Specialty Start Date End Date Kostas Vance, DO [address] [place] [address] PCP General 05/25/09 Facility Administrator Relationship Specialty Start Date End Date Kostas Vance, DO [address] [place] [address] PCP [facility] 05/25/09 Facility Administrator Relationship Specialty Start Date End Date Kostas Vance, DO [address] [place] [address] PCP [facility] 05/25/09 Team Status: Inactive Member Role Status [...] November 21, 2023 End: November 21, 2023 Facility Administrator Relationship Specialty Start Date End Date Jamal Alvarez DO [address] [place] [address] PCP - General Internal Medicine 12/25/23 Facility Administrator Relationship Specialty Start Date End Date AntonioJamal [address] [place] [address] PCP - General Internal Medicine 12/25/23 Facility Administrator Relationship Specialty Start Date End Date AntonioJamalbreezy [address] [place] [address] PCP - General Internal Medicine 12/25/23 Team [...] Provider Active S tart: February 13, 2024 Facility Administrator Relationship Specialty Start Date End Date Jamal Alvarez DO [address] [place] [address] PCP - General Internal Medicine 12/25/23 Team Status: Active Member Role Status Dates Jamal Alvarez DO Primary Care Provide r, Attending Provider Active Start: February 19, 2024 Team Status: Inactive Member Role Status Dates Jamal Alvarez DO Primary Care Provider Active Start: February 21, 2024 End: February 21, 2024 Flex Ramos MD Attending Provider Active Start: February 21, 2024 End: February 21, 2024 Facility Administrator Relationship Specialty Start Date End Date Jamal Alvarez DO [address] [facility] [address] [place] [address] PCP - General Internal Medicine 12/25/23 Team Status: Active Member Role Status Dates Jamal Alvarez DO Primary Care Provide r, Attending Provider Active Start: February 21, 2024 Team Status: Inactive Member Role Status Dates Jamal Alvarez DO Primary Care Provider Active Start: February 25, 2024 End: February 25, 2024 Jose Luis Lcokhart , TEAGAN MSN ANP-C Attending Provider Act darrin Start: February 25, 2024 End: February 25, 2024 Facility Administrator Relationship Specialty Start Date End Date Jamal Alvarez DO [address] [facility] [address] [place] [address] PCP - General Internal Medicine 12/25/23 Facility Administrator Relationship Specialty Start Date End Date Jamal Alvarez DO [address] [facility] [address] [place] [address] PCP - General Internal Medicine 12/25/23 Facility Administrator Relationship Specialty Start Date End Date Jamal Alvarez DO [address] [facility] [address] [place] [address] PCP - General Internal Medicine 12/25/23 Facility Administrator Relationship Specialty Start Date End Date Jamal Alvarez DO [address] [place] [address] PCP - General 11/05/99 Team Status: Active [...] 2023 End: April 16, 2024 Emilee Perez [facility]- Other Provider Active Sta rt: April [...] Start: J une 2023 Emilee Perez , [facility] Other Provider Active Sta rt: April 16, [...] February 22, 2024 End: February 22, 2024 Facility Administrator Relationship Specialty Start Date End Date Jamal Alvarez DO [address] [facility] [address] [place] [address] PCP - General Internal Medicine 12/25/23 Team Status: Inactive Member Role Status Dates Jamal Alvarez DO Primary Care Provider Active Start: April 22, 2024 End: April 22, 2024 Valdez Castro MD Attending Provider Active S tart: April 22, 2024 End: April 22, 2024 Facility Administrator Relationship Specialty Start Date End Date Jamal Alvarez DO [address] [facility] [address] [place] [address] PCP - General Internal Medicine 12/25/23 Team [...] J une 2023 End: April 16, 2024 Emiele Perez , [facility]- Other Provider Active Sta rt: April [...] 2024 End: April 16, 2024 Adilene Navarro , PLEATING MACHINE OPERATOR Other Provider Active Start : April 16, 2024 End: April 16, 2024 Judit Lora MD Other Provider Active Start: J une 2023 End: April 16, 2024 Mireille Jorge MD Other Provider Active Start: April 16, 2024 End: April 16, 2024 Anthony Riddle MD Other Provider Active Start: J une 2023 End: April 16, 2024 Emilee Perez [facility] Other Provider Active Sta rt: April 16, 2024 End: April 16, 2024 Andry Nugent DO Other Provider Active Start: April 16, 2024 End: April 16, 2024 Inocencio Mg MD Attending Provider Activ e Start: April 16, 2024 End: April 16, 2024 Facility Administrator Relationship Specialty Start Date End Date Jamal Alvarez DO [address] [place] [address] PCP - General Internal Medicine 12/25/23 Facility Administrator Relationship Specialty Start Date End Date Jamal Alvarez DO [address] [place] [address] PCP - General Internal Medicine 12/25/23 Facility Administrator Relationship Specialty Start Date End Date Jamal Alvarez DO [address] [place] [address] PCP - General Internal Medicine 03/13/23 Saul Abdalla, DO [address] [place] [address] [address] [place] [address] Referring Physician Ophthalmology 02/22/24 Ubaldo Dubose MD [address] [place] [address] Referring Physician Pulmonary Disease 02/22/24 Valdez Castro MD [address] [facility] [address] [place] [address] Referring Physician Pediatric Pulmonology 02/22/24 Flex Ramos MD [address] [place] [id number] Referring Physician Gastroenterology 02/22/24 Judit Lora MD [facility] [facility] [address] [place] [address] Referring Physician Cardiology 02/22/24 Facility Administrator Relationship Specialty Start Date End Date Jamal Alvarez DO [address] [place] [address] PCP - General Internal Medicine 03/13/23 Saul Abdalla DO [address] [place] [address] Referring Physician Ophthalmology 02/22/24 Ubaldo Dubose MD [address] [place] [address] Referring Physician Pulmonary Disease 02/22/24 Valdez Castro MD [address] [facility] [address] [place] [address] Referring Physician Pediatric Pulmonology 02/22/24 Flex Ramos MD [address] [place] [phone] Referring Physician Gastroenterology 02/22/24 Judit Lora MD [address] [place] [address] [address] [place] [address] Referring Physician Cardiology 02/22/24 Facility Administrator Relationship Specialty Start Date End Date Jamal Alvarez DO [address] [facility] [address] [place] [address] PCP - General Internal Medicine 03/13/23 Saul Abdalla DO [address] [place] [address] Referring Physician Ophthalmology 02/22/24 Ubaldo Dubose MD [address] [place] [address] Referring Physician Pulmonary Disease 02/22/24 Valdez Castro MD [address] [facility] [address] [place] [address] Referring Physician Pediatric Pulmonology 02/22/24 Flex Ramos MD 703 [facility] [address] [place] [phone] Referring Physician Gastroenterology 02/22/24 Judit Lora MD [address] [facility] [address] [place] [address] Referring Physician Cardiology 02/22/24 Team Status: Inactive Member Role Status Dates Jamal Alvarez DO Primary Care Provider Active Start: November 20, 2024 End: November 20, 2024 Valdez Castro MD Attending Provider Active S tart: November 20, 2024 End: November 20, 2024 Facility Administrator Relationship Specialty Start Date End Date Jamal Alvarez DO [address] [facility] [address] [place] [address] PCP - General Internal Medicine 12/25/23 Facility Administrator Relationship Specialty Start Date End Date Jamal Alvarez DO [address] [facility] [address] [place] [address] PCP - General Internal Medicine 03/13/23 Saul Abdalla DO [address] [place] [address] [address] [place] [address] Referring Physician Ophthalmology 02/22/24 Ubaldo Dubose MD [address] [place] [address] Referring Physician Pulmonary Disease 02/22/24 Valdez Castro MD [address] [facility] [address] [place], [place] [id number] Referring Physician Pediatric Pulmonology 02/22/24 Flex Ramos MD 703 [facility] [address] [place] [phone] Referring Physician Gastroenterology 02/22/24 Judit Lora MD [address] [place] [address] [address], [address] [place] [address] Referring Physician Cardiology 02/22/24 Facility Administrator Relationship Specialty Start Date End Date Jamal Alvarez DO [address] [place] [address] PCP - General Internal Medicine 03/13/23 Saul Abdalla DO [address] [place] [address] [address] [place] [address] Referring Physician Ophthalmology 02/22/24 Ubaldo Dubose MD [address] [place] [address] Referring Physician Pulmonary Disease 02/22/24 Valdez Castro MD [address] [facility] [address] [place] [address] Referring Physician Pediatric Pulmonology 02/22/24 Flex Ramos MD [address] [phone] Referring Physician Gastroenterology 02/22/24 Judit Lora MD [address] [place] [address] 2, [address] [place] [address] Referring Physician Cardiology 02/22/24 Team Status: Inactive Member Role Status Dates Jamal Alvarez DO Primary Care Provide r, Attending Provider Active Start: February 06, 2025 End: February 06, 2025 Valdez Castro MD Other Provider Active Start : February 06, 2025 End: February 06, 2025 Facility Administrator Relationship Specialty Start Date End Date Jamal Alvarez DO [address] [place] [address] PCP - General Internal Medicine 03/13/23 Saul Abdalla DO [address] [place] [address] [address] [place] [address] Referring Physician Ophthalmology 02/22/24 Ubaldo Dubose MD [address] [place] [address] Referring Physician Pulmonary Disease 02/22/24 Valdez Castro MD [address] [facility] [address] [place] [address] Referring Physician Pediatric Pulmonology 02/22/24 Flex Ramos MD 703 [facility] [address] [place] [phone] Referring Physician Gastroenterology 02/22/24 Judit Lora MD [facility]03 [facility], [address] [place] [address] Referring Physician Cardiology 02/22/24 Facility Administrator Relationship Specialty Start Date End Date Jamal Alvarez DO [address] [place] [address] PCP - General Internal Medicine 03/13/23 Saul Abdalla, DO [address] [place] [address] Referring Physician Ophthalmology 02/22/24 Ubaldo Dubose MD [address] [place] [address] Referring Physician Pulmonary Disease 02/22/24 Valdez Castro MD [address] [place], [place] [id number] Referring Physician Pediatric Pulmonology 02/22/24 Flex Ramos MD [address] [place] [address] Referring Physician Gastroenterology 02/22/24 Judit Lora MD 703 [facility] 2, [address] [place], [place] [phone] Referring Physician Cardiology 02/22/24 Facility Administrator Relationship Specialty Start Date End Date Jamal Alvarez DO [address] [facility] [address] [place] [address] PCP - General Internal Medicine 03/13/23 Saul Abdalla DO [address] [place] [address] Referring Physician Ophthalmology 02/22/24 Ubaldo Dubose MD [address] [place] [address] Referring Physician Pulmonary Disease 02/22/24 Valdez Castro MD [address] [place] [address] Dr [address] [place] [address] Referring Physician Pediatric Pulmonology 02/22/24 Flex Ramos MD [address] [place] [address] Dr [address] [place] [address] Referring Physician Gastroenterology 02/22/24 Judit Lora MD 703 [facility] 2, [address] [place] [address] Referring Physician Cardiology 02/22/24 Team Status: Inactive Member Role Status Dates Jamal Alvarez DO Attending Provider Active St art: February 25, 2025 End: February 25, 2025 Facility Administrator Relationship Specialty Start Date End Date Jamal Alvarez DO [address] [facility] [address] [place] [address] PCP - General Internal Medicine 03/13/23 Saul Abdalla DO [address] [place] [address] [address] [place] [address] Referring Physician Ophthalmology 02/22/24 Ubaldo Dubose MD [address] [place] [address] Referring Physician Pulmonary Disease 02/22/24 Valdez Castro MD [address] [place] [address] Dr [address] [place] [address] Referring Physician Pediatric Pulmonology 02/22/24 Flex Ramos MD [address] [place] [address] [address] [place] [address] Referring Physician Gastroenterology 02/22/24 Judit Lora MD 703 [facility] [address], [address] [place] [address] Referring Physician Cardiology 02/22/24 Team Status: Active Member Role Status Dates Jamal Alvarez DO Primary Care Provider Active Start: March 14, 2025 Loraine Mccallum MD Emergency Provider Active Start: March 14, 2025 Matias Valdez DO Admit Provider, Attending Provider Active Start: March 14, 2025 Team Status: Inactive Member Role Status Dates Jamal Alvarez DO Primary Care Provider Active Start: March 14, 2025 End: March 15, 2025 Loraine Mccallum MD Emergency Provider Active Start: March 14, 2025 End: March 15, 2025 Matias Valdez DO Admit Provider Active Start: March 14, 2025 End: March 15, 2025 Renan Murguia MD Attending Provider Active St art: March 14, 2025 End: March 15, 2025 Team Status: Active Member Role Status Dates Jamal Alvarez DO Primary Care Provider Active Start: March 14, 2025 Loraine Mccallum MD Emergency Provider Active Start: March 14, 2025 Matias Valdez DO Admit Provider Active Start: March 14, 2025 Renan Murguia MD Other Provider Active Start: March 14, 2025 Praveena Garcia MD Attending Provider Active Sta rt: March 14, 2025 Facility Administrator Relationship Specialty Start Date End Date Jamal Alvarez DO [address] [facility] [address] [place] [address] PCP - General Internal Medicine 03/13/23 Saul Abdalla DO [address] [facility] [address] [place] [address] Referring Physician Ophthalmology 02/22/24 Ubaldo Dubose MD [address] [place] [address] Referring Physician Pulmonary Disease 02/22/24 Valdez Castro MD [address] [place], [place] [phone] Referring Physician Pediatric Pulmonology 02/22/24 Flex Ramos MD [address] [place] [address] [address] [place], [place] [phone] Referring Physician Gastroenterology 02/22/24 Judit Lora MD 703 [facility] 2, [address] [place] [address] Referring Physician Cardiology 02/22/24 Facility Administrator Relationship Specialty Start Date End Date Jamal Alvarez DO [address] [place] [address] PCP - General Internal Medicine 03/13/23 Saul Abdalla DO [address] [place] [address] Referring Physician Ophthalmology 02/22/24 Ubaldo Dubose MD [address] [place] [address] Referring Physician Pulmonary Disease 02/22/24 Valdez Castro MD [address] [place] [address] Dr [address] [place] [address] Referring Physician Pediatric Pulmonology 02/22/24 Flex Ramos MD [address] [place] [address] Dr [address] [place] [address] Referring Physician Gastroenterology 02/22/24 Judit Lora MD 703 [facility] 2, [address] [place] [address] Referring Physician Cardiology 02/22/24 Facility Administrator Relationship Specialty Start Date End Date Antonio Jamal CampbellDO [address] [place] [address] PCP - General Internal Medicine 03/13/23 Saul Abdalla DO [address] [place] [address] Referring Physician Ophthalmology 02/22/24 Ubaldo Dubose MD [address] [place] [address] Referring Physician Pulmonary Disease 02/22/24 Valdez Castro MD [address] [place], [place] [phone] Referring Physician Pediatric Pulmonology 02/22/24 Flex Ramos MD [address] [place], [place] [phone] Referring Physician Gastroenterology 02/22/24 Judit Lora MD 703 [facility] 2, [address] [place] [address] Referring Physician Cardiology 02/22/24 Reason for Visit (unrecogniz ed section and content) Reason Comments Spirometry Specialty Diagnoses / Procedures Referred By Contac t Referred To Contact [facility] Diagnoses ILD (interstitial lung disease) (HCC) Shortness of breath Procedures SPIROMETRY WITH DILATOR IF OBSTRUCTED BRNCDILAT RSPSE SPMTRY PRE&POST-BRNCDILAT ADMN Dee Leal APRN.ASPHALT SURFACE HEATER OPERATOR [address] [address] [facility] [place] [address] [place] [id number] Referral ID Status Reason Start Date Expiration Date V isits Requested Visits Authorized [id number] Closed Auto-Generate d Referral 12/11/2023 01/09/2025 1 1 Specialty Diagnoses / Procedures Referred By Contac t Referred To Contact [facility] Diagnoses ILD (interstitial lung disease) (HCC) Shortness of breath Procedures LUNG DIFFUSION CAPACITY (DLCO) DIFFUSING CAPACITY Dee Leal APRN.ASPHALT SURFACE HEATER OPERATOR [address] [address] Referral ID Status Reason Start Date Expiration Date V isits Requested Visits Authorized [id number] Closed Auto-Generate d Referral 12/11/2023 01/09/2025 1 1 Reason Comments New Reason Comments Received Outside Medical Records Reason Comments Home nebulizer order Reason Comments Appointment Reason Comments Follow Up Reason Comments Establish Care Sob, fatigue,weaknes s Specialty Diagnoses / Procedures Referred By Contac t Referred To Contact Diagnoses Shortness of breath Procedures ECG 12 Lead Judit Lora MD [address] [place] [address] [address] [place] [address] Referral ID Status Reason Start Date Expiration Date V isits Requested Visits Authorized [id number] Authorized 03/10/2024 03/10/2025 1 1 Reason Comments Future Appointment NEW PT, [place], ANY (STO JI? - PT PREF [place]) Specialty Diagnoses / Procedures Referred By Contac t Referred To Contact [facility] Diagnoses Bronchiectasis without complication (HCC) Procedures SPIROMETRY BASELINE ONLY SPMTRY W/VC EXPIRATORY MIRIAM W/WO MXML VOL VNTUbaldo Bentley MD [address] [place] [address] [facility] [place] [address] [place] [id number] Referral ID Status Reason Start Date Expiration Date V isits Requested Visits Authorized [id number] Closed Auto-Generate d Referral 12/28/2023 01/26/2025 1 1 Specialty Diagnoses / Procedures Referred By Contac t Referred To Contact [facility] Diagnoses Bronchiectasis without complication (HCC) Procedures LUNG DIFFUSION CAPACITY (DLCO) DIFFUSING CAPACITY Ubaldo Dubose MD [address] [place] [phone] [facility] [place] [address] [facility] [place] [phone] Referral ID Status Reason Start Date Expiration Date V isits Requested Visits Authorized [id number] Closed Auto-Generate d Referral 12/28/2023 01/26/2025 1 1 Reason Comments Cough Reason Comments Certifcate of Medical Necessity Reason Comments Radiology [place] Specialty Diagnoses / Procedures Referred By Contac t Referred To Contact CT IMAGING Diagnoses Interstitial pulmonary disease (HCC) Procedures CT CHEST WO IVCON DIAGNOSTIC COMPUTED TOMOGRAPHY THORAX W/O CNTRST Dee Leal, ROSELYN.ASPHALT SURFACE HEATER OPERATOR [address] [facility] [address] [place] [phone] [facility] [place] [address] Referral ID Status Reason Start Date Expiration Date V isits Requested Visits Authorized [id number] Closed Auto-Generate d Referral 12/11/2023 01/09/2025 1 1 Reason Comments Orders Reason Comments New Patient Epilepsy Reason Comments 6 mos ov rev lab Pt here for 6 month visit and review of labs. Reason Onset Date Comments Refill Request 08/30/2024 Reason Comments Missed VV Reason Comments Refill Request Reason Comments Follow Up Epilepsy Reason Comments Medication Question Reason Comments 6 month follow up Pt is being seen camille reese for her 6 month follow up and managment of her chronic conditions. Pt had lab work done in preparations for todays visit, results and recommendations will be reviewed with them. Reason Comments Hospital Follow-up Pt is being seen camille reese to follow up on her stay at [facility] for acute bronchiectasis exacerbation due to human metapneumovirus from 03/14-03/15. FOR RECORDS PERTAINING TO PATIENTS WHO ARE [...] BE BASED ON THE PRIMARY CLINICAL RECORDS. [facility] [facility]. provides no warranty or guarantee of the accuracy or completeness of information in this document.
--- NOTE | 2025-05-03 22:40 | ED.GENADUL1 ---
HPI HPI - General Adult General Chief complaint: Ear Stated complaint: sudden hearing loss Time Seen by Provider: 05/03/25 22:28 Source: patient Mode of arrival: walk-in Limitations: no limitations History of Present Illness HPI narrative: patient has no complaint. past TIA. She takes plavix but this has been on hold for 5 days because she is scheduled for EGD in the AM. Tonight family felt her hearing was worse and that she was not hearing well. They are concerned she had another TIA. Patient is awake and in no distress. She states she feels fine. No headache or nausea . No focal weakness. She has been outdoors in her yard. Family also concerned maybe she was exposed to too much heat. Patient denies feeling weak or ill past history of TBI and dementia per family Related Data Home Medications ?Medication ?Instructions ?Recorded ?Confirmed calcium phosphate,dibasic 77 1 tab PO DAILY 02/22/24 03/06/24 mg-vitamin D3 400 unit tablet clopidogrel 75 mg tablet 75 mg PO DAILY 02/22/24 03/06/24 ibandronate 150 mg tablet 150 mg PO .monthly 02/22/24 03/06/24 levothyroxine 50 mcg tablet 50 mcg PO DAILY 02/22/24 03/06/24 liothyronine 5 mcg tablet 5 mcg PO BID 02/22/24 03/06/24 omeprazole 40 mg capsule,delayed 40 mg PO DAILY 02/22/24 03/06/24 release oxybutynin chloride 5 mg 5 mg PO BEDTIME 02/22/24 03/06/24 tablet,extended release 24 hr simvastatin 20 mg tablet 20 mg PO DAILY 02/22/24 03/06/24 sodium chloride 3 % for 2 ml inhalation BID PRN secretions 02/23/24 03/06/24 nebulization Allergies Allergy/AdvReac Type Severity Reaction Status Date / Time codeine Allergy Unknown Unknown Verified 05/03/25 22:29 Penicillins Allergy Unknown Unknown Verified 05/03/25 22:29 Sulfa (Sulfonamide Allergy Unknown Verified 05/03/25 22:29 Antibiotics) acetaminophen (From AdvReac Unknown Unknown Verified 05/03/25 22:29 Darvocet-N) propoxyphene (From AdvReac Unknown Unknown Verified 05/03/25 22:29 Darvocet-N) Opioid HPI Opioid Management Most Recent Opioid Data: Last Pain Scale 0 02/23/24, 16:40 Last ORT Total Score 0 02/22/24, 22:05 Last ORT Risk Category Low Risk 02/22/24, 22:05 Review of Systems ROS Status of ROS 10 or more systems reviewed and unremarkable except as noted in history and below [facility] Medical History (Updated 05/04/25 @ 00:21 by Jameson Roca MD) Diabetes ?E11.9 - Type 2 diabetes mellitus without complications (ICD-10) High cholesterol ?E78.00 - Pure hypercholesterolemia, unspecified (ICD-10) Fracture, humerus ?S42.309A - Unspecified fracture of shaft of humerus, unspecified arm, initial encounter for closed fracture (ICD-10) Osteoporosis ?M81.0 - Age-related osteoporosis without current pathological fracture (ICD-10) GERD (gastroesophageal reflux disease) ?K21.9 - Gastro-esophageal reflux disease without esophagitis (ICD-10) 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 - Other specified mental disorders due to known physiological condition (ICD-10) ?S06.9X0S - Unspecified intracranial injury without loss of consciousness, sequela (ICD-10) Hypothyroidism (acquired) ?E03.9 - Hypothyroidism, unspecified (ICD-10) Surgical History (Updated 04/07/24 @ 11:03 by Lillian Ramirez) History of cataract extraction with lens replacement H/O: section ?Z98.891 - History of uterine scar from previous surgery (ICD-10) H/O tubal ligation ?Z98.51 - Tubal ligation status (ICD-10) Family History (Updated 03/03/24 @ 10:11 by Lillian Patel) Other Alzheimer disease Family history of diabetes mellitus Family history of myocardial infarction Family history of stroke Social History (Updated 03/03/24 @ 09:57 by Lillian Patel) Within the past year, how often did you have a drink containing alcohol: never Score interpretation: A score less than 3 is consistent with normal alcohol consumption. Smoking status: Former smoker Non-prescribed substance use: denies use Highest level of school completed/degree received: high school graduate Exam Constitutional Vital Signs, click to edit/add: Last Vital Signs Temp 98.2 F 05/03/25 22:25 Pulse 69 05/03/25 22:25 Resp 20 05/03/25 22:25 BP 142/95 H 05/03/25 22:25 Pulse Ox 95 05/03/25 22:25 O2 Del Method Room Air 05/03/25 22:25 Common normals: no apparent distress, average body habitus, healthy appearing, alert and well nourished [facility] Common normals: normocephalic and head/scalp atraumatic Other: TMs clear and canals clear Eye Common normals: EOMs intact bilaterally Respiratory Common normals: normal respiratory effort, no retractions, no use of accessory muscles and clear to auscultation bilaterally Cardio Common normals: regular rate, regular rhythm, S1 normal heart sound and S2 normal heart sound GI Common normals: Normal to inspection, nondistended, normoactive bowel sounds present and soft to palpation Extremity Common normals: normal to inspection and full ROM Neuro Common normals: CN's II-XII intact bilaterally, moves all extremities and no focal motor deficits Psych Appearance: grossly normal Course Vital Signs Vital signs: Vital Signs Temperature 98.2 F 05/03/25 22:25 Pulse Rate 69 05/03/25 22:25 Respiratory Rate 20 05/03/25 22:25 Blood Pressure 142/95 H 05/03/25 22:25 Pulse Oximetry 95 05/03/25 22:25 Oxygen Delivery Method Room Air 05/03/25 22:25 Temperature 98.2 F 05/03/25 22:25 Pulse Rate 69 05/03/25 22:25 Respiratory Rate 20 05/03/25 22:25 Blood Pressure 142/95 H 05/03/25 22:25 Pulse Oximetry 95 05/03/25 22:25 Oxygen Delivery Method Room Air 05/03/25 22:25 Medical Decision Making [facility] Narrative Medical decision making narrative: patient brought in by family for complaint of decreased hearing. Patient denies any problem with her hearing. She has past history of TBI and dementia. Exam unremarkable including normal TMs and canals. Past history of TIA and family concerned the decreased hearing may be TIA as she is currently off of Plavix for EGD tomorrow. Exam neg. Lab acceptable. CT brain with finding of no acute infarction but does demonstrate bilat mastoid effusions. Patient given dose of Keflex as augmentin not available in small capsule form. Discharged home with prescription for Augmentin 500 tid 10d Lab Data Labs: Lab Results 05/03/25 05/03/25 Range/Units 22:47 23:08 WBC 6.9 (4.0-11.0) 10^3/uL RBC 4.27 (4.20-5.40) 10^6/uL Hgb 12.7 (12.0-16.0) g/dL Hct 39.8 (36.0-48.0) % MCV 93.2 (81.0-99.0) fL MCH 29.7 (26.7-34.0) pg MCHC 31.9 (29.9-35.2) g/dL RDW 13.1 (11.0-15.0) % Plt Count 250 (150-450) 10^3/uL MPV 10.0 (9.5-13.5) fL Neut % (Auto) 55.7 (43.0-75.0) % Lymph % (Auto) 31.3 (20.5-60.0) % [place] % (Auto) 7.4 (1.7-12.0) % Eos % (Auto) 4.5 (0.9-7.0) % Baso % (Auto) 1.0 (0.2-2.0) % Neut # (Auto) 3.8 (1.4-6.5) 10^3/uL Lymph # (Auto) 2.2 (1.2-3.8) 10^3/uL [place] # (Auto) 0.5 (0.3-0.8) 10^3/uL Eos # (Auto) 0.3 (0.0-0.7) 10^3/uL Baso # (Auto) 0.1 (0.0-0.1) 10^3/uL Abs Immat Gran (auto) 0.01 (0.00-0.03) 10^3/uL Imm/Tot Granulo (auto) 0.1 (0.0-0.5) % Sodium 142 (136-145) mmol/L Potassium 3.9 (3.5-5.1) mmol/L Chloride 103 (98-107) mmol/L Carbon Dioxide 33.3 H (21.0-32.0) mmol/L Anion Gap 9.6 BUN 20.0 H (7.0-18.0) mg/dL Creatinine 0.72 (0.55-1.02) mg/dL Est GFR ( Amer) >60 (>=60 mL/min/1.73m^2) Est GFR (Non-Af Amer) >60 (>=60 mL/min/1.73m^2) BUN/Creatinine Ratio 27.8 Glucose 143 H (74-106) mg/dL Calcium 9.8 (8.5-10.1) mg/dL Urine Color Yellow (YELLOW) Urine Clarity Sl cloudy (CLEAR) Urine pH 6.5 (5.0-9.0) Ur Specific [place] 1.020 (1.005-1.025) Urine Protein Negative (NEG/TRACE) mg/dL Urine Glucose (UA) Negative (NEGATIVE) mg/dL Urine Ketones Negative (NEGATIVE) mg/dL Urine Occult Blood Negative (NEGATIVE) Urine Nitrite Negative (NEGATIVE) Urine Bilirubin Negative (NEGATIVE) Urine Urobilinogen 0.2 (0.2-1.0) EU/dL Ur Leukocyte Esterase Negative (NEGATIVE) Urine RBC None seen (0-2) #/HPF Urine WBC 0-2 A (NONE SEEN) #/HPF Ur Squamous Epith Cells Few A (NONE/RARE) #/LPF Urine Crystals Seen A (None Seen) #/HPF Amorphous Sediment Moderate Urine Bacteria Trace A (NONE SEEN) #/HPF Urine Casts None seen (NONE SEEN) #/LPF Urine Mucus None seen (NONE SEEN) Ur Culture Indicated? No Discharge Plan Discharge Chief Complaint: Ear Clinical Impression: Acute mastoiditis of both sides Patient Disposition: Home, Self-Care Prescriptions / Home Meds: No Action clopidogrel 75 mg tablet 75 mg PO DAILY ibandronate 150 mg tablet 150 mg PO .monthly levothyroxine 50 mcg tablet 50 mcg PO DAILY Patient Comments: pt takes it everyday EXCEPT Sunday liothyronine 5 mcg tablet 5 mcg PO BID oxybutynin chloride 5 mg tablet extended release 24hr 5 mg PO BEDTIME simvastatin 20 mg tablet 20 mg PO DAILY omeprazole 40 mg capsule,delayed release(DR/EC) 40 mg PO DAILY calcium phos,dibas-vitamin D3 77-400 mg-unit tablet 1 tab PO DAILY sodium chloride 3 % solution for nebulization 2 ml INHALATION BID PRN (Reason: secretions) Print Language: Northern Irish Instructions: Mastoiditis (ED) Additional Instructions: follow up with your doctor in 2-3 days Referrals: IMER ALVAREZ [Primary Care Provider, [facility]] - 1 week
[2025-05-03 22:56] LABS: Basophils Absolute Auto 0.1 10^3/uL (0.0-0.1); Eosinophils Absolute Auto 0.3 10^3/uL (0.0-0.7); Eosinophils Percent Auto 4.5 % (0.9-7.0); Hematocrit 39.8 % (36.0-48.0); Hemoglobin 12.7 g/dL (12.0-16.0); Immature Granulocytes Abs Auto 0.01 10^3/uL (0.00-0.03); Immature Granulocytes Pct Auto 0.1 % (0.0-0.5); Lymphocytes Absolute Auto 2.2 10^3/uL (1.2-3.8); Lymphocytes Percent Auto 31.3 % (20.5-60.0); Mean Corpuscular HGB Conc 31.9 g/dL (29.9-35.2); Mean Corpuscular Hemoglobin 29.7 pg (26.7-34.0); Mean Corpuscular Volume 93.2 fL (81.0-99.0); Monocytes Absolute Auto 0.5 10^3/uL (0.3-0.8); Monocytes Percent Auto 7.4 % (1.7-12.0); Neutrophils Absolute Auto 3.8 10^3/uL (1.4-6.5); Neutrophils Percent Auto 55.7 % (43.0-75.0); Platelet Count 250 10^3/uL (150-450); Red Blood Count 4.27 10^6/uL (4.20-5.40); Red Cell Distribution Width 13.1 % (11.0-15.0); White Blood Count 6.9 10^3/uL (4.0-11.0)
[2025-05-03 23:07] LABS: Anion Gap 9.6; BUN Creatinine Ratio 27.8; Calcium 9.8 mg/dL (8.5-10.1); Carbon Dioxide 33.3 mmol/L (21.0-32.0); Chloride 103 mmol/L (98-107); Estimated GFR (African America >60 (>=60 mL/min/1.73m^2); Estimated GFR (Non-African Ame >60 (>=60 mL/min/1.73m^2); Glucose 143 mg/dL (74-106); Potassium 3.9 mmol/L (3.5-5.1); Sodium 142 mmol/L (136-145)
[2025-05-03 23:17] LABS: Bilirubin Urine NEGATIVE (NEGATIVE); Blood Urine NEGATIVE (NEGATIVE); Clarity Urine SL CLOUDY (CLEAR); Color Urine YELLOW (YELLOW); Glucose Urine UA NEGATIVE (NEGATIVE); Ketones Urine NEGATIVE (NEGATIVE); Leukocyte Esterase Urine NEGATIVE (NEGATIVE); Nitrite Urine NEGATIVE (NEGATIVE); Protein Urine NEGATIVE (NEG/TRACE); Urobilinogen Urine 0.2 EU/dL (0.2-1.0); pH Urine 6.5 (5.0-9.0)
[2025-05-03 23:41] LABS: Amorphous Sediment Urine MODERATE; Bacteria Urine TRACE #/HPF (NONE SEEN); Cast Seen? NONE SEEN #/LPF (NONE SEEN); Crystals Seen? Seen #/HPF (None Seen); Mucus Urine NONE SEEN (NONE SEEN); RBC Urine NONE SEEN #/HPF (0-2); Squamous Epithelial Cell Urine FEW #/LPF (NONE/RARE); Urine Culture Indicated NO; WBC Urine 0-2 #/HPF (NONE SEEN)
[2025-05-04] MEDS: CEPHALEXIN 500 MG CAPSULE PO (00:25)
== END 2025-05-04 00:30 | disposition home or self-care (01) ==
PROVIDERS: Emergency Provider Internal Medicine; PCP Internal Medicine
DX: H70.003 Acute mastoiditis without complications, bilateral (principal); Z86.73 Personal history of transient ischemic attack (TIA), and cerebral infarction without residual deficits; Z79.02 Long term (current) use of antithrombotics/antiplatelets; F03.90 Unspecified dementia, unspecified severity, without behavioral disturbance, psychotic disturbance, mood disturbance, and anxiety; Z87.820 Personal history of traumatic brain injury; Z98.51 Tubal ligation status; Z87.891 Personal history of nicotine dependence
CPT/HCPCS: 36415; 70450; 80048; 81001; 85025; 99285

== ENCOUNTER 2025-07-16 21:56 | Emergency (ER) | payer MEDICARE, SELFPAY ==
[2025-07-16 21:59] VITALS: BP 123/70; PULSE 71; TEMP 36.8; O2SAT 98; BMI 32.3
--- OUTSIDE RECORDS SUMMARY | 2025-07-16 22:04 | XMS_ITS | CCD ---
Author Organization [facility] Care Team Providers Care Camper Assembler Name Role Phone Jamal Alvarez Unavailable Unavailable Unavailable Kostas Vance DO Primary Care Provider Kostas Vance DO Primary Care Provider DO Jamal Alvarez Primary Care Provider [phone] DO Hermes Kennedy Attending Provider [phone] DIAB ., BRUCE Admitting Unavailable MACK ., BRUCE Attending Unavailable DR JAMAL ALVAREZ Primary Care Unavailable DIAB ., BRUCE Consulting Unavailable ANTONIO, DR WILLAMS Admitting Unavailable ANTONIO, DR WILLAMS Attending Unavailable QUINTIN LEROY Primary Care Unavail able DR JEANETH ECHOLS V Consulting Unavailable ANTONIO, DR WILLAMS Consulting Unavailable ANTONIO, DR WILLAMS Admitting Unavailable DR JAMAL ALVAREZ Attending Unavailable QUINTIN LEROY Primary Care Unavail able DR JAMAL ALVAREZ Consulting Unavailable DO Jamal Alvarez Primary Care Provider [phone] MD Valdez Castro Attending Provider DO Jamal Alvarez Attending Provider [phone] Jamal Alvarez DO Primary Care Provider DO Jamal Alvarez Primary Care Provider DO Jamal Alvarez Attending Provider CORNELIUS Pearce Attending Provider DO Jamal Alvarez Primary Care Provider DO Jamal Alvarez Attending Provider TEAGAN Lockhart Attending Provider Jamal Alvarez DO Primary Care Provider Jamal Alvarez DO Primary Care Provider MD Ciro Navarro Emergency Provider DO Albert Palacio Admit Provider DO Albert Palacio Attending Provider MD Renan Murguia Attending Provider TEAGAN Freeman Other Provider Unavailable DO Vic Hess Other Provider MD Gilbert Cruz Other Provider MD Malik Luu Other Provider MD Sukhwinder Luu Other Provider MD Oleg Milton Other Provider ROSELYN Navarro Other Provider MD Judit Lora Other Provider MD Joe Jorgeammwoodrow Ricci Other Provider MD Anthony Riddle Other Provider Chris [facility] Emilee Tineo Other Provider DO Andry Nugent Other Provider MD Flex Ramos Attending Provider DO Jamal Alvarez Primary Care Provider DO Jamal Alvarez Attending Provider MD Valdez Castro Attending Provider Jamal Alvarez DO Primary Care Provider [phone] Saul Abdalla DO Unavailable Ubaldo Dubose MD Unavailable [phone] Valdez Castro MD Unavailable Flex Ramos MD Unavailable Judit Lora MD Unavailable Jamal Alvarez DO Primary Care Provider [phone] Valdez Castro MD Attending Provider JUDIT LORA Attending Unavailable JAMAL ALVAREZ Primary Care Unavailable JUDIT LORA Attending Unavailable JUDIT LORA Referring Unavailable JAMAL ALVAREZ Primary Care Unavailable Judit Lora MD Unavailable Jamal Alvarez DO Primary Care Provider Valdez Castro MD Attending Provider Jamal Alvarez DO Attending Provider [phone] Valdez Castro MD Other Provider Rachel IVY, Imad Unavailable Jamal Alvarez DO Primary Care Provider Loraine Mccallum MD Emergency Provider [phone] Matias Valdez DO Admit Provider [phone] Matias Valdez DO Attending Provider [phone] Renan Murguia MD Attending Provider Renan Murguia MD Other Provider [phone] Praveena Garcia MD Attending Provider [phone] Rachel IVY, Imroni Attending Provider [phone] Rachel IVY, Imroni Other Provider Jamal Alvarez DO Attending Provider Jamal Alvarez DO Primary Care Provider [phone] Vimal Burton MD Primary Care Provider Jamal Alvarez DO Attending Provider [phone] Jamal Alvarez Primary Care Unavailable Asaad, Imad Admitting Unavailable Asaad, Imad Attending Unavailable Matias Valdez Admitting Unavailable Renan Murguia Attending Unavailable Jamal Alvarez Primary Care Unavailable Asaad, Imad Admitting Unavailable Asaad, Imad Attending Unavailable Jamal Alvarez Primary Care Unavailable Jamal Alvarez Admitting Unavailable Jamal Alvarez Attending Unavailable Jamal Alvarez Admitting Unavailable Jamal Alvarez Primary Care Unavailable Jamal Alvarez Attending Unavailable Jamal Alvarez Attending Unavailable Moarmando, Valdez F Consulting Unavailable Jamal Alvarez Admitting Unavailable Jamal Alvarez Primary Care Unavailable Moosa, Valdez F Admitting Unavailable Moosa, Valdez F Attending Unavailable Jamal Alvarez Primary Care Unavailable Jamal Alvarez DO Primary Care Provider Vimal Burton MD Primary Care Provider [phone] Richy ANIMATED CARTOONS PAINTERJose Luis John Unavailable JAMAL ALVAREZ Attending Unavailable JAMAL ALVAREZ Attending Unavailable JAMAL ALVAREZ Referring Unavailable PATRICIA BARRY Attending Unavailable DEE JACKSON Attending Unavailable JAMAL ALVAREZ Referring Unavailable JOSE LUIS LOCKHART Attending Unavailable JOSE LUIS LOCKHART Referring Unavailable RICHYJOSE LUIS SANDY Attending Unavailable RICHYJOSE LUIS SANDY Referring Unavailable Richy Jose Luis DEMPSEY Unavailable JAMAL ALVAREZ Primary Care UnavailKWAKU HoffmanI Attending Unavailable JAMAL ALVAREZ Primary Care UnavailQUINTIN Aguilar Attending Unavailable SELF Referring Unavailable JAMAL ALVAREZ Primary Care UnavailLISA Nielsen Attending Unavailable JAMAL ALVAREZ Primary Care UnavailLISA Nielsen Attending Unavailable VIMAL BURTON Primary [facility] Unavailable KWAKU AGUILARI Referring Unavailable VIMAL BURTON Primary Care Unavailable HUMBLE SIMEON Attending Unavailable ANASTASIA KRAUS Attending Unavailable VIMAL BURTON Primary [facility] Unavailable SELF Referring Unavailable VIMAL BURTON Primary Care Unavailable LISA WILLIAM Attending Unavailable Allergies Allergy Classification Reported Allergen(s) Allergy Type Date of Onset Reaction(s) Facility Benzodiazepines (2 sources) Midazolam Drug Allergy 01-10-20 Mental Status Change [facility] Berries (1 source) [place] Food Allergy 06-29-20 Rash [facility] Latex (1 source) Latex Substance Allergy 06-29-20 [facility] Opioid Agonists (2 sources) Codeine Drug Allergy 08-21-20 Other: See Comments [facility] Penicillins (antibiotic) (1 source) Penicillins Drug Allergy 06-29-20 [facility] strawberry allergenic extract (1 source) strawberry allergenic extract Drug Allergy 04-13-20 Nausea [facility] Sulfonamides (antibiotic) (2 sources) Sulfonamides (Antibiotic) Drug Allergy 06-29-20 09 [facility] (20 sources) Codeine; Translations: [codeine] Drug Allergy 12-26-19 Unknown Reaction [facility] (6 sources) Penicillins; Translations: [Penicillins] Allergy to drug (finding) 06-29-20 [place] [id number] Repository (20 sources) Propoxyphene; Translations: [propoxyphene] Drug Allergy 08-21-20 Other: See Comments [facility] (3 sources) Sulfamethoxazole; Translations: [sulfa] Drug Allergy [facility] [place] [address] DO Work Phone: (20 sources) Latex; Translations: [LATEX] Propensity to adverse reactions 06-29-20 [facility] (1 source) Penicillins Propensity to adverse reactions 06-29-20 09 [facility] (20 sources) [place]; Translations: [STRAWBERRIES] Propensity to adverse reactions 06-29-20 09 [facility] (20 sources) Sulfonamides (Antibiotic); Translations: [SULFA (SULFONAMIDE ANTIBIOTICS)] Propensity to adverse reactions 06-29-20 09 [facility] (20 sources) Propoxyphene N-Acetaminophen; Translations: [PROPOXYPHENE N-ACETAMINOPHEN] Drug Allergy 06-29-20 [facility] (20 sources) Penicillins Propensity to adverse reactions 06-29-20 09 [facility] (20 sources) strawberry allergenic extract Drug Allergy 12-26-19 Nausea [facility] (1 source) Penicillins Drug allergy (disorder) [facility] Repository (1 source) Sulfonamides (Antibiotic) Drug allergy (disorder) [facility] Repository (20 sources) Midazolam; Translations: [MIDAZOLAM] Drug Allergy 01-10-20 Mental Status Change, Hallucinations [facility] (20 sources) opiates Propensity to adverse reactions 01-10-20 Confusion [facility] (20 sources) Morphinan opioid; Translations: [OPIOIDS - MORPHINE ANALOGUES] Drug Allergy 12-26-19 Mental Status Change, Unknown, Hallucinations [facility] (20 sources) Latex Propensity to adverse reactions 06-29-20 Rash [facility] (20 sources) Penicillins Drug Allergy 06-29-20 Rash [facility] (20 sources) Other Allergy to substance 08-21-20 Rash [facility] (11 sources) Penicillins Propensity to adverse reactions 06-29-20 Rash [facility] (3 sources) diphenhydrAMINE Drug Allergy 04-17-20 Unresponsive [facility] (3 sources) Metoclopramide Drug Allergy 04-17-20 Agitated [facility] Medications Current Medications Medication Drug Class(es) Dates Sig (Normalized) Sig (Original) [id number] 200 actuat albuterol 0.09 mg/actuat metered dose inhaler (20 sources) beta2-Adrenergic Agonist Start: 04-30-2025 take 2 puff(s) by inhalation every four hours as needed albuterol HFA (PROVENTIL HFA, VENTOLIN HFA) 90 mcg/actuation inhaler Inhale 2 puffs as instructed every 4 hours as needed. 04/30/2025 Active Start: 04-30-2025 take 2 puff(s) by in halation every four hours for wheezing albuterol HFA 90 mcg/act inhaler Indications: Pulmonary fibrosis (HCC) Inhale 2 puffs every 4 (four) hours if needed for wheezing or shortness of breath 18 g 3 04/30/2025 Active Start: 03-17-2025 take 2 puff(s) by mo uth every four hours as needed albuterol HFA [...] oral tablet (20 sources) Macrolide Antimicrobial Start: 06-01-20 take 1 tablet by mouth once azithromycin (ZITHROMAX) 250 mg tablet Indications: Bronchiectasis without complication (HCC) Take 1 tablet by mouth every Sunday, Sunday, and Sunday. 30 tablet 1 06/01/2025 Active Start: 06-01-2025 take 1 tablet by marilyn th every other day azithromycin (Zithromax) 250 MG tablet Take 250 mg by mouth every other day Sunday, Sunday, Sunday06/01/2025 Active Start: 05-05-2024 End: 05-29-2025 take 1 tablet by mouth once azithromycin (ZITHROMAX) 2 50 mg tablet Indications: Bronchiectasis without complication (HCC) Take 1 tablet by mouth every Sunday, Sunday, and Sunday. 30 tablet 1 12/12/2024 05/29/2025 Discontinued brexpiprazole 0.25 mg oral tablet (2 sources) Atypical Antipsychotic Start: 06-25-2025 take 2 tablets by mouth once daily Brexpiprazole (Rexulti) 0.25 MG tablet Indications: Agitation Take 0.5 mg by mouth Daily 20 tablet 06/25/2025 Active Calcium (20 sources) Phosphate Binder, Calcium Start: 06-29-2009 CALCIUM 500 MG TAB Take one(1) tablet twice daily. 0 06/29/2009 Active Comment on above: Take one(1) tablet t wice daily. cannabidiol 100 mg/ml oral solution (20 sources) Start: 09-18-2025 cannabidiol (EPIDIOLEX) 100 mg/mL oral liquid 2 ml by mouth two times daily Patient should start on September 18, 2025. 360 mL 1 09/18/2025 Active Start: 09-18-2025 cannabidiol (E PIDIOLEX) 100 mg/mL oral liquid 2 ml by mouth two times daily Patient should start on September 18, 2025. 360 mL 1 09/18/2025 Active Start: 09-18-2025 cannabidiol (E PIDIOLEX) 100 mg/mL oral liquid 2 ml by mouth two times daily Patient should start on September 18, 2025. 360 mL 1 09/18/2025 Active Start: 09-18-2025 cannabidiol (E PIDIOLEX) 100 mg/mL oral liquid 2 ml by mouth two times daily Patient should start on September 18, 2025. 360 mL 1 09/18/2025 Active Start: 09-18-2025 cannabidiol (E PIDIOLEX) 100 mg/mL oral liquid 2 ml by mouth two times daily Patient should start on September 18, 2025. 360 mL 1 09/18/2025 Active Start: 12-24-2024 End: 09-20-2025 take 2 mL by mouth twice daily Epidiolex 100 MG/ML rasheed ution Take 2 mL by mouth two times a day. 01/16/2025 Active cholecalciferol 0.05 mg oral capsule (20 sources) Vitamin D Start: 10-17-2021 Cholecalcifero l, Vitamin D3, 50 mcg (2,000 unit) cap Daily 10/17/2021 Active Comment on above: Daily clopidogrel 75 mg oral tablet (20 sources) [id number] Platelet Inhibitor Start: 06-29-2009 clopidogrel bisulfate(PLAVIX 75 MG TAB) Take one(1) tablet daily. 0 06/29/2009 Active Comment on above: Take one(1) tablet d aily. estradiol 0.1 mg/ml vaginal cream (20 sources) Estrogen Start: 09-01-2024 estradiol (Est race) 0.1 MG/GM vaginal cream Indications: Atrophic vaginitis [...] Ordered: 17-Jul-2021 DO Start : 17-Jul-2021 Active fluticasone propionate 0.05 mg/actuat metered dose nasal spray (15 sources) Corticosteroid Start: 05-20-2025 End: 05-20-2026 take 2 spray(s) nasal route twice daily fluticasone (FLONASE) 50 mcg/actuation nasal spray Use 2 sprays in each nostril two times a day. 05/20/2025 05/20/2026 Active Start: 05-20-2025 End: 05-20-2026 take 2 spray(s) nasal route once daily fluticasone (Flonase) 50 MCG/ACT nasal spray Indications: OME (otitis media with effusion), right Administer 2 sprays into each nostril Daily Shake gently. Before first use, prime pump. After use, clean tip and replace cap. 48 g 3 05/20/2025 05/20/2026 Active Start: 05-20-2025 fluticasone (F lonase) 50 MCG/ACT nasal spray Indications: OME (otitis media with effusion), right 2 sprays on the right side 2 times daily. Shake gently. Before first use, prime pump. After use, clean tip and replace cap. 48 g 3 05/20/2025 Active furosemide 20 mg oral tablet (20 sources) Loop Diuretic Start: 03-10-2024 End: 03-05-2025 take 10 mg by mouth once daily furosemide (LASIX) 20 mg tablet Take 10 mg by mouth once daily. 03/10/2024 Active Start: 03-10-2024 End: 03-10-2025 take 0.5 tablet by mouth once daily furosemide (Lasix) 20 MG tablet Indications: Edema, unspecified type Take 0.5 tablets (10 mg) by mouth Daily 90 tablet 1 03/05/2025 Active ibandronic acid 150 mg oral tablet [...] th. liothyronine sodium 0.005 mg oral tablet (20 sources) l-Triiodothyroni ne Start: 10-25-2023 take 1 tablet by mouth every twelve hours liothyronine (CYTOMEL) 5 mcg tablet Take 1 tablet by mouth every 12 hours. 10/25/2023 Active Start: 12-26-2022 take 1 tablet by marilyn th once daily in the morning Start: 12-26-2022 take 1 tablet by marilyn th twice daily Liothyronine 5 mcg tablet Active 5 MCG PO Twice daily December 26, 2022 1:00am Comment on above: Take 1 tablet by marilyn th every 12 hours. loperamide hydrochloride 2 mg oral capsule (20 sources) Opioid Agonist Start: 10-17-2021 End: 03-03-2024 take 1 capsule by mouth once daily in the morning as needed LOPERAMIDE HCL P O Daily as needed Active LOPERAMIDE HCL P O Daily as needed. Active Comment on above: Every morning MULTIVITAMIN TAB (20 sources) Start: 06-29-2009 MULTIVITAMIN TAB Take one(1) tablet daily. 0 06/29/2009 Active Comment on above: Take one(1) tablet d aily. Nebulizer and Compressor For Neb (2 sources) Start: 02-15-2024 End: 02-16-2024 Nebulizer and Compressor For Neb 1 Each as needed for up to 1 day. Use as directed. 1 Each 0 02/15/2024 02/16/2024 Active Comment on above: 1 Each as needed for up to 1 day. Use as directed. nitrofurantoin, macrocrystals 25 mg / nitrofurantoin, monohydrate 75 mg oral capsule (20 sources) Nitrofuran Antibacterial Start: 04-21-2025 nitrofurantoin monohydrate and macrocrystal (MACROBID) 100 mg capsule Take 100 mg by mouth every 48 hours. 04/21/2025 Active Start: 03-14-2025 End: 05-27-2025 take 1 capsule by mouth every other day as needed nitrofurantoin, macrocrystal-monohydrate , (Macrobid) 100 MG capsule Indications: Urinary tract infection without hematuria, site unspecified Take 1 capsule (100 mg) by mouth every other day And PRN as needed 60 capsule 3 04/21/2025 Active Start: 04-22-2024 End: 03-05-2025 take 1 capsule by mouth every other day nitrofurantoin, macrocrystal-monohydrate , (Macrobid) 100 MG capsule Indications: Recurrent UTI Take 1 capsule (100 mg) by mouth every other day 90 capsule 1 03/05/2025 Active omeprazole 40 mg delayed release oral capsule (20 sources) Proton Pump Inhibitor Start: 08-09-2021 End: 04-02-2026 omeprazole (PRILOSEC) 40 mg capsule Take 40 mg by mouth. 08/09/2021 04/02/2026 Active Comment on above: Take by mouth at bed time as needed. 24 hr oxybutynin chloride 5 mg extended release oral tablet (20 sources) Cholinergic Muscarinic Antagonist Start: 04-02-2025 take 1 tablet by mouth every twenty-four [...] AT BEDTIME 30 tablet 05/15/2024 Active Start: 11-05-2023 take 1 tablet by mouth once da emerson oxybutynin XL (DITROPAN XL) 5 mg 24 hr tablet Take 5 mg by mouth once daily. 11/05/2023 Active Start: 10-17-2021 End: 02-22-2024 take 1 tablet [...] Take one(1) tablet t wo(2) times daily. OZEMPIC 1 mg/dose (4 mg/3 mL) pen (6 sources) inject 1 mg by subcutaneous injection every week OZEMPIC 1 mg/dose (4 mg/3 mL) pen Inject 1 mg subcutaneously one time a week. Active Semaglutide (3 sources) Start: 04-17-20 inject 1 mg by subcutaneous injection every week Start: 04-17-2025 inject 1 mg by subcu taneous injection every week Semaglutide (Ozempic) 1 mg/dose (4 mg/3 mL) pen injector Active 1 MG SUBCUT every week April 17, 2025 12:00am Complies with drug therapy semaglutide (Ozempic) 4 MG/3ML solution pen-injector (4 sources) Start: 04-22-2024 inject 1 mg by subcutaneous injection every week semaglutide (Ozempic) 4 MG/3ML solution pen-injector Indications: Type 2 diabetes mellitus with other specified complication, without long-term current use of insulin ([facility]) Inject 1 mg under the skin 1 (one) time per week 3 mL 5 04/22/2024 Active semaglutide (Ozempic, 1 MG/DOSE,) 4 MG/3ML solution pen-injector (20 sources) Start: 09-26-2024 inject 1 mg by subcutaneous injection every week semaglutide (Ozempic, 1 MG/DOSE,) 4 MG/3ML solution pen-injector Indications: Type 2 diabetes mellitus with other specified complication, without long-term current use of insulin (HCC) INJECT 1 MG SUBCUTANEOUSLY ONCE A WEEK 9 mL 3 09/26/2024 Active Start: 09-26-2024 inject 1 mg by subcu taneous injection every week semaglutide (Ozempic, 1 MG/DOSE,) 4 MG/3ML solution pen-injector Indications: Type 2 diabetes mellitus with other specified complication, without long-term current use of insulin INJECT 1 MG SUBCUTANEOUSLY ONCE A WEEK 9 mL 3 09/26/2024 Active simvastatin 20 mg oral tablet (20 sources) HMG-CoA Reductase Inhibitor Start: 05-15-2024 End: 08-25-2024 take 1 tablet by mouth at bedtime simvastatin (Zocor) 20 MG tablet Indications: Mixed hyperlipidemia Take 1 tablet (20 mg) by [...] hydrochloride 150 mg extended release oral tablet (13 sources) Aminoketone Start: 04-13-2024 End: 03-14-2025 take 1 tablet by mouth once daily Bupropion Hcl (Wellbutrin Xl) 150 mg tablet extended release 24 hr Discontinued 150 MG PO Daily April 13, 2024 12:00am March 14, 2025 1:41am calcium carbonate 1250 mg / cholecalciferol 125 unt oral tablet (20 sources) Vitamin D Start: 10-17-2021 End: 01-09-2023 [...] Three times daily April 13, 2024 12:00am carboxymethylcellulose sodium 5 mg/ml / glycerin 9 mg/ml ophthalmic solution (3 sources) Non-Standardized Chemical Allergen Start: 04-13-2024 End: 03-14-2025 Carboxymethylcell-Glycerin(P f) (Refresh Relieva Pf) 0.5-1 % dropperette Discontinued 1 DROPS EYE-BOTH Three times daily April 13, 2024 12:00am March 14, 2025 1:42am cefpodoxime 200 mg oral tablet (4 sources) Cephalosporin Antibacterial Start: 03-15-2025 End: 04-17-2025 jay e 1 tab let by [facility] lylai ce johnny ly at [facility] Cefpodoxime 200 mg tablet Discontinued 200 MG PO Twice daily 10 March 15, 2025 12:00am April 17, 2025 12:04pm must administer with a meal/food; start 03/16/25 evening cephalexin 500 mg oral capsule (20 sources) Cephalosporin Antibacterial Start: 10-25-2021 End: 12-26-2022 jay e 1 cap sul e by [facility] twi ce johnny ly Cephalexin 500 mg capsule Discontinued 500 MG PO Twice daily 14 October 25, 2021 1:00am December 26, 2022 3:00pm cetirizine hydrochloride 10 mg oral tablet (6 sources) Histamine-1 Receptor Antagonist End: 05-27-2025 cetirizine (ZyrTEC) 10 MG tablet Take by mouth 05/27/2025 Discontinued desmopressin acetate 0.2 mg oral tablet (15 sources) Vasopressin Analog, Factor VIII Activator Start: 02-21-2024 End: 04-13-2024 jay e 1 tab let by [facility] onc e johnny ly at bed roger e Desmopressin 0.2 mg tablet Discontinued 0.2 MG [...] capsule (7 sources) Start: 06-29-20 End: 12-28-19 docusate sodium(COLACE [...] aily. fexofenadine hydrochloride 180 mg oral tablet (20 sources) Histamine-1 Receptor Antagonist Start: 10-17-20 End: [...] Active ketorolac tromethamine 5 mg/ml ophthalmic solution (18 sources) Nonsteroidal Anti-inflammatory Drug, Cyclooxygenase Inhibitor Start: 04-13-2024 End: 08-25-2024 ketorolac (Acular) 0.5 % ophthalmic solution Three times daily 04/13/2024 08/25/2024 Discontinued (Therapy completed) Start: 04-13-2024 End: 03-14-2025 take 1 drop(s) into the eye(s) three times daily Ketorolac 0.5 % drops Discontinued 1 DROPS EYE-RIGHT Three times daily April 13, 2024 12:00am March 14, 2025 1:42am Start: 04-13-2024 End: 03-14-2025 take 1 drop(s) [...] 03/14/2024 Active lamoTRIgine 25 mg oral tablet (20 sources) Mood Stabilizer, Anti-epileptic Agent Start: 08-13-2024 End: 06-24-2025 lamoTRIgine (LAMICTAL) 25 mg tablet take 1 qhs for 2 weeks, then 1 pill bid for two weeks, then 1 pill in AM, 2pill in PM for week, then 2 pills bid for 1 week, then 2 pill in AM, 3 pill in PM for week, then 3 pills bid and stay at that dose. 180 tablet 2 08/13/2024 06/24/2025 Discontinued levETIRAcetam 250 mg oral tablet (12 sources) Start: 04-16-2024 End: 03-14-2025 take 1 [...] 12:00am December 26, 2022 2:02pm Multivitamin Tablet (8 sources) Start: 10-17-2021 End: 12-26-2022 take 1 tablet by mouth once daily Multivitamin Tablet Discontinued 1 TAB PO Daily October 17, 2021 1:00am December 26, 2022 3:02pm Start: 10-17-2021 End: 12-26-2022 take 1 tablet by mouth once daily Multivitamin Tablet Discontinued 1 TAB PO Daily October 17, 2021 12:00am December 26, 2022 2:02pm ofloxacin 3 mg/ml ophthalmic solution (18 sources) Quinolone Antimicrobial Start: 04-13-2024 End: 03-14-2025 take 0.3 drop(s) into the eye(s) twice daily Ofloxacin 0.3 % drops Discontinued 1 DROPS EYE-RIGHT Twice daily April 13, 2024 12:00am March 14, 2025 1:43am Start: 04-13-2024 End: 03-14-2025 take 0.3 drop(s) [...] Active prednisoLONE acetate 10 mg/ml ophthalmic suspension (17 sources) Corticosteroid Start: 04-13-2024 End: 08-25-2024 prednisoLONE acetate (Pred-Forte) 1 % ophthalmic suspension Three times daily 04/13/2024 08/25/2024 Discontinued Start: 04-13-2024 End: 03-14-2025 take 1 drop(s) into the eye(s) three times daily Prednisolone Acetate (Pred Forte) 1 % drops,suspension Discontinued 1 DROPS EYE-RIGHT Three times daily April 13, 2024 12:00am March 14, 2025 1:44am Start: 04-13-2024 End: 03-14-2025 take 1 drop(s) [...] mouth. traMADol hydrochloride 50 mg oral tablet (20 sources) Opioid Agonist Start: 1 End: 3 take 1 tablet by mouth every six hours as needed for pain Tramadol 50 mg tablet Discontinued 50 MG PO Q6H as needed for pain 8 2 October 25, 2021 1:00am December 26, 2022 3:02pm Problems Active Problems Problem Classification Problem Date Documented Da te Episodic/Chronic Abdominal pain (4 sources) Generalized abdominal pain; Translations: [Generalized abdominal pain] 05-28-2025 Episodic Acquired foot deformities (9 sources) Acquired hallux valgus; Translations: [Hallux valgus (acquired), unspecified foot] Onset: 5 05-19-2025 Chronic Acute myocardial infarction (20 sources) Myocardial infarction; Translations: [Non-ST elevation (NSTEMI) myocardial infarction] Onset: 5 04-14-2024 Chronic Aspiration pneumonitis; food/vomitus (2 sources) Aspiration pneumonitis; Translations: [Pneumonitis due to inhalation of food and vomit] 12-28-2023 Episodic Biliary tract disease (1 source) Biliary calculus; Translations: [Calculus of gallbladder without cholecystitis without obstruction] 06-17-2025 Episodic Cataract (20 sources) Bilateral age-related nuclear cataracts; Translations: [Age-related nuclear cataract, bilateral] Onset: 4 02-13-2024 Chronic Chronic obstructive pulmonary disease and bronchiectasis (20 sources) Bronchiectasis; Translations: [Bronchiectasis, uncomplicated] Onset: 4 12-28-2023 Chronic Chronic obstructive pulmonary disease and bronchiectasis (8 sources) Bronchitis, not specified as acute or chronic; Translations: [Bronchitis, not specified as acute or chronic] 02-13-2024 Episodic Coronary atherosclerosis and other heart disease (20 sources) Acute coronary syndrome; Translations: [Acute ischemic heart disease, unspecified] Onset: 5 04-13-2024 Chronic Delirium, dementia, and amnestic and [...] Onset: 3 Chronic Diabetes mellitus without complication (9 sources) Type 2 diabetes mellitus; Translations: [Type 2 diabetes mellitus without complications] Onset: 4 03-10-2024 Chronic Diabetes mellitus without complication (5 sources) Prediabetes; Translations: [Prediabetes] Onset: 5 06-25-2025 Episodic Disorders of lipid metabolism (20 sources) Mixed hyperlipidemia; Translations: [Mixed hyperlipidemia] Onset: 3 Chronic Diverticulosis and diverticulitis (4 sources) Diverticular disease; Translations: [Diverticulosis of intestine, part unspecified, without perforation or abscess without bleeding] 05-28-2025 Chronic Epilepsy; convulsions (10 sources) Epilepsy; Translations: [Localization-related (focal) (partial) symptomatic epilepsy and epileptic syndromes with complex partial seizures, intractable, without status epilepticus] Onset: 4 08-13-2024 Chronic Esophageal disorders (20 sources) Gastroesophageal reflux disease; Translations: [Gastro-esophageal reflux disease without esophagitis] Onset: 3 02-21-2024 Chronic Genitourinary symptoms and ill-defined conditions (20 sources) Urinary incontinence; Translations: [Unspecified urinary incontinence] Onset: 3 08-20-2023 Chronic Intestinal obstruction without hernia (4 sources) Intestinal obstruction; Translations: [Other intestinal obstruction unspecified as to partial versus complete obstruction] 05-28-2025 Episodic Lymphadenitis (2 sources) Hilar lymphadenopathy ; Translations: [Localized enlarged lymph nodes] 03-25-2025 Episodic Malaise and fatigue (16 sources) Asthenia; Translations: [Weakness] Onset: 5 03-14-2025 Episodic Menopausal disorders (1 source) Hormone replacement therapy; Translations: [HORMONE REPLACEMENT THERAPY] Onset: Episodic Mycoses (3 sources) Onychomycosis due to dermatophyte ; Translations: [Tinea unguium] Episodic Nausea and vomiting (4 sources) Nausea and vomiting; Translations: [Nausea with vomiting, unspecified] 05-28-2025 Episodic Osteoporosis (20 sources) Osteoporosis; Translations: [Age-related osteoporosis without current pathological fracture] Onset: 3 08-20-2023 Chronic Other acquired deformities (2 sources) Plain X-ray spine abnormal; Translations: [Deforming dorsopathy, unspecified] 06-25-2025 Episodic Other aftercare (1 source) Treatment changed; Translations: [Other terminal carman (current) drug therapy] 03-10-2024 Episodic Other aftercare (1 source) Long-term current use of drug therapy; Translations: [joint terminal attack controller (current) use of antithrombotics/antipl atelets] Onset: 5 07-13-2025 Episodic Other connective tissue disease (2 sources) Other symptoms and signs involving the musculoskeletal system; Translations: [Other musculoskeletal symptoms referable to limbs] 06-25-2025 Episodic Other diseases of bladder and urethra (4 sources) Overactive bladder; Translations: [Overactive bladder] Onset: 5 05-27-2025 Chronic Other ear and sense organ disorders (5 sources) Hearing loss; Translations: [Unspecified hearing loss, unspecified ear] Onset: 5 05-19-2025 Chronic Other ear and sense organ disorders (2 sources) Hearing finding; Translations: [Other specified hearing loss, bilateral] 05-22-2025 Chronic Other gastrointestinal disorders (4 sources) Constipation, unspecified; Translations: [CONSTIPATION UNSPECIFIED] Onset: 3 Episodic Other gastrointestinal disorders (20 sources) Dysphagia; Translations: [Dysphagia, unspecified] Onset: 5 02-21-2024 Episodic Comment on above: mild Other gastrointestinal disorders (8 sources) Dysphagia, unspecified; Translations: [Dysphagia, unspecified] Onset: 5 02-21-2024 Episodic Other gastrointestinal disorders (4 sources) Diarrhea; Translations: [Diarrhea, unspecified] 05-28-2025 Episodic Other lower respiratory disease (4 sources) Interstitial lung disease; Translations: [Interstitial pulmonary disease, unspecified] Onset: 5 12-25-2023 Chronic Other nervous system disorders (4 sources) Polyneuropathy associated with another disorder; Translations: [Polyneuropathy in diseases classified elsewhere] Onset: 5 05-27-2025 Chronic Other nervous system disorders (20 sources) Acute postoperative pain; Translations: [Other acute postprocedural pain] Onset: 5 10-25-2021 Episodic Other nutritional; endocrine; and metabolic disorders (3 sources) Obesity; Translations: [Obesity, unspecified] Chronic Other nutritional; endocrine; and metabolic disorders (7 sources) Body mass index 30+ - obesity; Translations: [Body mass index (BMI) 32.0-32.9, adult] Onset: 4 03-10-2024 Chronic Other nutritional; endocrine; and metabolic disorders (2 sources) Body mass index (BMI) 32.0-32.9, adult; Translations: [Body mass index (BMI) 32.0-32.9, adult] Onset: 4 Chronic Other nutritional; endocrine; and metabolic disorders (5 sources) Obesity caused by energy imbalance; Translations: [Other obesity due to excess calories] Onset: 5 05-19-2025 Chronic Other screening for suspected conditions (not mental disorders or infectious disease) (5 sources) Endometrium thickened; Translations: [Abnormal findings on diagnostic imaging of other specified body structures] Onset: 5 05-19-2025 Chronic Other screening for suspected conditions (not mental disorders or infectious disease) (20 sources) Encounter for screening mammogram for malignant neoplasm of breast; Translations: [Raised cardiac enzyme or marker] Onset: 2 Episodic Other upper respiratory disease (20 sources) Vasomotor rhinitis; Translations: [Vasomotor rhinitis] Onset: 4 Resolved: 4 12-05-2023 Chronic Other upper respiratory disease (20 sources) Feeling of lump in throat; Translations: [Globus sensation] Onset: 5 02-21-2024 Episodic Otitis media and related conditions (10 sources) Otitis media; Translations: [Unspecified nonsuppurative otitis media, right ear] Onset: 5 05-20-2025 Episodic Peripheral and visceral atherosclerosis (2 sources) Atherosclerosis of aorta; Translations: [Atherosclerosis of aorta] 08-25-2024 Chronic Pneumonia (except that caused by tuberculosis or sexually transmitted disease) (20 sources) Community acquired pneumonia; Translations: [Pneumonia, unspecified organism] Onset: 5 03-14-2025 Episodic Pulmonary heart disease (16 sources) Pulmonary hypertension, unspecified; Translations: [Pulmonary hypertension] Onset: 4 Chronic Residual codes; unclassified (5 sources) Restlessness; Translations: [Restlessness and agitation] Onset: 5 05-19-2025 Chronic Residual codes; unclassified (2 sources) Restlessness and agitation; Translations: [Restlessness and agitation] 06-25-2025 Chronic Residual codes; unclassified (2 sources) Edema; Translations: [Edema, unspecified] 03-05-2025 Episodic Residual codes; unclassified (13 sources) Acute confusion; Translations: [Disorientation, unspecified] Onset: 5 03-14-2025 Episodic Residual codes; unclassified (2 sources) Disorientation, unspecified; Translations: [Delirium due to conditions classified elsewhere] 03-14-2025 Episodic Residual codes; unclassified (1 source) Pain, unspecified; Translations: [Pain, unspecified] Onset: 5 Episodic Residual codes; unclassified (5 sources) Altered mental status; Translations: [Altered mental status, unspecified] Onset: 5 05-19-2025 Episodic Residual codes; unclassified (10 sources) Device in situ; Translations: [Presence of neurostimulator] Onset: 5 05-19-2025 Episodic Respiratory failure; insufficiency; arrest (adult) (16 sources) Acute respiratory failure; Translations: [Acute respiratory failure with hypoxia] Onset: 5 03-14-2025 Episodic Rheumatoid arthritis and related disease (12 sources) Ankylosing spondylitis; Translations: [Ankylosing spondylitis lumbar region] Onset: 5 04-08-2025 Chronic Spondylosis; intervertebral disc disorders; other back problems (20 sources) Disseminated idiopathic skeletal hyperostosis; Translations: [Ankylosing hyperostosis [[place]], site unspecified] Onset: 4 02-25-2024 Chronic Spondylosis; intervertebral disc disorders; other back problems (4 sources) Chronic thoracic back pain; Translations: [Pain in thoracic spine] 06-25-2025 Episodic Syncope (20 sources) Syncope; Translations: [Syncope and collapse] Onset: 5 04-13-2024 Episodic Thyroid disorders (20 sources) Hypothyroidism; Translations: [Hypothyroidism, unspecified] Onset: 3 Chronic Transient cerebral ischemia (1 source) Transient cerebral ischemia; Translations: [Transient cerebral ischemic attack, unspecified] Onset: 2 07-13-2025 Chronic Unclassified (1 source) Unspecified intracranial injury with loss of consciousness status unknown, sequela (CMS-HCC); Translations: [Unspecified intracranial injury with loss of consciousness status unknown, sequela (CMS-HCC)] Onset: 4 Unclassified (1 source) Cough, unspecified; Translations: [Cough, unspecified] Onset: 4 Unclassified (4 sources) A [facility] screening has identified you as [...] Four Ways to Beat the Frailty Risk [email or web address] 03-15-2025 Unclassified (3 sources) Call office on Sunday to schedule follow-up with your Primary Care Provider within 3-5 days of discharge. Unclassified (4 sources) Autogenerated Problem Onset: 06-30-2025 Unclassified (1 source) Establish Care Onset: Past or Other Problems Problem Classification Problem Date Documented Date Episodic/Chronic Administrative/social admission (2 sources) Person consulting for explanation of examination or test findings; Translations: [Person consulting for explanation of examination or test findings] Onset: 06-12-2024 Episodic Asthma (20 sources) Moderate asthma; Translations: [Unspecified asthma, uncomplicated] Onset: 08-20-2023 Resolved: 08-25-2024 08-20-2023 Chronic Cardiac dysrhythmias (13 sources) Sinus bradycardia; Translations: [Other specified cardiac dysrhythmias] Onset: 03-10-2024 03-10-2024 Episodic Epilepsy; convulsions (20 sources) Seizure; Translations: [Unspecified convulsions] Onset: 04-24-2024 04-22-2024 Episodic Genitourinary symptoms and ill-defined conditions (5 sources) Frequency of micturition; Translations: [Urgency of urination] Onset: 04-05-2022 Episodic Immunizations and screening for infectious disease (20 sources) Needs influenza immunization; Translations: [Encounter for immunization] Onset: 08-23-2023 Resolved: 08-25-2024 08-23-2023 Episodic Intracranial injury (20 sources) Traumatic brain injury with loss of consciousness; Translations: [Unspecified intracranial injury with loss of consciousness of unspecified duration, sequela] Onset: 11-23-2002 12-28-2023 Episodic Mood disorders (20 sources) Mood disorders Onset: 02-22-2024 02-22-2024 Other aftercare (3 sources) Other snf (current) drug therapy; Translations: [OTH SOLE MOLDER CURRENT DRUG THERAPY] Onset: 02-12-2023 Episodic Other aftercare (9 sources) Patient encounter status; Translations: [Other snf (current) drug therapy] Onset: 06-12-2024 08-25-2024 Episodic Other circulatory disease (7 sources) Abnormal chest sounds; Translations: [Other specified symptoms and signs involving the circulatory and respiratory systems] Onset: 03-10-2024 03-10-2024 Episodic Other circulatory disease (20 sources) Pulmonary congestion ; Translations: [Other specified symptoms and signs involving the circulatory and respiratory systems] Onset: 12-05-2023 Resolved: 08-25-2024 12-05-2023 Episodic Other circulatory disease (2 sources) Other specified symptoms and signs involving the circulatory and respiratory systems; Translations: [Other specified symptoms and signs involving the circulatory and respiratory systems] Onset: 03-10-2024 Episodic Other lower respiratory disease (20 sources) Fibrosis of lung; Translations: [Pulmonary fibrosis, unspecified] Onset: 08-20-2023 Resolved: 08-25-2024 08-20-2023 Chronic Other lower respiratory disease (20 sources) Nonspecific interstitial pneumonia; Translations: [Other specified interstitial pulmonary diseases] Onset: 02-25-2024 Resolved: 08-25-2024 02-25-2024 Chronic Other lower respiratory disease (20 sources) Cough; Translations: [Cough] Onset: 06-29-2020 06-29-2020 Episodic Other lower respiratory disease (20 sources) Dyspnea; Translations: [Shortness of breath] Onset: 02-25-2024 Resolved: 08-25-2024 12-25-2023 Episodic Other lower respiratory disease (20 sources) Chronic cough; Translations: [Chronic cough] Onset: 12-05-2023 Resolved: 08-25-2024 12-05-2023 Episodic Other lower respiratory disease (1 source) Shortness of breath; Translations: [Shortness of breath] Onset: 03-10-2024 Episodic Other nervous system disorders (8 sources) Dysphasia; Translations: [Dysphasia] Onset: 03-10-2024 03-10-2024 Episodic Other nervous system disorders (1 source) Dysphasia; Translations: [Dysphasia] Onset: 03-10-2024 Episodic Screening and history of mental health and substance abuse codes (17 sources) Ex-smoker; Translations: [Personal history of tobacco use] Onset: 02-12-2023 03-10-2024 Episodic Comment on above: Quit 1979; Unclassified (1 source) Onset: 03-10-2024 03-10-2024 Unclassified (1 source) Unspecified intracranial injury with loss of consciousness status unknown, sequela ([place]); Translations: [Unspecified intracranial injury with loss of consciousness status unknown, sequela ([place])] Onset: 03-10-2024 Unclassified (1 source) Cough, unspecified; Translations: [Cough, unspecified] Onset: 03-10-2024 Unclassified (2 sources) Acute bilateral mastoiditis 05-22-2025 Unclassified (2 sources) Hearing finding 05-22-2025 Urinary tract infections (20 sources) Recurrent urinary tract infection; Translations: [Urinary tract infection, site not specified] Onset: 08-25-2024 08-25-2024 Episodic Results Test Name Value Interpretation Reference Range Facility [facility] 07-13-2025 [facility] Telephone (GENSAV) -- KARUNA REYNAGA ([id number]) 1945 F Date Time Provider Department 07/13/25 CYNTHIA AGUILAR During your visit today, we recorded the following information about you: Susanna Ashley RN 07/13/2025 2:04 PM Signed Patient's daughter calling. Patient scheduled for [facility] on 07/24/25. Patient is experiencing more frequent discomfort. Asking if any sooner OR times are available? Please call Nadira @ [phone] ok to leave , (there is a 30 sec delay before the beep ) [phone] Allergies As of Date: 07/13/2025 Noted Allergy Reaction DARVOCET A500 (PROPOXYPHENE N-ROB*06/29/2020 [...] ANTIBIOTICS) 06/29/2009 2 - Rash Date Reviewed: 07/10/2025 Reviewed by: Maribell Wilson RN - Fully Assessed Reason for Visit: Patient Question [4207] Appointment [[id number]] Prescriptions as of 07/13/2025 - cannabidiol (EPIDIOLEX) 100 mg/mL oral liquid 2 ml by mouth two times daily Patient should start on September 18, 2025. - OZEMPIC 1 mg/dose (4 mg/3 mL) pen Inject 1 mg subcutaneously one time a week. - omeprazole (PRILOSEC) 40 mg capsule Take 40 mg by mouth. - albuterol HFA (PROVENTIL HFA, VENTOLIN HFA) 90 mcg/actuation inhaler Inhale 2 puffs as instructed every 4 hours as needed. - fluticasone (FLONASE) 50 mcg/actuation nasal spray Use 2 sprays in each nostril two times a day. - fexofenadine (KELSEY) 180 mg tablet Take 180 mg by mouth once daily. - furosemide (LASIX) 20 mg tablet Take 10 mg by mouth once daily. - nitrofurantoin monohydrate and macrocrystal (MACROBID) 100 mg capsule Take 100 mg by mouth every 48 hours. - simvastatin (ZOCOR) 20 mg tablet Take 20 mg by mouth daily at bedtime. - oxybutynin XL (DITROPAN XL) 5 mg 24 hr tablet Take 5 mg by mouth once daily. - azithromycin (ZITHROMAX) 250 mg tablet Take [...] tablet daily. Problem List As Of Date 07/13/2025 Noted Resolved Cough [R05.9] 06/29/2020 Encounter Status:Closed by SUSANNA ASHLEY on 07/13/25 [facility] CNOVon 07-10-2025 CNOV Office Visit (OTOLMN ) -- KARUNA REYNAGA ([id number]) 1945 F Date Time Provider Department 07/10/25 4:00 PM HUMBLE SIMEON OTOLMN During your visit today, we recorded the following information about you: Humble Simeon MD 07/12/2025 3:03 PM Signed SECTION OF OTOLOGY, NEUROTOLOGY AND LATERAL SKULL BASE SURGERY Head and Neck [place], [facility] Quintin Sloan PA-C Chief Complaint: Concern for bilateral effusion HPI: Karuna Reynaga The patient is a 80-year-old female with a history of Alzheimer's dementia, accompanied by her daughter, presenting with concerns of fluid in the ears. The patient has a history of mastoiditis in both ears, diagnosed via CT scan, which showed fluid accumulation. This condition was associated with hearing loss, pain behind the ears, and balance issues. The patient was treated with Augmentin. The fluid persisted for a couple of months but has reportedly resolved over the past few weeks. Her daughter notes that the patient's hearing has returned to baseline, and her balance has improved, though it remains slightly off, possibly due to deconditioning from a period of illness and weakness. The patient has a history of TBI and Alzheimer's dementia, which affects her ability to provide a reliable history. She also has seasonal allergies and has been using Flonase and Kelsey, which her daughter believes have helped with the fluid in her ears. She was evaluated by Quintin who identified fluid in her right ear. Past Medical History: She has a past medical history of Stroke ([facility]) and Traumatic brain injury (HCC). Past Surgical History: She has no past surgical history on file. Social History: She reports that she quit smoking about 45 years ago. Her smoking use included cigarettes. She started smoking about 55 years ago. She has a 10 pack-year smoking history. She has never used smokeless tobacco. She reports that she does not drink alcohol and does not use drugs. Physical Exam: A comprehensive ear, nose, throat/head and neck exam was performed. Pertinent findings include: General: No acute distress. HEENT: Left tympanic membrane with possible fluid, right tympanic membrane with thin area, no clear fluid visualized. Ears: Right ear - Pinna normal EAC clear TM intact; Middle ear difficult to evaluate; possible effusion. Left ear - Pinna normal EAC clear, TM intact; middle ear difficult to evaluate; possible effusion. Neuro - Cranial Nerves: CN V - intact Right CN 7 - HB 1 Left CN 7 - HB 1 No dysphonia or dysarthria Shoulder and/or SCM strength normal Constitutional: Well appearing, typically developed, no acute distress Eyes: extra-ocular muscles intact, sclera white, pupils grossly symmetric Lymphatic: no visible cervical lymphadenopathy Respiratory: unlabored breathing with no grossly audible stridor or wheezing Skin: no obvious skin lesions of visible skin of face, neck Procedure Note: Diagnostic myringotomy Indication: Chronic bilateral otitis media. Performed by : Humble Simeon MD Assisted by: Maribell Wilson RN After verbal consent obtained and risks/benefits discussed including bleeding, infection, pain, hearing loss, persistent perforation of ear drum, and need for further procedures, patient would like to proceed with a DIAGNOSTIC myringotomy. The patient was placed in the supine position and prepared for myringotomy. The tympanic membrane was anesthetized with phenol. Using a myringotomy knife, a cut was made in the TM without complication. No fluid was visualized. A tube was NOT placed. The patient tolerated the procedure well with no complications. Labs Tests (Today) Diagnostic Myringotomy: No fluid identified bilaterally Imaging (05/03) CT Brain: Bilateral mastoiditis Audiogram (personally reviewed and interpreted): A screenshot of the audiogram from 07/10/25 is included if available electronically at the time of the visit. Right sided tympanogram is of lower volume and flatter than left side. Left side: Type A. Imaging (personally reviewed and interpreted): No recent imaging of ears available for review. Assessment: Chronic otitis media with effusion (bilateral). Resolved. Quintin previously noticed fluid on the right ear. Today, it was difficult to tell whether or not fluid persisted or not. Tympanogram was somewhat flat, but appeared to demonstrate an aerated middle ear. Interestingly, the left ear was more concerning to me for possible effusion. I recommended diagnostic myringotomy with possible tube placement. This was performed and no fluid was identified in either ear. --Keep ears dry. --Return to clinic PRN. Humble Simeon III, MD Recording using Triloq software for draft documentation of the visit was discussed with the patient/authorized technical support representative; all questions welcomed (more content not included)... Normal [facility] CNOV Office Visit (CDISMN ) -- KARUNA REYNAGA ([id number]) 1945 F Date Time Provider Department 07/10/25 3:00 PM [facility] During your visit today, we recorded the following information about you: Anastasia Kraus, BARBI 07/10/2025 3:52 PM Signed [facility] Head and Neck Department Section of Audiology TYMPANOMETRY ONLY Name: Karuna Reynaga [facility]#: [id number] Date of Service: 07/10/2025 Date of : 1945 Age: [age] year old Referred by: Humble Simeon MD Referred for: Evaluation of suspected change in hearing, tinnitus, or balance. Referral documented: In an order in [facility] (procedures tab) Karuna Reynaga was seen for unscheduled tympanometry at the request of Humble Simeon MD. Note patient is scheduled for an extended 60 minute audiogram on 07/14/2025 due to need for extended appointment in the context of cognitive concerns. This appointment type could not be accommodated today in the 20 minutes prior to her scheduled consult with Dr. Simeon. Description of procedure: This test is an objective evaluation of middle ear function. CPT code: 14551 RIGHT EAR: Normal ME function. LEFT EAR: Normal ME function. RECOMMENDATIONS *Continue medical follow up with Humble Simeon MD. *Return for audiogram (60 minutes) on 07/14/2025 if medically indicated. Fransisco Colon, [facility] [employer] [place] Abbrev- iation Definition Degree of hearing sensitivity dB range WNL within normal limits WNL 0 - 20 SNHL sensorineural hearing loss Mild 20-40 CHL conductive hearing loss Moderate 40-55 MHL mixed hearing loss Moderately-Severe 55-70 WRS word recognition score Severe 70-90 ME middle ear Profound 90 + TM tympanic membrane Allergies As of Date: 07/10/2025 Noted Allergy Reaction DARVOCET A500 (PROPOXYPHENE N-ROB*06/29/2020 [...] ANTIBIOTICS) 06/29/2009 2 - Rash Date Reviewed: 06/09/2025 Reviewed by: Alexa Jimenez MA - Fully Assessed Primary Visit Diagnosis:Dysfunction of both eustachian tubes [H69.93] Order(s):HEARING TEST/AUDIOGRAM [[id number]] Order #: [id number]: 1 Prescriptions as of 07/10/2025 - cannabidiol (EPIDIOLEX) 100 mg/mL oral liquid 2 ml by mouth two times daily Patient should start on September 18, 2025. - OZEMPIC 1 mg/dose (4 mg/3 mL) pen Inject 1 mg subcutaneously one time a week. - omeprazole (PRILOSEC) 40 mg capsule Take 40 mg by mouth. - albuterol HFA (PROVENTIL HFA, VENTOLIN HFA) 90 mcg/actuation inhaler Inhale 2 puffs as instructed every 4 hours as needed. - fluticasone (FLONASE) 50 mcg/actuation nasal spray Use 2 sprays in each nostril two times a day. - fexofenadine (KELSEY) 180 mg tablet Take 180 mg by mouth once daily. - furosemide (LASIX) 20 mg tablet Take 10 mg by mouth once daily. - nitrofurantoin monohydrate and macrocrystal (MACROBID) 100 mg capsule Take 100 mg by mouth every 48 hours. - simvastatin (ZOCOR) 20 mg tablet Take 20 mg by mouth daily at bedtime. - oxybutynin XL (DITROPAN XL) 5 mg 24 hr tablet Take 5 mg by mouth once daily. - azithromycin (ZITHROMAX) 250 mg tablet Take [...] tablet daily. Problem List As Of Date 07/10/2025 Noted Resolved Cough [R05.9] 06/29/2020 Encounter Status:Closed by ANASTASIA KRAUS on 07/10/25 Normal [facility] HEARING TEST/AUDIOGRAMon [facility] XR LUMBAR SPINE 2-3 VIEWSon 06-25-2025 XR LUMBAR SPINE 2-3 VIEWS EXAMINATION: XR LUMBAR SPINE 2-3 VIEWS TECHNIQUE: 3 views of the lumbar spine. HISTORY: Low back pain COMPARISONS: CT abdomen pelvis May 29, 2025 FINDINGS: Slight straightening of the lumbar lordosis. Stable chronic compression deformity of L1. Lumbar vertebral body heights are otherwise maintained. Osseous fusion of the vertebral bodies of L3 and L4. Multilevel degenerative endplate spurring. Facet arthropathy of the lower lumbar spine. No acute fracture. No spondylolysis or spondylolisthesis. IMPRESSION: No acute osseous abnormality. Degenerative changes of the lumbar spine. ELECTRONICALLY SIGNED BY: Vimal Ernst DO Normal Not Available XR THORACIC SPINE 2 VIEWSon 06-25-2025 XR THORACIC SPINE 2 VIEWS EXAM: XR THORACIC SPINE 2 VIEWS HISTORY: back pain TECHNIQUE: 3 views of the thoracic spine obtained. COMPARISON: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 [employer] MAE M.D. Performed By: #### G LUYADIEL #### Point of Care testing , Leukocytes [#/volume] correc rob for nucleated erythrocytes in Blood by Automated counOrdered By: Magda Navarro on 03-14-2025 WBC corrected for nucl RBC Auto (Bld) [#/Vol] Leukocytes [#/volume] corrected for nucleated erythrocytes in Blood by Automated coun 3.8-11.6 [facility] WBC corrected for nucl RBC Auto (Bld) [#/Vol] 6.9 10*3/uL 3.8-11. [facility] Leukocytes [#/volume] in Blo od by Automated countOrdered By: Magda Navarro on 03-14-2025 WBC (Bld) [#/Vol] 6.9 10*3/uL Normal 3.8-11.6 [facility] Comment on above: Order Comment: PER R N PARDEEP AND FAMILY REQUEST PT IS AGGRESSIVE Performed By: #### C BC, HS TROP #### [facility] [address] Lymphocytes Auto (Bld) [#/Vo l]Ordered By: Magda Navarro on 03-14-2025 Lymphocytes (Bld) [#/Vol] Lymphocytes [#/volume] in Blood by Automated count 1.00-4.8 [facility] Lymphocytes [#/volume] in Bl ood by Automated countOrdered By: Magda Navarro on 03-14-2025 Lymphocytes (Bld) [#/Vol] 1.2 10*3/uL Normal 1.00-4.8 [facility] Comment on above: Order Comment: PER R N PARDEEP AND FAMILY REQUEST PT IS AGGRESSIVE Performed By: #### C BC, HS TROP #### [address] Lymphocytes/100 WBC Auto (Bl d)Ordered By: Magda Navarro on 03-14-2025 Lymphocytes/100 WBC (Bld) Lymphocytes/100 leukocytes in Blood by Automated count . [facility] Lymphocytes/100 leukocytes i n Blood by Automated countOrdered By: Magda Navarro on 03-14-2025 Lymphocytes/100 WBC (Bld) 16.8 % Normal . [facility] Comment on above: Order Comment: PER R N PARDEEP AND FAMILY REQUEST PT IS AGGRESSIVE Performed By: #### C BC, HS TROP #### [address] MCH Auto (RBC) [Entitic mass ]Ordered By: Magda Navarro on 03-14-2025 MCH (RBC) [Entitic mass] MCH [Entitic mass] by Automated count 24.7-34.3 [facility] MCH [Entitic mass] by Automa rob countOrdered By: Magda Navarro on 03-14-2025 MCH (RBC) [Entitic mass] 29.7 pg Normal 24.7-34.3 [facility] Comment on above: Order Comment: PER R N PARDEEP AND FAMILY REQUEST PT IS AGGRESSIVE Performed By: #### C BC, HS TROP #### [address] MCHC Auto (RBC) [Mass/Vol]Or dered By: Magda Navarro on 03-14-2025 MCHC (RBC) [Mass/Vol] MCHC [Mass/volume] by Automated count 32.0-35.0 [facility] MCHC (RBC) [Mass/Vol] 32.9 g/dL 32.0-35.0 [facility] MCV Auto (RBC) [Entitic vol] Ordered By: Magda Navarro on 03-14-2025 MCV (RBC) [Entitic vol] MCV [Entitic vol ume] by Automated count 80-100 [facility] MCV [Entitic volume] by Auto mated countOrdered By: Magda Navarro on 03-14-2025 MCV (RBC) [Entitic vol] 90.2 fL Normal 80-100 [facility] Comment on above: Order Comment: PER R N PARDEEP AND FAMILY REQUEST PT IS AGGRESSIVE Performed By: #### C BC, HS TROP #### [facility] [address] Magnesium [Mass/volume] in S sun or PlasmaOrdered By: Magda Navarro on 03-14-2025 Magnesium [Mass/Vol] Magnesium [Mass/vol ume] in Serum or Plasma 1.9-2.7 [facility] Magnesium [Mass/Vol] 1.9 mg/dL Normal 1.9-2.[address] [facility] Comment on above: Order Comment: PER R N PARDEEP AND FAMILY REQUEST PT IS AGGRESSIVE Result Comment: PERF ORMED BY: [facility] [address] [facility] [place] [address] PATHOLOGIST [employer] MAE M.D. Performed By: #### M G #### [facility] [address] Monocyte distribution width [Entitic volume] in Blood by AutomatedOrdered By: Magda Navarro on 03-14-2025 Monocyte distribution width Auto (Bld) [Entitic vol] Monocyte distribution width [Entitic volume] in Blood by Automated High 0.00-20.00 [facility] Comment on above: For adults in ED, MD W > 20.0 may be associated with a higher risk of sepsis during the first 12 hrs of hospital admission Monocyte distribution width Auto (Bld) [Entitic vol] 24.48 % High 0.00-20.00 [facility] Comment on above: For adults in ED, MD W > 20.0 may be associated with a higher risk of sepsis during the first 12 hrs of hospital admission Monocytes Auto (Bld) [#/Vol] Ordered By: Magda Navarro on 03-14-2025 Monocytes (Bld) [#/Vol] Automated blood monocyte count 0.0-0.8 [facility] Monocytes [#/volume] in Bloo d by Automated countOrdered By: Magda Navarro on 03-14-2025 Monocytes (Bld) [#/Vol] 0.6 10*3/uL Normal 0.0-0.8 [facility] Comment on above: Order Comment: PER R N PARDEEP AND FAMILY REQUEST PT IS AGGRESSIVE Performed By: #### C BC, HS TROP #### [facility] [address] Monocytes/100 WBC Auto (Bld) Ordered By: Magda Navarro on 03-14-2025 Monocytes/100 WBC (Bld) Automated monocyte % . [facility] Monocytes/100 leukocytes in Blood by Automated countOrdered By: Magda Navarro on 03-14-2025 Monocytes/100 WBC (Bld) 8.7 % Normal . [facility] Comment on above: Order Comment: PER R N PARDEEP AND FAMILY REQUEST PT IS AGGRESSIVE Performed By: #### C BC, HS TROP #### [facility] [address] [place] [address] [place] Neutrophils Auto (Bld) [#/Vo l]Ordered By: Magda Navarro on 03-14-2025 Neutrophils (Bld) [#/Vol] Neutrophils [#/volume] in Blood by Automated count 1.8-7.7 [facility] Neutrophils [#/volume] in Bl ood by Automated countOrdered By: Magda Navarro on 03-14-2025 Neutrophils (Bld) [#/Vol] 5.0 10*3/uL Normal 1.8-7.7 [facility] Comment on above: Order Comment: PER R N PARDEEP AND FAMILY REQUEST PT IS AGGRESSIVE Performed By: #### C BC, HS TROP #### [facility] [address] [place] [address] [place] Neutrophils/100 WBC Auto (Bl d)Ordered By: Magda Navarro on 03-14-2025 Neutrophils/100 WBC (Bld) Automated neutrophil % . [facility] Neutrophils/100 leukocytes i n Blood by Automated countOrdered By: Magda Navarro on 03-14-2025 Neutrophils/100 WBC (Bld) 72.8 % Normal . [facility] Comment on above: Order Comment: PER R N PARDEEP AND FAMILY REQUEST PT IS AGGRESSIVE Performed By: #### C BC, HS TROP #### [facility] [address] Nucleated erythrocytes [Pres ence] in Blood by Automated countOrdered By: Magda Navarro on 03-14-2025 Nucleated RBC Auto Ql (Bld) Nucleated erythrocytes [Presence] in Blood by Automated count 0-0.5 [facility] Nucleated RBC Auto Ql (Bld) 0.1 /100{WBC} 0-0.5 [facility] Platelet mean volume Auto (B ld) [Entitic vol]Ordered By: Magda Navarro on 03-14-2025 Platelet mean volume (Bld) [Entitic vol] Platelet mean volume [Entitic volume] in Blood by Automated count 6.3-10.7 [facility] Platelet mean volume [Entiti c volume] in Blood by Automated countOrdered By: Magda Navarro on 03-14-2025 Platelet mean volume (Bld) [Entitic vol] 8.3 fL Normal 6.3-10.7 [facility] Comment on above: Order Comment: PER R N PARDEEP AND FAMILY REQUEST PT IS AGGRESSIVE Performed By: #### C BC, HS TROP #### [facility] [address] [place] [address] [place] Platelets Auto (Bld) [#/Vol] Ordered By: Magda Navarro on 03-14-2025 Platelets (Bld) [#/Vol] Platelets [#/vol ume] in Blood by Automated count 150-450 [facility] Platelets [#/volume] in Bloo d by Automated countOrdered By: Magda Navarro on 03-14-2025 Platelets (Bld) [#/Vol] 169 10*3/uL Normal 150-450 [facility] Comment on above: Order Comment: PER R N PARDEEP AND FAMILY REQUEST PT IS AGGRESSIVE Performed By: #### C BC, HS TROP #### [address] RBC Auto (Bld) [#/Vol]Ordere d By: Magda Navarro on 03-14-2025 RBC (Bld) [#/Vol] Erythrocytes [#/volu me] in Blood by Automated count 3.60-5.00 [facility] Troponin I High Sensitivityo n 03-14-2025 Troponin I High Sensitivity 397 Off scale high 0-15 [facility] Comment on above: Order Comment: PER R N PARDEEP AND FAMILY REQUEST PT IS AGGRESSIVE Result Comment: Crit ical Result : Called to and read back by: MAGDA BANUELOS/Yemi at: 03/14/2025 12:01:03 by:[id number] The Troponin units of report have been changed to meet the Chest Pain Accreditation requirement, element EC5.M1l2. Troponin units are changed from pg/ml to ng/L. Also, the decimal is removed and results are in whole numbers. PERFORMED BY: [place] [address] PATHOLOGIST [employer] MAE M.D. Performed By: #### C BC, HS TROP #### [address] Troponin I High Sensitivity 403 Off scale high 0-15 [facility] Comment on above: Result Comment: Crit ical Result : Called to and read back by: BEVERLY GOMEZ at: 03/14/2025 01:01:41 by:[id number] The Troponin units of report have been changed to meet the Chest Pain Accreditation requirement, element EC5.M1l2. Troponin units are changed from pg/ml to ng/L. Also, the decimal is removed and results are in whole numbers. PERFORMED BY: [place] [address] PATHOLOGIST [employer] MAE M.D. Performed By: #### H S TROP #### [facility] [address] Troponin I.cardiac [Mass/vol ume] in Serum or Plasma by Detection limit <= 0.01 ng/Ordered By: Magda Navarro on 03-14-2025 Troponin I.cardiac DL <= 0.01 ng/mL [Mass/Vol] Troponin I.cardiac [Mass/volume] in Serum or Plasma by Detection limit <= 0.01 ng/ Critically high [address] Comment on above: Critical Result : Ca lled to and read back by: MAGDA BANUELOS/Yemi at: 03/14/2025 12:01:03 by:[id number] Troponin units of report have been changed [...] Detection limit <= 0.01 ng/ Critically high [address] [place] [address] Comment on above: Critical Result : Ca lled to and read back by: BEVERLY GOMEZ at: 03/14/2025 01:01:41 by:[id number] Troponin units of report have been changed to meet the Chest Pain Accreditation requirement, element EC5.M1l2. Troponin units are changed from pg/ml to ng/L. Also, the decimal is removed and results are in whole numbers. Troponin I.cardiac [Mass/vol ume] in Serum or Plasma by Detection limit <= 0.01 ng/mLOrdered By: Magda Navarro on 03-14-2025 Troponin I.cardiac DL <= 0.01 ng/mL [Mass/Vol] 397 ng/L Critically high [address] [place] [address] Comment on above: Critical Result : Ca lled to and read back by: MAGDA BANUELOS/Yemi at: 03/14/2025 12:01:03 by:[id number] Troponin units of report have been changed to meet the Chest Pain Accreditation requirement, element EC5.M1l2. Troponin units are changed from pg/ml to ng/L. Also, the decimal is removed and results are in whole numbers. WBC Auto (Bld) [#/Vol]Ordere d By: Magda Navarro on 03-14-2025 WBC (Bld) [#/Vol] Leukocytes [#/volume ] in Blood by Automated count 3.8-11.6 [facility] Appearance of UrineOrdered B y: Loraine Mccallum on 03-13-2025 Appearance (U) Urine appearance Clear [facility] Appearance (U) Clear Normal Clear [facility] Comment on above: Order Comment: Name Collection Type:: Clean-Voided Midstream Performed By: #### G BALJEET #### Point of Care testing , BNP ser/plasOrdered By: Mague Mccallum on 03-13-2025 Natriuretic peptide B (Bld) [Mass/Vol] 28.0 pg/mL Normal 5-100 [facility] Comment on above: Result Comment: PERF ORMED BY: [place] [address] PATHOLOGIST [employer] MAE M.D. Performed By: #### M G #### [facility] [address] [place] [address] [facility] Bacteria [Presence] in Urine by AutomatedOrdered By: Loraine Mccallum on 03-13-2025 Bacteria Auto Ql (U) Bacteria [Presence] in Urine by Automated None Seen [facility] Bacteria Auto Ql (U) None seen [HPF] None Seen [facility] Basic Metabolic Panelon Creatinine Clr Calc Pharmacy 46.20 Normal [facility] Comment on above: Result Comment: PERF ORMED BY: [place] [address] PATHOLOGIST [employer] MAE M.D. Performed By: #### M G #### [facility] [address] [place] [address] [place] GFR/1.73 sq M.predicted MDRD (S/P/Bld) [Vol rate/Area] mL/min/{1.73_m2} Normal [facility] Comment on above: Performed By: #### M G #### [address] Basophils Auto (Bld) [#/Vol] Ordered By: Loraine Mccallum on 03-13-2025 Basophils (Bld) [#/Vol] Automated basophil count 0.0-0.2 [facility] Basophils/100 WBC Auto (Bld) Ordered By: Loraine Mccallum on 03-13-2025 Basophils/100 WBC (Bld) Automated basophil % . [facility] Bilirubin Test strip Ql (U)O rdered By: Loraine Mccallum on 03-13-2025 Bilirubin Ql (U) Bilirubin.total [Pre sence] in Urine by Test strip Negative [facility] Bilirubin Ql (U) Negative Negative [facility] BioFire Not Detectedon 03-13 BioFire Not Detected Not detected Normal Not Detecte [facility] Comment on above: Result Comment: This is a duplicate RP2.1 COVID (PCR) result to be used for statistical tracking purpose only. PERFORMED BY: [place] [address] PATHOLOGIST [employer] MAE M.D. Performed By: #### R WIL PANEL UPP., BIOFIRECOVNOTDE #### [address] COVID-19 Detected/Not Detect edOrdered By: Loraine Mccallum on 03-13-2025 SARS-CoV-2 (COVID-19) RNA JAYRO+non-probe Ql (Nph) Not detected Not Detecte [facility] Comment on above: This is a duplicate RP2.1 COVID (PCR) result to be used for statistical tracking purpose only. CT head/brain wo conon 03-13 CT head/brain wo con [facility] Main [place] [address] [place] [address] CT Scan Report Signed Patient: Karuna Reynaga MR#: [id number] : 1945 Acct:[id number] Age/Sex: 80 / F ADM Date: 03/13/25 [...] Muñoz M.D. 03/13/2025 10:19 PM Dictation Location: [place] [address] Transcribed By: [facility] 03/13/252218 Dictated By: Jose Muñoz II, MD 03/13/252212 Signed By: 03/13/252218 Normal [facility] Calcium [Mass/volume] in Ser um or PlasmaOrdered By: Loraine Mccallum on 03-13-2025 Calcium [Mass/Vol] Calcium [Mass/volume ] in Serum or Plasma 8.6-10.3 [facility] Calcium [Mass/Vol] 9.6 mg/dL Normal 8.6-10.3 [facility] Comment on above: Performed By: #### M G #### [facility] [address] [place] [address] [place] Carbon dioxide, total [Moles /volume] in Serum or PlasmaOrdered By: Loraine Mccallum on 03-13-2025 CO2 [Moles/Vol] Carbon dioxide, tota l [Moles/volume] in Serum or Plasma 21.0-31.0 [facility] CO2 [Moles/Vol] 28.5 mmol/L Normal 21.0-31.0 [facility] Comment on above: Performed By: #### M G #### [place] [address] [place] Chloride [Moles/volume] in S sun or PlasmaOrdered By: Loraine Mccallum on 03-13-2025 Chloride [Moles/Vol] Chloride [Moles/vol ume] in Serum or Plasma 98-107 [facility] Chloride [Moles/Vol] 102 mmol/L Normal 98-[address] [facility] Comment on above: Performed By: #### M G #### [facility] [address] [place] [address] [place] Color Auto (U)Ordered By: Josh Mccallum on 03-13-2025 Color (U) Color of Urine by Auto Yellow [facility] Color of Urine by AutoOrdere d By: Loraine Mccallum on 03-13-2025 Color (U) Yellow Normal Yellow [facility] Comment on above: Order Comment: Name Collection Type:: Clean-Voided Midstream Performed By: #### G LUYADIEL #### Point of Care testing , Complete Blood Count Auto Di ffon 03-13-2025 Basophils (Bld) [#/Vol] 0.0 10*3/uL Normal 0.0-0.2 [facility] Comment on above: Result Comment: PERF ORMED BY: [place] [address] PATHOLOGIST [employer] MAE M.D. Performed By: #### M G #### [place] [address] [place] Basophils/100 WBC (Bld) 0.7 % Normal . [facility] Comment on above: Performed By: #### M G #### [address] Eosinophils (Bld) [#/Vol] 0.1 10*3/uL Normal 0.0-0.45 [facility] Comment on above: Performed By: #### M G #### [address] Eosinophils/100 WBC (Bld) 1.1 % Normal . [facility] Comment on above: Performed By: #### M G #### [address] Erythrocyte distribution width (RBC) [Ratio] 13.6 % Normal 11.9-15.3 [facility] Comment on above: Performed By: #### M G #### [address] Hematocrit (Bld) [Volume fraction] 40.5 % Normal 34.0-46.4 [facility] Comment on above: Performed By: #### M G #### [address] Hemoglobin (Bld) [Mass/Vol] 13.5 g/dL Normal 11.8-15.4 [facility] Comment on above: Performed By: #### M G #### [address] Lymphocytes (Bld) [#/Vol] 1.3 10*3/uL Normal 1.00-4.8 [facility] Comment on above: Performed By: #### M G #### [address] Lymphocytes/100 WBC (Bld) 23.1 % Normal . [facility] Comment on above: Performed By: #### M G #### [address] MCH (RBC) [Entitic mass] 29.9 pg Normal 24.7-34.3 [facility] Comment on above: Performed By: #### M G #### [address] MCV (RBC) [Entitic vol] 89.5 fL Normal 80-100 [facility] Comment on above: Performed By: #### M G #### [address] Mean Corpuscular HGB Conc 33.5 g/dL Normal 32.0-35.0 [facility] Comment on above: Performed By: #### M G #### [address] Monocytes (Bld) [#/Vol] 0.5 10*3/uL Normal 0.0-0.8 [facility] Comment on above: Performed By: #### M G #### [address] Monocytes/100 WBC (Bld) 22.62 % High 0.00-20.00 [facility] Comment on above: Result Comment: For adults in ED, MDW > 20.0 may be associated with a higher risk of sepsis during the first 12 hrs of hospital admission Performed By: #### M G #### [address] Monocytes/100 WBC (Bld) 9.3 % Normal . [facility] Comment on above: Performed By: #### M G #### [place] [address] [place] Neutrophils (Bld) [#/Vol] 3.7 10*3/uL Normal 1.8-7.7 [facility] Comment on above: Performed By: #### M G #### [address] Neutrophils/100 WBC (Bld) 65.8 % Normal . [facility] Comment on above: Performed By: #### M G #### [place] [address] [place] NRBC% 0.1 /100{WBC} Normal 0-0.5 [facility] Comment on above: Performed By: #### M G #### [facility] [address] [id number] [place] Platelet mean volume (Bld) [Entitic vol] 8.2 fL Normal 6.3-10.7 [facility] Comment on above: Performed By: #### M G #### [facility] [address] [place] [id number] [place] Platelets (Bld) [#/Vol] 206 10*3/uL Normal 150-450 [facility] Comment on above: Performed By: #### M G #### [facility] [address] [place] [id number] [place] RBC (Bld) [#/Vol] 4.52 10*6/uL Normal 3.60-5.00 [facility] Comment on above: Performed By: #### M G #### [facility] [address] [place] [id number] [place] WBC (Bld) [#/Vol] 5.6 10*3/uL Normal 3.8-11.6 [facility] Comment on above: Performed By: #### M G #### [address] Creatinine [Mass/volume] in Serum or PlasmaOrdered By: Loraine Mccallum on 03-13-2025 Creatinine [Mass/Vol] Creatinine [Mass/v olume] in Serum or Plasma 0.60-1.20 [facility] Creatinine [Mass/Vol] 0.74 mg/dL Normal 0.60-1.20 [facility] Comment on above: Performed By: #### M G #### [address] Crystals [Presence] in Urine by AutomatedOrdered By: Loraine Mccallum on 03-13-2025 Crystals Auto Ql (U) Crystals [Presence] in Urine by Automated [facility] Crystals Auto Ql (U) 2+ [HPF] [facility] D-Dimer High Sensitivityon 0 03-13-2025 D-Dimer High Sensitivity <200 Normal 0-243 [facility] Comment on above: [...] coagulation studies. Please contact the laboratory at [phone] for redraw instructions. PERFORMED BY: [place] [address] PATHOLOGIST [employer] MAE M.D. Performed By: #### D DIMER #### [address] Dipstick and Microscopicon 0 03-13-2025 Bacteria,Urine None Seen Normal None Seen [facility] Comment on above: Order Comment: Name Collection Type:: Clean-Voided Midstream Performed By: #### G LULS #### Point of Care testing , Bilirubin,Urine Negative Normal Negative [facility] Comment on above: Order Comment: Name Collection Type:: Clean-Voided Midstream Performed By: #### G LULS #### Point of Care testing , Glucose Ql (U) Normal Normal Normal [facility] Comment on above: Order Comment: Name Collection Type:: Clean-Voided Midstream Performed By: #### G LULS #### Point of Care testing , Hyaline Casts,Urine None Normal 0-8 [facility] Comment on above: Order Comment: Name Collection Type:: Clean-Voided Midstream Performed By: #### G LULS #### Point of Care testing , Mucus,Urine Rare Normal [facility] Comment on above: Order Comment: Name Collection Type:: Clean-Voided Midstream Result Comment: PERF ORMED BY: [address] [address] PATHOLOGIST [employer] MAE M.D. Performed By: #### G LULS #### Point of Care testing , Nitrite,Urine Negative Normal Negative [facility] Comment on above: Order Comment: Name Collection Type:: Clean-Voided Midstream Performed By: #### G LULS #### Point of Care testing , Occult Blood,Urine Trace High Negative [facility] Comment on above: Order Comment: Name Collection Type:: Clean-Voided Midstream Result Comment: PERF ORMED BY: [facility] [address] [place] [address] PATHOLOGIST PARTS PICKER ROZ MAE M.D. Performed By: #### G LULS #### Point of Care testing , Othe Crystals,Urine 2+ Normal [facility] Comment on above: Order Comment: Name Collection Type:: Clean-Voided Midstream Performed By: #### G LULS #### Point of Care testing , RBC,Urine 5-9 High 0-4 [facility] Comment on above: Order Comment: Name Collection Type:: Clean-Voided Midstream Performed By: #### G LULS #### Point of Care testing , Specificy [place],Urine 1.032 High 1.00 1-1.03 0 [facility] Comment on above: Order Comment: Name Collection Type:: Clean-Voided Midstream Performed By: #### G LULS #### Point of Care testing , Squamous Epithelial Cell,Urine 1-2 Normal 0-2 [facility] Comment on above: Order Comment: Name Collection Type:: Clean-Voided Midstream Performed By: #### G LULS #### Point of Care testing , Urobilinogen,Urine Normal Normal Normal [facility] Comment on above: Order Comment: Name Collection Type:: Clean-Voided Midstream Performed By: #### G LULS #### Point of Care testing , WBC,Urine 1-2 Normal 0-4 [facility] Comment on above: Order Comment: Name Collection Type:: Clean-Voided Midstream Performed By: #### G LULS #### Point of Care testing , ECG 12 lead ECGon 03-13-2025 ECG 12 lead ECG [facility] [place] [address] Electrocardiograph Report Signed Patient: Karuna Reynaga MR#: [id number] : 1945 Acct:[id number] Age/Sex: 80 / F ADM Date: 03/13/25 [...] sinus rhythm Confirmed by Loraine Mccallum MD ([id number]) on 03/13/2025 9:36:55 PM Referred By: Electronically Signed By: Loraine Mccallum MD Transcribed By: MUS Signed By Loraine Mccallum MD 07/30 Normal [facility] Eosinophils Auto (Bld) [#/Vo l]Ordered By: Loraine Mccallum on 03-13-2025 Eosinophils (Bld) [#/Vol] Automated eosinophil count 0.0-0.45 [facility] Eosinophils/100 WBC Auto (Bl d)Ordered By: Loraine Mccallum on 03-13-2025 Eosinophils/100 WBC (Bld) Automated eosinophil % . [facility] Epithelial cells.squamous [# /area] in Urine sediment by Automated countOrdered By: Loraine Mccallum on 03-13-2025 Epithelial cells.squamous Auto (Urine sed) [#/Area] Epithelial cells.squamous [#/area] in Urine sediment by Automated count 0-2 [facility] Epithelial cells.squamous Auto (Urine sed) [#/Area] 1-2 [HPF] 0-2 [facility] Erythrocyte distribution wid th Auto (RBC) [Ratio]Ordered By: Loraine Mccallum on 03-13-2025 Erythrocyte distribution width (RBC) [Ratio] Erythrocyte distribution width [Ratio] by Automated count 11.9-15.3 [facility] Erythrocytes [#/area] in Uri ne sediment by Automated countOrdered By: Loraine Mccallum on 03-13-2025 RBC Auto (Urine sed) [#/Area] Erythrocytes [#/area] in Urine sediment by Automated count High 0-4 [facility] RBC Auto (Urine sed) [#/Area] 5-9 [HPF] High 0-4 [facility] Fibrin D-dimer [Presence] in Platelet poor plasma by Latex agglutinationOrdered By: Loraine Mccallum on 03-13-2025 Fibrin D-dimer LA Ql (PPP) Fibrin D-dimer [Presence] in Platelet poor plasma by Latex agglutination 0-243 [facility] Comment on above: The reference [...] coagulation studies. Please contact the laboratory at [phone] for redraw instructions. Fibrin D-dimer LA Ql (PPP) < 200 ng/mL 0-243 [facility] Comment on above: The reference [...] coagulation studies. Please contact the laboratory at [phone] for redraw instructions. Glucose [Mass/volume] in Ser um or PlasmaOrdered By: Loraine Mccallum on 03-13-2025 Glucose [Mass/Vol] Glucose [Mass/volume ] in Serum or Plasma [facility] 70-100 [facility] Comment on above: ADA recommended refe rence rangeRandom Glucose Reference Range is dependent on time and content of last meal. Glucose of more than 200 mg/dL in a nonstressed, ambulatory subject supports the diagnosis of Diabetes Mellitus. Glucose [Mass/Vol] 116 mg/dL [facility] 70-100 [facility] Comment on above: ADA recommended refe rence rangeRandom Glucose Reference Range is dependent on time and content of last meal. Glucose of more than 200 mg/dL in a nonstressed, ambulatory subject supports the diagnosis of Diabetes Mellitus. Result Comment: [place] om Glucose Reference Range is dependent on time and content of last meal. Glucose of more than 200 mg/dL in a nonstressed, ambulatory subject supports the diagnosis of Diabetes Mellitus. ADA recommended reference range Performed By: #### M G #### [address] Glucose [Mass/volume] in Uri ne by Test stripOrdered By: Loraine Mccallum on 03-13-2025 Glucose Test strip (U) [Mass/Vol] Glucose [Mass/volume] in Urine by Test strip Normal [facility] Glucose Test strip (U) [Mass/Vol] Normal mg/dL Normal [facility] Hematocrit Auto (Bld) [Volum e fraction]Ordered By: Loraine Mccallum on 03-13-2025 Hematocrit (Bld) [Volume fraction] Hematocrit [Volume Fraction] of Blood by Automated count 34.0-46.4 [facility] Hemoglobin Test strip Ql (U) Ordered By: Loraine Mccallum on 03-13-2025 Hemoglobin Ql (U) Hemoglobin [Presence ] in Urine by Test strip High Negative [facility] Hemoglobin Ql (U) Trace High Negative [facility] Hemoglobin [Mass/volume] in BloodOrdered By: Loraine Mccallum on 03-13-2025 Hemoglobin (Bld) [Mass/Vol] Hemoglobin [Mass/volume] in Blood 11.8-15.4 [facility] Hyaline casts [#/area] in Ur ine sediment by Automated countOrdered By: Loraine Mccallum on 03-13-2025 Hyaline casts Auto (Urine sed) [#/Area] Hyaline casts [#/area] in Urine sediment by Automated count 0-8 [facility] Hyaline casts Auto (Urine sed) [#/Area] None [LPF] 0-8 [facility] Ketones Test strip Ql (U)Ord ered By: Loraine Mccallum on 03-13-2025 Ketones Ql (U) Ketones [Presence] i n Urine by Test strip Negative [facility] Ketones [Presence] in Urine by Test stripOrdered By: Loraine Mccallum on 03-13-2025 Ketones Ql (U) Negative Normal Negative [facility] Comment on above: Order Comment: Name Collection Type:: Clean-Voided Midstream Performed By: #### G LULS #### Point of Care testing , Leukocyte esterase [Presence ] in Urine by Test stripOrdered By: Loraine Mccallum on 03-13-2025 Leukocyte esterase Test strip Ql (U) Leukocyte esterase [Presence] in Urine by Test strip Negative [facility] Leukocyte esterase Test strip Ql (U) Negative Normal Negative [facility] Comment on above: Order Comment: Name Collection Type:: Clean-Voided Midstream Performed By: #### G LULS #### Point of Care testing , Leukocytes [#/area] in Urine sediment by Automated countOrdered By: Loraine Mccallum on 03-13-2025 WBC Auto (Urine sed) [#/Area] Leukocytes [#/area] in Urine sediment by Automated count 0-4 [facility] WBC Auto (Urine sed) [#/Area] 1-2 [HPF] 0-4 [facility] Leukocytes [#/volume] correc rob for nucleated erythrocytes in Blood by Automated counOrdered By: Loraine Mccallum on 03-13-2025 WBC corrected for nucl RBC Auto (Bld) [#/Vol] Leukocytes [#/volume] corrected for nucleated erythrocytes in Blood by Automated coun 3.8-11.6 [facility] Lymphocytes Auto (Bld) [#/Vo l]Ordered By: Loraine Mccallum on 03-13-2025 Lymphocytes (Bld) [#/Vol] Lymphocytes [#/volume] in Blood by Automated count 1.00-4.8 [facility] Lymphocytes/100 WBC Auto (Bl d)Ordered By: Loraine Mccallum on 03-13-2025 Lymphocytes/100 WBC (Bld) Lymphocytes/100 leukocytes in Blood by Automated count . [facility] MCH Auto (RBC) [Entitic mass ]Ordered By: Loraine Mccallum on 03-13-2025 MCH (RBC) [Entitic mass] MCH [Entitic mass] by Automated count 24.7-34.3 [facility] MCHC Auto (RBC) [Mass/Vol]Or dered By: Loraine Mccallum on 03-13-2025 MCHC (RBC) [Mass/Vol] MCHC [Mass/volume] by Automated count 32.0-35.0 [facility] MCV Auto (RBC) [Entitic vol] Ordered By: Loraine Mccallum on 03-13-2025 MCV (RBC) [Entitic vol] MCV [Entitic vol ume] by Automated count 80-100 [facility] Monocyte distribution width [Entitic volume] in Blood by AutomatedOrdered By: Loraine Mccallum on 03-13-2025 Monocyte distribution width Auto (Bld) [Entitic vol] Monocyte distribution width [Entitic volume] in Blood by Automated High 0.00-20.00 [facility] Comment on above: For adults in ED, MD W > 20.0 may be associated with a higher risk of sepsis during the first 12 hrs of hospital admission Monocytes Auto (Bld) [#/Vol] Ordered By: Loraine Mccallum on 03-13-2025 Monocytes (Bld) [#/Vol] Automated blood monocyte count 0.0-0.8 [facility] Monocytes/100 WBC Auto (Bld) Ordered By: Loraine Mccallum on 03-13-2025 Monocytes/100 WBC (Bld) Automated monocyte % . [facility] Mucus [Presence] in Urine by AutomatedOrdered By: Loraine Mccallum on 03-13-2025 Mucus Auto Ql (U) Mucus [Presence] in Urine by Automated [facility] Mucus Auto Ql (U) Rare [LPF] [facility] Natriuretic peptide B [Mass/ Vol]Ordered By: Loraine Mccallum on 03-13-2025 Natriuretic peptide B (Bld) [Mass/Vol] BNP ser/plas 5-100 [facility] Neutrophils Auto (Bld) [#/Vo l]Ordered By: Loraine Mccallum on 03-13-2025 Neutrophils (Bld) [#/Vol] Neutrophils [#/volume] in Blood by Automated count 1.8-7.7 [facility] Neutrophils/100 WBC Auto (Bl d)Ordered By: Loraine Mccallum on 03-13-2025 Neutrophils/100 WBC (Bld) Automated neutrophil % . [facility] Nitrite Test strip Ql (U)Ord ered By: Loraine Mccallum on 03-13-2025 Nitrite Ql (U) Nitrite [Presence] i n Urine by Test strip Negative [facility] Nitrite Ql (U) Negative Negative [facility] No Panel InformationOrdered By: Loraine Mccallum on 03-13-2025 Estimated GFR (CKD-EPI) > 60.0 mL/Min [facility] Creatinine Clearance (Chem 46.20 [facility] Nucleated erythrocytes [Pres ence] in Blood by Automated countOrdered By: Loraine Mccallum on 03-13-2025 Nucleated RBC Auto Ql (Bld) Nucleated erythrocytes [Presence] in Blood by Automated count 0-0.5 [facility] Platelet mean volume Auto (B ld) [Entitic vol]Ordered By: Loraine Mccallum on 03-13-2025 Platelet mean volume (Bld) [Entitic vol] Platelet mean volume [Entitic volume] in Blood by Automated count 6.3-10.7 [facility] Platelets Auto (Bld) [#/Vol] Ordered By: Loraine Mccallum on 03-13-2025 Platelets (Bld) [#/Vol] Platelets [#/vol ume] in Blood by Automated count 150-450 [facility] Potassium [Moles/volume] in Serum or PlasmaOrdered By: Loraine Mccallum on 03-13-2025 Potassium [Moles/Vol] Potassium [Moles/v olume] in Serum or Plasma 3.5-5.1 [facility] Potassium [Moles/Vol] 3.7 mmol/L Normal 3.5-5.1 [facility] Comment on above: Performed By: #### M G #### [facility] [address] Protein Test strip (U) [Mass /Vol]Ordered By: Loraine Mccallum on 03-13-2025 Protein (U) [Mass/Vol] Protein [Mass/vol ume] in Urine by Test strip High Negative [facility] Protein [Mass/volume] in Uri ne by Test stripOrdered By: Loraine Mccallum on 03-13-2025 Protein (U) [Mass/Vol] 30 mg/dL High Negative [facility] Comment on above: Order Comment: Name Collection Type:: Clean-Voided Midstream Performed By: #### G BALJEET #### Point of Care testing , RBC Auto (Bld) [#/Vol]Ordere d By: Loraine Mccallum on 03-13-2025 RBC (Bld) [#/Vol] Erythrocytes [#/volu me] in Blood by Automated count 3.60-5.00 [facility] Respiratory (Upper) Panel, P CRon [...] A H3 Blank Space -- PERFORMED BY: [place] [address] PATHOLOGIST PART[employer] PICKER ROZ MAE M.D. Normal [facility] Comment on above: Performed By: #### R WIL PANEL UPP., BIOFIRECOVNOTDE #### [address] Respiratory pathogens DNA an d RNA panel - Nasopharynx by JAYRO with non-probe detectionOrdered By: Loraine Mccallum on 03-13-2025 Respiratory pathogens DNA and RNA panel JAYRO+non-probe (Nph) Respiratory pathogens DNA and RNA panel - Nasopharynx by JAYRO with non-probe detection [facility] Respiratory pathogens DNA and RNA panel JAYRO+non-probe (Nph) [facility] Serum or plasma anion gap de terminationOrdered By: Loraine Mccallum on 03-13-2025 Anion gap [Moles/Vol] Serum or plasma an ion gap determination 6.0-15.0 [facility] Anion gap [Moles/Vol] 11.2 mmol/L Normal 6.0-15.0 [facility] Comment on above: Performed By: #### M G #### [address] Sodium [Moles/volume] in Ser um or PlasmaOrdered By: Loraine Mccallum on 03-13-2025 Sodium [Moles/Vol] Sodium [Moles/volume ] in Serum or Plasma 136-145 [facility] Sodium [Moles/Vol] 138 mmol/L Normal 136-145 [facility] Comment on above: Performed By: #### M G #### [address] Specific gravity Test strip (U) [Rel density]Ordered By: Loraine Mccallum on 03-13-2025 Specific gravity (U) [Rel density] Specific gravity of Urine by Test strip High 1.001-1.03 0 [facility] Specific gravity (U) [Rel density] 1.032 High 1.001-1.03 0 [facility] Troponin I High Sensitivityo n 03-13-2025 Troponin I High Sensitivity 437 Off scale high 0-15 [facility] Comment on above: Result Comment: Aravind ical Result : Called to and read back by: ULI LOPES at: 03/13/2025 23:56:50 by:[id number] The Troponin units of report have been changed to meet the Chest Pain Accreditation requirement, element EC5.M1l2. Troponin units are changed from pg/ml to ng/L. Also, the decimal is removed and results are in whole numbers. PERFORMED BY: [place] [address] PATHOLOGIST [employer] PICKER ROZ MAE M.D. Performed By: #### M G #### [facility] [address] [place] [address] Urea nitrogen [Mass/volume] in Serum or PlasmaOrdered By: Loraine Mccallum on 03-13-2025 Urea nitrogen [Mass/Vol] Urea nitrogen [Mass/volume] in Serum or Plasma High 7-25 [facility] Urea nitrogen [Mass/Vol] 26 mg/dL [facility] -25 [facility] Comment on above: Performed By: #### M G #### [facility] [address] [place] [address] Urine Cultureon 03-13-2025 Bacteria identified Cx Nom (U) >100,000 colonies/ml mixed bacterial skin contaminants 2 Days PERFORMED BY: [place] [address] PATHOLOGIST [employer] PICKER ROZ MAE M.D. Normal [facility] Comment on above: Performed By: #### M G #### [facility] [address] [place] [address] Urine cultureOrdered By: Brandon Mccallum on 03-13-2025 Bacteria identified Cx Nom (U) 2 Days [facility] Urobilinogen Test strip (U) [Mass/Vol]Ordered By: Loraine Mccallum on 03-13-2025 Urobilinogen (U) [Mass/Vol] Urobilinogen [Mass/volume] in Urine by Test strip Normal [facility] Urobilinogen (U) [Mass/Vol] Normal mg/dL Normal [facility] WBC Auto (Bld) [#/Vol]Ordere d By: Loraine Mccallum on 03-13-2025 WBC (Bld) [#/Vol] Leukocytes [#/volume ] in Blood by Automated count 3.8-11.6 [facility] X-ray reportOrdered By: Jose Muñoz on 03-13-2025 Study report [facility] [place] [address] XRay Report Signed Patient: Karuna Reynaga MR#: [id number] : 1945 Acct:[id number] Age/Sex: 80 / F ADM Date: 5 [...] Muñoz M.D. 03/13/2025 7:19 PM Dictation Location: [place] [address] Transcribed By: [facility] 03/13/251918 Dictated By: Jose Muñoz II, MD 03/13/251917 Signed By: 03/13/251918 [facility] Work Phone: XR chest 2V*on 03-13-2025 XR chest 2V* [facility] Main [place] [address] [place] [address] XRay Report Signed Patient: Karuna Reynaga MR#: [id number] : 1945 Acct:[id number] Age/Sex: 80 / F ADM Date: 03/13/25 Loc: ER Room: Type: PRE ER Attending Dr: Copies to: Ed Canales PA-C TEMP, PROVIDER Ordering Provider: Ed Canales PA-C Date [...] Muñoz M.D. 03/13/2025 7:19 PM Dictation Location: [place] [address] Transcribed By: [facility] 03/13/251918 Dictated By: Jose Muñoz II, MD 03/13/251917 Signed By: 03/13/251918 Normal [facility] pH Test strip (U)Ordered By: Loraine Mccallum on 03-13-2025 pH (U) pH of Urine by Test strip 5.0-9.0 [facility] pH of Urine by Test stripOrd ered By: Loraine Mccallum on 03-13-2025 pH (U) 5.5 [pH] Normal 5.0-9.0 [facility] Comment on above: Order Comment: Name Collection Type:: Clean-Voided Midstream Performed By: #### G LULS #### Point of Care testing , Urine Cultureon 02-25-2025 Bacteria identified Cx Nom (U) 10,000 colonies/ml mixed bacterial skin contaminants 2 Days PERFORMED BY: [place] [address] PATHOLOGIST [employer] P[employer] ROZ MAE M.D. Normal [facility] Comment on above: Performed By: #### M G #### [address] Urine cultureOrdered By: Shahzad Alvarez on 02-25-2025 Bacteria identified Cx Nom (U) Urine culture [facility] Bacteria identified Cx Nom (U) 2 Days [facility] Hemoglobin a1c with eagon Glucose [Mass/Vol] 126 mg/dL [facility] HbA1c (Bld) [Mass fraction] 6 % High 4.3 - 5.6 % [facility] Comment on above: Increased risk for d iabetes: 5.7 - 6.4 diabetes: >6.4 glycemic control for adults with diabetes: <7.0 Interpretation and review of laboratory results Abnormal [facility] A1C with Estimated Average G luon 02-06-2025 Glucose [Mass/Vol] 126 mg/dL Normal [facility] Comment on above: Result Comment: PERF ORMED BY: [place] [address] PATHOLOGIST [employer] P[employer]ER ROZ MAE M.D. Performed By: #### M G #### [place] [address] [place] Alanine aminotransferase [En zymatic activity/volume] in Serum or PlasmaOrdered By: Jamal Alvarez on 02-06-2025 ALT [Catalytic activity/Vol] Alanine aminotransferase [Enzymatic activity/volume] in Serum or Plasma [facility] ALT [Catalytic activity/Vol] 15 U/L Normal [facility] Comment on above: Performed By: #### C BC, HS TROP #### [place] [address] [place] Albumin [Mass/volume] in Ser um or Plasma by Bromocresol green (BCG) dye binding methoOrdered By: Jamal Alvarez on 02-06-2025 Albumin BCG dye [Mass/Vol] Albumin [Mass/volume] in Serum or Plasma by Bromocresol green (BCG) dye binding metho 3.5-5.7 [facility] Albumin BCG dye [Mass/Vol] 4.2 g/dL 3.5-5.7 [facility] Alkaline phosphatase [Enzyma tic activity/volume] in Serum or PlasmaOrdered By: Jamal Alvarez on 02-06-2025 ALP [Catalytic activity/Vol] Alkaline phosphatase [Enzymatic activity/volume] in Serum or Plasma 34-104 [facility] ALP [Catalytic activity/Vol] 64 U/L Normal 34-104 [facility] Comment on above: Performed By: #### C BC, HS TROP #### [address] Aspartate aminotransferase [ Enzymatic activity/volume] in Serum or PlasmaOrdered By: Jamal Alvaerz on 02-06-2025 AST [Catalytic activity/Vol] Aspartate aminotransferase [Enzymatic activity/volume] in Serum or Plasma 13-39 [facility] AST [Catalytic activity/Vol] 16 U/L Normal 13-39 [facility] Comment on above: Performed By: #### C BC, HS TROP #### [address] Basophils Auto (Bld) [#/Vol] Ordered By: Jamal Alvarez on 02-06-2025 Basophils (Bld) [#/Vol] Automated basophil count 0.0-0.2 [facility] Basophils [#/volume] in Bloo d by Automated countOrdered By: Jamal Alvarez on 02-06-2025 Basophils (Bld) [#/Vol] 0.1 10*3/uL Normal 0.0-0.2 [facility] Comment on above: Result Comment: PERF ORMED BY: [place] [address] PATHOLOGIST [employer] P[employer]ER ROZ MAE M.D. Performed By: #### C BC, HS TROP #### [address] Basophils/100 WBC Auto (Bld) Ordered By: Jamal Alvarez on 02-06-2025 Basophils/100 WBC (Bld) Automated basophil % . [facility] Basophils/100 leukocytes in Blood by Automated countOrdered By: Jamal Alvarez on 02-06-2025 Basophils/100 WBC (Bld) 0.9 % Normal . [facility] Comment on above: Performed By: #### C BC, HS TROP #### [facility] [address] Bilirubin.total [Mass/volume ] in Serum or PlasmaOrdered By: Jamal Alvarez on 02-06-2025 Bilirubin [Mass/Vol] Bilirubin.total [Mass/volume] in Serum or Plasma 0.3-1.0 [facility] Bilirubin [Mass/Vol] 0.4 mg/dL Normal 0.3-1.[address] [facility] Comment on above: Performed By: #### C BC, HS TROP #### [facility] [address] Blood estimated average gluc ose determination by estimation from glycated hemoglobinOrdered By: JOSE LUIS LOCKHART on 02-06-2025 Average glucose Estimated from glycated hemoglobin (Bld) [Mass/Vol] Glucose mean value [Mass/volume] in Blood Estimated from glycated hemoglobin [facility] Average glucose Estimated from glycated hemoglobin (Bld) [Mass/Vol] 126 mg/dL [facility] CBC W Auto Differential pane l (Bld)on 02-06-2025 Basophils (Bld) [#/Vol] 0.1 10*3/uL 0.0 - 0.2 10*3/uL [facility] Basophils/100 WBC Manual cnt (Syn fld) 0.9 % . [facility] Eosinophils (Bld) [#/Vol] 0.3 10*3/uL 0.0 - 0.45 10*3/uL [facility] Eosinophils/100 WBC Manual cnt (Syn fld) 4.4 % . [facility] Erythrocyte distribution width (RBC) [Ratio] 13.2 % 11.9 - 15.3 % [facility] Hematocrit (Bld) [Volume fraction] 40.2 % 34.0 - 46.4 % [facility] Hemoglobin (Bld) [Mass/Vol] 13.4 g/dL 11.8 - 15.4 g/dL [facility] Lymphocytes (Bld) [#/Vol] 1.8 10*3/uL 1.00 - 4.8 10*3/uL [facility] Lymph[facility] WBC Manual cnt (Syn fld) 29.1 % . [facility] MCH (RBC) [Entitic mass] 29.9 pg 24.7 - 34.3 pg [facility] MCHC (RBC) [Mass/Vol] 33.4 g/dL 32.0 - 35.0 g/dL [facility] MCV (RBC) [Entitic vol] 89.7 fL 80 - 100 fL [facility] Monocytes (Bld) [#/Vol] 0.3 10*3/uL 0.0 - 0.8 10*3/uL [facility] Monocytes+Macrophages/1 00 WBC Manual cnt (Syn fld) 4.9 % . [facility] Neutrophils (Bld) [#/Vol] 3.8 10*3/uL 1.8 - 7.7 10*3/uL [facility] Neutrophils/100 WBC Manual cnt (Syn fld) 60.7 % . [facility] NRBC 0.1 /100{WBC} 0 - 0.5 /100{WBC} [facility] Platelet mean volume (Bld) [Entitic vol] 8.6 fL 6.3 - 10.7 fL [facility] Platelets (Bld) [#/Vol] 264 10*3/uL 150 - 450 10*3/uL [facility] RBC LM.HPF (Urine sed) [#/Area] 4.48 10*6/uL 3.60 - 5.00 10*6/uL [facility] WBC (Bld) [#/Vol] 6.3 10*3/uL 3.8 - 11.6 10*3/uL [facility] WBC LM.HPF (Urine sed) [#/Area] 6.3 10*3/uL 3.8 - 11.6 10*3/uL [facility] Calcium [Mass/volume] in Ser um or PlasmaOrdered By: Jamal Alvarez on 02-06-2025 Calcium [Mass/Vol] Calcium [Mass/volume ] in Serum or Plasma 8.6-10.3 [facility] Calcium [Mass/Vol] 9.3 mg/dL Normal 8.6-10.3 [facility] Comment on above: Performed By: #### C BC, HS TROP #### [facility] [address] [place] [address] [place] Carbon dioxide, total [Moles /volume] in Serum or PlasmaOrdered By: Jamal Alvarez on 02-06-2025 CO2 [Moles/Vol] Carbon dioxide, tota l [Moles/volume] in Serum or Plasma 21.0-31.0 [facility] CO2 [Moles/Vol] 30.4 mmol/L Normal 21.0-31.0 [facility] Comment on above: Performed By: #### C BC, HS TROP #### [address] Chloride [Moles/volume] in S sun or PlasmaOrdered By: Jamal Alvarez on 02-06-2025 Chloride [Moles/Vol] Chloride [Moles/vol ume] in Serum or Plasma 98-107 [facility] Chloride [Moles/Vol] 103 mmol/L Normal 98-[address] [facility] Comment on above: Performed By: #### C BC, HS TROP #### [facility] [address] [place] [address] [place] Cholesterol [Mass/volume] in Serum or PlasmaOrdered By: Jamal Alvarez on 02-06-2025 Cholesterol [Mass/Vol] Cholesterol [Mass /volume] in Serum or Plasma 140-200 [facility] Comment on above: Chol less than 200 m g/dl low riskChol 201-239 mg/dl borderline riskChol 240 mg/dl and greater high risk Cholesterol [Mass/Vol] 175 mg/dL Normal 140-200 [facility] Comment on above: Chol less than 200 m g/dl low riskChol 201-239 mg/dl borderline riskChol 240 mg/dl and greater high risk Result Comment: Chol less than 200 mg/dl low risk Chol 201-239 mg/dl borderline risk Chol 240 mg/dl and greater high risk Performed By: #### C BC, HS TROP #### [facility] [address] [place] [address] [place] Cholesterol in HDL [Mass/vol ume] in Serum or PlasmaOrdered By: Jamal Alvarez on 02-06-2025 Cholesterol in HDL [Mass/Vol] Serum or plasma high density lipoprotein (HDL) cholesterol measurement [facility] Comment on above: HDL CHOL ATP-III CLA SSIFICATION Cardiovascular RiskHDL > or equal to 60 mg/dL LOWHDL < 40 mg/dL HIGH Cholesterol in HDL [Mass/Vol] 72 mg/dL Normal [facility] Comment on above: HDL CHOL ATP-III CLA SSIFICATION Cardiovascular RiskHDL > or equal to 60 mg/dL LOWHDL < 40 mg/dL HIGH Result Comment: HDL CHOL ATP-III CLASSIFICATION Cardiovascular Risk HDL > or equal to 60 mg/dL LOW HDL < 40 mg/dL HIGH Performed By: #### C BC, HS TROP #### [address] [address] [facility] Cholesterol in LDL Calc [Mas s/Vol]Ordered By: Jamal Alvarez on 02-06-2025 Cholesterol in LDL [Mass/Vol] Cholesterol in LDL [Mass/volume] in Serum or Plasma by calculation 0 [facility] Comment on above: LDL ATP III CLASSIFI CATIONLDL less than 100 mg/dL OptimalLDL 100-129 mg/dL Near or above optimalLDL 130-159 mg/dL Borderline highLDL 160-189 mg/dL HighLDL greater than 189 mg/dL Very high Cholesterol in LDL [Mass/Vol] 84 mg/dL 0-100 [facility] Comment on above: LDL ATP III CLASSIFI CATIONLDL less than 100 mg/dL OptimalLDL 100-129 mg/dL Near or above optimalLDL 130-159 mg/dL Borderline highLDL 160-189 mg/dL HighLDL greater than 189 mg/dL Very high Cholesterol in VLDL Calc [Ma ss/Vol]Ordered By: Jamal Alvarez on 02-06-2025 Cholesterol in VLDL [Mass/Vol] Cholesterol in VLDL [Mass/volume] in Serum or Plasma by calculation [facility] Cholesterol in VLDL [Mass/Vol] 18 mg/dL [facility] Complete Blood Count Auto Di ffon 02-06-2025 Mean Corpuscular HGB Conc 33.4 g/dL Normal 32.0-35.0 [facility] Comment on above: Performed By: #### C BC, HS TROP #### [facility] [address] NRBC% 0.1 /100{WBC} Normal 0-0.5 [facility] Comment on above: Performed By: #### C BC, HS TROP #### [facility] [address] Comprehensive Metabolic Pane [facility] 02-06-2025 Albumin [Mass/Vol] 4.2 g/dL Normal 3.5-5.7 [facility] Comment on above: Performed By: #### C BC, HS TROP #### [facility] [address] GFR/1.73 sq M.predicted MDRD (S/P/Bld) [Vol rate/Area] mL/min/{1.73_m2} Normal [facility] Comment on above: Performed By: #### C BC, HS TROP #### [facility] [address] Comprehensive metabolic pane [facility] 02-06-2025 Albumin [Mass/Vol] 4.2 g/dL 3.5 - 5.7 g/dL [facility] Albumin/Globulin [Mass ratio] 1.4 {ratio} [facility] ALP [Catalytic activity/Vol] 64 U/L 34 - 104 U/L [facility] ALT [Catalytic activity/Vol] 15 U/L 7 - 52 U/L [facility] Anion gap [Moles/Vol] 10.9 mmol/L 6.0 - 15.0 meq/L [facility] AST [Catalytic activity/Vol] 16 U/L 13 - 39 U/L [facility] Bilirubin [Mass/Vol] 0.4 mg/dL 0.3 - 1 .0 mg/dL [facility] Calcium [Mass/Vol] 9.3 mg/dL 8.6 - 10. 3 mg/dL [facility] Chloride [Moles/Vol] 103 mmol/L 98 - 10 7 mmol/L [facility] CO2 [Moles/Vol] 30.4 mmol/L 21.0 - 31.0 mmol/L [facility] Creatinine (U) [Mass/Vol] 0.67 mg/dL 0.60 - 1.20 mg/dL [facility] ESTIMATED GFR mL/Min [facility] Globulin (S) [Mass/Vol] 2.9 g/dL N [facility] Glucose [Mass/Vol] 96 mg/dL 70 - 100 mg/dL [facility] Comment on above: Random Glucose Refer ence Range is dependent on time and content of last meal. Glucose of more than 200 mg/dL in a nonstressed, ambulatory subject supports the diagnosis of Diabetes Mellitus. ADA recommended reference range Potassium [Moles/Vol] 4.3 mmol/L 3.5 - 5.1 mmol/L [facility] Protein [Mass/Vol] 7.1 g/dL 6.4 - 8.9 g/dL [facility] Sodium [Moles/Vol] 140 mmol/L 136 - 145 mmol/L [facility] Urea nitrogen [Mass/Vol] 17 mg/dL 7 - 25 mg/dL [facility] Creatinine [Mass/volume] in Serum or PlasmaOrdered By: Jamal Alvarez on 02-06-2025 Creatinine [Mass/Vol] Creatinine [Mass/v olume] in Serum or Plasma 0.60-1.20 [facility] Creatinine [Mass/Vol] 0.67 mg/dL Normal 0.60-1.20 [facility] Comment on above: Performed By: #### C , HS TROP #### [address] Creatinine [Mass/volume] in UrineOrdered By: Jamal Alvarez on 02-06-2025 Creatinine (U) [Mass/Vol] Creatinine [Mass/volume] in Urine [facility] Comment on above: No reference range e stablished Creatinine (U) [Mass/Vol] 52.00 mg/dL [facility] Comment on above: No reference range e stablished Eosinophils Auto (Bld) [#/Vo l]Ordered By: Jamal Alvarez on 02-06-2025 Eosinophils (Bld) [#/Vol] Automated eosinophil count 0.0-0.45 [facility] Eosinophils [#/volume] in Bl ood by Automated countOrdered By: Jamal Alvarez on 02-06-2025 Eosinophils (Bld) [#/Vol] 0.3 10*3/uL Normal 0.0-0.45 [facility] Comment on above: Performed By: #### C BC, HS TROP #### [facility] [address] Eosinophils/100 WBC Auto (Bl d)Ordered By: Jamal Alvarez on 02-06-2025 Eosinophils/100 WBC (Bld) Automated eosinophil % . [facility] Eosinophils/100 leukocytes i n Blood by Automated countOrdered By: Jamal Alvarez on 02-06-2025 Eosinophils/100 WBC (Bld) 4.4 % Normal . [facility] Comment on above: Performed By: #### C BC, HS TROP #### [facility] [address] Erythrocyte distribution wid th Auto (RBC) [Ratio]Ordered By: Jamal Alvarez on 02-06-2025 Erythrocyte distribution width (RBC) [Ratio] Erythrocyte distribution width [Ratio] by Automated count 11.9-15.3 [facility] Erythrocyte distribution wid th [Ratio] by Automated countOrdered By: Jamal Alvarez on 02-06-2025 Erythrocyte distribution width (RBC) [Ratio] 13.2 % Normal 11.9-15.3 [facility] Comment on above: Performed By: #### C BC, HS TROP #### [address] Erythrocytes [#/volume] in B lood by Automated countOrdered By: Jamal Alvarez on 02-06-2025 RBC (Bld) [#/Vol] 4.48 10*6/uL Normal 3.60-5.00 [facility] Comment on above: Performed By: #### C BC, HS TROP #### [address] Globulin Calc (S) [Mass/Vol] Ordered By: Jamal Alvarez on 02-06-2025 Globulin (S) [Mass/Vol] Serum globulin m easurement by calculation (mass/volume) [facility] Glucose [Mass/volume] in Ser um or PlasmaOrdered By: Jamal Alvarez on 02-06-2025 Glucose [Mass/Vol] Glucose [Mass/volume ] in Serum or Plasma 70-100 [facility] Comment on above: ADA recommended refe rence rangeRandom Glucose Reference Range is dependent on time and content of last meal. Glucose of more than 200 mg/dL in a nonstressed, ambulatory subject supports the diagnosis of Diabetes Mellitus. Glucose [Mass/Vol] 96 mg/dL Normal 70-100 [facility] Comment on above: ADA recommended refe rence rangeRandom Glucose Reference Range is dependent on time and content of last meal. Glucose of more than 200 mg/dL in a nonstressed, ambulatory subject supports the diagnosis of Diabetes Mellitus. Result Comment: [place] om Glucose Reference Range is dependent on time and content of last meal. Glucose of more than 200 mg/dL in a nonstressed, ambulatory subject supports the diagnosis of Diabetes Mellitus. ADA recommended reference range Performed By: #### C BC, HS TROP #### [facility] [address] Hematocrit Auto (Bld) [Volum e fraction]Ordered By: Jamal Alvarez on 02-06-2025 Hematocrit (Bld) [Volume fraction] Hematocrit [Volume Fraction] of Blood by Automated count 34.0-46.4 [facility] Hematocrit [Volume Fraction] of Blood by Automated countOrdered By: Jamal Alvarez on 02-06-2025 Hematocrit (Bld) [Volume fraction] 40.2 % Normal 34.0-46.4 [facility] Comment on above: Performed By: #### C BC, HS TROP #### [facility] [address] [place] [address] [place] Hemoglobin A1c/Hemoglobin.to maty in BloodOrdered By: JOSE LUIS LOCKHART on 02-06-2025 HbA1c (Bld) [Mass fraction] Hemoglobin A1c percentage High 4.3-5.6 [facility] Comment on above: Increased risk for d iabetes: 5.7 - 6.4diabetes: >6.4glycemic control for adults with diabetes: <7.0 HbA1c (Bld) [Mass fraction] 6.0 % High 4.3-5.6 [facility] Comment on above: Increased risk for d iabetes: 5.7 - 6.4diabetes: >6.4glycemic control for adults with diabetes: <7.0 Result Comment: Incr eased risk for diabetes: 5.7 - 6.4 diabetes: >6.4 glycemic control for adults with diabetes: <7.0 Performed By: #### M G #### [facility] [address] Hemoglobin [Mass/volume] in BloodOrdered By: Jamal Alvarez on 02-06-2025 Hemoglobin (Bld) [Mass/Vol] Hemoglobin [Mass/volume] in Blood 11.8-15.4 [facility] Hemoglobin (Bld) [Mass/Vol] 13.4 g/dL Normal 11.8-15.4 [facility] Comment on above: Performed By: #### C PENNY, HS TROP #### [address] Leukocytes [#/volume] correc rob for nucleated erythrocytes in Blood by Automated counOrdered By: Jamal Alvarez on 02-06-2025 WBC corrected for nucl RBC Auto (Bld) [#/Vol] Leukocytes [#/volume] corrected for nucleated erythrocytes in Blood by Automated coun 3.8-11.6 [facility] WBC corrected for nucl RBC Auto (Bld) [#/Vol] 6.3 10*3/uL 3.8-11.6 [facility] Leukocytes [#/volume] in Blo od by Automated countOrdered By: Jamal Alvarez on 02-06-2025 WBC (Bld) [#/Vol] 6.3 10*3/uL Normal 3.8-11.6 [facility] Comment on above: Performed By: #### C BC, HS TROP #### [address] Lipid 1996 panelon Cholesterol [Mass/Vol] 175 mg/dL 140 - 200 mg/dL [facility] Comment on above: Chol less than 200 m g/dl low risk Chol 201-239 mg/dl borderline risk Chol 240 mg/dl and greater high risk Cholesterol in HDL [Mass/Vol] 72 mg/dL 23 - 92 mg/dL [facility] Comment on above: HDL CHOL ATP-III CLA SSIFICATION Cardiovascular Risk HDL > or equal to 60 mg/dL LOW HDL < 40 mg/dL HIGH Cholesterol.total/[place] sterol in HDL [Mass ratio] 2.4 {ratio} NINF - 5.0 [facility] LDL CHOLESTEROL,CALCULATED 84 mg/dL 0 - 100 mg/dL [facility] Comment on above: LDL ATP III CLASSIFI CATION LDL less than 100 mg/dL Optimal LDL 100-129 mg/dL Near or above optimal LDL 130-159 mg/dL Borderline high LDL 160-189 mg/dL High LDL greater than 189 mg/dL Very high Magnesium [Mass/Vol] 18 mg/dL [facility] TRIGLYCERIDE W/REFLEX 94 mg/dL 0 - 14 9 mg/dL [facility] Comment on above: TRIG ATP III CLASSIF ICATION TRIG less than 150 mg/dL Normal TRIG 150-199 mg/dL Borderline high TRIG 200-500 mg/dL High TRIG greater than 500 mg/dL Very high Standard traceable to the Center for Disease Conrtrol and Prevention (CDC) test method. Lipid Panelon 02-06-2025 LDL Cholesterol,Calculated 84 mg/dL Normal 0-100 [facility] Comment on above: Result Comment: LDL ATP III CLASSIFICATION LDL less than 100 mg/dL Optimal LDL 100-129 mg/dL Near or above optimal LDL 130-159 mg/dL Borderline high LDL 160-189 mg/dL High LDL greater than 189 mg/dL Very high Performed By: #### C BC, HS TROP #### [facility] [address] Triglyceride w/Reflex 94 mg/dL Normal 0-149 [facility] Comment on above: Result Comment: TRIG ATP III CLASSIFICATION TRIG less than 150 mg/dL Normal TRIG 150-199 mg/dL Borderline high TRIG 200-500 mg/dL High TRIG greater than 500 mg/dL Very high Standard traceable to the Center for Disease Conrtrol and Prevention (CDC) test method. Performed By: #### C BC, HS TROP #### [facility] [address] VLDL CHOLESTEROL 18 mg/dL Normal [facility] Comment on above: Performed By: #### C BC, HS TROP #### [facility] [address] [place] [address] [place] Lymphocytes Auto (Bld) [#/Vo l]Ordered By: Jamal Alvarez on 02-06-2025 Lymphocytes (Bld) [#/Vol] Lymphocytes [#/volume] in Blood by Automated count 1.00-4.8 [facility] Lymphocytes [#/volume] in Bl ood by Automated countOrdered By: Jamal Alvarez on 02-06-2025 Lymphocytes (Bld) [#/Vol] 1.8 10*3/uL Normal 1.00-4.8 [facility] Comment on above: Performed By: #### C BC, HS TROP #### [facility] [address] Lymphocytes/100 WBC Auto (Bl d)Ordered By: Jamal Alvarez on 02-06-2025 Lymphocytes/100 WBC (Bld) Lymphocytes/100 leukocytes in Blood by Automated count . [facility] Lymphocytes/100 leukocytes i n Blood by Automated countOrdered By: Jamal Alvarez on 02-06-2025 Lymphocytes/100 WBC (Bld) 29.1 % Normal . [facility] Comment on above: Performed By: #### C BC, HS TROP #### [facility] [address] [place] [address] MCH Auto (RBC) [Entitic mass ]Ordered By: Jamal Alvarez on 02-06-2025 MCH (RBC) [Entitic mass] MCH [Entitic mass] by Automated count 24.7-34.3 [facility] MCH [Entitic mass] by Automa rob countOrdered By: Jamal Alvarez on 02-06-2025 MCH (RBC) [Entitic mass] 29.9 pg Normal 24.7-34.3 [facility] Comment on above: Performed By: #### C BC, HS TROP #### [facility] [address] MCHC Auto (RBC) [Mass/Vol]Or dered By: Jamal Alvarez on 02-06-2025 MCHC (RBC) [Mass/Vol] MCHC [Mass/volume] by Automated count 32.0-35.0 [facility] MCHC (RBC) [Mass/Vol] 33.4 g/dL 32.0-35.0 [facility] MCV Auto (RBC) [Entitic vol] Ordered By: Jamal Alvarez on 02-06-2025 MCV (RBC) [Entitic vol] MCV [Entitic vol ume] by Automated count 80-100 [facility] MCV [Entitic volume] by Auto mated countOrdered By: Jamal Alvarez on 02-06-2025 MCV (RBC) [Entitic vol] 89.7 fL Normal 80-100 [facility] Comment on above: Performed By: #### C BC, HS TROP #### [facility] [address] MicroAlb Creat Ratio,Uon Creatinine, Urine (Random) 52.00 mg/dL Normal [facility] Comment on above: Result Comment: No r eference range established Performed By: #### C BC, HS TROP #### [facility] [address] Microalbumin/Creatinine Ratio Not performed Normal 0.0-30.0 [facility] Comment on above: Result Comment: PERF ORMED BY: [place] [address] PATHOLOGIST [employer] MAE M.D. Performed By: #### C BC, HS TROP #### [facility] [address] Microalbumin [Mass/volume] i n UrineOrdered By: Jamal Alvarez on 02-06-2025 Albumin DL <= 20 mg/L (U) [Mass/Vol] Microalbumin [Mass/volume] in Urine 0.0-1.8 [facility] Albumin DL <= 20 mg/L (U) [Mass/Vol] mg/dL Normal 0.0-1.8 [facility] Comment on above: Performed By: #### C BC, HS TROP #### [facility] [address] [place] [address] [place] Microalbumin/Creatinine rati o panel (U)on 02-06-2025 Albumin [Mass/Vol] mg/dL 0.0 - 1.8 mg/dL [facility] Creatinine spec 2 (U) [Mass/Vol] 52 mg/dL [facility] Comment on above: No reference range e stablished MICROALBUMIN/CREATININE RATIO Not performed 0.0 - 30.0 [facility] Monocytes Auto (Bld) [#/Vol] Ordered By: Jamal Alvarez on 02-06-2025 Monocytes (Bld) [#/Vol] Automated blood monocyte count 0.0-0.8 [facility] Monocytes [#/volume] in Bloo d by Automated countOrdered By: Jamal Alvarez on 02-06-2025 Monocytes (Bld) [#/Vol] 0.3 10*3/uL Normal 0.0-0.8 [facility] Comment on above: Performed By: #### C BC, HS TROP #### [facility] [address] [place] [address] [place] Monocytes/100 WBC Auto (Bld) Ordered By: Jamal Alvarez on 02-06-2025 Monocytes/100 WBC (Bld) Automated monocyte % . [facility] Monocytes/100 leukocytes in Blood by Automated countOrdered By: Jamal Alvarez on 02-06-2025 Monocytes/100 WBC (Bld) 4.9 % Normal . [facility] Comment on above: Performed By: #### C BC, HS TROP #### [facility] [address] [place] [address] [place] Neutrophils Auto (Bld) [#/Vo l]Ordered By: Jamal Alvarez on 02-06-2025 Neutrophils (Bld) [#/Vol] Neutrophils [#/volume] in Blood by Automated count 1.8-7.7 [facility] Neutrophils [#/volume] in Bl ood by Automated countOrdered By: Jamal Alvarez on 02-06-2025 Neutrophils (Bld) [#/Vol] 3.8 10*3/uL Normal 1.8-7.7 [facility] Comment on above: Performed By: #### C BC, HS TROP #### [facility] [address] [place] [address] [place] Neutrophils/100 WBC Auto (Bl d)Ordered By: Jamal Alvarez on 02-06-2025 Neutrophils/100 WBC (Bld) Automated neutrophil % . [facility] Neutrophils/100 leukocytes i n Blood by Automated countOrdered By: Jamal Alvarez on 02-06-2025 Neutrophils/100 WBC (Bld) 60.7 % Normal . [facility] Comment on above: Performed By: #### C BC, HS TROP #### [facility] [address] No Panel Informationon 02-06 [facility] No Panel InformationOrdered By: Jamal Alvarez on 02-06-2025 Estimated GFR (CKD-EPI) > 60.0 mL/Min [facility] Creatinine Clearance (Chem N/A [facility] Nucleated erythrocytes [Pres ence] in Blood by Automated countOrdered By: Jamal Alvarez on 02-06-2025 Nucleated RBC Auto Ql (Bld) Nucleated erythrocytes [Presence] in Blood by Automated count 0-0.5 [facility] Nucleated RBC Auto Ql (Bld) 0.1 /100{WBC} 0-0.5 [facility] Platelet mean volume Auto (B ld) [Entitic vol]Ordered By: Jamal Alvarez on 02-06-2025 Platelet mean volume (Bld) [Entitic vol] Platelet mean volume [Entitic volume] in Blood by Automated count 6.3-10.7 [facility] Platelet mean volume [Entiti c volume] in Blood by Automated countOrdered By: Jamal Alvarez on 02-06-2025 Platelet mean volume (Bld) [Entitic vol] 8.6 fL Normal 6.3-10.7 [facility] Comment on above: Performed By: #### C BC, HS TROP #### [facility] [address] [place] [address] [place] Platelets Auto (Bld) [#/Vol] Ordered By: Jamal Alvarez on 02-06-2025 Platelets (Bld) [#/Vol] Platelets [#/vol ume] in Blood by Automated count 150-450 [facility] Platelets [#/volume] in Bloo d by Automated countOrdered By: Jamal Alvarez on 02-06-2025 Platelets (Bld) [#/Vol] 264 10*3/uL Normal 150-450 [facility] Comment on above: Performed By: #### C BC, HS TROP #### [facility] [address] Potassium [Moles/volume] in Serum or PlasmaOrdered By: Jamal Alvarez on 02-06-2025 Potassium [Moles/Vol] Potassium [Moles/v olume] in Serum or Plasma 3.5-5.1 [facility] Potassium [Moles/Vol] 4.3 mmol/L Normal 3.5-5.1 [facility] Comment on above: Performed By: #### C BC, HS TROP #### [facility] [address] Protein [Mass/volume] in Ser um or PlasmaOrdered By: Jamal Alvarez on 02-06-2025 Protein [Mass/Vol] Protein [Mass/volume ] in Serum or Plasma 6.4-8.9 [facility] Protein [Mass/Vol] 7.1 g/dL Normal 6.4-8.9 [facility] Comment on above: Performed By: #### C BC, HS TROP #### [facility] [address] RBC Auto (Bld) [#/Vol]Ordere d By: Jamal Alvarez on 02-06-2025 RBC (Bld) [#/Vol] Erythrocytes [#/volu me] in Blood by Automated count 3.60-5.00 [facility] Serum globulin measurement b y calculation (mass/volume)Ordered By: Jamal Alvarez on 02-06-2025 Globulin (S) [Mass/Vol] 2.9 g/dL Normal [facility] Comment on above: Performed By: #### C BC, HS TROP #### [facility] [address] Serum or plasma albumin/glob ulin mass ratioOrdered By: Jamal Alvarez on 02-06-2025 Albumin/Globulin [Mass ratio] Serum or plasma albumin/globulin mass ratio [facility] Albumin/Globulin [Mass ratio] 1.4 {ratio} Normal [facility] Comment on above: Performed By: #### C BC, HS TROP #### [facility] [address] Serum or plasma anion gap de terminationOrdered By: Jamal Alvarez on 02-06-2025 Anion gap [Moles/Vol] Serum or plasma an ion gap determination 6.0-15.0 [facility] Anion gap [Moles/Vol] 10.9 mmol/L Normal 6.0-15.0 [facility] Comment on above: Performed By: #### C BC, HS TROP #### [facility] [address] [place] [address] Serum or plasma total choles terol/high density lipoprotein (HDL) cholesterol mass ratOrdered By: Jamal Alvarez on 02-06-2025 Cholesterol.total/[place] sterol in HDL [Mass ratio] Serum or plasma total cholesterol/high density lipoprotein (HDL) cholesterol mass rat <5.0 [facility] Cholesterol.total/[place] sterol in HDL [Mass ratio] 2.4 {ratio} Normal <5.0 [facility] Comment on above: Result Comment: PERF ORMED BY: [place] [address] PATHOLOGIST [employer] MAE M.D. Performed By: #### C BC, HS TROP #### [address] Sodium [Moles/volume] in Ser um or PlasmaOrdered By: Jamal Alvarez on 02-06-2025 Sodium [Moles/Vol] Sodium [Moles/volume ] in Serum or Plasma 136-145 [facility] Sodium [Moles/Vol] 140 mmol/L Normal 136-145 [facility] Comment on above: Performed By: #### C BC, HS TROP #### [address] Thyrotropin [Units/volume] i n Serum or PlasmaOrdered By: Valdez Castro on 02-06-2025 TSH Qn Thyrotropin [Units/v olume] in Serum or Plasma 0.45-5.33 [facility] TSH Qn 1.05 m[IU]/L Normal 0.45-5.33 [facility] Comment on above: Result Comment: PERF ORMED BY: [place] [address] PATHOLOGIST [employer] MAE M.D. Performed By: #### T 4F, TSH3 #### [facility] [address] Thyroxine (T4) free [Mass/vo lume] in Serum or PlasmaOrdered By: Valdez Castro on 02-06-2025 Free T4 [Mass/Vol] Thyroxine (T4) free [Mass/volume] in Serum or Plasma 0.61-1.12 [facility] Free T4 [Mass/Vol] 0.84 ng/dL Normal 0.61-1.12 [facility] Comment on above: Performed By: #### T 4F, TSH3 #### [facility] [address] [place] [address] Triglyceride [Mass/volume] i n Serum or PlasmaOrdered By: Jamal Alvarez on 02-06-2025 Triglyceride [Mass/Vol] Triglyceride [Ma ss/volume] in Serum or Plasma 0-149 [facility] Comment on above: TRIG ATP III CLASSIF ICATIONTRIG less than 150 mg/dL NormalTRIG 150-199 mg/dL Borderline highTRIG 200-500 mg/dL High TRIG greater than 500 mg/dL Very highStandard traceable to the Center for Disease Conrtrol and Prevention (CDC) test method. Triglyceride [Mass/Vol] 94 mg/dL 0-149 [facility] Comment on above: TRIG ATP III CLASSIF ICATIONTRIG less than 150 mg/dL NormalTRIG 150-199 mg/dL Borderline highTRIG 200-500 mg/dL High TRIG greater than 500 mg/dL Very highStandard traceable to the Center for Disease Conrtrol and Prevention (CDC) test method. Triiodothyronine (T3) Freeon 02-06-2025 Triiodothyronine (T3) Free 2.78 pg/mL Normal 2.50-3.90 [facility] Comment on above: Result Comment: PERF ORMED BY: [address] [place] [address] PATHOLOGIST PARTS PICKER ROZ MAE M.D. Performed By: #### C BC, HS TROP #### [address] Triiodothyronine (T3) Free [ Mass/volume] in Serum or PlasmaOrdered By: Valdez Castro on 02-06-2025 Free T3 [Mass/Vol] Triiodothyronine (T3 ) Free [Mass/volume] in Serum or Plasma 2.50-3.90 [facility] Free T3 [Mass/Vol] 2.78 pg/mL 2.50-3.90 [facility] Urea nitrogen [Mass/volume] in Serum or PlasmaOrdered By: Jamal Alvarez on 02-06-2025 Urea nitrogen [Mass/Vol] Urea nitrogen [Mass/volume] in Serum or Plasma 7- [facility] Urea nitrogen [Mass/Vol] 17 mg/dL Normal -25 [facility] Comment on above: Performed By: #### C BC, HS TROP #### [facility] [address] [place] [address] Urine microalbumin/creatinin e mass ratioOrdered By: Jamal Alvarez on 02-06-2025 Albumin/Creatinine DL <= 20 mg/L (U) [Mass ratio] Urine microalbumin/creatinine mass ratio [facility] Comment on above: Test not performed Albumin/Creatinine DL <= 20 mg/L (U) [Mass ratio] TNP [facility] Comment on above: Test not performed WBC Auto (Bld) [#/Vol]Ordere d By: Jamal Alvarez on 02-06-2025 WBC (Bld) [#/Vol] Leukocytes [#/volume ] in Blood by Automated count 3.8-11.6 [facility] Juany 01-12-2025 LOPEZ Telephone (NEADFV) -- KARUNA REYNAGA ([id number]) 1945 F Date Time Provider Department 01/12/25 LISA WILLIAM During your visit today, we recorded the following information about you: Jyoti Silva 01/12/2025 2:27 PM Signed [facility] specialty pharmacy phoned to follow with prior auth for cannabidiol (EPIDIOLEX) 100 mg/mL oral liquid please call and advise [facility] specialty pharmacy # [phone] Jennifer Chandler RN 01/13/2025 10:42 AM Signed Urgent PA initiated in CM calderon [id number]. TEAGAN Acevedo Jennifer, RN 01/13/2025 11:08 AM Signed Additional information submitted in [facility]. TEAGAN Acevedo Lori 01/13/2025 4:14 PM Signed Please call Artavia at [phone] at [facility] for additional information. She stated this will auto deny at 6am tomorrow. Jennifer Chandler RN 01/13/2025 5:04 PM Signed Returned call ref [id number]. They wanted to know if pt has intractable seizures. Confirmed. They will issue a determination tomorrow. TEAGAN Acevedo Jennifer, RN 01/15/2025 4:11 PM Signed Jennifer Chandler RN 01/15/2025 4:13 PM Signed Jennifer Chandler RN 01/15/2025 4:23 PM Signed Call to [facility] pharmacy, spoke with PharmD. Med was processed and plan paid, pt portion will be $33/month. Pt will need to call to set up delivery. Call to patient, no answer, voicemail message left. TEAGAN Acevedo Jennifer, RN 01/16/2025 10:38 AM Signed Call to patients daughter, advised her of the approval. Given the number to call [facility]. Jennifer Chandler RN Allergies As of Date: [...] Fully Assessed Reason for Visit: Medication Question [1478] Prescriptions as of 01/16/2025 - cannabidiol (EPIDIOLEX) [...] Encounter Status:Closed by JENNIFER CHANDLER on 01/13/25 [facility] Free T4 (Free Thyroxine)on 0 11-20-2024 Free T4 [Mass/Vol] 0.88 ng/dL Normal 0.61-1.12 [facility] Comment on above: Performed By: #### G LULS #### Point of Care testing , Thyroid Stimulating Hormoneo n 11-20-2024 TSH Qn 0.18 m[IU]/L Low 0.45-5.33 [facility] Comment on above: Result Comment: PERF ORMED BY: [place] [address] [place] [address] PATHOLOGIST PARTS PICKER ROZ MAE M.D. Performed By: #### G LULS #### Point of Care testing , Thyrotropin [Units/volume] i n Serum or PlasmaOrdered By: Valdez Castro on 11-20-2024 TSH Qn Thyrotropin [Units/v olume] in Serum or Plasma Low 0.45-5.33 [facility] Thyroxine (T4) free [Mass/vo lume] in Serum or PlasmaOrdered By: Valdez Castro on 11-20-2024 Free T4 [Mass/Vol] Thyroxine (T4) free [Mass/volume] in Serum or Plasma 0.61-1.12 [facility] Triiodothyronine (T3) Freeon 11-20-2024 Triiodothyronine (T3) Free 2.69 pg/mL Normal 2.50-3.90 [facility] Comment on above: Result Comment: PERF ORMED BY: [place] [address] [place] [address] PATHOLOGIST PARTS PICKER ROZ MAE M.D. Performed By: #### G LULS #### Point of Care testing , Triiodothyronine (T3) Free [ Mass/volume] in Serum or PlasmaOrdered By: Valdez Castro on 11-20-2024 Free T3 [Mass/Vol] Triiodothyronine (T3 ) Free [Mass/volume] in Serum or Plasma 2.50-3.90 [facility] [place] 09-08-2024 CNPN Telephone (PULMMN) -- PHYLICIAKARUNA Bowman Dejan ([id number]) 1945 F Date Time Provider Department 09/08/24 UBALDO DUBOSE During your visit today, we recorded the following information about you: John Madison 09/08/2024 1:16 PM Signed Karuna Reynaga's daughter [...] tablet by mouth every Sunday, Sunday, and Cesario. - lamoTRIgine (LAMICTAL) 25 mg tablet take [...] Status:Closed by JOHN MADISON on 09/08/24 Normal [facility] MLR HEMOGLOBIN A1Con 024 Glucose [Mass/Vol] 114 mg/dL [facility] HbA1c (Bld) [Mass fraction] 5.6 % 4.5 - 6.2 % [facility] Comment on above: ADA RECOMMENDED LIMI T 4.0 - 6.0 ADA THERAPEUTIC TARGET < 7.0 ACTION SUGGESTED > 7.0 [facility] ALL CBC WITH AUTO DIFFon BASOPHILS ABSOLUTE AUTO 0.1 N [facility] Basophils/100 WBC (Bld) 0.8 % 0.2 - 2.0 % [facility] Eosinophils/100 WBC (Bld) 4.2 % 0.9 - 7.0 % [facility] Erythrocyte distribution width (RBC) [Ratio] 12.5 % 11.0 - 15.0 % [facility] Hematocrit (Bld) [Volume fraction] 40.9 % 36.0 - 48.0 % [facility] Hemoglobin (Bld) [Mass/Vol] 13.0 g/dL 12.0 - 16.0 g/dL [facility] IMMATURE GRANULOCYTES ABS AUTO 0.01 [facility] Immature granulocytes/100 WBC (Bld) 0.1 % 0.0 - 0.5 % [facility] LYMPHOCYTES ABSOLUTE AUTO 2.3 [facility] Lymphocytes/100 WBC (Bld) 32.7 % 20.5 - 60.0 % [facility] MCH (RBC) [Entitic mass] 29.5 pg 26.7 - 34.0 pg [facility] MCHC (RBC) [Mass/Vol] 31.8 g/dL 29.9 - 35.2 g/dL [facility] MCV (RBC) [Entitic vol] 92.7 fL 81.0 - 99.0 fL [facility] MONOCYTES ABSOLUTE AUTO 0.4 N [facility] Monocytes/100 WBC (Bld) 5.5 % 1.7 - 12.0 % [facility] NEUTROPHILS ABSOLUTE AUTO 4.0 [facility] Neutrophils/100 WBC (Bld) 56.7 % 43.0 - 75.0 % [facility] Platelet mean volume (Bld) [Entitic vol] 10.2 fL 9.5 - 13.5 fL [facility] TBH EO # 0.3 [facility] TB PLT [address] RBC 4.[address] [facility] WBC 7.1 [facility] CNPNon 07-30-2024 CNP Telephone (NEURAV) -- KARUNA REYNAGA ([id number]) 1945 F Date Time Provider Department 07/30/24 LISA WILLIAM NEURKARLA During your visit today, we recorded the [...] daughter: Nadira Call patient at: on cell [phone] (home) [phone] (cell) Was an appointment scheduled: No Closing statement: Results or non-symptom based questions: Thank you for calling [facility], your call will be returned within the next business day. Yanick CharlesYaa Garcia 07/30/2024 2:05 PM Signed Patient called back today, and indicated that she's going to have this done at [facility] and they need the order to specifically state how long you want them to do the test for, so please include a time frame on the order. Then fax over to [facility] at: [phone] Sowmya Gresham RN 07/30/2024 2:54 PM Signed [...] PM Addendum Spoke with Karuna States that [facility] needs the order to specify what [...] 2:18 PM Addendum EEG order faxed to [facility] via [employer] request to fax report to [phone] send EEG tracings to F Sowmya Gresham [...] convulsion type (HCC) [R56.9] Order(s):EPIL EEG LONG [[id number]] Order #: [id number]: 1 FUTURE Prescriptions as of 08/01/2024 - [...] Encounter Status:Closed by SOWMYA GRESHAM on 08/01/24 Normal [facility] Thyrotropin [Units/volume] i n Serum or PlasmaOrdered By: Valdez Castro on 04-22-2024 TSH Qn 1.42 m[IU]/L 0.45-5.33 [facility] Thyroxine (T4) free [Mass/vo lume] in Serum or PlasmaOrdered By: Valdez Castro on 04-22-2024 Free T4 [Mass/Vol] 0.64 ng/dL 0.61-1.12 [facility] Triiodothyronine (T3) Free [ Mass/volume] in Serum or PlasmaOrdered By: Valdez Castro on 04-22-2024 Free T3 [Mass/Vol] 2.84 pg/mL 2.50-3.90 [facility] Basophils Auto (Bld) [#/Vol] Ordered By: Albert Palacio on 04-16-2024 Basophils (Bld) [#/Vol] 0.1 10*3/uL 0.0-0.2 [facility] Basophils/100 WBC Auto (Bld) Ordered By: Albert Palacio on 04-16-2024 Basophils/100 WBC (Bld) 0.8 % . [facility] Calcium [Mass/volume] in Ser um or PlasmaOrdered By: Albert Palacio on 04-16-2024 Calcium [Mass/Vol] 9.6 mg/dL 8.6-10.3 [facility] Carbon dioxide, total [Moles /volume] in Serum or PlasmaOrdered By: Albert Palacio on 04-16-2024 CO2 [Moles/Vol] 24.4 mmol/L 21.0-31.0 [facility] Chloride [Moles/volume] in S sun or PlasmaOrdered By: Albert Palacio on 04-16-2024 Chloride [Moles/Vol] 105 mmol/L 98-[address] [facility] Creatinine [Mass/volume] in Serum or PlasmaOrdered By: Albert Palacio on 04-16-2024 Creatinine [Mass/Vol] 0.96 mg/dL 0.60-1.20 [facility] Eosinophils Auto (Bld) [#/Vo l]Ordered By: Albert Palacio on 04-16-2024 Eosinophils (Bld) [#/Vol] 0.3 10*3/uL 0.0-0.45 [facility] Eosinophils/100 WBC Auto (Bl d)Ordered By: Albert Palacio on 04-16-2024 Eosinophils/100 WBC (Bld) 3.6 % . [facility] Erythrocyte distribution wid th Auto (RBC) [Ratio]Ordered By: Albert Palacio on 04-16-2024 Erythrocyte distribution width (RBC) [Ratio] 13.0 % 11.9-15.3 [facility] Glucose [Mass/volume] in Ser um or PlasmaOrdered By: lAbert Palacio on 04-16-2024 Glucose [Mass/Vol] 112 mg/dL High 70-100 [facility] Comment on above: ADA recommended refe rence rangeRandom Glucose Reference Range is dependent on time and content of last meal. Glucose of more than 200 mg/dL in a nonstressed, ambulatory subject supports the diagnosis of Diabetes Mellitus. Hematocrit Auto (Bld) [Volum e fraction]Ordered By: Albert Palacio on 04-16-2024 Hematocrit (Bld) [Volume fraction] 42.1 % 34.0-46.4 [facility] Hemoglobin [Mass/volume] in BloodOrdered By: Albert Palacio on 04-16-2024 Hemoglobin (Bld) [Mass/Vol] 13.7 g/dL 11.8-15.4 [facility] Leukocytes [#/volume] correc rob for nucleated erythrocytes in Blood by Automated counOrdered By: Albert Palacio on 04-16-2024 WBC corrected for nucl RBC Auto (Bld) [#/Vol] 7.5 10*3/uL 3.8-11.6 [facility] Lymphocytes Auto (Bld) [#/Vo l]Ordered By: Albert Palacio on 04-16-2024 Lymphocytes (Bld) [#/Vol] 1.7 10*3/uL 1.00-4.8 [facility] Lymphocytes/100 WBC Auto (Bl d)Ordered By: Albert Palacio on 04-16-2024 Lymphocytes/100 WBC (Bld) 22.3 % . [facility] MCH Auto (RBC) [Entitic mass ]Ordered By: Albert Palacio on 04-16-2024 MCH (RBC) [Entitic mass] 29.2 pg 24.7-34.3 [facility] MCHC Auto (RBC) [Mass/Vol]Or dered By: Albert Palacio on 04-16-2024 MCHC (RBC) [Mass/Vol] 32.7 g/dL 32.0-35.0 [facility] MCV Auto (RBC) [Entitic vol] Ordered By: Ablert Palacio on 04-16-2024 MCV (RBC) [Entitic vol] 89.5 fL 80-100 [facility] Monocytes Auto (Bld) [#/Vol] Ordered By: Albert Palacio on 04-16-2024 Monocytes (Bld) [#/Vol] 0.5 10*3/uL 0.0-0.8 [facility] Monocytes/100 WBC Auto (Bld) Ordered By: Albert Palacio on 04-16-2024 Monocytes/100 WBC (Bld) 6.4 % . [facility] Neutrophils Auto (Bld) [#/Vo l]Ordered By: Albert Palacio on 04-16-2024 Neutrophils (Bld) [#/Vol] 5.0 10*3/uL 1.8-7.7 [facility] Neutrophils/100 WBC Auto (Bl d)Ordered By: Albert Palacio on 04-16-2024 Neutrophils/100 WBC (Bld) 66.9 % . [facility] No Panel InformationOrdered By: Albert Palacio on 04-16-2024 Estimated GFR (CKD-EPI) > 60.0 mL/Min [facility] Creatinine Clearance (Chem 40.49 [facility] Nucleated erythrocytes [Pres ence] in Blood by Automated countOrdered By: Albert Palacio on 04-16-2024 Nucleated RBC Auto Ql (Bld) 0.0 /100{WBC} 0-0.5 [facility] Platelet mean volume Auto (B ld) [Entitic vol]Ordered By: Albert Palacio on 04-16-2024 Platelet mean volume (Bld) [Entitic vol] 8.0 fL 6.3-10.7 [facility] Platelets Auto (Bld) [#/Vol] Ordered By: Albert Palacio on 04-16-2024 Platelets (Bld) [#/Vol] 222 10*3/uL 150-450 [facility] Potassium [Moles/volume] in Serum or PlasmaOrdered By: Albert Palacio on 04-16-2024 Potassium [Moles/Vol] 4.9 mmol/L 3.5-5.1 [facility] RBC Auto (Bld) [#/Vol]Ordere d By: Albert Palacio on 04-16-2024 RBC (Bld) [#/Vol] 4.70 10*6/uL 3.60-5.00 [facility] Serum or plasma anion gap de terminationOrdered By: Albert Palacio on 04-16-2024 Anion gap [Moles/Vol] 13.5 mmol/L 6.0-15.0 [facility] Sodium [Moles/volume] in Ser um or PlasmaOrdered By: Albert Palacio on 04-16-2024 Sodium [Moles/Vol] 138 mmol/L 136-145 [facility] Urea nitrogen [Mass/volume] in Serum or PlasmaOrdered By: Albert Palacio on 04-16-2024 Urea nitrogen [Mass/Vol] 31 mg/dL High 7-25 [facility] WBC Auto (Bld) [#/Vol]Ordere d By: Albert Palacio on 04-16-2024 WBC (Bld) [#/Vol] 7.5 10*3/uL 3.8-11.6 [facility] Activated partial thrombopla stin time (aPTT) in platelet poor plasma by coagulation aOrdered By: Albert Palacio on 04-14-2024 aPTT Coag (PPP) [Time] 77.1 s High 25.1-36.5 [facility] Comment on above: A hematocrit value g reater than 55% may lead to inaccurate results in coagulation testing. Patients having hematocrit values >55% require a special collection tube for coagulation studies. Please contact the laboratory at [phone] for redraw instructions. Bilirubin Test strip Ql (U)O rdered By: Ashley Dickerson on 04-14-2024 Bilirubin Ql (U) Negative Negative [facility] Cholesterol [Mass/volume] in Serum or PlasmaOrdered By: Albert Palacio on 04-14-2024 Cholesterol [Mass/Vol] 154 mg/dL 140-200 [facility] Comment on above: Chol less than 200 m g/dl low riskChol 201-239 mg/dl borderline riskChol 240 mg/dl and greater high risk Cholesterol in LDL Calc [Mas s/Vol]Ordered By: Albert Palacio on 04-14-2024 Cholesterol in LDL [Mass/Vol] 82 mg/dL 0-100 [facility] Comment on above: LDL ATP III CLASSIFI CATIONLDL less than 100 mg/dL OptimalLDL 100-129 mg/dL Near or above optimalLDL 130-159 mg/dL Borderline highLDL 160-189 mg/dL HighLDL greater than 189 mg/dL Very high Cholesterol in VLDL Calc [Ma ss/Vol]Ordered By: Albert Palacio on 04-14-2024 Cholesterol in VLDL [Mass/Vol] 12 mg/dL [facility] Color Auto (U)Ordered By: Junie Dickerson on 04-14-2024 Color (U) Colorless Yellow [facility] Glucose [Mass/volume] in Uri ne by Test stripOrdered By: Ashley Dickerson on 04-14-2024 Glucose Test strip (U) [Mass/Vol] Normal mg/dL Normal [facility] Hemoglobin Test strip Ql (U) Ordered By: Ashley Dickerson on 04-14-2024 Hemoglobin Ql (U) Negative Negative [facility] Ketones Test strip Ql (U)Ord ered By: Ashley Dickerson on 04-14-2024 Ketones Ql (U) Negative Negative [facility] Leukocyte esterase [Presence ] in Urine by Test stripOrdered By: Ashley Dickerson on 04-14-2024 Leukocyte esterase Test strip Ql (U) Negative Negative [facility] Magnesium [Mass/volume] in S sun or PlasmaOrdered By: Albert Palacio on 04-14-2024 Magnesium [Mass/Vol] 1.9 mg/dL 1.9-2.[address] [facility] Nitrite Test strip Ql (U)Ord ered By: Ashley Dickerson on 04-14-2024 Nitrite Ql (U) Negative Negative [facility] Protein Test strip (U) [Mass /Vol]Ordered By: Ashley Dickerson on 04-14-2024 Protein (U) [Mass/Vol] Negative Negative [facility] Serum or plasma high density lipoprotein (HDL) cholesterol measurementOrdered By: Albert Palacio on 04-14-2024 Cholesterol in HDL [Mass/Vol] 59 mg/dL 23-92 [facility] Comment on above: HDL CHOL ATP-III CLA SSIFICATION Cardiovascular RiskHDL > or equal to 60 mg/dL LOWHDL < 40 mg/dL HIGH Serum or plasma total choles terol/high density lipoprotein (HDL) cholesterol mass ratOrdered By: Albert Palacio on 04-14-2024 Cholesterol.total/[place] sterol in HDL [Mass ratio] 2.6 {ratio} <5.0 [facility] Specific gravity Test strip (U) [Rel density]Ordered By: Ashley Dickerson on 04-14-2024 Specific gravity (U) [Rel density] 1.011 1.001-1.03 0 [facility] Triglyceride [Mass/volume] i n Serum or PlasmaOrdered By: Albert Palacio on 04-14-2024 Triglyceride [Mass/Vol] 64 mg/dL 0-149 [facility] Comment on above: TRIG ATP III CLASSIF ICATIONTRIG less than 150 mg/dL NormalTRIG 150-199 mg/dL Borderline highTRIG 200-500 mg/dL High TRIG greater than 500 mg/dL Very highStandard traceable to the Center for Disease Conrtrol and Prevention (CDC) test method. Troponin I.cardiac [Mass/vol ume] in Serum or Plasma by Detection limit <= 0.01 ng/Ordered By: Albert Palacio on 04-14-2024 Troponin I.cardiac DL <= 0.01 ng/mL [Mass/Vol] 436.4 pg/mL High 0.0-15.0 [facility] Comment on above: Critical Result : Ca lled to and read back by: BRET HARKINS at: 04/14/2024 06:14:01 by:SOUMYA Urine appearanceOrdered By: Ashley Dickerson on 04-14-2024 Appearance (U) Clear Clear [facility] Urobilinogen Test strip (U) [Mass/Vol]Ordered By: Ashley Dickerson on 04-14-2024 Urobilinogen (U) [Mass/Vol] Normal mg/dL Normal [facility] pH Test strip (U)Ordered By: Ashley Dickerson on 04-14-2024 pH (U) 6.0 [pH] 5.0-9.0 [facility] Activated partial thrombopla stin time (aPTT) in platelet poor plasma by coagulation aOrdered By: Ashley Dickerson on 04-13-2024 aPTT Coag (PPP) [Time] 28.3 s 25.1-36.5 [facility] Comment on above: A hematocrit value g reater than 55% may lead to inaccurate results in coagulation testing. Patients having hematocrit values >55% require a special collection tube for coagulation studies. Please contact the laboratory at [phone] for redraw instructions. Alanine aminotransferase [En zymatic activity/volume] in Serum or PlasmaOrdered By: Ashley Dickerson on 04-13-2024 ALT [Catalytic activity/Vol] 19 U/L 7-52 [facility] Albumin [Mass/volume] in Ser um or Plasma by Bromocresol green (BCG) dye binding methoOrdered By: Ashley Dickerson on 04-13-2024 Albumin BCG dye [Mass/Vol] 3.6 g/dL 3.5-5.7 [facility] Alkaline phosphatase [Enzyma tic activity/volume] in Serum or PlasmaOrdered By: Ashley Dickerson on 04-13-2024 ALP [Catalytic activity/Vol] 48 U/L 34-104 [facility] Aspartate aminotransferase [ Enzymatic activity/volume] in Serum or PlasmaOrdered By: Ashley Dickerson on 04-13-2024 AST [Catalytic activity/Vol] 19 U/L 13-39 [facility] Basophils Auto (Bld) [#/Vol] Ordered By: Ashley Dickerson on 04-13-2024 Basophils (Bld) [#/Vol] 0.1 10*3/uL 0.0-0.2 [facility] Basophils/100 WBC Auto (Bld) Ordered By: Ashley Dickerson on 04-13-2024 Basophils/100 WBC (Bld) 0.8 % . [facility] Bilirubin.total [Mass/volume ] in Serum or PlasmaOrdered By: Ashley Dickerson on 04-13-2024 Bilirubin [Mass/Vol] 0.4 mg/dL 0.3-1.[address] [facility] Calcium [Mass/volume] in Ser um or PlasmaOrdered By: Ashley Dickerson on 04-13-2024 Calcium [Mass/Vol] 8.7 mg/dL 8.6-10.3 [facility] Carbon dioxide, total [Moles /volume] in Serum or PlasmaOrdered By: Ashley Dickerson on 04-13-2024 CO2 [Moles/Vol] 28.0 mmol/L 21.0-31.0 [facility] Chloride [Moles/volume] in S sun or PlasmaOrdered By: Ashley Dickerson on 04-13-2024 Chloride [Moles/Vol] 105 mmol/L 98-[address] [facility] Creatine kinase [Enzymatic a ctivity/volume] in Serum or PlasmaOrdered By: Albert Palacio on 04-13-2024 CK [Catalytic activity/Vol] 56 U/L 30-223 [facility] Creatinine (Bld) [Mass/Vol]O rdered By: Ashley Dickerson on 04-13-2024 Creatinine [Mass/Vol] 1.1 mg/dL 0.6-1.3 [facility] Comment on above: ER/ESD physician is notified/shown all ISTAT results.Critical values may be confirmed by laboratory testing ifdeemed necessary by ER attending doctor. Creatinine [Mass/volume] in Serum or PlasmaOrdered By: Ashley Dickerson on 04-13-2024 Creatinine [Mass/Vol] 0.92 mg/dL 0.60-1.20 [facility] Eosinophils Auto (Bld) [#/Vo l]Ordered By: Ashley Dickerson on 04-13-2024 Eosinophils (Bld) [#/Vol] 0.3 10*3/uL 0.0-0.45 [facility] Eosinophils/100 WBC Auto (Bl d)Ordered By: Ashley Dickerson on 04-13-2024 Eosinophils/100 WBC (Bld) 4.3 % . [facility] Erythrocyte distribution wid th Auto (RBC) [Ratio]Ordered By: Ashley Dickerson on 04-13-2024 Erythrocyte distribution width (RBC) [Ratio] 12.7 % 11.9-15.3 [facility] Globulin Calc (S) [Mass/Vol] Ordered By: Ashley Dickerson on 04-13-2024 Globulin (S) [Mass/Vol] 3.0 g/dL [facility] Glucose Glucometer (BldC) [M ass/Vol]Ordered By: Ashley Dickerson on 04-13-2024 Glucose [Mass/Vol] 167 mg/dL [facility] Comment on above: Random Glucose Refer ence Range is dependent on time and content of last meal. Glucose of more than 200 mg/dL in a nonstressed, ambulatory subject supports the diagnosis of Diabetes Mellitus. Glucose [Mass/volume] in Ser um or PlasmaOrdered By: Ashley Dickerson on 04-13-2024 Glucose [Mass/Vol] 173 mg/dL 70-100 [facility] Comment on above: ADA recommended refe rence rangeRandom Glucose Reference Range is dependent on time and content of last meal. Glucose of more than 200 mg/dL in a nonstressed, ambulatory subject supports the diagnosis of Diabetes Mellitus. Hematocrit Auto (Bld) [Volum e fraction]Ordered By: Ashley Dickerson on 04-13-2024 Hematocrit (Bld) [Volume fraction] 38.7 % 34.0-46.4 [facility] Hemoglobin [Mass/volume] in BloodOrdered By: Ashley Dickerson on 04-13-2024 Hemoglobin (Bld) [Mass/Vol] 12.7 g/dL 11.8-15.4 [facility] INR in Platelet poor plasma by Coagulation assayOrdered By: Ashley Dickerson on 04-13-2024 INR Coag (PPP) [Relative time] 1.1 {INR} [facility] Comment on above: INR Therapeutic [...] with mechanical heart valves: 3 - 4.5 Leukocytes [#/volume] correc rob for nucleated erythrocytes in Blood by Automated counOrdered By: Ashley Dickerson on 04-13-2024 WBC corrected for nucl RBC Auto (Bld) [#/Vol] 6.3 10*3/uL 3.8-11.6 [facility] Lymphocytes Auto (Bld) [#/Vo l]Ordered By: Ashley Dickerson on 04-13-2024 Lymphocytes (Bld) [#/Vol] 1.8 10*3/uL 1.00-4.8 [facility] Lymphocytes/100 WBC Auto (Bl d)Ordered By: Ashley Dickerson on 04-13-2024 Lymphocytes/100 WBC (Bld) 29.5 % . [facility] MCH Auto (RBC) [Entitic mass ]Ordered By: Ashley Dickerson on 04-13-2024 MCH (RBC) [Entitic mass] 29.4 pg 24.7-34.3 [facility] MCHC Auto (RBC) [Mass/Vol]Or dered By: Ashley Dickerson on 04-13-2024 MCHC (RBC) [Mass/Vol] 32.8 g/dL 32.0-35.0 [facility] MCV Auto (RBC) [Entitic vol] Ordered By: Ashley Dickerson on 04-13-2024 MCV (RBC) [Entitic vol] 89.6 fL 80-100 [facility] Monocyte distribution width [Entitic volume] in Blood by AutomatedOrdered By: Ashley Dickerson on 04-13-2024 Monocyte distribution width Auto (Bld) [Entitic vol] 18.47 % 0.00-20.00 [facility] Monocytes Auto (Bld) [#/Vol] Ordered By: Ashley Dickerson on 04-13-2024 Monocytes (Bld) [#/Vol] 0.5 10*3/uL 0.0-0.8 [facility] Monocytes/100 WBC Auto (Bld) Ordered By: Ashley Dickerson on 04-13-2024 Monocytes/100 WBC (Bld) 7.4 % . [facility] Natriuretic peptide B [Mass/ Vol]Ordered By: Albert Palacio on 04-13-2024 Natriuretic peptide B (Bld) [Mass/Vol] 12.0 pg/mL 5-100 [facility] Neutrophils Auto (Bld) [#/Vo l]Ordered By: Ashley Dickerson on 04-13-2024 Neutrophils (Bld) [#/Vol] 3.6 10*3/uL 1.8-7.7 [facility] Neutrophils/100 WBC Auto (Bl d)Ordered By: Ashley Dickerson on 04-13-2024 Neutrophils/100 WBC (Bld) 58.0 % . [facility] No Panel InformationOrdered By: Ashley Dickerson on 04-13-2024 Bedside Estimated GFR (eGFR) 51.432 [facility] Bedside Glucose Comment Glu2: cleaned meter [facility] Estimated GFR (CKD-EPI) > 60.0 mL/Min [facility] Creatinine Clearance (Chem 42.88 [facility] Nucleated erythrocytes [Pres ence] in Blood by Automated countOrdered By: Ashley Dickerson on 04-13-2024 Nucleated RBC Auto Ql (Bld) 0.1 /100{WBC} 0-0.5 [facility] Platelet mean volume Auto (B ld) [Entitic vol]Ordered By: Ashley Dickerson on 04-13-2024 Platelet mean volume (Bld) [Entitic vol] 7.8 fL 6.3-10.7 [facility] Platelets Auto (Bld) [#/Vol] Ordered By: Ashley Dickerson on 04-13-2024 Platelets (Bld) [#/Vol] 221 10*3/uL 150-450 [facility] Potassium [Moles/volume] in Serum or PlasmaOrdered By: Ashley Dickerson on 04-13-2024 Potassium [Moles/Vol] 4.1 mmol/L 3.5-5.1 [facility] Protein [Mass/volume] in Ser um or PlasmaOrdered By: Ashley Dickerson on 04-13-2024 Protein [Mass/Vol] 6.6 g/dL 6.4-8.9 [facility] Prothrombin time (PT)Ordered By: Ashley Dickerson on 04-13-2024 PT Coag (PPP) [Time] 12.5 s 9.0-12.[address] [facility] Comment on above: A hematocrit value g reater than 55% may lead to inaccurate results in coagulation testing. Patients having hematocrit values >55% require a special collection tube for coagulation studies. Please contact the laboratory at [phone] for redraw instructions. RBC Auto (Bld) [#/Vol]Ordere d By: Ashley Dickerson on 04-13-2024 RBC (Bld) [#/Vol] 4.32 10*6/uL 3.60-5.00 [facility] Serum or plasma albumin/glob ulin mass ratioOrdered By: Ashley Dickerson on 04-13-2024 Albumin/Globulin [Mass ratio] 1.2 {ratio} [facility] Serum or plasma anion gap de terminationOrdered By: Ashley Dickerson on 04-13-2024 Anion gap [Moles/Vol] 9.1 mmol/L 6.0-15.0 [facility] Sodium [Moles/volume] in Ser um or PlasmaOrdered By: Ashley Dickerson on 04-13-2024 Sodium [Moles/Vol] 138 mmol/L 136-145 [facility] Troponin I.cardiac [Mass/vol ume] in Serum or Plasma by Detection limit <= 0.01 ng/Ordered By: Albert Palacio on 04-13-2024 Troponin I.cardiac DL <= 0.01 ng/mL [Mass/Vol] 454.0 pg/mL 0.0-15.0 [facility] Comment on above: Critical Result : Ca lled to and read back by: HUGH BRUMFIELD at: 04/13/2024 19:01:57 by:[id number] Urea nitrogen [Mass/volume] in Serum or PlasmaOrdered By: Ashley Dickerson on 04-13-2024 Urea nitrogen [Mass/Vol] 19 mg/dL 7-25 [facility] WBC Auto (Bld) [#/Vol]Ordere d By: Ashley Dickerson on 04-13-2024 WBC (Bld) [#/Vol] 6.3 10*3/uL 3.8-11.6 [facility] ECG 12 Leadon 03-10-2024 [facility] Work Phone: Normal sinus rhythm cannot exclude pattern of septal myocardial infarction no acute abnormalities [facility] Work Phone: Creatinine (Bld) [Mass/Vol]O rdered By: JOSE LUIS LOCKHART on 02-25-2024 Creatinine [Mass/Vol] 0.7 mg/dL 0.6-1.3 [facility] Comment on above: ER/ESD physician is notified/shown all ISTAT results.Critical values may be confirmed by laboratory testing ifdeemed necessary by ER attending doctor. No Panel InformationOrdered By: JOSE LUIS LOCKHART on 02-25-2024 Bedside Estimated GFR (eGFR) > 60.0 [facility] [address] Chest WO contraston 12-28 [...] any questions regarding this interpretation, please call [phone]. If you are unable to reach us at the number above, please feel free to [facility] at [phone]. DIVISION OF RADIOLOGY * * *Final Report* * * DATE OF EXAM: Dec 27 2023 1:09PM [facility] 0541 - CT CHEST WO IVCON / [...] calcified gallstone is noted in the gallbladder. Customer Counter Representative (topogram) images: No additional findings. DIVISION OF RADIOLOGY Provider, [facility] - 12/28/2023 * * *Final Report* * * DATE OF EXAM: Dec 27 2023 1:09PM [facility] 0541 - CT CHEST WO IVCON / [...] calcified gallstone is noted in the gallbladder. Customer Counter Representative (topogram) images: No additional findings. IMPRESSION IMPRESSION: [...] any questions regarding this interpretation, please call [phone]. If you are unable to reach us at the number above, please feel free to contact [facility] eRadiology at [phone]. [facility] CT Chest WO contrastOrdered By: Ccf Provider on 12-28-[address] [facility] [address] Chest WO contraston 12-27 Radiology Study observation (narrative) [facility] LUNG DIFFUSION CAPACITY (SHANKAR O)on 12-25-2023 [facility] SPIROMETRY WITH DILATOR IF O BSTRUCTEDon 12-25-2023 DLCO (ml/min/mmHg) 9.76 ml/min/mmHg [facility] DLCO/VA (ml/min/mmHg/L) 4.48 ml/min/mmHg/L [facility] TBF21-67% PRE (L/S) 1.32 L/S [facility] FEV1 PRE (L) 1.05 L [facility] FEV1/FVC PRE (%) 89 % [facility] FVC PRE (L) 1.19 L [facility] PEF PRE (L/S) 1.90 L/S [facility] VA (L) 2.18 L [facility] Thyrotropin [Units/volume] i n Serum or PlasmaOrdered By: Valdez Castro on 10-16-2023 TSH Qn 0.51 m[IU]/L 0.45-5.33 [facility] Thyroxine (T4) free [Mass/vo lume] in Serum or PlasmaOrdered By: Valdez Castro on 10-16-2023 Free T4 [Mass/Vol] 0.74 ng/dL 0.61-1.12 [facility] Triiodothyronine (T3) Free [ Mass/volume] in Serum or PlasmaOrdered By: Valdez Castro on 10-16-2023 Free T3 [Mass/Vol] 3.08 pg/mL 2.50-3.90 [facility] Basophils Auto (Bld) [#/Vol] Ordered By: Hermes Kennedy on 12-26-2022 Basophils (Bld) [#/Vol] 0.0 10*3/uL 0.0-0.2 [facility] Basophils/100 WBC Auto (Bld) Ordered By: Hermes Kennedy on 02-21-2023 Basophils/100 WBC (Bld) 0.5 % . [facility] Creatinine and Glomerular fi ltration rate.predicted panel (S/P/Bld)Ordered By: Hermes Kennedy on 12-26-2022 Creatinine [Mass/Vol] 0.61 mg/dL 0.44-1.03 [facility] Eosinophils Auto (Bld) [#/Vo l]Ordered By: Hermes Kennedy on 12-26-2022 Eosinophils (Bld) [#/Vol] 0.1 10*3/uL 0.0-0.45 [facility] Eosinophils/100 WBC Auto (Bl d)Ordered By: Hermes Kennedy on 12-26-2022 Eosinophils/100 WBC (Bld) 2.3 % . [facility] Erythrocyte distribution wid th Auto (RBC) [Ratio]Ordered By: Hermes Kennedy on 12-26-2022 Erythrocyte distribution width (RBC) [Ratio] 13.2 % 11.9-15.3 [facility] Estimated glomerular filtrat ion rate (GFR) non- AmericanOrdered By: Hermes Kennedy on 12-26-2022 GFR/1.73 sq M.predicted among non-blacks MDRD (S/P/Bld) [Vol rate/Area] > 60 mL/Min [facility] Hematocrit Auto (Bld) [Volum e fraction]Ordered By: Hermes Kennedy on 12-26-2022 Hematocrit (Bld) [Volume fraction] 38.3 % 34.0-46.4 [facility] Hemoglobin [Mass/volume] in BloodOrdered By: Hermes Kennedy on 12-26-2022 Hemoglobin (Bld) [Mass/Vol] 12.4 g/dL 11.8-15.4 [facility] Leukocytes [#/volume] correc rob for nucleated erythrocytes in Blood by Automated counOrdered By: Hermes Kennedy on 12-26-2022 WBC corrected for nucl RBC Auto (Bld) [#/Vol] 6.4 10*3/uL 3.8-11.6 [facility] Lymphocytes Auto (Bld) [#/Vo l]Ordered By: Hermes Kennedy on 12-26-2022 Lymphocytes (Bld) [#/Vol] 2.2 10*3/uL 1.00-4.8 [facility] Lymphocytes/100 WBC Auto (Bl d)Ordered By: Hermes Kennedy on 12-26-2022 Lymphocytes/100 WBC (Bld) 34.9 % . [facility] MCH Auto (RBC) [Entitic mass ]Ordered By: Hermes Kennedy on 12-26-2022 MCH (RBC) [Entitic mass] 29.5 pg 24.7-34.3 [facility] MCHC Auto (RBC) [Mass/Vol]Or dered By: Hermes Kennedy on 12-26-2022 MCHC (RBC) [Mass/Vol] 32.3 g/dL 32.0-35.0 [facility] MCV Auto (RBC) [Entitic vol] Ordered By: Hermes Kennedy on 12-26-2022 MCV (RBC) [Entitic vol] 91.2 fL 80-100 [facility] Monocytes Auto (Bld) [#/Vol] Ordered By: Hermes Kennedy on 12-26-2022 Monocytes (Bld) [#/Vol] 0.5 10*3/uL 0.0-0.8 [facility] Monocytes/100 WBC Auto (Bld) Ordered By: Hermes Kennedy on 12-26-2022 Monocytes/100 WBC (Bld) 8.3 % . [facility] Neutrophils Auto (Bld) [#/Vo l]Ordered By: Hermes Kennedy on 12-26-2022 Neutrophils (Bld) [#/Vol] 3.5 10*3/uL 1.8-7.7 [facility] Neutrophils/100 WBC Auto (Bl d)Ordered By: Hermes Kennedy on 12-26-2022 Neutrophils/100 WBC (Bld) 54.0 % . [facility] No Panel InformationOrdered By: Hermes Kennedy on 12-26-2022 Estimated GFR () > 60 mL/Min [facility] Comment on above: GFR estimated refere nce range: According to KDOQI guidelines, <60 ml/min/1.73m2 is sufficient to diagnose a patient with chronic kidney disease. Pharmacy Creatinine Clearance (Chem N/A [facility] Nucleated erythrocytes [Pres ence] in Blood by Automated countOrdered By: Hermes Kennedy on 12-26-2022 Nucleated RBC Auto Ql (Bld) 0.2 /100{WBC} 0-0.5 [facility] Platelet mean volume Auto (B ld) [Entitic vol]Ordered By: Hermes Kennedy on 12-26-2022 Platelet mean volume (Bld) [Entitic vol] 8.5 fL 6.3-10.7 [facility] Platelets Auto (Bld) [#/Vol] Ordered By: Hermes Kennedy on 12-26-2022 Platelets (Bld) [#/Vol] 218 10*3/uL 150-450 [facility] RBC Auto (Bld) [#/Vol]Ordere d By: Hermes Kennedy on 12-26-2022 RBC (Bld) [#/Vol] 4.20 10*6/uL 3.60-5.00 [facility] Serum or plasma anion gap de terminationOrdered By: Hermes Kennedy on 12-26-2022 Anion gap [Moles/Vol] 10.0 mmol/L 6.0-15.0 [facility] Serum or plasma calcium marce urement (mass/volume)Ordered By: Hermes Kennedy on 12-26-2022 Calcium [Mass/Vol] 9.1 mg/dL 8.2-10.2 [facility] Serum or plasma chloride william surement (moles/volume)Ordered By: Hermes Kennedy on 12-26-2022 Chloride [Moles/Vol] 104 mmol/L 95-[address] [facility] Serum or plasma glucose marce urement (mass/volume)Ordered By: Hermes Kennedy on 12-26-2022 Glucose [Mass/Vol] 80 mg/dL 70-100 [facility] Comment on above: ADA recommended refe rence rangeRandom Glucose Reference Range is dependent on time and content of last meal. Glucose of more than 200 mg/dL in a nonstressed, ambulatory subject supports the diagnosis of Diabetes Mellitus. Serum or plasma potassium me asurement (moles/volume)Ordered By: Hermes Kennedy on 12-26-2022 Potassium [Moles/Vol] 4.3 mmol/L 3.5-5.1 [facility] Serum or plasma sodium measu rement (moles/volume)Ordered By: Hermes Kennedy on 12-26-2022 Sodium [Moles/Vol] 139 mmol/L 136-146 [facility] Serum or plasma total carbon dioxide measurement (moles/volume)Ordered By: Hermes Kennedy on 12-26-2022 CO2 [Moles/Vol] 29.3 mmol/L 22.0-30.0 [facility] Serum or plasma urea nitroge n measurement (mass/volume)Ordered By: Hermes Kennedy on 12-26-2022 Urea nitrogen [Mass/Vol] 21 mg/dL 9-23 [facility] WBC Auto (Bld) [#/Vol]Ordere d By: Hermes Kennedy on 12-26-2022 WBC (Bld) [#/Vol] 6.4 10*3/uL 3.8-11.6 [facility] CULTURE URINEon 04-05-2022 CULTURE URINE Culture Observations : NO GROWTH. Normal [facility] Comment on above: Performed By: #### U RCX #### [facility] [address] [place] [address] Dr. Mojgan Daily UA RANDOM W/MICROSCOPICon BACTERIA NONE SEEN Normal NONE SEEN [facility] Comment on above: Performed By: #### U AMIC #### [facility] [address] [place] [address] Dr. Mojgan Daily Bilirubin Ql (U) Negative Normal NEGATIVE [facility] Comment on above: Performed By: #### U AMIC #### [facility] [address] [place] [address] Dr. Mojgan Daily CA OX CRYSTALS FEW Normal [facility] Comment on above: Performed By: #### U AMIC #### [facility] [address] [place] [address] Dr. Mojgan Daily CAST NONE SEEN Normal NONE SEEN [facility] Comment on above: Performed By: #### U AMIC #### [facility] [address] [place] [address] Dr. Mojgan Daily Clarity (U) CLEAR Normal CLEAR [facility] Comment on above: Performed By: #### U AMIC #### [facility] [address] [place] [address] Dr. Mojgan Daily Color (U) LT. YELLOW Normal YELLOW [facility] Comment on above: Performed By: #### U AMIC #### [facility] [address] [address] [address] Mojgan Daily Crystals LM Nom (Urine sed) SEEN Abnormal NONE SEEN [facility] Comment on above: Performed By: #### U AMIC #### [facility] [address] [address] [address] Mojgan Daily Epithelial cells LM Ql (Urine sed) NONE SEEN Normal NONE SEEN /RARE [facility] Comment on above: Performed By: #### U AMIC #### [facility] [address] [address] [address] Mojgan Daily Glucose Ql (U) Negative Normal NEGATIVE [facility] Comment on above: Performed By: #### U AMIC #### [facility] [address] [place] [address] Dr. Mojgan Daily Hemoglobin Ql (U) Negative Normal NEGATIVE [facility] Comment on above: Performed By: #### U AMIC #### [facility] [address] [address] [address] Mojgan Daily Ketones Ql (U) Negative Normal NEGATIVE [facility] Comment on above: Performed By: #### U AMIC #### [facility] [address] [address] [address] Mojgan Daily LEUKOCYTES SMALL Abnormal NEGATIVE [facility] Comment on above: Performed By: #### U AMIC #### [facility] [address] [address] [address] Mojgan Daily MUCOUS NONE SEEN Normal NONE SEEN [facility] Comment on above: Performed By: #### U AMIC #### [facility] [address] [address] [address] Mojgan Daily Nitrite Ql (U) Negative Normal NEGATIVE [facility] Comment on above: Performed By: #### U AMIC #### [facility] [address] [address] [address] Mojgan Daily pH (U) 5.0 [pH] Normal 5-9 [facility] Comment on above: Performed By: #### U AMIC #### [facility] [address] [address] [address] Mojgan Daily RBC NONE SEEN Abnormal 0-2 [facility] Comment on above: Performed By: #### U AMIC #### [facility] [address] [address] [address] Mojgan Daily SPEC GRAVITY 1.025 Normal 1.005-<=1. 025 [facility] Comment on above: Performed By: #### U AMIC #### [facility] [address] [address] [address] Mojgan Daily UA PROTEIN Negative Normal NEGATIVE/ TRACE [facility] Comment on above: Performed By: #### U AMIC #### [facility] [address] [address] [address] Mojgan Daily URIC ACID CRYSTALS RARE Normal [facility] Comment on above: Performed By: #### U AMIC #### [facility] [address] [address] [address] Mojgan Daily Urobilinogen Qn (U) 0.2 {Amanuel'U}/dL Normal 0.2 - 1. 0 [facility] Comment on above: Performed By: #### U AMIC #### [facility] [address] [address] [address] Mojgan Daily WBC 2-5 Abnormal NONE SEEN [facility] Comment on above: Performed By: #### U AMIC #### [facility] [address] [address] [address] Mojgan Daily MG MAMM SCREEN 3D EBONIE CADon 03-27-2022 MG MAMM SCREEN 3D EBONIE CAD Patient: KARUNA REYNAGA Exam Date: 03/27/2022 : 1945 Gender:F Ordering : DR JAMAL ALVAREZ Admission #: [id number] Family : Order #: [id number] CLICK HERE TO VIEW EXAM RADIOLOGY REPORT PROCEDURE: MAMMOGRAM SCREENING 3D BILATERAL CAD COMPARISON: MG MAMM SCREEN EBONIE W CAD, 03/25/2021. MG MAMM SCREEN EBONIE W CAD, 01/13/2020. INDICATIONS: Screening mammography Calculator Name NCI Breast Cancer Risk Assessment Tool 5 Year Breast Cancer Risk 1.60% Lifetime Breast Cancer Risk 3.40% Personal Breast Cancer No Personal Ovarian Cancer No Treatments None Family Cancers None LOCATION: [facility] BREAST COMPOSITION: Almost entirely fatty. [...] MD on 03/27/2022 at 14:10 Normal [facility] Comprehensive metabolic 2000 panelon 02-03-2022 Albumin [Mass/Vol] 4.0 g/dL 3.9 - 4.9 g/dL [facility] ALP [Catalytic activity/Vol] 55 U/L 34 - 123 U/L [facility] ALT [Catalytic activity/Vol] 16 U/L 7 - 38 U/L [facility] Anion gap [Moles/Vol] 10 mmol/L 9 - 18 mmol/L [facility] AST [Catalytic activity/Vol] 16 U/L 13 - 35 U/L [facility] Bilirubin [Mass/Vol] 0.3 mg/dL 0.2 - 1 .3 mg/dL [facility] Calcium [Mass/Vol] 9.4 mg/dL 8.5 - 10. 2 mg/dL [facility] Chloride [Moles/Vol] 107 mmol/L High 97 - 10 5 mmol/L [facility] CO2 [Moles/Vol] 28 mmol/L 22 - 30 mmol/L [facility] Creatinine [Mass/Vol] 0.81 mg/dL 0.58 - 0.96 mg/dL [facility] Estimated Glomerular Filtration Rate 75 mL/min/1.73m >=60 mL/min/1.7 3m [facility] Glucose [Mass/Vol] 102 mg/dL High 74 - 99 mg/dL [facility] Potassium [Moles/Vol] 4.5 mmol/L 3.7 - 5.1 mmol/L [facility] Protein [Mass/Vol] 6.7 g/dL 6.3 - 8.0 g/dL [facility] Sodium [Moles/Vol] 145 mmol/L High 136 - 144 mmol/L [facility] Urea nitrogen [Mass/Vol] 22 mg/dL High 7 - 21 mg/dL [facility] Office Visit (Cardiology)on 10-21-2021 Follow-up visit Diagnoses/Problems Assessed Pre-operative cardiovascular examination (V72.81) (Z01.810) Sinus bradycardia (427.89) (R00.1) Class 1 obesity with body mass index (BMI) of 30.0 to 30.9 in adult (278.00,V85.30) (E66.9,Z68.30) Former smoker (V15.82) (Z87.891) Quit 1980 Orders Class 1 obesity with body mass index (BMI) of 30.0 to 30.9 in adult Healthy Weight Tips; Status:Complete - Retrospective Authorization; Done: [id number] Pre-operative cardiovascular examination IO EKG Electrocardiogram- 12 Lead; Status:Complete; Done: [id number] SocHx: Former smoker Tobacco Use Screening; Status:Complete; Done: [id number] Patient Instructions Follow up as needed only [...] CAPSULE Daily Allergies Medication codeine Recorded By: Jadia Forbes; 10/21/2021 11:07:03 AM Penicillins Recorded By: [...] negative for complaint. Vitals Vital Signs Recorded: [id number] 11:08AMRecorded: [id number] 11:07AM [id number], LUE, [id number], LUE, Sitting [id number], LUE, Unaplrd07, LUE, Sitting Heart Rate58, Apical Height4 ft 10 in [id number] lb BMI (more content not included)... Normal [facility] Tobacco Screening.on 021 Fall risk assessment a) No falls within the last year [facility] [employer] DO Work Phone: Tobacco use status [facility] b) No [facility] DO Work Phone: XR Chest 2 [...] by Kole Nino on 10/13/2021 1530 Normal [facility] [employer] Vital Signs Date Time Vital Sign Value Performing Clinician Facility 06-25-2025 14: Body height 144.8 cm Jose Luis Lockhart COMPLIANCE REVIEW SPECIALIST Work Phone: [facility] 06-25-2025 14: Body mass index (BMI) [Ratio] 27.89 kg/m2 Jose Luis Lockhart COMPLIANCE REVIEW SPECIALIST Work Phone: [facility] 06-25-2025 14: Body weight 58.47 kg Jose Luis Lockhart NP Work Phone: [facility] 06-25-2025 14:17-0400 Diastolic blood pressure 60 mm[Hg] Jose Luis Lockhart COMPLIANCE REVIEW SPECIALIST Work Phone: [facility] 06-25-2025 14:17-0400 Heart rate 65 /min Jose Luis Lockhart COMPLIANCE REVIEW SPECIALIST Work Phone: [facility] 06-25-2025 14:17-0400 SaO2% (BldA) [Mass fraction] 98 % Jose Luis Lockhart COMPLIANCE REVIEW SPECIALIST Work Phone: [facility] 06-25-2025 14:17-0400 Systolic blood pressure 108 mm[Hg] Jose Luis Lockhart COMPLIANCE REVIEW SPECIALIST Work Phone: [facility] 06-09-2025 15:17-0400 Body temperature 98.01 [degF] Cynthia Aguilar MD Work Phone: [facility] 06-09-2025 15:17-0400 Body weight 58.3 kg Cynthia Aguilar MD Work Phone: [facility] 06-09-2025 15:17-0400 Diastolic blood pressure 58 mm[Hg] Cynthia Aguilar MD Work Phone: [facility] 06-09-2025 15:17-0400 Heart rate 64 /min Cynthia Aguilar MD Work Phone: [facility] 06-09-2025 15:17-0400 Respiratory rate 14 /min Cynthia Aguilar MD Work Phone: [facility] 06-09-2025 15:17-0400 SaO2% (BldA) [Mass fraction] 96 % Cynthia Aguilar MD Work Phone: [facility] 06-09-2025 15:17-0400 Systolic blood pressure 112 mm[Hg] Cynthia Aguilar MD Work Phone: [facility] 05-28-2025 15:43-0400 Body height 144.8 cm Jose Luis Lockhart COMPLIANCE REVIEW SPECIALIST Work Phone: [facility] 05-28-2025 15:43-0400 Body mass index (BMI) [Ratio] 28.13 kg/m2 Jose Luis Lockhart COMPLIANCE REVIEW SPECIALIST Work Phone: [facility] 05-28-2025 15:43-0400 Body weight 58.97 kg Jose Luis Alstonos COMPLIANCE REVIEW SPECIALIST Work Phone: [facility] 05-28-2025 15:43-0400 Diastolic blood pressure 72 mm[Hg] Jose Luis Alstonos COMPLIANCE REVIEW SPECIALIST Work Phone: [facility] 05-28-2025 15:43-0400 Heart rate 68 /min Jose Luis Alstonos COMPLIANCE REVIEW SPECIALIST Work Phone: [facility] 05-28-2025 15:43-0400 SaO2% (BldA) [Mass fraction] 99 % Jose Luis Alstonos COMPLIANCE REVIEW SPECIALIST Work Phone: [facility] 05-28-2025 15:43-0400 Systolic blood pressure 118 mm[Hg] Jose Luis Alstonos COMPLIANCE REVIEW SPECIALIST Work Phone: [facility] 05-20-2025 14:29-0400 Body height 144.8 cm Patricia Barry MD Work Phone: [facility] 05-20-2025 14:29-0400 Body mass index (BMI) [Ratio] 27.7 kg/m2 Patricia Barry MD Work Phone: [facility] 05-20-2025 14:29-0400 Body weight 58.06 kg Patricia Barry MD Work Phone: [facility] 05-20-2025 14:29-0400 Diastolic blood pressure 54 mm[Hg] Patricia Barry MD Work Phone: [facility] 05-20-2025 14:29-0400 Heart rate 58 /min Patricia Barry MD Work Phone: [facility] 05-20-2025 14:29-0400 Systolic blood pressure 107 mm[Hg] Patricia Barry MD Work Phone: [facility] 05-04-2025 14:40-0400 Diastolic blood pressure 59 mm[Hg] Jamal Alvarez DO Work Phone: [facility] 05-04-2025 14:40-0400 Heart rate 56 /min Jamal Alvarez DO Work Phone: [facility] 05-04-2025 14:40-0400 Respiratory rate 16 /min Jamal Alvarez DO Work Phone: [facility] 05-04-2025 14:40-0400 SaO2% (BldA) [Mass fraction] 100 % Jamal Alvarez DO Work Phone: [facility] 05-04-2025 14:40-0400 Systolic blood pressure 111 mm[Hg] Jamal Alvarez DO Work Phone: [facility] 05-04-2025 13:07-0400 Body height 144.78 cm Jamal Alvarez DO Work Phone: [facility] 05-04-2025 13:07-0400 Body weight 58.06 kg Jamal Alvarez DO Work Phone: [facility] 03-25-2025 14:50-0400 Body height 144.8 cm Jamal Alvarez DO Work Phone: [facility] 03-25-2025 14:50-0400 Body mass index (BMI) [Ratio] 27.85 kg/m2 Jamal Alvarez DO Work Phone: [facility] 03-25-2025 14:50-0400 Body weight 58.38 kg Jamal Alvarez DO Work Phone: [facility] 03-25-2025 14:50-0400 Heart rate 68 /min Jamal Alvarez DO Work Phone: [facility] 03-25-2025 14:50-0400 SaO2% (BldA) [Mass fraction] 98 % Jamal Alvarez DO Work Phone: [facility] 03-15-2025 11:24-0400 Heart rate 80 /min Jamal Alvarez DO Work Phone: [facility] 03-15-2025 11:24-0400 Respiratory rate 18 /min Jamal Alvarez DO Work Phone: [facility] 03-15-2025 08:00-0400 Body temperature 97.8 [degF] Jamaltaya Alvarez DO Work Phone: [facility] 03-15-2025 08:00-0400 Diastolic blood pressure 62 mm[Hg] Jamal Alvarez DO Work Phone: [facility] 03-15-2025 08:00-0400 SaO2% (BldA) [Mass fraction] 95 % Jamaltaya Alvarez DO Work Phone: [facility] 03-15-2025 08:00-0400 Systolic blood pressure 96 mm[Hg] Jamal Alvarez DO Work Phone: [facility] 03-15-2025 06:00-0400 Body weight 60.1 kg Jamal Alvarez DO Work Phone: [facility] 03-14-2025 03:38-0400 Body height 144.78 cm Jamaltaya Alvarez DO Work Phone: [facility] 03-14-2025 03:10-0400 Body temperature 98.4 [degF] Jamal Mylesman DO Work Phone: [facility] 03-14-2025 03:10-0400 Diastolic blood pressure 56 mm[Hg] Jamal Alvarez DO Work Phone: [facility] 03-14-2025 03:10-0400 Heart rate 83 /min Jamal Alvarez DO Work Phone: [facility] 03-14-2025 03:10-0400 Inhaled oxygen flow rate 2 L/min Jamal Alvarez DO Work Phone: [facility] 03-14-2025 03:10-0400 Respiratory rate 20 /min Jamal Alvarez DO Work Phone: [facility] 03-14-2025 03:10-0400 SaO2% (BldA) [Mass fraction] 96 % Jamal Alvarez DO Work Phone: [facility] 03-14-2025 03:10-0400 Systolic blood pressure 110 mm[Hg] Jamal Alvarez DO Work Phone: [facility] 03-13-2025 17:22-0400 Body height 144.78 cm Jamal Alvarez DO Work Phone: [facility] 03-13-2025 17:22-0400 Body weight 60.05 kg Jamal Alvarez DO Work Phone: [facility] 03-05-2025 15:03-0400 Body mass index (BMI) [Ratio] 28.26 kg/m2 Jamal Alvarez DO Work Phone: [facility] 03-05-2025 15:03-0400 Body weight 59.24 kg Jamal Alvarez DO Work Phone: [facility] 03-05-2025 15:03-0400 SaO2% (BldA) [Mass fraction] 97 % Jamal Alvarez DO Work Phone: [facility] 08-25-2024 16:13-0400 Body height 144.8 cm Jose Luis Lockhart COMPLIANCE REVIEW SPECIALIST Work Phone: [facility] 08-25-2024 16:13-0400 Body mass index (BMI) [Ratio] 29.21 kg/m2 Jose Luis Lockhart COMPLIANCE REVIEW SPECIALIST Work Phone: [facility] 08-25-2024 16:13-0400 Body weight 61.24 kg Jose Luis Lockhart COMPLIANCE REVIEW SPECIALIST Work Phone: [facility] 08-25-2024 16:13-0400 Diastolic blood pressure 70 mm[Hg] Jose Luis Lockhart COMPLIANCE REVIEW SPECIALIST Work Phone: [facility] 08-25-2024 16:13-0400 Heart rate 68 /min Jose Luis Lockhart COMPLIANCE REVIEW SPECIALIST Work Phone: [facility] 08-25-2024 16:13-0400 SaO2% (BldA) [Mass fraction] 99 % Jose Luis Lockhart COMPLIANCE REVIEW SPECIALIST Work Phone: [facility] 08-25-2024 16:13-0400 Systolic blood pressure 130 mm[Hg] Jose Luis Lockhart COMPLIANCE REVIEW SPECIALIST Work Phone: [facility] 04-16-2024 16:24-0400 Diastolic blood pressure 66 mm[Hg] DO Jamal Alvarez Work Phone: [facility] 04-16-2024 16:24-0400 Heart rate 91 /min DO Jamal Alvarez Work Phone: [facility] 04-16-2024 16:24-0400 Systolic blood pressure 133 mm[Hg] DO Jamal Alvarez Work Phone: [facility] 04-16-2024 16:00-0400 Body temperature 97.5 [degF] DO Jamal Alvarez Work Phone: [facility] 04-16-2024 16:00-0400 Respiratory rate 16 /min DO Jamal Alvarez Work Phone: [facility] 04-16-2024 16:00-0400 SaO2% (BldA) [Mass fraction] 98 % DO Jamal Alvarez Work Phone: [facility] 04-16-2024 06:00-0400 Body weight 64.5 kg DO Jamal Alvarez Work Phone: [facility] 04-15-2024 14:38-0400 Body height 144.78 cm DO Jamal Alvarez Work Phone: [facility] 04-13-2024 20:50-0400 Diastolic blood pressure 88 mm[Hg] DO Jamal Alvarez Work Phone: [facility] 04-13-2024 20:50-0400 Heart rate 74 /min DO Jamal Alvarez Work Phone: [facility] 04-13-2024 20:50-0400 Respiratory rate 18 /min DO Jamal Alvarez Work Phone: [facility] 04-13-2024 20:50-0400 SaO2% (BldA) [Mass fraction] 92 % DO Jamal Alvarez Work Phone: [facility] 04-13-2024 20:50-0400 Systolic blood pressure 131 mm[Hg] DO Jamal Alvarez Work Phone: [facility] 04-13-2024 15:54-0400 Body height 149.86 cm DO Jamal Alvarez Work Phone: [facility] 04-13-2024 15:54-0400 Body temperature 97.9 [degF] DO Jamal Alvarez Work Phone: [facility] 04-13-2024 15:54-0400 Body weight 66.5 kg DO Jamal Alvarez Work Phone: [facility] 03-10-2024 13:13-0400 Body height 143.5 cm Judit Lora MD Work Phone: [facility] 03-10-2024 13:13-0400 Body mass index (BMI) [Ratio] 32.2 kg/m2 Judit Lora MD Work Phone: [facility] 03-10-2024 13:13-0400 Body weight 66.32 kg Judit Lora MD Work Phone: [facility] 03-10-2024 13:13-0400 Diastolic blood pressure 78 mm[Hg] Judit Lora MD Work Phone: [facility] 03-10-2024 13:13-0400 Heart rate 74 /min Judit Lora MD Work Phone: [facility] 03-10-2024 13:13-0400 Systolic blood pressure 118 mm[Hg] Judit Lora MD Work Phone: [facility] 02-22-2024 09:21-0400 Body height 142.24 cm DO Jamaltaya Alvarez Work Phone: [facility] 02-22-2024 09:21-0400 Body weight 65.77 kg DO Jamal Antonio Work Phone: [facility] 02-21-2024 10:45-0400 Body height 142.24 cm DO Jamal Antonio Work Phone: [facility] 02-21-2024 10:45-0400 Body mass index (BMI) [Ratio] 33.8 kg/m2 DO Jamal Antonio Work Phone: [facility] 02-21-2024 10:45-0400 Body weight 68.49 kg DO Jamal Antonio Work Phone: [facility] 02-21-2024 10:45-0400 Diastolic blood pressure 79 mm[Hg] DO Jamal Antonio Work Phone: [facility] 02-21-2024 10:45-0400 Heart rate 65 /min DO Jamal Alvarez Work Phone: [facility] 02-21-2024 10:45-0400 Systolic blood pressure 131 mm[Hg] DO Jamal Antonio Work Phone: [facility] 02-13-2024 18:46-0400 Body height 142.24 cm DO Jamal Antonio Work Phone: [facility] 02-13-2024 18:46-0400 Body mass index (BMI) [Ratio] 33.9 kg/m2 DO Jamal Antonio Work Phone: [facility] 02-13-2024 18:46-0400 Body temperature 97.1 [degF] DO Jamal Antonio Work Phone: [facility] 02-13-2024 18:46-0400 Body weight 68.6 kg DO Jamal Antonio Work Phone: [facility] 02-13-2024 18:46-0400 Diastolic blood pressure 80 mm[Hg] DO Jamal Antonio Work Phone: [facility] 02-13-2024 18:46-0400 Heart rate 74 /min DO Jamal Alvarez Work Phone: [facility] 02-13-2024 18:46-0400 Respiratory rate 18 /min DO Jamal Alvarez Work Phone: [facility] 02-13-2024 18:46-0400 SaO2% (BldA) [Mass fraction] 94 % DO Jamal Alvarez Work Phone: [facility] 02-13-2024 18:46-0400 Systolic blood pressure 110 mm[Hg] DO Jamal Alvarez Work Phone: [facility] 12-28-2023 13:29-0500 Body temperature 97.59 [degF] Ubaldo Dubose MD Work Phone: [facility] 12-28-2023 13:29-0500 Body weight 79.38 kg Ubaldo Dubose MD Work Phone: [facility] 12-28-2023 13:29-0500 Diastolic blood pressure 65 mm[Hg] Ubaldo Dubose MD Work Phone: [facility] 12-28-2023 13:29-0500 Heart rate 67 /min Ubaldo Dubose MD Work Phone: [facility] 12-28-2023 13:29-0500 Respiratory rate 16 /min Ubaldo Dubose MD Work Phone: [facility] 12-28-2023 13:29-0500 SaO2% (BldA) [Mass fraction] 97 % Ubaldo Dubose MD Work Phone: [facility] 12-28-2023 13:29-0500 Systolic blood pressure 137 mm[Hg] Ubaldo Dubose MD Work Phone: [facility] 10-21-2021 11:08-0500 Diastolic blood pressure 70 mm[Hg] Jamal Alvarez Work Phone: [facility] DO Work Phone: 10-21-2021 11:08-0500 Systolic blood pressure 132 mm[Hg] Jamal Alvarez Work Phone: [facility] DO Work Phone: 10-21-2021 11:07-0500 Body height 147.32 cm Jamal Alvarez Work Phone: [facility] DO Work Phone: 10-21-2021 11:07-0500 Body mass index (BMI) [Ratio] 30.31 kg/m2 Jamal Mylesman Work Phone: [facility] DO Work Phone: 10-21-2021 11:07-0500 Body surface area Derived from formula 1.59 m2 Jamal Alvarez Work Phone: [facility] DO Work Phone: 10-21-2021 11:07-0500 Body weight 65.77 kg Jamal Mylesman Work Phone: [facility] DO Work Phone: 10-21-2021 11:07-0500 Diastolic blood pressure 70 mm[Hg] Jamal Alvarez Work Phone: [facility] DO Work Phone: 10-21-2021 11:07-0500 Heart rate 58 /min Jamal Alvarez Work Phone: [facility] DO Work Phone: 10-21-2021 11:07-0500 Systolic blood pressure 132 mm[Hg] Jamal Alvarez Work Phone: [facility] DO Work Phone: Encounters Encounter Date Encounter Type Care Provider Facility Start: 07-13-2025 [facility] Facility:[facility] Start: 07-13-2025 Encounter for other preprocedural examination JAMAL ALVAREZ [facility] Start: 07-13-2025 End: 07-13-2025 Telephone encounter Cynthia Aguilar MD Work Phone: General Surgery Comment on above: Patient Question; Appointment Start: 07-10-2025 End: 07-10-2025 ambulatory [facility] Facility:[facility] Start: 07-10-2025 End: 07-10-2025 Patient encounter procedure Anastasia Lovejm LANDON Work Phone: Audiology Comment on above: Dysfunction of both eustachian tubes (Pr imary Dx) Middle ear effusion, right (Primary Dx); Chronic otitis media of both ears Start: 07-01-2025 End: 07-01-2025 Admission to same day surgery center Malik Brown RN Pre Anesthesia Comment on above: Preparations For Surgery (PACC) Start: 07-01-2025 End: 07-01-2025 ambulatory Malik Brown RN Pre Anesthesia Start: 06-25-2025 End: 06-25-2025 ambulatory JOSE LUIS LOCKHART Not Available Start: 06-25-2025 End: 06-25-2025 ambulatory JOSE LUIS LOCKHART Not Available Start: 06-25-2025 End: 06-25-2025 Office outpatient visit 25 minutes Jose Luis Lockhart NP Work Phone: [facility] Comment on above: Pure hypercholesterolemia (Primary Dx); Prediabetes; 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 (HCC); Chronic obstructive pulmonary disease, unspecified COPD type (HCC); Bronchiectasis without complication (HCC); Seizure disorder (HCC); Pulmonary hypertension (HCC); Acquired hypothyroidism ; Left leg weakness; 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; Chronic midline thoracic back pain; Lumbar spine pain; Agitation Start: 06-24-2025 End: 06-24-2025 Patient encounter procedure Lisa William MD, PhD Work Phone: Neurology Comment on above: 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, intractable (HCC) (Primary Dx) Start: 06-24-2025 End: 06-24-2025 Telemedicine consultation with patient Lisa William MD, PhD Work Phone: Neurology Start: 06-24-2025 End: 06-24-2025 ambulatory SELF Facility:[facility] Start: 06-09-2025 End: 06-09-2025 ambulatory JAMAL ALVAREZ Facility:[facility] Start: 06-09-2025 End: 06-09-2025 Office outpatient new 30 minutes Cynthia Aguilar MD Work Phone: General Surgery Comment on above: Symptomatic cholelithiasis Start: 06-04-2025 End: 06-04-2025 ambulatory Quintin Sloan PA-C Work Phone: Otolaryngology Comment on above: Peds hearing test with myringotomy with physician following Start: 06-02-2025 End: 06-02-2025 ambulatory JAMAL ALVAREZ Facility:[facility] Start: 05-29-2025 End: 06-01-2025 Refill Ubaldo Dubose MD Work Phone (unformatted): [phone] Pulmonology [facility] Comment on above: Refill Request Start: 05-28-2025 End: 05-28-2025 Office outpatient visit 25 minutes Jose Luis Lockhart NP Work Phone: [facility] Comment on above: Generalized abdominal pain (Primary Dx); Diarrhea, unspecified type; Nausea and vomiting, unspecified vomiting type; Other specified intestinal obstruction, unspecified whether partial or complete (HCC); Diverticulosis Start: 05-28-2025 End: 05-28-2025 ambulatory JAMAL ALVAREZ Not Available Start: 05-28-2025 End: 05-28-2025 Patient encounter procedure Flex Ramos MD -[facility] Work Phone: Start: 05-28-2025 End: 05-28-2025 ambulatory Jmaal Alvarez DO Work Phone: [facility] Work Phone: Start: 05-22-2025 End: 05-22-2025 ambulatory DEE JACKSON Not Available Start: 05-22-2025 End: 05-22-2025 Office outpatient visit 15 minutes Dee Jackson COMPLIANCE REVIEW SPECIALIST Work Phone: [facility] Comment on above: Acute bilateral mastoiditis (Primary Dx) ; Other specified hearing loss of both ears Start: 05-20-2025 End: 05-20-2025 Office outpatient new 45 minutes Patricia Barry MD Work Phone: [facility] Comment on above: OME (otitis media with effusion), right (Primary Dx) Start: 05-20-2025 End: 05-20-2025 ambulatory PATRICIA BARRY Not Available Start: 05-20-2025 End: 05-20-2025 Bamboo flowsheet Patricia Barry MD Work Phone: [facility] Start: 05-20-2025 End: 05-20-2025 Bamboo flowsheet Patricia Barry MD Work Phone: [facility] Start: 05-07-2025 End: 05-07-2025 Patient encounter procedure Jamal Alvarez DO -[facility] [place] Work Phone: Start: 05-07-2025 End: 05-07-2025 ambulatory Jamal Alvarez DO Work Phone: [facility] Work Phone: Start: 05-07-2025 End: 05-07-2025 External Result Encounter Jamal Alvarez DO Work Phone: [facility] Unsolicited Start: 05-07-2025 End: 05-07-2025 External Result Encounter Jamal Alvarez DO Work Phone: [facility] Unsolicited Start: 05-04-2025 ambulatory [facility] Start: 05-04-2025 End: 05-04-2025 ambulatory Imad Asaad Facility:[facility] Start: 05-04-2025 Non-patient / Non-visit Flex Ramos MD -[facility] Work Phone: Start: 04-08-2025 End: 04-08-2025 Follow-up encounter Jamal Alvarez DO Work Phone: [facility] Comment on above: Ankylosing spondylitis lumbar region (CM S/HCC) (Primary Dx) Start: 04-07-2025 End: 04-07-2025 ambulatory JAMAL ALVAREZ Not Available Start: 03-25-2025 End: 03-25-2025 ambulatory JAMAL ALVAREZ Not Available Start: 03-25-2025 End: 03-25-2025 Transitional care manage srvc 14 day discharge Jamal Alvarez DO Work Phone: [facility] Comment on above: Bronchiectasis with acute lower respirat ory infection (CMS/HCC) (Primary Dx); Pneumonia due to [...] Bamboo flowsheet Jamal Alvarez DO Work Phone: [facility] Start: 03-25-2025 End: 03-25-2025 Bamboo flowsheet Jamal Alvarez DO Work Phone: [facility] Start: 03-20-2025 End: 03-20-2025 Refill Lisa William MD, PhD Work Phone: Neurology Start: 03-18-2025 End: 03-18-2025 Chart abstracting Ubaldo Dubose MD Work Phone: Pulmonary Medicine Start: 03-17-2025 End: 03-18-2025 Refill Ubaldo Dubose MD Work Phone: Pulmonology [facility] Comment on above: Refill Request Start: 03-14-2025 Non-patient / Non-visit Jamal Alvarez DO Work Phone: [facility] Cardiology Work Phone: Start: 03-14-2025 End: 03-15-2025 Evaluation and management of inpatient Jamal Alvarez DO Work Phone: [facility] [place] [facility] S[facility] Work Phone: Start: 03-05-2025 End: 03-05-2025 Office outpatient visit 25 minutes Jamal Alvarez DO Work Phone: [facility] Comment on above: Bronchiectasis without complication (CMS /HCC) (Primary Dx); Edema, unspecified type; Recurrent UTI; Seizure (CMS/HCC); Traumatic brain injury with loss of consciousness, subsequent encounter; DISH (diffuse idiopathic skeletal hyperostosis); Hypothyroidism, unspecified type (CMS/HCC); Combined hyperlipidemia (CMS/HCC); Medicare annual wellness visit, subsequent; Advance care planning Start: 03-05-2025 End: 03-05-2025 Patient encounter procedure Jamal Alvarez DO Work Phone: [facility] Start: 03-05-2025 End: 03-05-2025 ambulatory AJMAL ALVAREZ Not Available Start: 02-25-2025 End: 02-25-2025 ambulatory Jamal Alvarez DO Work Phone: [facility] Work Phone: Start: 02-25-2025 End: 02-25-2025 Departed Referred Jamal Alvarez DO Work Phone: [facility] Start: [...] encounter procedure Jamal Alvarez DO Work Phone: [facility] [place] Work Phone: Start: 02-06-2025 End: 02-06-2025 ambulatory Jamal Alvarez DO Work Phone: [facility] Work Phone: Start: 02-06-2025 End: 02-07-2025 External Result Encounter Jamal Alvarez DO Work Phone: [facility] Unsolicited Start: 02-06-2025 End: 02-07-2025 External Result Encounter Jamal Alvarez DO Work Phone: [facility] Unsolicited Start: 01-12-2025 End: 01-13-2025 Telephone encounter Lisa William MD, PhD Work Phone: Neurology Comment on above: Medication Question Start: 12-24-2024 End: 12-24-2024 ambulatory SELF Facility:[facility] Start: 12-24-2024 End: 12-24-2024 Patient encounter procedure Lisa William MD, PhD Work Phone: Neurology Comment on above: 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, intractable (HCC) (Primary Dx) Start: 12-24-2024 End: 12-24-2024 Telemedicine consultation with patient iLsa William MD, PhD Work Phone: Neurology Start: 12-11-2024 End: 12-12-2024 Refill Ubaldo Dubose MD Work Phone: Pulmonology [facility] Comment on above: Refill Request Start: 11-20-2024 End: 11-20-2024 Patient encounter procedure Jamal Alvarez DO Work Phone: [facility] [place] Work Phone: Start: 11-20-2024 End: 11-20-2024 ambulatory Jamal Antonio DO Work Phone: [facility] Work Phone: Start: 09-08-2024 End: 09-08-2024 Telephone encounter Ubaldo Dubose MD Work Phone: Pulmonary Medicine Comment on above: Missed VV Start: 08-30-2024 End: 09-01-2024 Refill Ubaldo Dubose MD Work Phone: Pulmonology [facility] Comment on above: Refill Request Start: 08-25-2024 End: 08-25-2024 ambulatory JAMAL ALVAREZ Not Available Start: 08-25-2024 End: 08-25-2024 Office outpatient visit 25 minutes Jose Luis Lockhart NP Work Phone: [facility] Comment on above: Recurrent UTI (Primary Dx); Bronchiectasis without complication (CMS/HCC); Atherosclerosis of [...] 08-24-2024 End: 08-24-2024 Clinisync Result Encounter Jamal A Antonio DO Work Phone: [facility] External Department Unsolicited Start: 08-24-2024 End: 08-24-2024 Clinisync Result Encounter Jamal Adrian Antonio DO Work Phone: [facility] External [facility] Unsolicited Start: 08-22-2024 End: 08-27-2024 ambulatory Lisa William MD, PhD Work Phone: Neurology Start: 08-22-2024 End: 08-27-2024 Patient encounter procedure Lisa William MD, PhD Work Phone: Neurology Comment on above: New med Lamictal effects Start: 08-13-2024 End: 08-13-2024 ambulatory JAMAL ALVAREZ Facility:[facility] Start: 08-13-2024 End: 08-13-2024 Patient encounter procedure Lisa William MD, PhD Work Phone: Neurology Comment on above: 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, intractable (HCC) (Primary Dx) Start: 08-13-2024 End: [...] above: Orders Start: 06-12-2024 End: 06-12-2024 ambulatory [facility] Start: 06-05-2024 Telephone encounter Ubaldo Dubose MD Work Phone: Pulmonary Medicine Comment on above: Certifcate of Medical Necessity Start: 05-05-2024 End: 05-05-2024 ambulatory Ubaldo Dubose MD Work Phone: Pulmonology [facility] Comment on above: Bronchiectasis without complication (HCC ) (Primary Dx); Yeast infection Start: 05-05-2024 End: 05-05-2024 Telemedicine consultation with patient Ubaldo Dubose MD Work Phone: Pulmonology [facility] Start: 04-30-2024 End: 04-30-2024 ambulatory [facility] Work Phone: Pulmonary Lab Comment on above: Spirometry Start: 04-30-2024 End: 04-30-2024 Patient encounter procedure [facility] Work Phone: Pulmonary Lab Start: 04-22-2024 End: 04-22-2024 Patient encounter procedure Flex Juarez MD Work Phone: Neurosurgery Comment on above: Convulsions, unspecified convulsion type (HCC) (Primary Dx) Start: 04-22-2024 End: 04-22-2024 ambulatory DO Jamal Alvarez Work Phone: [facility] Work Phone: Start: 04-21-2024 Telephone encounter Flex Juarez MD Work Phone: Neurology Comment on above: Future Appointment (NEW PT, [place], ANY ([facility]? - PT PREF [place])) Start: 04-16-2024 End: 04-16-2024 Non-patient / Non-visit DO Jamal Alvarez Work Phone: [facility] Work Phone: Start: 04-13-2024 End: 04-16-2024 Evaluation and management of inpatient DO Jamal Alvarez Work Phone: [facility] [place] [facility] Work Phone: Start: 03-10-2024 End: 03-10-2024 ambulatory [facility] Start: 03-10-2024 End: 03-10-2024 Office consultation new/estab patient 60 min Judit Lora MD Work Phone: [facility] Comment on above: Shortness of breath; [...] ambulatory Ubaldo Dubose MD Work Phone: Pulmonology [facility] Comment on above: Bronchiectasis without complication (HCC ) (Primary Dx); Aspiration pneumonitis (HCC); Traumatic brain injury with loss of consciousness, sequela (HCC) Start: 03-03-2024 End: 03-03-2024 Telemedicine consultation with patient Ubaldo Dubose MD Work Phone: [facility] Start: 02-26-2024 Telephone encounter Ubaldo Dubose MD Work Phone: 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 Pulmonary Medicine Comment on above: Home nebulizer order Start: 02-22-2024 End: 02-22-2024 ambulatory DO Jamal Alvarez Work Phone: [facility] Work Phone: Start: 02-22-2024 End: 02-22-2024 Departed Referred DO Jamal Alvarez Work Phone: [facility] Work Phone: Start: 02-21-2024 End: 02-21-2024 ambulatory DO Jamal Alvarez Work Phone: [facility] Work Phone: Start: 02-21-2024 End: 02-21-2024 Discharged Recurring DO Jamal Alvarez Work Phone: [facility] Start: 02-21-2024 Registered Recurring DO Jamal Alvarez Work Phone: [facility] Start: 02-21-2024 End: 02-21-2024 ambulatory DO Jamal Alvarez Work Phone: [facility] Work Phone: Start: 02-21-2024 End: 02-21-2024 Patient encounter procedure DO Jamal Alvarez Work Phone: [facility] Physician [facility] Gastro[facility]ology Work Phone: Start: 02-19-2024 Registered Recurring DO Jamal Alvarez Work Phone: [facility] Start: 02-15-2024 Orders Only Ubaldo Dubose MD Work Phone: Pulmonary Medicine Comment on above: Bronchiectasis without complication (HCC ) (Primary Dx) Start: 02-13-2024 End: 02-13-2024 ambulatory DO Jamal Alvarez Work Phone: [facility] Work Phone: Start: 02-13-2024 End: 02-13-2024 Patient encounter procedure DO Jamal Alvarez Work Phone: [facility] Physician [facility] [place] Work Phone: Start: 02-12-2024 Registered Recurring DO Jamal Alvarez Work Phone: [facility] Start: 01-23-2024 End: 01-23-2024 ambulatory DO Jamal Alvarez Work Phone: [facility] Work Phone: Start: 01-23-2024 End: 01-23-2024 Patient encounter procedure DO Jamal Alvarez Work Phone: [facility] [place] Work Phone: Start: 01-22-2024 Telephone encounter Ubaldo Dubose MD Work Phone: Pulmonary Medicine Comment on above: Received Outside Medical Records Start: 01-14-2024 Registered Recurring DO Jamal Alvarez Work Phone: [facility] Therapy Start: 12-28-2023 End: 12-28-2023 Patient encounter procedure Ubaldo Dubose MD Work Phone: Pulmonary Medicine Comment on above: Bronchiectasis without complication (HCC ) (Primary Dx); Aspiration pneumonitis (HCC); Traumatic brain injury with loss of consciousness, sequela (HCC) Start: 12-27-2023 End: 12-27-2023 Subsequent hospital visit by physician Arrival Time Radiology Work Phone: Radiology Pet CT Comment on above: Interstitial pulmonary disease (HCC) [J8 4.9] Start: 12-25-2023 End: 12-25-2023 ambulatory Pulm Dana Work Phone: Pulmonary Lab Comment on above: Spirometry Start: 12-25-2023 End: 12-25-2023 Patient encounter procedure Pulm Lab [facility] Work Phone: [facility] Start: 11-21-2023 End: 11-21-2023 ambulatory DO Jamal Alvarez Work Phone: [facility] Work Phone: Start: 11-21-2023 End: 11-21-2023 Patient encounter procedure DO Jamal Alvarez Work Phone: [facility] [place] Work Phone: Start: 10-16-2023 End: 10-16-2023 ambulatory DO Jamal Alvarez Work Phone: [facility] Work Phone: Start: 10-16-2023 End: 10-16-2023 Patient encounter procedure DO Jamal Alvarez Work Phone: [facility] [place] Work Phone: Start: 02-10-2023 End: 02-10-2023 ambulatory BRUCE DIAB . Facility:[facility]1 Start: 12-26-2022 End: 12-26-2022 ambulatory DO Jamal Alvarez Work Phone: [facility] Work Phone: Start: 12-26-2022 End: 12-26-2022 Patient encounter procedure DO Jamal Alvarez Work Phone: [facility] Work Phone: Start: 07-26-2022 Orders Only Everton Gallego Jose Work Phone: Hematology/Oncology Comment on above: Dermatophytosis of nail (Primary Dx); Well controlled type 2 diabetes mellitus with neurological manifestations (HCC); Unspecified hypothyroidism Dermatophytosis of n ail (Primary Dx) Start: 04-05-2022 End: 04-05-[address] JAMAL ALVAREZ Facility:[facility]1 Start: 03-27-2022 End: 03-28-[address] JAMAL ALVAREZ Facility:[facility]1 Start: 02-03-2022 Orders Only Joanne Bullard RN Hematology/Oncology Comment on above: Hypothyroidism, adult (Primary Dx); 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); Mixed hyperlipidemia Start: 10-21-2021 Office consultation new/estab patient 60 min Jamal Alvarez Work Phone: [facility] 250 DO Work Phone: Start: 10-21-2021 Office outpatient new 45 minutes aJmal Alvarez Work Phone: [facility] Work Phone: Patient encounter status Jamal Alvarez Work Phone: [facility] 250 DO Work Phone: Procedures Date Procedure Procedure Detail Performing Clinician Start: 07-10-2025 HEARING TEST/AUDIOGRAM Anastasia Daniel LANDON Work Phone: Start: 05-07-2025 ISTAT XRAY CRE Jamal Alvarez DO Work Phone: Start: 05-07-2025 CT of thorax with contrast Jamal Alvarez DO Work Phone: Start: 03-14-2025 Bacteria identified in Blood by Culture Jamal Alvarez DO Work Phone: Start: 03-13-2025 CT angiography of thorax Jamal Alvarez DO Work Phone: Start: 03-13-2025 CT of head without contrast Jamal Alvarez DO Work Phone: Start: 03-13-2025 Plain chest X-ray Eze Alvarez DO Work Phone: Start: 03-13-2025 Respiratory Panel (PCR) Jamal Alvarez DO Work Phone: Start: 03-13-2025 Urine culture Jamal Ag cope DO Work Phone: Start: 02-25-2025 Culture bacterial quanttative colony count urine Jamal Adrian Alvarez DO Work Phone: Start: 02-25-2025 URINE CULTURE - [facility] kali Adrian Alvarez DO Work Phone: Start: 02-25-2025 Urine culture Jamal Ag chrissybreezy DO Work Phone: Start: 02-06-2025 Complete blood count with white cell differential, automated Jamal Adrian Alvarez DO Work Phone: Start: 02-06-2025 Comprehensive metabo lic panel Jamal Mylesman DO Work Phone: Start: 02-06-2025 Lipid panel Jamal Campbell Antonio DO Work Phone: Start: 02-06-2025 Urine albumin quantitative Jamal Mylesman DO Work Phone: Start: 08-24-2024 MLR HEMOGLOBIN A1C Wilner Mylesman DO Work Phone: Start: 08-08-2024 ALL CBC [...] Ct thorax w/o contra st material Leilani Andesron RN Start: 12-25-2023 Brncdilat rspse spmt ry pre&post-brncdilat admn Leilani Anderson RN Start: 11-21-2023 Plain chest X-ray DO Noe bass Antonio Work Phone: Implantation of sacr al nerve stimulator Jamal Alvarez Work Phone: Total colonoscopy Jamal Alvarez Work Phone: Comment on above: 01/30/2007; Plan of Treatment Date Care Activity Detail Author Start: 02-07-2028 Diabetes Screening Diabetes Screening [facility] Start: 08-24-2027 Diabetes Screening Diabetes Screening [facility] Start: 05-13-2027 Glaucoma screening Diabetes: Retinopathy Screening [facility] Start: 02-19-2027 Diabetes Screening Diabetes Screening [facility] Start: 03-11-2026 End: 03-11-2026 Patient encounter procedure 03/11/2026 4:00 PM EDT Office Visit [facility] [place] [facility] [address] [place] [id number] [facility] Internal Medicine Start: 03-05-2026 Medicare Annual Wellness (AWV) Medicare Annual Wellnes s (AWV) [facility] Healthcare Start: 02-12-2026 Glaucoma screening Diabetes: Retinopathy Screening [facility] Start: 02-06-2026 Urine screening for protein Diabetes: Urine Protein Screening [facility] Healthcare Start: 12-22-2025 End: 06-20-2026 CBC W Auto Differential panel - Blood CBC auto differential Lab Routine Acquired hypothyroidism Expected: 12/22/2025 (Approximate), Expires: 06/20/2026 [facility] Healthcare Comment on above: Expected: 12/22/2025 (Approximate), Expi res: 06/20/2026 Start: 12-22-2025 End: 06-20-2026 Comprehensive metabolic 2000 panel - Serum or Plasma Comprehensive metabolic panel Lab Routine Prediabetes 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 (HCC) Seizure disorder (HCC) Expected: 12/22/2025 (Approximate), Expires: 06/20/2026 [facility] Healthcare Comment on above: Expected: 12/22/2025 (Approximate), Expi res: 06/20/2026 Start: 12-22-2025 End: 06-20-2026 Hemoglobin a1c with eag Hemoglobin a1c with eag Lab Routine Prediabetes Expected: 12/22/2025 (Approximate), Expires: 06/20/2026 [facility] Work Phone: Comment on above: Expected: 12/22/2025 (Approximate), Expi res: 06/20/2026 Start: 12-22-2025 End: 06-20-2026 Lipid 1996 panel - Serum or Plasma Lipid panel Lab Routine Pure hypercholesterolemia Expected: 12/22/2025 (Approximate), Expires: 06/20/2026 [facility] Healthcare Comment on above: Expected: 12/22/2025 (Approximate), Expi res: 06/20/2026 Start: 12-22-2025 End: 06-20-2026 Magnesium [Mass/volume] in Serum or Plasma Magnesium Lab Routine Seizure disorder (HCC) Expected: 12/22/2025 (Approximate), Expires: 06/20/2026 [facility] Healthcare Comment on above: Expected: 12/22/2025 (Approximate), Expi res: 06/20/2026 Start: 12-22-2025 End: 06-20-2026 Thyrotropin [Units/volume] in Serum or Plasma TSH Lab Routine Acquired hypothyroidism Expected: 12/22/2025 (Approximate), Expires: 06/20/2026 [facility] Healthcare Comment on above: Expected: 12/22/2025 (Approximate), Expi res: 06/20/2026 Start: 10-26-2025 Screening for osteoporosis Bone Density Scan [facility] Start: 09-10-2025 End: 09-10-2025 Patient encounter procedure [facility] Start: 08-10-2025 End: 08-10-2025 Patient encounter procedure 08/10/2025 2:30 PM EDT Office Visit [facility] [address] [facility] [address] [place] [address] Patricia Barry MD [address] [facility] [address] [place] [address] [facility] Start: 08-06-2025 End: 08-06-2025 Patient encounter procedure 08/06/2025 3:20 PM EDT Office Visit General Surgery [address] [facility] [place] [address] Cynthia Aguilar MD [address] [facility] [place] [address] 2 wk s/p Lap trinidad poss open poss grams General Surgery Comment on above: 2 wk s/p Lap trinidad poss open poss grams Start: 08-05-2025 End: 08-05-2025 Clinical Support 08/05/2025 3:00 PM EDT Clinical Support [facility] [address] [place] [phone] Tasia Casillas, [facility] [address] [facility] [place] [address] [facility] Start: 07-28-2025 Diabetes Screening Diabetes Screening [facility] Start: 07-24-2025 End: 07-24-2025 Admission to same day surgery center 07/24/2025 12:00 PM EDT - 07/24/2025 2:05 PM EDT Surgery [facility] Surgery [address] [place] [address] Cynthia Aguilar MD [address] [place] [address] LAPAROSCOPIC CHOLECYSTECTOMY POSSIBLE OPEN [facility] Surgery Comment on above: LAPAROSCOPIC CHOLECYSTECTOMY POSSIBLE OP EN Start: 07-24-2025 End: 07-24-2025 Laparoscopy surg cholecystectomy LAPAROSCOPIC CHOLECYSTECTOMY POSSIBLE OPEN Symptomatic cholelithiasis 07/24/2025 12:00 PM EDT AV OR Start: 07-24-2025 Subsequent hospital visit by physician 07/24/2025 12:00 PM EDT Hospital Encounter [facility] Surgery [address] [place] [address] Cynthia Aguilar MD [address] [facility] [place] [address] Symptomatic cholelithiasis [K80.20] [facility] Surgery Comment on above: Symptomatic cholelithiasis [K80.20] Start: 07-14-2025 End: 07-14-2025 Patient encounter procedure 07/14/2025 3:00 PM EDT Office Visit Audiology [address] [address] Dee Pollard, BARBI [address] [place] [address] Audio Audiology Comment on above: Audio Start: 07-13-2025 End: 07-13-2025 Patient encounter procedure 07/13/2025 7:00 PM EDT PAT Pre Anesthesia [address] [place] [address] 1, Pacc Rej [address] [place] [address] Lap trinidad poss open poss grams gen Zoe Pre Anesthesia Comment on above: Lap trinidad poss open poss grams gen Zoe Start: 07-10-2025 End: 07-10-2025 Patient encounter procedure Audiology Comment on above: 60 minute hearing test possible tubes Start: 07-06-2025 Influenza vaccination Influenza Vaccine (#1) [facility] Start: 06-25-2025 End: 06-25-2025 Patient encounter procedure [facility] Start: 06-24-2025 End: 06-24-2025 Follow-up encounter 06/24/2025 3:00 PM EDT [facility] Neurology [address] [place] [address] Lisa William MD, PhD [address] [place] [address] 6 months follow up-Focal epilepsy Neurology Comment on above: 6 months follow up-Focal epilepsy Start: 06-11-2025 End: 06-11-2025 Patient encounter procedure 06/11/2025 3:30 PM EDT Office Visit [facility] [address] [place] [phone] [facility] Start: 06-02-2025 End: 06-02-2025 Patient encounter procedure 06/02/2025 3:25 PM EDT Office Visit Otolaryngology [address] [place] [address] Quintin Sloan PA-C [address] [place] [address] Fluid in her ears for a couple months, Quintin byrne Otolaryngology Comment on above: Fluid in her ears for a couple months, Juan Miguel byrne Start: 05-29-2025 End: 06-27-2025 Basic metabolic 1998 panel - Serum or Plasma Basic metabolic panel Lab Routine Generalized abdominal pain Diarrhea, unspecified type Nausea and vomiting, unspecified vomiting type Other specified intestinal obstruction, unspecified whether partial or complete (HCC) Diverticulosis Expected: 05/29/2025 (Approximate), Expires: 06/27/2025 [facility] Comment on above: Expected: 05/29/2025 (Approximate), Expi res: 06/27/2025 Start: 05-29-2025 End: 06-27-2025 CBC W Auto Differential panel - Blood CBC and differential Lab Routine Generalized abdominal pain Diarrhea, unspecified type Nausea and vomiting, unspecified vomiting type Other specified intestinal obstruction, unspecified whether partial or complete (HCC) Diverticulosis Expected: 05/29/2025 (Approximate), Expires: 06/27/2025 [facility] Comment on above: Expected: 05/29/2025 (Approximate), Expi res: 06/27/2025 Start: 05-29-2025 End: 06-27-2025 Hepatic function 2000 panel - Serum or Plasma Hepatic function panel Lab Routine Generalized abdominal pain Diarrhea, unspecified type Nausea and vomiting, unspecified vomiting type Other specified intestinal obstruction, unspecified whether partial or complete (HCC) Diverticulosis Expected: 05/29/2025 (Approximate), Expires: 06/27/2025 [facility] Comment on above: Expected: 05/29/2025 (Approximate), Expi res: 06/27/2025 Start: 05-29-2025 End: 06-27-2025 Lipase [Enzymatic activity/volume] in Serum or Plasma Lipase Lab Routine Generalized abdominal pain Diarrhea, unspecified type Nausea and vomiting, unspecified vomiting type Other specified intestinal obstruction, unspecified whether partial or complete (HCC) Diverticulosis Expected: 05/29/2025 (Approximate), Expires: 06/27/2025 [facility] Healthcare Comment on above: Expected: 05/29/2025 (Approximate), Expi res: 06/27/2025 Start: 05-29-2025 End: 06-27-2025 Urinalysis complete panel - Urine Urinalysis with microscopic Lab Routine Generalized abdominal pain Diarrhea, unspecified type Nausea and vomiting, unspecified vomiting type Other specified intestinal obstruction, unspecified whether partial or complete (HCC) Diverticulosis Expected: 05/29/2025 (Approximate), Expires: 06/27/2025 [facility] Comment on above: Expected: 05/29/2025 (Approximate), Expi res: 06/27/2025 Start: 05-29-2025 End: 05-29-2025 Professional / ancillary services management 05/29/2025 12:15 PM EDT Ancillary Procedure [facility] [address] [facility] [place] [address] [facility] [address] Start: 05-28-2025 End: 08-28-2025 CT Abdomen and Pelvis WO and W contrast IV CT abdomen pelvis w and wo IV contrast Imaging Routine Generalized abdominal pain Diarrhea, unspecified type Nausea and vomiting, unspecified vomiting type Other specified intestinal obstruction, unspecified whether partial or complete (HCC) Diverticulosis Expected: 05/28/2025 (Approximate), Expires: 08/28/2025 [facility] Work Phone: Comment on above: Expected: 05/28/2025 (Approximate), Expi res: 08/28/2025 Start: 05-22-2025 End: 05-22-2025 Patient encounter procedure 05/22/2025 1:00 PM EDT Office Visit [facility] IM [address] [place] [address] [facility] IM Start: 05-20-2025 End: 05-20-2025 Patient encounter procedure 05/20/2025 2:40 PM EDT Office Visit [facility] [address] [place] [phone] Patricia Barry MD [address] [place], [place] [id number] Arrived [facility] Comment on above: Arrived Start: 05-08-2025 Hemoglobin A1c measurement Diabetes: Hemoglobin A1C [facility] Start: 05-04-2025 [facility] Start: 03-15-2025 [facility] Start: 03-14-2025 Bacteria identified in Blood by Culture Blood Culture [facility] Start: 03-14-2025 Microbial culture of sputum [facility] Start: 03-14-2025 Physical therapy procedure [facility] Start: 03-14-2025 Referral to extract puller [facility] Start: 03-14-2025 Referral to occupational therapist [facility] Start: 03-14-2025 End: 03-14-2025 [facility] Start: 03-14-2025 Hospital admission [facility] Start: 03-14-2025 [facility] Start: 03-13-2025 CT angiography of thorax CT angio chest PE protocol [facility] Start: 03-13-2025 CT Chest [facility] Start: 03-13-2025 End: 03-13-2025 Urine culture [facility] Start: 03-13-2025 Bacteria identified in Urine by Culture Urine Culture [facility] Start: 03-05-2025 End: 03-05-2025 Patient encounter procedure 03/05/2025 3:00 PM EDT Office Visit [facility] [address] [place] [address] Jamal Alvarez DO [address] [place] [address] [facility] Start: 02-25-2025 Urine culture [facility] Start: 02-25-2025 Bacteria identified in Urine by Culture [facility] Work Phone: Start: 02-23-2025 End: 02-23-2025 Patient encounter procedure 02/23/2025 3:15 PM EDT Office Visit [facility] [address] [place] [address] Jamal Alvarez, DO [address] [facility] [place] [address] [facility] IM Start: 02-23-2025 End: 08-25-2025 CBC panel - Blood by Automated count CBC Lab Routine Medication management Expected: 02/23/2025, Expires: 08/25/2025 [facility] Comment on above: Expected: 02/23/2025, Expires: Start: 02-23-2025 End: 08-25-2025 Comprehensive metabolic 2000 panel - Serum or Plasma Comprehensive metabolic panel Lab Routine 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) Expected: 02/23/2025, Expires: 08/25/2025 [facility] Work Phone: Comment on above: Expected: 02/23/2025, Expires: Start: 02-23-2025 End: 08-25-2025 Hemoglobin a1c with eag Hemoglobin a1c with eag Lab Routine 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) Expected: 02/23/2025, Expires: 08/25/2025 [facility] Comment on above: Expected: 02/23/2025, Expires: Start: 02-23-2025 End: 08-25-2025 Lipid 1996 panel - Serum or Plasma Lipid panel Lab Routine Combined hyperlipidemia (CMS/HCC) Expected: 02/23/2025, Expires: 08/25/2025 [facility] Comment on above: Expected: 02/23/2025, Expires: Start: 02-23-2025 End: 08-25-2025 Thyrotropin [Units/volume] in Serum or Plasma TSH Lab Routine Hypothyroidism, unspecified type (CMS/HCC) Expected: 02/23/2025, Expires: 08/25/2025 [facility] Comment on above: Expected: 02/23/2025, Expires: Start: 02-21-2025 Medicare Annual Wellness (AWV) Medicare Annual Wellnes s (AWV) [facility] Start: 02-21-2025 Thyroid stimulating hormone measurement TSH Level [facility] Start: 02-21-2025 Urine screening for protein Diabetes: Urine Protein Screening [facility] Start: 02-19-2025 Lipid panel Lipid Panel [facility] Start: 02-06-2025 [facility] Start: 02-03-2025 DIABETES SCREEN DIABETES SCREEN [facility] Start: 12-24-2024 End: 12-24-2024 Follow-up encounter 12/24/2024 3:00 PM EST [facility] Neurology [address] [place] [address] Lisa William MD, PhD [address] [place] [address] Epilepsi follow up Neurology Comment on above: Epilepsi follow up Start: 11-24-2024 Hemoglobin A1c measurement Diabetes: Hemoglobin A1C [facility] Start: 11-14-2024 End: 11-14-2024 Patient encounter procedure 11/14/2024 11:40 AM EST [facility] Neurology [address] [place] [phone] Lisa William MD, PhD [address] [place] [address] 3 month virtual visit Neurology Comment on above: 3 month virtual visit Start: 11-05-2024 Advance Directive Discussion Advance Directive Discussion [facility] Start: 11-05-2024 Medicare Advantage Annual Wellness Visit Medicare Advantage Annual Wellness Visit [facility] Start: 10-08-2024 End: 10-08-2024 Patient encounter procedure 10/08/2024 2:00 PM EST [facility] Neurology [address] [place] [phone] Lisa William MD, PhD [address] [place] [address] New Consult Neurology Comment on above: New Consult Start: 09-08-2024 End: 09-08-2024 ambulatory 09/08/2024 12:30 PM EST [facility] Pulmonology [facility] [address] [place] [address] Ubaldo Dubose MD [address] [place] [address] MYC VV Pulmonology [facility] Comment on above: MYC VV Start: 08-25-2024 End: 08-25-2024 Patient encounter procedure [facility] Comment on above: Pulmonary hypertension, unspecified (CMS /HCC); Atherosclerosis of aorta (CMS/HCC) Start: 07-06-2024 Covid-19 Vaccine () Covid-19 Vaccine () [facility] Start: 07-06-2024 Covid-19 Vaccine () Covid-19 Vaccine () [facility] Start: 07-06-2024 Influenza vaccination [facility] Start: 06-12-2024 End: 06-12-2024 Patient encounter procedure 06/12/2024 2:45 PM EDT Office Visit [facility] [address] [facility] [address] [place] [address] Judit Lora MD [address] [facility] [address] [place] [address] [facility] Start: 05-21-2024 Hemoglobin A1c measurement Diabetes: Hemoglobin A1C [facility] Start: 05-05-2024 End: 05-05-2024 ambulatory 05/05/2024 3:30 PM EDT [facility] Pulmonology [facility] [address] [place] [address] Ubaldo Dubose MD [address] [place] [address] MYC VV Pulmonology [facility] Comment on above: MYC VV Start: 05-05-2024 End: 05-05-2024 Patient encounter procedure 05/05/2024 3:30 PM EDT Office Visit Pulmonology [facility] [address] [place] [address] Ubaldo Dubose MD [address] [place] [address] Est pt scheduled per Dr. Dubose 4mo fu pft's Pulmonology [facility] Comment on above: Est pt scheduled per Dr. Dubose 4mo fu pft's Start: 04-30-2024 End: 04-30-2024 ambulatory Pulmonary Lab Comment on above: Est pt scheduled per Dr. Dubose 4mo fu pft's [employer] Start: 04-16-2024 End: 04-16-2024 Patient encounter procedure 04/16/2024 12:30 PM EDT Appointment [facility] [address] [place] [phone] [facility] Start: 04-16-2024 End: 04-16-2024 [facility] Start: 04-15-2024 [facility] Start: 04-14-2024 End: 04-14-2024 [facility] Start: 04-14-2024 [facility] Start: 04-13-2024 Referral to neurologist [facility] Start: 04-13-2024 Referral to extract puller [facility] Start: 04-13-2024 Hospital admission [facility] Start: 04-13-2024 [facility] Start: 04-13-2024 Telemedicine consultation with patient [facility] Start: 04-13-2024 [facility] Start: 03-17-2024 End: 03-10-2025 Basic metabolic 2000 panel - Serum or Plasma Basic Metabolic Panel Lab Routine Shortness of breath Medication course changed Expected: 03/17/2024 (Approximate), Expires: 03/10/2025 [facility] Work Phone: Comment on above: Expected: 03/17/2024 (Approximate), Expi res: 03/10/2025 Start: 03-13-2024 Esophagogastroduodenoscopy DH EGD (Not Applicable) [facility] Start: 03-10-2024 End: 03-10-2025 Natriuretic peptide B [Mass/volume] in Blood B-Type Natriuretic Peptide Lab Routine Shortness of breath Cough, unspecified type Abnormal lung sounds Expected: 03/10/2024 (Approximate), Expires: 03/10/2025 [facility] Work Phone: Comment on above: Expected: 03/10/2024 (Approximate), Expi res: 03/10/2025 Start: 03-10-2024 End: 03-10-2026 US Heart Transthoracic Transthoracic Echo Complete Echocardiography Routine Shortness of breath Cough, unspecified type Abnormal lung sounds Expected: 03/10/2024 (Approximate), Expires: 03/10/2026 [facility] Service Area Work Phone: Comment on above: Expected: 03/10/2024 (Approximate), Expi res: 03/10/2026 Start: 03-03-2024 End: 03-03-2024 Follow-up encounter 03/03/2024 12:30 PM EDT [facility] Pulmonology [facility] [id number] [place] [address] Ubaldo Dubose MD [address] [place], [place] [id number] follow up Pulmonology [facility] Comment on above: follow up Start: 02-20-2024 Urine screening for protein Diabetes: Urine Protein Screening [facility] Start: 11-05-2023 Advance Directive Discussion Advance Directive Discussion [facility] Start: 11-05-2023 Behavioral Health Screening Behavioral Health Screening [facility] Start: 11-05-2023 Depression Assessment Depression Assessment [facility] Start: 07-06-2023 COVID-19 Vaccine () COVID-19 Vaccine () [facility] Start: 07-06-2023 Covid-19 Vaccine () Covid-19 Vaccine () [facility] Start: 10-27-2022 Hemoglobin A1c measurement Diabetes: Hemoglobin A1C [facility] Start: 07-26-2022 End: 09-25-2022 CBC W Auto Differential panel - Blood CBC + DIFF Lab Routine Well controlled type 2 diabetes mellitus with neurological manifestations (HCC) Unspecified hypothyroidism Expected: 07/26/2022, Expires: 09/25/2022 [facility] Work Phone: Comment on above: Expected: 07/26/2022, Expires: 2 Start: 07-26-2022 End: 09-25-2022 Comprehensive metabolic 2000 panel - Serum or Plasma COMP METABOLIC PANEL Lab Routine Well controlled type 2 diabetes mellitus with neurological manifestations (HCC) Unspecified hypothyroidism Expected: 07/26/2022, Expires: 09/25/2022 [facility] Work Phone: Comment on above: Expected: 07/26/2022, Expires: 2 Start: 07-26-2022 End: 09-25-2022 Hepatic function 2000 panel - Serum or Plasma HEPATIC FUNCTION PNL Lab Routine Dermatophytosis of nail Expected: 07/26/2022, Expires: 09/25/2022 [facility] Work Phone: Comment on above: Expected: 07/26/2022, Expires: 2 Start: 07-26-2022 End: 09-25-2022 Lipid 1996 panel - Serum or Plasma LIPID PANEL BASIC Lab Routine Well controlled type 2 diabetes mellitus with neurological manifestations (HCC) Unspecified hypothyroidism Expected: 07/26/2022, Expires: 09/25/2022 [facility] Work Phone: Comment on above: Expected: 07/26/2022, Expires: 2 Start: 07-26-2022 End: 09-25-2022 Thyrotropin [Units/volume] in Serum or Plasma TSH BLD Lab Routine Well controlled type 2 diabetes mellitus with neurological manifestations (HCC) Unspecified hypothyroidism Expected: 07/26/2022, Expires: 09/25/2022 [facility] Work Phone: Comment on above: Expected: 07/26/2022, Expires: 2 Start: 07-06-2022 Influenza vaccination INFLUENZA (#1) [facility] Start: 02-03-2022 End: 04-05-2022 ALBUMIN/CREAT RATIO RND UR [facility] Work Phone: Comment on above: Expected: 02/03/2022, Expires: 2 Start: 02-03-2022 End: 04-05-2022 LIPID PANEL BASIC [facility] Work Phone: Comment on above: Expected: 02/03/2022, Expires: 2 Start: 02-03-2022 End: 04-05-2022 Thyrotropin [Units/volume] in Serum or Plasma [facility] Work Phone: Comment on above: Expected: 02/03/2022, Expires: 2 Start: 02-03-2022 End: 04-05-2022 Urinalysis complete panel - Urine [facility] Work Phone: Comment on above: Expected: 02/03/2022, Expires: 2 Start: 11-05-2021 ADVANCE DIRECTIVE DISCUSSION ADVANCE DIRECTIVE DISCUSSION [facility] Start: 11-05-2021 COVID-19 VACCINE (4 - Booster for Moderna series) COVID-19 VACCINE (4 - Booster for Moderna series) [facility] Start: 08-04-2021 Pneumococcal Vaccine: 65+ (2 of 2 - PCV) Pneumococcal Vaccine: 65+ (2 of 2 - PCV) [facility] Start: 2021 RSV Vaccine (1 - 1-dose 75+ series) RSV Vaccine (1 - 1-dose 75+ series) [facility] Start: 2011 BONE DENSITY BONE DENSITY [facility] Start: 2011 PNEUMOCOCCAL: 65+ (1 - PCV) PNEUMOCOCCAL: 65+ (1 - PCV) [facility] Start: 2011 PNEUMOVAX AGE 65 AND OVER WITH 5YR LOOKBACK (#1) PNEUMOVAX AGE 65 AND OVER WITH 5YR LOOKBACK (#1) [facility] Start: 2006 RSV patients and/or patients aged 60+ years (1 - 1-dose 60+ series) RSV patients and/or patients aged 60+ years (1 - 1-dose 60+ series) [facility] Start: 2006 RSV Vaccine (1 - 1-dose 60+ series) RSV Vaccine (1 - 1-dose 60+ series) [facility] Start: 1996 SHINGRIX VACCINE (1 of 2) SHINGRIX VACCINE (1 of 2) [facility] Start: 1968 DTaP/Tdap/Td Vaccines (1 - Tdap) DTaP/Tdap/Td Vaccines (1 - Tdap) [facility] Start: 1965 Urine microalbumin profile [facility] Start: 1965 Urine screening for protein Diabetes: Urine Protein Screening [facility] Start: 1964 Anxiety Screening Anxiety Screening [facility] Start: 1964 Depression Screening Depression Screening [facility] Start: 1964 HEPATITIS C SCREENING HEPATITIS C SCREENING [facility] Start: 1964 Hepatitis C screening Hepatitis C Screening [facility] Start: 1958 Adult depression screening assessment DEPRESSION SCREENING [facility] Start: 1956 Diabetic foot examination Diabetes: Foot Exam [facility] Start: 1956 Glaucoma screening Diabetes: Retinopathy Screening [facility] Start: 1946 Medicare Annual Wellness (AWV) Medicare Annual Wellnes s (AWV) [facility] Start: 1946 Medicare Annual Wellness Visit Medicare Annual Wellnes s Visit (AWV) [facility] End: 04-22-2025 EPIL EEG LONG EPIL EEG LONG NEUROLOGY Routine Convulsions, unspecified convulsion type (HCC) 1 Occurrences starting 04/22/2024 until 04/22/2025 [facility] Work Phone: Comment on above: 1 Occurrences starting 04/22/2024 until 04/22/2025 End: 07-30-2025 EPIL EEG LONG EPIL EEG LONG NEUROLOGY Routine Convulsions, unspecified convulsion type (HCC) 1 Occurrences starting 07/31/2024 until 07/30/2025 [facility] Work Phone: Comment on above: 1 Occurrences starting 07/31/2024 until 07/30/2025 Glucose measurement estimated from glycated hemoglobin [facility] Hemoglobin A1c/Hemog lobin.total in Blood [facility] End: 01-26-2025 LUNG DIFFUSION CAPACITY (DLCO) LUNG DIFFUSION CAPACITY (DLCO) PFT Routine Bronchiectasis without complication (HCC) 1 Occurrences starting 12/28/2023 until 01/26/2025 [facility] Work Phone: Comment on above: 1 Occurrences starting 12/28/2023 until 01/26/2025 LUNG DIFFUSION CAPACITY (DLCO) L RAMÓN DIFFUSION CAPACITY (DLCO) PFT Routine Bronchiectasis without complication (HCC) 04/30/2024 12:59 PM EDT [facility] Work Phone: Patient Education [facility] Work Phone: Patient referral [facility] Work Phone: End: 01-26-2025 SPIROMETRY BASELINE ONLY SPIROMETRY BASELINE ONLY PFT Routine Bronchiectasis without complication (HCC) 1 Occurrences starting 12/28/2023 until 01/26/2025 [facility] Work Phone: Comment on above: 1 Occurrences starting 12/28/2023 until 01/26/2025 SPIROMETRY BASELINE ONLY SPIROME TRY BASELINE ONLY PFT Routine Bronchiectasis without complication (HCC) 04/30/2024 12:59 PM EDT [facility] Work Phone: URINE CULTURE - [facility] URINE CULTU RE - [facility] Lab Routine 02/25/2025 3:30 PM EDT [facility] Work Phone: URINE MICROALBUMIN B/O URINE ABAD ROALBUMIN B/O Lab Routine Hypothyroidism, adult 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) Mixed hyperlipidemia Ordered: 02/03/2022 [facility] Work Phone: Comment on above: Ordered: 02/03/2022 XR Chest 2 Views [facility] XR Lumbar spine 2 or 3 Views XR lumbar spine 2 or 3 views Imaging Routine Lumbar spine pain 06/25/2025 3:37 PM EDT [facility] XR Thoracic spine 2 Views XR tho racic spine 2 views Imaging Routine Chronic midline thoracic back pain 06/25/2025 3:37 PM EDT [facility] Immunizations Immunization Date Immunization Notes Care Provider Darwin crawford 08-25-2024 Seasonal trivalent influenza vaccine, adjuvanted, preservative free Jose Luis Richy COMPLIANCE REVIEW SPECIALIST Work Phone: [facility] 08-25-2024 influenza virus vacc ine, unspecified formulation Jamal Alvarez DO Work Phone: [facility] 08-23-2023 influenza (aIIV4) vaccine, age 65+ yr, quadrivalent, PF (FLUAD QUAD) Ubaldo Dubose MD Work Phone: [facility] 08-23-2023 influenza virus vacc ine, unspecified formulation Ubaldo Dubose MD Work Phone: [facility] 11-10-2022 COVID-19 mRNA Bivale nt Booster (Moderna) DO Jamal Alvarez Work Phone: [facility] 08-17-2022 influenza, high dose seasonal, preservative-free Ubaldo Dubose MD Work Phone: [facility] 05-30-2022 zoster vaccine recombinant Ubaldo Dubose MD Work Phone: [facility] 02-28-2022 zoster vaccine recombinant Ubaldo Dubose MD Work Phone: [facility] 08-16-2021 influenza, high dose seasonal, preservative-free Jamal Alvarez Work Phone: [facility] 07-06-2021 Moderna COVID-19 Vac cine 100 MCG/0.5ML Intramuscular Suspension Jamal Alvarez Work Phone: [facility] 02-03-2021 Moderna COVID-19 Vac cine 100 MCG/0.5ML Intramuscular Suspension Jamal Alvarez Work Phone: [facility] 01-06-2021 Moderna COVID-19 Vac cine 100 MCG/0.5ML Intramuscular Suspension Jamal Alvarez Work Phone: [facility] 08-04-2020 pneumococcal polysaccharide vaccine, 23 valent Jamal Alvarez Work Phone: [facility] 07-15-2020 AS03 adjuvant Ubaldo Dubose MD Work Phone: [facility] 07-15-2020 Seasonal trivalent influenza vaccine, adjuvanted, preservative free Jamal Alvarez Work Phone: [facility] 09-10-2019 AS03 adjuvant Ubaldo Dubose MD Work Phone: [facility] 09-10-2019 Seasonal trivalent influenza vaccine, adjuvanted, preservative free Jamal Alvarez Work Phone: [facility] 07-25-2018 AS03 adjuvant Ubaldo Dubose MD Work Phone: [facility] 07-25-2018 Seasonal trivalent influenza vaccine, adjuvanted, preservative free Jamal Alvarez Work Phone: [facility] 10-22-2017 influenza, injectabl e, quadrivalent, preservative free Jamal Alvarez Work Phone: [facility] 08-17-2016 influenza, high dose seasonal, preservative-free Jamal Alvarez Work Phone: [facility] 11-20-2014 pneumococcal conjuga te vaccine, 13 valent Judit Lora MD Work Phone: [facility] Work Phone: Payers Date Payer Category Payer Medicare (Managed Care) 1.2. [id number] 2021 Medicare AETNA MEDICARE A ETNA MEDICARE PPO [id number] 2021-Present [phone] [address] [place] [address] PPO [id number] 2021 Medicare [id number] 1959 Medicare [id number] 1959 Private Health Insurance [id number] 1946 Unknown [id number] 93 1946 Unknown [id number] 2.16.840.1.688457.3.579.2.5 93 1946 Unknown [id number] 2.16.840.1.858570.3.579.2.5 93 1946 Unknown [id number] 2.16.840.1.414935.3.579.2.1 244 1946 Unknown [id number] 2.16.840.1.192575.3.579.2.1 244 1946 Unknown [id number] 2.16.840.1.602007.3.579.2.1 259 1946 Unknown [id number] 2.16.840.1.673850.3.579.2.1 259 1946 Unknown [id number] 2.16.840.1.743556.3.579.2.1 259 1946 Unknown [id number] 2.16.840.1.818839.3.579.2.1 259 1946 Unknown [id number] 2.16.840.1.610139.3.579.2.1 259 1946 Unknown [id number] 2.16.840.1.315456.3.579.2.1 259 1946 Unknown [id number] 2.16.840.1.204795.3.579.2.1 259 1946 Unknown [id number] 2.16.840.1.754152.3.579.2.1 259 1946 Unknown [id number] 2.16.840.1.716966.3.579.2.1 259 1946 Unknown [id number] 2.16.840.1.239098.3.579.2.1 259 Medicaid [id number] Medicare [id number] Medicare Medicare [id number] Private Health Insurance [id number] Private Health Insurance Aetna MCR PFFS M [id number] Self-pay Self Pay [id number] Unknown [id number] Unknown [id number] Unknown AETNA Unknown HCAP/HFA/FAP Active [id number] Social History Date Type Detail Facility Tobacco smoking stat [facility] Unknown if ever smoked [facility] Start: 1945 Sex Assigned At Female F [facility] Start: 06-29-2020 End: 12-28-2023 No caffeine use No caffeine use [facility] [address] DO Work Phone: Comment on above: Quit 1979; Start: 06-29-2020 End: 08-13-2024 Tobacco smoking status NHIS Ex-smoker [facility] Start: 11-05-1969 End: 11-05-1979 History of tobacco use Current smoker [facility] Start: 11-05-1969 End: 11-05-1979 History of tobacco use Cigarette Smoker [facility] Start: 06-29-2020 End: 07-13-2025 Alcohol intake Current non-drinker of alcohol (finding) [facility] Start: 1945 Sex Assigned At Not on file [facility] Start: 06-29-2020 End: 08-13-2024 Tobacco use and exposure Smokeless tobacco non-user [facility] Start: 06-29-2020 End: 12-28-2023 Tobacco use panel [facility] Start: 10-06-2012 National Score (1-10 0), lower number is lower risk Not on file [facility] Start: 03-10-2024 End: 06-25-2025 Alcoholic beverage intake Lifetime non-drinker (finding) [facility] Work Phone: Start: 02-29-2024 End: 03-10-2024 Exposure to SARS-CoV-2 (event) Not sure [facility] History of tobacco use Passive smoker [facility] How often to you hav e a drink containing alcohol? Never [facility] Start: 08-13-2023 Alcohol Comment caffeine: 1-2 cups per day tea [facility] Start: 11-21-2024 End: 03-15-2025 Sex Female (finding) [facility] Start: 03-15-2025 SDOH Follow up SDOH Follow up [facility] Work Phone: Medical Equipment Procedure Code Equipment Code Equipment Origin al Text Equipment Identifier Dates Implantable incontinence-contro l electrical stimulation system [id number] FDA Start: 10-25-2021 [id number] FDA Start: 10-25-2021 [id number], [id number], [id number], [id number], [id number] Start: 08-07-2023 Comment on above: USE TO TEST ONCE JOHNNY LY EVERY MORNING. Goals Date Patient Goal Desired Activity /State Personal health goal Functional Status Date Assessment Result Facility 03-14-2025 Functional status Patient at Baseline [facility] Work Phone: 04-16-2024 Functional status Patient at Baseline [facility] Work Phone: Mental Status Date Assessment Result Facility 03-14-2025 Cognitive function Cognitive Sta tus Patient at Baseline [facility] Work Phone: 04-16-2024 Cognitive function Cognitive Sta tus Patient at Baseline [facility] Work Phone: Clinical Notes 10-20-2021 to 07-13-2025 Telephone Encounter - Susanna Ashley RN - 07/13/2025 2:01 PM EDTTelephone Encounter - Susanna Ashley RN - 07/13/2025 2:01 PM EDTHumble Simeon MD - 07/10/2025 3:56 PM EDT Note Date & Type Note Facility 07-13-2025 Telephone encounter Note Patient's daughter calling. Patient scheduled for [facility] on 07/24/25. Patient is experiencing more frequent discomfort. Asking if any sooner OR times are available? Please call Nadira @ [phone] ok to leave VM, (there is a 30 sec delay before the beep ) [phone] [facility] 07-13-2025 Miscellaneous Notes Patient's daughter calling. Patient scheduled for LAP [facility] on 07/24/25. Patient is experiencing more frequent discomfort. Asking if any sooner OR times are available? Please call Nadira @ [phone] ok to leave VM, (there is a 30 sec delay before the beep ) [phone] documented in this encounter [facility] 07-10-2025 Note HNO ID: [id number] Author: HUMBLE SIMEON MD Service: ? Author Type: Physician Type: Progress Notes Filed: 07/12/2025 15:03 Note Text: SECTION OF OTOLOGY, NEUROTOLOGY AND LATERAL SKULL BASE SURGERY Head and Neck Ruby, [facility] Quintin Sloan PA-C Chief Complaint: Concern for bilateral effusion HPI: Karuna Reynaga The patient is a 80-year-old female with a history of Alzheimer's dementia, accompanied by her daughter, presenting with concerns of fluid in the ears. The patient has a history of mastoiditis in both ears, diagnosed via CT scan, which showed fluid accumulation. This condition was associated with hearing loss, pain behind the ears, and balance issues. The patient was treated with Augmentin. The fluid persisted for a couple of months but has reportedly resolved over the past few weeks. Her daughter notes that the patient's hearing has returned to baseline, and her balance has improved, though it remains slightly off, possibly due to deconditioning from a period of illness and weakness. The patient has a history of TBI and Alzheimer's dementia, which affects her ability to provide a reliable history. She also has seasonal allergies and has been using Flonase and Kelsey, which her daughter believes have helped with the fluid in her ears. She was evaluated by Quintin who identified fluid in her right ear. Past Medical History: She has a past medical history of Stroke (HCC) and Traumatic brain injury (HCC). Past Surgical History: She has no past surgical history on file. Social History: She reports that she quit smoking about 45 years ago. Her smoking use included cigarettes. She started smoking about 55 years ago. She has a 10 pack-year smoking history. She has never used smokeless tobacco. She reports that she does not drink alcohol and does not use drugs. Physical Exam: A comprehensive ear, nose, throat/head and neck exam was performed. Pertinent findings include: General: No acute distress. HEENT: Left tympanic membrane with possible fluid, right tympanic membrane with thin area, no clear fluid visualized. Ears: Right ear - Pinna normal EAC clear TM intact; Middle ear difficult to evaluate; possible effusion. Left ear - Pinna normal EAC clear, TM intact; middle ear difficult to evaluate; possible effusion. Neuro - Cranial Nerves: CN V - intact Right CN 7 - HB 1 Left CN 7 - HB 1 No dysphonia or dysarthria Shoulder and/or SCM strength normal Constitutional: Well appearing, typically developed, no acute distress Eyes: extra-ocular muscles intact, sclera white, pupils grossly symmetric Lymphatic: no visible cervical lymphadenopathy Respiratory: unlabored breathing with no grossly audible stridor or wheezing Skin: no obvious skin lesions of visible skin of face, neck Procedure Note: Diagnostic myringotomy Indication: Chronic bilateral otitis media. Performed by : Humble Simeon MD Assisted by: Maribell Wilson RN After verbal consent obtained and risks/benefits discussed including bleeding, infection, pain, hearing loss, persistent perforation of ear drum, and need for further procedures, patient would like to proceed with a DIAGNOSTIC myringotomy. The patient was placed in the supine position and prepared for myringotomy. The tympanic membrane was anesthetized with phenol. Using a myringotomy knife, a cut was made in the TM without complication. No fluid was visualized. A tube was NOT placed. The patient tolerated the procedure well with no complications. Labs Tests (Today) Diagnostic Myringotomy: No fluid identified bilaterally Imaging (05/03) CT Brain: Bilateral mastoiditis Audiogram (personally reviewed and interpreted): A screenshot of the audiogram from 07/10/25 is included if available electronically at the time of the visit. Right sided tympanogram is of lower volume and flatter than left side. Left side: Type A. Imaging (personally reviewed and interpreted): No recent imaging of ears available for review. Assessment: Chronic otitis media with effusion (bilateral). Resolved. Quintin previously noticed fluid on the right ear. Today, it was difficult to tell whether or not fluid persisted or not. Tympanogram was somewhat flat, but appeared to demonstrate an aerated middle ear. Interestingly, the left ear was more concerning to me for possible effusion. I recommended diagnostic myringotomy with possible tube placement. This was performed and no fluid was identified in either ear. --Keep ears dry. --Return to clinic PRN. Humble Simeon III, MD Recording using Triloq software for draft documentation of the visit was discussed with the patient/authorized technical support representative; all questions welcomed and answered. Patient/authorized technical support representative agreed to proceed [facility] 07-10-2025 History of Present illness Narrative Images from the original note were not included. SECTION OF OTOLOGY, NEUROTOLOGY AND LATERAL SKULL BASE SURGERY Head and Neck Ruby, [facility] Quintin Sloan PA-C Chief Complaint: Concern for bilateral effusion HPI: Karuna Reynaga The patient is a 80-year-old female with a history of Alzheimer's dementia, accompanied by her daughter, presenting with concerns of fluid in the ears. The patient has a history of mastoiditis in both ears, diagnosed via CT scan, which showed fluid accumulation. This condition was associated with hearing loss, pain behind the ears, and balance issues. The patient was treated with Augmentin. The fluid persisted for a couple of months but has reportedly resolved over the past few weeks. Her daughter notes that the patient's hearing has returned to baseline, and her balance has improved, though it remains slightly off, possibly due to deconditioning from a period of illness and weakness. The patient has a history of TBI and Alzheimer's dementia, which affects her ability to provide a reliable history. She also has seasonal allergies and has been using Flonase and Kelsey, which her daughter believes have helped with the fluid in her ears. She was evaluated by Quintin who identified fluid in her right ear. Past Medical History: She has a past medical history of Stroke ([facility]) and Traumatic brain injury ([facility]). Past Surgical History: She has no past surgical history on file. Social History: She reports that she quit smoking about 45 years ago. Her smoking use included cigarettes. She started smoking about 55 years ago. She has a 10 pack-year smoking history. She has never used smokeless tobacco. She reports that she does not drink alcohol and does not use drugs. Physical Exam: A comprehensive ear, nose, throat/head and neck exam was performed. Pertinent findings include: General: No acute distress. HEENT: Left tympanic membrane with possible fluid, right tympanic membrane with thin area, no clear fluid visualized. Ears: Right ear - Pinna normal EAC clear TM intact; Middle ear difficult to evaluate; possible effusion. Left ear - Pinna normal EAC clear, TM intact; middle ear difficult to evaluate; possible effusion. Neuro - Cranial Nerves: CN V - intact Right CN 7 - HB 1 Left CN 7 - HB 1 No dysphonia or dysarthria Shoulder and/or SCM strength normal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 asthma without complication ([facility]) 08/20/2023 Pulmonary fibrosis ([facility]) 08/20/2023 Need for immunization against influenza 08/23/2023 Chronic cough 12/05/2023 Chest congestion 12/05/2023 Chronic vasomotor rhinitis 12/05/2023 NSIP (nonspecific interstitial pneumonia) ([facility]) 02/25/2024 Shortness of breath 02/25/2024 Past Medical History: Diagnosis Date Allergic rhinitis due to pollen Asthma ([facility]) Asthma ([facility]) Depressive disorder Fall 08/2018 Hallux valgus (acquired), left foot Hallux valgus (acquired), right foot Intestinal disaccharidase deficiencies and disaccharide malabsorption Memory loss Memory loss Obesity (BMI 35.0-39.9 without comorbidity) Overactive bladder Senile osteoporosis Transient cerebral ischemia, unspecified type Type 2 diabetes mellitus without complication ([facility]) Past Surgical History: Procedure Laterality Date ADENOIDECTOMY COLOGUARD 01/10/2019 negative COLONOSCOPY 01/30/2007 EGD 01/30/2007 HUMERUS FRACTURE SURGERY Left HYSTEROSCOPY W/ POLYPECTOMY 01/09/2023 D & C polypectomy, Interstim explant INTERSTIM PNE 2014 INTERSTIM PNE 10/25/2021 Complete interstim implantation TONSILLECTOMY Allergies Allergen Reactions Codeine Other Reaction(s): unknown Midazolam Hallucinations Other Reaction(s): Confusion, Mental Status Change Propoxyphene Other Reaction(s): unknown Latex Rash Other Rash Penicillins Rash Other Reaction(s): unknown Sulfa Antibiotics Rash Other Reaction(s): unknown Current Outpatient Medications on File Prior to Visit Medication Sig Dispense Refill albuterol HFA 90 mcg/act inhaler Inhale 2 puffs every 4 (four) hours if needed for wheezing or shortness of breath 18 g 3 azithromycin (Zithromax) 250 MG tablet Take 250 mg by mouth Daily clopidogrel (Plavix) 75 MG tablet Take 1 tablet (75 mg) by mouth Daily 90 tablet 3 Epidiolex 100 MG/ML solution Take 2 mL by mouth two times a day. estradiol (Estrace) 0.1 MG/GM vaginal cream Insert 1 g into the vagina 2 (two) times a week 42.5 g 3 furosemide (Lasix) 20 MG tablet Take 0.5 tablets (10 mg) by mouth Daily 90 tablet 1 glucose blood (True Metrix Blood Glucose Test) test strip USE TO TEST BLOOD GLUCOSE ONCE DAILY DIRECTED 100 strip 3 ibandronate (Boniva) 150 MG tablet Take 1 tablet (150 mg) by mouth every 30 (thirty) days Take in morning with full glass of water on an empty stomach. No food, drink, meds, or lying down for 60 minutes after. 3 tablet 3 ipratropium-albuterol (Duo-Neb) 0.5-2.5 mg/3 mL nebulizer solution Take 3 mL by nebulization every 6 (six) hours if needed for wheezing or shortness of breath levothyroxine (Synthroid, Levoxyl) 50 MCG tablet Take 50 mcg by mouth in the morning. Take before meals. liothyronine (Cytomel) 5 MCG tablet Take 5 mcg by mouth in the morning and 5 mcg before bedtime. LOPERAMIDE HCL PO Daily as needed nitrofurantoin, macrocrystal-monohydrate, (Macrobid) 100 MG capsule Take 1 capsule (100 mg) by mouth every other day And PRN as needed 60 capsule 3 nitrofurantoin, macrocrystal-monohydrate, (Macrobid) 100 MG capsule Take 1 capsule (100 mg) by mouth every other day And twice a day for 5 days as directed 90 capsule 1 omeprazole (PriLOSEC) [address] capsule Take 1 capsule (40 mg) by mouth in the morning. Take before meals. Do not crush or chew. 90 capsule 3 oxybutynin XL (Ditropan-XL) 5 MG 24 hr tablet Take 1 tablet (5 mg) by mouth at bedtime 90 tablet 3 semaglutide (Ozempic, 1 MG/DOSE,) 4 MG/3ML solution pen-injector INJECT 1 MG SUBCUTANEOUSLY ONCE A WEEK 9 mL 3 simvastatin (Zocor) 20 MG tablet Take 1 tablet (20 mg) by mouth at bedtime 90 tablet 3 sodium chloride 3 % nebulizer solution TRUEplus Lancets 33G [facility] USE TO TEST ONCE DAILY EVERY MORNING. 100 each 3 No current facility-administered medications on file prior to visit. Objective Last Recorded Vitals There were no vitals filed for this visit. ENT Physical Exam Constitutional Appearance: patient appears well-developed, well-nourished and well-groomed, Head and Face Appearance: head appears normal and face appears atraumatic; Ear Ear Canals: right ear canal normal; left ear canal normal; Tympanic Membranes: left tympanic membrane normal; Ear comments: RT - serous effusion. Nose External Nose: nares patent bilaterally; external nose normal; Internal Nose: septum normal; Oral Cavity/Oropharynx Tongue: normal; Oral mucosa: normal; Hard palate: normal; Soft palate: normal; Tonsils: normal; Neck Neck: neck normal; neck palpation normal; Thyroid: thyroid normal; Respiratory Inspection: breathing unlabored; normal breathing rate; Auscultation: breath sounds are clear; Cardiovascular Inspection: extremities are warm and well perfused; no peripheral edema present; Auscultation: regular rate and rhythm; Assessment/Plan Diagnoses and all orders for this visit: OME (otitis media with effusion), right Tx with flonase BID on the RT. F/U with audio in 6-8 weeks. RT t-tube if persists. documented in this encounter [facility] 05-07-2025 Radiology Diagnostic study note [facility] [place] [address] CT Scan Report Signed Patient: Karuna Reynaga MR#: [id number] : 1945 Acct:[id number] Age/Sex: 80 / F ADM Date: 5 Loc: CT Room: Type: [facility] Attending Dr: Jamal Alvarez DO Copies to: Jamal Alvarez DO~ Ordering Provider: Jamal Alvarez DO Date of Service: 05/07/25 CT/CT chest w con: LOCALIZED ENLARGED LYMPH NODES CT Chest with contrast TECHNIQUE: Axial imaging with 2-D reconstruction. 80 cc of Isovue-300The CT exam was performed using one or more the following dose reduction techniques: Automated exposure control, adjustment of the MA and/or Kv according to patient size, or use of the iterative reconstruction technique. History: Recent diagnosis of pneumonia COMPARISON: 03/14/2025 THYROID: Unremarkable TRACHEA AND BRONCHI: Patent ESOPHAGUS: Unremarkable. HEART: Within normal limits PERICARDIAL EFFUSION: None CORONARY ARTERY CALCIFICATION: Present MEDIASTINUM: No adenopathy. No pneumoperitoneum. No mediastinal hematoma. PULMONARY BARBARA: Mildly prominent right hilar lymph nodes. THORACIC AORTA atherosclerosis. No aneurysm. No dissection. LUNG NODULE None LUNGS: Basilar atelectasis. Mild basilar groundglass interstitial prominence. PLEURAL EFFUSION: None PNEUMOTHORAX: No pneumothorax seen. CHEST WALL: No abnormality AXILLA:Unremarkable BONY STRUCTURES Intact UPPER ABDOMEN: Cholelithiasis. CT/CT chest w con IMPRESSION: Basilar atelectasis. Mild basilar groundglass parenchymal density. Similar finding. Consider pneumonitis versus chronic interstitial change. Resolution of right perihilar infiltrate. Impression dictated by: Jamal Bird M.D. 05/07/2025 10:46 PM Dictation Location: [facility] Transcribed By: [facility] 05/07/252245 Dictated By: Jamal Bird DO 05/07/252241 Signed By: 05/07/25 2246 [facility] 04-08-2025 Progress note Formatting of t his note might be different from the original. Call xray with no frx or tumor seen, dahiana advanced DJD. Can make ref to pain mgt if needed. [facility] 04-08-2025 Miscellaneous Notes Call xray with no frx or tumor seen, dahiana advanced DJD. Can make ref to pain mgt if needed. documented in this encounter [facility] 03-20-2025 Telephone encounter Note The following approved medication requests have been transmitted electronically. Requested Prescriptions Signed Prescriptions Disp Refills cannabidiol (EPIDIOLEX) 100 mg/mL oral liquid 120 mL 1 Sig: Take 2 mL by mouth two times a day. Authorizing Provider: KAE LUTZ PA-C [facility] 03-20-2025 Miscellaneous Notes The following approved medication requests have been transmitted electronically. Requested Prescriptions Signed Prescriptions Disp Refills cannabidiol (EPIDIOLEX) 100 mg/mL oral liquid 120 mL 1 Sig: Take 2 mL by mouth two times a day. Authorizing Provider: KAE LUTZ PA-C [facility] 12/24/24 [facility] Patient pharmacy requesting refills as follows: Requested Prescriptions Pending Prescriptions Disp Refills cannabidiol (EPIDIOLEX) 100 mg/mL oral liquid 120 mL 1 Sig: Take 2 mL by mouth two times a day. Please review and advise. Jyoti Silva documented in this encounter [facility] 03-20-2025 Telephone encounter Note [facility] 12/24/24 [facility] Patient pharmacy requesting refills as follows: Requested Prescriptions Pending Prescriptions Disp Refills cannabidiol (EPIDIOLEX) 100 mg/mL oral liquid 120 mL 1 Sig: Take 2 mL by mouth two times a day. Please review and advise. Jyoti Silva [facility] 03-18-2025 Note HNO ID: [id number] Author: UBALDO DUBOSE MD Service: ? Author [...] Dubose MD March 18, 2025 11:18 AM [facility] 03-18-2025 History of Present illness Narrative Received message from daughter that [...] 2025 11:18 AM documented in this encounter [facility] 03-15-2025 Discharge summary Note Date/Time March 15, 2025 3:38p m [facility] [address] [place] [address] Discharge Summary Signed Patient: Karuna Reynaga MR#: [id number] : 1945 Acct:[id number] Age/Sex: 80 / F Adm Date: 5 Loc: Room: [address] [place] [address]: Renan Murguia MD Copies to: [...] Plan Discharge Plan Patient Disposition: Home Health [facility] Activity: No Activity Restriction Diet: Regular Additional [...] monohyd/m-cryst 100 mg capsule 100 mg PO .jiwg-rxmjg-sjk simvastatin 20 mg tablet 20 mg PO QHS Other Ambulatory Orders: Initiate Home Health (Routine) Timeframe: 1 Day Location: Determined by Patient Ordered By: Renan Murguia Follow Up: Jamal Alvarez DO [Primary Care Provider] - (Call office on Sunday to schedulefollow-up with your Primary Care Provider within 3-5 days of discharge. ) Continuity of Care Document Health Concerns: A [facility] screening has identified you as [...] Four Ways to Beat the Frailty Risk [email or web address]/myouszlx-kym-k revention/dvks-vvrydb-ysmk- ijfl-un-lfvi-xrc-ugkronv-nqyn Exam Physical Exam Vital Signs: Temp Pulse [...] <Electronically signed by Renan Murguia MD> 03/15/25 1538 [facility] Work Phone: 1(630) 332-608805-11-2025 Progress note Author Renan Murguia [facility] Note Date/Time March 15, 2025 1:54p m [facility] [address] [place] [address] Hospitalist Progress Note Signed Patient: Karuna Reynaga MR#: [id number] : 1945 Acct:[id number] Age/Sex: 80 / F Adm Date: 5 Loc: Room: [address] [place] [address] Type: ADM IN Attending Dr: Renan Murguia [...] cardiology. Documented By: Renan Murguia MD 03/15/25 133 Signed By: <Electronically signed by Renan Murguia MD> 03/15/25 5301 [facility] Work Phone: 1(373) 717-363805-11-2025 [place] [address] Discharge Summary Signed Patient: Karuna Reynaga MR#: [id number] : 1945 Acct:[id number] Age/Sex: 80 / F Adm Date: 5 Loc: 3T Room: [address] [place] [address]: Renan Murguia MD Copies to: [...] Plan Discharge Plan Patient Disposition: Home Health [facility] Activity: No Activity Restriction Diet: Regular Additional [...] monohyd/m-cryst 100 mg capsule 100 mg PO .xxqs-ohfei-rzc simvastatin 20 mg tablet 20 mg PO QHS Other Ambulatory Orders: Initiate Home Health (Routine) Timeframe: 1 Day Location: Determined by Patient Ordered By: Renan Murguia Follow Up: Jamal Alvarez DO [Primary Care Provider] - (Call office on Sunday to schedulefollow-up with your Primary Care Provider within 3-5 days of discharge. ) Continuity of Care Document Health Concerns: A [facility] screening has identified you as [...] Strong:Four Ways to Beat the Frailty Risk [email or web address]/health/bthcicxk-mam-eydvoynors/st xe-vuibbr-trrq- duhg-fn-pffs-bqj-bcitvfu-yjtu Exam Physical Exam Vital Signs: Temp Pulse [...] MD 03/15/25 1343 Signed By: 03/15/25 1538 [facility]05-11-2025 [place] [address] Hospitalist Progress Note Signed Patient: Karuna Reynaga MR#: [id number] : 1945 Acct:[id number] Age/Sex: 80 / F Adm Date: Loc: Room: [address] [place] [address] Type: ADM IN Attending Dr: Renan Murguia [...] Renan Murguia MD 03/15/25 1335 Signed By: 03/15/25 1354 [facility]05-10-2025 Consult note Author Praveena Garcia [facility] Note Date/Time March 14, 2025 3:10p m [facility] [address] [place] [address] Cardiology Consult Note Signed Patient: Karuna Reynaga MR#: [id number] : 1945 Acct:[id number] Age/Sex: 80 / F Adm Date: 5 Loc: Room: [address] [place] [address] Type: ADM IN Attending Dr: Renan Murguia MD Copies to: MD Jamal Lanier,DO Praveena Garcia MD~ Cardiology HPI History of Present Illness [...] ischemia. Echo at the time showed normal VHPW15-12% with moderately dilated RV and mild pulmonary hypertension. Repeat limited echo today shows normal LV function 60-65% with normal wall motion. Shedenies any chest pain, palpitations, lightheadedness, dizziness, BLE edema, orthopnea or PND. Review of Systems Review of Systems All other systems reviewed & are negative unless noted below or in HPI [facility] Medical History Idiopathic interstitial pulmonary disease Osteopenia [...] monohydrate/macrocrystals 100 mg capsule 100 mg PO .urmb-ecpmc-xpq 03/14/25 [History Confirmed 03/14/25] simvastatin 20 mg [...] Lymph # (Auto) 1.3 1.2 (1.00-4.8) x10E3/uL [place] # (Auto) 0.5 0.6 (0.0-0.8) x10E3/uL Eos [...] ml @ 250 mls/hr IV ONCE ONE Rx#:[id number] cefTRIAXone 1GM-*NS* 1 gm In 50 50 / 50 ml @ 100 mls/hr IV ONCE ONE Rx #:[id number] Oral 100 / 100 Other: # Voids [...] Human metapneumovirus pneumonia Plan Assessment: Type II [place] in the setting of community acquired pneumonia [...] questions. Documented By: Praveena Garcia MD 03/14/25 1506 Signed By: <Electronically signed by Praveena Garcia MD> 03/14/25 4531 [facility] Work Phone: 1([phone]) 349-733105-10-2025 Consult [place] [id number] Cardiology Consult Note Signed Patient: Karuna Reynaga MR#: [id number] : 1945 Acct:[id number] Age/Sex: 80 / F Adm Date: 5 Loc: Room: [address] [place] [address] Type: ADM IN Attending Dr: Renan Murguia [...] ischemia. Echo at the time showed normal JVJO73-97% with moderately dilated RV and mild pulmonary hypertension. Repeat limited echo today shows normal LV function 60-65% with normal wall motion. Shedenies any chest pain, palpitations, lightheadedness, dizziness, BLE edema, orthopnea or PND. Review of Systems Review of Systems All other systems reviewed & are negative unless noted below or in HPI [facility] Medical History Idiopathic interstitial pulmonary disease Osteopenia [...] monohydrate/macrocrystals 100 mg capsule 100 mg PO .exxs-iripn-now 03/14/25 [HistoryConfirmed 03/14/25] simvastatin 20 mg tablet [...] Lymph # (Auto) 1.3 1.2 (1.00-4.8) x10E3/uL [place] # (Auto) 0.5 0.6 (0.0-0.8) x10E3/uL Eos [...] ml @ 250 mls/hr IV ONCE ONE Rx#:[id number] cefTRIAXone 1GM-*NS* 1 gm In 50 50 / 50 ml @ 100 mls/hr IV ONCE ONE Rx #:[id number] Oral 100 / 100 Other: # Voids [...] Human metapneumovirus pneumonia Plan Assessment: Type II [place] in the setting of community acquired pneumonia [...] MD 03/14/25 1502 Signed By: 03/14/25 1510 [facility]05-10-2025 Progress note Author Renan Murguia [facility] Note Date/Time March 14, 2025 1:01p m [facility] [address] [place] [address] Hospitalist Progress Note Signed Patient: Karuna Reynaga MR#: [id number] : 1945 Acct:[id number] Age/Sex: 80 / F Adm Date: 5 Loc: Room: [address] [place] [address] Type: ADM IN Attending Dr: Renan Murguia [...] of care and confirmed it with the resident/student/COMPLIANCE REVIEW SPECIALIST. Patient seen sitting in chair at bedside [...] signed by DO JAUN Hawkins> 03/14/25 1213 [facility] Work Phone: 1(952) 733-404205-10-2025 [place] [address] Hospitalist Progress Note Signed Patient: Karuna Reynaga MR#: [id number] : 1945 Acct:[id number] Age/Sex: 80 / F Adm Date: Loc: 3T Room: [address] [place] [address] Type: ADM IN Attending Dr: Renan Murguia [...] care and confirmed it with the re sident/student/COMPLIANCE REVIEW SPECIALIST. Patient seen sitting in chair at bedside [...] 1101 Signed By: 03/14/25 1301 03/14/25 1213 [facility]05-10-2025 Radiology Diagnostic study note [facility] [place] [address] [place] [address] CT Scan Report Signed Patient: Karuna Reynaga MR#: [id number] : 1945 Acct:[id number] Age/Sex: 80 / F ADM Date: 5 Loc: 3T Room: [address] [place] [address] Type: ADM IN Attending Dr: Renan Murguia [...] Muñoz M.D. 03/14/2025 8:40 AM Dictation Location: [place] [address] Transcribed By: [facility] 03/14/25839 Dictated By: Jose Muñoz II, MD 03/14/25829 Signed By: 03/14/2540 [facility] Work Phone: 1(223) 641-940005-10-2025 History and physical note Author Magda Navarro [facility] Note Date/Time March 14, 2025 4:16a m [facility] [address] [place] [address] Hospitalist H&P Signed Patient: Karuna Reynaga MR#: [id number] : 1945 Acct:[id number] Age/Sex: 80 / F Adm Date: 5 Loc: 3T Room: [address] [place] [address] Type: ADM IN Attending Dr: Matias Valdez [...] will be admitted as inpatient to the [facility] telemetry floor. Review of Systems Review of Systems Unobtainable due to mental condition [facility] Medical History Idiopathic interstitial pulmonary disease Osteopenia [...] monohydrate/macrocrystals 100 mg capsule 100 mg PO .cebq-tkvyb-upk 03/14/25 [History Confirmed 03/14/25] simvastatin 20 mg [...] % (Auto) 23.1 % (.) 03/13/25 22:38 [place] % (Auto) 9.3 % (.) 03/13/25 22: Eos % (Auto) 1.1 % (.) 03/13/25 22: Baso % (Auto) 0.7 % (.) 03/13/25 22: Nucleat RBC Rel Count 0.1 /100 WBC (0-0.5) 03/13/25 22:38 Neut # (Auto) 3.7 x10E3/uL (1.8-7.7) 03/13/25 22:38 Lymph # (Auto) 1.3 x10E3/uL (1.00-4.8) 03/13/25 22:38 [place] # (Auto) 0.5 x10E3/uL (0.0-0.8) 03/13/25 22:38 Eos # (Auto) 0.1 x10E3/uL (0.0-0.45) 03/13/25 22: Baso # (Auto) 0.0 x10E3/uL (0.0-0.2) 03/13/25 22: Monocyte Dist Width 22.62 % (0.00-20.00) H 03/13/25 22:38 D-Dimer Quant (PE/DVT) < 200 ng/mL (0-243) 03/13/25 22:38 PHA Creatinine Clear 46.20 03/13/25 22:38 Sodium 138 mmol/L (136-145) 03/13/25 22:38 Potassium 3.7 mmol/L (3.5-5.1) 03/13/25 22: Chloride 102 mmol/L (98-107) 03/13/25 22:38 Carbon [...] pH 5.5 (5.0-9.0) 03/13/25 23:11 Ur Specific [place] 1.032 (1.001-1.030) H 03/13/25 23:11 Urine Protein [...] <Electronically signed by Matias Valdez DO> 03/14/25 3296 [facility] Work Phone: 1(817) 680-306005-10-2025 [place] [address] Hospitalist H&P Signed Patient: Karuna Reynaga MR#: [id number] : 1945 Acct:[id number] Age/Sex: 80 / F Adm Date: 5 Loc: Room: [address] [place] [address] Type: ADM IN Attending Dr: Matias Valdez DO Copies to: Jamal Alvarez,DO Magda Navarro, ANIMATED [employer] PAINTER Matias Valdez, DO~ HPI DATE OF EXAMINATION: 03/14/25 CHIEF COMPLAINT: [...] be admitted as inpatie nt to the [facility] telemetry floor. Review of Systems Review of Systems Unobtainable due to mental condition [facility] Medical History Idiopathic interstitial pulmonary disease Osteopenia [...] monohydrate/macrocrystals 100 mg capsule 100 mg PO .thkm-afwin-anf 03/14/25 [HistoryConfirmed 03/14/25] simvastatin 20 mg tablet [...] 03/13/25 22: MCHC 33.5 g/dL (32.0-35.0) 03/13/25 22: RDW 13.6 % (11.9-15.3) 03/13/25 22:38 Plt Count 206 x10E3/uL (150-450) 03/13/25 22:38 MPV 8.2 fl (6.3-10.7) 03/13/25 22:38 Neut % (Auto) 65.8 % (.) 03/13/25 22:38 Lymph % (Auto) 23.1 % (.) 03/13/25 22:38 [place] % (Auto) 9.3 % (.) 03/13/25 22:38 Eos % (Auto) 1.1 % (.) 03/13/25 22:38 Baso % (Auto) 0.7 % (.) 03/13/25 22:38 Nucleat RBC Rel Count 0.1 /100 WBC (0-0.5) 03/13/25 22:38 Neut # (Auto) 3.7 x10E3/uL (1.8-7.7) 03/13/25 22:38 Lymph # (Auto) 1.3 x10E3/uL (1.00-4.8) 03/13/25 22:38 [place] # (Auto) 0.5 x10E3/uL (0.0-0.8) 03/13/25 22:38 [...] pH 5.5 (5.0-9.0) 03/13/25 23:11 Ur Specific [place] 1.032 (1.001-1.030) H 03/13/25 23:11 Urine Protein [...] Magda Navarro APRN 03/14/25 0207 Signed By: 03/14/25 0239 03/14/25 0416 [facility]05-10-2025 Evaluation note* Diagnosis Onset Date Resolution Status Admit Date Acute confusion acute March 14, 2025 1:57am Acute hypoxic respiratory failure ac kiana March 14, 2025 1:57am Community acquired pneumonia acute March 14, 2025 1:57am Elevated troponin acute March h2024 1:57am Human metapneumovirus pneumonia acut e March 14, 2025 1:57am Weakness acute March 14, 2025 1:57am [facility] Work Phone: 1(825) 867-668705-10-2025 Evaluation note* Diagnosis Onset Date Resolution Status Admit Date Acute confusion resolved March 14, 2025 1:57am Acute hypoxic respiratory failure resolved March 14, 2025 1 :57am Community acquired pneumonia resolve d March 14, 2025 1:57am Elevated troponin resolved March 1:57am Human metapneumovirus pneumonia reso lved March 14, 2025 1:57am Weakness resolved March 14, 2025 1:57am [facility] Work Phone: 1([phone]) 512-405705-09-2025 Radiology Diagnostic study [facility] [place] [address] CT Scan Report Signed Patient: Karuna Reynaga MR#: [id number] : 1945 Acct:[id number] Age/Sex: 80 / F ADM Date: 5 [...] Muñoz M.D. 03/13/2025 10:19 PM Dictation Location: [facility]- Transcribed By: [facility] 03/13/252218 Dictated By: Jose Muñoz II, MD 03/13/252212 Signed By: 03/13/252218 [facility] Work Phone: [phone] Telephone encounter Note* Telephone Encounter - Jennifer Chandler RN - 01/13/2025 11:08 AM EDT Additional information submitted in CM. Jennifer Chandler RN [facility]03-11-2025 Miscellaneous Notes* Telephone Encounter - Jennifer Chandler RN - 01/13/2025 11:08 AM EDT Additional information submitted in CMM. Jennifer Chandler RN * Telephone Encounter - Jennifer Chandler RN - 01/13/2025 10:41 AM EDT Urgent PA initiated in [facility] calderon [id number]. Jennifer Chandler RN * Telephone Encounter - Jyoti Silva - 01/12/2025 2:26 PM EDT [facility] phoned to follow with prior auth for cannabidiol (EPIDIOLEX) 100 mg/mL oral liquid please call and advise [facility] specialty pharmacy ph# [phone] documented in this encounterBethesda [facility] Hospital03-11-2025 Telephone encounter Note * Telephone Encounter - Jennifer Chandler RN - 01/13/2025 10:41 AM EDT Urgent PA initiated in [facility] cal[place]on [id number]. Jennifer Chandler RN [facility]03-10-2025 Telephone encounter Note* Telephone Encounter - Jyoti Silva - 01/12/2025 2:26 PM EDT [facility] phoned to follow with prior auth for cannabidiol (EPIDIOLEX) 100 mg/mL oral liquid please call and advise [facility] specialty pharmacy ph# [phone] [facility]02-19-2025 NoteHNO ID: [id number] Author: LISA WILLIAM MD, PhD Service: ? Author Type: Physician Type: Progress Notes Filed: 12/24/2024 16:30 Note Text: [facility] Patient Name: Karuna Reynaga Date of : 1945 Referring Provider: SELF ESTABLISHED EPILEPSY CLINIC NOTE 12/24/2024 3:00 PM Reason for Visit: Follow Up and Epilepsy Clinical Summary: Ms. Reynaga is a 79 year old right-handed female seen in [facility]. We had a visit using: Ge[employer] I received consent from the patient to perform the visit using this platform. I have communicated my name and active licensure. The patient's identity and physical location were verified at the time of this visit. 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 CT Brain WO 04/15/2024 ([facility]) IMPRESSION: ATROPHY AND CHRONIC ISCHEMIC CHANGES. NO ACUTE INTRACRANIAL FINDINGS ? EEG Routine 04/15/2024 ([facility]) Routine EEG showed bifrontal slowing but no epileptiform discharges or seizures ? MRI Brain 04/15/2024 ([facility]) MRI brain April 15, 2024 without contrast [...] MULTIVITAMIN TAB Take one(1) (more content not included)...[facility]02-19-2025 History of Present illness Narrative* Lisa William MD, PhD - 12/24/2024 3:02 PM EST [facility] Patient Name: Karuna Reynaga Date of : 1945 Referring Provider: SELF ESTABLISHED EPILEPSY CLINIC NOTE 12/24/2024 3:00 PM Reason for Visit: Follow Up and Epilepsy Clinical Summary: Ms. Reynaga is a 79 year old right-handed female seen in [facility]. We had a visit using: Geodynamics I received consent from the patient to perform the visit using this platform. I have communicated my name and active licensure. The patient's identity and physical location wereverified at the time of this visit. Either the patient or their legal technical support representative has been informed of the risks [...] - Seizure risk factors: Brain Tumor No BILLING ANALYST Infections No Developmental Delay No Family history of seizures No Febrile Seizure No Complications No Stroke Yes Traumatic Brain Injury Yes Previous Epilepsy Evaluations PRIOR EVALUATIONS: CT Brain WO 04/15/2024 ([facility]) IMPRESSION: ATROPHY AND CHRONIC ISCHEMIC CHANGES. NO ACUTE INTRACRANIAL FINDINGS EEG Routine 04/15/2024 ([facility]) Routine EEG showed bifrontal slowing but no epileptiform discharges or seizures MRI Brain 04/15/2024 ([facility]) MRI brain April 15, 2024 without contrast [...] Cancer Sister cervical SOCIAL HISTORY: -Lives in [place], [place] Social History Tobacco Use Smoking status: [...] to explore medical CBD in accordance with [place] Law. They again had difficulty tolerating lamotrigine, [...] which included: preparing to see the patient [id number] patient care completing clinical documentation obtaining and/or reviewing separately obtained history counseling and educating the patient/family/caregiver performing a medically appropriate examination ordering medications, tests, or procedures independently interpreting results (not separately reported) Lisa William MD, PhD cc: Primary Care Physician: Jamal Alvarez DO [address] [facility] [address] [facility] [id number] Referring: SELF Phone: N/A Fax: Patient: Ms. Karuna Reynaga [address] [facility] [address] [facility] [place] [address] documented in this encounterBethesda North Hospital02-07-2025 Telephone encounter Note * Telephone Encounter [...] John Madison December 12, 2024 7:41 AM [facility]02-07-2025 Miscellaneous Notes* Telephone Encounter - John [...] 12, 2024 7:41 AM documented in this encounterBethesda North Hospital11-04-2024 Telephone encounter Note * Telephone Encounter - John Madison - 09/08/2024 1:14 PM EST Karuna Reynaga's daughter Nadira called regarding her VV that was scheduled for today. They ran behind at one of her other appointments, and missed the visit. Her daughter is requesting her to be rescheduled, but don't want to wait a long time for a new appointment. [facility]11-04-2024 Miscellaneous Notes* Telephone Encounter - John Madison - 09/08/2024 1:14 PM EST Karuna Reynaga's daughter Nadira called regarding her VV that was scheduled for today. They ran behind at one of her other appointments, and missed the visit. Her daughter is requesting her to be rescheduled, but don't want to wait a long time for a new appointment. documented in this encounterBethesda North Hospital10-21-2024 History of Present illness Narrative* Jose Luis Lockhart, COMPLIANCE REVIEW SPECIALIST - 08/25/2024 3:15 PM EDT Images from [...] 3 % nebulizer solution TRUEplus Lancets 33G [facility] USE TO TEST ONCE DAILY EVERY MORNING. [...] with 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 ([facility]/HCC) Need for immunization against influenza - Flu vaccine, trivalent, adjuvanted, preservative free Type 2 diabetes mellitus with peripheral neuropathy ([facility]) - Comprehensive metabolic panel; Future - Hemoglobin a1c with eag; Future Gastroesophageal reflux disease without esophagitis Hypothyroidism, unspecified type (CMS/HCC) - TSH; Future Moderate asthma without complication, unspecified whether persistent (CMS/HCC) Osteoporosis, unspecified osteoporosis type, unspecified pathological fracture presence ([facility]) Urinary incontinence, unspecified type Seizure ([facility]) Traumatic brain injury with loss of consciousness, subsequent encounter Medication management - CBC; Future Dictated, but not read Patient presents today for routine six month office visit and review chronic problems. Overall she s doing well according to her daughter. She is following with Dr. Lisa Calixto, who is a neurologist at the [facility] for her partial seizures. She was on [...] reviewed and followed. Jose Luis Lockhart, MSN, ANIMATED [employer] PAINTER-MORGUE TECHNICIAN documented in this encounterCenterPointe HospitalTtdvyhyfua20-07-8323 Telephone encounter Note* Telephone Encounter - Sowmya Gresham RN - 08/25/2024 11:39 AM EDT 08/13/[address] William started on the LTG titration Sowmya Gresham RN [facility]10-21-2024 Miscellaneous Notes* Telephone Encounter - Sowmya Gresham RN - 08/25/2024 11:39 AM EDT 08/13/[address] William started on the LTG titration Sowmya Gresham RN documented in this encounterBethesda North Hospital10-09-2024 Instructions* Patient Instructions* Lisa William MD, [...] need an alternate medicine. documented in this encounterBethesda North Hospital10-09-2024 NoteHNO ID: [id number] Author: LISA WILLIAM MD, PhD Service: ? Author Type: Physician Type: Progress Notes Filed: 12/24/2024 15:02 Note Text: [facility] Patient Name: Karuna GAMINO Date of : 1945 INITIAL EPILEPSY CLINIC NOTE 08/13/2024 2:00 PM CHIEF COMPLAINT: New Patient and Epilepsy Self referred. HISTORY OF PRESENT ILLNESS Ms. Reynaga is a 79 year old female seen in [facility] for initial consultation. We had a visit using: Geodynamics I received consent from the patient to perform the visit using this platform. I have communicated my name and active licensure. The patient's identity and physical location were verified at the time of this visit. 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 CT Brain WO 04/15/2024 ([facility]) IMPRESSION: ATROPHY AND CHRONIC ISCHEMIC CHANGES. NO ACUTE INTRACRANIAL FINDINGS ? EEG Routine 04/15/2024 ([facility]) Routine EEG showed bifrontal slowing but no epileptiform discharges or seizures ? MRI Brain 04/15/2024 ([facility]) MRI brain April 15, 2024 without contrast [...] surgical history. FAMILY HIS (more content not included)...[facility]10-09-2024 History of Present illness Narrative* Lisa William MD, PhD - 08/13/2024 2:07 PM EDT [facility] Patient Name: Karuna GAMINO Date of : 1945 INITIAL EPILEPSY CLINIC NOTE 08/13/2024 2:00 PM CHIEF COMPLAINT: New Patient and Epilepsy Self referred. HISTORY OF PRESENT ILLNESS Ms. Reynaga is a 79 year old female seen in [facility] for initial consultation. We had a visit using: Geodynamics I received consent from the patient to perform the visit using this platform. I have communicated my name and active licensure. The patient's identity and physical location wereverified at the time of this visit. Either the patient or their legal technical support representative has been informed of the risks [...] - Seizure risk factors: Brain Tumor No BILLING ANALYST Infections No Developmental Delay No Family history of seizures No Febrile Seizure No Complications No Stroke Yes Traumatic Brain Injury Yes Previous Epilepsy Evaluations PRIOR EVALUATIONS: CT Brain WO 04/15/2024 ([facility]) IMPRESSION: ATROPHY AND CHRONIC ISCHEMIC CHANGES. NO ACUTE INTRACRANIAL FINDINGS EEG Routine 04/15/2024 ([facility]) Routine EEG showed bifrontal slowing but no epileptiform discharges or seizures MRI Brain 04/15/2024 ([facility]) MRI brain April 15, 2024 without contrast [...] Cancer Sister cervical SOCIAL HISTORY: -Lives in [place], [place] -Patient lives alone? Social History Tobacco [...] MD, PhD cc: Primary Care Physician: Jamal Alvarez DO [address] [facility] [address] [facility] [address] Referring: Patient: Ms. Karuna Reynaga [address] [facility] [address] [facility] [place] [place] [address] documented in this encounterBethesda North Hospital09-26-2024 Telephone encounter Note * Telephone Encounter - Sowmya Gresham RN - 07/31/2024 3:06 PM EDT EEG order faxed to [facility] via [employer] request to fax report to [phone] send EEG tracings to [facility] Sowmya Gresham RN [facility]09-26-2024 Miscellaneous Notes* Telephone Encounter - Sowmya Gresham RN - 07/31/2024 3:06 PM EDT EEG order faxed to [facility] via [employer] request to fax report to [phone] send EEG tracings to [facility] Sowmya Gresham RN * Telephone Encounter - [...] AM EDT Spoke with Karuna States that [facility] needs the order to specify what is wanted they only do the hour and 3 days, if different it needs to be requested in the order routed for review Sowmya Gresham RN * Telephone Encounter - Melvi Garíca PA-C - 07/30/2024 2:59 PM EDT EEG [...] she's going to have this done at [facility] and they need the order to specifically state how long you want them to do the test for, so please include a time frame on the order. Then fax over to [facility] at: [phone] * Telephone Encounter - Yanick Douglass - [...] daughter: Nadira Call patient at: on cell [phone] (home) [phone] (cell) Was an appointment scheduled: No Closing statement: Results or non-symptom based questions: Thank you for calling [facility], your call will be returned within the next business day. Yanick Douglass documented in this encounterBethesda North Hospital09-26-2024 Telephone encounter Note * Telephone Encounter - Melvi García PA-C - 07/31/2024 2:03 PM EDT So the long EEG is 2.5 hours long roughly and it is performed the same way as an hour long EEG so Iwrote the time length requested in the comments. What else are they looking for? Melvi García PA-C [facility]09-26-2024 Telephone encounter Note* Telephone Encounter - Sowmya Gresham RN - 07/31/2024 10:33 AM EDT Spoke with Karuna States that [facility] needs the order to specify what is wanted they only do the hour and 3 days, if different it needs to be requested in the order routed for review Sowmya Gresham RN [facility]09-25-2024 Telephone encounter Note* Telephone Encounter - Melvi García PA-C - 07/30/2024 2:59 PM EDT EEG long can be done first. Order placed. Melvi García PA-C [facility]09-25-2024 Telephone encounter Note* Telephone Encounter - Sowmya Gresham RN - 07/30/2024 2:52 PM EDT 04/22/[address] Juarez ======= routed to REJI 1 to see if long EEG order can be placed or will visit with Dr. William need to be completed first. Sowmya Gresham RN [facility]09-25-2024 Telephone encounter Note* Telephone Encounter - Yaa Russell - 07/30/2024 2:03 PM EDT Patient called back today, and indicated that she's going to have this done at [facility] and they need the order to specifically state how long you want them to do the test for, so please include a time frame on the order. Then fax over to [facility] at: [phone] [facility]09-25-2024 Telephone encounter Note* Telephone Encounter - [...] daughter: Nadira Call patient at: on cell [phone] (home) [phone] (cell) Was an appointment scheduled: No Closing statement: Results or non-symptom based questions: Thank you for calling [facility], your call will be returned within the next business day. Yanick Douglass [facility]08-01-2024 Telephone encounter Note* Telephone Encounter - John Madison - 06/05/2024 4:51 PM EDT Fax received on 06/05/2024 from [employer], regarding CMN. Fax placed on provider desk for review/signature. Unsigned copy scanned into patient chart. [facility]08-01-2024 Miscellaneous Notes* Telephone Encounter - John Madison - 06/05/2024 4:51 PM EDT Fax received on 06/05/2024 from [employer], regarding CMN. Fax placed on provider desk for review/signature. Unsigned copy scanned into patient chart. documented in this encounterBethesda North Hospital07-01-2024 History of Present illness Narrative* Ubaldo Dubose MD - 05/05/2024 3:30 PM EDT Images from the original note were not included. VIRTUAL VISIT PROGRESS NOTE This is a virtual visit using [employer] Zoom Video Visit. It required patient- provider interaction for the medical decision making as documented below. I have communicated my name and active licensure. The patient's identity and physical location wereverified at the time of this visit. Either the patient or their legal technical support representative has been informed of the risks and benefits of -- and alternatives to -- treatment through a remote evaluation andconsents to proceed with the evaluation remotely. Respiratory Ruby Karuna Reynaga is a 79 year old female here for a follow up with the [facility] InterstitialLung Disease Team for bronchiectasis secondary [...] 35.0-39.9 without comorbidity) Overactive bladder Senile osteoporosis ([facility]/HCC) Transient cerebral ischemia, unspecified type Type 2 diabetes mellitus without complication ([facility]) No past surgical history on file. SOCIAL [...] myself) Laboratory Data Laboratory data reviewed in [facility] Everywhere. Pulmonary Function Data PFT available since [...] today, May 05, 2024) documented in this encounterBethesda North Hospital06-26-2024 History of Present illness Narrative* Yamini Lan RRT - 04/30/2024 1:17 PM EDT PULM FUNCTION: Provider: Ubaldo Dubose MD Spirometry: 1 DLCO: 1 documented in this encounterBethesda North Hospital06-18-2024 History of Present illness Narrative* Brian Lorenzo APRN.CNP - 04/22/2024 8:15 AM EDT [facility] Review of Records Patient: Karuna Reynaga Address: [address] [place] [address] Impression: Review of records for Karuna Reynaga, [...] ASMs PRIOR EVALUATIONS: CT Brain WO 04/15/2024 ([facility]) IMPRESSION: ATROPHY AND CHRONIC ISCHEMIC CHANGES. NO ACUTE INTRACRANIAL FINDINGS EEG Routine 04/15/2024 ([facility]) Routine EEG showed bifrontal slowing but no epileptiform discharges or seizures MRI Brain 04/15/2024 ([facility]) MRI brain April 15, 2024 without contrast shows bilateral frontal lobe encephalomalacia, some othergeneralized atrophy, no acute intracranial findings REJI Recommendations: - EEG long - Visit with epileptologist - Additional testing to be considered by epilepsy clinicians Signed: Brian Lorenzo APRN.CNP April 22, [address] Juarez for review and recommendations. MD Recommendations (as discussed with Dr. Juarez): - agree with reccomendations documented in this encounterBethesda North Hospital06-17-2024 Telephone encounter Note * Telephone Encounter - Taqueria Frank - 04/21/2024 4:18 PM EDT OSH imaging/records received: April 21, 2024 -OFFICE NOTES -EEG -MRI BRAIN -CT BRAIN -CARE EVERYWHERE ([place], [place]) Taqueria Frank April 21, 2024 4:19 PM [facility]06-17-2024 Miscellaneous Notes* Telephone Encounter - Taqueria Frank - 04/21/2024 4:18 PM EDT OSH imaging/records received: April 21, 2024 -OFFICE NOTES -EEG -MRI BRAIN -CT BRAIN -CARE EVERYWHERE ([place], [place]) Taqueria Frank April 21, 2024 4:19 PM * Telephone Encounter - Taqueria Frank - 04/21/2024 4:04 PM EDT [facility] Initial Intake Interview April 21, 2024 4:05 PM Caller: Nadira Relationship to pt: Daughter Patient name: Karuna Reynaga Age: [age] year old Address: [address] [place] [address] (home) Insurance: Payor: [facility] MEDICARE / Plan: [facility] MEDICARE ADVANTAGE PPO / Product Type: PPO / Referred by: Self (word of mouth) Referring to: Any Reason for Evaluation: further evaluation and treatment Previously evaluated at: [place], [place] Tel: N/A Fax: N/A Age & [...] or No Date Facility EEG Yes 04/2024 [place], [place]) Video EEG No MRI brain Yes 04/2024 [facility] ([place], [place]) CT brain Yes 04/2024 [facility] ([place], [place]) fMRI brain No PET No Ictal [...] workup, has imaging been requested? No Signed: Taqueria Frank documented in this encounterBethesda North Hospital06-17-2024 Telephone encounter Note * Telephone Encounter - Taqueria Frank - 04/21/2024 4:04 PM EDT [facility] Initial Intake Interview April 21, 2024 4:05 PM Caller: Nadira Relationship to pt: Daughter Patient name: Karuna Reynaga Age: [age] year old Address: [address] [place] [id number] (home) Insurance: Payor: [facility] MEDICARE / Plan: [facility] MEDICARE ADVANTAGE PPO / Product Type: PPO / Referred by: Self (word of mouth) Referring to: Any Reason for Evaluation: further evaluation and treatment Previously evaluated at: [facility] [place] [place] Tel: N/A Fax: N/A Age & [...] or No Date Facility EEG Yes 04/2024 [place], [place]) Video EEG No MRI brain Yes 04/2024 [place], [place]) CT brain Yes 04/2024 [facility] ([place], [place]) fMRI brain No PET No Ictal [...] workup, has imaging been requested? No Signed: Taqueria Frank [facility]06-12-2024 [facility] Progress note Author Andry Nugent [facility] April 16, 2024 5:40pm Note Date/Time April 16, 2024 1:04 pm [facility] [address] [place] [address] Neurology Progress Note Signed Patient: Karuna Reynaga MR#: [id number] : 1945 Acct:[id number] Age/Sex: 79 / F Adm Date: 4 Loc: Room: [address] [place] [address] Type: ADM IN Attending Dr: Renan Murguia [...] Recommendations: ST Recommendations ST Recommended Services at [facility] Discharge Assessment/Plan (1) Syncope: Qualifiers: [...] <Electronically signed by Andry Nugent DO> 04/16/24 [address] [facility] Work Phone: 1(884) 298-410806-11-2024 Progress note Author Vic Hess [facility] April 15, 2024 4:44pm Note Date/Time April 15, 2024 4:44 pm [facility] [address] [place] [address] Cardiology Progress Note Signed Patient: Karuna Reynaga MR#: [id number] : 1945 Acct:[id number] Age/Sex: 79 / F Adm Date: 4 Loc: Room: [address] [place] [address] Type: ADM IN Attending Dr: Renan Murguia MD Copies to: ~ Date of Service: 04/15/2024 Subjective Principal diagnosis: Near syncopal episode; troponin elevation Interval history: Ms. Reynaga is a 79 year old female that was seen in cardiology consultation at the request of the hospitalist and in conjunction with second-year medical technologist blood bank Dr. Hernandez for elevated troponin levels. Patient is seen and evaluated with the medical technologist blood bank, I agree with her evaluation and note, [...] on Lasix one month ago by her extract puller, Dr. Lora, for possible heart failure. Her [...] % (Auto) 46.5 Lymph % (Auto) 36.1 [place] % (Auto) 9.8 Eos % (Auto) 6.8 Baso % (Auto) 0.8 Nucleat RBC Rel Count 0.2 Neut # (Auto) 2.6 Lymph # (Auto) 2.0 [place] # (Auto) 0.6 Eos # (Auto) 0.4 [...] <Electronically signed by Vic Hess DO> 04/15/241643 [facility] Work Phone: 1(643) 169-916306-11-2024 Progress note Author Andry Nugent [facility] April 15, 2024 4:01pm Note Date/Time April 15, 2024 4:01 pm [facility] [address] [place] [address] Neurology Progress Note Signed Patient: Karuna Reynaga MR#: [id number] : 1945 Acct:[id number] Age/Sex: 79 / F Adm Date: 4 Loc: Room: [address] [place] [address] Type: ADM IN Attending Dr: Renan Murguia [...] Recommendations: ST Recommendations ST Recommended Services at [facility] Discharge Assessment/Plan (1) Syncope: Qualifiers: Syncope type: unspecified Qualified Code(s): R55 - Syncope and collapse Plan CONSULT REASON: Syncope SUBJECTIVE: Doing about the same as yesterday. No recurrence of any syncopal event. Her daughter says that she is typically pretty tangential at baseline and talks about some fairly acb-htp-anjc things, and sometimes does not even remember [...] follow Documented By: Andry Nugent DO 04/15/24 3164 Signed By: <Electronically signed by Andry Nugent DO> 04/15/24 1601 [facility] Work Phone: 1(700) 506-379006-11-2024 Progress note Author Renan Murguia [facility] April 15, 2024 1:13pm Note Date/Time April 15, 2024 1:14 pm [facility] [address] [place] [address] Hospitalist Progress Note Signed Patient: Karuna Reynaga MR#: [id number] : 1945 Acct:[id number] Age/Sex: 79 / F Adm Date: 4 Loc: Room: [address] [place] [address] Type: ADM IN Attending Dr: Renan Murguia [...] signed by Renan Murguia MD> 04/15/24 1313 [facility] Work Phone: 1(947) 818-558206-10-2024 Consult note Author Andry Nugent [facility] April 14, 2024 5:14pm Note Date/Time April 14, 2024 1:15 pm [facility] [address] [place] [address] Neurology Consult Note Signed Patient: Karuna Reynaga MR#: [id number] : 1945 Acct:[id number] Age/Sex: 79 / F Adm Date: 4 Loc: Room: [address] [place] [address] Type: ADM IN Attending Dr: Renan Murguia MD Copies to: DO Renan Jurado MD Jeffrey A Garman, DO~ HPI Consult Date: 04/14/24 Director Operating Room: Andry Nugent DO [facility] Medical History (Updated 04/14/24 @ 17:14 by [...] Jamal Bird M.D.04/13/2024 4:26 PM Dictation Location: [facility]-[address] 04/13/24 15:53 IMPRESSION: No acute findings. 4:05 PM 04/13/24 Impression dictated by: Jamal Bird M.D.04/13/2024 4:11 PM Dictation Location: [facility]-01 Head CTA 04/13/24 15:53 IMPRESSION: No occlusion, critical stenosis or dissection of the extracranial orintracranial circulation. Impression dictated by: Jamal Bird M.D.04/13/2024 4:31 PM Dictation Location: RADIO--01 Therapy Recommendations Therapy Recommendations: ST Recommendations ST Recommended Services at [facility] Discharge Assessment/Plan (1) Syncope: Qualifiers: [...] <Electronically signed by Andry Nugent DO> 04/14/24 8719 [facility] Work Phone: 1(124) 202-684006-10-2024 Consult note Author Vic Hess [facility] April 14, 2024 4:31pm Note Date/Time April 14, 2024 3:25 pm [facility] [address] [place] [address] Cardiology Consult Note Signed Patient: Karuna Reynaga MR#: [id number] : 1945 Acct:[id number] Age/Sex: 79 / F Adm Date: 4 Loc: Room: [address] [place] [address] Type: ADM IN Attending Dr: Renan Murguia MD Copies to: MD Jamal Lanier DO Samantha Mason, DO, JAUN Hess DO~ Cardiology HPI History of Present Illness Consult Date: 04/14/24 Reason for Consult: NSTEMI HPI: Ms. Reynaga is a 79 year old female that was seen in cardiology consultation at the request of the hospitalist and in conjunction with second-year medical technologist blood bank Dr. Hernandez for elevated troponin levels. Patient is seen and evaluated with the medical technologist blood bank, I agree with her evaluation and note, [...] on Lasix one month ago by her extract puller, Dr. Lora, for possible heart failure. Her [...] negative unless noted below or in HPI [facility] Medical History (Updated 04/14/24 @ 15:22 by [...] Lymph # (Auto) 1.8 2.3 (1.00-4.8) x10E3/uL [place] # (Auto) 0.5 0.5 (0.0-0.8) x10E3/uL Eos [...] ml @ 999 mls/hr IV .Q1H1M ONE Rx#:[id number] Oral 240 / 240 Output: Urine 150 [...] <Electronically signed by DO JAUN Hernandez> 04/14/24 1529 [facility] Work Phone: 1(841) 362-305206-10-2024 Progress note Author Renan Murguia [facility] April 14, 2024 1:29pm Note Date/Time April 14, 2024 1:29 pm [facility] [address] [place] [address] Hospitalist Progress Note Signed Patient: Karuna Reynaga MR#: [id number] : 1945 Acct:[id number] Age/Sex: 79 / F Adm Date: 4 Loc: Room: [address] [place] [address] Type: ADM IN Attending Dr: Renan Murguia [...] By: <Electronically signed by Renan Murguia MD> 04/14/249 [facility] Work Phone: 1(882) 478-188306-10-2024 History and physical note Author Albert Palacio [facility] April 13, 2024 11:03pm Note Date/Time April 13, 2024 7:12p m [facility] [address] [place] [address] Hospitalist H&P Signed Patient: Karuna Reynaga MR#: [id number] : 1945 Acct:[id number] Age/Sex: 79 / F Adm Date: 4 Loc: 4 Room: [address] [place] [address] Type: ADM IN Attending Dr: Albert Palacio [...] episode and possible NSTEMI. [facility] and pleasant [...] although there are fewprior EKGs to compare. [facility] Medical History (Updated 04/13/24 @ 17:47 by [...] % (Auto) 29.5 % (.) 04/13/24 15:55 [place] % (Auto) 7.4 % (.) 04/13/24 15:55 Eos % (Auto) 4.3 % (.) 04/13/24 15:55 Baso % (Auto) 0.8 % (.) 04/13/24 15:55 Nucleat RBC Rel Count 0.1 /100 WBC (0-0.5) 04/13/24 15:55 Neut # (Auto) 3.6 x10E3/uL (1.8-7.7) 04/13/24 15:55 Lymph # (Auto) 1.8 x10E3/uL (1.00-4.8) 04/13/24 15:55 [place] # (Auto) 0.5 x10E3/uL (0.0-0.8) 04/13/24 15:55 [...] <Electronically signed by Albert Palacio DO> 04/13/24 0326 [facility] Work Phone: 1(402) 606-976605-06-2024 History of Present illness Narrative* Judit Lora [...] injury. Daughter is the medical power of managing attorney. Patient toma full code at this [...] than 60, hemoglobin 12.5 hematocrit 40 platelets [id number] Assessment/Plan Diagnoses and all orders for this [...] with unknown loss of consciousness status, sequela ([facility]) BMI 32.0-32.9,adult Former smoker History of traumatic [...] February 2024-diffuse groundglass interstitial prominence basilar atelectasis/scarring 61-waza-dtwe history of smoking quit 1979 PFTs not [...] exam, discussion and plan. [facility] Work Phone: 1(339) 204-338605-06-2024 Instructions* Patient Instructions* Raulito Draper MA - [...] time of your visit. [facility] Work Phone: 1(873) 836-989804-29-2024 History of Present illness Narrative* Ubaldo Dubose MD - 03/03/2024 12:30 PM EDT VIRTUAL VISIT PROGRESS NOTE This is a virtual visit using [employer] Zoom Video Visit. It required patient- provider interaction for the medical decision making as documented below. I have communicated my name and active licensure. The patient's identity and physical location wereverified at the time of this visit. Either the patient or their legal technical support representative has been informed of the risks [...] in 3 months Ubaldo Dubose MD Pager: [phone] March 02, 2024 12:06 PM [facility] Telephone encounter Note * Telephone Encounter - Eileen Lucas RN - 02/26/2024 3:57 PM EDT Received outside imaging reports via electronic fax. Uploaded to scanned documents for provider to review. [facility]04-23-[facility] Miscellaneous Notes* Telephone Encounter - Eileen Lucas RN - 02/26/2024 3:57 PM EDT Received outside imaging reports via electronic fax. Uploaded to scanned documents for provider to review. documented in this encounterBet[facility]04-23-2024 Telephone encounter Note * Telephone Encounter - Brandon Farris PSS - 02/26/2024 1:53 PM EDT Patient is scheduled on 03/03/2024 at 12:30pm. [address]23-2024 Miscellaneous Notes* Telephone Encounter - Brandon Farris PSS - 02/26/2024 1:53 PM EDT Patient is scheduled on 03/03/2024 at 12:30pm. * Telephone Encounter - Brandon Farris PSS - 02/26/2024 12:13 PM EDT Called patient to offer virtual appointment with Dr. Dubose on 03/03/2024 at 12:30pm. No answer, unable to leave voicemail. documented in this encounterBet[facility]04-23-2024 Telephone encounter Note * Telephone Encounter - Brandon Farris PSS - 02/26/2024 12:13 PM EDT Called patient to offer virtual appointment with Dr. Dubose on 03/03/2024 at 12:30pm. No answer, unable to leave voicemail. [facility]04-19-[facility] History of Present illness Narrative* Yuridia Bourgeois RRT - 02/22/2024 1:47 PM EDT [facility] unable to provide nebulizer. Order and office notes faxed to [employer] [phone], . 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 documented in this encounterBethesda [facility] Hospital04-18-2024 Evaluation note* Author [facility] Authored February 21, 2024 11: 21am [...] determine the need for PPI [facility] Work Phone: 1(286) 158-154704-12-2024 History of Present illness Narrative* Darrel Carranza RRT - 02/15/2024 5:00 PM EDT Faxed nebulizer rx to [facility] in [facility] [phone], fax [phone] Darrel Carranza RRT documented in this encounterBethesda [facility] Hospital03-19-2024 Miscellaneous Notes* Telephone Encounter - John Madison - 01/22/2024 2:46 PM EDT Images from the original note were not included. Imported external notification of equipment delivery from [employer], dated 01/16/2024. Please allow time delay for documents to appear in for[MD] (Scanned Documents Tab). Images can take up to 24 hours to appear in for[MD]. documented in this encounterBethesda [facility] Hospital02-23-2024 Instructions* Patient Instructions* Ubaldo Dubose MD [...] (I will send a prescription to a [employer] company) How to Use the Acapella Assure [...] should not be placed in the automatic band maker, boiled or bleached. 4. Rinse in clean water. 5. Shake off excess water. 6. Drain dry the device. Place each piece downward or rest the unit on its side. 7. Replace the mouthpiece when the unit is completely dry and ready for use. documented in this encounterBethesda [facility] Hospital02-23-2024 History of Present illness Narrative* Ubaldo Dubose MD - 12/28/2023 1:30 PM EST Images from the original note were not included. Respiratory Ruby Karuna Reynaga is a 78 year old female here for evaluation by the [facility] Interstitial Lung Disease Team. 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 SOCIAL HISTORY Social History Tobacco Use Smoking [...] myself) Laboratory Data Laboratory data reviewed in [facility] Everywhere. Pulmonary Function [...] her how to use it but her gpedkuen-sj-exx states that she will likely not be [...] 2023 5:04 PM CC: documented in this encounterBethesda North Hospital02-22-2024 Procedure note* Edgar Bryson RT(R) - [...] PATIENT PRESENTS WITH AN IMPLANTABLE OR ATTACHED ADVANCED PRACTICE PROFESSIONAL: No RADIOLOGY DEPARTMENT: CT; Exam(s) Completed: Chest PERIPHERAL IV DATA: Not applicable SIGNED BY: RT Reginald(R) December 27, 2023 1:09 PM [facility]02-22-[facility] Procedure note* Edgar Bryson RT(R) - 12/27/2023 12:45 PM EST Radiology Service Progress Note PATIENT NAME: Karuna Ryenaga DATE OF SERVICE: December 27, 2023 TIME: [...] PATIENT PRESENTS WITH AN IMPLANTABLE OR ATTACHED ADVANCED PRACTICE PROFESSIONAL: No RADIOLOGY DEPARTMENT: CT; Exam(s) Completed: Chest PERIPHERAL IV DATA: Not applicable SIGNED BY: RT Reginald(R) December 27, 2023 1:09 PM documented in this encounterBethesda [facility] Hospital02-20-2024 History of Present illness Narrative* Yamini Lan RRT - 12/25/2023 3:10 PM EST Pulmonary Function Test documented in this encounterBethesda [facility] Hospital02-20-2024 History of Present illness Narrative* Yamini Lan RRT - 12/25/2023 2:58 PM EST PULM FUNCTION SMARTBLOCK: Provider: Ubaldo Dubose MD Spirometry: 1 DLCO: 1 documented in this encounterBethesda [facility] Hospital04-18-2023 Evaluation note* Author roni [facility] Authored February 21, 2024 11: 21am [...] PPI [facility] Work Phone: 1(750) 298-508112-16-2021 NoteHISTORY: Bone density screening. COMPARISON: None available. [...] FOLLOW-UP RECOMMENDED Report reported and signed by Vimal Ernst on 10/20/[address] [place] [address] Medical SpecialistConsult note Author Praveena Garcia [facility] Note Date/Time March 14, 2025 3:10p m [facility] [address] [place] [address] Cardiology Consult Note Signed Patient: Karuna Reynaga MR#: [id number] : 1945 Acct:[id number] Age/Sex: 80 / F Adm Date: 5 Loc: 3T Room: [address] [place] [address] Type: ADM IN Attending Dr: Renan Murguia [...] ischemia. Echo at the time showed normal MYUS06-67% with moderately dilated RV and mild pulmonary hypertension. Repeat limited echo today shows normal LV function 60-65% with normal wall motion. Shedenies any chest pain, palpitations, lightheadedness, dizziness, BLE edema, orthopnea or PND. Review of Systems Review of Systems All other systems reviewed & are negative unless noted below or in HPI [facility] Medical History Idiopathic interstitial pulmonary disease Osteopenia [...] monohydrate/macrocrystals 100 mg capsule 100 mg PO .xezc-ljrqa-vit 03/14/25 [History Confirmed 03/14/25] simvastatin 20 mg [...] Lymph # (Auto) 1.3 1.2 (1.00-4.8) x10E3/uL [place] # (Auto) 0.5 0.6 (0.0-0.8) x10E3/uL Eos [...] ml @ 250 mls/hr IV ONCE ONE Rx#:[id number] cefTRIAXone 1GM-*NS* 1 gm In 50 50 / 50 ml @ 100 mls/hr IV ONCE ONE Rx #:[id number] Oral 100 / 100 Other: # Voids [...] Human metapneumovirus pneumonia Plan Assessment: Type II [place] in the setting of community acquired pneumonia [...] signed by Praveena Garcia MD> 03/14/25 1510 [facility] Work Phone: Discharge summary Author Renan Murguia [facility] Note Date/Time March 15, 2025 3:38p m [facility] [address] [place], [place] [address] Discharge Summary Signed Patient: Karuna Reynaga MR#: [id number] : 1945 Acct:[id number] Age/Sex: 80 / F Adm Date: 5 Loc: 3T Room: [address] [place] [address]: Renan Murguia MD Copies to: [...] Plan Discharge Plan Patient Disposition: Home Health [facility] Activity: No Activity Restriction Diet: Regular Additional [...] monohyd/m-cryst 100 mg capsule 100 mg PO .twql-wvwfr-gac simvastatin 20 mg tablet 20 mg PO QHS Other Ambulatory Orders: Initiate Home Health (Routine) Timeframe: 1 Day Location: Determined by Patient Ordered By: Renan Murguia Follow Up: Jamal Alvarez DO [Primary Care Provider] - (Call office on Sunday to schedulefollow-up with your Primary Care Provider within 3-5 days of discharge. ) Continuity of Care Document Health Concerns: A [facility] screening has identified you as [...] Four Ways to Beat the Frailty Risk 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) Mixed hyperlipidemia documented [facility]* Diagnosis Dermatophytosis of nail- Primary Well controlled type 2 diabetes mellitus with neurological manifestations (HCC) Type II or unspecified type diabetes mellitus with neurological manifestations, not stated as uncontrolled Unspecified hypothyroidism documented in this encounter [facility]* Diagnosis Dermatophytosis of nail- Primary documented in this encounter [facility]* Diagnosis ILD (interstitial lung disease) (HCC)- Primary Postinflammatory pulmonary fibrosis Shortness of breath documented [facility] this encounter [facility]* Diagnosis Bronchiectasis without complication (HCC)- Primary Bronchiectasis without acute exacerbation Aspiration pneumonitis (HCC) Pneumonitis due to inhalation of food or vomitus Traumatic brain injury with loss of consciousness, sequela (HCC) documented in this encounter [facility]* Diagnosis Onset Date Resolution Status Bronchitis noneactive [facility] Work Phone: evaluation note* Diagnosis Bronchiectasis without complication (HCC)- Primary Bronchiectasis without acute exacerbation documented in this encounter [facility]* Diagnosis Bronchiectasis without complication (HCC)- Primary Bronchiectasis without acute exacerbation [facility]* Diagnosis Bronchiectasis without complication (HCC)- Primary Bronchiectasis without acute exacerbation Aspiration pneumonitis (HCC) Pneumonitis due to inhalation of food or vomitus Traumatic brain injury with loss of consciousness, sequela (HCC) documented in this encounter [facility]* Diagnosis Shortness of breath Hyperlipidemia, [...] Medication course changed documented in this encounter [facility] Work Phone: Evaluation note* Diagnosis Convulsions, unspecified convulsion type (HCC)- Primary documented in this encounter [facility]* Diagnosis Bronchiectasis without complication (HCC) Bronchiectasis without acute exacerbation documented [facility] this encounter [facility]* Diagnosis Bronchiectasis without complication (HCC)- Primary Bronchiectasis without acute exacerbation documented [facility] this encounter [facility]* Diagnosis Bronchiectasis without complication (HCC)- Primary Bronchiectasis without acute exacerbation Yeast infection Candidiasis of unspecified site documented [facility] this encounter [facility]* Diagnosis Interstitial pulmonary disease (HCC) Postinflammatory pulmonary fibrosis documented [facility] this encounter [facility]* Diagnosis Convulsions, unspecified convulsion type (HCC)- Primary [facility] this [facility]* Diagnosis Focal epilepsy with impairment of consciousness, intractable (HCC)- Primary Localization-related (focal) (partial) 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, with intractable epilepsy documented [facility] this encounter [facility]* Diagnosis Recurrent UTI- Primary Urinary tract infection, site not specified Bronchiectasis without complication (CMS/HCC) Atherosclerosis of aorta (CMS/HCC) Atherosclerosis of aorta Combined hyperlipidemia (CMS/HCC) Other and unspecified hyperlipidemia 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 (CMS/HCC) Need for immunization against influenza Need for prophylactic vaccination and inoculation against influenza Type 2 diabetes mellitus with peripheral neuropathy ([facility]/HCC) Gastroesophageal reflux disease without esophagitis Esophageal reflux Hypothyroidism, unspecified type (CMS/HCC) Moderate asthma without complication, unspecified whether persistent (CMS/HCC) Osteoporosis, unspecified osteoporosis type, unspecified pathological fracture presence ([facility]) Urinary incontinence, unspecified type Seizure ([facility]) Other convulsions Traumatic brain injury with loss of consciousness, subsequent encounter Medication management documented in this encounter [facility]* Diagnosis Bronchiectasis without complication (HCC) Bronchiectasis without acute exacerbation documented [facility] this [facility]* Diagnosis Focal epilepsy with impairment of consciousness, intractable ([facility])- Primary Localization-related (focal) (partial) 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, with intractable epilepsy documented in this encounter [facility]* Diagnosis Bronchiectasis without complication ([facility]/HCC)- Primary Edema, unspecified type Recurrent UTI Urinary tract infection, site not specified Seizure ([facility]) Other convulsions Traumatic brain injury with loss of consciousness, subsequent encounter DISH (diffuse idiopathic skeletal hyperostosis) Ankylosing vertebral hyperostosis Hypothyroidism, unspecified type ([facility]/HCC) Combined hyperlipidemia ([facility]) Other and unspecified hyperlipidemia Medicare annual wellness visit, subsequent Advance care planning Other specified counseling documented in this encounter [facility]* Diagnosis Onset Date Resolution Status Admit Date Acute confusion acute March 14, 2025 1:57am Acute hypoxic respiratory failure ac kiana March 14, 2025 1:57am Community acquired pneumonia acute March 14, 2025 1:57am Elevated troponin acute March 1:57am Human metapneumovirus pneumonia acut e March 14, 2025 1:57am Weakness acute March 14, 2025 1:57am [facility] Work Phone: Evaluation note* Diagnosis Bronchiectasis with acute lower respiratory infection ([facility]/HCC)- Primary Pneumonia due to human metapneumovirus Hilar adenopathy Enlargement of lymph nodes Severe persistent reactive airway disease with acute exacerbation ([facility]) Pulmonary hypertension, unspecified ([facility]) Chronic reflux esophagitis Traumatic brain injury with loss of consciousness, subsequent encounter 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 (CMS/HCC) 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) Hypothyroidism, unspecified type ([facility]) documented in this encounter [facility]* Diagnosis Ankylosing spondylitis lumbar region (CMS/HCC)- Primary documented in this encounter [facility]* Diagnosis OME (otitis media with effusion), right- Primary documented in this encounter [facility] HealthcareEvaluation note* Diagnosis Acute bilateral mastoiditis- Primary Other specified hearing loss of both ears documented in this encounter [facility] HealthcareEvaluation note* Diagnosis Generalized abdominal pain- Primary Abdominal pain, generalized Diarrhea, unspecified type Nausea and vomiting, unspecified vomiting type Other specified intestinal obstruction, unspecified whether partial or complete (HCC) Diverticulosis Diverticulosis of colon (without mention of hemorrhage) documented in this encounter [facility] HealthcareEvaluation note* Diagnosis Bronchiectasis without complication (HCC) Bronchiectasis without acute exacerbation [facility] Diagnosis Symptomatic cholelithiasis Calculus of gallbladder without mention of cholecystitis or obstruction [facility] Diagnosis Focal epilepsy with impairment of consciousness, intractable (HCC)- Primary Localization-related (focal) (partial) 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, with intractable epilepsy [facility] Diagnosis Pure hypercholesterolemia- Primary Pure hypercholesterolemia Prediabetes Other abnormal glucose 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 (HCC) Chronic obstructive pulmonary disease, unspecified COPD type (HCC) Bronchiectasis without complication (HCC) Seizure disorder (HCC) Unspecified epilepsy without mention of intractable epilepsy Pulmonary hypertension (HCC) Other chronic pulmonary heart diseases Acquired hypothyroidism Unspecified hypothyroidism Left leg weakness Muscle weakness (generalized) 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 Chronic midline thoracic back pain Lumbar spine pain Agitation Other and unspecified special symptom or syndrome, not elsewhere classified documented in this encounter [facility] HealthcareEvaluation note* Diagnosis Dysfunction of both eustachian tubes- Primary Dysfunction of Eustachian tube Symptomatic cholelithiasis Calculus of gallbladder without mention of cholecystitis or obstruction [facility] Diagnosis Middle ear effusion, right- Primary Chronic otitis media of both ears Unspecified otitis media Symptomatic cholelithiasis Calculus of gallbladder without mention of cholecystitis or obstruction [facility] Author Magda Navarro [facility] Note Date/Time March 14, 2025 4:16a m [facility] [address] [place] [address] Hospitalist H&P Signed Patient: Karuna Reynaga MR#: [id number] : 1945 Acct:[id number] Age/Sex: 80 / F Adm Date: 5 Loc: Room: [address] [place] [address] Type: ADM IN Attending Dr: Matias Valdez DO Copies to: Jamal Alvarez,DO Magda Navarro, ANIMATED CARTOONS PAINTERAlvaro Valdez, DO~ HPI DATE OF EXAMINATION: 03/14/25 CHIEF COMPLAINT: [...] will be admitted as inpatient to the [facility] telemetry floor. Review of Systems Review of Systems Unobtainable due to mental condition [facility] Medical History Idiopathic interstitial pulmonary disease Osteopenia [...] monohydrate/macrocrystals 100 mg capsule 100 mg PO .[id number] 03/14/25 [History Confirmed 03/14/25] simvastatin 20 mg [...] % (Auto) 23.1 % (.) 03/13/25 22:38 [place] % (Auto) 9.3 % (.) 03/13/25 22:38 Eos % (Auto) 1.1 % (.) 03/13/25 22:38 Baso % (Auto) 0.7 % (.) 03/13/25 22:38 Nucleat RBC Rel Count 0.1 /100 WBC (0-0.5) 03/13/25 22:38 Neut # (Auto) 3.7 x10E3/uL (1.8-7.7) 03/13/25 22:38 Lymph # (Auto) 1.3 x10E3/uL (1.00-4.8) 03/13/25 22:38 [place] # (Auto) 0.5 x10E3/uL (0.0-0.8) 03/13/25 22:38 [...] pH 5.5 (5.0-9.0) 03/13/25 23:11 Ur Specific [place] 1.032 (1.001-1.030) H 03/13/25 23:11 Urine Protein [...] 3 Documented By: Magda Navarro APRN 03/14/25 020 Signed By: <Electronically signed by ROSELYN Navarro> 03/14/25 0239 <Electronically signed by Matias Valdez DO> 03/14/25 0416 [facility] Work Phone: Hospital Discharge instructions Additional Instructions DISCHARGE INSTRUCTIONS FOR UPPER ENDOSCOPY WHAT TO EXPECT: - You may feel full, gassy or cramping after your procedure. In some cases, this may be from a few hours to a day. Walking may help relieve the discomfort. - Your throat may feel sore today from the scope that the doctor passed through your throat to visualize your stomach. Take a throat lozenge or suck on ice to ease the discomfort. - You may notice some streaks of blood in your sputum if the doctor has taken a biopsy. - You should begin to recover from anesthesia within 1 hour of the procedure, however may feel groggy for the next 24 hours. DO's AND DON'Ts: - Call your doctor right away if you have a hard abdomen, severe pain, vomiting or if you cough up large amounts of blood. - Call your doctor if you develop any rashes, hives or difficulty breathing. - If you take 81 mg aspirin for your heart it is safe to resume this medication. - If you take other blood thinner medications your doctor will instruct you when these can safely be resumed. - Do NOT drive for 24 hours. - Do NOT operate machinery such as power tools, lawn mowers, snow blowers, sewing machines, etc. for 24 hours. - Avoid alcoholic beverages and drugs for allergies, nerves, or sleep. - Do NOT stay alone. Do NOT leave your child unattended. - Do NOT make important personal or business decisions or sign any legal documents. - Eat solid foods and drink liquids in smaller amounts than usual until normal appetite returns. If you should experience an upset stomach, liquids high in sugar content (soda, Van-Aid, non-acid juices) are recommended. - Do NOT smoke. - Do take it easy today. You need not stay in bed, but avoid strenuous activities such as jogging or working out. FOLLOW UP & RECOMMENDATIONS: -Notify the doctor if you have any problems. -Follow up pathology - Continue Omeprazole -Will arrange for modified barium swallow -Office number [phone]. [facility] Work Phone: Progress note Author W Deshawn [facility] April 16, 2024 6:05pm Note Date/Time April 16, 2024 6:05 pm [facility] [address] [place] [address] Cardiology Progress Note Signed Patient: Karuna Reynaga MR#: [id number] : 1945 Acct:[id number] Age/Sex: 79 / F Adm Date: 4 Loc: Room: [address] [place] [address] Type: ADM IN Attending Dr: Renan Murguia MD Copies to: ~ Date of Service: 04/16/2024 Subjective Principal diagnosis: Near syncopal episode; troponin elevation Interval history: Ms. Reynaga is a 79 year old female that was seen in cardiology consultation at the request of the hospitalist and in conjunction with second-year medical technologist blood bank Dr. Hernandez for elevated troponin levels. Patient is seen and evaluated with the medical technologist blood bank, I agree with her evaluation and note, [...] on Lasix one month ago by her extract puller, Dr. Lora, for possible heart failure. Her [...] % (Auto) 66.9 Lymph % (Auto) 22.3 [place] % (Auto) 6.4 Eos % (Auto) 3.6 Baso % (Auto) 0.8 Nucleat RBC Rel Count 0.0 Neut # (Auto) 5.0 Lymph # (Auto) 1.7 [place] # (Auto) 0.5 Eos # (Auto) 0.3 [...] <Electronically signed by Vic Hess DO> 04/16/241804 [facility] Work Phone: Progress note Author Renan Murguia [facility] Note Date/Time March 14, 2025 1:01p m [facility] [address] [place] [address] Hospitalist Progress Note Signed Patient: Karuna Reynaga MR#: [id number] : 1945 Acct:[id number] Age/Sex: 80 / F Adm Date: 5 Loc: Room: [address] [place] [address] Type: ADM IN Attending Dr: Renan Murguia [...] of care and confirmed it with the resident/student/COMPLIANCE REVIEW SPECIALIST. Patient seen sitting in chair at bedside [...] Mcg Tablet PO 03/14/26 06:29 50 mcg [email or web address] MIRYAM Administration Liothyronine Sodium 5 mcg 03/14/25 [...] 03/14/25 1301 <Electronically signed by DO JAUN aHwkins> 03/14/25 1213 [facility] Work Phone: Progress note Author Renan Murguia [facility] Note Date/Time March 15, 2025 1:54p m [facility] [address] [place] [address] Hospitalist Progress Note Signed Patient: Karuna Reynaga MR#: [id number] : 1945 Acct:[id number] Age/Sex: 80 / F Adm Date: 5 Loc: Room: [address] [place] [address] Type: ADM IN Attending Dr: Renan Murguia [...] Tablet PO 03/15/26 08:59 Not Given DAILY MIRYMA Sodium Chloride 0 ml 03/13/25 17:14 Sodium Chloride 0.9 % 10 Ml Syringe IV-PUSH 03/13/26 17:13 PRN PRN Flush A&P - Hospitalist Assessment/Plan (1) Community acquired pneumonia: Plan . Patient is stable to be discharged home. No evidence of heart failure. Appreciate input from cardiology. Documented By: Renan Murguia MD 03/15/25 9195 Signed By: <Electronically signed by Renan Murguia MD> 03/15/25 1358 [facility] Work Phone: Reason for referral (narrative)* Outpatient Procedure (Routine) - Authorized Specialty Diagnoses / Procedures Referred By Contac t Referred To Contact [facility] Diagnoses Bronchiectasis without complication (HCC) Procedures LUNG DIFFUSION CAPACITY (DLCO) DIFFUSING CAPACITY Ubaldo Dubose MD [address] [place] [address] [address] Referral ID Status Reason Start Date Expiration Date Visits Requested Visits Authorized [id number] Authorized Auto-Generat ed Referral 12/28/2023 01/26/2025 1 1 * Outpatient Procedure (Routine) - Authorized Specialty Diagnoses / Procedures Referred By Contac t Referred To [facility] Diagnoses Bronchiectasis without complication (HCC) Procedures SPIROMETRY BASELINE ONLY SPMTRY W/VC EXPIRATORY MIRIAM W/[place] [address] [place] [address] [address] Referral ID Status Reason Start Date Expiration Date Visits Requested Visits Authorized [id number] Authorized Auto-Generat ed Referral 12/28/2023 01/26/2025 1 1 [facility] for referral (narrative)* Outpatient Procedure (Routine) - Pending Review Specialty Diagnoses / Procedures Referred By Contac t Referred To [facility] Diagnoses Convulsions, unspecified convulsion type (HCC) Procedures EPIL EEG LONG EEG EXTENDED MONITORING 61-119 MINUTES ELECTROENCEPHALOGRAM REC COMA/SLEEP ONLY Brian Lorenzo APRN.CNP [address] [place] [address] [place] [address] Referral ID Status Reason Start Date Expiration Date Visits Requested Visits Authorized [id number] Pending Review Auto-Generat ed Referral 04/22/2024 04/22/2025 1 1 [facility] for referral (narrative)* Outpatient Procedure (Routine) - New Request Specialty Diagnoses / Procedures Referred By Contac t Referred To [facility] Diagnoses Convulsions, unspecified convulsion type (HCC) Procedures EPIL EEG LONG EPIL EEG LONG EEG EXTENDED MONITORING 61-119 MINUTES ELECTROENCEPHALOGRAM REC COMA/SLEEP ONLY Melvi García PA-C [address] [facility] [address] [place] [address] Neurological Ruby [address] [id number] Referral ID Status Reason Start Date Expiration Date Visits Requested Visits Authorized [id number] New Request Auto-Generat ed Referral 07/30/2024 07/30/2025 1 1 [facility] Consult, Test, Treat (Routine) - New Request Specialty Diagnoses / Procedures Referred By Marie t Referred To Contact Procedures HEARING TEST/AUDIOGRAM COMPRE AUDIOMETRY THRESHOLD EVAL SP SAMARAIJ Anastasia Kraus AUD [address] [place] [address] Phone: tel: fax: [facility] [address] [place] [address] Referral ID Status Reason Start Date Expiration Date Visits Requested Visits Authorized [id number] New Request Auto-Generat ed Referral 07/10/2025 07/11/2026 1 1 [facility] Family History No Family History Records [...] 142024 1:57am Community acquired pneumonia March 14, 2 025 1:57am Elevated troponin March 14, 2025 1:57a m Human metapneumovirus pneumonia March 1:57am Weakness March 14, 2025 1:57a m Chief Complaint Admit Date See order February 06, 2025 2:09 pm Unknown February 25, 2025 3:3 0pm cough, sob, chest pain March 14, 2025 1: 57am cough, sob, chest pain March 14, 2025 3: 02pm Chief Complaint Admit Date See order February 06, 2025 2:09 pm Unknown February 25, 2025 3:3 0pm cough, sob, chest pain March 14, 2025 1: 57am cough, sob, chest pain March 14, 2025 3: 02pm Gastroesophageal reflux disease (GERD) J [facility] 2024 12:46pm Chief Complaint Admit Date Unknown February 25, 2025 3:3 0pm cough, sob, chest pain March 14, 2025 1: 57am cough, sob, chest pain March 14, 2025 3: 02pm Gastroesophageal reflux disease (GERD) J [facility] 2024 12:46pm R59.0 May 07, 2025 7:40p m Chief Complaint Admit Date cough, sob, chest pain March 14, 2025 1: 57am cough, sob, chest pain March 14, 2025 3: 02pm Gastroesophageal reflux disease (GERD) J [facility] 2024 12:46pm R59.0 May 07, 2025 7:40p m R13.10 May 28, 2025 1:29 pm Reason for Referral Specialty Diagnoses / Procedures Referred By Contac t Referred To Contact Cardiology Diagnoses Shortness of breath Cough, unspecified type Abnormal lung sounds Procedures Transthoracic Echo Complete NE ECHO TTHRC R-T 2D W/WOM-MODE COMPL SPEC&COLR D Judit Lora MD [address] [facility] [address] [place] [address] Referral ID Status Reason Start Date Expiration Date Visits Requested Visits Authorized [id number] Pending Review Perform Procedure 03/10/2024 03/10/2025 1 1 Specialty Diagnoses / Procedures Referred By Contac t Referred To Contact Diagnoses Shortness of breath Procedures ECG 12 Lead Judit Lora MD [address] [facility] [address] [place] [address] Referral ID Status Reason Start Date Expiration Date V isits Requested Visits Authorized [id number] Authorized 03/10/2024 03/10/2025 1 1 Specialty Diagnoses / Procedures Referred By Contac t Referred To Contact Cardiology Diagnoses Shortness of breath Procedures Follow Up In Cardiology Judit Lora MD [address] [facility] [address] [place] [address] Judit Lora MD [address] [facility] [address] [place] [address] Referral ID Status Reason Start Date Expiration Date V isits Requested Visits Authorized [id number] Authorized 03/10/2024 03/10/2025 1 1 Specialty Diagnoses / Procedures Referred By Contac t Referred To Contact CT IMAGING Diagnoses Interstitial pulmonary disease (HCC) Procedures CT CHEST WO IVCON DIAGNOSTIC COMPUTED TOMOGRAPHY THORAX W/O CNTRST Dee Leal, ANIMATED CARTOONS PAINTER.MORGUE TECHNICIAN [address] [place] [address] [place] [address] Referral ID Status Reason Start Date Expiration Date V isits Requested Visits Authorized [id number] Closed Auto-Generate d Referral 12/11/2023 01/09/2025 1 [...] section and content) DATE CREATED AUTHOR 10/21/2021 [facility] dical Specialist DATE CREATED AUTHOR AUTHOR'S ORGANIZ ATION 10/22/2021 [facility] DATE CREATED AUTHOR AUTHOR'S ORGANIZ ATION 02/12/2023 [facility] DATE CREATED AUTHOR AUTHOR'S ORGANIZ ATION 01/09/2025 [facility] DATE CREATED AUTHOR AUTHOR'S ORGANIZ ATION 01/19/2025 [facility] DATE CREATED AUTHOR AUTHOR'S ORGANIZ ATION 05/05/2025 [facility] DATE CREATED AUTHOR AUTHOR'S ORGANIZ ATION 05/30/2025 [facility] DATE CREATED AUTHOR AUTHOR'S ORGANIZ ATION 06/29/2025 [facility] dical Specialists EPIC DATE CREATED AUTHOR AUTHOR'S ORGANIZ ATION 07/15/2025 [facility] Source Comments (unrecognize d section and content) In the event this informatio n is protected by the Federal Confidentiality of Alcohol and Drug Abuse Patient Records regulations: The Federal rules restrict any use of the information to criminally investigate or prosecute any alcohol or drug abuse patient.[facility] the event this information is protected by the Federal Confidentiality of Alcohol and Drug Abuse Patient Records regulations: The Federal rules restrict any use of the information to criminally investigate or prosecute any alcohol or drug abuse patient.[facility] the event this information is protected by the Federal Confidentiality of Alcohol and Drug Abuse Patient Records regulations: The Federal rules restrict any use of the information to criminally investigate or prosecute any alcohol or drug abuse patient.[facility] the event this information is protected by the Federal Confidentiality of Alcohol and Drug Abuse Patient Records regulations: The Federal rules restrict any use of the information to criminally investigate or prosecute any alcohol or drug abuse patient.[facility] the event this information is protected by the Federal Confidentiality of Alcohol and Drug Abuse Patient Records regulations: The Federal rules restrict any use of the information to criminally investigate or prosecute any alcohol or drug abuse patient.[facility] the event this information is protected by the Federal Confidentiality of Alcohol and Drug Abuse Patient Records regulations: The Federal rules restrict any use of the information to criminally investigate or prosecute any alcohol or drug abuse patient.[facility] the event this information is protected by the Federal Confidentiality of Alcohol and Drug Abuse Patient Records regulations: The Federal rules restrict any use of the information to criminally investigate or prosecute any alcohol or drug abuse patient.[facility] the event this information is protected by the Federal Confidentiality of Alcohol and Drug Abuse Patient Records regulations: The Federal rules restrict any use of the information to criminally investigate or prosecute any alcohol or drug abuse patient.[facility] the event this information is protected by the Federal Confidentiality of Alcohol and Drug Abuse Patient Records regulations: The Federal rules restrict any use of the information to criminally investigate or prosecute any alcohol or drug abuse patient.[facility] the event this information is protected by the Federal Confidentiality of Alcohol and Drug Abuse Patient Records regulations: The Federal rules restrict any use of the information to criminally investigate or prosecute any alcohol or drug abuse patient.[facility] the event this information is protected by the Federal Confidentiality of Alcohol and Drug Abuse Patient Records regulations: The Federal rules restrict any use of the information to criminally investigate or prosecute any alcohol or drug abuse patient.[facility] Hospital[facility] the event this information is protected by the Federal Confidentiality of Alcohol and Drug Abuse Patient Records regulations: The Federal rules restrict any use of the information to criminally investigate or prosecute any alcohol or drug abuse patient.[facility] the event this information is protected by the Federal Confidentiality of Alcohol and Drug Abuse Patient Records regulations: The Federal rules restrict any use of the information to criminally investigate or prosecute any alcohol or drug abuse patient.[facility] Hospital[facility] the event this information is protected by the Federal Confidentiality of Alcohol and Drug Abuse Patient Records regulations: The Federal rules restrict any use of the information to criminally investigate or prosecute any alcohol or drug abuse patient.[facility] Hospital[facility] the event this information is protected by the Federal Confidentiality of Alcohol and Drug Abuse Patient Records regulations: The Federal rules restrict any use of the information to criminally investigate or prosecute any alcohol or drug abuse patient.[facility] the event this information is protected by the Federal Confidentiality of Alcohol and Drug Abuse Patient Records regulations: The Federal rules restrict any use of the information to criminally investigate or prosecute any alcohol or drug abuse patient.[facility] the event this information is protected by the Federal Confidentiality of Alcohol and Drug Abuse Patient Records regulations: The Federal rules restrict any use of the information to criminally investigate or prosecute any alcohol or drug abuse patient.[facility] the event this information is protected by the Federal Confidentiality of Alcohol and Drug Abuse Patient Records regulations: The Federal rules restrict any use of the information to criminally investigate or prosecute any alcohol or drug abuse patient.[facility] the event this information is protected by the Federal Confidentiality of Alcohol and Drug Abuse Patient Records regulations: The Federal rules restrict any use of the information to criminally investigate or prosecute any alcohol or drug abuse patient.[facility] Hospital[facility] the event this information is protected by the Federal Confidentiality of Alcohol and Drug Abuse Patient Records regulations: The Federal rules restrict any use of the information to criminally investigate or prosecute any alcohol or drug abuse patient.[facility] Hospital[facility] the event this information is protected by the Federal Confidentiality of Alcohol and Drug Abuse Patient Records regulations: The Federal rules restrict any use of the information to criminally investigate or prosecute any alcohol or drug abuse patient.[facility] Hospital[facility] the event this information is protected by the Federal Confidentiality of Alcohol and Drug Abuse Patient Records regulations: The Federal rules restrict any use of the information to criminally investigate or prosecute any alcohol or drug abuse patient.[facility] Hospital[facility] the event this information is protected by the Federal Confidentiality of Alcohol and Drug Abuse Patient Records regulations: The Federal rules restrict any use of the information to criminally investigate or prosecute any alcohol or drug abuse patient.[facility] Hospital[facility] the event this information is protected by the Federal Confidentiality of Alcohol and Drug Abuse Patient Records regulations: The Federal rules restrict any use of the information to criminally investigate or prosecute any alcohol or drug abuse patient.[facility] HospitalIn the event this information is protected by the Federal Confidentiality of Alcohol and Drug Abuse Patient Records regulations: The Federal rules restrict any use of the information to criminally investigate or prosecute any alcohol or drug abuse patient.[facility] Hospital[facility] the event this information is protected by the Federal Confidentiality of Alcohol and Drug Abuse Patient Records regulations: The Federal rules restrict any use of the information to criminally investigate or prosecute any alcohol or drug abuse patient.[facility] Hospital[facility] the event this information is protected by the Federal Confidentiality of Alcohol and Drug Abuse Patient Records regulations: The Federal rules restrict any use of the information to criminally investigate or prosecute any alcohol or drug abuse patient.[facility] HospitalIn the event this information is protected by the Federal Confidentiality of Alcohol and Drug Abuse Patient Records regulations: The Federal rules restrict any use of the information to criminally investigate or prosecute any alcohol or drug abuse patient.[facility] Hospital[facility] the event this information is protected by the Federal Confidentiality of Alcohol and Drug Abuse Patient Records regulations: The Federal rules restrict any use of the information to criminally investigate or prosecute any alcohol or drug abuse patient.[facility] HospitalIn the event this information is protected by the Federal Confidentiality of Alcohol and Drug Abuse Patient Records regulations: The Federal rules restrict any use of the information to criminally investigate or prosecute any alcohol or drug abuse patient.[facility] HospitalIn the event this information is protected by the Federal Confidentiality of Alcohol and Drug Abuse Patient Records regulations: The Federal rules restrict any use of the information to criminally investigate or prosecute any alcohol or drug abuse patient.[facility] HospitalIn the event this information is protected by the Federal Confidentiality of Alcohol and Drug Abuse Patient Records regulations: The Federal rules restrict any use of the information to criminally investigate or prosecute any alcohol or drug abuse patient.[facility] HospitalIn the event this information is protected by the Federal Confidentiality of Alcohol and Drug Abuse Patient Records regulations: The Federal rules restrict any use of the information to criminally investigate or prosecute any alcohol or drug abuse patient.[facility] HospitalIn the event this information is protected by the Federal Confidentiality of Alcohol and Drug Abuse Patient Records regulations: The Federal rules restrict any use of the information to criminally investigate or prosecute any alcohol or drug abuse patient.[facility] HospitalIn the event this information is protected by the Federal Confidentiality of Alcohol and Drug Abuse Patient Records regulations: The Federal rules restrict any use of the information to criminally investigate or prosecute any alcohol or drug abuse patient.[facility] HospitalIn the event this information is protected by the Federal Confidentiality of Alcohol and Drug Abuse Patient Records regulations: The Federal rules restrict any use of the information to criminally investigate or prosecute any alcohol or drug abuse patient.[facility] HospitalIn the event this information is protected by the Federal Confidentiality of Alcohol and Drug Abuse Patient Records regulations: The Federal rules restrict any use of the information to criminally investigate or prosecute any alcohol or drug abuse patient.[facility] HospitalIn the event this information is protected by the Federal Confidentiality of Alcohol and Drug Abuse Patient Records regulations: The Federal rules restrict any use of the information to criminally investigate or prosecute any alcohol or drug abuse patient.[facility] HospitalIn the event this information is protected by the Federal Confidentiality of Alcohol and Drug Abuse Patient Records regulations: The Federal rules restrict any use of the information to criminally investigate or prosecute any alcohol or drug abuse patient.[facility] Care Teams (unrecognized sec tion and content) Camper Assembler Relationship Specialty Start Date End Date Kostas Vance, DO [address] [place] [address] PCP - General 05/25/09 Camper Assembler Relationship Specialty Start Date End Date Kostas Vance, DO [address] [place] [address] PCP - General 05/25/09 Camper Assembler Relationship Specialty Start Date End Date Kostas Vance, DO [address] [facility] [place] [address] PCP - General 05/25/09 Team Status: Inactive [...] November 21, 2023 End: November 21, 2023 Camper Assembler Relationship Specialty Start Date End Date AntonioJamal DO [address] [place] [address] PCP - General Internal Medicine 12/25/23 Camper Assembler Relationship Specialty Start Date End Date Antonio Jamal MerchantanDO [address] [place] [address] PCP - General Internal Medicine 12/25/23 Camper Assembler Relationship Specialty Start Date End Date AntonioJamal DO [address] [place] [address] PCP - General Internal Medicine 12/25/23 Team [...] Provider Active S tart: February 13, 2024 Camper Assembler Relationship Specialty Start Date End Date Jamal Alvarez DO [address] [place] [address] PCP - General Internal Medicine 12/25/23 Team Status: Active Member Role Status Dates Jamal Alvarez DO Primary Care Provide r, Attending Provider Active Start: February 19, 2024 Team Status: Inactive Member Role Status Dates Jamal Alvarez DO Primary Care Provider Active Start: February 21, 2024 End: February 21, 2024 Flex Ramos MD Attending Provider Active Start: February 21, 2024 End: February 21, 2024 Camper Assembler Relationship Specialty Start Date End Date Jamal Alvarez DO [address] [place] [address] PCP - General Internal Medicine 12/25/23 Team Status: Active Member Role Status Dates Jamal Alvarez DO Primary Care Provide r, Attending Provider Active Start: February 21, 2024 Team Status: Inactive Member Role Status Dates Jamal Alvarez DO Primary Care Provider Active Start: February 25, 2024 End: February 25, 2024 Jose Luis Lockhart , RN MSN ANP-C Attending Provider Act darrin Start: February 25, 2024 End: February 25, 2024 Camper Assembler Relationship Specialty Start Date End Date Jamal Alvarez DO [address] [place] [address] PCP - General Internal Medicine 12/25/23 Camper Assembler Relationship Specialty Start Date End Date AntonioJamal DO [address] [place] [address] PCP - General Internal Medicine 12/25/23 Camper Assembler Relationship Specialty Start Date End Date AntonioJamalanDO [address] [place] [address] PCP - General Internal Medicine 12/25/23 Camper Assembler Relationship Specialty Start Date End Date AntonioJamal DO [address] [place] [address] PCP - General 11/05/99 Team Status: Active Member Role Status Dates Jamal Alvarez DO Primary Care Provider Active Start: April 13, 2024 Ciro Navarro MD Emergency Provider Active Star t: April 13, 2024 Albert Palacio DO Admit Provider, Attending Provider Active Start: April 13, 2024 Team Status: Inactive Member Role Status Dates Jamal Alvarez DO Primary Care Provider Active Start: April 13, 2024 End: April 16, 2024 Ciro Navarro MD Emergency Provider Active Star t: April 13, 2024 End: April 16, 2024 lAbert Palacio DO Admit Provider Active Start: April 13, 2024 End: April 16, 2024 Renan Murguia MD Attending Provider Active St art: April 13, 2024 End: April 16, 2024 Shahnaz Freeman RN Other Provider Active Star t: April 13, 2024 End: April 16, 2024 Vic Hess DO Other Provider Active Start : April 13, 2024 End: April 16, 2024 Gilbert Cruz MD Other Provider Active Start: April 13, 2024 End: April 16, 2024 Malik Luu MD Other Provider Active Start: April 13, 2024 End: April 16, 2024 Sukhwinder uLu MD Other Provider Active St art: April [...] 2023 End: April 16, 2024 Emilee Perez SIDE STITCHER- Other Provider Active Sta rt: April 13, 2024 End: April 16, 2024 Andry Nugent DO Other Provider Active Start: April 13, 2024 End: April 16, 2024 Team Status: Active Member Role Status Dates Jamal Alvarez DO Primary Care Provider Active Start: April 16, 2024 Ciro Navarro MD Emergency Provider Active Star t: April 16, 2024 Albert Palacio DO Admit Provider Active Start: April 16, 2024 Renan Murguia MD Other Provider Active Start: April 16, 2024 Shahnaz Freeman RN Other Provider Active Star t: April 16, 2024 Vic Hess DO Other Provider Active Start : April 16, 2024 Gilbert Cruz MD Other Provider Active Start: April 16, 2024 Malik Luu MD Other Provider Active Start: April 16, 2024 Sukhwinder Luu MD Other Provider Active St art: April 16, 2024 Oleg Milton MD Other Provider Active Start: April 16, 2024 Adilene Navarro APRN Other Provider Active Start : April 16, 2024 Judit Lora MD Other Provider Active Start: 2023 Mireille Jorge MD Other Provider Active Start: April 16, 2024 Anthony Riddle MD Other Provider Active Start: 2023 Emilee Perez SIDE STITCHER-BC Other Provider Active Sta rt: April 16, [...] February 22, 2024 End: February 22, 2024 Camper Assembler Relationship Specialty Start Date End Date Jamal Alvarez DO [address] [place] [address] PCP - General Internal Medicine 12/25/23 Team Status: Inactive Member Role Status Dates Jamal Alvarez DO Primary Care Provider Active Start: April 22, 2024 End: April 22, 2024 Valdez Castro MD Attending Provider Active S tart: April 22, 2024 End: April 22, 2024 Camper Assembler Relationship Specialty Start Date End Date Jamal Alvarez DO [address] [place] [address] PCP - General Internal Medicine 12/25/23 Team Status: Inactive Member Role Status Dates Jamal Alvarez DO Primary Care Provide r, Attending Provider Active Start: February 21, 2024 End: February 21, 2024 Team Status: Inactive Member Role Status Dates Jamal Alvarez DO Primary Care Provider Active Start: April 13, 2024 End: April 16, 2024 Ciro Navarro MD Emergency Provider Active Star t: [...] 13, 2024 End: April 16, 2024 Gilbert Cruz MD Other Provider Active Start: April 13, [...] 2023 End: April 16, 2024 Emilee Perez [facility]- Other Provider Active Sta rt: April 13, 2024 End: April 16, 2024 Team Status: Active Member Role Status Dates Jamal Alvarez DO Primary Care Provider Active Start: April 16, 2024 End: April 16, 2024 Ciro Navarro MD Emergency Provider Active Star t: [...] 16, 2024 End: April 16, 2024 Gilbert Cruz MD Other Provider Active Start: April 16, 2024 End: April 16, 2024 Malik Luu MD Other Provider Active Start: April 16, 2024 End: April 16, 2024 Sukhwinder Luu MD Other Provider Active St art: April 16, 2024 End: April 16, 2024 Oleg Milton MD Other Provider Active Start: April 16, 2024 End: April 16, 2024 Adilene K Navarro , [employer]IM[employer] PAINTER Other Provider Active Start : April 16, 2024 End: April 16, 2024 Judit Lora MD Other Provider Active Start: J une 2023 End: April 16, 2024 Mireille Jorge MD Other Provider Active Start: April 16, 2024 End: April 16, 2024 Anthony Riddle MD Other Provider Active Start: J une 2023 End: April 16, 2024 Emilee Perez , SIDE STITCHER-BC Other Provider Active Sta rt: April 16, 2024 End: April 16, 2024 Andry Nugent DO Other Provider Active Start: April 16, 2024 End: April 16, 2024 Inocencio Mg MD Attending Provider Activ e Start: April 16, 2024 End: April 16, 2024 Camper Assembler Relationship Specialty Start Date End Date Jamal Alvarez DO [address] [place] [address] PCP - General Internal Medicine 12/25/23 Camper Assembler Relationship Specialty Start Date End Date Jamal Alvarez DO [address] [place] [address] PCP - General Internal Medicine 12/25/23 Camper Assembler Relationship Specialty Start Date End Date Jamal Alvarez DO [address] [place] [address] PCP - General Internal Medicine 03/13/23 Saul Abdalla DO [address] [place] [address] Referring Physician Ophthalmology 02/22/24 Ubaldo Dubose MD [address] [place] [address] Referring Physician Pulmonary Disease 02/22/24 Valdez Castro MD [address] [facility] 150 [place] [address] Referring Physician Pediatric Pulmonology 02/22/24 Flex Ramos MD [address] [place] [phone] Referring Physician Gastroenterology 02/22/24 Judit Lora MD [address] [place] [address] Referring Physician Cardiology 02/22/24 Camper Assembler Relationship Specialty Start Date End Date Jamal Alvarez DO [address] [facility] [address] [place] [address] PCP - General Internal Medicine 03/13/23 Saul Abdalla DO [address] [place] [address] Referring Physician Ophthalmology 02/22/24 Ubaldo Dubose MD [address] [place] [address] Referring Physician Pulmonary Disease 02/22/24 Valdez Castro MD [address] [facility] [address] [place] [address] Referring Physician Pediatric Pulmonology 02/22/24 Flex Ramos MD [address] [place] [phone] Referring Physician Gastroenterology 02/22/24 Judit Lora MD [address] [place] [address] Referring Physician Cardiology 02/22/24 Camper Assembler Relationship Specialty Start Date End Date Jamal Alvarez DO [address] [facility] [address] [place] [address] PCP - General Internal Medicine 03/13/23 Saul Abdalla DO [address] [place] [address] [address] [place] [address] Referring Physician Ophthalmology 02/22/24 Ubaldo Dubose MD [address] [place] [address] Referring Physician Pulmonary Disease 02/22/24 Valdez Castro MD [address] [facility] 150 [place] [address] Referring Physician Pediatric Pulmonology 02/22/24 Flex Ramos MD [address] [place] [phone] Referring Physician Gastroenterology 02/22/24 Judit Lora MD [address] [place] [address] [address] [place] [address] Referring Physician Cardiology 02/22/24 Team Status: Inactive Member Role Status Dates Jamal Alvarez DO Primary Care Provider Active Start: November 20, 2024 End: November 20, 2024 Valdez Castro MD Attending Provider Active S tart: November 20, 2024 End: November 20, 2024 Camper Assembler Relationship Specialty Start Date End Date Jamal Alvarez DO [address] [facility] [address] [place] [address] PCP - General Internal Medicine 12/25/23 Camper Assembler Relationship Specialty Start Date End Date Jamal Alvarez DO [address] [place] [address] PCP - General Internal Medicine 03/13/23 Saul Abdalla, DO [address] [place] [address] Referring Physician Ophthalmology 02/22/24 Ubaldo Dubose MD [address] [place] [address] Referring Physician Pulmonary Disease 02/22/24 Valdez Castro MD [address] [place] [address] Referring Physician Pediatric Pulmonology 02/22/24 Flex Ramos MD [address]03 [facility] [address] [place] [phone] Referring Physician Gastroenterology 02/22/24 Judit Lora MD [address] [facility] 2, [address] [place] [address] Referring Physician Cardiology 02/22/24 Camper Assembler Relationship Specialty Start Date End Date Jamal Alvarez DO [address] [place] [address] PCP - General Internal Medicine 03/13/23 Saul Abdalla, [address] [place] [address] Referring Physician Ophthalmology 02/22/24 Ubaldo Dubose MD [address] [place] [address] Referring Physician Pulmonary Disease 02/22/24 Valdez Castro MD [address] [facility] [address] [place] [address] Referring Physician Pediatric Pulmonology 02/22/24 Flex Ramos MD [address] [facility] [address] [place] [phone] Referring Physician Gastroenterology 02/22/24 Judit Lora MD [facility], [address] [place] [address] Referring Physician Cardiology 02/22/24 Team Status: Inactive Member Role Status Dates Jamal Alvarez DO Primary Care Provide r, Attending Provider Active Start: February 06, 2025 End: February 06, 2025 Valdez Castro MD Other Provider Active Start : February 06, 2025 End: February 06, 2025 Camper Assembler Relationship Specialty Start Date End Date Jamal Alvarez DO [address] [facility] [address] [place] [address] PCP - General Internal Medicine 03/13/23 Saul Abdalla DO [address] [place] [address] Referring Physician Ophthalmology 02/22/24 Ubaldo Dubose MD [address] [place] [address] Referring Physician Pulmonary Disease 02/22/24 Valdez Castro MD [address] [place] [address] Referring Physician Pediatric Pulmonology 02/22/24 Flex Ramos MD [address] [facility] [address] [place] [phone] Referring Physician Gastroenterology 02/22/24 Judit Lora MD [address] [facility] [address], [address] [place] [address] Referring Physician Cardiology 02/22/24 Camper Assembler Relationship Specialty Start Date End Date Jamal Alvarez DO [address] [place] [address] PCP - General Internal Medicine 03/13/23 Saul Abdalla DO [address] [place] [address] Referring Physician Ophthalmology 02/22/24 Ubaldo Dubose MD [address] [place] [address] Referring Physician Pulmonary Disease 02/22/24 Valdez Castro MD [address] [place] [address] Referring Physician Pediatric Pulmonology 02/22/24 Flex Ramos MD [address] [place] [address] Referring Physician Gastroenterology 02/22/24 Judit Lora MD [facility] [facility], [address] [place] [address] Referring Physician Cardiology 02/22/24 Camper Assembler Relationship Specialty Start Date End Date Jamal Alvarez DO [address] [place] [address] PCP - General Internal Medicine 03/13/23 Saul Abdalla DO [address] [place] [address] Referring Physician Ophthalmology 02/22/24 Ubaldo Dubose MD [address] [place] [address] Referring Physician Pulmonary Disease 02/22/24 Valdez Castro MD [address] [place] [address] Referring Physician Pediatric Pulmonology 02/22/24 Flex Ramos MD [address] [place] [address] Referring Physician Gastroenterology 02/22/24 Judit Lora MD [facility] [address] [place] [address] Referring Physician Cardiology 02/22/24 Team Status: Inactive Member Role Status Dates Jamal Alvarez DO Attending Provider Active St art: February 25, 2025 End: February 25, 2025 Camper Assembler Relationship Specialty Start Date End Date Jamal Alvarez DO [address] [place] [address] PCP - General Internal Medicine 03/13/23 Saul Abdalla DO [address] [place] [address] Referring Physician Ophthalmology 02/22/24 Ubaldo Dubose MD [address] [place] [address] Referring Physician Pulmonary Disease 02/22/24 Valdez Castro MD [address] [place] [address] Referring Physician Pediatric Pulmonology 02/22/24 Flex Ramos MD [address] [place], [place] [id number] Referring Physician Gastroenterology 02/22/24 Judit Lora MD 7[address] [facility] 2, [facility] [address] [place] [address] Referring Physician Cardiology 02/22/24 Team Status: Active [...] Provider Active Sta rt: March 14, 2025 Camper Assembler Relationship Specialty Start Date End Date Jamal Alvarez DO [address] [place] [address] PCP - General Internal Medicine 03/13/23 Saul Abdalla DO [address] [facility] [address] [place] [address] Referring Physician Ophthalmology 02/22/24 Ubaldo Dubose MD [address] [place] [address] Referring Physician Pulmonary Disease 02/22/24 Valdez Castro MD [address] [place] [address] Referring Physician Pediatric Pulmonology 02/22/24 Flex Ramos MD [address] [place] [address] Referring Physician Gastroenterology 02/22/24 Judit Lora MD [address] [facility] [address] [place] [address] Referring Physician Cardiology 02/22/24 Camper Assembler Relationship Specialty Start Date End Date Jamal Alvarez DO [address] [place] [address] PCP - General Internal Medicine 03/13/23 Saul Abdalla, DO [address] [place] [address] Referring Physician Ophthalmology 02/22/24 Ubaldo Dubose MD [address] [place], [place] [phone] Referring Physician Pulmonary Disease 02/22/24 Valdez Castro MD [address] [place], [place] [address] Referring Physician Pediatric Pulmonology 02/22/24 Flex Ramos MD [address] [place], [place] [address] Referring Physician Gastroenterology 02/22/24 Judit Lora MD [address] [facility] [address], [address] [place], [place] [phone] Referring Physician Cardiology 02/22/24 Camper Assembler Relationship Specialty Start Date End Date Jamal Alvarez DO [address] [facility] [address] [place] [address] PCP - General Internal Medicine 03/13/23 Saul Abdalla, DO [address] [place] [address] Referring Physician Ophthalmology 02/22/24 Ubaldo Dubose MD [address] [place] [address] Referring Physician Pulmonary Disease 02/22/24 Valdez Castro MD [address] [place] [address] Referring Physician Pediatric Pulmonology 02/22/24 Flex Ramos MD [address] [place] [address] Referring Physician Gastroenterology 02/22/24 Judit Lora MD [address] [facility] [address], [address] [place] [address] Referring Physician Cardiology 02/22/24 Team Status: Inactive Member Role Status Dates Jamal Alvarez DO Primary Care Provider Active Start: February 06, 2025 End: February 06, 2025 Jamal Alvarez DO Attending Provider Active St art: February 06, 2025 End: February 06, 2025 Valdez Castro MD Other Provider Active Start : February 06, 2025 End: February 06, 2025 Team Status: Active Member Role Status Dates Jamal Alvarez DO Primary Care Provider Active Start: May 04, 2025 Flex Ramos MD Attending Provider Active Start: May 04, 2025 Flex Ramos MD Other Provider Active Start: Apr Team Status: Inactive Member Role Status Dates Jamal Alvarez DO Primary Care Provider Active Start: May 07, 2025 End: May 07, 2025 Jamal Alvarez DO Attending Provider Active St art: May 07, 2025 End: May 07, 2025 Camper Assembler Relationship Specialty Start Date End Date Jamal Alvarez DO [address] [place] [address] PCP - General Internal Medicine 03/13/23 Saul Abdalla DO [address] [place] [address] Referring Physician Ophthalmology 02/22/24 Ubaldo Dubose MD [address] [place] [address] Referring Physician Pulmonary Disease 02/22/24 Valdez Castro MD [address] [place] [address] Referring Physician Pediatric Pulmonology 02/22/24 Flex Ramos MD [address] [facility] [address] [place] [address] Referring Physician Gastroenterology 02/22/24 Judit Lora MD [address] [facility] [address], [address] [place] [address] Referring Physician Cardiology 02/22/24 Camper Assembler Relationship Specialty Start Date End Date Jamal Alvarez DO [address] [facility] [address] [place] [address] PCP - General Internal Medicine 03/13/23 Saul Abdalla DO [address] [place] [address] Referring Physician Ophthalmology 02/22/24 Ubaldo Dubose MD [address] [place] [address] Referring Physician Pulmonary Disease 02/22/24 Valdez Castro MD [address] [place] [address] Referring Physician Pediatric Pulmonology 02/22/24 Flex Ramos MD [address] [place] [address] Referring Physician Gastroenterology 02/22/24 Judit Lora MD [address] [facility] 2, [address] [place] [address] Referring Physician Cardiology 02/22/24 Camper Assembler Relationship Specialty Start Date End Date Jamal Alvarez DO [address] [place] [address] PCP - General Internal Medicine 03/13/23 Saul Abdalla DO [address] [place], [place] [address] [address] [place] [address] Referring Physician Ophthalmology 02/22/24 Ubaldo Dubose MD [address] [place] [address] Referring Physician Pulmonary Disease 02/22/24 Valdez Castro MD [address] [place] [address] Referring Physician Pediatric Pulmonology 02/22/24 Flex Ramos MD [address] [place] [address] Referring Physician Gastroenterology 02/22/24 Judit Lora MD [address] [facility] 2, [address] [place] [address] Referring Physician Cardiology 02/22/24 Camper Assembler Relationship Specialty Start Date End Date Vimal Burton MD [address] [place] [address] PCP - General Internal Medicine 05/26/25 Saul Abdalla DO [address] [place] [address] Referring Physician Ophthalmology 02/22/24 Ubaldo Dubose MD [address] [place] [address] Referring Physician Pulmonary Disease 02/22/24 Valdez Castro MD [address] [place], [place] [id number] Referring Physician Pediatric Pulmonology 02/22/24 Flex Ramos MD [address] [place], [place] [id number] Referring Physician Gastroenterology 02/22/24 Judit Lora MD [address] [facility] 2, [address] [place] [address] Referring Physician Cardiology 02/22/24 Team Status: Inactive Member Role Status Dates Jamal Alvarez DO Primary Care Provider Active Start: May 28, 2025 End: May 28, 2025 Flex Ramos MD Attending Provider Active Start: May 28, 2025 End: May 28, 2025 Camper Assembler Relationship Specialty Start Date End Date Jamal Alvarez DO [address] [place] [address] PCP - General Internal Medicine 12/25/23 Camper Assembler Relationship Specialty Start Date End Date Jamal Alvarez DO [address] [place] [address] PCP - General Internal Medicine 12/25/23 06/09/25 Camper Assembler Relationship Specialty Start Date End Date Vimal Burton MD [address] [place] [address] PCP - General Internal Medicine 06/10/25 Jose Luis Lockhart APRN [address] [place] [address] Family Medicine 06/16/25 Camper Assembler Relationship Specialty Start Date End Date Vimal Burton MD [address] [place] [address] PCP - General Internal Medicine 05/26/25 Saul Abdalla DO [address] [place] [address] Referring Physician Ophthalmology 02/22/24 Ubaldo Dubose MD [address] [place] [address] Referring Physician Pulmonary Disease 02/22/24 Valdez Castro MD [address] [place] [address] Referring Physician Pediatric Pulmonology 02/22/24 Flex Ramos MD [address] [place] [address] Referring Physician Gastroenterology 02/22/24 Judit Lora MD [address] [facility] [address] [place] [address] Referring Physician Cardiology 02/22/24 Camper Assembler Relationship Specialty Start Date End Date Vimal Burton MD [address] [place] [address] PCP - General Internal Medicine 06/10/25 Jose Luis Lockhart APRN [address] [place] [address] Family Medicine 06/16/25 Camper Assembler Relationship Specialty Start Date End Date Vimal Burton MD [address] [place] [address] PCP - General Internal Medicine 06/10/25 Jose Luis Lockhart APRN [address] [place] [address] Family Medicine 06/16/25 Camper Assembler Relationship Specialty Start Date End Date Vimal Burton MD [address] [place] [address] PCP - General Internal Medicine 06/10/25 Jose Luis Lockhart APRN [address] [place] [address] Family Medicine 06/16/25 Camper Assembler Relationship Specialty Start Date End Date Vimal Burton MD [address] [place] [address] PCP - General Internal Medicine 06/10/25 Jose Luis Lockhart, ROSELYN [address] [place] [address] Family Medicine 06/16/25 Reason for Visit (unrecogniz ed section and content) Reason Comments Spirometry Specialty Diagnoses / Procedures Referred By Contac t Referred To [facility] Diagnoses ILD (interstitial lung disease) ([facility]) Shortness of breath Procedures SPIROMETRY WITH DILATOR IF OBSTRUCTED BRNCDILAT RSPSE SPMTRY PRE&POST-BRNCDILAT ADMN Dee Leal, ANIMATED CARTOONS PAINTER.MORGUE TECHNICIAN [address] [address] Respiratory [address] [place] [address] Referral ID Status Reason Start Date Expiration Date V isits Requested Visits Authorized [id number] Closed Auto-Generate d Referral 12/11/2023 01/09/2025 1 1 Specialty Diagnoses / Procedures Referred By Contac t Referred To Contact [facility] Diagnoses ILD (interstitial lung disease) ([facility]) Shortness of breath Procedures LUNG DIFFUSION CAPACITY (DLCO) DIFFUSING CAPACITY Dee Leal, ANIMATED CARTOONS PAINTER.MORGUE TECHNICIAN [address] [address] Referral ID Status Reason Start Date Expiration Date V isits Requested Visits Authorized [id number] Closed Auto-Generate d Referral 12/11/2023 01/09/2025 1 1 Reason Comments New Reason Comments Received Outside Medical Records Reason Comments Home nebulizer order Reason Comments Appointment Reason Comments Follow Up Reason Comments Establish Care Sob, fatigue,weaknes s Specialty Diagnoses / Procedures Referred By Contac t Referred To Contact Diagnoses Shortness of breath Procedures ECG 12 Lead Judit Lora MD [address] [facility] [address] [place] [address] Referral ID Status Reason Start Date Expiration Date V isits Requested Visits Authorized [id number] Authorized 03/10/2024 03/10/2025 1 1 Reason Comments Future Appointment NEW PT, [place], ANY (ST[place] JI? - PT PREF [place]) Specialty Diagnoses / Procedures Referred By Contac t Referred To [facility] Diagnoses Bronchiectasis without complication (HCC) Procedures SPIROMETRY BASELINE ONLY SPMTRY W/VC EXPIRATORY MIRIAM W/WO MXML VOL VNTJ Ubaldo Dubose MD [address] [place] [address] [address] Ruby [address] [place] [address] Referral ID Status Reason Start Date Expiration Date V isits Requested Visits Authorized [id number] Closed Auto-Generate d Referral 12/28/2023 01/26/2025 1 1 Specialty Diagnoses / Procedures Referred By Contac t Referred To Contact [facility] Diagnoses Bronchiectasis without complication (HCC) Procedures LUNG DIFFUSION CAPACITY (DLCO) DIFFUSING CAPACITY Ubaldo Dubose MD [address] [place] [id number] Respiratory Ruby [address] [place], [place] [id number] Referral ID Status Reason Start Date Expiration Date V isits Requested Visits Authorized [id number] Closed Auto-Generate d Referral 12/28/2023 01/26/2025 1 1 Reason Comments Cough Reason Comments Certifcate of Medical Necessity Reason Comments Radiology [place] Specialty Diagnoses / Procedures Referred By Contac t Referred To Contact CT IMAGING Diagnoses Interstitial pulmonary disease (HCC) Procedures CT CHEST WO IVCON DIAGNOSTIC COMPUTED TOMOGRAPHY THORAX W/O CNTRST Dee Leal, ROSELYN.MORGUE TECHNICIAN [address] [place] [id number] Imaging [facility] Referral ID Status Reason Start Date Expiration Date V isits Requested Visits Authorized [id number] Closed Auto-Generate d Referral 12/11/2023 01/09/2025 1 [...] month follow up Pt is being seen tosurinder reese for her 6 month follow up and managment of her chronic conditions. Pt had lab work done in preparations for todays visit, results and recommendations will be reviewed with them. Reason Comments Hospital Follow-up Pt is being seen tosurinder ay to follow up on her stay at [facility] for acute bronchiectasis exacerbation due to human metapneumovirus from 03/14-03/15. Reason Comments Ear Problem CT [facility] 05/03/25 Reason Comments Hospital Follow-up Reason Comments Abdominal Pain Diarrhea Reason Onset Date Comments Refill Request 05/29/2025 Reason Comments Establish Care Gallbladder, had CT at [facility] in [place] Reason Comments Results CT abdomen/pelvis in chart. Back Pain Xray of back done 04/07 in chart. Pt is still complaining of back pain of middle to lower back. Extremity Weakness Left leg keeps wanti ng to go out on her and has the feeling of falling asleep Reason Comments Preparations For Surgery PACC Reason Comments Ear Problem Reason Comments Patient Question Appointment FOR RECORDS PERTAINING TO PATIENTS WHO ARE [...] BE BASED ON THE PRIMARY CLINICAL RECORDS. [employer] provides no warranty or guarantee of the accuracy or completeness of information in this document.
--- NOTE | 2025-07-16 22:26 | ECG_ITS ---
[facility] [place] Test Date: 2025-07-16 Pat Name: NAT REYNAGA Department: Room: - Gender: Female Medical Records Technician: : 1945 Requested By: [id number] Order Number: [id number] Reading MD: TALIA GODINEZ Measurements Intervals [place] Rate: 69 P: 60 NV: 162 QRS: 88 QRSD: 90 T: 1 QT: 402 QTc: 421 Interpretive Statements 1100 Sinus rhythm 2420 RSR (QR) in lead V1/V2, consistent with right ventricular conduction delay 8102 Low QRS voltage in chest leads 9130 borderline ECG Compared to ECG 02/22/2024 18:40:46 No significant changes Electronically Signed On 07-20-2025 16:39:40 EDT by TALIA GODINEZ
--- NOTE | 2025-07-16 22:28 | ED.GENADUL1 ---
HPI HPI - General Adult General Chief complaint: Abdominal Pain Stated complaint: ABDOMINAL PAIN, VOMITING Time Seen by Provider: 07/16/25 21:57 Source: patient Mode of arrival: walk-in Limitations: no limitations History of Present Illness HPI narrative: 80-year-old female presents to the emergency department for abdominal pain and nausea and vomiting. This started about an hour ago. Most of the history is obtained from the patient's daughter who accompanies her. The patient has dementia. The patient cannot give any accurate history. No hematemesis. No fever or trauma. Related Data Home Medications ?Medication ?Instructions ?Recorded ?Confirmed calcium phosphate,dibasic 77 1 tab PO DAILY 02/22/24 03/06/24 mg-vitamin D3 400 unit tablet clopidogrel 75 mg tablet 75 mg PO DAILY 02/22/24 03/06/24 ibandronate 150 mg tablet 150 mg PO .monthly 02/22/24 03/06/24 levothyroxine 50 mcg tablet 50 mcg PO DAILY 02/22/24 03/06/24 liothyronine 5 mcg tablet 5 mcg PO BID 02/22/24 03/06/24 omeprazole 40 mg capsule,delayed 40 mg PO DAILY 02/22/24 03/06/24 release oxybutynin chloride 5 mg 5 mg PO BEDTIME 02/22/24 03/06/24 tablet,extended release 24 hr simvastatin 20 mg tablet 20 mg PO DAILY 02/22/24 03/06/24 sodium chloride 3 % for 2 ml inhalation BID PRN secretions 02/23/24 03/06/24 nebulization Previous Rx's ?Medication ?Instructions ?Recorded ondansetron 4 mg disintegrating 4 mg PO Q6H PRN nausea and 07/17/25 tablet vomiting #20 tabs Allergies Allergy/AdvReac Type Severity Reaction Status Date / Time codeine Allergy Unknown Unknown Verified 05/03/25 22:29 Penicillins Allergy Unknown Unknown Verified 05/03/25 22:29 Sulfa (Sulfonamide Allergy Unknown Verified 05/03/25 22:29 Antibiotics) acetaminophen (From AdvReac Unknown Unknown Verified 05/03/25 22:29 Darvocet-N) propoxyphene (From AdvReac Unknown Unknown Verified 05/03/25 22:29 Darvocet-N) Opioid HPI Opioid Management Most Recent Opioid Data: Last Pain Scale 0 02/23/24, 16:40 Last ORT Total Score 0 02/22/24, 22:05 Last ORT Risk Category Low Risk 02/22/24, 22:05 Review of Systems ROS Narrative A ten point review of systems is negative except as noted above. [facility] Medical History (Updated 07/17/25 @ 02:29 by Ike Soto MD) Diabetes ?E11.9 - Type 2 diabetes mellitus without complications (ICD-10) High cholesterol ?E78.00 - Pure hypercholesterolemia, unspecified (ICD-10) Fracture, humerus ?S42.309A - Unspecified fracture of shaft of humerus, unspecified arm, initial encounter for closed fracture (ICD-10) Osteoporosis ?M81.0 - Age-related osteoporosis without current pathological fracture (ICD-10) GERD (gastroesophageal reflux disease) ?K21.9 - Gastro-esophageal reflux disease without esophagitis (ICD-10) 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 - Other specified mental disorders due to known physiological condition (ICD-10) ?S06.9X0S - Unspecified intracranial injury without loss of consciousness, sequela (ICD-10) Hypothyroidism (acquired) ?E03.9 - Hypothyroidism, unspecified (ICD-10) Surgical History (Updated 04/07/24 @ 11:03 by Lillian Ramirez) History of cataract extraction with lens replacement H/O: section ?Z98.891 - History of uterine scar from previous surgery (ICD-10) H/O tubal ligation ?Z98.51 - Tubal ligation status (ICD-10) Family History (Updated 03/03/24 @ 10:11 by Lillian Patel) Other Alzheimer disease Family history of diabetes mellitus Family history of myocardial infarction Family history of stroke Social History (Updated 03/03/24 @ 09:57 by Lillian Patel) Within the past year, how often did you have a drink containing alcohol: never Score interpretation: A score less than 3 is consistent with normal alcohol consumption. Smoking status: Former smoker Non-prescribed substance use: denies use Highest level of school completed/degree received: high school graduate Exam Narrative Exam Narrative: Nurses note and vital signs reviewed and patient is not hypoxic. General: The patient in no acute distress Skin: Warm, dry, no pallor noted. There is no rash noted. Head: Normocephalic, atraumatic Eye: Normal conjunctiva, no drainage Ears, Nose, Mouth, and Throat: oral mucosa is moist. Nares patent. Cardiovascular: Regular Rate and Rhythm Respiratory: Patient is in no distress, no accessory muscle use, lungs are clear to auscultation, no wheezing, rales or rhonchi Back: non-tender GI: Soft and nondistended. No apparent tenderness Musculoskeletal: The patient has no evidence of calf tenderness, no pitting edema, symmetrical pulses noted bilaterally Neurological: Awake and alert Psychiatric: Cooperative Constitutional Vital Signs, click to edit/add: Last Vital Signs Temp 97.6 F 07/16/25 23:50 Pulse 72 07/17/25 01:34 Resp 16 07/17/25 01:34 BP 124/60 07/17/25 01:34 Pulse Ox 99 07/17/25 01:34 O2 Del Method Room Air 07/17/25 01:34 Course Vital Signs Vital signs: Vital Signs Temperature 98.2 F 07/16/25 21:59 Pulse Rate 71 07/16/25 21:59 Respiratory Rate 18 07/16/25 21:59 Blood Pressure 123/70 07/16/25 21:59 Pulse Oximetry 98 07/16/25 21:59 Oxygen Delivery Method Room Air 07/16/25 21:59 Temperature 97.6 F 07/16/25 23:50 Pulse Rate 72 07/17/25 01:34 Respiratory Rate 16 07/17/25 01:34 Blood Pressure 124/60 07/17/25 01:34 Pulse Oximetry 99 07/17/25 01:34 Oxygen Delivery Method Room Air 07/17/25 01:34 Medical Decision Making MDM Narrative Medical decision making narrative: Workup including CT of the abdomen is negative. The patient seems to be feeling improved and is discharged home. Treatment diagnosis and follow-up were discussed with her daughter. Differential Diagnosis Differential Diagnosis: Bowel obstruction, constipation, food poisoning, nausea and vomiting Lab Data Lab results reviewed: Yes I reviewed the patient's lab results Labs: Lab Results 07/16/25 Range/Units 22:10 WBC 6.7 (4.0-11.0) 10^3/uL RBC 4.11 L (4.20-5.40) 10^6/uL Hgb 12.6 (12.0-16.0) g/dL Hct 37.7 (36.0-48.0) % MCV 91.7 (81.0-99.0) fL MCH 30.7 (26.7-34.0) pg MCHC 33.4 (29.9-35.2) g/dL RDW 11.9 (11.0-15.0) % Plt Count 236 (150-450) 10^3/uL MPV 9.7 (9.5-13.5) fL Neut % (Auto) 54.9 (43.0-75.0) % Lymph % (Auto) 35.1 (20.5-60.0) % Lake % (Auto) 6.5 (1.7-12.0) % Eos % (Auto) 2.8 (0.9-7.0) % Baso % (Auto) 0.6 (0.2-2.0) % Neut # (Auto) 3.7 (1.4-6.5) 10^3/uL Lymph # (Auto) 2.4 (1.2-3.8) 10^3/uL Lake # (Auto) 0.4 (0.3-0.8) 10^3/uL Eos # (Auto) 0.2 (0.0-0.7) 10^3/uL Baso # (Auto) 0.0 (0.0-0.1) 10^3/uL Abs Immat Gran (auto) 0.01 (0.00-0.03) 10^3/uL Imm/Tot Granulo (auto) 0.1 (0.0-0.5) % Sodium 141 (136-145) mmol/L Potassium 3.9 (3.5-5.1) mmol/L Chloride 103 (98-107) mmol/L Carbon Dioxide 30.8 (21.0-32.0) mmol/L Anion Gap 11.1 BUN 19.0 H (7.0-18.0) mg/dL Creatinine 0.67 (0.55-1.02) mg/dL Est GFR ( Amer) >60 (>=60 mL/min/1.73m^2) Est GFR (Non-Af Amer) >60 (>=60 mL/min/1.73m^2) BUN/Creatinine Ratio 28.4 Glucose 120 H (74-106) mg/dL Calcium 9.1 (8.5-10.1) mg/dL Total Bilirubin 0.2 (0.2-1.0) mg/dL Direct Bilirubin 0.1 (0.0-0.2) mg/dL AST 20 (15-37) U/L ALT 27 (14-59) U/L Alkaline Phosphatase 54 (46-116) U/L Total Protein 7.4 (6.4-8.2) g/dL Albumin 3.5 (3.4-5.0) g/dL Globulin 3.9 g/dL Albumin/Globulin Ratio 0.9 Amylase 86 (25-115) U/L Lipase 21.0 (16.0-77.0) U/L Imaging Data CT scan - abdomen: Radiologist's impression: Mild left colon and sigmoid colon diverticulosis, cholelithiasis, no pancreatitis, no cholecystitis, no free fluid or free air, no abscess or hematoma ECG Data Attestation: I personally reviewed and interpreted this ECG as follows: (EKG on my interpretation shows sinus rhythm without acute change and a rate of 69.) Discharge Plan Discharge Chief Complaint: Abdominal Pain Clinical Impression: Nausea and vomiting Patient Disposition: Home, Self-Care Time of Disposition Decision: 02:29 Condition: Good Mode of Transportation: Private Vehicle Prescriptions / Home Meds: New ondansetron 4 mg tablet,disintegrating 4 mg PO Q6H PRN (Reason: nausea and vomiting) Qty: 20 0RF No Action clopidogrel 75 mg tablet 75 mg PO DAILY ibandronate 150 mg tablet 150 mg PO .monthly levothyroxine 50 mcg tablet 50 mcg PO DAILY Patient Comments: pt takes it everyday EXCEPT Sunday liothyronine 5 mcg tablet 5 mcg PO BID oxybutynin chloride 5 mg tablet extended release 24hr 5 mg PO BEDTIME simvastatin 20 mg tablet 20 mg PO DAILY omeprazole 40 mg capsule,delayed release(DR/EC) 40 mg PO DAILY calcium phos,dibas-vitamin D3 77-400 mg-unit tablet 1 tab PO DAILY sodium chloride 3 % solution for nebulization 2 ml INHALATION BID PRN (Reason: secretions) Print Language: South African Instructions: Acute Nausea and Vomiting (ED) Referrals: Physician,Non-Staff, MD [Primary Care Provider] - 1 week
[2025-07-16 22:35] LABS: Hematocrit 37.7 % (36.0-48.0); Hemoglobin 12.6 g/dL (12.0-16.0); Immature Granulocytes Abs Auto 0.01 10^3/uL (0.00-0.03); Immature Granulocytes Pct Auto 0.1 % (0.0-0.5); Lymphocytes Absolute Auto 2.4 10^3/uL (1.2-3.8); Mean Corpuscular HGB Conc 33.4 g/dL (29.9-35.2); Mean Corpuscular Hemoglobin 30.7 pg (26.7-34.0); Mean Corpuscular Volume 91.7 fL (81.0-99.0); Platelet Count 236 10^3/uL (150-450); Red Blood Count 4.11 10^6/uL (4.20-5.40); White Blood Count 6.7 10^3/uL (4.0-11.0)
[2025-07-16] MEDS: 0.9 % SODIUM CHLORIDE 1,000 ML 1000 ML IV (22:37)
[2025-07-16 22:46] LABS: Alanine Aminotransferase 27 U/L (14-59); Albumin Globulin Ratio 0.9; Albumin Level 3.5 g/dL (3.4-5.0); Alkaline Phosphatase 54 U/L (46-116); Amylase 86 U/L (25-115); Anion Gap 11.1; Aspartate Amino Transferase 20 U/L (15-37); Blood Urea Nitrogen 19.0 mg/dL (7.0-18.0); Calcium 9.1 mg/dL (8.5-10.1); Carbon Dioxide 30.8 mmol/L (21.0-32.0); Chloride 103 mmol/L (98-107); Estimated GFR (African America >60 (>=60 mL/min/1.73m^2); Estimated GFR (Non-African Ame >60 (>=60 mL/min/1.73m^2); Globulin 3.9 g/dL; Glucose 120 mg/dL (74-106); Lipase 21.0 U/L (16.0-77.0); Potassium 3.9 mmol/L (3.5-5.1); Sodium 141 mmol/L (136-145); Total Protein 7.4 g/dL (6.4-8.2)
[2025-07-16 23:50] VITALS: BP 124/80; PULSE 70; TEMP 36.4; O2SAT 95
[2025-07-17 01:34] VITALS: BP 124/60; PULSE 72; O2SAT 99
== END 2025-07-17 03:02 | disposition home or self-care (01) ==
PROVIDERS: Emergency Provider Emergency Medicine
DX: R11.2 Nausea with vomiting, unspecified (principal); R10.9 Unspecified abdominal pain; F03.90 Unspecified dementia, unspecified severity, without behavioral disturbance, psychotic disturbance, mood disturbance, and anxiety; Z87.891 Personal history of nicotine dependence
CPT/HCPCS: 36415; 74177; 80048; 80076; 82150; 83690; 85025; 93005; 96374; 99285; J2405; Q9967

== ENCOUNTER 2025-07-29 16:34 | Emergency (ER) | payer MEDICARE, SELFPAY ==
[2025-07-29 16:41] VITALS: BP 135/67; PULSE 79; TEMP 36.8; O2SAT 97; BMI 25.2
--- NOTE | 2025-07-29 17:01 | XR_ITS ---
[address] [address] Patient Name: NAT REYNAGA MRN: [id number] date: 1945 Sex: F Assigned Patient Location: ER Current Patient Location: ED.MAIN Accession/Order Number: [id number] Exam Date: 07/29/2025 17:42 Report Date: 07/29/2025 18:15 At the request of: KESHAWN BARNETT MD Procedure: XR abdomen 1V Single x-ray view abdomen HISTORY: Possible constipation, abdominal pain COMPARISON: CT abdomen pelvis 07/17/2025 FINDINGS: Moderate stool burden. Nonspecific nonobstructive small bowel gas pattern. No radiopaque calcifications overlying the renal shadows or the psoas musculature. Degenerative changes of the lumbar spine. XR/XR abdomen 1V IMPRESSION: Moderate stool burden may suggest fecal impaction and/or constipation. Impression dictated by: Ludwig Dc M.D. 07/29/2025 6:15 PM Dictation Location: [place] [address] Electronically authenticated by: [id number] Y Date: 07/29/2025 18:15
--- NOTE | 2025-07-29 17:01 | ED.GENADUL1 ---
HPI HPI - General Adult General Chief complaint: Abdominal Pain Stated complaint: CONSTIPATED/BELLY PAIN/ RECENT GALL BLADDER SURGER Time Seen by Provider: 07/29/25 16:45 Source: patient Mode of arrival: walk-in Limitations: altered mental status Limitations comment: dementia History of Present Illness HPI narrative: 80-year-old female presents to the emergency department with her daughter for constipation. The patient's daughter gives the history. 5 days ago she had laparoscopic cholecystectomy in [place]. She has not been taking any pain medication at home but he also has not had a bowel movement and her appetite has been good. No vomiting or fever. The patient has dementia and is unable to give a good history. Related Data Home Medications ?Medication ?Instructions ?Recorded ?Confirmed calcium phosphate,dibasic 77 1 tab PO DAILY 02/22/24 07/29/25 mg-vitamin D3 400 unit tablet clopidogrel 75 mg tablet 75 mg PO DAILY 02/22/24 07/29/25 ibandronate 150 mg tablet 150 mg PO .monthly 02/22/24 07/29/25 levothyroxine 50 mcg tablet 50 mcg PO DAILY 02/22/24 07/29/25 liothyronine 5 mcg tablet 5 mcg PO BID 02/22/24 07/29/25 omeprazole 40 mg capsule,delayed 40 mg PO .ACB 02/22/24 07/29/25 release oxybutynin chloride 5 mg 5 mg PO BEDTIME 02/22/24 07/29/25 tablet,extended release 24 hr simvastatin 20 mg tablet 20 mg PO .QHS 02/22/24 07/29/25 sodium chloride 3 % for 2 ml inhalation BID PRN secretions 02/23/24 03/06/24 nebulization albuterol sulfate 90 mcg/actuation 2 puff inhalation Q4H PRN 07/29/25 07/29/25 aerosol inhaler shortness of breath or wheezing brexpiprazole 1 mg tablet (Rexulti) 1 mg PO .QD 07/29/25 07/29/25 cannabidiol 100 mg/mL oral 200 mg PO BID 07/29/25 07/29/25 solution (Epidiolex) estradiol 0.01% (0.1 mg/gram) 1 g vaginal .TWI 07/29/25 07/29/25 vaginal cream furosemide 20 mg tablet 10 mg PO QAM 07/29/25 07/29/25 semaglutide 1 mg/dose (4 mg/3 mL) 1 mg subcut .WEEKLY 07/29/25 07/29/25 subcutaneous pen injector (Ozempic) tramadol 50 mg tablet 25 mg PO Q12H PRN pain 07/29/25 07/29/25 Previous Rx's ?Medication ?Instructions ?Recorded ondansetron 4 mg disintegrating 4 mg PO Q6H PRN nausea and 07/17/25 tablet vomiting #20 tabs Allergies Allergy/AdvReac Type Severity Reaction Status Date / Time codeine Allergy Unknown Unknown Verified 07/29/25 16:47 Penicillins Allergy Unknown Unknown Verified 07/29/25 16:47 Sulfa (Sulfonamide Allergy Unknown Verified 07/29/25 16:47 Antibiotics) acetaminophen (From AdvReac Unknown Unknown Verified 07/29/25 16:47 Darvocet-N) propoxyphene (From AdvReac Unknown Unknown Verified 07/29/25 16:47 Darvocet-N) Opioid HPI Opioid Management Most Recent Opioid Data: Last Pain Scale 0 02/23/24, 16:40 Last ORT Total Score 0 02/22/24, 22:05 Last ORT Risk Category Low Risk 02/22/24, 22:05 Review of Systems ROS Narrative Not obtainable, dementia [facility] Medical History (Updated 07/29/25 @ 18:44 by Ike Soto MD) Diabetes ?E11.9 - Type 2 diabetes mellitus without complications (ICD-10) High cholesterol ?E78.00 - Pure hypercholesterolemia, unspecified (ICD-10) Fracture, humerus ?S42.309A - Unspecified fracture of shaft of humerus, unspecified arm, initial encounter for closed fracture (ICD-10) Osteoporosis ?M81.0 - Age-related osteoporosis without current pathological fracture (ICD-10) GERD (gastroesophageal reflux disease) ?K21.9 - Gastro-esophageal reflux disease without esophagitis (ICD-10) 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 - Other specified mental disorders due to known physiological condition (ICD-10) ?S06.9X0S - Unspecified intracranial injury without loss of consciousness, sequela (ICD-10) Hypothyroidism (acquired) ?E03.9 - Hypothyroidism, unspecified (ICD-10) Surgical History (Updated 04/07/24 @ 11:03 by Lillian Ramirez) History of cataract extraction with lens replacement H/O: section ?Z98.891 - History of uterine scar from previous surgery (ICD-10) H/O tubal ligation ?Z98.51 - Tubal ligation status (ICD-10) Family History (Updated 03/03/24 @ 10:11 by Lillian Patel) Other Alzheimer disease Family history of diabetes mellitus Family history of myocardial infarction Family history of stroke Social History (Updated 03/03/24 @ 09:57 by Lillian Patel) Within the past year, how often did you have a drink containing alcohol: never Score interpretation: A score less than 3 is consistent with normal alcohol consumption. Smoking status: Former smoker Non-prescribed substance use: denies use Highest level of school completed/degree received: high school graduate Exam Narrative Exam Narrative: Nurses note and vital signs reviewed and patient is not hypoxic. General:The patient appears well and in no apparent distress.Patient is resting comfortably on cart. Skin:Warm, dry, no pallor noted.There is no rash noted. Head:Normocephalic, atraumatic Eye: Normal conjunctiva, no drainage Ears, Nose, Mouth, and Throat: oral mucosa is moist. Nares patent. Cardiovascular:Regular Rate and Rhythm Respiratory:Patient is in no distress, no accessory muscle use, lungs are clear to auscultation, no wheezing, rales or rhonchi Back:non-tender, no CVA tenderness bilaterally to percussion. GI: Soft and nondistended. Laparoscopic cholecystectomy surgical wounds are healing well. Minimal tenderness in the lower abdomen. Musculoskeletal: The patient has no evidence of calf tenderness, no pitting edema, symmetrical pulses noted bilaterally Neurological: Awake and alert. She knows her name. She cannot tell me the year or where she is Psychiatric:Cooperative Constitutional Vital Signs, click to edit/add: Last Vital Signs Temp 98.2 F 07/29/25 16:41 Pulse 79 07/29/25 16:41 Resp 18 07/29/25 16:41 BP 135/67 07/29/25 16:41 Pulse Ox 97 07/29/25 16:41 O2 Del Method Room Air 07/29/25 16:41 Course Vital Signs Vital signs: Vital Signs Temperature 98.2 F 07/29/25 16:41 Pulse Rate 79 07/29/25 16:41 Respiratory Rate 18 07/29/25 16:41 Blood Pressure 135/67 07/29/25 16:41 Pulse Oximetry 97 07/29/25 16:41 Oxygen Delivery Method Room Air 07/29/25 16:41 Temperature 98.2 F 07/29/25 16:41 Pulse Rate 79 07/29/25 16:41 Respiratory Rate 18 07/29/25 16:41 Blood Pressure 135/67 07/29/25 16:41 Pulse Oximetry 97 07/29/25 16:41 Oxygen Delivery Method Room Air 07/29/25 16:41 Medical Decision Making MDM Narrative Medical decision making narrative: The patient is found to be constipated. An enema was ordered but the patient was combative, she has dementia. Our nursing staff could not accomplish the enema administration. The daughter requested that she herself give a fleets enema and this was done and daughter reported that a small amount of stool came out. The patient is sent home with a bottle of magnesium citrate and was given Dulcolax here. Treatment diagnosis and follow-up were discussed with the patient's daughter. Differential Diagnosis Differential Diagnosis: Constipation Imaging Data Abdominal x-ray: Radiologist's impression: ITS Impressions Abdomen X-Ray 07/29/25 17:01 IMPRESSION: Moderate stool burden may suggest fecal impaction and/or constipation. Impression dictated by: Ludwig Dc M.D. 07/29/2025 6:15 PM Dictation Location: [place] [id number] Electronically authenticated by: [id number] Y Date: 07/29/2025 18:15 Discharge Plan Discharge Chief Complaint: Abdominal Pain Clinical Impression: Constipation Patient Disposition: Home, Self-Care Time of Disposition Decision: 18:44 Condition: Good Mode of Transportation: Private Vehicle Prescriptions / Home Meds: No Action tramadol 50 mg tablet 25 mg PO Q12H PRN (Reason: pain) furosemide 20 mg tablet 10 mg PO QAM estradiol 0.01 % (0.1 mg/gram) cream 1 g VAGINAL .TWI albuterol sulfate 90 mcg/actuation HFA aerosol inhaler 2 puff INHALATION Q4H PRN (Reason: shortness of breath or wheezing) Rexulti 1 mg tablet 1 mg PO .QD Epidiolex 100 mg/mL solution 200 mg PO BID Ozempic 1 mg/dose (4 mg/3 mL) pen injector 1 mg SUBCUT .WEEKLY clopidogrel 75 mg tablet 75 mg PO DAILY ibandronate 150 mg tablet 150 mg PO .monthly levothyroxine 50 mcg tablet 50 mcg PO DAILY Patient Comments: pt takes it everyday EXCEPT Sunday liothyronine 5 mcg tablet 5 mcg PO BID oxybutynin chloride 5 mg tablet extended release 24hr 5 mg PO BEDTIME simvastatin 20 mg tablet 20 mg PO .QHS omeprazole 40 mg capsule,delayed release(DR/EC) 40 mg PO .ACB calcium phos,dibas-vitamin D3 77-400 mg-unit tablet 1 tab PO DAILY sodium chloride 3 % solution for nebulization 2 ml INHALATION BID PRN (Reason: secretions) ondansetron 4 mg tablet,disintegrating 4 mg PO Q6H PRN (Reason: nausea and vomiting) Qty: 20 0RF Print Language: Thai Instructions: Constipation (ED) Additional Instructions: [id number] MiraLAX for constipation Referrals: Physician,Non-Staff, MD [Primary Care Provider] - 1 week
--- OUTSIDE RECORDS SUMMARY | 2025-07-29 17:21 | XMS_ITS | CCD ---
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 Name Role Phone Jamal Alvarez Unavailable Unavailable Unavailable Kostas Vance DO Primary Care Provider Kostas Vance DO Primary Care Provider [phone] DO Jamal Alvarez Primary Care Provider DO Hermes Kennedy Attending Provider [phone] DIAB ., BRUCE Admitting Unavailable DIAB ., [...] Care Provider MD Valdez Castro Attending Provider [phone] DO Jamal Alvarez Attending Provider Jamal Alvarez DO Primary Care Provider DO Jamal Alvarez Primary Care Provider DO Jamal Alvarez Attending Provider CORNELIUS Pearce Attending Provider DO Jamal Alvarez Primary Care Provider DO Jamal Alvarez Attending Provider [phone] TEAGAN Lockhart Attending Provider [phone] Jamal Alvarez DO Primary Care Provider Jamal Alvarez DO Primary Care Provider MD Simone Navarro Emergency Provider DO Albert Palacio Admit Provider [phone] DO Albert Palacio Attending Provider MD Renan Murguia Attending Provider TEAGAN Freeman Other Provider Unavailable DO Vic Hess Other Provider MD Gilbert Cruz Other Provider MD Malik Luu Other Provider MD Sukhwinder Luu Other Provider [phone] MD Oleg Milton Other Provider ROSELYN Navarro Other Provider MD Judit Lora Other Provider MD Mireille Jorge Other Provider MD Anthony Riddle Other Provider Chris [facility] Emilee Tineo Other Provider [phone] DO Andry Nugent Other Provider MD Flex Ramos Attending Provider DO Jamal Alvarez Primary Care Provider DO Jamal Alvarez Attending Provider MD Valdez Castro Attending Provider [phone] Jamal Alvarez DO Primary Care Provider Saul Abdalla DO Unavailable Ubaldo Dubose MD Unavailable [phone] Valdez Castro MD Unavailable Flex Ramos MD Unavailable Judit Lora MD Unavailable Jamal Alvarez DO Primary Care Provider Valdez Castro MD Attending Provider [phone] JUDIT LORA Attending Unavailable JAMAL ALVAREZ Primary Care Unavailable JUDIT LORA Attending Unavailable JUDIT LORA Referring Unavailable JAMAL ALVAREZ Primary Care Unavailable Judit Lora MD Unavailable Jamal Alvarez DO Primary Care Provider Valdez Castro MD Attending Provider [phone] Jamal Alvarez DO Attending Provider [phone] Valdez Castro MD Other Provider [phone] Rachel IVY, Imad Unavailable Jamal Alvarez DO Primary Care Provider Loraine Mccallum MD Emergency Provider [phone] Matias Valdez DO Admit Provider Matias Valdez DO Attending Provider Renan Murguia MD Attending Provider Renan Murguia MD Other Provider Praveena Garcia MD Attending Provider Rachel IVY, Imroni Attending Provider Rachel IVY, Imroni Other Provider Jamal Alvarez DO Attending Provider [phone] Jamal Alvarez DO Primary Care Provider [phone] Vimal Burton MD Primary Care Provider [phone] Jamal Alvarez DO Attending Provider Jamal Alvarez Primary Care Unavailable Asaad, Imad [...] Provider Vimal Burton MD Primary Care Provider [phone] Richy CONSULTING PROJECT DIRECTORJose Luis John Unavailable JAMAL ALVAREZ Attending Unavailable JAMAL ALVAREZ Attending Unavailable JAMAL ALVAREZ Referring Unavailable PATRICIA BARRY Attending Unavailable DEE JACKSON Attending Unavailable JAMAL ALVAREZ Referring Unavailable JOSE LUIS LOCKHART Attending Unavailable JOSE LUIS LOCKHART Referring Unavailable RICHYJOSE LUIS SANDY Attending Unavailable RICHYJOSE LUIS SANDY Referring Unavailable Richy CONSULTING PROJECT DIRECTOR, Jose Luis Galdamez Unavailable JAMAL ALVAREZ Primary Care Unavaillarissa e MELISSA CASTELLON Attending Unavailable JAMAL ALVAREZ Primary Care UnavailQUINTIN Aguilar Attending Unavailable SELF Referring Unavailable JAMAL ALVAREZ Primary Care UnavailLISA Nielsen Attending Unavailable JAMAL ALVAREZ Primary Care UnavailLISA Nielsen Attending Unavailable VIMAL BURTON Primary Care Unavailable LAUREN, MELISSA Referring Unavailable VIMAL BURTON Primary Care Unavailable HUMBLE SIMEON Attending Unavailable ANASTASIA KRAUS Attending Unavailable VIMAL BURTON Primary Care Unavailable SELF Referring Unavailable VIMAL BURTON Primary Care Unavailable LISA WILLIAM Attending Unavailable VIMAL BURTON Primary Care Unavailable LAUREN, MELISSA Attending Unavailable LAUREN, MELISAS Admitting Unavailable Allergies Allergy Classification Reported Allergen(s) Allergy Type Date of Onset Reaction(s) Facility Benzodiazepines (2 sources) Midazolam Drug Allergy 01-10-20 Mental Status Change [facility] Berries (1 source) Atco Food Allergy 06-29-20 Rash [facility] Latex (1 source) Latex Substance Allergy 06-29-20 [facility] Opioid Agonists (2 sources) Codeine Drug Allergy 08-21-20 Other: See Comments [facility] Penicillins (antibiotic) (1 source) Penicillins Drug Allergy 06-29-20 09 [facility] strawberry allergenic extract (1 source) strawberry allergenic extract Drug Allergy 04-13-20 Nausea [facility] Sulfonamides (antibiotic) (2 sources) Sulfonamides (Antibiotic) Drug Allergy 06-29-20 09 [facility] (20 sources) Codeine; Translations: [codeine] Drug Allergy 12-26-19 Unknown Reaction [facility] (7 sources) Penicillins; Translations: [Penicillins] Allergy to drug (finding) 06-29-20 09 [place] [address] Repository (20 sources) Propoxyphene; Translations: [propoxyphene] Drug Allergy 08-21-20 Other: See Comments [facility] (3 sources) Sulfamethoxazole; Translations: [sulfa] Drug Allergy [facility] [place] [address] DO Work Phone: (20 sources) Latex; Translations: [LATEX] Propensity to adverse reactions 06-29-20 [facility] (1 source) Penicillins Propensity to adverse reactions 06-29-20 09 [facility] (20 sources) Atco; Translations: [STRAWBERRIES] Propensity to adverse reactions 06-29-20 09 [facility] (20 sources) Sulfonamides (Antibiotic); Translations: [SULFA (SULFONAMIDE ANTIBIOTICS)] Propensity to adverse reactions 06-29-20 09 [facility] (20 sources) Propoxyphene N-Acetaminophen; Translations: [PROPOXYPHENE N-ACETAMINOPHEN] Drug Allergy 06-29-20 [facility] (20 sources) Penicillins Propensity to adverse reactions 06-29-20 [facility] (20 sources) strawberry allergenic extract Drug Allergy 12-26-19 Nausea [facility] (1 source) Penicillins Drug allergy (disorder) [facility] Repository (1 source) Sulfonamides (Antibiotic) Drug allergy (disorder) [facility] (20 sources) Midazolam; Translations: [MIDAZOLAM] Drug Allergy 01-10-20 Mental Status Change, Hallucinations [facility] (20 sources) opiates Propensity to adverse reactions 01-10-20 Confusion [facility] (20 sources) Morphinan opioid; Translations: [OPIOIDS - MORPHINE ANALOGUES] Drug Allergy 12-26-19 Mental Status Change, Unknown, Hallucinations [facility] (20 sources) Latex Propensity to adverse reactions 06-29-20 Rash [facility] (20 sources) Penicillins Drug Allergy 06-29-20 Rash [facility] (20 sources) Other Allergy to substance 08-21-20 Rash [facility] (12 sources) Penicillins Propensity to adverse reactions 06-29-20 Rash [facility] (3 sources) diphenhydrAMINE Drug Allergy 04-17-20 Unresponsive [facility] (3 sources) Metoclopramide Drug Allergy 04-17-20 25 Agitated [facility] Medications Current Medications Medication Drug Class(es) Dates Sig (Normalized) Sig (Original) [id number] 200 actuat albuterol 0.09 mg/actuat metered dose inhaler (20 sources) beta2-Adrenergic Agonist Start: 04-30-2025 take 2 puff(s) by inhalation every four hours for wheezing albuterol HFA 90 mcg/act inhaler Indications: Pulmonary fibrosis (HCC) Inhale 2 puffs every 4 (four) hours if needed for wheezing or shortness of breath 18 g 3 04/30/2025 Active Start: 04-30-2025 take 2 puff(s) by in halation every four hours as needed albuterol HFA (PROVENTIL HFA, VENTOLIN HFA) 90 mcg/actuation inhaler Inhale 2 puffs as instructed every 4 hours as needed. 04/30/2025 Active Start: 03-17-2025 take 2 puff(s) [...] Start: 06-01-20 take 1 tablet by mouth every other day azithromycin (Zithromax) 250 MG tablet Take 250 mg by mouth every other day Sunday, Sunday, Sunday06/01/2025 Active Start: 06-01-2025 take 1 tablet by mouth once az ithromycin (ZITHROMAX) 250 mg tablet Indications: Bronchiectasis without complication (HCC) Take 1 tablet by mouth every Sunday, Sunday, and Sunday. 30 tablet 1 06/01/2025 Active Start: 05-05-2024 End: 05-29-2025 take 1 tablet by mouth once azithromycin (ZITHROMAX) 2 50 mg tablet Indications: Bronchiectasis without complication (HCC) Take 1 tablet by mouth every Sunday, Sunday, and Sunday. 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 06/25/2025 Active Calcium (20 sources) Phosphate Binder, [...] tablet (20 sources) [id number] Platelet Inhibitor Start: 07-23-2025 take 1 tablet by mouth once daily clopidogrel (Plavix) 75 MG tablet Indications: Brain injury with open intracranial wound and no loss of consciousness, subsequent encounter Take 1 tablet (75 mg) by mouth Daily 90 tablet 3 07/23/2025 Active Start: 06-29-2009 clopidogrel bi sulfate(PLAVIX 75 MG TAB) Take one(1) tablet daily. [...] propionate 0.05 mg/actuat metered dose nasal spray (17 sources) Corticosteroid Start: 05-20-2025 End: 05-20-2026 take 2 spray(s) nasal route once daily fluticasone (Flonase) 50 MCG/ACT nasal spray Indications: OME (otitis media with effusion), right Administer 2 sprays into each nostril Daily Shake gently. Before first use, prime pump. After use, clean tip and replace cap. 48 g 3 05/20/2025 05/20/2026 Active Start: 05-20-2025 End: 05-20-2026 take 2 spray(s) nasal route twice daily fluticasone (FLONASE) 50 mcg/actuation nasal spray Use 2 sprays in each nostril two times a day. 05/20/2025 05/20/2026 Active Start: 05-20-2025 fluticasone (F [...] by mouth once daily furosemide (LASIX) 20 m g tablet Take 10 mg by mouth once daily. 03/10/2024 Active ibandronic acid 150 mg oral tablet (20 sources) Bisphosphonate Start: 07-23-2025 take 1 tablet by mouth every 30 days in the morning ibandronate (Boniva) 150 MG tablet Indications: Senile osteoporosis Take 1 tablet (150 mg) by mouth every 30 (thirty) days Take in morning with full glass of water on an empty stomach. No food, drink, meds, or lying down for 60 minutes after. 3 tablet 3 07/23/2025 Active Start: 11-05-2019 Ibandronate 15 0 mg tablet [...] Proton Pump Inhibitor Start: 08-09-2021 End: 04-02-2026 take 1 capsule by mouth before mealtime omeprazole (PriLOSEC) [address] capsule Indications: Gastroesophageal reflux disease without esophagitis Take 1 capsule (40 mg) by mouth in the morning. Take before meals. Do not crush or chew. 90 capsule 3 04/02/2025 04/02/2026 Active Comment on above: Take by [...] OZEMPIC 1 mg/dose (4 mg/3 mL) pen (7 sources) inject 1 mg by subcutaneous injection [...] complication, without long-term current use of insulin ([facility]/HCC) Inject 1 mg under the skin 1 [...] tablet (20 sources) HMG-CoA Reductase Inhibitor Start: 07-23-2025 take 1 tablet by mouth at bedtime simvastatin (Zocor) 20 MG tablet Indications: Mixed hyperlipidemia Take 1 tablet (20 mg) by mouth at bedtime 90 tablet 3 07/23/2025 Active Start: 05-15-2024 End: 08-25-2024 take 1 tablet [...] 04-17-2025 jay e 1 tab let by twi ce johnny ly at [facility] lti me Cefpodoxime 200 mg tablet Discontinued 200 MG PO Twice daily 08 09March 15, 2025 12:00am April 17, 2025 12:04pm must administer with a meal/food; start 03/16/25 evening cephalexin 500 mg oral capsule (20 sources) Cephalosporin Antibacterial Start: 10-25-2021 End: 12-26-2022 jay e 1 cap sul e by twi ce johnny ly Cephalexin 500 mg [...] 04-13-2024 jay e 1 tab let by marilyn mills ly at [facility] Desmopressin 0.2 [...] Comment on above: Take one(1) tablet d ailsamuel escitalopram 20 mg oral tablet (7 sources) Serotonin Reuptake Inhibitor Start: 06-29-20 End: 12-28-19 24 escitalopram oxalate(LEXAPRO 20 MG TAB) Take one(1) [...] (7 sources) Benzodiazepine Start: 06-29-20 End: 12-28-19 24 [...] oral tablet (20 sources) Opioid Agonist Start: End: 3 take 1 tablet by mouth [...] abdominal pain] 05-28-2025 Episodic Acquired foot deformities (10 sources) Acquired hallux valgus; Translations: [Hallux valgus (acquired), unspecified foot] Onset: 5 05-19-2025 Chronic Acute myocardial infarction (20 sources) Myocardial infarction; Translations: [Non-ST elevation (NSTEMI) myocardial infarction] Onset: 5 04-14-2024 Chronic Aspiration pneumonitis; food/vomitus (2 sources) Aspiration pneumonitis; Translations: [Pneumonitis due to inhalation of food and vomit] 12-28-2023 Episodic Biliary tract disease (2 sources) Biliary calculus; Translations: [Calculus of gallbladder without cholecystitis without obstruction] Onset: 5 06-17-2025 Episodic Cataract (20 sources) Bilateral age-related [...] 4 03-10-2024 Chronic Diabetes mellitus without complication (9 sources) Prediabetes; Translations: [Prediabetes] Onset: 5 06-25-2025 Episodic Disorders of lipid metabolism (20 sources) Mixed hyperlipidemia; Translations: [Mixed hyperlipidemia] Onset: 3 Chronic Diverticulosis and diverticulitis (4 sources) Diverticular disease; Translations: [Diverticulosis of intestine, part unspecified, without perforation or abscess without bleeding] 05-28-2025 Chronic Epilepsy; convulsions (14 sources) Epilepsy; Translations: [Localization-related (focal) (partial) symptomatic [...] aftercare (1 source) Treatment changed; Translations: [Other lobsterman (current) drug therapy] 03-10-2024 Episodic Other aftercare (3 sources) Long-term current use of drug therapy; Translations: [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/antipl atelets] Onset: 5 07-13-2025 Episodic Other aftercare (1 source) Traumatic brain injury; Translations: [Traumatic brain injury, with unknown loss of consciousness status, subsequent encounter] 07-16-2025 Episodic Other aftercare (1 source) prison (current) use of antithrombotics/antipl atelets; Translations: [prison (current) use of antithrombotics/antipl atelets] Onset: 5 Episodic Other connective tissue disease (2 sources) Other symptoms and signs involving the musculoskeletal system; Translations: [Other musculoskeletal symptoms referable to limbs] 06-25-2025 Episodic Other diseases of bladder and urethra (5 sources) Overactive bladder; Translations: [Overactive bladder] Onset: [...] unspecified] 05-28-2025 Episodic Other lower respiratory disease (6 sources) Interstitial lung disease; Translations: [Interstitial pulmonary disease, unspecified] Onset: 5 12-25-2023 Chronic Other lower respiratory disease (1 source) Interstitial pulmonary disease, unspecified; Translations: [Interstitial lung disease (HCC)] Onset: 5 Chronic Other nervous system disorders (5 sources) Polyneuropathy associated with another disorder; Translations: [...] Onset: 5 03-14-2025 Episodic Pulmonary heart disease (20 sources) Pulmonary hypertension, unspecified; Translations: [Pulmonary hypertension] [...] Onset: 5 05-19-2025 Episodic Residual codes; unclassified (12 sources) Device in situ; Translations: [Presence of neurostimulator] Onset: 5 Resolved: 5 05-19-2025 Episodic Residual codes; unclassified (2 sources) At risk of disease; Translations: [Other specified personal risk factors, not elsewhere classified] Onset: 5 07-16-2025 Episodic Residual codes; unclassified (1 source) Other specified personal risk factors, not elsewhere classified; Translations: [At risk for aspiration pneumonia] Onset: 5 Episodic Respiratory failure; insufficiency; arrest (adult) (16 sources) Acute respiratory failure; Translations: [Acute respiratory failure with hypoxia] Onset: 5 03-14-2025 Episodic Rheumatoid arthritis and related disease (13 sources) Ankylosing spondylitis; Translations: [Ankylosing spondylitis lumbar [...] unspecified] Onset: 3 Chronic Transient cerebral ischemia (4 sources) Transient cerebral ischemia; Translations: [Transient cerebral ischemic attack, unspecified] Onset: 2 07-13-2025 Chronic Unclassified (1 source) Unspecified intracranial injury with loss of consciousness status unknown, sequela (CMS-HCC); Translations: [Unspecified intracranial injury with loss of consciousness status unknown, sequela (CMS-HCC)] Onset: 4 Unclassified (1 source) Cough, unspecified; Translations: [Cough, unspecified] Onset: 4 Unclassified (4 sources) A [facility] screening has identified you as FRAIL or [...] Four Ways to Beat the Frailty Risk [email or web address] rlg-ytx-eplgwrctwx/sta h-sqyokq-kbsu-ways-to- ggbc-jff-cbd ilty-risk 03-15-2025 Unclassified (3 sources) Call office on Sunday to schedule follow-up with your Primary Care Provider within 3-5 days of discharge. Unclassified (5 sources) Autogenerated Problem Onset: 5 06-30-2025 Unclassified (1 source) Traumatic brain injury, with unknown loss of consciousness status, subsequent encounter; Translations: [Traumatic brain injury, with unknown loss of consciousness status, subsequent encounter] Onset: 5 Unclassified (1 source) Establish Care Onset: 5 Past or Other Problems Problem Classification Problem Date Documented Date Episodic/Chronic Administrative/social admission (2 sources) Person consulting for explanation of examination or test findings; Translations: [Person consulting for explanation of examination or test findings] Onset: 06-12-2024 Episodic Asthma (20 sources) Moderate asthma; Translations: [Unspecified asthma, uncomplicated] Onset: 08-20-2023 Resolved: 08-25-2024 08-20-2023 Chronic Cardiac dysrhythmias (14 sources) Sinus bradycardia; Translations: [Other specified cardiac [...] 02-22-2024 02-22-2024 Other aftercare (3 sources) Other lobsterman (current) drug therapy; Translations: [OTH HALFWAY CURRENT DRUG THERAPY] Onset: 02-12-2023 Episodic Other aftercare (9 sources) Patient encounter status; Translations: [Other lobsterman (current) drug therapy] Onset: 06-12-2024 08-25-2024 Episodic [...] of mental health and substance abuse codes (18 sources) Ex-smoker; Translations: [Personal history of tobacco [...] 05-22-2025 Unclassified (2 sources) Hearing finding 05-22-2025 Unclassified (1 source) Preprocedural examination done 07-16-2025 Urinary tract infections (20 sources) Recurrent urinary tract infection; Translations: [Urinary tract infection, site not specified] Onset: 08-25-2024 08-25-2024 Episodic Results Test Name Value Interpretation Reference Range Facility TISS PATH BX REPORTon 2024 AP DISCLAIMER [facility] Comment on above: Laboratory Developed Test (LDT) Disclaimer: Performance characteristics of immunohistochemical, immunofluorescent, and chromogenic in-situ hybridization tests have been determined by the performing laboratory within the [facility] Department of Pathology and Laboratory Medicine ([facility], [facility], [facility], [facility], [facility], or [facility]) in a manner consistent with CLIA requirements. One or more of these tests may not have been cleared or approved by the FDA. The [facility] Department of Pathology and Laboratory Medicine is regulated under CLIA as qualified to perform high-complexity testing. These tests are used for clinical purposes. These should not be regarded as investigational or for research. Positive and negative controls stain appropriately. [facility] CASE REPORT [facility] Comment on above: Surgical Pathology R eport Case: [id number] Authorizing Provider: Melissa Castellon MD Collected: 07/24/2025 11:14 AM Ordering Location: [facility] Surgery Received: 07/24/2025 02:46 PM Pathologist: Ramón Solis MD, PhD Specimen: Gallbladder [facility] CLINICAL HISTORY [facility] Comment on above: Pre-op diagnosis: Symptomatic cholelithiasis [K80.20] [facility] FINAL DIAGNOSIS [facility] Comment on above: A. Gallbladder, chol ecystectomy: - Chronic cholecystitis with adenomyomatous hyperplasia at the fundus - Cholelithiasis at 1649 EDT [facility] FINAL PERFORMING LAB [facility] Comment on above: Diagnostic interpret ation performed at: [facility], [address] [place] [address], [facility] [place] [address] CLIA# [id number] Automobile Sales Representative: Maegd Melo MD [facility] GROSS DESCRIPTION A. Gallbladder [facility] Comment on above: Received in formalin labeled as gallbladder is a gallbladder measuring 5.6 x 2.4 x 1.4 cm. The green-sanchez serosa is smooth and glistening. The cystic duct margin is slightly dilated with a 0.6 cm lumen. Green viscous bile is abundantly present in the lumen. A single black-green, ovoid, slightly friable calculus is present in the lumen measuring 1.4 x 1.3 x 0.9 cm. The mucosa is bile-stained and velvety. Section reveals a 0.2 cm wall thickness. Additionally, some cystic spaces are identified towards the fundus, devoid of any contents. Palpation does not reveal any possible lymph nodes. Waxer Floor sections are submitted in 1 cassette. RSA July 27, 2025 9:49 AM Gross examination performed at [facility], [address] [place] [address] Specimen Type: TISSU E SPECIMEN Ordering Facility: [facility] Address: [address] [place] [address] Original Ordering Provider: [facility] CBC panel Auto (Bld)on 07-25 Erythrocyte distribution width (RBC) [Ratio] 12.1 % Normal 11.5-15.0 [facility] Comment on above: Order Comment: Speci men Type: BLOOD SPECIMEN Ordering Facility: [facility] Address: [address] [place] [address] Performed By: #### 5 8410-2 #### [facility] CLIA [id number] [address] [place], [place] [id number] [place] [address] [facility] Hematocrit (Bld) [Volume fraction] 39.7 % Normal 36.0-46.0 [facility] Comment on above: Order Comment: Speci men Type: BLOOD SPECIMEN Ordering Facility: [facility] Address: [address] [place] [address] Performed By: #### 5 8410-2 #### [facility] [place] [id number] [address] [place] [id number] [place] [address] [place] Hemoglobin (Bld) [Mass/Vol] 13.2 g/dL Normal 11.5-15.5 [facility] Comment on above: Order Comment: Speci men Type: BLOOD SPECIMEN Ordering Facility: [facility] Address: [address] [place] [address] Performed By: #### 5 8410-2 #### [facility] [place] [id number] [address] [place] [address] [place] MCH (RBC) [Entitic mass] 30.3 pg Normal 26.0-34.0 [facility] Comment on above: Order Comment: Speci men Type: BLOOD SPECIMEN Ordering Facility: [facility] Address: [address] [place] [address] Performed By: #### 5 8410-2 #### [facility] CLIA [id number] [address] [place] [address] [place] MCHC (RBC) [Mass/Vol] 33.2 g/dL Normal 30.5-36.0 [facility] Comment on above: Order Comment: Speci men Type: BLOOD SPECIMEN Ordering Facility: [facility] Address: [address] [place] [address] Performed By: #### 5 8410-2 #### [facility] CLIA [id number] [address] [place] [address] [place] MCV (RBC) [Entitic vol] 91.1 fL Normal 80.0-100.0 [facility] Comment on above: Order Comment: Speci men Type: BLOOD SPECIMEN Ordering Facility: [facility] Address: [address] [place] [address] Performed By: #### 5 8410-2 #### [facility] CLIA [id number] [address] [place] [address] [place] Nucleated RBC (Bld) [#/Vol] 10*3/uL Normal <0.01 [facility] Comment on above: Order Comment: Speci men Type: BLOOD SPECIMEN Ordering Facility: [facility] Address: [address] [place] [address] Performed By: #### 5 8410-2 #### [facility] IA [id number] [place] [address] [place] Platelet mean volume (Bld) [Entitic vol] 9.8 fL Normal 9.0-12.7 [facility] Comment on above: Order Comment: Speci men Type: BLOOD SPECIMEN Ordering Facility: [facility] Address: [address] [place] [address] Performed By: #### 5 8410-2 #### [facility] CLIA [id number] [address] [place] [address] [place] Platelets (Bld) [#/Vol] 258 10*3/uL Normal 150-400 [facility] Comment on above: Order Comment: Speci men Type: BLOOD SPECIMEN Ordering Facility: [facility] Address: [address] [place] [address] Performed By: #### 5 8410-2 #### [facility] CLIA [id number] [place] [address] [place] RBC (Bld) [#/Vol] 4.36 10*6/uL Normal 3.90-5.20 [facility] Comment on above: Order Comment: Speci men Type: BLOOD SPECIMEN Ordering Facility: [facility] Address: [address] [place] [address] Performed By: #### 5 8410-2 #### [facility] CLIA [id number] [address] [place] [address] [place] WBC (Bld) [#/Vol] 10.12 10*3/uL Normal 3.70-11.00 [facility] Comment on above: Order Comment: Speci men Type: BLOOD SPECIMEN Ordering Facility: [facility] Address: [address] [place] [address] Performed By: #### 5 8410-2 #### [facility] CLIA [id number] [address] [place] [address] [facility] CNDSon 07-25-2025 CNDS HNO ID: [id number] Author: SIMONE MURILLO III, MD Service: General Surgery Author Type: Physician Trombone Slide Assembler Type: Discharge Summary Filed: 07/25/2025 13:01 Note Text: -- Attestation signed by Simone Murillo III, MD at 07/25/2025 1:01 PM DISCHARGE DATE: 07/25/2025 Simone Murillo III, MD -- DISCHARGE SUMMARY PATIENT NAME: Karuna Reynaga Code Status: Full Code Highest Readmission Risk Score: 14 The 30 day readmissions risk score is derived from an internally validated risk model which evaluates patient level characteristics, utilization history, medication orders and lab results up until the day of discharge. Patients with a score of 39 or above are considered highest risk for readmission. Specific patient level drivers will be listed at the bottom of the summary. Admission Information Admission Information ADMIT DATE: 07/24/2025 DISCHARGE DATE: 07/25/2025 MY DOCTORS AND MEDICAL TEAM: My Main Hospital Doctor: Melissa Castellon MD Primary Care Provider: Vimal Burtno MD My Medical Team Members: Treatment Team: Attending Provider: Melissa Castellon MD MY CONDITION AT DISCHARGE: Stable REASON I WAS IN THE HOSPITAL: symptomatic cholelithiasis, s/p laparoscopic cholecystectomy SUMMARY OF WHAT HAPPENED WHILE I WAS IN THE HOSPITAL: Karuna Reynaga is a 80 year old female with symptomatic cholelithiasis who presents on 07/24/2025 for scheduled elective laparoscopic cholecystectomy (Dr. Castellon). Operation went well without immediate complication and she was admitted overnight for observation. She was discharged the following day in stable condition OTHER PROBLEMS/DIAGNOSIS: Principal Problem: Symptomatic cholelithiasis Active Problems: At risk for delirium Resolved Problems: * No resolved hospital problems. * OPERATIONS PERFORMED WHILE IN THE HOSPITAL: laparoscopic cholecystectomy IMPORTANT TEST/PROCEDURES: No procedures performed TEST RESULTS NOT AVAILABLE AT THIS TIME: The plan for following up on pending results below is to follow-up with Dr. Castellon in 2 weeks Pathology report from surgery Discharge Disposition Discharge Disposition: Home With Self Care Activity When You Leave the Hospital Lifting is restricted to: Less than 20 pounds for 2 weeks, then less than 40 pounds for additional 4 weeks. May shower. No baths. Do not soak the area such as a bath or pool until cleared by your surgeon. No driving for: While taking narcotic pain medication or while in pain. No prolonged bedrest, longer than 8 hours in a 24 hour period No walking restrictions Diet Instructions Avoid Alcohol Drink 6 to 8 glasses of fluids per day Resume your pre-hospital diet For Pain When You Leave the Hospital If you become constipated, you may use any dpgf-mky-ndhumel treatment such as Milk of Magnesia, Sennakot, Prune Juice, Suppositories, etc. in addition to the stool softener/fiber supplement No alcohol or driving while on pain medication Use acetaminophen (Tylenol) as recommended on the bottle Use the dispensed medication (see prescription) You should use an vgrt-smt-gujhcdm stool softener (Docusate sodium) and/or a fiber supplement (Metamucil, Fiber Con) every day while taking prescribed pain medication Wound/Surgical Site Care Apply ice packs as needed It is normal to have swelling, mild bruising, blood on the steri-strips, numbness and firmness around the incision Leave open to air Some bleeding from the wound/surgical site can be expected. If excessive, see a doctor at once Wash your hands frequently, especially before touching your incision, after using restroom and before eating Your incision has skin glue. It will peel off on its own. It can get wet Call Your Doctor If There is an unusual odor from the wound area There is severe pain at the operative site You have lightheadedness, fainting, or confusion You have pain and swelling in your legs, especially if it is only on one side and not the other You have persistent nausea/vomiting over 24 hours You have persistent or heavy bleeding You have redness, swelling, pus or drainage from the wound Your temperature is greater than 101F Additional Provider to Provider Information: Karuna Reynaga is a 80 year old female with symptomatic cholelithiasis who presents on 07/24/2025 for scheduled elective laparoscopic cholecystectomy (Dr. Castellon). Operation went well without immediate complication and she was admitted overnight for observation. She was discharged the following day in stable condition Treatment Team: Attending Provider: Melissa Castellon MD Consulting: (Internal), Internal Provider (Inactive) FINAL DIAGNOSIS: symptomatic cholelithasis, s/p laparoscopic cholecystectomy Active Hospital Problems Diagnosis POA Symptomatic cholelithiasis Yes (more content not included)... Normal [facility] Comprehensive metabolic 2000 panelon 07-25-2025 Albumin [Mass/Vol] 4.0 g/dL Normal 3.9-4.9 [facility] Comment on above: Order Comment: Fadi jessica Type: BLOOD SPECIMEN Ordering Facility: [facility] Address: [address] [place] [address] Performed By: #### 2 4323-8 #### [facility] CLIA [id number] [address] [place] [address] [place] ALP [Catalytic activity/Vol] 56 U/L Normal 34-123 [facility] Comment on above: Order Comment: Fadi jessica Type: BLOOD SPECIMEN Ordering Facility: [facility] Address: [address] [place] [address] Performed By: #### 2 4323-8 #### [facility] CLIA [id number] [address] [place] [address] [place] ALT [Catalytic activity/Vol] 88 U/L High 7-38 [facility] Comment on above: Order Comment: Speci men Type: BLOOD SPECIMEN Ordering Facility: [facility] Address: [address] [place] [address] Performed By: #### 2 4323-8 #### [facility] CLIA [id number] [address] [place] [address] [place] Anion gap [Moles/Vol] 11 mmol/L Normal 8-15 [facility] Comment on above: Order Comment: Speci men Type: BLOOD SPECIMEN Ordering Facility: [facility] Address: [address] [place] [address] Performed By: #### 2 4323-8 #### [facility] CLIA [id number] [address] [place] [address] [place] AST [Catalytic activity/Vol] 73 U/L High 13-35 [facility] Comment on above: Order Comment: Speci men Type: BLOOD SPECIMEN Ordering Facility: [facility] Address: [address] [place] [address] Performed By: #### 2 4323-8 #### [facility] CLIA [id number] [address] [place] [address] [place] Bilirubin [Mass/Vol] 0.5 mg/dL Normal 0.2-1.3 [facility] Comment on above: Order Comment: Speci men Type: BLOOD SPECIMEN Ordering Facility: [facility] Address: [address] [place] [address] Performed By: #### 2 4323-8 #### [facility] CLIA [id number] [address] [place] [address] [place] Calcium [Mass/Vol] 9.7 mg/dL Normal 8.5-10.2 [facility] Comment on above: Order Comment: Speci men Type: BLOOD SPECIMEN Ordering Facility: [facility] Address: [address] [place] [address] Performed By: #### 2 4323-8 #### [facility] CLIA [id number] [address] [place] [address] [place] Chloride [Moles/Vol] 103 mmol/L Normal 98-107 [facility] Comment on above: Order Comment: Speci men Type: BLOOD SPECIMEN Ordering Facility: [facility] Address: [address] [place] [address] Performed By: #### 2 4323-8 #### [facility] CLIA [id number] [address] [place] [address] [place] CO2 [Moles/Vol] 26 mmol/L Normal 22-30 [facility] Comment on above: Order Comment: Speci men Type: BLOOD SPECIMEN Ordering Facility: [facility] Address: [address] [place] [address] Performed By: #### 2 4323-8 #### [facility] CLIA [id number] [address] [place] [id number] [place] Creatinine [Mass/Vol] 0.74 mg/dL Normal 0.58-0.96 [facility] Comment on above: Order Comment: Speci men Type: BLOOD SPECIMEN Ordering Facility: [facility] Address: [address] [place] [address] Performed By: #### 2 4323-8 #### [facility] CLIA [id number] [address] [place] [id number] [place] eGFRcr SerPlBld CKD-EPI 2020 82 mL/min/1.73m??? Normal >=60 [facility] Comment on above: Order Comment: Speci men Type: BLOOD SPECIMEN Ordering Facility: [facility] Address: [address] [place] [address] Result Comment: Elysia mated Glomerular Filtration Rate (eGFR) is calculated using the 2020 CKD-EPI creatinine equation. This equation utilizes serum creatinine, sex, and age as parameters. The creatinine assay has traceable calibration to isotope dilution-mass spectrometry. Refer to KDIGO guidelines for clinical interpretation. In patients with unstable renal function, e.g. those with acute kidney injury, the eGFR may not accurately reflect actual GFR. Performed By: #### 2 4323-8 #### [facility] CLIA [id number] [address] [place] [address] [place] Glucose [Mass/Vol] 114 mg/dL High 74-99 [facility] Comment on above: Order Comment: Fadi jessica Type: BLOOD SPECIMEN Ordering Facility: [facility] Address: [address] [place] [address] Result Comment: The [place] [employer] (ADA) provides guidance for cutoff [...] Standards of Medical Care in Diabetes 2016, [place] [employer]. Diabetes Care. 2016.39(Suppl 1). Performed By: #### 2 4323-8 #### [facility] CLIA [id number] [address] [place] [address] [place] Potassium [Moles/Vol] 4.7 mmol/L Normal 3.7-5.1 [facility] Comment on above: Order Comment: Fadi jessica Type: BLOOD SPECIMEN Ordering Facility: [facility] Address: [address] [place] [address] Performed By: #### 2 4323-8 #### [facility] CLIA [id number] [address] [place] [address] [place] Protein [Mass/Vol] 7.0 g/dL Normal 6.3-8.0 [facility] Comment on above: Order Comment: Fadi jessica Type: BLOOD SPECIMEN Ordering Facility: [facility] Address: [address] [place] [address] Performed By: #### 2 4323-8 #### [facility] CLIA [id number] [address] [place] [address] [facility] [facility] Sodium [Moles/Vol] 140 mmol/L Normal 136-144 [facility] Comment on above: Order Comment: Astoni aracely Type: BLOOD SPECIMEN Ordering Facility: [facility] Address: [address] [place] [address] Performed By: #### 2 4323-8 #### [facility] CLIA [id number] [address] [place] [address] [place] Urea nitrogen [Mass/Vol] 14 mg/dL Normal 7-21 [facility] Comment on above: Order Comment: Speci aracely Type: BLOOD SPECIMEN Ordering Facility: [facility] Address: [address] [place] [id number] Performed By: #### 2 4323-8 #### [facility] CLIA [id number] [address] [place] [address] [place] ANES POSTPROC EVALon 025 ANES POSTPROC EVAL HNO ID: [id number] Author: ANDRY MILLS MD Service: Anesthesiology Author Type: Physician Type: Anesthesia Postprocedure Evaluation Filed: 07/24/2025 16:12 Note Text: POST ANESTHESIA EVALUATION NOTE : 1945 Procedure Summary Date: 07/24/25 Room / Location: OR06 / AV OR Anesthesia Start: 1306 Anesthesia Stop: 1425 Procedure: LAPAROSCOPIC CHOLECYSTECTOMY POSSIBLE OPEN (Gallbladder) Diagnosis: Symptomatic cholelithiasis (Symptomatic cholelithiasis [K80.20]) Surgeons: Melissa Castellon MD Responsible Provider: Andry Mills MD Anesthesia Type: general ASA Status: 3 Anesthesia Type: general Airway Type: ETT Last Vitals Vitals Value Taken Time BP 142/62 07/24/25 16:10 Temp 36.2 ?C (97.2 ?F) 07/24/25 14:20 Pulse 56 07/24/25 16:11 Resp 18 07/24/25 16:11 SpO2 97 % 07/24/25 16:11 Vitals shown include unfiled device data. Post Anesthesia Patient Status Patient Evaluation: PACU. PACU/ICU Patient Condition: stable. Anticipated Disposition: inpatient floor planned admission. Neurological Status: aware and responsive. Pulmonary Status: breathing comfortably on room air Airway Control: returned to baseline unsupported. Cardiovascular Status: stable. Pain Management: satisfactory to patient Postoperative Hydration: acceptable. Intraoperative Events: no significant anesthesia events Recommendation: continue current plan of care. Anesthesia Observations No Documentation SIGNATURE: Andry Mills MD PATIENT NAME: aKruna Reynaga DATE: July 24, 2025 TIME: 4:12 PM CSN: [id number] [facility] ANES PRE-OPon 07-24-2025 ANES PRE-OP HNO ID: [id number] Author: CATA MORTON DO Service: Anesthesiology Author Type: Anesthesiologist Type: Anesthesia Preprocedure Evaluation Filed: 07/24/2025 11:50 Note Text: ANESTHESIOLOGY DAY OF SURGERY NOTE : 1945 Procedure Information Date/Time: 07/24/25 1155 Procedure: LAPAROSCOPIC CHOLECYSTECTOMY POSSIBLE OPEN (Gallbladder) Location: AV OR06 / AV OR Surgeons: Melissa Castellon MD Estimated body mass index is 27.19 kg/m? as calculated from the following: Height as of this encounter: 144.8 cm (4' 9 ). Weight as of this encounter: 57 kg (125 lb 10.6 oz). Most recent hematocrit and potassium results: Hematocrit 40.3 07/28/2022 Potassium 4.4 07/28/2022 Relevant Problems CARDIO (+) Pulmonary hypertension (HCC) NEURO-PSYCH (+) Seizure disorder (HCC) (+) TIA (transient ischemic attack) I - PHYSICAL EVALUATION AIRWAY Patient intubated: No. Tracheostomy tube not present Mallampati: IV. TM distance: <3 FB. Neck ROM: full ROM without neurological symptoms. Mouth openin FB. Short neck: no. Thick neck: no DENTAL Dental findings: caps/crowns. Dentures, upper: complete. Dentures, lower: complete. II - ANESTHESIA PLAN ASA Score: 3 Anesthetic Plan: general Airway type: ETT The patient is not a current smoker. NPO Status: adequate Monitoring Plan Monitoring plan: standard ASA. Post Procedure Analgesic Plan Postoperative analgesic plan: multimodal analgesia. Informed Consent Anesthetic risks, benefits, alternatives, personnel and consent discussed: yes. Patient / Responsible Republican agrees to proceed: yes Patient / Surrogate agrees to blood products: blood products not planned Vitals Value Taken Time BP 108/77 07/24/25 11:47 Pulse Resp 16 07/24/25 11:47 Temp 36.3 ?C (97.3 ?F) 07/24/25 11:47 SpO2 99 % 07/24/25 11:47 Facility-Administered Medications as of 07/24/2025 Medication Dose Route Frequency promethazine 12.5 mg tab(s) (PHENERGAN) 12.5 mg ORAL Pre-Op Once lidocaine (PF) 10 mg/mL (1 %) 1-2 mg injection (XYLOCAINE) 0.1-0.2 mL INTRADERMAL PRN lactated ringers iv infusion 5-30 mL/hr INTRAVENOUS CONTINUOUS NaCl 0.9% iv flush bag 20 mL INTRAVENOUS PRN clindamycin iv piggyback 900 mg in D5W 50 mL (CLEOCIN) 900 mg INTRAVENOUS Pre-Op Once Outpatient Medications as of 07/24/2025 Medication Sig [START ON 09/18/2025] cannabidiol (EPIDIOLEX) [...] Take 5 mg by mouth once daily. Cholecalciferol, Vitamin D3, 50 mcg (2,000 unit) cap Daily estradiol (ESTRACE) 0.01 % (0.1 mg/gram) vaginal cream Use 1 g vaginally. Ibandronate 150 mg tablet Take 1 tablet by mouth. liothyronine (CYTOMEL) 5 mcg tablet Take 1 tablet by mouth every 12 hours. levothyroxine (SYNTHROID) 50 mcg tablet 50 mcg. brexpiprazole (REXULTI) 0.25 mg tablet Take 0.5 mg by mouth once daily. azithromycin (ZITHROMAX) 250 mg tablet Take 1 tablet by mouth every Sunday, Sunday, and Sunday. ipratropium-albuterol (DUONEB) 0.5 mg-3 mg(2.5 mg base)/3 mL nebu Inhale contents of 1 vial via nebulizer as instructed every 4 hours as needed for wheezing/shortness of breath. sodium chloride (NEBUSAL) 3 % nebulizer solution Use 2 mL via nebulizer two times a day. TRUEPLUS LANCETS 33 gauge USE TO TEST ONCE DAILY EVERY MORNING. clopidogrel bisulfate(PLAVIX 75 MG TAB) Take one(1) tablet daily. CALCIUM 500 MG TAB Take one(1) tablet twice daily. MULTIVITAMIN TAB Take one(1) tablet daily. I have interviewed and examined the patient. I have reviewed the medical record and/or the pre-anesthesia evaluation, pertinent labs, and test results. This contains updated information obtained within 48 hours of Surgery/Procedure. SIGNATURE: Cata Morton DO PATIENT NAME: Karuna Reynaga DATE: July 24, 2025 TIME: 11:49 AM CSN: [id number] [facility] BRIEF OP NOTon 07-24-2025 BRIEF OP NOT HNO ID: [id number] Author: MELISSA CASTELLON MD Service: General Surgery Author Type: Physician Type: Brief Op Note Filed: 07/24/2025 14:11 Note Text: BRIEF OPERATIVE / PROCEDURE NOTE LOG ID: [id number] SURGERY/PROCEDURE DATE: 07/24/2025 INCISION/PROCEDURE START TIME: 1:25 PM INCISION CLOSE/PROCEDURE END TIME: SURGEON(S)/PROCEDURALIST(S ) AND ENDO TECH(S): Surgeons and Role: * Melissa Castellon MD - Primary Physician Trombone Slide Assembler: Kate Bhagat PA-C Preoperative Concerns /Risks: None SURGERY/PROCEDURE(S): Laparoscopic cholecystectomy ANESTHESIA: General FINDINGS: Chronic cholecystitis ESTIMATED BLOOD LOSS: Minimal SPECIMENS: Gallbladder Intraoperative Complication/Events: None CLOSURE TECHNIQUE: Primary PRE-OP/PRE-PROCEDURE DIAGNOSIS: Symptomatic cholelithiasis POST-OP/POST-PROCEDURE DIAGNOSIS: Same as Preop Patient was accompanied to the next level of care by a licensed practitioner from the surgical team pending completion of this brief op note (or operative note) SIGNATURE: Melissa Castellon MD PATIENT NAME: Karuna Reynaga DATE: July 24, 2025 TIME: 2:10 PM Normal [facility] Urinalysis complete panel (U )on 07-24-2025 Bilirubin Ql (U) Negative Normal Negative [facility] Comment on above: Order Comment: Speci men Type: URINE SPECIMEN Ordering Facility: [facility] Address: [address] [place] [address] Performed By: #### 2 4356-8 #### [facility] IA [id number] [address] [place] [address] [place] Clarity (Unsp spec) Clear Normal Clear [facility] Comment on above: Order Comment: Speci men Type: URINE SPECIMEN Ordering Facility: [facility] Address: [address] [place] [address] Performed By: #### 2 4356-8 #### [facility] IA [id number] [address] [place], [place] [id number] [place] Color (U) Light Yellow Normal yellow [facility] Comment on above: Order Comment: Speci men Type: URINE SPECIMEN Ordering Facility: [facility] Address: [address] [place] [address] Performed By: #### 2 4356-8 #### [facility] IA [id number] [address] [place] [address] [place] Epithelial cells LM.HPF (Urine sed) [#/Area] Few Normal [facility] Comment on above: Order Comment: Speci men Type: URINE SPECIMEN Ordering Facility: [facility] Address: [address] [place] [address] Performed By: #### 2 4356-8 #### [facility] IA [id number] [address] [place] [address] [place] Glucose Test strip (U) [Mass/Vol] Negative Normal Trace, Negative [facility] Comment on above: Order Comment: Speci men Type: URINE SPECIMEN Ordering Facility: [facility] Address: [address] [place] [address] Performed By: #### 2 4356-8 #### [facility] CLIA [id number] [address] [place] [address] [place] Hemoglobin Ql (U) Negative Normal Negative, Trace [facility] Comment on above: Order Comment: Speci men Type: URINE SPECIMEN Ordering Facility: [facility] Address: [address] [place] [address] Performed By: #### 2 4356-8 #### [facility] CLIA [id number] [place] [address] [place] Ketones Ql (U) Negative Normal Negative, Trace [facility] Comment on above: Order Comment: Speci men Type: URINE SPECIMEN Ordering Facility: [facility] Address: [address] [place] [address] Performed By: #### 2 4356-8 #### [facility] CLIA [id number] [place] [address] [place] Leukocyte esterase Test strip Ql (U) Negative Normal Negative, 25 Monica/uL [facility] Comment on above: Order Comment: Speci men Type: URINE SPECIMEN Ordering Facility: [facility] Address: [address] [place] [address] Performed By: #### 2 4356-8 #### [facility] CLIA [id number] [address] [place] [address] [place] Nitrite Ql (U) Negative Normal Negative [facility] Comment on above: Order Comment: Speci men Type: URINE SPECIMEN Ordering Facility: [facility] Address: [address] [place] [address] Performed By: #### 2 4356-8 #### [facility] CLIA [id number] [address] [place] [address] [place] pH (U) 6.0 [pH] Normal 5.0-8.0 [facility] Comment on above: Order Comment: Speci men Type: URINE SPECIMEN Ordering Facility: [facility] Address: [address] [place] [address] Performed By: #### 2 4356-8 #### [facility] [place] [id number] [address] [place] [address] [place] Protein (U) [Mass/Vol] Negative Normal Trace , Negative [facility] Comment on above: Order Comment: Speci men Type: URINE SPECIMEN Ordering Facility: [facility] Address: [address] [place] [address] Performed By: #### 2 4356-8 #### [facility] [place] [id number] [place], [place] [id number] [place] RBC LM.HPF (Urine sed) [#/Area] 0-3 /HPF Normal 0-3 /HPF [facility] Comment on above: Order Comment: Speci men Type: URINE SPECIMEN Ordering Facility: [facility] Address: [address] [place] [address] Performed By: #### 2 4356-8 #### [facility] [place] [id number] [place], [place] [id number] [place] Specific gravity (U) [Rel density] 1.018 Normal 1.005-1.03 0 [facility] Comment on above: Order Comment: Speci men Type: URINE SPECIMEN Ordering Facility: [facility] Address: [address] [place] [address] Performed By: #### 2 4356-8 #### [facility] IA [id number] [place] [address] [place] Urobilinogen Ql (U) Normal Normal Normal [facility] Comment on above: Order Comment: Speci men Type: URINE SPECIMEN Ordering Facility: [facility] Address: [address] [place] [address] Performed By: #### 2 4356-8 #### [facility] IA [id number] [address] [place] [address] [place] WBC LM.HPF (Urine sed) [#/Area] 0-5 /HPF Normal 0-5 /HPF [facility] Comment on above: Order Comment: Speci men Type: URINE SPECIMEN Ordering Facility: [facility] Address: [address], [place] [address] Performed By: #### 2 4356-8 #### [facility] CLIA [id number] [address] [place] [address] [facility] [place] CNPNon 07-13-2025 CNPN Telephone (GENSAV) -- KARUNA REYNAGA ([id number]) 1945 F Date Time Provider Department 07/13/25 MELISSA CASTELLON GENAUDELIA During your visit today, we recorded the following information about you: Susanna Duran, RN 07/13/2025 2:04 PM Signed Patient's daughter calling. Patient scheduled for LAP CHOLEY on 07/24/25. Patient is experiencing more frequent discomfort. Asking if any sooner OR times are available? Please call Nadira @ [phone] ok to leave VM, (there is a 30 sec delay before the beep ) [phone] Trini Bateman 07/17/2025 3:12 PM Addendum Patient's daughter Nadira called office, states patient was in the ER yesterday for gallbladder attack. Nadira is requesting to speak with clinical, wants to know when is patient's symptoms considered urgent. Patient is scheduled next Tuesday 07/[address] Castellon, afraid patient need surgery done sooner. Can be reached at [phone]. Thank you. Salud Ventura, TEAGAN 07/17/2025 3:27 PM Signed Called daughter Nadira and received VM after extended time before the beep. I advised that patient must have been taken to the ER near home as I have not current record available and updating CareEverywhere. Informed that urgent would be based on the assessment of when seen and take into consideration if having severe pain that can not be controlled, nausea and vomiting for concerns of dehydration, workup of labs and scans i to determine if infection or passing stone. I advised that again this is based by evaluation of when seen if emergent in nature. Informed if has concerns of any of this then would recommend ER evaluation at [place] but again assessment is required to determine if an emergent need as taking to the ER does not mean will be taken emergently to surgery. Left message to call office if any further questions Allergies As of Date: 07/13/2025 Noted Allergy [...] ANTIBIOTICS) 06/29/2009 2 - Rash Date Reviewed: 07/13/2025 Reviewed by: Carissa Vergara MA - Fully Assessed Reason for Visit: Patient Question [1437] Appointment [186] Prescriptions as of 07/17/2025 - brexpiprazole (REXULTI) 0.25 mg tablet Take 0.5 mg by mouth once daily. - cannabidiol (EPIDIOLEX) 100 mg/mL oral liquid [...] Date 07/13/2025 Noted Resolved Cough [R05.9] 06/29/2020 Hypercholesteremia [E78.00] 07/13/2025 prison (current) use of antithrombotics/anti*05/03 Interstitial lung disease (HCC) [J84.9] 07/13/2025 Myocardial infarction (HCC) [I21.9] 07/13/2025 Prediabetes [R73.03] 06/25/2025 Presence of neurostimulator [Z96.82] 05/19/2025 Pulmonary hypertension (HCC) [I27.20] (more content not included)... Normal [facility] EKGon 07-13-2025 Electrocardiogram Ventricular Rate : 6 7 BPM Atrial Rate : 67 BPM P-R Interval : 172 ms QRS Duration : 82 ms Q-T Interval : 406 ms QTC Calculation(Bazett) : 429 ms Calculated P [place] : 58 degrees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 PER R N PARDEEP AND FAMILY REQUEST PT IS AGGRESSIVE Performed By: #### C BC, HS TROP #### [address] Neutrophils Auto (Bld) [#/Vo l]Ordered By: Magda Navarro on 03-14-2025 Neutrophils (Bld) [#/Vol] Neutrophils [#/volume] in Blood by Automated count 1.8-7.7 [facility] Neutrophils [#/volume] in Bl ood by Automated countOrdered By: Magda Navarro on 03-14-2025 Neutrophils (Bld) [#/Vol] 5.0 10*3/uL Normal 1.8-7.7 [facility] Comment on above: Order Comment: PER R N PARDEEP AND FAMILY REQUEST PT IS AGGRESSIVE Performed By: #### C BC, HS TROP #### [facility] [address] [place] [address] [place] Neutrophils/100 WBC Auto (Bl d)Ordered By: Magda Navarro on 03-14-2025 Neutrophils/100 WBC (Bld) Automated neutrophil % . [facility] Neutrophils/100 leukocytes i n Blood by Automated countOrdered By: Magda Navarro on 03-14-2025 Neutrophils/100 WBC (Bld) 72.8 % Normal . [facility] Comment on above: Order Comment: PER R N PARDEEP AND FAMILY REQUEST PT IS AGGRESSIVE Performed By: #### C BC, HS TROP #### [facility] [address] [place] [address] Nucleated erythrocytes [Pres ence] in Blood by Automated countOrdered By: Magda Navarro on 03-14-2025 Nucleated RBC Auto Ql (Bld) Nucleated erythrocytes [Presence] in Blood by Automated count 0-0.5 [facility] Nucleated RBC Auto Ql (Bld) 0.1 /100{WBC} 0-0.5 [facility] Platelet mean volume Auto (B ld) [Entitic vol]Ordered By: Magda Navarro on 03-14-2025 Platelet mean volume (Bld) [Entitic vol] Platelet mean volume [Entitic volume] in Blood by Automated count 6.3-10.7 [facility] Platelet mean volume [Entiti c volume] in Blood by Automated countOrdered By: Magda Navarro on 03-14-2025 Platelet mean volume (Bld) [Entitic vol] 8.3 fL Normal 6.3-10.7 [facility] Comment on above: Order Comment: PER R N PARDEEP AND FAMILY REQUEST PT IS AGGRESSIVE Performed By: #### C BC, HS TROP #### [facility] [address] Platelets Auto (Bld) [#/Vol] Ordered By: Magda Navarro on 03-14-2025 Platelets (Bld) [#/Vol] Platelets [#/vol ume] in Blood by Automated count 150-450 [facility] Platelets [#/volume] in Bloo d by Automated countOrdered By: Magda Navarro on 03-14-2025 Platelets (Bld) [#/Vol] 169 10*3/uL Normal 150-450 [facility] Comment on above: Order Comment: PER R N PARDEEP AND FAMILY REQUEST PT IS AGGRESSIVE Performed By: #### C BC, HS TROP #### [facility] [address] RBC Auto (Bld) [#/Vol]Ordere d By: Magda Navarro on 03-14-2025 RBC (Bld) [#/Vol] Erythrocytes [#/volu me] in Blood by Automated count 3.60-5.00 [facility] Troponin I High Sensitivityo n 03-14-2025 Troponin I High Sensitivity 397 Off scale high 0-15 [facility] Comment on above: Order Comment: PER R N PARDEEP AND FAMILY REQUEST PT IS AGGRESSIVE Result Comment: Crit ical Result : Called to and read back by: MAGDA BANUELOS/Yemi at: 03/14/2025 12:01:03 by:[id number] The Troponin units of report have been changed to meet the Chest Pain Accreditation requirement, element EC5.M1l2. Troponin units are changed from pg/ml to ng/L. Also, the decimal is removed and results are in whole numbers. PERFORMED BY: [place] [address] PATHOLOGIST [employer] M.D. Performed By: #### C BC, HS TROP #### [address] Troponin I High Sensitivity 403 Off scale high 0-15 [facility] Comment on above: Result Comment: Crit ical Result : Called to and read back by: BEVERLY GOMEZ at: 03/14/2025 01:01:41 by:[id number] The Troponin units of report have been changed to meet the Chest Pain Accreditation requirement, element EC5.M1l2. Troponin units are changed from pg/ml to ng/L. Also, the decimal is removed and results are in whole numbers. PERFORMED BY: [place] [address] PATHOLOGIST [employer] M.D. Performed By: #### H S TROP #### [facility] [address] [place], [place] [id number] [facility] Troponin I.cardiac [Mass/vol ume] in Serum or Plasma by Detection limit <= 0.01 ng/Ordered By: Magda Navarro on 03-14-2025 Troponin I.cardiac DL <= 0.01 ng/mL [Mass/Vol] Troponin I.cardiac [Mass/volume] in Serum or Plasma by Detection limit <= 0.01 ng/ Critically high 0-15 [facility] Comment on above: Critical Result : Ca lled to and read back by: MAGDA HONG at: 03/14/2025 12:01:03 by:[id number] Troponin units of report have been changed [...] Detection limit <= 0.01 ng/ Critically high 015 [facility] Comment on above: Critical Result : Ca lled to and read back by: BEVERLY GOMEZ at: 03/14/2025 01:01:41 by:[id number] Troponin units of report have been changed [...] 0.01 ng/mL [Mass/Vol] 397 ng/L Critically high [address] [place] [address] Comment on above: Critical Result : Ca lled to and read back by: MAGDA BANUELOS/Yemi at: 03/14/2025 12:01:03 by:[id number] Troponin units of report have been changed to meet the Chest Pain Accreditation requirement, element EC5.M1l2. Troponin units are changed from pg/ml to ng/L. Also, the decimal is removed and results are in whole numbers. WBC Auto (Bld) [#/Vol]Ordere d By: Magda Navarro on 03-14-2025 WBC (Bld) [#/Vol] Leukocytes [#/volume ] in Blood by Automated count 3.8-11.6 [facility] Appearance of UrineOrdered B y: Loraine Mccallum on 03-13-2025 Appearance (U) Urine appearance Clear [facility] Appearance (U) Clear Normal Clear [facility] Comment on above: Order Comment: Name Collection Type:: Clean-Voided Midstream Performed By: #### G LULS #### Point of Care testing , BNP ser/plasOrdered By: Mague Mccallum on 03-13-2025 Natriuretic peptide B (Bld) [Mass/Vol] 28.0 pg/mL Normal 5-100 [facility] Comment on above: Result Comment: PERF ORMED BY: [place] [address] PATHOLOGIST [employer] M.D. Performed By: #### M G #### [place] [address] [place] Bacteria [Presence] in Urine by AutomatedOrdered By: Loraine Mccallum on 03-13-2025 Bacteria Auto Ql (U) Bacteria [Presence] in Urine by Automated None Seen [facility] Bacteria Auto Ql (U) None seen [HPF] None Seen [facility] Basic Metabolic Panelon Creatinine Clr Calc Pharmacy 46.20 Normal [facility] Comment on above: Result Comment: PERF ORMED BY: [place] [address] PATHOLOGIST [employer] M.D. Performed By: #### M G #### [place] [address] [place] GFR/1.73 sq M.predicted MDRD (S/P/Bld) [Vol rate/Area] mL/min/{1.73_m2} Normal [facility] Comment on above: Performed By: #### M G #### [place] [address] [place] Basophils Auto (Bld) [#/Vol] Ordered By: Loraine Mccallum on 03-13-2025 Basophils (Bld) [#/Vol] Automated basophil count 0.0-0.2 [facility] Basophils/100 WBC Auto (Bld) Ordered By: Loraine Mccallum on 03-13-2025 Basophils/100 WBC (Bld) Automated basophil % . [facility] Bilirubin Test strip Ql (U)O rdered By: Loraine Mccallum on 03-13-2025 Bilirubin Ql (U) Bilirubin.total [Pre sence] in Urine by Test strip Negative [facility] Bilirubin Ql (U) Negative Negative [facility] BioFire Not Detectedon 03-13 BioFire Not Detected Not detected Normal Not Detecte [facility] Comment on above: Result Comment: This is a duplicate RP2.1 COVID (PCR) result to be used for statistical tracking purpose only. PERFORMED BY: [place] [address] PATHOLOGIST [employer] M.D. Performed By: #### R WIL PANEL UPP., BIOFIRECOVNOTDE #### [address] COVID-19 Detected/Not Detect edOrdered By: Loraine Mccallum on 03-13-2025 SARS-CoV-2 (COVID-19) RNA JAYRO+non-probe Ql (Nph) Not detected Not Detecte [facility] Comment on above: This is a duplicate RP2.1 COVID (PCR) result to be used for statistical tracking purpose only. CT head/brain wo conon 03-13 CT head/brain wo con [facility] [place] [address] CT Scan Report Signed Patient: Karuna Reynaga MR#: [id number] : 1945 Acct:[id number] Age/Sex: 80 / F ADM Date: 03/13/25 [...] Muñoz M.D. 03/13/2025 10:19 PM Dictation Location: [place] [address] Transcribed By: BERTA 03/13/252218 Dictated By: Jose Muñoz II, MD 03/13/252212 Signed By: 03/13/252218 Normal [facility] Calcium [Mass/volume] in Ser um or PlasmaOrdered By: Loraine Mccallum on 03-13-2025 Calcium [Mass/Vol] Calcium [Mass/volume ] in Serum or Plasma 8.6-10.3 [facility] Calcium [Mass/Vol] 9.6 mg/dL Normal 8.6-10.3 [facility] Comment on above: Performed By: #### M G #### [address] Carbon dioxide, total [Moles /volume] in Serum or PlasmaOrdered By: Loraine Mccallum on 03-13-2025 CO2 [Moles/Vol] Carbon dioxide, tota l [Moles/volume] in Serum or Plasma 21.0-31.0 [facility] CO2 [Moles/Vol] 28.5 mmol/L Normal 21.0-31.0 [facility] Comment on above: Performed By: #### M G #### [place] [id number] [facility] Chloride [Moles/volume] in S sun or PlasmaOrdered By: Loraine Mccallum on 03-13-2025 Chloride [Moles/Vol] Chloride [Moles/vol ume] in Serum or Plasma 98-107 [facility] Chloride [Moles/Vol] 102 mmol/L Normal 98-107 [facility] Comment on above: Performed By: #### M G #### [place] [address] [place] Color Auto (U)Ordered By: Josh Mccallum on 03-13-2025 Color (U) Color of Urine by Auto Yellow Fi [facility] Color of Urine by AutoOrdere d By: Loraine Mccallum on 03-13-2025 Color (U) Yellow Normal Yellow [facility] Comment on above: Order Comment: Name Collection Type:: Clean-Voided Midstream Performed By: #### G LULS #### Point of Care testing , Complete Blood Count Auto Di ffon 03-13-2025 Basophils (Bld) [#/Vol] 0.0 10*3/uL Normal 0.0-0.2 [facility] Comment on above: Result Comment: PERF ORMED BY: [place] [address] PATHOLOGIST [employer] M.D. Performed By: #### M G #### [place] [address] [place] Basophils/100 WBC (Bld) 0.7 % Normal . [facility] Comment on above: Performed By: #### M G #### [place] [address] [place] Eosinophils (Bld) [#/Vol] 0.1 10*3/uL Normal 0.0-0.45 [facility] Comment on above: Performed By: #### M G #### [place] [address] [place] Eosinophils/100 WBC (Bld) 1.1 % Normal . [facility] Comment on above: Performed By: #### M G #### [address] Erythrocyte distribution width (RBC) [Ratio] 13.6 % Normal 11.9-15.3 [facility] Comment on above: Performed By: #### M G #### [address] Hematocrit (Bld) [Volume fraction] 40.5 % Normal 34.0-46.4 [facility] Comment on above: Performed By: #### M G #### [address] Hemoglobin (Bld) [Mass/Vol] 13.5 g/dL Normal 11.8-15.4 [facility] Comment on above: Performed By: #### M G #### [address] Lymphocytes (Bld) [#/Vol] 1.3 10*3/uL Normal 1.00-4.8 [facility] Comment on above: Performed By: #### M G #### [address] Lymphocytes/100 WBC (Bld) 23.1 % Normal . [facility] Comment on above: Performed By: #### M G #### [address] MCH (RBC) [Entitic mass] 29.9 pg Normal 24.7-34.3 [facility] Comment on above: Performed By: #### M G #### [address] MCV (RBC) [Entitic vol] 89.5 fL Normal 80-100 [facility] Comment on above: Performed By: #### M G #### [address] Mean Corpuscular HGB Conc 33.5 g/dL Normal 32.0-35.0 [facility] Comment on above: Performed By: #### M G #### [address] Monocytes (Bld) [#/Vol] 0.5 10*3/uL Normal 0.0-0.8 [facility] Comment on above: Performed By: #### M G #### [place] [address] [place] Monocytes/100 WBC (Bld) 22.62 % High 0.00-20.00 [facility] Comment on above: Result Comment: For adults in ED, MDW > 20.0 may be associated with a higher risk of sepsis during the first 12 hrs of hospital admission Performed By: #### M G #### [address] Monocytes/100 WBC (Bld) 9.3 % Normal . [facility] Comment on above: Performed By: #### M G #### [address] Neutrophils (Bld) [#/Vol] 3.7 10*3/uL Normal 1.8-7.7 [facility] Comment on above: Performed By: #### M G #### [address] Neutrophils/100 WBC (Bld) 65.8 % Normal . [facility] Comment on above: Performed By: #### M G #### [address] NRBC% 0.1 /100{WBC} Normal 0-0.5 [facility] Comment on above: Performed By: #### M G #### [address] Platelet mean volume (Bld) [Entitic vol] 8.2 fL Normal 6.3-10.7 [facility] Comment on above: Performed By: #### M G #### [place] [address] [place] Platelets (Bld) [#/Vol] 206 10*3/uL Normal 150-450 [facility] Comment on above: Performed By: #### M G #### [place] [address] [place] RBC (Bld) [#/Vol] 4.52 10*6/uL Normal 3.60-5.00 [facility] Comment on above: Performed By: #### M G #### [facility] [address] [place] [id number] [facility] WBC (Bld) [#/Vol] 5.6 10*3/uL Normal 3.8-11.6 [facility] Comment on above: Performed By: #### M G #### [address] Creatinine [Mass/volume] in Serum or PlasmaOrdered By: Loraine Mccallum on 03-13-2025 Creatinine [Mass/Vol] Creatinine [Mass/v olume] in Serum or Plasma 0.60-1.20 [facility] Creatinine [Mass/Vol] 0.74 mg/dL Normal 0.60-1.20 [facility] Comment on above: Performed By: #### M G #### [facility] [address] [place], [place] [id number] [place] Crystals [Presence] in Urine by AutomatedOrdered By: Loraine Mccallum on 03-13-2025 Crystals Auto Ql (U) Crystals [Presence] in Urine by Automated [facility] Crystals Auto Ql (U) 2+ [HPF] [facility] D-Dimer High Sensitivityon 0 03-13-2025 D-Dimer High Sensitivity <200 Normal 0-243 [facility] Comment on above: Result [...] coagulation studies. Please contact the laboratory at [phone] for redraw instructions. PERFORMED BY: [place] [address] PATHOLOGIST [employer] M.D. Performed By: #### D DIMER #### [address] Dipstick and Microscopicon 0 03-13-2025 Bacteria,Urine None Seen Normal None Seen [facility] Comment on above: Order Comment: Name Collection Type:: Clean-Voided Midstream Performed By: #### G LULS #### Point of Care testing , Bilirubin,Urine Negative Normal Negative [facility] Comment on above: Order Comment: Name Collection Type:: Clean-Voided Midstream Performed By: #### G LULS #### Point of Care testing , Glucose Ql (U) Normal Normal Normal [facility] Comment on above: Order Comment: Name Collection Type:: Clean-Voided Midstream Performed By: #### G LULS #### Point of Care testing , Hyaline Casts,Urine None Normal 0-8 [facility] Comment on above: Order Comment: Name Collection Type:: Clean-Voided Midstream Performed By: #### G LULS #### Point of Care testing , Mucus,Urine Rare Normal [facility] Comment on above: Order Comment: Name Collection Type:: Clean-Voided Midstream Result Comment: PERF ORMED BY: [place] [address] PATHOLOGIST [employer] M.D. Performed By: #### G LULS #### Point of Care testing , Nitrite,Urine Negative Normal Negative [facility] Comment on above: Order Comment: Name Collection Type:: Clean-Voided Midstream Performed By: #### G LULS #### Point of Care testing , Occult Blood,Urine Trace High Negative [facility] Comment on above: Order Comment: Name Collection Type:: Clean-Voided Midstream Result Comment: PERF ORMED BY: [place] [address] PATHOLOGIST [employer] M.D. Performed By: #### G LULS #### Point of Care testing , Othe Crystals,Urine 2+ Normal [facility] Comment on above: Order Comment: Name Collection Type:: Clean-Voided Midstream Performed By: #### G LULS #### Point of Care testing , RBC,Urine 5-9 High 0-4 [facility] Comment on above: Order Comment: Name Collection Type:: Clean-Voided Midstream Performed By: #### G LULS #### Point of Care testing , Specificy [place],Urine 1.032 High 1.00 1-1.03 0 [facility] Comment on above: Order Comment: Name Collection Type:: Clean-Voided Midstream Performed By: #### G LULS #### Point of Care testing , Squamous Epithelial Cell,Urine 1-2 Normal 0-2 [facility] Comment on above: Order Comment: Name Collection Type:: Clean-Voided Midstream Performed By: #### G LULS #### Point of Care testing , Urobilinogen,Urine Normal Normal Normal [facility] Comment on above: Order Comment: Name Collection Type:: Clean-Voided Midstream Performed By: #### G LULS #### Point of Care testing , WBC,Urine 1-2 Normal 0-4 [facility] Comment on above: Order Comment: Name Collection Type:: Clean-Voided Midstream Performed By: #### G LULS #### Point of Care testing , ECG 12 lead ECGon 03-13-2025 ECG 12 [place] [address] Electrocardiograph Report Signed Patient: Karuna Reynaga MR#: [id number] : 1945 Acct:[id number] Age/Sex: 80 / F ADM Date: 03/13/25 [...] ms Normal sinus rhythm Confirmed by Loraine Mccalulm MD ([id number]) on 03/13/2025 9:36:55 PM Referred By: Electronically Signed By: Loraine Mccallum MD Transcribed By: MUS Signed By Loraine Mccallum MD 07/30 Normal [facility] Eosinophils Auto (Bld) [#/Vo l]Ordered By: Loraine Mccallum on 03-13-2025 Eosinophils (Bld) [#/Vol] Automated eosinophil count 0.0-0.45 [facility] Eosinophils/100 WBC Auto (Bl d)Ordered By: Loraine Mccallum on 03-13-2025 Eosinophils/100 WBC (Bld) Automated eosinophil % . [facility] Epithelial cells.squamous [# /area] in Urine sediment by Automated countOrdered By: Loraine Mccallum on 03-13-2025 Epithelial cells.squamous Auto (Urine sed) [#/Area] Epithelial cells.squamous [#/area] in Urine sediment by Automated count 0-2 [facility] Epithelial cells.squamous Auto (Urine sed) [#/Area] 1-2 [HPF] 0-2 [facility] Erythrocyte distribution wid th Auto (RBC) [Ratio]Ordered By: Loraine Mccallum on 03-13-2025 Erythrocyte distribution width (RBC) [Ratio] Erythrocyte distribution width [Ratio] by Automated count 11.9-15.3 [facility] Erythrocytes [#/area] in Uri ne sediment by Automated countOrdered By: Loraine Mccallum on 03-13-2025 RBC Auto (Urine sed) [#/Area] Erythrocytes [#/area] in Urine sediment by Automated count High 0-4 [facility] RBC Auto (Urine sed) [#/Area] 5-9 [HPF] High 0-4 [facility] Fibrin D-dimer [Presence] in Platelet poor plasma by Latex agglutinationOrdered By: Loraine Mccallum on 03-13-2025 Fibrin D-dimer LA Ql (PPP) Fibrin D-dimer [Presence] in Platelet poor plasma by Latex agglutination 0-243 [facility] Comment on above: The reference range for [...] coagulation studies. Please contact the laboratory at [phone] for redraw instructions. Fibrin D-dimer LA Ql (PPP) < 200 ng/mL 0-243 [facility] Comment on above: The reference range for [...] coagulation studies. Please contact the laboratory at [phone] for redraw instructions. Glucose [Mass/volume] in Ser um or PlasmaOrdered By: Loraine Mccallum on 03-13-2025 Glucose [Mass/Vol] Glucose [Mass/volume ] in Serum or Plasma High 70-100 [facility] Comment on above: ADA recommended refe rence rangeRandom Glucose Reference Range is dependent on time and content of last meal. Glucose of more than 200 mg/dL in a nonstressed, ambulatory subject supports the diagnosis of Diabetes Mellitus. Glucose [Mass/Vol] 116 mg/dL High 70-100 [facility] Comment on above: ADA recommended refe rence rangeRandom Glucose Reference Range is dependent on time and content of last meal. Glucose of more than 200 mg/dL in a nonstressed, ambulatory subject supports the diagnosis of Diabetes Mellitus. Result Comment: [place] om Glucose Reference Range is dependent on time and content of last meal. Glucose of more than 200 mg/dL in a nonstressed, ambulatory subject supports the diagnosis of Diabetes Mellitus. ADA recommended reference range Performed By: #### M G #### [address] Glucose [Mass/volume] in Uri ne by Test stripOrdered By: Loraine Mccallum on 03-13-2025 Glucose Test strip (U) [Mass/Vol] Glucose [Mass/volume] in Urine by Test strip Normal [facility] Glucose Test strip (U) [Mass/Vol] Normal mg/dL Normal [facility] Hematocrit Auto (Bld) [Volum e fraction]Ordered By: Loraine Mccallum on 03-13-2025 Hematocrit (Bld) [Volume fraction] Hematocrit [Volume Fraction] of Blood by Automated count 34.0-46.4 [facility] Hemoglobin Test strip Ql (U) Ordered By: Loraine Mccallum on 03-13-2025 Hemoglobin Ql (U) Hemoglobin [Presence ] in Urine by Test strip High Negative [facility] Hemoglobin Ql (U) Trace High Negative [facility] Hemoglobin [Mass/volume] in BloodOrdered By: Loraine Mccallum on 03-13-2025 Hemoglobin (Bld) [Mass/Vol] Hemoglobin [Mass/volume] in Blood 11.8-15.4 [facility] Hyaline casts [#/area] in Ur ine sediment by Automated countOrdered By: Loraine Mccallum on 03-13-2025 Hyaline casts Auto (Urine sed) [#/Area] Hyaline casts [#/area] in Urine sediment by Automated count 0-8 [facility] Hyaline casts Auto (Urine sed) [#/Area] None [LPF] 0-8 [facility] Ketones Test strip Ql (U)Ord ered By: Loraine Mccallum on 03-13-2025 Ketones Ql (U) Ketones [Presence] i n Urine by Test strip Negative [facility] Ketones [Presence] in Urine by Test stripOrdered By: Loraine Mccallum on 03-13-2025 Ketones Ql (U) Negative Normal Negative [facility] Comment on above: Order Comment: Name Collection Type:: Clean-Voided Midstream Performed By: #### G LULS #### Point of Care testing , Leukocyte esterase [Presence ] in Urine by Test stripOrdered By: Loraine Mccallum on 03-13-2025 Leukocyte esterase Test strip Ql (U) Leukocyte esterase [Presence] in Urine by Test strip Negative [facility] Leukocyte esterase Test strip Ql (U) Negative Normal Negative [facility] Comment on above: Order Comment: Name Collection Type:: Clean-Voided Midstream Performed By: #### G LULS #### Point of Care testing , Leukocytes [#/area] in Urine sediment by Automated countOrdered By: Loraine Mccallum on 03-13-2025 WBC Auto (Urine sed) [#/Area] Leukocytes [#/area] in Urine sediment by Automated count 0-4 [facility] WBC Auto (Urine sed) [#/Area] 1-2 [HPF] 0-4 [facility] Leukocytes [#/volume] correc rob for nucleated erythrocytes in Blood by Automated counOrdered By: Loraine Mccallum on 03-13-2025 WBC corrected for nucl RBC Auto (Bld) [#/Vol] Leukocytes [#/volume] corrected for nucleated erythrocytes in Blood by Automated coun 3.8-11.6 [facility] Lymphocytes Auto (Bld) [#/Vo l]Ordered By: Loraine Mccallum on 03-13-2025 Lymphocytes (Bld) [#/Vol] Lymphocytes [#/volume] in Blood by Automated count 1.00-4.8 [facility] Lymphocytes/100 WBC Auto (Bl d)Ordered By: Loraine Mccallum on 03-13-2025 Lymphocytes/100 WBC (Bld) Lymphocytes/100 leukocytes in Blood by Automated count . [facility] MCH Auto (RBC) [Entitic mass ]Ordered By: Loraine Mccallum on 03-13-2025 MCH (RBC) [Entitic mass] MCH [Entitic mass] by Automated count 24.7-34.3 [facility] MCHC Auto (RBC) [Mass/Vol]Or dered By: Loraine Mccallum on 03-13-2025 MCHC (RBC) [Mass/Vol] MCHC [Mass/volume] by Automated count 32.0-35.0 [facility] MCV Auto (RBC) [Entitic vol] Ordered By: Loraine Mccallum on 03-13-2025 MCV (RBC) [Entitic vol] MCV [Entitic vol ume] by Automated count 80-100 [facility] Monocyte distribution width [Entitic volume] in Blood by AutomatedOrdered By: Loraine Mccallum on 03-13-2025 Monocyte distribution width Auto (Bld) [Entitic vol] Monocyte distribution width [Entitic volume] in Blood by Automated High 0.00-20.00 [facility] Comment on above: For adults in ED, MD W > 20.0 may be associated with a higher risk of sepsis during the first 12 hrs of hospital admission Monocytes Auto (Bld) [#/Vol] Ordered By: Loraine Mccallum on 03-13-2025 Monocytes (Bld) [#/Vol] Automated blood monocyte count 0.0-0.8 [facility] Monocytes/100 WBC Auto (Bld) Ordered By: Loraine Mccallum on 03-13-2025 Monocytes/100 WBC (Bld) Automated monocyte % . [facility] Mucus [Presence] in Urine by AutomatedOrdered By: Loraine Mccallum on 03-13-2025 Mucus Auto Ql (U) Mucus [Presence] in Urine by Automated [facility] Mucus Auto Ql (U) Rare [LPF] [facility] Natriuretic peptide B [Mass/ Vol]Ordered By: Loraine Mccallum on 03-13-2025 Natriuretic peptide B (Bld) [Mass/Vol] BNP ser/plas 5-100 [facility] Neutrophils Auto (Bld) [#/Vo l]Ordered By: Loraine Mccallum on 03-13-2025 Neutrophils (Bld) [#/Vol] Neutrophils [#/volume] in Blood by Automated count 1.8-7.7 [facility] Neutrophils/100 WBC Auto (Bl d)Ordered By: Loraine Mccallum on 03-13-2025 Neutrophils/100 WBC (Bld) Automated neutrophil % . [facility] Nitrite Test strip Ql (U)Ord ered By: Loraine Mccallum on 03-13-2025 Nitrite Ql (U) Nitrite [Presence] i n Urine by Test strip Negative [facility] Nitrite Ql (U) Negative Negative [facility] No Panel InformationOrdered By: Loraine Mccallum on 03-13-2025 Estimated GFR (CKD-EPI) > 60.0 mL/Min [facility] Creatinine Clearance (Chem 46.20 [facility] Nucleated erythrocytes [Pres ence] in Blood by Automated countOrdered By: Loraine Mccallum on 03-13-2025 Nucleated RBC Auto Ql (Bld) Nucleated erythrocytes [Presence] in Blood by Automated count 0-0.5 [facility] Platelet mean volume Auto (B ld) [Entitic vol]Ordered By: Loraine Mccallum on 03-13-2025 Platelet mean volume (Bld) [Entitic vol] Platelet mean volume [Entitic volume] in Blood by Automated count 6.3-10.7 [facility] Platelets Auto (Bld) [#/Vol] Ordered By: Loraine Mccallum on 03-13-2025 Platelets (Bld) [#/Vol] Platelets [#/vol ume] in Blood by Automated count 150-450 [facility] Potassium [Moles/volume] in Serum or PlasmaOrdered By: Loraine Mccallum on 03-13-2025 Potassium [Moles/Vol] Potassium [Moles/v olume] in Serum or Plasma 3.5-5.1 [facility] Potassium [Moles/Vol] 3.7 mmol/L Normal 3.5-5.1 [facility] Comment on above: Performed By: #### M G #### [address] Protein Test strip (U) [Mass /Vol]Ordered By: Loraine Mccallum on 03-13-2025 Protein (U) [Mass/Vol] Protein [Mass/vol ume] in Urine by Test strip High Negative [facility] Protein [Mass/volume] in Uri ne by Test stripOrdered By: Loraine Mccallum on 03-13-2025 Protein (U) [Mass/Vol] 30 mg/dL High Negative [facility] Comment on above: Order Comment: Name Collection Type:: Clean-Voided Midstream Performed By: #### G BALJEET #### Point of Care testing , RBC Auto (Bld) [#/Vol]Ordere d By: Loraine Mccallum on 03-13-2025 RBC (Bld) [#/Vol] Erythrocytes [#/volu me] in Blood by Automated count 3.60-5.00 [facility] Respiratory (Upper) Panel, P CRon 03-13-2025 Respiratory [...] A H3 Blank Space -- PERFORMED BY: [facility] [address] [place] [address] PATHOLOGIST [employer] M.D. Normal [facility] Comment on above: Performed By: #### R WIL PANEL UPP., BIOFIRECOVNOTDE #### [facility] [address] [place] [address] [facility] Respiratory pathogens DNA an d RNA panel - Nasopharynx by JAYRO with non-probe detectionOrdered By: Loraine Mccallum on 03-13-2025 Respiratory pathogens DNA and RNA panel JAYRO+non-probe (Nph) Respiratory pathogens DNA and RNA panel - Nasopharynx by JAYRO with non-probe detection [facility] Respiratory pathogens DNA and RNA panel JAYRO+non-probe (Nph) [facility] Serum or plasma anion gap de terminationOrdered By: Loraine Mccallum on 03-13-2025 Anion gap [Moles/Vol] Serum or plasma an ion gap determination 6.0-15.0 [facility] Anion gap [Moles/Vol] 11.2 mmol/L Normal 6.0-15.0 [facility] Comment on above: Performed By: #### M G #### [address] Sodium [Moles/volume] in Ser um or PlasmaOrdered By: Loraine Mccallum on 03-13-2025 Sodium [Moles/Vol] Sodium [Moles/volume ] in Serum or Plasma 136-145 [facility] Sodium [Moles/Vol] 138 mmol/L Normal 136-145 [facility] Comment on above: Performed By: #### M G #### [facility] [address] [place] [address] Specific gravity Test strip (U) [Rel density]Ordered By: Loraine Mccallum on 03-13-2025 Specific gravity (U) [Rel density] Specific gravity of Urine by Test strip High 1.001-1.03 0 [facility] Specific gravity (U) [Rel density] 1.032 High 1.001-1.03 0 [facility] Troponin I High Sensitivityo n 03-13-2025 Troponin I High Sensitivity 437 Off scale high 0-15 [facility] Comment on above: Result Comment: Crit ical Result : Called to and read back by: ULI LOPES at: 03/13/2025 23:56:50 by:[id number] The Troponin units of report have been changed to meet the Chest Pain Accreditation requirement, element EC5.M1l2. Troponin units are changed from pg/ml to ng/L. Also, the decimal is removed and results are in whole numbers. PERFORMED BY: [place] [address] PATHOLOGIST [employer] M.D. Performed By: #### M G #### [facility] [address] [place] [address] Urea nitrogen [Mass/volume] in Serum or PlasmaOrdered By: Loraine Mccallum on 03-13-2025 Urea nitrogen [Mass/Vol] Urea nitrogen [Mass/volume] in Serum or Plasma High 7-25 [facility] Urea nitrogen [Mass/Vol] 26 mg/dL High 7-25 [facility] Comment on above: Performed By: #### M G #### [address] Urine Cultureon 03-13-2025 Bacteria identified Cx Nom (U) >100,000 colonies/ml mixed bacterial skin contaminants 2 Days PERFORMED BY: [place] [address] PATHOLOGIST [employer] M.D. Normal [facility] Comment on above: Performed By: #### M G #### [facility] [address] [place] [address] Urine cultureOrdered By: Brandon Mccallum on 03-13-2025 Bacteria identified Cx Nom (U) 2 Days [facility] Urobilinogen Test strip (U) [Mass/Vol]Ordered By: Loraine Mccallum on 03-13-2025 Urobilinogen (U) [Mass/Vol] Urobilinogen [Mass/volume] in Urine by Test strip Normal [facility] Urobilinogen (U) [Mass/Vol] Normal mg/dL Normal [facility] WBC Auto (Bld) [#/Vol]Ordere d By: Loraine Mccallum on 03-13-2025 WBC (Bld) [#/Vol] Leukocytes [#/volume ] in Blood by Automated count 3.8-11.6 [facility] X-ray reportOrdered By: Jose Muñoz on 03-13-2025 Study report [facility] [place] [address] XRay Report Signed Patient: Karuna Reynaga MR#: [id number] : 1945 Acct:[id number] Age/Sex: 80 / F ADM Date: 5 Loc: ER Room: Type: PRE ER Attending Dr: Copies to: CODY Rizzo, PROVIDER~ Ordering Provider: Ed Canales PA-C Date [...] Muñoz M.D. 03/13/2025 7:19 PM Dictation Location: [place] [address] Transcribed By: [facility] 03/13/251918 Dictated By: Jose Muñoz II, MD 03/13/251917 Signed By: 03/13/251918 [facility] Work Phone: XR chest 2V*on 03-13-2025 XR chest 2V* [facility] Main [place] [address] [place] [id number] XRay Report Signed Patient: Karuna Reynaga MR#: [id number] : 1945 Acct:[id number] Age/Sex: 80 / F ADM Date: 03/13/25 Loc: ER Room: Type: PRE ER Attending Dr: Copies to: CODY Rizzo, PROVIDER Ordering Provider: Ed Canales PA-C Date [...] Muñoz M.D. 03/13/2025 7:19 PM Dictation Location: [place] [address] Transcribed By: BERTA 03/13/251918 Dictated By: Jose Muñoz II, MD 03/13/251917 Signed By: 03/13/251918 Normal [facility] pH Test strip (U)Ordered By: Loraine Mccallum on 03-13-2025 pH (U) pH of Urine by Test strip 5.0-9.0 [facility] pH of Urine by Test stripOrd ered By: Loraine Mccallum on 03-13-2025 pH (U) 5.5 [pH] Normal 5.0-9.0 [facility] Comment on above: Order Comment: Name Collection Type:: Clean-Voided Midstream Performed By: #### G LULS #### Point of Care testing , Urine Cultureon 02-25-2025 Bacteria identified Cx Nom (U) 10,000 colonies/ml mixed bacterial skin contaminants 2 Days PERFORMED BY: [place] [address] PATHOLOGIST [employer] M.D. Normal [facility] Comment on above: Performed By: #### M G #### [address] Urine cultureOrdered By: Shahzad Alvarez on 02-25-2025 Bacteria identified Cx Nom (U) Urine culture [facility] Bacteria identified Cx Nom (U) 2 Days [facility] Hemoglobin a1c with eagon Glucose [Mass/Vol] 126 mg/dL [facility] HbA1c (Bld) [Mass fraction] 6 % High 4.3 - 5.6 % [facility] Comment on above: Increased risk for d iabetes: 5.7 - 6.4 diabetes: >6.4 glycemic control for adults with diabetes: <7.0 Interpretation and review of laboratory results Abnormal [facility] A1C with Estimated Average G melvinn 02-06-2025 Glucose [Mass/Vol] 126 mg/dL Normal [facility] Comment on above: Result Comment: PERF ORMED BY: [place] [address] PATHOLOGIST [employer] M.D. Performed By: #### M G #### [address] Alanine aminotransferase [En zymatic activity/volume] in Serum or PlasmaOrdered By: Jamal Alvarez on 02-06-2025 ALT [Catalytic activity/Vol] Alanine aminotransferase [Enzymatic activity/volume] in Serum or Plasma 7 [facility] ALT [Catalytic activity/Vol] 15 U/L Normal [facility] Comment on above: Performed By: #### C BC, HS TROP #### [facility] [address] [place] [address] Albumin [Mass/volume] in Ser um or Plasma by Bromocresol green (BCG) dye binding methoOrdered By: Jamal Alvarez on 02-06-2025 Albumin BCG dye [Mass/Vol] Albumin [Mass/volume] in Serum or Plasma by Bromocresol green (BCG) dye binding metho 3.5-5.7 [facility] Albumin BCG dye [Mass/Vol] 4.2 g/dL 3.5-5.7 [facility] Alkaline phosphatase [Enzyma tic activity/volume] in Serum or PlasmaOrdered By: Jamal Alvarez on 02-06-2025 ALP [Catalytic activity/Vol] Alkaline phosphatase [Enzymatic activity/volume] in Serum or Plasma 34-104 [facility] ALP [Catalytic activity/Vol] 64 U/L Normal 34-104 [facility] Comment on above: Performed By: #### C BC, HS TROP #### [facility] [address] [place] [address] [place] Aspartate aminotransferase [ Enzymatic activity/volume] in Serum or PlasmaOrdered By: Jamal Alvarez on 02-06-2025 AST [Catalytic activity/Vol] Aspartate aminotransferase [Enzymatic activity/volume] in Serum or Plasma [facility] AST [Catalytic activity/Vol] 16 U/L Normal [facility] Comment on above: Performed By: #### C BC, HS TROP #### [facility] [address] Basophils Auto (Bld) [#/Vol] Ordered By: Jamal Alvarez on 02-06-2025 Basophils (Bld) [#/Vol] Automated basophil count 0.0-0.2 [facility] Basophils [#/volume] in Bloo d by Automated countOrdered By: Jamal Alvarez on 02-06-2025 Basophils (Bld) [#/Vol] 0.1 10*3/uL Normal 0.0-0.2 [facility] Comment on above: Result Comment: PERF ORMED BY: [place] [address] PATHOLOGIST [employer] M.D. Performed By: #### C BC, HS TROP #### [facility] [address] Basophils/100 WBC Auto (Bld) Ordered By: Jamal Alvarez on 02-06-2025 Basophils/100 WBC (Bld) Automated basophil % . [facility] Basophils/100 leukocytes in Blood by Automated countOrdered By: Jamal Alvarez on 02-06-2025 Basophils/100 WBC (Bld) 0.9 % Normal . [facility] Comment on above: Performed By: #### C BC, HS TROP #### [facility] [address] [place] [address] [place] Bilirubin.total [Mass/volume ] in Serum or PlasmaOrdered By: Jamal Alvarez on 02-06-2025 Bilirubin [Mass/Vol] Bilirubin.total [Mass/volume] in Serum or Plasma 0.3-1.0 [facility] Bilirubin [Mass/Vol] 0.4 mg/dL Normal 0.3-1.0 [facility] Comment on above: Performed By: #### C BC, HS TROP #### [facility] [address] [place] [id number] [facility] Blood estimated average gluc ose determination by estimation from glycated hemoglobinOrdered By: JOSE LUIS LOCKHART on 02-06-2025 Average glucose Estimated from glycated hemoglobin (Bld) [Mass/Vol] Glucose mean value [Mass/volume] in Blood Estimated from glycated hemoglobin [facility] [facility] Average glucose Estimated from glycated hemoglobin (Bld) [Mass/Vol] 126 mg/dL [facility] CBC W Auto Differential pane l (Bld)on 02-06-2025 Basophils (Bld) [#/Vol] 0.1 10*3/uL 0.0 - 0.2 10*3/uL [facility] Basophils/100 WBC Manual cnt (Syn fld) 0.9 % . [facility] Eosinophils (Bld) [#/Vol] 0.3 10*3/uL 0.0 - 0.45 10*3/uL [facility] Eosinophils/100 WBC Manual cnt (Syn fld) 4.4 % . [facility] Erythrocyte distribution width (RBC) [Ratio] 13.2 % 11.9 - 15.3 % [facility] Hematocrit (Bld) [Volume fraction] 40.2 % 34.0 - 46.4 % [facility] Hemoglobin (Bld) [Mass/Vol] 13.4 g/dL 11.8 - 15.4 g/dL [facility] Lymphocytes (Bld) [#/Vol] 1.8 10*3/uL 1.00 - 4.8 10*3/uL [facility] Lymphocytes/100 WBC Manual cnt (Syn fld) 29.1 % . [facility] MCH (RBC) [Entitic mass] 29.9 pg 24.7 - 34.3 pg [facility] MCHC (RBC) [Mass/Vol] 33.4 g/dL 32.0 - 35.0 g/dL [facility] MCV (RBC) [Entitic vol] 89.7 fL 80 - 100 fL [facility] Monocytes (Bld) [#/Vol] 0.3 10*3/uL 0.0 - 0.8 10*3/uL [facility] Monocytes+Macrophages/1 00 WBC Manual cnt (Syn fld) 4.9 % . [facility] Neutrophils (Bld) [#/Vol] 3.8 10*3/uL 1.8 - 7.7 10*3/uL [facility] Neutrophils/100 WBC Manual cnt (Syn fld) 60.7 % . [facility] 0.1 /100{WBC} 0 - 0.5 /100{WBC} [facility] Platelet mean volume (Bld) [Entitic vol] 8.6 fL 6.3 - 10.7 fL [facility] Platelets (Bld) [#/Vol] 264 10*3/uL 150 - 450 10*3/uL [facility] RBC LM.HPF (Urine sed) [#/Area] 4.48 10*6/uL 3.60 - 5.00 10*6/uL [facility] WBC (Bld) [#/Vol] 6.3 10*3/uL 3.8 - 11.6 10*3/uL [facility] WBC LM.HPF (Urine sed) [#/Area] 6.3 10*3/uL 3.8 - 11.6 10*3/uL [facility] Calcium [Mass/volume] in Ser um or PlasmaOrdered By: Jamal Alvarez on 02-06-2025 Calcium [Mass/Vol] Calcium [Mass/volume ] in Serum or Plasma 8.6-10.3 [facility] Calcium [Mass/Vol] 9.3 mg/dL Normal 8.6-10.3 [facility] Comment on above: Performed By: #### C BC, HS TROP #### [address] Carbon dioxide, total [Moles /volume] in Serum or PlasmaOrdered By: Jamal Alvarez on 02-06-2025 CO2 [Moles/Vol] Carbon dioxide, tota l [Moles/volume] in Serum or Plasma 21.0-31.0 [facility] CO2 [Moles/Vol] 30.4 mmol/L Normal 21.0-31.0 [facility] Comment on above: Performed By: #### C BC, HS TROP #### [facility] [address] [place] [address] [place] Chloride [Moles/volume] in S sun or PlasmaOrdered By: Jamal Alvarez on 02-06-2025 Chloride [Moles/Vol] Chloride [Moles/vol ume] in Serum or Plasma 98-107 [facility] Chloride [Moles/Vol] 103 mmol/L Normal 98-107 [facility] Comment on above: Performed By: #### C BC, HS TROP #### [facility] [address] [place] [id number] [place] Cholesterol [Mass/volume] in Serum or PlasmaOrdered By: Jamal Alvarez on 02-06-2025 Cholesterol [Mass/Vol] Cholesterol [Mass /volume] in Serum or Plasma 140-200 [facility] Comment on above: Chol less than 200 m g/dl low riskChol 201-239 mg/dl borderline riskChol 240 mg/dl and greater high risk Cholesterol [Mass/Vol] 175 mg/dL Normal 140-200 [facility] Comment on above: Chol less than 200 m g/dl low riskChol 201-239 mg/dl borderline riskChol 240 mg/dl and greater high risk Result Comment: Chol less than 200 mg/dl low risk Chol 201-239 mg/dl borderline risk Chol 240 mg/dl and greater high risk Performed By: #### C BC, HS TROP #### [facility] [address] [place] [id number] [place] Cholesterol in HDL [Mass/vol ume] in Serum or PlasmaOrdered By: Jamal Alvarez on 02-06-2025 Cholesterol in HDL [Mass/Vol] Serum or plasma high density lipoprotein (HDL) cholesterol measurement [facility] Comment on above: HDL CHOL ATP-III CLA SSIFICATION Cardiovascular RiskHDL > or equal to 60 mg/dL LOWHDL < 40 mg/dL HIGH Cholesterol in HDL [Mass/Vol] 72 mg/dL Normal - [facility] Comment on above: HDL CHOL ATP-III CLA SSIFICATION Cardiovascular RiskHDL > or equal to 60 mg/dL LOWHDL < 40 mg/dL HIGH Result Comment: HDL CHOL ATP-III CLASSIFICATION Cardiovascular Risk HDL > or equal to 60 mg/dL LOW HDL < 40 mg/dL HIGH Performed By: #### C BC, HS TROP #### [facility] [address] Cholesterol in LDL Calc [Mas s/Vol]Ordered By: Jamal Alvarez on 02-06-2025 Cholesterol in LDL [Mass/Vol] Cholesterol in LDL [Mass/volume] in Serum or Plasma by calculation 0-100 [facility] Comment on above: LDL ATP III CLASSIFI CATIONLDL less than 100 mg/dL OptimalLDL 100-129 mg/dL Near or above optimalLDL 130-159 mg/dL Borderline highLDL 160-189 mg/dL HighLDL greater than 189 mg/dL Very high Cholesterol in LDL [Mass/Vol] 84 mg/dL 0-100 [facility] Comment on above: LDL ATP III CLASSIFI CATIONLDL less than 100 mg/dL OptimalLDL 100-129 mg/dL Near or above optimalLDL 130-159 mg/dL Borderline highLDL 160-189 mg/dL HighLDL greater than 189 mg/dL Very high Cholesterol in VLDL Calc [Ma ss/Vol]Ordered By: Jamal Alvarez on 02-06-2025 Cholesterol in VLDL [Mass/Vol] Cholesterol in VLDL [Mass/volume] in Serum or Plasma by calculation [facility] Cholesterol in VLDL [Mass/Vol] 18 mg/dL [facility] Complete Blood Count Auto Di ffon 02-06-2025 Mean Corpuscular HGB Conc 33.4 g/dL Normal 32.0-35.0 [facility] Comment on above: Performed By: #### C BC, HS TROP #### [facility] [address] NRBC% 0.1 /100{WBC} Normal 0-0.5 [facility] Comment on above: Performed By: #### C BC, HS TROP #### [facility] [address] Comprehensive Metabolic Pane aureliano 02-06-2025 Albumin [Mass/Vol] 4.2 g/dL Normal 3.5-5.7 [facility] Comment on above: Performed By: #### C BC, HS TROP #### [facility] [address] [place] [address] [facility] GFR/1.73 sq M.predicted MDRD (S/P/Bld) [Vol rate/Area] mL/min/{1.73_m2} Normal [facility] Comment on above: Performed By: #### C BC, HS TROP #### [facility] [address] [place] [address] [facility] Comprehensive metabolic pane aureliano 02-06-2025 Albumin [Mass/Vol] 4.2 g/dL 3.5 - 5.7 g/dL [facility] Albumin/Globulin [Mass ratio] 1.4 {ratio} [facility] ALP [Catalytic activity/Vol] 64 U/L 34 - 104 U/L [facility] ALT [Catalytic activity/Vol] 15 U/L 7 - 52 U/L [facility] Anion gap [Moles/Vol] 10.9 mmol/L 6.0 - 15.0 meq/L [facility] AST [Catalytic activity/Vol] 16 U/L 13 - 39 U/L [facility] Bilirubin [Mass/Vol] 0.4 mg/dL 0.3 - 1 .0 mg/dL [facility] Calcium [Mass/Vol] 9.3 mg/dL 8.6 - 10. 3 mg/dL [facility] Chloride [Moles/Vol] 103 mmol/L 98 - 10 7 mmol/L [facility] CO2 [Moles/Vol] 30.4 mmol/L 21.0 - 31.0 mmol/L [facility] Creatinine (U) [Mass/Vol] 0.67 mg/dL 0.60 - 1.20 mg/dL [facility] ESTIMATED GFR mL/Min [facility] Globulin (S) [Mass/Vol] 2.9 g/dL [facility] Glucose [Mass/Vol] 96 mg/dL 70 - 100 mg/dL [facility] Comment on above: Random Glucose Refer ence Range is dependent on time and content of last meal. Glucose of more than 200 mg/dL in a nonstressed, ambulatory subject supports the diagnosis of Diabetes Mellitus. ADA recommended reference range Potassium [Moles/Vol] 4.3 mmol/L 3.5 - 5.1 mmol/L [facility] Protein [Mass/Vol] 7.1 g/dL 6.4 - 8.9 g/dL [facility] Sodium [Moles/Vol] 140 mmol/L 136 - 145 mmol/L [facility] Urea nitrogen [Mass/Vol] 17 mg/dL 7 - 25 mg/dL [facility] Creatinine [Mass/volume] in Serum or PlasmaOrdered By: Jamal Alvarez on 02-06-2025 Creatinine [Mass/Vol] Creatinine [Mass/v olume] in Serum or Plasma 0.60-1.20 [facility] Creatinine [Mass/Vol] 0.67 mg/dL Normal 0.60-1.20 [facility] Comment on above: Performed By: #### C BC, HS TROP #### [facility] [address] Creatinine [Mass/volume] in UrineOrdered By: Jamal Alvarez on 02-06-2025 Creatinine (U) [Mass/Vol] Creatinine [Mass/volume] in Urine [facility] Comment on above: No reference range e stablished Creatinine (U) [Mass/Vol] 52.00 mg/dL [facility] Comment on above: No reference range e stablished Eosinophils Auto (Bld) [#/Vo l]Ordered By: Jamal Alvarez on 02-06-2025 Eosinophils (Bld) [#/Vol] Automated eosinophil count 0.0-0.45 [facility] Eosinophils [#/volume] in Bl ood by Automated countOrdered By: Jamal Alvarez on 02-06-2025 Eosinophils (Bld) [#/Vol] 0.3 10*3/uL Normal 0.0-0.45 [facility] Comment on above: Performed By: #### C BC, HS TROP #### [facility] [address] [place] [address] [place] Eosinophils/100 WBC Auto (Bl d)Ordered By: Jamal Alvarez on 02-06-2025 Eosinophils/100 WBC (Bld) Automated eosinophil % . [facility] Eosinophils/100 leukocytes i n Blood by Automated countOrdered By: Jamal Alvarez on 02-06-2025 Eosinophils/100 WBC (Bld) 4.4 % Normal . [facility] Comment on above: Performed By: #### C BC, HS TROP #### [facility] [address] [place] [id number] [facility] Erythrocyte distribution wid th Auto (RBC) [Ratio]Ordered By: Jamal Alvarez on 02-06-2025 Erythrocyte distribution width (RBC) [Ratio] Erythrocyte distribution width [Ratio] by Automated count 11.9-15.3 [facility] Erythrocyte distribution wid th [Ratio] by Automated countOrdered By: Jamal Alvarez on 02-06-2025 Erythrocyte distribution width (RBC) [Ratio] 13.2 % Normal 11.9-15.3 [facility] Comment on above: Performed By: #### C BC, HS TROP #### [facility] [address] Erythrocytes [#/volume] in B lood by Automated countOrdered By: Jamal Alvarez on 02-06-2025 RBC (Bld) [#/Vol] 4.48 10*6/uL Normal 3.60-5.00 [facility] Comment on above: Performed By: #### C BC, HS TROP #### [facility] [address] [place] [id number] [facility] Globulin Calc (S) [Mass/Vol] Ordered By: Jamal Alvarez on 02-06-2025 Globulin (S) [Mass/Vol] Serum globulin m easurement by calculation (mass/volume) [facility] Glucose [Mass/volume] in Ser um or PlasmaOrdered By: Jamal Alvarez on 02-06-2025 Glucose [Mass/Vol] Glucose [Mass/volume ] in Serum or Plasma 70-100 [facility] Comment on above: ADA recommended refe rence rangeRandom Glucose Reference Range is dependent on time and content of last meal. Glucose of more than 200 mg/dL in a nonstressed, ambulatory subject supports the diagnosis of Diabetes Mellitus. Glucose [Mass/Vol] 96 mg/dL Normal 70-100 [facility] Comment on above: ADA recommended refe rence rangeRandom Glucose Reference Range is dependent on time and content of last meal. Glucose of more than 200 mg/dL in a nonstressed, ambulatory subject supports the diagnosis of Diabetes Mellitus. Result Comment: [place] om Glucose Reference Range is dependent on time and content of last meal. Glucose of more than 200 mg/dL in a nonstressed, ambulatory subject supports the diagnosis of Diabetes Mellitus. ADA recommended reference range Performed By: #### C BC, HS TROP #### [facility] [address] Hematocrit Auto (Bld) [Volum e fraction]Ordered By: Jamal Alvarez on 02-06-2025 Hematocrit (Bld) [Volume fraction] Hematocrit [Volume Fraction] of Blood by Automated count 34.0-46.4 [facility] Hematocrit [Volume Fraction] of Blood by Automated countOrdered By: Jamal Alvarez on 02-06-2025 Hematocrit (Bld) [Volume fraction] 40.2 % Normal 34.0-46.4 [facility] Comment on above: Performed By: #### C BC, HS TROP #### [facility] [address] Hemoglobin A1c/Hemoglobin.to maty in BloodOrdered By: JOSE LUIS LOCKHART on 02-06-2025 HbA1c (Bld) [Mass fraction] Hemoglobin A1c percentage High 4.3-5.6 [facility] Comment on above: Increased risk for d iabetes: 5.7 - 6.4diabetes: >6.4glycemic control for adults with diabetes: <7.0 HbA1c (Bld) [Mass fraction] 6.0 % High 4.3-5.6 [facility] Comment on above: Increased risk for d iabetes: 5.7 - 6.4diabetes: >6.4glycemic control for adults with diabetes: <7.0 Result Comment: Incr eased risk for diabetes: 5.7 - 6.4 diabetes: >6.4 glycemic control for adults with diabetes: <7.0 Performed By: #### M G #### [facility] [address] [place] [address] [place] Hemoglobin [Mass/volume] in BloodOrdered By: Jamal Alvarez on 02-06-2025 Hemoglobin (Bld) [Mass/Vol] Hemoglobin [Mass/volume] in Blood 11.8-15.4 [facility] Hemoglobin (Bld) [Mass/Vol] 13.4 g/dL Normal 11.8-15.4 [facility] Comment on above: Performed By: #### C BC, HS TROP #### [facility] [address] Leukocytes [#/volume] correc rob for nucleated erythrocytes in Blood by Automated counOrdered By: Jamal Alvarez on 02-06-2025 WBC corrected for nucl RBC Auto (Bld) [#/Vol] Leukocytes [#/volume] corrected for nucleated erythrocytes in Blood by Automated coun 3.8-11.6 [facility] WBC corrected for nucl RBC Auto (Bld) [#/Vol] 6.3 10*3/uL 3.8-11.6 [facility] Leukocytes [#/volume] in Blo od by Automated countOrdered By: Jamal Alvarez on 02-06-2025 WBC (Bld) [#/Vol] 6.3 10*3/uL Normal 3.8-11.6 [facility] Comment on above: Performed By: #### C BC, HS TROP #### [facility] [address] Lipid 1996 panelon 5 Cholesterol [Mass/Vol] 175 mg/dL 140 - 200 mg/dL [facility] Comment on above: Chol less than 200 m g/dl low risk Chol 201-239 mg/dl borderline risk Chol 240 mg/dl and greater high risk Cholesterol in HDL [Mass/Vol] 72 mg/dL 23 - 92 mg/dL [facility] Comment on above: HDL CHOL ATP-III CLA SSIFICATION Cardiovascular Risk HDL > or equal to 60 mg/dL LOW HDL < 40 mg/dL HIGH Cholesterol.total/[place] sterol in HDL [Mass ratio] 2.4 {ratio} NINF - 5.0 [facility] LDL CHOLESTEROL,CALCULATED 84 mg/dL 0 - 100 mg/dL [facility] Comment on above: LDL ATP III CLASSIFI CATION LDL less than 100 mg/dL Optimal LDL 100-129 mg/dL Near or above optimal LDL 130-159 mg/dL Borderline high LDL 160-189 mg/dL High LDL greater than 189 mg/dL Very high Magnesium [Mass/Vol] 18 mg/dL [facility] TRIGLYCERIDE W/REFLEX 94 mg/dL 0 - 14 9 mg/dL [facility] Comment on above: TRIG ATP III CLASSIF ICATION TRIG less than 150 mg/dL Normal TRIG 150-199 mg/dL Borderline high TRIG 200-500 mg/dL High TRIG greater than 500 mg/dL Very high Standard traceable to the Center for Disease Conrtrol and Prevention (CDC) test method. Lipid Panelon 02-06-2025 LDL Cholesterol,Calculated 84 mg/dL Normal 0-100 [facility] Comment on above: Result Comment: LDL ATP III CLASSIFICATION LDL less than 100 mg/dL Optimal LDL 100-129 mg/dL Near or above optimal LDL 130-159 mg/dL Borderline high LDL 160-189 mg/dL High LDL greater than 189 mg/dL Very high Performed By: #### C BC, HS TROP #### [facility] [address] Triglyceride w/Reflex 94 mg/dL Normal 0-149 [facility] Comment on above: Result Comment: TRIG ATP III CLASSIFICATION TRIG less than 150 mg/dL Normal TRIG 150-199 mg/dL Borderline high TRIG 200-500 mg/dL High TRIG greater than 500 mg/dL Very high Standard traceable to the Center for Disease Conrtrol and Prevention (CDC) test method. Performed By: #### C BC, HS TROP #### [facility] [address] VLDL CHOLESTEROL 18 mg/dL Normal [facility] Comment on above: Performed By: #### C BC, HS TROP #### [facility] [address] [place] [address] [place] Lymphocytes Auto (Bld) [#/Vo l]Ordered By: Jamal Alvarez on 02-06-2025 Lymphocytes (Bld) [#/Vol] Lymphocytes [#/volume] in Blood by Automated count 1.00-4.8 [facility] Lymphocytes [#/volume] in Bl ood by Automated countOrdered By: Jamal Alvarez on 02-06-2025 Lymphocytes (Bld) [#/Vol] 1.8 10*3/uL Normal 1.00-4.8 [facility] Comment on above: Performed By: #### C BC, HS TROP #### [facility] [address] [place] [id number] [place] Lymphocytes/100 WBC Auto (Bl d)Ordered By: Jamal Alvarez on 02-06-2025 Lymphocytes/100 WBC (Bld) Lymphocytes/100 leukocytes in Blood by Automated count . [facility] Lymphocytes/100 leukocytes i n Blood by Automated countOrdered By: Jamal Alvarez on 02-06-2025 Lymphocytes/100 WBC (Bld) 29.1 % Normal . [facility] Comment on above: Performed By: #### C BC, HS TROP #### [facility] [address] MCH Auto (RBC) [Entitic mass ]Ordered By: Jamal Alvarez on 02-06-2025 MCH (RBC) [Entitic mass] MCH [Entitic mass] by Automated count 24.7-34.3 [facility] MCH [Entitic mass] by Automa rob countOrdered By: Jamal Alvarez on 02-06-2025 MCH (RBC) [Entitic mass] 29.9 pg Normal 24.7-34.3 [facility] Comment on above: Performed By: #### C BC, HS TROP #### [facility] [address] MCHC Auto (RBC) [Mass/Vol]Or dered By: Jamal Alvarez on 02-06-2025 MCHC (RBC) [Mass/Vol] MCHC [Mass/volume] by Automated count 32.0-35.0 [facility] MCHC (RBC) [Mass/Vol] 33.4 g/dL 32.0-35.0 [facility] MCV Auto (RBC) [Entitic vol] Ordered By: Jamal Alvarez on 02-06-2025 MCV (RBC) [Entitic vol] MCV [Entitic vol ume] by Automated count 80-100 [facility] MCV [Entitic volume] by Auto mated countOrdered By: Jamal Alvarez on 02-06-2025 MCV (RBC) [Entitic vol] 89.7 fL Normal 80-100 [facility] Comment on above: Performed By: #### C BC, HS TROP #### [facility] [address] MicroAlb Creat Ratio,Uon Creatinine, Urine (Random) 52.00 mg/dL Normal [facility] Comment on above: Result Comment: No r eference range established Performed By: #### C BC, HS TROP #### [address] Microalbumin/Creatinine Ratio Not performed Normal 0.0-30.0 [facility] Comment on above: Result Comment: PERF ORMED BY: [place] [address] PATHOLOGIST [employer] MAE M.D. Performed By: #### C BC, HS TROP #### [facility] [address] [place] [address] Microalbumin [Mass/volume] i n UrineOrdered By: Jamal Alvarez on 02-06-2025 Albumin DL <= 20 mg/L (U) [Mass/Vol] Microalbumin [Mass/volume] in Urine 0.0-1.8 [facility] Albumin DL <= 20 mg/L (U) [Mass/Vol] mg/dL Normal 0.0-1.8 [facility] Comment on above: Performed By: #### C BC, HS TROP #### [facility] [address] [place] [address] Microalbumin/Creatinine rati o panel (U)on 02-06-2025 Albumin [Mass/Vol] mg/dL 0.0 - 1.8 mg/dL [facility] Creatinine spec 2 (U) [Mass/Vol] 52 mg/dL [facility] Comment on above: No reference range e stablished MICROALBUMIN/CREATININE RATIO Not performed 0.0 - 30.0 [facility] Monocytes Auto (Bld) [#/Vol] Ordered By: Jamal Alvarez on 02-06-2025 Monocytes (Bld) [#/Vol] Automated blood monocyte count 0.0-0.8 [facility] Monocytes [#/volume] in Bloo d by Automated countOrdered By: Jamal Alavrez on 02-06-2025 Monocytes (Bld) [#/Vol] 0.3 10*3/uL Normal 0.0-0.8 [facility] Comment on above: Performed By: #### C BC, HS TROP #### [facility] [address] Monocytes/100 WBC Auto (Bld) Ordered By: Jamal Alvarez on 02-06-2025 Monocytes/100 WBC (Bld) Automated monocyte % . [facility] Monocytes/100 leukocytes in Blood by Automated countOrdered By: Jamal Alvarez on 02-06-2025 Monocytes/100 WBC (Bld) 4.9 % Normal . [facility] Comment on above: Performed By: #### C BC, HS TROP #### [facility] [address] Neutrophils Auto (Bld) [#/Vo l]Ordered By: Jamal Alvarez on 02-06-2025 Neutrophils (Bld) [#/Vol] Neutrophils [#/volume] in Blood by Automated count 1.8-7.7 [facility] Neutrophils [#/volume] in Bl ood by Automated countOrdered By: Jamal Alvarez on 02-06-2025 Neutrophils (Bld) [#/Vol] 3.8 10*3/uL Normal 1.8-7.7 [facility] Comment on above: Performed By: #### C BC, HS TROP #### [facility] [address] Neutrophils/100 WBC Auto (Bl d)Ordered By: Jamal Alvarez on 02-06-2025 Neutrophils/100 WBC (Bld) Automated neutrophil % . [facility] Neutrophils/100 leukocytes i n Blood by Automated countOrdered By: Jamal Alvarez on 02-06-2025 Neutrophils/100 WBC (Bld) 60.7 % Normal . [facility] Comment on above: Performed By: #### C BC, HS TROP #### [facility] [address] [place] [address] No Panel Informationon 02-06 [facility] No Panel InformationOrdered By: Jamal Alvarez on 02-06-2025 Estimated GFR (CKD-EPI) > 60.0 mL/Min [facility] Creatinine Clearance (Chem N/A [facility] Nucleated erythrocytes [Pres ence] in Blood by Automated countOrdered By: Jamal Alvarez on 02-06-2025 Nucleated RBC Auto Ql (Bld) Nucleated erythrocytes [Presence] in Blood by Automated count 0-0.5 [facility] Nucleated RBC Auto Ql (Bld) 0.1 /100{WBC} 0-0.5 [facility] Platelet mean volume Auto (B ld) [Entitic vol]Ordered By: Jamal Alvarez on 02-06-2025 Platelet mean volume (Bld) [Entitic vol] Platelet mean volume [Entitic volume] in Blood by Automated count 6.3-10.7 [facility] Platelet mean volume [Entiti c volume] in Blood by Automated countOrdered By: Jamal Alvarez on 02-06-2025 Platelet mean volume (Bld) [Entitic vol] 8.6 fL Normal 6.3-10.7 [facility] Comment on above: Performed By: #### C BC, HS TROP #### [facility] [address] [place] [address] Platelets Auto (Bld) [#/Vol] Ordered By: Jamal Alvarez on 02-06-2025 Platelets (Bld) [#/Vol] Platelets [#/vol ume] in Blood by Automated count 150-450 [facility] Platelets [#/volume] in Bloo d by Automated countOrdered By: Jamal Alvarez on 02-06-2025 Platelets (Bld) [#/Vol] 264 10*3/uL Normal 150-450 [facility] Comment on above: Performed By: #### C BC, HS TROP #### [facility] [address] [place] [address] Potassium [Moles/volume] in Serum or PlasmaOrdered By: Jamal Alvarez on 02-06-2025 Potassium [Moles/Vol] Potassium [Moles/v olume] in Serum or Plasma 3.5-5.1 [facility] [facility] Potassium [Moles/Vol] 4.3 mmol/L Normal 3.5-5.1 [facility] Comment on above: Performed By: #### C BC, HS TROP #### [facility] [address] [place] [address] Protein [Mass/volume] in Ser um or PlasmaOrdered By: Jamal Alvarez on 02-06-2025 Protein [Mass/Vol] Protein [Mass/volume ] in Serum or Plasma 6.4-8.9 [facility] Protein [Mass/Vol] 7.1 g/dL Normal 6.4-8.9 [facility] Comment on above: Performed By: #### C BC, HS TROP #### [facility] [address] [place] [address] RBC Auto (Bld) [#/Vol]Ordere d By: Jamal Alvarez on 02-06-2025 RBC (Bld) [#/Vol] Erythrocytes [#/volu me] in Blood by Automated count 3.60-5.00 [facility] Serum globulin measurement b y calculation (mass/volume)Ordered By: Jamal Alvarez on 02-06-2025 Globulin (S) [Mass/Vol] 2.9 g/dL Normal [facility] Comment on above: Performed By: #### C BC, HS TROP #### [address] Serum or plasma albumin/glob ulin mass ratioOrdered By: Jamal Alvarez on 02-06-2025 Albumin/Globulin [Mass ratio] Serum or plasma albumin/globulin mass ratio [facility] Albumin/Globulin [Mass ratio] 1.4 {ratio} Normal [facility] Comment on above: Performed By: #### C BC, HS TROP #### [facility] [address] [place] [address] Serum or plasma anion gap de terminationOrdered By: Jamal Alvarez on 02-06-2025 Anion gap [Moles/Vol] Serum or plasma an ion gap determination 6.0-15.0 [facility] Anion gap [Moles/Vol] 10.9 mmol/L Normal 6.0-15.0 [facility] Comment on above: Performed By: #### C BC, HS TROP #### [facility] [address] [place] [address] Serum or plasma total choles terol/high density lipoprotein (HDL) cholesterol mass ratOrdered By: Jamal Alvarez on 02-06-2025 Cholesterol.total/[place] sterol in HDL [Mass ratio] Serum or plasma total cholesterol/high density lipoprotein (HDL) cholesterol mass rat <5.0 [facility] Cholesterol.total/[place] sterol in HDL [Mass ratio] 2.4 {ratio} Normal <5.0 [facility] Comment on above: Result Comment: PERF ORMED BY: [place] [address] PATHOLOGIST [employer] MAE M.D. Performed By: #### C BC, HS TROP #### [place] [address] [place] Sodium [Moles/volume] in Ser um or PlasmaOrdered By: Jamal Alvarez on 02-06-2025 Sodium [Moles/Vol] Sodium [Moles/volume ] in Serum or Plasma 136-145 [facility] Sodium [Moles/Vol] 140 mmol/L Normal 136-145 [facility] Comment on above: Performed By: #### C BC, HS TROP #### [facility] [address] [place] [address] Thyrotropin [Units/volume] i n Serum or PlasmaOrdered By: Valdez Castro on 02-06-2025 TSH Qn Thyrotropin [Units/v olume] in Serum or Plasma 0.45-5.33 [facility] TSH Qn 1.05 m[IU]/L Normal 0.45-5.33 [facility] Comment on above: Result Comment: PERF ORMED BY: [place] [address] PATHOLOGIST [employer] M.D. Performed By: #### T 4F, TSH3 #### [facility] [address] [place], [place] [id number] [facility] Thyroxine (T4) free [Mass/vo lume] in Serum or PlasmaOrdered By: Valdez Castro on 02-06-2025 Free T4 [Mass/Vol] Thyroxine (T4) free [Mass/volume] in Serum or Plasma 0.61-1.12 [facility] Free T4 [Mass/Vol] 0.84 ng/dL Normal 0.61-1.12 [facility] Comment on above: Performed By: #### T 4F, TSH3 #### [facility] [address] Triglyceride [Mass/volume] i n Serum or PlasmaOrdered By: Jamal Alvarez on 02-06-2025 Triglyceride [Mass/Vol] Triglyceride [Ma ss/volume] in Serum or Plasma 0-149 [facility] Comment on above: TRIG ATP III CLASSIF ICATIONTRIG less than 150 mg/dL NormalTRIG 150-199 mg/dL Borderline highTRIG 200-500 mg/dL High TRIG greater than 500 mg/dL Very highStandard traceable to the Center for Disease Conrtrol and Prevention (CDC) test method. Triglyceride [Mass/Vol] 94 mg/dL 0-149 [facility] Comment on above: TRIG ATP III CLASSIF ICATIONTRIG less than 150 mg/dL NormalTRIG 150-199 mg/dL Borderline highTRIG 200-500 mg/dL High TRIG greater than 500 mg/dL Very highStandard traceable to the Center for Disease Conrtrol and Prevention (CDC) test method. Triiodothyronine (T3) Freeon 02-06-2025 Triiodothyronine (T3) Free 2.78 pg/mL Normal 2.50-3.90 [facility] Comment on above: Result Comment: PERF ORMED BY: [address] [place] [address] PATHOLOGIST [employer] M.D. Performed By: #### C BC, HS TROP #### [facility] [address] [place] [address] Triiodothyronine (T3) Free [ Mass/volume] in Serum or PlasmaOrdered By: Valdez Castro on 02-06-2025 Free T3 [Mass/Vol] Triiodothyronine (T3 ) Free [Mass/volume] in Serum or Plasma 2.50-3.90 [facility] Free T3 [Mass/Vol] 2.78 pg/mL 2.50-3.90 [facility] Urea nitrogen [Mass/volume] in Serum or PlasmaOrdered By: Jamal Alvarez on 02-06-2025 Urea nitrogen [Mass/Vol] Urea nitrogen [Mass/volume] in Serum or Plasma 05-29 [facility] Urea nitrogen [Mass/Vol] 17 mg/dL Normal 05-29 [facility] Comment on above: Performed By: #### C BC, HS TROP #### [facility] [address] Urine microalbumin/creatinin e mass ratioOrdered By: Jamal Alvarez on 02-06-2025 Albumin/Creatinine DL <= 20 mg/L (U) [Mass ratio] Urine microalbumin/creatinine mass ratio [facility] Comment on above: Test not performed Albumin/Creatinine DL <= 20 mg/L (U) [Mass ratio] TNP [facility] Comment on above: Test not performed WBC Auto (Bld) [#/Vol]Ordere d By: Jamal Alvarez on 02-06-2025 WBC (Bld) [#/Vol] Leukocytes [#/volume ] in Blood by Automated count 3.8-11.6 [facility] CNPNon 01-12-2025 CNPN Telephone (DORITAADFV) -- KARUNA REYNAGA ([id number]) 1945 F Date Time Provider Department 01/12/25 LISA WILLIAM NERONIFV During your visit today, we recorded the following information about you: Jyoti Silva 01/12/2025 2:27 PM Signed [facility] phoned to follow with prior auth for cannabidiol (EPIDIOLEX) 100 mg/mL oral liquid please call and advise [facility] ph# [phone] Jennifer Chandler, RN 01/13/2025 10:42 AM Signed Urgent PA initiated [facility] calderon [id number]. TEAGAN Acevedo Jennifer, RN 01/13/2025 11:08 AM Signed Additional information submitted in CMM. Jennifer Chandler RN Daniela Givens 01/13/2025 4:14 PM Signed Please call Gayatri at [phone] at [facility] [place] for additional information. She stated this will auto deny at 6am tomorrow. Jennifer Chandler RN 01/13/2025 5:04 PM Signed Returned call ref [id number]. They wanted to know if pt has intractable seizures. Confirmed. They will issue a determination tomorrow. TEAGAN Acevedo Jennifer, RN 01/15/2025 4:11 PM Signed Jennifer Chandler RN 01/15/2025 4:13 PM Signed Jennifer Chandler RN 01/15/2025 4:23 PM Signed Call to [facility] pharmacy, spoke with PharmD. Med was processed and plan paid, pt portion will be $33/month. Pt will need to call to set up delivery. Call to patient, no answer, voicemail message left. TEAGAN Aecvedo Jennifer, RN 01/16/2025 10:38 AM Signed Call to patients daughter, advised her of the approval. Given the number to call [facility]. Jennifer Chandler RN Allergies As of Date: [...] Fully Assessed Reason for Visit: Medication Question [0068] Prescriptions as of 01/16/2025 - cannabidiol (EPIDIOLEX) [...] Status:Closed by JENNIFER CHANDLER on 01/13/25 Normal [facility] Free T4 (Free Thyroxine)on 0 11-20-2024 Free T4 [Mass/Vol] 0.88 ng/dL Normal 0.61-1.12 [facility] Comment on above: Performed By: #### G LULS #### Point of Care testing , Thyroid Stimulating Hormoneo n 11-20-2024 TSH Qn 0.18 m[IU]/L Low 0.45-5.33 [facility] Comment on above: Result Comment: PERF ORMED BY: [facility] [address] [place] [address] PATHOLOGIST [employer] M.D. Performed By: #### G BALJEET #### Point of Care testing , Thyrotropin [Units/volume] i n Serum or PlasmaOrdered By: Valdez Castro on 11-20-2024 TSH Qn Thyrotropin [Units/v olume] in Serum or Plasma Low 0.45-5.33 [facility] Thyroxine (T4) free [Mass/vo lume] in Serum or PlasmaOrdered By: Valdez Castro on 11-20-2024 Free T4 [Mass/Vol] Thyroxine (T4) free [Mass/volume] in Serum or Plasma 0.61-1.12 [facility] Triiodothyronine (T3) Freeon 11-20-2024 Triiodothyronine (T3) Free 2.69 pg/mL Normal 2.50-3.90 [facility] Comment on above: Result Comment: PERF ORMED BY: [facility] [address] [facility] [place] [address] PATHOLOGIST [employer] M.D. Performed By: #### G BALJEET #### Point of Care testing , Triiodothyronine (T3) Free [ Mass/volume] in Serum or PlasmaOrdered By: Valdez Castro on 11-20-2024 Free T3 [Mass/Vol] Triiodothyronine (T3 ) Free [Mass/volume] in Serum or Plasma 2.50-3.90 [facility] [place] 09-08-2024 BEATRIZN Telephone (DEVON) -- KARUNA REYNAGA ([id number]) 1945 F Date Time Provider Department 09/08/24 [...] Status:Closed by JOHN MADISON on 09/08/24 Normal [facility] MLR HEMOGLOBIN A1Con 024 Glucose [Mass/Vol] 114 mg/dL [facility] HbA1c (Bld) [Mass fraction] 5.6 % 4.5 - 6.2 % [facility] Comment on above: ADA RECOMMENDED LIMI T 4.0 - 6.0 ADA THERAPEUTIC TARGET < 7.0 ACTION SUGGESTED > 7.0 [facility] ALL CBC WITH AUTO DIFFon BASOPHILS ABSOLUTE AUTO 0.1 [facility] Basophils/100 WBC (Bld) 0.8 % 0.2 - 2.0 % [facility] Eosinophils/100 WBC (Bld) 4.2 % 0.9 - 7.0 % [facility] Erythrocyte distribution width (RBC) [Ratio] 12.5 % 11.0 - 15.0 % [facility] Hematocrit (Bld) [Volume fraction] 40.9 % 36.0 - 48.0 % [facility] Hemoglobin (Bld) [Mass/Vol] 13.0 g/dL 12.0 - 16.0 g/dL [facility] IMMATURE GRANULOCYTES ABS AUTO 0.01 [facility] Immature granulocytes/100 WBC (Bld) 0.1 % 0.0 - 0.5 % [facility] LYMPHOCYTES ABSOLUTE AUTO 2.3 [facility] Lymphocytes/100 WBC (Bld) 32.7 % 20.5 - 60.0 % [facility] MCH (RBC) [Entitic mass] 29.5 pg 26.7 - 34.0 pg [facility] MCHC (RBC) [Mass/Vol] 31.8 g/dL 29.9 - 35.2 g/dL [facility] MCV (RBC) [Entitic vol] 92.7 fL 81.0 - 99.0 fL [facility] MONOCYTES ABSOLUTE AUTO 0.4 [facility] Monocytes/100 WBC (Bld) 5.5 % 1.7 - 12.0 % [facility] NEUTROPHILS ABSOLUTE AUTO 4.0 [facility] Neutrophils/100 WBC (Bld) 56.7 % 43.0 - 75.0 % [facility] Platelet mean volume (Bld) [Entitic vol] 10.2 fL 9.5 - 13.5 fL [facility] TBH EO # 0.3 [facility] TB PLT [address] [facility] RBC 4.41 [facility] WBC 7.1 [facility] CNPNon 07-30-2024 CNPN Telephone (NEURAV) -- KARUNA REYNAGA ([id number]) 1945 F Date Time Provider Department 07/30/24 [...] daughter: Nadira Call patient at: on cell [phone] (home) [phone] (cell) Was an appointment scheduled: No Closing statement: Results or non-symptom based questions: Thank you for calling [facility], your call will be returned within the next business day. Yaa Portillo 07/30/2024 2:05 PM Signed Patient called back today, and indicated that she's going to have this done at [facility] and they need the order to specifically state how long you want them to do the test for, so please include a time frame on the order. Then fax over to [facility] at: [phone] Sowmya Gresham RN 07/30/2024 2:54 PM Signed [...] PM Addendum Spoke with Karuna States that [facility] needs the order to specify what [...] 2:18 PM Addendum EEG order faxed to [facility] via [employer] request to fax report to [phone] send EEG tracings to [facility] Sowmya Gresham [...] Visit Diagnosis:Convulsions, unspecified convulsion type (HCC) [R56.9] Order(s):SHYAM GALLO [[id number]] Order #: [id number]: 1 FUTURE Prescriptions as of 08/01/2024 - [...] Status:Closed by SOWMYA GRESHAM on 08/01/24 Normal [facility] Thyrotropin [Units/volume] i n Serum or PlasmaOrdered By: Valdez Castro on 04-22-2024 TSH Qn 1.42 m[IU]/L 0.45-5.33 [facility] Thyroxine (T4) free [Mass/vo lume] in Serum or PlasmaOrdered By: Valdez Castro on 04-22-2024 Free T4 [Mass/Vol] 0.64 ng/dL 0.61-1.12 [facility] Triiodothyronine (T3) Free [ Mass/volume] in Serum or PlasmaOrdered By: Valdez Castro on 04-22-2024 Free T3 [Mass/Vol] 2.84 pg/mL 2.50-3.90 [facility] Basophils Auto (Bld) [#/Vol] Ordered By: Albert Palacio on 04-16-2024 Basophils (Bld) [#/Vol] 0.1 10*3/uL 0.0-0.2 [facility] Basophils/100 WBC Auto (Bld) Ordered By: Albert Palacio on 04-16-2024 Basophils/100 WBC (Bld) 0.8 % . [facility] Calcium [Mass/volume] in Ser um or PlasmaOrdered By: Albert Palacio on 04-16-2024 Calcium [Mass/Vol] 9.6 mg/dL 8.6-10.3 [facility] Carbon dioxide, total [Moles /volume] in Serum or PlasmaOrdered By: Albert Palacio on 04-16-2024 CO2 [Moles/Vol] 24.4 mmol/L 21.0-31.0 [facility] Chloride [Moles/volume] in S sun or PlasmaOrdered By: Albert Palacio on 04-16-2024 Chloride [Moles/Vol] 105 mmol/L 98-107 [facility] Creatinine [Mass/volume] in Serum or PlasmaOrdered By: Albert Palacio on 04-16-2024 Creatinine [Mass/Vol] 0.96 mg/dL 0.60-1.20 [facility] Eosinophils Auto (Bld) [#/Vo l]Ordered By: Albert Palacio on 04-16-2024 Eosinophils (Bld) [#/Vol] 0.3 10*3/uL 0.0-0.45 [facility] Eosinophils/100 WBC Auto (Bl d)Ordered By: Albert Palacio on 04-16-2024 Eosinophils/100 WBC (Bld) 3.6 % . [facility] Erythrocyte distribution wid th Auto (RBC) [Ratio]Ordered By: Albert Palacio on 04-16-2024 Erythrocyte distribution width (RBC) [Ratio] 13.0 % 11.9-15.3 [facility] Glucose [Mass/volume] in Ser um or PlasmaOrdered By: Albert Palacio on 04-16-2024 Glucose [Mass/Vol] 112 mg/dL High 70-100 [facility] Comment on above: ADA recommended refe rence rangeRandom Glucose Reference Range is dependent on time and content of last meal. Glucose of more than 200 mg/dL in a nonstressed, ambulatory subject supports the diagnosis of Diabetes Mellitus. Hematocrit Auto (Bld) [Volum e fraction]Ordered By: Albert Palacio on 04-16-2024 Hematocrit (Bld) [Volume fraction] 42.1 % 34.0-46.4 [facility] Hemoglobin [Mass/volume] in BloodOrdered By: Albert Palacio on 04-16-2024 Hemoglobin (Bld) [Mass/Vol] 13.7 g/dL 11.8-15.4 [facility] Leukocytes [#/volume] correc rob for nucleated erythrocytes in Blood by Automated counOrdered By: Albert Palacio on 04-16-2024 WBC corrected for nucl RBC Auto (Bld) [#/Vol] 7.5 10*3/uL 3.8-11.6 [facility] Lymphocytes Auto (Bld) [#/Vo l]Ordered By: Albert Palacio on 04-16-2024 Lymphocytes (Bld) [#/Vol] 1.7 10*3/uL 1.00-4.8 [facility] Lymphocytes/100 WBC Auto (Bl d)Ordered By: Albert Palacio on 04-16-2024 Lymphocytes/100 WBC (Bld) 22.3 % . [facility] MCH Auto (RBC) [Entitic mass ]Ordered By: Albert Palacio on 04-16-2024 MCH (RBC) [Entitic mass] 29.2 pg 24.7-34.3 [facility] MCHC Auto (RBC) [Mass/Vol]Or dered By: Albert Palacio on 04-16-2024 MCHC (RBC) [Mass/Vol] 32.7 g/dL 32.0-35.0 [facility] MCV Auto (RBC) [Entitic vol] Ordered By: Albert Palacio on 04-16-2024 MCV (RBC) [Entitic vol] 89.5 fL 80-100 [facility] Monocytes Auto (Bld) [#/Vol] Ordered By: Albert Palacio on 04-16-2024 Monocytes (Bld) [#/Vol] 0.5 10*3/uL 0.0-0.8 [facility] Monocytes/100 WBC Auto (Bld) Ordered By: Albert Palacio on 04-16-2024 Monocytes/100 WBC (Bld) 6.4 % . [facility] Neutrophils Auto (Bld) [#/Vo l]Ordered By: Albert Palacio on 04-16-2024 Neutrophils (Bld) [#/Vol] 5.0 10*3/uL 1.8-7.7 [facility] Neutrophils/100 WBC Auto (Bl d)Ordered By: Albert Palacio on 04-16-2024 Neutrophils/100 WBC (Bld) 66.9 % . [facility] No Panel InformationOrdered By: Albert Palacio on 04-16-2024 Estimated GFR (CKD-EPI) > 60.0 mL/Min [facility] Creatinine Clearance (Chem 40.49 [facility] Nucleated erythrocytes [Pres ence] in Blood by Automated countOrdered By: Albert Palacio on 04-16-2024 Nucleated RBC Auto Ql (Bld) 0.0 /100{WBC} 0-0.5 [facility] Platelet mean volume Auto (B ld) [Entitic vol]Ordered By: Albert Palacio on 04-16-2024 Platelet mean volume (Bld) [Entitic vol] 8.0 fL 6.3-10.7 [facility] Platelets Auto (Bld) [#/Vol] Ordered By: Albert Palacio on 04-16-2024 Platelets (Bld) [#/Vol] 222 10*3/uL 150-450 [facility] Potassium [Moles/volume] in Serum or PlasmaOrdered By: Albert Palacio on 04-16-2024 Potassium [Moles/Vol] 4.9 mmol/L 3.5-5.1 [facility] RBC Auto (Bld) [#/Vol]Ordere d By: Albert Palacio on 04-16-2024 RBC (Bld) [#/Vol] 4.70 10*6/uL 3.60-5.00 [facility] Serum or plasma anion gap de terminationOrdered By: Albert Palacio on 04-16-2024 Anion gap [Moles/Vol] 13.5 mmol/L 6.0-15.0 [facility] Sodium [Moles/volume] in Ser um or PlasmaOrdered By: Albert Palacio on 04-16-2024 Sodium [Moles/Vol] 138 mmol/L 136-145 [facility] Urea nitrogen [Mass/volume] in Serum or PlasmaOrdered By: Albert Palacio on 04-16-2024 Urea nitrogen [Mass/Vol] 31 mg/dL High 7-25 [facility] WBC Auto (Bld) [#/Vol]Ordere d By: Albert Palacio on 04-16-2024 WBC (Bld) [#/Vol] 7.5 10*3/uL 3.8-11.6 [facility] Activated partial thrombopla stin time (aPTT) in platelet poor plasma by coagulation aOrdered By: Albert Palacio on 04-14-2024 aPTT Coag (PPP) [Time] 77.1 s High 25.1-36.5 [facility] Comment on above: A hematocrit value g reater than 55% may lead to inaccurate results in coagulation testing. Patients having hematocrit values >55% require a special collection tube for coagulation studies. Please contact the laboratory at [phone] for redraw instructions. Bilirubin Test strip Ql (U)O rdered By: Ashley Dickerson on 04-14-2024 Bilirubin Ql (U) Negative Negative [facility] Cholesterol [Mass/volume] in Serum or PlasmaOrdered By: Albert Palacio on 04-14-2024 Cholesterol [Mass/Vol] 154 mg/dL 140-200 [facility] Comment on above: Chol less than 200 m g/dl low riskChol 201-239 mg/dl borderline riskChol 240 mg/dl and greater high risk Cholesterol in LDL Calc [Mas s/Vol]Ordered By: Albert Palacio on 04-14-2024 Cholesterol in LDL [Mass/Vol] 82 mg/dL 0-100 [facility] Comment on above: LDL ATP III CLASSIFI CATIONLDL less than 100 mg/dL OptimalLDL 100-129 mg/dL Near or above optimalLDL 130-159 mg/dL Borderline highLDL 160-189 mg/dL HighLDL greater than 189 mg/dL Very high Cholesterol in VLDL Calc [Ma ss/Vol]Ordered By: Albert Palacio on 04-14-2024 Cholesterol in VLDL [Mass/Vol] 12 mg/dL [facility] Color Auto (U)Ordered By: Junie Dickerson on 04-14-2024 Color (U) Colorless Yellow [facility] Glucose [Mass/volume] in Uri ne by Test stripOrdered By: Ashley Dickerson on 04-14-2024 Glucose Test strip (U) [Mass/Vol] Normal mg/dL Normal [facility] Hemoglobin Test strip Ql (U) Ordered By: Ashley Dickerson on 04-14-2024 Hemoglobin Ql (U) Negative Negative [facility] Ketones Test strip Ql (U)Ord ered By: Ashley Dickerson on 04-14-2024 Ketones Ql (U) Negative Negative [facility] Leukocyte esterase [Presence ] in Urine by Test stripOrdered By: Ashley Dickerson on 04-14-2024 Leukocyte esterase Test strip Ql (U) Negative Negative [facility] Magnesium [Mass/volume] in S sun or PlasmaOrdered By: Albert Palacio on 04-14-2024 Magnesium [Mass/Vol] 1.9 mg/dL 1.9-2.7 [facility] Nitrite Test strip Ql (U)Ord ered By: Ashley Dickerson on 04-14-2024 Nitrite Ql (U) Negative Negative [facility] Protein Test strip (U) [Mass /Vol]Ordered By: Ashley Dickerson on 04-14-2024 Protein (U) [Mass/Vol] Negative Negative [facility] Serum or plasma high density lipoprotein (HDL) cholesterol measurementOrdered By: Albert Palacio on 04-14-2024 Cholesterol in HDL [Mass/Vol] 59 mg/dL 23-92 [facility] Comment on above: HDL CHOL ATP-III CLA SSIFICATION Cardiovascular RiskHDL > or equal to 60 mg/dL LOWHDL < 40 mg/dL HIGH Serum or plasma total choles terol/high density lipoprotein (HDL) cholesterol mass ratOrdered By: Albert Palacio on 04-14-2024 Cholesterol.total/[place] sterol in HDL [Mass ratio] 2.6 {ratio} <5.0 [facility] Specific gravity Test strip (U) [Rel density]Ordered By: Ashley Dickerson on 04-14-2024 Specific gravity (U) [Rel density] 1.011 1.001-1.03 0 [facility] Triglyceride [Mass/volume] i n Serum or PlasmaOrdered By: Albert Palacio on 04-14-2024 Triglyceride [Mass/Vol] 64 mg/dL 0-149 [facility] Comment on above: TRIG ATP III [...] 0.01 ng/mL [Mass/Vol] 436.4 pg/mL High 0.0-15.0 [facility] Comment on above: Critical Result : Ca lled to and read back by: BRET HARKINS at: 04/14/2024 06:14:01 by:SOUMYA Urine appearanceOrdered By: Ashely Dickerson on 04-14-2024 Appearance (U) Clear Clear [facility] Urobilinogen Test strip (U) [Mass/Vol]Ordered By: Ashley Dickerson on 04-14-2024 Urobilinogen (U) [Mass/Vol] Normal mg/dL Normal [facility] pH Test strip (U)Ordered By: Ashley Dickerson on 04-14-2024 pH (U) 6.0 [pH] 5.0-9.0 [facility] Activated partial thrombopla stin time (aPTT) in platelet poor plasma by coagulation aOrdered By: Ashley Dickerson on 04-13-2024 aPTT Coag (PPP) [Time] 28.3 s 25.1-36.5 [facility] Comment on above: A hematocrit value g reater than 55% may lead to inaccurate results in coagulation testing. Patients having hematocrit values >55% require a special collection tube for coagulation studies. Please contact the laboratory at [phone] for redraw instructions. Alanine aminotransferase [En zymatic activity/volume] in Serum or PlasmaOrdered By: Ashley Dickerson on 04-13-2024 ALT [Catalytic activity/Vol] 19 U/L 7-52 [facility] Albumin [Mass/volume] in Ser um or Plasma by Bromocresol green (BCG) dye binding methoOrdered By: Ashley Dickerson on 04-13-2024 Albumin BCG dye [Mass/Vol] 3.6 g/dL 3.5-5.7 [facility] Alkaline phosphatase [Enzyma tic activity/volume] in Serum or PlasmaOrdered By: Ashley Dickerson on 04-13-2024 ALP [Catalytic activity/Vol] 48 U/L 34-104 [facility] Aspartate aminotransferase [ Enzymatic activity/volume] in Serum or PlasmaOrdered By: Ashley Dickerson on 04-13-2024 AST [Catalytic activity/Vol] 19 U/L 13-39 [facility] Basophils Auto (Bld) [#/Vol] Ordered By: Ashley Dickerson on 04-13-2024 Basophils (Bld) [#/Vol] 0.1 10*3/uL 0.0-0.2 [facility] Basophils/100 WBC Auto (Bld) Ordered By: Ashley Dickerson on 04-13-2024 Basophils/100 WBC (Bld) 0.8 % . [facility] Bilirubin.total [Mass/volume ] in Serum or PlasmaOrdered By: Ashley Dickerson on 04-13-2024 Bilirubin [Mass/Vol] 0.4 mg/dL 0.3-1.0 [facility] Calcium [Mass/volume] in Ser um or PlasmaOrdered By: Ashley Dickerson on 04-13-2024 Calcium [Mass/Vol] 8.7 mg/dL 8.6-10.3 [facility] Carbon dioxide, total [Moles /volume] in Serum or PlasmaOrdered By: Ashley Dickerson on 04-13-2024 CO2 [Moles/Vol] 28.0 mmol/L 21.0-31.0 [facility] Chloride [Moles/volume] in S sun or PlasmaOrdered By: Ashley Dickerson on 04-13-2024 Chloride [Moles/Vol] 105 mmol/L 98-107 [facility] Creatine kinase [Enzymatic a ctivity/volume] in Serum or PlasmaOrdered By: Albert Palacio on 04-13-2024 CK [Catalytic activity/Vol] 56 U/L 30-223 [facility] Creatinine (Bld) [Mass/Vol]O rdered By: Ashley Dickerson on 04-13-2024 Creatinine [Mass/Vol] 1.1 mg/dL 0.6-1.3 [facility] Comment on above: ER/ESD physician is notified/shown all ISTAT results.Critical values may be confirmed by laboratory testing ifdeemed necessary by ER attending doctor. Creatinine [Mass/volume] in Serum or PlasmaOrdered By: Ashley Dickerson on 04-13-2024 Creatinine [Mass/Vol] 0.92 mg/dL 0.60-1.20 [facility] Eosinophils Auto (Bld) [#/Vo l]Ordered By: Ashley Dickerson on 04-13-2024 Eosinophils (Bld) [#/Vol] 0.3 10*3/uL 0.0-0.45 [facility] Eosinophils/100 WBC Auto (Bl d)Ordered By: Ashley Dickerson on 04-13-2024 Eosinophils/100 WBC (Bld) 4.3 % . [facility] Erythrocyte distribution wid th Auto (RBC) [Ratio]Ordered By: Ashley Dickerson on 04-13-2024 Erythrocyte distribution width (RBC) [Ratio] 12.7 % 11.9-15.3 [facility] Globulin Calc (S) [Mass/Vol] Ordered By: Ashley Dickerson on 04-13-2024 Globulin (S) [Mass/Vol] 3.0 g/dL [facility] Glucose Glucometer (BldC) [M ass/Vol]Ordered By: Ashley Dickerson on 04-13-2024 Glucose [Mass/Vol] 167 mg/dL [facility] Comment on above: Random Glucose Refer ence Range is dependent on time and content of last meal. Glucose of more than 200 mg/dL in a nonstressed, ambulatory subject supports the diagnosis of Diabetes Mellitus. Glucose [Mass/volume] in Ser um or PlasmaOrdered By: Ashley Dickerson on 04-13-2024 Glucose [Mass/Vol] 173 mg/dL 70-100 [facility] Comment on above: ADA recommended refe rence rangeRandom Glucose Reference Range is dependent on time and content of last meal. Glucose of more than 200 mg/dL in a nonstressed, ambulatory subject supports the diagnosis of Diabetes Mellitus. Hematocrit Auto (Bld) [Volum e fraction]Ordered By: Ashley Dickerson on 04-13-2024 Hematocrit (Bld) [Volume fraction] 38.7 % 34.0-46.4 [facility] Hemoglobin [Mass/volume] in BloodOrdered By: Ashley Dickerson on 04-13-2024 Hemoglobin (Bld) [Mass/Vol] 12.7 g/dL 11.8-15.4 [facility] INR in Platelet poor plasma by Coagulation assayOrdered By: Ashley Dickerson on 04-13-2024 INR Coag (PPP) [Relative time] 1.1 {INR} [facility] Comment on above: INR Therapeutic Rang e [...] RBC Auto (Bld) [#/Vol] 6.3 10*3/uL 3.8-11.6 [facility] Lymphocytes Auto (Bld) [#/Vo l]Ordered By: Ashley Dickerson on 04-13-2024 Lymphocytes (Bld) [#/Vol] 1.8 10*3/uL 1.00-4.8 [facility] Lymphocytes/100 WBC Auto (Bl d)Ordered By: Ashley Dickerson on 04-13-2024 Lymphocytes/100 WBC (Bld) 29.5 % . [facility] MCH Auto (RBC) [Entitic mass ]Ordered By: Ashley Dickerson on 04-13-2024 MCH (RBC) [Entitic mass] 29.4 pg 24.7-34.3 [facility] MCHC Auto (RBC) [Mass/Vol]Or dered By: Ashley Dickerson on 04-13-2024 MCHC (RBC) [Mass/Vol] 32.8 g/dL 32.0-35.0 [facility] MCV Auto (RBC) [Entitic vol] Ordered By: Ashley Dickerson on 04-13-2024 MCV (RBC) [Entitic vol] 89.6 fL 80-100 [facility] Monocyte distribution width [Entitic volume] in Blood by AutomatedOrdered By: Ashley Dickerson on 04-13-2024 Monocyte distribution width Auto (Bld) [Entitic vol] 18.47 % 0.00-20.00 [facility] Monocytes Auto (Bld) [#/Vol] Ordered By: Ashley Dickerson on 04-13-2024 Monocytes (Bld) [#/Vol] 0.5 10*3/uL 0.0-0.8 [facility] Monocytes/100 WBC Auto (Bld) Ordered By: Ashley Dickerson on 04-13-2024 Monocytes/100 WBC (Bld) 7.4 % . [facility] Natriuretic peptide B [Mass/ Vol]Ordered By: Albert Palacio on 04-13-2024 Natriuretic peptide B (Bld) [Mass/Vol] 12.0 pg/mL 5-100 [facility] Neutrophils Auto (Bld) [#/Vo l]Ordered By: Ashley Dickerson on 04-13-2024 Neutrophils (Bld) [#/Vol] 3.6 10*3/uL 1.8-7.7 [facility] Neutrophils/100 WBC Auto (Bl d)Ordered By: Ashley Dickerson on 04-13-2024 Neutrophils/100 WBC (Bld) 58.0 % . [facility] No Panel InformationOrdered By: Ashley Dickerson on 04-13-2024 Bedside Estimated GFR (eGFR) 51.432 [facility] Bedside Glucose Comment Glu2: cleaned meter [facility] Estimated GFR (CKD-EPI) > 60.0 mL/Min [facility] Creatinine Clearance (Chem 42.88 [facility] Nucleated erythrocytes [Pres ence] in Blood by Automated countOrdered By: Ashley Dickerson on 04-13-2024 Nucleated RBC Auto Ql (Bld) 0.1 /100{WBC} 0-0.5 [facility] Platelet mean volume Auto (B ld) [Entitic vol]Ordered By: Ashley Dickerson on 04-13-2024 Platelet mean volume (Bld) [Entitic vol] 7.8 fL 6.3-10.7 [facility] Platelets Auto (Bld) [#/Vol] Ordered By: Ashley Dickerson on 04-13-2024 Platelets (Bld) [#/Vol] 221 10*3/uL 150-450 [facility] Potassium [Moles/volume] in Serum or PlasmaOrdered By: Ashley Dickerson on 04-13-2024 Potassium [Moles/Vol] 4.1 mmol/L 3.5-5.1 [facility] Protein [Mass/volume] in Ser um or PlasmaOrdered By: Ashley Dickerson on 04-13-2024 Protein [Mass/Vol] 6.6 g/dL 6.4-8.9 [facility] Prothrombin time (PT)Ordered By: Ashley Dickerson on 04-13-2024 PT Coag (PPP) [Time] 12.5 s 9.0-12.9 [facility] Comment on above: A hematocrit value g reater than 55% may lead to inaccurate results in coagulation testing. Patients having hematocrit values >55% require a special collection tube for coagulation studies. Please contact the laboratory at [phone] for redraw instructions. RBC Auto (Bld) [#/Vol]Ordere d By: Ashley Dickerson on 04-13-2024 RBC (Bld) [#/Vol] 4.32 10*6/uL 3.60-5.00 [facility] Serum or plasma albumin/glob ulin mass ratioOrdered By: Ashley Dickerson on 04-13-2024 Albumin/Globulin [Mass ratio] 1.2 {ratio} [facility] Serum or plasma anion gap de terminationOrdered By: Ashley Dickerson on 04-13-2024 Anion gap [Moles/Vol] 9.1 mmol/L 6.0-15.0 [facility] Sodium [Moles/volume] in Ser um or PlasmaOrdered By: Ashley Dickerson on 04-13-2024 Sodium [Moles/Vol] 138 mmol/L 136-145 [facility] Troponin I.cardiac [Mass/vol ume] in Serum or Plasma by Detection limit <= 0.01 ng/Ordered By: Albert Palacio on 04-13-2024 Troponin I.cardiac DL <= 0.01 ng/mL [Mass/Vol] 454.0 pg/mL 0.0-15.0 [facility] Comment on above: Critical Result : Ca lled to and read back by: HUGH BRUMFIELD at: 04/13/2024 19:01:57 by:[id number] Urea nitrogen [Mass/volume] in Serum or PlasmaOrdered By: Ashley Dickerson on 04-13-2024 Urea nitrogen [Mass/Vol] 19 mg/dL 7-25 [facility] WBC Auto (Bld) [#/Vol]Ordere d By: Ashley Dickerson on 04-13-2024 WBC (Bld) [#/Vol] 6.3 10*3/uL 3.8-11.6 [facility] ECG 12 [place] 03-10-2024 [facility] Work Phone: Normal sinus rhythm cannot exclude pattern of septal myocardial infarction no acute abnormalities [facility] Work Phone: Creatinine (Bld) [Mass/Vol]O rdered By: JOSE LUIS RICHY on 02-25-2024 Creatinine [Mass/Vol] 0.7 mg/dL 0.6-1.3 [facility] Comment on above: ER/ESD physician is notified/shown all ISTAT results.Critical values may be confirmed by laboratory testing ifdeemed necessary by ER attending doctor. No Panel InformationOrdered By: JOSE LUIS LOCKHART on 02-25-2024 Bedside Estimated GFR (eGFR) > 60.[address] [facility] [address] Chest WO contraston 12-28 IMPRESSION: 1. [...] any questions regarding this interpretation, please call [phone]. If you are unable to reach us at the number above, please feel free to [facility] [phone]. DIVISION OF RADIOLOGY * * *Final Report* * * DATE OF EXAM: Dec 27 2023 1:09PM [facility] 0541 - CT CHEST WO IVCON [...] calcified gallstone is noted in the gallbladder. Map Maker (topogram) images: No additional findings. DIVISION OF RADIOLOGY Provider, [facility] [place] - 12/28/2023 * * *Final Report* * * DATE OF EXAM: Dec 27 2023 1:09PM [facility] 0541 - CT CHEST WO IVCON [...] calcified gallstone is noted in the gallbladder. Map Maker (topogram) images: No additional findings. IMPRESSION IMPRESSION: [...] any questions regarding this interpretation, please call [phone]. If you are unable to reach us at the number above, please feel free to contact [facility] eRadiology at [phone]. [facility] CT Chest WO contrastOrdered By: [facility] Provider on 12-28-2023 [facility] CT Chest WO contraston 12-27 Radiology Study observation (narrative) Katarzyna Mccoy LUNG DIFFUSION CAPACITY (SHANKAR O)on 12-25-2023 [facility] SPIROMETRY WITH DILATOR IF O BSTRUCTEDon 12-25-2023 DLCO (ml/min/mmHg) 9.76 ml/min/mmHg [facility] DLCO/VA (ml/min/mmHg/L) 4.48 ml/min/mmHg/L [facility] [id number]% PRE (L/S) 1.32 L/S [facility] FEV1 PRE (L) 1.05 L [facility] FEV1/FVC PRE (%) 89 % [facility] FVC PRE (L) 1.19 L [facility] PEF PRE (L/S) 1.90 L/S [facility] VA (L) 2.18 L [facility] Thyrotropin [Units/volume] i n Serum or PlasmaOrdered By: Valdez Castro on 10-16-2023 TSH Qn 0.51 m[IU]/L 0.45-5.33 [facility] Thyroxine (T4) free [Mass/vo lume] in Serum or PlasmaOrdered By: Valdez Castro on 10-16-2023 Free T4 [Mass/Vol] 0.74 ng/dL 0.61-1.12 [facility] Triiodothyronine (T3) Free [ Mass/volume] in Serum or PlasmaOrdered By: Valdez Castro on 10-16-2023 Free T3 [Mass/Vol] 3.08 pg/mL 2.50-3.90 [facility] Basophils Auto (Bld) [#/Vol] Ordered By: Hermes Kennedy on 12-26-2022 Basophils (Bld) [#/Vol] 0.0 10*3/uL 0.0-0.2 [facility] Basophils/100 WBC Auto (Bld) Ordered By: Hermes Kennedy on 12-26-2022 Basophils/100 WBC (Bld) 0.5 % . [facility] Creatinine and Glomerular fi ltration rate.predicted panel (S/P/Bld)Ordered By: Hermes Kennedy on 12-26-2022 Creatinine [Mass/Vol] 0.61 mg/dL 0.44-1.03 [facility] Eosinophils Auto (Bld) [#/Vo l]Ordered By: Hermes Kennedy on 12-26-2022 Eosinophils (Bld) [#/Vol] 0.1 10*3/uL 0.0-0.45 [facility] Eosinophils/100 WBC Auto (Bl d)Ordered By: Hermes Kennedy on 12-26-2022 Eosinophils/100 WBC (Bld) 2.3 % . [facility] Erythrocyte distribution wid th Auto (RBC) [Ratio]Ordered By: Hermes Kennedy on 12-26-2022 Erythrocyte distribution width (RBC) [Ratio] 13.2 % 11.9-15.3 [facility] Estimated glomerular filtrat ion rate (GFR) non- AmericanOrdered By: Hermes Kennedy on 12-26-2022 GFR/1.73 sq M.predicted among non-blacks MDRD (S/P/Bld) [Vol rate/Area] > 60 mL/Min [facility] Hematocrit Auto (Bld) [Volum e fraction]Ordered By: Hermes Kennedy on 12-26-2022 Hematocrit (Bld) [Volume fraction] 38.3 % 34.0-46.4 [facility] Hemoglobin [Mass/volume] in BloodOrdered By: Hermes Kennedy on 12-26-2022 Hemoglobin (Bld) [Mass/Vol] 12.4 g/dL 11.8-15.4 [facility] Leukocytes [#/volume] correc rob for nucleated erythrocytes in Blood by Automated counOrdered By: Hermes Kennedy on 12-26-2022 WBC corrected for nucl RBC Auto (Bld) [#/Vol] 6.4 10*3/uL 3.8-11.6 [facility] Lymphocytes Auto (Bld) [#/Vo l]Ordered By: Hermes Kennedy on 12-26-2022 Lymphocytes (Bld) [#/Vol] 2.2 10*3/uL 1.00-4.8 [facility] Lymphocytes/100 WBC Auto (Bl d)Ordered By: Hermes Kennedy on 12-26-2022 Lymphocytes/100 WBC (Bld) 34.9 % . [facility] MCH Auto (RBC) [Entitic mass ]Ordered By: Hermes Kennedy on 12-26-2022 MCH (RBC) [Entitic mass] 29.5 pg 24.7-34.3 [facility] MCHC Auto (RBC) [Mass/Vol]Or dered By: Hermes Kennedy on 12-26-2022 MCHC (RBC) [Mass/Vol] 32.3 g/dL 32.0-35.0 [facility] MCV Auto (RBC) [Entitic vol] Ordered By: Hermes Kennedy on 12-26-2022 MCV (RBC) [Entitic vol] 91.2 fL 80-100 [facility] Monocytes Auto (Bld) [#/Vol] Ordered By: Hermes Kennedy on 12-26-2022 Monocytes (Bld) [#/Vol] 0.5 10*3/uL 0.0-0.8 [facility] Monocytes/100 WBC Auto (Bld) Ordered By: Hermes Kennedy on 12-26-2022 Monocytes/100 WBC (Bld) 8.3 % . [facility] Neutrophils Auto (Bld) [#/Vo l]Ordered By: Hermes Kennedy on 12-26-2022 Neutrophils (Bld) [#/Vol] 3.5 10*3/uL 1.8-7.7 [facility] Neutrophils/100 WBC Auto (Bl d)Ordered By: Hermes Kennedy on 12-26-2022 Neutrophils/100 WBC (Bld) 54.0 % . [facility] No Panel InformationOrdered By: Hermes Kennedy on 12-26-2022 Estimated GFR () > 60 mL/Min [facility] Comment on above: GFR estimated refere nce range: According to KDOQI guidelines, <60 ml/min/1.73m2 is sufficient to diagnose a patient with chronic kidney disease. Pharmacy Creatinine Clearance (Chem N/A [facility] Nucleated erythrocytes [Pres ence] in Blood by Automated countOrdered By: Hermes Kennedy on 12-26-2022 Nucleated RBC Auto Ql (Bld) 0.2 /100{WBC} 0-0.5 [facility] Platelet mean volume Auto (B ld) [Entitic vol]Ordered By: Hermes Kennedy on 12-26-2022 Platelet mean volume (Bld) [Entitic vol] 8.5 fL 6.3-10.7 [facility] Platelets Auto (Bld) [#/Vol] Ordered By: Hermes Kennedy on 12-26-2022 Platelets (Bld) [#/Vol] 218 10*3/uL 150-450 [facility] RBC Auto (Bld) [#/Vol]Ordere d By: Hermes Kennedy on 12-26-2022 RBC (Bld) [#/Vol] 4.20 10*6/uL 3.60-5.00 [facility] Serum or plasma anion gap de terminationOrdered By: Hermes Kennedy on 12-26-2022 Anion gap [Moles/Vol] 10.0 mmol/L 6.0-15.0 [facility] Serum or plasma calcium marce urement (mass/volume)Ordered By: Hermes Kennedy on 12-26-2022 Calcium [Mass/Vol] 9.1 mg/dL 8.2-10.2 [facility] Serum or plasma chloride william surement (moles/volume)Ordered By: Hermes Kennedy on 12-26-2022 Chloride [Moles/Vol] 104 mmol/L 95-114 [facility] Serum or plasma glucose marce urement (mass/volume)Ordered By: Hermes Kennedy on 12-26-2022 Glucose [Mass/Vol] 80 mg/dL 70-100 [facility] Comment on above: ADA recommended refe rence rangeRandom Glucose Reference Range is dependent on time and content of last meal. Glucose of more than 200 mg/dL in a nonstressed, ambulatory subject supports the diagnosis of Diabetes Mellitus. Serum or plasma potassium me asurement (moles/volume)Ordered By: Hermes Kennedy on 12-26-2022 Potassium [Moles/Vol] 4.3 mmol/L 3.5-5.1 [facility] Serum or plasma sodium measu rement (moles/volume)Ordered By: Hermes Kennedy on 12-26-2022 Sodium [Moles/Vol] 139 mmol/L 136-146 [facility] Serum or plasma total carbon dioxide measurement (moles/volume)Ordered By: Hermes Kennedy on 12-26-2022 CO2 [Moles/Vol] 29.3 mmol/L 22.0-30.0 [facility] Serum or plasma urea nitroge n measurement (mass/volume)Ordered By: Hermes Kennedy on 12-26-2022 Urea nitrogen [Mass/Vol] 21 mg/dL 9-23 [facility] WBC Auto (Bld) [#/Vol]Ordere d By: Hermes Kennedy on 12-26-2022 WBC (Bld) [#/Vol] 6.4 10*3/uL 3.8-11.6 [facility] CULTURE URINEon 04-05-2022 CULTURE URINE Culture Observations : NO GROWTH. Normal [facility] Comment on above: Performed By: #### U RCX #### [facility] [address] [place] [address] Dr. Mojgan Daily UA RANDOM W/MICROSCOPICon BACTERIA NONE SEEN Normal NONE SEEN [facility] Comment on above: Performed By: #### U AMIC #### [facility] [address] [place] [address] Dr. Mojgan Daily Bilirubin Ql (U) Negative Normal NEGATIVE [facility] Comment on above: Performed By: #### U AMIC #### [facility] [address] [place] [address] Dr. Mojgan Daily CA OX CRYSTALS FEW Normal [facility] Comment on above: Performed By: #### U AMIC #### [facility] [address] [place] [address] Dr. Mojgan Daily CAST NONE SEEN Normal NONE SEEN [facility] Comment on above: Performed By: #### U AMIC #### [facility] [address] [place] [address] Dr. Mojgan Daily Clarity (U) CLEAR Normal CLEAR [facility] Comment on above: Performed By: #### U AMIC #### [facility] [address] [place] [address] Dr. Mojgan Daily Color (U) LT. YELLOW Normal YELLOW [facility] Comment on above: Performed By: #### U AMIC #### [facility] [address] [place] [address] Dr. Mojgan Daily Crystals LM Nom (Urine sed) SEEN Abnormal NONE SEEN [facility] Comment on above: Performed By: #### U AMIC #### [facility] [address] [place] [address] Dr. Mojgan Daily Epithelial cells LM Ql (Urine sed) NONE SEEN Normal NONE SEEN /RARE [facility] Comment on above: Performed By: #### U AMIC #### [facility] [address] [place] [address] Dr. Mojgan Daily Glucose Ql (U) Negative Normal NEGATIVE [facility] Comment on above: Performed By: #### U AMIC #### [facility] [address] [place] [address] Dr. Mojgan Daily Hemoglobin Ql (U) Negative Normal NEGATIVE [facility] Comment on above: Performed By: #### U AMIC #### [facility] [address] [place] [address] Dr. Mojgan Daily Ketones Ql (U) Negative Normal NEGATIVE [facility] Comment on above: Performed By: #### U AMIC #### [facility] [address] [address] [address] Mojgan Daily LEUKOCYTES SMALL Abnormal NEGATIVE [facility] Comment on above: Performed By: #### U AMIC #### [facility] [address] [place] [address] Dr. Mojgan Daily MUCOUS NONE SEEN Normal NONE SEEN [facility] Comment on above: Performed By: #### U AMIC #### [facility] [address] [place] [address] Dr. Mojgan Daily Nitrite Ql (U) Negative Normal NEGATIVE [facility] Comment on above: Performed By: #### U AMIC #### [facility] [address] [place] [address] Dr. Mojgan Daily pH (U) 5.0 [pH] Normal 5-9 [facility] Comment on above: Performed By: #### U AMIC #### [facility] [address] [place] [address] Dr. Mojgan Daily RBC NONE SEEN Abnormal 0-2 [facility] Comment on above: Performed By: #### U AMIC #### [facility] [address] [address] [address] Mojgan Daily SPEC GRAVITY 1.025 Normal 1.005-<=1. 025 [facility] Comment on above: Performed By: #### U AMIC #### [facility] [address] [place] [address] Dr. Mojgan Daily UA PROTEIN Negative Normal NEGATIVE/ TRACE [facility] Comment on above: Performed By: #### U AMIC #### [facility] [address] [place], [place] [address] Dr. Mojgan Daily URIC ACID CRYSTALS RARE Normal [facility] Comment on above: Performed By: #### U AMIC #### [facility] [address] [place], [place] [address] Dr. Mojgan Daily Urobilinogen Qn (U) 0.2 {Amanuel'U}/dL Normal 0.2 - 1. 0 [facility] Comment on above: Performed By: #### U AMIC #### [facility] [address] [place], [place] [address] Dr. Mojgan Daily WBC 2-5 Abnormal NONE SEEN [facility] Comment on above: Performed By: #### U AMIC #### [facility] [address] [address] [address] Mojgan Daily MG MAMM SCREEN 3D EBONIE CADon 03-27-2022 MG MAMM SCREEN 3D EBONIE CAD Patient: KARUNA REYNAGA Exam Date: 03/27/2022 : 1945 Gender:F Ordering : DR JAMAL ALVAREZ Admission #: [id number] Family : Order #: [id number] CLICK HERE TO VIEW EXAM RADIOLOGY REPORT [...] [Mass/Vol] 4.0 g/dL 3.9 - 4.9 g/dL [facility] ALP [Catalytic activity/Vol] 55 U/L 34 - 123 U[facility]L [facility] ALT [Catalytic activity/Vol] 16 U/L 7 - 38 U/L [facility] Anion gap [Moles/Vol] 10 mmol/L 9 - 18 mmol/L [facility] AST [Catalytic activity/Vol] 16 U/L 13 - 35 U/L [facility] Bilirubin [Mass/Vol] 0.3 mg/dL 0.2 - 1 .3 mg/dL [facility] Calcium [Mass/Vol] 9.4 mg/dL 8.5 - 10. 2 mg/dL [facility] Chloride [Moles/Vol] 107 mmol/L High 97 - 10 5 mmol/L [facility] CO2 [Moles/Vol] 28 mmol/L 22 - 30 mmol/L [facility] Creatinine [Mass/Vol] 0.81 mg/dL 0.58 - 0.96 mg/dL [facility] Estimated Glomerular Filtration Rate 75 mL/min/1.73m >=60 mL/min/1.7 3m [facility] Glucose [Mass/Vol] 102 mg/dL High 74 - 99 mg/dL [facility] Potassium [Moles/Vol] 4.5 mmol/L 3.7 - 5.1 mmol/L [facility] Protein [Mass/Vol] 6.7 g/dL 6.3 - 8.0 g/dL [facility] Sodium [Moles/Vol] 145 mmol/L High 136 - 144 mmol/L [facility] Urea nitrogen [Mass/Vol] 22 mg/dL High 7 - 21 mg/dL [facility] Office Visit (Cardiology)on 10-21-2021 Follow-up visit Diagnoses/Problems Assessed Pre-operative cardiovascular examination (V72.81) (Z01.810) Sinus bradycardia (427.89) (R00.1) Class 1 obesity with body mass index (BMI) of 30.0 to 30.9 in adult (278.00,V85.30) (E66.9,Z68.30) Former smoker (V15.82) (Z87.891) Quit 1980 Orders Class 1 obesity with body mass index (BMI) of 30.0 to 30.9 in adult Healthy Weight Tips; Status:Complete - Retrospective Authorization; Done: [id number] Pre-operative cardiovascular examination IO EKG Electrocardiogram- 12 Lead; Status:Complete; Done: [id number] SocHx: Former smoker Tobacco Use Screening; Status:Complete; Done: [id number] Patient Instructions Follow up as needed only [...] negative for complaint. Vitals Vital Signs Recorded: [id number] 11:08AMRecorded: [id number] 11:07AM [id number], LUE, [id number], LUE, Sitting [id number], LUE, [id number], LUE, Sitting Heart Rate58, Apical Height4 ft 10 in [id number] lb BMI (more content not included)... Normal TouchBenefitter Tobacco Screening.on 021 Fall risk assessment a) No falls within the last year [facility] [place] 250 DO Work Phone: Tobacco use status [facility] b) No [facility] [place] 250 DO Work Phone: XR Chest 2 [...] by Kole Nino on 10/13/2021 1530 Normal [facility] Specialist Vital Signs Date Time Vital Sign Value Performing Clinician Facility 07-13-2025 19:00-0400 Body height 144.8 cm Pac 1 Work Phone: [facility] 07-13-2025 19:00-0400 Body mass index (BMI) [Ratio] 27.19 kg/m2 Pac 1 Work Phone: [facility] 07-13-2025 19:00-0400 Body weight 57 kg Pac 1 Work Phone: [facility] 07-13-2025 19:00-0400 Diastolic blood pressure 46 mm[Hg] Pac 1 Work Phone: [facility] 07-13-2025 19:00-0400 Heart rate 66 /min Pac 1 Work Phone: [facility] 07-13-2025 19:00-0400 SaO2% (BldA) [Mass fraction] 100 % Pac 1 Work Phone: [facility] 07-13-2025 19:00-0400 Systolic blood pressure 110 mm[Hg] Pac 1 Work Phone: [facility] 06-25-2025 14:17-0400 Body height 144.8 cm Jose Luis Lockhart STILL TENDER Work Phone: [facility] 06-25-2025 14:17-0400 Body mass index (BMI) [Ratio] 27.89 kg/m2 Jose Luis Lockhart STILL TENDER Work Phone: [facility] 06-25-2025 14:17-0400 Body weight 58.47 kg Jose Luis Lockhart STILL TENDER Work Phone: [facility] 06-25-2025 14:17-0400 Diastolic blood pressure 60 mm[Hg] Jose Luis Lockhart STILL TENDER Work Phone: [facility] 06-25-2025 14:17-0400 Heart rate 65 /min Jose Luis Lockhart STILL TENDER Work Phone: [facility] 06-25-2025 14:17-0400 SaO2% (BldA) [Mass fraction] 98 % Jose Luis Lockhart STILL TENDER Work Phone: [facility] 06-25-2025 14:17-0400 Systolic blood pressure 108 mm[Hg] Jose Luis Lockhart STILL TENDER Work Phone: [facility] 06-09-2025 15:17-0400 Body temperature 98.01 [degF] Melissa Castellon MD Work Phone: [facility] 06-09-2025 15:17-0400 Body weight 58.3 kg Melissa Castellon MD Work Phone: [facility] 06-09-2025 15:17-0400 Diastolic blood pressure 58 mm[Hg] Melissa Castellon MD Work Phone: [facility] 06-09-2025 15:17-0400 Heart rate 64 /min Melissa Castellon MD Work Phone: [facility] 06-09-2025 15:17-0400 Respiratory rate 14 /min Melissa Castellon MD Work Phone: [facility] 06-09-2025 15:17-0400 SaO2% (BldA) [Mass fraction] 96 % Melissa Castellon MD Work Phone: [facility] 06-09-2025 15:17-0400 Systolic blood pressure 112 mm[Hg] Melissa Castellon MD Work Phone: [facility] 05-28-2025 15:43-0400 Body height 144.8 cm Jose Luis Lockhart STILL TENDER Work Phone: [facility] 05-28-2025 15:43-0400 Body mass index (BMI) [Ratio] 28.13 kg/m2 Jose Luis Lockhart STILL TENDER Work Phone: [facility] 05-28-2025 15:43-0400 Body weight 58.97 kg Jose Luis Lockhart STILL TENDER Work Phone: [facility] 05-28-2025 15:43-0400 Diastolic blood pressure 72 mm[Hg] Jose Luis Lockhart STILL TENDER Work Phone: [facility] 05-28-2025 15:43-0400 Heart rate 68 /min Jose Luis Lockhart STILL TENDER Work Phone: [facility] 05-28-2025 15:43-0400 SaO2% (BldA) [Mass fraction] 99 % Jose Luis Lockhart STILL TENDER Work Phone: [facility] 05-28-2025 15:43-0400 Systolic blood pressure 118 mm[Hg] Jose Luis Lockhart STILL TENDER Work Phone: [facility] 05-20-2025 14:29-0400 Body height 144.8 cm Patricia Barry MD Work Phone: [facility] 05-20-2025 14:29-0400 Body mass index (BMI) [Ratio] 27.7 kg/m2 Patricia Barry MD Work Phone: [facility] 05-20-2025 14:29-0400 Body weight 58.06 kg Patricia Barry MD Work Phone: [facility] 05-20-2025 14:29-0400 Diastolic blood pressure 54 mm[Hg] Patricia Barry MD Work Phone: [facility] 05-20-2025 14:29-0400 Heart rate 58 /min Patricia Barry MD Work Phone: [facility] 05-20-2025 14:29-0400 Systolic blood pressure 107 mm[Hg] Patricia Barry MD Work Phone: [facility] 05-04-2025 14:40-0400 Diastolic blood pressure 59 mm[Hg] Jamal Alvarez DO Work Phone: [facility] 05-04-2025 14:40-0400 Heart rate 56 /min Jamaltaya Alvarez DO Work Phone: [facility] 05-04-2025 14:40-0400 Respiratory rate 16 /min Jamaltaya Alvarez DO Work Phone: [facility] 05-04-2025 14:40-0400 SaO2% (BldA) [Mass fraction] 100 % Jamaltaya Alvarez DO Work Phone: [facility] 05-04-2025 14:40-0400 Systolic blood pressure 111 mm[Hg] Jamaltaya Alvarez DO Work Phone: [facility] 05-04-2025 13:07-0400 Body height 144.78 cm Jamaltaya Alvarez DO Work Phone: [facility] 05-04-2025 13:07-0400 Body weight 58.06 kg Jamaltaya Alvarez DO Work Phone: [facility] 03-25-2025 14:50-0400 Body height 144.8 cm Jamaltaya Alvarez DO Work Phone: [facility] 03-25-2025 14:50-0400 Body mass index (BMI) [Ratio] 27.85 kg/m2 Jamaltaya Alvarez DO Work Phone: [facility] 03-25-2025 14:50-0400 Body weight 58.38 kg Jamaltaya Alvarez DO Work Phone: [facility] 03-25-2025 14:50-0400 Heart rate 68 /min Jamal Antonio DO Work Phone: [facility] 03-25-2025 14:50-0400 SaO2% (BldA) [Mass fraction] 98 % Jamal Alvarez DO Work Phone: [facility] 03-15-2025 11:24-0400 Heart rate 80 /min Jamal Alvarez DO Work Phone: [facility] 03-15-2025 11:24-0400 Respiratory rate 18 /min Jamal Alvarez DO Work Phone: [facility] 03-15-2025 08:00-0400 Body temperature 97.8 [degF] Jamal Alvarez DO Work Phone: [facility] 03-15-2025 08:00-0400 Diastolic blood pressure 62 mm[Hg] Jamal Alvarez DO Work Phone: [facility] 03-15-2025 08:00-0400 SaO2% (BldA) [Mass fraction] 95 % Jamal Alvarez DO Work Phone: [facility] 03-15-2025 08:00-0400 Systolic blood pressure 96 mm[Hg] Jamal Alvarez DO Work Phone: [facility] 03-15-2025 06:00-0400 Body weight 60.1 kg Jamaltaya Alvarez DO Work Phone: [facility] 03-14-2025 03:38-0400 Body height 144.78 cm Jamal Alvarez DO Work Phone: [facility] 03-14-2025 03:10-0400 Body temperature 98.4 [degF] Jamal Alvarez DO Work Phone: [facility] 03-14-2025 03:10-0400 Diastolic blood pressure 56 mm[Hg] Jamal Alvarez DO Work Phone: [facility] 03-14-2025 03:10-0400 Heart rate 83 /min Jamal Alvarez DO Work Phone: [facility] 03-14-2025 03:10-0400 Inhaled oxygen flow rate 2 L/min Jamal Alvarez DO Work Phone: [facility] 03-14-2025 03:10-0400 Respiratory rate 20 /min Jamal Alvarez DO Work Phone: [facility] 03-14-2025 03:10-0400 SaO2% (BldA) [Mass fraction] 96 % Jamal Alvarez DO Work Phone: [facility] 03-14-2025 03:10-0400 Systolic blood pressure 110 mm[Hg] Jamal Alvarez DO Work Phone: [facility] 03-13-2025 17:22-0400 Body height 144.78 cm Jamal Alvarez DO Work Phone: [facility] 03-13-2025 17:22-0400 Body weight 60.05 kg Jamal Alvarez DO Work Phone: [facility] 03-05-2025 15:03-0400 Body mass index (BMI) [Ratio] 28.26 kg/m2 Jamal Alvarez DO Work Phone: [facility] 03-05-2025 15:03-0400 Body weight 59.24 kg Jamal Alvarez DO Work Phone: [facility] 03-05-2025 15:03-0400 SaO2% (BldA) [Mass fraction] 97 % Jamal Alvarez DO Work Phone: [facility] 08-25-2024 16:13-0400 Body height 144.8 cm Jose Luis Lockhart STILL TENDER Work Phone: [facility] 08-25-2024 16:13-0400 Body mass index (BMI) [Ratio] 29.21 kg/m2 Jose Luis Lockhart STILL TENDER Work Phone: [facility] 08-25-2024 16:13-0400 Body weight 61.24 kg Jose Luis Lockhart STILL TENDER Work Phone: [facility] 08-25-2024 16:13-0400 Diastolic blood pressure 70 mm[Hg] Jose Luis Alstonos STILL TENDER Work Phone: [facility] 08-25-2024 16:13-0400 Heart rate 68 /min Jose Luis Lockhart STILL TENDER Work Phone: [facility] 08-25-2024 16:13-0400 SaO2% (BldA) [Mass fraction] 99 % Jose Luis Lockhart STILL TENDER Work Phone: [facility] 08-25-2024 16:13-0400 Systolic blood pressure 130 mm[Hg] Jose Luis Lockhart STILL TENDER Work Phone: [facility] 04-16-2024 16:24-0400 Diastolic blood pressure 66 mm[Hg] DO Jamal Alvarez Work Phone: [facility] 04-16-2024 16:24-0400 Heart rate 91 /min DO Jamal Alvarez Work Phone: [facility] 04-16-2024 16:24-0400 Systolic blood pressure 133 mm[Hg] DO Jamal Alvarez Work Phone: [facility] 04-16-2024 16:00-0400 Body temperature 97.5 [degF] DO Jamal Alvarez Work Phone: [facility] 04-16-2024 16:00-0400 Respiratory rate 16 /min DO Jamal Alvarez Work Phone: [facility] 04-16-2024 16:00-0400 SaO2% (BldA) [Mass fraction] 98 % DO Jamaltaya Alvarez Work Phone: [facility] 04-16-2024 06:00-0400 Body weight 64.5 kg DO Jamal Antonio Work Phone: [facility] 04-15-2024 14:38-0400 Body height 144.78 cm DO Jamal Antonio Work Phone: [facility] 04-13-2024 20:50-0400 Diastolic blood pressure 88 mm[Hg] DO Jamal Antonio Work Phone: [facility] 04-13-2024 20:50-0400 Heart rate 74 /min DO Jamal Alvarez Work Phone: [facility] 04-13-2024 20:50-0400 Respiratory rate 18 /min DO Jamal Alvarez Work Phone: [facility] 04-13-2024 20:50-0400 SaO2% (BldA) [Mass fraction] 92 % DO Jamal Alvarez Work Phone: [facility] 04-13-2024 20:50-0400 Systolic blood pressure 131 mm[Hg] DO Jamal Alvarez Work Phone: [facility] 04-13-2024 15:54-0400 Body height 149.86 cm DO Jamal Alvarez Work Phone: [facility] 04-13-2024 15:54-0400 Body temperature 97.9 [degF] DO Jamal Alvarez Work Phone: [facility] 04-13-2024 15:54-0400 Body weight 66.5 kg DO Jamal Alvarez Work Phone: [facility] 03-10-2024 13:13-0400 Body height 143.5 cm Judit Lora MD Work Phone: [facility] 03-10-2024 13:13-0400 Body mass index (BMI) [Ratio] 32.2 kg/m2 Judit Lora MD Work Phone: [facility] 03-10-2024 13:13-0400 Body weight 66.32 kg Judit Lora MD Work Phone: [facility] 03-10-2024 13:13-0400 Diastolic blood pressure 78 mm[Hg] Judit Lroa MD Work Phone: [facility] 03-10-2024 13:13-0400 Heart rate 74 /min Judit Lora MD Work Phone: [facility] 03-10-2024 13:13-0400 Systolic blood pressure 118 mm[Hg] Judit Lora MD Work Phone: [facility] 02-22-2024 09:21-0400 Body height 142.24 cm DO Jamal Alvarez Work Phone: [facility] 02-22-2024 09:21-0400 Body weight 65.77 kg DO Jamal Alvarez Work Phone: [facility] 02-21-2024 10:45-0400 Body height 142.24 cm DO Jamaltaya Alvarez Work Phone: [facility] 02-21-2024 10:45-0400 Body mass index (BMI) [Ratio] 33.8 kg/m2 DO Jamal Alvarez Work Phone: [facility] 02-21-2024 10:45-0400 Body weight 68.49 kg DO Jamal Alvarez Work Phone: [facility] 02-21-2024 10:45-0400 Diastolic blood pressure 79 mm[Hg] DO Jamal Antonio Work Phone: [facility] 02-21-2024 10:45-0400 Heart rate 65 /min DO Jamal Alvarez Work Phone: [facility] 02-21-2024 10:45-0400 Systolic blood pressure 131 mm[Hg] DO Jamal Antonio Work Phone: [facility] 02-13-2024 18:46-0400 Body height 142.24 cm DO Jamal Antonio Work Phone: [facility] 02-13-2024 18:46-0400 Body mass index (BMI) [Ratio] 33.9 kg/m2 DO Jamal Antonio Work Phone: [facility] 02-13-2024 18:46-0400 Body temperature 97.1 [degF] DO Jamal Antonio Work Phone: [facility] 02-13-2024 18:46-0400 Body weight 68.6 kg DO Jamal Alvarez Work Phone: [facility] 02-13-2024 18:46-0400 Diastolic blood pressure 80 mm[Hg] DO Jamal Alvarez Work Phone: [facility] 02-13-2024 18:46-0400 Heart rate 74 /min DO Jamal Alvarez Work Phone: [facility] 02-13-2024 18:46-0400 Respiratory rate 18 /min DO Jamal Alvarez Work Phone: [facility] 02-13-2024 18:46-0400 SaO2% (BldA) [Mass fraction] 94 % DO Jamal Alvarez Work Phone: [facility] 02-13-2024 18:46-0400 Systolic blood pressure 110 mm[Hg] DO Jamal Alvarez Work Phone: [facility] 12-28-2023 13:29-0500 Body temperature 97.59 [degF] Ubaldo Dubose MD Work Phone: [facility] 12-28-2023 13:29-0500 Body weight 79.38 kg Ubaldo Dubose MD Work Phone: [facility] 12-28-2023 13:29-0500 Diastolic blood pressure 65 mm[Hg] Ubaldo Dubose MD Work Phone: [facility] 12-28-2023 13:29-0500 Heart rate 67 /min Ubaldo Dubose MD Work Phone: [facility] 12-28-2023 13:29-0500 Respiratory rate 16 /min Ubaldo Dubose MD Work Phone: [facility] 12-28-2023 13:29-0500 SaO2% (BldA) [Mass fraction] 97 % Ubaldo Dubose MD Work Phone: [facility] 12-28-2023 13:29-0500 Systolic blood pressure 137 mm[Hg] Ubaldo Dubose MD Work Phone: [facility] 10-21-2021 11:08-0500 Diastolic blood pressure 70 mm[Hg] Jamal Alvarez Work Phone: [facility] 250 DO Work Phone: 10-21-2021 11:08-0500 Systolic blood pressure 132 mm[Hg] Jamal Alvarez Work Phone: [facility] [facility] DO Work Phone: 10-21-2021 11:07-0500 Body height 147.32 cm Jamal Alvarez Work Phone: [facility] 250 DO Work Phone: 10-21-2021 11:07-0500 Body mass index (BMI) [Ratio] 30.31 kg/m2 Jamal Alvarez Work Phone: [facility] 250 DO Work Phone: 10-21-2021 11:07-0500 Body surface area Derived from formula 1.59 m2 Jamal Alvarez Work Phone: [facility] 250 DO Work Phone: 10-21-2021 11:07-0500 Body weight 65.77 kg Jamal Alvarez Work Phone: [facility] 250 DO Work Phone: 10-21-2021 11:07-0500 Diastolic blood pressure 70 mm[Hg] Jamal Alvarez Work Phone: [facility] 250 DO Work Phone: 10-21-2021 11:07-0500 Heart rate 58 /min Jamal Alvarez Work Phone: [facility] 250 DO Work Phone: 10-21-2021 11:07-0500 Systolic blood pressure 132 mm[Hg] Jamal Alvarez Work Phone: -[facility] 250 DO Work Phone: Encounters Encounter Date Encounter Type Care Provider Facility Start: 07-24-2025 End: 07-29-2025 Clinisync Result Encounter Generic External Data Provider [facility] External Department Unsolicited Start: 07-24-2025 End: 07-29-2025 Clinisync Result Encounter Generic External Data Provider [facility] External Department Unsolicited Start: 07-24-2025 End: 07-25-2025 Evaluation and management of inpatient [facility] Facility:[facility] Start: 07-13-2025 End: 07-13-2025 Office outpatient new 30 minutes Pacc Rej 1 Work Phone: Pre Anesthesia Comment on above: Pre-op evaluation (Primary Dx); Hypercholesteremia; 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 (HCC); Pulmonary hypertension (HCC); Seizure disorder (HCC); Traumatic brain injury, with unknown loss of consciousness status, subsequent encounter; Interstitial lung disease (HCC); TIA (transient ischemic attack); At risk for aspiration pneumonia; 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; Prediabetes Start: 07-13-2025 End: 07-13-2025 Preprocedural examination done Pacc Rej 1 Work Phone: [facility] Start: 07-13-2025 End: 07-13-2025 ambulatory [facility] Facility:[facility] Start: 07-13-2025 Encounter for other preprocedural examination JAMAL ALVAREZ [facility] Start: 07-13-2025 End: 07-13-2025 Telephone encounter Melissa Castellon MD Work Phone: General Surgery Comment on above: Patient Question; Appointment Start: 07-10-2025 End: 07-10-2025 ambulatory [facility] Facility:[facility] Start: 07-10-2025 End: 07-10-2025 Patient encounter procedure Anastasia LANDON Work Phone: Audiology Comment on above: [...] outpatient visit 25 minutes Jose Luis Lockhart STILL TENDER Work Phone: [facility] [place] [facility] Comment on above: Pure hypercholesterolemia [...] Neurology Start: 06-24-2025 End: 06-24-2025 ambulatory SELF Facility:[facility] Start: 06-09-2025 End: 06-09-2025 ambulatory JAMAL ALVAREZ Facility:[facility] Start: 06-09-2025 End: 06-09-2025 Office outpatient new 30 minutes Melissa Castellon MD Work Phone: General Surgery Comment on above: Symptomatic cholelithiasis Start: 06-04-2025 End: 06-04-2025 ambulatory Quintin Sloan PA-C Work Phone: Otolaryngology Comment on above: Peds hearing test with myringotomy with physician following Start: 06-02-2025 End: 06-02-2025 ambulatory JAMAL ALVAREZ Facility:[facility] Start: 05-29-2025 End: 06-01-2025 Refill Ubaldo Dubose MD Work Phone (unformatted): [phone] Pulmonology [facility] Comment on above: Refill Request Start: 05-28-2025 End: 05-28-2025 Office outpatient visit 25 minutes Jose Luis Lockhart STILL TENDER Work Phone: [facility] Comment on above: Generalized abdominal pain (Primary Dx); Diarrhea, unspecified type; Nausea and vomiting, unspecified vomiting type; Other specified intestinal obstruction, unspecified whether partial or complete (HCC); Diverticulosis Start: 05-28-2025 End: 05-28-2025 ambulatory JAMAL HOLLANDMAN Not Available Start: 05-28-2025 End: 05-28-2025 Patient encounter procedure Flex Ramos MD -[facility] Work Phone: Start: 05-28-2025 End: 05-28-2025 ambulatory Jamal Hollandman DO Work Phone: [facility] Work Phone: Start: 05-22-2025 End: 05-22-2025 ambulatory DEE JACKSON Not Available Start: 05-22-2025 End: 05-22-2025 Office outpatient visit 15 minutes Dee Jackson STILL TENDER Work Phone: [facility] Comment on above: Acute bilateral mastoiditis (Primary Dx) ; Other specified hearing loss of both ears Start: 05-20-2025 End: 05-20-2025 Office outpatient new 45 minutes Patricia Barry MD Work Phone: [facility] Comment on above: OME (otitis media with effusion), right (Primary Dx) Start: 05-20-2025 End: 05-20-2025 ambulatory PATRICIA BARRY Not Available Start: 05-20-2025 End: 05-20-2025 Talisha Barry MD Work Phone: [facility] Start: 05-20-2025 End: 05-20-2025 Talisha Barry MD Work Phone: [facility] Start: 05-07-2025 End: 05-07-2025 Patient encounter procedure Jamal Alvarez DO -[facility] [place] Work Phone: Start: 05-07-2025 End: 05-07-2025 ambulatory Jamal Alvarez DO Work Phone: [facility] Work Phone: Start: 05-07-2025 End: 05-07-2025 External Result Encounter Jamal Alvarez DO Work Phone: [facility] External Department Unsolicited Start: 05-07-2025 End: 05-07-2025 External Result Encounter Jamal Alvarez DO Work Phone: [facility] External Department Unsolicited Start: 05-04-2025 ambulatory [facility] Start: 05-04-2025 End: 05-04-2025 ambulatory Imad Asaad Facility:[facility] Start: 05-04-2025 Non-patient / Non-visit Imad Rachel IVY -[facility] Work Phone: Start: 04-08-2025 End: 04-08-2025 Follow-up encounter Jamal Alvarez DO Work Phone: [facility] Comment on above: Ankylosing spondylitis lumbar region (CM S/HCC) (Primary Dx) Start: 04-07-2025 End: 04-07-2025 ambulatory JAMAL ALVAREZ Not Available Start: 03-25-2025 End: 03-25-2025 ambulatory JAMAL ALVAREZ Not Available Start: 03-25-2025 End: 03-25-2025 Transitional care manage srvc 14 day discharge Jamal Alvarez DO Work Phone: [facility] Comment on above: Bronchiectasis [...] Bamboo flowsheet Jamal Alvarez DO Work Phone: [facility] Start: 03-25-2025 End: 03-25-2025 Bamboo flowsheet Jamal Alvarez DO Work Phone: [facility] Start: 03-20-2025 End: 03-20-2025 Refill Lisa William MD, PhD Work Phone: Neurology Start: 03-18-2025 End: 03-18-2025 Chart abstracting Ubaldo Dubose MD Work Phone: Pulmonary Medicine Start: 03-17-2025 End: 03-18-2025 Refill Ubaldo Dubose MD Work Phone: Pulmonology [facility] Comment on above: Refill Request Start: 03-14-2025 Non-patient / Non-visit Jamal Alvarez DO Work Phone: [facility] Work Phone: Start: 03-14-2025 End: 03-15-2025 Evaluation and management of inpatient Jamal Alvarez DO Work Phone: [facility] [place] [facility] Work Phone: Start: 03-05-2025 End: 03-05-2025 Office outpatient visit 25 minutes Jamal Alvarez DO Work Phone: [facility] Comment on above: Bronchiectasis without complication ([facility] /HCC) (Primary Dx); Edema, unspecified type; Recurrent UTI; Seizure ([facility]/HCC); Traumatic brain injury with loss of consciousness, subsequent encounter; DISH (diffuse idiopathic skeletal hyperostosis); Hypothyroidism, unspecified type (CMS/HCC); Combined hyperlipidemia ([facility]); Medicare annual wellness visit, subsequent; Advance care planning Start: 03-05-2025 End: 03-05-2025 Patient encounter procedure Jamal Alvarez DO Work Phone: [facility] Start: 03-05-2025 End: 03-05-2025 ambulatory JAMAL ALVAREZ Not Available Start: 02-25-2025 End: 02-25-2025 ambulatory Jamal Alvarez DO Work Phone: [facility] Work Phone: Start: 02-25-2025 End: 02-25-2025 Departed Referred Jamal Alvarez DO Work Phone: [facility] Start: 02-25-2025 End: 02-25-2025 Clinisync Result Encounter Jamal Alvarez DO Work Phone: [facility] External Department Unsolicited Start: 02-25-2025 End: 02-27-2025 Clinisync Result Encounter Jamal Alvarez DO Work Phone: [facility] External Department Unsolicited Start: 02-25-2025 End: 02-27-2025 External Result Encounter Jamal Alvarez DO Work Phone: [facility] External Department Unsolicited Start: 02-06-2025 End: 02-06-2025 Patient encounter procedure Jamal Alvarez DO Work Phone: [facility] [place] Work Phone: Start: 02-06-2025 End: 02-06-2025 ambulatory Jamal Alvarez DO Work Phone: [facility] Work Phone: Start: 02-06-2025 End: 02-07-2025 External Result Encounter Jamal Alvarez DO Work Phone: [facility] External Department Unsolicited Start: 02-06-2025 End: 02-07-2025 External Result Encounter Jamal Campbell Antonio DO Work Phone: [facility] External Department Unsolicited Start: 01-12-2025 End: 01-13-2025 Telephone encounter Lisa William MD, PhD Work Phone: Neurology Comment on above: Medication Question Start: 12-24-2024 End: 12-24-2024 ambulatory SELF Facility:[facility] Start: 12-24-2024 End: 12-24-2024 Patient encounter procedure Lisa William MD, PhD Work Phone: Neurology Comment on above: 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, intractable (HCC) (Primary Dx) Start: 12-24-2024 End: 12-24-2024 Telemedicine consultation with patient Lisa William MD, PhD Work Phone: Neurology Start: 12-11-2024 End: 12-12-2024 Refill Ubaldo Dubose MD Work Phone: Pulmonology [facility] Comment on above: Refill Request Start: 11-20-2024 End: 11-20-2024 Patient encounter procedure Jamal Antonio DO Work Phone: [facility]-Lab [place] Work Phone: Start: 11-20-2024 End: 11-20-2024 ambulatory Jamal Alvarez DO Work Phone: [facility] Work Phone: Start: 09-08-2024 End: 09-08-2024 Telephone encounter Ubaldo Dubose MD Work Phone: Pulmonary Medicine Comment on above: Missed VV Start: 08-30-2024 End: 09-01-2024 Refill Ubaldo Dubose MD Work Phone: Pulmonology [facility] Comment on above: Refill Request Start: 08-25-2024 End: 08-25-2024 ambulatory JAMAL ALVAREZ Not Available Start: 08-25-2024 End: 08-25-2024 Office outpatient visit 25 minutes Jose Luis Lockhart NP Work Phone: [facility] Comment on above: Recurrent UTI (Primary Dx); [...] Start: 08-13-2024 End: 08-13-2024 ambulatory JAMAL ALVAREZ Facility:[facility] Start: 08-13-2024 End: 08-13-2024 Patient encounter procedure Lisa William MD, PhD Work Phone: Neurology Comment on above: 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, intractable (HCC) (Primary Dx) Start: 08-13-2024 End: 08-13-2024 Telemedicine consultation with patient Lisa William MD, PhD Work Phone: Neurology Start: 08-08-2024 End: 08-08-2024 Clinisync Result Encounter Jamal Adrian Alvarez DO Work Phone: [facility] External Department Unsolicited Start: 08-08-2024 End: 08-08-2024 Clinisync Result Encounter Jamaltaya Alvarez DO Work Phone: [facility] External Department Unsolicited Start: 07-30-2024 End: 08-01-2024 Telephone encounter Lisa William MD, PhD Work Phone: Neurology Comment on above: Orders Start: 06-12-2024 End: 06-12-2024 ambulatory [facility] Ambulatory Start: 06-05-2024 Telephone encounter Ubaldo Dubose MD Work Phone: Pulmonary Medicine Comment on above: Certifcate of Medical Necessity Start: 05-05-2024 End: 05-05-2024 ambulatory Ubaldo Dubose MD Work Phone: Pulmonology [facility] Comment on above: Bronchiectasis without complication (HCC ) (Primary Dx); Yeast infection Start: 05-05-2024 End: 05-05-2024 Telemedicine consultation with patient Ubaldo Dubose MD Work Phone: Pulmonology [facility] Start: 04-30-2024 End: 04-30-2024 ambulatory [facility] [place] Work Phone: Pulmonary Lab Comment on above: Spirometry Start: 04-30-2024 End: 04-30-2024 Patient encounter procedure [facility] [place] Work Phone: Pulmonary Lab Start: 04-22-2024 End: 04-22-2024 Patient encounter procedure Flex Juarez MD Work Phone: Neurosurgery Comment on above: Convulsions, unspecified convulsion type (HCC) (Primary Dx) Start: 04-22-2024 End: 04-22-2024 ambulatory DO Jamal Alvarez Work Phone: [facility] Work Phone: Start: 04-21-2024 Telephone encounter Flex Juarez MD Work Phone: Neurology Comment on above: Future Appointment (NEW PT, [place], ANY ([facility] [facility]? - PT PREF [place])) Start: 04-16-2024 End: 04-16-2024 Non-patient / Non-visit DO Jamal Alvarez Work Phone: [facility] Card[facility] Work Phone: Start: 04-13-2024 End: 04-16-2024 Evaluation and management of inpatient DO Jamal Alvarez Work Phone: [facility] [place] [facility] Work Phone: Start: 03-10-2024 End: 03-10-2024 ambulatory [facility] Ambulatory Start: 03-10-2024 End: 03-10-2024 Office consultation new/estab patient 60 min Judit Lora MD Work Phone: [facility] Comment on above: Shortness of breath; Hyperlipidemia, unspecified hyperlipidemia type; Traumatic brain injury, with unknown loss of consciousness status, sequela ([facility]-HCC); BMI 32.0-32.9,adult; Former smoker; History of traumatic brain injury; Cough, unspecified type; Diabetes mellitus type II, non insulin dependent (Multi); Dysphasia; Abnormal lung sounds; Bronchiectasis without complication (Multi); Medication course changed Start: 03-03-2024 End: 03-03-2024 ambulatory Ubaldo Dubose MD Work Phone: Pulmonology [facility] Comment on above: Bronchiectasis without complication (HCC ) (Primary Dx); Aspiration pneumonitis (HCC); Traumatic brain injury with loss of consciousness, sequela (HCC) Start: 03-03-2024 End: 03-03-2024 Telemedicine consultation with patient Ubaldo Dubose MD Work Phone: Pulmonology [facility] Start: 02-26-2024 Telephone encounter Ubaldo Dubose MD Work Phone: Pulmonology [facility] Comment on above: Appointment Received Outside Med ical Records Start: 02-25-2024 End: 02-25-2024 ambulatory DO Jamal Antonio Work Phone: [facility] Work Phone: Start: 02-25-2024 End: 02-25-2024 Patient encounter procedure DO Jamal Antonio Work Phone: [facility]-CT Scan [place] Work Phone: Start: 02-22-2024 Chart abstracting Yuridia Bourgeois [facility] Pulmonary Medicine Comment on above: Home nebulizer order Start: 02-22-2024 End: 02-22-2024 ambulatory DO Jamal Alvraez Work Phone: [facility] Work Phone: Start: 02-22-2024 End: 02-22-2024 Departed Referred DO Jamal Alvarez Work Phone: [facility]-Digestive Health Work Phone: Start: 02-21-2024 End: 02-21-2024 ambulatory DO Jamal Hollandman Work Phone: [facility] Work Phone: Start: 02-21-2024 End: 02-21-2024 Discharged Recurring DO Jamal Hollandman Work Phone: [facility] [facility] Start: 02-21-2024 Registered Recurring DO Jamal Alvarez Work Phone: [facility] [facility] Start: 02-21-2024 End: 02-21-2024 ambulatory DO Jamal Alvarez Work Phone: [facility] Work Phone: Start: 02-21-2024 End: 02-21-2024 Patient encounter procedure DO Jamal Alvarez Work Phone: [facility] Gastroenterology Work Phone: Start: 02-19-2024 Registered Recurring DO Jamal Alvarez Work Phone: [facility] Start: 02-15-2024 Orders Only Ubaldo Dubose MD Work Phone: Pulmonary Medicine Comment on above: Bronchiectasis without complication (HCC ) (Primary Dx) Start: 02-13-2024 End: 02-13-2024 ambulatory DO Jamal Alvarez Work Phone: [facility] Work Phone: Start: 02-13-2024 End: 02-13-2024 Patient encounter procedure DO Jamal Alvarez Work Phone: [facility] Urgent [facility] [place] Work Phone: Start: 02-12-2024 Registered Recurring DO Jamal Alvarez Work Phone: [facility] Start: 01-23-2024 End: 01-23-2024 ambulatory DO Jamal Alvarez Work Phone: [facility] Work Phone: Start: 01-23-2024 End: 01-23-2024 Patient encounter procedure DO Jamal Alvarez Work Phone: [facility] Work Phone: Start: 01-22-2024 Telephone encounter Ubaldo Dubose MD Work Phone: Pulmonary Medicine Comment on above: Received Outside Medical Records Start: 01-14-2024 Registered Recurring DO Jamal Alvarez Work Phone: [facility] Start: 12-28-2023 End: 12-28-2023 Patient encounter [...] 4.9] Start: 12-25-2023 End: 12-25-2023 ambulatory [facility] [place] Work Phone: Pulmonary Lab Comment on above: Spirometry Start: 12-25-2023 End: 12-25-2023 Patient encounter procedure [facility] [place] Work Phone: [facility] [place] Start: 11-21-2023 End: 11-21-2023 ambulatory DO Jamal Alvarez Work Phone: [facility] Work Phone: Start: 11-21-2023 End: 11-21-2023 Patient encounter procedure DO Jamal Alvarez Work Phone: [facility]-XRay [facility] Work Phone: Start: 10-16-2023 End: 10-16-2023 ambulatory DO Jamal Alvarez Work Phone: [facility] Work Phone: Start: 10-16-2023 End: 10-16-2023 Patient encounter procedure DO Jamal Alvarez Work Phone: [facility]-Lab [place] Work Phone: Start: 02-10-2023 End: 02-10-2023 ambulatory [facility] . Facility:[facility] Start: 12-26-2022 End: 12-26-2022 ambulatory DO Jamal Alvarez Work Phone: [facility] Work Phone: Start: 12-26-2022 End: 12-26-2022 Patient encounter procedure DO Jamal Alvarez Work Phone: [facility] Work Phone: Start: 07-26-2022 Orders Only [...] patient 60 min Jamal Alvarez Work Phone: [facility] [employer] DO Work Phone: Start: 10-21-2021 Office outpatient new 45 minutes Jamal Alvarez Work Phone: [facility] 600 DO Work Phone: Patient encounter status Jamal Alvarez Work Phone: [facility] [employer] DO Work Phone: Procedures Date Procedure Procedure Detail Performing Clinician Start: 07-24-2025 TISS PATH BX REPORT Gen joie External Data Provider Start: 07-10-2025 HEARING TEST/AUDIOGRAM Anastasia Daniel AUD Work Phone: Start: 05-07-2025 ISTAT XRAY CRE Jamal Alvarez DO Work Phone: Start: 05-07-2025 CT of thorax with contrast Jamal Alvarez DO Work Phone: Start: 03-14-2025 Bacteria identified in Blood by Culture Jamal Alvarez DO Work Phone: Start: 03-13-2025 CT angiography of thorax Jamal Alvarez DO Work Phone: Start: 03-13-2025 CT of head without contrast Jaaml Alvarez DO Work Phone: Start: 03-13-2025 Plain chest X-ray Eze Alvarez DO Work Phone: Start: 03-13-2025 Respiratory Panel (PCR) Jamal Alvarez DO Work Phone: Start: 03-13-2025 Urine culture Jamal cope DO Work Phone: Start: 02-25-2025 Culture bacterial quanttative colony count urine Jamal Alvarez DO Work Phone: Start: 02-25-2025 URINE CULTURE - [facility] kali Alvarez DO Work Phone: Start: [...] myocard ial perfusion stress study DO Jamal Alvaerz Work Phone: Start: 04-15-2024 MRI of head [...] Author Start: 02-07-2028 Diabetes Screening Diabetes Screening [facility] Start: 08-24-2027 Diabetes Screening Diabetes Screening [facility] Start: 05-13-2027 Glaucoma screening Diabetes: Retinopathy Screening [facility] Start: 02-19-2027 Diabetes Screening Diabetes Screening [facility] Start: 03-11-2026 End: 03-11-2026 Patient encounter procedure 03/11/2026 4:00 PM EDT Office Visit [facility] [address] [place] [id number] [facility] Start: 03-05-2026 Medicare Annual Wellness (AWV) Medicare Annual Wellnes s (AWV) [facility] Healthcare Start: 02-12-2026 Glaucoma screening Diabetes: Retinopathy Screening [facility] Start: 02-06-2026 Urine screening for protein Diabetes: Urine Protein Screening [facility] Start: 12-22-2025 End: 06-20-2026 CBC W Auto Differential panel - Blood CBC auto differential Lab Routine Acquired hypothyroidism Expected: 12/22/2025 (Approximate), Expires: 06/20/2026 [facility] Comment on above: Expected: 12/22/2025 (Approximate), Expi res: 06/20/2026 Start: 12-22-2025 End: 06-20-2026 Comprehensive metabolic 2000 panel - Serum or Plasma Comprehensive metabolic panel Lab Routine Prediabetes 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 (HCC) Seizure disorder (HCC) Expected: 12/22/2025 (Approximate), Expires: 06/20/2026 [facility] Comment on above: Expected: 12/22/2025 (Approximate), Expi res: 06/20/2026 Start: 12-22-2025 End: 06-20-2026 Hemoglobin a1c with eag Hemoglobin a1c with eag Lab Routine Prediabetes Expected: 12/22/2025 (Approximate), Expires: 06/20/2026 [facility] Work Phone: Comment on above: Expected: 12/22/2025 (Approximate), Expi res: 06/20/2026 Start: 12-22-2025 End: 06-20-2026 Lipid 1996 panel - Serum or Plasma Lipid panel Lab Routine Pure hypercholesterolemia Expected: 12/22/2025 (Approximate), Expires: 06/20/2026 [facility] Comment on above: Expected: 12/22/2025 (Approximate), Expi res: 06/20/2026 Start: 12-22-2025 End: 06-20-2026 Magnesium [Mass/volume] in Serum or Plasma Magnesium Lab Routine Seizure disorder (HCC) Expected: 12/22/2025 (Approximate), Expires: 06/20/2026 [facility] Comment on above: Expected: 12/22/2025 (Approximate), Expi res: 06/20/2026 Start: 12-22-2025 End: 06-20-2026 Thyrotropin [Units/volume] in Serum or Plasma TSH Lab Routine Acquired hypothyroidism Expected: 12/22/2025 (Approximate), Expires: 06/20/2026 [facility] Comment on above: Expected: 12/22/2025 (Approximate), Expi res: 06/20/2026 Start: 10-26-2025 Screening for osteoporosis Bone Density Scan [facility] Start: 09-10-2025 End: 09-10-2025 Patient encounter procedure [facility] Start: 08-10-2025 End: 08-10-2025 Patient encounter procedure 08/10/2025 2:30 PM EDT Office Visit [facility] [address] [place] [id number] Patricia Barry MD [address] [place] [address] [facility] Start: 08-06-2025 End: 08-06-2025 Patient encounter procedure 08/06/2025 3:20 PM EDT Office Visit General Surgery [address] [place], [place] [phone] Melissa Castellon MD [address] [place], [place] [id number] 2 wk s/p Lap trinidad poss open poss grams General Surgery Comment on above: 2 wk s/p Lap trinidad poss open poss grams Start: 08-05-2025 End: 08-05-2025 Clinical Support 08/05/2025 3:00 PM EDT Clinical Support [facility] [address] [place] [address] Tasia Casillas, [facility] [address] [place] [address] [facility] Start: 07-28-2025 Diabetes Screening Diabetes Screening [facility] Start: 07-24-2025 End: 07-24-2025 Admission to same day surgery center 07/24/2025 12:00 PM EDT - 07/24/2025 2:05 PM EDT Surgery [facility] Surgery [address] [place] [address] Melissa Castellon MD [address] [place] [address] LAPAROSCOPIC CHOLECYSTECTOMY POSSIBLE OPEN [facility] Surgery Comment on above: LAPAROSCOPIC CHOLECYSTECTOMY POSSIBLE OP EN Start: 07-24-2025 End: 07-24-2025 Laparoscopy surg cholecystectomy LAPAROSCOPIC CHOLECYSTECTOMY POSSIBLE OPEN Symptomatic cholelithiasis 07/24/2025 12:00 PM EDT AV OR Start: 07-24-2025 Subsequent hospital visit by physician 07/24/2025 12:00 PM EDT Hospital Encounter [facility] Surgery [address] [place] [address] Melissa Castellon MD [address] [place] [address] Symptomatic cholelithiasis [K80.20] [facility] Surgery Comment on above: Symptomatic cholelithiasis [K80.20] Start: 07-14-2025 End: 07-14-2025 Patient encounter procedure 07/14/2025 3:00 PM EDT Office Visit Audiology [address] [address] Dee Pollard, AUD [address] [place], [place] [id number] Audio Audiology Comment on above: Audio Start: 07-13-2025 End: 07-13-2025 Patient encounter procedure 07/13/2025 7:00 PM EDT PAT Pre Anesthesia [address] [place] [address] 1, Pacc Rej [address] [place] [address] Lap trinidad poss open poss grams gen Lauren Pre Anesthesia Comment on above: Lap trinidad poss open poss grams gen Lauren Start: 07-10-2025 End: 07-10-2025 Patient encounter procedure Audiology Comment on above: 60 minute hearing test possible tubes Start: 07-06-2025 Influenza vaccination Influenza Vaccine (#1) [facility] Start: 06-25-2025 End: 06-25-2025 Patient encounter procedure [facility] Start: 06-24-2025 End: 06-24-2025 Follow-up encounter 06/24/2025 3:00 PM EDT [facility] Neurology [address] [place] [address] Lisa William MD, PhD [address] [place] [address] 6 months follow up-Focal epilepsy Neurology Comment on above: 6 months follow up-Focal epilepsy Start: 06-11-2025 End: 06-11-2025 Patient encounter procedure 06/11/2025 3:30 PM EDT Office Visit [facility] [address] [place] [address] [facility] Start: 06-02-2025 End: 06-02-2025 Patient encounter procedure 06/02/2025 3:25 PM EDT Office Visit Otolaryngology [address] [place] [address] Quintin Sloan PA-C [address] [place] [address] Fluid in her ears for a couple months, Quintin mcdonnell[facility] Otol[facility] Comment on above: Fluid in her ears for a couple months, Juan Miguel byrne Start: 05-29-2025 End: 06-27-2025 Basic metabolic 1998 panel - Serum or Plasma Basic metabolic panel Lab Routine Generalized abdominal pain Diarrhea, unspecified type Nausea and vomiting, unspecified vomiting type Other specified intestinal obstruction, unspecified whether partial or complete (HCC) Diverticulosis Expected: 05/29/2025 (Approximate), Expires: 06/27/2025 [facility] Comment on above: Expected: 05/29/2025 (Approximate), Expi res: 06/27/2025 Start: 05-29-2025 End: 06-27-2025 CBC W Auto Differential panel - Blood CBC and differential Lab Routine Generalized abdominal pain Diarrhea, unspecified type Nausea and vomiting, unspecified vomiting type Other specified intestinal obstruction, unspecified whether partial or complete (HCC) Diverticulosis Expected: 05/29/2025 (Approximate), Expires: 06/27/2025 [facility] Comment on above: Expected: 05/29/2025 (Approximate), Expi res: 06/27/2025 Start: 05-29-2025 End: 06-27-2025 Hepatic function 2000 panel - Serum or Plasma Hepatic function panel Lab Routine Generalized abdominal pain Diarrhea, unspecified type Nausea and vomiting, unspecified vomiting type Other specified intestinal obstruction, unspecified whether partial or complete (HCC) Diverticulosis Expected: 05/29/2025 (Approximate), Expires: 06/27/2025 [facility] Comment on above: Expected: 05/29/2025 (Approximate), Expi res: 06/27/2025 Start: 05-29-2025 End: 06-27-2025 Lipase [Enzymatic activity/volume] in Serum or Plasma Lipase Lab Routine Generalized abdominal pain Diarrhea, unspecified type Nausea and vomiting, unspecified vomiting type Other specified intestinal obstruction, unspecified whether partial or complete (HCC) Diverticulosis Expected: 05/29/2025 (Approximate), Expires: 06/27/2025 [facility] Comment on above: Expected: 05/29/2025 (Approximate), Expi res: 06/27/2025 Start: 05-29-2025 End: 06-27-2025 Urinalysis complete panel - Urine Urinalysis with microscopic Lab Routine Generalized abdominal pain Diarrhea, unspecified type Nausea and vomiting, unspecified vomiting type Other specified intestinal obstruction, unspecified whether partial or complete (HCC) Diverticulosis Expected: 05/29/2025 (Approximate), Expires: 06/27/2025 [facility] Comment on above: Expected: 05/29/2025 (Approximate), Expi res: 06/27/2025 Start: 05-29-2025 End: 05-29-2025 Professional / ancillary services management 05/29/2025 12:15 PM EDT Ancillary Procedure [facility] [address] [facility] [place] [address] [facility] Start: 05-28-2025 End: 08-28-2025 CT Abdomen and Pelvis WO and W contrast IV CT abdomen pelvis w and wo IV contrast Imaging Routine Generalized abdominal pain Diarrhea, unspecified type Nausea and vomiting, unspecified vomiting type Other specified intestinal obstruction, unspecified whether partial or complete (HCC) Diverticulosis Expected: 05/28/2025 (Approximate), Expires: 08/28/2025 [facility] Work Phone: Comment on above: Expected: 05/28/2025 (Approximate), Expi res: 08/28/2025 Start: 05-22-2025 End: 05-22-2025 Patient encounter procedure 05/22/2025 1:00 PM EDT Office Visit [facility] IM [address] [place] [phone] [facility] IM Start: 05-20-2025 End: 05-20-2025 Patient encounter procedure 05/20/2025 2:40 PM EDT Office Visit [facility] [address] [facility] [address] [place] [address] Patricia Barry MD [address] [facility] [address] [place] [address] Arrived [facility] Comment on above: Arrived Start: 05-08-2025 Hemoglobin A1c measurement Diabetes: Hemoglobin A1C [facility] Start: 05-04-2025 [facility] Start: 03-15-2025 [facility] Start: 03-14-2025 Bacteria identified in Blood by Culture Blood Culture [facility] Start: 03-14-2025 Microbial culture of sputum [facility] Start: 03-14-2025 Physical therapy procedure [facility] Start: 03-14-2025 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 to travel trailer 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 assembler [facility] Start: 03-14-2025 Referral to occupational therapist [facility] Start: 03-14-2025 End: 03-14-2025 [facility] Start: 03-14-2025 Hospital admission [facility] Start: 03-14-2025 [facility] Start: 03-13-2025 CT angiography of thorax CT angio chest PE protocol [facility] Start: 03-13-2025 CT Chest [facility] Start: 03-13-2025 End: 03-13-2025 Urine culture [facility] Start: 03-13-2025 Bacteria identified in Urine by Culture Urine Culture [facility] Start: 03-05-2025 End: 03-05-2025 Patient encounter procedure 03/05/2025 3:00 PM EDT Office Visit [facility] IM [address] [place] [address] Jamal Alvarez, [address] [place] [address] [facility] IM Start: 02-25-2025 Urine culture [facility] Start: 02-25-2025 Bacteria identified in Urine by Culture [facility] Work Phone: Start: 02-23-2025 End: 02-23-2025 Patient encounter procedure 02/23/2025 3:15 PM EDT Office Visit [facility] IM [address] [place] [address] Jamal Alvarez, [address] [place] [address] [facility] IM Start: 02-23-2025 End: 08-25-2025 CBC panel - Blood by Automated count CBC Lab Routine Medication management Expected: 02/23/2025, Expires: 08/25/2025 [facility] Comment on above: Expected: 02/23/2025, Expires: Start: 02-23-2025 End: 08-25-2025 Comprehensive metabolic 2000 panel - Serum or Plasma Comprehensive metabolic panel Lab Routine 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) Expected: 02/23/2025, Expires: 08/25/2025 [facility] Work Phone: Comment on above: Expected: 02/23/2025, Expires: Start: 02-23-2025 End: 08-25-2025 Hemoglobin a1c with eag Hemoglobin a1c with eag Lab Routine 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) Expected: 02/23/2025, Expires: 08/25/2025 [facility] Comment on above: Expected: 02/23/2025, Expires: Start: 02-23-2025 End: 08-25-2025 Lipid 1996 panel - Serum or Plasma Lipid panel Lab Routine Combined hyperlipidemia (CMS/HCC) Expected: 02/23/2025, Expires: 08/25/2025 [facility] Comment on above: Expected: 02/23/2025, Expires: Start: 02-23-2025 End: 08-25-2025 Thyrotropin [Units/volume] in Serum or Plasma TSH Lab Routine Hypothyroidism, unspecified type (CMS/HCC) Expected: 02/23/2025, Expires: 08/25/2025 [facility] Comment on above: Expected: 02/23/2025, Expires: Start: 02-21-2025 Medicare Annual Wellness (AWV) Medicare Annual Wellnes s (AWV) [facility] Start: 02-21-2025 Thyroid stimulating hormone measurement TSH Level [facility] Start: 02-21-2025 Urine screening for protein Diabetes: Urine Protein Screening [facility] Start: 02-19-2025 Lipid panel Lipid Panel [facility] Start: 02-06-2025 [facility] Start: 02-03-2025 DIABETES SCREEN DIABETES SCREEN [facility] Start: 12-24-2024 End: 12-24-2024 Follow-up encounter 12/24/2024 3:00 PM [facility] Neurology [address] [place] [address] Lisa William MD, PhD [address] [place] [address] Epilepsi follow up Neurology Comment on above: Epilepsi follow up Start: 11-24-2024 Hemoglobin A1c measurement Diabetes: Hemoglobin A1C [facility] Start: 11-14-2024 End: 11-14-2024 Patient encounter procedure 11/14/2024 11:40 AM EST [facility] Neurology [address] [place] [address] Lisa William MD, PhD [address] [place] [address] 3 month virtual visit Neurology Comment on above: 3 month virtual visit Start: 11-05-2024 Advance Directive Discussion Advance Directive Discussion [facility] Start: 11-05-2024 Medicare Advantage Annual Wellness Visit Medicare Advantage Annual Wellness Visit [facility] Start: 10-08-2024 End: 10-08-2024 Patient encounter procedure 10/08/2024 2:00 PM EST [facility] Neurology [address] [place] [address] [facility] [address] [place] [address] New Consult Neurology Comment on above: New Consult Start: 09-08-2024 End: 09-08-2024 ambulatory 09/08/2024 12:30 PM EST [facility] Pulmonology [facility] [address] [place], [place] [id number] Ubaldo Dubose MD [address] [place] [address] MYC VV Pulmonology [facility] Comment on above: MYC VV Start: 08-25-2024 End: 08-25-2024 Patient encounter procedure [facility] Comment on above: Pulmonary hypertension, unspecified (CMS /HCC); Atherosclerosis of aorta (CMS/HCC) Start: 07-06-2024 Covid-19 Vaccine ( season) Covid-19 Vaccine ( season) [facility] Start: 07-06-2024 Covid-19 Vaccine () Covid-19 Vaccine () [facility] Start: 07-06-2024 Influenza vaccination [facility] Start: 06-12-2024 End: 06-12-2024 Patient encounter procedure 06/12/2024 2:45 PM EDT Office Visit [facility] [address] [facility] [address] [place] [address] Judit Lora MD [address] [facility] [address] [place] [address] [facility] Start: 05-21-2024 Hemoglobin A1c measurement Diabetes: Hemoglobin A1C [facility] Start: 05-05-2024 End: 05-05-2024 ambulatory 05/05/2024 3:30 PM EDT [facility] Pulmonology [facility] [address] [place] [address] Ubaldo Dubose MD [address] [place], [place] [id number] MYC VV Pulmonology [facility] Comment on above: MYC VV Start: 05-05-2024 End: 05-05-2024 Patient encounter procedure 05/05/2024 3:30 PM EDT Office Visit Pulmonology [facility] [address] [place] [address] Ubaldo Dubose MD [address] [place] [address] Est pt scheduled per Dr. Dubose 4mo fu pft's Pulmonology [facility] Comment on above: Est pt scheduled per Dr. Dubose 4mo fu pft's Start: 04-30-2024 End: 04-30-2024 ambulatory Pulmonary Lab Comment on above: Est pt scheduled per Dr. 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 to travel trailer components assembler [facility] Start: 04-13-2024 Hospital admission [facility] Start: 04-13-2024 [facility] Start: 04-13-2024 Telemedicine consultation with patient [facility] Start: 04-13-2024 [facility] Start: 03-17-2024 End: 03-10-2025 Basic metabolic 2000 panel - Serum or Plasma Basic Metabolic Panel Lab Routine Shortness of breath Medication course changed Expected: 03/17/2024 (Approximate), Expires: 03/10/2025 [facility] Work Phone: Comment on above: Expected: 03/17/2024 (Approximate), Expi res: 03/10/2025 Start: 03-13-2024 Esophagogastroduodenoscopy DH EGD (Not Applicable) [facility] Start: 03-10-2024 End: 03-10-2025 Natriuretic peptide B [Mass/volume] in Blood B-Type Natriuretic Peptide Lab Routine Shortness of breath Cough, unspecified type Abnormal lung sounds Expected: 03/10/2024 (Approximate), Expires: 03/10/2025 [facility] Work Phone: Comment on above: Expected: 03/10/2024 (Approximate), Expi res: 03/10/2025 Start: 03-10-2024 End: 03-10-2026 US Heart Transthoracic Transthoracic Echo Complete Echocardiography Routine Shortness of breath Cough, unspecified type Abnormal lung sounds Expected: 03/10/2024 (Approximate), Expires: 03/10/2026 [facility] Service Area Work Phone: Comment on above: Expected: 03/10/2024 (Approximate), Expi res: 03/10/2026 Start: 03-03-2024 End: 03-03-2024 Follow-up encounter 03/03/2024 12:30 PM EDT [facility] Pulmonology [facility] [address] [place], [place] [id number] Ubaldo Dubose MD [address] [place] [address] follow up Pulmonology [facility] Comment on above: follow up Start: 02-20-2024 Urine screening for protein Diabetes: Urine Protein Screening [facility] Start: 11-05-2023 Advance Directive Discussion Advance Directive Discussion [facility] Start: 11-05-2023 Behavioral Health Screening Behavioral Health Screening [facility] Start: 11-05-2023 Depression Assessment Depression Assessment [facility] Start: 07-06-2023 COVID-19 Vaccine ( season) COVID-19 Vaccine () [facility] Start: 07-06-2023 Covid-19 Vaccine () Covid-19 Vaccine () [facility] Start: 10-27-2022 Hemoglobin A1c measurement Diabetes: Hemoglobin A1C [facility] Start: 07-26-2022 End: 09-25-2022 CBC W Auto Differential panel - Blood CBC + DIFF Lab Routine Well controlled type 2 diabetes mellitus with neurological manifestations (HCC) Unspecified hypothyroidism Expected: 07/26/2022, Expires: 09/25/2022 [place] Work Phone: Comment on above: Expected: 07/26/2022, Expires: Start: 07-26-2022 End: 09-25-2022 Comprehensive metabolic 2000 panel - Serum or Plasma COMP METABOLIC PANEL Lab Routine Well controlled type 2 diabetes mellitus with neurological manifestations (HCC) Unspecified hypothyroidism Expected: 07/26/2022, Expires: 09/25/2022 [place] Work Phone: Comment on above: Expected: 07/26/2022, Expires: 2 Start: 07-26-2022 End: 09-25-2022 Hepatic function 2000 panel - Serum or Plasma HEPATIC FUNCTION PNL Lab Routine Dermatophytosis of nail Expected: 07/26/2022, Expires: 09/25/2022 [place] Work Phone: Comment on above: Expected: 07/26/2022, Expires: 2 Start: 07-26-2022 End: 09-25-2022 Lipid 1996 panel - Serum or Plasma LIPID PANEL BASIC Lab Routine Well controlled type 2 diabetes mellitus with neurological manifestations (HCC) Unspecified hypothyroidism Expected: 07/26/2022, Expires: 09/25/2022 [place] Work Phone: Comment on above: Expected: 07/26/2022, Expires: 2 Start: 07-26-2022 End: 09-25-2022 Thyrotropin [Units/volume] in Serum or Plasma TSH BLD Lab Routine Well controlled type 2 diabetes mellitus with neurological manifestations (HCC) Unspecified hypothyroidism Expected: 07/26/2022, Expires: 09/25/2022 [place] Work Phone: Comment on above: Expected: 07/26/2022, Expires: 2 Start: 07-06-2022 Influenza vaccination INFLUENZA (#1) [facility] Start: 02-03-2022 End: 04-05-2022 ALBUMIN/CREAT RATIO RND UR [facility] Work Phone: Comment on above: Expected: 02/03/2022, Expires: 2 Start: 02-03-2022 End: 04-05-2022 LIPID PANEL BASIC [place] Work Phone: Comment on above: Expected: 02/03/2022, Expires: 2 Start: 02-03-2022 End: 04-05-2022 Thyrotropin [Units/volume] in Serum or Plasma [place] Work Phone: Comment on above: Expected: 02/03/2022, Expires: 2 Start: 02-03-2022 End: 04-05-2022 Urinalysis complete panel - Urine [place] Work Phone: Comment on above: Expected: 02/03/2022, Expires: 2 Start: 11-05-2021 ADVANCE DIRECTIVE DISCUSSION ADVANCE DIRECTIVE DISCUSSION [facility] Start: 11-05-2021 COVID-19 VACCINE (4 - Booster for Moderna series) COVID-19 VACCINE (4 - Booster for Moderna series) [facility] Start: 08-04-2021 Pneumococcal Vaccine: 65+ (2 of 2 - PCV) Pneumococcal Vaccine: 65+ (2 of 2 - PCV) [facility] Start: 2021 RSV Vaccine (1 - 1-dose 75+ series) RSV Vaccine (1 - 1-dose 75+ series) [facility] Start: 2011 BONE DENSITY BONE DENSITY [facility] Start: 2011 PNEUMOCOCCAL: 65+ (1 - PCV) PNEUMOCOCCAL: 65+ (1 - PCV) [facility] Start: 2011 PNEUMOVAX AGE 65 AND OVER WITH 5YR LOOKBACK (#1) PNEUMOVAX AGE 65 AND OVER WITH 5YR LOOKBACK (#1) [facility] Start: 2006 RSV patients and/or patients aged 60+ years (1 - 1-dose 60+ series) RSV patients and/or patients aged 60+ years (1 - 1-dose 60+ series) [facility] Start: 2006 RSV Vaccine (1 - 1-dose 60+ series) RSV Vaccine (1 - 1-dose 60+ series) [facility] Start: 1996 SHINGRIX VACCINE (1 of 2) SHINGRIX VACCINE (1 of 2) [facility] Start: 1968 DTaP/Tdap/Td Vaccines (1 - Tdap) DTaP/Tdap/Td Vaccines (1 - Tdap) [facility] Start: 1965 Urine microalbumin profile [facility] Start: 1965 Urine screening for protein Diabetes: Urine Protein Screening [facility] Start: 1964 Anxiety Screening Anxiety Screening [facility] Start: 1964 Depression Screening Depression Screening [facility] Start: 1964 HEPATITIS C SCREENING HEPATITIS C SCREENING [facility] Start: 1964 Hepatitis C screening Hepatitis C Screening [facility] Start: 1958 Adult depression screening assessment DEPRESSION SCREENING [facility] Start: 1956 Diabetic foot examination Diabetes: Foot Exam [facility] Start: 1956 Glaucoma screening Diabetes: Retinopathy Screening [facility] Start: 1946 Medicare Annual Wellness (AWV) Medicare Annual Wellnes s (AWV) [facility] Start: 1946 Medicare Annual Wellness Visit Medicare Annual Wellnes s Visit (AWV) [facility] ECG COMPLETE ECG COMPLETE ECG Routine Pre-op evaluation Ordered: 07/13/2025 [place] Work Phone: Comment on above: Ordered: 07/13/2025 End: 04-22-2025 EPIL EEG LONG EPIL EEG LONG NEUROLOGY Routine Convulsions, unspecified convulsion type (HCC) 1 Occurrences starting 04/22/2024 until 04/22/2025 [place] Work Phone: Comment on above: 1 Occurrences starting 04/22/2024 until 04/22/2025 End: 07-30-2025 EPIL EEG LONG EPIL EEG LONG NEUROLOGY Routine Convulsions, unspecified convulsion type (HCC) 1 Occurrences starting 07/31/2024 until 07/30/2025 [place] Work Phone: Comment on above: 1 Occurrences starting 07/31/2024 until 07/30/2025 Glucose measurement estimated from glycated hemoglobin [facility] Hemoglobin A1c/Hemog lobin.total in Blood [facility] End: 01-26-2025 LUNG DIFFUSION CAPACITY (DLCO) LUNG DIFFUSION CAPACITY (DLCO) PFT Routine Bronchiectasis without complication (HCC) 1 Occurrences starting 12/28/2023 until 01/26/2025 [place] Work Phone: Comment on above: 1 Occurrences starting 12/28/2023 until 01/26/2025 LUNG DIFFUSION CAPACITY (DLCO) L RAMÓN DIFFUSION CAPACITY (DLCO) PFT Routine Bronchiectasis without complication (HCC) 04/30/2024 12:59 PM EDT [place] Work Phone: Patient Education [facility] Work Phone: Patient referral [facility] Work Phone: End: 01-26-2025 SPIROMETRY BASELINE ONLY SPIROMETRY BASELINE ONLY PFT Routine Bronchiectasis without complication (HCC) 1 Occurrences starting 12/28/2023 until 01/26/2025 [place] Work Phone: Comment on above: 1 Occurrences starting 12/28/2023 until 01/26/2025 SPIROMETRY BASELINE ONLY SPIROME TRY BASELINE ONLY PFT Routine Bronchiectasis without complication (HCC) 04/30/2024 12:59 PM EDT [place] Work Phone: URINE CULTURE - [facility] URINE CULTU RE - [facility] Lab Routine 02/25/2025 3:30 PM EDT [facility] [employer] Work Phone: URINE MICROALBUMIN B/O URINE ABAD ROALBUMIN B/O Lab Routine Hypothyroidism, adult 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) Mixed hyperlipidemia Ordered: 02/03/2022 [place] Work Phone: Comment on above: Ordered: 02/03/2022 XR Chest 2 Views [facility] XR Lumbar spine 2 or 3 Views XR lumbar spine 2 or 3 views Imaging Routine Lumbar spine pain 06/25/2025 3:37 PM EDT [facility] XR Thoracic spine 2 Views XR tho racic spine 2 views Imaging Routine Chronic midline thoracic back pain 06/25/2025 3:37 PM EDT [facility] Immunizations Immunization Date Immunization Notes Care Provider Darwin crawford 08-25-2024 Seasonal trivalent influenza vaccine, adjuvanted, preservative free Jose Luis Lockhart STILL TENDER Work Phone: [facility] 08-25-2024 influenza virus vacc ine, unspecified formulation Jamal Alvarez DO Work Phone: [facility] 08-23-2023 influenza (aIIV4) vaccine, age 65+ yr, quadrivalent, PF (FLUAD QUAD) Ubaldo Dubose MD Work Phone: [facility] 08-23-2023 influenza virus vacc ine, unspecified formulation Ubaldo Dubose MD Work Phone: [facility] 11-10-2022 COVID-19 mRNA Bivale nt Booster (Moderna) DO Jamal Alvarez Work Phone: [facility] 08-17-2022 influenza, high dose seasonal, preservative-free Ubaldo Dubose MD Work Phone: [facility] 05-30-2022 zoster vaccine recombinant Ubaldo Dubose MD Work Phone: [facility] 02-28-2022 zoster vaccine recombinant Ubaldo Dubose MD Work Phone: [facility] 08-16-2021 influenza, high dose seasonal, preservative-free Jamal Alvarze Work Phone: [facility] 07-06-2021 Moderna COVID-19 Vac cine 100 MCG/0.5ML Intramuscular Suspension Jamal Alvarez Work Phone: [facility] 02-03-2021 Moderna COVID-19 Vac cine 100 MCG/0.5ML Intramuscular Suspension Jamal Alvarez Work Phone: [facility] 01-06-2021 Moderna COVID-19 Vac cine 100 MCG/0.5ML Intramuscular Suspension Jamal Alvarez Work Phone: [facility] 08-04-2020 pneumococcal polysaccharide vaccine, 23 valent Jamal Alvarez Work Phone: [facility] 07-15-2020 AS03 adjuvant Ubaldo Dubose MD Work Phone: [facility] 07-15-2020 Seasonal trivalent influenza vaccine, adjuvanted, preservative free Jamal Alvarez Work Phone: [facility] 09-10-2019 AS03 adjuvant Ubaldo Dubose MD Work Phone: [facility] 09-10-2019 Seasonal trivalent influenza vaccine, adjuvanted, preservative free Jamal Alvarez Work Phone: [facility] 07-25-2018 AS03 adjuvant Ubaldo Dubose MD Work Phone: [facility] 07-25-2018 Seasonal trivalent influenza vaccine, adjuvanted, preservative free Jamal Alvarez Work Phone: [facility] 10-22-2017 influenza, injectabl e, quadrivalent, preservative free Jamal Alvarez Work Phone: [facility] 08-17-2016 influenza, high dose seasonal, preservative-free Jamal Alvarez Work Phone: [facility] 11-20-2014 pneumococcal conjuga te vaccine, 13 valent Judit Lora MD Work Phone: [facility] Work Phone: Payers Date Payer Category Payer Medicare (Managed Care) 1.2. [id number] 2021 Medicare AETNA MEDICARE A ETNA MEDICARE PPO [id number] 2021-Present [phone] [address] [place] [address] PPO [id number] 2021 Medicare [id number] 1959 Medicare [id number] 1959 Private Health Insurance [id number] 1946 Unknown [id number] 93 1946 Unknown [id number] 2.16.840.1.154094.3.579.2.5 93 1946 Unknown [id number] 2.16.840.1.400664.3.579.2.5 93 1946 Unknown [id number] 2.16.840.1.727015.3.579.2.1 244 1946 Unknown [id number] 2.16.840.1.421359.3.579.2.1 244 1946 Unknown [id number] 2.16.840.1.052854.3.579.2.1 259 1946 Unknown [id number] 2.16.840.1.083355.3.579.2.1 259 1946 Unknown [id number] 2.16.840.1.137954.3.579.2.1 259 1946 Unknown [id number] 2.16.840.1.825122.3.579.2.1 259 1946 Unknown [id number] 2.16.840.1.700949.3.579.2.1 259 1946 Unknown [id number] 2.16.840.1.422551.3.579.2.1 259 1946 Unknown [id number] 2.16.840.1.319501.3.579.2.1 259 1946 Unknown [id number] 2.16.840.1.085327.3.579.2.1 259 1946 Unknown [id number] 2.16.840.1.671883.3.579.2.1 259 1946 Unknown [id number] 2.16.840.1.527796.3.579.2.1 259 Medicaid [id number] Medicare [id number] Medicare Medicare [id number] Private Health Insurance [id number] [id number] Private Health Insurance Aetna MCR PFFS M [id number] Self-pay Self Pay [id number] Unknown [id number] Unknown [id number] Unknown AETNA Unknown HCAP/HFA/FAP Active [id number] Social History Date Type Detail Facility Tobacco smoking stat [facility] Unknown if ever smoked [facility] Start: 1945 Sex Assigned At Female F [facility] Start: 06-29-2020 End: 02-22-2024 No caffeine use No caffeine use [place] [address] DO Work Phone: Comment on above: Quit 1979; Start: 06-29-2020 End: 02-22-2024 Tobacco smoking status NHIS Ex-smoker [facility] Start: 11-05-1969 End: 11-05-1979 History of tobacco use Current smoker [facility] Start: 11-05-1969 End: 11-05-1979 History of tobacco use Cigarette Smoker [facility] Start: 06-29-2020 End: 07-16-2025 Alcohol intake Current non-drinker of alcohol (finding) [facility] Start: 1945 Sex Assigned At Not on file C [facility] Start: 06-29-2020 End: 02-22-2024 Tobacco use and exposure Smokeless tobacco non-user [facility] Start: 06-29-2020 End: 02-22-2024 Tobacco use panel [facility] Start: 10-06-2012 National Score (1-10 0), lower number is lower risk Not on file [facility] Start: 03-10-2024 End: 06-25-2025 Alcoholic beverage intake Lifetime non-drinker (finding) [facility] Work Phone: Start: 02-29-2024 End: 03-10-2024 Exposure to SARS-CoV-2 (event) Not sure [facility] History of tobacco use Passive smoker [facility] How often to you hav e a drink containing alcohol? Never [facility] Start: 08-13-2023 Alcohol Comment caffeine: 1-2 cups per day tea [facility] Start: 11-21-2024 End: 03-15-2025 Sex Female (finding) [facility] Start: 03-15-2025 SDOH Follow up SDOH Follow up [facility] Work Phone: Medical Equipment Procedure Code Equipment Code Equipment Origin al Text Equipment Identifier Dates Implantable incontinence-contro l electrical stimulation system ()[id number] FDA Start: 10-25-2021 [id number] FDA Start: 10-25-2021 [id number], [id number], [id number], [id number], [id number] Start: 08-07-2023 Comment on above: USE TO TEST ONCE JOHNNY LY EVERY MORNING. Goals Date Patient Goal Desired Activity /State Personal health goal Functional Status Date Assessment Result Facility 03-14-2025 Functional status Patient at Baseline [facility] Work Phone: 04-16-2024 Functional status Patient at Baseline [facility] Work Phone: Mental Status Date Assessment Result Facility 03-14-2025 Cognitive function Cognitive Sta tus Patient at Baseline [facility] Work Phone: 04-16-2024 Cognitive function Cognitive Sta tus Patient at Baseline [facility] Work Phone: Clinical Notes 10-20-2021 to 07-25-2025 Clinton Desai PA-C - 07/13/2025 7:00 PM EDTBClinton richter PA-C - 07/13/2025 7:00 PM EDTPatient InstructionsTelephone Encounter - Susanna Duran RN - 07/13/2025 2:01 PM EDT Note Date & Type Note Facility 07-25-2025 Note HNO ID: [id number] Author: COLIN NAVARRO PA-C Service: General Surgery Author Type: Physician Trombone Slide Assembler Type: Progress Notes Filed: 07/25/2025 08:11 Note Text: GENERAL SURGERY PROGRESS NOTE SERVICE DATE: 07/25/2025 SERVICE TIME: 8:09 AM SURGEON OF RECORD: Dr. Castellon POD# 1 s/p: laparoscopic cholecystectomy Subjective INTERVAL HPI: naeon pain controlled denies n/v/f/c, polo diet. A little confused/agitated this AM per daughter at bedside this is her baseline. Objective PHYSICAL EXAM: BP 124/68 Pulse 88 Temp (Src) 98.6 (Oral) Resp 16 Ht 4' 9 (1.45m) Wt 126 lb 9.6 oz (57.4kg) SpO2 96% BMI 27.39 kg/(m2). O2 Therapy: Room Air GENERAL: Alert, no distress, cooperative ABDOMEN: Soft, nontender WOUND: Clean, dry and intact DATA: Diagnostic tests reviewed for today's visit: Most recent labs and imaging results. Impression/Recommendations ASSESSMENT: Karuna Reynaga is a 80 year old female with symptomatic cholelithiasis who is now POD# 1 s/p laparoscopic cholecystectomy. Stable, doing fine. PLAN: -check AM labs if ok will DC home this afternoon and will follow-up with Dr. Castellon in 2 weeks I spent a total of 25 minutes on the date of the service which included preparing to see the patient, [id number] patient care, completing clinical documentation, obtaining and/or reviewing separately obtained history, and performing a medically appropriate examination. Colin Navarro PA-C [facility] 07-24-2025 Note HNO ID: [id number] Author: MELISSA CASTELLON MD Service: General Surgery Author Type: Physician Type: Plan of Care Filed: 07/24/2025 20:35 Note Text: General Surgery plan of care note Postop day 0 s/p laparoscopic cholecystectomy for symptomatic cholelithiasis -No complications intraoperatively -Admitted for observation due to medical comorbidities, TBI with dementia and and history of difficult to control postop pain. Patient's POA/daughter Nadira at bedside and assists with redirection. -Diet: Low-fat diet -Multimodal pain control: Scheduled Tylenol, as needed fentanyl, as needed tramadol. Patient sensitive to long acting narcotics which cause significant delirium and sedation. -Delirium precautions, avoid polypharmacy -Saline lock IV fluids -Home medications reordered. Can restart Plavix 48 hours postop -Recent constipation: Twice daily Colace and as needed simethicone -If pain is well-controlled tomorrow afternoon and patient is tolerating diet, may DC home Melissa Castellon MD [facility] 07-24-2025 Note HNO ID: [id number] Author: BESSIE VERGARA APRN.GAS METER MECHANIC Service: ? Author Type: Nurse Acoustic Intelligence Specialist Type: Anesthesia Procedure Notes Filed: 07/24/2025 13:33 Note Text: ANESTHESIOLOGY PROCEDURE NOTE Airway General Information Procedure Start Time/Medication Administration: 07/24/2025 1:15 PM Procedure End Time: 07/24/2025 1:15 PM Patient location during procedure: OR Patient identity confirmed: arm band and patient Staffing Anesthesiologist: Andry Mills MD GAS METER MECHANIC: Bessie Vergara APRN.GAS METER MECHANIC Performed by: GAS METER MECHANIC Indications and Patient Condition Indications for airway management: anesthesia Preoxygenated: yes anesthesia circuit Patient position: sniffing Method: asleep Difficult Mask: No Final Airway Details Final airway type: endotracheal airwayFinal Endotracheal Airway: ETT Cuffed: yes Successful intubation technique: video laryngoscopy Devices used: Silva and intubating stylet Endotracheal tube insertion site: oral Blade size: #3 ETT size (mm): 6.5 Measured from: lips Measurement (cm): 18 Placement verified by: capnometry Cormack-Lehane Classification: grade I - full view of glottis Number of attempts at approach: 1 Airway not difficult Comments Good visualization of cords. 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 ETT taped at 18 cm at lip. SIGNATURE: Bessie Veragra APRN.CRNA PATIENT NAME: Karuna Reynaga DATE: July 24, 2025 TIME: 1:25 PM CSN: [id number] [facility] 07-13-2025 History and physical note Images from the original note were not included. SERVICE DATE: 07/13/2025 SERVICE TIME: 2:34 PM Surgeon: Melissa Castellon MD Type of surgery: LAPAROSCOPIC CHOLECYSTECTOMY POSSIBLE OPEN Patient scheduled for surgery on 07/24/25 Surgery Location: [facility] BP 110/46 Pulse 66 Ht 4' 9 (1.45m) Wt 125 lb 10.6 oz (57.0kg) SpO2 100% BMI 27.19 kg/(m^2). CC: Patient presents with: Anesthesia Consult HPI: Karuna Reynaga is a 80 year old year old FEMALE with recent CPE completed on 06/25/25 located in Care Every[facility] by Dr. Lockhart. Encounter reviewed with patient.'s daughter Patient daughter denies changes. Pt is pleasant but is a poor historian due to h/o TBI PAST MEDICAL HISTORY Diagnosis Date Stroke (HCC) Traumatic brain injury (HCC) PAST SURGICAL HISTORY Procedure Later[facility] PAST SURGICAL HISTORY OF bladder stimulator insert, and removal PAST SURGICAL HISTORY OF 2002 tracheostomy, from [facility] PAST SURGICAL HISTORY OF 2022 hysteroscopy w/polypectomy FAMILY HISTORY Problem Relation Age of Onset Thyroid Daughter hypothyroidism Coronary Artery Disease Brother Stroke Sister Stroke Mother Cancer Sister cervical SOCIAL HISTORY[1] brexpiprazole (REXULTI) 0.25 mg tablet Take 0.5 mg by mouth once daily. [START ON 09/18/2025] cannabidiol (EPIDIOLEX) 100 mg/mL [...] daily. MULTIVITAMIN TAB Take one(1) tablet daily. ALLERGIES Allergen Reactions Darvocet A500 [Prop* Rash Latex Rash Midazolam Mental Status Change Opioids - Morphine * Mental Status Change, Unknown Other Reaction(s): unknown Penicillins Rash Propoxyphene Other: See Comments Other Reaction(s): unknown Strawberries Rash Sulfa (Sulfonamide * Rash REVIEW OF SYSTEMS GENERAL: No weight loss, malaise or fevers RESPIRATORY: pt denies current cough, congestion or worsening SOB CARDIOVASCULAR: Negative for chest pain, leg swelling, CHF or palpitations GI: See HPI HEMATOLOGY/LYMPHOLOGY: Negative for prolonged bleeding, bruising easily or swollen nodes, +Plavix use ENDOCRINE: Negative for cold or heat intolerance, polyuria, polydipsia and goiter NEURO: +seizures (absent), h/o TBI, dementia PHYSICAL EXAMINATION: No acute distress, Healthy appearance, Confused Lungs clear to auscultation. No wheezing, rhonchi, rales. RRR without murmur, gallop, or rubs. No ectopy Laboratory and Testing: CBC:05/28/25 BMP: 05/28/25 Hemoglobin A1C (%) Date Value 07/28/2022 5.9 07/24/2018 6.0 EKG READING: Unconfirmed - NSR, preliminary OTHER TESTS: Stress Test: Date: 04/2024, Results: Echo: Date: 2023, Results: Chest x-ray February 2024-increased interstitial markings throughout both lungs greatest within the right upper lobe lingula and both posterior basilar regions no pulmonary edema or pleural effusion persistent right medial hemidiaphragm event duration Chest CT February 2024-diffuse groundglass interstitial prominence basilar atelectasis/scarring METS: Walk indoors, such as around the house (1.75 METs) Do light work around the house, such as dusting or washing dishes (2.70 METs) Take care of self; that is eating, dressing, bathing, using the toilet (2.75 METs) Walk a block or two on level ground (2.75 METs) Climb a flight of stairs or walk up a hill (5.50 METs) Patient denies any chest pain or undue shortness of breath with the above physical activity. ASSESSMENT: Hypercholesteremia Assessment: stable , well controlled Most recent lipid panel WNL Pulmonary hypertension (HCC) Assessment: mild per echo 2023 RVSP was 38 Seizure disorder (HCC) Assessment: STABLE WITH medication Neuro optimization letter scanned into [employer] on 06/11 with recommendations for pt to take meds dos TBI (traumatic brain injury) (HCC) Assessment: STML, Interstitial lung disease (HCC) Assessment: stable, chronic with current regimen Pt on ozempic and zithromax 3x/week to help prevent bronchectasis Spirometry: 2023 Interpretive Statements Daughter present during testing. Best test reported despite difficult testing session. Acceptability and/or repeatability criteria not met despite patient's best efforts. Early termination of expiration and no valid expiratory plateau per ATS/ERS guidelines. The two largest FVCs and FEV1s were repeatable. The two largest DLCO values were repeatable. //AP IMPRESSION: Spirometry is normal. The diffusing capacity is normal TIA (transient ischemic attack) Assessment: stable, pt on plavix lobsterman Ok to hold per neurology scanned into epic Instructed pt to hold 5 days prior to procedure At risk for aspiration pneumonia Assessment: h/o previous tracheostomy with vocal cord paralysis. reported by daughter who is director career. H/o micro aspiration in past 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 (HCC) Assessment: with agitation Pt recently started on rexulti Discussed concerns with post op dementia/deliurium with daughter Daughter wants to avoid versed 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 Assessment: pt has ok to hold plavix for 5 days prior to procedure Prediabetes Assessment: most recent a1c was 6 Pt is currently on ozempic, instructions with min of 7 day hold given to patient and daughter ANESTHESIA FINDINGS: Intubation History: No history of difficult intubation Significant Anesthesia Considerations: risk of aspiration pneumonia per daughter due to vocal cord paralysis from previous tracheostomy. Daughter is requesting small tube size to avoid trauma to vocal cords Airway Exam: General: Normal appearance Mallampati Score is CLASS II ULBT: Class II - Lower incisors can bite the upper lip below the katie line Neck: Normal appearance and function, Distance from hyoid to mentum during neck extension is at least 3 finger breaths Mouth: Normal tongue size and Mouth opening greater than 2 finger breaths Dentition: Intact Airway History: No abnormal airway history STOP BANG Score: Criteria: Age over 50 (80 year old) Score = 2 PLAN This patient is optimally prepared for surgery. CONSULTS: Patient does not require consults for optimization at this time. Case reviewed with kecia Salinas to proceed. Discussed h/o tracheostomy with vocal cord paralysis. Discussed with daughter that her requested airway management with LMA for laproscopic cholecystectomy is not possible, spinal anesthesia is not possible for said procedure. The Following Tests/Procedures Have Been Initiated: Orders Placed This Encounter brexpiprazole (REXULTI) 0.25 mg tablet Sig: Take 0.5 mg by mouth once daily. ECG (IN OFFICE) , Labs not indicated per [facility] protocol Planned Anesthetic: Per anesthesia choice Instructions Given to Patient: Instructions located in the after visit summary. Patient given verbal and written preop instructions and voices comprehension and compliance. SIGNATURE: Clinton Desai PA-C PATIENT NAME: Karuna Reynaga DATE: July 13, 2025 TIME: 2:33 PM I spent a total of 45 minutes on the date of the service which included preparing to see the patient, [id number] patient care, completing clinical documentation, obtaining and/or reviewing separately obtained history, performing a medically appropriate examination, counseling and educating the patient/family/caregiver, and communicating with other HCPs (not separately reported). [1] Social History Tobacco Use Smoking status: Former Current packs/day: 0.00 Average packs/day: 1 pack/day for 10.0 years (10.0 ttl pk-yrs) Types: Cigarettes Start date: 11/05/1969 Quit date: 11/05/1979 Years since quittin.7 Smokeless tobacco: Never Vaping Use Vaping status: Never Used Substance Use Topics Alcohol use: No Drug use: No [facility] 07-13-2025 History and physical note Images from the original note were not included. SERVICE DATE: 07/13/2025 SERVICE TIME: 2:34 PM Surgeon: Melissa Castellon MD Type of surgery: LAPAROSCOPIC CHOLECYSTECTOMY POSSIBLE OPEN Patient scheduled for surgery on 07/24/25 Surgery Location: [facility] BP 110/46 Pulse 66 Ht 4' 9 (1.45m) Wt 125 lb 10.6 oz (57.0kg) SpO2 100% BMI 27.19 kg/(m^2). CC: Patient presents with: Anesthesia Consult HPI: Karuna Reynaga is a 80 year old year old FEMALE with recent CPE completed on 06/25/25 located in Care Everywhere by Dr. Lockhart. Encounter reviewed with patient.'s daughter Patient daughter denies changes. Pt is pleasant but is a poor historian due to h/o TBI PAST MEDICAL HISTORY Diagnosis Date Stroke (HCC) Traumatic brain injury (HCC) PAST SURGICAL HISTORY Procedure Laterality Date EGD W/O [facility] SPEC VARICIES INJ 2024 PAST SURGICAL HISTORY OF bladder stimulator insert, and removal PAST SURGICAL HISTORY OF 2002 tracheostomy, from [facility] PAST SURGICAL HISTORY OF 2022 hysteroscopy w/polypectomy FAMILY HISTORY Problem Relation Age of Onset Thyroid Daughter hypothyroidism Coronary Artery Disease Brother Stroke Sister Stroke Mother Cancer Sister cervical SOCIAL HISTORY[1] brexpiprazole (REXULTI) 0.25 mg tablet Take 0.5 mg by mouth once daily. [START ON 09/18/2025] cannabidiol (EPIDIOLEX) 100 mg/mL [...] daily. MULTIVITAMIN TAB Take one(1) tablet daily. ALLERGIES Allergen Reactions Darvocet A500 [Prop* Rash Latex Rash Midazolam Mental Status Change Opioids - Morphine * Mental Status Change, Unknown Other Reaction(s): unknown Penicillins Rash Propoxyphene Other: See Comments Other Reaction(s): unknown Strawberries Rash Sulfa (Sulfonamide * Rash REVIEW OF SYSTEMS GENERAL: No weight loss, malaise or fevers RESPIRATORY: pt denies current cough, congestion or worsening SOB CARDIOVASCULAR: Negative for chest pain, leg swelling, CHF or palpitations GI: See HPI HEMATOLOGY/LYMPHOLOGY: Negative for prolonged bleeding, bruising easily or swollen nodes, +Plavix use ENDOCRINE: Negative for cold or heat intolerance, polyuria, polydipsia and goiter NEURO: +seizures (absent), h/o TBI, dementia PHYSICAL EXAMINATION: No acute distress, Healthy appearance, Confused Lungs clear to auscultation. No wheezing, rhonchi, rales. RRR without murmur, gallop, or rubs. No ectopy Laboratory and Testing: CBC:05/28/25 BMP: 05/28/25 Hemoglobin A1C (%) Date Value 07/28/2022 5.9 07/24/2018 6.0 EKG READING: Unconfirmed - NSR, preliminary OTHER TESTS: Stress Test: Date: 04/2024, Results: Echo: Date: 2023, Results: Chest x-ray February 2024-increased interstitial markings throughout both lungs greatest within the right upper lobe lingula and both posterior basilar regions no pulmonary edema or pleural effusion persistent right medial hemidiaphragm event duration Chest CT February 2024-diffuse groundglass interstitial prominence basilar atelectasis/scarring METS: Walk indoors, such as around the house (1.75 METs) Do light work around the house, such as dusting or washing dishes (2.70 METs) Take care of self; that is eating, dressing, bathing, using the toilet (2.75 METs) Walk a block or two on level ground (2.75 METs) Climb a flight of stairs or walk up a hill (5.50 METs) Patient denies any chest pain or undue shortness of breath with the above physical activity. ASSESSMENT: Hypercholesteremia Assessment: stable , well controlled Most recent lipid panel WNL Pulmonary hypertension (HCC) Assessment: mild per echo 2023 RVSP was 38 Seizure disorder ([facility]) Assessment: STABLE WITH medication Neuro optimization letter scanned into [employer] on 06/11 with recommendations for pt to take meds dos TBI (traumatic brain injury) ([facility]) Assessment: STML, Interstitial lung disease ([facility]) Assessment: stable, chronic with current regimen Pt on ozempic and zithromax 3x/week to help prevent bronchectasis Spirometry: 2023 Interpretive Statements Daughter present during testing. Best test reported despite difficult testing session. Acceptability and/or repeatability criteria not met despite patient's best efforts. Early termination of expiration and no valid expiratory plateau per ATS/ERS guidelines. The two largest FVCs and FEV1s were repeatable. The two largest DLCO values were repeatable. //AP IMPRESSION: Spirometry is normal. The diffusing capacity is normal TIA (transient ischemic attack) Assessment: stable, pt on plavix lobsterman Ok to hold per neurology scanned into [facility] Instructed pt to hold 5 days prior to procedure At risk for aspiration pneumonia Assessment: h/o previous tracheostomy with vocal cord paralysis. reported by daughter who is director career. H/o micro aspiration in past 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 ([facility]) Assessment: with agitation Pt recently started on rexulti Discussed concerns with post op dementia/deliurium with daughter Daughter wants to avoid versed 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 Assessment: pt has ok to hold plavix for 5 days prior to procedure Prediabetes Assessment: most recent a1c was 6 Pt is currently on ozempic, instructions with min of 7 day hold given to patient and daughter ANESTHESIA FINDINGS: Intubation History: No history of difficult intubation Significant Anesthesia Considerations: risk of aspiration pneumonia per daughter due to vocal cord paralysis from previous tracheostomy. Daughter is requesting small tube size to avoid trauma to vocal cords Airway Exam: General: Normal appearance Mallampati Score is CLASS II ULBT: Class II - Lower incisors can bite the upper lip below the katie line Neck: Normal appearance and function, Distance from hyoid to mentum during neck extension is at least 3 finger breaths Mouth: Normal tongue size and Mouth opening greater than 2 finger breaths Dentition: Intact Airway History: No abnormal airway history STOP BANG Score: Criteria: Age over 50 (80 year old) Score = 2 PLAN This patient is optimally prepared for surgery. CONSULTS: Patient does not require consults for optimization at this time. Case reviewed with kecia Salinas to proceed. Discussed h/o tracheostomy with vocal cord paralysis. Discussed with daughter that her requested airway management with LMA for laproscopic cholecystectomy is not possible, spinal anesthesia is not possible for said procedure. The Following Tests/Procedures Have Been Initiated: Orders Placed This Encounter brexpiprazole (REXULTI) 0.25 mg tablet Sig: Take 0.5 mg by mouth once daily. ECG (IN OFFICE) , Labs not indicated per [facility] protocol Planned Anesthetic: Per anesthesia choice Instructions Given to Patient: Instructions located in the after visit summary. Patient given verbal and written preop instructions and voices comprehension and compliance. SIGNATURE: Clinton Desai PA-C PATIENT NAME: Karuna Reynaga DATE: July 13, 2025 TIME: 2:33 PM I spent a total of 45 minutes on the date of the service which included preparing to see the patient, [id number] patient care, completing clinical documentation, obtaining and/or reviewing separately obtained history, performing a medically appropriate examination, counseling and educating the patient/family/caregiver, and communicating with other HCPs (not separately reported). [1] Social History Tobacco Use Smoking status: Former Current packs/day: 0.00 Average packs/day: 1 pack/day for 10.0 years (10.0 ttl pk-yrs) Types: Cigarettes Start date: 11/05/1969 Quit date: 11/05/1979 Years since quittin.7 Smokeless tobacco: Never Vaping Use Vaping status: Never Used Substance Use Topics Alcohol use: No Drug use: No documented in this encounter [facility] 07-13-2025 Instructions Clinton Desai PA-C - 07/13/2025 2:48 PM EDT Images from the original note were not included. [facility] PATIENT PREOPERATIVE INSTRUCTIONS Melissa Castellon MD has scheduled you for your procedure at this surgery center: [facility]: [phone] --[id number] [place] [address]. Please enter through the entrance closest to [facility]. Please read below carefully for your personalized instructions. Dietary Restrictions: - No solid food after midnight. - You may have 12 ounces of clear liquids (water, clear juices such as apple juice or gatorade, carbonated beverages, clear tea, black coffee, jello) until 2 hours before scheduled arrival at facility. Medications: Unless instructed differently below, stay on all of your medications until your surgery. Pre-Surgery Med Instructions Medication Instructions brexpiprazole (REXULTI) 0.25 mg tablet Continue evening dose [START ON 09/18/2025] cannabidiol (EPIDIOLEX) 100 mg/mL oral liquid Do not take the day of surgery OZEMPIC 1 mg/dose (4 mg/3 mL) pen Hold 7 days before surgery. Last dose 07/16. omeprazole (PRILOSEC) 40 mg capsule Use day of surgery. fluticasone (FLONASE) 50 mcg/actuation nasal spray Continue as needed fexofenadine (KELSEY) 180 mg tablet Continue evening dose furosemide (LASIX) 20 mg tablet Do not take the day of surgery nitrofurantoin monohydrate and macrocrystal (MACROBID) 100 mg capsule Use day of surgery. simvastatin (ZOCOR) 20 mg tablet Continue evening dose oxybutynin XL (DITROPAN XL) 5 mg 24 hr tablet Use day of surgery. azithromycin (ZITHROMAX) 250 mg tablet Continue as needed Cholecalciferol, Vitamin D3, 50 mcg (2,000 unit) cap Do not take the day of surgery estradiol (ESTRACE) 0.01 % (0.1 mg/gram) vaginal cream Do not take the day of surgery Ibandronate 150 mg tablet Use day of surgery. liothyronine (CYTOMEL) 5 mcg tablet Use day of surgery. levothyroxine (SYNTHROID) 50 mcg tablet Use day of surgery. clopidogrel bisulfate(PLAVIX 75 MG TAB) Hold 5 days before surgery. Last dose 07/18. CALCIUM 500 MG TAB Do not take the day of surgery MULTIVITAMIN TAB Do not take the day of surgery If you take any medications for erectile dysfunction-Cialis (Tadalafil), Levitra, Staxyn (Vardenafil) Viagra (Sildenenafil please do not take these for 48 hours before surgery. If you start any new medications after today's visit, please contact the surgeon's office. If you are currently using a [id number]-bod-dzeb injectable or oral medication for diabetes or weight loss such as Dulaglutide (Trulicity), Exenatide (Byetta, Bydureon), Liraglutide (Victoza, Saxenda), Semaglutide (Ozempic, Wegovy, Rybelsus), or Tirzepatide (Mounjaro), the medicine should be stopped at least 7 days before surgery. These medicines can cause food to remain in your stomach for a very long time and increase the risks from surgery and anesthesia. Not stopping the medication for a long enough time may result in your surgery being rescheduled. Blood Thinning Medications: - Stop NSAIDS (Ibuprofen, Advil, Aleve, Motrin, Celebrex, Mobic, etc.) 7 days before surgery, as directed by your surgeon. - Stop Aspirin 7 days before surgery, as directed by your surgeon. - Stop Plavix 5 days before surgery or as directed by physician. - Stop ALL herbal and dietary supplements 7 days before surgery. - You may take Tylenol (Acetaminophen) or any of your pain medications that do not contain aspirin or NSAIDS as needed. Important Reminders: - If you use CPAP/BIPAP, bring the machine with you to the surgery center. - If you are prescribed inhalers for breathing, continue using them. - Candy, mints, and tobacco products are NOT permitted the morning of surgery. - Hearing aids, dentures and glasses may be worn the morning of surgery. - NO jewelry, body piercings, makeup, hairpins or contacts are to be worn the day of surgery. If you develop symptoms such as a fever, cold, or flu, or have other changes to your health within TWO DAYS of scheduled surgery or the morning of surgery, please contact the surgery center above. Personal Belongings: -Please have photo ID and insurance cards. -If you do not have a copy of advance directives on file with us, please bring a copy with you on the day of surgery. - Leave ALL valuables and money at home or with family members. - Please bring high-quality footwear, such as sneakers, to the hospital for ambulating post-surgery. For Outpatient Procedures: - YOU MUST HAVE A RESPONSIBLE SUEDING MACHINE OPERATOR TAKE YOU HOME. A BAKERY DECORATOR OR BRANCH SERVICE ASSOCIATE CANNOT BE MADE A RESPONSIBLE SUEDING MACHINE OPERATOR. - We recommend that a responsible person stays with you overnight to take care of you. - You cannot stay in a hotel alone after outpatient surgery. You will not be permitted to have your surgery, if you do not have someone to take care of you. Arrival Time for Surgery: - The Surgery Center or hospital where you are having surgery will call the afternoon before surgery (or Sunday for Sunday surgery) with a scheduled arrival time. - If you have not heard by 4 pm, please contact the surgery center above. Please be aware that emergency situations arise, which may delay or change your surgical time. If this happens, we will notify you as soon as possible and regret any inconvenience. If you already have an Advance Directive, please fax a copy to [phone] or email to for it to be added to your chart. If you do not have an Advance Directive, you can find the appropriate form and more information at [email or web address]. We recommend that you complete the Advance Directive form found on the website and bring it with you the day of your surgery. It can be witnessed and scanned into your chart that day. Clinton Desai PA-C documented in this encounter [facility] 07-13-2025 Telephone encounter Note Patient's daughter calling. Patient scheduled for LAP CHOLEY on 07/24/25. Patient is experiencing more frequent discomfort. Asking if any sooner OR times are available? Please call Nadira @ [phone] ok to leave VM, (there is a 30 sec delay before the beep ) [phone] [facility] [place] 07-13-2025 Miscellaneous Notes Patient's daughter calling. Patient scheduled for LAP CHOLEY on 07/24/25. Patient is experiencing more frequent discomfort. Asking if any sooner OR times are available? Please call Nadira @ [phone] ok to leave VM, (there is a 30 sec delay before the beep ) [phone] documented in this encounter [facility] 07-10-2025 Note HNO ID: [id number] Author: HUMBLE SIMEON MD Service: ? Author Type: Physician Type: Progress Notes Filed: 07/12/2025 15:03 Note Text: SECTION OF OTOLOGY, NEUROTOLOGY AND LATERAL SKULL BASE SURGERY Head and Neck [place] Quintin Sloan PA-C Chief Complaint: Concern for [...] ears dry. --Return to clinic PRN. Humble Siemon III, MD Recording using [employer] software for draft documentation of the visit was discussed with the patient/authorized labor service representative; all questions welcomed and answered. Patient/authorized labor service representative agreed to proceed [facility] 07-10-2025 History of Present illness Narrative Images from the original note were not included. SECTION OF OTOLOGY, NEUROTOLOGY AND LATERAL SKULL BASE SURGERY Head and [place]ck [place] Quintin Sloan PA-C Chief Complaint: Concern for [...] PRN. Humble Simeon III, MD Recording using ambient AdRoll software for draft documentation of the visit was discussed with the patient/authorized labor service representative; all questions welcomed and answered. Patient/authorized labor service representative agreed to proceed documented in this encounter [facility] [place] 07-10-2025 Note HNO ID: [id number] Author: ANASTASIA KRAUS AUD Service: ? Author Type: Fishing Rod Marker Type: Progress Notes Filed: 07/10/2025 15:52 Note Text: [facility] Head and Neck Department Section of Audiology TYMPANOMETRY ONLY Name: Karuna Reynaga [facility]#: [id number] Date of Service: 07/10/2025 Date of : 1945 Age: [age] year old Referred by: Humble Simeon MD Referred for: Evaluation of suspected change in hearing, tinnitus, or balance. Referral documented: In an order in [facility] (procedures tab) Karuna Reynaga was seen [...] evaluation of middle ear function. CPT code: 54211 RIGHT EAR: Normal ME function. LEFT EAR: Normal ME function. RECOMMENDATIONS *Continue medical follow up with Humble Simeon MD. *Return for audiogram (60 minutes) on 07/14/2025 if medically indicated. Fransisco Colon, [facility] Fishing Rod Marker [place] Abbrev- iation Definition Degree of hearing sensitivity dB range WNL within normal limits WNL 0 - 20 SNHL sensorineural hearing loss Mild 20-40 CHL conductive hearing loss Moderate 40-55 MHL mixed hearing loss Moderately-Severe 55-70 WRS word recognition score Severe 70-90 ME middle ear Profound 90 + TM tympanic membrane [facility] 07-10-2025 History of Present illness Narrative Images from the original note were not included. [facility] Surgical [place] Head and Neck Department Section of Audiology TYMPANOMETRY ONLY Name: Karuna Reynaga [facility]#: [id number] Date of Service: 07/10/2025 Date of : 1945 Age: [age] year old Referred by: Humble Simeon MD Referred for: Evaluation of suspected change in hearing, tinnitus, or balance. Referral documented: In an order in [facility] (procedures tab) Karuna Reynaga was seen [...] evaluation of middle ear function. CPT code: 31576 RIGHT EAR: Normal ME function. LEFT EAR: Normal ME function. RECOMMENDATIONS *Continue medical follow up with Humble Simeon MD. *Return for audiogram (60 minutes) on 07/14/2025 if medically indicated. Fransisco Colon, [facility] Fishing Rod Marker [place] Abbrev- iation Definition Degree of hearing sensitivity dB range WNL within normal limits WNL 0 - 20 SNHL sensorineural hearing loss Mild 20-40 CHL conductive hearing loss Moderate 40-55 MHL mixed hearing loss Moderately-Severe 55-70 WRS word recognition score Severe 70-90 ME middle ear Profound 90 + TM tympanic membrane documented in this encounter [facility] 07-01-2025 Note HNO ID: [id number] Author: MALIK BROWN RN Service: ? Author Type: Registered Nurse Type: Progress Notes Filed: 07/01/2025 09:17 Note Text: RN Pre Visit Questionnaire for upcoming [facility] appointment PROCEDURE : LAPAROSCOPIC CHOLECYSTECTOMY POSSIBLE OPEN SURGEON : Melissa Castellon MD PROCEDURE DATE : 07/24/25 [facility] APPT : 07/13/25 Prepared for surgery: Anticoagulant recommendations received: Yes RN Pre Visit Questionnaire completed by [facility] chart review and completed with patient. Medical optimization: Per Dr. Burton, found in Scanned doc on 06/30/25. Do you see a travel trailer components assembler, human resources training manager, microstrategy architect developer or other specialist within or outside of [facility]? SPECIALISTS: CARDIOLOGY: Hogshead Wrecker Dr. Lora, Last office visit 06/12/24 [facility] NEUROLOGY: Dr William 06/24/25 PRIMARY CARE PHYSICIAN: Dr Beau Lockhart SAP [employer] CONSULTANT OV 05/28/[address] Castellon OV 06/09/25 [facility] with Lisa William MD, PhD (06/24/2025) neuro Office Visit with Melissa Castellon MD (06/09/2025) Gen Surg Are you on [...] 01, 2025 TIME: 8:28 AM PAGER/CONTACT PHONE: [facility] 07-01-2025 History of Present illness Narrative RN Pre Visit Questionnaire for upcoming [facility] appointment PROCEDURE : LAPAROSCOPIC CHOLECYSTECTOMY POSSIBLE OPEN SURGEON : Melissa Castellon MD PROCEDURE DATE : 07/24/25 [facility] APPT : 07/13/25 Prepared for surgery: Anticoagulant recommendations received: Yes RN Pre Visit Questionnaire completed by [facility] chart review and completed with patient. Medical optimization: Per Dr. Burton, found in Scanned doc on 06/30/25. Do you see a travel trailer components assembler, human resources training manager, microstrategy architect developer or other specialist within or outside of [facility]? SPECIALISTS: CARDIOLOGY: Hogshead Wrecker Dr. Lora, Last office visit 06/12/24 CE NEUROLOGY: Dr William 06/24/25 PRIMARY CARE PHYSICIAN: Dr Beau Lockhart [facility] OV 05/28/[address] Castellon OV 06/09/25 [facility] with Lisa William MD, PhD (06/24/2025) neuro Office Visit with Melissa Castellon MD (06/09/2025) Gen Surg Are you on [...] AM PAGER/CONTACT PHONE: documented in this encounter [facility] 06-25-2025 History of Present illness Narrative Images from the original note were not included. Karuna Reynaga is a 80 y.o. female presents with chief complaint of Results (CT abdomen/pelvis in chart. ), Back Pain (Xray of back done 04/07 in chart. Pt [...] She consulted with Dr. Deborah Junior at [facility] regarding her gallstone. Dr. Junior recommended surgical [...] due to pollen Ankylosing spondylitis lumbar region ([facility]) 04/08/2025 Asthma ([facility]) Bronchiectasis ([facility]) 03/10/2024 Chronic obstructive pulmonary disease, unspecified ([facility]) 05/19/2025 Documented on 02/19/2023 by JOSE LUIS LOCKHART 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 ([facility]) 08/20/2023 DISH (diffuse idiopathic skeletal hyperostosis) 02/25/2024 Female stress incontinence Former smoker 03/10/2024 Gastroesophageal reflux disease without esophagitis 08/20/2023 Hallux valgus (acquired), left foot Hallux valgus (acquired), right foot Hypothyroidism Intestinal disaccharidase deficiencies and disaccharide malabsorption NSTEMI (non-ST elevated myocardial infarction) ([facility]) 05/19/2025 OAB (overactive bladder) 05/27/2025 Overactive bladder Polyneuropathy associated with underlying disease ([facility]) 05/27/2025 Prediabetes 06/25/2025 Presence of neurostimulator 05/19/2025 Pulmonary hypertension ([facility]) 06/12/2024 Pure hypercholesterolemia 05/27/2025 Seizure disorder ([facility]) 04/24/2024 Syncope 05/19/2025 Transient cerebral ischemia, unspecified type Traumatic brain injury with loss of consciousness ([facility]) 04/24/2024 Type 2 diabetes mellitus with diabetic neuropathy ([facility]) 06/25/2025 Type 2 diabetes mellitus with peripheral neuropathy ([facility]) 08/20/2023 SURGICAL HISTORY: Past Surgical History: Procedure [...] 3 % nebulizer solution TRUEplus Lancets 33G [facility] USE TO TEST ONCE DAILY EVERY MORNING. [...] at next OV documented in this encounter [facility] 06-24-2025 Note HNO ID: [id number] Author: LISA WILLIAM MD, PhD Service: ? Author Type: Physician Type: Progress Notes Filed: 06/24/2025 15:22 Note Text: [facility] Patient Name: Karuna Reynaga Date of : 1945 Referring Provider: SELF ESTABLISHED EPILEPSY CLINIC NOTE 06/24/2025 3:00 PM Reason for Visit: Follow Up and Epilepsy Clinical Summary: Ms. Reynaga is a 80 year old right-handed female seen in [facility]. We had a visit using: OrderBorder I received consent from the patient to perform the visit using this platform. I have communicated my name and active licensure. The patient's identity and physical location were verified at the time of this visit. 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 CT Brain WO 04/15/2024 ([facility]) IMPRESSION: ATROPHY AND CHRONIC ISCHEMIC CHANGES. NO ACUTE INTRACRANIAL FINDINGS ? EEG Routine 04/15/2024 ([facility]) Routine EEG showed bifrontal slowing but no epileptiform discharges or seizures ? MRI Brain 04/15/2024 ([facility]) MRI brain April 15, 2024 without contrast [...] 7 - 2 (more content not included)... [facility] 06-24-2025 History of Present illness Narrative [facility] Patient Name: Karuna Reynaga Date of : 1945 Referring Provider: SELF ESTABLISHED EPILEPSY CLINIC NOTE 06/24/2025 3:00 PM Reason for Visit: Follow Up and Epilepsy Clinical Summary: Ms. Reynaga is a 80 year old right-handed female seen in [facility]. We had a visit using: OrderBorder I received consent from the patient to perform the visit using this platform. I have communicated my name and active licensure. The patient's identity and physical location were verified at the time of this visit. 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 NO ACUTE INTRACRANIAL FINDINGS EEG Routine 04/15/2024 ([facility]) Routine EEG showed bifrontal slowing but no epileptiform discharges or seizures MRI Brain 04/15/2024 ([facility]) MRI brain April 15, 2024 without contrast [...] Cancer Sister cervical SOCIAL HISTORY: -Lives in [place], [place] -Patient lives alone? -Vocation: -Education: -Cigarette, [...] to explore medical CBD in accordance with [place] Law. They again had difficulty tolerating lamotrigine, [...] which included: preparing to see the patient [id number] patient care completing clinical documentation obtaining and/or reviewing separately obtained history counseling and educating the patient/family/caregiver ordering medications, tests, or procedures independently interpreting results (not separately reported) Lisa William MD, PhD cc: Primary Care Physician: Vimal Burton MD [address] [facility] [address] Referring: SELF Phone: N/A Fax: Patient: Ms. Karuna Reynaga [address] [facility] [address] documented in this encounter [facility] 06-17-2025 Note HNO ID: [id number] Author: MELISSA CASTELLON MD Service: ? Author Type: Physician Type: [...] and recently underwent a CT scan at [facility], which revealed a 11 mm gallstone [...] reflux management. Karuna has no history of MD or blood clots. PAST MEDICAL HISTORY Diagnosis [...] 2pill in P (more content not included)... [facility] 06-17-2025 History of Present illness Narrative SERVICE [...] and recently underwent a CT scan at [facility], which revealed a 11 mm gallstone [...] reflux management. Karuna has no history of MD or blood clots. PAST MEDICAL HISTORY Diagnosis [...] discussed with the Patient or Patient's Authorized Waxer Floor. As applicable, any other physician, advance practice provider, medical student, or other health professional student that will be observing or involved in the sensitive examination for educational or training purposes was discussed with the Patient or Authorized Waxer Floor. The Patient or Authorized Waxer Floor has agreed to proceed with the sensitive [...] 1. Symptomatic cholelithiasis (K80.20) CT scan from [facility] revealed an 11 mm gallstone. Symptoms [...] be performed laparoscopically under general anesthesia at [facility]. - Patient will be kept for observation [...] to assist with care and communication. SIGNATURE: Melissa Castellon MD PATIENT NAME: Karuna Reynaga DATE: June [...] Drug use: No documented in this encounter [facility] 06-02-2025 Note HNO ID: [id number] Author: QUINTIN SLOAN PA-C Service: ? Author Type: Physician Trombone Slide Assembler Type: Progress Notes Filed: 06/10/2025 14:13 Note Text: SECTION OF OTOLOGY Department of Otolaryngology - Head and Neck Surgery [facility] [place], [place] History of Present Illness Ms. KARUNA REYNAGA is a 80 year old year old female presenting to the clinic for evaluation of her right ear effusion. Patient has dementia and daughter provides history. referred by No referring provider defined for this encounter. And is a patient of DO Jamal Ayers ([facility]) [address] [place] [address] Communication will be via the electronic record [...] Alcohol use: No (more content not included)... [facility] 06-01-2025 Telephone encounter Note Images from the [...] as above. Please process accordingly. Lacy Aquino [facility] 06-01-2025 Miscellaneous Notes Images from the original [...] accordingly. Lacy Aquino documented in this encounter [facility] 05-28-2025 History of Present illness Narrative Images [...] due to pollen Ankylosing spondylitis lumbar region ([facility]) 04/08/2025 Asthma ([facility]) Bronchiectasis ([facility]) 03/10/2024 Chronic obstructive pulmonary disease, unspecified ([facility]) 05/19/2025 Documented on 02/19/2023 by JOSE LUIS LOCKHART 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 ([facility]) 08/20/2023 DISH (diffuse idiopathic skeletal hyperostosis) 02/25/2024 Female stress incontinence Former smoker 03/10/2024 Gastroesophageal reflux disease without esophagitis 08/20/2023 Hallux valgus (acquired), left foot Hallux valgus (acquired), right foot Hypothyroidism Intestinal disaccharidase deficiencies and disaccharide malabsorption NSTEMI (non-ST elevated myocardial infarction) ([facility]) 05/19/2025 OAB (overactive bladder) 05/27/2025 Overactive bladder Polyneuropathy associated with underlying disease ([facility]) 05/27/2025 Presence of neurostimulator 05/19/2025 Pulmonary hypertension ([facility]) 06/12/2024 Pure hypercholesterolemia 05/27/2025 Seizure disorder ([facility]) 04/24/2024 Syncope 05/19/2025 Transient cerebral ischemia, unspecified type Traumatic brain injury with loss of consciousness ([facility]) 04/24/2024 Type 2 diabetes mellitus with peripheral neuropathy ([facility]) 08/20/2023 SURGICAL HISTORY: Past Surgical History: Procedure [...] 3 % nebulizer solution TRUEplus Lancets 33G [facility] USE TO TEST ONCE DAILY EVERY MORNING. [...] twice a day for pain relief. - [id number]-abdocat lidocaine patches (4%) recommended for additional pain management. 7. Gallbladder stone. - Previous CAT scan in 03/2025 revealed a stone within the gallbladder lumen. - Ultrasound recommended as the better test to evaluate the gallbladder. Follow-up - Follow up in a couple of weeks. documented in this encounter [facility] 05-22-2025 History of Present illness Narrative Images [...] 3 % nebulizer solution TRUEplus Lancets 33G [facility] USE TO TEST ONCE DAILY EVERY MORNING. Allergies Allergen Reactions Codeine Other Reaction(s): unknown Midazolam Hallucinations Other Reaction(s): Confusion, Mental Status Change Propoxyphene Other Reaction(s): unknown Latex Rash Other Rash Penicillins Rash Other Reaction(s): unknown Sulfa Antibiotics Rash Other Reaction(s): unknown Patient Active Problem List Diagnosis Combined hyperlipidemia 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 ([facility]) Type 2 diabetes mellitus with peripheral neuropathy ([facility]) Gastroesophageal reflux disease without esophagitis Hypothyroidism Osteoporosis Urinary incontinence Age-related nuclear cataract of both eyes DISH (diffuse idiopathic skeletal hyperostosis) Seizure ([facility]) Traumatic brain injury with loss of consciousness ([facility]) Bronchiectasis with acute lower respiratory infection ([facility]) Recurrent UTI Ankylosing spondylitis lumbar region ([facility]) Abnormal lung sounds Acquired hallux valgus ACS (acute coronary syndrome) ([facility]) Acute confusion Acute hypoxic respiratory failure ([facility]) Acute post-operative pain Altered mental status 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 BMI 32.0-32.9,adult Brain injury ([facility]) Chronic obstructive pulmonary disease, unspecified ([facility]) Community acquired pneumonia Diabetes mellitus type II, non insulin dependent ([facility]) Dysphagia Dysphasia Elevated troponin Encounter to discuss test results Endometrial thickening on ultrasound Facet arthritis of lumbosacral region Female stress incontinence Former smoker Globus sensation Hard of hearing History of traumatic brain injury Motor restlessness NSTEMI (non-ST elevated myocardial infarction) (HCC) Obesity due to excess calories Presence of neurostimulator Pulmonary hypertension (HCC) Sinus bradycardia Weakness Bronchiectasis (HCC) Cough Hyperlipidemia GERD (gastroesophageal reflux disease) Syncope [...] appointment with the ear doctor at the [facility]. If the second opinion aligns with Dr. [...] Dee Jackson NP documented in this encounter [facility] 05-20-2025 History of Present illness Narrative Subjective [...] 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 (HCC) 08/20/2023 Type 2 diabetes mellitus with peripheral neuropathy ([facility]) 08/20/2023 Gastroesophageal reflux disease without esophagitis 08/20/2023 Hypothyroidism 08/20/2023 Osteoporosis 08/20/2023 Urinary incontinence 08/20/2023 Age-related nuclear cataract of both eyes 02/13/2024 DISH (diffuse idiopathic skeletal hyperostosis) 02/25/2024 Seizure (HCC) 04/24/2024 Traumatic brain injury with loss of consciousness ([facility]) 04/24/2024 Bronchiectasis with acute lower respiratory infection (HCC) 08/25/2024 Recurrent UTI 08/25/2024 Ankylosing spondylitis lumbar region ([facility]) 04/08/2025 Abnormal lung sounds 03/10/2024 Acquired hallux valgus 05/19/2025 ACS (acute coronary syndrome) ([facility]) 05/19/2025 Acute confusion 05/19/2025 Acute hypoxic respiratory failure (HCC) 05/19/2025 Acute post-operative pain 05/19/2025 Altered mental status 05/19/2025 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 05/19/2025 BMI 32.0-32.9,adult 03/10/2024 Brain injury ([facility]) 05/19/2025 Chronic obstructive pulmonary disease, unspecified ([facility]) 05/19/2025 Community acquired pneumonia 05/19/2025 Diabetes mellitus type II, non insulin dependent ([facility]) 03/10/2024 Dysphagia 05/19/2025 Dysphasia 03/10/2024 Elevated troponin 05/19/2025 Encounter to discuss test results 06/12/2024 Endometrial thickening on ultrasound 05/19/2025 Facet arthritis of lumbosacral region 05/19/2025 Female stress incontinence 05/19/2025 Former smoker 03/10/2024 Globus sensation 05/19/2025 Hard of hearing 05/19/2025 History of traumatic brain injury 03/10/2024 Motor restlessness 05/19/2025 NSTEMI (non-ST elevated myocardial infarction) ([facility]) 05/19/2025 Obesity due to excess calories 05/19/2025 Presence of neurostimulator 05/19/2025 Pulmonary hypertension ([facility]) 06/12/2024 Sinus bradycardia 03/10/2024 Weakness 05/19/2025 Bronchiectasis ([facility]) 03/10/2024 Cough 06/29/2020 Hyperlipidemia 03/10/2024 GERD (gastroesophageal reflux disease) 05/19/2025 Syncope 05/19/2025 Resolved Ambulatory Problems Diagnosis Date Noted Moderate asthma without complication ([facility]) 08/20/2023 Pulmonary fibrosis ([facility]) 08/20/2023 Need for immunization against influenza 08/23/2023 Chronic cough 12/05/2023 Chest congestion 12/05/2023 Chronic vasomotor rhinitis 12/05/2023 NSIP (nonspecific interstitial pneumonia) ([facility]) 02/25/2024 Shortness of breath 02/25/2024 Past Medical History: Diagnosis Date Allergic rhinitis due to pollen Asthma ([facility]) Asthma ([facility]) Depressive disorder Fall 08/2018 Hallux valgus (acquired), left foot Hallux valgus (acquired), right foot Intestinal disaccharidase deficiencies and disaccharide malabsorption Memory loss Memory loss Obesity (BMI 35.0-39.9 without comorbidity) Overactive bladder Senile osteoporosis Transient cerebral ischemia, unspecified type Type 2 diabetes mellitus without complication (HCC) Past Surgical History: Procedure Laterality Date ADENOIDECTOMY [...] 3 % nebulizer solution TRUEplus Lancets 33G [facility] USE TO TEST ONCE DAILY EVERY MORNING. [...] t-tube if persists. documented in this encounter [facility] 05-07-2025 Radiology Diagnostic study note [facility] Main [place] [address] [place] [address] CT Scan Report Signed Patient: Karuna Reynaga MR#: [id number] : 1945 Acct:[id number] Age/Sex: 80 / F ADM Date: 5 Loc: CT Room: Type: [facility] Attending Dr: Jamal Alvarez DO [...] Bird M.D. 05/07/2025 10:46 PM Dictation Location: [place] [address] Transcribed By: [facility] 05/07/252245 Dictated By: Jamal Bird DO 05/07/252241 Signed By: 05/07/252245 [facility] 04-08-2025 Progress note Formatting of t his note might be different from the original. Call xray with no frx or tumor seen, jsut advanced DJD. Can make ref to pain mgt if needed. [facility] 04-08-2025 Miscellaneous Notes Call xray with no frx or tumor seen, jsut advanced DJD. Can make ref to pain mgt if needed. documented in this encounter [facility] 03-20-2025 Telephone encounter Note The following approved medication requests have been transmitted electronically. Requested Prescriptions Signed Prescriptions Disp Refills cannabidiol (EPIDIOLEX) 100 mg/mL oral liquid 120 mL 1 Sig: Take 2 mL by mouth two times a day. Authorizing Provider: KAE LUTZ PA-C [facility] 03-20-2025 Miscellaneous Notes The following approved medication requests have been transmitted electronically. Requested Prescriptions Signed Prescriptions Disp Refills cannabidiol (EPIDIOLEX) 100 mg/mL oral liquid 120 mL 1 Sig: Take 2 mL by mouth two times a day. Authorizing Provider: KAE LUTZ PA-C [facility] 12/24/24 [facility] Patient pharmacy requesting refills as follows: Requested Prescriptions Pending Prescriptions Disp Refills cannabidiol (EPIDIOLEX) 100 mg/mL oral liquid 120 mL 1 Sig: Take 2 mL by mouth two times a day. Please review and advise. Jyoti Silva documented in this encounter [facility] 03-20-2025 Telephone encounter Note [facility] 12/24/24 [facility] Patient pharmacy requesting refills as follows: Requested Prescriptions Pending Prescriptions Disp Refills cannabidiol (EPIDIOLEX) 100 mg/mL oral liquid 120 mL 1 Sig: Take 2 mL by mouth two times a day. Please review and advise. Jyoti Silva [facility] 03-18-2025 Note HNO ID: [id number] Author: UBALDO DUBOSE MD Service: ? Author [...] Dubose MD March 18, 2025 11:18 AM [facility] 03-18-2025 History of Present illness Narrative Received [...] 2025 11:18 AM documented in this encounter [facility] 03-15-2025 Discharge summary Note Date/Time March 15, 2025 3:38p m [facility] [address] [place] [address] Discharge Summary Signed Patient: Karuna Reynaga MR#: [id number] : 1945 Acct:[id number] Age/Sex: 80 / F Adm Date: 5 Loc: Room: [address] [place] [address]: Renan Murguia MD Copies to: MD Jamal Lanier,DO~ Providers Date of Discharge: 03/15/25 Discharging Provider: Renan Murguia Primary Care Provider: Jamal Alvaerz Consults: 03/14/25 02:00 Consult to Cardiology Routine [...] Plan Discharge Plan Patient Disposition: Home Health [facility] Activity: No Activity Restriction Diet: Regular Additional [...] monohyd/m-cryst 100 mg capsule 100 mg PO .reae-fjejo-xyl simvastatin 20 mg tablet 20 mg PO QHS Other Ambulatory Orders: Initiate Home Health (Routine) Timeframe: 1 Day Location: Determined by Patient Ordered By: Renan Murguia Follow Up: Jamal Alvarez DO [Primary Care Provider] - (Call office on Sunday to schedulefollow-up with your Primary Care Provider within 3-5 days of discharge. ) Continuity of Care Document Health Concerns: A [facility] screening has identified you as FRAIL or [...] Four Ways to Beat the Frailty Risk [email or web address]/juqrtana-yve-l revention/zvat-oizyfg-ixuu- egai-vm-ukry-xdr-mvwntaa-qltl Exam Physical Exam Vital Signs: Temp Pulse [...] signed by Renan Murguia MD> 03/15/25 1538 [facility] Work Phone: 1(440) 246-598905-11-2025 Progress note Author Renan Murguia [facility] Note Date/Time March 15, 2025 1:54p m [facility] [address] [place] [address] Hospitalist Progress Note Signed Patient: Karuna Reynaga MR#: [id number] : 1945 Acct:[id number] Age/Sex: 80 / F Adm Date: 5 Loc: 3T Room: [address] [place] [address] Type: ADM IN Attending Dr: Renan Murguia [...] cardiology. Documented By: Renan Murguia MD 03/15/25 1265 Signed By: <Electronically signed by Renan Murguia MD> 03/15/25 2118 [facility] Work Phone: 1(410) 193-824805-11-2025 [place] [address] Discharge Summary Signed Patient: Karuna Reynaga MR#: [id number] : 1945 Acct:[id number] Age/Sex: 80 / F Adm Date: 5 Loc: Room: [address] [place] [address]: Renan Murguia MD Copies to: [...] Plan Discharge Plan Patient Disposition: Home Health [facility] Activity: No Activity Restriction Diet: Regular Additional [...] monohyd/m-cryst 100 mg capsule 100 mg PO .rwcn-uhstc-cfk simvastatin 20 mg tablet 20 mg PO QHS Other Ambulatory Orders: Initiate Home Health (Routine) Timeframe: 1 Day Location: Determined by Patient Ordered By: Renan Murguia Follow Up: Jamal Alvarez DO [Primary Care Provider] - (Call office on Sunday to schedulefollow-up with your Primary Care Provider within 3-5 days of discharge. ) Continuity of Care Document Health Concerns: A [facility] screening has identified you as FRAIL or [...] Strong:Four Ways to Beat the Frailty Risk [email or web address]://www.[email or web address]/health/mfnfagkg-siv-pyfznuazby/st fa-sqjxfa-cbyn- kqyy-jd-uwrz-wvx-zoqhbmf-sbsc Exam Physical Exam Vital Signs: Temp Pulse [...] MD 03/15/25 1343 Signed By: 03/15/25 1538 [facility]05-11-2025 [place] [id number] Hospitalist Progress Note Signed Patient: Karuna Reynaga MR#: [id number] : 1945 Acct:[id number] Age/Sex: 80 / F Adm Date: 5 Loc: 3T Room: [address] [place] [address] Type: ADM IN Attending Dr: Renan Murguia [...] MD 03/15/25 1335 Signed By: 03/15/25 1354 [facility]05-10-2025 Consult note Author Praveena Garcia [facility] Note Date/Time March 14, 2025 3:10p m [facility] [address] [place] [address] Cardiology Consult Note Signed Patient: Karuna Reynaga MR#: [id number] : 1945 Acct:[id number] Age/Sex: 80 / F Adm Date: 5 Loc: Room: [address] [place] [address] Type: ADM IN Attending Dr: Renan Murguia [...] ischemia. Echo at the time showed normal KOTF23-48% with moderately dilated RV and mild pulmonary hypertension. Repeat limited echo today shows normal LV function 60-65% with normal wall motion. Shedenies any chest pain, palpitations, lightheadedness, dizziness, BLE edema, orthopnea or PND. Review of Systems Review of Systems All other systems reviewed & are negative unless noted below or in HPI [facility] Medical History Idiopathic interstitial pulmonary disease [...] monohydrate/macrocrystals 100 mg capsule 100 mg PO .emyl-bywqg-cbx 03/14/25 [History Confirmed 03/14/25] simvastatin 20 mg tablet 20 mg PO QHS 03/14/25 [History Confirmed 03/14/25] Exam Physical Exam Vital Signs: Temp Pulse Resp BP Pulse Ox O2 Del Method O2 Flow Rate 98.0 F 20 L 94 H 106/71 95 Room Air 2 03/14/25 11:05 03/14/25 12:27 03/14/25 12:27 03/14/25 11:05 03/14/25 11:05 03/14/25 11:03/14/25 04:00 Narrative: GEN: Awake and alert. [...] Lymph # (Auto) 1.3 1.2 (1.00-4.8) x10E3/uL [place] # (Auto) 0.5 0.6 (0.0-0.8) x10E3/uL Eos [...] ml @ 250 mls/hr IV ONCE ONE Rx#:[id number] cefTRIAXone 1GM-*NS* 1 gm In 50 50 / 50 ml @ 100 mls/hr IV ONCE ONE Rx #:[id number] Oral 100 / 100 Other: # Voids 1 Weight 60.05 kg 59.3 kg Date of Last Bowel Movement 03/13/25 03/13/25 Patient Weight 05/10/25 23:59 Weight 59.3 kg A&P - Cardiology (1) Elevated troponin: Code(s): R79.89 - Other specified abnormal findings of blood chemistry (2) Acute hypoxic respiratory failure: Code(s): J96.01 - Acute respiratory failure with hypoxia (3) Community acquired pneumonia: Code(s): J18.9 - Pneumonia, unspecified organism (4) Weakness: Code(s): R53.1 - Weakness (5) Human metapneumovirus pneumonia: Code(s): J12.3 - Human metapneumovirus pneumonia Plan Assessment: Type II MD in the setting of community acquired pneumonia [...] <Electronically signed by Praveena Garcia MD> 03/14/25 [facility] Work Phone: 1(148) 950-816805-10-2025 [place] [address] Cardiology Consult Note Signed Patient: Karuna Reynaga MR#: [id number] : 1945 Acct:[id number] Age/Sex: 80 / F Adm Date: 5 Loc: 3T Room: [address] [place] [address] Type: ADM IN Attending Dr: Renan Murguia [...] ischemia. Echo at the time showed normal YGHA57-30% with moderately dilated RV and mild pulmonary hypertension. Repeat limited echo today shows normal LV function 60-65% with normal wall motion. Shedenies any chest pain, palpitations, lightheadedness, dizziness, BLE edema, orthopnea or PND. Review of Systems Review of Systems All other systems reviewed & are negative unless noted below or in HPI [facility] Medical History Idiopathic interstitial pulmonary disease [...] monohydrate/macrocrystals 100 mg capsule 100 mg PO .omhq-fhaij-ozo 03/14/25 [HistoryConfirmed 03/14/25] simvastatin 20 mg tablet 20 mg PO QHS 03/14/25 [History Confirmed 03/14/25] Exam Physical Exam Vital Signs: Temp Pulse Resp BP Pulse Ox O2 Del Method O2 Flow Rate 98.0 F 20 L 94 H 106/71 95 Room Air 2 03/14/25 11:05 03/14/25 12:27 03/14/25 12:27 03/14/25 11:05 03/14/25 11:03/14/25 11:03/14/25 04:00 Narrative: GEN: Awake and [...] Lymph # (Auto) 1.3 1.2 (1.00-4.8) x10E3/uL [place] # (Auto) 0.5 0.6 (0.0-0.8) x10E3/uL Eos [...] ml @ 250 mls/hr IV ONCE ONE Rx#:[id number] cefTRIAXone 1GM-*NS* 1 gm In 50 50 / 50 ml @ 100 mls/hr IV ONCE ONE Rx #:[id number] Oral 100 / 100 Other: # Voids [...] Human metapneumovirus pneumonia Plan Assessment: Type II MD in the setting of community acquired pneumonia [...] MD 03/14/25 1502 Signed By: 03/14/25 1510 [facility]05-10-2025 Progress note Author Renan Murguia [facility] Note Date/Time March 14, 2025 1:01p m [facility] [address] [place] [address] Hospitalist Progress Note Signed Patient: Karuna Reynaga MR#: [id number] : 1945 Acct:[id number] Age/Sex: 80 / F Adm Date: 5 Loc: 3T Room: [address] [place] [address] Type: ADM IN Attending Dr: Renan Murguia [...] of care and confirmed it with the resident/student/STILL TENDER. Patient seen sitting in chair at bedside [...] Tablet PO 03/14/26 06:29 50 mcg MoTuWeThFrSa@0630 IMRYAM Administration Liothyronine Sodium 5 mcg 03/14/25 09:00 [...] signed by DO JAUN Hawkins> 03/14/25 1213 [facility] Work Phone: [phone]) 233-117805-10-2025 [place] [address] Hospitalist Progress Note Signed Patient: Karuna Reynaga MR#: [id number] : 1945 Acct:[id number] Age/Sex: 80 / F Adm Date: 5 Loc: Room: [address] [place] [address] Type: ADM IN Attending Dr: Renan Murguia [...] care and confirmed it with the re sident/student/STILL TENDER. Patient seen sitting in chair at bedside [...] 1101 Signed By: 03/14/25 1301 03/14/25 1213 [facility]05-10-2025 Radiology Diagnostic study note [facility] [place] [address] CT Scan Report Signed Patient: Karuna Reynaga MR#: [id number] : 1945 Acct:[id number] Age/Sex: 80 / F ADM Date: 5 Loc: 3T Room: [address] [place] [address] Type: ADM IN Attending Dr: Renan Murguia [...] Muñoz M.D. 03/14/2025 8:40 AM Dictation Location: [facility] Transcribed By: BERTA 03/14/25839 Dictated By: Jose Muñoz II, MD 03/14/25829 Signed By: 03/14/2540 [facility] Work Phone: 1(697) 973-617605-10-2025 History and physical note Author Magda Navarro [facility] Note Date/Time March 14, 2025 4:16a m [facility] [address] [place] [address] Hospitalist H&P Signed Patient: Karuna Reynaga MR#: [id number] : 1945 Acct:[id number] Age/Sex: 80 / F Adm Date: 5 Loc: Room: [address] [place] [address] Type: ADM IN Attending Dr: Matias Valdez DO Copies to: Jamal Alvarez,ROSELYN Monterroso, ~ HPI DATE OF EXAMINATION: 03/14/25 CHIEF [...] be admitted as inpatient to the [facility] telemetry floor. Review of Systems Review of Systems Unobtainable due to mental condition [facility] Medical History Idiopathic interstitial pulmonary disease [...] monohydrate/macrocrystals 100 mg capsule 100 mg PO .ctic-ffjco-hnt 03/14/25 [History Confirmed 03/14/25] simvastatin 20 mg [...] % (Auto) 23.1 % (.) 03/13/25 22:38 [place] % (Auto) 9.3 % (.) 03/13/25 22:38 Eos % (Auto) 1.1 % (.) 03/13/25 22:38 Baso % (Auto) 0.7 % (.) 03/13/25 22:38 Nucleat RBC Rel Count 0.1 /100 WBC (0-0.5) 03/13/25 22:38 Neut # (Auto) 3.7 x10E3/uL (1.8-7.7) 03/13/25 22:38 Lymph # (Auto) 1.3 x10E3/uL (1.00-4.8) 03/13/25 22:38 [place] # (Auto) 0.5 x10E3/uL (0.0-0.8) 03/13/25 22:38 [...] pH 5.5 (5.0-9.0) 03/13/25 23:11 Ur Specific [place] 1.032 (1.001-1.030) H 03/13/25 23:11 Urine Protein [...] signed by Matias Valdez DO> 03/14/25 0416 [facility] Work Phone: [phone]) 191-970105-10-2025 [place] [address] Hospitalist H&P Signed Patient: Karuna Reynaga MR#: [id number] : 1945 Acct:[id number] Age/Sex: 80 / F Adm Date: 5 Loc: Room: [address] [place] [address] Type: ADM IN Attending Dr: Matias Valdez DO Copies to: DO Magda Ayers APRN Shawn J Warner, DO~ HPI DATE OF EXAMINATION: 03/14/25 CHIEF [...] admitted as inpatie nt to the [facility] telemetry floor. Review of Systems Review of Systems Unobtainable due to mental condition [facility] Medical History Idiopathic interstitial pulmonary disease [...] monohydrate/macrocrystals 100 mg capsule 100 mg PO .qquj-saklu-aks 03/14/25 [HistoryConfirmed 03/14/25] simvastatin 20 mg tablet [...] % (Auto) 23.1 % (.) 03/13/25 22:38 [place] % (Auto) 9.3 % (.) 03/13/25 22:38 Eos % (Auto) 1.1 % (.) 03/13/25 22:38 Baso % (Auto) 0.7 % (.) 03/13/25 22:38 Nucleat RBC Rel Count 0.1 /100 WBC (0-0.5) 03/13/25 22:38 Neut # (Auto) 3.7 x10E3/uL (1.8-7.7) 03/13/25 22: Lymph # (Auto) 1.3 x10E3/uL (1.00-4.8) 03/13/25 22:38 [place] # (Auto) 0.5 x10E3/uL (0.0-0.8) 03/13/25 22:38 [...] pH 5.5 (5.0-9.0) 03/13/25 23:11 Ur Specific [place] 1.032 (1.001-1.030) H 03/13/25 23:11 Urine Protein [...] 0207 Signed By: 03/14/25 0239 03/14/25 0416 [facility]05-10-2025 Evaluation note* Diagnosis Onset Date Resolution Status Admit Date Acute confusion acute March 14, 2025 1:57am Acute hypoxic respiratory failure ac samish March 14, 2025 1:57am Community acquired pneumonia acute March 14, 2025 1:57am Elevated troponin acute March 1:57am Human metapneumovirus pneumonia acut e March 14, 2025 1:57am Weakness acute March 14, 2025 1:57am [facility] Work Phone: 1(225) 892-907105-10-2025 Evaluation note* Diagnosis Onset Date Resolution Status Admit Date Acute confusion resolved March 14, 2025 1:57am Acute hypoxic respiratory failure resolved March 14, 2025 1 :57am Community acquired pneumonia resolve d March 14, 2025 1:57am Elevated troponin resolved March 1:57am Human metapneumovirus pneumonia reso lved March 14, 2025 1:57am Weakness resolved March 14, 2025 1:57am [facility] Work Phone: 1(414) 566-503605-09-2025 [facility] [place] [address] [place] [address] CT Scan Report Signed Patient: Karuna Reynaga MR#: [id number] : 1945 Acct:[id number] Age/Sex: 80 / F ADM Date: 5 [...] Muñoz M.D. 03/13/2025 10:19 PM Dictation Location: [facility]17 Transcribed By: BERTA 03/13/252218 Dictated By: Jose Muñoz II, MD 03/13/252212 Signed By: 03/13/252218 [facility] Work Phone: [phone]) [phone] Telephone encounter Note* Telephone Encounter - Jennifer Chandler RN - 01/13/2025 11:08 AM EDT Additional information submitted [facility] Jennifer Chandler RN [facility]03-11-2025 Miscellaneous Notes* Telephone Encounter - Jennifer Chandler RN - 01/13/2025 11:08 AM EDT Additional information submitted in CM. Jennifer Chandler RN * Telephone Encounter - Jennifer Chandler RN - 01/13/2025 10:41 AM EDT Urgent PA initiated in [facility] [id number]. Jennifer Chandler RN * Telephone Encounter - Jyoti Silva - 01/12/2025 2:26 PM EDT [facility] phoned to follow with prior auth for cannabidiol (EPIDIOLEX) 100 mg/mL oral liquid please call and advise [facility] ph# [phone] [facility] [place] Telephone encounter Note * Telephone Encounter - Jennifer Chandler RN - 01/13/2025 10:41 AM EDT Urgent PA initiated [facility] [id number]. Jennifer Chandler, RN [facility]03-10-2025 Telephone encounter Note* Telephone Encounter - RicardoJyoti - 01/12/2025 2:26 PM EDT [facility] phoned to follow with prior auth for cannabidiol (EPIDIOLEX) 100 mg/mL oral liquid please call and advise [facility] # [phone] [facility]02-19-2025 NoteHNO ID: [id number] Author: LISA WILLIAM MD, PhD Service: ? Author Type: Physician Type: Progress Notes Filed: 12/24/2024 16:30 Note Text: [facility] Patient Name: Karuna Reynaga Date of : 1945 Referring Provider: SELF ESTABLISHED EPILEPSY CLINIC NOTE 12/24/2024 3:00 PM Reason for Visit: Follow Up and Epilepsy Clinical Summary: Ms. Reynaga is a 79 year old right-handed female seen in [facility]. We had a visit using: OrderBorder I received consent from the patient to perform the visit using this platform. I have communicated my name and active licensure. The patient's identity and physical location were verified at the time of this visit. 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 CT Brain WO 04/15/2024 ([facility]) IMPRESSION: ATROPHY AND CHRONIC ISCHEMIC CHANGES. NO ACUTE INTRACRANIAL FINDINGS ? EEG Routine 04/15/2024 ([facility]) Routine EEG showed bifrontal slowing but no epileptiform discharges or seizures ? MRI Brain 04/15/2024 ([facility]) MRI brain April 15, 2024 without contrast [...] MULTIVITAMIN TAB Take one(1) (more content not included)...[facility]02-19-2025 History of Present illness Narrative* Lisa William MD, PhD - 12/24/2024 3:02 PM EST [facility] Patient Name: Karuna Reynaga Date of : 1945 Referring Provider: SELF ESTABLISHED EPILEPSY CLINIC NOTE 12/24/2024 3:00 PM Reason for Visit: Follow Up and Epilepsy Clinical Summary: Ms. Reynaga is a 79 year old right-handed female seen in [facility]. We had a visit using: OrderBorder I received consent from the patient to perform the visit using this platform. I have communicated my name and active licensure. The patient's identity and physical location wereverified at the time of this visit. 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 NO ACUTE INTRACRANIAL FINDINGS EEG Routine 04/15/2024 ([facility]) Routine EEG showed bifrontal slowing but no epileptiform discharges or seizures MRI Brain 04/15/2024 ([facility]) MRI brain April 15, 2024 without contrast [...] Cancer Sister cervical SOCIAL HISTORY: -Lives in [place], [place] Social History Tobacco Use Smoking status: [...] to explore medical CBD in accordance with [place] Law. They again had difficulty tolerating lamotrigine, [...] which included: preparing to see the patient fljj-av-rsei patient care completing clinical documentation obtaining and/or reviewing separately obtained history counseling and educating the patient/family/caregiver performing a medically appropriate examination ordering medications, tests, or procedures independently interpreting results (not separately reported) Lisa William MD, PhD cc: Primary Care Physician: Jamal Alvarez, [address] [facility] [address] [facility] [address] Referring: SELF Phone: N/A Fax: Patient: Ms. Karuna Reynaga [address] [facility] [address] [facility] [address] documented in [facility] [place] Telephone encounter Note * Telephone Encounter - [...] John Madison December 12, 2024 7:41 AM [facility]02-07-2025 Miscellaneous Notes* Telephone Encounter - John Madison [...] 12, 2024 7:41 AM documented [facility] [place] Telephone encounter Note * Telephone Encounter - John Madison - 09/08/2024 1:14 PM EST Karuna Reynaga's daughter Nadira called regarding her VV that was scheduled for today. They ran behind at one of her other appointments, and missed the visit. Her daughter is requesting her to be rescheduled, but don't want to wait a long time for a new appointment. [facility]11-04-2024 Miscellaneous Notes* Telephone Encounter - John Madison - 09/08/2024 1:14 PM EST Karuna Reynaga's daughter Nadira called regarding her VV that was scheduled for today. They ran behind at one of her other appointments, and missed the visit. Her daughter is requesting her to be rescheduled, but don't want to wait a long time for a new appointment. documented [facility] [place] History of Present illness Narrative* Jose Luis Lockhart NP - 08/25/2024 3:15 PM EDT Images from [...] 3 % nebulizer solution TRUEplus Lancets 33G [facility] USE TO TEST ONCE DAILY EVERY MORNING. [...] Calixto, who is a neurologist at the [facility] for her partial seizures. She was on [...] will place her on this every third orfth day. She should take a probiotic. I [...] reviewed and followed. Jose Luis Lockhart, MSN, CONSULTING PROJECT DIRECTOR-[employer] CONSULTANT documented in this encounterWashington University Medical [id number] Telephone encounter Note* Telephone Encounter - Sowmya Gresham RN - 08/25/2024 11:39 AM EDT 08/13/[address] William started on the LTG titration Sowmya Gresham RN [facility]10-21-2024 Miscellaneous Notes* Telephone Encounter - Sowmya Gresham RN - 08/25/2024 11:39 AM EDT 08/13/[address] William started on the LTG titration Sowmya Gresham RN documented in this encounter[facility] [place] Instructions* Patient Instructions* Lisa William MD, PhD [...] need an alternate medicine. documented in this encounterSelect [facility] [place]10-09-2024 NoteHNO ID: [id number] Author: LISA WILLIAM MD, PhD Service: ? Author Type: Physician Type: Progress Notes Filed: 12/24/2024 15:02 Note Text: [facility] [place] [facility] [place] [facility] Patient Name: Karuna GAMINO Date of : 1945 INITIAL EPILEPSY CLINIC NOTE 08/13/2024 2:00 PM CHIEF COMPLAINT: New Patient and Epilepsy Self referred. HISTORY OF PRESENT ILLNESS Ms. Reynaga is a 79 year old female seen in [facility] [place] [facility] for initial consultation. We had a visit using: OrderBorder I received consent from the patient to perform the visit using this platform. I have communicated my name and active licensure. The patient's identity and physical location were verified at the time of this visit. 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 CT Brain WO 04/15/2024 ([facility]) IMPRESSION: ATROPHY AND CHRONIC ISCHEMIC CHANGES. NO ACUTE INTRACRANIAL FINDINGS ? EEG Routine 04/15/2024 ([facility]) Routine EEG showed bifrontal slowing but no epileptiform discharges or seizures ? MRI Brain 04/15/2024 ([facility]) MRI brain April 15, 2024 without contrast [...] surgical history. FAMILY HIS (more content not included)...[facility]10-09-2024 History of Present illness Narrative* Lisa William MD, PhD - 08/13/2024 2:07 PM EDT [facility] [place] [facility] [place] [facility] Patient Name: Karuna GAMINO Date of : 1945 INITIAL EPILEPSY CLINIC NOTE 08/13/2024 2:00 PM CHIEF COMPLAINT: New Patient and Epilepsy Self referred. HISTORY OF PRESENT ILLNESS Ms. Reynaga is a 79 year old female [facility] in [facility] [place] [facility] for initial consultation. We had a visit using: OrderBorder I received consent from the patient to perform the visit using this platform. I have communicated my name and active licensure. The patient's identity and physical location wereverified at the time of this visit. 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 NO ACUTE INTRACRANIAL FINDINGS EEG Routine 04/15/2024 ([facility]) Routine EEG showed bifrontal slowing but no epileptiform discharges or seizures MRI Brain 04/15/2024 ([facility]) MRI brain April 15, 2024 without contrast [...] Cancer Sister cervical SOCIAL HISTORY: -Lives in [place], [place] -Patient lives alone? Social History Tobacco [...] Primary Care Physician: Jamal Alvarez, [address] [facility] [address] [facility] [address] Referring: Patient: Ms. Karuna Reynaga [address] [facility] [address] [facility] [address] documented in this encounterSelect Medical [facility] [place]09-26-2024 Telephone encounter Note * Telephone Encounter - Sowmya Gresham RN - 07/31/2024 3:06 PM EDT EEG order faxed to [facility] via QuanTemplate request to fax report to [phone] send EEG tracings to [facility] Sowmya Gresham RN [facility] [place]09-26-2024 Miscellaneous Notes* Telephone Encounter - Sowmya Gresham RN - 07/31/2024 3:06 PM EDT EEG order faxed to [facility] via Quan[employer] request to fax report to [phone] send EEG tracings to CC Sowmya Gresham [...] AM EDT Spoke with Karuna States that [facility] needs the order to specify what [...] she's going to have this done at [facility] and they need the order to specifically state how long you want them to do the test for, so please include a time frame on the order. Then fax over to [facility] at: [phone] * Telephone Encounter - Yanick Douglass - [...] daughter: Nadira Call patient at: on cell [phone] (home) [phone] (cell) Was an appointment scheduled: No Closing statement: Results or non-symptom based questions: Thank you for calling [facility] [place], your call will be returned within the next business day. Yanick Douglass documented in this encounterSelect Medical Specialty [facility] [place]09-26-2024 Telephone encounter Note * Telephone Encounter - Melvi García PA-C - 07/31/2024 2:03 PM EDT So the long EEG is 2.5 hours long roughly and it is performed the same way as an hour long EEG so Iwrote the time length requested in the comments. What else are they looking for? Melvi García PA-C [facility] [place]09-26-2024 Telephone encounter Note* Telephone Encounter - Sowmya Gresham RN - 07/31/2024 10:33 AM EDT Spoke with Karuna States that [facility] needs the order to specify what is wanted they only do the hour and 3 days, if different it needs to be requested in the order routed for review Sowmya Gresham RN [facility] [place]09-25-2024 Telephone encounter Note* Telephone Encounter - Melvi García PA-C - 07/30/2024 2:59 PM EDT EEG long can be done first. Order placed. Melvi García PA-C [facility] [place]09-25-2024 Telephone encounter Note* Telephone Encounter - Sowmya Gresham RN - 07/30/2024 2:52 PM EDT 04/22/[address] Juarez ======= routed to REJI 1 to see if long EEG order can be placed or will visit with Dr. William need to be completed first. Sowmya Gresham RN [facility] [place]09-25-2024 Telephone encounter Note* Telephone Encounter - Yaa Russell - 07/30/2024 2:03 PM EDT Patient called back today, and indicated that she's going to have this done at [facility] and they need the order to specifically state how long you want them to do the test for, so please include a time frame on the order. Then fax over to [facility] at: [phone] [facility] [place]09-25-2024 Telephone encounter Note* Telephone Encounter - Yanick [...] daughter: Nadira Call patient at: on cell [phone] (home) [phone] (cell) Was an appointment scheduled: No Closing statement: Results or non-symptom based questions: Thank you for calling [facility] [place], your call will be returned within the next business day. Yanick Douglass [facility] [place]08-01-2024 Telephone encounter Note* Telephone Encounter - MadisonJohn - 06/05/2024 4:51 PM EDT Fax received on 06/05/2024 from [employer], regarding CMN. Fax placed on provider desk for review/signature. Unsigned copy scanned into patient chart. [facility] [place]08-01-2024 Miscellaneous Notes* Telephone Encounter - MadisonJohn - 06/05/2024 4:51 PM EDT Fax received on 06/05/2024 from [employer], regarding CMN. Fax placed on provider desk for review/signature. Unsigned copy scanned into patient chart. documented in this encounterSelect Medical [facility]ty [facility] [place]07-01-2024 History of Present illness Narrative* Ubaldo Dubose MD - 05/05/2024 3:30 PM EDT Images from the original note were not included. VIRTUAL VISIT PROGRESS NOTE This is a virtual visit using Buffalo[employer] Video Visit. It required patient- provider interaction for the medical decision making as documented below. I have communicated my name and active licensure. The patient's identity and physical location wereverified at the time of this visit. Either the patient or their legal labor service representative has been informed of the risks and benefits of -- and alternatives to -- treatment through a remote evaluation andconsents to proceed with the evaluation remotely. [facility] [place] Karuna Reynaga is a 79 year old female here for a follow up with the [facility] [place] InterstitialLung Disease Team for bronchiectasis secondary to [...] myself) Laboratory Data Laboratory data reviewed in [facility] Everywhere. Pulmonary Function Data [...] today, May 05, 2024) documented in this encounterSelect Medical [facility]ty [facility] [place]06-26-2024 History of Present illness Narrative* Yamini Lan RRT - 04/30/2024 1:17 PM EDT PULM FUNCTION: Provider: Ubaldo Dubose MD Spirometry: 1 DLCO: 1 documented in this encounterSelect Medical [facility] [place]06-18-2024 History of Present illness Narrative* Brian Lorenzo APRN.BEATRIZ - 04/22/2024 8:15 AM EDT [facility] Review of Records Patient: Karuna Reynaga Address: [address] [place] [id number] Impression: Review of records for Karuna Reynaga, [...] ASMs PRIOR EVALUATIONS: CT Brain WO 04/15/2024 ([facility]) IMPRESSION: ATROPHY AND CHRONIC ISCHEMIC CHANGES. NO ACUTE INTRACRANIAL FINDINGS EEG Routine 04/15/2024 ([facility]) Routine EEG showed bifrontal slowing but no epileptiform discharges or seizures MRI Brain 04/15/2024 ([facility]) MRI brain April 15, 2024 without contrast shows bilateral frontal lobe encephalomalacia, some othergeneralized atrophy, no acute intracranial findings REJI Recommendations: - EEG long - Visit with epileptologist - Additional testing to be considered by epilepsy clinicians Signed: Brian Lorenzo APRN.SAP [employer] CONSULTANT April 22, [address] Juraez for review and recommendations. MD Recommendations (as discussed with Dr. Juarez): - agree with reccomendations documented in this encounterSelect [facility] [place]06-17-2024 Telephone encounter Note * Telephone Encounter - Taqueria Frank - 04/21/2024 4:18 PM EDT OSH imaging/records received: April 21, 2024 -OFFICE NOTES -EEG -MRI BRAIN -CT BRAIN -CARE EVERYWHERE ([place], [place]) Taqueria Frank April 21, 2024 4:19 PM [facility] [place]06-17-2024 Miscellaneous Notes* Telephone Encounter - Taqueria Frank - 04/21/2024 4:18 PM EDT OSH imaging/records received: April 21, 2024 -OFFICE NOTES -EEG -MRI BRAIN -CT BRAIN -CARE EVERYWHERE ([place], [place]) Taqueria Frank April 21, 2024 4:19 PM * Telephone Encounter - Taqueria Frank - 04/21/2024 4:04 PM EDT [facility] [place] [facility] Initial Intake Interview April 21, 2024 4:05 PM Caller: Nadira Relationship to pt: Daughter Patient name: Karuna Reynaga Age: [age] year old Address: [address] [place] [address] (home) Insurance: Payor: [employer] [facility] MEDICARE / Plan: [employer] MEDICARE ADVANTAGE PPO / Product Type: PPO / Referred by: Self (word of mouth) Referring to: Any Reason for Evaluation: further evaluation and treatment Previously evaluated at: [facility] [place], [place] Tel: N/A Fax: N/A Age & [...] or No Date Facility EEG Yes 04/2024 [place], [place]) Video EEG No MRI brain Yes 04/2024 [place], [place]) CT brain Yes 04/2024 [facility] [place]) fMRI brain No PET No Ictal [...] No Signed: Taqueria Frank documented in this encounterSelect [facility] [place]06-17-2024 Telephone encounter Note * Telephone Encounter - Taqueria Frank - 04/21/2024 4:04 PM EDT [facility] [place] [facility] Initial Intake Interview April 21, 2024 4:05 PM Caller: Nadira Relationship to pt: Daughter Patient name: Karuna Reynaga Age: [age] year old Address: [address] [place], [place] [id number] (home) Insurance: Payor: [employer] [facility] [facility] MEDICARE / Plan: [employer] MEDICARE ADVANTAGE PPO / Product Type: PPO / Referred by: Self (word of mouth) Referring to: Any Reason for Evaluation: further evaluation and treatment Previously evaluated at: [place], [place] Tel: N/A Fax: N/A Age & [...] or No Date Facility EEG Yes 04/2024 [place], [place]) Video EEG No MRI brain Yes 04/2024 [place], [place]) CT brain Yes 04/2024 [place], [place]) fMRI brain No PET No Ictal [...] imaging been requested? No Signed: Taqueria Frank [facility] [place]06[facility]12[facility] Progress note Author Andry Nugent [facility] April 16, 2024 5:40pm Note Date/Time April 16, 2024 1:04 pm [facility] [address] [place] [address] Neurology Progress Note Signed Patient: Karuna Reynaga MR#: [id number] : 1945 Acct:[id number] Age/Sex: 79 / F Adm Date: 4 Loc: 4P Room: 6Y3043-3 Type: ADM IN Attending Dr: Renan Murguia [...] Recommendations: ST Recommendations ST Recommended Services at [facility] Discharge Assessment/Plan (1) Syncope: Qualifiers: Syncope type: [...] signed by Andry Nugent DO> 04/16/24 1740 [facility] Work Phone: 1(229) 877-737506-11-2024 Progress note Author W Deshawn [facility] April 15, 2024 4:44pm Note Date/Time April 15, 2024 4:44 pm [facility] [address] [place] [address] Cardiology Progress Note Signed Patient: Karuna Reynaga MR#: [id number] : 1945 Acct:[id number] Age/Sex: 79 / F Adm Date: 4 Loc: Room: [address] [place] [address] Type: ADM IN Attending Dr: Renan Murguia MD Copies to: ~ Date of Service: 04/15/2024 Subjective Principal diagnosis: Near syncopal episode; troponin elevation Interval history: Ms. Reynaga is a 79 year old female that was seen in cardiology consultation at the request of the hospitalist and in conjunction with second-year medical dermatologist Dr. Hernandez for elevated troponin levels. Patient is seen and evaluated with the medical dermatologist, I agree with her evaluation and note, [...] on Lasix one month ago by her travel trailer components assembler, Dr. Lora, for possible heart failure. Her [...] % (Auto) 46.5 Lymph % (Auto) 36.1 [place] % (Auto) 9.8 Eos % (Auto) 6.8 Baso % (Auto) 0.8 Nucleat RBC Rel Count 0.2 Neut # (Auto) 2.6 Lymph # (Auto) 2.0 [place] # (Auto) 0.6 Eos # (Auto) 0.4 [...] <Electronically signed by Vic Hess DO> 04/15/241643 [facility] Work Phone: 1(136) 236-325606-11-2024 Progress note Author Andry Nugent [facility] April 15, 2024 4:01pm Note Date/Time April 15, 2024 4:01 pm [facility] [address] [place] [address] Neurology Progress Note Signed Patient: Karuna Reynaga MR#: [id number] : 1945 Acct:[id number] Age/Sex: 79 / F Adm Date: 4 Loc: 4P Room: [address] [place] [address] Type: ADM IN Attending Dr: Renan Murguia [...] Recommendations: ST Recommendations ST Recommended Services at [facility] Discharge Assessment/Plan (1) Syncope: Qualifiers: Syncope type: unspecified Qualified Code(s): R55 - Syncope and collapse Plan CONSULT REASON: Syncope SUBJECTIVE: Doing about the same as yesterday. No recurrence of any syncopal event. Her daughter says that she is typically pretty tangential at baseline and talks about some fairly snw-opv-jjcm things, and sometimes does not even remember [...] follow Documented By: Andry Nugent DO 04/15/24 1554 Signed By: <Electronically signed by Andry Nugent DO> 04/15/24 1600 [facility] Work Phone: 1(504) 786-807106-11-2024 Progress note Author Renan Murguia [facility] April 15, 2024 1:13pm Note Date/Time April 15, 2024 1:14 pm [facility] [address] [place] [address] Hospitalist Progress Note Signed Patient: Karuna Reynaga MR#: [id number] : 1945 Acct:[id number] Age/Sex: 79 / F Adm Date: 4 Loc: Room: [address] [place] [address] Type: ADM IN Attending Dr: Renan Murguia [...] above Documented By: Renan Murguia MD 04/15/24 131 Signed By: <Electronically signed by Renan Murguia MD> 04/15/24 1313 [facility] Work Phone: 1(546) 254-133406-10-2024 Consult note Author Andry Nugent [facility] April 14, 2024 5:14pm Note Date/Time April 14, 2024 1:15 pm [facility] [address] [place] [address] Neurology Consult Note Signed Patient: Karuna Reynaga MR#: [id number] : 1945 Acct:[id number] Age/Sex: 79 / F Adm Date: 4 Loc: Room: [address] [place] [address] Type: ADM IN Attending Dr: Renan Murguia MD Copies to: DO Renan Jurado MD Jeffrey A Garman, DO~ HPI Consult Date: 04/14/24 Put In Beat Adjuster: Andry Nugent DO [facility] Medical History (Updated 04/14/24 @ 17:14 [...] Jamal Bird M.D.04/13/2024 4:26 PM Dictation Location: [place] [address] 04/13/24 15:53 IMPRESSION: No acute findings. 4:05 PM 04/13/24 Impression dictated by: Jamal Bird M.D.04/13/2024 4:11 PM Dictation Location: [place] [address] Head CTA 04/13/24 15:53 IMPRESSION: No occlusion, critical stenosis or dissection of the extracranial orintracranial circulation. Impression dictated by: Jamal Bird M.D.04/13/2024 4:31 PM Dictation Location: [place] [address] Therapy Recommendations Therapy Recommendations: ST Recommendations ST Recommended Services at [facility] Discharge Assessment/Plan (1) Syncope: Qualifiers: Syncope type: [...] follow Documented By: Andry Nugent DO 04/14/24 8816 Signed By: <Electronically signed by Andry Nugent DO> 04/14/24 8173 [facility] Work Phone: 1(154) 563-446206-10-2024 Consult note Author Vic Hess [facility] April 14, 2024 4:31pm Note Date/Time April 14, 2024 3:25 pm [facility] [address] [place] [address] Cardiology Consult Note Signed Patient: Karuna Reynaga MR#: [id number] : 1945 Acct:[id number] Age/Sex: 79 / F Adm Date: 4 Loc: Room: [address] [place] [address] Type: ADM IN Attending Dr: Renan Murguia MD Copies to: MD Jamal Lanier DO Samantha Mason, DO, JAUN Hess DO~ Cardiology HPI History of Present Illness Consult Date: 04/14/24 Reason for Consult: NSTEMI HPI: Ms. Reynaga is a 79 year old female that was seen in cardiology consultation at the request of the hospitalist and in conjunction with second-year medical dermatologist Dr. Hernandez for elevated troponin levels. Patient is seen and evaluated with the medical dermatologist, I agree with her evaluation and note, [...] on Lasix one month ago by her travel trailer components assembler, Dr. Lora, for possible heart failure. Her [...] negative unless noted below or in HPI [facility] Medical History (Updated 04/14/24 @ 15:22 [...] Lymph # (Auto) 1.8 2.3 (1.00-4.8) x10E3/uL [place] # (Auto) 0.5 0.5 (0.0-0.8) x10E3/uL Eos [...] ml @ 999 mls/hr IV .Q1H1M ONE Rx#:[id number] Oral 240 / 240 Output: Urine 150 [...] signed by DO JAUN Hernandez> 04/14/24 1525 [facility] Work Phone: 1(105) 374-739806-10-2024 Progress note Author Renan Murguia [facility] April 14, 2024 1:29pm Note Date/Time April 14, 2024 1:29 pm [facility] [address] [place] [address] Hospitalist Progress Note Signed Patient: Karuna Reynaga MR#: [id number] : 1945 Acct:[id number] Age/Sex: 79 / F Adm Date: 4 Loc: 4 Room: 3E5715-5 Type: ADM IN Attending Dr: Renan Murguia [...] signed by Renan Murguia MD> 04/14/24 1329 [facility] Work Phone: 1(311) 263-645506-10-2024 History and physical note Author Albert Palacio [facility] April 13, 2024 11:03pm Note Date/Time April 13, 2024 7:12p m [facility] [address] [place] [address] Hospitalist H&P Signed Patient: Karuna Reynaga MR#: [id number] : 1945 Acct:[id number] Age/Sex: 79 / F Adm Date: 4 Loc: Room: [address] [place] [address] Type: ADM IN Attending Dr: Albert Palacio [...] episode and possible NSTEMI. [facility] floor the patient is alert and pleasant [...] although there are fewprior EKGs to compare. [facility] Medical History (Updated 04/13/24 @ 17:47 [...] % (Auto) 29.5 % (.) 04/13/24 15:55 [place] % (Auto) 7.4 % (.) 04/13/24 15:55 Eos % (Auto) 4.3 % (.) 04/13/24 15:55 Baso % (Auto) 0.8 % (.) 04/13/24 15:55 Nucleat RBC Rel Count 0.1 /100 WBC (0-0.5) 04/13/24 15:55 Neut # (Auto) 3.6 x10E3/uL (1.8-7.7) 04/13/24 15:55 Lymph # (Auto) 1.8 x10E3/uL (1.00-4.8) 04/13/24 15:55 [place] # (Auto) 0.5 x10E3/uL (0.0-0.8) 04/13/24 15:55 [...] <Electronically signed by Albert Palacio DO> 04/13/24 1913 [facility] Work Phone: 1(809) 182-442305-06-2024 History of Present illness Narrative* Judit Lora [...] injury. Daughter is the medical power of real estate associate attorney. Patient toma full code at this [...] than 60, hemoglobin 12.5 hematocrit 40 platelets [id number] Assessment/Plan Diagnoses and all orders for this [...] with unknown loss of consciousness status, sequela ([facility]) BMI 32.0-32.9,adult Former smoker History [...] February 2024-diffuse groundglass interstitial prominence basilar atelectasis/scarring 11-llnl-qdoo history of smoking quit 1979 PFTs not [...] exam, discussion and plan. documented in this [facility] Work Phone: 1(936) 727-721105-06-2024 Instructions* Patient Instructions* Raulito Draper MA - [...] time of your visit. documented in this [facility] Work Phone: 1(407) 821-133604-29-2024 History of Present illness Narrative* Ubaldo Dubose MD - 03/03/2024 12:30 PM EDT VIRTUAL VISIT PROGRESS NOTE This is a virtual visit using [employer] Zoom Video Visit. It required patient- provider interaction for the medical decision making as documented below. I have communicated my name and active licensure. The patient's identity and physical location wereverified at the time of this visit. Either the patient or their legal labor service representative has been informed of the [...] type Type 2 diabetes mellitus without complication ([facility]) No past surgical history on file. Current [...] in 3 months Ubaldo Dubose MD Pager: [phone] March 02, 2024 12:06 PM documented in this encounterSelect [facility] [place]-2024 Telephone encounter Note * Telephone Encounter - Eileen Lucas RN - 02/26/2024 3:57 PM EDT Received outside imaging reports via electronic fax. Uploaded to scanned documents for provider to review. [facility] [place]-23-2024 Miscellaneous Notes* Telephone Encounter - Eileen Lucas RN - 02/26/2024 3:57 PM EDT Received outside imaging reports via electronic fax. Uploaded to scanned documents for provider to review. documented in this encounterSelect [facility] [place]04-23-2024 Telephone encounter Note * Telephone Encounter - Brandon Farris PSS - 02/26/2024 1:53 PM EDT Patient is scheduled on 03/03/2024 at 12:30pm. [facility]04-23-2024 Miscellaneous Notes* Telephone Encounter - Brandon Farris PSS - 02/26/2024 1:53 PM EDT Patient is scheduled on 03/03/2024 at 12:30pm. * Telephone Encounter - Brandon Farris PSS - 02/26/2024 12:13 PM EDT Called patient to offer virtual appointment with Dr. Dubose on 03/03/2024 at 12:30pm. No answer, unable to leave voicemail. [facility] [place] Telephone encounter Note * Telephone Encounter - Brandon Farris PSS - 02/26/2024 12:13 PM EDT Called patient to offer virtual appointment with Dr. Dubose on 03/03/2024 at 12:30pm. No answer, unable to leave voicemail. [place] [id number] History of Present illness Narrative* Yuridia Bourgeois RRT - 02/22/2024 1:47 PM EDT [facility] [place] unable to provide nebulizer. Order and office notes faxed to [facility] [phone], ph [phone]. Yuridia Bk DRIVER SERVICE TECHNICIAN documented in this [facility] [place] Evaluation note* Author Flex [facility] Authored February 21, 2024 [...] dysphagia then determine the need for PPI [facility] Work Phone: 1(584) 539-928204-12-2024 History of Present illness Narrative* Darrel Carranza RRT - 02/15/2024 5:00 PM EDT Faxed nebulizer rx to [facility] in [place] ph [phone], fax [phone] Darrel Carranza RRT documented in this [facility] [place] Miscellaneous Notes* Telephone Encounter - John Madison - 01/22/2024 2:46 PM EDT Images from the original note were not included. Imported external notification of equipment delivery from [employer], dated 01/16/2024. Please allow time delay for documents to appear in Epic (Scanned Documents Tab). Images can take up to 24 hours to appear in Epic. documented in this encounterCleveland [id number] Instructions* Patient Instructions* Ubaldo Dubose MD - [...] (I will send a prescription to a [facility]) How to Use the Acapella Assure proper [...] should not be placed in the automatic skinner pelts, boiled or bleached. 4. Rinse in clean water. 5. Shake off excess water. 6. Drain dry the device. Place each piece downward or rest the unit on its side. 7. Replace the mouthpiece when the unit is completely dry and ready for use. documented in this [facility] [place] History of Present illness Narrative* Ubaldo Dubose MD - 12/28/2023 1:30 PM EST Images from the original note were not included. Respiratory [place] Karuna Reynaga is a 78 year old female here for evaluation by the [facility] Interstitial Lung Disease Team. 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 SOCIAL HISTORY Social History Tobacco Use Smoking [...] myself) Laboratory Data Laboratory data reviewed in [facility] Everywhere. Pulmonary Function Data [...] her how to use it but her igxavyxd-gn-udu states that she will likely not be [...] 2023 5:04 PM CC: documented in this encounter[facility] [place] Procedure note* Edgar Bryson, RT(R) - 12/27/2023 [...] PATIENT PRESENTS WITH AN IMPLANTABLE OR ATTACHED DRAPERY HAND: No RADIOLOGY DEPARTMENT: CT; Exam(s) Completed: Chest PERIPHERAL IV DATA: Not applicable SIGNED BY: RT Reginald(R) December 27, 2023 1:09 PM [facility]02-22-2024 Procedure note* Edgar Bryson RT(R) - 12/27/2023 [...] PATIENT PRESENTS WITH AN IMPLANTABLE OR ATTACHED DRAPERY HAND: No RADIOLOGY DEPARTMENT: CT; Exam(s) Completed: Chest PERIPHERAL IV DATA: Not applicable SIGNED BY: RT Reginald(R) December 27, 2023 1:09 PM documented in this encounterSelect [facility] [place] History of Present illness Narrative* Yamini Lan RRT - 12/25/2023 3:10 PM EST Pulmonary Function Test documented in this encounterSelect [facility] [place] History of Present illness Narrative* Yamini Lan RRT - 12/25/2023 2:58 PM EST PULM FUNCTION SMARTBLOCK: Provider: Ubaldo Dubose MD Spirometry: 1 DLCO: 1 documented in this encounter[facility] [place] Evaluation note* Author Imroni [facility] Authored February 21, 2024 [...] dysphagia then determine the need for PPI [facility] Work Phone: 1(246) 745-150212-16-2021 NoteHISTORY: Bone density screening. COMPARISON: None available. [...] and signed by Vimal Ernst on 10/20/2021 1621[place] [facility] SpecialistConsult note Author Praveena Garcia [facility] Note Date/Time March 14, 2025 3:10p m [facility] [address] [place] [address] Cardiology Consult Note Signed Patient: Karuna Reynaga MR#: [id number] : 1945 Acct:[id number] Age/Sex: 80 / F Adm Date: 5 Loc: Room: [address] [place] [address] Type: ADM IN Attending Dr: Renan Murguia [...] ischemia. Echo at the time showed normal KXUY24-07% with moderately dilated RV and mild pulmonary hypertension. Repeat limited echo today shows normal LV function 60-65% with normal wall motion. Shedenies any chest pain, palpitations, lightheadedness, dizziness, BLE edema, orthopnea or PND. Review of Systems Review of Systems All other systems reviewed & are negative unless noted below or in HPI [facility] Medical History Idiopathic interstitial pulmonary disease [...] monohydrate/macrocrystals 100 mg capsule 100 mg PO .oqih-umhfk-eza 03/14/25 [History Confirmed 03/14/25] simvastatin 20 mg [...] Lymph # (Auto) 1.3 1.2 (1.00-4.8) x10E3/uL [place] # (Auto) 0.5 0.6 (0.0-0.8) x10E3/uL Eos [...] ml @ 250 mls/hr IV ONCE ONE Rx#:[id number] cefTRIAXone 1GM-*NS* 1 gm In 50 50 / 50 ml @ 100 mls/hr IV ONCE ONE Rx #:[id number] Oral 100 / 100 Other: # Voids [...] Human metapneumovirus pneumonia Plan Assessment: Type II MD in the setting of community acquired pneumonia [...] signed by Praveena Garcia MD> 03/14/25 1510 [facility] Work Phone: Discharge summary Author Renan Murguia [facility] Note Date/Time March 15, 2025 3:38p m [facility] [address] [place] [address] Discharge Summary Signed Patient: Karuna Reynaga MR#: [id number] : 1945 Acct:[id number] Age/Sex: 80 / F Adm Date: 5 Loc: Room: [address] [place] [address]: Renan Murguia MD Copies to: [...] Plan Discharge Plan Patient Disposition: Home Health [facility] Activity: No Activity Restriction Diet: Regular Additional [...] monohyd/m-cryst 100 mg capsule 100 mg PO .yuot-tqkem-axi simvastatin 20 mg tablet 20 mg PO QHS Other Ambulatory Orders: Initiate Home Health (Routine) Timeframe: 1 Day Location: Determined by Patient Ordered By: Renan Murguia Follow Up: Jamal Alvarez DO [Primary Care Provider] - (Call office on Sunday to schedulefollow-up with your Primary Care Provider within 3-5 days of discharge. ) Continuity of Care Document Health Concerns: A [facility] screening has identified you as FRAIL or [...] Four Ways to Beat the Frailty Risk [email or web address] Exam Physical Exam Vital Signs: Temp Pulse [...] signed by Renan Murguia MD> 03/15/25 1538 [facility] Work Phone: Evaluation noteNo assessment information available [facility]* Diagnosis Hypothyroidism, adult- Primary Other specified acquired hypothyroidism 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) Mixed hyperlipidemia documented in this encounter [facility]* Diagnosis Dermatophytosis of nail- Primary Well controlled type 2 diabetes mellitus with neurological manifestations (HCC) Type II or unspecified type diabetes mellitus with neurological manifestations, not stated as uncontrolled Unspecified hypothyroidism documented in this encounter [facility]* Diagnosis Dermatophytosis of nail- Primary [facility]* Diagnosis ILD (interstitial lung disease) (HCC)- Primary Postinflammatory pulmonary fibrosis Shortness of breath documented [facility] this encounter [facility]* Diagnosis Bronchiectasis without complication (HCC)- Primary Bronchiectasis without acute exacerbation Aspiration pneumonitis (HCC) Pneumonitis due to inhalation of food or vomitus Traumatic brain injury with loss of consciousness, sequela (HCC) documented in this encounter [facility]* Diagnosis Onset Date Resolution Status Bronchitis noneactive [facility] Work Phone: Evaluation note* Diagnosis Bronchiectasis without complication (HCC)- Primary Bronchiectasis without acute exacerbation documented in this encounter [facility]* Diagnosis Bronchiectasis without complication (HCC)- Primary Bronchiectasis without acute exacerbation documented in this encounter [facility] note* Diagnosis Bronchiectasis without complication (HCC)- Primary Bronchiectasis without acute exacerbation Aspiration pneumonitis (HCC) Pneumonitis due to inhalation of food or vomitus Traumatic brain injury with loss of consciousness, sequela (HCC) documented in this encounter [facility]* Diagnosis Shortness of breath Hyperlipidemia, unspecified hyperlipidemia type Traumatic brain injury, with unknown loss of consciousness status, sequela ([facility]-HCC) BMI 32.0-32.9,adult Former smoker Personal history of [...] Medication course changed documented in this encounter [facility] Work Phone: Evaluation note* Diagnosis Convulsions, unspecified convulsion type (HCC)- Primary documented in this encounter [facility] note* Diagnosis Bronchiectasis without complication (HCC) Bronchiectasis without acute exacerbation documented in this encounter [facility]* Diagnosis Bronchiectasis without complication (HCC)- Primary Bronchiectasis without acute exacerbation documented in this encounter [facility]* Diagnosis Bronchiectasis without complication (HCC)- Primary Bronchiectasis without acute exacerbation Yeast infection Candidiasis of unspecified site documented in this encounter [facility]* Diagnosis Interstitial pulmonary disease (HCC) Postinflammatory pulmonary fibrosis documented in this encounter [facility]* Diagnosis Convulsions, unspecified convulsion type (HCC)- Primary documented in this encounter [facility]* Diagnosis Focal epilepsy with impairment of consciousness, intractable (HCC)- Primary Localization-related (focal) (partial) 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, with intractable epilepsy documented in this encounter [facility]* Diagnosis Recurrent UTI- Primary Urinary tract infection, site not specified Bronchiectasis without complication (CMS/HCC) Atherosclerosis of aorta (CMS/HCC) Atherosclerosis of aorta Combined hyperlipidemia (CMS/HCC) Other and unspecified hyperlipidemia 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 (CMS/HCC) Need for immunization against influenza Need for prophylactic vaccination and inoculation against influenza 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) Gastroesophageal reflux disease without esophagitis Esophageal reflux Hypothyroidism, unspecified type (CMS/HCC) Moderate asthma without complication, unspecified whether persistent (CMS/HCC) Osteoporosis, unspecified osteoporosis type, unspecified pathological fracture presence (CMS/HCC) Urinary incontinence, unspecified type Seizure (CMS/HCC) Other convulsions Traumatic brain injury with loss of consciousness, subsequent encounter Medication management [facility]* Diagnosis Bronchiectasis without complication (HCC) Bronchiectasis without acute exacerbation documented in this encounter [facility]* Diagnosis Focal epilepsy with impairment of consciousness, intractable (HCC)- Primary Localization-related (focal) (partial) 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, with intractable epilepsy documented in this encounter [facility]* Diagnosis Bronchiectasis without complication (CMS/HCC)- Primary Edema, unspecified type Recurrent UTI Urinary tract infection, site not specified Seizure (CMS/HCC) Other convulsions Traumatic brain injury with loss of consciousness, subsequent encounter DISH (diffuse idiopathic skeletal hyperostosis) Ankylosing vertebral hyperostosis Hypothyroidism, unspecified type (CMS/HCC) Combined hyperlipidemia (CMS/HCC) Other and unspecified hyperlipidemia Medicare annual wellness visit, subsequent Advance care planning Other specified counseling documented in this encounter [facility]* Diagnosis Onset Date Resolution Status Admit Date Acute confusion acute March 14, 2025 1:57am Acute hypoxic respiratory failure ac samish March 14, 2025 1:57am Community acquired pneumonia acute March 14, 2025 1:57am Elevated troponin acute March 1:57am Human metapneumovirus pneumonia acut e March 14, 2025 1:57am Weakness acute March 14, 2025 1:57am [facility] Work Phone: Evaluation note* Diagnosis Bronchiectasis with [...] unspecified type (CMS/HCC) documented in this encounter [facility] HealthcareEvaluation note* Diagnosis Ankylosing spondylitis lumbar region (CMS/HCC)- Primary documented in this encounter [facility] HealthcareEvaluation note* Diagnosis OME (otitis media with effusion), right- Primary documented in this encounter [facility] HealthcareEvaluation note* Diagnosis Acute bilateral mastoiditis- Primary Other specified hearing loss of both ears documented in this encounter [facility] note* Diagnosis Generalized abdominal pain- Primary Abdominal pain, generalized Diarrhea, unspecified type Nausea and vomiting, unspecified vomiting type Other specified intestinal obstruction, unspecified whether partial or complete (HCC) Diverticulosis Diverticulosis of colon (without mention of hemorrhage) documented in this encounter [facility] HealthcareEvaluation note* Diagnosis Bronchiectasis without complication (HCC) Bronchiectasis without acute exacerbation [facility] Diagnosis Symptomatic cholelithiasis Calculus of gallbladder without mention of cholecystitis or obstruction documented [facility] Diagnosis Focal epilepsy with impairment of consciousness, intractable (HCC)- Primary Localization-related (focal) (partial) 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, with intractable epilepsy [facility] Diagnosis Pure hypercholesterolemia- Primary Pure hypercholesterolemia [...] not elsewhere classified documented in this encounter [facility] note* Diagnosis Dysfunction of both eustachian tubes- Primary Dysfunction of Eustachian tube Symptomatic cholelithiasis Calculus of gallbladder without mention of cholecystitis or obstruction [facility] Diagnosis Middle ear effusion, right- Primary Chronic otitis media of both ears Unspecified otitis media Symptomatic cholelithiasis Calculus of gallbladder without mention of cholecystitis or obstruction documented [facility] this [facility]* Diagnosis Pre-op evaluation- Primary Preoperative examination, unspecified Hypercholesteremia Pure hypercholesterolemia 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 (HCC) Pulmonary hypertension (HCC) Other chronic pulmonary heart diseases Seizure disorder (HCC) Unspecified epilepsy without mention of intractable epilepsy Traumatic brain injury, with unknown loss of consciousness status, subsequent encounter Interstitial lung disease (HCC) Postinflammatory pulmonary fibrosis TIA (transient ischemic attack) Unspecified transient cerebral ischemia At risk for aspiration pneumonia 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 Prediabetes Other abnormal glucose Symptomatic cholelithiasis Calculus of gallbladder without mention of cholecystitis or obstruction * Assessment & Plan Note - Clinton Desai PA-C - 07/16/2025 1:20 PM EDT Associated Problem(s): Prediabetes Assessment: most recent a1c was 6 Pt is currently on ozempic, instructions with min of 7 day hold given to patient and daughter * Assessment & Plan Note - Clinton Desai PA-C - 07/16/2025 1:19 PM EDT Associated Problem(s): prison (current) use of antithrombotics/antiplatelets Assessment: pt has ok to hold plavix for 5 days prior to procedure * Assessment & Plan Note - Clinton Desai PA-C - 07/16/2025 1:18 PM EDT Associated Problem(s): 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 reported by daughter who is director career. H/o micro aspiration in past * Assessment & Plan Note - Clinton Desai PA-C - 07/16/2025 1:14 PM EDT Associated Problem(s): TIA (transient ischemic attack) Assessment: stable, pt on plavix half-way Ok to hold per neurology scanned into epic Instructed pt to hold 5 days prior to procedure * Assessment & Plan Note - Clinton Desai PA-C - 07/16/2025 1:13 PM EDT Associated Problem(s): Interstitial lung disease (HCC) Assessment: stable, chronic with current regimen Pt on ozempic and zithromax 3x/week to help prevent bronchectasis Spirometry: 2023 Interpretive Statements Daughter present during testing. Best test reported despite difficult testing session. Acceptability and/or repeatability criteria not met despite patient's best efforts. Early termination of expiration and no valid expiratory plateau per ATS/ERS guidelines. The two largest FVCs and FEV1s were repeatable. The two largest DLCO values were repeatable. //AP IMPRESSION: Spirometry is normal. The diffusing capacity is normal * Assessment & Plan Note - Clinton Desai PA-C - 07/16/2025 1:12 PM EDT Associated Problem(s): TBI (traumatic brain injury) (HCC) Assessment: STML, * Assessment & Plan Note - Clinton Desai PA-C - 07/16/2025 1:11 PM EDT Associated Problem(s): Seizure disorder (HCC) Assessment: STABLE WITH medication Neuro optimization letter scanned into [employer] on 06/11 with recommendations for pt to take meds dos * Assessment & Plan Note - Clinton Desai PA-C - 07/13/2025 6:58 PM EDT Associated Problem(s): Pulmonary hypertension (HCC) Assessment: mild per echo 2023 RVSP was 38 * Assessment & Plan Note - Clinton Desai PA-C - 07/13/2025 6:55 PM EDT Associated Problem(s): Hypercholesteremia Assessment: stable , well controlled Most recent lipid panel WNL documented in this encounter [facility] Author Magda Navarro [facility] Note Date/Time March 14, 2025 4:16a m [facility] [address] [place] [address] Hospitalist H&P Signed Patient: Karuna Reynaga MR#: [id number] : 1945 Acct:[id number] Age/Sex: 80 / F Adm Date: 5 Loc: Room: [address] [place] [address] Type: ADM IN Attending Dr: Matias Valdez DO Copies to: Jamal Alvarez,ROSELYN Monterroso, ~ HPI DATE OF EXAMINATION: 03/14/25 CHIEF [...] be admitted as inpatient to the [facility] telemetry floor. Review of Systems Review of Systems Unobtainable due to mental condition [facility] Medical History Idiopathic interstitial pulmonary disease [...] monohydrate/macrocrystals 100 mg capsule 100 mg PO .qmze-txqdo-xbp 03/14/25 [History Confirmed 03/14/25] simvastatin 20 mg [...] % (Auto) 23.1 % (.) 03/13/25 22:38 [place] % (Auto) 9.3 % (.) 03/13/25 22:38 Eos % (Auto) 1.1 % (.) 03/13/25 22:38 Baso % (Auto) 0.7 % (.) 03/13/25 22:38 Nucleat RBC Rel Count 0.1 /100 WBC (0-0.5) 03/13/25 22:38 Neut # (Auto) 3.7 x10E3/uL (1.8-7.7) 03/13/25 22:38 Lymph # (Auto) 1.3 x10E3/uL (1.00-4.8) 03/13/25 22:38 [place] # (Auto) 0.5 x10E3/uL (0.0-0.8) 03/13/25 22:38 [...] pH 5.5 (5.0-9.0) 03/13/25 23:11 Ur Specific [place] 1.032 (1.001-1.030) H 03/13/25 23:11 Urine Protein [...] signed by Matias Valdez DO> 03/14/25 0416 [facility] Work Phone: Hospital Discharge instructions Additional Instructions [...] NOT operate machinery such as power tools, [employer]ier[employer] mowers, snow blowers, sewing machines, etc. for [...] arrange for modified barium swallow -Office number [phone]. [facility] Work Phone: Progress note Author W Deshawn [facility] April 16, 2024 6:05pm Note Date/Time April 16, 2024 6:05 pm [facility] [address] [place] [address] Cardiology Progress Note Signed Patient: Karuna Reynaga MR#: [id number] : 1945 Acct:[id number] Age/Sex: 79 / F Adm Date: 4 Loc: Room: [address] [place] [address] Type: ADM IN Attending Dr: Renan Murguia MD Copies to: ~ Date of Service: 04/16/2024 Subjective Principal diagnosis: Near syncopal episode; troponin elevation Interval history: Ms. Reynaga is a 79 year old female that was seen in cardiology consultation at the request of the hospitalist and in conjunction with second-year medical dermatologist Dr. Hernandez for elevated troponin levels. Patient is seen and evaluated with the medical dermatologist, I agree with her evaluation and note, [...] on Lasix one month ago by her travel trailer components assembler, Dr. Lora, for possible heart failure. Her [...] % (Auto) 66.9 Lymph % (Auto) 22.3 [place] % (Auto) 6.4 Eos % (Auto) 3.6 Baso % (Auto) 0.8 Nucleat RBC Rel Count 0.0 Neut # (Auto) 5.0 Lymph # (Auto) 1.7 [place] # (Auto) 0.5 Eos # (Auto) 0.3 [...] <Electronically signed by Vic Hess DO> 04/16/241804 [facility] Work Phone: Progress note Author Renan Murguia [facility] Note Date/Time March 14, 2025 1:01p m [facility] [address] [place] [address] Hospitalist Progress Note Signed Patient: Karuna Reynaga MR#: [id number] : 1945 Acct:[id number] Age/Sex: 80 / F Adm Date: 5 Loc: 3T Room: [address] [place] [address] Type: ADM IN Attending Dr: Renan Murguia [...] of care and confirmed it with the resident/student/STILL TENDER. Patient seen sitting in chair at bedside [...] 03/14/25 09:00 03/14/25 09:28 Pantoprazole 40 Mg Tablet. PO 03/14/26 08:59 40 mg BID MIRYAM Administration Rivaroxaban 10 mg 03/15/25 09:00 Rivaroxaban 10 Mg Tablet PO 03/15/26 08:59 DAILY [facility] Sodium Chloride 0 ml 03/13/25 17:14 Sodium [...] signed by DO JAUN Hawkins> 03/14/25 1213 [facility] Work Phone: Progress note Author Renan Murguia [facility] Note Date/Time March 15, 2025 1:54p m [facility] [address] [place] [address] Hospitalist Progress Note Signed Patient: Karuna Reynaga MR#: [id number] : 1945 Acct:[id number] Age/Sex: 80 / F Adm Date: 5 Loc: Room: [address] [place] [address] Type: ADM IN Attending Dr: Renan Murguia [...] cardiology. Documented By: Renan Murguia MD 03/15/25 1684 Signed By: <Electronically signed by Renan Murguia MD> 03/15/25 [facility] Work Phone: Reason for referral (narrative)* Outpatient Procedure (Routine) - Authorized Specialty Diagnoses / Procedures Referred By Contac t Referred To Contact [facility] Diagnoses Bronchiectasis without complication (HCC) Procedures LUNG DIFFUSION CAPACITY (DLCO) DIFFUSING CAPACITY Ubaldo Dubose MD [address] [place] [address] [place] [address] Referral ID Status Reason Start Date Expiration Date Visits Requested Visits Authorized [id number] Authorized Auto-Generat ed Referral 12/28/2023 01/26/2025 1 1 * Outpatient Procedure (Routine) - Authorized Specialty Diagnoses / Procedures Referred By Contac t Referred To Contact [facility] Diagnoses Bronchiectasis without complication (HCC) Procedures SPIROMETRY BASELINE ONLY SPMTRY W/VC EXPIRATORY MIRIAM W/WO MXML VOL VNTJ Ubaldo Dubose MD [address] [place] [address] [place] [address] Referral ID Status Reason Start Date Expiration Date Visits Requested Visits Authorized [id number] Authorized Auto-Generat ed Referral 12/28/2023 01/26/2025 1 1 [facility] for referral (narrative)* Outpatient Procedure (Routine) - Pending Review Specialty Diagnoses / Procedures Referred By Contac t Referred To Contact [facility] Diagnoses Convulsions, unspecified convulsion type (HCC) Procedures EPIL EEG LONG EEG EXTENDED MONITORING 61-119 MINUTES ELECTROENCEPHALOGRAM REC COMA/SLEEP ONLY Brian Lorenzo, CONSULTING PROJECT DIRECTOR.[employer] CONSULTANT [id number] [place] [address] Referral ID Status Reason Start Date Expiration Date Visits Requested Visits Authorized [id number] Pending Review Auto-Generat ed Referral 04/22/2024 04/22/2025 1 1 [facility] for referral (narrative)* Outpatient Procedure (Routine) - New Request Specialty Diagnoses / Procedures Referred By Contac t Referred To Contact [facility] Diagnoses Convulsions, unspecified convulsion type (HCC) Procedures EPIL EEG LONG EPIL EEG LONG EEG EXTENDED MONITORING 61-119 MINUTES ELECTROENCEPHALOGRAM REC COMA/SLEEP ONLY Melvi García PA-C [address] [address] [facility] [place] [address] [place] [address] Referral ID Status Reason Start Date Expiration Date Visits Requested Visits Authorized [id number] New Request Auto-Generat ed Referral 07/30/2024 07/30/2025 1 1 [facility] for referral (narrative)* Consult, Test, Treat (Routine) - New Request Specialty Diagnoses / Procedures Referred By Contac t Referred To Contact Procedures HEARING TEST/AUDIOGRAM COMPRE AUDIOMETRY THRESHOLD EVAL SP RECOGNIJ Anastasia Kraus, BARBI [address] [place] [address] Phone: tel: fax: [facility] [place] [address] [place] [address] Referral ID Status Reason Start Date Expiration Date Visits Requested Visits Authorized [id number] New Request Auto-Generat ed Referral 07/10/2025 07/11/2026 1 1 [facility] Family History Unknown Family Member Name Dates [...] 142024 1:57am Community acquired pneumonia March 14, 1:57am Elevated troponin March 14, 2025 1:57a [...] 3: 02pm Gastroesophageal reflux disease (GERD) [facility] 2024 12:46pm Chief Complaint Admit Date Unknown February 25, 2025 3:3 0pm cough, sob, chest pain March 14, 2025 1: 57am cough, sob, chest pain March 14, 2025 3: 02pm Gastroesophageal reflux disease (GERD) J [facility] 2024 12:46pm R59.0 May 07, 2025 7:40p m Chief Complaint Admit Date cough, sob, chest pain March 14, 2025 1: 57am cough, sob, chest pain March 14, 2025 3: 02pm Gastroesophageal reflux disease (GERD) J [facility] 2024 12:46pm R59.0 May 07, 2025 7:40p m R13.10 May 28, 2025 1:29 pm Reason for Referral Specialty Diagnoses / Procedures Referred By Contac t Referred To Contact Cardiology Diagnoses Shortness of breath Cough, unspecified type Abnormal lung sounds Procedures Transthoracic Echo Complete IN ECHO TTHRC R-T 2D W/WOM-MODE COMPL SPEC&COLR D Judit Lora MD [address] [place] [id number] Referral ID Status Reason Start Date Expiration Date Visits Requested Visits Authorized [id number] Pending Review Perform Procedure 03/10/2024 03/10/2025 1 1 Specialty Diagnoses / Procedures Referred By Contac t Referred To Contact Diagnoses Shortness of breath Procedures ECG 12 Lead Judit Lora MD [address] [place] [address] Referral ID Status Reason Start Date Expiration Date V isits Requested Visits Authorized [id number] Authorized 03/10/2024 03/10/2025 1 1 Specialty Diagnoses / Procedures Referred By Contac t Referred To Contact Cardiology Diagnoses Shortness of breath Procedures Follow Up In Cardiology Judit Lora MD [address] [place] [address] Judit Lora MD [address] [place] [address] Referral ID Status Reason Start Date Expiration Date V isits Requested Visits Authorized [id number] Authorized 03/10/2024 03/10/2025 1 1 Specialty Diagnoses / Procedures Referred By Contac t Referred To Contact CT IMAGING Diagnoses Interstitial pulmonary disease (HCC) Procedures CT CHEST WO IVCON DIAGNOSTIC COMPUTED TOMOGRAPHY THORAX W/O NICHOLERSDee Epps, CONSULTING PROJECT DIRECTOR.[employer] CONSULTANT [address] [place] [address] [place] [address] Referral ID Status Reason Start Date Expiration Date V isits Requested Visits Authorized [id number] Closed Auto-Generate d Referral 12/11/2023 01/09/2025 1 [...] section and content) DATE CREATED AUTHOR 10/21/2021 [facility] Specialist DATE CREATED AUTHOR AUTHOR'S ORGANIZ ATION 10/22/2021 [facility] DATE CREATED AUTHOR AUTHOR'S ORGANIZ ATION 02/12/2023 [facility] DATE CREATED AUTHOR AUTHOR'S ORGANIZ ATION 01/09/2025 [facility] DATE CREATED AUTHOR AUTHOR'S ORGANIZ ATION 01/19/2025 [facility] DATE CREATED AUTHOR AUTHOR'S ORGANIZ ATION 05/05/2025 [facility] DATE CREATED AUTHOR AUTHOR'S ORGANIZ ATION 05/30/2025 [facility] DATE CREATED AUTHOR AUTHOR'S ORGANIZ ATION 06/29/2025 [facility] EPIC DATE CREATED AUTHOR AUTHOR'S ORGANIZ ATION 07/19/2025 [facility] DATE CREATED AUTHOR AUTHOR'S ORGANIZ ATION 07/25/2025 [facility] Source Comments (unrecognize d section and content) In the event this informatio n is protected by the Federal Confidentiality of Alcohol and Drug Abuse Patient Records regulations: The Federal rules restrict any use of the information to criminally investigate or prosecute any alcohol or drug abuse patient.[facility] the event this information is protected by the Federal Confidentiality of Alcohol and Drug Abuse Patient Records regulations: The Federal rules restrict any use of the information to criminally investigate or prosecute any alcohol or drug abuse patient.[facility] the event this information is protected by the Federal Confidentiality of Alcohol and Drug Abuse Patient Records regulations: The Federal rules restrict any use of the information to criminally investigate or prosecute any alcohol or drug abuse patient.[facility] the event this information is protected by the Federal Confidentiality of Alcohol and Drug Abuse Patient Records regulations: The Federal rules restrict any use of the information to criminally investigate or prosecute any alcohol or drug abuse patient.[facility] the event this information is protected by the Federal Confidentiality of Alcohol and Drug Abuse Patient Records regulations: The Federal rules restrict any use of the information to criminally investigate or prosecute any alcohol or drug abuse patient.[facility] the event this information is protected by the Federal Confidentiality of Alcohol and Drug Abuse Patient Records regulations: The Federal rules restrict any use of the information to criminally investigate or prosecute any alcohol or drug abuse patient.[facility] the event this information is protected by the Federal Confidentiality of Alcohol and Drug Abuse Patient Records regulations: The Federal rules restrict any use of the information to criminally investigate or prosecute any alcohol or drug abuse patient.[facility] the event this information is protected by the Federal Confidentiality of Alcohol and Drug Abuse Patient Records regulations: The Federal rules restrict any use of the information to criminally investigate or prosecute any alcohol or drug abuse patient.[facility] the event this information is protected by the Federal Confidentiality of Alcohol and Drug Abuse Patient Records regulations: The Federal rules restrict any use of the information to criminally investigate or prosecute any alcohol or drug abuse patient.[facility] the event this information is protected by the Federal Confidentiality of Alcohol and Drug Abuse Patient Records regulations: The Federal rules restrict any use of the information to criminally investigate or prosecute any alcohol or drug abuse patient.[facility] the event this information is protected by the Federal Confidentiality of Alcohol and Drug Abuse Patient Records regulations: The Federal rules restrict any use of the information to criminally investigate or prosecute any alcohol or drug abuse patient.[facility] the event this information is protected by the Federal Confidentiality of Alcohol and Drug Abuse Patient Records regulations: The Federal rules restrict any use of the information to criminally investigate or prosecute any alcohol or drug abuse patient.[facility] the event this information is protected by the Federal Confidentiality of Alcohol and Drug Abuse Patient Records regulations: The Federal rules restrict any use of the information to criminally investigate or prosecute any alcohol or drug abuse patient.[facility] the event this information is protected by the Federal Confidentiality of Alcohol and Drug Abuse Patient Records regulations: The Federal rules restrict any use of the information to criminally investigate or prosecute any alcohol or drug abuse patient.[facility] the event this information is protected by the Federal Confidentiality of Alcohol and Drug Abuse Patient Records regulations: The Federal rules restrict any use of the information to criminally investigate or prosecute any alcohol or drug abuse patient.[facility] the event this information is protected by the Federal Confidentiality of Alcohol and Drug Abuse Patient Records regulations: The Federal rules restrict any use of the information to criminally investigate or prosecute any alcohol or drug abuse patient.[facility] the event this information is protected by the Federal Confidentiality of Alcohol and Drug Abuse Patient Records regulations: The Federal rules restrict any use of the information to criminally investigate or prosecute any alcohol or drug abuse patient.[facility] the event this information is protected by the Federal Confidentiality of Alcohol and Drug Abuse Patient Records regulations: The Federal rules restrict any use of the information to criminally investigate or prosecute any alcohol or drug abuse patient.[facility] the event this information is protected by the Federal Confidentiality of Alcohol and Drug Abuse Patient Records regulations: The Federal rules restrict any use of the information to criminally investigate or prosecute any alcohol or drug abuse patient.[facility] the event this information is protected by the Federal Confidentiality of Alcohol and Drug Abuse Patient Records regulations: The Federal rules restrict any use of the information to criminally investigate or prosecute any alcohol or drug abuse patient.[facility] the event this information is protected by the Federal Confidentiality of Alcohol and Drug Abuse Patient Records regulations: The Federal rules restrict any use of the information to criminally investigate or prosecute any alcohol or drug abuse patient.[facility] the event this information is protected by the Federal Confidentiality of Alcohol and Drug Abuse Patient Records regulations: The Federal rules restrict any use of the information to criminally investigate or prosecute any alcohol or drug abuse patient.[facility] the event this information is protected by the Federal Confidentiality of Alcohol and Drug Abuse Patient Records regulations: The Federal rules restrict any use of the information to criminally investigate or prosecute any alcohol or drug abuse patient.[facility] the event this information is protected by the Federal Confidentiality of Alcohol and Drug Abuse Patient Records regulations: The Federal rules restrict any use of the information to criminally investigate or prosecute any alcohol or drug abuse patient.[facility] the event this information is protected by the Federal Confidentiality of Alcohol and Drug Abuse Patient Records regulations: The Federal rules restrict any use of the information to criminally investigate or prosecute any alcohol or drug abuse patient.[facility] the event this information is protected by the Federal Confidentiality of Alcohol and Drug Abuse Patient Records regulations: The Federal rules restrict any use of the information to criminally investigate or prosecute any alcohol or drug abuse patient.[facility] the event this information is protected by the Federal Confidentiality of Alcohol and Drug Abuse Patient Records regulations: The Federal rules restrict any use of the information to criminally investigate or prosecute any alcohol or drug abuse patient.[facility] the event this information is protected by the Federal Confidentiality of Alcohol and Drug Abuse Patient Records regulations: The Federal rules restrict any use of the information to criminally investigate or prosecute any alcohol or drug abuse patient.[facility]In the event this information is protected by the Federal Confidentiality of Alcohol and Drug Abuse Patient Records regulations: The Federal rules restrict any use of the information to criminally investigate or prosecute any alcohol or drug abuse patient.[facility]In the event this information is protected by the Federal Confidentiality of Alcohol and Drug Abuse Patient Records regulations: The Federal rules restrict any use of the information to criminally investigate or prosecute any alcohol or drug abuse patient.[facility]In the event this information is protected by the Federal Confidentiality of Alcohol and Drug Abuse Patient Records regulations: The Federal rules restrict any use of the information to criminally investigate or prosecute any alcohol or drug abuse patient.[facility]In the event this information is protected by the Federal Confidentiality of Alcohol and Drug Abuse Patient Records regulations: The Federal rules restrict any use of the information to criminally investigate or prosecute any alcohol or drug abuse patient.[facility]In the event this information is protected by the Federal Confidentiality of Alcohol and Drug Abuse Patient Records regulations: The Federal rules restrict any use of the information to criminally investigate or prosecute any alcohol or drug abuse patient.[facility]In the event this information is protected by the Federal Confidentiality of Alcohol and Drug Abuse Patient Records regulations: The Federal rules restrict any use of the information to criminally investigate or prosecute any alcohol or drug abuse patient.[facility]In the event this information is protected by the Federal Confidentiality of Alcohol and Drug Abuse Patient Records regulations: The Federal rules restrict any use of the information to criminally investigate or prosecute any alcohol or drug abuse patient.[facility]In the event this information is protected by the Federal Confidentiality of Alcohol and Drug Abuse Patient Records regulations: The Federal rules restrict any use of the information to criminally investigate or prosecute any alcohol or drug abuse patient.[facility]In the event this information is protected by the Federal Confidentiality of Alcohol and Drug Abuse Patient Records regulations: The Federal rules restrict any use of the information to criminally investigate or prosecute any alcohol or drug abuse patient.[facility]In the event this information is protected by the Federal Confidentiality of Alcohol and Drug Abuse Patient Records regulations: The Federal rules restrict any use of the information to criminally investigate or prosecute any alcohol or drug abuse patient.[facility]In the event this information is protected by the Federal Confidentiality of Alcohol and Drug Abuse Patient Records regulations: The Federal rules restrict any use of the information to criminally investigate or prosecute any alcohol or drug abuse patient.[facility]In the event this information is protected by the Federal Confidentiality of Alcohol and Drug Abuse Patient Records regulations: The Federal rules restrict any use of the information to criminally investigate or prosecute any alcohol or drug abuse patient.[facility] Care Teams (unrecognized sec tion and content) Pulp Grinder Feeder Relationship Specialty Start Date End Date Kostas Vance, DO [address] [place] [address] PCP - General 05/25/09 Pulp Grinder Feeder Relationship Specialty Start Date End Date Kostas Vance, DO [address] [place] [address] PCP - General 05/25/09 Pulp Grinder Feeder Relationship Specialty Start Date End Date Kostas Vance, DO [address] [place] [address] PCP - General 05/25/09 Team Status: Inactive [...] November 21, 2023 End: November 21, 2023 Pulp Grinder Feeder Relationship Specialty Start Date End Date Jamal Alvarez DO [address] [address] PCP - General Internal Medicine 12/25/23 Pulp Grinder Feeder Relationship Specialty Start Date End Date Jamal Alvarez [address] [place] [address] PCP - General Internal Medicine 12/25/23 Pulp Grinder Feeder Relationship Specialty Start Date End Date Jamal Alvarez Yogesh, [address] [place] [address] PCP - General Internal Medicine 12/25/23 Team [...] Provider Active S tart: February 13, 2024 Pulp Grinder Feeder Relationship Specialty Start Date End Date Wilner Alvareztaya MerchantanDO [address] [place] [address] PCP - General Internal Medicine 12/25/23 Team Status: Active Member Role Status Dates Jamal Alvarez DO Primary Care Provide r, Attending Provider Active Start: February 19, 2024 Team Status: Inactive Member Role Status Dates Jamal Alvarez DO Primary Care Provider Active Start: February 21, 2024 End: February 21, 2024 Flex Ramos MD Attending Provider Active Start: February 21, 2024 End: February 21, 2024 Pulp Grinder Feeder Relationship Specialty Start Date End Date Jamal Alvarez DO [address] [place] [address] PCP - General Internal Medicine 12/25/23 Team [...] February 25, 2024 End: February 25, 2024 Pulp Grinder Feeder Relationship Specialty Start Date End Date Jamal Alvarez DO [address] [place] [address] PCP - General Internal Medicine 12/25/23 Pulp Grinder Feeder Relationship Specialty Start Date End Date Jamal Alvarez DO [address] [place] [address] PCP - General Internal Medicine 12/25/23 Pulp Grinder Feeder Relationship Specialty Start Date End Date Jamal Alvarez DO [address] [place] [address] PCP - General Internal Medicine 12/25/23 Pulp Grinder Feeder Relationship Specialty Start Date End Date Jamal Alvarez DO [address] [place] [address] PCP - General 11/05/99 Team Status: Active Member Role Status Dates Jamal Alvarez DO Primary Care Provider Active Start: April 13, 2024 Simone Navarro MD Emergency Provider Active Star t: April 13, 2024 Albert Frings , DO Admit Provider, Attending Provider Active Start: [...] 2023 End: April 16, 2024 Emilee Perez [facility]- Other Provider Active Sta rt: April [...] Start: J une 2023 Emilee Perez , [facility]- Other Provider Active Sta rt: April [...] February 22, 2024 End: February 22, 2024 Pulp Grinder Feeder Relationship Specialty Start Date End Date Jamal Alvarez DO [address] [facility] [address] [place] [address] PCP - General Internal Medicine 12/25/23 Team Status: Inactive Member Role Status Dates Jamal Alvarez DO Primary Care Provider Active Start: April 22, 2024 End: April 22, 2024 Valdez Castro MD Attending Provider Active S tart: April 22, 2024 End: April 22, 2024 Pulp Grinder Feeder Relationship Specialty Start Date End Date Jamal Alvarez DO [address] [place] [address] PCP - General Internal Medicine 12/25/23 Team [...] 2023 End: April 16, 2024 Emilee Perez [facility] Other Provider Active Sta rt: [...] 2023 End: April 16, 2024 Emilee Perez [facility]- Other Provider Active Sta rt: April 16, 2024 End: April 16, 2024 Andry Nugent DO Other Provider Active Start: April 16, 2024 End: April 16, 2024 Inocencio Mg MD Attending Provider Activ e Start: April 16, 2024 End: April 16, 2024 Pulp Grinder Feeder Relationship Specialty Start Date End Date Jamal Alvarez DO [address] [place] [address] PCP - General Internal Medicine 12/25/23 Pulp Grinder Feeder Relationship Specialty Start Date End Date Jamal Alvarez DO [address] [place] [address] PCP - General Internal Medicine 12/25/23 Pulp Grinder Feeder Relationship Specialty Start Date End Date Jamal Alvarez DO [address] [facility] [address] [place] [address] PCP - General Internal Medicine 03/13/23 Saul Abdalla, DO [address] [place] [address] Referring Physician Ophthalmology 02/22/24 Ubaldo Dubose MD [address] [place] [address] Referring Physician Pulmonary Disease 02/22/24 Valdez Castro MD [address] [place] [address] [place] [address] Referring Physician Pediatric Pulmonology 02/22/24 Flex Ramos MD [address] [place] [phone] Referring Physician Gastroenterology 02/22/24 Judit Lora MD [address] [place] [address] Referring Physician Cardiology 02/22/24 Pulp Grinder Feeder Relationship Specialty Start Date End Date Jamal Alvarez DO [address] [facility] [address] [place] [address] PCP - General Internal Medicine 03/13/23 Saul Abdalla, [address] [place] [address] Referring Physician Ophthalmology 02/22/24 Ubaldo Dubose MD [address] [place] [address] Referring Physician Pulmonary Disease 02/22/24 Valdez Castro MD [address] [facility] [address] [place] [address] Referring Physician Pediatric Pulmonology 02/22/24 Flex Ramos MD [address] [place] [phone] Referring Physician Gastroenterology 02/22/24 Judit Lora MD [address] [place] [address] [address] [place] [address] Referring Physician Cardiology 02/22/24 Pulp Grinder Feeder Relationship Specialty Start Date End Date Jamal Alvarez DO [address] [facility] [address] [place] [address] PCP - General Internal Medicine 03/13/23 Saul Abdalla DO [address] [facility] [address] [place] [address] Referring Physician Ophthalmology 02/22/24 Ubaldo Dubose MD [address] [place] [address] Referring Physician Pulmonary Disease 02/22/24 Valdez Castro MD [address] [facility] [address] [place] [address] Referring Physician Pediatric Pulmonology 02/22/24 Flex Ramos MD [address] [place] [address] [address] [place] [phone] Referring Physician Gastroenterology 02/22/24 Judit Lora MD [address] [place] [address] [address] [place] [address] Referring Physician Cardiology 02/22/24 Team Status: Inactive Member Role Status Dates Jamal Alvarez DO Primary Care Provider Active Start: November 20, 2024 End: November 20, 2024 Valdez Castro MD Attending Provider Active S tart: November 20, 2024 End: November 20, 2024 Pulp Grinder Feeder Relationship Specialty Start Date End Date Jamal Alvarez DO [address] [facility] [address] [place] [address] PCP - General Internal Medicine 12/25/23 Pulp Grinder Feeder Relationship Specialty Start Date End Date Jamal Alvarez DO [address] [facility] [address] [place] [address] PCP - General Internal Medicine 03/13/23 Saul Abdalla DO [address] [place] [address] 300 [place] [address] Referring Physician Ophthalmology 02/22/24 Ubaldo Dubose MD [address] [place] [address] Referring Physician Pulmonary Disease 02/22/24 Valdez Castro MD [address] [facility] [address] [place] [address] Referring Physician Pediatric Pulmonology 02/22/24 Flex Ramos MD [address] [phone] Referring Physician Gastroenterology 02/22/24 Judit Lora MD [address] [facility] [place] [address] Referring Physician Cardiology 02/22/24 Pulp Grinder Feeder Relationship Specialty Start Date End Date Jamal Alvarez DO [address] [place] [address] PCP - General Internal Medicine 03/13/23 Saul Abdalla DO [address] [place], [place] [address] [address] [place] [address] Referring Physician Ophthalmology 02/22/24 Ubaldo Dubose MD [address] [place] [address] Referring Physician Pulmonary Disease 02/22/24 Valdez Castro MD [address] [facility] [address] [place] [address] Referring Physician Pediatric Pulmonology 02/22/24 Flex Ramos MD [address] [phone] Referring Physician Gastroenterology 02/22/24 Judit Lora MD [address]03 [facility], [facility] [address] [place] [address] Referring Physician Cardiology 02/22/24 Team Status: Inactive Member Role Status Dates Jamal Alvarez DO Primary Care Provide r, Attending Provider Active Start: February 06, 2025 End: February 06, 2025 Valdez Castro MD Other Provider Active Start : February 06, 2025 End: February 06, 2025 Pulp Grinder Feeder Relationship Specialty Start Date End Date Jamal Alvarez DO [address] [place] [address] PCP - General Internal Medicine 03/13/23 Saul Abdalla DO [address] [place] [address] Referring Physician Ophthalmology 02/22/24 Ubaldo Dubose MD [address] [place] [address] Referring Physician Pulmonary Disease 02/22/24 Valdez Castro MD [address] [place] [address] Referring Physician Pediatric Pulmonology 02/22/24 Flex Ramos MD 703 [facility] [address] [place] [phone] Referring Physician Gastroenterology 02/22/24 Judit Lora MD [facility] [facility], [address] [place] [address] Referring Physician Cardiology 02/22/24 Pulp Grinder Feeder Relationship Specialty Start Date End Date Jamal Alvarez DO [address] [place] [address] PCP - General Internal Medicine 03/13/23 Saul Abdalla DO [address] [place] [address] Referring Physician Ophthalmology 02/22/24 Ubaldo Dubose MD [address] [place] [address] [place], [place] [address] Referring Physician Pulmonary Disease 02/22/24 Valdez Castro MD [address] [place] [address] Referring Physician Pediatric Pulmonology 02/22/24 Flex Ramos MD [address] [place] [address] Referring Physician Gastroenterology 02/22/24 Judit Lora MD [address] [facility], [address] [place] [address] Referring Physician Cardiology 02/22/24 Pulp Grinder Feeder Relationship Specialty Start Date End Date Jamal Alvarez DO [address] [facility] [address] [place] [address] PCP - General Internal Medicine 03/13/23 Saul Abdalla DO [address] [place] [address] Referring Physician Ophthalmology 02/22/24 Ubaldo Dubose MD [address] [place] [address] Referring Physician Pulmonary Disease 02/22/24 Valdez Castro MD [address] [place] [address] Referring Physician Pediatric Pulmonology 02/22/24 Flex Ramos MD [address] [place] [address] Referring Physician Gastroenterology 02/22/24 Judit Lora MD [address] [place] [address] Referring Physician Cardiology 02/22/24 Team Status: Inactive Member Role Status Dates Jamal Alvarez DO Attending Provider Active St art: February 25, 2025 End: February 25, 2025 Pulp Grinder Feeder Relationship Specialty Start Date End Date Jamal Alvarez DO [address] [place] [address] PCP - General Internal Medicine 03/13/23 Saul Abdalla DO [address] [place] [address] Referring Physician Ophthalmology 02/22/24 Ubaldo Dubose MD [address] [place] [address] Referring Physician Pulmonary Disease 02/22/24 Valdez Castro MD [address] [place] [address] Referring Physician Pediatric Pulmonology 02/22/24 Flex Ramos MD [address] [place] [address] Referring Physician Gastroenterology 02/22/24 Judit Lora MD [address] [place] [address] Referring Physician Cardiology 02/22/24 Team Status: Active [...] Provider Active Sta rt: March 14, 2025 Pulp Grinder Feeder Relationship Specialty Start Date End Date Jamal Alvarez DO [address] [place] [address] PCP - General Internal Medicine 03/13/23 Saul Abdalla DO [address] [place] [address] Referring Physician Ophthalmology 02/22/24 Ubaldo Dubose MD [address] [place] [address] Referring Physician Pulmonary Disease 02/22/24 Valdez Castro MD [address] [place] [address] Referring Physician Pediatric Pulmonology 02/22/24 Flex Ramos MD [address] [place] [address] Referring Physician Gastroenterology 02/22/24 Judit Lora MD [address] [facility] [address] [place] [address] Referring Physician Cardiology 02/22/24 Pulp Grinder Feeder Relationship Specialty Start Date End Date Jamal Alvarez DO [address] [place] [address] PCP - General Internal Medicine 03/13/23 Saul Abdalla DO [address] [place], [place] [address] [place] [address] Referring Physician Ophthalmology 02/22/24 Ubaldo Dubose MD [address] [place] [address] Referring Physician Pulmonary Disease 02/22/24 Valdez Castro MD [address] [place] [address] Referring Physician Pediatric Pulmonology 02/22/24 Flex Ramos MD [address] [facility] [address] [place] [address] Referring Physician Gastroenterology 02/22/24 Judit Lora MD [address] [facility] [address] [place] [address] Referring Physician Cardiology 02/22/24 Pulp Grinder Feeder Relationship Specialty Start Date End Date Jamal Alvarez DO [address] [facility] [address] [place] [address] PCP - General Internal Medicine 03/13/23 Saul Abdalla DO [facility] [address] [place] [address] Referring Physician Ophthalmology 02/22/24 Ubaldo Dubose MD [address] [place] [address] Referring Physician Pulmonary Disease 02/22/24 Valdez Castro MD [address] [place] [address] Referring Physician Pediatric Pulmonology 02/22/24 Flex Ramos MD [address] [place], [place] [address] Referring Physician Gastroenterology 02/22/24 Judit Lora MD [address] [facility] [address] [place] [address] Referring Physician Cardiology 02/22/24 Team Status: Inactive [...] May 07, 2025 End: May 07, 2025 Pulp Grinder Feeder Relationship Specialty Start Date End Date Jamal Alvarez DO [address] [place] [address] PCP - General Internal Medicine 03/13/23 Saul Abdalla DO [address] [place], [place] [address] [address] [place] [address] Referring Physician Ophthalmology 02/22/24 Ubaldo Dubose MD [address] [place] [address] Referring Physician Pulmonary Disease 02/22/24 Valdez Castro MD [address] [place] [address] Referring Physician Pediatric Pulmonology 02/22/24 Flex Ramos MD [address] [place] [address] Referring Physician Gastroenterology 02/22/24 Judit Lora MD [address] [place] [address] Referring Physician Cardiology 02/22/24 Pulp Grinder Feeder Relationship Specialty Start Date End Date Jamal Alvarez DO [address] [place] [address] PCP - General Internal Medicine 03/13/23 Saul Abdalla, [address] [place] [address] Referring Physician Ophthalmology 02/22/24 Ubaldo Dubose MD [address] [place] [address] Referring Physician Pulmonary Disease 02/22/24 Valdez Castro MD [address] [place] [address] Referring Physician Pediatric Pulmonology 02/22/24 Flex Ramos MD [address] [place] [address] Referring Physician Gastroenterology 02/22/24 Judit Lora MD [address] [facility] [address] [place] [address] Referring Physician Cardiology 02/22/24 Pulp Grinder Feeder Relationship Specialty Start Date End Date Jamal Alvarez DO [address] [facility] [address] [place] [address] PCP - General Internal Medicine 03/13/23 Saul Abdalla DO [address] [place] [address] Referring Physician Ophthalmology 02/22/24 Ubaldo Dubose MD [address] [place] [address] Referring Physician Pulmonary Disease 02/22/24 Valdez Castro MD [address] [place] [address] Referring Physician Pediatric Pulmonology 02/22/24 Flex Ramos MD [address] [place] [address] Referring Physician Gastroenterology 02/22/24 Judit Lora MD [address] [facility] [place] [address] Referring Physician Cardiology 02/22/24 Pulp Grinder Feeder Relationship Specialty Start Date End Date Vimal Burton MD [address] [place] [address] PCP - General Internal Medicine 05/26/25 Saul Abdalla DO [address] [place] [address] Referring Physician Ophthalmology 02/22/24 Ubaldo Dubose MD [address] [place] [address] Referring Physician Pulmonary Disease 02/22/24 Valdez Castro MD [address] [place] [address] Referring Physician Pediatric Pulmonology 02/22/24 Flex Ramos MD [address] [place] [address] Referring Physician Gastroenterology 02/22/24 Judit Lora MD [address] [facility] [address] [place] [address] Referring Physician Cardiology 02/22/24 Team Status: Inactive Member Role Status Dates Jamal Alvarez DO Primary Care Provider Active Start: May 28, 2025 End: May 28, 2025 Flex Ramos MD Attending Provider Active Start: May 28, 2025 End: May 28, 2025 Pulp Grinder Feeder Relationship Specialty Start Date End Date Jamal Alvarez DO [address] [place] [address] PCP - General Internal Medicine 12/25/23 Pulp Grinder Feeder Relationship Specialty Start Date End Date Jamal Alvarez DO [address] [place] [address] PCP - General Internal Medicine 12/25/23 06/09/25 Pulp Grinder Feeder Relationship Specialty Start Date End Date Vimal Burton MD [address] [place] [address] PCP - General Internal Medicine 06/10/25 Jose Luis Lockhart APRN [address] [place] [address] Family Medicine 06/16/25 Pulp Grinder Feeder Relationship Specialty Start Date End Date Vimal Burton MD [address] [place] [address] PCP - General Internal Medicine 05/26/25 Saul Abdalla DO [address] [place] [address] Referring Physician Ophthalmology 02/22/24 Ubaldo Dubose MD [address] [place] [address] Referring Physician Pulmonary Disease 02/22/24 Valdez Castro MD [address] [place] [address] Referring Physician Pediatric Pulmonology 02/22/24 Flex Ramos MD [address] [place] [address] Referring Physician Gastroenterology 02/22/24 Judit Lora MD [address] [facility] [address], [address] [place] [address] Referring Physician Cardiology 02/22/24 Pulp Grinder Feeder Relationship Specialty Start Date End Date Vimal Burton MD [address] [place] [address] PCP - General Internal Medicine 06/10/25 Jose Luis Lockhart APRN [address] [place] [address] Family Medicine 06/16/25 Pulp Grinder Feeder Relationship Specialty Start Date End Date Vimal Burton MD [address] [place] [address] PCP - General Internal Medicine 06/10/25 Jose Luis Lockhart APRN [address] [place] [address] Family Medicine 06/16/25 Pulp Grinder Feeder Relationship Specialty Start Date End Date Vimal Burton MD [address] [place] [address] PCP - General Internal Medicine 06/10/25 Jose Luis Lockhart APRN [address] [place] [address] [facility] 06/16/25 Pulp Grinder Feeder Relationship Specialty Start Date End Date Vimal Burton MD [address] [place] [address] PCP - General Internal Medicine 06/10/25 Jose Luis Lockhart APRN [address] [place] [address] [facility] 06/16/25 Pulp Grinder Feeder Relationship Specialty Start Date End Date Vimal Burton MD [address] [place], [facility] PCP - General Internal Medicine 06/10/25 Jose Luis Lockhart APRN [address] [place] [address] [facility] 06/16/25 Pulp Grinder Feeder Relationship Specialty Start Date End Date Vimal Burton MD [address] [place] [address] PCP - General Internal Medicine 05/26/25 Saul Abdalla DO [address] [place] [address] Referring Physician Ophthalmology 02/22/24 Ubaldo Dubose MD [address] [place] [address] Referring Physician Pulmonary Disease 02/22/24 Valdez Castro MD [address] [place] [id number] Referring Physician Pediatric Pulmonology 02/22/24 Flex Ramos MD [address] [place] [id number] Referring Physician Gastroenterology 02/22/24 Judit Lora MD 703 [facility], [place] [id number] Referring Physician Cardiology 02/22/24 Reason for Visit (unrecogniz ed section and content) Reason Comments Spirometry Specialty Diagnoses / Procedures Referred By Contac t Referred To Contact [facility] Diagnoses ILD (interstitial lung disease) (HCC) Shortness of breath Procedures SPIROMETRY WITH DILATOR IF OBSTRUCTED BRNCDILAT RSPSE SPMTRY PRE&POST-BRNCDILAT ADMN Dee Leal APRN.[employer] CONSULTANT [address] [address] [address] Referral ID Status Reason Start Date Expiration Date V isits Requested Visits Authorized [id number] Closed Auto-Generate d Referral 12/11/2023 01/09/2025 1 1 Specialty Diagnoses / Procedures Referred By Contac t Referred To Contact [facility] Diagnoses ILD (interstitial lung disease) (HCC) Shortness of breath Procedures LUNG DIFFUSION CAPACITY (DLCO) DIFFUSING CAPACITY Dee Leal APRN.[employer] BW CONSULTANT [address] [address] Referral ID Status Reason Start Date Expiration Date V isits Requested Visits Authorized [id number] Closed Auto-Generate d Referral 12/11/2023 01/09/2025 1 1 Reason Comments New Reason Comments Received Outside Medical Records Reason Comments Home nebulizer order Reason Comments Appointment Reason Comments Follow Up Reason Comments Establish Care Sob, fatigue,weaknes s Specialty Diagnoses / Procedures Referred By Contac t Referred To Contact Diagnoses Shortness of breath Procedures ECG 12 Lead Judit Lora MD [address] [facility] [address] [place] [address] Referral ID Status Reason Start Date Expiration Date V isits Requested Visits Authorized [id number] Authorized 03/10/2024 03/10/2025 1 1 Reason Comments Future Appointment NEW PT, [place], ANY (STO JIC? - PT PREF [place]) Specialty Diagnoses / Procedures Referred By Contac t Referred To Contact [facility] Diagnoses Bronchiectasis without complication (HCC) Procedures SPIROMETRY BASELINE ONLY SPMTRY W/VC EXPIRATORY MIRIAM W/WO MXML VOL VNTJ Ubaldo Dubose MD [address] [place] [address] [facility] [place] [address] [place] [address] Referral ID Status Reason Start Date Expiration Date V isits Requested Visits Authorized [id number] Closed Auto-Generate d Referral 12/28/2023 01/26/2025 1 1 Specialty Diagnoses / Procedures Referred By Contac t Referred To Contact [facility] Diagnoses Bronchiectasis without complication (HCC) Procedures LUNG DIFFUSION CAPACITY (DLCO) DIFFUSING CAPACITY Ubaldo Dubose MD [address] [place] [address] Res[facility] [place] [place] [address] Referral ID Status Reason Start Date Expiration Date V isits Requested Visits Authorized [id number] Closed Auto-Generate d Referral 12/28/2023 01/26/2025 1 1 Reason Comments Cough Reason Comments Certifcate of Medical Necessity Reason Comments Radiology [place] Specialty Diagnoses / Procedures Referred By Contac t Referred To Contact CT IMAGING Diagnoses Interstitial pulmonary disease (HCC) Procedures CT CHEST WO IVCON DIAGNOSTIC COMPUTED TOMOGRAPHY THORAX W/O CNTRST Dee Leal, CONSULTING PROJECT DIRECTOR.[employer] BW CONSULTANT [address] [address] [place] [address] Referral ID Status Reason Start Date Expiration Date V isits Requested Visits Authorized [id number] Closed Auto-Generate d Referral 12/11/2023 01/09/2025 1 [...] month follow up Pt is being seen tobrant reese for her 6 month follow up and managment of her chronic conditions. Pt had lab work done in preparations for todays visit, results and recommendations will be reviewed with them. Reason Comments Hospital Follow-up Pt is being seen camille reese to follow up on her stay at [facility] for acute bronchiectasis exacerbation due to human metapneumovirus from 03/14-03/15. Reason Comments Ear Problem CT [facility] 05/03/25 Reason Comments Hospital Follow-up Reason Comments Abdominal Pain Diarrhea Reason Onset Date Comments Refill Request 05/29/2025 Reason Comments Establish Care Gallbladder, had CT at [facility] in [place] Reason Comments Results CT abdomen/pelvis in chart. Back Pain Xray of back done 04/07 in chart. Pt is still complaining of back pain of middle to lower back. Extremity Weakness Left leg keeps wanti ng to go out on her and has the feeling of falling asleep Reason Comments Preparations For Surgery PACC Reason Comments Ear Problem Reason Comments Patient Question Appointment Reason Comments Anesthesia Consult FOR RECORDS PERTAINING TO PATIENTS WHO ARE [...] BE BASED ON THE PRIMARY CLINICAL RECORDS. [employer] provides no warranty or guarantee of the accuracy or completeness of information in this document.
--- NOTE | 2025-07-29 18:45 | PC.NURSE ---
two attempts made to complete enema, pt physically punching and grabbing staff to refuse enema, pt daughter states she will attempt a fleets
[2025-07-29] MEDS: MAGNESIUM CITRATE 296 ML SOLUTION PO (18:56)
[2025-07-29] MEDS: BISACODYL 5 MG TABLET PO (18:56)
== END 2025-07-29 18:59 | disposition home or self-care (01) ==
PROVIDERS: Emergency Provider Emergency Medicine
DX: K59.00 Constipation, unspecified (principal); Z90.49 Acquired absence of other specified parts of digestive tract; F03.90 Unspecified dementia, unspecified severity, without behavioral disturbance, psychotic disturbance, mood disturbance, and anxiety; Z87.891 Personal history of nicotine dependence
CPT/HCPCS: 74018; 99283

== ENCOUNTER 2025-08-31 13:57 | Outpatient (OUT) | payer MEDICARE, SELFPAY ==
--- OUTSIDE RECORDS SUMMARY | 2025-08-21 14:00 | XMS_ITS | Encounter Summary ---
Author Organization [facility] Address [address] [place] [address] Care Team Providers Care Correspondence School Instructor Name Role Phone Saul Abdalla DO Unavailable [phone] [facility] Unavailable [phone] Valdez Castro MD Unavailable [phone] Flex Ramos MD Unavailable Judit Lora MD Unavailable Gildardo Yanez MD Primary Care Provider [phone] Reason for Referral * Consultation (Routine) - AuthorizedSpecialtyDiagnoses / ProceduresReferred By ContactReferred To ContactPain Medicine Diagnoses Lumbar radiculopathy, right Procedures IA OFFICE/OUTPATIENT [facility] 60 MINUTES Christal Herndon PA [address] [facility] [address] [place] [address] Phone: tel: fax: Armand Lara MD [facility] Referrals ONLY fax: Referral IDStatusReasonStart DateExpiration DateVisits RequestedVisits [id number] Consult and Treat / * (Urgent) - ClosedSpecialtyDiagnoses / ProceduresReferred By ContactReferred To ContactRadiology Diagnoses Pain and swelling of lower leg, right Procedures Vascular US lower extremity venous duplex right Christal Herndon PA [address] [place] [address] Phone: tel: fax: Referral IDStatusReasonStart DateExpiration DateVisits RequestedVisits [id number]/17/20254/ Reason for Visit * ReasonCommentsLeg SwellingPt here today for bruising, swelling and knots in Rt lower leg. Pt had a cholecystectomy in Jul. Pt denies pain in the area with bruising and swelling, but is having pain in right hip radiating downboth legs. Pt is on Plavix Encounter Details DateTypeDepartmentCare Team (Latest Contact Info)Utsupljtmsp48/17/2025 2:00 PM EDTOffice Visit [facility] [place] [address] [place] [address] Christal Herndon PA [address] [place] [address] Pain and swelling of lower leg, right (Primary Dx); Lumbar radiculopathy, right; Seasonal allergies Social History Tobacco UseTypesPacks/DayYears UsedDateSmoking Tobacco: FormerCigarettesQuit: 11/05/1979Passive Smoke Exposure: PastSmokeless Tobacco: NeverAlcohol Use Standard Drinks/WeekCommentsNever0 (1 standard drink = 0.6 oz pure alcohol) caffeine: 1-2 cups per day teaAUDIT-CAnswerDate RecordedQ1: How often do you have a drink containing alcohol?Never04/22/2024Q2: How many drinks containing alcohol do you have on a typical day when you are drinking?Patient does not drink04/22/2024Q3: How often do you have six or more drinks on one occasion? Never04/22/2024HQ-2AnswerDate RecordedPatient Health Questionnaire-2 Score0 4CommentsUnknownSex and Gender InformationValueDate RecordedSex Assigned at BirthNot on fileLegal LppBvdrfp55/15/2023 6:36 PM EDTGender Identity Not on fileSexual OrientationNot on filedocumented as of this encounter Last Filed Vital Signs Vital SignReadingTime TakenCommentsBlood Kyqbdekh442/6608/21/2025 2:14 PM EDT Jlpct5092 2:14 PM EDTTemperature--Respiratory Rate--Oxygen Eecnvhgwnr30% 08/21/2025 2:14 PM EDTInhaled Oxygen Concentration--Zdnwfq45.1 kg (128 lb) 08/21/2025 2:14 PM DNWAmbkkx514.8 cm (4' 9 )08/21/2025 2:14 PM EDTBody Mass Index27. 2:14 PM EDTdocumented in this encounter Progress Notes * SPIKE Souza - 08/21/2025 2:00 PM EDT Karuna Garcia is a 80 y.o. female presents with chief complaint of bruising, swelling and knots in RLE. HPI: History of Present Illness The patient presents for evaluation of leg knots, radiculopathy, and allergies. She has been experiencing some bruising on her right calf/lower leg since her cholecystectomy on 07/24/2025, which was performed while she was off Plavix. The bruising continued even after resuming Plavix. She reports the presence of soft, knot-like formations in her legs, which she initially attributed to her recliner. She does not report any shortness of breath. She has been dealing with right sided lumbar radiculopathy, characterized by sharp, shooting pains in her lower back. The pain is bilateral but more severe on one side. She has a history of successful treatment with low-dose Lyrica for this condition and is requesting some. She also has allergies and breathing issues due to bronchiectasis. Her allergies have previously led to infections, making her more susceptible to pneumonia. She has been on Kelsey for an extended period, but it has not provided significant relief. Flonase has been somewhat effective, but she is not fond of it. She was taken off Zyrtec due to increased fatigue and constipation. She has previously tried Claritin and Zyrtec, but they caused excessive tiredness. She has used Singulair 5 mg chewable in the past for her breathing issues and allergies and her daughter is requesting this. PAST SURGICAL HISTORY: - Cholecystectomy on 07/24/2025 I have reviewed and reconciled the history and medication list with the patient today. HISTORIES: PAST MEDICAL HISTORY: Medical History[1] SURGICAL HISTORY: Surgical History[2] SOCIAL HISTORY: Social History[3] Depression: Not at risk (02/22/2024) PHQ-2 PHQ-2 Score: 0 FAMILY HISTORY: Family History[4] MEDICATIONS: Current Outpatient Medications Medication Instructions albuterol [...] MG/DOSE) 1 mg, Subcutaneous, Every 7 days Rexulti 1 mg, Oral, Daily simvastatin (ZOCOR) 20 mg, Oral, Nightly sodium chloride 3 % nebulizer solution TRUEplus Lancets 33G [facility] USE TO TEST ONCE DAILY EVERY MORNING. ALLERGIES: Allergies[5] PHYSICAL EXAM: Visit Vitals Smoking Status Former BP Readings from Last 3 Encounters: 06/25/25 108/60 05/28/25 118/72 05/20/25 107/54 Wt Readings from Last 3 Encounters: 06/25/25 128 lb 14.4 oz 05/28/25 130 lb 05/20/25 128 lb Physical Exam General Examination: alert, oriented, normal affect, well-appearing, in no acute distress, well developed, well nourished. Head: normocephalic, atraumatic Eyes: sclera non-icteric Heart: regular rate and rhythm, S1, S2 normal Lungs: clear to auscultation bilaterally. No wheezes, rales, rhonchi. Extremities: right calf no edema, but a few bruises are noted, about 3 palpable pea size nodules noted as well, no cyanosis. DP 2+ rt Psych: alert, oriented, cognitive function intact, cooperative with exam. Results ASSESSMENT AND PLAN: Assessment & Plan 1. Pain and swelling of lower leg, right - The patient has been experiencing knots in the leg, which are soft and palpable with bruising although the two are independent of each other. - An ultrasound of the leg will be conducted today to further investigate the cause of the knots. - verbal from Kelsie negative for DVT, knots may be lipomas. 2. Right sided Lumbar Radiculopathy: - The patient has been experiencing shooting sharp pains in the lower back, causing balance issues. - A prescription for Lyrica 25 mg has been issued, with a 90-day supply sent to the pharmacy. A referral to Dr. Lara for potential steroid injection or nerve ablation has been made. 3. Allergies: - The patient has been experiencing allergy symptoms not well controlled by Kelsey. Reports doesn't tolerate claritin or zyrtec, did well on singulair in the past and requesting this. - A consultation with Dr. Yanez regarding the use of Singulair for allergy management will be arranged. [1] Past Medical History: Diagnosis Date Age-related osteoporosis without current pathological fracture 08/20/2023 Allergic rhinitis due to pollen Ankylosing spondylitis lumbar region ([facility]) 04/08/2025 Asthma ([facility]) Bronchiectasis ([facility]) 03/10/2024 Chronic obstructive pulmonary disease, unspecified ([facility]) 05/19/2025 Documented on 02/19/2023 by COURTNEY LOCKHART 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 ([facility]) 08/20/2023 DISH (diffuse idiopathic skeletal hyperostosis) 02/25/2024 Female stress incontinence Former smoker 03/10/2024 Gastroesophageal reflux disease without esophagitis 08/20/2023 Hallux valgus (acquired), left foot Hallux valgus (acquired), right foot Hypothyroidism Intestinal disaccharidase deficiencies and disaccharide malabsorption NSTEMI (non-ST elevated myocardial infarction) ([facility]) 05/19/2025 OAB (overactive bladder) 05/27/2025 Overactive bladder Polyneuropathy associated with underlying disease ([facility]) 05/27/2025 Prediabetes 06/25/2025 Presence of neurostimulator 05/19/2025 Pulmonary hypertension ([facility]) 06/12/2024 Pure hypercholesterolemia 05/27/2025 Seizure disorder ([facility]) 04/24/2024 Syncope 05/19/2025 Transient cerebral ischemia, unspecified type Traumatic brain injury with loss of consciousness ([facility]) 04/24/2024 Type 2 diabetes mellitus with diabetic neuropathy ([facility]) 06/25/2025 Type 2 diabetes mellitus with peripheral neuropathy ([facility]) 08/20/2023 [2] Past Surgical History: Procedure Laterality Date ADENOIDECTOMY COLOGUARD 01/10/2019 negative COLONOSCOPY 01/30/2007 EGD 01/30/2007 HUMERUS FRACTURE SURGERY Left HYSTEROSCOPY W/ POLYPECTOMY 01/09/2023 D & C polypectomy, Interstim explant INTERSTIM PNE 2014 INTERSTIM PNE 10/25/2021 Complete interstim implantation TONSILLECTOMY [3] Social History Tobacco Use Smoking status: Former Current packs/day: 0.00 Types: Cigarettes Quit date: 11/05/1979 Years since quittin.8 Passive exposure: Past Smokeless tobacco: Never Substance Use Topics Alcohol use: Never Comment: caffeine: 1-2 cups per day tea Drug use: Never [4] Family History Problem Relation Name Age of Onset Schizophrenia Mother Heart disease Father Stroke Sister Other (heart concerns) Brother [5] Allergies Allergen Reactions Codeine Other Reaction(s): unknown Midazolam Hallucinations Other Reaction(s): Confusion, Mental Status Change Propoxyphene Other Reaction(s): unknown Latex Rash Other Rash Penicillins Rash Other Reaction(s): unknown Sulfa Antibiotics Rash Other Reaction(s): unknown documented in this encounter Plan of Treatment DateTypeDepartmentCare Team (Latest Contact Info)Wikipphqwau30/28/2025 2:45 PM EDTProcedure Visit [facility] [address] [place] [address] Everton Garcia DPM [address] [place] [address] 10/27/2025 3:30 PM ESTAncillary Procedure [facility] [address] [place] [address] 03/11/2026 4:00 PM EDTOffice Visit [facility] [place] [facility] [address] [place] [address] NameTypePriorityAssociated DiagnosesOrder ScheduleAmbulatory referral to Pain MedicineOutpatient ReferralRoutine Lumbar radiculopathy, right Expected: 08/21/2025 (Approximate), Expires: 02/19/2026documented as of this encounter Procedures Procedure NamePriorityDate/TimeAssociated DiagnosisCommentsVASC US LOWER EXTREMITY VENOUS DUPLEX HEXSRTDGB32/17/2025 3:16 PM EDT Pain and swelling of lower leg, right documented in this encounter Results * Vascular US lower extremity venous duplex right (08/21/2025 3:16 PM EDT) Anatomical RegionLateralityModalityLower ExtremitiesUltrasoundSpecimen (Source)Anatomical Location / LateralityCollection Method / VolumeCollection TimeReceived Time08/21/2025 3:22 PM EDT Impressions 08/21/2025 3:25 PM EDT No acute DVT of the right leg. Lesions at the area of lump as discussed. Recommend continued clinical follow-up to ensure resolution/stability. ELECTRONICALLY SIGNED BY: Baron Montenegro MD Narrative 08/21/2025 3:25 PM EDT HISTORY: Right lower leg pain. COMPARISON: None. TECHNIQUE: The right lower extremity veins were evaluated with color Doppler, grayscale imaging, and spectral analysis while using compression and augmentation when possible. RESULT: Evaluation of the right lower extremity veins from the thigh to the calf shows normal phasic flow, and normal augmentation of the Doppler signal, and normal compression of the deep veins. There is nosonographic evidence for acute deep venous thrombosis from the right groin to the popliteal region.There is no sonographic evidence for acute deep vein thrombosis in the right calf veins. No evidence for SVT. Limited sonographic evaluation of the areas of lump was performed. There is a 1.4 cm echogenic lesion within the superficial subcutaneous tissues at one of the areas of lump. Additionally there is another echogenic lesion measuring 2.0 cm at another area of lump in the superficial subcutaneous tissues, with an internal hypoechoic area. These are overall nonspecific and not well evaluated sonographically. Differential includes infectious/inflammatory etiologies, lipoma, hematoma/seroma, among other etiologies. Recommend continued clinical follow-up to ensure resolution/stability. Procedure Note Baron Montenegro MD - 08/21/2025 HISTORY: Right lower leg pain. COMPARISON: None. TECHNIQUE: The right lower extremity veins were evaluated with colorDoppler, grayscale imaging, and spectral analysis while using compressionand augmentation when possible. RESULT: Evaluation of the right lower extremity veins from the thigh to the calfshows normal phasic flow, and normal augmentation of the Doppler signal,and normal compression of the deep veins. There is no sonographic evidencefor acute deep venous thrombosis from the right groin to the poplitealregion. There is no sonographic evidence for acute deep vein thrombosis inthe right calf veins. No evidence for SVT. Limited sonographic evaluation of the areas of lump was performed. Thereis a 1.4 cm echogenic lesion within the superficial subcutaneous tissuesat one of the areas of lump. Additionally there is another echogeniclesion measuring 2.0 cm at another area of lump in the superficialsubcutaneous tissues, with an internal hypoechoic area. These are overallnonspecific and not well evaluated sonographically. Differential includesinfectious/inflammatory etiologies, lipoma, hematoma/seroma, among otheretiologies. Recommend continued clinical follow-up to ensureresolution/stability. IMPRESSION: No acute DVT of the right leg. Lesions at the area of lump as discussed. Recommend continued clinicalfollow-up to ensure resolution/stability. ELECTRONICALLY SIGNED BY: Baron Montenegro MD Authorizing ProviderResult TypeResult StatusSummabdelrahman Herndon PAI US PROCEDURES Final Result documented in this encounter Visit Diagnoses Diagnosis Pain and swelling of lower leg, right- Primary Lumbar radiculopathy, right Seasonal allergies Allergic rhinitis, cause unspecified documented in this encounter Additional Health Concerns AssessmentNoted TimePHQ-9 Depression Total Score: 304 2:00 PM EDT documented as of this encounter Care Teams Team MemberRelationshipSpecialtyStart DateEnd Gildardo Yanez MD [address] [place] [address] PCP - GeneralInternal Medicine05/26/25 Saul Abdalla DO [address] [place] [address] [address] [place] [address] Referring PhysicianOphthalmology02/22/24 Ubaldo Dubose MD [address] [place] [address] Referring PhysicianPulmonary Disease02/22/24 Valdez Castro MD [address] [place] [address] Referring PhysicianPediatric Pulmonology02/22/24 Flex Ramos MD [address] [place], [place] [id number] Referring PhysicianGastroenterology02/22/24 Judit Lora MD [address] [facility], [facility] [address] [place] [id number] Referring PhysicianCardiology02/22/24documented as of this encounter
--- OUTSIDE RECORDS SUMMARY | 2025-08-21 14:45 | XMS_ITS | Encounter Summary ---
Author Organization [facility] Address [address] [place] [address] Care Team Providers Care Tunnel Kiln Operator Name Role Phone Saul Abdalla DO Unavailable [phone] Ubaldo Dubose MD Unavailable Valdez Castro MD Unavailable [phone] Flex Ramos MD Unavailable Judit Lora MD Unavailable Gildardo Yanez MD Primary Care Provider [phone] Reason for Visit * (Urgent) - ClosedSpecialtyDiagnoses / ProceduresReferred By ContactReferred To ContactRadiology Diagnoses Pain and swelling of lower leg, right Procedures Vascular US lower extremity venous duplex right Workman, Christal Kevin, PA [address] [place] [address] Phone: tel: fax: Referral IDStatusReasonStart DateExpiration DateVisits RequestedVisits [id number]/17/20254/ Encounter Details DateTypeDepartmentCare Team (Latest Contact Info)Ilzmnixodss34/17/2025 2:45 PM EDTAncillary Procedure [facility] [place] [facility] [address] [place] [address] Social History Tobacco UseTypesPacks/DayYears UsedDateSmoking Tobacco: FormerCigarettesQuit: [...] one occasion? Never04/22/2024HQ-2AnswerDate RecordedPatient Health Questionnaire-2 Score0 02/22/2024CommentsUnknownSex and Gender InformationValueDate RecordedSex Assigned at BirthNot on fileLegal CipLttvoq03/15/2023 6:36 PM EDTGender Identity Not on fileSexual OrientationNot on filedocumented as of this encounter Plan of Treatment DateTypeDepartmentCare Team (Latest Contact Info)Ikddzxzkrgr70/28/2025 2:45 PM EDTProcedure Visit [facility] [address] [place] [address] Ever[place] Garcia, DPM [address] [place] [address] 10/27/2025 3:30 PM ESTAncillary Procedure [facility] [address] [place] [address] 03/11/2026 4:00 PM EDTOffice Visit [facility] [address] [place] [address] documented as of this encounter Procedures Procedure NamePriorityDate/TimeAssociated DiagnosisCommentsVASC US LOWER EXTREMITY VENOUS DUPLEX DDXZOUEKR55/17/2025 3:16 PM EDT Pain and swelling of [...] filedocumented in this encounter Additional Health Concerns AssessmentNoted TimePHQ-9 Depression Total Score: 2:00 PM EDT documented as of this encounter Care Teams Team MemberRelationshipSpecialtyStart DateEnd Gildardo Yanez MD [address] [place] [address] PCP - GeneralInternal Medicine05/26/25 Saul Abdalla DO [address] [facility] [address] [place] [address] Referring PhysicianOphthalmology02/22/24 Ubaldo Dubose MD [address] [place] [address] Referring PhysicianPulmonary Disease02/22/24 Valdez [place] MD [address] [place] [address] Referring PhysicianPediatric Pulmonology02/22/24 Flex Ramos MD [address] [place] [address] Referring PhysicianGastroenterology02/22/24 Judit Lora MD [address] [facility] [address], [address] [place] [address] Referring PhysicianCardiology02/22/24documented as of this encounter
--- OUTSIDE RECORDS SUMMARY | 2025-08-31 14:00 | XMS_ITS | Encounter Summary ---
Author Organization [facility] Address [address] [place] [address] Care Team Providers Care Time Clock Mechanic Name Role Phone Saul Abdalla DO Unavailable Ubaldo Dubose MD Unavailable Valdez Castro MD Unavailable [phone] Flex Ramos MD Unavailable Judit Lora MD Unavailable Gildardo Yanez MD Primary Care Provider Encounter Details DateTypeDepartmentCare Team (Latest Contact Info)Wpnigqyqorq50/17/2025Results Follow-Up [facility] [address] [facility] [address] [place] [address] Christal Herndon PA [address] [facility] [address] [place] [address] Vascular US lower extremity venous duplex right Social History Tobacco UseTypesPacks/DayYears UsedDateSmoking Tobacco: FormerCigarettesQuit: 11/05/1979Passive Smoke Exposure: PastSmokeless Tobacco: NeverAlcohol Use Standard Drinks/WeekCommentsNever0 (1 standard drink = 0.6 oz pure alcohol) caffeine: 1-2 cups per day teaAUDIT-CAnswerDate RecordedQ1: How often do you have a drink containing alcohol?Never/Q2: How many drinks containing alcohol do you have on a typical day when you are drinking?Patient does not drink04/22/2024Q3: How often do you have six or more drinks on one occasion? Never4PHQ-2AnswerDate RecordedPatient Health Questionnaire-2 Score0 4CommentsUnknownSex and Gender InformationValueDate RecordedSex Assigned at BirthNot on fileLegal LxqRbadsg34/15/2023 6:36 PM EDTGender Identity Not on fileSexual OrientationNot on filedocumented as of this encounter Plan of Treatment DateTypeDepartmentCare Team (Latest Contact Info)Rqdktaytwwm41/28/2025 2:45 PM EDTProcedure Visit [facility] [place] [facility] [address] [place] [address] [place] Garcia DPM [address] [place] [address] 10/27/2025 3:30 PM ESTAncillary Procedure [facility] [place] [facility] [address] [place] [address] 03/11/2026 4:00 PM EDTOffice Visit [facility] [place] [facility] [address] [place] [address] documented as of this encounter Visit Diagnoses Not on filedocumented in this encounter Additional Health Concerns AssessmentNoted TimePHQ-9 Depression Total Score: 2:00 PM EDT documented as of this encounter Care Teams Team MemberRelationshipSpecialtyStart DateEnd [facility] Gildardo Yanez MD [address] [place] [address] PCP - GeneralInternal Medicine05/26/25 Saul Abdalla DO [address] [place] [address] Referring PhysicianOphthalmology02/22/24 Ubaldo Dubose MD [address] [place] [address] Referring PhysicianPulmonary Disease02/22/24 Valdez [place] MD [address] [place] [address] Referring PhysicianPediatric Pulmonology02/22/24 Flex Ramos MD [address] [place] [address] Referring PhysicianGastroenterology02/22/24 Judit Lora MD 703 [facility] 2, [address] [place] [address] Referring PhysicianCardiology02/22/24documented as of this encounter
--- OUTSIDE RECORDS SUMMARY | 2025-08-31 14:00 | XMS_ITS | Encounter Summary ---
Author Organization [facility] Address [address] [place] [address] Care Team Providers Care Clay Stain Mixer Name Role Phone Saul Abdalla DO Unavailable [phone] Ubaldo Dubose MD Unavailable [phone] Valdez Castro MD Unavailable [phone] Flex Ramos MD Unavailable Judit Lora MD Unavailable Gildardo Yanez MD Primary Care Provider [phone] Encounter Details DateTypeDepartmentCare Team (Latest Contact Info)Mokryfnrpnn49/17/2025Travel Social History Tobacco UseTypesPacks/DayYears UsedDateSmoking Tobacco: FormerCigarettesQuit: [...] InformationValueDate RecordedSex Assigned at BirthNot on fileLegal UgqNpxfyh70/15/2023 6:36 PM EDTGender Identity Not on fileSexual OrientationNot on filedocumented as of this encounter Plan of Treatment DateTypeDepartmentCare Team (Latest Contact Info)Tsoqvoxqvhn14/28/2025 2:45 PM EDTProcedure Visit [facility] [place] [facility] [address] [place] [address] [place] Garcia, DPHerberth [address] [place] [address] 10/27/2025 3:30 PM ESTAncillary Procedure [facility] [place] [facility] [address] [place] [address] 03/11/2026 4:00 PM EDTOffice Visit [facility] [place] [facility] [address] [place] [address] documented as of this encounter Visit Diagnoses Not on filedocumented in this encounter Additional Health Concerns AssessmentNoted TimePHQ-9 Depression Total Score: 2:00 PM EDT documented as of this encounter Care Teams Team MemberRelationshipSpecialtyStart DateEnd Gildardo Yanez MD [address] [place] [address] PCP - GeneralInternal Medicine05/26/25 Saul Abdalla DO [address] [place] [address] Referring PhysicianOphthalmology02/22/24 Ubaldo Dubose MD [address] [place] [address] Referring PhysicianPulmonary Disease02/22/24 Valdez [place] MD [address] [facility] [address] [place] [address] Referring PhysicianPediatric Pulmonology02/22/24 Flex Ramos MD [address] [place] [address] Referring PhysicianGastroenterology02/22/24 Judit Lora MD 703 [facility] 2, [facility] [address] [place] [address] Referring PhysicianCardiology02/22/24documented as of this encounter
--- OUTSIDE RECORDS SUMMARY | 2025-08-31 14:00 | XMS_ITS | Encounter Summary ---
Author Organization [facility] Address [address] [place] [address] Care Team Providers Care Digital Imager Name Role Phone Saul Abdalla DO Unavailable [phone] Ubaldo Dubose MD Unavailable [phone] Valdez Castro MD Unavailable [phone] Flex Ramos MD Unavailable Judit Lora MD Unavailable Gildardo Yanez MD Primary Care Provider [phone] Reason for Referral * (Routine) - AuthorizedSpecialtyDiagnoses / ProceduresReferred By Contact Referred To ContactRadiology Diagnoses Subcutaneous nodule of right lower extremity Procedures Vascular US lower extremity venous duplex right Christal Herndon PA [address] [facility] [address] [place] [address] Phone: tel: fax: Referral IDStatusReasonStart DateExpiration DateVisits RequestedVisits [id number]/[id number]/ Encounter Details DateTypeDepartmentCare Team (Latest Contact Info)Gfytqueefxv23/20/2025Telephone [facility] [address] [facility] [address] [place] [phone] Aixa Ferrell LPN Social History Tobacco UseTypesPacks/DayYears UsedDateSmoking Tobacco: FormerCigarettesQuit: [...] one occasion? Never4PHQ-2AnswerDate RecordedPatient Health Questionnaire-2 Score0 02/22/2024CommentsUnknownSex and Gender InformationValueDate RecordedSex Assigned at BirthNot on fileLegal XxwRjodgx51/15/2023 6:36 PM EDTGender Identity Not on fileSexual OrientationNot on filedocumented as of this encounter Miscellaneous Notes * Telephone Encounter - Aixa Ferrell LPN - 08/24/2025 4:42 PM EDT Spoke to Nadira with results of US. She would like to schedule the F/U in 3 months. Order sent documented in this encounter Plan of Treatment DateTypeDepartmentCare Team (Latest Contact Info)Lrtsxqfxblh08/28/2025 2:45 PM EDTProcedure Visit [facility] [address] [place] [phone] Everton Garcia DPM [address] [place] [address] 10/27/2025 3:30 PM ESTAncillary Procedure [facility] [address] [place] [address] 03/11/2026 4:00 PM EDTOffice Visit [facility] [address] [place] [address] NameTypePriorityAssociated DiagnosesOrder ScheduleVascular US lower extremity venous duplex rightImagingRoutine Subcutaneous nodule of right lower extremity Expected: 11/24/2025, Expires: 08/24/2026documented as of this encounter Visit Diagnoses Diagnosis Subcutaneous nodule of right lower extremity documented in this encounter Additional Health Concerns AssessmentNoted TimePHQ-9 Depression Total Score: 304 2:00 PM EDT documented as of this encounter Care Teams Team MemberRelationshipSpecialtyStart DateEnd Gildardo Yanez MD [address] [facility] [address] [place] [address] PCP - GeneralInternal Medicine05/26/25 Saul Abdalla DO [address] [place], [place] [address] [place] [address] Referring PhysicianOphthalmology02/22/24 Ubaldo Dubose MD [address] [place] [address] Referring PhysicianPulmonary Disease02/22/24 Valdez Castro MD [address] [place] [address] Referring PhysicianPediatric Pulmonology02/22/24 Flex Ramos MD [address] [place] [address] Referring PhysicianGastroenterology02/22/24 Judit Lora MD [address] [facility] [address] [place] [address] Referring PhysicianCardiology02/22/24documented as of this encounter
--- OUTSIDE RECORDS SUMMARY | 2025-08-31 14:01 | XMS_ITS | Encounter Summary ---
Author Organization [facility] Address [address] [place] [address] Care Team Providers Care Sales Effectiveness Manager Name Role Phone Saul Abdalla DO Unavailable Ubaldo Dubose MD Unavailable Valdez Castro MD Unavailable [phone] Flex Ramos MD Unavailable Judit Lora MD Unavailable Gildardo Yanez MD Primary Care Provider [phone] Reason for Visit * ReasonCommentsMed Refill Encounter Details DateTypeDepartmentCare Team (Latest Contact Info)Tjvkinvcqdd42/20/2025Refill [facility] [address] [facility] [address] [place] [address] Jamal Jay DO [address] [facility] [address] [place] [address] Pulmonary fibrosis (HCC) Social History Tobacco UseTypesPacks/DayYears UsedDateSmoking Tobacco: FormerCigarettesQuit: [...] InformationValueDate RecordedSex Assigned at BirthNot on fileLegal MimTzbevz35/15/2023 6:36 PM EDTGender Identity Not on fileSexual OrientationNot on filedocumented as of this encounter Miscellaneous Notes * Telephone Encounter - Ermias Khan MA - 08/24/2025 4:14 PM EDT Rx sent documented in this encounter Plan of Treatment DateTypeDepartmentCare Team (Latest Contact Info)Hhmhzsryfdt55/28/2025 2:45 PM EDTProcedure Visit [facility] [address] [place] [phone] Everton Garcia DPM [address] [place] [address] 10/27/2025 3:30 PM ESTAncillary Procedure [facility] [address] [place] [address] 03/11/2026 4:00 PM EDTOffice Visit [facility] [address] [place] [address] documented as of this encounter Visit Diagnoses Diagnosis Pulmonary fibrosis (HCC) Postinflammatory pulmonary fibrosis documented in this encounter Additional Health Concerns AssessmentNoted TimePHQ-9 Depression Total Score: 2:00 PM EDT documented as of this encounter Care Teams Team MemberRelationshipSpecialtyStart DateEnd Gildardo Yanez MD [address] [place] [address] PCP - GeneralInternal Medicine05/26/25 Saul Abdalla DO [address] [place], [place] [address] [place] [address] Referring PhysicianOphthalmology02/22/24 Ubaldo Dubose MD [address] [place] [address] Referring PhysicianPulmonary Disease02/22/24 Valdez Castro MD [address] [facility] [address] [place] [address] Referring PhysicianPediatric Pulmonology02/22/24 Flex Ramos MD [address] [facility] [address] [place] [address] Referring PhysicianGastroenterology02/22/24 Judit Lora MD [address] [facility] [address], [address] [address] Referring PhysicianCardiology02/22/24documented as of this encounter
--- OUTSIDE RECORDS SUMMARY | 2025-08-31 14:01 | XMS_ITS | Encounter Summary ---
Author Organization [facility] Address [address] [place] [address] Care Team Providers Care Interior Design Teacher Name Role Phone Saul Abdalla DO Unavailable [phone] Ubaldo Dubose MD Unavailable [phone] Valdez Castro MD Unavailable [phone] Flex Ramos MD Unavailable Judit Lora MD Unavailable Gildardo Yanez MD Primary Care Provider Encounter Details DateTypeDepartmentCare Team (Latest Contact Info)Gecrdlfggul95/22/2025Telephone [facility] [address] [facility] [address] [place] [phone] Christal Herndon PA [address] [facility] [address] [place] [address] Social History Tobacco UseTypesPacks/DayYears UsedDateSmoking Tobacco: FormerCigarettesQuit: [...] InformationValueDate RecordedSex Assigned at BirthNot on fileLegal QllLupjgy83/15/2023 6:36 PM EDTGender Identity Not on fileSexual OrientationNot on filedocumented as of this encounter Miscellaneous Notes * Telephone Encounter - Ermias Khan MA - 08/26/2025 2:03 PM EDT Nadira information of the below information * Telephone Encounter - SPIKE Souza - 08/26/2025 1:35 PM EDT Let pt daughter know I spoke with Dr. Yanez and he is ok that we give her Singulair. I will send to pharmacy for her. documented in this encounter Plan of Treatment DateTypeDepartmentCare Team (Latest Contact Info)Exkgdckugvm70/28/2025 2:45 PM EDTProcedure Visit [facility] [address] [place] [phone] Everton Garcia, STEFANIEM [address] [place] [address] 10/27/2025 3:30 PM ESTAncillary Procedure [facility] [address] [place] [address] 03/11/2026 4:00 PM EDTOffice Visit [facility] [address] [place] [address] documented as of this encounter Visit Diagnoses Diagnosis Allergic rhinitis, unspecified seasonality, unspecified trigger- Primary documented in this encounter Additional Health Concerns AssessmentNoted TimePHQ-9 Depression Total Score: 304 2:00 PM EDT documented as of this encounter Care Teams Team MemberRelationshipSpecialtyStart DateWad[facility] Gildardo Yanez MD [address] [place] [address] PCP - GeneralInternal Medicine05/26/25 Saul Abdalla DO [facility] [address] [place] [address] Referring PhysicianOphthalmology02/22/24 Ubaldo Dubose MD [address] [place] [address] Referring PhysicianPulmonary Disease02/22/24 Valdez Castro MD [address] [place] [address] Referring PhysicianPediatric Pulmonology02/22/24 Flex Ramos MD [address] [place] [address] Referring PhysicianGastroenterology02/22/24 Judit Lora MD [address] [facility] [address] [place] [address] Referring PhysicianCardiology02/22/24documented as of this encounter
--- OUTSIDE RECORDS SUMMARY | 2025-08-31 14:01 | XMS_ITS | Clinical Summary ---
Author Organization [facility] Address [address] [place] [address] Care Team Providers Care Blender Snuff Name Role Phone Saul Abdalla DO Unavailable Ubaldo Dubose MD Unavailable [phone] Valdez Castro MD Unavailable [phone] Flex Ramos MD Unavailable Judit Lora MD Unavailable Gildardo Yanez MD Primary Care Provider Allergies Active AllergyReactionsCriticalityNoted SuofUqoelyhbAgdsrlq75/17/2023 Other Reaction(s): unknown UiexgCzijVdg56/25/1246QwczsypbtHpmnmjdmhxswkb33/07/2023 Other Reaction(s): Confusion, Mental Status Change ByjlqJecgJrz95/17/9622TwgrhohksfpCqmtJws98/25/2009 Other Reaction(s): unknown Qllypmusytlz90/17/2023 Other Reaction(s): unknown Sulfa HuscyokuuclRmmjEvt54/25/2009 Other Reaction(s): unknown Medications MedicationSigDispense QuantityRefillsLast FilledStart DateEnd DateStatus levothyroxine (Synthroid, Levoxyl) 50 MCG tablet Take 50 mcg by mouth in the morning. Take before meals.Active LOPERAMIDE HCL PO Daily as neededActive liothyronine (Cytomel) 5 MCG tablet Take 5 mcg by mouth in the morning and 5 mcg before bedtime.Active TRUEplus Lancets 33G misc Indications:Type II or unspecified type diabetes mellitus with neurological manifestations, not stated as uncontrolled(250.60) ([facility])USE TO TEST ONCE DAILY EVERY MORNING. 100 each 4Active estradiol (Estrace) 0.1 MG/GM vaginal cream Indications:Atrophic vaginitisInsert 1 g into the vagina 2 (two) times a week 42.5 g 4Active semaglutide (Ozempic, 1 MG/DOSE,) 4 MG/3ML solution pen-injector Indications:Type 2 diabetes mellitus with other specified complication, without long-term current use of insulin ([facility])INJECT 1 MG SUBCUTANEOUSLY ONCE A WEEK 9 mL 4Active glucose blood (True Metrix Blood Glucose Test) test strip Indications:Type 2 diabetes mellitus with peripheral neuropathy ([facility])USE TO TEST BLOOD GLUCOSE ONCE DAILY DIRECTED 100 strip 5Active furosemide (Lasix) 20 MG tablet Indications:Edema, unspecified typeTake 0.5 tablets (10 mg) by mouth Daily 90 tablet 5Active Epidiolex 100 MG/ML solution Take 2 mL by mouth two times a day.5Active ipratropium-albuterol (Duo-Neb) 0.5-2.5 mg/3 mL nebulizer solution Take 3 mL by nebulization every 6 (six) hours if needed for wheezing or shortness of breathActive omeprazole (PriLOSEC) [address] capsule Indications:Gastroesophageal reflux disease without esophagitisTake 1 capsule (40 mg) by mouth in the morning. Take before meals. Do not crush or chew. 90 capsule 505/6Active oxybutynin XL (Ditropan-XL) 5 MG 24 hr tablet Indications:OAB (overactive bladder)Take 1 tablet (5 mg) by mouth at bedtime 90 tablet 5Active nitrofurantoin, macrocrystal-monohydrate, (Macrobid) 100 MG capsule Indications:Urinary tract infection without hematuria, site unspecifiedTake 1 capsule (100 mg) by mouth every other day And PRN as needed 60 capsule 5Active fexofenadine (Kelsey) 180 MG tablet Take 180 mg by mouth DailyActive fluticasone (Flonase) 50 MCG/ACT nasal spray Indications:OME (otitis media with effusion), rightAdminister 2 sprays into each nostril Daily Shake gently. Before first use, prime pump. After use, clean tip and replace cap. 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 (HCC),AgitationTake 1 mg by mouth Daily 30 tablet 5Active Additional Information Patient not taking.Reason: On hold, Reported on 08/21/2025 clopidogrel (Plavix) 75 MG tablet Indications:Brain injury with open intracranial wound and no loss of consciousness, subsequent encounterTake 1 tablet (75 mg) by mouth Daily 90 tablet 5Active simvastatin (Zocor) 20 MG tablet Indications:Mixed hyperlipidemiaTake 1 tablet (20 mg) by mouth at bedtime 90 tablet 5Active ibandronate (Boniva) 150 MG tablet Indications:Senile osteoporosisTake 1 tablet (150 mg) by mouth every 30 (thirty) days Take in morning with full glass of water on an empty stomach. No food, drink, meds, or lying down for 60 minutes after. 3 tablet 5Active pregabalin (Lyrica) 25 MG capsule Indications:Lumbar radiculopathy, rightTake 1 capsule (25 mg) by mouth at bedtime 90 capsule ctive albuterol HFA 90 mcg/act inhaler Indications:Pulmonary fibrosis (HCC)Inhale 2 puffs by mouth every 4 (four) hours if needed for wheezing or shortness of breath 18 g 5Active montelukast (Singulair) 10 MG tablet Indications:Allergic rhinitis, unspecified seasonality, unspecified triggerTake 1 tablet (10 mg) by mouth at bedtime 30 tablet 6Active sodium chloride 3 % nebulizer solution Discontinued albuterol HFA 90 mcg/act inhaler Indications:Pulmonary fibrosis (HCC)Inhale 2 puffs every 4 (four) hours if needed for wheezing or shortness of breath 18 g 51Discontinued Active Problems ProblemNoted DateDiagnosed YwlyMunktkafkqe14/21/2025Pure hypercholesterolemia 05/27/2025Polyneuropathy associated with underlying zldfvqc8705/27/2025OAB (overactive bladder)05/27/2025quired hallux uckjzb7405/19/2025rthritis of facet joint of thoracic spine05/19/2025hronic obstructive pulmonary disease, zovyvywbvof78/15/2025 Overview (05/19/2025): Documented on 02/19/2023 by JOSE LUIS MONTES Facet arthritis of lumbosacral wztttc0805/19/2025Female stress incontinence 05/19/2025Globus qhnswmfak95/15/2025Presence of avxdxfdkstvmkrf32/15/2025Syncope 05/19/2025nkylosing spondylitis lumbar kionbp3604/08/2025Pulmonary hypertension 06/12/2024Seizure rijvuyri98/20/2024Former jizrqi4203/10/2024History of traumatic brain fjsmsu7203/10/2024Sinus srfsyunnhga92/06/9672Pdybxkmqibfrff92/06/2024ISH (diffuse idiopathic skeletal hyperostosis)02/25/2024ge-related nuclear cataract of both eyes02/13/2024ementia associated with other underlying disease without behavioral zlrgvusvbju50/16/2023astroesophageal reflux disease without ypvhnybmyzq33/16/9020Tsfxyxyauaiqui77/16/2023ge-related osteoporosis without current pathological wdqqnvqi19/16/2023 Resolved Problems ProblemNoted DateDiagnosed DateResolved DateNSIP (nonspecific interstitial pneumonia)Shortness of lhgesw43hronic coughhest vevitovhzq83hronic vasomotor okazldto50Need for immunization against hgflajsbv14/19/2023 08/25/2024Moderate asthma without vjdjymdkjygx19ulmonary ntvzcncy05 Encounters DateTypeDepartmentCare EczmRtvrlcvrhaa28/22/2025Telephone [facility] [address] [place] [address] Christal Herndon, PA 08/24/2025Telephone [facility] [place] [facility] [address] [place] [address] Aixa Ferrell LPN 08/24/2025Refill [facility] [address] [place] [address] Jamal Jay DO Pulmonary fibrosis (HCC)08/21/2025 2:45 PM EDTAncillary Procedure [facility] [place] [facility] [address] [place] [address] 08/21/2025 2:00 PM EDTOffice Visit [facility] [address] [place] [address] Christal Herndon, PA Pain and swelling of lower leg, right (Primary Dx); Lumbar radiculopathy, right; Seasonal /17/2025Results Follow-Up [facility] [address] [place] [address] Christal Herndon PA Vascular US lower extremity venous duplex right08/21/20257445Msrpfu55/03/2025Results Follow-Up [facility] [address] [place] [address] Gildardo Yanez MD XR ABDOMEN 2 VIEW08/06/2025 12:15 PM EDTAncillary Procedure [facility] [address] [place] [address] Generalized abdominal pain; Acute cough08/06/20254643Wtwfsl18/01/2025Telephone [facility] [address] [place] [phone] Digna Sharma LPN /23/2025Patient Outreach [facility] [place] [address] Nancy Devlin LPN 07/24/2025linisync Result Encounter [facility] External Department Unsolicited Provider, Generic External Data 07/23/2025Refill [facility] [address] [place] [address] Jamal Jay, DO Senile rtsxwxderkuu22/18/2025Refill [facility] [address] [place] [address] Jamal Jay, Brain injury with open intracranial wound and no loss of consciousness, subsequent encounter; Mixed zuxvdimgutnpmu93/25/2025Results Follow-Up [facility] [address] [place] [address] Jose Luis Montes NP XR lumbar spine 2 or 3 views06/25/2025 3:15 PM EDTAncillary Procedure [facility] [address] [place] [address] 06/25/2025 2:00 PM EDTOffice Visit [facility] [address] [place] [address] Jose Luis Montes NP Pure hypercholesterolemia (Primary Dx); Prediabetes; 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 (HCC); Chronic obstructive pulmonary disease, unspecified COPD type (HCC); Bronchiectasis without complication (HCC); Seizure disorder (HCC); Pulmonary hypertension (HCC); Acquired hypothyroidism ; Left leg weakness; 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; Chronic midline thoracic back pain; Lumbar spine pain; Zihgfbjrs21/21/2025Travelfrom Last 3 Months Immunizations ImmunizationAdministration DatesNext DueInfluenza, Seasonal, Quadrivalent, Gsepamwrfi17/19/2023Influenza, trivalent, ydvowlsbpi28/21/2024Pneumococcal Conjugate PCV 13011/20/2014Pneumococcal Polysaccharide KJZV0831/Zoster, Lyujldoionq89/26/2022,02/28/2022 Family History Medical HistoryRelationNameCommentsheart concernsBrotherHeart diseaseFather SchizophreniaMotherStrokeSisterRelationNameStatusCommentsBrotherDaughter 1Alive Daughter 2AliveFatherDeceasedMotherDeceasedSisterSonAlive Social History Tobacco UseTypesPacks/DayYears UsedDateSmoking Tobacco: FormerCigarettesQuit: 11/05/1979Passive Smoke Exposure: PastSmokeless Tobacco: Never Tobacco Cessation:Counseling Given: Not Answered Alcohol UseStandard Drinks/WeekCommentsNever0 (1 standard drink = 0.6 oz pure alcohol)caffeine: 1-2 cups per day teaAUDIT-CAnswerDate RecordedQ1: How often do you have a drink containing alcohol?Never04/22/2024Q2: How many drinks containing alcohol do you have on a typical day when you are drinking?Patient does not drink04/22/2024Q3: How often do you have six or more drinks on one occasion?Never04/22/2024HQ-2AnswerDate RecordedPatient Health Questionnaire-2 Bgbmy9274CommentsUnknownSex and Gender InformationValueDate RecordedSex Assigned at BirthNot on fileLegal AeaYsxtfv48/15/2023 6:36 PM EDT Gender IdentityNot on fileSexual OrientationNot on file Last Filed Vital Signs Vital SignReadingTime TakenCommentsBlood Hgwqcsvv824/6608/21/2025 2:14 PM EDT Axvjc638608/21/2025 2:14 PM EDTTemperature--Respiratory Rate--Oxygen Pedrtmwlgm86% 08/21/2025 2:14 PM EDTInhaled Oxygen Concentration--Eeuwuj00.1 kg (128 lb) 08/21/2025 2:14 PM RJPZezpgr164.8 cm (4' 9 )08/21/2025 2:14 PM EDTBody Mass Index27. 2:14 PM EDT Plan of Treatment DateTypeDepartmentCare Team (Latest Contact Info)Hxgkwlsqokv11/28/2025 2:45 PM EDTProcedure Visit [facility] [address] [place] [address] Everton Garcia, DPM [address] [place] [address] 10/27/2025 3:30 PM ESTAncillary Procedure [facility] [place] [facility] [address] [place] [phone] 03/11/2026 4:00 PM EDTOffice Visit [facility] [place] [facility] [address] [place] [phone] Health MaintenanceDue DateLast DoneCommentsDiabetes: Hemoglobin A1C05/08/2025 02/06/2025, 08/24/2024, 02/20/2024, Additional history existsDiabetes: Urine Protein Xecgusnkq73/04/956594/02/2025, 02/19/2023, 02/03/2022, Additional history existsDiabetes: Retinopathy Lmkadkwrm09/07/2025, 02/13/2024, 02/13/2024, Additional history existsPneumococcal Vaccine: 65+ YearsCompleted 08/04/2020, 11/20/2014Influenza HnykyimQolywhcoc24/20/2025, 08/25/2024, 08/23/2023 Procedures Procedure NamePriorityDate/TimeAssociated DiagnosisCommentsVASC US LOWER EXTREMITY VENOUS DUPLEX BMOTBFHVF24/17/2025 3:16 PM EDT Pain and swelling of lower leg, right XR CHEST 2 YHRKAHujwmku70/02/2025 12:24 PM EDT Acute cough XR ABDOMEN 2 KRTUIivhkoc14/02/2025 12:24 PM EDT Generalized abdominal pain TISS PATH BX GFCHZPRyeeffi62/19/2025 11:14 AM EDT XR THORACIC SPINE 2 JHAIYOqcilrs95/21/2025 3:37 PM EDT Chronic midline thoracic back pain XR LUMBAR SPINE 2-3 NGQQQYggobzc45/21/2025 3:37 PM EDT Lumbar spine pain DIABETIC RETINOPATHY SCREENING - OU - BOTH LTKOGkhycbs98/09/2025 8:34 AM EDT MICROALBUMIN / CREATININE URINE UZFRZQffdiab80/04/2025 2:10 PM EDT HEMOGLOBIN A1C WITH QWRTprlaer89/04/2025 2:10 PM EDT from Last 3 Months or Most Recently Relevant to Health Maintenance Results * Vascular US lower extremity venous [...] BY: Baron Montenegro MD Authorizing ProviderResult TypeResult StatusSummBryan [facility] US PROCEDURES Final Result * XR ABDOMEN 2 VIEW (08/06/2025 12:24 PM EDT)Anatomical RegionLateralityModality AbdomenRadiographic ImagingSpecimen (Source)Anatomical Location / Laterality Collection Method / VolumeCollection TimeReceived Time08/06/2025 4:12 PM EDT Impressions 08/06/2025 4:18 PM EDT FINDINGS COULD REFLECT REACTIVE AIRWAY DISEASE OR BRONCHITIS. Nonobstructive, nonspecific bowel gas pattern ELECTRONICALLY SIGNED BY: Sebastian Robert DO Narrative 08/06/2025 4:18 PM EDT XR CHEST 2 VIEWS, XR ABDOMEN 2 VIEW : 08/06/2025 12:21 PM CLINICAL HISTORY: cough. COMPARISON: Chest x-ray February 22, 2024. TECHNIQUE: ROUTINE FINDINGS: Chest: There is coarsening of the interstitium. The right hemidiaphragm is elevated. The cardiac silhouette is not enlarged. No consolidating pneumonia, pneumothorax or pleural effusion is seen. Degenerative changes are seen in the spine. Plate and screws are partially visualized in the left humerus. X-ray of the abdomen: There is fecal material seen throughout the colon all the way down into the pelvis. No dilated loops of bowel are seen. No free air seen under the diaphragm. Surgical clips are seen in the right upper quadrant of the abdomen. Degenerative changes are seen in the visualized spine. Procedure Note Sebastian Robert DO - 08/06/2025 XR CHEST 2 VIEWS, XR ABDOMEN 2 VIEW : 08/06/2025 12:21 PM CLINICAL HISTORY: cough. COMPARISON: Chest x-ray February 22, 2024. TECHNIQUE: ROUTINE FINDINGS: Chest: There is coarsening of the interstitium. The right hemidiaphragm is elevated. The cardiac silhouette is not enlarged. No consolidatingpneumonia, pneumothorax or pleural effusion is seen. Degenerative changesare seen in the spine. Plate and screws are partially visualized in theleft humerus. X-ray of the abdomen: There is fecal material seen throughout the colonall the way down into the pelvis. No dilated loops of bowel are seen. Nofree air seen under the diaphragm. Surgical clips are seen in the rightupper quadrant of the abdomen. Degenerative changes are seen in thevisualized spine. IMPRESSION: FINDINGS COULD REFLECT REACTIVE AIRWAY DISEASE OR BRONCHITIS. Nonobstructive, nonspecific bowel gas pattern ELECTRONICALLY SIGNED BY: Sebastian Robert DO Authorizing ProviderResult TypeResult StatusRobike Yanez [facility] XR PROCEDURES Final Result * XR chest 2 views (08/06/2025 12:24 PM EDT)Anatomical RegionLateralityModality ChestRadiographic ImagingSpecimen (Source)Anatomical Location / Laterality Collection Method / VolumeCollection TimeReceived Time08/06/2025 4:12 PM EDT Impressions 08/06/2025 4:18 PM EDT FINDINGS COULD REFLECT REACTIVE AIRWAY DISEASE OR BRONCHITIS. Nonobstructive, nonspecific bowel gas pattern ELECTRONICALLY SIGNED BY: Sebastian Robert DO Narrative 08/06/2025 4:18 PM EDT XR CHEST 2 VIEWS, XR ABDOMEN 2 VIEW : 08/06/2025 12:21 PM CLINICAL HISTORY: cough. COMPARISON: Chest x-ray February 22, 2024. TECHNIQUE: ROUTINE FINDINGS: Chest: There is coarsening of the interstitium. The right hemidiaphragm is elevated. The cardiac silhouette is not enlarged. No consolidating pneumonia, pneumothorax or pleural effusion is seen. Degenerative changes are seen in the spine. Plate and screws are partially visualized in the left humerus. X-ray of the abdomen: There is fecal material seen throughout the colon all the way down into the pelvis. No dilated loops of bowel are seen. No free air seen under the diaphragm. Surgical clips are seen in the right upper quadrant of the abdomen. Degenerative changes are seen in the visualized spine. Procedure Note Sebastian Robert DO - 08/06/2025 XR CHEST 2 VIEWS, XR ABDOMEN 2 VIEW : 08/06/2025 12:21 PM CLINICAL HISTORY: cough. COMPARISON: Chest x-ray February 22, 2024. TECHNIQUE: ROUTINE FINDINGS: Chest: There is coarsening of the interstitium. The right hemidiaphragm is elevated. The cardiac silhouette is not enlarged. No consolidatingpneumonia, pneumothorax or pleural effusion is seen. Degenerative changesare seen in the spine. Plate and screws are partially visualized in theleft humerus. X-ray of the abdomen: There is fecal material seen throughout the colonall the way down into the pelvis. No dilated loops of bowel are seen. Nofree air seen under the diaphragm. Surgical clips are seen in the rightupper quadrant of the abdomen. Degenerative changes are seen in thevisualized spine. IMPRESSION: FINDINGS COULD REFLECT REACTIVE AIRWAY DISEASE OR BRONCHITIS. Nonobstructive, nonspecific bowel gas pattern ELECTRONICALLY SIGNED BY: Sebastian Robert DO Authorizing ProviderResult TypeResult StatusRobert Noman Yanez MDIMG XR PROCEDURES Final Result * TISS PATH BX REPORT (07/24/2025 11:14 AM EDT)ComponentValueRef RangeTest MethodAnalysis TimePerformed AtPathologist SignatureCCF CASE REPORTCCFComment: Surgical Pathology Report ? Case: [id number] ? Authorizing Provider: ??Margo Aguilar MD ? Collected: ? 07/24/2025 11:14 AM ? Ordering Location: ? [facility] ?Received: ?07/24/2025 02:46 PM ? Pathologist: ? Ramnó Solis MD, PhD ? Specimen: ?Gallbladder ? [facility] FINAL DIAGNOSISCCFComment: A. Gallbladder, cholecystectomy: - Chronic cholecystitis with adenomyomatous hyperplasia at the fundus - Cholelithiasis at 1649 EDT [facility] GROSS DESCRIPTIONA. GallbladderCCFComment: Received in formalin labeled as gallbladder is [...] does not reveal any possible lymph nodes. Bonding Supervisor sections are submitted in 1 cassette. RSA July 27, 2025 9:49 AM Gross examination performed at [facility], [address] [place] [address] [facility] CLINICAL HISTORYCCFComment: Pre-op diagnosis: Symptomatic cholelithiasis [K80.20] [facility] FINAL PERFORMING LABCCFComment: Diagnostic interpretation performed at: [facility], [address] [place] [address], [place] [address] ?? CLIA# [id number] Parachute Supervisor: MD SANJEEV Gao DISCLAIMERCCFComment: Laboratory Developed Test (LDT) Disclaimer: Performance characteristics of immunohistochemical, immunofluorescent, and chromogenic in-situ hybridization tests have been determined by the performing laboratory within the [facility] Department of Pathology and Laboratory Medicine ([facility], [facility], [facility], [facility], [facility], [facility], or [facility]) in a manner consistent with CLIA requirements. One or more of these tests may not have been cleared or approved by the FDA. The [facility] Department of Pathology and Laboratory Medicineis regulated under CLIA as qualified to perform high-complexity testing. These tests are used for clinical purposes. These should not be regarded as investigational or for research. Positive and negative controls stain appropriately. Specimen (Source)Anatomical Location / LateralityCollection Method / Volume Collection TimeReceived Time07/24/2025 11:14 AM EDT07/24/2025 5:53 PM EDT Narrative DAHIANA - 07/29/2025 4:49 PM EDT Specimen Type: TISSUE SPECIMEN Ordering Facility: [facility] ?Address: [address] [place] [address] Original Ordering Provider: MARGO AGUILAR Authorari ProviderResult TypeResult StatusGeneric External Data ProviderLAB BLOOD ORDERABLESFinal ResultPerforming OrganizationAddressCity/State/ZIP Code [place] [address] * XR lumbar spine 2 or 3 views (06/25/2025 3:37 PM EDT)Anatomical Region LateralityModalitySpine, L-spineRadiographic ImagingSpecimen (Source) Anatomical Location / LateralityCollection Method / VolumeCollection Time Received Time06/26/2025 12:50 PM EDT Impressions 06/26/2025 12:51 PM EDT No acute osseous abnormality. Degenerative changes of the lumbar spine. ELECTRONICALLY SIGNED BY: Gildardo Ernst DO Narrative 06/26/2025 12:51 PM EDT EXAMINATION: XR LUMBAR SPINE 2-3 VIEWS TECHNIQUE: [...] No acute fracture. No spondylolysis or spondylolisthesis. Procedure Note Gildardo Ernst DO - 06/26/2025 EXAMINATION: XR LUMBAR SPINE 2-3 VIEWS TECHNIQUE: 3 views of the lumbar spine. HISTORY: Low back pain COMPARISONS: CT abdomen pelvis May 29, 2025 FINDINGS: Slight straightening of the lumbar lordosis. Stable chronic compressiondeformity of L1. Lumbar vertebral body heights are otherwise maintained.Osseous fusion of the vertebral bodies of L3 and L4. Multileveldegenerative endplate spurring. Facet arthropathy of the lower lumbarspine. No acute fracture. No spondylolysis or spondylolisthesis. IMPRESSION: No acute osseous abnormality. Degenerative changes of the lumbar spine. ELECTRONICALLY SIGNED BY: Gildardo Ernst DO Authorizing ProviderResult TypeResult StatusMicselect medical clevel[facility] clinic [facility], [facility] Noman Montes NPIMG XR PROCEDURES Final Result * XR thoracic spine 2 views (06/25/2025 3:37 PM EDT)Anatomical RegionLaterality ModalitySpine, T-spineRadiographic ImagingSpecimen (Source)Anatomical Location / LateralityCollection Method / VolumeCollection TimeReceived Time06/26/2025 1:50 PM EDT Impressions 06/26/2025 1:52 PM EDT No acute osseous abnormality. Degenerative changes of the thoracic spine. ELECTRONICALLY SIGNED BY: Gildardo Ernst DO Narrative 06/26/2025 1:52 PM EDT EXAM: XR THORACIC SPINE 2 VIEWS HISTORY: back pain TECHNIQUE: 3 views of the thoracic spine obtained. COMPARISON: Chest radiographs February 22, 2024 FINDINGS: Mild dextrocurvature. Thoracic vertebral body heights are maintained. Intervertebral disc heights are maintained. Multilevel degenerative endplate spurring. Procedure Note Gildardo Ernst DO - 06/26/2025 EXAM: XR THORACIC SPINE 2 VIEWS HISTORY: back pain TECHNIQUE: 3 views of the thoracic spine obtained. COMPARISON: Chest radiographs February 22, 2024 FINDINGS: Mild dextrocurvature. Thoracic vertebral body heights are maintained. Intervertebral disc heights are maintained. Multilevel degenerativeendplate spurring. IMPRESSION: No acute osseous abnormality. Degenerative changes of the thoracic spine. ELECTRONICALLY SIGNED BY: Gildardo Ernst DO Authorizing ProviderResult TypeResult StatusJose Luis Montes NPIMG XR PROCEDURES Final Result * Diabetic Retinopathy Screening - OU - Both Eyes (05/13/2025 8:34 AM EDT) Anatomical RegionLateralityModalityHeadOther Narrative Authorizing ProviderResult TypeResult StatusNoms Provider Unallocated MDOPHTH PHOTOGRAPHYFinal Result * (ABNORMAL) Hemoglobin a1c with eag (02/06/2025 2:10 PM EDT)ComponentValueRef RangeTest MethodAnalysis TimePerformed AtPathologist SignatureHEMOGLOBIN A1C 6.0(H)4.3 - 5.6 %02/07/2025 8:19 AM [facility]: Increased risk for diabetes: 5.7 - 6.4 diabetes: >6.4 glycemic control for adults with diabetes: <7.0 ESTIMATED AVERAGE LQXDCXI005ut/dL02/07/2025 8:19 AM [facility]trSpecimen (Source)Anatomical Location / LateralityCollection Method / VolumeCollection TimeReceived TimeBlood (Blood)02/06/2025 2:10 PM EDT02/06/2025 2:10 PM EDT Narrative Authorizing ProviderResult TypeResult StatusJose Luis Montes NPLAB BLOOD ORDERABLESFinal ResultPerforming OrganizationAddressCity/State/ZIP CodePhone Number [facility] [address] [place] [address], [facility] [address] [place] [address] * Microalbumin / creatinine urine ratio (02/06/2025 2:10 PM EDT)ComponentValue Ref RangeTest MethodAnalysis TimePerformed AtPathologist Signature MICROALBUMIN, URINE<0.70.0 - 1.8 mg/dL02/06/2025 9:21 PM [facility]trCREATININE, URINE (RANDOM)52.00mg/dL02/06/2025 9:21 PM EDT [facility]trComment:No reference range established MICROALBUMIN/CREATININE RATIOTest not performed0.0 - 30.004 9:21 PM [facility] CtrSpecimen (Source)Anatomical Location / LateralityCollection Method / VolumeCollection TimeReceived TimeOther 02/06/2025 2:10 PM EDT02/06/2025 2:10 PM EDT Narrative Authorizing ProviderResult TypeResult StatusJekali OMER URINE ORDERABLESFinal ResultPerforming OrganizationAddressCity/State/ZIP CodePhone Number [facility] [address] [place] [address], [facility] [address] [place] [address] from Last 3 Months or Most Recently Relevant to Health Maintenance Insurance Care Teams Team MemberRelationshipSpecialtyStart DateEnd Gildardo Lares MD [address] [address] PCP - GeneralInternal Medicine05/26/25 Saul Abdalla DO [address] [place] [address] Referring PhysicianOphthalmology02/22/24 Ubaldo Dubose MD [address] [place] [address] Referring PhysicianPulmonary Disease02/22/24 Valdez Castro MD [address] [place] [address] Referring PhysicianPediatric Pulmonology02/22/24 Flex Ramos MD [address] [place], [place] [id number] Referring PhysicianGastroenterology02/22/24 Judit Lora MD [address] [facility] [address] [place] [address] Referring PhysicianCardiology02/22/24
--- OUTSIDE RECORDS SUMMARY | 2025-08-31 14:01 | XMS_ITS | Clinical Summary ---
Author Organization [facility] Address [address] [place] [address] Phone Care Team Providers Care Sand Caster Apprentice Name Role Phone MistyJamal ortiz DO Primary Care Provider [phone] Allergies Active AllergyReactionsCriticalityNoted TqahAjbnozegCwaqzTgitOuh11/25/2009 MrocwvmjiGekizvilaqeryr86/07/2023 Other Reaction(s): Confusion, Mental Status Change Opioids - Morphine AnaloguesHallucinations,Mtfivac5312/26/2022 Other Reaction(s): unknown KlhuukdzluiJrztPff81/25/2009 Other Reaction(s): unknown Propoxyphene N-TmjrxiiruweydLotxAvq14/25/2020Sulfa (Sulfonamide Antibiotics)Rash Low06/29/2009 Other Reaction(s): unknown Medications MedicationSigDispense QuantityRefillsLast FilledStart DateEnd DateStatus simvastatin (Zocor) 20 mg tablet Take 1 tablet (20 mg) by mouth once daily at bedtime.02/16/2021ctive albuterol 90 mcg/actuation inhaler 2 puffs Inhalation every 4 hrs as needed for 30 daysActive ibandronate (Boniva) 150 mg tablet Take 1 tablet (150 mg) by mouth every 30 (thirty) days.02/16/2021ctive TRUEplus Lancets 33 gauge misc USE TO TEST ONCE DAILY EVERY MORNING.02/26/2024ctive sodium chloride 3 % nebulizer solution INHALE CONTENTS OF 1 VIAL (2MLS) VIA NEBULIZATION 2 TIMES A DAYActive ofloxacin (Ocuflox) 0.3 % ophthalmic solution Administer 1 drop into the right eye five times a day for 1 day Starting 1 day before surgery, continue after surgery as agkscmlz13/10/2024ctive clopidogrel (Plavix) 75 mg tablet Take 1 tablet (75 mg) by mouth once daily.05/10/2021ctive omeprazole (PriLOSEC) [address] capsule Take 1 capsule (40 mg) by mouth.08/09/2021ctive levothyroxine (Synthroid, Levoxyl) 50 mcg tablet Take 1 tablet (50 mcg) by mouth once daily in the morning. Take before meals. Active liothyronine (Cytomel) 5 mcg tablet Take 1 tablet (5 mcg) by mouth twice a day.Active oxybutynin XL (Ditropan-XL) 5 mg 24 hr tablet Take 1 tablet (5 mg) by mouth once daily at bedtime.01/03/2024ctive estradiol (Estrace) 0.01 % (0.1 mg/gram) vaginal cream Insert 0.25 Applicatorfuls (1 g) into the vagina 2 times a week.06/11/2020Active cholecalciferol (Vitamin D-3) 50 mcg (2,000 unit) capsule Take 1 capsule (50 mcg) by mouth once daily.Active furosemide (Lasix) 20 mg tablet Indications:Shortness of breath,Cough, unspecified typeTake 0.5 tablets (10 mg) by mouth once daily. 45 tablet ctive Ozempic 1 mg/dose (4 mg/3 mL) pen injector Inject 1 mg under the skin 1 (one) time per week.04/22/2024ctive azithromycin (Zithromax) 250 mg tablet Take 1 tablet (250 mg) by mouth once a day on Sunday, Sunday, and Sunday. 05/05/2024ctive Active Problems ProblemNoted DateDiagnosed DateEncounter to discuss test hgkgvtj4306/12/2024 Pulmonary zwscaarxcvnn92/08/2024Sinus uxgwetqlouq17/06/2024MI 32.0-32.9,adult 03/10/2024Former jfssrg3803/10/20244883Teumrbldjvuvmy03/06/2024History of traumatic brain rwnatj3703/10/20247177Oupwn44/06/2024iabetes mellitus type II, non insulin hhvoeyiec03/06/4039Lqlddednv97/06/2024bnormal lung sefaqg1203/10/2024 Kwysyxsbcfkidt19/06/2024Shortness of btidgw1102/25/2024 Resolved Problems ProblemNoted DateDiagnosed DateResolved DatePulmonary mmikfavwxnddga77/08/2024 06/12/2024 Immunizations ImmunizationAdministration DatesNext DueAS03 Bxfrhrgb44/10/2020,09/10/2019, 07/25/2018Flu vaccine, trivalent, preservative free, HIGH-DOSE, age 65y+ (Fluzone)08/17/2022,08/16/2021,08/17/2016Influenza, Seasonal, Quadrivalent, Fmivrbekcq21/19/2023Influenza, trivalent, dludlrwluw23/10/2020,09/10/2019, 07/25/2018Moderna COVID-19 vaccine, bivalent, blue cap/ventura label *Check age/dose*3Pneumococcal conjugate vaccine, 13-valent (PREVNAR 13) 11/20/2014Pneumococcal polysaccharide vaccine, 23-valent, age 2 years and older (PNEUMOVAX 23)08/04/2020 Family History Medical HistoryRelationNameCommentsDiabetes type IBrotherHeart attackBrother HypertensionFatherAlzheimer's diseaseMotherDiabetes type IMotherStrokeMother StrokeSisterRelationNameStatusCommentsBrotherFatherMotherSister Social History Tobacco UseTypesPacks/DayYears UsedDateSmoking Tobacco: FormerCigarettes Smokeless Tobacco: Never Tobacco Cessation:Counseling Given: Not Answered Alcohol UseStandard Drinks/WeekCommentsNever0 (1 standard drink = 0.6 oz pure alcohol)CommentsUnknownSex and Gender InformationValueDate RecordedSex Assigned at BirthNot on fileLegal OadWakjim33/26/2022 9:21 PM ESTGender Identity Not on fileSexual OrientationNot on file Last Filed Vital Signs Vital SignReadingTime TakenCommentsBlood Qrpnhzey099/7008 2:51 PM EDT Uikrg279006/12/2024 2:51 PM EDTTemperature--Respiratory Rate--Oxygen Saturation-- Inhaled Oxygen Concentration--Sasytf40.2 kg (141 lb 9.6 oz)06/12/2024 2:51 PM FTBHiousl120.8 cm (4' 9 )06/12/2024 2:51 PM EDTBody Mass Index30.6408 2:51 PM EDT Plan of Treatment Health MaintenanceDue DateLast DoneCommentsMedicare Annual Wellness Visit (AWV) 1946Diabetes: Retinopathy Qqlpmbjsu58/28/1956Hepatitis C Screening 1964DTaP/Tdap/Td Vaccines (1 - Tdap)1968RSV High Risk: (Elderly (60+) or Population) (1 - 1-dose 75+ series)1Diabetes: Hemoglobin A1C/2Diabetes: Urine Protein Nvldsunre42/17/2024 02/19/2023Lipid Panel/TSH Level/, 02/20/2024Influenza Vaccine (#1), 08/17/2022, 08/16/2021, Additional history existsCOVID-19 Vaccine ( season)2025 11/10/2022, 07/06/2021, 02/03/2021, Additional history existsBone Density Scan , 10/20/2021neumococcal FpgyvflXsoibqeck34/30/2020, 11/20/2014Zoster RawpferpXwomkbtae61/26/2022, 02/28/2022HIB VaccinesAged OutNo longer eligible based on patient's age to complete this topicHPV VaccinesAged OutNo longer eligible based on patient's age to complete this topicHepatitis A VaccinesAged OutNo longer eligible based on patient's age to complete this topic Hepatitis B VaccinesAged OutNo longer eligible based on patient's age to complete this topicIPV VaccinesAged OutNo longer eligible based on patient's age to complete this topicMeningococcal VaccineAged OutNo longer eligible based on patient's age to complete this topicRotavirus VaccinesAged OutNo longer eligible based on patient's age to complete this topic Insurance Care Teams Team MemberRelationshipSpecialtyStart DateEnd Date Jamal Jay DO [address] [place] [address] PCP - General11/05/99
--- OUTSIDE RECORDS SUMMARY | 2025-08-31 14:01 | XMS_ITS | Clinical Summary ---
Author Organization [facility] tem Address [id number] [address] [place] [address] Care Team Providers Care School Admissions Representative Name Role Phone Unavailable Primary Care Provider Unavailabl e Social History Tobacco UseTypesPacks/DayYears UsedDateSmoking Tobacco: Never AssessedChildcare AnswerDate HtfkftxsPfgesrlikGaygjob83/12/2019EmploymentAnswerDate Recorded RxzrkxrsolFygfuip89/12/2019CommentsUnknownSex and Gender Information ValueDate RecordedSex Assigned at BirthNot on fileLegal LuqIprcxh87/06/2015 12:00 PM EDTGender IdentityNot on fileSexual OrientationNot on file Plan of Treatment Health MaintenanceDue DateLast DoneCommentsDepression Smmnsrrog90/28/1958Tobacco Bfslfsqpn99/28/1958DTaP,Tdap and Td Vaccines (1 - Tdap)1965Fall Risk Uhxspajic53/28/2011COVID-19 Vaccine (2024- season)501/04/2023, 07/06/2021, 02/03/2021, Additional history existsInfluenza Hdryppw1807/06/2025 08/25/2024, 08/23/2023, 08/17/2022, Additional history existsZoster (Shingles) IvuxrehGdxfthlqs60/26/2022, 02/28/2022 Medical Devices Not on file
--- OUTSIDE RECORDS SUMMARY | 2025-08-31 14:01 | XMS_ITS | Clinical Summary ---
Author Organization [facility] Address [address] [facility], [address] [place] [address] Care Team Providers Care Crossbow Maker Name Role Phone Unavailable Primary Care Provider Unavailabl e Allergies No known active allergies Medications MedicationSigDispense QuantityRefillsLast FilledStart DateEnd DateStatus azithromycin (ZITHROMAX) 250 MG tablet Take 1 tablet by mouth5Active cannabidiol (EPIDIOLEX) 100 MG/ML oral solution 2 ml by mouth two times daily Patient should start on September 18, 2025. 5Active vitamin D (CHOLECALCIFEROL) 50 MCG (1999) CAPS capsule Take 50 mcg by mouth dailyActive clopidogrel (PLAVIX) 75 MG tablet Take 1 tablet by mouth daily5Active estradiol (ESTRACE) 0.1 MG/GM vaginal cream Place 1 g vaginally Twice a Week4Active fexofenadine (ALEXA) 180 MG tablet Take 1 tablet by mouth dailyActive fluticasone (FLONASE) 50 MCG/ACT nasal spray 2 sprays by NOT APPLICABLE route 2 times daily6Active furosemide (LASIX) 20 MG tablet Take 0.5 tablets by mouth dailyActive ibandronate (BONIVA) 150 MG tablet Take 1 tablet by mouth every 30 days5Active ipratropium 0.5 mg-albuterol 2.5 mg (DUONEB) 0.5-2.5 (3) MG/3ML SOLN nebulizer solution Inhale contents of 1 vial via nebulizer as instructed every 4 hours as needed for wheezing/shortness of breath.5Active levothyroxine (SYNTHROID) 50 MCG tablet TAKE 1 TABLET BY MOUTH ONCE DAILY, EXCEPT ON SUNDAYS TAKE 1/2 TABLET. (TOTAL 6 AND 1/2 TABS WEEKLY).Active omeprazole (PRILOSEC) 40 MG delayed release capsule Take 1 capsule by mouth/ctive oxyBUTYnin (DITROPAN-XL) 5 MG extended release tablet Take 1 tablet by mouth nightly at bedtime.Active OZEMPIC, 1 MG/DOSE, 4 MG/3ML SOPN sc injection Inject 1 mg into the skin once a week09/26/2024ctive simvastatin (ZOCOR) 20 MG tablet Take 1 tablet by mouth glafpqj27/18/2025Active Active Problems No known active problems Encounters DateTypeDepartmentCare HckkUmsjeyjwijn51/02/2025 1:00 PM EDTOffice Visit [facility] [address] [place] [address], [place] [id number] Marily Beaulieu MD Acute bilateral mastoiditis (Primary Dx)from Last 3 Months Social History Tobacco UseTypesPacks/DayYears UsedDateSmoking Tobacco: Never Assessed Tobacco Cessation:Counseling Given: No CommentsUnknownSex and Gender InformationValueDate RecordedSex Assigned at BirthNot on fileLegal FymFsoups65/10/2013 1:54 PM ESTGender IdentityNot on fileSexual OrientationNot on file Last Filed Vital Signs Vital SignReadingTime TakenCommentsBlood Vasqktdf697/7608/06/2025 1:27 PM EDT Qnmgm787608/06/2025 1:27 PM IYTFyyljchochp85.8 ??C (98.2 ??F)08/06/2025 1:27 PM EDTRespiratory Rate--Oxygen Jugepnrgsq17%08/06/2025 1:27 PM EDTInhaled Oxygen Concentration--Ovjlva03.7 kg (125 lb)08/06/2025 1:27 PM VUMRyguga359 cm (4' 9.09 )08/06/2025 1:27 PM EDTBody Mass Index26.9708/06/2025 1:27 PM EDT Plan of Treatment Health MaintenanceDue DateLast FdkzUyfhmupwYzbcul72/28/1956Depression Screen 1958Hepatitis C xaoudr2101/02/1964DTaP/Tdap/Td vaccine (1 - Tdap)1965 Respiratory Syncytial Virus (RSV) or age 60 yrs+ (1 - 1-dose 75+ series)1Annual Wellness Visit (Medicare Advantage)5COVID-19 Vaccine ( - 2024- season)501/3Pneumococcal 50+ years Vaccine Wtmibpzti34/30/2020, 11/20/2014Shingles bwogaxxXggqurfwv02/26/2022, 02/28/2022 DEXA (modify frequency per FRAX score)Zmhixhkmy86/22/2023, 10/20/2021, 12/24/2018Flu wyfjfviVwlbxuruo36/20/2025, 08/25/2024, 08/23/2023, Additional history existsHepatitis A vaccineAged OutNo longer eligible based on patient's age to complete this topicHepatitis B vaccineAged OutNo longer eligible based on patient's age to complete this topicHib vaccineAged OutNo longer eligible based on patient's age to complete this topicMeningococcal (ACWY) vaccineAged OutNo longer eligible based on patient's age to complete this topicMeningococcal B vaccineAged OutNo longer eligible based on patient's age to complete this topic Polio vaccineAged OutNo longer eligible based on patient's age to complete this topic Insurance
--- OUTSIDE RECORDS SUMMARY | 2025-08-31 14:01 | XMS_ITS | Patient Health Record ---
Author Organization [facility] [place] Address [address] [place] [address] Care Team Providers Care Studio Control Operator Name Role Phone Jamal Jay DO Primary Care Provider Unavail able Reason For Referral No Information Problems Problem Type SNOMED Code ICD Code Onset Dates Problem Status W/U Status Risk Notes Problem Hypothyroidism (08886209) Hypothyroidism (E03.9) ActiveconfirmedProblemAltered mental status (628248762)Altered mental state (R41.82)Activeconfirmed Plan Of Treatment No Information Insurance Providers Payer Name Payer Address Payer Phone Subscriber Number Group Number Insured Name Patient Relationship to Insured Coverage Start Date Coverage End Date [employer] MEDICARE [address] [address] [place] [address] [id number] Karuna Garcia - patient is the [id number] 2008
--- OUTSIDE RECORDS SUMMARY | 2025-08-31 14:01 | XMS_ITS | Clinical Summary ---
Author Organization [facility] Address [address] [place] [address] Care Team Providers Care Traffic Signal Technician Name Role Phone Gildardo Yanez MD Primary Care Provider [phone] Jose Luis Montes GLOBAL LEAD Unavailable [phone] Allergies Active AllergyReactionsCriticalityNoted OxdeRtvwxcipNrhzlLkxd38/25/2009Midazolam Mental Status Yvfgux2101/09/2023Opioids - Morphine AnaloguesMental Status Change, Pezgskx2612/26/2022 Other Reaction(s): unknown CtlrlvfvljcUgza20/25/2009PropoxypheneOther: See Hwooupxy72/17/2023 Other Reaction(s): unknown Sulfa (Sulfonamide Antibiotics)Rash06/29/2009 Medications MedicationSigDispense QuantityRefillsLast FilledStart DateEnd DateStatus clopidogrel bisulfate(PLAVIX 75 MG TAB) Take one(1) tablet daily.ctive CALCIUM 500 MG TAB Take one(1) tablet twice daily.ctive MULTIVITAMIN TAB Take one(1) tablet daily.ctive levothyroxine (SYNTHROID) 50 mcg tablet 50 mcg.05/23/2020Active Cholecalciferol, Vitamin D3, 50 mcg (2,000 unit) cap Daily10/17/2021ctive estradiol (ESTRACE) 0.01 % (0.1 mg/gram) vaginal cream Use 1 g vaginally.06/11/2020Active Ibandronate 150 mg tablet Take 1 tablet by mouth.11/05/2019Active TRUEPLUS LANCETS 33 gauge USE TO TEST ONCE DAILY EVERY MORNING.10/14/2023ctive liothyronine (CYTOMEL) 5 mcg tablet Take 1 tablet by mouth every 12 hours.10/25/2023ctive sodium chloride (NEBUSAL) 3 % nebulizer solution Use 2 mL via nebulizer two times a day. 360 mL 4Active ipratropium-albuterol (DUONEB) 0.5 mg-3 mg(2.5 mg base)/3 mL nebu Inhale contents of 1 vial via nebulizer as instructed every 4 hours as needed for wheezing/shortness of breath. 360 mL 03/18/2025tive azithromycin (ZITHROMAX) 250 mg tablet Indications:Bronchiectasis without complication (HCC)Take 1 tablet by mouth every Sunday, Sunday, and Sunday. 30 tablet 5Active albuterol HFA (PROVENTIL HFA, VENTOLIN HFA) 90 mcg/actuation inhaler Inhale 2 puffs as instructed every 4 hours as needed.04/30/2025tive fluticasone (FLONASE) 50 mcg/actuation nasal spray Use 2 sprays in each nostril two times a day.ctive fexofenadine (ALEXA) 180 mg tablet Take 180 mg by mouth once daily.Active furosemide (LASIX) 20 mg tablet Take 10 mg by mouth once daily.03/10/2024ctive nitrofurantoin monohydrate and macrocrystal (MACROBID) 100 mg capsule Take 100 mg by mouth every 48 hours.04/21/2025tive simvastatin (ZOCOR) 20 mg tablet Take 20 mg by mouth daily at bedtime.Active oxybutynin XL (DITROPAN XL) 5 mg 24 hr tablet Take 5 mg by mouth once daily.11/05/2023ctive OZEMPIC 1 mg/dose (4 mg/3 mL) pen Inject 1 mg subcutaneously one time a week.Active omeprazole (PRILOSEC) 40 mg capsule Take 40 mg by mouth./ctive cannabidiol (EPIDIOLEX) 100 mg/mL oral liquid 2 ml by mouth two times daily Patient should start on September 18, 2025. 360 mL 5Active brexpiprazole (REXULTI) 0.25 mg tablet Take 0.5 mg by mouth once daily.06/25/2025tive Active Problems ProblemNoted DateDiagnosed DateSymptomatic unbwrduskftuqt11/19/2025 risk for nlxblfpo75/19/2025 risk for aspiration jehmvwedc66/11/2025 Assessment & Plan (07/16/2025 2:34 PM EDT): Assessment: h/o previous tracheostomy with vocal cord paralysis. reported by daughter who is child care group leader. H/o micro aspiration in past Fvwliwkqiolejcvvbr06/08/2025 Assessment & Plan (07/13/2025 6:55 PM EDT): Assessment: stable , well controlled Most recent lipid panel WNL Interstitial lung euymhtn3707/13/2025 Assessment & Plan (07/16/2025 1:22 PM EDT): Assessment: stable, chronic with current regimen Pt [...] is normal. 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 07/13/2025 Assessment & Plan (07/16/2025 1:18 PM EDT): Assessment: with agitation Pt recently started on rexulti Discussed concerns with post op dementia/deliurium with daughter Daughter wants to avoid versed Yjoepkaidon40/21/2025 Assessment & Plan (07/16/2025 1:20 PM EDT): Assessment: most recent a1c was 6 Pt is currently on ozempic, instructions with min of 7 day hold given to patient and daughter intermediate (current) use of antithrombotics/aadawjjesikov70/29/2025 Assessment & Plan (07/16/2025 1:19 PM EDT): Assessment: pt has ok to hold plavix for 5 days prior to procedure Pulmonary /08/2024 Assessment & Plan (07/13/2025 6:58 PM EDT): Assessment: mild per echo 2023 RVSP was 38 Seizure sxqtgwmo60/20/2024 Assessment & Plan (07/16/2025 1:11 PM EDT): Assessment: STABLE WITH medication Neuro optimization letter scanned into [facility] on 06/11 with recommendations for pt to take meds dos Cough06/29/2020TBI (traumatic brain injury)11/23/2002 Assessment & Plan (07/16/2025 1:12 PM EDT): Assessment: STML, TIA (transient ischemic attack)11/05/2001 Assessment & Plan (07/16/2025 1:14 PM EDT): Assessment: stable, pt on plavix 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 Ok to hold per neurology scanned into [facility] Instructed pt to hold 5 days prior to procedure Resolved Problems ProblemNoted DateDiagnosed DateResolved DatePresence of neurostimulator Encounters DateTypeDepartmentCare NnwrNpdarnmbezd17/02/2025 1:40 PM EDTOffice Visit General Surgery [address] [place] [address] Melissa Enriquez MD Symptomatic cholelithiasis (Primary Dx)07/24/2025 1:06 PM EDTAnesthesia Event [facility] [address] [place] [address] Andry Mills MD 07/24/2025 11:55 AM EDT - 07/24/2025 2:00 PM EDTSurgery [facility] [address] [place] [address] Melissa Enriquez MD LAPAROSCOPIC CHOLECYSTECTOMY POSSIBLE OPEN07/24/2025 10:49 AM EDT - 07/25/2025 2:58 PM EDTHospital Encounter [address] [address] [facility] [place] [address] Melissa Enriquez MD Symptomatic cholelithiasis [K80.20] Discharge Disposition: Home07/24/20255637Ubzxve70/08/2025 7:00 PM EDTPAT Pre Anesthesia [address] [place] [address] 1, Pacc Rej Pre-op evaluation (Primary Dx); Hypercholesteremia; 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 (HCC); Pulmonary hypertension (HCC); Seizure disorder (HCC); Traumatic brain injury, with unknown loss of consciousness status, subsequent encounter; Interstitial lung disease (HCC); TIA (transient ischemic attack); At risk for aspiration pneumonia; 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/antiplatelets; Kscgkasbzvx94/08/2025Telephone General Surgery [address] [place] [address] Melissa Enriquez MD Patient Question; Oatbcfkhzhd16/05/2025 4:00 PM EDTOffice Visit Otolaryngology [address] [place] [address] Humble Simeon MD Middle ear effusion, right (Primary Dx); Chronic otitis media of both ears07/10/2025 3:00 PM EDTOffice Visit Audiology [address] [place] [address] Anastasia Sanchez AUD Dysfunction of both eustachian tubes (Primary Dx)07/10/20258189Ygnehz72/27/2025 Patient Update Pre Anesthesia [address] [place] [address] Malik Lucas RN Preparations For Surgery (PACC)06/24/2025 3:00 PM [facility] [address] [place] [phone] Sohail William MD, PhD Focal epilepsy with impairment of consciousness, intractable (HCC) (Primary Dx) 06/24/20255765Peksph71/06/2025Telephone General Surgery [address] [place] [address] Melissa Enriquez MD 06/09/2025 3:00 PM EDTOffice Visit General Surgery [address] [place] [address] Melissa Enriquez MD Symptomatic hcswospiyjqkxq18/05/2025 Get Medical Advice Neurology [address] [facility] [place] [address] Sohail William MD, PhD Surgical wsvgfuxgx49/05/2025Telephone General Surgery [address] [place] [address] Melissa Enriquez MD Schedule Surgery; [place] - Other06/04/2025 Get Medical Advice Otolaryngology [address] [place] [address] Zuleima Sloan PA-C Pedcharlene hearing test with myringotomy with physician uocgygfqh86/29/2025 3:25 PM EDTOffice Visit Otolaryngology [address] [place], [place] [phone] Zuleima Sloan PA-C Middle ear effusion, right (Primary Dx)06/02/2025Travelfrom Last 3 Months Immunizations ImmunizationAdministration DatesNext DueAS03 uqhmbwjn89/10/2020,09/10/2019, 07/25/2018influenza (HD-IIV3) vaccine, age 65+ yr, high dose, trivalent, PF (FLUZONE HIGH-DOSE)07/25/2025,08/17/2022,08/16/2021,08/17/2016influenza (IIV4) vaccine, age 6 mo - 64 yr, quadrivalent, PF (AFLURIA, FLUARIX, FLULAVAL, FLUZONE)10/22/2017influenza (aIIV3) vaccine, age 65+ yr, trivalent, PF (FLUAD) 07/15/2020,09/10/2019,07/25/2018influenza (aIIV4) vaccine, age 65+ yr, quadrivalent, PF (FLUAD QUAD)3pneumococcal polysaccharide (PPV23) vaccine, 23 valent (PNEUMOVAX 23)08/04/2020zoster (RZV) vaccine, recombinant (SHINGRIX)05/30/2022,02/28/2022 Family History Medical HistoryRelationCommentsCoronary Artery DiseaseBrotherThyroidDaughter hypothyroidismStrokeMotherCancerSistercervicalStrokeSisterRelationStatusComments BrotherDaughterMotherSister Social History Tobacco UseTypesPacks/DayYears UsedDateSmoking Tobacco: ObrmenTpfjyibime983 11/05/1969 - 11/05/1979mokeless Tobacco: Never Tobacco Cessation:Counseling Given: Not Answered Alcohol UseStandard Drinks/WeekCommentsNo0 (1 standard drink = 0.6 oz pure alcohol)Area Deprivation IndexAnswerDate RecordedNational Score (1-100), lower number is lower myzw543212/28/2023State Score (1-10), lower number is lower risk6 12/28/2023ata from: https://www.neighborhoodatlas.[facility].edu/. Last address used for zczib[address] regnantCommentsNoSex and Gender InformationValueDate RecordedSex Assigned at BirthNot on fileLegal KkrOmvzlv29/02/2012 9:56 AM ESTGender IdentityNot on fileSexual OrientationNot on file Last Filed Vital Signs Vital SignReadingTime TakenCommentsBlood Gxyzdyha980/6910/12/2024 2:03 PM EDT Yvybk6769 2:03 PM RVMQizvuitonjh85.6 ??C (97.9 ??F)07/25/2025 1:21 PM EDTRespiratory Twhh0602 1:21 PM EDTOxygen Ytuhtrujyi31%07/25/2025 2:47 PM EDTInhaled Oxygen Concentration--Txtqka16.4 kg (126 lb 9.6 oz)07/24/2025 5:25 PM HQCMnyqfs314.8 cm (4' 9 )07/24/2025 5:25 PM EDTBody Mass Index27.409 5:25 PM EDT Plan of Treatment DateTypeDepartmentCare Team (Latest Contact Info)Zvetijpanwq18/24/2026 11:40 AM [facility] Neurology [address] [place] [address] Sohail William MD, PhD [address] [facility] [place] [address] 6mo f/uHealth MaintenanceDue DateLast DoneCommentsDTaP,Tdap,Td Vaccine (1 - Tdap)1965RSV Vaccine (1 - 1-dose 75+ series)2021dvance Directive Nlipzatvza06/01/2025Medicare Advantage Annual Wellness Visit5Covid-19 Vaccine ( season)5011/10/2022, 07/06/2021, 02/03/2021, Additional history existsDiabetes Idhvsrcni25/20/77203307/25/2025, 02/06/2025, 02/06/2025, Additional history existsPneumococcal Vaccine: 50+Completed 08/04/2020, 11/20/2014Shingrix QugnzcxYjyxwckfv99/26/2022, 02/28/2022Mammogram BhmkoeclbAivaqejsqimw90/14/2022, 03/27/2022, 03/25/2021, Additional history existsCologuard (FIT-DNA)Striuabyodjn47/17/2023, 01/10/2019Colorectal Cancer ScreeningDiscontinuedBone Density CrmchteqtNxdjwyzqf79/22/2023, 10/20/2021, 12/24/2018Influenza EoxabtbIqlyweynh83/20/2025, 08/25/2024, 08/23/2023, Additional history existsCT ColonographyDiscontinuedColonoscopyDiscontinuedFecal Occult BloodDiscontinuedSigmoidoscopyDiscontinued Procedures Procedure NamePriorityDate/TimeAssociated DiagnosisCommentsCOMPREHENSIVE METABOLIC ZZPXPTwaiwny89/20/2025 8:27 AM EDT COMPLETE BLOOD JBNYIPopeacb61/20/2025 8:27 AM EDT SHUDPYWCFAOavzbyh27/19/2025 1:15 PM EDT LAPAROSCOPY SURG SRSZOVDEOOEWMVN88/19/2025 12:51 PM EDT Symptomatic cholelithiasis URINALYSIS, WITH OVBEDRZFGWEBqiwayg88/19/2025 12:00 PM EDT SURGICAL NPJECYIHQRjmxglr53/19/2025 11:14 AM EDT Symptomatic cholelithiasis PVZLnmmaop25/08/2025 6:55 PM EDT HEARING TEST/TOMBEXANFVmtvweb21/05/2025 3:50 PM EDTPT ED PATIENT INFORMATION 07/08/2025 EXTERNAL DUAPGQZ8406/12/2025 12:18 PM EDT PT ED PATIENT JAQNGPUVPDV20/02/2025 from Last 3 Months Results * (ABNORMAL) COMPREHENSIVE METABOLIC PANEL (07/25/2025 8:27 AM EDT)Component ValueRef RangeTest MethodAnalysis TimePerformed AtPathologist Signature Protein, Total7.06.3 - 8.0 g/dL07/25/2025 9:41 AM [facility] Albumin4.03.9 - 4.9 g/dL07/25/2025 9:41 AM [facility] LABORATORYCalcium, Total9.78.5 - 10.2 mg/dL07/25/2025 9:41 AM [facility] Bilirubin, Total0.50.2 - 1.3 mg/dL07/25/2025 9:41 AM [facility] LABORATORYAlkaline Ymvebofwvqj8512 - 123 U/L07/25/2025 9:41 AM [facility] RUQHXBQUVOOXD47(H)13 - 35 U/L07/25/2025 9:41 AM [facility] ZFATEHXXJICOX30(H)7 - 38 U/L07/25/2025 9:41 AM [facility] Rhepdka617(H)74 - 99 mg/dL07/25/2025 9:41 AM [facility] Comment: The [place] Diabetes Association (ADA) provides guidance for cutoff values for fasting glucose andrandom glucose. The ADA defines fasting as no [...] Standards of Medical Care in Diabetes 2016, [place] Diabetes Association. Diabetes Care. 2016.39(Suppl 1). DHY916 - 21 mg/dL07/25/2025 9:41 AM [facility] LABORATORYCreatinine0.74 0.58 - 0.96 mg/dL07/25/2025 9:41 AM [facility] VFSZOWOMSMGfuhcy782724 - 144 mmol/L07/25/2025 9:41 AM [facility] LABORATORYPotassium4.73.7 - 5.1 mmol/L07/25/2025 9:41 AM [facility] TGNYCOMQNNHvapkvkf64059 - 107 mmol/L 07/25/2025 9:41 AM [facility] UAQTVGPBTEPT65992 - 30 mmol/L07/25/2025 9:41 AM [facility] LABOR[facility]ORYAnion Iho860 - 15 mmol/L07/25/2025 9:41 AM T [facility] LABORATORYEstimated Glomerular Filtration Rate82>=60 mL/min/1.73m 07/25/2025 9:41 AM [facility] LABORATORYComment:Estimated Glomerular Filtration Rate (eGFR) is calculated using the 2020 CKD-EPI creatinine equation. This equation utilizes serum creatinine, sex, and age as parameters. The creatinine assay has traceable calibration to isotope dilution-mass spectrometry. Refer to KDIGO guidelines for clinical interpretation. In patients with unstable renal function, e.g. those with acute kidney injury, the eGFRmay not accurately reflect actual GFR.Specimen (Source)Anatomical Location / LateralityCollection Method / VolumeCollection TimeReceived TimeBloodBLOOD SPECIMEN / UnknownVenipuncture / Ykvrcio1007/25/2025 8:27 AM EDT07/25/2025 9:10 AM EDT Narrative Authorizing ProviderResult TypeResult StatusSiswillie Enriquez MDLABORATORYFinal Result Performing OrganizationAddressCity/State/ZIP CodePhone Number [facility] [address] [facility] [place] [address], [place] * COMPLETE BLOOD COUNT (07/25/2025 8:27 AM EDT)ComponentValueRef RangeTest MethodAnalysis TimePerformed AtPathologist KweqwgpswIXU50.123.70 - 11.00 k/uL 07/25/2025 9:12 AM [facility] LABORATORYRBC4.363.90 - 5.20 m/uL 07/25/2025 9:12 AM [facility] IDCGQRBUJCRytmnvlzji41.211.5 - 15.5 g/dL 07/25/2025 9:12 AM [facility] KVTEGVFPQDTyeuoaxaiv43.736.0 - 46.0 % 07/25/2025 9:12 AM [facility] AMRJJADEJPKXC97.180.0 - 100.0 fL07/25/2025 9:12 AM [facility] YWMMHUJXLZLSB10.326.0 - 34.0 pg07/25/2025 9:12 AM [facility] WJZAIHOIOCYTPB64.230.5 - 36.0 g/dL07/25/2025 9:12 AM [facility] LABORATORYRDW-CV12.111.5 - 15.0 %07/25/2025 9:12 AM [facility] LABORATORYPlatelet Eiyan190119 - 400 k/uL07/25/2025 9:12 AM [facility] LABORATORYMPV9.89.0 - 12.7 fL07/25/2025 9:12 AM [facility] Absolute nRBC<0.01<0.01 k/uL07/25/2025 9:12 AM [facility] Specimen (Source)Anatomical Location / LateralityCollection Method / Volume Collection TimeReceived TimeBloodBLOOD SPECIMEN / UnknownVenipuncture / Fwfykpj3907/25/2025 8:27 AM EDT07/25/2025 9:10 AM EDT Narrative Authorizing ProviderResult TypeResult StatusSisi Lauren IVYLABORATORYFinal Result Performing OrganizationAddressCity/State/ZIP CodePhone Number [facility] [address] [place] [address], * Airway (07/24/2025 1:15 PM EDT) Narrative Bessie Jimenez APRN.EXPLOSIVE TECHNICIAN - 07/24/2025 1:15 PM EDT Bessie Jimenez APRN.EXPLOSIVE TECHNICIAN 07/24/2025 1:33 PM Airway General Information Procedure Start Time/Medication Administration: 07/24/2025 1:15 PM Procedure End Time: 07/24/2025 1:15 PM Patient location during procedure: OR Patient identity confirmed: arm band and patient Staffing Anesthesiologist: Andry Mills MD EXPLOSIVE TECHNICIAN: Bessie Jimenez APRN.EXPLOSIVE TECHNICIAN Performed by: EXPLOSIVE TECHNICIAN Indications and Patient Condition Indications for airway management: anesthesia Preoxygenated: yes ? anesthesia circuit Patient position: sniffing Method: asleep [...] not difficult Comments Good visualization of cords. 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 ETT taped at 18 cm at lip. Authorizing ProviderResult TypeResult StatusAdam Gene MDANESTHESIA ORDERABLES Edited Result - Final * URINALYSIS, WITH MICROSCOPIC (07/24/2025 12:00 PM EDT)ComponentValueRef Range Test MethodAnalysis TimePerformed AtPathologist SignatureColorLight Yellow hkfagn7407/24/2025 12:14 PM [facility] LABORATORYClarityClearClear 07/24/2025 12:14 PM [facility]OR[facility]ORYGlucose, UrineNegativeTrace, Mmulruti89/19/2025 12:14 PM [facility]ORYBilirubin, Urine RjxzqiztVowgdzyk85/19/2025 12:14 PM [facility]ORYKetones, Urine NegativeNegative, Trace07/24/2025 12:14 PM [facility] LABORATORYSpecific [place], Ur1.0181.005 - 1.5671907/24/2025 12:14 PM [facility] Hemoglobin/Blood,UrNegativeNegative, Trace07/24/2025 12:14 PM [facility]ORATORYpH, Urine6.05.0 - 8.009 12:14 PM [facility]ORYProtein, UrineNegativeTrace, Mhclqlcn56/19/2025 12:14 PM [facility] AWNRXLRNHTDfghoffwurgmGhzsbqJgdpid01/19/2025 12:14 PM [facility] JUKOVEDQLNZvlfftavHhhpwxtrBypvwuiq33/19/2025 12:14 PM [facility] LABORATORYLeuk EsteraseNegativeNegative, 25 Monica/uL07/24/2025 12:14 PM [facility]ORATORYWBC, Urine0-5 /HPF0-5 /HPF07/24/2025 12:14 PM EDT [facility]ORATORYRBC, Urine0-3 /HPF0-3 /HPF07/24/2025 12:14 PM [facility] LABORATORYSquamous Epithelial CellsFew/HPF07/24/2025 12:14 PM [facility] LABORATORYSpecimen (Source)Anatomical Location / Laterality Collection Method / VolumeCollection TimeReceived TimeUrineURINE SPECIMEN / UnknownNon Blood / Ttskqti8107/24/2025 12:00 PM EDT07/24/2025 12:03 PM EDT Narrative Authorizing ProviderResult TypeResult StatusSiswillie Enriquez MDLABORATORYFinal Result Performing OrganizationAddressCity/State/ZIP CodePhone Number [facility] [address] [facility] [place] [address], * SURGICAL PATHOLOGY (07/24/2025 11:14 AM EDT)ComponentValueRef RangeTest Method Analysis TimePerformed AtPathologist SignatureCase ReportSurgical Pathology Report ? Case: [id number] ? Authorizing Provider: ??Melissa Enriquez MD ? Collected: ? 07/24/2025 11:14 AM ? Ordering Location: ? [facility] ?Received: ?07/24/2025 02:46 PM ? Pathologist: ? Ramón Solis MD, PhD ? Specimen: ?Gallbladder ? 07/29/2025 4:49 PM [facility]ISA. Gallbladder, cholecystectomy: - Chronic cholecystitis with adenomyomatous hyperplasia at the fundus - Ztkungsvwglmsw38/24/2025 4:49 PM [facility] at 1649 EDTGross DescriptionA. Gallbladder Received in formalin labeled as gallbladder is [...] does not reveal any possible lymph nodes. Sales & Service Associate sections are submitted in 1 cassette. RSA July 27, 2025 9:49 AM Gross examination performed at [facility], [address] [place] [address] 07/29/2025 4:49 PM [facility] LABClinical HistoryPre-op diagnosis: Symptomatic cholelithiasis [K80.20]07/29/2025 4:49 PM [facility] LABPerforming LabDiagnostic interpretation performed at: [facility], [address] [facility], [facility] [place] [address] CLIA# [id number] Bark Spudder: Maged Melo MD07/29/2025 4:49 PM EDTCCLEVEL[facility] LABDisclaimerLaboratory Developed Test (LDT) Disclaimer: Performance characteristics of immunohistochemical, immunofluorescent, and chromogenic in-situ hybridization tests have been determined by the performing laboratory within the [facility] Department of Pathology and Laboratory Medicine ([facility], [facility], [facility], [facility], [facility], [facility], or [facility]) in a manner consistent with CLIA requirements. One or more of these tests may not have been cleared or approved by the FDA. The [facility] Department of Pathology and Laboratory Medicineis regulated under CLIA as qualified to perform high-complexity testing. These tests are used for clinical purposes. These should not be regarded as investigational or for research. Positive and negative controls stain appropriately.07/29/2025 4:49 PM EDT [facility] LABSpecimen (Source)Anatomical Location / LateralityCollection Method / VolumeCollection TimeReceived TimeTissue GALLBLADDER STRUCTURE / Eexrpny0307/24/2025 11:14 AM EDT07/24/2025 2:46 PM EDT Comment:Pre-op diagnosis: Symptomatic cholelithiasis [K80.20] Narrative Authorizing ProviderResult TypeResult StatusSisi Lauren MDSURGICAL PATHOLOGYFinal ResultPerforming OrganizationAddressCity/State/ZIP CodePhone Number [facility] [place] [address], * EKG (07/13/2025 6:55 PM EDT)ComponentValueRef RangeTest MethodAnalysis Time Performed AtPathologist SignatureVentricular Pjjt79NXIYQMM CARDIOLOGYAtrial Nain31SHPJXBA CARDIOLOGYP-R Wbxmzzwi282pwISYJ CARDIOLOGYQRS Xvdzlcsw13vdNQKH CARDIOLOGYQT Pkbpavtt450cbESON CARDIOLOGYQTC Calculation (Bazett)429msAVON CARDIOLOGYCalculated P Nmxs17lvpizhtMBWB CARDIOLOGYCalculated R Rxat32hywfyrx [place] CARDIOLOGYCalculated T Akdp10aoohsdxHZUJ CARDIOLOGYSpecimen (Source) Anatomical Location / LateralityCollection Method / VolumeCollection Time Received Time07/13/2025 6:55 PM EDT Impressions [facility] - 07/14/2025 12:42 PM EDT Normal sinus rhythm Normal ECG No previous ECGs available Confirmed by Rigoberto SIERRA RAVISANKAR ([id number]) on 07/14/2025 12:42:44 PM Narrative [facility] - 07/14/2025 12:42 PM EDT NAME : KARUNA REYNAGA PID : [id number] : 1945 Gender : Female Race : ORD : Procedure Date : Jul 13 2025 18:55:10 Edit Date : Jul 14 2025 12:42:50 Diagnosis: Normal sinus rhythm Normal ECG No previous ECGs available Confirmed by Rigoberto SIERRA RAVISANKAR ([id number]) on 07/14/2025 12:42:44 PM Test Reason : Location : 301 : PACC ?? Overread By : Rigoberto SIERRA RAVISANKAR Edited By : Rigoberto SIERRA RAVISANKAR Referred By : melissa enriquez md Acquired by : am, Authorizing ProviderResult TypeResult StatusCcf ProviderCARDIOLOGY_MEFinal ResultPerforming OrganizationAddressCity/State/ZIP CodePhone Number [facility] [address] [facility] [place] [address], * HEARING TEST/AUDIOGRAM (07/10/2025 3:50 PM EDT) Narrative Authorizing ProviderResult TypeResult StatusLiantwan Sanchez AUDREFERRALFinal Result * PT ED PATIENT INFORMATION (07/08/2025) Only the most recent of2 resultswithin the time period is included. Specimen (Source)Anatomical Location / LateralityCollection Method / Volume Collection TimeReceived Time07/08/2025 Narrative [facility] - 08/08/2025 Provider LAUREN your patient KARUNA REYNAGA has not started their [facility] program, time has . [facility] program: PATIENT SAFETY INSTRUCTIONS FOR HEALTHCARE SETTINGS Authorizing ProviderResult TypeResult StatusMelissa Enriquez MDEMMIFinal ResultPerforming OrganizationAddressCity/State/ZIP CodePhone Number [facility] * EXTERNAL IMAGING (06/12/2025 12:18 PM EDT)Anatomical RegionLateralityModality Other Narrative Authorizing ProviderResult TypeResult StatusExternal Provider PA-CRADIOLOGYFinal Result from Last [address] [place] [address] Advance Directives * Full Code (Latest Code Status on File) Date ActivatedDate InactivatedComments07/24/2025 5:04 PM07/25/2025 5:58 PMQuestion AnswerCommentsFull Code Order Discussed With:* Patient and Surrogate Decision Maker Care Teams Team MemberRelationshipSpecialtyStart DateEnd Gildardo Yanez MD [address] [place] [address] PCP - GeneralInternal Medicine06/10/25 Jose Luis Montes APRN [address] [place] [address] Family Medicine06/16/25
--- NOTE | 2025-08-31 14:02 | MM_ITS ---
Patient Name: NAT REYNAGA MR#: [id number] : 1945 Exam Date: 08/31/2025 Ordering Doctor: DAYNE [facility] REPORT PROCEDURE: MM SCREENING MAMMO BI COMPARISON: MM TOMOSYNTHESIS SCREENING BI, 04/11/2024. MM TOMOSYNTHESIS SCREENING BI, 04/06/2023. MG MAMM SCREEN 3D RUPAL CAD, 03/27/2022. MG MAMM SCREEN RUPAL W CAD, 09/06/2015. INDICATIONS: screening Calculator Name NCI Breast Cancer Risk Assessment Tool 5 Year Breast Cancer Risk 1.60% Lifetime Breast Cancer Risk 2.60% Personal Breast Cancer No Personal Ovarian Cancer No Treatments None Family Cancers None LOCATION: [facility] BREAST COMPOSITION: The breasts are almost entirely fatty. FINDINGS: RIGHT BREAST: No significant suspicious finding. LEFT BREAST: No significant suspicious finding. Vascular calcifications.kkkk DIAGNOSTIC CATEGORY 1--NEGATIVE. RECOMMENDATIONS: ROUTINE MAMMOGRAM AND CLINICAL EVALUATION IN 12 MONTHS. Dictated by: Jamal Bird DO on 08/31/2025 at 15:17 Approved by: Jamal Bird DO on 08/31/2025 at 15:18
--- OUTSIDE RECORDS SUMMARY | 2025-08-31 14:15 | XMS_ITS | CCD ---
Author Organization [facility] Inform ion Partnership [facility] Care Team Providers Care Mental Health Program Manager Name Role Phone Jamal Alvarez Unavailable Unavailable Unavailable Kostas Vance DO Primary Care Provider [phone] Kostas Vance DO Primary Care Provider DO Jamal Alvarez Primary Care Provider DO Hermes Kennedy Attending Provider DIAB ., BRUCE Admitting Unavailable MACK ., BRUCE Attending Unavailable DR JAMAL ALVAREZ Primary Care Unavailable DIAB ., BRUCE Consulting Unavailable ANTONIO, DR BERRY Admitting Unavailable DR JAMAL ALVAREZ Attending Unavailable QUINTIN LEROY Primary Care Unavail able DR JEANETH ECHOLS V Consulting Unavailable DR JAMAL ALVAREZ Consulting Unavailable DR JAMAL ALVAREZ Admitting Unavailable DR JAMAL ALVAREZ Attending Unavailable QUINTIN LEROY Primary Care Unavail able DR JAMAL ALVAREZ Consulting Unavailable DO Jamal Alvarez Primary Care Provider MD Valdez Castro Attending Provider [phone] DO Jamal Alvarez Attending Provider Jamal Alvarez DO Primary Care Provider DO Jamal Alvarez Primary Care Provider DO Jamal Alvarez Attending Provider CORNELIUS Pearce Attending Provider [phone] DO Jamal Alvarez Primary Care Provider DO Jamal Alvarez Attending Provider TEAGAN Lockhart Attending Provider [phone] Jmaal Alvarez DO Primary Care Provider Jamal Alvarez DO Primary Care Provider MD Ciro Navarro Emergency Provider DO Albert Palacio Admit Provider DO Albert Palacio Attending Provider [phone] MD Renan Murguia Attending Provider [phone] TEAGAN Freeman Other Provider Unavailable DO Vic Hess Other Provider MD Gilbert Cruz Other Provider MD Jeanne Luu Other Provider MD Sukhwinder Luu Other Provider MD Oleg Milton Other Provider ROSELYN Navarro Other Provider MD Judit Lora Other Provider MD Mireille Jorge Nalindsey Other Provider MD Anthony Riddle Other Provider Chris [facility] Emilee Tineo Other Provider [phone] DO Andry Nugent Other Provider MD Flex Ramos Attending Provider DO Jamal Alvarez Primary Care Provider DO Jamal Alvarez Attending Provider MD Valdez Castro Attending Provider [phone] Jamal Alvarez DO Primary Care Provider Saul Abdalla DO Unavailable Irina Dubose MD Unavailable Valdez Castro MD Unavailable Flex Ramos MD Unavailable Judit Lora MD Unavailable Jamal Alvarez DO Primary Care Provider [phone] Valdez Castro MD Attending Provider [phone] JUDIT LORA Attending Unavailable JAMAL ALVAREZ Primary Care Unavailable JUDIT LORA Attending Unavailable JUDIT LORA Referring Unavailable JAMAL ALVAREZ Primary Care Unavailable Judit Lora MD Unavailable Jamal Alvarez DO Primary Care Provider Valdez Castro MD Attending Provider [phone] Jamal Alvarez DO Attending Provider Valdez Castro MD Other Provider Rachel IVY, Imad Unavailable Jamal Alvarez DO Primary Care Provider Loraine Mccallum MD Emergency Provider Matias Valdez DO Admit Provider Matias Valdez DO Attending Provider Renan Murguia MD Attending Provider Renan Murguia MD Other Provider Praveena Garcia MD Attending Provider [phone] Rachel IVY, Imroni Attending Provider [phone] Rachel IVY, Imad Other Provider Jamal Alvarez DO Attending Provider Jamal Alvarez DO Primary Care Provider Vimal Burton MD Primary Care Provider Jamal Alvarez DO Attending Provider [phone] Jamal Alvarez Primary Care Unavailable Asaad, Imad [...] Alvarez Attending Unavailable Jamal Alvarez Attending Unavailable Moarmando Valdez F Consulting Unavailable Jamal Alvarez Admitting Unavailable Jamal Alvarez Primary Care Unavailable Moosa, Valdez F Admitting Unavailable Moarmando, Valdez F Attending Unavailable Jamal Alvarez Primary Care Unavailable Jamal Alvarez DO Primary Care Provider Vimal Burton MD [facility] Provider Simon VICE PRESIDENT OF COMMUNICATIONSCourtney Unavailable Simon VICE PRESIDENT OF COMMUNICATIONSCourtney John Unavailable [facility] Unavailable SOHAIL WILLIAM Attending Unavailable SELF Referring Unavailable [facility] Unavailable ANASTASIA KRAUS Attending Unavailable [facility] Unavailable HUMBLE SIMEON Attending Unavailable [facility] Unavailable LAUREN, MARGO Referring Unavailable [facility] Unavailable LAUREN, MARGO Attending Unavailable JAMAL ALVAREZ ONEIL [facility] Unavailabl SOHAIL Koroma S Attending Unavailable SELF Referring Unavailable JAMAL ALVAREZ [facility] Unavailabl e CHECOCSOHAIL S Attending Unavailable JAMAL ALVAREZ [facility] Unavailabl QUINTIN Hunt Attending Unavailable JAMAL ALVAREZ [facility] Unavailabl e LAUREN, MARGO Attending Unavailable [facility] Unavailable LAUREN, MARGO Attending Unavailable LAUREN, MARGO Admitting Unavailable Gracy IVY, Irina Cadena Unavailable Matthew IVY, Valdez Unavailable Rachel IVY, Imad Unavailable Judit Lora MD Unavailable JAMAL ALVAREZ Attending Unavailable JAMAL ALVAREZ Attending Unavailable JAMAL ALVAREZ Referring Unavailable PATRICIA BARRY Attending Unavailable DEE JACKSON Attending Unavailable COURTNEY LOCKHART Referring Unavailable COURTNEY LOCKHART Attending Unavailable COURTNEY LOCKHART Referring Unavailable VIMAL BURTON Referring Unavailable LUIS F HERNDON Referring Unavailable Allergies Allergy ClassificationReported Allergen(s)Allergy TypeDate of OnsetReaction(s) FacilityBenzodiazepines (2 sources)MidazolamDrug Bntywad72-67-1406Odrdri Status ChangeOhiohealth Mansfield HospitalBerries (1 source)StrawberryFood Wbpbfcw39-22-8909JrikIdqwznmhx ClinicLatex (1 source)LatexSubstance Stshnyb52-02-9511KchrOkxanpuvp ClinicOpioid Agonists (2 sources)CodeineDrug Eflfxcs12-14-6281Lzdnx: See CommentsOhiohealth Mansfield HospitalPenicillins (antibiotic) (1 source)PenicillinsDrug Rmdvfgo83-87-4344ZzmlQinasbaki Clinicstrawberry allergenic extract (1 source)strawberry allergenic extractDrug Oatwqko54-04-3452MfmewnWovpvaexdUniversity Hospitals Cleveland Medical Centerulfonamides (antibiotic) (2 sources)Sulfonamides (Antibiotic)Drug Yoqaige69-37-0664DuegHmbaqrqyfLicking Memorial Hospital (20 sources)Codeine; Translations: [codeine]Drug Jygsjuk87-39-8821Tepsqen [facility] (7 sources)Penicillins; Translations: [Penicillins]Allergy to drug (finding) 87-38-6730JsugVJShannon Ville [address] Repository (20 sources)Propoxyphene; Translations: [propoxyphene]Drug Szrdlie04-20-2847 Other: See [facility] (3 sources)Sulfamethoxazole; Translations: [sulfa]Drug AllergyKimberly Ville [address] DO Work Phone: (20 sources)Latex; Translations: [LATEX]Propensity to adverse reactions 10-53-1910WzsvRlnqqkubt Clinic (1 source)PenicillinsPropensity to adverse nwwuemfgs39-47-8435GxreAihabwexk Clinic (20 sources)Gabbs; Translations: [STRAWBERRIES]Propensity to adverse nzeauszdc86-82-4381CxjfWimeyvess Clinic (20 sources)Sulfonamides (Antibiotic); Translations: [SULFA (SULFONAMIDE ANTIBIOTICS)]Propensity to adverse nbcgxihpk17-67-5299FbtoBrogpwpyv Clinic (20 sources)Propoxyphene N-Acetaminophen; Translations: [PROPOXYPHENE N-ACETAMINOPHEN]Drug Tctfojm83-54-1792NdrfXscglqtam Clinic (20 sources)PenicillinsPropensity to adverse tuamsygmh55-79-2465XomsIlciipigl Clinic (20 sources)strawberry allergenic extractDrug Ymiqkqo85-29-3129ZxdpvxAciuawmueOhioHealth [facility] (1 source)PenicillinsDrug allergy (disorder)[facility] Repository (1 source)Sulfonamides (Antibiotic)Drug allergy (disorder)[facility] Repository (20 sources)Midazolam; Translations: [MIDAZOLAM]Drug Qpareeq19-93-7025Msxckb Status Change, HallucinationsOhiohealth Mansfield Hospital (20 sources)opiatesPropensity to adverse twuehpjjg12-17-9175QcjcdzvnvXqdwidssxDayton [facility] Hospital (20 sources)Morphinan opioid; Translations: [OPIOIDS - MORPHINE ANALOGUES]Drug Oadssar15-01-2776Jqdmls Status Change, Unknown, HallucinationsSelect [facility] [place] (20 sources)LatexPropensity to adverse wsdjakaqn72-28-9986OtflICCQ Healthcare (20 sources)PenicillinsDrug Fdeksmp86-18-7949OaitIMKH Healthcare (20 sources)OtherAllergy to obklgxgqy88-58-9310CiciALDH Healthcare (12 sources)PenicillinsPropensity to adverse bdnyrlrug03-79-9109DcudWlqwapwmp Clinic (3 sources)diphenhydrAMINEDrug Ethzqlk46-74-0828LjrqeworqxtpAjkudkhaaOhioHealth [facility] (3 sources)MetoclopramideDrug Awmlbrp13-42-0732DericateVkdmzlowmMercy Memorial Hospital Medications Current Medications MedicationDrug Class(es)DatesSig (Normalized)Sig (Original)[id number] 200 actuat albuterol 0.09 mg/actuat metered dose inhaler (20 sources)beta2-Adrenergic AgonistStart: 00-27-9363zamg 2 puff(s) by inhalation every four hours for wheezingalbuterol HFA 90 mcg/act inhaler Indications: Pulmonary fibrosis (HCC) Inhale 2 puffs every 4 (four) hours if needed for wheezing or shortness of breath 18 g 3 04/30/2025 ActiveStart: 69-68-9139lwac 2 puff(s) by inhalation every four hours as neededalbuterol HFA (PROVENTIL HFA, VENTOLIN HFA) 90 mcg/actuation inhaler Inhale 2 puffs as instructed every 4 hours as needed. 04/30/2025 ActiveStart: 56-35-0058oywu 2 puff(s) by mouth every four hours as neededalbuterol HFA 90 mcg/act inhaler Indications: Pulmonary fibrosis (CMS/HCC) INHALE 2 PUFFS BY MOUTH EVERY 4 HOURS NEEDED 8.5 g 03/17/2025 ActiveStart: 55-55-2647uwfq 2 puff(s) by inhalation every four hours as neededalbuterol HFA (Ventolin HFA) 90 mcg/act inhaler Indications: Pulmonary fibrosis (CMS/HCC) 2 puffs Inhalation every 4 hrs as needed for 30 days 18 g 3 03/10/2024 Active End: 87-73-2510bwfawbvno sulfate 90 mcg/actuation aebs Inhale as instructed. 12/28/2023 Discontinuedtake 2 puff(s) by inhalation every four hours as needed albuterol 90 mcg/actuation inhaler 2 puffs Inhalation every 4 hrs as needed for 30 days ActiveVentolin HFA 108 (90 Base) MCG/ACT Inhalation Aerosol Solution As directed. Quantity: 0 Refills: 0 Ordered: 21-Oct-2021 DO ActiveComment on above: Inhale as instructed.albuterol 0.833 mg/ml / ipratropium bromide 0.167 mg/ml inhalation solution (20 sources)Anticholinergic, beta2-Adrenergic AgonistStart: 87-50-1788admo 1 dose by inhalation every four hours as needed for wheezingipratropium-albuterol (DUONEB) 0.5 mg-3 mg(2.5 mg base)/3 mL nebu Inhale contents of 1 vial via nebu lizer as instructed every 4 hours as needed for wheezing/shortness of breath. 360 mL 03/18/2025 ActiveStart: 05-05-2024 End: 80-24-5190hbkw 3 mL by inhalation every four hours as neededipratropium- albuterol (DUONEB) 0.5 mg-3 mg(2.5 mg base)/3 mL nebu Inhale 3 mL as instructed every 4hours as needed for wheezing/shortness of breath. 360 mL 2 05/05/2024 03/18/2025 DiscontinuedStart: 06-29-2020 End: 79-60-5128mpkk 3 mL by inhalation every six hours as neededipratropium- albuterol (DUONEB) 0.5 mg-3 mg(2.5 mg base)/3 mL nebu Inhale 3 mL as instructed every 6hours as needed. 90 Vial 5 06/29/2020 12/28/2023 DiscontinuedStart: 40-32-3039Vvalaxcgirw-Albuterol 0.5-2.5 (3) MG/3ML Inhalation Solution As directed. Quantity: 0 Refills: 0 Ordered: 27-Oct-2020 DO Start : 29-Jun-2020 Activeipratropium-albuterol (Duo-Neb) 0.5-2.5 mg/3 mL nebulizer solution Take 3 mL by nebulization every 6 (six) hours if needed for wheezing or shortness of breath ActiveComment on above:Inhale 3 mL as instructed every 6 hours as needed. azithromycin 250 mg oral tablet (20 sources)Macrolide AntimicrobialStart: 38-46-5288kbic 1 tablet by mouth every other dayazithromycin (Zithromax) 250 MG tablet Take 250 mg by mouth every other day Sunday, Sunday, Sunday06/01/2025 ActiveStart: 49-62-3530umaj 1 tablet by mouth onceazithromycin (ZITHROMAX) 250 mg tablet Indications: Bronchiectasis without complication (HCC) Take 1 tablet by mouth every Sunday, Sunday, and Sunday. 30 tablet 1 06/01/2025 ActiveStart: 05-05-2024 End: 38-82-2588varb 1 tablet by mouth onceazithromycin (ZITHROMAX) 250 mg tablet Indications: Bronchiectasis without complication (HCC) Take 1 tablet by mouth every Sunday, Sunday, and Sunday. 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 06/25/2025 ActiveCalcium (20 sources)Phosphate Binder, CalciumStart: 71-82-0556VPGJOIT 500 MG TAB Take one(1) tablet twice daily. 0 06/29/2009 ActiveComment on above:Take one(1) tablet twice daily.cannabidiol 100 mg/ml oral solution (20 sources)Start: 56-90-6496vzcwqxhxzxg (EPIDIOLEX) 100 mg/mL oral liquid 2 ml by mouth two times daily Patient should start onSeptember 18, 2025. 360 mL 1 09/18/2025 ActiveStart: 72-86-2439wzqkmyeteka (EPIDIOLEX) 100 mg/mL oral liquid 2 ml by mouth two times daily Patient should start onSeptember 18, 2025. 360 mL 1 09/18/2025 ActiveStart: 32-55-1950yxbxtkhdeau (EPIDIOLEX) 100 mg/mL oral liquid 2 ml by mouth two times daily Patient should start onSeptember 18, 2025. 360 mL 1 09/18/2025 ActiveStart: 69-55-7298kvhiaxfiqqg (EPIDIOLEX) 100 mg/mL oral liquid 2 ml by mouth two times daily Patient should start onSeptember 18, 2025. 360 mL 1 09/18/2025 ActiveStart: 71-94-2283djkxidutdhs (EPIDIOLEX) 100 mg/mL oral liquid 2 ml by mouth two times daily Patient should start onSeptember 18, 2025. 360 mL 1 09/18/2025 ActiveStart: 99-05-7787ggtldpoemlr (EPIDIOLEX) 100 mg/mL oral liquid 2 ml by mouth two times daily Patient should start onSeptember 18, 2025. 360 mL 1 09/18/2025 ActiveStart: 12-24-2024 End: 41-55-9907kwis 2 mL by mouth twice dailyEpidiolex 100 MG/ML solution Take 2 mL by mouth two times a day. 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 0 06/29/2009 ActiveComment on above:Take one(1) tablet daily.estradiol 0.1 mg/ml vaginal cream (20 sources)EstrogenStart: 46-18-5874aptfhvbox (Estrace) 0.1 MG/GM vaginal cream Indications: Atrophic vaginitis Insert 1 g into the vagina 2 (two) times a week 42.5 g 3 09/01/2024 ActiveStart: 12-26-2022 End: 97-63-5256Jmtaqgvcz 0.01 % (0.1 mg/gram) cream Discontinued 1 APPLICATOR VAGINAL Daily December 26, 2022 1:00am April 13, 2024 5:20pmStart: 06-11-2020 End: 20-39-5697cmyznflpq (ESTRACE) 0.01 % (0.1 mg/gram) vaginal cream Use 1 g vaginally. 06/11/2020 ActiveStart: 06-11-2020 End: 87-57-9155cidzdxlrj (Estrace) 0.01 % (0.1 mg/gram) vaginal cream Insert 0.25 Applicatorfuls (1 g) into the vagina 2 times a week. 06/11/2020 05/16/2024 ActiveStart: 72-81-8290Irxxgpdev 0.1 MG/GM Vaginal Cream USE DIRECTED. Quantity: 0 Refills: 0 Ordered: 27-Oct-2020 DO Start : 11-Jun-2020 ActiveComment on above:Use 1 g vaginally.fluconazole 150 mg oral tablet (4 sources)Azole AntifungalStart: 05-05-2024 End: 56-16-4498zkya 1 tablet by mouth oncefluconazole (DIFLUCAN) 150 mg tablet Indications: Yeast infection Take 1 tablet by mouth one time only for 1 dose. 1 tablet 0 05/05/2024 05/05/2024 ActiveStart: 05-96-8408dqna 1 tablet by mouth once dailyFluconazole 150 MG Oral Tablet TAKE 1 TABLET DAILY DIRECTED. Quantity: 0 Refills: 0 Ordered: 17-Jul-2021 DO Start : 17-Jul-2021 Active fluticasone propionate 0.05 mg/actuat metered dose nasal spray (19 sources)CorticosteroidStart: 05-20-2025 End: 72-65-7011ndig 2 spray(s) nasal route once dailyfluticasone (Flonase) 50 MCG/ACT nasal spray Indications: OME (otitis media with effusion), right Ad senior patrol agent 2 sprays into each nostril Daily Shake gently. Before first use, prime pump. After use, clean tip and replace cap. 48 g 3 05/20/2025 05/20/2026 Active Start: 05-20-2025 End: 31-34-5767rqwn 2 spray(s) nasal route twice dailyfluticasone (FLONASE) 50 mcg/actuation nasal spray Use 2 sprays in each nostril two times a day. 05/20/2026 ActiveStart: 67-44-6534fvkjbndzlyt (Flonase) 50 MCG/ACT nasal spray Indications: OME (otitis media with effusion), right 2sprays on the right side 2 times daily. Shake gently. Before first use, prime pump. After use, clean tip and replace cap. 48 g 3 05/20/2025 Activefurosemide 20 mg oral tablet (20 sources)Loop DiureticStart: 03-10-2024 End: 19-22-3679fsmo 0.5 tablet by mouth once dailyfurosemide (Lasix) 20 MG tablet Indications: Edema, unspecified type Take 0.5 tablets (10 mg) by mouth Daily 90 tablet 1 03/05/2025 ActiveStart: 03-10-2024 End: 68-94-9768vndl 10 mg by mouth once dailyfurosemide (LASIX) 20 mg tablet Take 10 mg by mouth once daily. 03/10/2024 Activeibandronic acid 150 mg oral tablet (20 sources)BisphosphonateStart: 39-68-8547kmej 1 tablet by mouth every 30 days in the morningibandronate (Boniva) 150 MG tablet Indications: Senile osteoporosis Take 1 tablet (150 mg) by mouthevery 30 (thirty) days Take in morning with full glass of water on an empty stomach. No food, drink, meds, or lying down for 60 minutes after. 3 tablet 3 07/23/2025 ActiveStart: 11-05-2019 Ibandronate 150 mg tablet Take 1 tablet by mouth. 11/05/2019 ActiveStart: 66-76-0923sbga 1 tablet by mouth every monthIbandronate Sodium 150 MG Oral Tablet TAKE 1 TABLET BY MOUTH ONCE A MONTH Quantity: 3 Refills: 0 Ordered: 09-Aug-2021 DO Start : 16-Feb-2021 ActiveComment on above:Take 1 tablet by mouth. liothyronine sodium 0.005 mg oral tablet (20 sources)l-TriiodothyronineStart: 97-39-2481pqac 1 tablet by mouth every twelve hoursliothyronine (CYTOMEL) 5 mcg tablet Take 1 tablet by mouth every 12 hours. 10/25/2023 ActiveStart: 42-80-5538oznk 1 tablet by mouth once daily in the morningStart: 52-49-3909ydal 1 tablet by mouth twice dailyLiothyronine 5 mcg tablet Active 5 MCG PO Twice daily December 26, 2022 1:00amComment on above: Take 1 tablet by mouth every 12 hours.loperamide hydrochloride 2 mg oral capsule (20 sources)Opioid AgonistStart: 10-17-2021 End: 15-81-0667itom 1 capsule by mouth once daily in the morning as needed LOPERAMIDE HCL PO Daily as needed ActiveLOPERAMIDE HCL PO Daily as needed. ActiveComment on above:Every morningMULTIVITAMIN TAB (20 sources)Start: 00-72-7044KJTSLNPOAOAD TAB Take one(1) tablet daily. 0 06/29/2009 ActiveComment on above:Take one(1) tablet daily.Nebulizer and Compressor For Neb (2 sources)Start: 02-15-2024 End: 76-22-7817Zhywnnpgw and Compressor For Neb 1 Each as needed for up to 1 day. Use as directed. 1 Each 0 02/15/2024 02/16/2024 ActiveComment on above:1 Each as needed for up to 1 day. Use as directed.nitrofurantoin, macrocrystals 25 mg / nitrofurantoin, monohydrate 75 mg oral capsule (20 sources)Nitrofuran AntibacterialStart: 31-60-4070uotamjtcdztzyb monohydrate and macrocrystal (MACROBID) 100 mg capsule Take 100 mg by mouth every 48hours. 04/21/2025 ActiveStart: 03-14-2025 End: 37-98-2250dbgj 1 capsule by mouth every other day as needednitrofurantoin, macrocrystal-monohydrate, (Macrobid) 100 MG capsule Indications: Urinary tract infection without hematuria, site unspecified Take 1 capsule (100 mg) by mouth every other day And PRN as needed 60 capsule 3 04/21/2025 ActiveStart: 04-22-2024 End: 53-81-5652frgx 1 capsule by mouth every other daynitrofurantoin, macrocrystal-monohydrate, (Macrobid) 100 MG capsule Indications: Recurrent UTI Take1 capsule (100 mg) by mouth every other day 90 capsule 1 03/05/2025 Active omeprazole 40 mg delayed release oral capsule (20 sources)Proton Pump InhibitorStart: 08-09-2021 End: 16-67-5053tglt 1 capsule by mouth before mealtimeomeprazole (PriLOSEC) [address] capsule Indications: Gastroesophageal reflux disease without esophagitis Take 1 capsule (40 mg) by mouth in the morning. Take before meals. Do not crush or chew. 90 capsule 3 04/02/2025 04/02/2026 ActiveComment on above:Take by mouth at bedtime as needed.24 hr oxybutynin chloride 5 mg extended release oral tablet (20 sources)Cholinergic Muscarinic AntagonistStart: 21-40-1767mjzu 1 tablet by mouth every twenty-four hours at bedtimeoxybutynin XL (Ditropan-XL) 5 MG 24 hr tablet Indications: OAB (overactive bladder) Take 1 tablet (5 mg) by mouth at bedtime 90 tablet 3 04/02/2025 ActiveStart: 02-22-2024 End: 42-03-4595wkcl 1 tablet by mouth every twenty-four hours at bedtime oxybutynin XL (Ditropan-XL) 5 MG 24 hr tablet Indications: OAB (overactive bladder) TAKE 1 TABLET BY MOUTH AT BEDTIME 30 tablet 05/15/2024 ActiveStart: 01-14-2321ogwj 1 tablet by mouth once dailyoxybutynin XL (DITROPAN XL) 5 mg 24 hr tablet Take 5 mg by mouth once daily. 11/05/2023 ActiveStart: 10-17-2021 End: 79-48-2311gckd 1 tablet by mouth once daily at bedtimeOxybutynin Chloride (Ditropan Xl) 10 mg Tablet Extended Release 24hr Discontinued 10 MG PO Daily at bedtime October 17, 2021 1:00am February 22, 2024 9:16amStart: 10-96-5073ymle 1 tablet by mouth every twenty-four hours at bedtimeOxybutynin Chloride ER 10 MG Oral Tablet Extended Release 24 Hour TAKE 1 TABLET BY MOUTH AT BEDTIMEQuantity: 90 Refills: 0 Ordered: 01-Aug-2021 DO Start : 31-Jan-2021 ActiveStart: 06-29-2009 End: 64-13-0246IGEFYUQOIZ CHLORIDE 5 MG/5 ML SYRUP Take one(1) tablet two(2) times daily. 0 06/29/2009 03/03/2024 DiscontinuedComment on above:Take one(1) tablet two(2) times daily.OZEMPIC 1 mg/dose (4 mg/3 mL) pen (7 sources)inject 1 mg by subcutaneous injection every weekOZEMPIC 1 mg/dose (4 mg/3 mL) pen Inject 1 mg subcutaneously one time a week. Activepregabalin 25 mg oral capsule (12 sources)Start: 08-21-2025 End: 97-84-7712pkvt 1 capsule by mouth at bedtimepregabalin (Lyrica) 25 MG capsule Indications: Lumbar radiculopathy, right Take 1 capsule (25 mg) by mouth at bedtime 90 capsule 08/21/2025 08/21/2026 ActiveStart: 04-21-2024 End: 58-70-8924wdws 1 capsule by mouth in the morningpregabalin (Lyrica) 75 MG capsule Indications: Seizure (CMS/HCC) Take 1 capsule (75 mg) by mouth inthe morning and 1 capsule (75 mg) before bedtime. 60 capsule 2 04/21/2024 03/05/2025 Discontinued (Therapy completed)Semaglutide (3 sources)Start: 23-66-4568cxaxmm 1 mg by subcutaneous injection every week Start: 49-41-4270nkgmtg 1 mg by subcutaneous injection every weekSemaglutide (Ozempic) 1 mg/dose (4 mg/3 mL) pen injector Active 1 MG SUBCUT every week April 17, 2025 12:00am Complies with drug therapysemaglutide (Ozempic) 4 MG/3ML solution pen-injector (4 sources)Start: 40-58-9848nmcpjk 1 mg by subcutaneous injection every week semaglutide (Ozempic) 4 MG/3ML solution pen-injector Indications: Type 2 diabetes mellitus with other specified complication, without long-term current use of insulin ([facility]) Inject 1 mg under the skin 1 (one) time per week 3 mL 5 04/22/2024 Activesemaglutide (Ozempic, 1 MG/DOSE,) 4 MG/3ML solution pen-injector (20 sources)Start: 45-96-6480lplnzf 1 mg by subcutaneous injection every week semaglutide (Ozempic, 1 MG/DOSE,) 4 MG/3ML solution pen-injector Indications: Type 2 diabetes mellitus with other specified complication, without long-term current use of insulin ([facility]) INJECT 1 MG SUBCUTANEOUSLY ONCE A WEEK 9 mL 3 09/26/2024 ActiveStart: 25-62-9096svjxkv 1 mg by subcutaneous injection every weeksemaglutide (Ozempic, 1 MG/DOSE,) 4 MG/3ML solution pen-injector Indications: Type 2 diabetes mellitus with other specified complication, without long-term current use of insulin INJECT 1 MG SUBCUTANEOUSLY ONCE A WEEK 9 mL 3 09/26/2024 Activesimvastatin 20 mg oral tablet (20 sources)HMG-CoA Reductase InhibitorStart: 96-23-7758zjak 1 tablet by mouth at bedtimesimvastatin (Zocor) 20 MG tablet Indications: Mixed hyperlipidemia Take 1 tablet (20 mg) by mouth at bedtime 90 tablet 3 07/23/2025 ActiveStart: 05-15-2024 End: 64-05-3588otnd 1 tablet by mouth at bedtimesimvastatin (Zocor) 20 MG tablet Indications: Mixed hyperlipidemia Take 1 tablet (20 mg) by mouth at bedtime 90 tablet 3 08/06/2024 ActiveStart: 02-16-2021 End: 24-93-7671chqi 1 tablet by mouth once daily at bedtimeSimvastatin 20 mg tablet Discontinued 20 MG PO Daily at bedtime October 17, 2021 1:00am February 21, 2024 10:48amStart: 05-23-2020 End: 79-86-8106zgcc 1 tablet by mouth once daily at bedtimesimvastatin (ZOCOR) 40 mg tablet Take 40 mg by mouth daily at bedtime. 05/23/2020 12/28/2023 Discont inuedComment on above:Take 40 mg by mouth daily at bedtime. Completed/Discontinued Medications MedicationDrug Class(es)DatesSig (Normalized)Sig (Original)24 hr buPROPion hydrochloride 150 mg extended release oral tablet (13 sources)AminoketoneStart: 04-13-2024 End: 86-19-2547ozdm 1 tablet by mouth once dailyBupropion Hcl (Wellbutrin Xl) 150 mg tablet extended release 24 hr Discontinued 150 MG PO Daily April 13, 2024 12:00am March 14, 2025 1:41amcalcium carbonate 1250 mg / cholecalciferol 125 unt oral tablet (20 sources)Vitamin DStart: 10-17-2021 End: 25-11-1750fvew 1 tablet by mouth once daily as neededCalcium Carbonate- Vitamin D3 500 mg-3.125 mcg (125 unit) Tablet Discontinued 1 TAB PO Daily as needed for low milk intake October 17, 2021 1:00am January 09, 2023 11:55am Carboxymethylcell-Glycerin(Pf) (Refresh Relieva Pf) 0.5-1 % dropperette (10 sources)Start: 04-13-2024 End: 70-58-1374Yfabjcrcmyrkkknrl-Glycerin(Pf) (Refresh Relieva Pf) 0.5-1 % dropperette Discontinued 1 DROPS EYE-BOTH Three times daily April 13, 2024 12:00am March 14, 2025 1:42amStart: 41-28-1577Ixbixyrskcacxnjob-Glycerin(Pf) (Refresh Relieva Pf) 0.5-1 % dropperette Active 1 DROPS EYE-BOTH Three times daily April 12, 2024 11:00pmStart: 84-47-1070Zwvpfqxjowwfnwrwf-Glycerin(Pf) (Refresh Relieva Pf) 0.5-1 % dropperette Active 1 DROPS EYE-BOTH Three times daily April 13, 2024 12:00amcarboxymethylcellulose sodium 5 mg/ml / glycerin 9 mg/ml ophthalmic solution (3 sources)Non-Standardized Chemical AllergenStart: 04-13-2024 End: 77-70-7460Ydhdcgrttsjevhowx-Glycerin(Pf) (Refresh Relieva Pf) 0.5-1 % dropperette Discontinued 1 DROPS EYE-BOTH Three times daily April 13, 2024 12:00am March 14, 2025 1:42amcefpodoxime 200 mg oral tablet (4 sources)Cephalosporin AntibacterialStart: 03-15-2025 End: 97-09-7526wbag 1 tablet by mouth twice daily at mealtimeCefpodoxime 200 mg tablet Discontinued 200 MG PO Twice daily 08 09March 15, 2025 12:00am April 17, 2025 12:04pm must administer with a meal/food; start 03/16/25 eveningcephalexin 500 mg oral capsule (20 sources)Cephalosporin AntibacterialStart: 10-25-2021 End: 10-20-8770wofy 1 capsule by mouth twice dailyCephalexin 500 mg capsule Discontinued 500 MG PO Twice daily 18 05October 25, 2021 1:00am December 26, 2022 3:00pmcetirizine hydrochloride 10 mg oral tablet (6 sources)Histamine-1 Receptor Antagonist End: 77-17-4594keswoaxnom (ZyrTEC) 10 MG tablet Take by mouth 05/27/2025 Discontinueddesmopressin acetate 0.2 mg oral tablet (15 sources)Vasopressin Analog, Factor VIII ActivatorStart: 02-21-2024 End: 67-92-1470bvrj 1 tablet by mouth once daily at bedtimeDesmopressin 0.2 mg tablet Discontinued 0.2 MG PO Daily at bedtime February 21, 2024 12:00am April 5:20pmdiphenoxylate HCl/atropine (LOMOTIL ORAL) (7 sources) End: 39-22-3683hwxusalpqjath HCl/atropine (LOMOTIL ORAL) Take by mouth. 12/28/2023 Discontinued End: 54-61-5389ihnqftrqcsxyu HCl/atropine (LOMOTIL ORAL) Take by mouth. 0 12/28/2023 Discontinueddiphenoxylate HCl/atropine (LOMOTIL ORAL) Take by mouth. 0 ActiveComment on above:Take by mouth.docusate sodium 100 mg oral capsule (7 sources)Start: 06-29-2009 End: 02-54-0493xqtrcknj sodium(COLACE 100 MG CAP) Take one(1) tablet daily 0 06/29/2009 12/28/2023 DiscontinuedComment on above:Take one(1) tablet daily escitalopram 20 mg oral tablet (7 sources)Serotonin Reuptake InhibitorStart: 06-29-2009 End: 80-97-7500dmudwrnhlqki oxalate(LEXAPRO 20 MG TAB) Take one(1) tablet daily. 0 06/29/2009 12/28/2023 DiscontinuedComment on above:Take one(1) tablet daily. fexofenadine hydrochloride 180 mg oral tablet (20 sources)Histamine-1 Receptor AntagonistStart: 10-17-2021 End: 68-14-2288ynjq 1 tablet by mouth once dailyFexofenadine 180 mg Tablet Discontinued 180 MG PO Daily October 17, 2021 1:00am December 26, 2022 3:01pmhydrOXYzine hydrochloride 25 mg oral tablet (20 sources)AntihistamineStart: 08-16-2021 End: 87-38-1534fblc 1 tablet by mouth every eight hours as neededHydroxyzine Hcl 25 mg tablet Discontinued 25 MG PO Q8H as needed for Agitation October 17, 2021 1:00am February 21, 2024 10:47amStart: 47-68-3874decg 1 tablet by mouth once hydrOXYzine HCL (Atarax) 25 mg tablet Take 1 tablet (25 mg) by mouth 1 time. 08/16/2021 Activeketorolac tromethamine 5 mg/ml ophthalmic solution (18 sources)Nonsteroidal Anti-inflammatory Drug, Cyclooxygenase InhibitorStart: 04-13-2024 End: 15-36-5199nfpuyjawx (Acular) 0.5 % ophthalmic solution Three times daily 04/13/2024 08/25/2024 Discontinued (Therapy completed)Start: 04-13-2024 End: 21-99-0081velu 1 drop(s) into the eye(s) three times dailyKetorolac 0.5 % drops Discontinued 1 DROPS EYE-RIGHT Three times daily April 13, 2024 12:00am March 14, 2025 1:42amStart: 04-13-2024 End: 98-22-2654ofmy 1 drop(s) into the eye(s) three times dailyKetorolac 0.5 % drops Discontinued 1 DROPS EYE-RIGHT Three times daily April 13, 2024 12:00am March 14, 2025 1:42amStart: 21-78-3649biqk 1 drop(s) into the eye(s) three times dailyKetorolac Active 1 DROPS EYE-RIGHT Three times daily April 13, 2024 12:00am Start: 02-13-2024 End: 53-43-2136hxud 1 drop(s) into the eye(s) twice dailyketorolac (Acular) 0.5 % ophthalmic solution Administer 1 drop into affected eye(s) twice a day. 08/202403/14/2024 ActivelamoTRIgine 25 mg oral tablet (20 sources)Mood Stabilizer, Anti-epileptic AgentStart: 08-13-2024 End: 87-88-9473mcurKAQgtxh (LAMICTAL) 25 mg tablet take 1 qhs for 2 weeks, then 1 pill bid for two weeks, then 1 pill in AM, 2pill in PM for week, then 2 pills bid for 1 week, then 2 pill in AM, 3 pill in PM for week, then 3 pills bid and stay at that dose. 180 tablet 2 08/13/2024 06/24/2025 DiscontinuedlevETIRAcetam 250 mg oral tablet (12 sources)Start: 04-16-2024 End: 30-13-2649bvve 1 tablet by mouth twice dailyLevetiracetam 250 mg Tablet Discontinued 250 MG PO Twice daily 180 90 April 16, 2024 12:00am March 14, 2025 1:42amlevoFLOXacin 500 mg oral tablet (4 sources)Quinolone AntimicrobialStart: 02-24-2024 End: 98-62-4417dvre 1 tablet by mouth once dailylevoFLOXacin (Levaquin) 500 MG tablet Take 500 mg by mouth Daily 02/24/2024 08/25/2024 Discontinued(Therapy completed)levothyroxine sodium 0.075 mg oral tablet (20 sources)l-ThyroxineStart: 05-10-2021 End: 03-24-7426ndmu 1 tablet by mouth once daily in the morningLevothyroxine 75 mcg tablet Discontinued 75 MCG PO Every morning October 17, 2021 1:00am February 22, 2024 9:14amStart: 79-12-9535bhedwoovxgluz (SYNTHROID) 50 mcg tablet 50 mcg. 05/23/2020 ActiveComment on above:50 mcg.LORazepam 1 mg oral tablet (7 sources)BenzodiazepineStart: 06-29-2009 End: 59-20-5045dkltrpanj(ATIVAN 1 MG TAB) Take one(1) tablet daily at hs. 0 06/29/2009 12/28/2023 DiscontinuedComment on above:Take one(1) tablet daily at hs.lovastatin 40 mg oral tablet (7 sources)HMG-CoA Reductase InhibitorStart: 06-29-2009 End: 99-57-1481yhssoqynww(MEVACOR 40 MG TAB) Take one(1) tablet daily at bedtime. 0 06/29/2009 12/28/2023 DiscontinuedComment on above:Take one(1) tablet daily at bedtime.Multi Vitamin TABS (3 sources)Multi Vitamin TABS TAKE 1 TABLET DAILY. Quantity: 0 Refills: 0 Ordered: 21-Oct-2021 DO ActiveMultivitamin preparation (13 sources)Start: 10-17-2021 End: 43-48-0376xjxv 1 tablet by mouth once dailyMultivitamin Discontinued 1 TAB PO Daily October 17, 2021 1:00am December 26, 2022 3:02pmStart: 10-17-2021 End: 31-26-2536emkq 1 tablet by mouth once dailyMultivitamin Discontinued 1 TAB PO Daily October 17, 2021 12:00am December 26, 2022 2:02pmMultivitamin Tablet (8 sources)Start: 10-17-2021 End: 04-50-3892bffz 1 tablet by mouth once dailyMultivitamin Tablet Discontinued 1 TAB PO Daily October 17, 2021 1:00am December 26, 2022 3:02pmStart: 10-17-2021 End: 94-09-1976dwfz 1 tablet by mouth once dailyMultivitamin Tablet Discontinued 1 TAB PO Daily October 17, 2021 12:00am December 26, 2022 2:02pmofloxacin 3 mg/ml ophthalmic solution (18 sources)Quinolone AntimicrobialStart: 04-13-2024 End: 43-33-0730rzsx 0.3 drop(s) into the eye(s) twice dailyOfloxacin 0.3 % drops Discontinued 1 DROPS EYE-RIGHT Twice daily April 13, 2024 12:00am March 14, 2025 1:43amStart: 04-13-2024 End: 44-84-0705sqhp 0.3 drop(s) into the eye(s) twice dailyOfloxacin 0.3 % drops Discontinued 1 DROPS EYE-RIGHT Twice daily April 13, 2024 12:00am March 14, 2025 1:43amStart: 02-98-5314hzqu 1 drop(s) into the eye(s) twice dailyOfloxacin Active 1 DROPS EYE-RIGHT Twice daily April 13, 2024 12:00amStart: 02-13-2024 End: 64-98-1643ekyr 1 drop(s) into the eye(s) five times dailyofloxacin (Ocuflox) 0.3 % ophthalmic solution Administer 1 drop into the right eye 5 (five) times aday 02/13/2024 08/25/2024 Discontinued (Therapy completed)Start: 55-84-2046xniv 1 drop(s) into the eye(s) five times dailyofloxacin (Ocuflox) 0.3 % ophthalmic solution Administer 1 drop into the right eye five times a dayfor 1 day Starting 1 day before surgery, continue after surgery as directed 02/13/2024 ActiveprednisoLONE acetate 10 mg/ml ophthalmic suspension (17 sources)CorticosteroidStart: 04-13-2024 End: 87-77-3172vxwdjxdsYNJD acetate (Pred-Forte) 1 % ophthalmic suspension Three times daily 04/13/2024 08/25/2024iscontinuedStart: 04-13-2024 End: 04-74-2863yghj 1 drop(s) into the eye(s) three times dailyPrednisolone Acetate (Pred Forte) 1 % drops,suspension Discontinued 1 DROPS EYE-RIGHT Three times daily April 13, 2024 12:00am March 14, 2025 1:44amStart: 04-13-2024 End: 82-12-9664usax 1 drop(s) into the eye(s) three times dailyPrednisolone Acetate (Pred Forte) 1 % drops,suspension Discontinued 1 DROPS EYE-RIGHT Three times daily April 13, 2024 12:00am March 14, 2025 1:44amsodium chloride 30 mg/ml inhalation solution (20 sources)Start: 04-21-2024 End: 80-11-0227vkaoll chloride 3 % nebulizer solution 04/21/2024 08/21/2025 DiscontinuedStart: 88-32-2549gkkjds chloride (NEBUSAL) 3 % nebulizer solution Use 2 mL via nebulizer two times a day. 360 mL 3 02/15/2024 Activesodium chloride 3 % nebulizer solution INHALE CONTENTS OF 1 VIAL (2MLS) VIA NEBULIZATION 2 TIMES A DAY ActiveComment on above:Use 2 mL via nebulizer two times a day.thymol/chlorophyllin (CHLOROPHYLL ORAL) (7 sources) End: 63-78-4814dtfhse/chlorophyllin (CHLOROPHYLL ORAL) Take by mouth. 12/28/2023 Discontinued End: 02-01-0590gscrrk/chlorophyllin (CHLOROPHYLL ORAL) Take by mouth. 0 12/28/2023 Discontinuedthymol/chlorophyllin (CHLOROPHYLL ORAL) Take by mouth. 0 ActiveComment on above:Take by mouth.tiZANidine 4 mg oral tablet (20 sources)Central alpha-2 Adrenergic AgonistStart: 10-17-2021 End: 83-15-5635nhwn 1 tablet by mouth twice daily as needed for muscle spasms Tizanidine (Zanaflex) 4 mg Tablet Discontinued 4 MG PO Twice daily as needed for muscle spasms October 17, 2021 1:00am February 21, 2024 10:48amStart: 04-11-2020 End: 35-63-0341okHERysxem HCl 4 mg capsule Take 4 mg by mouth. 04/11/2020 12/28/2023 DiscontinuedComment on above:Take 4 mg by mouth.traMADol hydrochloride 50 mg oral tablet (20 sources)Opioid AgonistStart: 10-25-2021 End: 23-43-2740lkqe 1 tablet by mouth every six hours as needed for painTramadol 50 mg tablet Discontinued 50 MG PO Q6H as needed for pain 8 2 October 25, 2021 1:00am February 21st, 2023 3:02pm Problems Active Problems Problem ClassificationProblemDateDocumented DateEpisodic/ChronicAbdominal pain (4 sources)Generalized abdominal pain; Translations: [Generalized abdominal pain]06-70-3022GhjqyyprYhfywqzv foot deformities (12 sources)Acquired hallux valgus; Translations: [Hallux valgus (acquired), unspecified foot]Onset: 784983-33-4378KexyscnYdwzf myocardial infarction (20 sources)Myocardial infarction; Translations: [Non-ST elevation (NSTEMI) myocardial infarction]Onset: 844323-97-2846KdyrqezFxzpbzqdmt pneumonitis; food/vomitus (2 sources)Aspiration pneumonitis; Translations: [Pneumonitis due to inhalation of food and vomit]46-49-9365KwhenifiNihqcju tract disease (2 sources)Biliary calculus; Translations: [Calculus of gallbladder without cholecystitis without obstruction]Onset: 225711-96-4824NdbdgbixYipvctec (20 sources)Bilateral age-related nuclear cataracts; Translations: [Age-related nuclear cataract, bilateral]Onset: 066001-63-3576MlwylyuIgjefgu obstructive pulmonary disease and bronchiectasis (20 sources)Bronchiectasis; Translations: [Bronchiectasis, uncomplicated]Onset: 365946-32-0882VswhzulFdpmqnt obstructive pulmonary disease and bronchiectasis (8 sources)Bronchitis, not specified as acute or chronic; Translations: [Bronchitis, not specified as acute orchronic]99-57-2971HjkiuwjmPciesptd atherosclerosis and other heart disease (20 sources)Acute coronary syndrome; Translations: [Acute ischemic heart disease, unspecified]Onset: 924588-52-1295WvjefdoOftoftze, dementia, and amnestic and other cognitive disorders (20 sources)Dementia associated with another disease; Translations: [Dementia in other diseases classified elsewhere without behavioral disturbance]Onset: 080363-45-0889YegicweYbnwlmwn mellitus with complications (20 sources)Disorder of nervous system due to type 2 diabetes mellitus; Translations: [Type 2 diabetes mellituswith other diabetic neurological complication]Onset: 87-78-5631HratlucFxprovnn mellitus without complication (9 sources)Type 2 diabetes mellitus; Translations: [Type 2 diabetes mellitus without complications]Onset: 600394-43-1791LzkhpayFkykxlev mellitus without complication (11 sources)Prediabetes; Translations: [Prediabetes]Onset: 482791-58-9060 EpisodicDisorders of lipid metabolism (20 sources)Mixed hyperlipidemia; Translations: [Mixed hyperlipidemia]Onset: 52-57-7288LxyrmocKahhlvtjkdypbh and diverticulitis (4 sources)Diverticular disease; Translations: [Diverticulosis of intestine, part unspecified, without perforation or abscess without bleeding]05-28-2025 ChronicEpilepsy; convulsions (16 sources)Epilepsy; Translations: [Localization-related (focal) (partial) symptomatic epilepsy and epileptic syndromes with complex partial seizures, intractable, without status epilepticus]Onset: 145902-34-3701Yjgzinh Esophageal disorders (20 sources)Gastroesophageal reflux disease; Translations: [Gastro-esophageal reflux disease without esophagitis]Onset: 121563-40-4365Joiwtgw Genitourinary symptoms and ill-defined conditions (20 sources)Urinary incontinence; Translations: [Unspecified urinary incontinence]Onset: 196762-62-2667TfdtvcfHcfcfxsxwa obstruction without hernia (4 sources)Intestinal obstruction; Translations: [Other intestinal obstruction unspecified as to partial versus complete obstruction]12-76-6684Axixwuhh Lymphadenitis (2 sources)Hilar lymphadenopathy ; Translations: [Localized enlarged lymph nodes]07-05-3381EvbndxfrUpewldq and fatigue (16 sources)Asthenia; Translations: [Weakness]Onset: 531169-85-2059 EpisodicMenopausal disorders (1 source)Hormone replacement therapy; Translations: [HORMONE REPLACEMENT THERAPY]Onset: 83-61-9171KxyeuoswZqqrxyu (3 sources)Onychomycosis due to dermatophyte ; Translations: [Tinea unguium] EpisodicNausea and vomiting (4 sources)Nausea and vomiting; Translations: [Nausea with vomiting, unspecified]35-67-5660KzubtrikEdoiphrmgttz (20 sources)Osteoporosis; Translations: [Age-related osteoporosis without current pathological fracture]Onset: 148664-78-9626ZbonrwtPqpdb acquired deformities (2 sources)Plain X-ray spine abnormal; Translations: [Deforming dorsopathy, unspecified]49-43-3151IujnvmnlDksdv aftercare (1 source)Treatment changed; Translations: [Other superintendent terminal (current) drug therapy]66-53-4667MnmnchcoCdfed aftercare (3 sources)Long-term current use of drug therapy; Translations: [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 of antithrombotics/antiplatelets]Onset: EpisodicOther aftercare (1 source)Traumatic brain injury; Translations: [Traumatic brain injury, with unknown loss of consciousness status, subsequent encounter]25-69-3901Wdygvzhe Other aftercare (1 source)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 of antithrombotics/antiplatelets; Translations: [longterm (current) use ofantithrombotics/antiplatelets]Onset: 86-93-5559GapmdjcnRtqna connective tissue disease (2 sources)Other symptoms and signs involving the musculoskeletal system; Translations: [Other musculoskeletalsymptoms referable to limbs]06-25-2025 EpisodicOther connective tissue disease (4 sources)Pain of right lower leg; Translations: [Pain in right lower leg] 62-69-3082ObgmyeamGtdli diseases of bladder and urethra (7 sources)Overactive bladder; Translations: [Overactive bladder]Onset: 748839-24-3935JppnijhLyqrz ear and sense organ disorders (5 sources)Hearing loss; Translations: [Unspecified hearing loss, unspecified ear]Onset: 015593-22-6966GnzvibyTwuto ear and sense organ disorders (2 sources)Hearing finding; Translations: [Other specified hearing loss, bilateral]53-67-9047CygwflxDkyrv gastrointestinal disorders (4 sources)Constipation, unspecified; Translations: [CONSTIPATION UNSPECIFIED] Onset: 70-92-4005FyvkizvhIpady gastrointestinal disorders (20 sources)Dysphagia; Translations: [Dysphagia, unspecified]Onset: 05-19-2025 77-44-0490GbuiqcwjRywndcg on above:mildOther gastrointestinal disorders (8 sources)Dysphagia, unspecified; Translations: [Dysphagia, unspecified]Onset: 694753-73-5439RqggpthfRtlpt gastrointestinal disorders (4 sources)Diarrhea; Translations: [Diarrhea, unspecified]45-15-6722Noushitv Other lower respiratory disease (6 sources)Interstitial lung disease; Translations: [Interstitial pulmonary disease, unspecified]Onset: 870338-26-4711PjdpzfqUkuqx lower respiratory disease (1 source)Interstitial pulmonary disease, unspecified; Translations: [Interstitial lung disease (HCC)]Onset: 59-10-2780ZowsntzLtamp nervous system disorders (7 sources)Polyneuropathy associated with another disorder; Translations: [Polyneuropathy in diseases classified elsewhere]Onset: ChronicOther nervous system disorders (20 sources)Acute postoperative pain; Translations: [Other acute postprocedural pain]Onset: 381536-55-7656CfwmlgpxOiqem nutritional; endocrine; and metabolic disorders (3 sources)Obesity; Translations: [Obesity, unspecified]ChronicOther nutritional; endocrine; and metabolic disorders (7 sources)Body mass index 30+ - obesity; Translations: [Body mass index (BMI) 32.0-32.9, adult]Onset: 757007-42-0059NyakzhbJiswz nutritional; endocrine; and metabolic disorders (2 sources)Body mass index (BMI) 32.0-32.9, adult; Translations: [Body mass index (BMI) 32.0-32.9, adult]Onset: 83-88-2691GlrwwkjLejuj nutritional; endocrine; and metabolic disorders (5 sources)Obesity caused by energy imbalance; Translations: [Other obesity due to excess calories]Onset: 777120-70-6534ErosvbeNpyfe screening for suspected conditions (not mental disorders or infectious disease) (5 sources)Endometrium thickened; Translations: [Abnormal findings on diagnostic imaging of other specified body structures]Onset: hronic Other screening for suspected conditions (not mental disorders or infectious disease) (20 sources)Encounter for screening mammogram for malignant neoplasm of breast; Translations: [Raised cardiac enzyme or marker]Onset: 59-07-4608TwszwlwePtshm upper respiratory disease (20 sources)Vasomotor rhinitis; Translations: [Vasomotor rhinitis]Onset: 12-05-2023 Resolved: 020488-12-0910QdlhteoRnhwy upper respiratory disease (2 sources)Seasonal allergy; Translations: [Other seasonal allergic rhinitis] 01-98-5847MrtcjocQtltbk media and related conditions (10 sources)Otitis media; Translations: [Unspecified nonsuppurative otitis media, right ear]Onset: 704223-51-1133JvxmcbumEzzictvrey and visceral atherosclerosis (2 sources)Atherosclerosis of aorta; Translations: [Atherosclerosis of aorta] 45-12-5708XpbksifHcmdjkggn (except that caused by tuberculosis or sexually transmitted disease) (20 sources)Community acquired pneumonia; Translations: [Pneumonia, unspecified organism]Onset: 546681-14-0367WztkblkyXcxvxzjqq heart disease (20 sources)Pulmonary hypertension, unspecified; Translations: [Pulmonary hypertension]Onset: 07-50-8150UqkdqptYukurwno codes; unclassified (5 sources)Restlessness; Translations: [Restlessness and agitation]Onset: 568270-92-2175HytpiejJnwqopmn codes; unclassified (2 sources)Restlessness and agitation; Translations: [Restlessness and agitation]11-31-4409TfncdlqFnabpyml codes; unclassified (2 sources)Edema; Translations: [Edema, unspecified]70-40-2846CcnilvwfDmkntxhi codes; unclassified (13 sources)Acute confusion; Translations: [Disorientation, unspecified]Onset: 739826-23-7349BivsedbdGlidgghg codes; unclassified (2 sources)Disorientation, unspecified; Translations: [Delirium due to conditions classified elsewhere]02-82-1987QzksdrhmEewqdfxb codes; unclassified (1 source)Pain, unspecified; Translations: [Pain, unspecified]Onset: 05-04-2025 EpisodicResidual codes; unclassified (5 sources)Altered mental status; Translations: [Altered mental status, unspecified]Onset: 325229-45-7256NhnzdwnbIhwhuczs codes; unclassified (2 sources)At risk of disease; Translations: [Other specified personal risk factors, not elsewhere classified]Onset: 028923-77-8012UcihiiujXmcsmekj codes; unclassified (1 source)Other specified personal risk factors, not elsewhere classified; Translations: [At risk for aspiration pneumonia]Onset: 25-78-7225Qjydvftk Respiratory failure; insufficiency; arrest (adult) (16 sources)Acute respiratory failure; Translations: [Acute respiratory failure with hypoxia]Onset: 584422-85-9204GxztsmjdUeyccypuyx arthritis and related disease (15 sources)Ankylosing spondylitis; Translations: [Ankylosing spondylitis lumbar region]Onset: 654822-77-1166MygmznmTlxxuqulmrm; intervertebral disc disorders; other back problems (20 sources)Disseminated idiopathic skeletal hyperostosis; Translations: [Ankylosing hyperostosis [[place]], site unspecified]Onset: 02-25-2024 37-13-7364CskbkyrCnrvqshcasu; intervertebral disc disorders; other back problems (8 sources)Chronic thoracic back pain; Translations: [Pain in thoracic spine] 64-61-4117ZdtzvovwSdcleep disorders (20 sources)Hypothyroidism; Translations: [Hypothyroidism, unspecified]Onset: 14-21-6638DmibswcJynqexptk cerebral ischemia (4 sources)Transient cerebral ischemia; Translations: [Transient cerebral ischemic attack, unspecified]Onset: 118391-79-2374VeuaixqFzdurvsecakq (1 source)Unspecified intracranial injury with loss of consciousness status unknown, sequela (CMS-HCC); Translations: [Unspecified intracranial injury with loss of consciousness status unknown, sequela (CMS-HCC)]Onset: 03-10-2024 Unclassified (1 source)Cough, unspecified; Translations: [Cough, unspecified]Onset: 14-78-4558Txijwsogglcv (4 sources)A [facility] screening has identified you as FRAIL or [...] Four Ways to Beat the Frailty Risk [email or web address]-qdsxot-ujlj- cfpx-fk-dxny-the-fra eirk-[email or web address] (3 sources)Call office on Sunday to schedule follow-up with your Primary Care Provider within 3-5 days of discharge.Unclassified (5 sources)Autogenerated ProblemOnset: 653745-58-6206Utkvuzsdeina (1 source)Traumatic brain injury, with unknown loss of consciousness status, subsequent encounter; Translations: [Traumatic brain injury, with unknown loss of consciousness status, subsequent encounter]Onset: 07-13-2025 Past or Other Problems Problem ClassificationProblemDateDocumented DateEpisodic/Chronic Administrative/social admission (2 sources)Person consulting for explanation of examination or test findings; Translations: [Person consultingfor explanation of examination or test findings] Onset: 26-75-7072SfafudtcPjqppv (20 sources)Moderate asthma; Translations: [Unspecified asthma, uncomplicated] Onset: 08-20-2023 Resolved: 371133-49-8261LzhsalhTlltrvx dysrhythmias (16 sources)Sinus bradycardia; Translations: [Other specified cardiac dysrhythmias]Onset: 567061-20-4394ItbpbdrgYseczszn; convulsions (20 sources)Seizure; Translations: [Unspecified convulsions]Onset: 04-24-2024 87-99-8503KoxzpkekKmaxguuqgfmrj symptoms and ill-defined conditions (5 sources)Frequency of micturition; Translations: [Urgency of urination]Onset: 16-74-0910FjhtbokcJsqevixedzwql and screening for infectious disease (20 sources)Needs influenza immunization; Translations: [Encounter for immunization]Onset: 08-23-2023 Resolved: 603111-66-3566MxrqhpyuRbpslcnwphlw injury (20 sources)Traumatic brain injury with loss of consciousness; Translations: [Unspecified intracranial injury with loss of consciousness of unspecified duration, sequela]Onset: 444750-95-1866AfbajufbDbir disorders (20 sources)Mood disordersOnset: Other aftercare (3 sources)Other half-way (current) drug therapy; Translations: [OTH [facility] CURRENT DRUG THERAPY]Onset: 46-12-8840WxzqtbcwOnrce aftercare (9 sources)Patient encounter status; Translations: [Other half-way (current) drug therapy]Onset: 011860-72-0505QirhxxhuNrush circulatory disease (7 sources)Abnormal chest sounds; Translations: [Other specified symptoms and signs involving the circulatory and respiratory systems]Onset: 03-10-2024 21-28-9466CsjcxzybBemtn circulatory disease (20 sources)Pulmonary congestion ; Translations: [Other specified symptoms and signs involving the circulatory and respiratory systems]Onset: 12-05-2023 Resolved: 478076-71-2826HgcaeuheVckyk circulatory disease (2 sources)Other specified symptoms and signs involving the circulatory and respiratory systems; Translations:[Other specified symptoms and signs involving the circulatory and respiratory systems]Onset: 64-22-6525XbvtfafaHphtq lower respiratory disease (20 sources)Fibrosis of lung; Translations: [Pulmonary fibrosis, unspecified] Onset: 08-20-2023 Resolved: 567673-66-2833MscxjlaNhmmp lower respiratory disease (20 sources)Nonspecific interstitial pneumonia; Translations: [Other specified interstitial pulmonary diseases]Onset: 02-25-2024 Resolved: 916194-58-1853JhotlfkPedsl lower respiratory disease (20 sources)Cough; Translations: [Cough]Onset: 590900-92-0887XzkheoaiJzgbl lower respiratory disease (20 sources)Dyspnea; Translations: [Shortness of breath]Onset: 02-25-2024 Resolved: 348671-07-6748WxrxnpxdEqvpx lower respiratory disease (20 sources)Chronic cough; Translations: [Chronic cough]Onset: 12-05-2023 Resolved: 225110-62-6486CnezfxilAdbvx lower respiratory disease (1 source)Shortness of breath; Translations: [Shortness of breath]Onset: 95-00-2047VvajpcbyXdvvh nervous system disorders (8 sources)Dysphasia; Translations: [Dysphasia]Onset: 917371-88-4189 EpisodicOther nervous system disorders (1 source)Dysphasia; Translations: [Dysphasia]Onset: 61-84-6669JfniolguOcbeq upper respiratory disease (20 sources)Feeling of lump in throat; Translations: [Globus sensation]Onset: 334742-58-2994QhavqwdkIedlznid codes; unclassified (14 sources)Device in situ; Translations: [Presence of neurostimulator]Onset: 05-19-2025 Resolved: 821180-87-7980LsoehfkrCernhnsiz and history of mental health and substance abuse codes (20 sources)Ex-smoker; Translations: [Personal history of tobacco use]Onset: 544575-62-5552ZhwttyezHbzrzez on above:Quit 1979;Syncope (20 sources)Syncope; Translations: [Syncope and collapse]Onset: 05-19-2025 77-37-5465FvkkmctjSxhiekwvnxqf (1 source)Onset: 624027-33-4144Jfvlicbjplve (1 source)Unspecified intracranial injury with loss of consciousness status unknown, sequela (CMS-HCC); Translations: [Unspecified intracranial injury with loss of consciousness status unknown, sequela (CMS-HCC)]Onset: 03-10-2024 Unclassified (1 source)Cough, unspecified; Translations: [Cough, unspecified]Onset: 88-89-9887Hsqfytzvsalb (2 sources)Acute bilateral efirdmjxylf13-74-5553Cqwwofrypvfn (2 sources)Hearing bxinfkr96-32-2189Aytxchymhwld (1 source)Preprocedural examination vzaq53-94-1698Waeewdb tract infections (20 sources)Recurrent urinary tract infection; Translations: [Urinary tract infection, site not specified]Onset: 225258-53-3317Zcqhtnwl Results Test NameValueInterpretationReference RangeFacilityUS.doppler Lower extremity vein - righton 08-21-2025 No acute DVT of the right leg. Lesions at the area of lump as discussed. Recommend continued clinical follow-up to ensure resolution/stability. ELECTRONICALLY SIGNED BY: Baron Montenegro MDIMAGINGHISTORY: Right lower leg pain. COMPARISON: None. TECHNIQUE: [...] Recommend continued clinical follow-up to ensure resolution/stability. Baron Jack MD - 08/21/2025 HISTORY: Right lower leg [...] Recommend continued clinical follow-up to ensure resolution/stability. IMPRESSION: No acute DVT of the right leg. Lesions at the area of lump as discussed. Recommend continued clinical follow-up to ensure resolution/stability. ELECTRONICALLY SIGNED BY: Baron Montenegro MD [facility] HealthcareRadiology Study observation (narrative)[facility] HospitalUS.doppler Lower extremity vein - rightOrdered By: Baron Montenegro on [id number] Package Concierge Work Phone: [facility] US LOWER EXTREMITY VENOUS DUPLEX RIGHTon [id number] US LOWER EXTREMITY VENOUS DUPLEX RIGHTHISTORY: Right lower leg pain. COMPARISON: None. TECHNIQUE: [...] Recommend continued clinical follow-up to ensure resolution/stability. IMPRESSION: No acute DVT of the right leg. Lesions at the area of lump as discussed. Recommend continued clinical follow-up to ensure resolution/stability. ELECTRONICALLY SIGNED BY: Baron Montenegro MDNormalNot AvailableCNOVon 08-06-2025 CNOVOffice Visit (GENSLN) KARUNA REYNAGA ([id number]) 1945 F Date Time Provider Department 08/06/25 1:40 PM MARGO CASTELLON During your visit today, we recorded the following information about you: Pulse Blood pressure 64/minute 116/69 Margo Castellon MD 08/06/2025 3:24 PM Signed GENERAL SURGERY POST OPERATIVE FOLLOW UP HPI: This patient is s/p 07/24/2025 laparoscopic cholecystectomy for symptomatic cholelithiasis. Daughter is primary proposal editor. Issues with constipation postop for which she presented to the ED. She was given milk of magnesia and a bowel regimen which provided relief. She just had a follow-up abdominal x-ray today to reassess stool burden. Denies abdominal pain nausea or emesis. Maintaining a good appetite. PHYSICAL EXAM: BP 116/69 Pulse 64 There is no height or weight on file to calculate BMI. General Appearance: Well appearing, alert, in no acute distress, well-hydrated, well nourished.. Eyes: Anicteric sclera. Abdomen: Soft, nondistended and nontender. Laparoscopic incisions are well-approximated. No erythema or ecchymosis.. Extremities: No lower extremity edema, no calf pain or tenderness. Negative Homans' sign. PATHOLOGY: FINAL DIAGNOSIS A. Gallbladder, cholecystectomy: - Chronic cholecystitis with adenomyomatous hyperplasia at the fundus - Cholelithiasis Assessment 1. Symptomatic cholelithiasis (K80.20) Patient is post-cholecystectomy for symptomatic cholelithiasis with pathology confirming chronic inflammation and a 1.5 cm stone. Incisions are healing well with no signs of infection or significant pain. - Continue routine post-operative care. - Advised patient to resume usual diet as tolerated. - As needed stool softeners, follow-up abdominal x-ray to assess stool burden. - Follow up as needed SIGNATURE: Margo Castellon MD PATIENT NAME: Karuna Reynaga DATE: August 06, 2025 TIME: 3:21 PM Allergies As of Date: 08/06/2025 Noted Allergy Reaction LATEX 06/29/2009 2 - Rash MIDAZOLAM 01/09/2023 1 - Mental Status Change OPIOIDS - MORPHINE ANALOGUES 12/26/2022 1 - Mental Status Change 16 - Unknown Comments: Other Reaction(s): unknown PENICILLINS 06/29/2009 2 - Rash PROPOXYPHENE 08/21/2023 14 - Other: See Comments Comments: Other Reaction(s): unknown SULFA (SULFONAMIDE ANTIBIOTICS) 06/29/2009 2 - Rash Date Reviewed: 08/06/2025 Reviewed by: Caro Luna MA - Fully Assessed Reason for Visit: Post Op [174] Primary Visit Diagnosis:Symptomatic cholelithiasis [K80.20] Prescriptions as of 08/06/2025 - brexpiprazole (REXULTI) 0.25 mg tablet Take [...] nostril two times a day. - fexofenadine (ALEXA) 180 mg tablet Take 180 [...] tablet daily. Problem List As Of Date 08/06/2025 Noted Resolved Cough [R05.9] 06/29/2020 Hypercholesteremia [E78.00] 07/13/2025 longterm (current) use of antithrombotics/anti*05/03/2025 Interstitial lung disease (HCC) [J84.9] 07/13/2025 Prediabetes [R73.03] 06/25/2025 Presence of neurostimulator [Z96.82] 05/19/2025 07/16/2025 Pulmonary hypertension (HCC) [I27.20] (more content not included)...Normal [facility] hamiltonXR ABDOMEN 2 VIEWon 96-88-3130TE ABDOMEN 2 VIEWXR CHEST 2 VIEWS, XR ABDOMEN 2 VIEW [...] changes are seen in the visualized spine. IMPRESSION: FINDINGS COULD REFLECT REACTIVE AIRWAY DISEASE OR BRONCHITIS. Nonobstructive, nonspecific bowel gas pattern ELECTRONICALLY SIGNED BY: Hi DamonNot AvailableXR CHEST 2 VIEWS on 79-75-3107AD CHEST 2 VIEWSXR CHEST 2 VIEWS, XR ABDOMEN 2 VIEW [...] changes are seen in the visualized spine. IMPRESSION: FINDINGS COULD REFLECT REACTIVE AIRWAY DISEASE OR BRONCHITIS. Nonobstructive, nonspecific bowel gas pattern ELECTRONICALLY SIGNED BY: Lucas Damon PATH BX REPORTon [id number] DISCLAIMERNOMS HealthcareComment on above:Laboratory Developed Test (LDT) Disclaimer: Performance characteristics of immunohistochemical, immunofluorescent, and chromogenic in-situ hybridization tests have been determined by the performing laboratory within the [facility] Department of Pathology and Laboratory Medicine ([facility], [facility], [facility], [facility], [facility], [facility], or [facility]) in a manner consistent with CLIA requirements. One or more of these tests may not have been cleared or approved by the FDA. The [facility] Department of Pathology and Laboratory Medicineis regulated under CLIA as qualified to perform high-complexity testing. These tests are used for clinical purposes. These should not be regarded as investigational or for research. Positive and negative controls stain appropriately. [facility] CASE REPORTNOMS HealthcareComment on above:Surgical Pathology Report Case: [id number] Authorizing Provider: Margo Castellon MD Collected: 07/24/2025 11:14 AM Ordering Location: [facility] Surgery Received: 07/24/2025 02:46 PM Pathologist: Ramón Solis MD, PhD Specimen: Gallbladder [facility] CLINICAL HISTORYNOMS HealthcareComment on above:Pre-op diagnosis: Symptomatic cholelithiasis [K80.20] [facility] FINAL DIAGNOSISNOMS HealthcareComment on above:A. Gallbladder, cholecystectomy: - Chronic cholecystitis with adenomyomatous hyperplasia at the fundus - Cholelithiasis at 1649 EDT [facility] FINAL PERFORMING LABST. MARK'S HOSPITAL HealthcareComment on above:Diagnostic interpretation performed at: [facility], [address] [place] [address], Desk [place] [address] CLIA# [id number] Licensed Mortician: Maged Melo MD [facility] GROSS DESCRIPTIONA. GallbladderST. MARK'S HOSPITAL HealthcareComment on above:Received in formalin labeled as gallbladder is a [...] 0.9 cm. The mucosa is bile-stained and v elvety. Section reveals a 0.2 cm wall thickness. Additionally, some cystic spaces are identified towards the fundus, devoid of any contents. Palpation does not reveal any possible lymph nodes. Production Trainer sections are submitted in 1 cassette. RSA July 27, 2025 9:49 AM Gross examination performed at [facility], [address] [place] [address] Specimen Type: TISSUE SPECIMEN Ordering Facility: [facility] Address: [address] [place] [address] Original Ordering Provider: [facility] panel Auto (Bld) on 78-93-2388Afjuzxulywn distribution width (RBC) [Ratio]12.1 %Ohbmzd90.5-15.0 [facility] HospitalComment on above:Order Comment: Specimen Type: BLOOD SPECIMEN Ordering Facility: [facility] Address: [address] [place], [place] [address]Performed By: #### 60826-5 #### [facility] CLIA [id number] [address] [place] [place] [address] [place] OF AMERICAHematocrit (Bld) [Volume fraction]39.7 % Yzknjf84.0-46.0[facility]on HospitalComment on above:Order Comment: Specimen Type: BLOOD SPECIMEN Ordering Facility: [facility] Address: [address] [place], [place] [address]Performed By: #### 07570-3 #### [facility] [place] [id number] [address] [place] [address] [facility] HOSPITALHemoglobin (Bld) [Mass/Vol]13.2 g/dL Zetsfx70.5-15.5Avon HospitalComment on above:Order Comment: Specimen Type: BLOOD SPECIMEN Ordering Facility: [facility] Address: [address] [place], [place] [address]Performed By: #### 28572-8 #### [facility] IA [id number] [address] [place] [address] [facility]ITAL[facility] (RBC) [Entitic mass]30.3 pgNormal 26.0-34.0Avon HospitalComment on above:Order Comment: Specimen Type: BLOOD SPECIMEN Ordering Facility: [facility] Address: [address] [place], [place] [address]Performed By: #### 70404-8 #### [facility] IA [id number] [address] [place] [address] [facility] FACILITYMCHC (RBC) [Mass/Vol]33.2 g/dLNormal 30.5-36.0Av HospitalComment on above:Order Comment: Specimen Type: BLOOD SPECIMEN Ordering Facility: [facility] Address: [address] [place], [place] [address]Performed By: #### 15402-2 #### [facility] IA [id number] [address] [place] [address] [facility] HOSPITALV (RBC) [Entitic vol]91.1 fLNormal 80.0-100.0Av HospitalComment on above:Order Comment: Specimen Type: BLOOD SPECIMEN Ordering Facility: [facility] Address: [address] [place], [place] [address]Performed By: #### 39955-7 #### [facility] IA [id number] [address] [place] [place] [address] [place] AMERICANucleated RBC (Bld) [#/Vol]10*3/uLNormal <0.01Avon HospitalComment on above:Order Comment: Specimen Type: BLOOD SPECIMEN Ordering Facility: [facility] Address: [address] [place], [place] [address]Performed By: #### 28097-5 #### [facility] CLIA [id number] [facility] [place] [address] [place] AMERICAPlatelet mean volume (Bld) [Entitic vol] 9.8 fLNormal9.0-12.7Avon HospitalComment on above:Order Comment: Specimen Type: BLOOD SPECIMEN Ordering Facility: [facility] Address: [address] [place], [place] [address]Performed By: #### 39446-7 #### [facility] IA [id number] [address] [place] [address] [place] AMERICAPlatelets (Bld) [#/Vol]258 10*3/uLNormal 150-400Avon HospitalComment on above:Order Comment: Specimen Type: BLOOD SPECIMEN Ordering Facility: [facility] Address: [address] [place], [place] [address]Performed By: #### 09106-7 #### [facility] IA [id number] [address] [place] [address] [place] AMERICARBC (Bld) [#/Vol]4.36 10*6/uLNormal 3.90-5.20Avon HospitalComment on above:Order Comment: Specimen Type: BLOOD SPECIMEN Ordering Facility: [facility] Address: [address] [place], [place] [address]Performed By: #### 18362-6 #### [facility] IA [id number] [address] [facility] [place] [address] [place] AMERICAWBC (Bld) [#/Vol]10.12 10*3/uLNormal 3.70-11.00Avon HospitalComment on above:Order Comment: Specimen Type: BLOOD SPECIMEN Ordering Facility: [facility] Address: [address] [place], [place] [address]Bvhrfvbry By: #### 91304-1 #### [facility] CLIA [id number] [address] [place] [place] [address] [facility] MEDICAL FACILITYCNDSon [id number] ID: [id number] Author: CIRO MURILLO III, MD Service: General Surgery Author Type: Physician Electronic Maintenance Supervisor Type: Discharge Summary Filed: 07/25/2025 13:01 Note Text: Attestation signed by Ciro Murillo III, MD at 07/25/2025 1:01 PM DISCHARGE DATE: 07/25/2025 Ciro Murillo III, MD DISCHARGE SUMMARY PATIENT NAME: Karuna Reynaga Code [...] AND MEDICAL TEAM: My Main Hospital Doctor: Margo Castellon MD Primary Care Provider: Vimal Burton MD My Medical Team Members: Treatment Team: Attending Provider: Margo Castellon MD MY CONDITION AT DISCHARGE: Stable [...] you become constipated, you may use any rwcg-hku-rymezzb treatment such as Milk of Magnesia, Sennakot, Prune Juice, Suppositories, etc. in addition to the stool softener/fiber supplement No alcohol or driving while on pain medication Use acetaminophen (Tylenol) as recommended on the bottle Use the dispensed medication (see prescription) You should use an codp-ubx-hfvknzd stool softener (Docusate sodium) and/or a fiber [...] in stable condition Treatment Team: Attending Provider: Margo Castellon MD Consulting: (Internal), Internal Provider (Inactive) FINAL DIAGNOSIS: symptomatic cholelithasis, s/p laparoscopic cholecystectomy Active Hospital Problems Diagnosis POA Symptomatic cholelithiasis Yes (more content not included)...NormalAv HospitalComprehensive metabolic 2000 panelon 31-89-9166Ueorghv [Mass/Vol]4.0 g/dLNormal3.9-4.9Avon HospitalComment on above:Order Comment: Specimen Type: BLOOD SPECIMEN Ordering Facility: [facility] Address: [address] [place], [place] [address]Performed By: #### 70676-2 #### [facility] CLIA [id number] [address] [place] [address] [place] AMERICAALP [Catalytic activity/Vol]56 U/LNormal 34-123Av HospitalComment on above:Order Comment: Specimen Type: BLOOD SPECIMEN Ordering Facility: [facility] Address: [address] [place], [place] [address]Performed By: #### 95946-1 #### [facility] CLIA [id number] [address] [place] [address] [place] AMERICAALT [Catalytic activity/Vol]88 U/LHigh 7-38Av HospitalComment on above:Order Comment: Specimen Type: BLOOD SPECIMEN Ordering Facility: [facility] Address: [address] [place], [place] [address]Performed By: #### 16124-7 #### [facility] CLIA [id number] [place] [address] [place] AMERICAAnion gap [Moles/Vol]11 mmol/LNormal8-15 [facility] HospitalComment on above:Order Comment: Specimen Type: BLOOD SPECIMEN Ordering Facility: [facility] Address: [address] [place], [place] [address]Performed By: #### 48718-9 #### [facility] IA [id number] [address] [place] [address] [place] AMERICAAST [Catalytic activity/Vol]73 U/LHigh 13-35[facility] HospitalComment on above:Order Comment: Specimen Type: BLOOD SPECIMEN Ordering Facility: [facility] Address: [address] [place], [place] [address]Performed By: #### 25824-7 #### [facility] IA [id number] [address] [place] [address] [place] AMERICABilirubin [Mass/Vol]0.5 mg/dLNormal 0.2-1.3Avo HospitalComment on above:Order Comment: Specimen Type: BLOOD SPECIMEN Ordering Facility: [facility] Address: [address] [place], [place] [address]Performed By: #### 21568-1 #### [facility] IA [id number] [address] [place] [address] [place] AMERICACalcium [Mass/Vol]9.7 mg/dLNormal8.5-10.2 [facility] HospitalComment on above:Order Comment: Specimen Type: BLOOD SPECIMEN Ordering Facility: [facility] Address: [address] [place], [place] [address]Performed By: #### 14604-2 #### [facility] IA [id number] [address] [place] [address] [place] AMERICAChloride [Moles/Vol]103 mmol/LNormal 98-107[facility] HospitalComment on above:Order Comment: Specimen Type: BLOOD SPECIMEN Ordering Facility: [facility] Address: [address] [place], [place] [address]Performed By: #### 27150-8 #### [facility] IA [id number] [address] [place] [address] [place] AMERICACO2 [Moles/Vol]26 mmol/OUqmeex31-73Fhwj HospitalComment on above:Order Comment: Specimen Type: BLOOD SPECIMEN Ordering Facility: [facility] Address: [address] [place], [place] [address]Performed By: #### 87184-1 #### [facility] IA [id number] [place] [address] [place] AMERICACreatinine [Mass/Vol]0.74 mg/dLNormal 0.58-0.96Av HospitalComment on above:Order Comment: Specimen Type: BLOOD SPECIMEN Ordering Facility: [facility] Address: [address] [place], [place] [address]Performed By: #### 06549-8 #### [facility] IA [id number] [address] [place] [address] [place] AMERICAeGFRcr SerPlBld CKD-EPI 057112 mL/min/1.73m???Normal>=60Av HospitalComment on above:Order Comment: Specimen Type: BLOOD SPECIMEN Ordering Facility: [facility] Address: [address] [place], [place] [address]Result Comment: Estimated Glomerular Filtration Rate (eGFR) is calculated using the 2020 CKD-EPI cre atinine equation. This equation utilizes serum creatinine, sex, and age as parameters. The creatinine assay has traceable calibration to isotope dilution- mass spectrometry. Refer to KDIGO guidelines for clinical interpretation. In patients with unstable renal function, e.g. those with acute kidney injury, the eGFR may not accurately reflect actual GFR.Performed By: #### 95212-5 #### [facility] IA [id number] [address] [place] [address] [place] AMERICAGlucose [Mass/Vol]114 mg/bDHrhy49-17Darj HospitalComment on above:Order Comment: Specimen Type: BLOOD SPECIMEN Ordering Facility: [facility] Address: [address] [place], [place] [address]Kwjnch Comment: The Indian Diabetes Association (ADA) provides guidance for cutoff [...] Standards of Medical Care in Diabetes 2016, Indian Diabetes Association. Diabetes Care. 2016.39(Suppl 1).Performed By: #### 18547-1 #### [facility] CLIA [id number] [address] [place] [address] [place] AMERICAPotassium [Moles/Vol]4.7 mmol/LNormal 3.7-5.1Ainspira medical center vineland HospitalComment on above:Order Comment: Specimen Type: BLOOD SPECIMEN Ordering Facility: [facility] Address: [address] [address]Performed By: #### 72823-2 #### [facility] CLIA [id number] [address] [place] [address] [place] AMERICAProtein [Mass/Vol]7.0 g/dLNormal6.3-8.0 [facility] HospitalComment on above:Order Comment: Specimen Type: BLOOD SPECIMEN Ordering Facility: [facility] Address: [address] [place] [address]Performed By: #### 61750-1 #### [facility] CLIA [id number] [address] [place] [address] [place] AMERICASodium [Moles/Vol]140 mmol/RYlegys565-759 [facility] HospitalComment on above:Order Comment: Specimen Type: BLOOD SPECIMEN Ordering Facility: [facility] Address: [address] [place], [place] [address]Tntaxfgte By: #### 86802-3 #### [facility] CLIA [id number] [address] [place] [address] [place] AMERICAUrea nitrogen [Mass/Vol]14 mg/dLNormal 7-Avon HospitalComment on above:Order Comment: Specimen Type: BLOOD SPECIMEN Ordering Facility: [facility] Address: [address] [place], [place] [address]Rgkwumoyn By: #### 56888-3 #### [facility] CLIA [id number] [address] [place] [address] [facility] POSTPROC EVALon [id number] POSTPROC EVALHNO ID: [id number] Author: ANDRY MILLS MD Service: Anesthesiology Author Type: Physician Type: Anesthesia Postprocedure Evaluation Filed: 07/24/2025 16:12 Note Text: POST ANESTHESIA EVALUATION NOTE : 1945 Procedure Summary Date: 07/24/25 Room / Location: OR / OR Anesthesia Start: 1306 Anesthesia Stop: 1424 Procedure: LAPAROSCOPIC CHOLECYSTECTOMY POSSIBLE OPEN (Gallbladder) Diagnosis: Symptomatic cholelithiasis (Symptomatic cholelithiasis [K80.20]) Surgeons: Margo Castellon MD Responsible Provider: Andry Mills MD [...] Documentation SIGNATURE: Andry Mills MD PATIENT NAME: Karuna Reynaga DATE: July 24, 2025 TIME: 4:12 PM CSN: [id number] PRE-OPon [id number] PRE-OPHNO ID: [id number] Author: CATA MORTON DO Service: Anesthesiology Author Type: Anesthesiologist Type: Anesthesia Preprocedure Evaluation Filed: 07/24/2025 11:50 Note Text: ANESTHESIOLOGY DAY OF SURGERY NOTE : 1945 Procedure Information Date/Time: 07/24/25 1155 Procedure: LAPAROSCOPIC CHOLECYSTECTOMY POSSIBLE OPEN (Gallbladder) Location: AV OR06 / AV OR Surgeons: Margo Castellon MD Estimated body mass index is [...] and consent discussed: yes. Patient / Responsible Green Party agrees to proceed: yes Patient / Surrogate [...] each nostril two times a day. fexofenadine (ALEXA) 180 mg tablet Take 180 [...] July 24, 2025 TIME: 11:49 AM CSN: [id number] NOTon [id number] OP NOTHNO ID: [id number] Author: MARGO CASTELLON MD Service: General Surgery Author Type: Physician Type: Brief Op Note Filed: 07/24/2025 14:11 Note Text: BRIEF OPERATIVE / PROCEDURE NOTE LOG ID: [id number] SURGERY/PROCEDURE DATE: 07/24/2025 INCISION/PROCEDURE START TIME: 1:25 PM INCISION CLOSE/PROCEDURE END TIME: SURGEON(S)/PROCEDURALIST(S) AND SCALLOP BINDER(S): Surgeons and Role: * Margo Castellon MD - Primary Physician Electronic Maintenance Supervisor: Kate Bhagat PA-C Preoperative Concerns /Risks: None [...] brief op note (or operative note) SIGNATURE: Margo Castellon MD PATIENT NAME: Karuna Eldridgekarissa DATE: July 24, 2025 TIME: 2:10 [facility] NOon [id number] NOHNO ID: [id number] Author: MARGO CASTELLON MD Service: General Surgery Author Type: Physician Type: Operative Report Filed: 08/02/2025 12:22 Note Text: OPERATIVE REPORT [facility] NAME: Karuna Reynaga [facility] #: [id number] DATE: July 24, 2025 AGE: [age] year old SURGEON 1: Margo Castellon MD SCALLOP BINDER 1: Physician Electronic Maintenance Supervisor: Kate Bhagat PA-C The role of the PA was to assist with exposure and dissection of tissue, management of the laparoscope, skin closure. No qualified resident was available to perform the service. OPERATION: Laparoscopic cholecystectomy ANESTHESIA: General. PREOPERATIVE DIAGNOSIS: symptomatic cholelithiasis POSTOPERATIVE DIAGNOSIS: chronic cholecystitis OPERATIVE INDICATIONS: The patient is a 80 year old female with history of TBI, seizure disorder and cholelithiasis who was seen in office for recurrent postprandial epigastric and right upper quadrant pain and diarrhea. She has had multiple ED visits for upper abdominal pain. Was never diagnosed with acute cholecystitis but has a known 11 mm gallstone and hepatic steatosis. Discussion was made with the patient regarding cholecystectomy for biliary colic symptoms. Informed consent was obtained from the patient. The patient understood risks, benefits, and alternatives of the procedure and agreed to procedure described above. OPERATIVE FINDINGS: Chronic cholecystitis OPERATIVE PROCEDURE: The patient was brought to the operating room and laid in the supine position. General anesthesia was provided by Anesthesia team. Abdominal area was then prepped and draped in usual sterile fashion. A small supra umbilical incision was made. Further dissection was taken down to the anterior abdominal fascia. Fascia was opened with open abdomen technique. Abdominal cavity was then entered and trocar was placed. The abdomen was insufflated and visualized. Under direct visualization, another 5 mm port was placed in the epigastric region. Two additional 5-mm ports were placed in the right side of the abdomen. Gallbladder appeared mildly fibrotic consistent with chronic cholecystitis but otherwise was fairly normal.. It was retracted to the right upper quadrant. Gallbladder peritoneum was incised laterally and medially and dissection was performed at the infundibulum. Both the cystic duct and cystic artery were clearly identified. Critical view was obtained and confirmed. Only two tubular structures found going in and out of the gallbladder. Of note, patient had a prominent arterial branch, possible aberrant right hepatic artery that coursed posterior to the cystic artery and cystic duct and into the liver. Care was taken to avoid injuring this structure.. After the critical view was verified again, and the cystic artery was clipped and ligated. The cystic duct was also clipped and ligated and due to its patulous appearance, an Endoloop was also placed over the cystic duct stump. Gallbladder was then removed from the gallbladder fossa using electrocautery device. It was placed in Endocatch bag and removed from the abdominal cavity. Surgical area was then irrigated and suction dried. Hemostasis was checked. No signs of active bleeding. Pneumoperitoneum was evacuated. All trocars were removed. The supra umbilical incision fascia layer was closed with #0 Vicryl suture. All the skin incisions were closed with 3-0 vicryl and 4-0 Monocryl. Sterile dressing was applied. The patient tolerated the procedure well and was transferred to recovery for postprocedural care. INCISION/PROCEDURE START TIME: 1:25 PM INCISION CLOSE/PROCEDURE END TIME: 2:14 PM ESTIMATED BLOOD LOSS: Minimal DRAINS: none SPECIMENS: Gallbladder. CONDITION: Stable. COMPLICATIONS: None apparent. One[facility] MarinMountain Point Medical CenterPathology biopsy report Bernard (Tiss)on [id number] DISCLAIMERUniversity of Louisville HospitalComment on above:Order Comment: Specimen Type: BLOOD SPECIMEN Ordering Facility: [facility] Address: [address] [place] [address]76[address]Egckml Comment: Laboratory Developed Test (LDT) Disclaimer: Performance characteristics of immunohistochemical, immunofluorescent, and chromogenic in-situ hybridization tests have been determined by the performing laboratory within the [facility] Department of Pathology and Laboratory Medicine ([facility], [facility], [facility], [facility], [facility], [facility], or [facility]) in a manner consistent with CLIA requirements. One or more of these tests may not have been cleared or approved by the FDA. The [facility] Department of Pathology and Laboratory Medicineis regulated under CLIA as qualified to perform high-complexity testing. These tests are used for clinical purposes. These should not be regarded as investigational or for research. Positive and negative controls stain appropriately.Performed By: #### 18354-8 #### [facility] CLIA [id number] [address] [place] [address] [facility] CenterComment on above:Order Comment: Specimen Type: BLOOD SPECIMEN Ordering Facility: [facility] Address: [address] [place], [place] [address]Result Comment: Surgical Pathology Report Case: [id number] Authorizing Provider: Margo Castellon MD Collected: 07/24/2025 11:14 AM Ordering Location: [facility] Surgery Received: 07/24/2025 02:46 PM Pathologist: Ramón Solis MD, PhD Specimen: GallbladderPerformed By: #### 97304-9 #### [facility] CLIA [id number] [address] [place] [address] [facility] Comment on above:Order Comment: Specimen Type: BLOOD SPECIMEN Ordering Facility: [facility] Address: [address] [place] [address]Ecmsvq Comment: Pre-op diagnosis: Symptomatic cholelithiasis [K80.20]Performed By: #### 64625-1 #### [facility] CLIA [id number] [address] [place] [address] [facility] CenterComment on above:Order Comment: Specimen Type: BLOOD SPECIMEN Ordering Facility: [facility] Address: [address] [place] [address]Dnmvdn Comment: A. Gallbladder, cholecystectomy: - Chronic cholecystitis with adenomyomatous hyperplasia at the fundus - Cholelithiasis at 1649 EDT Performed By: #### 70331-1 #### [facility] CLIA [id number] [address] [place] [address] [facility] Comment on above:Order Comment: Specimen Type: BLOOD SPECIMEN Ordering Facility: [facility] Address: [address] [place] [address]Kiecbf Comment: Diagnostic interpretation performed at: [facility], [address] [place] [address], [address] [address] CLIA# [id number] Licensed Mortician: SHAKILA Gaoerformed By: #### 59816-8 #### [facility] CLIA [id number] [address] [place] [address] [place] AMERICAGROSS DESCRIPTIONA. GallbladderNormalAvon HospitalComment on above:Order Comment: Specimen Type: BLOOD SPECIMEN Ordering Facility: [facility] Address: [address] [place], [place] [address]Result Comment: Received in formalin labeled as gallbladder is [...] does not reveal any possible lymph nodes. Production Trainer sections are submitted in 1 cassette. RSA July 27, 2025 9:49 AM Gross examination performed at [facility], [address] [place], [place] [address]Performed By: #### 29337-2 #### [facility] CLIA [id number] [address] [place] [address] [place] AMERICAUrinalysis complete panel (U)on 12-57-8605Fhcvrfskt Ql (U)NegativeNormalNegativeAvon HospitalComment on above: Order Comment: Specimen Type: URINE SPECIMEN Ordering Facility: [facility] Address: [address] [place], [place] [address]Performed By: #### 26115-4 #### [facility] [place] [id number] [address] [place] [address] [place] AMERICAClarity (Unsp spec)ClearNormalClearAvon HospitalComment on above:Order Comment: Specimen Type: URINE SPECIMEN Ordering Facility: [facility] Address: [address] [place], [place] [address]Performed By: #### 80153-2 #### [facility] [place] [id number] [place] [address] [place] AMERICAColor (U)Light YellowNormalyellowAvon HospitalComment on above:Order Comment: Specimen Type: URINE SPECIMEN Ordering Facility: [facility] Address: [address] [place], [place] [address]Performed By: #### 14008-5 #### [facility] [place] [id number] [place] [address] [place] AMERICAEpithelial cells LM.HPF (Urine sed) [#/Area]FewNoalAvon HospitalComment on above:Order Comment: Specimen Type: URINE SPECIMEN Ordering Facility: [facility] Address: [address] [place], [place] [address]Performed By: #### 80873-8 #### [facility] IA [id number] [address] [place] [address] [place] AMERICAGlucose Test strip (U) [Mass/Vol]Negative NormalTrace, NegativeAvon HospitalComment on above:Order Comment: Specimen Type: URINE SPECIMEN Ordering Facility: [facility] Address: [address] [place], [place] [address]Performed By: #### 93059-1 #### [facility] IA [id number] [place] [address] [place] AMERICAHemoglobin Ql (U)NegativeNormalNegative, TraceAvon HospitalComment on above:Order Comment: Specimen Type: URINE SPECIMEN Ordering Facility: [facility] Address: [address] [place], [place] [address]Performed By: #### 36435-9 #### [facility] IA [id number] [address] [place] [address] [place] AMERICAKetones Ql (U)NegativeNormalNegative, TraceAvon HospitalComment on above:Order Comment: Specimen Type: URINE SPECIMEN Ordering Facility: [facility] Address: [address] [place], [place] [address]Performed By: #### 58808-4 #### [facility] IA [id number] [address] [place] [address] [place] AMERICALeukocyte esterase Test strip Ql (U) NegativeNormalNegative, 25 Monica/uLAvon HospitalComment on above:Order Comment: Specimen Type: URINE SPECIMEN Ordering Facility: [facility] Address: [address] [place], [place] [address]Performed By: #### 10538-0 #### [facility] [place] [id number] [address] [place] [address] [place] AMERICANitrite Ql (U)NegativeNormalNegativeAvon HospitalComment on above:Order Comment: Specimen Type: URINE SPECIMEN Ordering Facility: [facility] Address: [address] [place], [place] [address]Performed By: #### 76922-9 #### [facility] [id number] [address] [place] [address] [place] AMERICApH (U)6.0 [pH]Normal5.0-8.0Av Hospital Comment on above:Order Comment: Specimen Type: URINE SPECIMEN Ordering Facility: [facility] Address: [address] [place], [place] [address]Performed By: #### 03486-4 #### [facility] [id number] [place] [address] [place] AMERICAProtein (U) [Mass/Vol]NegativeNormal Trace, NegativeAvon HospitalComment on above:Order Comment: Specimen Type: URINE SPECIMEN Ordering Facility: [facility] Address: [address] [place], [place] [address]Performed By: #### 05585-7 #### [facility] [id number] [address] [place] [address] [place] [facility] CENTERRB LM.HPF (Urine sed) [#/Area]0-3 /HPF Normal0-3 /HPFAv HospitalComment on above:Order Comment: Specimen Type: URINE SPECIMEN Ordering Facility: [facility] Address: [address] [place], [place] [address]Performed By: #### 93338-2 #### [facility] [place] [id number] [address] [place] [address] [place] [facility] CENTERSpecific gravity (U) [Rel density]1.018 Normal1.005-1.030Av HospitalComment on above:Order Comment: Specimen Type: URINE SPECIMEN Ordering Facility: [facility] Address: [address] [place], [place] [address]Performed By: #### 93754-9 #### [facility] [id number] [address] [place] [address] [place] [facility] MED[facility] CENTERUrobilinogen Ql (U)NormalNormalNormalAvon HospitalComment on above:Order Comment: Specimen Type: URINE SPECIMEN Ordering Facility: [facility] Address: [address] [place], [place] [address]Performed By: #### 10888-0 #### [facility] [id number] [address] [place] [address] [place] [facility]TRI[facility] MED[facility] CENTERWBC LM.HPF (Urine sed) [#/Area]0-5 /HPF Normal0-5 /HPFAv HospitalComment on above:Order Comment: Specimen Type: URINE SPECIMEN Ordering Facility: [facility] Address: [address] [place], [place] [address]Performed By: #### 26327-2 #### [facility] [id number] [address] [place] [address] [facility] MEDICAL CENTERCNPNon [id number] (GENSAV) KARUNA REYNAGA ([id number]) 1945 F Date Time Provider Department 07/13/25 MARGO CASTELLON During your visit today, we recorded the following information about you: Susanna Duran RN 07/13/2025 2:04 PM Signed Patient's daughter calling. Patient scheduled for LAP CHOLEY on 07/24/25. Patient is experiencing more frequent discomfort. Asking if any sooner OR times are available? Please call Nadira @ [phone] ok to leave VM, (there is a 30 sec delay before the beep ) [phone] Trini Bateman 07/17/2025 3:12 PM Addendum Patient's daughter Nadira called office, states patient was in the ER yesterday for gallbladder attack. Nadira is requesting to speak with clinical, wants to know when is patient's symptoms considered urgent. Patient is scheduled next Tuesday 07/[address] Castellon, afraid patient need surgery done sooner. Can be reached at [phone]. Thank you. Salud Ventura RN 07/17/2025 3:27 PM Signed Called daughter Nadira [...] this then would recommend ER evaluation at [place] but again assessment is required to determine [...] Rash Date Reviewed: 07/13/2025 Reviewed by: Carissa Jimenez MA - Fully Assessed Reason for Visit: Patient Question [0178] Appointment [186] Prescriptions as of 07/17/2025 - [...] nostril two times a day. - fexofenadine (ALEXA) 180 mg tablet Take 180 [...] Resolved Cough [R05.9] 06/29/2020 Hypercholesteremia [E78.00] 07/13/2025 longterm (current) use of antithrombotics/anti*05/03/2025 Interstitial lung disease (HCC) [J84.9] 07/13/2025 Myocardial infarction (HCC) [I21.9] 07/13/2025 Prediabetes [R73.03] 06/25/2025 Presence of neurostimulator [Z96.82] 05/19/2025 Pulmonary hypertension (HCC) [I27.20] (more content not included)... NormalC[facility] 62-32-1085FceewpegdaaqyjcyoCtpjcgydfuy Rate : 67 BPM Atrial Rate : 67 BPM P-R Interval : 172 ms QRS Duration : 82 ms Q-T Interval : 406 ms QTC Calculation(Bazett) : 429 ms Calculated P Berkeley : 58 degrees Calculated R [place] : 37 degrees Calculated T [place] : 15 degrees Normal sinus rhythm Normal ECG No previous ECGs available Confirmed by Rigoberto SIERRA RAVISANKAR ([id number]) on 07/14/2025 12:42:44 PM NAME : KARUNA REYNAGA PID : [id number] : 1945 Gender : Female Race : ORD : Procedure Date : Jul 13 2025 18:55:10 Edit Date : Jul 14 2025 12:42:50 Diagnosis: Normal sinus rhythm Normal ECG No previous ECGs available Confirmed by Rigoberto SIERRA RAVISANKAR ([id number]) on 07/14/2025 12:42:44 PM Test Reason : Location : 301 : [facility] Overread By : Rigoberto SIERRA RAVISANKAR Edited By : Rigoberto SIERRA RAVISANKAR Referred By : margo castellon md Acquired by : Catarina ramosOrem Community HospitalHISTORY PHYSICALon [id number] PHYSICALHNO ID: [id number] Author: COLETTE DESAI PA-C Service: ? Author Type: Physician Electronic Maintenance Supervisor Type: H&P Filed: 07/16/2025 14:34 Note Text: SERVICE DATE: 07/13/2025 SERVICE TIME: 2:34 PM Surgeon: Margo Casetllon MD Type of surgery: LAPAROSCOPIC CHOLECYSTECTOMY POSSIBLE OPEN Patient scheduled for surgery on 07/24/25 Surgery Location: [facility] BP 110/46 Pulse 66 Ht 4' 9 [...] PAST SURGICAL HISTORY OF 2002 tracheostomy, from [facility] PAST SURGICAL HISTORY OF 2022 [...] each nostril two times a day. fexofenadine (ALEXA) 180 mg tablet Take 180 [...] care of self; that (more content not included)...NormalCleveland Clinic Mercy HospitalCNOVon 02-21-2159OTORJftbox Visit (OTOLMN) KARUNA REYNAGA ([id number]) 1945 F Date Time Provider Department 07/10/25 4:00 PM HUMBLE SIMEON OTOLMN During your visit today, we recorded the following information about you: Humble Simeon MD 07/12/2025 3:03 PM Signed SECTION OF OTOLOGY, NEUROTOLOGY AND LATERAL SKULL BASE SURGERY Head and Neck [place], [facility] Quintin Sloan PA-C Chief Complaint: Concern for [...] allergies and has been using Flonase and Alexa, which her daughter believes have helped with the fluid in her ears. She was evaluated by Quintin who identified fluid in her right ear. Past Medical History: She has a past medical history of Stroke ([facility]) and Traumatic brain injury (HCC). Past Surgical [...] PRN. 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 Mary'[facility] Visit (CDISMN) KARUNA REYNAGA ([id number]) 1945 F Date Time Provider Department 07/10/25 3:00 PM ANASTASIA KRAUS During your visit today, we recorded the following information about you: Anastasia Kraus, AUD 07/10/2025 3:52 PM Signed [facility] Head and Neck Department Section of Audiology TYMPANOMETRY ONLY Name: Karuna Reynaga [facility]#: [id number] Date of Service: 07/10/2025 Date of : 1945 Age: [age] year old Referred by: Humble Simeon MD Referred for: Evaluation of suspected change in hearing, tinnitus, or balance. Referral documented: In an order in [facility] (procedures tab) Karuna Reynaga was seen for [...] evaluation of middle ear function. CPT code: 34316 RIGHT EAR: Normal ME function. LEFT EAR: Normal ME function. RECOMMENDATIONS *Continue medical follow up with Humble Simeon MD. *Return for audiogram (60 minutes) on 07/14/2025 if medically indicated. Fransisco Colon, [facility]-A Towel Cabinet Repairer CALDERON Abbrev- iation Definition Degree of hearing [...] of both eustachian tubes [H69.93] Order(s):HEARING TEST/AUDIOGRAM [[id number]] Order #: [id number]: 1 Prescriptions as of 07/10/2025 - cannabidiol [...] nostril two times a day. - fexofenadine (ALEXA) 180 mg tablet Take 180 [...] 06/29/2020 Encounter Status:Closed by ANASTASIA KRAUS on 07/10/25NormalCwestern reserve hospitaland [facility] ClevelandHEARING TEST/AUDIOGRAMon 40-06-8452Qvjabymdv ClinicXR LUMBAR SPINE 2-3 VIEWSon 33-50-6712OR LUMBAR SPINE 2-3 VIEWSEXAMINATION: XR LUMBAR SPINE 2-3 VIEWS TECHNIQUE: 3 [...] of the lumbar spine. ELECTRONICALLY SIGNED BY: Lucas Hoyos AvailableXR THORACIC SPINE 2 VIEWSon 20-54-5395KL THORACIC SPINE 2 VIEWSEXAM: XR THORACIC SPINE 2 VIEWS HISTORY: back pain TECHNIQUE: 3 views of the thoracic spine obtained. COMPARISON: Chest radiographs February 22, 2024 FINDINGS: Mild dextrocurvature. Thoracic vertebral body heights are maintained. Intervertebral disc heights are maintained. Multilevel degenerative endplate spurring. IMPRESSION: No acute osseous abnormality. Degenerative changes of the thoracic spine. ELECTRONICALLY SIGNED BY: Lucas Hoyos AvailableCNOVon 40-84-9629ECPTEjnnao Visit ([facility]) KARUNA REYNAGA ([id number]) 1945 F Date Time Provider Department 06/09/25 3:00 PM MARGO CASTELLON During your visit today, we recorded the following information about you: Temperature Pulse Respiration Blood pressure 98 degrees 64/minute 14/minute 112/58 Weight 58.3 kg Margo Castellon MD 06/17/2025 2:43 PM Signed SERVICE [...] and recently underwent a CT scan at [facility], which revealed a 11 mm gallstone [...] reflux management. Karuna has no history of ND or blood clots. PAST MEDICAL HISTORY Diagnosis [...] times a day., Disp: , Rfl: fexofenadine (ALEXA) 180 mg tablet, Take 180 mg by [...] tablet twice daily., Disp (more content not included)...NormalMercy Hospital [id number] (GIGI) KARUNA REYNAGA ([id number]) 1945 F Date Time Provider Department 06/09/25 MARGO CASTELLON During your visit today, we recorded the following information about you: Prakash Padilla 06/09/2025 5:08 PM Signed Surgery Scheduling Form: Scan on 06/09/2025 5:07 PM by Prakash Padilla: Surgery Scheduling Form 06/09/2025 Trini Bateman 06/16/2025 8:07 AM Addendum Our office received medical clearance letter from Courtney Lockhart NP, scanned into patient's chart. Note: pt is schd to see Dr William (Neurologist) on 06/24 at 3p [facility]. Will follow up. Thank you. Trini Bateman 06/30/2025 8:05 AM Addendum Called and spoke to patient's daughter Nadira, surgery scheduled on 07/[address] Castellon in [place]. Lap [place] poss open poss grams - gen 90 mins23 hr obsvpt prefers PM call patient's daughter Nadira with arrival time, +Plavix +DM: Ozempic Pending thinner/Ozempic - letter faxed (received medical clearance but no mention stopping Plavix or Ozempic) Thank you. Trini Bateman 06/30/2025 8:04 AM Addendum Printable under scanned documents. Trini Bateman 06/30/2025 8:35 AM Signed Notified pt's daughter Nadira, they are aware to stop Plavix 5 days and Ozempic 7 days prior, Nadira states Dr Burton's office also call them to advise stopping meds. Thank you. Allergies As of Date: 06/09/2025 Noted Allergy Reaction DELETED: DARVOCET A500 (PROPOXYPH*06/29/2020 2 - Rash LATEX 06/29/2009 2 - Rash MIDAZOLAM 01/09/2023 1 - Mental Status Change OPIOIDS - MORPHINE ANALOGUES 12/26/2022 1 - Mental Status Change 16 - Unknown Comments: Other Reaction(s): unknown PENICILLINS 06/29/2009 2 - Rash PROPOXYPHENE 08/21/2023 14 - Other: See Comments Comments: Other Reaction(s): unknown DELETED: STRAWBERRIES 06/29/2009 2 - Rash SULFA (SULFONAMIDE ANTIBIOTICS) 06/29/2009 2 - Rash Date Reviewed: 06/09/2025 Reviewed by: Alexa Jimenez MA - Fully Assessed Reason for Visit: Schedule Surgery [1330] Emery Wheel Molder - Other [3602] Prescriptions as of 07/31/2025 - brexpiprazole (REXULTI) 0.25 mg tablet Take [...] nostril two times a day. - fexofenadine (ALEXA) 180 mg tablet Take 180 [...] tablet daily. Problem List As Of Date 06/09/2025 Noted Resolved Cough [R05.9] 06/29/2020 Letter Text Encounter Status:Closed by PRAKASH PADILLA on 07/31/25[facility] 59-11-0457CODTTqdphw Visit (OTOLTW) KARUNA REYNAGA ([id number]) 1945 F Date Time Provider Department 06/02/25 3:25 PM QUINTIN SLOAN OTOLTW During your visit today, we recorded the following information about you: Quintin Sloan PA-C 06/10/2025 2:13 PM Signed SECTION OF OTOLOGY Department of Otolaryngology - Head and Neck Surgery [facility] Surgical [place], [facility] History of Present Illness Ms. KARUNA REYNAGA is a 80 year old year old female presenting to the clinic for evaluation of her right ear effusion. Patient has dementia and daughter provides history. referred by No referring provider defined for this encounter. And is a patient of DO Jamal Ayers ([facility]) [address] [id number] Communication will be via the electronic record [...] prior to her symptoms starting. Did take Alexa previously, as well as Zyrtec. She has continued with the Alexa. Otorrhea: denies Facial Numbness, Weakness or Tingling: [...] each nostril two times a day. fexofenadine (ALEXA) 180 mg tablet Take 180 [...] ttl pk-yrs) Types: Cigarettes (more content not included)...[facility] ABDOMEN PELVIS W IV CONTRASTon 64-84-2672YO ABDOMEN PELVIS W IV CONTRASTEXAM: CT ABDOMEN PELVIS W IV CONTRAST History: [...] present within the otherwise unremarkable appearing gallbladder. Thespleen, stomach, pancreas, and adrenal glands appear within [...] Colonic diverticulosis without diverticulitis. ELECTRONICALLY SIGNED BY: Hi HoyosNot AvailableCT chest w conon 09-55-1929AY chest w [facility] [place] [address] [place] [address] CT Scan Report Signed with Addenda Patient: Karuna Reynaga MR#: [id number] 289 : 1945 Acct:[id number] Age/Sex: 80 / F ADM Date: 05/07/25 Loc: CT Room: Type: [facility] Attending Dr: Jamal Alvarez DO Copies to: Jamal Alvarez DO Ordering Provider: Jamal Alvarez DO Date of Service: 05/07/25 CT/CT chest w con: LOCALIZED ENLARGED LYMPH NODES ADDENDUM 1 Right hilar lymph node assessment. decrease in size of right hilar lymphadenopathy. This is likely reactive. No progression of adenopathy. Impression dictated by: Jamal Bird M.D. 05/11/2025 8:54 AM Dictation Location: [place] [address] Addendum Dictated By: Jamal Bird DO Addendum [...] Bird M.D. 05/07/2025 10:46 PM Dictation Location: [place] [address] Transcribed By: [facility] 05/07/252245 Dictated By: Jamal Bird DO 05/07/252241 Signed By: 05/07/25 2246[facility] Physician GroupISTAT XRAY CREon 05-07-2025 Creatinine [Mass/Vol]0.8 mg/dL0.6 - 1.3 mg/dLST. MARK'S HOSPITAL HealthcareComment on above: ER/ESD physician is notified/shown all ISTAT results. Critical values may be confirmed by laboratory testing if deemed necessary by ER attending doctor. ISTAT GFRNOOK HealthcareMercy McCune-Brooks HospitalISTAT XRay CREon 62-61-3250FEULP GFR>60.0 NormalThe [facility] Physician GroupComment on above:Result Comment: PERFORMED BY: [place] [address] PATHOLOGIST JANITORIAL ASSISTANT JANICE LEIGH M.D.Performed By: #### MG #### [place] [address] USANo Panel InformationOrdered By: Jamal Alvarez on 87-53-4737Fhiisrr Estimated GFR (eGFR)> 60.0[facility] Whole blood creatinine measurementOrdered By: Jamal Alvarez on 05-07-2025 Creatinine [Mass/Vol]0.8 mg/dLNormal0.6-1.3FWood County Hospital Comment on above:ER/ESD physician is notified/shown all ISTAT results.Critical values may be confirmed by laboratorytesting ifdeemed necessary by ER attending doctor.Result Comment: ER/ESD physician is notified/shown all ISTAT results. Critical values may be confirmed by laboratory testing if deemed necessary by ER attending doctor.Performed By: #### MG #### [place] [address] USAGlucose Poct Glucometerson 32-31-4038Vyoxntq [Mass/Vol]101 mg/dLNormJackson Memorial Hospital Physician GroupComment on above:Result Comment: Random Glucose Reference Range is dependent on time and content of last meal. Glucose of more than 200 mg/dL in a nonstressed, ambulatory subject supports the diagnosis of Diabetes Mellitus. PERFORMED BY: [facility] [address] [place] [address] PATHOLOGIST JANITORIAL ASSISTANT JANICE LEIGH M.D.Performed By: #### GLULS #### Point of Care testing ,Aureliano 05-04-2025L Specimen: [id number] Received: 05/04/25 Status: DHARMESH Mace Num: [id number] Spec Type: Surgical Subm Dr: Flex Ramos MD Tissues: A Esophagus Biopsy (ESOPHAGUS BX R/O BARRETTS) Procedures: HE/2, Gross/Micro L4 Age/ Patient Sex Location Account Attending Physician Karuna Reynaga 80/F [id number] Flex Ramos MD SPEC NUM: [id number] RECD: 05/04/25 STATUS: DHARMESH GOMEZRavi NUM: [id number] SANTOSH: 05/04/[address] [facility] [address]: Flex Ramos MD ENTERED: 05/04/[address] [facility] [address]: ASTON TYPE: Surgical DEPT: S [...] A1. (1, in toto, TW) CPT Codes 33877 Specimen: [id number] Received: 05/04/25 Status: DHARMESH Mace Num: [id number] Spec Type: Surgical Subm Dr: Flex Ramos MD Tissues: A Esophagus Biopsy (ESOPHAGUS BX R/O BARRETTS) Procedures: Keith ONEILL/Tresa L4 Patient: Karuna Reynaga [id number] (Continued) Signed (signature on file) Oleg Luis Jr., MD 05/07/[address] [place] [address] Physician GroupXR SACRUM COCCYX 2+ VIEWSon 03-71-9545BP SACRUM COCCYX 2+ VIEWSExam: XR SACRUM COCCYX 2+ VIEWS Reason for [...] electronically signed and approved by the interpreting radiologist.NormalNot AvailableCNPNon [id number] (PULMMN) KARUNA REYNAGA ([id number]) 1945 F Date Time Provider Department 03/24/25 IRINA DUBOSE During your visit today, we recorded the following information about you: Tanner Madison 03/24/2025 2:13 PM Signed Uploaded external CT report from [facility], dated 03/13/2025. Please allow time delay for [...] - Rash Date Reviewed: 12/24/2024 Reviewed by: Sohail William MD, PhD - Fully Assessed Reason [...] Resolved Cough [R05.9] 06/29/2020 Encounter Status:Closed by TANNER MADISON on 03/24/25NoSheltering Arms HospitalBasophils Auto (Bld) [#/Vol]Ordered By: Catalina Navarro on 03-14-2025 Basophils (Bld) [#/Vol]Automated basophil count0.0-0.2FWood County HospitalBasophils [#/volume] in Blood by Automated countOrdered By: Catalina Navarro on 58-37-1508Ldjmosilj (Bld) [#/Vol]0.0 10*3/uLNormal0.0-0.2FWood County HospitalComment on above:Order Comment: PER RN PARDEEP AND FAMILY REQUEST PT IS AGGRESSIVEResult Comment: PERFORMED BY: [place] [address] PATHOLOGIST JANITORIAL ASSISTANT ROZ MAE M.D.Performed By: #### CBC, HS TROP #### [facility] [address] [place] [address] USABasophils/100 WBC Auto (Bld)Ordered By: Catalina Navarro on 49-25-0773Ukttnftgp/100 WBC (Bld)Automated basophil %.[facility] HospitalBasophils/100 leukocytes in Blood by Automated countOrdered By: Catalina Navarro on 49-41-4715Jmfznrloj/100 WBC (Bld)0.7 %Normal.[facility] HospitalComment on above:Order Comment: PER RN PARDEEP AND FAMILY REQUEST PT IS AGGRESSIVEPerformed By: #### CBC, HS TROP #### [facility] [address] [place], [place] [id number] USABlood Cultureon 30-39-3162Qxlwdfoo identified Cx Nom (Bld) NO GROWTH 5 DAYS PERFORMED BY: [place] [address] PATHOLOGIST JANITORIAL ASSISTANT ROZ MAE M.D.NormalThe [facility] Physician GroupComment on above: Performed By: #### GLULS #### Point of Care testing ,Bacteria identified Cx Nom (Bld)NO GROWTH 5 DAYS PERFORMED BY: [place] [address] PATHOLOGIST JANITORIAL ASSISTANT ROZ MAE M.D.[facility] Physician GroupComment on above: Performed By: #### GLULS #### Point of Care testing ,CT angio chest PE protocolon 82-07-3806GH angio chest PE protocolGREENE [facility] Main [place] [address] [place] [address] Scan Report Signed Patient: Karuna Reynaga MR#: [id number] 289 : 1945 Acct:[id number] Age/Sex: 80 / F ADM Date: 03/14/25 Loc: Room: [address] [place] [address] Type: ADM IN Attending Dr: Renan Murguia [...] Muñoz M.D. 03/14/2025 8:40 AM Dictation Location: [place] [address] Transcribed By: [facility] 03/14/25 0840 Dictated By: Jose Muñoz II, MD 03/14/25 0830 Signed By: 03/14/25 0840NoNovant Health [facility] Physician GroupComplete Blood Count Auto Diffon 03-15-9165Yvjh Corpuscular HGB Conc32.9 g/vQHzbruk52.0-35.0[facility] Physician GroupComment on above:Order Comment: PER RN PARDEEP AND FAMILY REQUEST PT IS AGGRESSIVEPerformed By: #### CBC, HS TROP #### [facility] [address] [place] [address] USAMonocytes/100 WBC (Bld)24.48 %High0.00-20.00[facility] Physician GroupComment on above:Order Comment: PER RN PARDEEP AND FAMILY REQUEST PT IS AGGRESSIVEResult Comment: For adults in ED, MDW > 20.0 may be associated with a higher risk of sepsis during the first 12 hrs of hospital admissionPerformed By: #### CBC, HS TROP #### [facility] [address] [place] [address] USANRBC%0.1 /100{WBC}Normal0-0.5[facility] Physician Group Comment on above:Order Comment: PER RN PARDEEP AND FAMILY REQUEST PT IS AGGRESSIVE Performed By: #### CBC, HS TROP #### [facility] [address] [place] [address] USAECG 12 lead ECGon 80-74-9656JJL 12 lead [facility] [place] [address] [place] [id number] Electrocardiograph Report Signed Patient: Karuna Reynaga MR#: [id number] 289 : 1945 Acct:[id number] Age/Sex: 80 / F ADM Date: 03/14/25 Loc: 3T Room: [address] [place] [address] Type: ADM IN Attending Dr: Renan Murguia [...] Rightward axis Confirmed by Loraine Mccallum MD ([id number]) on 03/14/2025 9:20:47 AM Referred By: Electronically Signed By: Loraine Mccallum MD Transcribed By: MUS Signed By Loraine Mccallum MD 03/[address] [place] [address] echo limited 88-41-1157YTN echo [facility] [place] [address] [place] [address] Echocardiogram Signed Patient: Karuna Reynaga MR#: [id number] 289 : 1945 Acct:[id number] Age/Sex: 80 / F ADM Date: 03/14/25 Loc: Room: [address] [place] [address] Type: ADM IN Attending Dr: Renan Murguia MD Ordering Provider: Praveena Garcia MD Date of Service: 03/14/2508/29/1323 [facility] echo limited: Assess EF and wall motion [...] 17.2 cm + + + + + + + : Electronically : : signed by: Praveena : : : : Radha : : : : on: 03/14/2025, : : : : 2:49 PM : + + + Transcribed By: SCV Performed At: 03/14/25 1328 Signed By: Praveena Garcia MD 03/14/25 1449[facility] Eosinophils Auto (Bld) [#/Vol]Ordered By: Catalina Navarro on 25-99-3187Ubtcdlryqxy (Bld) [#/Vol]Automated eosinophil count0.0-0.45[facility] Eosinophils [#/volume] in Blood by Automated countOrdered By: Catalina Navarro on 53-61-8162Ifowcrmnivm (Bld) [#/Vol]0.1 10*3/uLNormal0.0-0.45[facility] HospitalComment on above:Order Comment: PER RN PARDEEP AND FAMILY REQUEST PT IS AGGRESSIVEPerformed By: #### CBC, HS TROP #### [facility] [address] [place] [address] USAEosinophils/100 WBC Auto (Bld)Ordered By: Catalina Navarro on 24-07-8314Vlxsjzseghn/100 WBC (Bld)Automated eosinophil %.[facility] HospitalEosinophils/100 leukocytes in Blood by Automated countOrdered By: Catalina Navarro on 47-02-7435Kbgfdjvyskg/100 WBC (Bld)1.0 %Normal.[facility] HospitalComment on above:Order Comment: PER RN PARDEEP AND FAMILY REQUEST PT IS AGGRESSIVEPerformed By: #### CBC, HS TROP #### [facility] [address] [place] [address] USAErythrocyte distribution width Auto (RBC) [Ratio]Ordered By: Catalina Navarro on 44-58-8265Puvefhlwglh distribution width (RBC) [Ratio] Erythrocyte distribution width [Ratio] by Automated count11.9-15.3FWood County HospitalErythrocyte distribution width [Ratio] by Automated count Ordered By: Catalina Navarro on 39-45-6632Cvpkianjfpg distribution width (RBC) [Ratio]13.6 %Cagkgr10.9-15.3FWood County HospitalComment on above: Order Comment: PER RN PARDEEP AND FAMILY REQUEST PT IS AGGRESSIVEPerformed By: #### CBC, HS TROP #### [facility] [address] [place] [address] USAErythrocytes [#/volume] in Blood by Automated countOrdered By: Catalina Navarro on 28-82-8050CQM (Bld) [#/Vol]4.27 10*6/uLNormal3.60-5.00 [facility] HospitalComment on above:Order Comment: PER RN PARDEEP AND FAMILY REQUEST PT IS AGGRESSIVEPerformed By: #### CBC, HS TROP #### [facility] [address] [place] [id number] USAHematocrit Auto (Bld) [Volume fraction]Ordered By: Catalina Navarro on 27-14-3211Sntnibrtxv (Bld) [Volume fraction]Hematocrit [Volume Fraction] of Blood by Automated count34.0-46.4FWood County Hospital Hematocrit [Volume Fraction] of Blood by Automated countOrdered By: Catalina Navarro on 95-02-6192Nytstntpls (Bld) [Volume fraction]38.5 %Fqjtpw67.0-46.4FWood County HospitalComment on above:Order Comment: PER RN PARDEEP AND FAMILY REQUEST PT IS AGGRESSIVEPerformed By: #### CBC, HS TROP #### [facility] [address] [place] [address] USAHemoglobin [Mass/volume] in BloodOrdered By: Catalina Navarro on 20-37-5924Szdlseecjn (Bld) [Mass/Vol]Hemoglobin [Mass/volume] in Blood 11.8-15.4FWood County HospitalHemoglobin (Bld) [Mass/Vol]12.7 g/dL Hsnahf90.8-15.4FWood County HospitalComment on above:Order Comment: PER RN PARDEEP AND FAMILY REQUEST PT IS AGGRESSIVEPerformed By: #### CBC, HS TROP #### [facility] [address] [place] [address] USALaboratory - Microbiology and Antimicrobial susceptibility Ordered By: Loraine Mccallum on 18-88-2416Xkkcrwzh identified Cx Nom (Bld)NO GROWTH 5 DAYSOhiohealth Mansfield HospitalBacteria identified Cx Nom (Bld)NO GROWTH 5 DAYSOhiohealth Mansfield HospitalLactate [Moles/volume] in Serum or PlasmaOrdered By: Loraine Mccallum on 25-07-7960[place] [Moles/Vol]Lactate [Moles/volume] in Serum or Plasma0.5-1.9[facility] HospitalComment on above:Lactic Acid reference range has been updated to 0.5 1.9 mmol/L and the critical range of 2.0 or greater.Lactate [Moles/Vol]1.3 mmol/LNormal0.5-1.9 [facility] HospitalComment on above:Lactic Acid reference range has been updated to 0.5 1.9 mmol/L and the critical range of 2.0 or greater. Result Comment: Lactic Acid reference range has been updated to 0.5 ? 1.9 mmol/L and the critical range of 2.0 or greater. PERFORMED BY: [facility] [address] [place] [address] PATHOLOGIST JANITORIAL ASSISTANT ROZ MAE M.D.Performed By: #### GLULS #### Point of Care testing ,Leukocytes [#/volume] corrected for nucleated erythrocytes in Blood by Automated counOrdered By: Catalina Navarro on 52-21-1460NLY corrected for nucl RBC Auto (Bld) [#/Vol]Leukocytes [#/volume] corrected for nucleated erythrocytes in Blood by Automated coun3.8-11.6FWood County HospitalWBC corrected for nucl RBC Auto (Bld) [#/Vol]6.9 10*3/uL3.8-11.6FWood County HospitalLeukocytes [#/volume] in Blood by Automated countOrdered By: Catalina Navarro on 27-96-8096JKO (Bld) [#/Vol]6.9 10*3/uLNormal3.8-11.6FWood County HospitalComment on above:Order Comment: PER RN PARDEEP AND FAMILY REQUEST PT IS AGGRESSIVEPerformed By: #### CBC, HS TROP #### [facility] [address] [place] [address] USALymphocytes Auto (Bld) [#/Vol]Ordered By: Catalina Navarro on 26-27-7197Efgtprsgjdk (Bld) [#/Vol]Lymphocytes [#/volume] in Blood by Automated count1.00-4.8[facility] HospitalLymphocytes [#/volume] in Blood by Automated countOrdered By: Catalina Navarro on 19-92-4552Anrncpnghrc (Bld) [#/Vol] 1.2 10*3/uLNormal1.00-4.8[facility] HospitalComment on above:Order Comment: PER RN PARDEEP AND FAMILY REQUEST PT IS AGGRESSIVEPerformed By: #### CBC, HS TROP #### [place] [id number] USALymphocytes/100 WBC Auto (Bld)Ordered By: Catalina Navarro on 50-63-4329Vomrznbeeyb/100 WBC (Bld)Lymphocytes/100 leukocytes in Blood by Automated count.[facility] HospitalLymphocytes/100 leukocytes in Blood by Automated countOrdered By: Catalina Navarro on 83-93-6301Sooanqwfyiu/100 WBC (Bld)16.8 %Normal.[facility] HospitalComment on above:Order Comment: PER RN PARDEEP AND FAMILY REQUEST PT IS AGGRESSIVEPerformed By: #### CBC, HS TROP #### [place] [id number] [facility] Auto (RBC) [Entitic mass]Ordered By: Catalina Navarro on 81-53-0630EXT (RBC) [Entitic mass]MCH [Entitic mass] by Automated count24.7-34.3 [facility] [Entitic mass] by Automated countOrdered By: Catalina Navarro on 01-33-8232PCP (RBC) [Entitic mass]29.7 ycVdtpsg73.7-34.3 [facility] HospitalComment on above:Order Comment: PER RN PARDEEP AND FAMILY REQUEST PT IS AGGRESSIVEPerformed By: #### CBC, HS TROP #### [address] [place] [address] [facility]HC Auto (RBC) [Mass/Vol]Ordered By: Catalina Navarro on 27-77-0051WXBR (RBC) [Mass/Vol]MCHC [Mass/volume] by Automated count32.0-35.0 [facility] SystemHC (RBC) [Mass/Vol]32.9 g/dL32.0-35.0 [facility] HospitalMCV Auto (RBC) [Entitic vol]Ordered By: Catalina Navarro on 16-03-1663FLY (RBC) [Entitic vol]MCV [Entitic volume] by Automated yqlhb38-667XgseanlakOhiohealth Mansfield HospitalMCV [Entitic volume] by Automated countOrdered By: Catalina Navarro on 36-75-9220ZCQ (RBC) [Entitic vol]90.2 fLNormal 80-100[facility] HospitalComment on above:Order Comment: PER RN PARDEEP AND FAMILY REQUEST PT IS AGGRESSIVEPerformed By: #### CBC, HS TROP #### [address] [address] USAMagnesium [Mass/volume] in Serum or PlasmaOrdered By: Catalina Navarro on 31-46-3590Snkizgryx [Mass/Vol]Magnesium [Mass/volume] in Serum or Plasma1.9-2.7FWood County HospitalMagnesium [Mass/Vol]1.9 mg/dL Normal1.9-2.7FWood County HospitalComment on above:Order Comment: PER RN PARDEEP AND FAMILY REQUEST PT IS AGGRESSIVEResult Comment: PERFORMED BY: [place] [id number] PATHOLOGIST JANITORIAL ASSISTANT ROZ MAE M.D.Performed By: #### MG #### [place] [id number] USAMonocyte distribution width [Entitic volume] in Blood by AutomatedOrdered By: Catalina Navarro on 62-70-7940Zgetjdql distribution width Auto (Bld) [Entitic vol]Monocyte distribution width [Entitic volume] in Blood by AutomatedHigh0.00-20.00[facility] HospitalComment on above:For adults in ED, MDW > 20.0 may be associated with a higher risk of sepsis during the first 12 hrs of hospital admissionMonocyte distribution width Auto (Bld) [Entitic vol]24.48 %High0.00-20.00[facility] HospitalComment on above:For adults in ED, MDW > 20.0 may be associated with a higher risk of sepsis during the first 12 hrs of hospital admissionMonocytes Auto (Bld) [#/Vol] Ordered By: Catalina Navarro on 51-13-2422Qqzcobujt (Bld) [#/Vol]Automated blood monocyte count0.0-0.8[facility] HospitalMonocytes [#/volume] in Blood by Automated countOrdered By: Catalina Navarro on 58-92-9755Tialorulf (Bld) [#/Vol]0.6 10*3/uLNormal0.0-0.8[facility] HospitalComment on above:Order Comment: PER RN PARDEEP AND FAMILY REQUEST PT IS AGGRESSIVEPerformed By: #### CBC, HS TROP #### [facility] [address] [place] [address] USAMonocytes/100 WBC Auto (Bld)Ordered By: Catalina Navarro on 46-24-3067Oxygfgefb/100 WBC (Bld)Automated monocyte %.[facility] HospitalMonocytes/100 leukocytes in Blood by Automated countOrdered By: Catalina Navarro on 77-41-4640Yfrvtndxo/100 WBC (Bld)8.7 %Normal.[facility] HospitalComment on above:Order Comment: PER RN PARDEEP AND FAMILY REQUEST PT IS AGGRESSIVEPerformed By: #### CBC, HS TROP #### [facility] [address] [place] [address] USANeutrophils Auto (Bld) [#/Vol]Ordered By: Catalina Navarro on 97-10-8049Jaoqvsfpzrf (Bld) [#/Vol]Neutrophils [#/volume] in Blood by Automated count1.8-7.7FWood County HospitalNeutrophils [#/volume] in Blood by Automated countOrdered By: Catalina Navarro on 14-90-6812Nwmjseasbpw (Bld) [#/Vol]5.0 10*3/uLNormal1.8-7.7FWood County HospitalComment on above:Order Comment: PER RN PARDEEP AND FAMILY REQUEST PT IS AGGRESSIVEPerformed By: #### CBC, HS TROP #### [facility] [address] [place] [address] USANeutrophils/100 WBC Auto (Bld)Ordered By: Catalina Navarro on 43-14-7785Adrsgxycxyh/100 WBC (Bld)Automated neutrophil %.[facility] HospitalNeutrophils/100 leukocytes in Blood by Automated countOrdered By: Catalina Navarro on 19-95-2564Yirgqswnqwu/100 WBC (Bld)72.8 %Normal.[facility] HospitalComment on above:Order Comment: PER RN PARDEEP AND FAMILY REQUEST PT IS AGGRESSIVEPerformed By: #### CBC, HS TROP #### [facility] [address] [place] [id number] USANucleated erythrocytes [Presence] in Blood by Automated countOrdered By: Catalina Navarro on 63-32-1879Rsvctdget RBC Auto Ql (Bld)Nucleated erythrocytes [Presence] in Blood by Automated count0-0.5FWood County HospitalNucleated RBC Auto Ql (Bld)0.1 /100{WBC}0-0.5FWood County HospitalPlatelet mean volume Auto (Bld) [Entitic vol]Ordered By: Catalina Navarro on 91-93-5276Cgzrpwwh mean volume (Bld) [Entitic vol]Platelet mean volume [Entitic volume] in Blood by Automated count6.3-10.7FWood County HospitalPlatelet mean volume [Entitic volume] in Blood by Automated countOrdered By: Catalina Navarro on 20-24-3589Gonxjkuo mean volume (Bld) [Entitic vol]8.3 fL Normal6.3-10.7FWood County HospitalComment on above:Order Comment: PER RN PARDEEP AND FAMILY REQUEST PT IS AGGRESSIVEPerformed By: #### CBC, HS TROP #### [facility] [address] [place] [address] USAPlatelets Auto (Bld) [#/Vol]Ordered By: Catalina Navarro on 44-11-5533Kyctdczja (Bld) [#/Vol]Platelets [#/volume] in Blood by Automated vhirp655-732RitdlavcdOhiohealth Mansfield HospitalPlatelets [#/volume] in Blood by Automated countOrdered By: Catalina Navarro on 25-71-1367Zycwnnzez (Bld) [#/Vol]169 10*3/lNLfacve916-672NqoyqymnuOhiohealth Mansfield HospitalComment on above:Order Comment: PER RN PARDEEP AND FAMILY REQUEST PT IS AGGRESSIVEPerformed By: #### CBC, HS TROP #### [facility] [address] [place] [address] USARBC Auto (Bld) [#/Vol]Ordered By: Catalina Navarro on 12-83-3780QNR (Bld) [#/Vol]Erythrocytes [#/volume] in Blood by Automated count 3.60-5.00[facility] HospitalTroponin I High Sensitivityon 25-41-2409Valkqwen I High Fjiddjjyqfv827Ffy scale high0-15[facility] Physician GroupComment on above:Order Comment: PER RN PARDEEP AND FAMILY REQUEST PT IS AGGRESSIVEResult Comment: Critical Result : Called to and read back by: CATALINA BANUELOS/3T at: 03/14/2025 12:01:03 by:[id number] The Troponin units of report have been changed to meet the Chest Pain Accreditation requirement, element EC5.M1l2. Troponin units are changed from pg/ml to ng/L. Also, the decimal is removed and results are in whole numbers. PERFORMED BY: [place] [address] PATHOLOGIST JANITORIAL ASSISTANT ROZ MAE M.D.Performed By: #### CBC, HS TROP #### [place] [address] USATroponin I High Mqatfcyjent777Yze scale high0-15[facility] Physician GroupComment on above:Result Comment: Critical Result : Called to and read back by: BEVERLY GOMEZ at: 03/14/2025 01:01:41 by:[id number] The Troponin units of report have been changed to meet the Chest Pain Accreditation requirement, element EC5.M1l2. Troponin units are changed from pg/ml to ng/L. Also, the decimal is removed and results are in whole numbers. PERFORMED BY: [place] [address] PATHOLOGIST JANITORIAL ASSISTANT ROZ MAE M.D.Performed By: #### HS TROP #### [place] [address] USATroponin I.cardiac [Mass/volume] in Serum or Plasma by Detection limit <= 0.01 ng/Ordered By: Catalina Navarro on 59-97-1560Nykrfrqw I.cardiac DL <= 0.01 ng/mL [Mass/Vol]Troponin I.cardiac [Mass/volume] in Serum or Plasma by Detection limit <= 0.01 ng/Critically high[address] [place], [place] [address]Comment on above:Critical Result : Called to and read back by: CATALINA BANUELOS/Yemi at: 03/14/2025 12:01:03 by:[id number] units of report have been changed to meet the Chest Pain Accreditation requirement, element EC5.M1l2. Troponin units are changed from pg/ml to ng/L. Also, the decimal is removed and results are in whole numbers.Troponin I.cardiac [Mass/volume] in Serum or Plasma by Detection limit <= 0.01 ng/Ordered By: Loraine Mccallum on 29-15-9582Nyttsavr I.cardiac DL <= 0.01 ng/mL [Mass/Vol]Troponin I.cardiac [Mass/volume] in Serum or Plasma by Detection limit <= 0.01 ng/Critically high [address] [place], [place] [address]Comment on above:Critical Result : Called to and read back by: BEVERLY GOMEZ at: 03/14/2025 01:01:41 by:[id number] Troponin units of report have been changed to meet the Chest Pain Accreditation requirement, element EC5.M1l2. Troponin units are changed from pg/ml to ng/L. Also, the decimal is removed and results arein whole numbers.Troponin I.cardiac [Mass/volume] in Serum or Plasma by Detection limit <= 0.01 ng/mLOrdered By: Catalina Navarro on 30-84-8726Vggswvqw I.cardiac DL <= 0.01 ng/mL [Mass/Vol]397 ng/L Critically high0-15Ohio[facility] Mansfield HospitalComment on above:Critical Result : Called to and read back by: CATALINA BANUELOS/Yemi at: 03/14/2025 12:01:03 by:[id number] units of report have been changed to meet the Chest Pain Accreditation requirement, element EC5.M1l2. Troponin units are changed from pg/ml to ng/L. Also, the decimal is removed and results are in whole numbers.WBC Auto (Bld) [#/Vol]Ordered By: Catalina Navarro on 88-16-8265JYE (Bld) [#/Vol] Leukocytes [#/volume] in Blood by Automated count3.8-11.6FWood County HospitalAppearance of UrineOrdered By: Loraine Mccallum on 03-13-2025 Appearance (U)Urine appearanceCleSt. Mary's Medical CenterAppearance (U)ClearNormalClearOhiohealth Mansfield HospitalComment on above:Order Comment: Name Collection Type:: Clean-Voided MidstreamPerformed By: #### GLULS #### Point of Care testing ,BNP ser/plasOrdered By: Loraine Mccallum on 50-65-7473Ohaqcsfrswe peptide B (Bld) [Mass/Vol]28.0 pg/mLNormal5-100Ohiohealth Mansfield HospitalComment on above:Result Comment: PERFORMED BY: [place] [address] PATHOLOGIST JANITORIAL ASSISTANT ROZ MAE M.D.Performed By: #### MG #### [place] [address] USABacteria [Presence] in Urine by AutomatedOrdered By: Loraine Mccallum on 76-80-5318Zzfoeacz Auto Ql (U)Bacteria [Presence] in Urine by AutomatedNone SeenOhiohealth Mansfield HospitalBacteria Auto Ql (U)None seen [HPF]None UK HealthcareBasic Metabolic Panelon 59-48-9425Ihapkekoua Clr Calc Clhqqdlj35.20NoNovant Health [facility] Comment on above:Result Comment: PERFORMED BY: [place] [address] PATHOLOGIST JANITORIAL ASSISTANT ROZ MAE M.D.Performed By: #### MG #### [place] [address] USAGFR/1.73 sq M.predicted MDRD (S/P/Bld) [Vol rate/Area] mL/min/{1.73_m2}NormalThe [facility] Physician GroupComment on above:Performed By: #### MG #### [place] [address] USABasophils Auto (Bld) [#/Vol]Ordered By: Loraine Mccallum on 72-66-1354Mjocbctfw (Bld) [#/Vol]Automated basophil count0.0-0.2FWood County HospitalBasophils/100 WBC Auto (Bld)Ordered By: Loraine Mccallum on 72-73-2545Yrlrkuhpy/100 WBC (Bld)Automated basophil %.Ohiohealth Mansfield HospitalBilirubin Test strip Ql (U)Ordered By: Loraine Mccallum on 10-41-6480Ysoqznnjs Ql (U)Bilirubin.total [Presence] in Urine by Test strip NegativeOhiohealth Mansfield HospitalBilirubin Ql (U)NegativeNegative [facility] HospitalBioFire Not Detectedon 05-47-3081HvvOowc Not DetectedNot detectedNormalNot DetecteThe [facility] Physician GroupComment on above:Result Comment: This is a duplicate RP2.1 COVID (PCR) result to be used for statistical tracking purpose only. PERFORMED BY: [place] [id number] PATHOLOGIST JANITORIAL ASSISTANT ROZ MAE M.D.Performed By: #### RESP PANEL UPP., BIOFIRECOVNOTDE #### [place] [address] USACOVID-19 Detected/Not DetectedOrdered By: Loraine Mccallum on 71-60-8994ROJA-CoV-2 (COVID-19) RNA JAYRO+non-probe Ql (Nph)Not detectedNot DetecteFWood County HospitalComment on above:This is a duplicate RP2.1 COVID (PCR) result to be used for statistical tracking purpose only.CT head/brain wo conon 86-70-4059HZ head/brain wo [facility] [place] [address] [place] [address] CT Scan Report Signed Patient: Karuna Reynaga MR#: [id number] 289 : 1945 Acct:[id number] Age/Sex: 80 / F ADM Date: 03/13/25 [...] Muñoz M.D. 03/13/2025 10:19 PM Dictation Location: [place] [address] Transcribed By: [facility] 03/13/252218 Dictated By: Jose Muñoz II, MD 03/13/252212 Signed By: 03/13/25 2219[facility] Physician GroupCalcium [Mass/volume] in Serum or PlasmaOrdered By: Loraine Mccallum on 52-27-2327Sxpgucw [Mass/Vol]Calcium [Mass/volume] in Serum or Plasma8.6-10.3FWood County HospitalCalcium [Mass/Vol]9.6 mg/dLNormal8.6-10.3FWood County HospitalComment on above:Performed By: #### MG #### [facility] [address] [id number] USACarbon dioxide, total [Moles/volume] in Serum or Plasma Ordered By: Loraine Mccallum on 17-47-8572NG1 [Moles/Vol]Carbon dioxide, total [Moles/volume] in Serum or Wtwiwo32.0-31.0Ohiohealth Mansfield HospitalCO2 [Moles/Vol]28.5 mmol/THmkloq86.0-31.0Ohio[facility] Mansfield HospitalComment on above:Performed By: #### MG #### [facility] [address] [place], [place] [address] USAChloride [Moles/volume] in Serum or PlasmaOrdered By: Loraine Mccallum on 75-27-0074Alzmjhfl [Moles/Vol]Chloride [Moles/volume] in Serum or Dxiwra42-503Nvjtlqc[address] [place], [place] [address]Chloride [Moles/Vol]102 mmol/L Dlfngz46-598Tsfomfyya[address] [place], [place] [address]Comment on above:Performed By: #### MG #### [facility] [address] [place], [place] [address] USAColor Auto (U)Ordered By: Loraine Mccallum on 03-13-2025 Color (U)Color of Urine by AutoYellowOhiohealth Mansfield HospitalColor of Urine by AutoOrdered By: Loraine Mccallum on 38-65-4716Fnasc (U)YellowNormalYellow Ohio[facility] Mansfield HospitalComment on above:Order Comment: Name Collection Type:: Clean-Voided MidstreamPerformed By: #### GLULS #### Point of Care testing ,Complete Blood Count Auto Diffon 65-50-5828Dqzhxtfyd (Bld) [#/Vol]0.0 10*3/uL Normal0.0-0.2The [facility] Physician GroupComment on above:Result Comment: PERFORMED BY: [place] [address] PATHOLOGIST JANITORIAL ASSISTANT ROZ MAE M.D.Performed By: #### MG #### [place] [address] USABasophils/100 WBC (Bld)0.7 %Normal.The [facility] Physician GroupComment on above:Performed By: #### MG #### [place] [address] USAEosinophils (Bld) [#/Vol]0.1 10*3/uLNormal0.0-0.45The [facility] Physician GroupComment on above:Performed By: #### MG #### [place] [address] USAEosinophils/100 WBC (Bld)1.1 %Normal.The [facility] Physician GroupComment on above:Performed By: #### MG #### [place] [address] USAErythrocyte distribution width (RBC) [Ratio]13.6 %Normal 11.9-15.3The [facility] Physician GroupComment on above:Performed By: #### MG #### [place] [address] USAHematocrit (Bld) [Volume fraction]40.5 %Ixuxsl56.0-46.4The [facility] Physician GroupComment on above:Performed By: #### MG #### [place] [address] USAHemoglobin (Bld) [Mass/Vol]13.5 g/oGFjsxhz41.8-15.4The [facility] Physician GroupComment on above:Performed By: #### MG #### [place] [address] USALymphocytes (Bld) [#/Vol]1.3 10*3/uLNormal1.00-4.8The [facility] Physician GroupComment on above:Performed By: #### MG #### [place] [address] USALymphocytes/100 WBC (Bld)23.1 %Normal.The [facility] Physician GroupComment on above:Performed By: #### MG #### [address]H (RBC) [Entitic mass]29.9 poVpmjuf39.7-34.3The [facility] Physician GroupComment on above:Performed By: #### MG #### [address]V (RBC) [Entitic vol]89.5 pFAahtuy44-552Bip [facility] Physician GroupComment on above:Performed By: #### MG #### [place] [address] USAMean Corpuscular HGB Conc33.5 g/gBNomscu39.0-35.0The [facility] Physician GroupComment on above:Performed By: #### MG #### [place] [address] USAMonocytes (Bld) [#/Vol]0.5 10*3/uLNormal0.0-0.8The [facility] Physician GroupComment on above:Performed By: #### MG #### [place] [address] USAMonocytes/100 WBC (Bld)22.62 %High0.00-20.00The [facility] Physician GroupComment on above:Result Comment: For adults in ED, MDW > 20.0 may be associated with a higher risk of sepsis during the first 12 hrs of hospital admissionPerformed By: #### MG #### [place] [address] USAMonocytes/100 WBC (Bld)9.3 %Normal.The [facility] Physician GroupComment on above:Performed By: #### MG #### [address] StreetNeutrophils (Bld) [#/Vol]3.7 10*3/uLNormal1.8-7.7The [facility] Physician GroupComment on above:Performed By: #### MG #### [facility] [address] [place] [address] USANeutrophils/100 WBC (Bld)65.8 %Normal.The [facility] Physician GroupComment on above:Performed By: #### MG #### [facility] [address] [place] [address] USANRBC%0.1 /100{WBC}Normal0-0.5The [facility] Comment on above:Performed By: #### MG #### [facility] [address] [place] [address] USAPlatelet mean volume (Bld) [Entitic vol]8.2 fLNormal 6.3-10.7The [facility] Physician GroupComment on above:Performed By: #### MG #### [facility] [address] [place] [address] USAPlatelets (Bld) [#/Vol]206 10*3/bXEghkby307-774Gge [facility] Physician GroupComment on above:Performed By: #### MG #### [facility] [address] [place] [address] USARBC (Bld) [#/Vol]4.52 10*6/uLNormal3.60-5.00The [facility] Physician GroupComment on above:Performed By: #### MG #### [facility] [address] [place] [address] USAWBC (Bld) [#/Vol]5.6 10*3/uLNormal3.8-11.6The [facility] Physician GroupComment on above:Performed By: #### MG #### [facility] [address] [place] [address] USACreatinine [Mass/volume] in Serum or PlasmaOrdered By: Loraine Mccallum on 76-07-9617Nzbksunkoh [Mass/Vol]Creatinine [Mass/volume] in Serum or Plasma0.60-1.20Ohio[facility] HospitalCreatinine [Mass/Vol] 0.74 mg/dLNormal0.60-1.20Ohio[facility] HospitalComment on above: Performed By: #### MG #### [facility] [address] [place], [place] [address] USACrystals [Presence] in Urine by AutomatedOrdered By: Loraine Mccallum on 25-88-1068Eztkzjba Auto Ql (U)Crystals [Presence] in Urine by AutomatedOhiohealth Mansfield HospitalCrystals Auto Ql (U)2+ [HPF]Ohio[facility]field HospitalD-Dimer High Sensitivityon 85-60-2060P-Dimer High Sensitivity<435Ihhuso2-668Nbx [facility] Physician GroupComment on above:Result Comment: The reference range for D-dimer is [...] coagulation studies. Please contact the laboratory at [phone] for redraw instructions. PERFORMED BY: [address] [place] [address] PATHOLOGIST JANITORIAL ASSISTANT ROZ MAE M.D.Performed By: #### DDIMER #### [facility] [address] [place], [place] [address] USADipstick and Microscopicon 73-87-0987Tneupznz,UrineNone SeenNormalNone SeenThe [facility] Physician GroupComment on above:Order Comment: Name Collection Type:: Clean-Voided MidstreamPerformed By: #### GLULS #### Point of Care testing ,Bilirubin,UrineNegativeNormalNegativeThe [facility] Physician GroupComment on above:Order Comment: Name Collection Type:: Clean-Voided MidstreamPerformed By: #### GLULS #### Point of Care testing ,Glucose Ql (U)NormalNormalNormalThe [facility] Physician GroupComment on above: Order Comment: Name Collection Type:: Clean-Voided MidstreamPerformed By: #### GLULS #### Point of Care testing ,Hyaline Casts,UrineNoneNormal0-8The [facility] Physician GroupComment on above: Order Comment: Name Collection Type:: Clean-Voided MidstreamPerformed By: #### GLULS #### Point of Care testing ,Mucus,UrineRareNormalThe [facility] Physician GroupComment on above:Order Comment: Name Collection Type:: Clean-Voided MidstreamResult Comment: PERFORMED BY: [address] [place] [address] PATHOLOGIST JANITORIAL ASSISTANT ROZ MAE M.D.Performed By: #### GLULS #### Point of Care testing ,Nitrite,UrineNegativeNormalNegativeThe [facility] Physician GroupComment on above:Order Comment: Name Collection Type:: Clean-Voided MidstreamPerformed By: #### GLULS #### Point of Care testing ,Occult Blood,UrineTraceHighNegativeThe [facility] Physician GroupComment on above:Order Comment: Name Collection Type:: Clean-Voided MidstreamResult Comment: PERFORMED BY: [address] [place] [address] PATHOLOGIST JANITORIAL ASSISTANT ROZ MAE M.D.Performed By: #### GLULS #### Point of Care testing ,Othe Crystals,Urine2+NormalThe [facility] Physician GroupComment on above:Order Comment: Name Collection Type:: Clean-Voided MidstreamPerformed By: #### GLULS #### Point of Care testing ,RBC,Ojyuj0-3Lzom3-2Lvw [facility] Physician GroupComment on above:Order Comment: Name Collection Type:: Clean-Voided MidstreamPerformed By: #### GLULS #### Point of Care testing ,Specificy [place],Urine1.801Qpxw4.001-1.030[facility] Physician GroupComment on above:Order Comment: Name Collection Type:: Clean-Voided MidstreamPerformed By: #### GLULS #### Point of Care testing ,Squamous Epithelial Cell,Iurjc0-1Gqahwe5-3Idw [place] Physician GroupComment on above:Order Comment: Name Collection Type:: Clean-Voided MidstreamPerformed By: #### GLULS #### Point of Care testing ,Urobilinogen,UrineNormalNormalNormJackson Memorial Hospital Physician GroupComment on above:Order Comment: Name Collection Type:: Clean-Voided MidstreamPerformed By: #### GLULS #### Point of Care testing ,WBC,Tyaqa2-8Ydtroa3-4Wqj [facility] Physician GroupComment on above:Order Comment: Name Collection Type:: Clean-Voided MidstreamPerformed By: #### GLULS #### Point of Care testing ,ECG 12 lead ECGon 99-30-2238YUF 12 lead [facility]GGRE[facility] [place] [address] Electrocardiograph Report Signed Patient: Karuna Reynaga MR#: [id number] 289 : 1945 Acct:[id number] Age/Sex: 80 / F ADM Date: 03/13/25 [...] sinus rhythm Confirmed by Loraine Mccallum MD ([id number]) on 03/13/2025 9:36:55 PM Referred By: Electronically Signed By: Loraine Mccallum MD Transcribed By: MUS Signed By Loraine Mccallum MD 07/30 2137[facility] Physician GroupEosinophils Auto (Bld) [#/Vol] Ordered By: Loraine Mccallum on 02-86-3312Cxzebqniodt (Bld) [#/Vol]Automated eosinophil count0.0-0.45Ohiohealth Mansfield HospitalEosinophils/100 WBC Auto (Bld)Ordered By: Loraine Mccallum on 46-98-3617Ybfkwkrspvl/100 WBC (Bld) Automated eosinophil %.Ohiohealth Mansfield HospitalEpithelial cells.squamous [#/area] in Urine sediment by Automated countOrdered By: Loraine Mccallum on 88-42-9258Avoxswyzuj cells.squamous Auto (Urine sed) [#/Area] Epithelial cells.squamous [#/area] in Urine sediment by Automated count0-2 [facility] HospitalEpithelial cells.squamous Auto (Urine sed) [#/Area]1-2 [HPF]0-2FWood County HospitalErythrocyte distribution width Auto (RBC) [Ratio]Ordered By: Loraine Mccallum on 78-87-8387Lavvvinsgho distribution width (RBC) [Ratio]Erythrocyte distribution width [Ratio] by Automated count11.9-15.3FWood County HospitalErythrocytes [#/area] in Urine sediment by Automated countOrdered By: Loraine Mccallum on 73-80-2243IIL Auto (Urine sed) [#/Area]Erythrocytes [#/area] in Urine sediment by Automated countHigh0-4FWood County HospitalRBC Auto (Urine sed) [#/Area]5-9 [HPF]High0-4FWood County HospitalFibrin D-dimer [Presence] in Platelet poor plasma by Latex agglutinationOrdered By: Loraine Mccallum on 18-61-6191Fxokpj D-dimer LA Ql (PPP)Fibrin D-dimer [Presence] in Platelet poor plasma by Latex agglutination0-243Ohiohealth Mansfield HospitalComment on above:The reference range for D-dimer is <243 ng/mL [...] coagulation studies. Please contact the laboratory at [phone] for redraw instructions.Fibrin D-dimer LA Ql (PPP)< 200 ng/mL0-243Ohiohealth Mansfield HospitalComment on above:The reference range for D-dimer is <243 ng/mL D-dimer units.D-dimer results must be used in conjunction with a clinicalpretest probability (PTP) assessment model for deep veinthrombosis (DVT) and pulmonary embolism (PE). Results <230ng/mL d- dimer units can be used as a negative predictor inpatients with low or moderate probability for DVT/PE.Results above the exclusion threshold of 230 ng/ml D- dimerunits for DVT/PE may indicate the need for furtherdiagnostic testing.D- Dimer can be increased in hospitalized patients due toco-morbid conditions.A hematocrit value greater than 55% may lead to inaccurate results in coagulation testing. Patients having hematocrit values >55% require a special collection tube for coagulation studies. Please contact the laboratory at [phone] for redraw instructions.Glucose [Mass/volume] in Serum or PlasmaOrdered By: Loraine Mccallum on 50-15-4563Eukeixv [Mass/Vol]Glucose [Mass/volume] in Serum or Plasma [address] StreetComment on above:ADA recommended reference rangeRandom Glucose Reference Range is dependent on time and content of last meal. Glucose of more than 200 mg/dL in a nonstressed, ambulatory subject supports the diagnosisof Diabetes Mellitus.Glucose [Mass/Vol]116 mg/dL Zxpo38-239VlysgdnwfOhiohealth Mansfield HospitalComment on above:ADA recommended reference rangeRandom Glucose Reference Range is dependent on time and content of last meal. Glucose of more than 200 mg/dL in a nonstressed, ambulatory subject supports the diagnosisof Diabetes Mellitus.Result Comment: Random Glucose Reference Range is dependent on time and content of last meal. Glucose of more than 200 mg/dL in a nonstressed, ambulatory subject supports the diagnosis of Diabetes Mellitus. ADA recommended reference rangePerformed By: #### MG #### [facility] [address] [id number] USAGlucose [Mass/volume] in Urine by Test stripOrdered By: Loraine Mccallum on 36-83-2135Vawtgls Test strip (U) [Mass/Vol]Glucose [Mass/volume] in Urine by Test stripNormAdena Health System Glucose Test strip (U) [Mass/Vol]Normal mg/dLNormAdena Health SystemHematocrit Auto (Bld) [Volume fraction]Ordered By: Loraine Mccallum on 54-96-2629Zvifswptbb (Bld) [Volume fraction]Hematocrit [Volume Fraction] of Blood by Automated count34.0-46.4FWood County HospitalHemoglobin Test strip Ql (U)Ordered By: Loraine Mccallum on 14-28-0079Yrmwnoblnn Ql (U) Hemoglobin [Presence] in Urine by Test stripHighNegAshtabula County Medical CenterHemoglobin Ql (U)TraceHighNegAshtabula County Medical CenterHemoglobin [Mass/volume] in BloodOrdered By: Loraine Mccallum on 03-13-2025 Hemoglobin (Bld) [Mass/Vol]Hemoglobin [Mass/volume] in Blood11.8-15.4FWood County HospitalHyaline casts [#/area] in Urine sediment by Automated countOrdered By: Loraine Mccallum on 70-50-0811Qhmcrvs casts Auto (Urine sed) [#/Area]Hyaline casts [#/area] in Urine sediment by Automated count0-8Ohio[facility] Mansfield HospitalHyaline casts Auto (Urine sed) [#/Area]None [LPF]0-8 [facility] HospitalKetones Test strip Ql (U)Ordered By: Loraine Mccallum on 33-03-2358Fvuvenf Ql (U)Ketones [Presence] in Urine by Test strip NegativeOhiohealth Mansfield HospitalKetones [Presence] in Urine by Test stripOrdered By: Loraine Mccallum on 21-29-3231Vgnvjdy Ql (U)NegativeNormal NegativeOhiohealth Mansfield HospitalComment on above:Order Comment: Name Collection Type:: Clean-Voided MidstreamPerformed By: #### GLULS #### Point of Care testing ,Leukocyte esterase [Presence] in Urine by Test stripOrdered By: Loraine Mccallum on 17-06-4739Rjshwbxea esterase Test strip Ql (U)Leukocyte esterase [Presence] in Urine by Test stripNegativeOhiohealth Mansfield HospitalLeukocyte esterase Test strip Ql (U)NegativeNormalNegativeOhiohealth Mansfield HospitalComment on above:Order Comment: Name Collection Type:: Clean-Voided MidstreamPerformed By: #### GLULS #### Point of Care testing ,Leukocytes [#/area] in Urine sediment by Automated countOrdered By: Loraine Mccallum on 81-29-2146FUO Auto (Urine sed) [#/Area]Leukocytes [#/area] in Urine sediment by Automated count0-4FWood County HospitalWBC Auto (Urine sed) [#/Area]1-2 [HPF]0-4FWood County HospitalLeukocytes [#/volume] corrected for nucleated erythrocytes in Blood by Automated counOrdered By: Loraine Mccallum on 32-16-8419SCT corrected for nucl RBC Auto (Bld) [#/Vol] Leukocytes [#/volume] corrected for nucleated erythrocytes in Blood by Automated coun3.8-11.6FWood County HospitalLymphocytes Auto (Bld) [#/Vol] Ordered By: Loraine Mccallum on 69-03-8873Zxhvmiimfyj (Bld) [#/Vol]Lymphocytes [#/volume] in Blood by Automated count1.00-4.8[facility] Lymphocytes/100 WBC Auto (Bld)Ordered By: Loraine Mccallum on 03-13-2025 Lymphocytes/100 WBC (Bld)Lymphocytes/100 leukocytes in Blood by Automated count. [facility] Auto (RBC) [Entitic mass]Ordered By: Loraine Mccallum on 72-41-4209SZQ (RBC) [Entitic mass]MCH [Entitic mass] by Automated count24.7-34.3FKettering HealthHC Auto (RBC) [Mass/Vol]Ordered By: Loraine Mccallum on 93-29-0787BQCM (RBC) [Mass/Vol]MCHC [Mass/volume] by Automated count32.0-35.0[facility] SystemV Auto (RBC) [Entitic vol]Ordered By: Loraine Mccallum on 56-91-8146QJA (RBC) [Entitic vol]MCV [Entitic volume] by Automated npatn00-603DhzynszuwOhiohealth Mansfield HospitalMonocyte distribution width [Entitic volume] in Blood by AutomatedOrdered By: Loraine Mccallum on 84-56-6889Euzjfwae distribution width Auto (Bld) [Entitic vol] Monocyte distribution width [Entitic volume] in Blood by AutomatedHigh0.00-20.00 [facility] HospitalComment on above:For adults in ED, MDW > 20.0 may be associated with a higher risk of sepsis during the first 12 hrs of hospital admissionMonocytes Auto (Bld) [#/Vol]Ordered By: Loraine Mccallum on 66-46-4974Msamsrnai (Bld) [#/Vol]Automated blood monocyte count0.0-0.8Ohio[facility] Mansfield HospitalMonocytes/100 WBC Auto (Bld)Ordered By: Loraine Mccallum on 31-06-5422Xhiglxajl/100 WBC (Bld)Automated monocyte %.Ohiohealth Mansfield HospitalMucus [Presence] in Urine by AutomatedOrdered By: Loraine Mccallum on 99-51-1742Bbkqh Auto Ql (U)Mucus [Presence] in Urine by AutomatedOhiohealth Mansfield HospitalMucus Auto Ql (U)Rare [LPF][facility] HospitalNatriuretic peptide B [Mass/Vol]Ordered By: Loraine Mccallum on 03-13-2025 Natriuretic peptide B (Bld) [Mass/Vol]BNP ser/plas5-100Ohio[facility] Mansfield HospitalNeutrophils Auto (Bld) [#/Vol]Ordered By: Loraine Mccallum on 75-64-6519Fdbltybdtrx (Bld) [#/Vol]Neutrophils [#/volume] in Blood by Automated count1.8-7.7FWood County HospitalNeutrophils/100 WBC Auto (Bld) Ordered By: Loraine Mccallum on 24-08-7849Vitzgfdmxdc/100 WBC (Bld)Automated neutrophil %.Ohio[facility]field HospitalNitrite Test strip Ql (U)Ordered By: Loraine Mccallum on 44-74-1461Hovzoyz Ql (U)Nitrite [Presence] in Urine by Test stripNegativeOhiohealth Mansfield HospitalNitrite Ql (U)Negative NegativeOhiohealth Mansfield HospitalNo Panel InformationOrdered By: Loraine Mccallum on 65-42-0976Iapdkzmss GFR (CKD-EPI)> 60.0 mL/MinOhiohealth Mansfield HospitalPharmacy Creatinine Clearance (Chem46.20Ohio[facility] HospitalNucleated erythrocytes [Presence] in Blood by Automated countOrdered By: Loraine Mccallum on 35-47-9866Gritcvdxn RBC Auto Ql (Bld)Nucleated erythrocytes [Presence] in Blood by Automated count0-0.5FWood County Hospital Platelet mean volume Auto (Bld) [Entitic vol]Ordered By: Loraine Mccallum on 98-31-0506Ikwqcfpr mean volume (Bld) [Entitic vol]Platelet mean volume [Entitic volume] in Blood by Automated count6.3-10.7FWood County Hospital Platelets Auto (Bld) [#/Vol]Ordered By: Loraine Mccallum on 07-22-0545Ylymnnjji (Bld) [#/Vol]Platelets [#/volume] in Blood by Automated riyus121-512DjevwwpfhOhiohealth Mansfield HospitalPotassium [Moles/volume] in Serum or PlasmaOrdered By: Loraine Mccallum on 11-90-9600Nrepmxrul [Moles/Vol]Potassium [Moles/volume] in Serum or Plasma3.5-5.1FWood County HospitalPotassium [Moles/Vol]3.7 mmol/LNormal3.5-5.1FWood County HospitalComment on above:Performed By: #### MG #### [place] [address] USAProtein Test strip (U) [Mass/Vol]Ordered By: Loraine Mccallum on 42-63-8902Wyapbpl (U) [Mass/Vol]Protein [Mass/volume] in Urine by Test stripPrinceton Community HospitalNegAshtabula County Medical CenterProtein [Mass/volume] in Urine by Test stripOrdered By: Loraine Mccallum on 02-66-7628Hqwwyhu (U) [Mass/Vol]30 mg/dLHighNegAshtabula County Medical CenterComment on above: Order Comment: Name Collection Type:: Clean-Voided MidstreamPerformed By: #### GLULS #### Point of Care testing ,RBC Auto (Bld) [#/Vol]Ordered By: Loraine Mccallum on 14-08-9145IXP (Bld) [#/Vol] Erythrocytes [#/volume] in Blood by Automated count3.60-5.00Ohio[facility] Mansfield HospitalRespiratory (Upper) Panel, PCRon 59-54-8119Iqqwvifanrv (Upper) Panel, PCRAdenovirus Not detected Bordetella parapertussis Not detected Chlamydia [...] COVID-19 Detected/Not Detected Not detected Blank Space FLUA TEST INCLUDES Influenza A tests for the following clinically FLUA TEST INCLUDES significant subtypes: FLUA TEST INCLUDES - Influenza A FLUA TEST INCLUDES - Influenza A H1 FLUA TEST INCLUDES - Influenza A H1 2009 FLUA TEST INCLUDES - Influenza A H3 Blank Space PERFORMED BY: [facility] [address] [place] [address] PATHOLOGIST JANITORIAL ASSISTANT ROZ MAE M.D.NormalThe [facility] Physician GroupComment on above: Performed By: #### RESP PANEL UPP., BIOFIRECOVNOTDE #### [facility] [address] [place] [address] USARespiratory pathogens DNA and RNA panel - Nasopharynx by JAYRO with non-probe detectionOrdered By: Loraine Mccallum on 86-44-0881Brmapzndwgj pathogens DNA and RNA panel JAYRO+non-probe (Nph)Respiratory pathogens DNA and RNA panel - Nasopharynx by JAYRO with non-probe detectionOhiohealth Mansfield HospitalRespiratory pathogens DNA and RNA panel JAYRO+non-probe (Nph)Wilson Street Hospitalerum or plasma anion gap determinationOrdered By: Loraine Mccallum on 40-97-8892Udygz gap [Moles/Vol]Serum or plasma anion gap determination6.0-15.0Ohio[facility]field HospitalAnion gap [Moles/Vol]11.2 mmol/LNormal6.0-15.0[facility]field HospitalComment on above:Performed By: #### MG #### [facility] [address] [place] [address] USASodium [Moles/volume] in Serum or PlasmaOrdered By: Loraine Mccallum on 50-92-4125Zccope [Moles/Vol]Sodium [Moles/volume] in Serum or Plasma 136-145Wilson Street Hospitalodium [Moles/Vol]138 mmol/LNormal 136-145Ohio[facility] Mansfield HospitalComment on above:Performed By: #### MG #### [facility] [address] [place] [address] USASpecific gravity Test strip (U) [Rel density]Ordered By: Loraine Mccallum on 63-19-4770Vqjdmhcn gravity (U) [Rel density]Specific gravity of Urine by Test stripHigh1.001-1.030[address] Hospitalpecific gravity (U) [Rel density]1.988Xvgb2.001-1.030[facility] Troponin I High Sensitivityon 81-89-7220Jvbbsfvn I High Nbpxnyrwukf673Ltz scale high0-15The [facility] Physician GroupComment on above:Result Comment: Critical Result : Called to and read back by: ULI LOPES at: 03/13/2025 23:56:50 by:[id number] The Troponin units of report have been changed to meet the Chest Pain Accreditation requirement, element EC5.M1l2. Troponin units are changed from pg/ml to ng/L. Also, the decimal is removed and results are in whole numbers. PERFORMED BY: [facility] [address] [place] [address] PATHOLOGIST JANITORIAL ASSISTANT ROZ MAE M.D.Performed By: #### MG #### [facility] [address] [place], [place] [address] USAUrea nitrogen [Mass/volume] in Serum or PlasmaOrdered By: Loraine Mccallum on 12-87-0801Uixa nitrogen [Mass/Vol]Urea nitrogen [Mass/volume] in Serum or PlasmaTewksbury State HospitalOhiohealth Mansfield HospitalUrea nitrogen [Mass/Vol]26 mg/dL21 Kent StreetComment on above: Performed By: #### MG #### [facility] [address] [place] [address] USAUrine Cultureon 39-64-8562Yxionuwk identified Cx Nom (U) >100,000 colonies/ml mixed bacterial skin contaminants 2 Days PERFORMED BY: [address] [address] PATHOLOGIST JANITORIAL ASSISTANT ROZ MAE M.D.NormalAscension Sacred Heart Hospital Emerald Coast Physician GroupComment on above: Performed By: #### MG #### [facility] [address] [place] [address] USAUrine cultureOrdered By: Loraine Mccallum on 03-13-2025 Bacteria identified Cx Nom (U)2 DaysOhiohealth Mansfield Hospital Urobilinogen Test strip (U) [Mass/Vol]Ordered By: Loraine Mccallum on 03-13-2025 Urobilinogen (U) [Mass/Vol]Urobilinogen [Mass/volume] in Urine by Test strip [facility] HospitalUrobilinogen (U) [Mass/Vol]Normal mg/dL [facility] HospitalWBC Auto (Bld) [#/Vol]Ordered By: Loraine Mccallum on 23-34-5636MJK (Bld) [#/Vol]Leukocytes [#/volume] in Blood by Automated count3.8-11.6FWood County HospitalX-ray reportOrdered By: Jose Muñoz on 34-27-1326Wfnjk reportGREENE MEMORIAL [facility] Main [place] [address] [place] [address] XRay Report Signed Patient: Karuna Reynaga MR#: [id number] : 1945 Acct:[id number] Age/Sex: 80 / F ADM Date: Loc: [...] Muñoz M.D. 03/13/2025 7:19 PM Dictation Location: [place] [address] Transcribed By: [facility] 03/13/251918 Dictated By: Jose Muñoz II, MD 03/13/251917 Signed By: 03/13/251918 [facility] Work Phone: xr chest 2V*on 72-01-3403AA chest 2V*[facility] [place] [address] XRay Report Signed Patient: Karuna Reynaga MR#: [id number] : 1945 Acct:[id number] Age/Sex: 80 / F ADM Date: 03/13/25 [...] Muñoz M.D. 03/13/2025 7:19 PM Dictation Location: [place] [address] Transcribed By: BERTA 03/13/251918 Dictated By: Jose Muñoz II, MD 03/13/251917 Signed By: 03/13/251918[facility] Physician GrouppH Test strip (U)Ordered By: Loraine Mccallum on 00-14-9891rZ (U)pH of Urine by Test strip5.0-9.0Ohio[facility] Mansfield HospitalpH of Urine by Test stripOrdered By: Loraine Mccallum on 11-14-2383yJ (U)5.5 [pH]Normal5.0-9.0Ohio[facility] Mansfield HospitalComment on above:Order Comment: Name Collection Type:: Clean-Voided MidstreamPerformed By: #### GLULS #### Point of Care testing ,Urine Cultureon 68-62-1756Zleytbzw identified Cx Nom (U)10,000 colonies/ml mixed bacterial skin contaminants 2 Days PERFORMED BY: [place] [address] PATHOLOGIST JANITORIAL ASSISTANT ROZ MAE M.D.NormalThe [facility] Physician GroupComment on above: Performed By: #### MG #### [place] [address] USAUrine cultureOrdered By: Jamal Alvarez on 02-25-2025 Bacteria identified Cx Nom (U)Urine cultureOhiohealth Mansfield Hospital Bacteria identified Cx Nom (U)2 DaysOhiohealth Mansfield HospitalHemoglobin a1c with eagon 34-48-0201Jmwonld [Mass/Vol]126 mg/dLMercy McCune-Brooks HospitalHbA1c (Bld) [Mass fraction]6 %High4.3 - 5.6 %[facility] HealthcareComment on above:Increased risk for diabetes: 5.7 - 6.4 diabetes: >6.4 glycemic control for adults with diabetes: <7.0 Interpretation and review of laboratory resultsAbnormalMercy McCune-Brooks HospitalNOOK IsfxfpujnvK0G with Estimated Average Gluon 06-35-2218Zgmirmc [Mass/Vol]126 mg/dL NormalThe [facility] Physician GroupComment on above:Result Comment: PERFORMED BY: [place] [address] PATHOLOGIST JANITORIAL ASSISTANT ROZ MAE M.D.Performed By: #### MG #### [place] [address] USAAlanine aminotransferase [Enzymatic activity/volume] in Serum or PlasmaOrdered By: Jamal Alvarez on 90-31-0869FXB [Catalytic activity/Vol]Alanine aminotransferase [Enzymatic activity/volume] in Serum or Plasma[address] [place], [place] [address]ALT [Catalytic activity/Vol]15 U/L Normal[address] [place], [place] [address]Comment on above:Performed By: #### CBC, HS TROP #### [facility] [address] [place] [address] USAAlbumin [Mass/volume] in Serum or Plasma by Bromocresol green (BCG) dye binding methoOrdered By: Jamal Alvarez on 28-91-8178Ckfngpq BCG dye [Mass/Vol]Albumin [Mass/volume] in Serum or Plasma by Bromocresol green (BCG) dye binding metho3.5-5.7FWood County HospitalAlbumin BCG dye [Mass/Vol]4.2 g/dL3.5-5.7FWood County HospitalAlkaline phosphatase [Enzymatic activity/volume] in Serum or PlasmaOrdered By: Jamal Alvarez on 26-06-1673FVX [Catalytic activity/Vol]Alkaline phosphatase [Enzymatic activity/volume] in Serum or Jgjeex17-881Uqkspzzxj[address] [place], [place] [address]ALP [Catalytic activity/Vol]64 U/RGxajgz75-437Tlbazbkhd[address] [place] [address] Comment on above:Performed By: #### CBC, HS TROP #### [facility] [address] [place] [id number] USAAspartate aminotransferase [Enzymatic activity/volume] in Serum or PlasmaOrdered By: Jamal Alvarez on 62-65-8456KVL [Catalytic activity/Vol]Aspartate aminotransferase [Enzymatic activity/volume] in Serum or Vvpcmg62-10Buznettsb[address] [place], [place] [address]AST [Catalytic activity/Vol]16 U/L Mnggoo42-47Yjkpmpgar[address] [place], [place] [address]Comment on above:Performed By: #### CBC, HS TROP #### [facility] [address] [place] [id number] USABasophils Auto (Bld) [#/Vol]Ordered By: Jamal Alvarez on 04-29-5990Xtaowbunn (Bld) [#/Vol]Automated basophil count0.0-0.2FWood County HospitalBasophils [#/volume] in Blood by Automated countOrdered By: Jamal Alvarez on 38-34-1122Xwlmepwwl (Bld) [#/Vol]0.1 10*3/uLNormal0.0-0.2 [facility]field HospitalComment on above:Result Comment: PERFORMED BY: [place] [address] PATHOLOGIST JANITORIAL ASSISTANT ROZ MAE M.D.Performed By: #### CBC, HS TROP #### [place] [id number] USABasophils/100 WBC Auto (Bld)Ordered By: Jamal Alvarez on 31-25-8290Pyatgestf/100 WBC (Bld)Automated basophil %.[facility]field HospitalBasophils/100 leukocytes in Blood by Automated countOrdered By: Jamal Alvarez on 72-39-7421Ujsjevkgr/100 WBC (Bld)0.9 %Normal.Ohio[facility] Mansfield HospitalComment on above:Performed By: #### CBC, HS TROP #### [place] [address] USABilirubin.total [Mass/volume] in Serum or PlasmaOrdered By: Jamal Alvarez on 57-65-4116Kurqgrrnp [Mass/Vol]Bilirubin.total [Mass/volume] in Serum or Plasma0.3-1.0[facility] Bilirubin [Mass/Vol]0.4 mg/dLNormal0.3-1.0[facility] Comment on above:Performed By: #### CBC, HS TROP #### [facility] [address] [place] [address] USABlood estimated average glucose determination by estimation from glycated hemoglobinOrdered By: COURTNEY LOCKHART on 02-06-2025 Average glucose Estimated from glycated hemoglobin (Bld) [Mass/Vol]Glucose mean value [Mass/volume] in Blood Estimated from glycated hemoglobinOhiohealth Mansfield HospitalAverage glucose Estimated from glycated hemoglobin (Bld) [Mass/Vol]126 mg/dLOhiohealth Mansfield HospitalCBC W Auto Differential panel (Bld)on 40-17-6192Frhqizrcb (Bld) [#/Vol]0.1 10*3/uL0.0 - 0.2 10*3/uLNOMS HealthcareBasophils/100 WBC Manual cnt (Syn fld)0.9 %.NOMS HealthcareEosinophils (Bld) [#/Vol]0.3 10*3/uL0.0 - 0.45 10*3/uLNOMS HealthcareEosinophils/100 WBC Manual cnt (Syn fld)4.4 %.NOM HealthcareErythrocyte distribution width (RBC) [Ratio]13.2 %11.9 - 15.3 %[facility]OMS HealthcareHematocrit (Bld) [Volume fraction]40.2 %34.0 - 46.4 %[facility]OMS HealthcareHemoglobin (Bld) [Mass/Vol]13.4 g/dL11.8 - 15.4 g/dLNOMS HealthcareLymphocytes (Bld) [#/Vol]1.8 10*3/uL1.00 - 4.8 10*3/uLNOMS HealthcareLymphocytes/100 WBC Manual cnt (Syn fld)29.1 %.NOMS HealthcareMCH (RBC) [Entitic mass]29.9 pg24.7 - 34.3 pgNOMS HealthcareMCHC (RBC) [Mass/Vol] 33.4 g/dL32.0 - 35.0 g/dLNOMS HealthcareMCV (RBC) [Entitic vol]89.7 fL80 - 100 fLNOMS HealthcareMonocytes (Bld) [#/Vol]0.3 10*3/uL0.0 - 0.8 10*3/uLNOMS HealthcareMonocytes+Macrophages/100 WBC Manual cnt (Syn fld)4.9 %.NOMS HealthcareNeutrophils (Bld) [#/Vol]3.8 10*3/uL1.8 - 7.7 10*3/uLNOMS Healthcare Neutrophils/100 WBC Manual cnt (Syn fld)60.7 %.NOMS HealthcareNRBC0.1 /100{WBC}0 - 0.5 /100{WBC}NOMS HealthcarePlatelet mean volume (Bld) [Entitic vol]8.6 fL6.3 - 10.7 fLNOMS HealthcarePlatelets (Bld) [#/Vol]264 10*3/uL150 - 450 10*3/uLNOMS HealthcareRBC LM.HPF (Urine sed) [#/Area]4.48 10*6/uL3.60 - 5.00 10*6/uLNOMS HealthcareWBC (Bld) [#/Vol]6.3 10*3/uL3.8 - 11.6 10*3/uLNOMS HealthcareWBC LM.HPF (Urine sed) [#/Area]6.3 10*3/uL3.8 - 11.6 10*3/uLNOMS HealthcareNOMS HealthcareCalcium [Mass/volume] in Serum or PlasmaOrdered By: Jamal Alvarez on 40-24-6338Yauella [Mass/Vol]Calcium [Mass/volume] in Serum or Plasma8.6-10.3 [facility] HospitalCalcium [Mass/Vol]9.3 mg/dLNormal8.6-10.3 [facility] HospitalComment on above:Performed By: #### CBC, HS TROP #### [facility] [address] [place] [address] USACarbon dioxide, total [Moles/volume] in Serum or Plasma Ordered By: Jamal Alvarez on 47-48-3394MH7 [Moles/Vol]Carbon dioxide, total [Moles/volume] in Serum or Vmylyh96.0-31.0[facility] HospitalCO2 [Moles/Vol]30.4 mmol/PGbzlhl54.0-31.0[facility] HospitalComment on above:Performed By: #### CBC, HS TROP #### [facility] [address] [place] [address] USAChloride [Moles/volume] in Serum or PlasmaOrdered By: Jamal Alvarez on 62-78-6702Tlbtrajh [Moles/Vol]Chloride [Moles/volume] in Serum or Hafaua92-273Rjqcydt[address] [place], [place] [address]Chloride [Moles/Vol]103 mmol/L Xynxeq99-900KwwkfkyicOhiohealth Mansfield HospitalComment on above:Performed By: #### CBC, HS TROP #### [facility] [address] [place] [address] USACholesterol [Mass/volume] in Serum or PlasmaOrdered By: Jamal Alvarez on 71-55-7551Orafdrsjnxy [Mass/Vol]Cholesterol [Mass/volume] in Serum or Znxgcl465-452NwlaiizfyOhiohealth Mansfield HospitalComment on above:Chol less than 200 mg/dl low riskChol 201-239 mg/dl borderline riskChol 240 mg/dl and greater high riskCholesterol [Mass/Vol]175 mg/aOYsafbd520-020YebauytvyOhiohealth Mansfield HospitalComment on above:Chol less than 200 mg/dl low riskChol 201-239 mg/dl borderline riskChol 240 mg/dl and greater high riskResult Comment: Chol less than 200 mg/dl low risk Chol 201-239 mg/dl borderline risk Chol 240 mg/dl and greater high riskPerformed By: #### CBC, HS TROP #### [facility] [address] [place] [address] USACholesterol in HDL [Mass/volume] in Serum or PlasmaOrdered By: Jamal Alvarez on 41-22-3581Kgfqzcpzmfz in HDL [Mass/Vol]Serum or plasma high density lipoprotein (HDL) cholesterol yteykrhrkgr42-17UhrhemargOhiohealth Mansfield HospitalComment on above:HDL CHOL ATP-III CLASSIFICATION Cardiovascular RiskHDL > or equal to 60 mg/dL LOWHDL < 40 mg/dL HIGHCholesterol in HDL [Mass/Vol]72 mg/pFEubknw17-12MlpehdgzsOhiohealth Mansfield HospitalComment on above: HDL CHOL ATP-III CLASSIFICATION Cardiovascular RiskHDL > or equal to 60 mg/dL LOWHDL < 40 mg/dL HIGHResult Comment: HDL CHOL ATP-III CLASSIFICATION Cardiovascular Risk HDL > or equal to 60 mg/dL LOW HDL < 40 mg/dL HIGHPerformed By: #### CBC, HS TROP #### [facility] [address] [place] [address] USACholesterol in LDL Calc [Mass/Vol]Ordered By: Jamal Alvarez on 98-43-5058Egbpnmalzud in LDL [Mass/Vol]Cholesterol in LDL [Mass/volume] in Serum or Plasma by calculationOhiohealth Mansfield HospitalComment on above:LDL ATP III CLASSIFICATIONLDL less than 100 mg/dL OptimalLDL 100-129 mg/dL Near or above gsskzmoJYT222-507 mg/dL Borderline highLDL 160-189 mg/dL HighLDL greater than 189 mg/dL Very highCholesterol in LDL [Mass/Vol]84 mg/dL0Ohiohealth Mansfield HospitalComment on above:LDL ATP III CLASSIFICATIONLDL less than 100 mg/dL OptimalLDL 100-129 mg/dL Near or above jftuepzTZW320-737 mg/dL Borderline highLDL 160-189 mg/dL HighLDL greater than 189 mg/dL Very highCholesterol in VLDL Calc [Mass/Vol]Ordered By: Jamal Alvarez on 05-84-5269Uidfwlhebax in VLDL [Mass/Vol]Cholesterol in VLDL [Mass/volume] in Serum or Plasma by calculationOhiohealth Mansfield Hospital Cholesterol in VLDL [Mass/Vol]18 mg/dLOhiohealth Mansfield HospitalComplete Blood Count Auto Diffon 65-86-5665Ugkr Corpuscular HGB Conc33.4 g/dLNormal 32.0-35.0[facility] Physician GroupComment on above:Performed By: #### CBC, HS TROP #### [facility] [address] [place] [address] USANRBC%0.1 /100{WBC}Normal0-0.5The [facility] Comment on above:Performed By: #### CBC, HS TROP #### [facility] [address] [place] [address] USAComprehensive Metabolic Panelon 96-95-6327Gkqfmei [Mass/Vol]4.2 g/dLNormal3.5-5.7The [facility] Physician GroupComment on above: Performed By: #### CBC, HS TROP #### [facility] [address] [place] [address] USAGFR/1.73 sq M.predicted MDRD (S/P/Bld) [Vol rate/Area] mL/min/{1.73_m2}NormalThe [facility] Physician GroupComment on above:Performed By: #### CBC, HS TROP #### [facility] [address] [place] [address] USAComprehensive metabolic panelon 21-98-4541Qilvwxr [Mass/Vol]4.2 g/dL3.5 - 5.7 g/dLNOMS HealthcareAlbumin/Globulin [Mass ratio]1.4 {ratio}NOMS HealthcareALP [Catalytic activity/Vol]64 U/L34 - 104 U/LNOMS HealthcareALT [Catalytic activity/Vol]15 U/L7 - 52 U/LNOMS HealthcareAnion gap [Moles/Vol]10.9 mmol/L6.0 - 15.0 meq/LNOMS HealthcareAST [Catalytic activity/Vol]16 U/L13 - 39 U/LNOMS HealthcareBilirubin [Mass/Vol]0.4 mg/dL0.3 - 1.0 mg/dLNOMS HealthcareCalcium [Mass/Vol]9.3 mg/dL8.6 - 10.3 mg/dLNOMS HealthcareChloride [Moles/Vol]103 mmol/L98 - 107 mmol/LNOMS HealthcareCO2 [Moles/Vol]30.4 mmol/L21.0 - 31.0 mmol/LNOMS HealthcareCreatinine (U) [Mass/Vol] 0.67 mg/dL0.60 - 1.20 mg/dLNOMS HealthcareESTIMATED GFRmL/MinNOMS Healthcare Globulin (S) [Mass/Vol]2.9 g/dLNOMS HealthcareGlucose [Mass/Vol]96 mg/dL70 - 100 mg/dLNOOK HealthcareComment on above:Random Glucose Reference Range is dependent on time and content of last meal. Glucose of more than 200 mg/dL in a nonstressed, ambulatory subject supports the diagnosis of Diabetes Mellitus. ADA recommended reference range Potassium [Moles/Vol]4.3 mmol/L3.5 - 5.1 mmol/LNOMS HealthcareProtein [Mass/Vol] 7.1 g/dL6.4 - 8.9 g/dLNOMS HealthcareSodium [Moles/Vol]140 mmol/L136 - 145 mmol/LNOMS HealthcareUrea nitrogen [Mass/Vol]17 mg/dL7 - 25 mg/dLNOOK Healthcare Creatinine [Mass/volume] in Serum or PlasmaOrdered By: Jamal Alvarez on 91-61-1912Nyclwblxyf [Mass/Vol]Creatinine [Mass/volume] in Serum or Plasma 0.60-1.20[facility] HospitalCreatinine [Mass/Vol]0.67 mg/dLNormal 0.60-1.20[facility] HospitalComment on above:Performed By: #### CBC, HS TROP #### [facility] [address] [place] [id number] USACreatinine [Mass/volume] in UrineOrdered By: Jamal Alvarez on 95-13-0008Vglgqojbhv (U) [Mass/Vol]Creatinine [Mass/volume] in Urine [facility] HospitalComment on above:No reference range established Creatinine (U) [Mass/Vol]52.00 mg/dLOhiohealth Mansfield HospitalComment on above:No reference range establishedEosinophils Auto (Bld) [#/Vol]Ordered By: Jamal Alvarez on 73-50-4223Emmtotfamgl (Bld) [#/Vol]Automated eosinophil count 0.0-0.45Ohio[facility] Mansfield HospitalEosinophils [#/volume] in Blood by Automated countOrdered By: Jamal Alvarez on 53-91-0651Omcgvtuqsgr (Bld) [#/Vol] 0.3 10*3/uLNormal0.0-0.45Ohio[facility] Mansfield HospitalComment on above: Performed By: #### CBC, HS TROP #### [facility] [address] [place] [id number] USAEosinophils/100 WBC Auto (Bld)Ordered By: Jamal Alvarez on 05-10-6774Wkycwkzxotl/100 WBC (Bld)Automated eosinophil %.Ohio[facility] HospitalEosinophils/100 leukocytes in Blood by Automated countOrdered By: Jamal Alvarez on 68-14-6091Nkbstbfelba/100 WBC (Bld)4.4 %Normal.[facility]field HospitalComment on above:Performed By: #### CBC, HS TROP #### [facility] [address] [place] [address] USAErythrocyte distribution width Auto (RBC) [Ratio]Ordered By: Jamal Alvarez on 49-90-2312Uridqeixlbn distribution width (RBC) [Ratio] Erythrocyte distribution width [Ratio] by Automated count11.9-15.3FWood County HospitalErythrocyte distribution width [Ratio] by Automated count Ordered By: Jamal Alvarez on 27-97-7910Gsqltnpvlpz distribution width (RBC) [Ratio]13.2 %Ukifwv54.9-15.3FWood County HospitalComment on above: Performed By: #### CBC, HS TROP #### [facility] [address] [place] [address] USAErythrocytes [#/volume] in Blood by Automated countOrdered By: Jamal Alvarez on 97-46-5578RCB (Bld) [#/Vol]4.48 10*6/uLNormal3.60-5.00 [facility] HospitalComment on above:Performed By: #### CBC, HS TROP #### [facility] [address] [place] [address] USAGlobulin Calc (S) [Mass/Vol]Ordered By: Jamal Alvarez on 63-86-9146Udlbbnxz (S) [Mass/Vol]Serum globulin measurement by calculation (mass/volume)Ohio[facility] HospitalGlucose [Mass/volume] in Serum or PlasmaOrdered By: Jamal Alvarez on 30-02-6925Rfgxlbw [Mass/Vol]Glucose [Mass/volume] in Serum or Ysoupm77-559DfnpaiaueOhiohealth Mansfield HospitalComment on above:ADA recommended reference rangeRandom Glucose Reference Range is dependent on time and content of last meal. Glucose of more than 200 mg/dL in a nonstressed, ambulatory subject supports the diagnosisof Diabetes Mellitus. Glucose [Mass/Vol]96 mg/oLWptzfx37-024FjcpkevotOhiohealth Mansfield HospitalComment on above:ADA recommended reference rangeRandom Glucose Reference Range is dependent on time and content of last meal. Glucose of more than 200 mg/dL in a nonstressed, ambulatory subject supports the diagnosisof Diabetes Mellitus. Result Comment: Random Glucose Reference Range is dependent on time and content of last meal. Glucose of more than 200 mg/dL in a nonstressed, ambulatory subject supports the diagnosis of Diabetes Mellitus. ADA recommended reference rangePerformed By: #### CBC, HS TROP #### [facility] [address] [place] [id number] USAHematocrit Auto (Bld) [Volume fraction]Ordered By: Jamal Alvarez on 64-52-1666Rmqxhmxqpz (Bld) [Volume fraction]Hematocrit [Volume Fraction] of Blood by Automated count34.0-46.4FWood County Hospital Hematocrit [Volume Fraction] of Blood by Automated countOrdered By: Jamal Alvarez on 54-31-2043Qkpsoxatdw (Bld) [Volume fraction]40.2 %Ldicjx35.0-46.4 [facility] HospitalComment on above:Performed By: #### CBC, HS TROP #### [facility] [address] [place] [address] USAHemoglobin A1c/Hemoglobin.total in BloodOrdered By: COURTNEY LOCKHART on 09-05-0543OtS3h (Bld) [Mass fraction]Hemoglobin A1c percentage High4.3-5.6FWood County HospitalComment on above:Increased risk for diabetes: 5.7 - 6.4diabetes: >6.4glycemic control for adults with diabetes: &l t;7.0HbA1c (Bld) [Mass fraction]6.0 %High4.3-5.6FWood County HospitalComment on above:Increased risk for diabetes: 5.7 - 6.4diabetes: >6.4glycemic control for adults with diabetes: <7.0Result Comment: Increased risk for diabetes: 5.7 - 6.4 diabetes: >6.4 glycemic control for adults with diabetes: <7.0Performed By: #### MG #### [facility] [address] [place] [address] USAHemoglobin [Mass/volume] in BloodOrdered By: Jamal Alvarez on 61-48-2168Nqoxthjjbg (Bld) [Mass/Vol]Hemoglobin [Mass/volume] in Blood 11.8-15.4FWood County HospitalHemoglobin (Bld) [Mass/Vol]13.4 g/dL Ivvggc03.8-15.4FWood County HospitalComment on above:Performed By: #### CBC, HS TROP #### [facility] [address] [place] [address] USALeukocytes [#/volume] corrected for nucleated erythrocytes in Blood by Automated counOrdered By: Jamal Alavrez on 82-39-2550JJB corrected for nucl RBC Auto (Bld) [#/Vol]Leukocytes [#/volume] corrected for nucleated erythrocytes in Blood by Automated coun3.8-11.6FWood County Hospital WBC corrected for nucl RBC Auto (Bld) [#/Vol]6.3 10*3/uL3.8-11.6FWood County HospitalLeukocytes [#/volume] in Blood by Automated countOrdered By: Jamal Alvarez on 82-76-1412YRK (Bld) [#/Vol]6.3 10*3/uLNormal3.8-11.6 [facility] HospitalComment on above:Performed By: #### CBC, HS TROP #### [facility] [address] [place] [address] USALipid 1996 panelon 29-96-0144Aticobfudxv [Mass/Vol]175 mg/dL140 - 200 mg/dLNOOK HealthcareComment on above:Chol less than 200 mg/dl low risk Chol 201-239 mg/dl borderline risk Chol 240 mg/dl and greater high risk Cholesterol in HDL [Mass/Vol]72 mg/dL23 - 92 mg/dLST. MARK'S HOSPITAL HealthcareComment on above:HDL CHOL ATP-III CLASSIFICATION Cardiovascular Risk HDL > or equal to 60 mg/dL LOW HDL < 40 mg/dL HIGH Cholesterol.total/Cholesterol in HDL [Mass ratio]2.4 {ratio}NINF - 5.0NOSaint Francis Medical CenterLDL CHOLESTEROL,DYYPEAOLEE17 mg/dL0 - 100 mg/dLNOOK HealthcareComment on above:LDL ATP III CLASSIFICATION LDL less than 100 mg/dL Optimal LDL 100-129 mg/dL Near or above optimal LDL 130-159 mg/dL Borderline high LDL 160-189 mg/dL High LDL greater than 189 mg/dL Very high Magnesium [Mass/Vol]18 mg/dLNOOK HealthcareTRIGLYCERIDE W/YLYDLC06 mg/dL0 - 149 mg/dLNOOK HealthcareComment on above:TRIG ATP III CLASSIFICATION TRIG less than 150 mg/dL Normal TRIG 150-199 mg/dL Borderline high TRIG 200-500 mg/dL High TRIG greater than 500 mg/dL Very high Standard traceable to the Center for Disease Conrtrol and Prevention (CDC) test method. Lipid Panelon 04-25-7560NLB Cholesterol,Dguugqpalf69 mg/dLNormal0-100The [facility] Physician GroupComment on above:Result Comment: LDL ATP III CLASSIFICATION LDL less than 100 mg/dL Optimal LDL 100-129 mg/dL Near or above optimal LDL 130-159 mg/dL Borderline high LDL 160-189 mg/dL High LDL greater than 189 mg/dL Very highPerformed By: #### CBC, HS TROP #### [facility] [address] [place] [address] USATriglyceride w/Zoiyfs01 mg/dLNormal0-149The [facility] Physician GroupComment on above:Result Comment: TRIG ATP III CLASSIFICATION TRIG less than 150 mg/dL Normal TRIG 150-199 mg/dL Borderline high TRIG 200-500 mg/dL High TRIG greater than 500 mg/dL Very high Standard traceable to the Center for Disease Conrtrol and Prevention (CDC) test method.Performed By: #### CBC, HS TROP #### [facility] [address] [place] [address] USAVLDL KQWJEYMLYTC41 mg/dLNormalThe [facility] Physician GroupComment on above:Performed By: #### CBC, HS TROP #### [facility] [address] [place] [address] USALymphocytes Auto (Bld) [#/Vol]Ordered By: Jamal Alvarez on 39-30-1905Jylvmkcqepp (Bld) [#/Vol]Lymphocytes [#/volume] in Blood by Automated count1.00-4.8[facility]field HospitalLymphocytes [#/volume] in Blood by Automated countOrdered By: Jamal Alvarez on 53-09-1655Mzfdfwdhstz (Bld) [#/Vol]1.8 10*3/uLNormal1.00-4.8Ohio[facility]field HospitalComment on above:Performed By: #### CBC, HS TROP #### [facility] [address] [place] [id number] USALymphocytes/100 WBC Auto (Bld)Ordered By: Jamal Alvarez on 88-78-8314Hwjxaxplxri/100 WBC (Bld)Lymphocytes/100 leukocytes in Blood by Automated count.[facility] HospitalLymphocytes/100 leukocytes in Blood by Automated countOrdered By: Jamal Alvarez on 35-27-6512Fvztjjgdpye/100 WBC (Bld)29.1 %Normal.[facility] HospitalComment on above: Performed By: #### CBC, HS TROP #### [facility] [address] [place] [id number] [facility] Auto (RBC) [Entitic mass]Ordered By: Jamal Alvarez on 92-25-2706LDS (RBC) [Entitic mass]MCH [Entitic mass] by Automated count24.7-34.3 [facility] [Entitic mass] by Automated countOrdered By: Jamal Alvarez on 63-86-4997SGG (RBC) [Entitic mass]29.9 bmKprkas10.7-34.3 [facility] HospitalComment on above:Performed By: #### CBC, HS TROP #### [facility] [address] [place] [id number] [facility] Auto (RBC) [Mass/Vol]Ordered By: Jamal Alvarez on 99-57-7653XEXR (RBC) [Mass/Vol]MCHC [Mass/volume] by Automated count32.0-35.0 [facility] SystemHC (RBC) [Mass/Vol]33.4 g/dL32.0-35.0 [facility] HospitalMCV Auto (RBC) [Entitic vol]Ordered By: Jamal Alvarez on 05-75-4217RRF (RBC) [Entitic vol]MCV [Entitic volume] by Automated tbebk20-082VretopzcdOhiohealth Mansfield HospitalMCV [Entitic volume] by Automated countOrdered By: Jamal Alvarez on 59-42-5056SNN (RBC) [Entitic vol]89.7 fL Mjsyln18-360LipvxnrnzOhiohealth Mansfield HospitalComment on above:Performed By: #### CBC, HS TROP #### [facility] [address] [place] [address] USAMicroAlb Creat Ratio,Uon 14-68-6421Szptpbtilp, Urine (Random)52.00 mg/dLNormJackson Memorial Hospital Physician [facility] HospitalComment on above:Result Comment: No reference range establishedPerformed By: #### CBC, HS TROP #### [facility] [address] [place] [id number] USAMicroalbumin/Creatinine RatioNot performedNormal0.0-30.0 [facility] Physician [facility] HospitalComment on above:Result Comment: PERFORMED BY: [place] [address] PATHOLOGIST JANITORIAL ASSISTANT ROZ MAE M.D.Performed By: #### CBC, HS TROP #### [facility] [address] [place] [address] USAMicroalbumin [Mass/volume] in UrineOrdered By: Jamal Alvarez on 91-42-5224Hhtrccr DL <= 20 mg/L (U) [Mass/Vol]Microalbumin [Mass/volume] in Urine0.0-1.8[facility] HospitalAlbumin DL <= 20 mg/L (U) [Mass/Vol]mg/dLNormal0.0-1.8[facility] HospitalComment on above:Performed By: #### CBC, HS TROP #### [facility] [address] [place] [id number] USAMicroalbumin/Creatinine ratio panel (U)on 02-06-2025 Albumin [Mass/Vol]mg/dL0.0 - 1.8 mg/dLMercy McCune-Brooks HospitalCreatinine spec 2 (U) [Mass/Vol]52 mg/dLMercy McCune-Brooks HospitalComment on above:No reference range established MICROALBUMIN/CREATININE RATIONot performed0.0 - 30.0[facility] HealthcareMonocytes Auto (Bld) [#/Vol]Ordered By: Jamal Alvarez on 02-06-2025 Monocytes (Bld) [#/Vol]Automated blood monocyte count0.0-0.8[facility] HospitalMonocytes [#/volume] in Blood by Automated countOrdered By: Jamal Alvarez on 12-12-7624Eyxulfjtw (Bld) [#/Vol]0.3 10*3/uLNormal0.0-0.8 [facility] HospitalComment on above:Performed By: #### CBC, HS TROP #### [place] [address] USAMonocytes/100 WBC Auto (Bld)Ordered By: Jamal Alvarez on 25-38-0585Tlxtkrglp/100 WBC (Bld)Automated monocyte %.[facility] HospitalMonocytes/100 leukocytes in Blood by Automated countOrdered By: Jamal Alvarez on 03-31-0448Ldtecigql/100 WBC (Bld)4.9 %Normal.[facility] HospitalComment on above:Performed By: #### CBC, HS TROP #### [facility] [address] [place], [place] [address] USANeutrophils Auto (Bld) [#/Vol]Ordered By: Jamal Alvarez on 20-36-2678Ctmbcosmlqa (Bld) [#/Vol]Neutrophils [#/volume] in Blood by Automated count1.8-7.7FWood County HospitalNeutrophils [#/volume] in Blood by Automated countOrdered By: Jamal Alvarez on 85-70-5681Rfmwvhdvsof (Bld) [#/Vol]3.8 10*3/uLNormal1.8-7.7FWood County HospitalComment on above:Performed By: #### CBC, HS TROP #### [facility] [address] [place] [id number] USANeutrophils/100 WBC Auto (Bld)Ordered By: Jamal Alvarez on 48-15-9871Dicsqntfqfc/100 WBC (Bld)Automated neutrophil %.[facility] HospitalNeutrophils/100 leukocytes in Blood by Automated countOrdered By: Jamal Alvarez on 17-54-1313Hjwnkroewnp/100 WBC (Bld)60.7 %Normal.[facility] HospitalComment on above:Performed By: #### CBC, HS TROP #### [facility] [address] [place] [address] USANo Panel Informationon 81-35-6434CKBE HealthcareNo Panel InformationOrdered By: Jamal Alvarez on 31-32-1712Tivylsjfm GFR (CKD-EPI)> 60.0 mL/MinOhiohealth Mansfield HospitalPharmacy Creatinine Clearance (ChemN/A [facility] HospitalNucleated erythrocytes [Presence] in Blood by Automated countOrdered By: Jamal Alvarez on 82-19-0968Nowtiafrt RBC Auto Ql (Bld)Nucleated erythrocytes [Presence] in Blood by Automated count0-0.5FWood County HospitalNucleated RBC Auto Ql (Bld)0.1 /100{WBC}0-0.5FWood County HospitalPlatelet mean volume Auto (Bld) [Entitic vol]Ordered By: Jamal Alvarez on 81-56-9824Cploxtnf mean volume (Bld) [Entitic vol]Platelet mean volume [Entitic volume] in Blood by Automated count6.3-10.7FWood County HospitalPlatelet mean volume [Entitic volume] in Blood by Automated countOrdered By: Jamal Alvarez on 01-45-9288Ubqcncwh mean volume (Bld) [Entitic vol]8.6 fLNormal6.3-10.7FWood County HospitalComment on above:Performed By: #### CBC, HS TROP #### [facility] [address] [place] [address] USAPlatelets Auto (Bld) [#/Vol]Ordered By: Jamal Alvarez on 20-36-9979Vqrvrkpsm (Bld) [#/Vol]Platelets [#/volume] in Blood by Automated -295JwvfcsusmOhiohealth Mansfield HospitalPlatelets [#/volume] in Blood by Automated countOrdered By: Jamal Alvarez on 34-20-4354Gfsnlahxx (Bld) [#/Vol] 264 10*3/sIHgjggb694-096YqozggfxrOhiohealth Mansfield HospitalComment on above: Performed By: #### CBC, HS TROP #### [facility] [address] [place] [address] USAPotassium [Moles/volume] in Serum or PlasmaOrdered By: Jamal Alvarez on 08-07-1029Imbkwjzku [Moles/Vol]Potassium [Moles/volume] in Serum or Plasma3.5-5.1FWood County HospitalPotassium [Moles/Vol]4.3 mmol/LNormal3.5-5.1FWood County HospitalComment on above:Performed By: #### CBC, HS TROP #### [facility] [address] [place] [address] USAProtein [Mass/volume] in Serum or PlasmaOrdered By: Jamal Alvarez on 76-18-4587Offvplg [Mass/Vol]Protein [Mass/volume] in Serum or Plasma6.4-8.9[facility] HospitalProtein [Mass/Vol]7.1 g/dLNormal 6.4-8.9[facility] HospitalComment on above:Performed By: #### CBC, HS TROP #### [facility] [address] [place] [address] USARBC Auto (Bld) [#/Vol]Ordered By: Jamal Alvarez on 62-23-1762UPA (Bld) [#/Vol]Erythrocytes [#/volume] in Blood by Automated count 3.60-5.00[address] Hospitalerum globulin measurement by calculation (mass/volume)Ordered By: Jamal Alvarez on 09-42-4984Fohdejzw (S) [Mass/Vol]2.9 g/dLNoSumma Health Barberton CampusComment on above: Performed By: #### CBC, HS TROP #### [facility] [address] [place] [address] USASerum or plasma albumin/globulin mass ratioOrdered By: Jamal Alvarez on 55-11-3531Tguukff/Globulin [Mass ratio]Serum or plasma albumin/globulin mass ratioOhiohealth Mansfield HospitalAlbumin/Globulin [Mass ratio]1.4 {ratio}NormalOhiohealth Mansfield HospitalComment on above: Performed By: #### CBC, HS TROP #### [address] [address] USASerum or plasma anion gap determinationOrdered By: Jamal Alvarez on 60-55-4714Tbmvv gap [Moles/Vol]Serum or plasma anion gap determination 6.0-15.0[facility] HospitalAnion gap [Moles/Vol]10.9 mmol/LNormal 6.0-15.0[facility] HospitalComment on above:Performed By: #### CBC, HS TROP #### [place] [id number] USASerum or plasma total cholesterol/high density lipoprotein (HDL) cholesterol mass ratOrdered By: Jamal Alvarez on 02-06-2025 Cholesterol.total/Cholesterol in HDL [Mass ratio]Serum or plasma total cholesterol/high density lipoprotein (HDL) cholesterol mass rat<5.0[facility] HospitalCholesterol.total/Cholesterol in HDL [Mass ratio]2.4 {ratio}Normal<5.0[facility] HospitalComment on above:Result Comment: PERFORMED BY: [place] [address] PATHOLOGIST JANITORIAL ASSISTANT ROZ MAE M.D.Performed By: #### CBC, HS TROP #### [place] [id number] USASodium [Moles/volume] in Serum or PlasmaOrdered By: Jamal Alvarez on 39-17-6661Izpgsu [Moles/Vol]Sodium [Moles/volume] in Serum or Eodavs876-116CntwfjxubWilson [address] Hospitalodium [Moles/Vol]140 mmol/LNormal 136-145Ohio[facility] HospitalComment on above:Performed By: #### CBC, HS TROP #### [facility] [address] [place] [address] USAThyrotropin [Units/volume] in Serum or PlasmaOrdered By: Valdez Castro on 68-65-6178HZK QnThyrotropin [Units/volume] in Serum or Plasma 0.45-5.33Ohio[facility] HospitalTS Qn1.05 m[IU]/LNormal0.45-5.33 [facility] HospitalComment on above:Result Comment: PERFORMED BY: [address] [address] PATHOLOGIST JANITORIAL ASSISTANT ROZ MAE M.D.Performed By: #### T4F, TSH3 #### [facility] [address] [place] [address] USAThyroxine (T4) free [Mass/volume] in Serum or Plasma Ordered By: Valdez Castro on 18-59-2238Okex T4 [Mass/Vol]Thyroxine (T4) free [Mass/volume] in Serum or Plasma0.61-1.12[facility] HospitalFree T4 [Mass/Vol]0.84 ng/dLNormal0.61-1.12[facility] HospitalComment on above:Performed By: #### T4F, TSH3 #### [facility] [address] [place] [address] USATriglyceride [Mass/volume] in Serum or PlasmaOrdered By: Jamal Alvarez on 83-44-7393Ldayzhxrywof [Mass/Vol]Triglyceride [Mass/volume] in Serum or Plasma0Ohio[facility] Mansfield HospitalComment on above:TRIG ATP III CLASSIFICATIONTRIG less than 150 mg/dL NormalTRIG 150-199 mg/dL Borderline highTRIG 200-500 mg/dL High TRIG greater than 500 mg/dL Very highStandard traceable to the Center for Disease Conrtrol and Prevention (CDC) test method. Triglyceride [Mass/Vol]94 mg/dL0-149Ohio[facility] HospitalComment on above:TRIG ATP III CLASSIFICATIONTRIG less than 150 mg/dL NormalTRIG 150-199 mg/dL Borderline highTRIG 200-500 mg/dL High TRIG greater than 500 mg/dL Very highStandard traceable to the Center for Disease Conrtrol and Prevention (CDC) test method.Triiodothyronine (T3) Freeon 23-97-0126Vbwpvkzzubyjuipg (T3) Free 2.78 pg/mLNormal2.50-3.90[facility] Physician GroupComment on above:Result Comment: PERFORMED BY: [place] [address] PATHOLOGIST JANITORIAL ASSISTANT ROZ MAE M.D.Performed By: #### CBC, HS TROP #### [place] [address] USATriiodothyronine (T3) Free [Mass/volume] in Serum or PlasmaOrdered By: Valdez Castro on 73-71-2924Lkar T3 [Mass/Vol]Triiodothyronine (T3) Free [Mass/volume] in Serum or Plasma2.50-3.90Ohio[facility] HospitalFree T3 [Mass/Vol]2.78 pg/mL2.50-3.90[facility] HospitalUrea nitrogen [Mass/volume] in Serum or PlasmaOrdered By: Jamal Alvarez on 38-90-4205Aowp nitrogen [Mass/Vol]Urea nitrogen [Mass/volume] in Serum or Plasma 05-29Ohio[facility]field HospitalUrea nitrogen [Mass/Vol]17 mg/dLNormal05-29 [facility] HospitalComment on above:Performed By: #### CBC, HS TROP #### [facility] [address] [place], [place] [address] USAUrine microalbumin/creatinine mass ratioOrdered By: Jamal Alvarez on 83-24-7982Xqtsnkw/Creatinine DL <= 20 mg/L (U) [Mass ratio] Urine microalbumin/creatinine mass ratioOhiohealth Mansfield HospitalComment on above:Test not performedAlbumin/Creatinine DL <= 20 mg/L (U) [Mass ratio]TNP [facility] HospitalComment on above:Test not performedWBC Auto (Bld) [#/Vol]Ordered By: Jamal Alvarez on 22-50-6583BKJ (Bld) [#/Vol]Leukocytes [#/volume] in Blood by Automated count3.8-11.6FWood [facility] Hospital CNPNon 33-37-4413OVVYPwmlvdxmu (NEADFV) PHYLICIAKARUNA Bowman ([id number]) 1945 F Date Time Provider Department 01/12/25 SOHAIL WILLIAM NEADFV During your visit today, we recorded the following information about you: Jyoti Silva 01/12/2025 2:27 PM Signed [facility] pharmacy phoned to follow with prior auth for cannabidiol (EPIDIOLEX) 100 mg/mL oral liquid please call and advise [facility] pharmacy ph# [phone] Jennifer Chandler RN 01/13/2025 10:42 AM Signed Urgent PA initiated in [facility] calderon [id number]. TEAGAN Acevedo Jennifer, RN 01/13/2025 11:08 AM Signed Additional information submitted in [facility]. TEAGAN Acevedo Lori 01/13/2025 4:14 PM Signed Please call Gayatri at [phone] at [facility] for additional information. She stated this will auto deny at 6am tomorrow. Jennifer Chandler RN 01/13/2025 5:04 PM Signed Returned call ref [id number]. They wanted to know if pt has intractable seizures. Confirmed. They will issue a determination tomorrow. TEAGAN Acevedo Jennifer, RN 01/15/2025 4:11 PM Signed Jennifer Chandler RN 01/15/2025 4:13 PM Signed Jennifer Chandler RN 01/15/2025 4:23 PM Signed Call to [facility] pharmacy, spoke with PharmD. Med was processed and plan paid, pt portion will be $33/month. Pt will need to call to set up delivery. Call to patient, no answer, voicemail message left. TEAGAN Acevedo Jennifer, RN 01/16/2025 10:38 AM Signed Call to patients daughter, advised her of the approval. Given the number to call Alisha. Jennifer Chandler RN Allergies As of Date: [...] - Rash Date Reviewed: 12/24/2024 Reviewed by: Sohail William MD, PhD - Fully Assessed Reason [...] 06/29/2020 Encounter Status:Closed by JENNIFER CHANDLER on 01/13/25[facility] Free T4 (Free Thyroxine)on 91-37-8137Jqvd T4 [Mass/Vol]0.88 ng/dLNormal0.61-1.12 [facility] Physician GroupComment on above:Performed By: #### GLULS #### Point of Care testing ,Thyroid Stimulating Hormoneon 07-67-6039XSM Qn0.18 m[IU]/LLow0.45-5.33[facility] Physician [facility] HospitalComment on above:Result Comment: PERFORMED BY: [place] [address] [place] [address] PATHOLOGIST JANITORIAL ASSISTANT ROZ MAE M.D.Performed By: #### GLULS #### Point of Care testing ,Thyrotropin [Units/volume] in Serum or PlasmaOrdered By: Valdez Castro on 91-76-1515KYL QnThyrotropin [Units/volume] in Serum or PlasmaLow0.45-5.33 [facility] HospitalThyroxine (T4) free [Mass/volume] in Serum or PlasmaOrdered By: Valdez Castro on 82-47-5867Fvjy T4 [Mass/Vol]Thyroxine (T4) free [Mass/volume] in Serum or Plasma0.61-1.12[facility] Triiodothyronine (T3) Freeon 55-36-3513Vzabgbbbcpnrvuvb (T3) Free2.69 pg/mL Normal2.50-3.90[facility] Physician [facility] HospitalComment on above:Result Comment: PERFORMED BY: [facility] [address] [place] [address] PATHOLOGIST JANITORIAL ASSISTANT ROZ MAE M.D.Performed By: #### GLULS #### Point of Care testing ,Triiodothyronine (T3) Free [Mass/volume] in Serum or PlasmaOrdered By: Valdez Castro on 57-88-0506Scvd T3 [Mass/Vol]Triiodothyronine (T3) Free [Mass/volume] in Serum or Plasma2.50-3.90[facility] HospitalCNPNon [id number] Telephone (PULMMN) KARUNA REYNAGA ([id number]) 1945 F Date Time Provider Department [facility] During your visit today, we recorded the following information about you: Tanner Madison 09/08/2024 1:16 PM Signed Karuna Reynaga's [...] - Rash Date Reviewed: 08/13/2024 Reviewed by: Sohail William MD, PhD - Fully Assessed Reason [...] Resolved Cough [R05.9] 06/29/2020 Encounter Status:Closed by TANNER MADISON on 09/08/24NoWilson [address] HospitalR HEMOGLOBIN A1Con 31-17-7256Uwbmlow [Mass/Vol]114 mg/dLNOOK SsziajlkoiFvA6y (Bld) [Mass fraction]5.6 %4.5 - 6.2 %NOMS HealthcareComment on above:ADA RECOMMENDED LIMIT 4.0 - 6.0 ADA THERAPEUTIC TARGET < 7.0 ACTION SUGGESTED > 7.0 CLINISYNCNOOK HealthcareALL CBC WITH AUTO DIFFon 05-04-7254UOVVPTYNS ABSOLUTE AUTO0.1NOMS HealthcareBasophils/100 WBC (Bld)0.8 %0.2 - 2.0 %[facility]OMH[facility] Hospital Eosinophils/100 WBC (Bld)4.2 %0.9 - 7.0 %NOMHannibal Regional HospitalErythrocyte distribution width (RBC) [Ratio]12.5 %11.0 - 15.0 %NOM HealthcareHematocrit (Bld) [Volume fraction]40.9 %36.0 - 48.0 %NOMHannibal Regional HospitalHemoglobin (Bld) [Mass/Vol]13.0 g/dL 12.0 - 16.0 g/dLMercy McCune-Brooks HospitalIMMATURE GRANULOCYTES ABS AUTO0.01NOMS [facility] Immature granulocytes/100 WBC (Bld)0.1 %0.0 - 0.5 %[facility]-Brooks HospitalLYMPHOCYTES ABSOLUTE AUTO2.3NOMS [facility] HospitalLymphocytes/100 WBC (Bld)32.7 %20.5 - 60.0 %[facility] HospitalH (RBC) [Entitic mass]29.5 pg26.7 - 34.0 pgNOMissouri Delta Medical CenterHC (RBC) [Mass/Vol]31.8 g/dL29.9 - 35.2 g/dLBarnes-Jewish West County HospitalV (RBC) [Entitic vol]92.7 fL 81.0 - 99.0 fLNOSaint Francis Medical CenterMONOCYTES ABSOLUTE AUTO0.4NOMS [facility] Monocytes/100 WBC (Bld)5.5 %1.7 - 12.0 %NOMHannibal Regional HospitalNEUTROPHILS ABSOLUTE AUTO 4.0NOMS [facility] HospitalNeutrophils/100 WBC (Bld)56.7 %43.0 - 75.0 %[facility] Platelet mean volume (Bld) [Entitic vol]10.2 fL9.5 - 13.5 fLNOSaint Francis Medical CenterTB EO #0.3NOMS [facility] HospitalTB [id number] [facility] RBC4.41[facility] WBC 7.1NOMS HealthcareCLINISYNCNOMS HealthcareThyrotropin [Units/volume] in Serum or PlasmaOrdered By: Valdez Castro on 79-67-4864LMO Qn1.42 m[IU]/L0.45-5.33 [facility] HospitalThyroxine (T4) free [Mass/volume] in Serum or PlasmaOrdered By: Valdez Castro on 53-29-9020Vxng T4 [Mass/Vol]0.64 ng/dL 0.61-1.12[facility] HospitalTriiodothyronine (T3) Free [Mass/volume] in Serum or PlasmaOrdered By: Valdez Castro on 15-11-9773Xdzc T3 [Mass/Vol]2.84 pg/mL2.50-3.90[facility] HospitalBasophils Auto (Bld) [#/Vol]Ordered By: Albert Palacio on 28-52-2410Kiipeobjy (Bld) [#/Vol]0.1 10*3/uL0.0-0.2FWood County HospitalBasophils/100 WBC Auto (Bld) Ordered By: Albert Palacio on 78-04-3224Nrktmlvaq/100 WBC (Bld)0.8 %.[facility] HospitalCalcium [Mass/volume] in Serum or PlasmaOrdered By: Albert Palacio on 98-05-7394Yadvymw [Mass/Vol]9.6 mg/dL8.6-10.3FWood County HospitalCarbon dioxide, total [Moles/volume] in Serum or Plasma Ordered By: Albert Palacio on 11-04-8414OA3 [Moles/Vol]24.4 mmol/L21.0-31.0 [facility] HospitalChloride [Moles/volume] in Serum or Plasma Ordered By: Albert Palacio on 66-17-1250Bjvpoybt [Moles/Vol]105 mmol/L98-107 [facility] HospitalCreatinine [Mass/volume] in Serum or Plasma Ordered By: Albert Palacio on 07-40-3083Kygrekvfjz [Mass/Vol]0.96 mg/dL0.60-1.20 [facility] HospitalEosinophils Auto (Bld) [#/Vol]Ordered By: Albert Palacio on 27-72-4131Nbwbnyznjjb (Bld) [#/Vol]0.3 10*3/uL0.0-0.45 [facility] HospitalEosinophils/100 WBC Auto (Bld)Ordered By: Albert Palacio on 63-79-0934Ridceucaljx/100 WBC (Bld)3.6 %.Ohio[facility] HospitalErythrocyte distribution width Auto (RBC) [Ratio]Ordered By: Albert Palacio on 39-38-5088Iodsqmptvll distribution width (RBC) [Ratio]13.0 % 11.9-15.3FWood County HospitalGlucose [Mass/volume] in Serum or PlasmaOrdered By: Albert Palacio on 42-24-0248Xeczzmc [Mass/Vol]112 mg/dLHigh 70-100Ohiohealth Mansfield HospitalComment on above:ADA recommended reference rangeRandom Glucose Reference Range is dependent on time and content of last meal. Glucose of more than 200 mg/dL in a nonstressed, ambulatory subject supports the diagnosisof Diabetes Mellitus.Hematocrit Auto (Bld) [Volume fraction]Ordered By: Albert Palacio on 68-99-3508Szbajhozkt (Bld) [Volume fraction]42.1 %34.0-46.4FWood County HospitalHemoglobin [Mass/volume] in BloodOrdered By: Albert Palacio on 71-40-3463Xjpczpmlsu (Bld) [Mass/Vol]13.7 g/dL11.8-15.4FWood County HospitalLeukocytes [#/volume] corrected for nucleated erythrocytes in Blood by Automated coun Ordered By: Albert Palacio on 96-62-7489RVI corrected for nucl RBC Auto (Bld) [#/Vol]7.5 10*3/uL3.8-11.6FWood County HospitalLymphocytes Auto (Bld) [#/Vol]Ordered By: Albert Palacio on 72-54-9482Ifilmgbhlyg (Bld) [#/Vol] 1.7 10*3/uL1.00-4.8[facility] HospitalLymphocytes/100 WBC Auto (Bld)Ordered By: Albert Palacio on 42-18-9910Afyhisdqncf/100 WBC (Bld)22.3 %. [facility] HospitalMCH Auto (RBC) [Entitic mass]Ordered By: Albert Palacio on 02-72-1059KDM (RBC) [Entitic mass]29.2 pg24.7-34.3FWood County HospitalMCHC Auto (RBC) [Mass/Vol]Ordered By: Albert Palacio on 51-04-1311FKRC (RBC) [Mass/Vol]32.7 g/dL32.0-35.0[facility] HospitalMCV Auto (RBC) [Entitic vol]Ordered By: Albert Palacio on 33-91-6945JUN (RBC) [Entitic vol]89.5 sC07-492WkkcdswhrOhiohealth Mansfield HospitalMonocytes Auto (Bld) [#/Vol]Ordered By: Albert Palacio on 61-41-9705Ryqgyiayi (Bld) [#/Vol]0.5 10*3/uL0.0-0.8[facility] HospitalMonocytes/100 WBC Auto (Bld) Ordered By: Albert Palacio on 42-26-3480Ozfopeywu/100 WBC (Bld)6.4 %.[facility] HospitalNeutrophils Auto (Bld) [#/Vol]Ordered By: Albert Palacio on 48-74-6679Kznqesglrzg (Bld) [#/Vol]5.0 10*3/uL1.8-7.7FWood County HospitalNeutrophils/100 WBC Auto (Bld)Ordered By: Albert Palacio on 41-35-6183Trdrmfcmzhh/100 WBC (Bld)66.9 %.[facility] HospitalNo Panel InformationOrdered By: Albert Palacio on 31-28-4955Sfuvjoblw GFR (CKD-EPI) > 60.0 mL/MinOhiohealth Mansfield HospitalPharmacy Creatinine Clearance (Chem40.49Ohio[facility] HospitalNucleated erythrocytes [Presence] in Blood by Automated countOrdered By: Albert Palacio on 20-02-3057Rcugyuljw RBC Auto Ql (Bld)0.0 /100{WBC}0-0.5FWood County HospitalPlatelet mean volume Auto (Bld) [Entitic vol]Ordered By: Albert Palacio on 41-61-8061Luzxmnin mean volume (Bld) [Entitic vol]8.0 fL6.3-10.7FWood County Hospital Platelets Auto (Bld) [#/Vol]Ordered By: Albert Palacio on 34-47-5694Wuvpskduw (Bld) [#/Vol]222 10*3/bB056-765YyjomqacsOhiohealth Mansfield HospitalPotassium [Moles/volume] in Serum or PlasmaOrdered By: Albert Palacio on 04-16-2024 Potassium [Moles/Vol]4.9 mmol/L3.5-5.1FWood County HospitalRBC Auto (Bld) [#/Vol]Ordered By: Albert Palacio on 41-63-5817LPT (Bld) [#/Vol]4.70 10*6/uL3.60-5.00[address] Hospitalerum or plasma anion gap determinationOrdered By: Albert Palacio on 44-41-1676Ystie gap [Moles/Vol]13.5 mmol/L6.0-15.0[facility] [address] Hospitalodium [Moles/volume] in Serum or PlasmaOrdered By: Albert Palacio on 52-24-7629Ztftpx [Moles/Vol]138 mmol/L 136-145Ohio[facility] HospitalUrea nitrogen [Mass/volume] in Serum or PlasmaOrdered By: Albert Palacio on 35-38-1650Kusr nitrogen [Mass/Vol]31 mg/dL High7-25Ohio[facility] HospitalWBC Auto (Bld) [#/Vol]Ordered By: Albert Palacio on 71-97-2899TKX (Bld) [#/Vol]7.5 10*3/uL3.8-11.6FWood County HospitalActivated partial thromboplastin time (aPTT) in platelet poor plasma by coagulation aOrdered By: Albert Palacio on 34-93-0440uQLE Coag (PPP) [Time]77.1 sHigh25.1-36.5FWood County HospitalComment on above:A hematocrit value greater than 55% may lead to inaccurate results in coagulation testing. Patientshaving hematocrit values >55% require a special collection tube for coagulation studies. Please contact the laboratory at [phone] for redraw instructions.Bilirubin Test strip Ql (U)Ordered By: Ashley Dickerson on 03-28-3617Fylpreydr Ql (U)NegativeNegativeOhiohealth Mansfield HospitalCholesterol [Mass/volume] in Serum or PlasmaOrdered By: Albert Palacio on 04-47-1945Aebpxfzmwna [Mass/Vol]154 mg/gL698-135PjkwtthssOhiohealth Mansfield HospitalComment on above:Chol less than 200 mg/dl low riskChol 201-239 mg/dl borderline riskChol 240 mg/dl and greater high riskCholesterol in LDL Calc [Mass/Vol]Ordered By: Albert Palacio on 45-88-0878Tlibfmzqxwy in LDL [Mass/Vol] 82 mg/dL0-100Ohio[facility] HospitalComment on above:LDL ATP III CLASSIFICATIONLDL less than 100 mg/dL OptimalLDL 100-129 mg/dL Near or above jxhggnaDBN626-795 mg/dL Borderline highLDL 160-189 mg/dL HighLDL greater than 189 mg/dL Very highCholesterol in VLDL Calc [Mass/Vol]Ordered By: Albert Palacio on 73-74-5989Qeqxcndzwwr in VLDL [Mass/Vol]12 mg/dLOhiohealth Mansfield HospitalColor Auto (U)Ordered By: Ashley Dickerson on 51-51-9713Rnwax (U)Colorless YellowOhiohealth Mansfield HospitalGlucose [Mass/volume] in Urine by Test stripOrdered By: Ashley Dickerson on 93-39-9283Osmaznd Test strip (U) [Mass/Vol] Normal mg/dLNormalOhiohealth Mansfield HospitalHemoglobin Test strip Ql (U) Ordered By: Ashley Dickerson on 07-10-4217Wbcjustexd Ql (U)NegativeNegative [facility] HospitalKetones Test strip Ql (U)Ordered By: Ashley Dickerson on 15-03-0902Mosefsd Ql (U)NegativeNegativeOhiohealth Mansfield HospitalLeukocyte esterase [Presence] in Urine by Test stripOrdered By: Ashley Dickerson on 59-89-3723Cieblaxpe esterase Test strip Ql (U)NegativeNegative [facility] HospitalMagnesium [Mass/volume] in Serum or Plasma Ordered By: Albert Palacio on 74-33-4441Dpjqznnjh [Mass/Vol]1.9 mg/dL1.9-2.7 [facility] HospitalNitrite Test strip Ql (U)Ordered By: Ashley Dickerson on 69-31-0394Tcfaujn Ql (U)NegativeNegativeOhiohealth Mansfield HospitalProtein Test strip (U) [Mass/Vol]Ordered By: Ashley Dickerson on 04-14-2024 Protein (U) [Mass/Vol]NegativeNegativeWilson Street Hospitalerum or plasma high density lipoprotein (HDL) cholesterol measurementOrdered By: Albert Palacio on 54-69-0251Resdrnlhwtx in HDL [Mass/Vol]59 mg/bD10-42XjunksariOhiohealth Mansfield HospitalComment on above:HDL CHOL ATP-III CLASSIFICATION Cardiovascular RiskHDL > or equal to 60 mg/dL LOWHDL < 40 mg/dL HIGHSerum or plasma total cholesterol/high density lipoprotein (HDL) cholesterol mass rat Ordered By: Albert Palacio on 04-02-9692Yncxqontbkn.total/Cholesterol in HDL [Mass ratio]2.6 {ratio}<5[address] Hospitalpecific gravity Test strip (U) [Rel density]Ordered By: Ashley Dickerson on 08-50-5299Amcejcuk gravity (U) [Rel density]1.0111.001-1.030[facility] Triglyceride [Mass/volume] in Serum or PlasmaOrdered By: Albert Palacio on 88-95-1214Voaxkycikibg [Mass/Vol]64 mg/dL0-149[facility] Comment on above:TRIG ATP III CLASSIFICATIONTRIG less than 150 mg/dL NormalTRIG 150-199 mg/dL Borderline highTRIG 200-500 mg/dL High TRIG greater than 500 mg/dL Very highStandard traceable to the Center for Disease Conrtrol and Prevention (CDC) test method.Troponin I.cardiac [Mass/volume] in Serum or Plasma by Detection limit <= 0.01 ng/Ordered By: Albert Palacio on 93-19-8484Gazdleiu I.cardiac DL <= 0.01 ng/mL [Mass/Vol]436.4 pg/mLHigh0.0-15.0[facility] HospitalComment on above:Critical Result : Called to and read back by: BRET HARKINS at: 04/14/2024 06:14:01 by:DHUrine appearanceOrdered By: Ashley Dickerson on 71-56-5322Emdpbypwxk (U)ClearClearFWood County Hospital Urobilinogen Test strip (U) [Mass/Vol]Ordered By: Ashley Dickerson on 04-14-2024 Urobilinogen (U) [Mass/Vol]Normal mg/dLNormalOhiohealth Mansfield HospitalpH Test strip (U)Ordered By: Ashley Dickerson on 70-08-4478lK (U)6.0 [pH]5.0-9.0 [facility] HospitalActivated partial thromboplastin time (aPTT) in platelet poor plasma by coagulation aOrdered By: Ashley Dickerson on 04-13-2024 aPTT Coag (PPP) [Time]28.3 s25.1-36.5FWood County HospitalComment on above:A hematocrit value greater than 55% may lead to inaccurate results in coagulation testing. Patientshaving hematocrit values >55% require a special collection tube for coagulation studies. Please contact the laboratory at [phone] for redraw instructions.Alanine aminotransferase [Enzymatic activity/volume] in Serum or PlasmaOrdered By: Ashley Dickerson on 08-99-1996TOQ [Catalytic activity/Vol]19 U/L7-52Ohio[facility] HospitalAlbumin [Mass/volume] in Serum or Plasma by Bromocresol green (BCG) dye binding metho Ordered By: Ashley Dickerson on 14-59-4847Topmger BCG dye [Mass/Vol]3.6 g/dL 3.5-5.7FWood County HospitalAlkaline phosphatase [Enzymatic activity/volume] in Serum or PlasmaOrdered By: Ashley Dickerson on 99-98-7084LCW [Catalytic activity/Vol]48 U/G65-951OximlwegoOhiohealth Mansfield HospitalAspartate aminotransferase [Enzymatic activity/volume] in Serum or PlasmaOrdered By: Ashley Dickerson on 20-08-0944JTA [Catalytic activity/Vol]19 U/I34-83QckgikjcjOhiohealth Mansfield HospitalBasophils Auto (Bld) [#/Vol]Ordered By: Ashley Dickerson on 86-08-8724Isgkwuhep (Bld) [#/Vol]0.1 10*3/uL0.0-0.2FWood County HospitalBasophils/100 WBC Auto (Bld)Ordered By: Ashley Dickerson on 04-13-2024 Basophils/100 WBC (Bld)0.8 %.[facility] HospitalBilirubin.total [Mass/volume] in Serum or PlasmaOrdered By: Ashley Dickerson on 04-13-2024 Bilirubin [Mass/Vol]0.4 mg/dL0.3-1.0[facility] HospitalCalcium [Mass/volume] in Serum or PlasmaOrdered By: Ashley Dickerson on 71-39-2846Foqemjm [Mass/Vol]8.7 mg/dL8.6-10.3FWood County HospitalCarbon dioxide, total [Moles/volume] in Serum or PlasmaOrdered By: Ashley Dickerson on 04-13-2024 CO2 [Moles/Vol]28.0 mmol/L21.0-31.0[facility] HospitalChloride [Moles/volume] in Serum or PlasmaOrdered By: Ashley Dickerson on 04-13-2024 Chloride [Moles/Vol]105 mmol/M94-072VfoqtjqeeOhiohealth Mansfield HospitalCreatine kinase [Enzymatic activity/volume] in Serum or PlasmaOrdered By: Albert Palacio on 40-25-4611VB [Catalytic activity/Vol]56 U/H00-879YewnesuyzOhiohealth Mansfield HospitalCreatinine (Bld) [Mass/Vol]Ordered By: Ashley Dickerson on 04-13-2024 Creatinine [Mass/Vol]1.1 mg/dL0.6-1.3FWood County HospitalComment on above:ER/ESD physician is notified/shown all ISTAT results.Critical values may be confirmed by laboratorytesting ifdeemed necessary by ER attending doctor. Creatinine [Mass/volume] in Serum or PlasmaOrdered By: Ashley Dickerson on 74-93-4055Vemikiyuuj [Mass/Vol]0.92 mg/dL0.60-1.20[facility] HospitalEosinophils Auto (Bld) [#/Vol]Ordered By: Ashley Dickerson on 04-13-2024 Eosinophils (Bld) [#/Vol]0.3 10*3/uL0.0-0.45[facility] Eosinophils/100 WBC Auto (Bld)Ordered By: Ashley Dickerson on 04-13-2024 Eosinophils/100 WBC (Bld)4.3 %.[facility] HospitalErythrocyte distribution width Auto (RBC) [Ratio]Ordered By: Ashley Dickerson on 04-13-2024 Erythrocyte distribution width (RBC) [Ratio]12.7 %11.9-15.3FWood County HospitalGlobulin Calc (S) [Mass/Vol]Ordered By: Ashley Dickerson on 29-20-5678Jddqbbxe (S) [Mass/Vol]3.0 g/dLOhiohealth Mansfield Hospital Glucose Glucometer (dC) [Mass/Vol]Ordered By: Ashley Dickerson on 04-13-2024 Glucose [Mass/Vol]167 mg/dLOhiohealth Mansfield HospitalComment on above: Random Glucose Reference Range is dependent on time and content of last meal. Glucose of more than 200 mg/dL in a nonstressed, ambulatory subject supports the diagnosis of Diabetes Mellitus.Glucose [Mass/volume] in Serum or PlasmaOrdered By: Ashley Dickerson on 83-94-4969Mgirsnj [Mass/Vol]173 mg/xM73-281AkpocktzbOhiohealth Mansfield HospitalComment on above:ADA recommended reference rangeRandom Glucose Reference Range is dependent on time and content of last meal. Glucose of more than 200 mg/dL in a nonstressed, ambulatory subject supports the diagnosisof Diabetes Mellitus.Hematocrit Auto (Bld) [Volume fraction]Ordered By: Ashley Dickerson on 34-54-4885Ddwcknbwje (Bld) [Volume fraction]38.7 %34.0-46.4 [facility] HospitalHemoglobin [Mass/volume] in BloodOrdered By: Ashley Dickerson on 54-22-2925Fiqoouurwh (Bld) [Mass/Vol]12.7 g/dL11.8-15.4 [facility] HospitalINR in Platelet poor plasma by Coagulation assayOrdered By: Ashley Dickerson on 58-19-3056WPX Coag (PPP) [Relative time]1.1 {INR}[facility] HospitalComment on above:INR Therapeutic Range A) Pre- and Peroperative OAT started two weeks before surgery. NOT HIP SURGERY: 1.5 - 2.5 HIP SURGERY: 2 - 3B) Primary and secondary prevention of venous THROMBOSIS: 2 - 3C) Active venous thrombosis, pulmonary embolismand prevention of recurrent venous thrombosis: 2 - 3D) Prevention of arterial thromboembolismincluding patients with mechanical heart valves: 3 - 4.5 Leukocytes [#/volume] corrected for nucleated erythrocytes in Blood by Automated counOrdered By: Ashley Dickerson on 29-41-1927TPN corrected for nucl RBC Auto (Bld) [#/Vol]6.3 10*3/uL3.8-11.6FWood County HospitalLymphocytes Auto (Bld) [#/Vol]Ordered By: Ashley Dickerson on 80-94-4296Gtwxezlqmiz (Bld) [#/Vol]1.8 10*3/uL1.00-4.8[facility] HospitalLymphocytes/100 WBC Auto (Bld)Ordered By: Ashley Dickerson on 26-78-2891Mpsjhrbxstf/100 WBC (Bld)29.5 %.[facility] Auto (RBC) [Entitic mass]Ordered By: Ashley Dickerson on 99-09-2786NVR (RBC) [Entitic mass]29.4 pg24.7-34.3FKettering HealthHC Auto (RBC) [Mass/Vol]Ordered By: Ashley Dickerson on 95-07-5981ZGWQ (RBC) [Mass/Vol]32.8 g/dL32.0-35.0[facility] SystemV Auto (RBC) [Entitic vol]Ordered By: Ashley Dickerson on 59-29-0543YVH (RBC) [Entitic vol]89.6 vM88-256ClxpjvrqdOhiohealth Mansfield HospitalMonocyte distribution width [Entitic volume] in Blood by AutomatedOrdered By: Ashley Dickerson on 74-11-4510Asrttrrp distribution width Auto (Bld) [Entitic vol]18.47 % 0.00-20.00[facility] HospitalMonocytes Auto (Bld) [#/Vol]Ordered By: Ashley Dickerson on 29-56-2625Zevozpupn (Bld) [#/Vol]0.5 10*3/uL0.0-0.8 [facility] HospitalMonocytes/100 WBC Auto (Bld)Ordered By: Ashley Dickerson on 40-35-8493Hrsijkeha/100 WBC (Bld)7.4 %.[facility] HospitalNatriuretic peptide B [Mass/Vol]Ordered By: Albert Palacio on 36-87-2607Urzxibimpbh peptide B (Bld) [Mass/Vol]12.0 pg/mL5-100Ohio[facility]field HospitalNeutrophils Auto (Bld) [#/Vol]Ordered By: Ashley Dickerson on 07-45-7805Suqeccilrou (Bld) [#/Vol]3.6 10*3/uL1.8-7.7FWood County HospitalNeutrophils/100 WBC Auto (Bld)Ordered By: Ashley Dickerson on 09-73-4301Cdmvezqogro/100 WBC (Bld)58.0 %.[facility] HospitalNo Panel InformationOrdered By: Ashley Dickerson on 84-56-7402Ouxfdqb Estimated GFR (eGFR)51.432Ohio[facility] Mansfield HospitalBedside Glucose CommentGlu2: cleaned meterOhiohealth Mansfield HospitalEstimated GFR (CKD-EPI)> 60.0 mL/MinOhiohealth Mansfield HospitalPharmacy Creatinine Clearance (Chem42.88 [facility] HospitalNucleated erythrocytes [Presence] in Blood by Automated countOrdered By: Ashley Dickerson on 29-07-4611Qkmrnelnz RBC Auto Ql (Bld)0.1 /100{WBC}0-0.5FWood County HospitalPlatelet mean volume Auto (Bld) [Entitic vol]Ordered By: Ashley Dickerson on 74-18-9063Vrvcacnk mean volume (Bld) [Entitic vol]7.8 fL6.3-10.7FWood County Hospital Platelets Auto (Bld) [#/Vol]Ordered By: Ashley Dickerson on 60-30-0126Zdymykhac (Bld) [#/Vol]221 10*3/hV926-830DktoyhaumOhiohealth Mansfield HospitalPotassium [Moles/volume] in Serum or PlasmaOrdered By: Ahsley Dickerson on 04-13-2024 Potassium [Moles/Vol]4.1 mmol/L3.5-5.1FWood County HospitalProtein [Mass/volume] in Serum or PlasmaOrdered By: Ashley Dickerson on 48-72-2995Zptpcdo [Mass/Vol]6.6 g/dL6.4-8.9[facility] HospitalProthrombin time (PT) Ordered By: Ashley Dickerson on 34-32-9143NT Coag (PPP) [Time]12.5 s9.0-12.9 [facility] HospitalComment on above:A hematocrit value greater than 55% may lead to inaccurate results in coagulation testing. Patientshaving hematocrit values >55% require a special collection tube for coagulation studies. Please contact the laboratory at [phone] for redraw instructions. RBC Auto (Bld) [#/Vol]Ordered By: Ashley Dickerson on 03-62-9573VDY (Bld) [#/Vol] 4.32 10*6/uL3.60-5.00[address] Hospitalerum or plasma albumin/globulin mass ratioOrdered By: Ashley Dickerson on 04-13-2024 Albumin/Globulin [Mass ratio]1.2 {ratio}[address] Hospitalerum or plasma anion gap determinationOrdered By: Ashley Dickerson on 82-87-4138Xghxy gap [Moles/Vol]9.1 mmol/L6.0-15.0[address] Hospitalodium [Moles/volume] in Serum or PlasmaOrdered By: Ashley Dickerson on 71-02-8160Ecurpr [Moles/Vol]138 mmol/Q397-205EzddlrrdhOhiohealth Mansfield HospitalTroponin I.cardiac [Mass/volume] in Serum or Plasma by Detection limit <= 0.01 ng/Ordered By: Albert Palacio on 61-89-0059Pekynpye I.cardiac DL <= 0.01 ng/mL [Mass/Vol]454.0 pg/mL0.0-15.0[facility] HospitalComment on above:Critical Result : Called to and read back by: HUGH BRUMFIELD at: 04/13/2024 19:01:57 by:[id number] nitrogen [Mass/volume] in Serum or PlasmaOrdered By: Ashley Dickerson on 73-43-5302Vanw nitrogen [Mass/Vol]19 mg/dL7-25[facility] HospitalWBC Auto (Bld) [#/Vol]Ordered By: Ashley Dickerson on 04-05-3250IEE (Bld) [#/Vol]6.3 10*3/uL3.8-11.6FWood County HospitalECG 12 [place] 12-52-5631RnyifcukeyOhio Valley Surgical Hospital Work Phone: Normal sinus rhythm cannot exclude pattern of septal myocardial infarction no acute abnormalitiesCPACSClinton Memorial Hospital Work Phone: Creatinine (Bld) [Mass/Vol]Ordered By: COURTNEY LOCKHART on 24-54-7219Jdiyaeieyv [Mass/Vol]0.7 mg/dL0.6-1.3FWood County HospitalComment on above:ER/ESD physician is notified/shown all ISTAT results.Critical values may be confirmed by laboratorytesting ifdeemed necessary by ER attending doctor.No Panel InformationOrdered By: COURTNEY LOCKHART on 56-21-8559Xtabble Estimated GFR (eGFR)> 60.0[facility] HospitalCT Chest WO contraston 71-23-0658RYCFXSMRGC: 1. There are scattered reticular opacities bilaterally [...] any questions regarding this interpretation, please call [phone]. If you are unable to reach us at the number above, please feel free to contact [facility] at [phone].DIVISION OF RADIOLOGY* * *Final Report* * * DATE OF EXAM: Dec 27 2023 1:09PM [facility] 0541 - CT CHEST WO IVCON [...] calcified gallstone is noted in the gallbladder. Director Counseling Bureau (topogram) images: No additional findings. DIVISION OF RADIOLOGYProvider, [facility] [place] - 12/28/2023 * * *Final Report* * * DATE OF EXAM: Dec 27 2023 1:09PM [facility] 0541 - CT CHEST WO IVCON [...] calcified gallstone is noted in the gallbladder. Director Counseling Bureau (topogram) images: No additional findings. IMPRESSION IMPRESSION: [...] any questions regarding this interpretation, please call [phone]. If you are unable to reach us at the number above, please feel free to contact [facility] eRadiology at [phone]. [facility] Chest WO contrastOrdered By: Ccf Provider on 12-28-2023 [facility] Chest WO contraston 75-70-1085Obpbxhhbw Study observation (narrative)[facility] DIFFUSION CAPACITY (DLCO)on 12-81-8785Lzizewtxc ClinicSPIROMETRY WITH DILATOR IF OBSTRUCTEDon 16-71-8552JUXC (ml/min/mmHg)9.76 ml/min/mmHgSelect Medical Specialty Hospital - Southeast OhioDLCO/VA (ml/min/mmHg/L)4.48 ml/min/mmHg/LCleveland BpmfgeZNM83-77% PRE (L/S)1.32 L/SCleveland ClinicFEV1 PRE (L)1.05 LCleveland ClinicFEV1/FVC PRE (%)89 %[facility] OhioFVC PRE (L)1.19 LCleveland ClinicPEF PRE (L/S)1.90 L/SCleveland ClinicVA (L)2.18 LCleveland ClinicThyrotropin [Units/volume] in Serum or PlasmaOrdered By: Valdez Castro on 42-29-2618XBO Qn 0.51 m[IU]/L0.45-5.33[facility] HospitalThyroxine (T4) free [Mass/volume] in Serum or PlasmaOrdered By: Valdez Castro on 76-81-9721Cabs T4 [Mass/Vol]0.74 ng/dL0.61-1.12[facility] HospitalTriiodothyronine (T3) Free [Mass/volume] in Serum or PlasmaOrdered By: Valdez Castro on 57-34-3610Ppsa T3 [Mass/Vol]3.08 pg/mL2.50-3.90[facility] Basophils Auto (Bld) [#/Vol]Ordered By: Hermes Kennedy on 63-29-5028Hvylpggow (Bld) [#/Vol]0.0 10*3/uL0.0-0.2FWood County HospitalBasophils/100 WBC Auto (Bld)Ordered By: Hermes Kennedy on 58-41-1375Vyoxmkyci/100 WBC (Bld)0.5 %.[facility] HospitalCreatinine and Glomerular filtration rate.predicted panel (S/P/Bld)Ordered By: Hermes Kennedy on 64-12-5488Kvirrmtrft [Mass/Vol]0.61 mg/dL0.44-1.03[facility] HospitalEosinophils Auto (Bld) [#/Vol]Ordered By: Hermes Kennedy on 45-45-2877Ihiumnjvbxe (Bld) [#/Vol]0.1 10*3/uL0.0-0.45[facility] HospitalEosinophils/100 WBC Auto (Bld) Ordered By: Hermes Kennedy on 74-19-2353Xexkapodvfy/100 WBC (Bld)2.3 %.[facility] HospitalErythrocyte distribution width Auto (RBC) [Ratio]Ordered By: Hermes Kennedy on 90-61-6942Tuxqwsxvqpz distribution width (RBC) [Ratio]13.2 %11.9-15.3FWood County HospitalEstimated glomerular filtration rate (GFR) non- AmericanOrdered By: Hermes Kennedy on 93-97-9406JCO/1.73 sq M.predicted among non-blacks MDRD (S/P/Bld) [Vol rate/Area]> 60 mL/MinOhiohealth Mansfield HospitalHematocrit Auto (Bld) [Volume fraction]Ordered By: Hermes Kennedy on 15-01-8456Xvinhkghvm (Bld) [Volume fraction]38.3 %34.0-46.4 [facility] HospitalHemoglobin [Mass/volume] in BloodOrdered By: Hermes Kennedy on 61-69-2991Hncguwzuig (Bld) [Mass/Vol]12.4 g/dL11.8-15.4 [facility] HospitalLeukocytes [#/volume] corrected for nucleated erythrocytes in Blood by Automated counOrdered By: Hermes Kennedy on 12-26-2022 WBC corrected for nucl RBC Auto (Bld) [#/Vol]6.4 10*3/uL3.8-11.6FWood County HospitalLymphocytes Auto (Bld) [#/Vol]Ordered By: Hermes Kennedy on 36-32-5580Vkskqfgduxj (Bld) [#/Vol]2.2 10*3/uL1.00-4.8[facility] HospitalLymphocytes/100 WBC Auto (Bld)Ordered By: Hermes Kennedy on 01-40-4852Dgeaulxkfwp/100 WBC (Bld)34.9 %.[facility] SystemH Auto (RBC) [Entitic mass]Ordered By: Hermes Kennedy on 91-21-0125ZLQ (RBC) [Entitic mass]29.5 pg24.7-34.3FKettering HealthHC Auto (RBC) [Mass/Vol]Ordered By: Hermes Kennedy on 00-70-9831OZKM (RBC) [Mass/Vol]32.3 g/dL 32.0-35.0[facility] HospitalMCV Auto (RBC) [Entitic vol]Ordered By: Hermes Kennedy on 51-65-6989ARU (RBC) [Entitic vol]91.2 mH03-992SilzhyamnOhiohealth Mansfield HospitalMonocytes Auto (Bld) [#/Vol]Ordered By: Hermes Kennedy on 91-98-6909Owxpyntby (Bld) [#/Vol]0.5 10*3/uL0.0-0.8[facility] HospitalMonocytes/100 WBC Auto (Bld)Ordered By: Hermes Kennedy on 12-26-2022 Monocytes/100 WBC (Bld)8.3 %.[facility] HospitalNeutrophils Auto (Bld) [#/Vol]Ordered By: Hermes Kennedy on 70-54-5976Kxaeovilvfj (Bld) [#/Vol]3.5 10*3/uL1.8-7.7FWood County HospitalNeutrophils/100 WBC Auto (Bld) Ordered By: Hermes Kennedy on 62-85-4326Aezltoxffzh/100 WBC (Bld)54.0 %.[facility] HospitalNo Panel InformationOrdered By: Hermes Kennedy on 37-53-4594Fwdodpxqw GFR ()> 60 mL/MinOhiohealth Mansfield HospitalComment on above:GFR estimated reference range: According to KDOQI guidelines, <60 ml/min/1.73m2 is sufficient todiagnose a patient with chronic kidney disease.Pharmacy Creatinine Clearance (ChemN/[facility] HospitalNucleated erythrocytes [Presence] in Blood by Automated countOrdered By: Hermes Kennedy on 61-05-6182Vhgsilrlp RBC Auto Ql (Bld)0.2 /100{WBC}0-0.5 [facility] HospitalPlatelet mean volume Auto (Bld) [Entitic vol] Ordered By: Hermes Kennedy on 98-42-9388Fiihwyoo mean volume (Bld) [Entitic vol] 8.5 fL6.3-10.7FWood County HospitalPlatelets Auto (Bld) [#/Vol] Ordered By: Hermes Kennedy on 49-04-4270Cjsockbcb (Bld) [#/Vol]218 10*3/lM564-313 [facility] HospitalRBC Auto (Bld) [#/Vol]Ordered By: Hermes Kennedy on 72-58-7061ZGO (Bld) [#/Vol]4.20 10*6/uL3.60-5.00[address] Hospitalerum or plasma anion gap determinationOrdered By: Hermes Kennedy on 47-19-1450Wpimy gap [Moles/Vol]10.0 mmol/L6.0-15.0[address] Hospitalerum or plasma calcium measurement (mass/volume)Ordered By: Hermes Kennedy on 36-63-4724Fpulzxa [Mass/Vol]9.1 mg/dL8.2-10.2FSuburban Community Hospital & Brentwood Hospitalerum or plasma chloride measurement (moles/volume)Ordered By: Hermes Kennedy on 29-48-2992Ovoastpa [Moles/Vol]104 mmol/W10-880OqxkdvalzWilson Street Hospitalerum or plasma glucose measurement (mass/volume)Ordered By: Hermes Kennedy on 37-27-8193Vcyjxkf [Mass/Vol]80 mg/aW39-725ZnohekzfvOhiohealth Mansfield HospitalComment on above:ADA recommended reference rangeRandom Glucose Reference Range is dependent on time and content of last meal. Glucose of more than 200 mg/dL in a nonstressed, ambulatory subject supports the diagnosisof Diabetes Mellitus.Serum or plasma potassium measurement (moles/volume)Ordered By: Hermes Kennedy on 34-96-3152Ozajzwmdj [Moles/Vol]4.3 mmol/L3.5-5.1FSuburban Community Hospital & Brentwood Hospitalerum or plasma sodium measurement (moles/volume)Ordered By: Hermes Kenendy on 31-05-1281Zfsmed [Moles/Vol]139 mmol/J998-326LwalbociiWilson Street Hospitalerum or plasma total carbon dioxide measurement (moles/volume)Ordered By: Hermes Kennedy on 88-51-6751ZI3 [Moles/Vol]29.3 mmol/L 22.0-30.0Wilson [address] Hospitalerum or plasma urea nitrogen measurement (mass/volume)Ordered By: Hermes Kennedy on 07-61-2528Zmux nitrogen [Mass/Vol]21 mg/dL9-23Ohiohealth Mansfield HospitalWBC Auto (Bld) [#/Vol] Ordered By: Hermes Kennedy on 83-72-9248FRA (Bld) [#/Vol]6.4 10*3/uL3.8-11.6 [facility] HospitalCULTURE URINEon 78-67-5778KTVGPIA URINECulture Observations: NO GROWTH.NormalThe [facility] CenterComment on above:Performed By: #### URCX #### [facility] [address] [place] [address] Dr. Mojgan Blanton RANDOM W/MICROSCOPICon 12-80-9215RWADQHHQYUFS SEENNormalNONE SEENPromedica Flower HospitalComment on above:Performed By: #### UAMIC #### [facility] [address] [address] [address] Mojgan Davilairubin Ql (U)NegativeNormalNEGATIVEThe [facility] Comment on above:Performed By: #### UAMIC #### [facility] [address] [address] [address] Mojgan Love OX CRYSTALSFEWNoParkwood HospitalComment on above: Performed By: #### UAMIC #### [facility] [address] [address] [address] Mojgan CastanonNONDejan SEENNormalNONE SEENPromedica Flower HospitalComment on above:Performed By: #### UAMIC #### [facility] [address] [address] [address] Mojgan Rivera (U)CLEARNormalCLEARPromedica Flower HospitalComment on above: Performed By: #### UAMIC #### [facility] [address] [address] [address] Mojgan Rm (U)LT. YELLOWNormalYELLOWPromedica Flower HospitalComment on above:Performed By: #### UAMIC #### [facility] [address] [address] [address] Mojgan Gomezystals LM Nom (Urine sed)SEENAbnormalNONE SEENPromedica Flower HospitalComment on above:Performed By: #### UAMIC #### [facility] [address] [address] [address] Ulrich ChangEpithelial cells LM Ql (Urine sed)NONE SEENNormalNONE SEEN /RARE [facility] Flower HospitalComsparrow ionia hospital on above:Performed By: #### UAMIC #### [facility] [address] [address] [address] Mojgan DailyGlucose Ql (U)NegativeNormalNEGATIVEPromedica Flower HospitalComment on above:Performed By: #### UAMIC #### [facility] [address] [address] [address] Mojgan DailyHemoglobin Ql (U)NegativeNormalNEGATIVESouthwest General Health Center on above:Performed By: #### UAMIC #### [facility] [address] [address] [address] Mojgan DailyKetones Ql (U)NegativeNormalNEGATIVEPromedica Flower HospitalComment on above:Performed By: #### UAMIC #### [facility] [address] [address] [address] Mojgan NavarreteOCYTESSMALLAbnormalNEGBarberton Citizens HospitalComsparrow ionia hospital on above:Performed By: #### UAMIC #### [facility] [address] [address] [address] Mojgan CulverCOUSHOLDEN SEENNormalNONE SEENPromedica Flower HospitalComment on above:Performed By: #### UAMIC #### [facility] [address] [place] [address] Dr. Mojgan Presleytrdagoberto Ql (U)NegativeNormalNEGATIVEThe [facility] HospitalComment on above:Performed By: #### UAMIC #### [facility] [address] [address] [address] Mojgan DailypH (U)5.0 [pH]Normal5-9The [facility] CenterComment on above: Performed By: #### UAMIC #### [facility] [address] [place] [address] Dr. Mojgan DailyRBCNONE SEENAbnormal0-2The [facility] CenterComment on above: Performed By: #### UAMIC #### [facility] [address] [place] [address] Dr. Mojgan DailySPEC GRAVITY1.555Jeepbe6.005-<=1.025The [facility] Medical CenterComment on above:Performed By: #### UAMIC #### [facility] [address] [place] [address] Dr. Mojgan Blanton PROTEINNegativeNormalNEGATIVE/ TRACEThe [facility] Comment on above:Performed By: #### UAMIC #### [facility] [address] [place] [address] Dr. Mojgan DailyURIC ACID CRYSTALSRARENormalThe [facility] CenterComment on above:Performed By: #### UAMIC #### [facility] [address] [place] [address] Dr. Mojgan Thompsonbilinogen Qn (U)0.2 {Amanuel'U}/dLNormal0.2 - 1.0The [facility] CenterComment on above:Performed By: #### UAMIC #### [facility] [address] [place] [address] Dr. Mojgan DailyWBC2-5AbnormalNONE SEENThe [facility] Medical CenterComment on above: Performed By: #### UAMIC #### [facility] [address] [address] [address] Mojgan DailyMG MAMM SCREEN 3D EBONIE CADon 23-29-3667TY MAMM SCREEN 3D EBONIE CAD Patient: KARUNA REYNAGA Exam Date: 03/27/2022 : 1945 Gender:F Ordering : DR JAMAL ALVAREZ Admission #: [id number] Family : Order #: [id number] CLICK HERE TO VIEW EXAM RADIOLOGY REPORT [...] Treatments None Family Cancers None LOCATION: [facility] BREAST COMPOSITION: Almost entirely fatty. [...] by: Jeaneth Echols MD on 03/27/2022 at 14:10[facility] Comprehensive metabolic 2000 panelon 55-01-9915Snrjuqj [Mass/Vol]4.0 g/dL3.9 - 4.9 g/dLCleveland ClinicALP [Catalytic activity/Vol]55 U/L34 - 123 U/LCleveland ClinicALT [Catalytic activity/Vol]16 U/L7 - 38 U/LCleveland ClinicAnion gap [Moles/Vol]10 mmol/L9 - 18 mmol/LCleveland ClinicAST [Catalytic activity/Vol]16 U/L13 - 35 U/LCleveland ClinicBilirubin [Mass/Vol]0.3 mg/dL0.2 - 1.3 mg/dL [facility] ClinicCalcium [Mass/Vol]9.4 mg/dL8.5 - 10.2 mg/dLSelect [facility] [place] Chloride [Moles/Vol]107 mmol/LHigh97 - 105 mmol/LCleveland ClinicCO2 [Moles/Vol] 28 mmol/L22 - 30 mmol/LCleveland ClinicCreatinine [Mass/Vol]0.81 mg/dL0.58 - 0.96 mg/dLSelect [facility] Hospital [facility] OhioEstimated Glomerular Filtration Rate75 mL/min/1.73m >=60 mL/min/1.73mCleveland Windom Area HospitalGlucose [Mass/Vol]102 mg/dVBftn72 - 99 mg/dL [facility] OhioPotassium [Moles/Vol]4.5 mmol/L3.7 - 5.1 mmol/LC[facility] Clinic Protein [Mass/Vol]6.7 g/dL6.3 - 8.0 g/dLUniversity Hospitals St. John Medical Centerodium [Moles/Vol]145 mmol/QYnfr955 - 144 mmol/LCleveland Windom Area HospitalUrea nitrogen [Mass/Vol]22 mg/dLHigh7 - 21 mg/dLSelect Medical Specialty Hospital - Southeast OhioOffice Visit (Cardiology)on 08-01-1630Reafha-up visit Diagnoses/Problems Assessed Pre-operative cardiovascular examination (V72.81) (Z01.810) Sinus bradycardia (427.89) (R00.1) Class 1 obesity with body mass index (BMI) of 30.0 to 30.9 in adult (278.00,V85.30) (E66.9,Z68.30) Former smoker (V15.82) (Z87.891) Quit 1980 Orders Class 1 obesity with body mass index (BMI) of 30.0 to 30.9 in adult Healthy Weight Tips; Status:Complete - Retrospective Authorization; Done: [id number] Pre-operative cardiovascular examination IO EKG Electrocardiogram- 12 Lead; Status:Complete; Done: 16Xqv4811 SocHx: Former smoker Tobacco Use Screening; Status:Complete; Done: 33Uyc7229 Patient Instructions Follow up as needed only [...] negative for complaint. Vitals Vital Signs Recorded: 91Nsb4652 11:08AMRecorded: 72Cnl3530 11:07AM Tesupwak538, LUE, Qrmcexx819, LUE, Sitting Uqmpitpyt28, LUE, Owgdjaj98, LUE, Sitting Heart Rate58, Apical Height4 ft 10 in Zhzqkg114 lb BMI (more content not included)...NormalUH TouchworksTobacco Screening.on 45-04-1330Ayxa risk assessmenta) No falls within the last year-[facility] [employer] 250 DO Work Phone: Tobacco use status CPHSb) NoM-[facility] [employer] 250 DO Work Phone: XR Chest 2 Views*on 76-73-6994EK Chest 2 Views* CLINICAL HISTORY: Preop imaging. Abnormal breath sounds right lung COMPARISONS: April 09, 2020 FINDINGS: The heart, mediastinum and pulmonary vasculature are within normal limits. Stable of mild interstitial coarsening consistent with nonspecific fibrosis.. Bones unremarkable IMPRESSION: No active lung disease Report reported and signed by Kole Nino on 10/13/2021 1530NormalNorttucson medical centern [place] [employer] Vital Signs Date TimeVital SignValuePerforming ZzxejchepRdimopmx61-59-7324 14:14-0400Body xqvtiv892.8 cmSummer Workman PA Work Phone: [facility] HospitalJhufkrppuc48-79-0787 14:14-0400Body mass index (BMI) [Ratio]27.7 kg/s0Pgfaed Workman PA Work Phone: [facility] HospitalYesvueavjh52-84-7006 14:14-0400Body snaihm68.06 kgSumm Workman PA Work Phone: [facility] HospitalKwnkbtndxk50-95-1459 14:14-0400Diastolic blood dceqjhrx64 mm[Hg][facility] Workman PA Work Phone: [facility] HospitalRsnndmozgu16-65-0745 14:14-0400Heart rate66 /min [facility] Workman PA Work Phone: [facility] HospitalXnjvctqrzq47-85-2881 14:14-4415BhR5% (BldA) [Mass fraction]99 %[facility] Workman PA Work Phone: [facility] HospitalEawuxflrgp13-18-5367 14:14-0400Systolic blood lybpdxax337 mm[Hg][facility] Workman PA Work Phone: [facility] HospitalTgrelcwyqc64-74-3210 19:00-0400Body iurtsl561.8 cmPacc 1 Work Phone: [facility]09-08-2025 19:00-0400Body mass index (BMI) [Ratio]27.19 kg/m2Pacc 1 Work Phone: [facility]09-08-2025 19:00-0400Body zboizo99 kg Pacc 1 Work Phone: [facility]09-08-2025 19:00-0400Diastolic blood bsqyobxo79 mm[Hg]Pacc 1 Work Phone: [facility]09-08-2025 19:00-0400Heart rate66 /min Pacc 1 Work Phone: [facility]09-08-2025 19:00-6434PnN0% (BldA) [Mass fraction]100 %Pacc 1 Work Phone: [facility]09-08-2025 19:00-0400Systolic blood tvjmymya864 mm[Hg]Pacc 1 Work Phone: [facility]08-21-2025 14:17-0400Body auabcd131.8 cmMicjitendra Lockhart CHEESE CUTTER Work Phone: [facility] HospitalBzgxmohape71-52-9617 14:17-0400Body mass index (BMI) [Ratio]27.89 kg/h5KqwvwrbCourtney Lockhart CHEESE CUTTER Work Phone: [facility] HospitalZpriijdqht13-57-3965 14:17-0400Body ruhlfo66.47 kgMicjitendra Lockhart CHEESE CUTTER Work Phone: NOSaint [facility] CenterVnvvefzsgb40-74-5921 14:17-0400Diastolic blood vevoxgne37 mm[Hg]Courtney Alstonos CHEESE CUTTER Work Phone: [address] [address]Fheqyaxjym96-63-3154 14:17-0400Heart rate65 /min Courtney Alstonos CHEESE CUTTER Work Phone: NOSaint [facility] Medical CenterCuuacyrwon02-97-3523 14:17-3948BxR5% (BldA) [Mass fraction]98 %Courtneylima Alstonos CHEESE CUTTER Work Phone: NOSaint [facility] Medical CenterRanbwktoph24-82-5186 14:17-0400Systolic blood qsfikhon908 mm[Hg]Courtney Simon CHEESE CUTTER Work Phone: [address] [address]Znlugcuzsi60-39-1313 15:17-0400Body temperature 98.01 [degF]Margo Castellon MD Work Phone: [facility]08-05-2025 15:17-0400Body zrjjqa82.3 kgMargo Castellon MD Work Phone: [facility]08-05-2025 15:17-0400Diastolic blood mm[Hg]Margo Castellon MD Work Phone: [facility]08-05-2025 15:17-0400Heart rate64 /min Margo Castellon MD Work Phone: [facility]08-05-2025 15:17-0400Respiratory rate 14 /minSgene Castellon MD Work Phone: [facility]08-05-2025 15:17-3282GdF8% (BldA) [Mass fraction]96 %Margo Castellon MD Work Phone: [facility]08-05-2025 15:17-0400Systolic blood dpiamsgd879 mm[Hg]Margo Castellon MD Work Phone: [facility]07-24-2025 15:43-0400Body qnldko111.8 cmJohndejan Simon CHEESE CUTTER Work Phone: noSaint [facility] CenterWjluougdzc17-86-8471 15:43-0400Body mass index (BMI) [Ratio]28.13 kg/w9Xzwinmd Poulos CHEESE CUTTER Work Phone: NOSaint [facility] CenterHdtyvahpju82-94-2034 15:43-0400Body amrqxt36.97 kgMickeyjitendra Alstonos CHEESE CUTTER Work Phone: NOS[facility] CenterSzwrdzptyr62-31-9099 15:43-0400Diastolic blood fvgqxxti91 mm[Hg]Courtney Lockhart CHEESE CUTTER Work Phone: noSaint Francis Medical CenterMdgjbelpps39-07-8523 15:43-0400Heart rate68 /min Courtney Lockhart CHEESE CUTTER Work Phone: NOSaint [facility] Medical CenterCqmpgqplkq69-50-9931 15:43-2165CxP1% (BldA) [Mass fraction]99 %Courtney Lockhart CHEESE CUTTER Work Phone: NOSaint [facility] Medical CenterPywhgwlyer64-01-7249 15:43-0400Systolic blood mm[Hg]Courtney Lockhart CHEESE CUTTER Work Phone: noSaint Francis Medical CenterYcavzukldy99-64-1708 14:29-0400Body gaaflb486.8 cmPatricia Barry MD Work Phone: 1(419)483-[address] [place], [place] [address]Naigsqkqbj31-77-4324 14:29-0400Body mass index (BMI) [Ratio]27.7 kg/t2WjntgyPatricia Barry MD Work Phone: [facility] HospitalNlqgdaodtg43-20-4141 14:29-0400Body slixol11.06 kgPatricia Barry MD Work Phone: [facility] HospitalPaybaaonpa55-55-9908 14:29-0400Diastolic blood dqvyjrfa21 mm[Hg]Patricia Barry MD Work Phone: 1(265)825-[address] [place], [place] [address]Ztjnxrpabn88-02-2275 14:29-0400Heart rate58 /min Patricia Barry MD Work Phone: [facility] HospitalFguigyrlcx65-90-8796 14:29-0400Systolic blood hmeshpmb077 mm[Hg]Patricia Barry MD Work Phone: [facility] HospitalPjhtdxcojm09-90-7520 14:40-0400Diastolic blood ktrigwtw56 mm[Hg]Jamal Alvarez DO Work Phone: 1(617)0-[address] [place], [place] 2782806-30-2025 14:40-0400 Heart rate56 /minJamal Alvarez DO Work Phone: 2(230)2-[address] [place], [place] 2782806-30-2025 14:40-0400 Respiratory rate16 /minJamal Alvarez DO Work Phone: 0(493)3-[address] [place], [place] 278[address]6-30-2025 14:40-0400 SaO2% (BldA) [Mass fraction]100 %Jamal Alvarez DO Work Phone: 1(331)0-[address] [place], [place] 278[address]6-30-2025 14:40-0400 Systolic blood mm[Hg]Jamal Alvarez DO Work Phone: 5(451)694-[address] [place], [place] 278[address]6-30-2025 13:07-0400 Body bslcie756.78 cmJamal Alvarez DO Work Phone: [address] [place], [place] 3387006-30-2025 13:07-0400 Body .06 kgJamal Alvarez DO Work Phone: [facility]05-21-2025 14:50-0400 Body aiiitr373.8 cmJaaml Antonio DO Work Phone: 5([phone])705-65[facility] HospitalAavmjzumer29-44-2073 14:50-0400Body mass index (BMI) [Ratio]27.85 kg/n0DakxtazJamal Alvarez DO Work Phone: 4(269)426-[address] [place], [place] [address]Myimaeuuxe30-57-9896 14:50-0400Body ahrnji23.38 kgJekali Mylesman DO Work Phone: 1(764)[address]05-21-2025 14:50-0400Heart rate68 /min Jamal Alvarez DO Work Phone: 1(990)970-[facility] HospitalVdocxoixdv57-50-4333 14:50-4511XxP3% (BldA) [Mass fraction]98 %Jamal Alvarez DO Work Phone: 6(608)[address]05-11-2025 11:24-0400Heart rate80 /min Jamal Alvarez DO Work Phone: 1(221)1-[address] [place], [place] 2782805-11-2025 11:24-0400 Respiratory rate18 /minJamal Alvarez DO Work Phone: 6(185)619-[address] [place], [place] 2782805-11-2025 08:00-0400 Body ixdwfbzgual86.8 [degF]Jamal Alvarez DO Work Phone: 1(532)1-[address] [place], [place] 2782805-11-2025 08:00-0400 Diastolic blood mm[Hg]Jamal Alvarez DO Work Phone: 1(380)350-[address] [place], [place] 2782805-11-2025 08:00-0400 SaO2% (BldA) [Mass fraction]95 %Jamal Alvarez DO Work Phone: 4(295)175-13[facility]05-11-2025 08:00-0400 Systolic blood shfquxjp24 mm[Hg]Jamal Alvarez DO Work Phone: 1(052)058-[address] [place], [place] 2782805-11-2025 06:00-0400 Body yanyah27.1 kgJekali Alvarez DO Work Phone: 1(715)954-[address] [place], [place] 2782805-10-2025 03:38-0400 Body .78 cmNoekali Antonio DO Work Phone: 0(658)377-[address] [place], [place] 2782805-10-2025 03:10-0400 Body zlektwerkah81.4 [degF]Jamal Alvarez DO Work Phone: 1(497)7-[address] [place], [place] 2782805-10-2025 03:10-0400 Diastolic blood jgiitfsa24 mm[Hg]Jamal Alvarez DO Work Phone: 1(399)[address]05-10-2025 03:10-0400 Heart rate83 /minJamal Alvarez DO Work Phone: 1(231)[address]05-10-2025 03:10-0400 Inhaled oxygen flow rate2 L/minJamal Alvarez DO Work Phone: 1(205)[address] [place], [place] [address]05-10-2025 03:10-0400 Respiratory rate20 /minJamal Alvarez DO Work Phone: 1(099)[address] [place], [place] 2782805-10-2025 03:10-0400 SaO2% (BldA) [Mass fraction]96 %Jamal Mylesman DO Work Phone: 8(376)8-[address] [place], [place] 2782805-10-2025 03:10-0400 Systolic blood pvqgokad617 mm[Hg]Jamal Alvarez DO Work Phone: 1(951)[address]05-09-2025 17:22-0400 Body ttqaam946.78 cmNoekali Mylesman DO Work Phone: 7(803)7-[address] [place], [place] 2782805-09-2025 17:22-0400 Body ojjypk87.05 kgNoekali Mylesman DO Work Phone: 8(508)3-[address] [place], [place] 2782805-01-2025 15:03-0400 Body mass index (BMI) [Ratio]28.26 kg/n6PttsezlJamal Alvarez DO Work Phone: 1(672)169-[address] [place], [place] [address]Qclkkbmdjy91-84-4474 15:03-0400Body tzlqug70.24 kgJejamestaya Alvarez DO Work Phone: [facility] HospitalUbsffnjzhg44-84-9009 15:03-4935YiL7% (BldA) [Mass fraction]97 %Jamal Alvarez DO Work Phone: [facility] HospitalNvikcmbyqp97-37-9500 16:13-0400Body yycauc270.8 cmMicjitendra Lockhart CHEESE CUTTER Work Phone: [facility] HospitalYmevyommup16-67-1599 16:13-0400Body mass index (BMI) [Ratio]29.21 kg/m2Zqfhjunjitendra Lockhart CHEESE CUTTER Work Phone: [facility] HospitalIlvipjqyld62-11-0498 16:13-0400Body mvxgog19.24 kgMicjitendra Lockhart CHEESE CUTTER Work Phone: [facility] HospitalAqdrwusrxf66-51-9420 16:13-0400Diastolic blood mm[Hg]Courtney Simon CHEESE CUTTER Work Phone: [facility] HospitalQpeqqoodsh69-72-8297 16:13-0400Heart rate68 /min Courtney Simon CHEESE CUTTER Work Phone: [facility] HospitalZoxwgixydu61-01-0894 16:13-2647ArS6% (BldA) [Mass fraction]99 %Courtney Simon CHEESE CUTTER Work Phone: [facility] HospitalWpgejaczfk36-91-6519 16:13-0400Systolic blood hjehtepu434 mm[Hg]Courtney Lockhart CHEESE CUTTER Work Phone: [facility] HospitalBrwjxxfeby23-20-4856 16:24-0400Diastolic blood sthfixcn86 mm[Hg]DO Jamal Alvarez Work Phone: [facility]06-12-2024 16:24-0400 Heart rate91 /minDO Jamal Alvarez Work Phone: [facility]06-12-2024 16:24-0400 Systolic blood sxdeqisb101 mm[Hg]DO Jamal Alvarez Work Phone: [facility]06-12-2024 16:00-0400 Body ryvlqccgrpc16.5 [degF]DO Jamal Alvarez Work Phone: 1(045)947-[address] [place], [place] 2782806-12-2024 16:00-0400 Respiratory rate16 /Skinny Alvarez Work Phone: 1(807)336-[address] [place], [place] 2782806-12-2024 16:00-0400 SaO2% (BldA) [Mass fraction]98 %DO Jamal Alvarez Work Phone: 1(185)[address]06-12-2024 06:00-0400 Body bnjljo41.5 kgDO Jamal Alvarez Work Phone: 1(220)[address]06-11-2024 14:38-0400 Body .78 cmDO Jamal Alvarez Work Phone: 1(524)[address]06-09-2024 20:50-0400 Diastolic blood olxdeezw28 mm[Hg]DO Jamal Alvarez Work Phone: 1(504)[address]06-09-2024 20:50-0400 Heart rate74 /Skinny Alvarez Work Phone: 1(049)746-[address] [place], [place] 2782806-09-2024 20:50-0400 Respiratory rate18 /Skinny Alvarez Work Phone: 1(115)2-[address] [place], [place] 2782806-09-2024 20:50-0400 SaO2% (BldA) [Mass fraction]92 %DO Jamal Alvarez Work Phone: 1(015)847-[address] [place], [place] 2782806-09-2024 20:50-0400 Systolic blood ghqqgojj117 mm[Hg]DO Jamal Alvarez Work Phone: 1(429)528-[address] [place], [place] 2782806-09-2024 15:54-0400 Body .86 cmDO Jamal Alvarez Work Phone: 1(134)016-[address] [place], [place] 2782806-09-2024 15:54-0400 Body ghazhprighr52.9 [degF]DO Jamaltaya Alvarez Work Phone: 1(060)441-[address] [place], [place] 2782806-09-2024 15:54-0400 Body bzecfm35.5 kgDO Jamal Alvarez Work Phone: 1(761)913-[address] [place], [place] 2782805-06-2024 13:13-0400 Body ipgacc067.5 cmJudit Lora MD Work Phone: 1(511)112-[address] [place], [place] 1156605-06-2024 13:13-0400 Body mass index (BMI) [Ratio]32.2 kg/l7ZkggyrJudit Lora MD Work Phone: 1(698)[address] [place], [place] 1156605-06-2024 13:13-0400 Body dgftuj74.32 kgJudit Lora MD Work Phone: 1(648)[address]05-06-2024 13:13-0400 Diastolic blood bziyuwqt81 mm[Hg]Judit Lora MD Work Phone: 1(368)[address]05-06-2024 13:13-0400 Heart rate74 /minJudit Lora MD Work Phone: 1(596)[address] [place], [place] 1156605-06-2024 13:13-0400 Systolic blood hbvpfetj250 mm[Hg]Judit Lora MD Work Phone: 1(961)795-[address] [place], [place] 1156604-19-2024 09:21-0400 Body sboppn332.24 cmDO Jamal Alvarez Work Phone: 1(572)353-[address] [place], [place] 2782804-19-2024 09:21-0400 Body vzmsqa37.77 kgDO Jamal Alvarez Work Phone: 1(396)937-[address] [place], [place] 2782804-18-2024 10:45-0400 Body ufqtay103.24 cmDO Jamal Alvarez Work Phone: 1(820)144-[address] [place], [place] 2782804-18-2024 10:45-0400 Body mass index (BMI) [Ratio]33.8 kg/m2DO Jamal Alvarez Work Phone: 1(287)236-[address] [place], [place] 2782804-18-2024 10:45-0400 Body .49 kgDO Jamal Alvarez Work Phone: [facility]04-18-2024 10:45-0400 Diastolic blood nrdxrkul58 mm[Hg]DO Jamal Alvarez Work Phone: [facility]04-18-2024 10:45-0400 Heart rate65 /Skinny Berry Antonio Work Phone: [facility]04-18-2024 10:45-0400 Systolic blood iwphthpr084 mm[Hg]DO Jamal Alvarez Work Phone: [address] [place], [place] 3387004-10-2024 18:46-0400 Body xzdyea667.24 cmDO Jamal Alvarez Work Phone: 1(124)[address]04-10-2024 18:46-0400 Body mass index (BMI) [Ratio]33.9 kg/m2DO Jamal Alvarez Work Phone: 1(489)087-[address] [place], [place] 2782804-10-2024 18:46-0400 Body rourmfheuun24.1 [degF]DO Jamal Alvarez Work Phone: [facility]04-10-2024 18:46-0400 Body paxzlq78.6 kgDO Jamal Alvarez Work Phone: 6(853)513-[address] [place], [place] 2782804-10-2024 18:46-0400 Diastolic blood ghelgotw78 mm[Hg]DO Jamal Alvarez Work Phone: [facility]04-10-2024 18:46-0400 Heart rate74 /Skinny Berry Antonio Work Phone: [facility]04-10-2024 18:46-0400 Respiratory rate18 /TyroneSheron Jamal Antonio Work Phone: [facility]04-10-2024 18:46-0400 SaO2% (BldA) [Mass fraction]94 %DO Jamal Alvarez Work Phone: [facility]04-10-2024 18:46-0400 Systolic blood qddnbief332 mm[Hg]DO Jamal Alvarez Work Phone: [facility]02-23-2024 13:29-0500 Body yjewobdkgww60.59 [degF]Irina Dubose MD Work Phone: [facility]02-23-2024 13:29-0500Body ukerdi90.38 kgIrina Dubose MD Work Phone: [facility]02-23-2024 13:29-0500Diastolic blood mm[Hg]Irina Dubose MD Work Phone: [facility]02-23-2024 13:29-0500Heart rate67 /min Irina Dubose MD Work Phone: [facility]02-23-2024 13:29-0500Respiratory rate 16 /minIrina Dubose MD Work Phone: [facility]02-23-2024 13:29-1565NyZ5% (BldA) [Mass fraction]97 %Irina Dubose MD Work Phone: [facility]02-23-2024 13:29-0500Systolic blood mm[Hg]Irina Dubose MD Work Phone: [facility]12-17-2021 11:08-0500Diastolic blood zuoctgad78 mm[Hg]Jamal Alvarez Work Phone: [phone]-Xrwsm [facility] DO Work Phone: 1(165) [phone] 11:08-0500Systolic blood yejnavmh013 mm[Hg] Jamal Alvarez Work Phone: [phone]-Gzbjx [facility] DO Work Phone: 1(487) 285-278712-17-2021 11:07-0500Body vpvugi653.32 cmJekali Alvarez Work Phone: [phone]-Xrjru [facility] DO Work Phone: 1(316) [phone] 11:07-0500Body mass index (BMI) [Ratio] 30.31 kg/t5Peopyzu A Antonio Work Phone: mp154-3361NF-Uyxgq [facility] DO Work Phone: 1(516) 994-475812-17-2021 11:07-0500Body surface area Derived from formula1.59 q3GszflmaJamal Mylesman Work Phone: [phone]-Ydqwz [facility] DO Work Phone: 1([phone] 11:07-0500Body .77 kgJamal Campbell Antonio Work Phone: [phone]-Pszzk [facility] DO Work Phone: 1([phone] 11:07-0500Diastolic blood mxtrvonk41 mm[Hg] Jamal Alvarez Work Phone: [phone]-Otmqf [facility] DO Work Phone: [phone] 11:07-0500Heart rate58 /minJamal Mylesman Work Phone: [phone]-Ivqmy [facility] DO Work Phone: 1(728) 494-468212-17-2021 11:07-0500Systolic blood sbrceaef406 mm[Hg] Jamal Mylesman Work Phone: [phone]-Imhaj [facility] DO Work Phone: Encounters Encounter DateEncounter TypeCare ProviderFacilityStart: 08-21-2025 End: 05-26-4325zzsaxgagqqTYYQNI M WORKMANNot AvailableStart: 08-21-2025 End: 41-02-4696Qixfbz outpatient visit 25 minutesSuchelsey LALA Work Phone: [facility] Internal MedicineComment on above:Pain and swelling of lower leg, right (Primary Dx); Lumbar radiculopathy, right; Seasonal allergiesStart: 08-06-2025 End: 97-18-5840dkvfwpkeutCRTYOB VALE BURTONFacility:[facility] Start: 08-06-2025 End: 86-95-8197aoolpzqqbpKMGHRC Noman BURTONNot AvailableStart: 07-24-2025 End: 68-17-6698Djkalitno Result EncounterGeneric External Data ProviderNOOK External Department UnsolicitedStart: 07-24-2025 End: 57-63-1567Hribdfbdp Result EncounterGeneric External Data ProviderNOOK External Department UnsolicitedStart: 07-24-2025 End: 09-73-6681Sltybvazmo and management of inpatientROBERT VALE [place] [facility] 07-13-2025 End: 78-15-6817Zgmcil outpatient new 30 minutesPacc Rej 1 Work Phone: Pre AnesthesiaComment on above:Pre-op evaluation (Primary Dx); Hypercholesteremia; 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 (HCC); Pulmonary hypertension (HCC); Seizure disorder (HCC); Traumatic brain injury, with unknown loss of consciousness status, subsequent encounter; Interstitial lung disease (HCC); TIA (transient ischemic attack); At risk for aspiration pneumonia; longterm (current) use of antithrombotics/antiplatelets; PrediabetesStart: 07-13-2025 End: 48-07-9581Soalktbaymsru examination donePacc Rej 1 Work Phone: [facility]art: 07-13-2025 End: 99-81-2344ojzyvzxdnrGSDIND LEWIS HILLFacility:[facility] Start: 96-04-2262Txtqpluuy for other preprocedural examinationEast Liverpool City HospitalStart: 07-13-2025 End: 63-19-3932Hfribjpks encounterSgene Castellon MD Work Phone: General SurgeryComment on above:Patient Question; AppointmentStart: 07-10-2025 End: 00-84-9930syjejvzvhjMAVYMO LEWIS CAMAS VALLEYFacility:[facility] Start: 07-10-2025 End: 13-80-0998Gjdagep encounter Jackie LANDON Work Phone: AudiologyComment on above:Dysfunction of both eustachian tubes (Primary Dx)Middle ear effusion, right (Primary Dx); Chronic otitis media of both earsStart: 07-01-2025 End: 89-34-9512Plktlpvrn to same day surgery florenciaJeanne Brown Suzi AnesthesiaComment on above:Preparations For Surgery (PACC)Start: 07-01-2025 End: 95-03-3689pvsiiztpytKdghdpy McLemore RNPre AnesthesiaStart: 06-25-2025 End: 78-29-2189hwyshyomskNARDOUJ L POULOSNot AvailableStart: 06-25-2025 End: 01-46-4860gyjjvnhlhbEGLWPXO L POULOSNot AvailableStart: 06-25-2025 End: 66-50-8342Jyffmf outpatient visit 25 minutesCourtney Lockhart NP Work Phone: [facility] Internal MedicineComment on above:Pure hypercholesterolemia (Primary Dx); Prediabetes; 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 (HCC); Chronic obstructive pulmonary disease, unspecified COPD type (HCC); Bronchiectasis without complication (HCC); Seizure disorder (HCC); Pulmonary hypertension (HCC); Acquired hypothyroidism ; Left leg weakness; 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 Start: 06-09-2025 End: 77-47-2224ubsyevmawkDCNECPA ALLAN GARMANFacility:[facility] Start: 06-09-2025 End: 83-25-2641Bwojqf outpatient new 30 minutesMargo Castellon MD Work Phone: General SurgeryComment on above:Symptomatic cholelithiasisStart: 06-04-2025 End: 32-73-2010qcahkykqzeSkapsuz Nathalia ROSS Work Phone: OtolaryngologyComment on above:Peds hearing test with myringotomy with physician followingStart: 06-02-2025 End: 38-98-6321xgejrvnaxcSHRYMED ALLAN GARMANFacility:[facility] Start: 05-29-2025 End: 44-91-3158XdnriwIaiceRosalinda Dubose MD Work Phone (unformatted): [phone] [facility] Comment on above:Refill RequestStart: 05-28-2025 End: 32-69-4961Cethxl outpatient visit 25 minutesCourtney Lockhart CHEESE CUTTER Work Phone: noms SWS IMComment on above:Generalized abdominal pain (Primary Dx); Diarrhea, unspecified type; Nausea and vomiting, unspecified vomiting type; Other specified intestinal obstruction, unspecified whether partial or complete (HCC); DiverticulosisStart: 05-28-2025 End: 32-74-7328alhdgcxjsiJLEAYVY GARMANNot AvailableStart: 05-28-2025 End: 06-41-4317Fwuyfgo encounter procedureFlex Ramos MD-[facility] Work Phone: Start: 05-28-2025 End: 13-29-4053hoyycyknjdUsoqtry Garman DO Work Phone: [facility] Work Phone: Start: 05-22-2025 End: 65-19-7838vbwlpugbrxLZUCHGY L DIDIONNot AvailableStart: 05-22-2025 End: 13-81-6323Bjhcom outpatient visit 15 minutesDee Jackson CHEESE CUTTER Work Phone: noms SWS IMComment on above:Acute bilateral mastoiditis (Primary Dx); Other specified hearing loss of both earsStart: 05-20-2025 End: 03-20-0812Ldpgpz outpatient new 45 minutesHiladonovan Barry MD Work Phone: noms CI ENTComment on above:OME (otitis media with effusion), right (Primary Dx)Start: 05-20-2025 End: 18-72-6031etsylucpuePJMYGK H TIMMISNot AvailableStart: 05-20-2025 End: 46-37-7126Xlaftqkandice Barry MD Work Phone: noms CI ENTStart: 05-20-2025 End: 55-38-9919Fnwqdekandice Barry MD Work Phone: noms CI ENTStart: 05-07-2025 End: 82-20-4278Drfwszz encounter procedureJamal Alvarez DO-CT Scan [facility] [place] Work Phone: Start: 05-07-2025 End: 56-24-0461kpfmkuafdnEbissfj Garman DO Work Phone: [facility] Work Phone: Start: 05-07-2025 End: 24-93-4837Lgibpgoe Result EncounterJamal Alvarez DO Work Phone: noms External Department UnsolicitedStart: 05-07-2025 End: 58-10-7247Dfdrymlv Result EncounterJamal Alvarez DO Work Phone: noms External Department UnsolicitedStart: 05-04-2025 ambulatoryBarre City HospitalMed[facility] PPGStart: 05-04-2025 End: 49-02-5795asxruqswkqHych AsaadFacility:[facility] Start: 85-11-2929Ilo-patient / Non-visitFlex Ramos MD-[facility] Work Phone: Start: 04-08-2025 End: 03-39-4193Nqsurx-up encounterJamal Alvarez DO Work Phone: noms SWS IMComment on above:Ankylosing spondylitis lumbar region (CMS/HCC) (Primary Dx)Start: 04-07-2025 End: 91-84-4551rmlzqsvwceGZVYHAY A GARMANNot AvailableStart: 03-25-2025 End: 84-74-7579yroeggfpdzYQXZYLG A GARMANNot AvailableStart: 03-25-2025 End: 69-16-7683Lcocsqywupbc care manage srvc 14 day dischargeJamal Alvarez DO Work Phone: noms [facility] IMComment on above:Bronchiectasis with acute lower respiratory infection (CMS/HCC) (Primary Dx); Pneumonia due to human metapneumovirus; Hilar adenopathy; Severe persistent reactive airway disease with acute exacerbation (CMS/HCC); Pulmonary hypertension, unspecified (CMS/HCC); Chronic reflux esophagitis; Traumatic brain injury with loss of consciousness, subsequent encounter; 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 (CMS/HCC); 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); Hypothyroidism, unspecified type (CMS/HCC)Start: 03-25-2025 End: 19-04-2501Baaqpe flowsSusanne Alvarez DO Work Phone: noms [facility] IMStart: 03-25-2025 End: 53-97-2744Oonyjz Dhruv Alvarez DO Work Phone: noms [facility] IMStart: 03-20-2025 End: 08-24-9231VpqkxxIcggfm S Stojic MD, PhD Work Phone: NeurologyStart: 03-18-2025 End: 83-04-2028Gahyp abstractingIrina Dubose MD Work Phone: Pulmonary MedicineStart: 03-17-2025 End: 01-28-3336SydrcsEboxsRosalinda Dubose MD Work Phone: Pulmonology [place] FHCComment on above: Refill RequestStart: 12-85-7241Eji-patient / Non-visitJamal Alvarez DO Work Phone: [facility] Work Phone: Start: 03-14-2025 End: 44-58-3550Euaciajqyb and management of inpatientJamal Alvarez DO Work Phone: [facility] [place] [facility] Work Phone: Start: 03-05-2025 End: 46-87-5567Taxhyo outpatient visit 25 minutesJamal Alvarez DO Work Phone: noms SWS IMComment on above:Bronchiectasis without complication (CMS/HCC) (Primary Dx); Edema, unspecified type; Recurrent UTI; Seizure (CMS/HCC); Traumatic brain injury with loss of consciousness, subsequent encounter; DISH (diffuse idiopathic skeletal hyperostosis); Hypothyroidism, unspecified type ([facility]); Combined hyperlipidemia ([facility]); Medicare annual wellness visit, subsequent; Advance care planningStart: 03-05-2025 End: 98-46-2299Hcmashc encounter procedureJamal Alvarez DO Work Phone: noms HealthcareStart: 03-05-2025 End: 35-20-7098ynrfbcxuurPVOEGUP A GARMANNot AvailableStart: 02-25-2025 End: 75-46-7609rylllwwilnZfyxmln Garman DO Work Phone: [facility] Work Phone: Start: 02-25-2025 End: 84-96-7624Wvwbyrdc ReferredJamal Alvarez DO Work Phone: [facility]-LAB Path Spec [facility] HospStart: 02-25-2025 End: 33-91-0280Zeqtbhocp Result EncounterJamal Alvarez DO Work Phone: noms External Department UnsolicitedStart: 02-25-2025 End: 91-69-7674Fukcfoorr Result EncounterJamal Alvarez DO Work Phone: noms External Department UnsolicitedStart: 02-25-2025 End: 24-08-3837Rkeyovsh Result EncounterJamal Alvarez DO Work Phone: noms External Department UnsolicitedStart: 02-06-2025 End: 56-06-5088Ogzgked encounter procedureJamal Alvarez DO Work Phone: [facility]-Lab [place] Work Phone: Start: 02-06-2025 End: 19-47-5307cqcccjlvtoBinsspp Garman DO Work Phone: [facility] Work Phone: Start: 02-06-2025 End: 91-67-8675Ksqrnnzh Result EncounterJamal Alvarez DO Work Phone: NO[facility] External Department UnsolicitedStart: 02-06-2025 End: 04-79-3782Qseoktel Result EncounterJamal Alvarez DO Work Phone: noms External Department UnsolicitedStart: 01-12-2025 End: 76-36-2003Qejdfuhmg encounterSohail William MD, PhD Work Phone: NeurologyComment on above:Medication QuestionStart: 12-24-2024 End: 82-46-5243epsthxbibxYWYPWtfdyrlc:[facility] [place] HospitalStart: 12-24-2024 End: 74-15-1298Uhvunpf encounter procedureSohail William MD, PhD Work Phone: NeurologyComment on above:Focal epilepsy with impairment of consciousness, intractable (HCC) (Primary Dx)Start: 12-24-2024 End: 13-39-9638Yzrmeljdrdgj consultation with Fernandez William MD, PhD Work Phone: NeurologyStart: 12-11-2024 End: 20-05-4691CbcbicKfuauRosalinda Dubose MD Work Phone: Pulmonology [place] FHomment on above: Refill RequestStart: 11-20-2024 End: 03-19-9297Lmvwgwo encounter procedureJamal Alvarez DO Work Phone: [facility]-Lab [place] Work Phone: Start: 11-20-2024 End: 43-75-7632xeqzyimxerLuqibpw Garman DO Work Phone: [facility] Work Phone: Start: 09-08-2024 End: 13-97-4962Xelghvkzh encounterIrina Dubose MD Work Phone: Pulmonary MedicineComment on above:Missed VVStart: 08-30-2024 End: 24-29-1918KewnadQqxcg D Southern MD Work Phone: Pul[facility]ology [facility] Hospitalomment on above: Refill RequestStart: 08-25-2024 End: 88-14-0315Mbvoei outpatient visit 25 minutesMicjitendra Lockhart NP Work Phone: noms SWS IMComment on above:Recurrent UTI (Primary Dx); Bronchiectasis without complication (CMS/HCC); [...] with loss of consciousness, subsequent encounter; Medication managementStart: 08-24-2024 End: 36-94-2198Uxlsqajzn Result EncounterJamal Alvarez DO Work Phone: noms External Department UnsolicitedStart: 08-24-2024 End: 57-07-2457Ywuwngwhu Result EncounterJamal Alvarez DO Work Phone: noms External Department UnsolicitedStart: 08-22-2024 End: 14-65-1548wsmseajnsuSmmstnLuis William MD, PhD Work Phone: NeurologyStart: 08-22-2024 End: 22-71-8244Kmwlvbc encounter procedureSohail William MD, PhD Work Phone: NeurologyComment on above:New med Lamictal effects Start: 08-13-2024 End: 65-94-4834mrnjiqintnICOUILI ALLAN GARMANFacility:[facility] Start: 08-13-2024 End: 01-99-6692Atbbalp encounter procedureSohail William MD, PhD Work Phone: NeurologyComment on above:Focal epilepsy with impairment of consciousness, intractable (HCC) (Primary Dx)Start: 08-13-2024 End: 36-65-0660Nmoryfcjmdyp consultation with patientSohail William MD, PhD Work Phone: NeurologyStart: 08-08-2024 End: 56-86-2268Zvhngpaul Result EncounterJamal Alvarez DO Work Phone: noms External Department UnsolicitedStart: 08-08-2024 End: 08-46-3340Jgncrvxvl Result EncounterJamal Alvarez DO Work Phone: noms External Department UnsolicitedStart: 07-30-2024 End: 42-88-8554Bewdleiwx encounterSohail William MD, PhD Work Phone: NeurologyComment on above:OrdersStart: 06-12-2024 End: 23-38-4403gzmdemkkxxFKYVRS [facility] AmbulatoryStart: 70-88-1344Hnepzagvn encounterIrina Dubose MD Work Phone: Pulmonary MedicineComment on above:Certifcate of Medical NecessityStart: 05-05-2024 End: 55-87-5100nvfpbqdbmrJgnyj D Southern MD Work Phone: Pulmonology [place] FHCComment on above: Bronchiectasis without complication (HCC) (Primary Dx); Yeast infectionStart: 05-05-2024 End: 43-57-1944Bgbgndfsdgnv consultation with Abbe Dubose MD Work Phone: Pulmonology [place] FHCStart: 04-30-2024 End: 40-82-7440qdokroixlzAztj George Work Phone: Pulmonary LabComment on above:SpirometryStart: 04-30-2024 End: 48-01-7025Hswnmua encounter procedurePulm Lab [place] Work Phone: Pulmonary LabStart: 04-22-2024 End: 56-32-9237Bpxmouv encounter procedureImabrant Juarez MD Work Phone: NeurosurgeryComment on above:Convulsions, unspecified convulsion type (HCC) (Primary Dx)Start: 04-22-2024 End: 55-62-4117xlvfxrjxbdZS Jamal Alvarez Work Phone: [facility] Work Phone: Start: 68-07-9347Aqmuuyadi encounterImabrant Juarez MD Work Phone: NeurologyComment on above:Future Appointment (NEW PT, [place], ANY (STOJIC? - PT PREF [place]))Start: 04-16-2024 End: 73-59-1612Btm-patient / Non-visitDO Jamal Alvarez Work Phone: [facility] Cardiology Work Phone: Start: 04-13-2024 End: 34-36-4566Llgqynnehj and management of inpatientDO Jamal Alvarez Work Phone: [facility] [place] [facility] Work Phone: Start: 03-10-2024 End: 68-46-0564siskqxzddhHCNWPL [facility] AmbulatoryStart: 03-10-2024 End: 23-93-7029Tozvtp consultation new/estab patient 61 Mark Lora MD Work Phone: [facility] HospitalComment on above:Shortness of breath; Hyperlipidemia, unspecified hyperlipidemia type; Traumatic brain injury, with unknown loss of consciousness status, sequela ([facility]-HCC); BMI 32.0-32.9,adult; Former smoker; History of traumatic brain injury; Cough, unspecified type; Diabetes mellitus type II, non insulin dependent (Multi); Dysphasia; Abnormal lung sounds; Bronchiectasis without complication (Multi); Medication course changedStart: 03-03-2024 End: 42-16-9520dhjptlvzenRxxow D Southern MD Work Phone: [facility]omment on above: Bronchiectasis without complication (HCC) (Primary Dx); Aspiration pneumonitis (HCC); Traumatic brain injury with loss of consciousness, sequela (HCC)Start: 03-03-2024 End: 13-08-1199Yqiwrxpwlhqx consultation with Abbe Dubose MD Work Phone: [facility]art: 02-26-2024 Telephone encounterIrina Dubose MD Work Phone: [facility] Hospitalomment on above: AppointmentReceived Outside Medical RecordsStart: 02-25-2024 End: 64-91-1623ajzwvcucwmKIAna Alvarez Work Phone: [facility] Work Phone: Start: 02-25-2024 End: 46-54-2254Zqdzpxb encounter procedureDO Jamal Alvarez Work Phone: [facility]-CT Scan [facility] [place] Work Phone: Start: 79-50-9454Omuae Anna Bourgeois [facility] Pulmonary MedicineComment on above:Home nebulizer orderStart: 02-22-2024 End: 64-85-6274pzsncinhmlPR Jamal Alvarez Work Phone: [facility] Work Phone: Start: 02-22-2024 End: 31-54-0677Avesfwrf ReferredDO Jamal Alvarez Work Phone: [facility] Work Phone: Start: 02-21-2024 End: 68-07-7150saoqzjknfbYH Jeffrey Garman Work Phone: [facility] Work Phone: Start: 02-21-2024 End: 25-46-5929Rhgbijtwti RecurringDO Jamal Alvarez Work Phone: [facility] Therapy Start: 41-06-8133Zrwghkbavl RecurringDO Jamal Alvarez Work Phone: [facility] Start: 02-21-2024 End: 66-30-9212wgdmunhwchPA Jeffrey Garman Work Phone: [facility] Work Phone: Start: 02-21-2024 End: 92-89-0471Turmvfn encounter procedureDO Jamal Alvarez Work Phone: [facility] Gastroenterology Work Phone: Start: 95-73-9674Nswznrdfmo CheikhDO Jamal Alvarez Work Phone: [facility] Start: 62-96-8306FzicuaTrinity Dubose MD Work Phone: Pulmonary MedicineComment on above:Bronchiectasis without complication (HCC) (Primary Dx)Start: 02-13-2024 End: 36-35-5304lhiruimbheAMAna Alvarez Work Phone: [facility] Work Phone: Start: 02-13-2024 End: 41-53-3862Zluybgp encounter procedureDO Jamal Alvarez Work Phone: [facility] Work Phone: Start: 61-13-8150Dobfodegvr Yudelka Alvarez Work Phone: [facility] [facility] Start: 01-23-2024 End: 04-70-7531ckyplaphorEIAna Alvarez Work Phone: [facility] Work Phone: Start: 01-23-2024 End: 48-92-6607Iarubai encounter procedureDO Jamal Alvarez Work Phone: [facility]-ay [facility] Work Phone: Start: 12-72-5156Rbmhdkhtd encounterIrina Dubose MD Work Phone: Pulmonary MedicineComment on above:Received Outside Medical RecordsStart: 81-41-1409Wolhvjieod Yudelka Alvarez Work Phone: [facility] [facility] Start: 12-28-2023 End: 59-84-0550Leedngg encounter procedureIrina Dubose MD Work Phone: Pulmonary MedicineComment on above:Bronchiectasis without complication (HCC) (Primary Dx); Aspiration pneumonitis (HCC); Traumatic brain injury with loss of consciousness, sequela (HCC)Start: 12-27-2023 End: 18-67-6859Lzspbbuelz hospital visit by physicianArrival Time Radiology Work Phone: Radiology Pet CTComment on above:Interstitial pulmonary disease (HCC) [J84.9]Start: 12-25-2023 End: 33-43-7615quskxtxfakGbtt George Work Phone: Pulmonary LabComment on above:SpirometryStart: 12-25-2023 End: 65-53-5791Fyyzphw encounter procedurePulm Lab [place] Work Phone: [facility] [place] FHCStart: 11-21-2023 End: 45-68-4962iqlzjrojvaVUAna Alvarez Work Phone: [facility] Work Phone: Start: 11-21-2023 End: 71-51-5810Vbiyehj encounter procedureDO Jamal Alvarez Work Phone: [facility]-XRay [facility] Work Phone: Start: 10-16-2023 End: 62-46-0726qhpgibfqsrGX Jamal Alvarez Work Phone: [facility] Work Phone: Start: 10-16-2023 End: 00-25-0181Hphznik encounter procedureDO Jamal Alvarez Work Phone: [facility]-Lab [place] Work Phone: Start: 02-10-2023 End: 28-42-1159erpzqnapxzEFVNCX DIAB .Facility:K5Fpeij: 12-26-2022 End: 48-61-4932uoizxulsikFJ Jeffrey Garman Work Phone: [facility] Work Phone: Start: 12-26-2022 End: 70-31-1911Vsuixmt encounter procedureDO Jamal Alvarez Work Phone: [facility] Eth-Rji-Gssjlpka Testing Work Phone: Start: 78-08-2867Wsnlvh OnlyEugene Julián Reynaga Work Phone: Hematology/OncologyComment on above:Dermatophytosis of nail (Primary Dx); Well controlled type 2 diabetes mellitus with neurological manifestations (HCC); Unspecified hypothyroidismDermatophytosis of nail (Primary Dx)Start: 04-05-2022 End: 37-25-4708toummifajgQGFiorella ALVAREZFacility:L7Tfbjy: 03-27-2022 End: 67-88-7339qkpnqbdxpvXG JEFFREY GARMANFacility:L5Ckowg: 99-17-9054Mtzxiy OnlyJoanne Bullard RNHematology/OncologyComment on above:Hypothyroidism, adult (Primary Dx); 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); Mixed hyperlipidemiaStart: 73-71-0226Ilvchc consultation new/estab patient 60 minJamal Campbell Antonio Work Phone: [phone]-Icfds [facility] DO Work Phone: Start: 81-66-5051Svhvmb outpatient new 45 minutes Jamal Campbell Antonio Work Phone: [phone]-Wuymh [facility] [facility] DO Work Phone: Patient encounter statusJamal Campbell Antonio Work Phone: [phone]-Xqviz [facility] DO Work Phone: Procedures DateProcedureProcedure DetailPerforming ClinicianStart: 74-64-4375Uug-scan xtr veins unilateral/limited studySummabdelrahman Herndon PA Work Phone: Start: 78-65-6195DOSZ PATH BX REPORTGeneric External Data ProviderStart: 58-40-8478PLZUGOO TEST/AUDIOGRAMLia Daniel AUD Work Phone: Start: 76-13-9389Jubmwi-up visitFollow Ady KESSLERCStart: 54-15-3419KNLQD XRAY CREJamal Alvarez DO Work Phone: Start: 08-54-6686FW of thorax with contrastJamal Alvarez DO Work Phone: Start: 19-25-5112Yqrvxeaj identified in Blood by CultureaJmal Alvarez DO Work Phone: Start: 54-38-1519OA angiography of thoraxJamal Alvarez DO Work Phone: Start: 98-79-4384MM of head without contrastJamal Alvarez DO Work Phone: Start: 88-75-7514Geegf chest X-rayJamal Alvarez DO Work Phone: Start: 02-71-3354Opvrdihwrjf Panel (PCR)Jamal Alvarez DO Work Phone: Start: 09-40-9283Hyuxv cultureJamal Alvarez DO Work Phone: Start: 92-80-8504Zpgdsao bacterial quanttative colony count urineJamal Alvarez DO Work Phone: start: 76-19-7783SENER CULTURE - FRMCJamal Alvarez DO Work Phone: Start: 84-27-3818Mittm cultureJamal Alvarez DO Work Phone: start: 52-75-0481Hyugnkol blood count with white cell differential, automatedJamal Alvarez DO Work Phone: Start: 84-10-7484Gddityruezumo metabolic panelJamal Alvarez DO Work Phone: start: 94-82-8313Qcfra panelJamal Alvarez DO Work Phone: Start: 91-25-0322Ejaai albumin quantitativeJamal Alvarez DO Work Phone: Start: 42-77-1662JCX HEMOGLOBIN L2ZOjmdpblJamal Alvarez DO Work Phone: Start: 24-69-2588HLU CBC WITH AUTO DIFFJamal Alvarez DO Work Phone: Start: 95-59-9523Vfozds w/vc expiratory miriam w/wo mxml vol vntCharu Dubose MD Work Phone: Start: 23-32-8344Ubqbkdqhdnlu myocardial perfusion stress studyDO Jamal Alvarez Work Phone: Start: 24-36-7653WEZ of headDO Jamal Alvarez Work Phone: Start: 85-75-8765HL pre/post mri xrayDO Jamal Alvarez Work Phone: Start: 55-20-9402YX angiography of headDO Jamal Alvarez Work Phone: Start: 74-24-7248UT angiography of neck vesselsDO Jamal Alvarez Work Phone: Start: 71-04-3933ET of head without contrastDO Jamal Alvarez Work Phone: Start: 25-47-4670Hvtav chest X-rayDO Jamal Alvarez Work Phone: Start: 91-19-3351OTX 12-LEADGEETHA LIStart: 17-84-4508Eia routine ecg w/least 12 lds w/i&rGeeshaun Lora MD Work Phone: Start: 10-81-6782XT angiography of thoraxDO Jamal Alvarez Work Phone: Start: 21-56-3752Rvdjqqkugek [Units/volume] in Serum or PlasmaJudit Lora MD Work Phone: Start: 00-99-1783Hqbeq 1996 panel - Serum or Plasma Judit Lora MD Work Phone: Start: 29-09-4957Hwkyq chest X-rayDO Jamal Alvarez Work Phone: Start: 78-88-0165Wq thorax w/o contrast materialJodidejan Anderson RNStart: 73-78-9243Eofurzqzz rspse spmtry pre&post-brncdilat admnLeilani Anderson RNStart: 30-43-4368Goymo chest X-rayDO Jamal Alvarez Work Phone: Implantation of sacral nerve stimulatorJamal Alvarez Work Phone: Total colonoscopyJamal Alvarez Work Phone: Comment on above:01/30/2007; Plan of Treatment DateCare ActivityDetailAuthorStart: 18-08-1134Mpwmkhjq ScreeningDiabetes ScreeningRobesonia ClinicStart: 54-47-0658Kjszsuba ScreeningDiabetes Screening [facility]ertart: 91-37-2228Hmlbydwk screeningDiabetes: Retinopathy ScreeningST. [facility] HealthcareStart: 24-76-3514Mblqtkjj ScreeningDiabetes Screening [facility] Centertart: 03-11-2026 End: 41-02-8562Dklsjqo encounter vagvydhyp90/07/2026 4:00 PM EDT [facility] [address] [place] [address] QORR [place] [facility] MedicineStart: 05-01-2026Medicare Annual Wellness (AWV)Medicare Annual Wellness (AWV)[facility] HealthcareStart: 02-12-2026 Glaucoma screeningDiabetes: Retinopathy ScreeningST. [facility]'S [facility] HealthcareStart: 40-79-9809Ekvqt screening for proteinDiabetes: Urine Protein ScreeningST. MARK'S [facility]ITAL HealthcareStart: 12-22-2025 End: 86-48-9295FCX W Auto Differential panel - BloodCBC auto differential Lab Routine Acquired hypothyroidism Expected: 12/22/2025 (Approximate), Expires: 06/20/2026NOOK HealthcareComment on above:Expected: 12/22/2025 (Approximate), Expires: 06/20/2026Start: 12-22-2025 End: 10-15-7163Tlbtrexbpgjjr metabolic 2000 panel - Serum or PlasmaComprehensive metabolic panel Lab Routine Prediabetes 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 (HCC) Seizure disorder (HCC) Expected: 12/22/2025 (Approximate),Expires: 06/20/2026[facility] HealthcareComment on above:Expected: 12/22/2025 (Approximate), Expires: 06/20/2026Start: 12-22-2025 End: 87-65-9205Rqtcqhwagd a1c with eagHemoglobin a1c with eag Lab Routine Prediabetes Expected: 12/22/2025 (Approximate), Expires: 06/20/2026[facility] Healthcare Work Phone: Comment on above:Expected: 12/22/2025 (Approximate), Expires: 06/20/2026Start: 12-22-2025 End: 62-32-5016Xfrug 1996 panel - Serum or PlasmaLipid panel Lab Routine Pure hypercholesterolemia Expected: 12/22/2025 (Approximate), Expires: 06/20/2026[facility] HealthcareComment on above:Expected: 12/22/2025 (Approximate), Expires: 06/20/2026Start: 12-22-2025 End: 53-90-6434Nguyiyjdt [Mass/volume] in Serum or PlasmaMagnesium Lab Routine Seizure disorder (HCC) Expected: 12/22/2025 (Approximate), Expires: 06/20/2026 [facility] HealthcareComment on above:Expected: 12/22/2025 (Approximate), Expires: 06/20/2026Start: 12-22-2025 End: 48-08-4065Ekefogvwtyy [Units/volume] in Serum or PlasmaTSH Lab Routine Acquired hypothyroidism Expected: 12/22/2025 (Approximate), Expires: 06/20/2026 [facility] HealthcareComment on above:Expected: 12/22/2025 (Approximate), Expires: 06/20/2026Start: 10-27-2025 End: 52-71-0357Xmridctoqcje / ancillary services baufeiockt11/23/2025 3:30 PM EST Ancillary Procedure [facility] [facility] [address] [place] [address] [facility] [place] ImagingStart: 11-93-5234Cxbjtfjmr for osteoporosisBone Density [facility] CenterStart: 09-10-2025 End: 04-16-8138Nczikow encounter procedureNOMS S[facility] IMStart: 09-01-2025 End: 15-96-2413Yuacjay encounter csjtlogys29/28/2025 2:45 PM EDT Office Visit [facility] [place] [facility] [address] [place] [address] Everton Reynaga DPM [address] [place] [address] [facility] [place] PodiatryStart: 08-10-2025 End: 56-75-1157Voxyufr encounter yjfvdsqys37/06/2025 2:30 PM EDT Office Visit [facility] [address] [place] [address] Patricia Barry MD [address] [facility] [address] [place] [address] [facility] CI ENTStart: 08-06-2025 End: 27-30-3741Odtxtkl encounter obomszpos98/02/2025 3:20 PM EDT Office Visit General Surgery [address] [place] [address] Margo Castellon MD [address] [place] [address] 2 wk s/p Lap montana poss open poss gramsGeneral SurgeryComment on above:2 wk s/p Lap montana poss open poss gramsStart: 08-05-2025 End: 86-72-8083Mzlrkycn Sqffumj2008/05/2025 3:00 PM EDT Clinical Support [facility] [address] [facility] [address] [place] [address] Tasia Casillas, [facility] [address] [place] [address] [facility] AUDStart: 65-82-6834Bfronztz ScreeningDiabetes ScreeningUniversity Hospitals St. John Medical Centertart: 07-24-2025 End: 81-84-9925Xufavvidh to same day surgery krigkq0207/24/2025 12:00 PM EDT - 07/24/2025 2:05 PM EDT Surgery [facility] Surgery [address] [place] [address] Margo Castellon MD [address] [place] [address] LAPAROSCOPIC CHOLECYSTECTOMY POSSIBLE [facility] SurgeryComment on above:LAPAROSCOPIC CHOLECYSTECTOMY POSSIBLE OPENStart: 07-24-2025 End: 55-08-2665Qlncvalmuno surg cholecystectomyLAPAROSCOPIC CHOLECYSTECTOMY POSSIBLE OPEN Symptomatic cholelithiasis 07/24/2025 12:00 PM EDTAV ORStart: 55-41-8602Vmqnlzkivk hospital visit by pybbnejip78/19/2025 12:00 PM EDT Hospital Encounter [facility] Surgery [address] [place] [address] Margo Castellon MD [address] [facility] [place] [address] Symptomatic cholelithiasis [K80.20][facility] SurgeryComment on above:Symptomatic cholelithiasis [K80.20]Start: 07-14-2025 End: 88-93-6979Mtjqmkl encounter tkmzzpvyw75/09/2025 3:00 PM EDT Office Visit Audiology [address] [address] Dee Pollard, AUD [address] [place], [place] [address] AudioAudiologyComment on above:AudioStart: 07-13-2025 End: 60-81-6721Rwbafts encounter kkcnimofn44/08/2025 7:00 PM EDT PAT Pre Anesthesia [address] [place] [address] 1, Pacc Rej [address] [place] [address] Lap [place]ana poss open poss grams gen LuPre AnesthesiaComment on above:Lap montana poss open poss grams gen LuStart: 07-10-2025 End: 00-72-0435Bqblqpy encounter procedureAudiologyComment on above:60 minute hearing testpossible tubesStart: 89-27-6803Aaatncgqs vaccinationInfluenza Vaccine (#1)[facility] HealthcareStart: 06-25-2025 End: 77-37-6765Vhduzbq encounter procedureNOMS SWS IMStart: 06-24-2025 End: 02-29-5526Umcrsd-up ayszplbeg76/20/2025 3:00 PM EDT [facility] [address] [place] [address] Sohail William MD, PhD [address] [place] [address] 6 months follow up-Focal epilepsyNeurologyComment on above:6 months follow up-Focal epilepsyStart: 06-11-2025 End: 13-00-5366Tqfdopi encounter fiiiizzjt93/07/2025 3:30 PM EDT Office Visit [facility] [address] [place] [address] [facility] IMStart: 06-02-2025 End: 61-32-1896Ptbjkgz encounter zrvrgmcte02/29/2025 3:25 PM EDT Office Visit Otolaryngology [address] [place] [address] Quintin Sloan PA-C [address] [place] [address] Fluid in her ears for a couple months, Quintin montilladOtolaryngologyComment on above:Fluid in her ears for a couple months, Quintin mcdonnell'dStart: 05-29-2025 End: 87-63-9273Fdkht metabolic 1998 panel - Serum or PlasmaBasic metabolic panel Lab Routine Generalized abdominal pain Diarrhea, unspecified type Nausea and v omiting, unspecified vomiting type Other specified intestinal obstruction, unspecified whether partial or complete (HCC) Diverticulosis Expected: 05/29/2025 (Approximate), Expires: 06/27/2025NOOK HealthcareComment on above: Expected: 05/29/2025 (Approximate), Expires: 06/27/2025Start: 05-29-2025 End: 87-18-1592OOF W Auto Differential panel - BloodCBC and differential Lab Routine Generalized abdominal pain Diarrhea, unspecified type Nausea and vo miting, unspecified vomiting type Other specified intestinal obstruction, unspecified whether partial or complete (HCC) Diverticulosis Expected: 05/29/2025 (Approximate), Expires: 06/27/2025[facility] HealthcareComment on above: Expected: 05/29/2025 (Approximate), Expires: 06/27/2025Start: 05-29-2025 End: 62-88-1396Gqbusra function 2000 panel - Serum or PlasmaHepatic function panel Lab Routine Generalized abdominal pain Diarrhea, unspecified type Nausea andvomiting, unspecified vomiting type Other specified intestinal obstruction, unspecified whether partial or complete (HCC) Diverticulosis Expected: 05/29/2025 (Approximate), Expires: 06/27/2025N[facility] HealthcareComment on above: Expected: 05/29/2025 (Approximate), Expires: 06/27/2025Start: 05-29-2025 End: 53-27-9104Kpriqe [Enzymatic activity/volume] in Serum or PlasmaLipase Lab Routine Generalized abdominal pain Diarrhea, unspecified type Nausea and vomiting, unspecified vomiting type Other specified intestinal obstruction, unspecified whether partial or complete(HCC) Diverticulosis Expected: 05/29/2025 (Approximate), Expires: 06/27/2025[facility] HealthcareComment on above:Expected: 05/29/2025 (Approximate), Expires: 06/27/2025Start: 05-29-2025 End: 60-18-6458Bfudckocnq complete panel - UrineUrinalysis with microscopic Lab Routine Generalized abdominal pain Diarrhea, unspecified type Nausea and vomiting, unspecified vomiting type Other specified intestinal obstruction, unspecified whether partial or complete (HCC) Diverticulosis Expected: 05/29/2025 (Approximate), Expires: 06/27/2025[facility] HealthcareComment on above: Expected: 05/29/2025 (Approximate), Expires: 06/27/2025Start: 05-29-2025 End: 41-78-3776Smuoalwsbrdp / ancillary services ifpdsrxuip51/25/2025 12:15 PM EDT Ancillary Procedure [facility] [address] [place] [address] [facility] CTStart: 05-28-2025 End: 84-16-1426LK Abdomen and Pelvis WO and W contrast IVCT abdomen pelvis w and wo IV contrast Imaging Routine Generalized abdominal pain Diarrhea, unspecified type Nausea and vomiting, unspecified vomiting type Other specified intestinal obstruction, unspecified whether partial or complete (HCC) Diverticulosis Expected: 05/28/2025 (Approximate), Expires: 10/24/2025[facility] Work Phone: Comment on above:Expected: 05/28/2025 (Approximate), Expires: 08/28/2025Start: 05-22-2025 End: 94-99-8343Coxkckg encounter vkbquejqm66/18/2025 1:00 PM EDT Office Visit [facility] [address] [place] [address] [facility] IMStart: 05-20-2025 End: 89-12-0356Aucigxs encounter mwsvpnsse79/16/2025 2:40 PM EDT Office Visit [facility] [address] [facility] [address] [place] [address] Patricia Barry MD [address] [facility] [address] [place] [address] ArrivedNOMS CI ENTComment on above:ArrivedStart: 45-48-2649Fgnepfbgsf A1c measurementDiabetes: Hemoglobin K2HRXFEMercy McCune-Brooks Hospital Start: 36-40-3465Jyicyyreb[address] Hospitaltart: 95-17-3650QbmrjqwwlWilson [address] Hospitaltart: 51-62-2506Dlaneqzi identified in Blood by Culture Blood CultureWilson Street Hospitaltart: 19-37-5535Haeucmhaj culture of sputumWilson Street Hospitaltart: 29-20-5113Zaqajxyn therapy procedureWilson Street Hospitaltart: 36-62-6754Quipzesp to cardiologistWilson Street Hospitaltart: 06-97-0473Xbunnrwq to occupational therapistWilson Street Hospitaltart: 03-14-2025 End: 24-90-1648FkgurvhsrWilson [address] Hospitaltart: 16-15-5534Dqpufief admissionWilson [address] Hospitaltart: 84-63-1400CkpmpgdroWilson [address] Hospitaltart: 98-64-5844DJ angiography of thoraxCT angio chest PE protocolWilson Street Hospitaltart: 83-37-7931YT ChestWilson Street Hospitaltart: 03-13-2025 End: 49-16-0919Inmpi cultureWilson Street Hospitaltart: 03-13-2025 Bacteria identified in Urine by CultureUrine [facility] Hospitaltart: 03-05-2025 End: 61-55-9347Getunat encounter nagxalrks03/01/2025 3:00 PM EDT Office Visit [facility] IM [address] [place] [address] Jamal Alvarez, DO [address] [place] [address] [facility] IMStart: 53-72-2519GyofcSelect Medical [facility]Health Rehabilitation Hospital - Dublintart: 23-60-2484Yzcldlpi identified in Urine by [facility] Work Phone: Start: 02-23-2025 End: 53-72-5366Srbyzwp encounter zrtmmyayo35/21/2025 3:15 PM EDT Office Visit [facility] IM [address] [place] [address] Jamal Alvarez, DO [address] [place] [address] [facility] IMStart: 02-23-2025 End: 52-20-2297KAI panel - Blood by Automated countCBC Lab Routine Medication management Expected: 02/23/2025, Expires: 08/25/2025Mercy McCune-Brooks HospitalComment on above:Expected: 02/23/2025, Expires: 08/25/2025Start: 02-23-2025 End: 02-03-1124Slbmekiobmxfu metabolic 2000 panel - Serum or PlasmaComprehensive metabolic panel Lab Routine 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) Expected: 02/23/2025, Expires: 08/25/2025[facility] Healthcare Work Phone: Comment on above:Expected: 02/23/2025, Expires: 08/25/2025Start: 02-23-2025 End: 45-04-3486Loqoiygqlq a1c with eagHemoglobin a1c with eag Lab Routine 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) Expected: 02/23/2025, Expires: 08/25/2025[facility] HealthcareComment on above:Expected: 02/23/2025, Expires: 08/25/2025Start: 02-23-2025 End: 20-17-0302Ewzgh 1996 panel - Serum or PlasmaLipid panel Lab Routine Combined hyperlipidemia (CMS/HCC) Expected: 02/23/2025, Expires: 08/25/2025[facility] HealthcareComment on above:Expected: 02/23/2025, Expires: 08/25/2025Start: 02-23-2025 End: 33-57-3247Oztccepavfs [Units/volume] in Serum or PlasmaTSH Lab Routine Hypothyroidism, unspecified type (CMS/HCC) Expected: 02/23/2025, Expires: 08/25/2025[facility] HealthcareComment on above:Expected: 02/23/2025, Expires: 08/25/2025Start: 04-19-2025Medicare Annual Wellness (AWV)Medicare Annual Wellness (AWV)[facility] HealthcareStart: 90-55-4971Vsvhovo stimulating hormone measurementTSHillcrest Hospital Henryetta – HenryettaStart: 45-86-4349Fpbsh screening for proteinDiabetes: Urine Protein ScreeningST. MARK'S HOSPITAL HealthcareStart: 75-63-9502Pzitm panelLipid PanelClinton Memorial HospitalStart: 79-15-5185QfpwdwzmfWilson [address] Hospitaltart: 40-33-4018LCJZLBJR SCREEN DIABETES SCREENUniversity Hospitals St. John Medical Centertart: 12-24-2024 End: 33-34-6525Jnqvpe-up ioxeetfdh79/19/2025 3:00 PM [facility] Neurology [address] [place] [address] Sohail William MD, PhD [address] [place] [address] Epilepsi follow upNeurologyComment on above:Epilepsi follow upStart: 25-23-7571Owtwugwcza A1c measurementDiabetes: Hemoglobin G6OJZWQ HealthcareStart: 11-14-2024 End: 61-69-9796Ejachyv encounter idsswrcrs04/10/2025 11:40 AM EST [facility] Neurology [address] [place] [address] Sohail William MD, PhD [address] [place] [address] 3 month virtual visitNeurologyComment on above:3 month virtual visitStart: 95-41-0423Rykyjgb Directive DiscussionAdvance Directive DiscussionUniversity Hospitals St. John Medical Centertart: 01-01-2025Medicare Advantage Annual Wellness VisitMediHenry Ford [facility] Annual Wellness VisitUniversity Hospitals St. John Medical Centertart: 10-08-2024 End: 29-79-1273Njjduux encounter zgafbtyxx86/04/2024 2:00 PM EST [facility] Neurology [address] [place] [address] Sohail William MD, PhD [address] [place] [address] New ConsultNeurologyComment on above:New ConsultStart: 09-08-2024 End: 99-00-3200ywsyegneka09/04/2024 12:30 PM EST [facility] Pulmonology [facility] [address] [place] [address] Irina Dubose MD [address] [place] [address] MYC VVPulmonology [facility] HospitalCComment on above:MYC VVStart: 08-25-2024 End: 92-13-4309Hcuswws encounter procedureNOMS SWS IMComment on above:Pulmonary hypertension, unspecified (CMS/HCC); Atherosclerosis of aorta (CMS/HCC)Start: 51-24-2966Qiwuz-19 Vaccine ()Covid-19 Vaccine ()[facility] Centertart: 07-06-2024 Covid-19 Vaccine ()Covid-19 Vaccine () [facility] Centertart: 26-63-4786Hxbrrkbux vaccinationInfluenza Vaccine (#1) [facility] Centertart: 06-12-2024 End: 17-71-7425Sxvklok encounter einnndyrq92/08/2024 2:45 PM EDT Office Visit [facility] [address] [facility] [address] [place] [address] Judit Lora MD [address] [facility] [address] [place] [address] [facility] HospitalStart: 38-90-8901Owkcjpdbni A1c measurement Diabetes: Hemoglobin X2MALAXMercy McCune-Brooks HospitalStart: 05-05-2024 End: 45-45-3357cafbabbodb25/01/2024 3:30 PM EDT [facility] Pulmonology [facility] [address] [place] [address] Irina Dubose MD [address] [place] [address] MYC VVPulmonology [facility] HospitalCComment on above:MYC VVStart: 05-05-2024 End: 68-01-9877Xahzvji encounter asnxurmyf06/01/2024 3:30 PM EDT Office Visit Pulmonology [facility] [address] [place] [address] Irina Dubose MD [address] [place] [address] Est pt scheduled per Dr. Dubose 4mo fu pft'sPulmonology [facility] HospitalCComment on above:Est pt scheduled per Dr. Dubose 4mo fu pft'sStart: 04-30-2024 End: 72-98-0433fwxbvlaajeKmnfwdobb LabComment on above:Est pt scheduled per Dr. Dubose 4mo fu pft'sLinked-APStart: 04-16-2024 End: 05-10-1532Xavtlyv encounter ljeccsmvq00/12/2024 12:30 PM EDT Appointment [facility] [address] [place] [address] HY [facility] HospitalStart: 04-16-2024 End: 55-24-5477Jztvzdwdc[address] Hospitaltart: 42-50-8639VdouuhcrgWilson [address] Hospitaltart: 04-14-2024 End: 64-38-1261WjknymommWilson [address] Hospitaltart: 84-25-9952ApkrisgsyWilson [address] Hospitaltart: 60-34-8934Ddknvyhm to neurologistWilson Street Hospitaltart: 82-10-9604Framgqzs to cardiologistWilson Street Hospitaltart: 33-05-8023Wxmjkaky admissionWilson Street Hospitaltart: 27-85-0951Wmlvkybei[address] Hospitaltart: 70-47-6821Tbywmrphxfvq consultation with patientWilson Street Hospitaltart: 75-83-7935ShxsswgowWilson Street Hospitaltart: 03-17-2024 End: 38-36-6922Qtkmh metabolic 2000 panel - Serum or PlasmaBasic Metabolic Panel Lab Routine Shortness of breath Medication course changed Expected: 03/17/2024 (Approximate), Expires: 03/10/2025UnOhio [facility] Surgical Hospital Work Phone: Comment on above:Expected: 03/17/2024 (Approximate), Expires: 03/10/2025Start: 20-34-6982RtqgpcvezouhdmknqqbzvrvcueZE EGD (Not Applicable)[address] Hospitaltart: 03-10-2024 End: 91-60-9332Dstmcsfpger peptide B [Mass/volume] in BloodB-Type Natriuretic Peptide Lab Routine Shortness of breath Cough, unspecified type Abnormal lung sounds Expected: 03/10/2024 (Approximate), Expires: 03/10/2025[facility] Work Phone: Comment on above:Expected: 03/10/2024 (Approximate), Expires: 03/10/2025Start: 03-10-2024 End: 03-03-1520TQ Heart TransthoracicTransthoracic Echo Complete Echocardiography Routine Shortness of breath Cough, unspecified type Abnormal lung sounds Expected: 03/10/2024 (Approximate), Expires: 03/10/2026[facility] Service Area Work Phone: Comment on above:Expected: 03/10/2024 (Approximate), Expires: 03/10/2026Start: 03-03-2024 End: 05-44-5535Wfklbe-up ajihzgbji88/29/2024 12:30 PM EDT [facility] Pulmonology [facility] [address] [place] [address] Irina Dubose MD [address] [place] [address] follow upPulmonology [facility]acon[facility] Hospitalomment on above:follow upStart: 28-29-5573Rbptd screening for proteinDiabetes: Urine Protein ScreeningMercy McCune-Brooks HospitalStart: 59-69-1020Ytcrriv Directive Discussion Advance Directive DiscussionUniversity Hospitals St. John Medical Centertart: 97-34-3371Agatnbpard Health ScreeningBehavioral Health ScreeningUniversity Hospitals St. John Medical Centertart: 41-90-8547Ivhamfpoju AssessmentDepression AssessmentUniversity Hospitals St. John Medical Centertart: 29-80-0230QYVXB-19 Vaccine ( season)COVID-19 Vaccine ()[facility] Memorial HospitalStcoffey: 85-79-8729Shthn-19 Vaccine ( season)Covid-19 Vaccine ()[facility] Centertart: 45-63-0374Ocvmqmfkme A1c measurementDiabetes: Hemoglobin G5KXxtquuuejiOhio Valley Surgical HospitalStart: 07-26-2022 End: 04-18-4371BKM W Auto Differential panel - BloodCBC + DIFF Lab Routine Well controlled type 2 diabetes mellitus with neurological manifestations (HCC) Unspecified hypothyroidism Expected: 07/26/2022, Expires: 09/25/2022[facility] Work Phone: Comment on above:Expected: 07/26/2022, Expires: 09/25/2022tart: 07-26-2022 End: 85-69-8755Lfbfugrucrarj metabolic 2000 panel - Serum or PlasmaCOMP METABOLIC PANEL Lab Routine Well controlled type 2 diabetes mellitus with neurological manifestations (HCC) Unspecified hypothyroidism Expected: 07/26/2022, Expires: 09/25/2022[facility] Work Phone: Comment on above:Expected: 07/26/2022, Expires: 09/25/2022tart: 07-26-2022 End: 58-67-2050Mdohhna function 1999 panel - Serum or PlasmaHEPATIC FUNCTION PNL Lab Routine Dermatophytosis of nail Expected: 07/26/2022, Expires: 09/25/2022 [facility] Work Phone: Comment on above:Expected: 07/26/2022, Expires: 09/25/2022tart: 07-26-2022 End: 09-20-9368Bxazo 1996 panel - Serum or PlasmaLIPID PANEL BASIC Lab Routine Well controlled type 2 diabetes mellitus with neurological manifestations (HCC) Unspecified hypothyroidism Expected: 07/26/2022, Expires: [address] [place] [address] Work Phone: Comment on above:Expected: 07/26/2022, Expires: 09/25/2022tart: 07-26-2022 End: 36-82-8410Lxgjfcrgjhe [Units/volume] in Serum or PlasmaTSH BLD Lab Routine Well controlled type 2 diabetes mellitus with neurological manifestations (HCC) Unspecified hypothyroidism Expected: 07/26/2022, Expires: [address] [place] [address] Work Phone: Comment on above:Expected: 07/26/2022, Expires: 09/25/2022tart: 80-55-4390Nqajptnvi vaccinationINFLUENZA (#1)[facility] Start: 02-03-2022 End: 72-02-0746QLYWUNB/CREAT RATIO RND [facility] Work Phone: Comoqpn on above:Expected: 02/03/2022, Expires: 04/05/2022tart: 02-03-2022 End: 64-06-0260AJPDM PANEL [facility] Work Phone: Comment on above:Expected: 02/03/2022, Expires: 04/05/2022tart: 02-03-2022 End: 24-37-7416Pnllfqvqxtt [Units/volume] in Serum or PlasmaDayton Va Medical Center Work Phone: Comment on above:Expected: 02/03/2022, Expires: 04/05/2022tart: 02-03-2022 End: 80-59-3937Tycekcunzh complete panel - UrineDayton Va Medical Center Work Phone: Comment on above:Expected: 02/03/2022, Expires: 04/05/2022tart: 01-71-1813INRVYVP DIRECTIVE DISCUSSIONADVANCE DIRECTIVE DISCUSSIONUniversity Hospitals St. John Medical Centertart: 88-59-0004EXOIL-19 VACCINE (4 - Booster for Moderna series)COVID-19 VACCINE (4 - Booster for Moderna series)[facility] Start: 14-53-3941Ocbzdqrmpnaz Vaccine: 65+ (2 of 2 - PCV)Pneumococcal Vaccine: 65+ (2 of 2 - PCV)[facility]: 55-66-4121CZR Vaccine (1 - 1-dose 75+ series)RSV Vaccine (1 - 1-dose 75+ series)[facility]: 25-02-3214IBOV DENSITYBONE DENSITYUniversity Hospitals St. John Medical Centertart: 43-55-7555JFFUYGTIMWTC: 65+ (1 - PCV) PNEUMOCOCCAL: 65+ (1 - PCV)[facility]: 27-88-7307EONQSGKGF AGE 65 AND OVER WITH 5YR LOOKBACK (#1)PNEUMOVAX AGE 65 AND OVER WITH 5YR LOOKBACK (#1) [facility]: 48-79-5284JKD patients and/or patients aged 60+ years (1 - 1-dose 60+ series)RSV patients and/or patients aged 60+ years (1 - 1-dose 60+ series)[facility]Start: 2006 RSV Vaccine (1 - 1-dose 60+ series)RSV Vaccine (1 - 1-dose 60+ series)[facility]: 82-74-5674RSFZDRWZ VACCINE (1 of 2)SHINGRIX VACCINE (1 of 2) [facility]: 76-16-0387YLsZ/Tdap/Td Vaccines (1 - Tdap)DTaP/Tdap/Td Vaccines (1 - Tdap)[facility] HospitalStcoffey: 43-27-1842Oqdwj microalbumin profileMemorial Health Systemrt: 04-69-5702Lxcvq screening for protein Diabetes: Urine Protein ScreeningTogus [facility]: 72-04-3867Axvqdoo ScreeningAnxiety ScreeningUniversity Hospitals St. John Medical Centertart: 1964 Depression ScreeningDepression ScreeningMemorial Health Systemrt: 1964 HEPATITIS C SCREENINGHEPATITIS C SCREENINGMemorial Health Systemrt: 1964 Hepatitis C screeningHepatitis C ScreeningMemorial Health Systemrt: 78-72-6445Rdpxp depression screening assessmentDEPRESSION SCREENINGMemorial Health Systemrt: 67-20-7844Xsmarxsy foot examinationDiabetes: Foot ExamUnCleveland Clinic [facility]: 04-50-7361Fpimilyp screeningDiabetes: Retinopathy Screening [facility]: 1946Medicare Annual Wellness (AWV) Medicare Annual Wellness (AWV)[facility] 1946Medicare Annual Wellness VisitMedicare Annual Wellness Visit (AWV)[facility] HospitalEC COMPLETEECG COMPLETE ECG Routine Pre-op evaluation Ordered: 07/13/2025[facility] Work Phone: Comment on above:Ordered: 07/13/2025 End: 81-50-5142QWQW EEG LONGEPIL EEG LONG NEUROLOGY Routine Convulsions, unspecified convulsion type (HCC) 1 Occurrences starting 04/22/[address] [place] [address] Work Phone: Comment on above:1 Occurrences starting 04/22/2024 until 04/22/2025 End: 82-65-5362IEBR EEG LONGEPIL EEG LONG NEUROLOGY Routine Convulsions, unspecified convulsion type (HCC) 1 Occurrences starting 07/31/[address] [place] [address] Work Phone: Comment on above:1 Occurrences starting 07/31/2024 until 07/30/2025Glucose measurement estimated from glycated hemoglobinOhiohealth Mansfield HospitalHemoglobin A1c/Hemoglobin.total in BloodOhiohealth Mansfield Hospital End: 09-43-5592PJXS DIFFUSION CAPACITY (DLCO)LUNG DIFFUSION CAPACITY (DLCO) PFT Routine Bronchiectasis without complication (HCC) 1 Occurrences starting 12/28/2023 until 5CMer[facility] Work Phone: Comment on above:1 Occurrences starting 12/28/2023 until 01/26/2025LUNG DIFFUSION CAPACITY (DLCO)LUNG DIFFUSION CAPACITY (DLCO) PFT Routine Bronchiectasis without complication (HCC) 04/30/2024 12:59 PM EDT [facility] Work Phone: Patient EducationOhiohealth Nelsonville [facility] Work Phone: Patient referralOhiohealth Nelsonville Health Center Ctr Work Phone: End: 94-28-9617YKZFNENBBN BASELINE ONLYSPIROMETRY BASELINE ONLY PFT Routine Bronchiectasis without complication (HCC) 1 Occurrences starting 12/28/[address] [place] [address] Work Phone: Comment on above:1 Occurrences starting 12/28/2023 until 01/26/2025SPIROMETRY BASELINE ONLYSPIROMETRY BASELINE ONLY PFT Routine Bronchiectasis without complication (HCC) 04/30/2024 12:59 PM EDTCMercy Health Clermont Hospital Work Phone: [facility] Lab Routine 02/25/2025 3:30 PM [facility] Work Phone: URINE MICROALBUMIN B/OURINE MICROALBUMIN B/O Lab Routine Hypothyroidism, adult 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) Mixed hyperlipidemia Ordered: 2CMer[facility] Work Phone: Comment on above:Ordered: 02/03/2022XR Chest 2 Views [facility] HospitalXR Lumbar spine 2 or 3 ViewsXR lumbar spine 2 or 3 views Imaging Routine Lumbar spine pain 06/25/2025 3:37 PM EDTMercy McCune-Brooks HospitalXR Thoracic spine 2 ViewsXR thoracic spine 2 views Imaging Routine Chronic midline thoracic back pain 06/25/2025 3:37 PM [facility] Immunizations Immunization DateImmunizationNotesCare QpihgkxjZuqkuqqa65-41-2806Rnacknno trivalent influenza vaccine, adjuvanted, preservative freeMichele Simon CHEESE CUTTER Work Phone: [facility] HospitalSklgzzuzri72-07-5748iauszxesd virus vaccine, unspecified formulationJamal Alvarez DO Work Phone: [facility] HospitalUleitfwvit88-18-5841dlqlmbinr (aIIV4) vaccine, age 65+ yr, quadrivalent, PF (FLUAD QUAD)Irina Dubose MD Work Phone: [facility] [place]Gyvnpj97-34-6806odzgedxkl virus vaccine, unspecified formulationIrina Dubose MD Work Phone: [facility] OhioUkzxsa04-61-1256YHULF-15 mRNA Bivalent Booster (Moderna)DO Jamal Alvarez Work Phone: [facility]10-13-2022influenza, high dose seasonal, preservative-freeIrina Dubose MD Work Phone: [facility] OhioOvehzz94-64-0336pelxxb vaccine recombinant Irina Dubose MD Work Phone: [facility] OhioVjdwbf86-17-6104dgarhb vaccine recombinant Irina Dubose MD Work Phone: [facility] OhioVgqisc95-14-8399wvixlvtsd, high dose seasonal, preservative-freeJamal Alvarez Work Phone: [facility] OhioOpsshn09-52-6081Qmgnvkp COVID-19 Vaccine 100 MCG/0.5ML Intramuscular SuspensionJamal Alvarez Work Phone: [facility]04-01-2021Moderna COVID-19 Vaccine 100 MCG/0.5ML Intramuscular SuspensionJamal Alvarez Work Phone: [facility]03-04-2021Moderna COVID-19 Vaccine 100 MCG/0.5ML Intramuscular SuspensionJamal Campbell Antonio Work Phone: [facility]09-30-2020 pneumococcal polysaccharide vaccine, 23 valentJamal Mylesman Work Phone: [facility] OhioVquycl11-60-2244IX67 Carli Dubose MD Work Phone: [facility] OhioDhjhlr83-67-9822Nehsqmrb trivalent influenza vaccine, adjuvanted, preservative freeJamal Campbell Antonio Work Phone: [facility] OhioWweqym14-98-1715PK58 Carli Dubose MD Work Phone: [facility] OhioVxojct45-63-7925Clvcuvfb trivalent influenza vaccine, adjuvanted, preservative freeJamal Campbell Antonio Work Phone: [facility] OhioZsdxcz00-52-4435OS06 Carli Dubose MD Work Phone: [facility] OhioCufryo90-32-3416Sjvapumh trivalent influenza vaccine, adjuvanted, preservative freeWilnertaya Alvarez Work Phone: [facility] OhioRjknme01-25-9518xgvhdajzo, injectable, quadrivalent, preservative freeJamal Campbell Antonio Work Phone: [facility] OhioWobrjg93-80-8877vpflkqiob, high dose seasonal, preservative-freeJamal Campbell Antonio Work Phone: [facility] OhioLekwlv69-30-1479mfxwkofrnqlg conjugate vaccine, 13 Giancarlo Lora MD Work Phone: [facility] Work Phone: Payers DatePayer CategoryPayerPolicy [id number] (Managed Care) [id number] 2022MedicareAETNA MEDICARE AETNA MEDICARE PPO [id number] 2021-Present [phone] [address] [place] [address] [id number] [id number] 1960Medicare [id number] Health [id number] 2.840.1.637880.3.57[id number] 2.840.1.712232.3.57[id number] 2.840.1.051847.3.57[id number] 2.840.1.481235.3.57[id number] 2.840.1.292662.3.57[id number] 2.840.1.200483.3.57[id number] 2.16840.1.399263.3.57[id number] 2.16840.1.501795.3.57[id number] 2.16840.1.454948.3.57[id number] 2.840.1.012854.3.57[id number] 2.0.1.317274.3.57[id number] 2..0.1.969161.3.579.2.490539-48-2105Gnrbshu38843977 2.0.1.156584.3.57[id number] 2..1.948874.3.57[id number] 2..1.567864.3.57[id number] 2..1.447976.3.57[id number] 2..1.427[id number] Health XywdzbthmXXWGE3MX [id number]-85yq-[id number]pbzd Health InsuranceAetna MCR PFFS MEBVPLKX [id number]-ereWqnj Pay [id number] 50g019l3-45e5-5p19-44e7-6147heo09t2iOxcidym0404033 8528di1w-4qgy-85mx-tr5m-02v8xu793619ZouofhzAHRTQBwagryzMRTC/HFA/FAP Active [id number] 86t67581-r68b-2c39-vt81-7550pct82n4q Social History DateTypeDetailFacilityTobacco smoking status NHISUnknown if ever smokedOhiohealth Nelsonville Health Center CtrStart: 25-07-4801Sut Assigned At BirthFeMercy Health [facility] CenterStart: 06-29-2020 End: 95-26-5244Xt caffeine useNo caffeine useMP-[facility] DO Work Phone: Comment on above:Quit 1979;Start: 06-29-2020 End: 94-28-6806Fqkklly smoking status NHISEx-smokerUniversity Hospitals St. John Medical Centertart: 11-05-1969 End: 23-93-5496Bmxtezg of tobacco useCurrent smokerUniversity Hospitals St. John Medical Centertart: 11-05-1969 End: 94-75-4214Uelyljj of tobacco useCigarette SmokerUniversity Hospitals St. John Medical Centertart: 06-29-2020 End: 73-52-4106Qeqzmql intakeCurrent non-drinker of alcohol (finding)[facility] Centertart: 76-77-0232Vxw Assigned At BirthNot on fileUniversity Hospitals St. John Medical Centertart: 06-29-2020 End: 38-97-1961Itdtzqu use and exposureSmokeless tobacco non-userUniversity Hospitals St. John Medical Centertart: 06-29-2020 End: 80-57-8983Srotosb use panelUniversity Hospitals St. John Medical Centertart: 10-06-2012 End: 29-14-6940Gjipsmvi Score (1-100), lower number is lower riskNot on file [facility] Centertart: 03-10-2024 End: 08-86-8492Jzyecwvte beverage intakeLifetime non-drinker (finding)[facility] Work Phone: Start: 02-29-2024 End: 66-09-4782Ltgndifh to SARS-CoV-2 (event)Not sureClinton Memorial HospitalHistory of tobacco usePassive smokerNOMS HealthcareHow often to you have a drink containing alcohol?NeverNOMS HealthcareStart: 31-49-4756Dsjptfq Commentcaffeine: 1-2 cups per day teaNOMS HealthcareStart: 11-21-2024 End: 80-73-8414GelLzmwvv (finding)[facility] Hospitaltart: 39-79-8914QNUG Follow upSDOH Follow upJoint [facility] Work Phone: Medical Equipment Procedure CodeEquipment CodeEquipment Original TextEquipment IdentifierDates Implantable incontinence-control electrical stimulation system ()[id number] FDAStart: 10-25-2021 ()[id number] FDAStart: [id number], [id number], [id number], [id number], [id number]: 77-14-8122Hheogsg on above:USE TO TEST ONCE DAILY EVERY MORNING. Goals DatePatient GoalDesired Activity/StatePersonal health goal Functional Status XyjvOlvhfakgulNptqukPthiojch23-08-1162Sfrbqteprr statusPatient at Baseline [facility] Work Phone: [phone]uwrkwiv statusPatient at Baseline [facility] Work Phone: Mental Status FrpcXwjpouidkzCswolvPtvnaxnf95-55-6236Cpnqqdbpw functionCognitive Status Patient at BaselineJoint Township District Memorial Hospital Work Phone: [phone] 422-417306-655246-80-1782Ogvrmjnzr functionCognitive Status Patient at BaselineJoint Township District Memorial Hospital Work Phone: Clinical Notes 10-20-2021 to 08-21-2025 Note Date & RjmhDhigPuvudsxv14-72-8747 History of Present illness Narrative* SPIKE Souza - 08/21/2025 2:00 PM EDT Karuna Reynaga is a 80 y.o. female [...] susceptible to pneumonia. She has been on Alexa for an extended period, but it has [...] 1 g, Vaginal, 2 times weekly fexofenadine (ALEXA) 180 mg, Daily fluticasone (Flonase) 50 MCG/ACT [...] 3 % nebulizer solution TRUEplus Lancets 33[facility] USE TO TEST ONCE DAILY EVERY MORNING. [...] experiencing allergy symptoms not well controlled by Alexa. Reports doesn't tolerate claritin or zyrtec, did well on singulair in the past and requesting this. - A consultation with Dr. Burton regarding the use of Singulair for allergy management will be arranged. [1] Past Medical History: Diagnosis Date Age-related osteoporosis without current pathological fracture 08/20/2023 Allergic rhinitis due to pollen Ankylosing spondylitis lumbar region ([facility]) 04/08/2025 Asthma ([facility]) Bronchiectasis ([facility]) 03/10/2024 Chronic obstructive pulmonary disease, unspecified ([facility]) 05/19/2025 Documented on 02/19/2023 by COURTNEY LOCKHART 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 ([facility]) 08/20/2023 DISH (diffuse idiopathic skeletal hyperostosis) 02/25/2024 Female stress incontinence Former smoker 03/10/2024 Gastroesophageal reflux disease without esophagitis 08/20/2023 Hallux valgus (acquired), left foot Hallux valgus (acquired), right foot Hypothyroidism Intestinal disaccharidase deficiencies and disaccharide malabsorption NSTEMI (non-ST elevated myocardial infarction) ([facility]) 05/19/2025 OAB (overactive bladder) 05/27/2025 Overactive bladder Polyneuropathy associated with underlying disease ([facility]) 05/27/2025 Prediabetes 06/25/2025 Presence of neurostimulator 05/19/2025 Pulmonary hypertension ([facility]) 06/12/2024 Pure hypercholesterolemia 05/27/2025 Seizure disorder ([facility]) 04/24/2024 Syncope 05/19/2025 Transient cerebral ischemia, unspecified type Traumatic brain injury with loss of consciousness ([facility]) 04/24/2024 Type 2 diabetes mellitus with diabetic neuropathy (HCC) 06/25/2025 Type 2 diabetes mellitus with peripheral neuropathy (HCC) 08/20/2023 [2] Past Surgical History: Procedure Laterality [...] Rash Other Reaction(s): unknown documented in this encounterMercy McCune-Brooks HospitalQiwwjeuzdm61-31-8323 NoteHNO ID: [id number] Author: MARGO CASTELLON MD Service: ? Author Type: Physician Type: Progress Notes Filed: 08/06/2025 15:24 Note Text: GENERAL SURGERY POST OPERATIVE FOLLOW UP HPI: This patient is s/p 07/24/2025 laparoscopic cholecystectomy for symptomatic cholelithiasis. Daughter is primary proposal editor. Issues with constipation postop for which she presented to the ED. She was given milk of magnesia and a bowel regimen which provided relief. She just had a follow-up abdominal x-ray today to reassess stool burden. Denies abdominal pain nausea or emesis. Maintaining a good appetite. PHYSICAL EXAM: BP 116/69 Pulse 64 There is no height or weight on file to calculate BMI. General Appearance: Well appearing, alert, in no acute distress, well-hydrated, well nourished.. Eyes: Anicteric sclera. Abdomen: Soft, nondistended and nontender. Laparoscopic incisions are well-approximated. No erythema or ecchymosis.. Extremities: No lower extremity edema, no calf pain or tenderness. Negative Homans' sign. PATHOLOGY: FINAL DIAGNOSIS A. Gallbladder, cholecystectomy: - Chronic cholecystitis with adenomyomatous hyperplasia at the fundus - Cholelithiasis Assessment 1. Symptomatic cholelithiasis (K80.20) Patient is post-cholecystectomy for symptomatic cholelithiasis with pathology confirming chronic inflammation and a 1.5 cm stone. Incisions are healing well with no signs of infection or significant pain. - Continue routine post-operative care. - Advised patient to resume usual diet as tolerated. - As needed stool softeners, follow-up abdominal x-ray to assess stool burden. - Follow up as needed SIGNATURE: Margo Castellon MD PATIENT NAME: Karuna Reynaga DATE: August 06, 2025 TIME: 3:21 [facility]09-20-2025 NoteHNO ID: [id number] Author: COLIN NAVARRO PA-C Service: General Surgery Author Type: Physician Electronic Maintenance Supervisor Type: Progress Notes Filed: 07/25/2025 08:11 Note [...] which included preparing to see the patient, mxfw-ot-abny patient care, completing clinical documentation, obtaining and/or reviewing separately obtained history, and performing a medically appropriate examination. SPIKE ManzanaresGeisinger Encompass Health Rehabilitation HospitalUzixyjsu97-97-5420 NoteHNO ID: [id number] Author: MARGO CASTELLON MD Service: General Surgery Author Type: [...] patient is tolerating diet, may DC home Margo Castellon [facility] HospitalOicbacpf41-07-2794 NoteHNO ID: [id number] Author: BESSIE JIMENEZ APRN.DISEASE CASE MANAGER RN Service: ? Author Type: Nurse Bellman Driver Type: Anesthesia Procedure Notes Filed: 07/24/2025 13:33 Note Text: ANESTHESIOLOGY PROCEDURE NOTE Airway General Information Procedure Start Time/Medication Administration: 07/24/2025 1:15 PM Procedure End Time: 07/24/2025 1:15 PM Patient location during procedure: OR Patient identity confirmed: arm band and patient Staffing Anesthesiologist: Andry Mills MD DISEASE CASE MANAGER RN: Bessie Jimenez APRN.DISEASE CASE MANAGER RN Performed by: DISEASE CASE MANAGER RN Indications and Patient Condition Indications for airway [...] at 18 cm at lip. SIGNATURE: Bessie Jimenez APRN.DISEASE CASE MANAGER RN PATIENT NAME: Karuna Reynaga DATE: July 24, 2025 TIME: 1:25 PM CSN: [id number] History and physical note* Colette Desai PA-C - 07/13/2025 7:00 PM EDT Images from the original note were not included. SERVICE DATE: 07/13/2025 SERVICE TIME: 2:34 PM Surgeon: Margo Castellon MD Type of surgery: LAPAROSCOPIC CHOLECYSTECTOMY POSSIBLE OPEN Patient scheduled for surgery on 07/24/25 Surgery [facility] BP 110/46 Pulse 66 Ht 4' 9 [...] each nostril two times a day. fexofenadine (ALEXA) 180 mg tablet Take 180 mg by mouth once daily. furosemide (LASIX) 20 mg tablet Take 10 mg by mouth once daily. nitrofurantoin monohydrate and macrocrystal (MACROBID) 100 mg capsule Take 100 mg by mouth every 48hours. simvastatin (ZOCOR) 20 mg tablet Take 20 [...] WITH medication Neuro optimization letter scanned into [employer] on 06/11 with recommendations for pt to take meds dos TBI (traumatic brain injury) ([facility]) Assessment: STML, Interstitial lung disease (HCC) Assessment: [...] ischemic attack) Assessment: stable, pt on plavix superintendent terminal Ok to hold per neurology scanned into [facility] Instructed pt to hold 5 days prior to procedure At risk for aspiration pneumonia Assessment: h/o previous tracheostomy with vocal cord paralysis. reported by daughter who is career coordinator. H/o micro aspiration in past 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 ([facility]) Assessment: with agitation Pt recently started on rexulti Discussed concerns with post op dementia/deliurium with daughter Daughter wants to avoid versed longterm (current) use of antithrombotics/antiplatelets Assessment: pt has [...] optimization at this time. Case reviewed with Dr. Noam Miller, ok to proceed. Discussed h/o tracheostomy with vocal [...] instructions and voices comprehension and compliance. SIGNATURE: Colette Desai PA-C PATIENT NAME: Karuna Reynaga DATE: July 13, 2025 TIME: 2:33 PM I spent a total of 45 minutes on the date of the service which included preparing to see the patient, vrju-il-yncz patient care, completing clinical documentation, obtaining and/or reviewing separately obtained history, performing a medically appropriate examination, counseling and educating the pat ient/family/caregiver, and communicating with other HCPs (not separately [...] No [facility]09-08-2025 History and physical note* Colette Desai PA-C - 07/13/2025 7:00 PM EDT Images from the original note were not included. SERVICE DATE: 07/13/2025 SERVICE TIME: 2:34 PM Surgeon: Margo Castellon MD Type of surgery: LAPAROSCOPIC CHOLECYSTECTOMY POSSIBLE OPEN Patient scheduled for surgery on 07/24/25 Surgery Location: [facility] BP 110/46 Pulse 66 Ht 4' 9 [...] each nostril two times a day. fexofenadine (ALEXA) 180 mg tablet Take 180 mg by mouth once daily. furosemide (LASIX) 20 mg tablet Take 10 mg by mouth once daily. nitrofurantoin monohydrate and macrocrystal (MACROBID) 100 mg capsule Take 100 mg by mouth every 48hours. simvastatin (ZOCOR) 20 mg tablet Take 20 [...] WITH medication Neuro optimization letter scanned into [employer] on 06/11 with recommendations for pt to [...] Ok to hold per neurology scanned into [employer] Instructed pt to hold 5 days prior to procedure At risk for aspiration pneumonia Assessment: h/o previous tracheostomy with vocal cord paralysis. reported by daughter who is career coordinator. H/o micro aspiration in past 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 (HCC) Assessment: with agitation Pt recently started on rexulti Discussed concerns with post op dementia/deliurium with daughter Daughter wants to avoid versed longterm (current) use of antithrombotics/antiplatelets Assessment: pt has [...] instructions and voices comprehension and compliance. SIGNATURE: Colette Desai PA-C PATIENT NAME: Karuna Reynaga DATE: July 13, 2025 TIME: 2:33 PM I spent a total of 45 minutes on the date of the service which included preparing to see the patient, josn-bf-exua patient care, completing clinical documentation, obtaining and/or reviewing separately obtained history, performing a medically appropriate examination, counseling and educating the pat ient/family/caregiver, and communicating with other HCPs (not separately reported). [1] Social History Tobacco Use Smoking status: Former Current packs/day: 0.00 Average packs/day: 1 pack/day for 10.0 years (10.0 ttl pk-yrs) Types: Cigarettes Start date: 11/05/1969 Quit date: 11/05/1979 Years since quittin.7 Smokeless tobacco: Never Vaping Use Vaping status: Never Used Substance Use Topics Alcohol use: No Drug use: No documented in this encounterSelect [facility] [place] Instructions* Patient Instructions* Colette Desai PA-C - 07/13/2025 2:48 PM EDT Images from the original note were not included. [facility] PATIENT PREOPERATIVE INSTRUCTIONS Margo Castellon MD has scheduled you for your procedure at this surgery center: [facility]: [phone] --[id number] [place] [address]. Please enter through the entrance closest to [...] mcg/actuation nasal spray Continue as needed fexofenadine (ALXEA) 180 mg tablet Continue evening dose furosemide [...] office. If you are currently using a ftxk-yuy-uqrv injectable or oral medication for diabetes or weight loss such as Dulaglutide (Trulicity), Exenatide (Byetta, Bydureon), Liraglutide (Victoza, Saxenda), Semaglutide (Ozempic, Wegovy, Rybelsus), or Tirzepatide (Mounjaro), the medicine should be stopped at least 7 days before surgery. These medicines can cause food to remain in your stomach for a very longtime and increase the risks from surgery and [...] Procedures: - YOU MUST HAVE A RESPONSIBLE AIRCRAFT ORDNANCE TECHNICIAN TAKE YOU HOME. A CONCRETE BUILDINGS ASSEMBLER OR PACKING CHECKER CANNOT BE MADE A RESPONSIBLE AIRCRAFT ORDNANCE TECHNICIAN. - We recommend that a responsible person stays with you overnight to take care of you. - You cannot stay in a hotel alone after outpatient surgery. You will not be permitted to have yoursurgery, if you do not have someone to [...] Advance Directive, please fax a copy to [phone] or email to for it to be added to your chart. If you do not have an Advance Directive, you can find the appropriate form and more information at [email or web address]. We recommend that youcomplete the Advance Directive form found on the website and bring it with you the day of your surgery. It can be witnessed and scanned into your chart that day. CODY Pimentelally signed by Colette Desai PA-C at 07/13/2025 6:53 PM EDT documented in this encounterSelect [facility] [place] Telephone encounter Note * Telephone Encounter - Susanna Duran RN - 07/13/2025 2:01 PM EDT Patient's daughter calling. Patient scheduled for LAP CHOLEY on 07/24/25. Patient is experiencing more frequent discomfort. Asking if any sooner OR times are available? Please call Nadira @ [phone] ok to leave VM, (there is a 30 sec delay before the beep ) [phone] [facility] [place]09-08-2025 Miscellaneous Notes* Telephone Encounter - Susanna Duran RN - 07/13/2025 2:01 PM EDT Patient's daughter calling. Patient scheduled for LAP CHOLEY on 07/24/25. Patient is experiencing more frequent discomfort. Asking if any sooner OR times are available? Please call Nadira @ [phone] ok to leave VM, (there is a 30 sec delay before the beep ) [phone] documented in this encounterSelect Medical [facility]ty [facility] [place]09-05-2025 NoteHNO ID: [id number] Author: HUMBLE SIMEON MD Service: ? Author Type: Physician Type: Progress Notes Filed: 07/12/2025 15:03 Note Text: SECTION OF OTOLOGY, NEUROTOLOGY AND LATERAL SKULL BASE SURGERY Head and Neck [place], [facility] Quintin Sloan PA-C Chief Complaint: Concern for [...] allergies and has been using Flonase and Alexa, which her daughter believes have helped with [...] PRN. Humble Simeon III, MD Recording using [employer] software for draft documentation of the visit was discussed with the patient/authorized home furnishings sales representative; all questions welcomed and answered. Patient/authorized home furnishings sales representative agreed to proceedC[facility] History of Present illness Narrative* Humble Simeon MD - 07/10/2025 3:56 PM EDT Images from the original note were not included. SECTION OF OTOLOGY, NEUROTOLOGY AND LATERAL SKULL BASE SURGERY Head and Neck [place], [facility] Quintin Sloan PA-C Chief Complaint: Concern for [...] allergies and has been using Flonase and Alexa, which her daughter believes have helped with [...] pack-year smoking history. She has never used smokelesstobacco. She reports that she does not drink alcohol and does not use drugs. Physical Exam: A comprehensive ear, nose, throat/head and neck exam was performed. Pertinent findings include: General: No acute distress. HEENT: Left tympanic membrane with possible fluid, right tympanic membrane with thin area, no clearfluid visualized. Ears: Right ear - Pinna normal [...] PRN. Humble Simeon III, MD Recording using [employer] software for draft documentation of the visit was discussed with the patient/authorized home furnishings sales representative; all questions welcomed and answered. Patient/authorized home furnishings sales representative agreed to proceed documented in this encounterSelect Medical Specialty [facility] [place]09-05-2025 NoteHNO ID: [id number] Author: ANASTASIA KRAUS AUD Service: ? Author Type: Towel Cabinet Repairer Type: Progress Notes Filed: 07/10/2025 15:52 Note Text: [facility] Surgical [place] Head and Neck Department Section of Audiology TYMPANOMETRY ONLY Name: Karuna Reynaga [facility]#: [id number] Date of Service: 07/10/2025 Date of : 1945 Age: [age] year old Referred by: Humble Simeon MD Referred for: Evaluation of suspected change in hearing, tinnitus, or balance. Referral documented: In an order in [facility] (procedures tab) Karuna Reynaga was seen for [...] evaluation of middle ear function. CPT code: 20233 RIGHT EAR: Normal ME function. LEFT EAR: Normal ME function. RECOMMENDATIONS *Continue medical follow up with Humble Simeon MD. *Return for audiogram (60 minutes) on 07/14/2025 if medically indicated. Fransisco Colon, [facility]-A Towel Cabinet Repairer CALDERON Abbrev- iation Definition Degree of hearing sensitivity dB range WNL within normal limits WNL 0 - 20 SNHL sensorineural hearing loss Mild 20-40 CHL conductive hearing loss Moderate 40-55 MHL mixed hearing loss Moderately-Severe 55-70 WRS word recognition score Severe 70-90 ME middle ear Profound 90 + TM tympanic membraneCleveland Clinic Mercy Hospital09-05-2025 History of Present illness Narrative* Anastasia Kraus, AUD - 07/10/2025 3:32 PM EDT Images from the original note were not included. [facility] Surgical [place] Head and Neck Department Section of Audiology TYMPANOMETRY ONLY Name: Karuna Reynaga [facility]#: [id number] Date of Service: 07/10/2025 Date of : 1945 Age: [age] year old Referred by: Humble Simeon MD Referred for: Evaluation of suspected change in hearing, tinnitus, or balance. Referral documented: In an order in [facility] (procedures tab) Karuna Reynaga was seen for [...] evaluation of middle ear function. CPT code: 09954 RIGHT EAR: Normal ME function. LEFT EAR: Normal ME function. RECOMMENDATIONS *Continue medical follow up with Humble Smieon MD. *Return for audiogram (60 minutes) on 07/14/2025 if medically indicated. Fransisco Colon, [facility] Towel Cabinet Repairer CALDERON Abbrev- iation Definition Degree of hearing sensitivity dB range WNL within normal limits WNL 0 - 20 SNHL sensorineural hearing loss Mild 20-40 CHL conductive hearing loss Moderate 40-55 MHL mixed hearing loss Moderately-Severe 55-70 WRS word recognition score Severe 70-90 ME middle ear Profound 90 + TM tympanic membrane documented in this encounterSelect Medical Specialty [facility] [place]08-27-2025 NoteHNO ID: [id number] Author: JEANNE BROWN RN Service: ? Author Type: Registered Nurse Type: Progress Notes Filed: 07/01/2025 09:17 Note Text: RN Pre Visit Questionnaire for upcoming [facility] appointment PROCEDURE : LAPAROSCOPIC CHOLECYSTECTOMY POSSIBLE OPEN SURGEON : Margo Castellon MD PROCEDURE DATE : 07/24/25 [facility] APPT : 07/13/25 Prepared for surgery: Anticoagulant recommendations received: Yes RN Pre Visit Questionnaire completed by [facility] chart review and completed with patient. Medical optimization: Per Dr. Burton, found in Scanned doc on 06/30/25. Do you see a lacquer coater, basket weaver, strategic business development or other specialist within or outside of [facility] [place]? SPECIALISTS: CARDIOLOGY: Log Carrier Operator Dr. Lora, Last office visit 06/12/24 [facility] NEUROLOGY: Dr William 06/24/25 PRIMARY CARE PHYSICIAN: Dr Beau Lockhart FUR WEIGHER OV 05/28/[address] Castellon OV 06/09/25 [facility] with Sohail William MD, PhD (06/24/2025) neuro Office Visit with Margo Castellon MD (06/09/2025) Gen Surg Are you [...] instructions and voices comprehension and compliance. SIGNATURE: Jeanne Brown RN PATIENT NAME: Karuna Reynaga DATE: July 01, 2025 TIME: 8:28 AM PAGER/CONTACT PHONE:[facility]08-[facility] History of Present illness Narrative* Jeanne Brown RN - 07/01/2025 8:27 AM EDT RN Pre Visit Questionnaire for upcoming [facility] appointment PROCEDURE : LAPAROSCOPIC CHOLECYSTECTOMY POSSIBLE OPEN SURGEON : Margo Castellon MD PROCEDURE DATE : 07/24/25 PACC APPT : 07/13/25 Prepared for surgery: Anticoagulant recommendations received: Yes RN Pre Visit Questionnaire completed by Epic chart review and completed with patient. Medical optimization: Per Dr. Burton, found in Scanned doc on 06/30/25. Do you see a lacquer coater, basket weaver, strategic business development or other specialist within or outside of [facility] [place]? SPECIALISTS: CARDIOLOGY: Log Carrier Operator Dr. Lora, Last office visit 06/12/24 CE NEUROLOGY: Dr William 06/24/25 PRIMARY CARE PHYSICIAN: Dr Beau Lockhart CNP OV 05/28/[address] Castellon OV 06/09/25 [facility] with Sohail William MD, PhD (06/24/2025) neuro Office Visit with Margo Castellon MD (06/09/2025) Gen Surg Are you [...] instructions and voices comprehension and compliance. SIGNATURE: Jeanne Brown RN PATIENT NAME: Karuna Reynaga DATE: July 01, 2025 TIME: 8:28 AM PAGER/CONTACT PHONE: documented in this encounterSelect Medical Specialty [facility] [place]08-21-2025 History of Present illness Narrative* Courtney Lockhart NP - 06/25/2025 2:00 PM EDT Images from the original note [...] go out on her and has the feelingof falling asleep) HPI: History of Present Illness [...] due to pollen Ankylosing spondylitis lumbar region ([facility]) 04/08/2025 Asthma ([facility]) Bronchiectasis ([facility]) 03/10/2024 Chronic obstructive pulmonary disease, unspecified ([facility]) 05/19/2025 Documented on 02/19/2023 by COURTNEY LOCKHART 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 ([facility]) 08/20/2023 DISH (diffuse idiopathic skeletal hyperostosis) 02/25/2024 Female stress incontinence Former smoker 03/10/2024 Gastroesophageal reflux disease without esophagitis 08/20/2023 Hallux valgus (acquired), left foot Hallux valgus (acquired), right foot Hypothyroidism Intestinal disaccharidase deficiencies and disaccharide malabsorption NSTEMI (non-ST elevated myocardial infarction) ([facility]) 05/19/2025 OAB (overactive bladder) 05/27/2025 Overactive bladder Polyneuropathy associated with underlying disease ([facility]) 05/27/2025 Prediabetes 06/25/2025 Presence of neurostimulator 05/19/2025 Pulmonary hypertension ([facility]) 06/12/2024 Pure hypercholesterolemia 05/27/2025 Seizure disorder ([facility]) 04/24/2024 Syncope 05/19/2025 Transient cerebral ischemia, unspecified type Traumatic brain injury with loss of consciousness ([facility]) 04/24/2024 Type 2 diabetes mellitus with diabetic neuropathy ([facility]) 06/25/2025 Type 2 diabetes mellitus with peripheral neuropathy ([facility]) 08/20/2023 SURGICAL HISTORY: Past Surgical [...] 1 g, Vaginal, 2 times weekly fexofenadine (ALEXA) 180 mg, Daily fluticasone (Flonase) 50 MCG/ACT nasal spray 2 sprays, Each Nostril, Daily, Shake gently. Before first use, prime pump. After use, clean tip and replace cap. furosemide (LASIX) 10 mg, Oral, Daily glucose blood (Qwaq Metrix Blood Glucose Test) test strip USE [...] 3 % nebulizer solution TRUEplus Lancets 33G [facility] USE TO TEST ONCE DAILY EVERY MORNING. [...] pt at next OV documented in this encounterMercy McCune-Brooks [id number] NoteHNO ID: [id number] Author: SOHAIL WILLIAM MD, PhD Service: ? Author Type: Physician Type: Progress Notes Filed: 06/24/2025 15:22 Note Text: [facility] Patient Name: Karuna Reynaga Date of : 1945 Referring Provider: SELF ESTABLISHED EPILEPSY CLINIC NOTE 06/24/2025 3:00 PM Reason for Visit: Follow Up and Epilepsy Clinical Summary: Ms. Reynaga is a 80 year old right-handed female seen in [facility] [place] [facility]. We had a visit using: [employer] I received consent from the patient to perform the visit using this platform. I have communicated my name and active licensure. The patient's identity and physical location were verified at the time of this visit. Either the patient or their legal home furnishings sales representative has been informed of the [...] Seizure risk factors: Brain Tumor No MEDICAL TECHNICIAN Infections No Developmental Delay No Family history of seizures No Febrile Seizure No Complications No Stroke Yes Traumatic Brain Injury Yes Previous Epilepsy Evaluations PRIOR EVALUATIONS: ? CT Brain WO 04/15/2024 ([facility]) IMPRESSION: ATROPHY AND CHRONIC ISCHEMIC CHANGES. NO ACUTE INTRACRANIAL FINDINGS ? EEG Routine 04/15/2024 ([facility]) Routine EEG showed bifrontal slowing but no epileptiform discharges or seizures ? MRI Brain 04/15/2024 ([facility]) MRI brain April 15, 2024 without contrast [...] BUN 7 - 2 (more content not included)...[facility]08-20-20[facility] History of Present illness Narrative* Sohail William MD, PhD - 06/24/2025 3:07 PM EDT [facility] Patient Name: Karuna Reynaga Date of : 1945 Referring Provider: SELF ESTABLISHED EPILEPSY CLINIC NOTE 06/24/2025 3:00 PM Reason for Visit: Follow Up and Epilepsy Clinical Summary: Ms. Reynaga is a 80 year old right-handed female seen in [facility] [place] [facility]. We had a visit using: [employer] I received consent from the patient to perform the visit using this platform. I have communicated my name and active licensure. The patient's identity and physical location wereverified at the time of this visit. Either the patient or their legal home furnishings sales representative has been informed of the [...] Seizure risk factors: Brain Tumor No MEDICAL TECHNICIAN Infections No Developmental Delay No Family history of seizures No Febrile Seizure No Complications No Stroke Yes Traumatic Brain Injury Yes Previous Epilepsy Evaluations PRIOR EVALUATIONS: CT Brain WO 04/15/2024 ([facility]) IMPRESSION: ATROPHY AND CHRONIC ISCHEMIC CHANGES. NO ACUTE INTRACRANIAL FINDINGS EEG Routine 04/15/2024 ([facility]) Routine EEG showed bifrontal slowing but no epileptiform discharges or seizures MRI Brain 04/15/2024 ([facility]) MRI brain April 15, 2024 without contrast shows bilateral frontal lobe encephalomalacia, some othergeneralized atrophy, no acute intracranial findings 3.8 - [...] each nostril two times a day. fexofenadine (AELXA) 180 mg tablet Take 180 mg by mouth once daily. furosemide (LASIX) 20 mg tablet Take 10 mg by mouth once daily. nitrofurantoin monohydrate and macrocrystal (MACROBID) 100 mg capsule Take 100 mg by mouth every 48hours. simvastatin (ZOCOR) 20 mg tablet Take 20 [...] Cancer Sister cervical SOCIAL HISTORY: -Lives in [place], [place] -Patient lives alone? -Vocation: -Education: -Cigarette, [...] to explore medical CBD in accordance with [place] Law. They again had difficulty tolerating lamotrigine, [...] All prescriptions have been APPROPRIATELY filled. No suspiciousactivity was identified. 06/24/2025 by Sohail William MD, PhD The possibility of serious [...] which included: preparing to see the patient [id number] patient care completing clinical documentation obtaining and/or reviewing separately obtained history counseling and educating the patient/family/caregiver ordering medications, tests, or procedures independently interpreting results (not separately reported) Sohail William MD, PhD cc: Primary Care Physician: Vimal Burton MD [address] [facility] [address] [facility] [address] Referring: SELF Phone: N/A Fax: Patient: Ms. Karuna Reynaga [address] [address] documented in this encounterSelect Medical [facility]ty [facility] [place]08-13-2025 NoteHNO ID: [id number] Author: MARGO CASTELLON MD Service: ? Author Type: Physician [...] and recently underwent a CT scan at [facility], which revealed a 11 mm gallstone [...] reflux management. Karuna has no history of ND or blood clots. PAST MEDICAL HISTORY Diagnosis [...] times a day., Disp: , Rfl: fexofenadine (ALEXA) 180 mg tablet, Take 180 mg by [...] P (more content not included)... [facility]08-13-[facility] History of Present illness Narrative* Margo Castellon MD - 06/17/2025 2:25 PM EDT SERVICE DATE: 06/17/2025 SERVICE TIME: 2:32 PM SERVICE: General Surgery HPI: Karuna Reynaga is a 80-year-old female with a history of TBI, seizure disorder, and cholelithiasis, presenting for evaluation of biliary colic. She is accompanied by her daughter, who is providing history on Karuna's behalf. Karuna has a history of cholelithiasis and recently underwent a CT scan at [facility], which revealed a 11 mm gallstone [...] daily and are associated with pain, irritability. aKruna's daughter has been managing the diarrhea with [...] frontal, and central damage. She has no short- term memory and limited long-term memory. Karuna also [...] reflux management. Karuna has no history of ND or blood clots. PAST MEDICAL HISTORY Diagnosis [...] times a day., Disp: , Rfl: fexofenadine (ALEXA) 180 mg tablet, Take 180 mg by [...] discussed with the Patient or Patient's Authorized Production Trainer. Asapplicable, any other physician, advance practice provider, medical student, or other health professional student that will be observing or involved in the sensitive examination for educational or training purposes was discussed with the Patient or Authorized Production Trainer. The Patient or Authorized Production Trainer has agreed to proceed with the sensitive [...] 1. Symptomatic cholelithiasis (K80.20) CT scan from [facility] revealed an 11 mm gallstone. Symptoms [...] be performed laparoscopically under general anesthesia at [facility]. - Patient will be kept for [...] to assist with care and communication. SIGNATURE: Margo Castellon MD PATIENT NAME: Karuna Reynaga DATE: [...] No Drug use: No documented in this encounterSelect Medical [facility]ty [facility] [place]07-29-2025 NoteHNO ID: [id number] Author: QUINTIN SLOAN PA-C Service: ? Author Type: Physician Electronic Maintenance Supervisor Type: Progress Notes Filed: 06/10/2025 14:13 Note Text: SECTION OF OTOLOGY Department of Otolaryngology - Head and Neck Surgery Integrated Surgical [place], [facility] History of Present Illness Ms. KARUNA REYNAGA is a 80 year old year old female presenting to the clinic for evaluation of her right ear effusion. Patient has dementia and daughter provides history. referred by No referring provider defined for this encounter. And is a patient of DO Jamal Ayers ([place]) [address] [address] Communication will be via the electronic record [...] prior to her symptoms starting. Did take Alexa previously, as well as Zyrtec. She has continued with the Alexa. Otorrhea: denies Facial Numbness, Weakness or Tingling: [...] each nostril two times a day. fexofenadine (ALEXA) 180 mg tablet Take 180 [...] Topics Alcohol use: No (more content not included)...[facility] 06-01-2025 Telephone encounter Note* Telephone Encounter - Lacy Aquino - 06/01/2025 8:52 AM EDT Images from the original note were [...] Aquino [facility] [place]07-28-2025 Miscellaneous Notes* Telephone Encounter - Lacy Aquino - 06/01/2025 8:52 AM EDT Images from the original note were [...] process accordingly. Lacy Aquino documented in this encounterSelect Medical Specialty [facility] [place]07-24-2025 History of Present illness Narrative* Courtney Lockhart NP - 05/28/2025 3:30 PM EDT Images from the original [...] reports that she seemed to have a stroke- like episode, possibly related to a Valsalva maneuver. [...] due to pollen Ankylosing spondylitis lumbar region ([facility]) 04/08/2025 Asthma ([facility]) Bronchiectasis ([facility]) 03/10/2024 Chronic obstructive pulmonary disease, unspecified ([facility]) 05/19/2025 Documented on 02/19/2023 by COURTNEY LOCKHART 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 ([facility]) 08/20/2023 DISH (diffuse idiopathic skeletal hyperostosis) 02/25/2024 Female stress incontinence Former smoker 03/10/2024 Gastroesophageal reflux disease without esophagitis 08/20/2023 Hallux valgus (acquired), left foot Hallux valgus (acquired), right foot Hypothyroidism Intestinal disaccharidase deficiencies and disaccharide malabsorption NSTEMI (non-ST elevated myocardial infarction) ([facility]) 05/19/2025 OAB (overactive bladder) 05/27/2025 Overactive bladder Polyneuropathy associated with underlying disease ([facility]) 05/27/2025 Presence of neurostimulator 05/19/2025 Pulmonary hypertension ([facility]) 06/12/2024 Pure hypercholesterolemia 05/27/2025 Seizure disorder ([facility]) 04/24/2024 Syncope 05/19/2025 Transient cerebral ischemia, unspecified type Traumatic brain injury with loss of consciousness ([facility]) 04/24/2024 Type 2 diabetes mellitus with peripheral neuropathy ([facility]) 08/20/2023 SURGICAL HISTORY: Past Surgical [...] 1 g, Vaginal, 2 times weekly fexofenadine (ALEXA) 180 mg, Daily fluticasone (Flonase) 50 MCG/ACT [...] 3 % nebulizer solution TRUEplus Lancets 33G [facility] USE TO TEST ONCE DAILY EVERY MORNING. [...] twice a day for pain relief. - Qwxf-fax-ymqigtt lidocaine patches (4%) recommended for additional pain management. 7. Gallbladder stone. - Previous CAT scan in 03/2025 revealed a stone within the gallbladder lumen. - Ultrasound recommended as the better test to evaluate the gallbladder. Follow-up - Follow up in a couple of weeks. documented in this [facility]07-18-2025 History of Present illness Narrative* Dee Jackson NP - 05/22/2025 1:00 PM EDT Images from the original note [...] her heightened agitation. She has been using Alexa in the morning and Zyrtec at night [...] 1 g, Vaginal, 2 times weekly fexofenadine (ALEXA) 180 mg, Daily fluticasone (Flonase) 50 MCG/ACT [...] Oral, Every other day, And twice a dayfor 5 days as directed omeprazole (PRILOSEC) 40 mg, Oral, Daily before breakfast, Do not crush or chew. oxybutynin XL (DITROPAN-XL) 5 mg, Oral, Nightly Ozempic (1 MG/DOSE) 1 mg, Subcutaneous, Every 7 days simvastatin (ZOCOR) 20 mg, Oral, Nightly sodium chloride 3 % nebulizer solution TRUEplus Lancets 33G [facility] USE TO TEST ONCE DAILY EVERY MORNING. Allergies Allergen Reactions Codeine Other Reaction(s): unknown Midazolam Hallucinations Other Reaction(s): Confusion, Mental Status Change Propoxyphene Other Reaction(s): unknown Latex Rash Other Rash Penicillins Rash Other Reaction(s): unknown Sulfa Antibiotics Rash Other Reaction(s): unknown Patient Active Problem List Diagnosis Combined hyperlipidemia 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 ([facility]) Type 2 diabetes mellitus with peripheral neuropathy ([facility]) Gastroesophageal reflux disease without esophagitis Hypothyroidism Osteoporosis Urinary incontinence Age-related nuclear cataract of both eyes DISH (diffuse idiopathic skeletal hyperostosis) Seizure ([facility]) Traumatic brain injury with loss of consciousness (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) Chronic obstructive pulmonary disease, unspecified ([facility]) Community acquired pneumonia Diabetes mellitus type II, non insulin dependent ([facility]) Dysphagia Dysphasia Elevated troponin Encounter to discuss test results Endometrial thickening on ultrasound Facet arthritis of lumbosacral region Female stress incontinence Former smoker Globus sensation Hard of hearing History of traumatic brain injury Motor restlessness NSTEMI (non-ST elevated myocardial infarction) ([facility]) Obesity due to excess calories Presence of [...] follow-up. Dee Jackson NP documented in this encounterMercy McCune-Brooks [id number] History of Present illness Narrative* Patricia Barry MD - 05/20/2025 2:40 PM EDT Subjective Patient ID: Karuna Reynaga is a 80 y.o. female who presents for Ear Problem (CT [facility] 05/03/25) Pt seen in the ED 05/[address] head obtained that showed ebonie mastoid fluid and RT ME fluid. Txwith augmentin. Review of Systems All other systems reviewed and are negative. Family History Problem Relation Name Age of Onset Schizophrenia Mother Heart disease Father Stroke Sister Other (heart concerns) Brother Active Ambulatory Problems Diagnosis Date Noted Combined hyperlipidemia 08/20/2023 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 (HCC) 08/20/2023 Type 2 diabetes mellitus with peripheral neuropathy ([facility]) 08/20/2023 Gastroesophageal reflux disease without esophagitis 08/20/2023 Hypothyroidism 08/20/2023 Osteoporosis 08/20/2023 Urinary incontinence 08/20/2023 Age-related nuclear cataract of both eyes 02/13/2024 DISH (diffuse idiopathic skeletal hyperostosis) 02/25/2024 Seizure (HCC) 04/24/2024 Traumatic brain injury with loss of consciousness (CMS-HCC) 04/24/2024 Bronchiectasis with acute lower respiratory infection (HCC) 08/25/2024 Recurrent UTI 08/25/2024 Ankylosing spondylitis lumbar region ([facility]) 04/08/2025 Abnormal lung sounds 03/10/2024 Acquired hallux valgus 05/19/2025 ACS (acute coronary syndrome) (HCC) 05/19/2025 Acute confusion 05/19/2025 Acute hypoxic respiratory failure (HCC) 05/19/2025 Acute post-operative pain 05/19/2025 Altered mental status 05/19/2025 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) 05/19/2025 Chronic obstructive pulmonary disease, unspecified ([facility]) 05/19/2025 Community acquired pneumonia 05/19/2025 Diabetes mellitus type II, non insulin dependent ([facility]) 03/10/2024 Dysphagia 05/19/2025 Dysphasia 03/10/2024 Elevated troponin 05/19/2025 Encounter to discuss test results 06/12/2024 Endometrial thickening on ultrasound 05/19/2025 Facet arthritis of lumbosacral region 05/19/2025 Female stress incontinence 05/19/2025 Former smoker 03/10/2024 Globus sensation 05/19/2025 Hard of hearing 05/19/2025 History of traumatic brain injury 03/10/2024 Motor restlessness 05/19/2025 NSTEMI (non-ST elevated myocardial infarction) ([facility]) 05/19/2025 Obesity due to excess calories 05/19/2025 Presence of neurostimulator 05/19/2025 Pulmonary hypertension ([facility]) 06/12/2024 Sinus bradycardia 03/10/2024 Weakness 05/19/2025 Bronchiectasis ([facility]) 03/10/2024 Cough 06/29/2020 Hyperlipidemia 03/10/2024 GERD (gastroesophageal reflux disease) 05/19/2025 Syncope 05/19/2025 Resolved Ambulatory Problems Diagnosis Date Noted Moderate asthma without complication ([facility]) 08/20/2023 Pulmonary fibrosis ([facility]) 08/20/2023 Need for immunization against influenza 08/23/2023 Chronic cough 12/05/2023 Chest congestion 12/05/2023 Chronic vasomotor rhinitis 12/05/2023 NSIP (nonspecific interstitial pneumonia) ([facility]) 02/25/2024 Shortness of breath 02/25/2024 Past Medical History: Diagnosis Date Allergic rhinitis due to pollen Asthma ([facility]) Asthma ([facility]) Depressive disorder Fall 08/2018 Hallux valgus (acquired), left foot Hallux valgus (acquired), right foot Intestinal disaccharidase deficiencies and disaccharide malabsorption Memory loss Memory loss Obesity (BMI 35.0-39.9 without comorbidity) Overactive bladder Senile osteoporosis Transient cerebral ischemia, unspecified type Type 2 diabetes mellitus without complication ([facility]) Past Surgical History: Procedure Laterality Date ADENOIDECTOMY [...] 3 % nebulizer solution TRUEplus Lancets 33G misc USE TO TEST ONCE DAILY EVERY [...] RT t-tube if persists. documented in this encounterMercy McCune-Brooks [id number] Radiology Diagnostic study [facility] [place] [address] [place] [address] CT Scan Report Signed Patient: Karuna Reynaga MR#: [id number] : 1945 Acct:[id number] Age/Sex: 80 / F ADM Date: 5 Loc: CT Room: Type: [facility] Attending Dr: Jamal Alvarez DO Copies to: Jamal Alvarez DO~ Ordering Provider: Jamal Alvarez DO Date of Service: 05/07/25 CT/CT chest w con: LOCALIZED ENLARGED LYMPH NODES CT Chest with contrast TECHNIQUE: Axial imaging with 2-D reconstruction. 80 cc of Isovue-300The CT exam was performed using one or more the following dose reduction techniques: Automated exposure control, adjustment of theMA and/or Kv according to patient size, or [...] Bird M.D. 05/07/2025 10:46 PM Dictation Location: [place] [address] Transcribed By: [facility] 05/07/252245 Dictated By: Jamal Bird DO 05/07/252241 Signed By: 05/07/252245 [facility]06-04-2025 Progress note* Result Encounter Note - Jamal Alvarez DO - 04/08/2025 8:04 AM EDT Call xray with no frx or tumor seen, jsut advanced DJD. Can make ref to pain mgt if needed. [facility]-Brooks [id number] Miscellaneous Notes* Result Encounter Note - Jamal Alvarez DO - 04/08/2025 8:04 AM EDT Call xray with no frx or tumor seen, jsut advanced DJD. Can make ref to pain mgt if needed. documented in this encounterMercy McCune-Brooks [id number] Telephone encounter Note* Telephone Encounter - Elsa Lutz PA-C - 03/20/2025 1:50 PM EDT The following approved medication requests have been transmitted electronically. Requested Prescriptions Signed Prescriptions Disp Refills cannabidiol (EPIDIOLEX) 100 mg/mL oral liquid 120 mL 1 Sig: Take 2 mL by mouth two times a day. Authorizing Provider: ELSA LUTZ PA-C [facility]05-16-2025 Miscellaneous Notes* Telephone Encounter - Elsa Lutz PA-C - 03/20/2025 1:50 PM EDT The following approved medication requests have been transmitted electronically. Requested Prescriptions Signed Prescriptions Disp Refills cannabidiol (EPIDIOLEX) 100 mg/mL oral liquid 120 mL 1 Sig: Take 2 mL by mouth two times a day. Authorizing Provider: ELSA LUTZ PA-C * Telephone Encounter - Jyoti Silva - 03/20/2025 1:34 PM EDT LVV 12/24/24 [facility] Patient pharmacy requesting refills as follows: Requested Prescriptions Pending Prescriptions Disp Refills cannabidiol (EPIDIOLEX) 100 mg/mL oral liquid 120 mL 1 Sig: Take 2 mL by mouth two times a day. Please review and advise. Jyoti Silva documented in this encounterSelect [facility] [place] Telephone encounter Note * Telephone Encounter - Jyoti Silva - 03/20/2025 1:34 PM EDT LVV 12/24/24 [facility] Patient pharmacy requesting refills as follows: Requested Prescriptions Pending Prescriptions Disp Refills cannabidiol (EPIDIOLEX) 100 mg/mL oral liquid 120 mL 1 Sig: Take 2 mL by mouth two times a day. Please review and advise. Jyoti Silva [facility]05-14-2025 NoteHNO ID: [id number] Author: IRINA DUBOSE MD Service: ? Author Type: Physician [...] a smart vest to help mobilize secretions. Irina Dubose MD March 18, 2025 11:18 [facility]05-14-2025 History of Present illness Narrative* Irina Dubose MD - 03/18/2025 11:16 AM EDT Received message from daughter that Ms. Reynaga [...] a smart vest to help mobilize secretions. Irina Dubose MD March 18, 2025 11:18 AM documented in this encounterSelect [facility] [place]25 Discharge summary Author Renan Murguia [facility] HospitalNote Date/TimeMay 2024 3:38pmJ[place] [address] Discharge Summary Signed Patient: Karuna Reynaga MR#: [id number] : 1945 Acct:[id number] Age/Sex: 80 / F Adm Date: 5 Loc: Room: [address] [place] [address]: Renan Murguia MD Copies to: [...] presents to the Emergency Department on the May 10, complaining of fever productivecough and weakness. Evaluation [...] Plan Discharge Plan Patient Disposition: Home Health [facility] Activity: No Activity Restriction Diet: Regular Additional [...] monohyd/m-cryst 100 mg capsule 100 mg PO .qixd-ksago-yts simvastatin 20 mg tablet 20 mg PO QHS Other Ambulatory Orders: Initiate Home Health (Routine) Timeframe: 1 Day Location: Determined by Patient Ordered By: Renan Murguia Follow Up: Jamal Alvarez DO [Primary Care Provider] - (Call office on Sunday to schedulefollow-up with your Primary Care Provider within 3-5 days of discharge. ) Continuity of Care Document Health Concerns: A [facility] screening has identified you as FRAIL or [...] Strong:Four Ways to Beat the Frailty Risk https://www.[facility] [place].org/health/xixlypjv-cks-gkynxvzknk/st pe-plhfww-dcue- jnbi-ge-tutw-any-cxpmfvx-twyz Exam Physical Exam Vital Signs: Temp Pulse [...] Day Documented By: Renan Murguia MD 03/15/25 7753 Signed By: <Electronically signed by Renan Murguia MD> 03/15/25 1701 [facility] Work Phone: 1(294) 292-387805-11-2025 Progress note Author Renan Murguia [facility] HospitalNote Date/TimeMay 2024 1:54pmJ[place] [address] Hospitalist Progress Note Signed Patient: Karuna Reynaga MR#: [id number] : 1945 Acct:[id number] Age/Sex: 80 / F Adm Date: 5 Loc: 3T Room: [address] [place] [address] Type: ADM IN Attending Dr: Renan Murguia [...] cardiology. Documented By: Renan Murguia MD 03/15/25 3903 Signed By: <Electronically signed by Renan Murguia MD> 03/15/25 6243 [facility] Work Phone: 1(783) 846-124405-11-2025 [place] [address] Discharge Summary Signed Patient: Karuna Reynaga MR#: [id number] : 1945 Acct:[id number] Age/Sex: 80 / F Adm Date: 5 Loc: Room: [address] [place] [address]: Renan Murguia MD Copies to: [...] Plan Discharge Plan Patient Disposition: Home Health [facility] Activity: No Activity Restriction Diet: Regular Additional [...] monohyd/m-cryst 100 mg capsule 100 mg PO .xipy-wmnvx-kpe simvastatin 20 mg tablet 20 mg PO QHS Other Ambulatory Orders: Initiate Home Health (Routine) Timeframe: 1 Day Location: Determined by Patient Ordered By: Renan Murguia Follow Up: Jamal Alvarez DO [Primary Care Provider] - (Call office on Sunday to schedulefollow-up with your Primary Care Provider within 3-5 days of discharge. ) Continuity of Care Document Health Concerns: A [facility] screening has identified you as FRAIL or [...] Strong:Four Ways to Beat the Frailty Risk https://www.[facility] [place].org/health/axudtrny-dih-yruhuqucmn/st ug-wbldhh-gxmc- ecqo-hz-aqsh-whi-jsjxhkf-kicu Exam Physical Exam Vital Signs: Temp Pulse [...] MD 03/15/25 1343 Signed By: 03/15/25 1538 [facility]05-11-2025 [place] [address] Hospitalist Progress Note Signed Patient: Karuna Reynaga MR#: [id number] : 1945 Acct:[id number] Age/Sex: 80 / F Adm Date: 5 Loc: Room: [address] [place] [address] Type: ADM IN Attending Dr: Renan Murguia [...] cardiology. Documented By: Renan Murguia MD 03/15/25 4567 Signed By: 03/15/25 1352 [facility]05-10-2025 Consult note Author Praveena Garcia [facility] HospitalNote Date/TimeMay 2024 3:10pmJennifer [place] [id number] Cardiology Consult Note Signed Patient: Karuna Reynaga MR#: [id number] : 1945 Acct:[id number] Age/Sex: 80 / F Adm Date: 5 Loc: 3T Room: [address] [place] [address] Type: ADM IN Attending Dr: Renan Murguia [...] ischemia. Echo at the time showed normal LKXH10-61% with moderately dilated RV and mild pulmonary hypertension. Repeat limited echo today shows normal LV function 60-65% with normal wall motion. Shedenies any chest pain, palpitations, lightheadedness, dizziness, BLE edema, orthopnea or PND. Review of Systems Review of Systems All other systems reviewed & are negative unless noted below or in HPI [facility] Medical History Idiopathic interstitial pulmonary disease Osteopenia [...] monohydrate/macrocrystals 100 mg capsule 100 mg PO .wtql-wbssr-cxk 03/14/25 [HistoryConfirmed 03/14/25] simvastatin 20 mg tablet [...] Lymph # (Auto) 1.3 1.2 (1.00-4.8) x10E3/uL [place] # (Auto) 0.5 0.6 (0.0-0.8) x10E3/uL Eos [...] ml @ 250 mls/hr IV ONCE ONE Rx#:[id number] cefTRIAXone 1GM-*NS* 1 gm In 50 50 / 50 ml @ 100 mls/hr IV ONCE ONE Rx #:[id number] Oral 100 / 100 Other: # Voids [...] Human metapneumovirus pneumonia Plan Assessment: Type II ND in the setting of community acquired pneumonia [...] signed by Praveena Garcia MD> 03/14/25 1510 [facility] Work Phone: 1(361) 425-308905-10-2025 [place] [address] Cardiology Consult Note Signed Patient: Karuna Reynaga MR#: [id number] : 1945 Acct:[id number] Age/Sex: 80 / F Adm Date: 5 Loc: 3T Room: [address] [place] [address] Type: ADM IN Attending Dr: Renan Murguia [...] ischemia. Echo at the time showed normal CYSM96-37% with moderately dilated RV and mild pulmonary hypertension. Repeat limited echo today shows normal LV function 60-65% with normal wall motion. Shedenies any chest pain, palpitations, lightheadedness, dizziness, BLE edema, orthopnea or PND. Review of Systems Review of Systems All other systems reviewed & are negative unless noted below or in HPI [facility] Medical History Idiopathic interstitial pulmonary disease Osteopenia [...] monohydrate/macrocrystals 100 mg capsule 100 mg PO .jers-cmxtx-loq 03/14/25 [HistoryConfirmed 03/14/25] simvastatin 20 mg tablet [...] Lymph # (Auto) 1.3 1.2 (1.00-4.8) x10E3/uL [place] # (Auto) 0.5 0.6 (0.0-0.8) x10E3/uL Eos [...] ml @ 250 mls/hr IV ONCE ONE Rx#:[id number] cefTRIAXone 1GM-*NS* 1 gm In 50 50 / 50 ml @ 100 mls/hr IV ONCE ONE Rx #:[id number] Oral 100 / 100 Other: # Voids [...] Human metapneumovirus pneumonia Plan Assessment: Type II ND in the setting of community acquired pneumonia [...] MD 03/14/25 1502 Signed By: 03/14/25 1510 [facility]05-10-2025 Progress note Author Renan Murguia [facility] HospitalNote Date/TimeMay 2024 1:01pmJ[place] [address] Hospitalist Progress Note Signed Patient: Karuna Reynaga MR#: [id number] : 1945 Acct:[id number] Age/Sex: 80 / F Adm Date: 5 Loc: Room: [address] [place] [address] Type: ADM IN Attending Dr: Renan Murguia [...] care and confirmed it with the re sident/student/CHEESE CUTTER. Patient seen sitting in chair at bedside [...] 75 Mg Tablet PO 03/14/26 21:59 QHS [facility] Guaifenesin 20 ml 03/14/25 02:00 Guaifenesin Syrup 10 Ml Udc PO 03/14/26 01:59 Q6H PRN Cough Lactated Ringer's 1,000 mls @ 50 mls/hr 03/14/25 02:00 03/14/25 03:50 Lactated Ringers IV 03/14/25 17:32 75 mls/hr .Q20H [facility] Administration Ceftriaxone Sodium 1 gm in 50 mls @ 100 mls/hr 03/15/25 00:30 Rocephin IV Q24H [facility] Levothyroxine Sodium 50 mcg 03/14/25 06:30 03/14/25 06:33 Levothyroxine 50 Mcg Tablet PO 03/14/26 06:29 50 mcg MoTuWeThFrSa@0630 [facility] Administration Liothyronine Sodium 5 mcg 03/14/25 09:00 [...] signed by DO JAUN Hawkins> 03/14/25 [facility] Work Phone: 1(455) 942-976405-10-2025 [place] [address] Hospitalist Progress Note Signed Patient: Karuna Reynaga MR#: [id number] : 1945 Acct:[id number] Age/Sex: 80 / F Adm Date: Loc: Room: [address] [place] [address] Type: ADM IN Attending Dr: Renan Murguia [...] care and confirmed it with the re sident/student/CHEESE CUTTER. Patient seen sitting in chair at bedside [...] 10 Mg Tablet PO 03/15/26 08:59 DAILY [facility] Sodium Chloride 0 ml 03/13/25 17:14 Sodium [...] 1101 Signed By: 03/14/25 1301 03/14/25 1213 [facility]05-10-2025 Radiology Diagnostic study note [facility] [place] [address] [place] [address] CT Scan Report Signed Patient: Karuna Reynaga MR#: [id number] : 1945 Acct:[id number] Age/Sex: 80 / F ADM Date: 5 Loc: Room: [address] [place] [address] Type: ADM IN Attending Dr: Renan Murguia [...] Muñoz M.D. 03/14/2025 8:40 AM Dictation Location: [place] [address] Transcribed By: BERTA 03/14/25 0840 Dictated By: Jose Muñoz II, MD 03/14/2530 Signed By: 03/14/2540 [facility] Work Phone: 1(274) 607-587905-10-2025 History and physical note Author Catalina Navarro [facility] HospitalNote Date/TimeMay 2024 4:[address] [place] [address] Hospitalist H&P Signed Patient: Karuna Reynaga MR#: [id number] : 1945 Acct:[id number] Age/Sex: 80 / F Adm Date: 5 Loc: Room: [address] [place] [address] Type: ADM IN Attending Dr: Matias Valdez DO Copies to: DO Catalina Ayers APRN Shawn J Warner, ~ HPI [...] be admitted as inpatie nt to the [facility] telemetry floor. Review of Systems Review of Systems Unobtainable due to mental condition [facility] Medical History Idiopathic interstitial pulmonary disease Osteopenia [...] monohydrate/macrocrystals 100 mg capsule 100 mg PO .ssvt-nedqu-wvf 03/14/25 [HistoryConfirmed 03/14/25] simvastatin 20 mg tablet [...] % (Auto) 23.1 % (.) 03/13/25 22:38 [place] % (Auto) 9.3 % (.) 03/13/25 22:38 Eos % (Auto) 1.1 % (.) 03/13/25 22:38 Baso % (Auto) 0.7 % (.) 03/13/25 22:38 Nucleat RBC Rel Count 0.1 /100 WBC (0-0.5) 03/13/25 22:38 Neut # (Auto) 3.7 x10E3/uL (1.8-7.7) 03/13/25 22:38 Lymph # (Auto) 1.3 x10E3/uL (1.00-4.8) 03/13/25 22:38 [place] # (Auto) 0.5 x10E3/uL (0.0-0.8) 03/13/25 22:38 [...] pH 5.5 (5.0-9.0) 03/13/25 23:11 Ur Specific [place] 1.032 (1.001-1.030) H 03/13/25 23:11 Urine Protein [...] stay (# of days): 3 Documented By: Catalina Navarro APRN 03/14/25 0207 Signed By: <Electronically signed by ROSELYN Navarro> 03/14/25 0239 <Electronically signed by Matias Valdez DO> 03/14/25 0416 [facility] Work Phone: 1(469) 247-329605-10-2025 History and physical noteJenn[place] [id number] Hospitalist H&P Signed Patient: Karuna Reynaga MR#: [id number] : 1945 Acct:[id number] Age/Sex: 80 / F Adm Date: 5 Loc: 3T Room: [address] [place] [address] Type: ADM IN Attending Dr: Matias Valdez DO Copies to: Jamal Alvarez,DO Catalina Navarro, ROSELYN Valdez, ~ HPI DATE OF EXAMINATION: 03/14/25 CHIEF [...] be admitted as inpatie nt to the [facility] telemetry floor. Review of Systems Review of Systems Unobtainable due to mental condition [facility] Medical History Idiopathic interstitial pulmonary disease Osteopenia [...] monohydrate/macrocrystals 100 mg capsule 100 mg PO .elun-ixmrt-vsu 03/14/25 [HistoryConfirmed 03/14/25] simvastatin 20 mg tablet [...] 22:38 Plt Count 206 x10E3/uL (150-450) 03/13/25 22: MPV 8.2 fl (6.3-10.7) 03/13/25 22:38 Neut % (Auto) 65.8 % (.) 03/13/25 22:38 Lymph % (Auto) 23.1 % (.) 03/13/25 22:38 [place] % (Auto) 9.3 % (.) 03/13/25 22:38 Eos % (Auto) 1.1 % (.) 03/13/25 22:38 Baso % (Auto) 0.7 % (.) 03/13/25: Nucleat RBC Rel Count 0.1 /100 WBC (0-0.5) 03/13/25 22:38 Neut # (Auto) 3.7 x10E3/uL (1.8-7.7) 03/13/25 22:38 Lymph # (Auto) 1.3 x10E3/uL (1.00-4.8) 03/13/25 22:38 [place] # (Auto) 0.5 x10E3/uL (0.0-0.8) 03/13/25 22:38 Eos # (Auto) 0.1 x10E3/uL (0.0-0.45) 03/13/25: [...] pH 5.5 (5.0-9.0) 03/13/25 23:11 Ur Specific [place] 1.032 (1.001-1.030) H 03/13/25 23:11 Urine Protein [...] stay (# of days): 3 Documented By: Catalina Navarro, VICE PRESIDENT OF COMMUNICATIONS 03/14/25 0207 Signed By: 03/14/25 0239 03/14/25 0416 [facility]05-10-2025 Evaluation note* Diagnosis Onset Date Resolution Status Admit Date Acute confusion acuteMay 2024 1:57amAcute hypoxic respiratory failureacuteMay 2024 1:57amCommunity acquired pneumoniaacuteMay 2024 1:57amElevated troponin acuteMay 2024 1:57amHuman metapneumovirus pneumoniaacuteMay 2024 1:57amWeaknessacuteMay 2024 1:57am [facility] Work Phone: 1(544) 515-148705-10-2025 Evaluation note* Diagnosis Onset Date Resolution Status Admit Date Acute confusion resolvedMay 2024 1:57amAcute hypoxic respiratory failureresolvedMay 2024 1:57amCommunity acquired pneumoniaresolvedMay 2024 1:57amElevated troponinresolvedMay 2024 1:57amHuman metapneumovirus pneumoniaresolvedMay 2024 1:57amWeaknessresolvedMay 2024 1:57am [facility] Work Phone: 1(258) 735-579305-09-2025 [facility]iology [facility] [place] [address] CT Scan Report Signed Patient: Karuna Reynaga MR#: [id number] : 1945 Acct:[id number] Age/Sex: 80 / F ADM Date: 5 [...] Muñoz M.D. 03/13/2025 10:19 PM Dictation Location: [place] [address] Transcribed By: BERTA 03/13/252218 Dictated By: Jose Muñoz II, MD 03/13/252212 Signed By: 03/13/252218 [facility] Work Phone: [phone]) [phone] Telephone encounter Note* Telephone Encounter - Jennifer Chandler RN - 01/13/2025 11:08 AM EDT Additional information submitted in CM. Jennifer Chandler RN [facility]03-11-2025 Miscellaneous Notes* Telephone Encounter - Jennifer Chandler RN - 01/13/2025 11:08 AM EDT Additional information submitted in CMM. Jennifer Chandler RN * Telephone Encounter - Jennifer Chandler RN - 01/13/2025 10:41 AM EDT Urgent PA initiated in [facility] calderon [id number]. Jennifer Chandler RN * Telephone Encounter - Jyoti Silva - 01/12/2025 2:26 PM EDT [facility] phoned to follow with prior auth for cannabidiol (EPIDIOLEX) 100 mg/mL oral liquid please call and advise [facility] specialty pharmacy ph# [phone] documented in this encounterSelect [facility] [place]25 Telephone encounter Note * Telephone Encounter - Jennifer Chandler RN - 01/13/2025 10:41 AM EDT Urgent PA initiated in [facility] calderon [id number]. Jennifer Chandler RN [facility] [place]03-10-2025 Telephone encounter Note* Telephone Encounter - Jyoti Silva - 01/12/2025 2:26 PM EDT [facility] phoned to follow with prior auth for cannabidiol (EPIDIOLEX) 100 mg/mL oral liquid please call and advise [facility] specialty pharmacy ph# [phone] [facility] [place]02-19-2025 NoteHNO ID: [id number] Author: SOHAIL WILLIAM MD, PhD Service: ? Author Type: Physician Type: Progress Notes Filed: 12/24/2024 16:30 Note Text: [facility] Patient Name: Karuna Reynaga Date of : 1945 Referring Provider: SELF ESTABLISHED EPILEPSY CLINIC NOTE 12/24/2024 3:00 PM Reason for Visit: Follow Up and Epilepsy Clinical Summary: Ms. Reynaga is a 79 year old right-handed female seen in [facility] [place] [facility]. We had a visit using: [employer] I received consent from the patient to perform the visit using this platform. I have communicated my name and active licensure. The patient's identity and physical location were verified at the time of this visit. Either the patient or their legal home furnishings sales representative has been informed of the [...] Seizure risk factors: Brain Tumor No MEDICAL TECHNICIAN Infections No Developmental Delay No Family history of seizures No Febrile Seizure No Complications No Stroke Yes Traumatic Brain Injury Yes Previous Epilepsy Evaluations PRIOR EVALUATIONS: ? CT Brain WO 04/15/2024 ([facility] IMPRESSION: ATROPHY AND CHRONIC ISCHEMIC CHANGES. NO ACUTE INTRACRANIAL FINDINGS ? EEG Routine 04/15/2024 ([facility]) Routine EEG showed bifrontal slowing but no epileptiform discharges or seizures ? MRI Brain 04/15/2024 ([facility]) MRI brain April 15, 2024 without contrast [...] Take one(1) (more content not included)...[facility]02-19-2025 History of Present illness Narrative* Sohail William MD, PhD - 12/24/2024 3:02 PM EST [facility] Patient Name: Karuna Reynaga Date of : 1945 Referring Provider: SELF ESTABLISHED EPILEPSY CLINIC NOTE 12/24/2024 3:00 PM Reason for Visit: Follow Up and Epilepsy Clinical Summary: Ms. Reynaga is a 79 year old right-handed female seen in [facility] [place] [facility]. We had a visit using: [employer] I received consent from the patient to perform the visit using this platform. I have communicated my name and active licensure. The patient's identity and physical location wereverified at the time of this visit. Either the patient or their legal home furnishings sales representative has been informed of the [...] Seizure risk factors: Brain Tumor No MEDICAL TECHNICIAN Infections No Developmental Delay No Family history of seizures No Febrile Seizure No Complications No Stroke Yes Traumatic Brain Injury Yes Previous Epilepsy Evaluations PRIOR EVALUATIONS: CT Brain WO 04/15/2024 ([facility]) IMPRESSION: ATROPHY AND CHRONIC ISCHEMIC CHANGES. NO ACUTE INTRACRANIAL FINDINGS EEG Routine 04/15/2024 ([facility]) Routine EEG showed bifrontal slowing but no epileptiform discharges or seizures MRI Brain 04/15/2024 ([facility]) MRI brain April 15, 2024 without contrast [...] Cancer Sister cervical SOCIAL HISTORY: -Lives in [place], [place] Social History Tobacco Use Smoking status: [...] to explore medical CBD in accordance with [place] Law. They again had difficulty tolerating lamotrigine, [...] which included: preparing to see the patient [id number] patient care completing clinical documentation obtaining and/or reviewing separately obtained history counseling and educating the patient/family/caregiver performing a medically appropriate examination ordering medications, tests, or procedures independently interpreting results (not separately reported) Sohail William MD, PhD cc: Primary Care Physician: Jamal Alvarez, DO [address] [facility] [address] [facility] [address] Referring: SELF Phone: N/A Fax: Patient: Ms. Karuna Reynaga [address] [facility] [address] [facility] [address] documented in this encounterSelect Medical [facility]ty [facility] [place]02-07-2025 Telephone encounter Note * Telephone Encounter - Tanner Madison - 12/12/2024 7:41 AM EST Prescription [...] by mouth every Sunday, Sunday, and Sunday. Tanner Madison December 12, 2024 7:41 AM [facility] [place]02-07-2025 Miscellaneous Notes* Telephone Encounter - Tanner Madison - 12/12/2024 7:41 AM EST Prescription [...] by mouth every Sunday, Sunday, and Sunday. Tanner Madison December 12, 2024 7:41 AM documented in this encounterSelect Medical [facility]ty [facility] [place]11-04-2024 Telephone encounter Note * Telephone Encounter - Tanner Madison - 09/08/2024 1:14 PM EST Karuna [...] [place]11-04-2024 Miscellaneous Notes* Telephone Encounter - Tanner Madison - 09/08/2024 1:14 PM EST Karuna [...] [place]10-21-2024 History of Present illness Narrative* Courtney Lockhart, CHEESE CUTTER - 08/25/2024 3:15 PM EDT Images from [...] 3 % nebulizer solution TRUEplus Lancets [facility] USE TO TEST ONCE DAILY EVERY [...] her daughter. She is following with Dr. Sohail Calixto, who is a neurologist at the [facility] for her partial seizures. She was on [...] notes and plan were reviewed and followed. Courtney Lockhart, MSN, VICE PRESIDENT OF COMMUNICATIONS-FUR WEIGHER documented in this encounterMercy McCune-Brooks [id number] Telephone encounter Note* Telephone Encounter - Sowmya Long RN - 08/25/2024 11:39 AM EDT 08/13/[address] William started on the LTG titration Sowmya Long RN [facility] [place]10-21-2024 Miscellaneous Notes* Telephone Encounter - Sowmya Long RN - 08/25/2024 11:39 AM EDT 08/13/[address] William started on the LTG titration Sowmya Long RN documented in this encounterSelect Medical Specialty [facility] [place]10-09-2024 Instructions* Patient Instructions* Sohail William MD, PhD - 08/13/2024 4:55 PM [...] [facility] [place]10-09-2024 NoteHNO ID: [id number] Author: SOHAIL WILLIAM MD, PhD Service: ? Author Type: Physician Type: Progress Notes Filed: 12/24/2024 15:02 Note Text: [facility] [place] [facility] [place] [facility] Patient Name: Karuna GAMINO Date of : 1945 INITIAL EPILEPSY CLINIC NOTE 08/13/2024 2:00 PM CHIEF COMPLAINT: New Patient and Epilepsy Self referred. HISTORY OF PRESENT ILLNESS Ms. Reynaga is a 79 year old female seen in [facility] [place] [facility] Out[facility] for initial consultation. We had a visit using: [employer] I received consent from the patient to perform the visit using this platform. I have communicated my name and active licensure. The patient's identity and physical location were verified at the time of this visit. Either the patient or their legal home furnishings sales representative has been informed of the [...] Seizure risk factors: Brain Tumor No MEDICAL TECHNICIAN Infections No Developmental Delay No Family history of seizures No Febrile Seizure No Complications No Stroke Yes Traumatic Brain Injury Yes Previous Epilepsy Evaluations PRIOR EVALUATIONS: ? CT Brain WO 04/15/2024 ([facility]) IMPRESSION: ATROPHY AND CHRONIC ISCHEMIC CHANGES. NO ACUTE INTRACRANIAL FINDINGS ? EEG Routine 04/15/2024 ([facility]) Routine EEG showed bifrontal slowing but no epileptiform discharges or seizures ? MRI Brain 04/15/2024 ([facility]) MRI brain April 15, 2024 without contrast [...] FAMILY HIS (more content not included)...[facility]10-09-2024 History of Present illness Narrative* Sohail William MD, PhD - 08/13/2024 2:07 PM EDT [facility] [place] [facility] [place] [facility] Patient Name: Karuna GAMINO Date of : 1945 INITIAL EPILEPSY CLINIC NOTE 08/13/2024 2:00 PM CHIEF COMPLAINT: New Patient and Epilepsy Self referred. HISTORY OF PRESENT ILLNESS Ms. Reynaga is a 79 year old female seen in [facility] [place] [facility] Outpatient [facility] for initial consultation. We had a visit using: [employer] I received consent from the patient to perform the visit using this platform. I have communicated my name and active licensure. The patient's identity and physical location wereverified at the time of this visit. Either the patient or their legal home furnishings sales representative has been informed of the [...] Seizure risk factors: Brain Tumor No MEDICAL TECHNICIAN Infections No Developmental Delay No Family history of seizures No Febrile Seizure No Complications No Stroke Yes Traumatic Brain Injury Yes Previous Epilepsy Evaluations PRIOR EVALUATIONS: CT Brain WO 04/15/2024 ([facility]) IMPRESSION: ATROPHY AND CHRONIC ISCHEMIC CHANGES. NO ACUTE INTRACRANIAL FINDINGS EEG Routine 04/15/2024 ([facility]) Routine EEG showed bifrontal slowing but no epileptiform discharges or seizures MRI Brain 04/15/2024 ([facility]) MRI brain April 15, 2024 without contrast [...] Cancer Sister cervical SOCIAL HISTORY: -Lives in [place], [place] -Patient lives alone? Social History Tobacco [...] the date of the service which included: Sohail William MD, PhD cc: Primary Care Physician: Jamal Alvarez, [address] [facility] [address] [facility] [address] Referring: Patient: Ms. Karuna Reynaga [address] [address] documented in this encounterSelect Medical [facility]ty [facility] [place]09-26-2024 Telephone encounter Note * Telephone Encounter - Sowmya Long RN - 07/31/2024 3:06 PM EDT EEG order faxed to [facility] via [employer] request to fax report to [phone] send EEG tracings to [facility] Sowmya Long RN [facility] [place]09-26-2024 Miscellaneous Notes* Telephone Encounter - Sowmya Long RN - 07/31/2024 3:06 PM EDT EEG order faxed to [facility] via [employer] request to fax report to [phone] send EEG tracings to [facility] Sowmya Long RN * Telephone Encounter - Melvi García PA-C - 07/31/2024 2:03 PM EDT So the long EEG is 2.5 hours long roughly and it is performed the same way as an hour long EEG so Iwrote the time length requested in the comments. What else are they looking for? Melvi García PA-C * Telephone Encounter - Sowmya Long RN - 07/31/2024 10:33 AM EDT Spoke with Karuna States that [facility] needs the order to specify what is wanted they only do the hour and 3 days, if different it needs to be requested in the order routed for review Sowmya Long RN * Telephone Encounter - Melvi García PA-C - 07/30/2024 2:59 PM EDT EEG long can be done first. Order placed. Melvi García PA-C * Telephone Encounter - Sowmya Long RN - 07/30/2024 2:52 PM EDT 04/22/[address] Juarez ======= routed to REJI 1 to see if long EEG order can be placed or will visit with Dr. William need to be completed first. Sowmya Long, RN * Telephone Encounter - Yaa Russell - 07/30/2024 2:03 PM EDT Patient called back today, and indicated that she's going to have this done at [facility] and they need the order to specifically state how long you want them to do the test for, so please include a time frame on the order. Then fax over to [facility] at: [phone] * Telephone Encounter - Yanick Douglass - 07/30/2024 1:40 PM EDT Nadira is calling Sohail William MD, PhD today to request the order for the EEG to be mailed to the home address. They need to get this done at a location closer to home. Patient has been identified by name and birthdate. Duration of symptoms: N/A Person calling: daughter: Nadira Call patient at: on cell [phone] (home) [phone] (cell) Was an appointment scheduled: No Closing [...] Telephone encounter Note* Telephone Encounter - Sowmya Long RN - 07/31/2024 10:33 AM EDT Spoke with Karuna States that [facility] needs the order to specify what is wanted they only do the hour and 3 days, if different it needs to be requested in the order routed for review Sowmya Long RN [facility] [place]09-25-2024 Telephone encounter Note* Telephone Encounter - Melvi García PA-C - 07/30/2024 2:59 PM EDT EEG long can be done first. Order placed. Melvi García PA-C [facility] [place]09-25-2024 Telephone encounter Note* Telephone Encounter - Sowmya Long RN - 07/30/2024 2:52 PM EDT 04/22/[address] Juarez ======= routed to REJI 1 to see if long EEG order can be placed or will visit with Dr. William need to be completed first. Sowmya Long RN [facility] [place]09-25-2024 Telephone encounter Note* Telephone Encounter - Yaa Russell - 07/30/2024 2:03 PM EDT Patient called back today, and indicated that she's going to have this done at [facility] and they need the order to specifically state how long you want them to do the test for, so please include a time frame on the order. Then fax over to [facility] at: [phone] [facility] [place]09-25-2024 Telephone encounter Note* Telephone Encounter - Yanick Douglass - 07/30/2024 1:40 PM EDT Nadira is calling Sohail William MD, PhD today to request the order for the EEG to be mailed to the home address. They need to get this done at a location closer to home. Patient has been identified by name and birthdate. Duration of symptoms: N/A Person calling: daughter: Nadira Call patient at: on cell [phone] (home) [phone] (cell) Was an appointment scheduled: No Closing statement: Results or non-symptom based questions: Thank you for calling [facility] [place], your call will be returned within the next business day. Yanick Douglass [facility] [place]08-01-2024 Telephone encounter Note* Telephone Encounter - Tanner Madison - 06/05/2024 4:51 PM EDT Fax received on 06/05/2024 from [employer], regarding CMN. Fax placed on provider desk for review/signature. Unsigned copy scanned into patient chart. [facility] [place]08-01-2024 Miscellaneous Notes* Telephone Encounter - Tanner Madison - 06/05/2024 4:51 PM EDT Fax received on 06/05/2024 from [employer], regarding CMN. Fax placed on provider desk for review/signature. Unsigned copy scanned into patient chart. documented in this encounterSelect Medical [facility]ty [facility] [place]07-01-2024 History of Present illness Narrative* Irina Dubose MD - 05/05/2024 3:30 PM EDT Images from the original note were not included. VIRTUAL VISIT PROGRESS NOTE This is a virtual visit using [employer] Video Visit. It required patient- provider interaction for the medical decision making as documented below. I have communicated my name and active licensure. The patient's identity and physical location wereverified at the time of this visit. Either the patient or their legal home furnishings sales representative has been informed of the risks and benefits of -- and alternatives to -- treatment through a remote evaluation andconsents to proceed with the evaluation remotely. [facility] [place] Karuna Reynaga is a 79 year old [...] type Type 2 diabetes mellitus without complication ([facility]) No past surgical history on file. SOCIAL [...] myself) Laboratory Data Laboratory data reviewed in [facility] and Care Everywhere. Pulmonary Function [...] history, and counseling and educating the patient/family/caregiver. Irina Dubose MD May 05, 2024 4:38 PM (Some elements copied from my prior note, which have been updated where appropriate, and all reflect current medical decision making from today, May 05, 2024) documented in this encounterSelect Medical [facility] [place]06-26-2024 History of Present illness Narrative* Yamini Lan RRT - 04/30/2024 1:17 PM EDT PULM FUNCTION: Provider: Irina Dubose MD Spirometry: 1 DLCO: 1 documented in this encounterSelect Medical [facility]ty [facility] [place]06-18-2024 History of Present illness Narrative* Brian Lorenzo APRN.FUR WEIGHER - 04/22/2024 8:15 AM EDT [facility] Review of Records Patient: Karuna Reynaga Address: [address] [place] [address] Impression: Review of records for Karuna Reynaga, [...] ASMs PRIOR EVALUATIONS: CT Brain WO 04/15/2024 ([facility] IMPRESSION: ATROPHY AND CHRONIC ISCHEMIC CHANGES. NO ACUTE INTRACRANIAL FINDINGS EEG Routine 04/15/2024 ([facility]) Routine EEG showed bifrontal slowing but no epileptiform discharges or seizures MRI Brain 04/15/2024 ([facility]) MRI brain April 15, 2024 without contrast shows bilateral frontal lobe encephalomalacia, some othergeneralized atrophy, no acute intracranial findings REJI Recommendations: - EEG long - Visit with epileptologist - Additional testing to be considered by epilepsy clinicians Signed: Brian Lorenzo APRN.CNP April 22, [address] Juarez for review and recommendations. MD Recommendations (as discussed with Dr. Juaerz): - agree with reccomendations documented in this encounterSelect Medical [facility]ty [facility] [place]06-17-2024 Telephone encounter Note * Telephone Encounter - Taqueria Frank - 04/21/2024 4:18 PM EDT OSH imaging/records received: April 21, 2024 -OFFICE NOTES -EEG -MRI BRAIN -CT BRAIN -CARE EVERYWHERE ([place], [place]) Taqueria Frank April 21, 2024 4:19 PM [facility] [place]06-17-2024 Miscellaneous Notes* Telephone Encounter - Taqueria Frank - 04/21/2024 4:18 PM EDT OSH imaging/records received: April 21, 2024 -OFFICE NOTES -EEG -MRI BRAIN -CT BRAIN -CARE EVERYWHERE ([place], [place]) Taqueria Frank April 21, 2024 4:19 PM * Telephone Encounter - Taqueria Frank - 04/21/2024 4:04 PM EDT [facility] Initial Intake Interview April 21, 2024 4:05 PM Caller: Nadira Relationship to pt: Daughter Patient name: Karuna Reynaga Age: [age] year old Address: [address] [place] [address] (home) Insurance: Payor: [facility] MEDICARE / Plan: [facility] MEDICARE ADVANTAGE PPO / Product Type: PPO / Referred by: Self (word of mouth) Referring to: Any Reason for Evaluation: further evaluation and treatment Previously evaluated at: [place], [place] Tel: N/A Fax: N/A Age & [...] or No Date Facility EEG Yes 04/2024 [place], [place]) Video EEG No MRI brain Yes 04/2024 [place], [place]) CT brain Yes 04/2024 [place], [place]) fMRI brain No PET No Ictal [...] Karuna Reynaga Age: [age] year old Address: [address] [place] [address] (home) Insurance: Payor: [facility] MEDICARE / Plan: [facility] MEDICARE ADVANTAGE PPO / Product Type: PPO / Referred by: Self (word of mouth) Referring to: Any Reason for Evaluation: further evaluation and treatment Previously evaluated at: [facility] [place] [place] Tel: N/A Fax: N/A Age & [...] or No Date Facility EEG Yes 04/2024 [place], [place]) Video EEG No MRI brain Yes 04/2024 [place], [place]) CT brain Yes 04/2024 [place]) fMRI brain No PET No Ictal [...] [facility] [place]-12[facility] Progress note Author Andry Nugent [facility] April 16, 2024 5:40pmNote Date/TimeJune 2023 1:04pmJ[place] [address] Neurology Progress Note Signed Patient: Karuna Reynaga MR#: [id number] : 1945 Acct:[id number] Age/Sex: 79 / F Adm Date: 4 Loc: Room: [address] [place] [address] Type: ADM IN Attending Dr: Renan Murguia [...] Recommendations: ST Recommendations ST Recommended Services at [facility] Discharge Assessment/Plan (1) Syncope: Qualifiers: Syncope type: [...] some othergeneralized atrophy, no acute intracranial findings ASSESSMENT: 79-year-old [...] her routine EEG was reassuring. MRI was w ithout anyacute pathology and just redemonstrates that remote bifrontal gliosis and encephalomalacia. PLAN: After much discussion we have decided to start Keppra 250 mg twice daily Continue the home clopidogrel 75 mg daily Outpatient follow-up in neurology clinic; no other recommendations at this time Documented By: Andry Nugent DO 04/16/24 1302 Signed By: <Electronically signed by Andry Nugent DO> 04/16/24 9988 [facility] Work Phone: 1(462) 437-175206-11-2024 Progress note Author Vic Hess [facility] April 15, 2024 4:44pmNote Date/TimeJune 2023 4:44pmJolo[place] [address] Cardiology Progress Note Signed Patient: Karuna Reynaga MR#: [id number] : 1945 Acct:[id number] Age/Sex: 79 / F Adm Date: 4 Loc: Room: [address] [place] [address] Type: ADM IN Attending Dr: Renan Murguia MD Copies to: ~ Date of Service: 04/15/2024 Subjective Principal diagnosis: Near syncopal episode; troponin elevation Interval history: Ms. Reynaga is a 79 year old female that was seen in cardiology consultation at the request of the hospitalist and in conjunction with second-year medical director/head team physician Dr. Hernandez for elevated troponin levels. Patient is seen and evaluated with the medical director/head team physician, I agree with her evaluation and note, [...] was completely unresponsive to stimuli. When the p atient came to, she had some slurred speech. They state she had a prior syncopal episode years ago but since everything was normal on exam done by EMS they did not seek medical attention. Patient denies lightheadedness, palpitations, SOB, or chest pains. She was started on Lasix one month ago by her lacquer coater, Dr. Lora, for possible heart failure. Her breathing has improved with the medication and she was scheduled to get an outpatient echocardiogram today. No known cardiac disease. Her initial troponin was elevated at 482 and trended down to 436. Her EKG does not show signs of ST-T changes. Patient was started on a heparin drip. Echocardiogram with eject fraction 55-60% andmild pulmonary hypertension. LV function is normal, cardiac [...] without evidence of true ACS, chestpain, heart failureor arrhythmias. EEG report and neurology note reviewed. [...] % (Auto) 46.5 Lymph % (Auto) 36.1 Bill[place] % (Auto) 9.8 Eos % (Auto) 6.8 Baso % (Auto) 0.8 Nucleat RBC Rel Count 0.2 Neut # (Auto) 2.6 Lymph # (Auto) 2.0 [place] # (Auto) 0.6 Eos # (Auto) 0.4 [...] <Electronically signed by Vic Hess DO> 04/15/241643 [facility] Work Phone: 1(876) 706-417606-11-2024 Progress note Author Andry Nugent [facility] April 15, 2024 4:01pmNote Date/TimeJune 2023 4:01pmJolo[place] [address] Neurology Progress Note Signed Patient: Karuna Reynaga MR#: [id number] : 1945 Acct:[id number] Age/Sex: 79 / F Adm Date: 4 Loc: Room: [address] [place] [address] Type: ADM IN Attending Dr: Renan Murguia [...] Recommendations: ST Recommendations ST Recommended Services at [facility] Discharge Assessment/Plan (1) Syncope: Qualifiers: Syncope type: unspecified Qualified Code(s): R55 - Syncope and collapse Plan CONSULT REASON: Syncope SUBJECTIVE: Doing about the same as yesterday. No recurrence of any syncopal event. Her daughter says that she is typically pretty tangential at baseline and talks about some fairly bgw-ugn-tdwn things, and sometimes does not even remember [...] signed by Andry Nugent DO> 04/15/24 1601 [facility] Work Phone: 1(259) 692-784506-11-2024 Progress note Author Renan Murguia [facility] April 15, 2024 1:13pmNote Date/TimeJune 2023 1:14pmJolo[place] [address] Hospitalist Progress Note Signed Patient: Karuna Reynaga MR#: [id number] : 1945 Acct:[id number] Age/Sex: 79 / F Adm Date: 4 Loc: 4P Room: [address] [place] [address] Type: ADM IN Attending Dr: Renan Murguia [...] <Electronically signed by Renan Murguia MD> 04/15/241312 [facility] Work Phone: 1(670) 550-398006-10-2024 Consult note Author Andry Nugent [facility] April 14, 2024 5:14pmNote Date/TimeJune 2023 1:15pmJolo[place] [address] Neurology Consult Note Signed Patient: Karuna Reynaga MR#: [id number] : 1945 Acct:[id number] Age/Sex: 79 / F Adm Date: 4 Loc: Room: [address] [place] [address] Type: ADM IN Attending Dr: Renan Murguia MD Copies to: DO Renan Jurado MD Jeffrey A Garman, DO~ HPI Consult Date: 04/14/24 New Car Sales Manager: Andry Nugent DO [facility] Medical History (Updated 04/14/24 @ 17:14 [...] Jamal Bird M.D.04/13/2024 4:26 PM Dictation Location: [facility]--[address] 04/13/24 15:53 IMPRESSION: No acute findings. 4:05 PM 04/13/24 Impression dictated by: Jamal Bird M.D.04/13/2024 4:11 PM Dictation Location: [facility]--01 Head CTA 04/13/24 15:53 IMPRESSION: No occlusion, critical stenosis or dissection of the extracranial orintracranial circulation. Impression dictated by: Jamal Bird M.D.04/13/2024 4:31 PM Dictation Location: [facility]--01 Therapy Recommendations Therapy Recommendations: ST Recommendations ST Recommended Services at [facility] Discharge Assessment/Plan (1) Syncope: Qualifiers: Syncope type: [...] and nondysarthric. Pupils are equal and reactive. Ocularmotility is full. No nystagmus. Facial sensation is [...] signed by Andry Nugent DO> 04/14/24 1719 [facility] Work Phone: 1(426) 207-230006-10-2024 Consult note Author Vic Hess [facility] April 14, 2024 4:31pmNote Date/TimeJun2023 3:25pmJolo[place] [address] Cardiology Consult Note Signed Patient: Karuna Reynaga MR#: [id number] : 1945 Acct:[id number] Age/Sex: 79 / F Adm Date: 4 Loc: Room: [address] [place] [address] Type: ADM IN Attending Dr: Renan Murguia MD Copies to: MD Jamal Lanier DO Samantha Mason, DO, JAUN Hess DO~ Cardiology HPI History of Present Illness Consult Date: 04/14/24 Reason for Consult: NSTEMI HPI: Ms. Reynaga is a 79 year old female that was seen in cardiology consultation at the request of the hospitalist and in conjunction with second-year medical director/head team physician Dr. Hernandez for elevated troponin levels. Patient is seen and evaluated with the medical director/head team physician, I agree with her evaluation and note, [...] was completely unresponsive to stimuli. When the p atient came to, she had some slurred speech. They state she had a prior syncopal episode years ago but since everything was normal on exam done by EMS they did not seek medical attention. Patient denies lightheadedness, palpitations, SOB, or chest pains. She was started on Lasix one month ago by her lacquer coater, Dr. Lora, for possible heart failure. Her breathing has improved with the medication and she was scheduled to get an outpatient echocardiogram today. No known cardiac disease. Her initial troponin was elevated at 482 and trended down to 436. Her EKG does not show signs of ST-T changes. Patient was started on a heparin drip. Echocardiogram with eject fraction 55-60% andmild pulmonary hypertension. LV function is normal, cardiac [...] negative unless noted below or in HPI [facility] Medical History (Updated 04/14/24 @ 15:22 [...] Lymph # (Auto) 1.8 2.3 (1.00-4.8) x10E3/uL Billings # (Auto) 0.5 0.5 (0.0-0.8) x10E3/uL Eos [...] ml @ 999 mls/hr IV .Q1H1M ONE Rx#:[id number] Oral 240 / 240 Output: Urine 150 [...] 1631 <Electronically signed by DO ZAMORANO Marcela Barcenason> 04/14/24 1525 [facility] Work Phone: 1(863) 909-553006-10-2024 Progress note Author Renan Murguia [facility] April 14, 2024 1:29pmNote Date/TimeJune 2023 1:29pmJolo[place] [address] Hospitalist Progress Note Signed Patient: Karuna Reynaga MR#: [id number] : 1945 Acct:[id number] Age/Sex: 79 / F Adm Date: 4 Loc: Room: [address] [place] [address] Type: ADM IN Attending Dr: Renan Murguia [...] <Electronically signed by Renan Murguia MD> 04/14/249 [facility] Work Phone: 1(427) 555-601806-10-2024 History and physical note Author [facility] April 13, 2024 11:03pmNote Date/TimeJune 2023 7:12pmJolo[place] [address] Hospitalist H&P Signed Patient: Karuna Reynaga MR#: [id number] : 1945 Acct:[id number] Age/Sex: 79 / F Adm Date: 4 Loc: 4P Room: [address] [place] [address] Type: ADM IN Attending Dr: Albert Palacio DO Copies to: DO Albert Ayers, DO~ HPI DATE OF EXAMINATION: 04/13/24 CHIEF [...] of the head and neck. No acute processwas identified. Chronic small vessel ischemic change and gliosis/encephalomalacia of the frontal regions was noted. Chest x-ray nonacute and stable. EKG was obtained and exhibited no major ST segmentelevations or depressions. Sinus rhythm was noted. Patient [...] episode and possible NSTEMI. Arrival to the [facility] floor the patient is alert and pleasant [...] has crackles at baseline and recently given low- dose Lasix to which she has had very [...] type of events. No tonic-clonic activity so postictallethargy may be less expected. Maintain telemetry. Minimal cardiac history reported in the past butrecently was seen by cardiology and started on low-dose Lasix that family reports a good response to with baseline pulmonary symptoms. Interstitial lung disease is noted within her history which presently does not seem to be flared up in any way. Her presenting vital signs are remarkably stable andwould not explain demand ischemia however systolic blood [...] although there are fewprior EKGs to compare. [facility] Medical History (Updated 04/13/24 @ 17:47 [...] % (Auto) 29.5 % (.) 04/13/24 15:55 Billings % (Auto) 7.4 % (.) 04/13/24 15:55 Eos % (Auto) 4.3 % (.) 04/13/24 15:55 Baso % (Auto) 0.8 % (.) 04/13/24 15:55 Nucleat RBC Rel Count 0.1 /100 WBC (0-0.5) 04/13/24 15:55 Neut # (Auto) 3.6 x10E3/uL (1.8-7.7) 04/13/24 15:55 Lymph # (Auto) 1.8 x10E3/uL (1.00-4.8) 04/13/24 15:55 Billings # (Auto) 0.5 x10E3/uL (0.0-0.8) 04/13/24 15:55 [...] days): 4 Documented By: Albert Palacio DO 04/13/2421 01 Signed By: <Electronically signed by Albert Palacio DO> 04/13/24 4249 [facility] Work Phone: 1(245) 528-389005-06-2024 History of Present illness Narrative* Judit Lora [...] injury. Daughter is the medical power of litigation attorney associate. Patient toma full code at this time. Primary is Jamal Mylesman. Patient has mild dysphagia. She apparently has [...] than 60, hemoglobin 12.5 hematocrit 40 platelets [id number] Assessment/Plan Diagnoses and all orders for this [...] with unknown loss of consciousness status, sequela ([facility]) BMI 32.0-32.9,adult Former smoker History [...] February 2024-diffuse groundglass interstitial prominence basilar atelectasis/scarring 15-qujo-tfwi history of smoking quit 1979 PFTs not [...] exam, discussion and plan. [facility]: 1(197) 124-762205-06-2024 Instructions* Patient Instructions* Raulito Draper MA - [...] time of your visit. [facility] Work Phone: 1(341) 983-419904-29-2024 History of Present illness Narrative* Irina Dubsoe MD - 03/03/2024 12:30 PM EDT VIRTUAL VISIT PROGRESS NOTE This is a virtual visit using Meilime[employer] Zoom Video Visit. It required patient- provider interaction for the medical decision making as documented below. I have communicated my name and active licensure. The patient's identity and physical location wereverified at the time of this visit. Either the patient or their legal home furnishings sales representative has been informed of the [...] Virtual visit follow up in 3 months Irina Dubose MD Pager: [phone] March 02, 2024 12:06 PM documented in [...] Patient is scheduled on 03/03/2024 at 12:30pm. [address]23-2024 Miscellaneous Notes* Telephone Encounter - Brandon [...] 12:30pm. No answer, unable to leave voicemail. [facility]04-19-2024 History of Present illness Narrative* Yuridia Bourgeois RRT - 02/22/2024 1:47 PM EDT [facility] unable to provide nebulizer. Order and office notes faxed to [employer] [phone], ph [phone]. Yuridia Bourgeois ONLINE ADVERTISING MANAGER documented in this encounter[facility] [place]-20[facility] Evaluation note* Author Flex Ramos [facility] HospitalAuthoredApril 2023 11:53zg10-qtdv-xox female referred to the gastroenterology clinic for [...] dysphagia then determine the need for PPI [facility] Work Phone: [phone]) 963-203704-12-2024 History of Present illness Narrative* Darrel Carranza RRT - 02/15/2024 5:00 PM EDT Faxed nebulizer rx to [facility] in [place] [phone], fax [phone] Darrel Carranza RRT documented in this encounter[facility] [place] Miscellaneous Notes* Telephone Encounter - Tanner Madison - 01/22/2024 2:46 PM EDT Images from the original note were not included. Imported external notification of equipment delivery from [email or web address], dated 01/16/2024. Please allow time delay for documents to appear in [employer] (Scanned Documents Tab). Images can take up to 24 hours to appear in Epic. documented in this encounter[facility] [place] Instructions* Patient Instructions* Irina Dubose MD - 12/28/2023 2:11 PM EST [...] (I will send a prescription to a [employer]) How to Use the Acapella Assure proper [...] should not be placed in the automatic well cleaner, boiled or bleached. 4. Rinse in clean water. 5. Shake off excess water. 6. Drain dry the device. Place each piece downward or rest the unit on its side. 7. Replace the mouthpiece when the unit is completely dry and ready for use. documented in this encounter[facility] [place] History of Present illness Narrative* Irina Dubose MD - 12/28/2023 1:30 PM EST Images from the original note were not included. [facility] [place] Karuna Reynaga is a 78 year old [...] type Type 2 diabetes mellitus without complication (CMS/[facility]) No past surgical history on file. 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 SOCIAL HISTORY Social History Tobacco Use Smoking [...] myself) Laboratory Data Laboratory data reviewed in [facility] and Care Everywhere. Pulmonary Function [...] her how to use it but her bxquohkc-qm-xyb states that she will likely not be [...] the patient being referred for transplantation?: No Irina Dubose MD December 28, 2023 5:04 PM [...] PATIENT PRESENTS WITH AN IMPLANTABLE OR ATTACHED FACILITY MAINTENANCE MANAGER: No RADIOLOGY DEPARTMENT: CT; Exam(s) Completed: Chest [...] PATIENT PRESENTS WITH AN IMPLANTABLE OR ATTACHED FACILITY MAINTENANCE MANAGER: No RADIOLOGY DEPARTMENT: CT; Exam(s) Completed: Chest [...] 2:58 PM EST PULM FUNCTION SMARTBLOCK: Provider: Irina Dubose MD Spirometry: 1 DLCO: 1 documented in this encounter[facility] [place]-2023 Evaluation note* Author Flex VieraKettering Health TroyNeelamhoredAprirish 2023 11:50cl20-mpjq-uli female referred to the gastroenterology clinic for [...] determine the need for PPI [facility] Work Phone: 1(259) 422-844212-16-2021 NoteHISTORY: Bone density screening. COMPARISON: None available. [...] and signed by Vimal Ernst on 10/20/2021 1621[facility] SpecialistConsult note Author Praveena Garcia [facility] HospitalNote Date/TimeMay 2024 3:10pmJ[place] [address] Cardiology Consult Note Signed Patient: Karuna Reynaga MR#: [id number] : 1945 Acct:[id number] Age/Sex: 80 / F Adm Date: 5 Loc: 3T Room: [address] [place] [address] Type: ADM IN Attending Dr: Renan Murguia [...] ischemia. Echo at the time showed normal STIT94-47% with moderately dilated RV and mild pulmonary hypertension. Repeat limited echo today shows normal LV function 60-65% with normal wall motion. Shedenies any chest pain, palpitations, lightheadedness, dizziness, BLE edema, orthopnea or PND. Review of Systems Review of Systems All other systems reviewed & are negative unless noted below or in HPI [facility] Medical History Idiopathic interstitial pulmonary disease Osteopenia [...] monohydrate/macrocrystals 100 mg capsule 100 mg PO .khax-ympwa-sqg 03/14/25 [HistoryConfirmed 03/14/25] simvastatin 20 mg tablet [...] Lymph # (Auto) 1.3 1.2 (1.00-4.8) x10E3/uL Billings # (Auto) 0.5 0.6 (0.0-0.8) x10E3/uL Eos [...] ml @ 250 mls/hr IV ONCE ONE Rx#:[id number] cefTRIAXone 1GM-*NS* 1 gm In 50 50 / 50 ml @ 100 mls/hr IV ONCE ONE Rx #:[id number] Oral 100 / 100 Other: # Voids [...] Human metapneumovirus pneumonia Plan Assessment: Type II ND in the setting of community acquired pneumonia [...] signed by Praveena Garcia MD> 03/14/25 1510 [facility] Work Phone: Discharge summary Author Renan Murguia [facility] HospitalNote Date/TimeMay 2024 3:38pmJ[place] [address] Discharge Summary Signed Patient: Karuna Reynaga MR#: [id number] : 1945 Acct:[id number] Age/Sex: 80 / F Adm Date: 5 Loc: 3T Room: [address] [place] [address]: Renan Murguia MD Copies to: MD Jamal LanierDO~ Providers Date of Discharge: 03/15/25 Discharging Provider: [...] Plan Discharge Plan Patient Disposition: Home Health [facility] Activity: No Activity Restriction Diet: Regular Additional [...] monohyd/m-cryst 100 mg capsule 100 mg PO .vxzk-pmeda-tbp simvastatin 20 mg tablet 20 mg PO QHS Other Ambulatory Orders: Initiate Home Health (Routine) Timeframe: 1 Day Location: Determined by Patient Ordered By: Renan Murguia Follow Up: Jamal Alvarez DO [Primary Care Provider] - (Call office on Sunday to schedulefollow-up with your Primary Care Provider within 3-5 days of discharge. ) Continuity of Care Document Health Concerns: A [facility] screening has identified you as FRAIL or [...] Strong:Four Ways to Beat the Frailty Risk [email or web address]/st yg-lpylnh-lkvd- ujos-pp-nkwh-tjm-rvimgmb-idvc Exam Physical Exam Vital Signs: Temp Pulse [...] signed by Renan Murguia MD> 03/15/25 1538 [facility] Work Phone: Evaluation noteNo assessment information available [facility]* Diagnosis Hypothyroidism, adult- Primary Other specified acquired hypothyroidism 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) Mixed hyperlipidemia documented in this encounter [facility]* Diagnosis Dermatophytosis of nail- Primary Well controlled type 2 diabetes mellitus with neurological manifestations (HCC) Type II or unspecified type diabetes mellitus with neurological manifestations, not stated as uncontrolled Unspecified hypothyroidism documented in this encounter [facility]* Diagnosis Dermatophytosis of nail- Primary documented in this encounter [facility]* Diagnosis ILD (interstitial lung disease) (HCC)- Primary Postinflammatory pulmonary fibrosis Shortness of breath documented [facility] this [facility]* Diagnosis Bronchiectasis without complication (HCC)- Primary Bronchiectasis without acute exacerbation Aspiration pneumonitis (HCC) Pneumonitis due to inhalation of food or vomitus Traumatic brain injury with loss of consciousness, sequela (HCC) documented in this encounter [facility]* Diagnosis Onset Date Resolution Status Bronchitis noneactive [facility] Work Phone: Evaluation note* Diagnosis Bronchiectasis without complication (HCC)- Primary Bronchiectasis without acute exacerbation documented in this encounter [facility]* Diagnosis Bronchiectasis without complication (HCC)- Primary Bronchiectasis without acute exacerbation documented in this encounter [facility]* Diagnosis Bronchiectasis without complication (HCC)- Primary Bronchiectasis without acute exacerbation Aspiration pneumonitis (HCC) Pneumonitis due to inhalation of food or vomitus Traumatic brain injury with loss of consciousness, sequela (HCC) [facility]* Diagnosis Shortness of breath Hyperlipidemia, unspecified [...] Medication course changed documented in this encounter [facility] Work Phone: Evaluation note* Diagnosis Convulsions, unspecified convulsion type (HCC)- Primary documented in this encounter [facility]* Diagnosis Bronchiectasis without complication (HCC) Bronchiectasis without acute exacerbation documented in this encounter [facility]* Diagnosis Bronchiectasis without complication (HCC)- Primary Bronchiectasis without acute exacerbation [facility]* Diagnosis Bronchiectasis without complication (HCC)- Primary Bronchiectasis without acute exacerbation Yeast infection Candidiasis of unspecified site documented in this encounter [facility]* Diagnosis Interstitial pulmonary disease (HCC) Postinflammatory pulmonary fibrosis documented in this encounter [facility]* Diagnosis Convulsions, unspecified convulsion type (HCC)- Primary documented in this encounter [facility]* Diagnosis Focal epilepsy with impairment of consciousness, intractable (HCC)- Primary Localization-related (focal) (partial) 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, with intractable epilepsy documented [facility] this encounter [facility]* Diagnosis Recurrent UTI- Primary Urinary tract infection, site not specified Bronchiectasis without complication (CMS/HCC) Atherosclerosis of aorta (CMS/HCC) Atherosclerosis of aorta Combined hyperlipidemia (CMS/HCC) Other and unspecified hyperlipidemia 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/HCC) Gastroesophageal reflux disease without esophagitis Esophageal reflux Hypothyroidism, unspecified type ([facility]/HCC) Moderate asthma without complication, unspecified whether persistent ([facility]/HCC) Osteoporosis, unspecified osteoporosis type, unspecified pathological fracture presence ([facility]) Urinary incontinence, unspecified type Seizure ([facility]) Other convulsions Traumatic brain injury with loss of consciousness, subsequent encounter Medication management documented in this encounter [facility] HealthcareEvaluation [facility]* Diagnosis Bronchiectasis without complication (HCC) Bronchiectasis without acute exacerbation documented in this encounter [facility]* Diagnosis Focal epilepsy with impairment of consciousness, intractable ([facility])- Primary Localization-related (focal) (partial) 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, with intractable epilepsy documented in this encounter [facility]* Diagnosis Bronchiectasis without complication ([facility]/HCC)- Primary Edema, unspecified type Recurrent UTI Urinary tract infection, site not specified Seizure ([facility]) Other convulsions Traumatic brain injury with loss of consciousness, subsequent encounter DISH (diffuse idiopathic skeletal hyperostosis) Ankylosing vertebral hyperostosis Hypothyroidism, unspecified type ([facility]) Combined hyperlipidemia ([facility]) Other and unspecified hyperlipidemia Medicare annual wellness visit, subsequent Advance care planning Other specified counseling documented in this encounter [facility] HealthcareEvaluation note* Diagnosis Onset Date Resolution Status Admit Date Acute confusion acuteMay 2024 1:57amAcute hypoxic respiratory failureacuteMay 2024 1:57amCommunity acquired pneumoniaacuteMay 2024 1:57amElevated troponin acuteMay 2024 1:57amHuman metapneumovirus pneumoniaacuteMay 2024 1:57amWeaknessacuteMay 2024 1:57am [facility] Work Phone: Evaluation note* Diagnosis Bronchiectasis with acute lower respiratory infection ([facility])- Primary Pneumonia due to human metapneumovirus Hilar adenopathy Enlargement of lymph nodes Severe persistent reactive airway disease with acute exacerbation ([facility]) Pulmonary hypertension, unspecified (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/HCC) 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) Hypothyroidism, unspecified type (CMS/[facility]) documented in this encounter [facility] HealthcareEvaluation note* Diagnosis Ankylosing spondylitis lumbar region (CMS/HCC)- Primary documented in this encounter [facility] HealthcareEvaluation note* Diagnosis OME (otitis media with effusion), right- Primary documented in this encounter [facility] HealthcareEvaluation note* Diagnosis Acute bilateral mastoiditis- Primary Other specified hearing loss of both ears documented in this encounter [facility] HealthcareEvaluation note* Diagnosis Generalized abdominal pain- Primary Abdominal pain, generalized Diarrhea, unspecified type Nausea and vomiting, unspecified vomiting type Other specified intestinal obstruction, unspecified whether partial or complete (HCC) Diverticulosis Diverticulosis of colon (without mention of hemorrhage) documented in this encounter [facility] HealthcareEvaluation note* Diagnosis Bronchiectasis without complication (HCC) Bronchiectasis without acute exacerbation [facility] Diagnosis Symptomatic cholelithiasis Calculus of gallbladder [...] not elsewhere classified documented in this encounter [facility] HealthcareEvaluation note* Diagnosis Dysfunction of both eustachian tubes- Primary Dysfunction of Eustachian tube Symptomatic cholelithiasis Calculus of gallbladder without mention of cholecystitis or obstruction [facility] Diagnosis Middle ear effusion, right- Primary Chronic otitis media of both ears Unspecified otitis media Symptomatic cholelithiasis Calculus of gallbladder without mention of cholecystitis or obstruction [facility] Diagnosis Pre-op evaluation- Primary Preoperative examination, [...] cerebral ischemia At risk for aspiration pneumonia 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 of antithrombotics/antiplatelets Prediabetes Other abnormal glucose Symptomatic cholelithiasis Calculus of gallbladder without mention of cholecystitis or obstruction * Assessment & Plan Note - Colette Desai PA-C - 07/16/2025 1:20 PM EDT Associated Problem(s): Prediabetes Assessment: most recent a1c was 6 Pt is currently on ozempic, instructions with min of 7 day hold given to patient and daughter * Assessment & Plan Note - Colette Desai PA-C - 07/16/2025 1:19 PM EDT Associated Problem(s): longterm (current) use of antithrombotics/antiplatelets Assessment: pt has ok to hold plavix for 5 days prior to procedure * Assessment & Plan Note - Colette Desai PA-C - 07/16/2025 1:18 PM EDT Associated Problem(s): 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 reported by daughter who is career coordinator. H/o micro aspiration in past * Assessment & Plan Note - Colette Desai PA-C - 07/16/2025 1:14 PM EDT Associated Problem(s): TIA (transient ischemic attack) Assessment: stable, pt on plavix half-way Ok to hold per neurology scanned into epic Instructed pt to hold 5 days prior to procedure * Assessment & Plan Note - Colette Desai PA-C - 07/16/2025 1:13 PM EDT [...] normal * Assessment & Plan Note - Colette Desai PA-C - 07/16/2025 1:12 PM EDT Associated Problem(s): TBI (traumatic brain injury) (HCC) Assessment: STML, * Assessment & Plan Note - Colette Desai PA-C - 07/16/2025 1:11 PM EDT Associated Problem(s): Seizure disorder (HCC) Assessment: STABLE WITH medication Neuro optimization letter scanned into [facility] on 06/11 with recommendations for pt to take meds dos * Assessment & Plan Note - Colette Desai PA-C - 07/13/2025 6:58 PM EDT Associated Problem(s): Pulmonary hypertension (HCC) Assessment: mild per echo 2023 RVSP was 38 * Assessment & Plan Note - Colette Desai PA-C - 07/13/2025 6:55 PM EDT Associated Problem(s): Hypercholesteremia Assessment: stable , well controlled Most recent lipid panel WNL [facility] Diagnosis Pain and swelling of lower leg, right- Primary Lumbar radiculopathy, right Seasonal allergies Allergic rhinitis, cause unspecified documented in this encounter [facility] Author Catalina Navarro [facility] HospitalNote Date/TimeMay 2024 4:16[place] [address] Hospitalist H&P Signed Patient: Karuna Reynaga MR#: [id number] : 1945 Acct:[id number] Age/Sex: 80 / F Adm Date: 5 Loc: Room: [address] [place] [address] Type: ADM IN Attending Dr: Matias Valdez DO Copies to: Jamal Alvarez,DO Catalina Navarro, ROSELYN Salcedo [place] Valdez, DO~ HPI DATE OF EXAMINATION: 03/14/25 [...] be admitted as inpatie nt to the [facility] telemetry floor. Review of Systems Review of Systems Unobtainable due to mental condition [facility] Medical History Idiopathic interstitial pulmonary disease Osteopenia [...] monohydrate/macrocrystals 100 mg capsule 100 mg PO .[id number] 03/14/25 [HistoryConfirmed 03/14/25] simvastatin 20 mg tablet [...] % (Auto) 23.1 % (.) 03/13/25 22:38 [place] % (Auto) 9.3 % (.) 03/13/25 22:38 Eos % (Auto) 1.1 % (.) 03/13/25 22:38 Baso % (Auto) 0.7 % (.) 03/13/25 22:38 Nucleat RBC Rel Count 0.1 /100 WBC (0-0.5) 03/13/25 22:38 Neut # (Auto) 3.7 x10E3/uL (1.8-7.7) 03/13/25 22: Lymph # (Auto) 1.3 x10E3/uL (1.00-4.8) 03/13/25 22:38 [place] # (Auto) 0.5 x10E3/uL (0.0-0.8) 03/13/25 22: Eos # (Auto) 0.1 x10E3/uL (0.0-0.45) 03/13/25 22:38 Baso # (Auto) 0.0 x10E3/uL (0.0-0.2) 03/13/25 22: Monocyte Dist Width 22.62 % (0.00-20.00) H 03/13/25 22:38 D-Dimer Quant (PE/DVT) < 200 ng/mL (0-243) 03/13/25 22:38 PHA Creatinine Clear 46.20 03/13/25 22:38 Sodium 138 mmol/L (136-145) 05/09/25 22:38 Potassium 3.7 mmol/L (3.5-5.1) 03/13/25 22:38 [...] pH 5.5 (5.0-9.0) 03/13/25 23:11 Ur Specific [place] 1.032 (1.001-1.030) H 03/13/25 23:11 Urine Protein [...] stay (# of days): 3 Documented By: Catalina Navarro APRN 03/14/25 1222 Signed By: <Electronically signed by ROSELYN Navarro> 03/14/25 0239 <Electronically signed by Matias Valdez DO> 03/14/25 5820 [facility] Work Phone: Hospital Discharge instructions Additional Instructions [...] NOT operate machinery such as power tools, [employer] mowers, Wally blowers, sewing machines, etc. for 24 hours. [...] arrange for modified barium swallow -Office number [phone]. [facility] Work Phone: Progress note Author W Deshawn [facility] April 16, 2024 6:05pmNote Date/TimeJune 2023 6:05pm[place] [address] Cardiology Progress Note Signed Patient: Karuna Reynaga MR#: [id number] : 1945 Acct:[id number] Age/Sex: 79 / F Adm Date: 4 Loc: Room: [address] [place] [address] Type: ADM IN Attending Dr: Renan Murguia MD Copies to: ~ Date of Service: 04/16/2024 Subjective Principal diagnosis: Near syncopal episode; troponin elevation Interval history: Ms. Reynaga is a 79 year old female that was seen in cardiology consultation at the request of the hospitalist and in conjunction with second-year medical director/head team physician Dr. Hernandez for elevated troponin levels. Patient is seen and evaluated with the medical director/head team physician, I agree with her evaluation and note, [...] was completely unresponsive to stimuli. When the p atient came to, she had some slurred speech. They state she had a prior syncopal episode years ago but since everything was normal on exam done by EMS they did not seek medical attention. Patient denies lightheadedness, palpitations, SOB, or chest pains. She was started on Lasix one month ago by her lacquer coater, Dr. Lora, for possible heart failure. Her breathing has improved with the medication and she was scheduled to get an outpatient echocardiogram today. No known cardiac disease. Her initial troponin was elevated at 482 and trended down to 436. Her EKG does not show signs of ST-T changes. Patient was started on a heparin drip. Echocardiogram with eject fraction 55-60% andmild pulmonary hypertension. LV function is normal, cardiac [...] without evidence of true ACS, chestpain, heart failureor arrhythmias. EEG report and neurology note reviewed. [...] % (Auto) 66.9 Lymph % (Auto) 22.3 [place] % (Auto) 6.4 Eos % (Auto) 3.6 Baso % (Auto) 0.8 Nucleat RBC Rel Count 0.0 Neut # (Auto) 5.0 Lymph # (Auto) 1.7 [place] # (Auto) 0.5 Eos # (Auto) 0.3 [...] 04/16/241803 Signed By: <Electronically signed by Vic Hess, > 04/16/241804 [facility] Work Phone: Progress note Author Renan Murguia [facility] HospitalNote Date/TimeMay 2024 1:01pmJ[place] [address] Hospitalist Progress Note Signed Patient: Karuna Reynaga MR#: [id number] : 1945 Acct:[id number] Age/Sex: 80 / F Adm Date: 5 Loc: Room: [address] [place] [address] Type: ADM IN Attending Dr: Renan Murguia [...] care and confirmed it with the re sident/student/CHEESE CUTTER. Patient seen sitting in chair at bedside [...] Dose Route Start Last Admin Trade Name Freravi PRN Reason Stop Dose Admin Acetaminophen 1,000 [...] signed by DO JAUN Hawkins> 03/14/25 1213 [facility] Work Phone: Progress note Author Renan Murguia [facility] HospitalNote Date/TimeMay 2024 1:54pmJ[place] [address] Hospitalist Progress Note Signed Patient: Karuna Reynaga MR#: [id number] : 1945 Acct:[id number] Age/Sex: 80 / F Adm Date: 5 Loc: 3T Room: [address] [place] [address] Type: ADM IN Attending Dr: Renan Murguia [...] <Electronically signed by Renan Murguia MD> 03/15/25 1354 [facility] Work Phone: Reason for referral (narrative)* Outpatient Procedure (Routine) - AuthorizedSpecialtyDiagnoses / ProceduresReferred By Contact [facility] Diagnoses Bronchiectasis without complication (HCC) Procedures LUNG DIFFUSION CAPACITY (DLCO) DIFFUSING CAPACITY Irina Dubose MD [address] [place] [address] [facility] [place] [address] [place] [address] Referral IDStatusReasonStart DateExpiration DateVisits RequestedVisits [id number] Auto-Generated Referral / * Outpatient Procedure (Routine) - AuthorizedSpecialtyDiagnoses / Procedures Referred By ContactReferred To [facility] Diagnoses Bronchiectasis without complication (HCC) Procedures SPIROMETRY BASELINE ONLY SPMTRY W/VC EXPIRATORY MIRIAM W/WO MXML VOL VNTJ Irina Dubose MD [address] [place] [address] [facility] [place] [address] [place] [address] Referral IDStatusasonStcoffey DateExpiration DateVisits RequestedVisits [id number] Auto-Generated Referral / [facility] for referral (narrative)* Outpatient Procedure (Routine) - Pending ReviewSpecialtyDiagnoses / ProceduresReferred By ContactReferred To [facility] Diagnoses Convulsions, unspecified convulsion type (HCC) Procedures EPIL EEG LONG EEG EXTENDED MONITORING 61-119 MINUTES ELECTROENCEPHALOGRAM REC COMA/SLEEP ONLY Brian Lorenzo APRN.CNP [address] [place] [address] [place] [address] Referral IDStatusasonNewton DateExpiration DateVisits RequestedVisits [id number] Review Auto-Generated Referral / [facility] for referral (narrative)* Outpatient Procedure (Routine) - New RequestSpecialtyDiagnoses / ProceduresReferred By ContactReferred To [facility] Diagnoses Convulsions, unspecified convulsion type (HCC) Procedures EPIL EEG LONG EPIL EEG LONG EEG EXTENDED MONITORING 61-119 MINUTES ELECTROENCEPHALOGRAM REC COMA/SLEEP ONLY Melvi García PA-C [address] [facility] [address] [place] [address] [facility] [place] [id number] [place] [address] Referral IDStatusReasonStart DateExpiration DateVisits RequestedVisits [id number] Request Auto-Generated Referral [facility] (narrative)* Consult, Test, Treat (Routine) - New RequestSpecialtyDiagnoses / ProceduresReferred By ContactReferred To Contact Procedures HEARING TEST/AUDIOGRAM COMPRE AUDIOMETRY THRESHOLD EVAL SP SAMARAIJ Anastasia Kraus, AUD [address] [place] [address] Phone: tel: fax: [facility] [place] [address] [place] [address] Referral IDStatusReasonStart DateExpiration DateVisits RequestedVisits [id number] Request Auto-Generated Referral / [facility] Family History No Family History Records FoundUnknown Family Member Name Dates Details Family history of myocardial infarction: Brother(V17.3, Z82.49) Status:Active Relationship Condition Age at Onset Recorded Date/T everette Not Specified Alzheimer's disease Unknown Cerebrovascular accident (CVA)UnknownDiabetes mellitusUnknownfatherDiabetes mellitusUnknownbrotherDiabetes mellitusUnknownHeart diseaseUnknownsister Cerebrovascular accident (CVA)Unknown Relationship Condition Age at Onset Recorded Date/T everette mother Alzheimer's disease Unknown Cerebrovascular accident (CVA)UnknownDiabetes mellitusUnknownfatherDiabetes mellitusUnknownbrotherDiabetes mellitusUnknownHeart diseaseUnknownsister Cerebrovascular accident (CVA)Unknown Summary Purpose Advance Directives No Advanced Directives [...] Chief Complaint r05.1 Dysphagia dysphagia- vital stim CoughReason for VisitBronchitis Chief Complaint Dysphagia Cough R06.00 dysphagia- vital stim Acid refluxReason for VisitBronchitis Dysphagia GERD (gastroesophageal reflux disease) Globus sensation Chief Complaint Dysphagia Cough R06.00 Acid reflux dysphagia- vital stim J84.89/J84.10/I26.99Reason for VisitBronchitis Dysphagia GERD (gastroesophageal reflux disease) Globus sensation Chief Complaint Dysphagia Cough R06.00 Acid reflux dysphagia- vital stim J84.89/J84.10/I26.99 SyncopeReason for VisitBronchitis Dysphagia GERD (gastroesophageal reflux disease) Globus sensation ACS (acute coronary syndrome) Syncope Chief Complaint Dysphagia Cough R06.00 Acid reflux dysphagia- vital stim J84.89/J84.10/I26.99 Syncope SyncopeReason for VisitBronchitis Dysphagia GERD (gastroesophageal reflux disease) Globus sensation ACS (acute coronary syndrome) Hyperlipidemia NSTEMI (non-ST elevated myocardial infarction) Syncope Chief Complaint Dysphagia Cough R06.00 Acid reflux dysphagia- vital stim gerd,dysphagia,globus sensation J84.89/J84.10/I26.99 Syncope SyncopeReason for VisitBronchitis Dysphagia GERD (gastroesophageal reflux disease) Globus sensation ACS (acute coronary syndrome) Hyperlipidemia NSTEMI (non-ST elevated myocardial infarction) Syncope Chief Complaint Cough R06.00 Acid reflux dysphagia- vital stim gerd,dysphagia,globus sensation J84.89/J84.10/I26.99 Syncope SyncopeReason for VisitBronchitis Dysphagia GERD (gastroesophageal reflux disease) Globus sensation ACS (acute coronary syndrome) Hyperlipidemia NSTEMI (non-ST elevated myocardial infarction) Syncope Chief Complaint Cough R06.00 Acid reflux dysphagia- vital stim gerd,dysphagia,globus sensation J84.89/J84.10/I26.99 Syncope Syncope E03.9Reason for VisitBronchitis Dysphagia GERD (gastroesophageal reflux disease) Globus sensation [...] 3: 02pm Gastroesophageal reflux disease (GERD) J [facility] 2024 12:46pm Chief Complaint Admit Date Unknown February 25, 2025 3:3 0pm cough, sob, chest pain March 14, 2025 1: 57am cough, sob, chest pain March 14, 2025 3: 02pm Gastroesophageal reflux disease (GERD) J [facility] 2024 12:46pm R59.0 May 07, 2025 7:40p m Chief Complaint Admit Date cough, sob, chest pain March 14, 2025 1: 57am cough, sob, chest pain March 14, 2025 3: 02pm Gastroesophageal reflux disease (GERD) J [facility] 2024 12:46pm R59.0 May 07, 2025 7:40p m R13.10 May 28, 2025 1:29 pm Reason for Referral SpecialtyDiagnoses / ProceduresReferred By ContactReferred To ContactCardiology Diagnoses Shortness of breath Cough, unspecified type Abnormal lung sounds Procedures Transthoracic Echo Complete [place] ECHO TTHRC R-T 2D W/WOM-MODE COMPL SPEC&COLR D Judit Lora MD [address] [facility] [address] [place] [address] Referral IDStatusReasonStart DateExpiration DateVisits RequestedVisits [id number] Review Perform Procedure [id number] / ProceduresReferred By ContactReferred To Contact Diagnoses Shortness of breath Procedures ECG 12 Lead Judit Lora MD [address] [facility] [address] [place] [address] Referral IDStatusasonNewton DateExpiration DateVisits RequestedVisits [id number] / Procedures Referred By ContactReferred To ContactCardiology Diagnoses Shortness of breath Procedures Follow Up In Cardiology Judit Lora MD [address] [facility] [address] [place] [address] Judit Lora MD [address] [facility] [address] [place] [address] Referral IDStatusReasonNewton DateExpiration DateVisits RequestedVisits [id number] / Procedures Referred By ContactReferred To ContactCT IMAGING Diagnoses Interstitial pulmonary disease (HCC) Procedures CT CHEST WO IVCON DIAGNOSTIC COMPUTED TOMOGRAPHY THORAX W/O CNTRST Dee Leal, VICE PRESIDENT OF COMMUNICATIONS.FUR WEIGHER [address] [place] [address] [place] [address] Referral IDStatusReasonStcoffey DateExpiration DateVisits RequestedVisits [id number] Auto-Generated Referral / Additional Source Comments Goals (unrecognized section and [...] section and content) DATE CREATED AUTHOR 10/21/2021 [facility] [employer] [employer] DATE CREATED AUTHOR AUTHOR'S ORGANIZ ATION 10/22/2021 [facility] DATE CREATED AUTHOR AUTHOR'S ORGANIZ ATION 02/12/2023 [facility] DATE CREATED AUTHOR AUTHOR'S ORGANIZ ATION 01/09/2025 [facility] DATE CREATED AUTHOR AUTHOR'S ORGANIZ ATION 01/19/2025 [facility] DATE CREATED AUTHOR AUTHOR'S ORGANIZ ATION 05/05/2025 [facility] DATE CREATED AUTHOR AUTHOR'S ORGANIZ ATION 05/30/2025 [facility] DATE CREATED AUTHOR AUTHOR'S ORGANIZ ATION 08/08/2025 [facility] DATE CREATED AUTHOR AUTHOR'S ORGANIZ ATION 08/08/2025 [facility] DATE CREATED AUTHOR AUTHOR'S ORGANIZ ATION 08/26/2025 [facility] EPIC Source Comments (unrecognize d section [...] Care Teams (unrecognized sec tion and content) Team MemberRelationshipSpecialtyStart DateEnd Date Kostas Vance, DO [address] [place] [address] PCP - General05/25/09Team MemberRelationshipSpecialtyStart DateEnd Date Kostas Vance, DO [address] [place] [address] PCP - [facility]05/25/09Team MemberRelationshipSpecialtyStart DateEnd Date Kostas Vance, DO [address] [place] [address] PCP - [facility]05/25/09 Team Status: Inactive Member Role Status Dates Jamal Alvarez DO Primary Care Provider Active Hermes Kennedy DOAttmehul ProviderActive Team Status: Active Member Role Status Dates Jamal Alvarez DO Primary Care Provider Active Team Status: Inactive Member Role Status Dates Jamal Alvarez DO Primary Care Provider Active Campos Marin ProviderActive Team Status: Inactive Member Role Status Dates Jamal Alvarez DO Primary Care Provider Active Start: October 16, 2023 End: October 16, 2023Campos Marin ProviderActiveStart: October 16, 2023 End: October 16, 2023 Team Status: Inactive Member Role Status Dates Jamal Alvarez DO Primary Care Provide r, Attending Provider Active Start: November 21, 2023 End: November 21, 2023Team MemberRelationshipSpecialtyStart DateEnd Date Jamal Alvarez DO [address] [address] PCP - GeneralInternal Medicine12/25/23Team MemberRelationshipSpecialtyStart Date End Date Jamal Alvarez DO [address] [place] [address] PCP - [facility] Medicine12/25/23Team MemberRelationshipSpecialtyStart Date End Date Jamal Alvarez DO [address] [place] [address] PCP - [facility] Medicine12/25/23 Team Status: Active Member Role Status Dates [...] Active Start: February 13, 2024 End: February 12lazaro Pearce CHEESE CUTTER-CAttending ProviderActiveStart: February 13, 2024 End: February 13, 2024 Team Status: Active Member Role Status Dates Jamal Alvarez DO Primary Care Provider Active Start: February 13, 2024 Nallely Pearce , CHEESE CUTTER-CAttending ProviderActiveStart: February 13, 2024 Team MemberRelationshipSpecialtyStart DateEnd Date Jamal Alvarez DO [address] [facility] [address] [facility] [address] [place] [address] PCP - [facility]12/25/23 Team Status: Active Member Role Status Dates Jamal Alvarez DO Primary Care Provide r, Attending Provider Active Start: February 19, 2024 Team Status: Inactive Member Role Status Dates Jamal Alvarez DO Primary Care Provider Active Start: February 21, 2024 End: February 21, 2024Imad Rachel MDAttending ProviderActiveStart: February 21, 2024 End: February 21, 2024Team MemberRelationshipSpecialtyStart DateEnd Date AntonioJamal DO [address] [place] [address] PCP - GeneralInternal Medicine12/25/23 Team Status: Active Member Role Status Dates Jamal Alvarez DO Primary Care Provide r, Attending Provider Active Start: February 21, 2024 Team Status: Inactive Member Role Status Dates Jamal Alvarez DO Primary Care Provider Active Start: February 25, 2024 End: February 25, 2024Courtney Lockhart RN MSN ANP-[facility] ProviderActive Start: February 25, 2024 End: February 25, 2024Team MemberRelationshipSpecialtyStart DateEnd Date AntnoioJamal DO [address] [place] [address] PCP - GeneralInternal Medicine12/25/23Team MemberRelationshipSpecialtyStart Date End Date Jamal Alvarez DO [address] [place] [address] PCP - GeneralInternal Medicine12/25/23Team MemberRelationshipSpecialtyStart Date End Date Jamal Alvarez DO [address] [place] [address] PCP - GeneralInternal Medicine12/25/23Team MemberRelationshipSpecialtyStart Date End Date Jamal Alvarez DO [address] [place] [address] PCP - General11/05/99 Team Status: Active Member Role Status Dates Jamal Alvarez DO Primary Care Provider Active Start: April 13, 2024 Ciro Navarro MDEmer[facility] ProviderActiveStart: April 13, 2024 Albert Palacio DOAdmit Provider, Attending ProviderActiveStart: April 13, 2024 Team Status: Inactive Member Role Status Dates Jamal Alvarez DO Primary Care Provider Active Start: April 13, 2024 End: April 16, 2024Jose L Wade ProviderActiveStart: April 13, 2024 End: April 16, 2024MicVicki Arguelloit ProviderActiveStart: April 13, 2024 End: April 16ndjessica Murguia MDAttending ProviderActiveStart: April 13, 2024 End: April 16, 2024Shahnaz Freeman RNOther ProviderActiveStart: April 13, 2024 End: April 16, 2024W Gaurav Limon ProviderActiveStart: April 13, 2024 End: April 16, 2024Habrian Cruz MDOther ProviderActiveStart: April 13, 2024 End: April 16, 2024Jeanne Luu MDOther ProviderActiveStart: April 13, 2024 End: April 16, 2024Modanna Luu MDOther ProviderActiveStart: April 13, 2024 End: April 16porter Milton MDOther ProviderActiveStart: April 13, 2024 End: April 16Yevgeniy Gamino ProviderActiveStart: April 13, 2024 End: April 16, 2024Te Perera ProviderActiveStart: April 13, 2024 End: April 16, 2024Mokwadwo Jorge MDOther ProviderActiveStart: April 13, 2024 End: April 16, 2024Taalexa Riddle MDOther ProviderActiveStart: April 13, 2024 End: April 16MAGDIEL Azul-BCOther ProviderActiveStart: April 13, 2024 End: April 16hernán Nugent DOOther ProviderActiveStart: April 13, 2024 End: April 16, 2024 Team Status: Active Member Role Status Dates Jamal Alvarez DO Primary Care Provider Active Start: April 16, 2024 Jose L Wade ProviderActiveStart: April 16, 2024 Albert Palacio , DOAdmit ProviderActiveStart: April 16, 2024 Renan Murguia MDOther ProviderActiveStart: April 16, 2024 Shahnaz Freeman RNOther ProviderActiveStart: April 16, 2024 Vic Hess DOOther ProviderActiveStart: April 16, 2024 Gilbert Cruz MDOther ProviderActiveStart: April 16, 2024 Jeanne Luu MDOther ProviderActiveStart: April 16, 2024 Sukhwinder Luu MDOther ProviderActiveStart: April 16, 2024 Oleg Milton MDOther ProviderActiveStart: April 16, 2024 Adilene Navarro APRNOther ProviderActiveStart: April 16, 2024 Judit Lora MDOther ProviderActiveStart: April 16, 2024 Mireille Jorge MDOther ProviderActiveStart: April 16, 2024 Anthony Riddle MDOther ProviderActiveStart: April 16, 2024 Emilee Perez , METALLOGRAPHIC TECHNICIAN-BCOther ProviderActiveStart: April 16, 2024 Andry Nugent DOOther ProviderActiveStart: April 16, 2024 Inocencio Mg , MDAttending ProviderActiveStart: April 16, 2024 Team Status: Inactive Member Role Status Dates Jamal Alvarez DO Primary Care Provider Active Start: February 22, 2024 End: February 22, 2024Imad Campos Ramos ProviderActiveStart: February 22, 2024 End: February 22, 2024Team MemberRelationshipSpecialtyStart DateEnd Date Jamal Alvarez DO [address] [place] [address] PCP - GeneralInternal Medicine12/25/23 Team Status: Inactive Member Role Status Dates Jamal Alvarez DO Primary Care Provider Active Start: April 22, 2024 End: April 22, 2024Valdez Castro MDAttending ProviderActiveStart: April 22, 2024 End: April 22, 2024Team MemberRelationshipSpecialtyStart DateEnd Date Antonio Jamal Zuñiga DO [address] [place] [address] PCP - [facility] Cent[facility]12/25/23 Team Status: Inactive Member Role Status Dates Jamal Alvarez DO Primary Care Provide r, Attending Provider Active Start: February 21, 2024 End: February 21, 2024 Team Status: Inactive Member Role Status Dates Jamal Alvarez DO Primary Care Provider Active Start: April 13, 2024 End: April 16, 2024Ciro Navarro MDEmercy ProviderActiveStart: April 13, 2024 End: April 16, 2024MicMaxime Arguello ProviderActiveStart: April 13, 2024 End: April 16ndjessica Murguia MDAttending ProviderActiveStart: April 13, 2024 End: April 16hernán Nugent DOOther ProviderActiveStart: April 13, 2024 End: April 16, 2024Shahnaz Freeman RNOther ProviderActiveStart: April 13, 2024 End: April 16, 2024W Darrel Hess DOOther ProviderActiveStart: April 13, 2024 End: April 16, 2024Gilbert Cruz MDOther ProviderActiveStart: April 13, 2024 End: April 16, 2024Jeanne Luu MDOther ProviderActiveStart: April 13, 2024 End: April 16, 2024Sukhwinder Luu MDOther ProviderActiveStart: April 13, 2024 End: April 16porter Milton MDOther ProviderActiveStart: April 13, 2024 End: April 16Yevgeniy Gamino ProviderActiveStart: April 13, 2024 End: April 16, 2024Te Perera ProviderActiveStart: April 13, 2024 End: April 16, 2024Mireille Jorge MDOther ProviderActiveStart: April 13, 2024 End: April 16, 2024Taalexa Riddle MDOther ProviderActiveStart: April 13, 2024 End: April 16aroMAGDIEL Trivedi-BCOther ProviderActiveStart: April 13, 2024 End: April 16, 2024 Team Status: Active Member Role Status Dates Jamal Alvarez DO Primary Care Provider Active Start: April 16, 2024 End: April 16, 2024Ciro Navarro MDEmerpedro luis ProviderActiveStart: April 16, 2024 End: April 16, 2024Micjarod Palacio DOAdmit ProviderActiveStart: April 16, 2024 End: April 16ndTe Norris ProviderActiveStart: April 16, 2024 End: April 16, 2024Shahnaz Freeman RNOther ProviderActiveStart: April 16, 2024 End: April 16, 2024W Darrel Hess DOOther ProviderActiveStart: April 16, 2024 End: April 16, 2024Habrian Cruz MDOther ProviderActiveStart: April 16, 2024 End: April 16, 2024Wiedilberto Luu MDOther ProviderActiveStart: April 16, 2024 End: April 16, 2024MoTe Chris ProviderActiveStart: April 16, 2024 End: April 16porter Milton MDOther ProviderActiveStart: April 16, 2024 End: April 16elis Navarro APRNOt ProviderActiveStart: April 16, 2024 End: April 16, 2024GeTe Mascorro ProviderActiveStart: April 16, 2024 End: April 16, 2024MoeT Gallagher ProviderActiveStart: April 16, 2024 End: April 16, 2024TaTe Mcdaniel ProviderActiveStart: April 16, 2024 End: April 16aroMAGDIEL Trivedi-BCOther ProviderActiveStart: April 16, 2024 End: April 16hernán Nugent DOOther ProviderActiveStart: April 16, 2024 End: April 16, 2024GeCampos Yung ProviderActiveStart: April 16, 2024 End: April 16, 2024Team MemberRelationshipSpecialtyStart DateEnd Date Jamal Alvarez DO [address] [facility] [address] [place] [address] PCP - GeneralInternal Medicine12/25/23Team MemberRelationshipSpecialtyStart Date End Date Jamal Alvarez [address] [facility] [facility] [address] [facility] [address] [place] [address] PCP - GeneralInternal Medicine12/25/23Team MemberRelationshipSpecialtyStart Date End Date Antonio Jamal CampbellDO [address] [facility] [address] [place] [address] PCP - GeneralInternal Medicine03/13/23 Saul Abdalla DO [address] [place] [address] 300 [place] [address] Referring PhysicianOphthalmology02/22/24 Irina Dubose MD [address] [place] [address] Referring PhysicianPulmonary Disease02/22/24 Valdez Castro MD [address] [facility] 150 [place] [address] Referring PhysicianPediatric Pulmonology02/22/24 Flex Ramos MD [address] [place] [phone] Referring PhysicianGastroenterology02/22/24 Judit Lora MD 3 [facility] 250 [place] [address] Referring PhysicianCardiology02/22/24Team MemberRelationshipSpecialtyStart Date End Date Jamal Alvarez DO [address] [facility] [address] [place] [address] PCP - GeneralInternal Medicine03/13/23 Saul Abdalla DO [address] [facility] [address] [place] [address] Referring PhysicianOphthalmology02/22/24 Irina Dubose MD [address] [place] [address] Referring PhysicianPulmonary Disease02/22/24 Valdez Castro MD [address] [facility] [address] [place] [address] Referring PhysicianPediatric Pulmonology02/22/24 Flex Ramos MD [address] [place] [phone] Referring PhysicianGastroenterology02/22/24 Judit Lora MD 3 [facility] [address] [place] [address] Referring PhysicianCardiology02/22/24Team MemberRelationshipSpecialtyStart Date End Date Jamal Alvarez DO [address] [facility] [address] [place] [address] PCP - GeneralInternal Medicine03/13/23 Saul Abdalla DO [address] [place] [address] Referring PhysicianOphthalmology02/22/24 Irina Dubose MD [address] [place] [address] Referring PhysicianPulmonary Disease02/22/24 Valdez Castro MD [address] [facility] [address] [place] [address] Referring PhysicianPediatric Pulmonology02/22/24 Flex Ramos MD [address] [place] [phone] Referring PhysicianGastroenterology02/22/24 Judit Lora MD 3 [facility] [address] [place] [address] Referring PhysicianCardiology02/22/24 Team Status: Inactive Member Role Status Dates Jamal Alvarez DO Primary Care Provider Active Start: November 20, 2024 End: November 20, 2024Mazeke Castro MDAttending ProviderActiveStart: November 20, 2024 End: November 20, 2024Team MemberRelationshipSpecialtyStart DateEnd Date Jamal Alvarez DO [address] [place] [address] PCP - GeneralInternal Medicine12/25/23Team MemberRelationshipSpecialtyStart Date End Date Jamal Alvarez DO [address] [place] [address] PCP - GeneralInternal Medicine03/13/23 Saul Abdalla DO [address] [place] [address] Referring PhysicianOphthalmology02/22/24 Irina Dubose MD [address] [place], [place] [phone] Referring PhysicianPulmonary Disease02/22/24 Valdez Castro MD [address] [facility] [address] [place] [address] Referring PhysicianPediatric Pulmonology02/22/24 Flex Ramos MD [address] [facility] [address] [place] [phone] Referring PhysicianGastroenterology02/22/24 Judit Lora MD [address] [facility] [place] [address] Referring PhysicianCardiology02/22/24Team MemberRelationshipSpecialtyStart Date End Date Antonio Jamal Campbell DO [address] [place] [address] PCP - GeneralInternal Medicine03/13/23 Saul Abdalla DO [address] [place] [address] Referring PhysicianOphthalmology02/22/24 Irina Dubose MD [address] [place], [place] [phone] Referring PhysicianPulmonary Disease02/22/24 Valdez Castro MD [address] [facility] [address] [place] [address] Referring PhysicianPediatric Pulmonology02/22/24 Flex Ramos MD 703 [facility] [address] [place] [phone] Referring PhysicianGastroenterology02/22/24 Judit Lora MD [address] [facility], [address] [place] [address] Referring PhysicianCardiology02/22/24 Team Status: Inactive Member Role Status Dates Jamal Alvarez DO Primary Care Provide r, Attending Provider Active Start: February 06, 2025 End: February 06, 2025Mazeke Castro MDOther ProviderActiveStart: February 06, 2025 End: February 06, 2025Team MemberRelationshipSpecialtyStart DateEnd Date Jamal Alvarez DO [address] [place] [address] PCP - GeneralInternal Medicine03/13/23 Saul Abdalla DO [address] [facility] [address] [place] [address] Referring PhysicianOphthalmology02/22/24 Irina Dubose MD [address] [place] [address] Referring PhysicianPulmonary Disease02/22/24 Valdez Castro MD [address] [facility] [address] [place] [address] Referring PhysicianPediatric Pulmonology02/22/24 Flex Ramos MD 703 [facility] [address] [place] [phone] Referring PhysicianGastroenterology02/22/24 uJdit Lora MD [address] [facility], [address] [place] [address] Referring PhysicianCardiology02/22/24Team MemberRelationshipSpecialtyStart Date End Date Jamal Alvarez DO [address] [place] [address] PCP - GeneralInternal Medicine03/13/23 Saul Abdalla DO [address] [place], [place] [address] [place] [address] Referring PhysicianOphthalmology02/22/24 Irina Dubose MD [address] [place] [address] Referring PhysicianPulmonary Disease02/22/24 Valdez Castro MD [address] [place] [address] Referring PhysicianPediatric Pulmonology02/22/24 Flex Ramos MD [address] [place] [address] Referring PhysicianGastroenterology02/22/24 Judit Lora MD [address] [facility] [address], [address] [place] [address] Referring PhysicianCardiology02/22/24Team MemberRelationshipSpecialtyStart Date End Date Jamal Alvarez DO [address] [place] [address] PCP - GeneralInternal Medicine03/13/23 Saul Abdalla DO [address] [place] [address] Referring PhysicianOphthalmology02/22/24 Irina Dubose MD [address] [place] [address] Referring PhysicianPulmonary Disease02/22/24 Valdez Castro MD [address] [place] [address] Referring PhysicianPediatric Pulmonology02/22/24 Flex Ramos MD [address] [place] [address] Referring PhysicianGastroenterology02/22/24 Judit Lora MD [address] [facility] [address], [address] [place] [address] Referring PhysicianCardiology02/22/24 Team Status: Inactive Member Role Status Dates Jamal Alvarez DO Attending Provider Active St art: February 25, 2025 End: February 25, 2025Team MemberRelationshipSpecialtyStart DateEnd Date Jamal Alvarez DO [address] [place] [address] PCP - GeneralInternal Medicine03/13/23 Saul Abdalla DO [address] [place] [address] Referring PhysicianOphthalmology02/22/24 Irina Dubose MD [address] [place] [address] Referring PhysicianPulmonary Disease02/22/24 Valdez Castro MD [address] [place] [address] Referring PhysicianPediatric Pulmonology02/22/24 Flex Ramos MD [address] [place] [address] Referring PhysicianGastroenterology02/22/24 Judit Lora MD [address] [facility] [address] [place] [address] Referring PhysicianCardiology02/22/24 Team Status: Active Member Role Status Dates Jamal Alvarez DO Primary Care Provider Active Start: March 14, 2025 Jose L Wood ProviderActiveStart: March 14, 2025 Maxime Castle Provider, Attending ProviderActiveStart: March 14, 2025 Team Status: Inactive Member Role Status Dates Jamal Alvarez DO Primary Care Provider Active Start: March 14, 2025 End: March 15Jose L Avina ProviderActiveStart: March 14, 2025 End: March 15, 2025Maxime Castle ProviderActiveStart: March 14, 2025 End: March 15Campos Soto ProviderActiveStart: March 14, 2025 End: March 15, 2025 Team Status: Active Member Role Status Dates Jamal Antonio , DO Primary Care Provider Active Start: March 14, 2025 Loraine Mccallum MDEmergency ProviderActiveStart: March 14, 2025 Matias Valdez , DOAdmit ProviderActiveStart: March 14, 2025 Renan Murguia MDOther ProviderActiveStart: March 14, 2025 Praveena Garcia , MDAttending ProviderActiveStart: March 14, 2025 Team MemberRelationshipSpecialtyStart DateEnd Date Jamal Alvarez DO [address] [place] [address] PCP - GeneralInternal Medicine03/13/23 Saul Abdalla DO [address] [place], [place] [address] [address] [place] [address] Referring PhysicianOphthalmology02/22/24 Irina Dubose MD [address] [place] [address] Referring PhysicianPulmonary Disease02/22/24 Valdez Castro MD [address] [place] [address] Referring PhysicianPediatric Pulmonology02/22/24 Flex Ramos MD [address] [place] [address] Referring PhysicianGastroenterology02/22/24 Judit Lora MD [address] [facility] [address], [address] [place] [address] Referring PhysicianCardiology02/22/24Team MemberRelationshipSpecialtyStart Date End Date Jamal Alvarez DO [address] [place] [address] PCP - GeneralInternal Medicine03/13/23 Saul Abdalla DO [address] [place] [address] Referring PhysicianOphthalmology02/22/24 Irina Dubose MD [address] [place], [place] [phone] Referring PhysicianPulmonary Disease02/22/24 Valdez Castro MD [address] [place] [address] Referring PhysicianPediatric Pulmonology02/22/24 Flex Ramos MD [address] [place] [address] Referring PhysicianGastroenterology02/22/24 Judit Lora MD [address] [facility] [address] [place] [address] Referring PhysicianCardiology02/22/24Team MemberRelationshipSpecialtyStart Date End Date Jamal Alvarez DO [address] [facility] [address] [place] [address] PCP - GeneralInternal Medicine03/13/23 Saul Abdalla DO [address] [place] [address] Referring PhysicianOphthalmology02/22/24 Irina Dubose MD [address] [place] [address] Referring PhysicianPulmonary Disease02/22/24 Valdez Castro MD [address] [place] [address] Referring PhysicianPediatric Pulmonology02/22/24 Flex Ramos MD [address] [place] [address] Referring PhysicianGastroenterology02/22/24 Judit Lora MD [address]03 [facility] [address], [address] [place] [address] Referring PhysicianCardiology02/22/24 Team Status: Inactive Member Role Status Dates Jamal Alvarez DO Primary Care Provider Active Start: February 06, 2025 End: February 06, 2025Laura Hi ProviderActiveStart: February 06, 2025 End: February 06, 2025Valdez Castro MDOther ProviderActiveStart: February 06, 2025 End: February 06, 2025 Team Status: Active Member Role Status Dates Jamal Alvarez DO Primary Care Provider Active Start: May 04, 2025 Flex Ramos MDAttmehul ProviderActiveStart: May 04, 2025 Flex Ramos MDOther ProviderActiveStart: May 04, 2025 Team Status: Inactive Member Role Status Dates Jamal Alvarez DO Primary Care Provider Active Start: May 07, 2025 End: May 07, 2025Laura Hi ProviderActiveStart: May 07, 2025 End: May 07, 2025Team MemberRelationshipSpecialtyStart DateEnd Date Jamal Alvarez DO [address] [facility] [address] [place] [address] PCP - GeneralInternal Medicine03/13/23 Saul Abdalla DO [address] [place] [address] Referring PhysicianOphthalmology02/22/24 Irina Dubose MD [address] [place] [address] Referring PhysicianPulmonary Disease02/22/24 Valdez Castro MD [address] [place] [address] Referring PhysicianPediatric Pulmonology02/22/24 Flex Ramos MD [address] [place] [address] Referring PhysicianGastroenterology02/22/24 Judit Lora MD [address] [facility] [address], [address] [place] [address] Referring PhysicianCardiology02/22/24Team MemberRelationshipSpecialtyStart Date End Date AntonioJamal DO [address] [facility] [address] [place] [address] PCP - GeneralInternal Medicine03/13/23 Saul Abdalla, [address] [place] [address] Referring PhysicianOphthalmology02/22/24 Irina Dubose MD [address] [place] [address] Referring PhysicianPulmonary Disease02/22/24 Valdez Castro MD [address] [place] [address] Referring PhysicianPediatric Pulmonology02/22/24 Flex Ramos MD [address] [place] [address] Referring PhysicianGastroenterology02/22/24 Judit Lora MD [address] [facility] [address], [address] [place] [address] Referring PhysicianCardiology02/22/24Team MemberRelationshipSpecialtyStart Date End Date Jamal Alvarez DO [address] [facility] [address] [place] [address] PCP - GeneralInternal Medicine03/13/23 Saul Abdalla DO [address] [place] [address] Referring PhysicianOphthalmology02/22/24 Irina Dubose MD [address] [place] [address] Referring PhysicianPulmonary Disease02/22/24 Valdez Castro MD [address] [place] [address] Referring PhysicianPediatric Pulmonology02/22/24 Flex Ramos MD [address] [place] [address] Referring PhysicianGastroenterology02/22/24 Judit Lora MD [address]03 [facility] 2, [address] [place] [address] Referring PhysicianCardiology02/22/24Team MemberRelationshipSpecialtyStart Date End Date Vimal Burton MD [address] [place] [address] PCP - GeneralInternal Medicine05/26/25 Saul Abdalla DO [address] [place] [address] Referring PhysicianOphthalmology02/22/24 Irina Dubose MD [address] [place] [address] Referring PhysicianPulmonary Disease02/22/24 Valdez Castro MD [address] [place], [place] [address] Referring PhysicianPediatric Pulmonology02/22/24 Flex Ramos MD [address] [place], [place] [address] Referring PhysicianGastroenterology02/22/24 Judit Lora MD [address]03 [facility] 2, [address] [place] [address] Referring PhysicianCardiology02/22/24 Team Status: Inactive Member Role Status Dates Jamal Alvarez DO Primary Care Provider Active Start: May 28, 2025 End: May 28, 2025Imad Campos Ramos ProviderActiveStart: May 28, 2025 End: May 28, 2025Team MemberRelationshipSpecialtyStart DateEnd Date Jamal Alvarez, DO [address] [place] [address] PCP - GeneralInternal Medicine12/25/23Team MemberRelationshipSpecialtyStart Date End Jamal Alvarez, DO [address] [place] [address] PCP - GeneralInternal Medicine/03/29Team MemberRelationshipSpecialtyStart DateEnd Date Vimal Burton MD [address] [place] [address] PCP - GeneralInternal Medicine06/10/25 Courtney Lockhart APRN [address] [place], [facility] Family Medicine06/16/25Team MemberRelationshipSpecialtyStart DateEnd Date Vimal Burton MD [address] [place] [address] PCP - GeneralInternal Medicine05/26/25 Saul Abdalla, DO [address] [place] [address] 300 [place] [address] Referring PhysicianOphthalmology02/22/24 Irina Dubose MD [address] [place] [address] Referring PhysicianPulmonary Disease02/22/24 Valdez Castro MD [address] [facility] [address] [place] [address] Referring PhysicianPediatric Pulmonology02/22/24 Flex Ramos MD [address] [facility] [address] [place] [address] Referring PhysicianGastroenterology02/22/24 Judit Lora MD [address]03 [facility] 2, [address] [place] [address] Referring PhysicianCardiology02/22/24Team MemberRelationshipSpecialtyStart Date End Vimal Burton MD [address] [place] [address] PCP - GeneralInternal Medicine06/10/25 Courtney Lockhart APRN [address] [place], [facility]06/16/25Team MemberRelationshipSpecialtyStart DateEnd Vimal Burton MD [address] [place] [address] PCP - GeneralInternal Medicine06/10/25 Courtney Lockhart APRN [address] [place] [address] [facility]06/16/25Team MemberRelationshipSpecialtyStart DateEnd Vimal Burton MD [address] [place] [address] PCP - GeneralInternal Medicine06/10/25 Courtney Lockhart APRN [address] [place] [address] [facility]06/16/25Te MemberRelationshipSpecialtyCommunity Hospital Vimal Burton MD [address] [place] [address] PCP - GeneralInternal Medicine06/10/25 Courtney Lockhart APRN [address] [place] [address] [facility]06/16/25Te MemberRelationshipSpecialtyCommunity Hospital Vimal Burton MD [address] [place] [address] PCP - GeneralInternal Medicine06/10/25 Courtney Lockhart APRN [address] [place] [address] [facility]06/16/25Te MemberRelationshipSpecialChildren[facility] Vimal Burton MD [address] [place] [address] PCP - GeneralInternal Medicine05/26/25 Saul Abdalla DO [facility] [address] [place] [address] Referring PhysicianOphthalmology02/22/24 Irina uDbose MD [address] [place] [address] Referring PhysicianPulmonary Disease02/22/24 Valdez Castro MD [address] [place] [address] Referring PhysicianPediatric Pulmonology02/22/24 Flex Ramos MD [address] [facility] [address] [place] [address] Referring PhysicianGastroenterology02/22/24 Judit Lora MD [address]03 [facility] 2, [address] [place] [address] Referring PhysicianCardiology02/22/24Team MemberRelationshipSpecialtyStart Date End Date Vimal Burton MD [address] [place] [address] PCP - GeneralInternal Medicine05/26/25 Saul Abdalla DO [address] [place] [address] Referring PhysicianOphthalmology02/22/24 Irina Dubose MD [address] [place] [address] Referring PhysicianPulmonary Disease02/22/24 Valdez Castro MD [address] [facility] [address] [place] [address] Referring PhysicianPediatric Pulmonology02/22/24 Flex Ramos MD [address] [place] [address] [address] [place] [address] Referring PhysicianGastroenterology02/22/24 Judit Lora MD 703 [facility] 2[address] [place] [address] Referring PhysicianCardiology02/22/24 Reason for Visit (unrecogniz ed section and content) ReasonCommentsSpirometrySpecialtyDiagnoses / ProceduresReferred By Contact Referred To [facility] Diagnoses ILD (interstitial lung disease) (HCC) Shortness of breath Procedures SPIROMETRY WITH DILATOR IF OBSTRUCTED BRNCDILAT RSPSE SPMTRY PRE&POST-BRNCDILAT ADMN eDe Leal, VICE PRESIDENT OF COMMUNICATIONS.FUR WEIGHER [address] [address] [id number] [place] [address] Referral IDStatusReasonStart DateExpiration DateVisits RequestedVisits [id number] Auto-Generated Referral [id number] / ProceduresReferred By ContactReferred To ContactRUSTIRATORY INSTITUTE Diagnoses ILD (interstitial lung disease) (HCC) Shortness of breath Procedures LUNG DIFFUSION CAPACITY (DLCO) DIFFUSING CAPACITY Dee Leal, VICE PRESIDENT OF COMMUNICATIONS.FUR WEIGHER [address] [address] Referral IDStatusReasonStart DateExpiration DateVisits RequestedVisits [id number] Auto-Generated Referral /[id number] Outside Medical RecordsReasonCommentsHome nebulizer orderReasonCommentsAppointmentReasonComments Follow UpReasonCommentsEstablish CareSob, fatigue,weaknessSpecialtyDiagnoses / ProceduresReferred By ContactReferred To Contact Diagnoses Shortness of breath Procedures ECG 12 Lead Judit Lora MD [address] [facility] [address] [place] [address] Referral IDStatusReasonStart DateExpiration DateVisits RequestedVisits [id number]/6/20245/6/[id number] AppointmentNEW PT, [place], ANY (STOJIC? - PT PREF HAZEL/NIKHIL)SpecialtyDiagnoses / Procedures Referred By ContactReferred To [facility] CenterIRAT[facility] SILT Diagnoses Bronchiectasis without complication (HCC) Procedures SPIROMETRY BASELINE ONLY SPMTRY W/VC EXPIRATORY MIRIAM W/WO MXML VOL VNTJ Irina Dubose MD [address] [place] [address] [place] [address] Referral IDStatusReasonNewton DateExpiration DateVisits RequestedVisits [id number] Auto-Generated Referral [id number] / ProceduresReferred By ContactReferred To [facility] CenterIR[facility] SILT Diagnoses Bronchiectasis without complication (HCC) Procedures LUNG DIFFUSION CAPACITY (DLCO) DIFFUSING CAPACITY Irina Dubose MD [address] [place] [address] [place] [address] Referral IDStatusReasonStcoffey DateExpiration DateVisits RequestedVisits [id number] Auto-Generated Referral [id number]iUtdarghtTdrxnoiqkx of Medical NecessityReasonCommentsRadiology NMSpecialtyDiagnoses / ProceduresReferred By ContactReferred To ContactCT IMAGING Diagnoses Interstitial pulmonary disease (HCC) Procedures CT CHEST WO IVCON DIAGNOSTIC COMPUTED TOMOGRAPHY THORAX W/O CNTRST Dee Leal, VICE PRESIDENT OF COMMUNICATIONS.FUR [employer]IGHER [address] [place] [address] [facility] [place] [address] Referral IDStatusReasonStart DateExpiration DateVisits RequestedVisits [id number] Auto-Generated Referral /[id number]odMnbfqbuaPaz PatientEpilepsyReason Comments6 mos ov rev labPt here for 6 month visit and review of labs.ReasonOnset DateCommentsRefill Lbjwqui90/26/2024ReasonCommentsMissed VVReasonCommentsRefill RequestReasonCommentsFollow UpEpilepsyReasonCommentsMedication QuestionReason Comments6 month follow upPt is being seen today for her 6 month follow up and managment of her chronic conditions. Pt had lab work done in preparations for todays visit, results and recommendations will be reviewed with them.Reason CommentsHospital Follow-upPt is being seen today to follow up on her stay at [facility] for acute bronchiectasis exacerbation due to human metapneumovirus from 03/14-03/15.ReasonCommentsEar ProblemCT TB 05/03/25ReasonCommentsHospital Follow-upReasonCommentsAbdominal PainDiarrheaReasonOnset DateCommentsRefill Wptfhru9005/29/2025ReasonCommentsEstablish CareGallbladder, [facility]reasonCommentsResultsCT abdomen/pelvis in chart.Back PainXray of back done 04/07 in chart. Pt is still complaining of back pain of middle to lower back. Extremity WeaknessLeft leg keeps wanting to go out on her and has the feeling of falling asleepReasonCommentsPreparations For SurgeryPACCReasonCommentsEar ProblemReasonCommentsPatient QuestionAppointmentReasonCommentsAnesthesia Consult ReasonCommentsLeg SwellingPt here today for bruising, swelling and knots in Rt lower leg. Pt had a cholecystectomy in Jul. Pt denies pain in the area with bruising and swelling, but is having pain in right hip radiating downboth legs. Pt is on Plavix FOR RECORDS PERTAINING TO PATIENTS WHO ARE [...] BE BASED ON THE PRIMARY CLINICAL RECORDS. [employer] provides no warranty or guarantee of the accuracy or completeness of information in this document.
== END 2025-08-31 13:58 | disposition home or self-care (01) ==
LOC: MAMMO 13:57
PROVIDERS: Visit Provider Specialist
DX: Z12.31 Encounter for screening mammogram for malignant neoplasm of breast (principal)
CPT/HCPCS: 77067